=== PATIENT | male | born 1970 | race Caucasian/White ===

== ENCOUNTER 2016-02-18 06:16 | Inpatient (IN) | payer OTHER ==
[~2016-02-18] VITALS: Ht 177.8 cm; Wt 106.3 kg
[2016-02-18] VITALS (25 sets, daily range): BP systolic 109–160; BP diastolic 64–90; PULSE 76–87; RESP 12–16; TEMP 97.9
[2016-02-18] MEDS ORDERED: ONDANSETRON 4 MG INJ IV STA (06:59)
[2016-02-18] MEDS ORDERED: BELLADONNA/PHENOBARBITAL TAB PO STA (06:59)
[2016-02-18] MEDS ORDERED: LIDOCAINE/MYLANTA 40 ML BTL PO STA (06:59)
[2016-02-18] MEDS ORDERED: SOD CHLORIDE 0.9% 1,000 ML IV STA (06:59)
[2016-02-18] MEDS ORDERED: morphine 4 MG/ML VIAL IV STA (06:59)
[2016-02-18] MEDS ORDERED: ROCURONIUM 50 MG INJ ONE (07:00)
[2016-02-18] MEDS ORDERED: ETOMIDATE 20 MG INJ ONE (07:00)
[2016-02-18 07:19] LABS: BASOPHIL # 0.3 10^3/ul (0.0-0.1); BASOPHILS % 2.1 % (0.0-2.0); EOSINOPHILS % 0.3 % (0.0-7.0); HEMATOCRIT 37.8 % (42.0-52.0); LYMPHOCYTES # 1.4 10^3/ul (0.8-2.9); LYMPHOCYTES % 10.1 % (15.0-51.0); MEAN CORPUSCULAR HEMOGLOBIN 25.4 pg (29.0-33.0); MEAN CORPUSCULAR HGB CONC 31.8 g/dl (32.0-37.0); MEAN CORPUSCULAR VOLUME 79.8 fl (82.0-101.0); MEAN PLATELET VOLUME 8.7 fl (7.4-10.4); MONOCYTE # 0.8 10^3/ul (0.3-0.9); MONOCYTES % 5.8 % (0.0-11.0); NEUTROPHIL # 11.6 10^3/ul (1.6-7.5); NEUTROPHILS % 81.7 % (39.0-77.0); PLATELET COUNT 237 10^3/UL (140-440); RED BLOOD COUNT 4.74 10^6/ul (4.70-6.10); UNCORRECTED WBC 14.1 10^3/ul (4.8-10.8); WHITE BLOOD COUNT 14.1 10^3/ul (4.8-10.8)
[2016-02-18 07:25] LABS: CONDITION 1; LH ANALYZER COMMENTS 1
[2016-02-18 07:31] LABS: PROTIME 13.2 Sec (12.2-14.2)
[2016-02-18 07:32] LABS: ALBUMIN 4.1 g/dl (3.3-4.9); PARTIAL THROMBOPLASTIN TIME 30.9 Sec (25.0-35.0); POTASSIUM 3.7 mmol/L (3.5-5.1)
[2016-02-18 07:35] LABS: ALBUMIN/GLOBULIN RATIO 1.2; CALCIUM 8.4 mg/dl (8.4-10.2); CREATININE 1.18 mg/dl (0.61-1.24); TOTAL PROTEIN 7.5 g/dl (6.1-8.1)
--- NOTE | 2016-02-18 07:38 | ERD ---
ER Documentation Chief Complaint Date/Time DATE: 02/18/16 TIME: 07:33 Chief Complaint ABD PAIN, ELEVATED BP, STATES HAS BEEN OUT OF BP MEDS HPI This is a 45-year-old male with a known history of hypertension. One year ago the patient was diagnosed with high blood pressure and placed on labetalol 100 mg twice a day and amlodipine 10 mg once daily. The patient indicates that 5 days ago he ran out of his antihypertensive medications. He does not have a primary care physician to refill his medicines. He denies a headache or changes in vision. He does indicate that 6 hours prior to arrival he developed a sudden onset of diffuse abdominal pain. He described the pain is cramping in sensation. There is no alleviating or exacerbating factors the pain. He has had a decreased appetite since the pain. The pain occurred 30 minutes after he ate salmon and rice. He denies any diarrhea or constipation. He is felt nauseous but denies any emesis. He has no chest pain or pressure that radiates to the neck arm back or jaw and he has no shortness of breath at rest or exertion. He denies polyuria polydipsia. ROS All systems reviewed and are negative except as per history of present illness. Allergies Allergies: Coded Allergies: No Known Allergy (Unverified , 02/18/16) PMhx/Soc Medical and Surgical Hx: pt denies Surgical Hx Hx Cardiac Disorders: Yes (htn) Hx Alcohol Use: No Hx Substance Use: No Hx Tobacco Use: No Smoking Status: Never smoker Physical Exam Vitals Vital Signs Date Time Temp Pulse Resp B/P Pulse Ox O2 Delivery O2 Flow Rate FiO2 02/18/16 09:59 69 182/116 02/18/16 09:53 72 19 174/102 99 Room Air 02/18/16 09:42 68 18 191/100 99 Room Air 02/18/16 09:34 75 17 186/120 100 Room Air 02/18/16 09:29 71 18 216/110 99 Room Air 02/18/16 09:24 71 17 205/120 100 Room Air 02/18/16 08:27 75 19 198/110 99 Room Air 02/18/16 06:29 98.0 76 17 253/129 99 Physical Exam Constitutional:Well-developed. Well-nourished. HEENT:Normocephalic. Atraumatic.Pupils were equal round reactive to light. Moist mucous membranes.No tonsillar exudates. Funduscopy exam showed sharp optic disc bilaterally and venous pulsations were present. Neck: No nuchal rigidity. No lymphadenopathy. No posterior cervical spine tenderness or step-offs. Respiratory: Not using accessory muscles of respiration.Lungs were clear to auscultation bilaterally. No rhonchi. No rales. No wheezing. Cardiovascular: Regular rate regular rhythm.No murmurs. No rubs were appreciated.S1, S2 normal. Distal pulses are palpable 2+ bilaterally. GI: Abdomen was soft. Nontender. Diffuse abdominal tenderness most prominent in the left lower quadrant. No pulsatile abdominal masses or bruits. No rebound. No guarding. Bowel sounds were present and normal. Muscle skeletal: Full range of motion of both the upper and lower extremities bilaterally.Normal muscle tone.No assymetrical calf tenderness or swelling. Skin: No petechia, no purpura. No lesions on the palms or the soles of the feet. No maculopapular rash. No diaphoresis NEURO: Patient was alert, awake, orientated x3.No facial droop. Gait observed and normal with no ataxia.Speech had regular rate and rhythm. No focal neurological deficits. Result Diagram: 02/18/16 0700 02/18/16 0700 Results 24 hrs Laboratory Tests Test 02/18/16 07:00 02/18/16 07:45 Activated Partial Thromboplast Time 30.9Sec Alanine Aminotransferase (ALT/SGPT) 20IU/L Albumin 4.1g/dl Albumin/Globulin Ratio 1.20 Alkaline Phosphatase 98IU/L Amylase Level 77U/L Anion Gap 12 Aspartate Amino Transf (AST/SGOT) 21IU/L Basophils # 0.310^3/ul Basophils % 2.1% Blood Morphology Comment Blood Urea Nitrogen 15mg/dl Calcium Level 8.4mg/dl Carbon Dioxide Level 31mmol/L Chloride Level 101mmol/L Creatinine 1.18mg/dl Direct Bilirubin 0.00mg/dl Eosinophils # 0.010^3/ul Eosinophils % 0.3% Globulin 3.40g/dl Glucose Level 136mg/dl Hematocrit 37.8% Hemoglobin 12.0g/dl INR International Normalized Ratio 1.00 Indirect Bilirubin 1.0mg/dl Lipase 52U/L Lymphocytes # 1.410^3/ul Lymphocytes % 10.1% Mean Corpuscular Hemoglobin 25.4pg Mean Corpuscular Hemoglobin Concent 31.8g/dl Mean Corpuscular Volume 79.8fl Mean Platelet Volume 8.7fl Monocytes # 0.810^3/ul Monocytes % 5.8% Neutrophils # 11.610^3/ul Neutrophils % 81.7% Nucleated Red Blood Cells # 0.010^3/ul Nucleated Red Blood Cells % 0.0/100WBC Platelet Count 11706^3/UL Potassium Level 3.7mmol/L Prothrombin Time 13.2Sec Prothrombin Time Ratio 1.0 Red Blood Count 4.7410^6/ul Red Cell Distribution Width 18.0% Sodium Level 140mmol/L Total Bilirubin 1.0mg/dl Total Protein 7.5g/dl Troponin I 0.026ng/ml White Blood Count 14.110^3/ul Urine Bilirubin NEGATIVE Urine Clarity CLEAR Urine Color LT. YELLOW Urine Glucose NEGATIVE% Urine Hemoglobin TRACE Urine Ketones NEGATIVE Urine Leukocyte Esterase NEGATIVE Urine Microscopic RBC NONE SEEN/HPF Urine Microscopic WBC NONE SEEN/HPF Urine Nitrite NEGATIVE Urine Specific Ernest 1.010 Urine Total Protein NEGATIVE Urine Urobilinogen 0.2 E.U./dL Urine pH 6.0 Current Medications Medications (Trade) Dose Ordered Sig/Jimmie Route PRN Reason Start Time Stop Time Status Last Admin Dose Admin Sodium Chloride (NS) 1,000 ml @ 1,000 mls/hr Q1H STAT IV 02/18/16 06:59 02/18/16 07:58 DC 02/18/16 07:11 Morphine Sulfate (morphine) 4 mg ONCE STAT IV 02/18/16 06:59 02/18/16 07:00 DC 02/18/16 07:12 Ondansetron HCl (Zofran Inj) 4 mg ONCE STAT IV 02/18/16 06:59 02/18/16 07:01 DC 02/18/16 07:11 Miscellaneous Medication (Gi Cocktail (2)) 40 ml ONCE STAT PO 02/18/16 06:59 02/18/16 07:01 DC 02/18/16 07:12 Belladonna/ Phenobarbital () 2 tab ONCE STAT PO 02/18/16 06:59 02/18/16 07:01 DC 02/18/16 07:12 Hydralazine HCl (Apresoline) 10 mg ONCE ONCE IV 02/18/16 08:00 02/18/16 08:01 DC 02/18/16 07:54 Iohexol 150 ml 150 ml STK-MED ONCE .ROUTE 02/18/16 07:49 02/18/16 07:50 DC Sodium Chloride (NS) 100 ml @ ud STK-MED ONCE .ROUTE 02/18/16 07:49 02/18/16 07:50 DC Labetalol HCl (Labetalol) 20 mg ONCE ONCE IV 02/18/16 09:00 02/18/16 09:01 DC 02/18/16 08:42 Labetalol HCl (Labetalol) 20 mg ONCE ONCE IV 02/18/16 09:00 02/18/16 09:01 DC 02/18/16 08:58 Labetalol HCl 20 mg 20 mg ONCE ONCE IV 02/18/16 09:00 02/18/16 09:01 DC 02/18/16 09:00 Esmolol HCl/ Sodium Chloride 250 ml @ 86.4 mls/hr ONCE STAT IV 02/18/16 08:55 02/18/16 11:48 02/18/16 09:17 Iohexol 100 ml @ ud STK-MED ONCE .ROUTE 02/18/16 08:57 02/18/16 08:58 DC Sodium Chloride 100 ml @ ud STK-MED ONCE .ROUTE 02/18/16 08:57 02/18/16 08:58 DC Sodium Chloride (NS) 1,000 ml @ 50 mls/hr Q20H IV 02/18/16 09:13 Ondansetron HCl (Zofran Inj) 4 mg Q6H PRN IV NAUSEA AND/OR VOMITING 02/18/16 09:30 Acetaminophen (Tylenol Supp) 650 mg Q4H PRN [place] PAIN LEVEL 1-3 OR FEVER 02/18/16 09:30 Morphine Sulfate (morphine) 2 mg Q4H PRN IV PAIN LEVEL 7-10 02/18/16 09:30 Lorazepam (Ativan) 1 mg Q2H PRN IV ANXIETY 02/18/16 09:30 Bisacodyl (Dulcolax Supp) 10 mg DAILY PRN [place] CONSTIPATION 02/18/16 09:30 Pantoprazole 40 mg 40 mg DAILY@06 IV 02/19/16 06:00 Esmolol HCl/ Sodium Chloride (Brevibloc) 250 ml @ 28.8 mls/hr TITRATE IV 02/18/16 09:30 Metoprolol Tartrate (Lopressor) 5 mg ONCE ONCE IV 02/18/16 10:00 02/18/16 10:01 DC 02/18/16 09:49 Procedures/MDM This patient presented to the emergency department with abdominal pain and was seen and evaluated by myself. My differential diagnosis included but was not limited to abdominal aortic aneurysm, appendicitis, pancreatitis, perforated peptic ulcer, perforated viscus, Boerhaaves syndrome or visceral pain such as diverticulitis, DKA, esophagitis, hepatitis or bowel obstruction. The patient was placed on a palliative senior np, continuous pulse oximetry, and IV access was established by nursing staff. The patient received intravenous morphine and Zofran. 12 Lead EKG tracing ordered and reviewed by myself showed: Normal sinus rhythm of 67 bpm and no arrhythmia. VA interval normal. QRS duration normal. No ST segment elevation. T-wave inversion in the lateral leads V6 No ST segment depression. This patient presented to the emergency department with severely elevated blood pressure in addition to his abdominal discomfort. My differential diagnosis included but was not limited to conditions that could end-organ damage such as acute coronary syndrome, acute pulmonary edema, aortic dissection, subarachnoid hemorrhage, intracerebral hemorrhage, cerebral infarction, withdrawal syndromes from beta blockers, or states of catecholamine excess such as pheochromocytoma or drug intoxication. I did obtain a CT scan of the abdomen given that he had abdominal pain. I spoke with the radiologist and reviewed the CT scan myself and the radiologist, Dr. Maguire, and I spoke at 8:29 AM. The patient had an acute dissection of the abdominal aorta that extended to the level of the infrarenal abdominal aorta. The patient had uncontrolled hypertensive with end-organ damage to suggest hypertensive emergency. The treatment goal was immediate reduction of the mean arterial blood pressure. The patient had been given IV labetalol and was placed on an esmolol drip. This was done in a controlled, graded manor, using improvement of the patient's condition as a guide. Dr. Means, the CV surgeon, kindly stated he will be consult on the case. He did request a CTA to be performed in order to rule out an ascending aortic dissection. The patients abdominal pain had resolved with IV morphine. CTA results are read for the radiologist and indicated the followin. 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 The largest diameter measures 4.5 cm. There is mild intramural hemorrhage of the aneurysm. 2. Cardiomegaly. Left ventricular hypertrophy. The patient will be admitted in serious condition to the intensive care unit under the care of the hospitalist with an anticipated stay of greater than 2 midnights. Critical Care: Time: 60 minutes Treatments/Evaluations: Close monitoring and treatment of unstable vital signs, cardiorespiratory, and neurologic status, while maintaining tight balance of fluid, respiratory, and cardiac interventions. 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
[2016-02-18 07:47] LABS: TROPONIN-I 0.026 ng/ml (0.00-0.12)
[2016-02-18] MEDS ORDERED: IOHEXOL 300MG/ML 150 ML BTL ONE (07:49)
[2016-02-18] MEDS ORDERED: SOD CHLORIDE 0.9% 100 ML ONE ×2 (07:49→08:57)
[2016-02-18] MEDS ORDERED: hydrALAzine 20 MG INJ IV ONE (08:00)
[2016-02-18 08:13] LABS: ADD UMIC YES; URINE BILIRUBIN (Dip) NEGATIVE (NEGATIVE); URINE BLOOD (Dip) TRACE (NEGATIVE); URINE COLOR LT. YELLOW (YELLOW); URINE GLUCOSE (Dip) NEGATIVE (NEGATIVE); URINE KETONES (Dip) NEGATIVE (NEGATIVE); URINE LEUKOCYTE ESTERASE (Dip) NEGATIVE (NEGATIVE); URINE NITRITE (Dip) NEGATIVE (NEGATIVE); URINE TOTAL PROTEIN (Dip) NEGATIVE (NEGATIVE); URINE UROBILINOGEN (Dip) 0.2 E.U./dL (0.1-1.0)
--- NOTE | 2016-02-18 08:34 | RADRPT ---
PROCEDURE: CT Abdomen and Pelvis with contrast. CLINICAL INDICATION: Abdominal pelvic pain. Hypertension. TECHNIQUE: CT scan of the abdomen and pelvis with contrast was performed on a multi-detector high- resolution CT scanner. The patient was scanned following the uncomplicated intravenous administrati on of 100 cc of Omnipaque 300. Coronal and sagittal reformatted images were obtained from the axial source images. Images were reviewed on a high-resolution PACS workstation. The total exam CTDI equa ls 16.85 mGy and the total exam DLP equals 996.76 mGy-cm. COMPARISON: None. FINDINGS: CT abdomen: The lung bases are remarkable for mild scarring and atelectasis within the lung bases bilaterally. The heart size is normal, with a minimal tiny pericardial effusion. Aortic dissection of the descen ding thoracic aorta is identified. There is enhancement of both the true lumen and false lumen of th e aortic dissection. Atelectasis is seen in the left lung base adjacent to the descending thoracic a [place]. The liver is normal in size and density without focal mass or intrahepatic biliary dilatation. The spleen is normal in size and homogeneous in density. The stomach is partially collapsed, but is andres ssly unremarkable. The pancreas as visualized is normal. The gallbladder and biliary tree are unre markable and there is no evidence for biliary dilatation. The adrenal glands are symmetric and norm al. The kidneys are symmetrically unremarkable as well. No renal calculus or obstructive uropathy or mass lesion is seen. Acute dissection of the abdominal aorta is identified extending down to the level of the infrarenal abdominal aorta. There is enhancement of the true lumen and false lumen of the aortic dissection. T here is no retroperitoneal lymphadenopathy. The jumana hepatis region is clear. The bowel and mesen mika, as visualized, are equally unremarkable. CT pelvis: The small bowel loops situated within the pelvis are unremarkable. The appendix is normal. The pel álvaro organs are normal. The pelvic sidewalls and inguinal regions are clear. The sigmoid colon and rectum are unremarkable. No mass, lymphadenopathy, or free fluid is seen. No acute inflammation is seen. The bladder is normal. The surrounding osseous structures are unremarkable. No osteolytic o r osteoblastic lesion is detected. IMPRESSION: 1. Acute aortic dissection of the visualized portions of the descending thoracic aorta and abdomina l aorta extending down to the level of the infrarenal abdominal aorta. 2. Otherwise, unremarkable CT scan of the abdomen and pelvis. Critical result was called to Dr. Avery in the ER at 8:29 a.m. on 02/18/2016. RPTAT: [id number] .Alessandro Maguire MD, Date Time Electronically viewed and signed by .Alessandro Maguire MD, on 02/18/2016 08:34 .B/
[2016-02-18 08:36] LABS: URINE RBCS NONE SEEN /HPF (0)
[2016-02-18] MEDS ORDERED: ESMOLOL 250 ML IV STA (08:55)
[2016-02-18] MEDS ORDERED: IOHEXOL 100 ML ONE (08:57)
[2016-02-18] MEDS ORDERED: LABETALOL HCL 20MG INJ IV ONE ×3 (09:00)
[2016-02-18] MEDS ORDERED: ONDANSETRON 4 MG INJ IV PRN (09:30)
[2016-02-18] MEDS ORDERED: ACETAMINOPHEN 650 MG SUPP PR PRN (09:30)
[2016-02-18] MEDS ORDERED: BISACODYL 10 MG SUPP PR PRN (09:30)
--- NOTE | 2016-02-18 09:53 | RADRPT ---
PROCEDURE: CT Thoracic Angiogram. CLINICAL INDICATION: Back pain/dissecting aneurysm of the abdominal aorta. TECHNIQUE: CT thoracic aortic angiogram and a CT scan of the chest with contrast was performed on the [employer] volumetric [address] scanner. The patient was scanned following the uncomplicated intraven ous administration of 100 cc of [id number] intravenous contrast. 2-D, 3-D coronal reformatted hamlet ges were obtained from the axial source images. Radiation dose: Total CTDIvol: 69.5 mGy. Total DLP: 516 mGy-cm. 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 The largest diameter measures 4.5 cm . There is mild intramural hemorrhage of the aneurysm. The aortic annulus measures 2.4 cm in diameter. The aortic sinuses of Valsalva measures 3.5 cm in diameter. The sinotubular junction measures 2.5 cm in diameter. The mid ascending aorta measures 3 cm in diameter. The higher ascending aorta measures 3.1 cm in diameter. The aortic arch measures 3.2 cm in diameter. The mid descending aorta measures 4.[address] chest: The lungs are clear. No focal opacification, effusion, pneumothorax, edema, or nodules are seen. T here is no acute infiltrate. The mediastinum is unremarkable without evidence for mass or lymphadenopathy. The vascular structur es of the mediastinum are normal in course and caliber. The heart size is enlarged without evidenc e for pericardial thickening or effusion. . There is left ventricular hypertrophy. There is no ca lcification of the coronary arteries. The axillary regions, subpectoral regions, and supraclavicular regions are all unremarkable. Imagin g obtained through the upper abdomen reveals no acute abnormality. The surrounding osseous structur es are unremarkable for mild degenerative spondylosis of the spine. No osteolytic or osteoblastic lesion is detected.. IMPRESSION: 1. 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 The largest diameter measures 4.5 cm. Th ere is mild intramural hemorrhage of the aneurysm. 2. Cardiomegaly. Left ventricular hypertrophy. 3. Critical finding was given to the ER physician, Dr. Avery, 09:49 a.m., 02/18/2016 RPTAT: GG .Blas Kline MD, MD Date Time Electronically viewed and signed by .Blas Kline MD, MD on 02/18/2016 09:53 .Y/
[2016-02-18] MEDS ORDERED: METOPROLOL 5 MG INJ IV ONE ×2 (10:00→10:30)
[2016-02-18] MEDS ORDERED: CLEVIDIPINE BUTYRATE 50 ML IV SCH (10:00)
[2016-02-18] MEDS: SOD CHLORIDE 0.9% 1,000 ML IV SCH (10:19)
[2016-02-18] MEDS ORDERED: NITROPRUSSIDE 50 MG in DEXTROSE 5% 248 ML IV STA (10:19)
--- NOTE | 2016-02-18 11:33 | HP ---
Date/Time of Note Date/Time of Note DATE: 02/18/16 TIME: 11:25 Assessment/Plan VTE Prophylaxis VTE Prophylaxis Intervention: SCD's Assessment/Plan Assessment/Plan 45 yo male with a past medical history essential hypertension who presents with abdominal pain. 1. Abdominal pain - 2/2 to dissection aortic aneurysm - place the patient in the ICU - consult vascular/CT surgery - IV antihypertensives to maintain systolic blood pressure below 140 and diastolic blood pressure less than 90. Monitor for acute changes/ 2. Hypertension essential - see # 1 3. Anemia - microcytic - check iron profile, stool occult blood - monitor for acute blood loss 4. Leukocytosis - reactive - monitor trend 5. GI ppx - protonix IV 6. DVT ppx - scds answered all of his questions. as per clinical course. this critical care note took greater than 1 hour to complete HPI/ROS Admit Date/Time Admit Date/Time 02/18/2016, 11:27 am Hx of Present Illness 45 yo male with a past medical history essential hypertension who presents with abdominal pain. The abdominal pain started abruptly, 8 hours ago, diffuse, 8/10 in intensity, sharp/shooting in nature, intermittent, with no alleviating factors. He denies any chest pain, but did have shortness of breath. Denies any nausea/vomiting/diarrhea/constipation, headaches, urinary irregularities, fevers /chills, direct trauma or other constitutional symptoms. ER Course: Patient had a CT abd/pelvis and CTA chest/thorax showing type B descending dissection - patient started on antihypertensives ROS 14 point review of systems completed, please refer to HPI for any positive findings PMH/Family/Social Past Medical History Medical History: hypertension Past Surgical History Past Surgical Hx: no surgical history Family History Significant Family History: heart disease (Mi father in 50's), hypertension ( brother) Social History Alcohol Use: none Smoking Status: Never smoker Drug Use: none Exam/Review of Systems Vital Signs Vitals Vital Signs Date Time Temp Pulse Resp B/P Pulse Ox O2 Delivery O2 Flow Rate FiO2 02/18/16 11:21 80 17 158/94 100 Room Air 02/18/16 06:29 98.0 Exam Exam Gen Jack: mild distress 2/2 abdominal pain, AAOx4 HEENT: NC/AT, PERRLA, EOMI, no pharyngeal erythema, no tonsillar exudates, no lymphadenopathy, no JVD, no carotid bruits NECK: supple, no thyromegaly THORAX: symmetrical, no obvious deformities CV: S1S2, RRR, II/ systolic murmur best heard over aortic area Lungs: CTAB no W/C/R/R Abd: soft, mild tenderness to deep palpation, non-distended, +BS EXT: no edema, no ecchymosis, no clubbing, FROM, good peripheral pulses Neuro: CN II-XII grossly intact, no focal deficits Psych: fair mood and affect Skin: C/D/I Labs Result Diagram: 02/18/16 0700 02/18/16 0700 Medications Medications Current Medications Sodium Chloride (NS) 1,000 ml @ 50 mls/hr Q20H IV Last administered on at 10:19; Admin Dose 50 MLS/HR; Start 02/18/16 at 09:13 Ondansetron HCl (Zofran Inj) 4 mg Q6H PRN IV NAUSEA AND/OR VOMITING; Start 02/18/16 at 09:30 Acetaminophen (Tylenol Supp) 650 mg Q4H PRN [place] PAIN LEVEL 1-3 OR FEVER; Start 02/18/16 at 09:30 Morphine Sulfate (morphine) 2 mg Q4H PRN IV PAIN LEVEL 7-10; Start 02/18/16 at 09:30 Lorazepam (Ativan) 1 mg Q2H PRN IV ANXIETY; Start 02/18/16 at 09:30 Bisacodyl (Dulcolax Supp) 10 mg DAILY PRN [place] CONSTIPATION; Start 02/18/16 at 09 :30 Pantoprazole 40 mg 40 mg DAILY@06 IV ; Start 02/19/16 at 06:00 Esmolol HCl/ Sodium Chloride (Brevibloc) 250 ml @ 28.8 mls/hr TITRATE IV ; Start 02/18/16 at 09:30 Procedures Procedures CTA thorax/chest IMPRESSION: 1. 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 The largest diameter measures 4.5 cm. There is mild intramural hemorrhage of the aneurysm. 2. Cardiomegaly. Left ventricular hypertrophy. CT abd/pelvis IMPRESSION: 1. Acute aortic dissection of the visualized portions of the descending thoracic aorta and abdominal aorta extending down to the level of the infrarenal abdominal aorta. 2. Otherwise, unremarkable CT scan of the abdomen and pelvis. TIFFANIE HEARD MD Feb 18, 2016 11:33
[2016-02-18 12:31] LABS: IRON 24 ug/dl (35-150)
[2016-02-18 12:41] LABS: TOTAL IRON BINDING CAPACITY 270 ug/dl (241-421)
[2016-02-18 13:03] LABS: THYROID STIMULATING HORMONE 2.51 MIU/L (0.465-4.680)
[2016-02-18 13:07] LABS: FERRITIN 53.1 ng/ml (17.9-464.0)
--- NOTE | 2016-02-18 14:53 | CONS ---
DATE OF ADMISSION: 02/18/2016 DATE OF CONSULTATION: 02/18/2016 REASON FOR CONSULTATION: Preoperative cardiac clearance. HISTORY OF PRESENT ILLNESS: The patient is a 45-year-old gentleman who comes in with acute onset of abdominal pain at around 6 a.m. on 02/18/2016, associated with shortness of breath. Denies dizzine ss, syncope or palpitation. Denies nausea, vomiting. Denies fever, chills, or rigors. The patient has history of hypertension and stopped taking his medication about 5 days ago since he had not ref illed. PAST MEDICAL HISTORY: 1. Hypertension. 2. No prior history of dyslipidemia, diabetes or myocardial infarction. SOCIAL HISTORY: Denies any smoking, alcohol, or recreational drug. ALLERGIES: NONE. CURRENT MEDICATIONS: Include: 1. Nitroprusside. 2. Protonix. REVIEW OF SYSTEMS: Unremarkable except that mentioned in the HPI. PHYSICAL EXAMINATION: VITAL SIGNS: Temperature is 98.4, heart rate of 75, blood pressure 137/71 mmHg, breathing at 19, sa turating at 100% on room air. GENERAL: Patient awake, alert, in no apparent distress. NECK: No JVD or carotid bruit. CARDIOVASCULAR: Regular rate and rhythm, no murmur, rub or gallop. LUNGS: Clear to auscultation. ABDOMEN: Soft. Bowel sounds are present. There is no organomegaly. EXTREMITIES: No pedal edema. Pedal pulses are felt bilaterally. DIAGNOSTIC STUDIES: 1. Review of 12-lead EKG shows sinus rhythm with a ventricular rate of 67 beats per minute with nor mal [place], normal QRS and normal QT intervals, with T-wave inversion in lead V6 and lead 1 in aVL and [address] of abdomen and pelvis with contrast shows acute aortic dissection of the descending aorta a nd abdominal aorta. 3. CTA shows a [place] type B dissecting aneurysm of the aorta extending from below the level of t he left subclavian artery, below the level of the diaphragm, the largest diameter being 4.5 cm with mild intra hemorrhage. LABORATORY DATA: WBC 14.1, hemoglobin 12, hematocrit 37.8 with a platelet of 237. Sodium 140, pota ssium 3.7, chloride 101, CO2 31, BUN 15, creatinine 1.18. Troponin x2 is negative. ASSESSMENT AND PLAN: A 45-year-old gentleman with a [place] type B dissecting aneurysm with hypert ensive urgency. Currently, the patient is hemodynamically stable. RECOMMENDATIONS: 1. Continue nitroprusside. 2. Awaiting CT surgery for repair. 3. Monitor the patient in ICU. 4. Echocardiogram has been ordered and is pending at the time of this dictation. Dictated By: ESTEFANIA ALLEN MD SR/EFRAIN Conf#: [id number] DID#: [id number]
--- NOTE | 2016-02-18 15:53 | CONS ---
DATE OF ADMISSION: 02/18/2016 DATE OF CONSULTATION: REASON FOR CONSULTATION: Aortic dissection. Thank you, Dr. Avery, for asking me to see this patient. HISTORY OF PRESENT ILLNESS: This is a 45-year-old male currently on hypertensive medications. He w as admitted because of severe abdominal pain, no chest pain, no shortness of breath. Subsequently h e had an abdominal CT scan which showed dissection of the visualized portion of the descending thora cic aorta and abdominal aorta, extending down into the level of the infrarenal abdominal aorta. 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 The patie nt's blood pressure was 220, was started on esmolol and subsequently nitroglycerin. Currently, his blood pressure is 97/57, pulse is 73, respirations 19, saturations 100. PAST MEDICAL HISTORY: Significant for hypertension, anemia, leukocytosis. PAST SURGICAL HISTORY: None. ALLERGIES: NONE. SOCIAL HISTORY: No smoking, drinking or drug use. MEDICATIONS: List reviewed. PHYSICAL: VITAL SIGNS: As above. CARDIOVASCULAR: Regular rate and rhythm, normal S1, S2. No murmurs, gallops or rubs. LUNGS: Clear. ABDOMEN: Soft. EXTREMITIES: palpable femoral pulses. LABORATORY VALUES: Hemoglobin 12, white count 14, platelet count 237. Normal coagulation factors a nd a creatinine of 1.18. IMPRESSION: Type B aortic dissection. The patient's blood pressure has come nicely under control u sing esmolol and nitroglycerin drip. RECOMMENDATIONS: At this time, we would continue blood pressure management, monitor vital signs and laboratory values in an intensive care unit setting. I discussed with the patient and Dr. Avery . Dictated By: KAYLYN ALVA/EFRAIN Conf#: [id number] DID#: [id number]
--- NOTE | 2016-02-18 16:22 | RADRPT ---
Echocardiogram Report Patient Name: ИРИНА HAIRSTON Gender: Male Date: 1970 Study Date: 18-Feb-2016 Radio News Writer: Location: E Ref. Physician: MARTÍN ALLEN Quality: Good Procedures: Transthoracic echocardiogram with complete 2D, M-Mode, and doppler examination. Indications: Aortic Dissection. 2D/M Mode Doppler Measurement Value Normal Ranges Measurement Value Normal Ranges LVIDd MM 5.1 cm AV Mean Philip 1.3 m/sec LVIDs MM 3.0 cm AV Mean PG 8.0 mmHg LVPW % MM 23 % AV Peak Philip 2.1 m/sec IVSd MM 1.6 cm AV Peak PG 17.0 mmHg IVS/LVPW MM 1.1 AV VTI 39.1 cm AoR Diam MM 3.1 cm MV E Peak Philip 0.1 m/sec LA/Ao MM 1.7 MV A Peak Philip 0.0 m/sec LA Dimen MM 5.2 cm MV E/A 1.5 LVIDd 2D 5.0 3.5 - 5.6 cm MV Decel Cameron 4 LVIDs 2D 2.5 2.1 - 4.1 cm MV E/A 1.5 LVPWd 2D 1.4 0.6 - 1.1 cm TR Peak Philip 1.8 m/sec LVPWs 2D 1.8 cm TR Peak PG 13.0 mmHg IVSd 2D 2.0 0.6 - 1.1 cm RVSP 18.0 mmHg AoR Diam 2D 3.3 2.0 - 3.7 cm LA/Ao 2D 1 0 - 1 LA Dimen 2D 4.4 2.3 - 4.0 cm Findings Left Ventricle: Hyperdynamic left ventricular systolic function. Moderate concentric left ventricular hypertrophy. Tissue Doppler/Mitral Doppler indices are consistent with impaired relaxation (Stage I diastolic dysfunction). Right Ventricle: Normal right ventricular size. Normal right ventricular systolic function. Left Atrium: There is mild enlargement of left atrium. LA Dimension4.40 cm. Right Atrium: The right atrium is normal in size. Mitral Valve: Normal appearance and function of the mitral valve with trace physiologic regurgitation. Aortic Valve: Aortic valve not well visualized. Trace aortic valve regurgitation. Tricuspid Valve: Normal appearance and function of the tricuspid valve with trace physiologic regurgitation. Estimated peak PA systolic pressure 18 mmHg. There is trace tricuspid regurgitation. Pulmonic Valve: Pulmonic valve not well visualized. There is mild pulmonic regurgitation. Pericardium: Small pericardial effusion. No echocardiographic evidence to suggest pericardial tamponade. Aorta: There is a dissection of the aorta limited to the descending aorta. Aortic arch is mildly dilated. Aortic arch 3.90 cm. IVC: Normal size and normal respiratory collapse consistent with normal right atrial pressure. Pulmonary Artery: Mild enlargement of the pulmonary artery. Conclusions 1.Hyperdynamic left ventricular systolic function. Estimated LVEF 65%. Moderate concentric left ventricular hypertrophy. Tissue Doppler/Mitral Doppler indices are consistent with impaired relaxation (Stage I diastolic dysfunction). 2.Normal right ventricular size. Normal right ventricular systolic function. 3.Normal appearance and function of the mitral valve with trace physiologic regurgitation. 4.Aortic valve not well visualized. Trace aortic valve regurgitation. 5.Normal appearance and function of the tricuspid valve with trace physiologic regurgitation. Estimated peak PA systolic pressure 18 mmHg. There is trace tricuspid regurgitation. 6.Small pericardial effusion with no cardiac tamponade physiology. 7.There is a dissection of the aorta limited to the descending aorta. Aortic arch is mildly dilated. Aortic arch 3.90 cm. 8.Mild enlargement of the pulmonary artery. 9.Recommend KIERSTEN. Electronically Signed By: Mratín Allen 18-Feb-2016 16:22:02 -0800 Patient Name: ИРИНА HAIRSTON Study Date: 18-Feb-2016 [id number]
[2016-02-18] MEDS: ESMOLOL 250 ML IV SCH ×5 (16:52→23:24)
[2016-02-18] MEDS ORDERED: CLEVIDIPINE BUTYRATE 100 ML IV SCH ×2 (18:30→19:00)
[2016-02-18] MEDS: CLEVIDIPINE BUTYRATE 100 ML IV SCH (20:16)
[2016-02-19] VITALS (91 sets, daily range): BP systolic 102–202; BP diastolic 49–115; PULSE 73–91; RESP 18–57
[2016-02-19] MEDS: ESMOLOL 250 ML IV SCH ×11 (00:58→23:19)
[2016-02-19] MEDS: CLEVIDIPINE BUTYRATE 100 ML IV SCH ×2 (02:29→05:31)
[2016-02-19 04:49] LABS: BASOPHIL # 0.3 10^3/ul (0.0-0.1); BASOPHILS % 2.1 % (0.0-2.0); EOSINOPHILS # 0.1 10^3/ul (0.0-0.5); EOSINOPHILS % 0.6 % (0.0-7.0); HEMATOCRIT 37.4 % (42.0-52.0); LYMPHOCYTES # 1.9 10^3/ul (0.8-2.9); LYMPHOCYTES % 11.5 % (15.0-51.0); MEAN CORPUSCULAR HEMOGLOBIN 25.3 pg (29.0-33.0); MEAN CORPUSCULAR HGB CONC 32.1 g/dl (32.0-37.0); MEAN CORPUSCULAR VOLUME 78.9 fl (82.0-101.0); MEAN PLATELET VOLUME 8.6 fl (7.4-10.4); MONOCYTE # 1.2 10^3/ul (0.3-0.9); MONOCYTES % 7.3 % (0.0-11.0); NEUTROPHIL # 13.2 10^3/ul (1.6-7.5); NEUTROPHILS % 78.5 % (39.0-77.0); PLATELET COUNT 249 10^3/UL (140-440); RED BLOOD COUNT 4.74 10^6/ul (4.70-6.10); RED CELL DISTRIBUTION WIDTH 18.4 % (11.5-14.5); UNCORRECTED WBC 16.8 10^3/ul (4.8-10.8); WHITE BLOOD COUNT 16.8 10^3/ul (4.8-10.8)
[2016-02-19 04:56] LABS: CONDITION 1; LH ANALYZER COMMENTS 1
[2016-02-19 04:58] LABS: ALBUMIN 3.8 g/dl (3.3-4.9)
[2016-02-19 04:59] LABS: POTASSIUM 3.3 mmol/L (3.5-5.1)
[2016-02-19 05:01] LABS: ALBUMIN/GLOBULIN RATIO 1.08; BILIRUBIN,INDIRECT 1.8 mg/dl (0-1.1); BILIRUBIN,TOTAL 1.8 mg/dl (0.2-1.3); CREATININE 1.44 mg/dl (0.61-1.24); TOTAL PROTEIN 7.3 g/dl (6.1-8.1)
[2016-02-19 05:02] LABS: CALCIUM 8.3 mg/dl (8.4-10.2)
[2016-02-19] MEDS: PANTOPRAZOLE 40 MG INJ IV SCH (06:01)
[2016-02-19] MEDS ORDERED: POTASSIUM CHLORIDE 250 ML IVPB ONE (06:30)
[2016-02-19] MEDS ORDERED: NITROPRUSSIDE 50 MG in DEXTROSE 5% 248 ML IV STA (06:53)
[2016-02-19] MEDS: SOD CHLORIDE 0.9% 1,000 ML IV SCH (07:45)
--- NOTE | 2016-02-19 11:34 | PN ---
Date/Time of Note Date/Time of Note DATE: 02/19/16 TIME: 11:25 Assessment/Plan VTE Prophylaxis VTE Prophylaxis Intervention: SCD's Lines/Catheters IV Catheter Type (from Nrs): Peripheral IV Assessment/Plan Chief Complaint/Hosp Course Assessment and plan 1. 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 Vascular surgeon is following. Patient still noted with hypertension controlled with nipride at this time. Follow up with cardiology recs. Hopeful transition off nipride. Continue to maintain systolic blood pressure less than 140 and diastolic less than 90. 2. Hypertensive urgency. We'll continue on antihypertensives. Hopeful transition off nipride. consider cardene drip instead 3. Iron deficiency anemia. We'll continue on iron supplement 4. Leukocytosis. Recurring. Remains afebrile. We'll follow up on blood culture 5. Hypokalemia. We will monitor and replete as needed 6. Acute kidney injury. Likely secondary to hemodynamics. We'll monitor renal panel. GERD prophylaxis: PPI DVT prophylaxis: SCDs Disposition and plan: On Nipride for now for uncontrolled hypertension. Titrate down as tolerated. Follow-up with cardiology recommendations. Continue ICU monitoring Discussed plan of care with Dr. Raymundo Critical care time: 30 minutes Problems: Subjective 24 Hr Interval Summary Free Text/Dictation No reports of abdominal pain at this time. Comfortable at present Exam/Review of Systems Vital Signs Vitals Vital Signs Date Time Temp Pulse Resp B/P Pulse Ox O2 Delivery O2 Flow Rate FiO2 02/19/16 11:00 81 19 137/69 100 Room Air 02/19/16 08:00 98.6 Intake and Output 02/18/16 02/18/16 02/19/16 15:00 23:00 07:00 Intake Total 1399.2 ml 2216.45 ml Output Total 1450 ml 600 ml 700 ml Balance -1450 ml 799.2 ml 1516.45 ml Exam General: No acute signs or symptoms of distress Eyes: pupils equal round, Anicteric sclera Neck: Supple nontender, no JVD Cardiac: S1, S2 auscultated, regular rhythm and rate Pulmonary: No coarse rhonchi or breathing auscultated GI: Abdomen soft nontender nondistended, bowel sounds active Extremities: No edema bilateral lower extremities Skin: Clean dry and intact Neurologic: Alert to person place and time and situation Results Result Diagram: 02/19/16 0436 02/19/16 0436 Results 24 hrs Laboratory Tests Test 02/18/16 15:20 02/18/16 21:30 02/19/16 04:36 Troponin I 0.021 0.092 Alanine Aminotransferase (ALT/SGPT) 29 Albumin 3.8 Albumin/Globulin Ratio 1.08 Alkaline Phosphatase 96 Anion Gap 11 Aspartate Amino Transf (AST/SGOT) 18 Basophils # 0.3 H Basophils % 2.1 H Blood Morphology Comment Blood Urea Nitrogen 16 Calcium Level 8.3 L Carbon Dioxide Level 26 Chloride Level 105 Creatinine 1.44 H Direct Bilirubin 0.00 Eosinophils # 0.1 Eosinophils % 0.6 Globulin 3.50 H Glucose Level 116 Hematocrit 37.4 L Hemoglobin 12.0 L Indirect Bilirubin 1.8 H Lymphocytes # 1.9 Lymphocytes % 11.5 L Mean Corpuscular Hemoglobin 25.3 L Mean Corpuscular Hemoglobin Concent 32.1 Mean Corpuscular Volume 78.9 L Mean Platelet Volume 8.6 Monocytes # 1.2 H Monocytes % 7.3 Neutrophils # 13.2 H Neutrophils % 78.5 H Nucleated Red Blood Cells # 0.0 Nucleated Red Blood Cells % 0.0 Platelet Count 249 Potassium Level 3.3 L Red Blood Count 4.74 Red Cell Distribution Width 18.4 H Sodium Level 139 Total Bilirubin 1.8 H Total Protein 7.3 White Blood Count 16.8 H Medications Medications Current Medications Sodium Chloride (NS) 1,000 ml @ 50 mls/hr Q20H IV Last administered on at 10:19; Admin Dose 50 MLS/HR; Start 02/18/16 at 09:13 Ondansetron HCl (Zofran Inj) 4 mg Q6H PRN IV NAUSEA AND/OR VOMITING; Start 02/18/16 at 09:30 Acetaminophen (Tylenol Supp) 650 mg Q4H PRN [place] PAIN LEVEL 1-3 OR FEVER; Start 02/18/16 at 09:30 Morphine Sulfate (morphine) 2 mg Q4H PRN IV PAIN LEVEL 7-10; Start 02/18/16 at 09:30 Lorazepam (Ativan) 1 mg Q2H PRN IV ANXIETY; Start 02/18/16 at 09:30 Bisacodyl (Dulcolax Supp) 10 mg DAILY PRN [place] CONSTIPATION; Start 02/18/16 at 09 :30 Pantoprazole 40 mg 40 mg DAILY@06 IV Last administered on 02/19/16at 06:01; Admin Dose 40 MG; Start 02/19/16 at 06:00 Esmolol HCl/ Sodium Chloride (Brevibloc) 250 ml @ 28.8 mls/hr TITRATE IV Last administered on 02/19/16at 10:30; Admin Dose 172.8 MLS/HR; Start 02/18/16 at 09: 30 REJI WADE Feb 19, 2016 11:34
--- NOTE | 2016-02-19 13:49 | CONS ---
Date/Time of Note Date/Time of Note DATE: 02/19/16 TIME: 13:40 Assessment/Plan Assessment/Plan Chief Complaint/Hosp Course Imp: 1.HTN emergency-NL EF by echo this admit 2.Aortic dissection-type B 3.abnl ecg-lateral TWI-negative troponin x 3 since admit 4.anxiety 5.ARF 6. Pericardial effusion by echo-small with NL EF Recc: -Tele in ICU -Contine esmolol/nipride IV -Will add IV diltiazem and follow HR/BP closely -Follow volume status closely -serial ecg's Problems: Consultation Date/Type/Reason Admit Date/Time Feb 18, 2016 at 09:14 Initial Consult Date 02/19/2016 Type of Consultation: cardiology Reason for Consultation HTN/Aortic Dissection Referring Provider: TIFFANIE HEARD MD Exam/Review of Systems Vital Signs Vitals Vital Signs Date Time Temp Pulse Resp B/P Pulse Ox O2 Delivery O2 Flow Rate FiO2 02/19/16 13:30 84 23 157/87 02/19/16 13:00 99 Room Air 02/19/16 12:00 99.0 Intake and Output 02/18/16 02/18/16 02/19/16 15:00 23:00 07:00 Intake Total 1399.2 ml 2216.45 ml Output Total 1450 ml 600 ml 700 ml Balance -1450 ml 799.2 ml 1516.45 ml Exam Review of Systems: CONSTITUTIONAL: No fevers, chills. PULMONARY: No sob CARDIOVASCULAR: No chest pain/palpitations GASTROINTESTINAL: No nausea/vomiting. GENITOURINARY: No hematuria/dysuria. MUSCULOSKELETAL: No myagias/arthalgias. PSYCHIATRIC: The patient denies depression. NEUROLOGIC: No weakness Constitutional: alert Psych: no complaints ENMT: mucosa pink and moist Neck: jvd (9cm water), supple Respiratory: clear to auscultation Cardiovascular: regular rate and rhythm Gastrointestinal: non-tender, soft Musculoskeletal: muscle tone (normal) Extremities: edema (none) Neurological: other (No focal deficits) Results Result Diagram: 02/19/16 0436 02/19/16 0436 Results 24 hrs Laboratory Tests Test 02/18/16 15:20 02/18/16 21:30 02/19/16 04:36 Troponin I 0.021 0.092 Alanine Aminotransferase (ALT/SGPT) 29 Albumin 3.8 Albumin/Globulin Ratio 1.08 Alkaline Phosphatase 96 Anion Gap 11 Aspartate Amino Transf (AST/SGOT) 18 Basophils # 0.3 H Basophils % 2.1 H Blood Morphology Comment Blood Urea Nitrogen 16 Calcium Level 8.3 L Carbon Dioxide Level 26 Chloride Level 105 Creatinine 1.44 H Direct Bilirubin 0.00 Eosinophils # 0.1 Eosinophils % 0.6 Globulin 3.50 H Glucose Level 116 Hematocrit 37.4 L Hemoglobin 12.0 L Indirect Bilirubin 1.8 H Lymphocytes # 1.9 Lymphocytes % 11.5 L Mean Corpuscular Hemoglobin 25.3 L Mean Corpuscular Hemoglobin Concent 32.1 Mean Corpuscular Volume 78.9 L Mean Platelet Volume 8.6 Monocytes # 1.2 H Monocytes % 7.3 Neutrophils # 13.2 H Neutrophils % 78.5 H Nucleated Red Blood Cells # 0.0 Nucleated Red Blood Cells % 0.0 Platelet Count 249 Potassium Level 3.3 L Red Blood Count 4.74 Red Cell Distribution Width 18.4 H Sodium Level 139 Total Bilirubin 1.8 H Total Protein 7.3 White Blood Count 16.8 H Medications Medications Current Medications Sodium Chloride (NS) 1,000 ml @ 50 mls/hr Q20H IV Last administered on at 10:19; Admin Dose 50 MLS/HR; Start 02/18/16 at 09:13 Ondansetron HCl (Zofran Inj) 4 mg Q6H PRN IV NAUSEA AND/OR VOMITING; Start 02/18/16 at 09:30 Acetaminophen (Tylenol Supp) 650 mg Q4H PRN [place] PAIN LEVEL 1-3 OR FEVER; Start 02/18/16 at 09:30 Morphine Sulfate (morphine) 2 mg Q4H PRN IV PAIN LEVEL 7-10; Start 02/18/16 at 09:30 Lorazepam (Ativan) 1 mg Q2H PRN IV ANXIETY; Start 02/18/16 at 09:30 Bisacodyl (Dulcolax Supp) 10 mg DAILY PRN [place] CONSTIPATION; Start 02/18/16 at 09 :30 Pantoprazole 40 mg 40 mg DAILY@06 IV Last administered on 02/19/16at 06:01; Admin Dose 40 MG; Start 02/19/16 at 06:00 Esmolol HCl/ Sodium Chloride (Brevibloc) 250 ml @ 28.8 mls/hr TITRATE IV Last administered on 02/19/16at 10:30; Admin Dose 172.8 MLS/HR; Start 02/18/16 at 09: 30 Ferrous Sulfate (Ferrous Sulfate (Ec)) 325 mg BID PO ; Start 02/19/16 at 21:00 JUNAID PAZ Feb 19, 2016 13:49
[2016-02-19] MEDS: LORAZEPAM 2 MG INJ IV PRN (13:51)
[2016-02-19] MEDS: DILTIAZEM-D5W 125MG/125ML DRIP 125 ML IV SCH ×2 (14:40→21:22)
[2016-02-19] MEDS: NITROPRUSSIDE 50 MG in DEXTROSE 5% 248 ML IV SCH ×2 (16:02→21:22)
--- NOTE | 2016-02-19 16:46 | PN ---
Date/Time of Note Date/Time of Note DATE: 02/19/16 TIME: 16:45 Assessment/Plan Lines/Catheters IV [facility]): Peripheral IV Assessment/Plan Chief Complaint/Hosp Course IMPRESSION: Type B aortic dissection. The patient's blood pressure has come nicely under control using esmolol and nitroglycerin drip. RECOMMENDATIONS: At this time, we would continue blood pressure management, monitor vital signs and laboratory values in an intensive care unit setting. I discussed with the patient and Dr. Lang Problems: Subjective 24 Hr Interval Summary Constitutional: improved Pain Control: mild Exam/Review of Systems Vital Signs Vitals Vital Signs Date Time Temp Pulse Resp B/P Pulse Ox O2 Delivery O2 Flow Rate FiO2 02/19/16 16:15 82 21 151/80 02/19/16 16:00 98.9 95 Room Air Intake and Output 02/18/16 02/18/16 02/19/16 15:00 23:00 07:00 Intake Total 1399.2 ml 2216.45 ml Output Total 1450 ml 600 ml 700 ml Balance -1450 ml 799.2 ml 1516.45 ml Exam ENMT: mucosa pink and moist, nl external ears & nose, nl lips & teeth, nl nasal mucosa & septum Neck: non-tender, supple Respiratory: clear to auscultation, normal air movement Cardiovascular: nl pulses, regular rate and rhythm Results Result Diagram: 02/19/16 0436 02/19/16 043 KAYLYN RADFORD MD Feb 19, 2016 16:46
[2016-02-19] MEDS: FERROUS SULFATE (EC) 325 MG TAB PO SCH (20:40)
[2016-02-20] VITALS (87 sets, daily range): BP systolic 108–180; BP diastolic 62–114; PULSE 67–85; RESP 18–31
[2016-02-20] MEDS: ESMOLOL 250 ML IV SCH ×15 (00:01→23:33)
[2016-02-20] MEDS: SOD CHLORIDE 0.9% 1,000 ML IV SCH ×2 (01:13→21:13)
[2016-02-20] MEDS: NITROPRUSSIDE 50 MG in DEXTROSE 5% 248 ML IV SCH ×5 (01:40→23:02)
[2016-02-20] MEDS: DILTIAZEM-D5W 125MG/125ML DRIP 125 ML IV SCH ×3 (04:31→21:07)
[2016-02-20 05:01] LABS: BASOPHIL # 0.6 10^3/ul (0.0-0.1); EOSINOPHILS % 0.1 % (0.0-7.0); HEMATOCRIT 33.5 % (42.0-52.0); HEMOGLOBIN 10.7 g/dl (14.0-18.0); LYMPHOCYTES # 1.5 10^3/ul (0.8-2.9); LYMPHOCYTES % 7.1 % (15.0-51.0); MEAN CORPUSCULAR HEMOGLOBIN 25.4 pg (29.0-33.0); MEAN CORPUSCULAR HGB CONC 31.8 g/dl (32.0-37.0); MEAN CORPUSCULAR VOLUME 79.8 fl (82.0-101.0); MEAN PLATELET VOLUME 8.7 fl (7.4-10.4); MONOCYTES % 9.4 % (0.0-11.0); NEUTROPHIL # 17.3 10^3/ul (1.6-7.5); NEUTROPHILS % 80.4 % (39.0-77.0); PLATELET COUNT 221 10^3/UL (140-440); RED CELL DISTRIBUTION WIDTH 17.8 % (11.5-14.5); UNCORRECTED WBC 21.5 10^3/ul (4.8-10.8); WHITE BLOOD COUNT 21.5 10^3/ul (4.8-10.8)
[2016-02-20 05:06] LABS: CONDITION 1; LH ANALYZER COMMENTS 1; SUSPECT 1
[2016-02-20 05:07] LABS: ALBUMIN 3.1 g/dl (3.3-4.9)
[2016-02-20 05:08] LABS: POTASSIUM 3.9 mmol/L (3.5-5.1)
[2016-02-20 05:10] LABS: BILIRUBIN,INDIRECT 1.7 mg/dl (0-1.1); BILIRUBIN,TOTAL 1.7 mg/dl (0.2-1.3); CREATININE 1.62 mg/dl (0.61-1.24); TOTAL PROTEIN 6.2 g/dl (6.1-8.1)
[2016-02-20] MEDS: PANTOPRAZOLE 40 MG INJ IV SCH (06:00)
[2016-02-20] MEDS: FERROUS SULFATE (EC) 325 MG TAB PO SCH ×2 (08:52→21:25)
--- NOTE | 2016-02-20 12:23 | PN ---
Date/Time of Note Date/Time of Note DATE: 02/20/16 TIME: 12:22 Assessment/Plan Lines/Catheters IV Catheter Type (from [facility]): Peripheral IV Assessment/Plan Chief Complaint/Hosp Course IMPRESSION: Type B aortic dissection. The patient's blood pressure has come nicely under control using esmolol and nitroglycerin drip. BP under better control RECOMMENDATIONS: At this time, we would continue blood pressure management, monitor vital signs and laboratory values in an intensive care unit setting. I discussed with the patient and Dr. Lang Problems: Subjective 24 Hr Interval Summary Constitutional: improved Pain Control: mild Exam/Review of Systems Vital Signs Vitals Vital Signs Date Time Temp Pulse Resp B/P Pulse Ox O2 Delivery O2 Flow Rate FiO2 02/20/16 12:00 72 02/20/16 07:00 28 131/76 99 Nasal Cannula 2.0 02/20/16 04:00 98.8 Intake and Output 02/19/16 02/19/16 02/20/16 15:00 23:00 07:00 Intake Total 2313.6 ml 2120.7 ml 1790.4 ml Output Total 350 ml 75 ml 500 ml Balance 1963.6 ml 2045.7 ml 1290.4 ml Exam ENMT: mucosa pink and moist, nl external ears & nose, nl lips & teeth, nl nasal mucosa & septum Neck: non-tender, supple Respiratory: clear to auscultation, normal air movement Cardiovascular: nl pulses, regular rate and rhythm Results Result Diagram: 02/20/16 0445 02/20/16 0445 KAYLYN RADFORD MD Feb 20, 2016 12:23
[2016-02-20] MEDS: LORAZEPAM 2 MG INJ IV PRN ×4 (14:27→21:19)
--- NOTE | 2016-02-20 14:37 | CONS ---
Date/Time of Note Date/Time of Note DATE: 02/20/16 TIME: 14:35 Assessment/Plan Assessment/Plan Additional Assessment/Plan 1.HTN emergency-NL EF by echo this admit - BP better - will initiate some po medications snow 2.Aortic dissection-type B - surgical team follows, no intervention planned now. 3.abnl ecg-lateral TWI-negative troponin x 3 since admit 4.anxiety- better now 5.ARF - avoid nephrotoxic meds 6. Pericardial effusion by echo-small with NL EF Consultation Date/Type/Reason Admit Date/Time Feb 18, 2016 at 09:14 Initial Consult Date Type of Consultation: cardiology Referring Provider: TIFFANIE HEARD MD 24 HR Interval Summary Free Text/Dictation No acute change - more alert - will add BP meds now. ROS: No fever, no chills, no nausea, no vomiting, no diarrhea/constipation No recent weight changes No chest pain, no PND, no orthopnea No dizziness, blurred vision No thirst, no heat or cold intolerance Exam/Review of Systems Vital Signs Vitals Vital Signs Date Time Temp Pulse Resp B/P Pulse Ox O2 Delivery O2 Flow Rate FiO2 02/20/16 12:30 73 22 108/66 91 Nasal Cannula 2.0 02/20/16 08:00 98.8 Intake and Output 02/19/16 02/19/16 02/20/16 15:00 23:00 07:00 Intake Total 2313.6 ml 2120.7 ml 1790.4 ml Output Total 350 ml 75 ml 500 ml Balance 1963.6 ml 2045.7 ml 1290.4 ml Exam General: WN/WD/NAD, AOx2-3 HEENT: Unicetric/atraumatic/EOMI (does not follow commands) NECK: JVD elevated, no thyromegaly Lymph: no lymphadenopathy HEART: regular with no S3, II/ systolic murmur at apex LUNGS: Coarse sounds ABD: soft, NT, ND, +BS : Intact Neuro: non focal SKIN: chronic changes EXT: trace edema Results Result Diagram: 02/20/1644402/20/16444 Results 24 hrs Laboratory Tests Test 02/20/16 04:45 Alanine Aminotransferase (ALT/SGPT) 27 Albumin 3.1 L Albumin/Globulin Ratio 1.00 Alkaline Phosphatase 75 Anion Gap 11 Aspartate Amino Transf (AST/SGOT) 12 L Basophils # 0.6 H Basophils % 3.0 H Blood Morphology Comment Blood Urea Nitrogen 18 Calcium Level 8.0 L Carbon Dioxide Level 24 Chloride Level 108 Creatinine 1.62 H Direct Bilirubin 0.00 Eosinophils # 0.0 Eosinophils % 0.1 Globulin 3.10 Glucose Level 135 Hematocrit 33.5 L Hemoglobin 10.7 L Indirect Bilirubin 1.7 H Lymphocytes # 1.5 Lymphocytes % 7.1 L Mean Corpuscular Hemoglobin 25.4 L Mean Corpuscular Hemoglobin Concent 31.8 L Mean Corpuscular Volume 79.8 L Mean Platelet Volume 8.7 Monocytes # 2.0 H Monocytes % 9.4 Neutrophils # 17.3 H Neutrophils % 80.4 H Nucleated Red Blood Cells # 0.0 Nucleated Red Blood Cells % 0.0 Platelet Count 221 Potassium Level 3.9 Red Blood Count 4.20 L Red Cell Distribution Width 17.8 H Sodium Level 139 Total Bilirubin 1.7 H Total Protein 6.2 # White Blood Count 21.5 #H Medications Medications Current Medications Sodium Chloride (NS) 1,000 ml @ 50 mls/hr Q20H IV Last administered on at 10:19; Admin Dose 50 MLS/HR; Start 02/18/16 at 09:13 Ondansetron HCl (Zofran Inj) 4 mg Q6H PRN IV NAUSEA AND/OR VOMITING; Start 02/18/16 at 09:30 Acetaminophen (Tylenol Supp) 650 mg Q4H PRN [place] PAIN LEVEL 1-3 OR FEVER; Start 02/18/16 at 09:30 Morphine Sulfate (morphine) 2 mg Q4H PRN IV PAIN LEVEL 7-10; Start 02/18/16 at 09:30 Lorazepam (Ativan) 1 mg Q2H PRN IV ANXIETY Last administered on 02/20/16at 14:27 ; Admin Dose 1 MG; Start 02/18/16 at 09:30 Bisacodyl (Dulcolax Supp) 10 mg DAILY PRN [place] CONSTIPATION; Start 02/18/16 at 09 :30 Pantoprazole 40 mg 40 mg DAILY@06 IV Last administered on 02/20/16at 06:00; Admin Dose 40 MG; Start 02/19/16 at 06:00 Esmolol HCl/ Sodium Chloride (Brevibloc) 250 ml @ 28.8 mls/hr TITRATE IV Last administered on 02/20/16at 14:34; Admin Dose 172.8 MLS/HR; Start 02/18/16 at 09: 30 Ferrous Sulfate 325 mg 325 mg BID PO Last administered on 02/20/16at 08:52; Admin Dose 325 MG; Start 02/19/16 at 21:00 Diltiazem HCl 125 ml @ 5 mls/hr TITRATE IV Last administered on 02/20/16at 11:43 ; Admin Dose 15 MLS/HR; Start 02/19/16 at 14:00 Sodium Nitroprusside/ Dextrose (Nipride/D5W) 250 ml @ 8.64 mls/hr TITRATE IV Last administered on 02/20/16 14:32; Admin Dose 57.6 MLS/HR; Start 02/19/16 at 15:30 DERRICK DREW MD Feb 20, 2016 14:37
--- NOTE | 2016-02-20 15:16 | RADRPT ---
Vent Rate: 86 bpm RR Interval: [address] Interval: 160 msec QRS Duration: 90 msec QT Interval: 384 msec QTC Interval: 459 msec P-R-T [place]: 63 - 26 - 0 degrees Normal sinus rhythm Left ventricular hypertrophy with repolarization abnormality Abnormal ECG Electronically Signed By: Uday Romero [id number]
--- NOTE | 2016-02-20 15:18 | RADRPT ---
Vent Rate: 68 bpm RR Interval: 0 msec NV Interval: 176 msec QRS Duration: 94 msec QT Interval: 416 msec QTC Interval: 442 msec P-R-T [place]: 62 - 49 - 0 degrees Normal sinus rhythm Left ventricular hypertrophy with repolarization abnormality Abnormal ECG Electronically Signed By: Uday Romero [id number]
--- NOTE | 2016-02-20 15:47 | PN ---
Date/Time of Note Date/Time of Note DATE: 02/20/16 TIME: 15:40 Assessment/Plan VTE Prophylaxis VTE Prophylaxis Intervention: SCD's Lines/Catheters IV Catheter Type (from Nrs): Peripheral IV Assessment/Plan Chief Complaint/Hosp Course Assessment and plan 1. 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 Vascular surgeon is following. Patient still noted with hypertension controlled with nipride at this time. Follow up with cardiology recs. Hopeful transition off nipride. Continue to maintain systolic blood pressure less than 140 and diastolic less than 90. 2. Hypertensive urgency. We'll continue on antihypertensives drips. Start oral antihypertensives per cardiology 3. Iron deficiency anemia. We'll continue on iron supplement 4. Leukocytosis. Recurring. Remains afebrile. We'll follow up on blood culture 5. Hypokalemia. We will monitor and replete as needed 6. Acute kidney injury. Likely secondary to hemodynamics. We'll monitor renal panel. GERD prophylaxis: PPI DVT prophylaxis: SCDs Disposition and plan: Titrate down antihypertensive drips as tolerated. On oral BP meds. Monitor for improvement of hypertension. Cont ICU monitoring Discussed plan of care with Dr. Raymundo Critical care time: 30 minutes Problems: Subjective 24 Hr Interval Summary Free Text/Dictation no acute distress noted. reports less abdominal pain. Appears comfortable at this time Exam/Review of Systems Vital Signs Vitals Vital Signs Date Time Temp Pulse Resp B/P Pulse Ox O2 Delivery O2 Flow Rate FiO2 02/20/16 15:15 73 28 139/88 97 02/20/16 15:00 Nasal Cannula 2.0 02/20/16 12:45 98.8 Intake and Output 02/19/16 02/19/16 02/20/16 14:59 22:59 06:59 Intake Total 2256.0 ml 2155.7 ml 1790.4 ml Output Total 350 ml 75 ml 500 ml Balance 1906.0 ml 2080.7 ml 1290.4 ml Exam General: No acute signs or symptoms of distress Eyes: pupils equal round, Anicteric sclera Neck: Supple nontender, no JVD Cardiac: S1, S2 auscultated, regular rhythm and rate Pulmonary: No coarse rhonchi or breathing auscultated GI: Abdomen soft nontender nondistended, bowel sounds active Extremities: No edema bilateral lower extremities Skin: Clean dry and intact Neurologic: Alert to person place and time and situation Results Result Diagram: 02/20/165 02/20/165 Results 24 hrs Laboratory Tests Test 02/20/16 04:45 Alanine Aminotransferase (ALT/SGPT) 27 Albumin 3.1 L Albumin/Globulin Ratio 1.00 Alkaline Phosphatase 75 Anion Gap 11 Aspartate Amino Transf (AST/SGOT) 12 L Basophils # 0.6 H Basophils % 3.0 H Blood Morphology Comment Blood Urea Nitrogen 18 Calcium Level 8.0 L Carbon Dioxide Level 24 Chloride Level 108 Creatinine 1.62 H Direct Bilirubin 0.00 Eosinophils # 0.0 Eosinophils % 0.1 Globulin 3.10 Glucose Level 135 Hematocrit 33.5 L Hemoglobin 10.7 L Indirect Bilirubin 1.7 H Lymphocytes # 1.5 Lymphocytes % 7.1 L Mean Corpuscular Hemoglobin 25.4 L Mean Corpuscular Hemoglobin Concent 31.8 L Mean Corpuscular Volume 79.8 L Mean Platelet Volume 8.7 Monocytes # 2.0 H Monocytes % 9.4 Neutrophils # 17.3 H Neutrophils % 80.4 H Nucleated Red Blood Cells # 0.0 Nucleated Red Blood Cells % 0.0 Platelet Count 221 Potassium Level 3.9 Red Blood Count 4.20 L Red Cell Distribution Width 17.8 H Sodium Level 139 Total Bilirubin 1.7 H Total Protein 6.2 # White Blood Count 21.5 #H Medications Medications Current Medications Sodium Chloride (NS) 1,000 ml @ 50 mls/hr Q20H IV Last administered on at 10:19; Admin Dose 50 MLS/HR; Start 02/18/16 at 09:13 Ondansetron HCl (Zofran Inj) 4 mg Q6H PRN IV NAUSEA AND/OR VOMITING; Start 02/18/16 at 09:30 Acetaminophen (Tylenol Supp) 650 mg Q4H PRN [place] PAIN LEVEL 1-3 OR FEVER; Start 02/18/16 at 09:30 Morphine Sulfate (morphine) 2 mg Q4H PRN IV PAIN LEVEL 7-10; Start 02/18/16 at 09:30 Lorazepam (Ativan) 1 mg Q2H PRN IV ANXIETY Last administered on 02/20/16at 14:27 ; Admin Dose 1 MG; Start 02/18/16 at 09:30 Bisacodyl (Dulcolax Supp) 10 mg DAILY PRN [place] CONSTIPATION; Start 02/18/16 at 09 :30 Pantoprazole 40 mg 40 mg DAILY@06 IV Last administered on 02/20/16at 06:00; Admin Dose 40 MG; Start 02/19/16 at 06:00 Esmolol HCl/ Sodium Chloride (Brevibloc) 250 ml @ 28.8 mls/hr TITRATE IV Last administered on 02/20/16at 14:34; Admin Dose 172.8 MLS/HR; Start 02/18/16 at 09: 30 Ferrous Sulfate 325 mg 325 mg BID PO Last administered on 02/20/16at 08:52; Admin Dose 325 MG; Start 02/19/16 at 21:00 Diltiazem HCl 125 ml @ 5 mls/hr TITRATE IV Last administered on 02/20/16at 11:43 ; Admin Dose 15 MLS/HR; Start 02/19/16 at 14:00 Sodium Nitroprusside/ Dextrose (Nipride/D5W) 250 ml @ 8.64 mls/hr TITRATE IV Last administered on 02/20/16at 14:32; Admin Dose 57.6 MLS/HR; Start 02/19/16 at 15:30 Carvedilol (Coreg) 12.5 mg BID NGT ; Start 02/20/16 at 21:00 Amlodipine Besylate (Norvasc) 5 mg BID PO ; Start 02/20/16 at 21:00 REJI WADE Feb 20, 2016 15:47
[2016-02-20] MEDS: morphine 2 MG INJ IV PRN ×2 (15:50→21:19)
--- NOTE | 2016-02-20 16:54 | RADRPT ---
PROCEDURE: Renal Ultrasound CLINICAL INDICATION: Renal insufficiency. TECHNIQUE: Evaluation of the kidneys and bladder was performed as well with spears scale and color and Doppler evaluation using a curved array transducer. The images were reviewed on a high-resoluti on PACS workstation. COMPARISON: CT abdomen pelvis 02/18/2016 FINDINGS: The kidneys are well visualized. There is an 8 mm echogenic focus in the lower pole of the right kid jace most consistent with a small angiomyolipoma. When compared to recent CT, there is suggestion of a fat-containing lesion which is too small to characterize. There is no hydronephrosis. The right kidney measures 11.0 cm in length. The left kidney measures 11.5 cm in length. No perinephric f luid collection is seen. The bladder is within normal limits. IMPRESSION: 1. 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 There is a small lesion in this region on CT which is too small to accurately characterize. Recommend 6-month follow-up to confirm stability. 2. Otherwise unremarkable renal ultrasound. RPTAT: KK .Ronni Mota MD, Date Time Electronically viewed and signed by .Ronni Mota MD, MD on 02/20/2016 16:54 .B/
--- NOTE | 2016-02-20 20:02 | CONS ---
DATE OF ADMISSION: 02/18/2016 DATE OF CONSULTATION: 02/20/2016 REASON FOR CONSULTATION: Acute kidney injury. REFERRING PHYSICIAN: Tiffanie Mosher MD TYPE OF CONSULTATION: Nephrology. HISTORY OF PRESENT ILLNESS: This is a 45-year-old male, who has a past medical history of hypertens ion, iron-deficiency anemia, a history of previous leukocytosis, who presented with abdominal pain s econdary to dissection of aortic aneurysm. The patient had hypertension which required multiple blo od pressure drips in the ICU. He presented with a creatinine of 1.1, which bumped up to 1.6 today, so renal has been consulted for acute kidney injury. REVIEW OF SYSTEMS: As per HPI. PAST MEDICAL HISTORY: Hypertension, type B aortic aneurysm. SOCIAL HISTORY: No smoking, alcohol, recreational drug use. FAMILY HISTORY: Noncontributory. PHYSICAL EXAMINATION VITAL SIGNS: Temperature ____, heart rate is 72, respiration 23, blood pressure 128/74, saturation a 91% on 2 L nasal cannula. GENERAL: Awake, alert, in no distress. HEENT: Normal. Oropharynx clear. NECK: Supple. No JVD, no lymphadenopathy. LUNGS: Clear to auscultation. No crackles, no wheezes. HEART: S1, S2, with regular rhythm; no murmur. ABDOMEN: Soft, nontender, nondistended. Bowel sounds are present. EXTREMITIES: No clubbing, cyanosis, edema. NEUROLOGICAL: Nonfocal, intact. PSYCHIATRIC: Appropriate affect and mood. LABORATORY DATA AND DIAGNOSTIC IMAGING 1. WBC 21.5, hemoglobin 10.7, platelet count 221, Sodium 139, potassium 3.9, chloride 108, bicarbon ate 24, BUN 18, creatinine 1. 6, glucose 135, calcium 8, albumin is 3.1, total bilirubin is 1.79. H is urinalysis negative. 2. A PT 13.2, PTT 30.9, INR 1. 3. A CT chest angiogram shows [place] type B dissecting aneurysm of the aorta, beginning below the level of the left subclavian artery and extending below the level of the diaphragm. The largest di ameter 4.5 cm. There is intramural hemorrhage of the aneurysm. 4. Sodium 139, potassium 3.9, chloride 108, bicarbonate 24, BUN 18, creatinine 1.6, glucose 135, ca lcium 8. IMPRESSION This is a 45-year-old male with: 1. Acute kidney injury, likely secondary to acute tubular necrosis from contrast-induced nephropath y and also secondary to ischemic acute tubular necrosis from aortic dissection. 2. A type B [place] aortic dissection. 3. Hypertensive emergency on multiple drips. PLAN 1. Thank you, Dr. Tiffanie Mosher, for this consultation. The present creatinine has been bumped to 1.6. I will order the patient's renal ultrasounds to assess for kidney size and to rule out hydrone phrosis. 2. Currently, patient is on a nitroprusside drip, ____ and also on a Cardizem drip. So I will cont inue him on this. 3. Agree with IV fluid hydration at 50 mL/hr. 4. Protonix for GI prophylaxis and SCDs for DVT prophylaxis. 5. Patient currently seen in the ICU and will be followed up along with the hospitalist service. Dictated By: MOSES HARRIS MD KP/NTS Conf#: [id number] DID#: [id number] CC: TIFFANIE MOSHER MD;*EndCC*
[2016-02-20 20:16] LABS: AADO2 Arterial 105.9 mmHg (7.0-24.0); Allen Test ACCEPTAB; Arterial Base Excess -2.7 mmol/L (-3.0-3); Arterial COHb 0.3 % (0.0-3.0); Arterial Fraction of Oxyhgb 93.6 % (93.0-99.0); Arterial HCO3 20.9 mmol/L (22.0-26.0); Arterial MetHb 0.2 % (0.0-1.5); Arterial Total Hemglobin 11.7 g/dl (12.0-18.0); MODE NASAL CANNULA
[2016-02-20] MEDS: AMLODIPINE 5 MG TAB PO SCH (21:19)
[2016-02-20] MEDS ORDERED: VANCOMYCIN IV PER PHARMACY XX SCH (22:30)
[2016-02-20] MEDS: MINOXIDIL 2.5 MG TAB PO SCH (22:53)
[2016-02-20] MEDS ORDERED: VANCOMYCIN 2 GM in SOD CHLORIDE 0.9% 500 ML IVPB ONE (23:00)
[2016-02-21] VITALS (103 sets, daily range): BP systolic 86–217; BP diastolic 43–137; PULSE 54–101; RESP 16–40; Ht 177.8 cm; Wt 106.3 kg
[2016-02-21] MEDS: ESMOLOL 250 ML IV SCH ×9 (01:01→23:21)
[2016-02-21] MEDS: LORAZEPAM 2 MG INJ IV PRN ×3 (01:55→13:57)
[2016-02-21] MEDS: morphine 2 MG INJ IV PRN ×2 (02:02→09:35)
[2016-02-21] MEDS: NITROPRUSSIDE 50 MG in DEXTROSE 5% 248 ML IV SCH ×4 (04:02→17:37)
[2016-02-21] MEDS: PANTOPRAZOLE 40 MG INJ IV SCH (05:36)
[2016-02-21 06:16] LABS: HEMATOCRIT 32.1 % (42.0-52.0); HEMOGLOBIN 10.4 g/dl (14.0-18.0); MEAN CORPUSCULAR HGB CONC 32.3 g/dl (32.0-37.0); MEAN CORPUSCULAR VOLUME 80.4 fl (82.0-101.0); MEAN PLATELET VOLUME 9.4 fl (7.4-10.4); PLATELET COUNT 214 10^3/UL (140-440); RED BLOOD COUNT 3.99 10^6/ul (4.70-6.10); UNCORRECTED WBC 23.3 10^3/ul (4.8-10.8); WHITE BLOOD COUNT 23.3 10^3/ul (4.8-10.8)
[2016-02-21 06:21] LABS: ALBUMIN 3.1 g/dl (3.3-4.9)
[2016-02-21 06:22] LABS: POTASSIUM 3.9 mmol/L (3.5-5.1)
[2016-02-21 06:23] LABS: CONDITION 1; LH ANALYZER COMMENTS 1; SUSPECT 1
[2016-02-21 06:24] LABS: BILIRUBIN,INDIRECT 1.1 mg/dl (0-1.1); BILIRUBIN,TOTAL 1.1 mg/dl (0.2-1.3); CREATININE 1.35 mg/dl (0.61-1.24)
[2016-02-21 06:25] LABS: ALBUMIN/GLOBULIN RATIO 0.93; CALCIUM 8.2 mg/dl (8.4-10.2); TOTAL PROTEIN 6.4 g/dl (6.1-8.1)
[2016-02-21] MEDS: hydrALAzine 20 MG INJ IV PRN (07:49)
[2016-02-21] MEDS: AMLODIPINE 5 MG TAB PO SCH ×2 (09:00→21:36)
[2016-02-21] MEDS ORDERED: IPRATROPIUM (NEB) 0.5 MG/2.5 ML AMP HHN PRN (09:00)
[2016-02-21] MEDS: MINOXIDIL 2.5 MG TAB PO SCH ×2 (09:00→21:38)
[2016-02-21] MEDS: FERROUS SULFATE (EC) 325 MG TAB PO SCH ×2 (09:00→21:36)
[2016-02-21 09:43] LABS: AADO2 Arterial 583.7 mmHg (7.0-24.0); Allen Test ACCEPTAB; Arterial Base Excess -5.2 mmol/L (-3.0-3); Arterial COHb 1.2 % (0.0-3.0); Arterial Fraction of Oxyhgb 95.5 % (93.0-99.0); Arterial HCO3 19.8 mmol/L (22.0-26.0); Arterial MetHb 0.4 % (0.0-1.5); Arterial Total Hemglobin 12.9 g/dl (12.0-18.0); MODE MASK - NRB
--- NOTE | 2016-02-21 09:46 | RADRPT ---
PROCEDURE: XR Chest. CLINICAL INDICATION: Dyspnea TECHNIQUE: Chest AP portable. COMPARISON: CTA a 02/18/2016 FINDINGS: The mediastinal structures are unremarkable. There is mild cardiomegaly. The pulmonary vascularity is normal. There are new nodular consolidations involving the right lung, most marked in the right upper lobe (pneumonia). The pleural spaces are unremarkable. The axial skeleton is unremarkable. IMPRESSION: New nodular consolidations involving the right lung, most marked in the right upper lobe (query pneu monia) RPTAT: HGDB .Kilo Wilburn MD, MD Date Time Electronically viewed and signed by .Kilo Wilburn MD, on 02/21/2016 09:46 .B/
[2016-02-21 09:49] LABS: EOSINOPHILS # 0.2 10^3/ul (0.0-0.5); LYMPHOCYTES # 1.2 10^3/ul (0.8-2.9); MONOCYTE # 2.1 10^3/ul (0.3-0.9); NEUTROPHIL # 19.8 10^3/ul (1.6-7.5)
--- NOTE | 2016-02-21 11:07 | CONS ---
Date/Time of Note Date/Time of Note DATE: 02/21/16 TIME: 11:02 Assessment/Plan Assessment/Plan Chief Complaint/Hosp Course Imp: 1.HTN emergency-NL EF by echo this admit-remains uncontrolled on esmolol/nipride 2.Aortic dissection-type B 3.abnl ecg-lateral TWI-negative troponin x 3 since admit 4.anxiety 5.ARF 6. Pericardial effusion by echo-small with NL EF Recc: -Tele in ICU -Contine esmolol/nipride IV and will start nicardipine -Follow volume status closely -serial ecg's -PO anti-hypertensives as possible -ongoing surgical follow-up Problems: Consultation Date/Type/Reason Admit Date/Time Feb 18, 2016 at 09:14 Initial Consult Date 02/19/2016 Type of Consultation: cardiology Reason for Consultation Aortic dissection/hypertension Referring Provider: TIFFANIE HEARD MD Exam/Review of Systems Vital Signs Vitals Vital Signs Date Time Temp Pulse Resp B/P Pulse Ox O2 Delivery O2 Flow Rate FiO2 02/21/16 10:00 96 26 170/104 99 Non Rebreather 15.0 02/21/16 08:00 99.4 02/20/16 20:49 31 Intake and Output 02/20/16 02/20/16 02/21/16 15:00 23:00 07:00 Intake Total 180 ml 3631.0 ml 1883.2 ml Output Total 860 ml 725 ml 510 ml Balance -680 ml 2906.0 ml 1373.2 ml Exam Review of Systems: CONSTITUTIONAL: No fevers, chills. PULMONARY: No sob CARDIOVASCULAR: No chest pain/palpitations GASTROINTESTINAL: No nausea/vomiting. GENITOURINARY: No hematuria/dysuria. MUSCULOSKELETAL: No myagias/arthalgias. PSYCHIATRIC: The patient denies depression. NEUROLOGIC: confused Constitutional: alert Psych: no complaints Head: normocephalic ENMT: mucosa pink and moist Neck: jvd (9 cm water), supple Respiratory: diminished breath sounds (at bases/B) Cardiovascular: regular rate and rhythm Gastrointestinal: non-tender, soft Musculoskeletal: muscle tone (normal) Extremities: edema (none) Neurological: confused Results Result Diagram: 02/21/16 0533 02/21/16 0533 Results 24 hrs Laboratory Tests Test 12/6/16 18:36 02/21/16 05:33 02/21/16 08:43 Arterial Blood HCO3 20.9 L 19.8 L Arterial Blood Base Excess -2.7 -5.2 L Arterial Blood Oxygen Saturation 94.1 L 97.1 Jovanny Test ACCEPTAB ACCEPTAB Arterial Blood Gas Puncture Site Left Radial Right Radial Arterial Blood Carboxyhemoglobin 0.3 1.2 Arterial Blood Date Drawn 02/20/2016 8:00:15 PM 02/21/2016 9:00:00 AM Arterial Blood Methemoglobin 0.2 0.4 Arterial Blood pCO2 (Temp correct) 32.4 L 36.8 Arterial Blood pH (Temp corrected) 7.427 7.348 L Arterial Blood pO2 (Temp corrected) 69.9 L 92.5 Blood Gas A-a O2 Differential 105.9 H 583.7 H Blood Gas Modality NASAL CANNULA MASK - NRB Blood Gas Notified Time 02/20/2016 8:16:26 PM 02/21/2016 9:42:00 AM Blood Gas Notified Whom UP JLD Blood Gas Specimen Source Blood arterial Blood arterial Blood Gas Temperature 37.0 37.0 FiO2 30.0 100.0 Oxyhemoglobin Percent 93.6 95.5 Total Hemoglobin 11.7 L 12.9 Alanine Aminotransferase (ALT/SGPT) 24 Albumin 3.1 L Albumin/Globulin Ratio 0.93 Alkaline Phosphatase 80 Anion Gap 12 Aspartate Amino Transf (AST/SGOT) 14 L Basophils # Basophils % Blood Morphology Comment Blood Urea Nitrogen 13 Calcium Level 8.2 L Carbon Dioxide Level 21 Chloride Level 110 Creatinine 1.35 H Differential Comment MANUAL DIFF Direct Bilirubin 0.00 Eosinophils # 0.2 Eosinophils % 1.0 Globulin 3.30 H Glucose Level 120 Hematocrit 32.1 L Hemoglobin 10.4 L Indirect Bilirubin 1.1 Lymphocytes # 1.2 Lymphocytes % 5.0 L Mean Corpuscular Hemoglobin 26.0 L Mean Corpuscular Hemoglobin Concent 32.3 Mean Corpuscular Volume 80.4 L Mean Platelet Volume 9.4 Monocytes # 2.1 H Monocytes % 9.0 Neutrophils # 19.8 H Neutrophils % 85.0 H Nucleated Red Blood Cells # Nucleated Red Blood Cells % Platelet Count 214 Potassium Level 3.9 Red Blood Count 3.99 L Red Cell Distribution Width 18.0 H Sodium Level 139 Total Bilirubin 1.1 Total Protein 6.4 White Blood Count 23.3 H Medications Medications Current Medications Sodium Chloride (NS) 1,000 ml @ 50 mls/hr Q20H IV Last administered on 10:19; Admin Dose 50 MLS/HR; Start 02/18/16 at 09:13 Ondansetron HCl (Zofran Inj) 4 mg Q6H PRN IV NAUSEA AND/OR VOMITING; Start 02/18/16 at 09:30 Acetaminophen (Tylenol Supp) 650 mg Q4H PRN [place] PAIN LEVEL 1-3 OR FEVER; Start 02/18/16 at 09:30 Morphine Sulfate (morphine) 2 mg Q4H PRN IV PAIN LEVEL 7-10 Last administered on 02/21/16at 09:35; Admin Dose 2 MG; Start 02/18/16 at 09:30 Lorazepam (Ativan) 1 mg Q2H PRN IV ANXIETY Last administered on 02/21/16at 08:39 ; Admin Dose 1 MG; Start 02/18/16 at 09:30 Bisacodyl (Dulcolax Supp) 10 mg DAILY PRN [place] CONSTIPATION; Start 02/18/16 at 09 :30 Pantoprazole 40 mg 40 mg DAILY@06 IV Last administered on 02/21/16at 05:36; Admin Dose 40 MG; Start 02/19/16 at 06:00 Esmolol HCl/ Sodium Chloride (Brevibloc) 250 ml @ 28.8 mls/hr TITRATE IV Last administered on 02/21/16at 10:00; Admin Dose 172.8 MLS/HR; Start 02/18/16 at 09: 30 Ferrous Sulfate 325 mg 325 mg BID PO Last administered on 02/20/16 21:25; Admin Dose 325 MG; Start 02/19/16 at 21:00 Diltiazem HCl 125 ml @ 5 mls/hr TITRATE IV Last administered on 02/20/16 21:07 ; Admin Dose 5 MLS/HR; Start 02/19/16 at 14:00 Sodium Nitroprusside/ Dextrose (Nipride/D5W) 250 ml @ 8.64 mls/hr TITRATE IV Last administered on 02/21/16 07:50; Admin Dose 57.6 MLS/HR; Start 02/19/16 at 15:30 Carvedilol (Coreg) 12.5 mg BID NGT Last administered on 12/6/16at 21:18; Admin Dose 12.5 MG; Start 02/20/16 at 21:00 Amlodipine Besylate (Norvasc) 5 mg BID PO Last administered on 02/20/16at 21:19 ; Admin Dose 5 MG; Start 02/20/16 at 21:00 Hydralazine HCl (Apresoline) 10 mg Q6H PRN IV ELEVATED SYSTOLIC BP Last administered on 02/21/16at 07:49; Admin Dose 10 MG; Start 02/20/16 at 22:00 Minoxidil 5 mg 5 mg BID PO Last administered on 02/20/16at 22:53; Admin Dose 5 MG; Start 02/20/16 at 22:00 Vancomycin HCl/ Sodium Chloride (Vancocin/NS) 250 ml @ 83.333 mls/ hr Q12H IVPB ; Start 02/21/16 at 12:00 Miscellaneous Information (*Rx Drug Level Order Reminder*) VANCOMYCIN TROUGH AT 1100 ONCE ONCE XX ; Start 02/22/16 at 11:00; Stop 02/22/16 at 11:01 JUNAID PAZ Feb 21, 2016 11:07
--- NOTE | 2016-02-21 11:15 | CONS ---
Date/Time of Note Date/Time of Note DATE: 02/21/16 TIME: 11:13 Assessment/Plan Assessment/Plan Additional Assessment/Plan 1. Acute kidney injury, likely secondary to acute tubular necrosis from contrast-induced nephropathy and also secondary to ischemic acute tubular necrosis from aortic dissection. 2. A type B [place] aortic dissection. 3. Hypertensive emergency on multiple drips. PLAN: Cr improving switch to Nicardipine gtt will check US LUE to rule otu DVT ABG at 3 pm will need pulmonaryconsult will follow up Consultation Date/Type/Reason Admit Date/Time Feb 18, 2016 at 09:14 Initial Consult Date Type of Consultation: NEPHROLOGY Referring Provider: TIFFANIE HEARD MD 24 HR Interval Summary Free Text/Dictation Crimproving , BP still high Exam/Review of Systems Vital Signs Vitals Vital Signs Date Time Temp Pulse Resp B/P Pulse Ox O2 Delivery O2 Flow Rate FiO2 02/21/16 10:00 96 26 170/104 99 Non Rebreather 15.0 02/21/16 08:00 99.4 02/20/16 20:49 31 Intake and Output 02/20/16 02/20/16 02/21/16 15:00 23:00 07:00 Intake Total 180 ml 3631.0 ml 1883.2 ml Output Total 860 ml 725 ml 510 ml Balance -680 ml 2906.0 ml 1373.2 ml Exam GENERAL: Awake, but lethargic HEENT: Normal. Oropharynx clear. NECK: Supple. No JVD, no lymphadenopathy. LUNGS: Clear to auscultation. No crackles, no wheezes. HEART: S1, S2, with regular rhythm; no murmur. ABDOMEN: Soft, nontender, nondistended. Bowel sounds are present. EXTREMITIES: No clubbing, cyanosis, LUE edema 2+ NEUROLOGICAL: Nonfocal, intact. PSYCHIATRIC: Appropriate affect and mood. Results Result Diagram: 02/21/16 0533 02/21/1633 Results 24 hrs Laboratory Tests Test 02/20/16 18:36 02/21/16 05:33 02/21/16 08:43 Arterial Blood HCO3 20.9 L 19.8 L Arterial Blood Base Excess -2.7 -5.2 L Arterial Blood Oxygen Saturation 94.1 L 97.1 Jovanny Test ACCEPTAB ACCEPTAB Arterial Blood Gas Puncture Site Left Radial Right Radial Arterial Blood Carboxyhemoglobin 0.3 1.2 Arterial Blood Date Drawn 02/20/2016 8:00:15 PM 02/21/2016 9:00:00 AM Arterial Blood Methemoglobin 0.2 0.4 Arterial Blood pCO2 (Temp correct) 32.4 L 36.8 Arterial Blood pH (Temp corrected) 7.427 7.348 L Arterial Blood pO2 (Temp corrected) 69.9 L 92.5 Blood Gas A-a O2 Differential 105.9 H 583.7 H Blood Gas Modality NASAL CANNULA MASK - NRB Blood Gas Notified Time 02/20/2016 8:16:26 PM 02/21/2016 9:42:00 AM Blood Gas Notified Whom UP JLD Blood Gas Specimen Source Blood arterial Blood arterial Blood Gas Temperature 37.0 37.0 FiO2 30.0 100.0 Oxyhemoglobin Percent 93.6 95.5 Total Hemoglobin 11.7 L 12.9 Alanine Aminotransferase (ALT/SGPT) 24 Albumin 3.1 L Albumin/Globulin Ratio 0.93 Alkaline Phosphatase 80 Anion Gap 12 Aspartate Amino Transf (AST/SGOT) 14 L Basophils # Basophils % Blood Morphology Comment Blood Urea Nitrogen 13 Calcium Level 8.2 L Carbon Dioxide Level 21 Chloride Level 110 Creatinine 1.35 H Differential Comment MANUAL DIFF Direct Bilirubin 0.00 Eosinophils # 0.2 Eosinophils % 1.0 Globulin 3.30 H Glucose Level 120 Hematocrit 32.1 L Hemoglobin 10.4 L Indirect Bilirubin 1.1 Lymphocytes # 1.2 Lymphocytes % 5.0 L Mean Corpuscular Hemoglobin 26.0 L Mean Corpuscular Hemoglobin Concent 32.3 Mean Corpuscular Volume 80.4 L Mean Platelet Volume 9.4 Monocytes # 2.1 H Monocytes % 9.0 Neutrophils # 19.8 H Neutrophils % 85.0 H Nucleated Red Blood Cells # Nucleated Red Blood Cells % Platelet Count 214 Potassium Level 3.9 Red Blood Count 3.99 L Red Cell Distribution Width 18.0 H Sodium Level 139 Total Bilirubin 1.1 Total Protein 6.4 White Blood Count 23.3 H Medications Medications Current Medications Sodium Chloride (NS) 1,000 ml @ 50 mls/hr Q20H IV Last administered on at 10:19; Admin Dose 50 MLS/HR; Start 02/18/16 at 09:13 Ondansetron HCl (Zofran Inj) 4 mg Q6H PRN IV NAUSEA AND/OR VOMITING; Start 02/18/16 at 09:30 Acetaminophen (Tylenol Supp) 650 mg Q4H PRN [place] PAIN LEVEL 1-3 OR FEVER; Start 02/18/16 at 09:30 Morphine Sulfate (morphine) 2 mg Q4H PRN IV PAIN LEVEL 7-10 Last administered on 02/21/16at 09:35; Admin Dose 2 MG; Start 02/18/16 at 09:30 Lorazepam (Ativan) 1 mg Q2H PRN IV ANXIETY Last administered on 02/21/16at 08:39 ; Admin Dose 1 MG; Start 02/18/16 at 09:30 Bisacodyl (Dulcolax Supp) 10 mg DAILY PRN [place] CONSTIPATION; Start 02/18/16 at 09 :30 Pantoprazole 40 mg 40 mg DAILY@06 IV Last administered on 02/21/16at 05:36; Admin Dose 40 MG; Start 02/19/16 at 06:00 Esmolol HCl/ Sodium Chloride (Brevibloc) 250 ml @ 28.8 mls/hr TITRATE IV Last administered on 02/21/16at 10:00; Admin Dose 172.8 MLS/HR; Start 02/18/16 at 09: 30 Ferrous Sulfate 325 mg 325 mg BID PO Last administered on 02/20/16 21:25; Admin Dose 325 MG; Start 02/19/16 at 21:00 Diltiazem HCl 125 ml @ 5 mls/hr TITRATE IV Last administered on 02/20/16at 21:07 ; Admin Dose 5 MLS/HR; Start 02/19/16 at 14:00 Sodium Nitroprusside/ Dextrose (Nipride/D5W) 250 ml @ 8.64 mls/hr TITRATE IV Last administered on 02/21/16 07:50; Admin Dose 57.6 MLS/HR; Start 02/19/16 at 15:30 Carvedilol (Coreg) 12.5 mg BID NGT Last administered on 02/20/16 21:18; Admin Dose 12.5 MG; Start 02/20/16 at 21:00 Amlodipine Besylate (Norvasc) 5 mg BID PO Last administered on 02/20/16 21:19 ; Admin Dose 5 MG; Start 02/20/16 at 21:00 Hydralazine HCl (Apresoline) 10 mg Q6H PRN IV ELEVATED SYSTOLIC BP Last administered on 02/21/16at 07:49; Admin Dose 10 MG; Start 02/20/16 at 22:00 Minoxidil 5 mg 5 mg BID PO Last administered on 02/20/16at 22:53; Admin Dose 5 MG; Start 02/20/16 at 22:00 Vancomycin HCl/ Sodium Chloride (Vancocin/NS) 250 ml @ 83.333 mls/ hr Q12H IVPB ; Start 02/21/16 at 12:00 Miscellaneous Information (*Rx Drug Level Order Reminder*) VANCOMYCIN TROUGH AT 1100 ONCE ONCE XX ; Start 02/22/16 at 11:00; Stop 02/22/16 at 11:01 MOSES HARRIS MD Feb 21, 2016 11:15
[2016-02-21] MEDS: METOPROLOL 50 MG TAB PO SCH ×2 (11:30→21:00)
[2016-02-21] MEDS ORDERED: NIFEdipine (XL) 60 MG TAB PO ONE (11:30)
--- NOTE | 2016-02-21 12:18 | PN ---
Date/Time of Note Date/Time of Note DATE: 02/21/16 TIME: 12:08 Assessment/Plan VTE Prophylaxis VTE Prophylaxis Intervention: SCD's Lines/Catheters IV Catheter Type (from Nrs): Peripheral IV Urinary Cath still in place: Yes Reason Cath still needed: other (indicate) (monitor I&O) Assessment/Plan Chief Complaint/Hosp Course Assessment and plan 1. 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 Vascular surgeon is following. . Follow up with cardiology recs. remains on 3 antihypertensive drips. Hopeful transition off nipride. Continue to maintain systolic blood pressure less than 140 and diastolic less than 90. 2. Hypertensive urgency. We'll continue on antihypertensives drips. titrate down as tolerated. 3. Iron deficiency anemia. We'll continue on iron supplement 4. Leukocytosis. worse today. Patient noted with staph species in blood. Will get ID consult. cont on abx 5. Hypokalemia. We will monitor and replete as needed 6. Acute kidney injury. Likely secondary to hemodynamics. purchasing analyst following. cont to monitor renal panel 7. Respiratory distress likely secondary to HCAP. Patient with CXR. with worsening opacities more notable on right side. Will get paraffin plant operator to follow. 8. Bacteremia with staph species. cont on vancocin for now. ID consult to follow GERD prophylaxis: PPI DVT prophylaxis: SCDs Disposition and plan: Titrate down antihypertensive drips as tolerated. Will get paraffin plant operator to follow for worsening resp status. ID consult to follow for staph bacteremia. cont ICU monitoring. Discussed plan of care with Dr. Raymundo Critical care time: 30 minutes Problems: Subjective 24 Hr Interval Summary Free Text/Dictation noted with more shortness of breath today. using accessory muscles Exam/Review of Systems Vital Signs Vitals Vital Signs Date Time Temp Pulse Resp B/P Pulse Ox O2 Delivery O2 Flow Rate FiO2 02/21/16 11:30 82 28 152/106 97 02/21/16 11:00 Non Rebreather 10.0 02/21/16 08:00 99.4 02/20/16 20:49 31 Intake and Output 02/20/16 02/20/16 02/21/16 15:00 23:00 07:00 Intake Total 180 ml 3631.0 ml 1883.2 ml Output Total 860 ml 725 ml 510 ml Balance -680 ml 2906.0 ml 1373.2 ml Exam General: noted in distress secondary to shortness of breath Eyes: pupils equal round, Anicteric sclera Neck: Supple nontender, no JVD Cardiac: S1, S2 auscultated, regular rhythm and rate Pulmonary: rhonchi auscultated bilateral lung cabrales with more noted on right side GI: Abdomen soft nontender nondistended, bowel sounds active Extremities: No edema bilateral lower extremities Skin: Clean dry and intact Neurologic: Alert to person place and time and situation Results Result Diagram: 02/21/1633 02/21/1633 Results 24 hrs Laboratory Tests Test 02/20/16 18:36 02/21/16 05:33 02/21/16 08:43 Arterial Blood HCO3 20.9 L 19.8 L Arterial Blood Base Excess -2.7 -5.2 L Arterial Blood Oxygen Saturation 94.1 L 97.1 Jovanny Test ACCEPTAB ACCEPTAB Arterial Blood Gas Puncture Site Left Radial Right Radial Arterial Blood Carboxyhemoglobin 0.3 1.2 Arterial Blood Date Drawn 02/20/2016 8:00:15 PM 02/21/2016 9:00:00 AM Arterial Blood Methemoglobin 0.2 0.4 Arterial Blood pCO2 (Temp correct) 32.4 L 36.8 Arterial Blood pH (Temp corrected) 7.427 7.348 L Arterial Blood pO2 (Temp corrected) 69.9 L 92.5 Blood Gas A-a O2 Differential 105.9 H 583.7 H Blood Gas Modality NASAL CANNULA MASK - NRB Blood Gas Notified Time 02/20/2016 8:16:26 PM 02/21/2016 9:42:00 AM Blood Gas Notified Whom UP JLD Blood Gas Specimen Source Blood arterial Blood arterial Blood Gas Temperature 37.0 37.0 FiO2 30.0 100.0 Oxyhemoglobin Percent 93.6 95.5 Total Hemoglobin 11.7 L 12.9 Alanine Aminotransferase (ALT/SGPT) 24 Albumin 3.1 L Albumin/Globulin Ratio 0.93 Alkaline Phosphatase 80 Anion Gap 12 Aspartate Amino Transf (AST/SGOT) 14 L Basophils # Basophils % Blood Morphology Comment Blood Urea Nitrogen 13 Calcium Level 8.2 L Carbon Dioxide Level 21 Chloride Level 110 Creatinine 1.35 H Differential Comment MANUAL DIFF Direct Bilirubin 0.00 Eosinophils # 0.2 Eosinophils % 1.0 Globulin 3.30 H Glucose Level 120 Hematocrit 32.1 L Hemoglobin 10.4 L Indirect Bilirubin 1.1 Lymphocytes # 1.2 Lymphocytes % 5.0 L Mean Corpuscular Hemoglobin 26.0 L Mean Corpuscular Hemoglobin Concent 32.3 Mean Corpuscular Volume 80.4 L Mean Platelet Volume 9.4 Monocytes # 2.1 H Monocytes % 9.0 Neutrophils # 19.8 H Neutrophils % 85.0 H Nucleated Red Blood Cells # Nucleated Red Blood Cells % Platelet Count 214 Potassium Level 3.9 Red Blood Count 3.99 L Red Cell Distribution Width 18.0 H Sodium Level 139 Total Bilirubin 1.1 Total Protein 6.4 White Blood Count 23.3 H Medications Medications Current Medications Sodium Chloride (NS) 1,000 ml @ 50 mls/hr Q20H IV Last administered on at 10:19; Admin Dose 50 MLS/HR; Start 02/18/16 at 09:13 Ondansetron HCl (Zofran Inj) 4 mg Q6H PRN IV NAUSEA AND/OR VOMITING; Start 02/18/16 at 09:30 Acetaminophen (Tylenol Supp) 650 mg Q4H PRN [place] PAIN LEVEL 1-3 OR FEVER; Start 02/18/16 at 09:30 Morphine Sulfate (morphine) 2 mg Q4H PRN IV PAIN LEVEL 7-10 Last administered on 02/21/16at 09:35; Admin Dose 2 MG; Start 02/18/16 at 09:30 Lorazepam (Ativan) 1 mg Q2H PRN IV ANXIETY Last administered on 02/21/16at 08:39 ; Admin Dose 1 MG; Start 02/18/16 at 09:30 Bisacodyl (Dulcolax Supp) 10 mg DAILY PRN [place] CONSTIPATION; Start 02/18/16 at 09 :30 Pantoprazole 40 mg 40 mg DAILY@06 IV Last administered on 02/21/16at 05:36; Admin Dose 40 MG; Start 02/19/16 at 06:00 Esmolol HCl/ Sodium Chloride (Brevibloc) 250 ml @ 28.8 mls/hr TITRATE IV Last administered on 02/21/16at 10:00; Admin Dose 172.8 MLS/HR; Start 02/18/16 at 09: 30 Ferrous Sulfate 325 mg 325 mg BID PO Last administered on 02/20/16at 21:25; Admin Dose 325 MG; Start 02/19/16 at 21:00 Diltiazem HCl 125 ml @ 5 mls/hr TITRATE IV Last administered on 02/20/16at 21:07 ; Admin Dose 5 MLS/HR; Start 02/19/16 at 14:00 Sodium Nitroprusside/ Dextrose (Nipride/D5W) 250 ml @ 8.64 mls/hr TITRATE IV Last administered on 02/21/16at 07:50; Admin Dose 57.6 MLS/HR; Start 02/19/16 at 15:30 Amlodipine Besylate (Norvasc) 5 mg BID PO Last administered on 02/20/16at 21:19 ; Admin Dose 5 MG; Start 02/20/16 at 21:00 Hydralazine HCl (Apresoline) 10 mg Q6H PRN IV ELEVATED SYSTOLIC BP Last administered on 02/21/16at 07:49; Admin Dose 10 MG; Start 02/20/16 at 22:00 Minoxidil 5 mg 5 mg BID PO Last administered on 02/20/16at 22:53; Admin Dose 5 MG; Start 02/20/16 at 22:00 Vancomycin HCl/ Sodium Chloride (Vancocin/NS) 250 ml @ 83.333 mls/ hr Q12H IVPB ; Start 02/21/16 at 12:00 Miscellaneous Information (*Rx Drug Level Order Reminder*) VANCOMYCIN TROUGH AT 1100 ONCE ONCE XX ; Start 02/22/16 at 11:00; Stop 02/22/16 at 11:01 Metoprolol Tartrate 50 mg 50 mg BID PO ; Start 02/21/16 at 11:30 Nicardipine HCl/ Dextrose (Cardene Iv/D5W) 250 ml @ 50 mls/hr TITRATE IV ; Start 02/21/16 at 12:30 Metoprolol Tartrate (Lopressor) 5 mg Q4H PRN IV HR>55 Hold SBP<100; Start 02/20 at 11:30 Lidocaine (Xylocaine 1% (Mdv) 20 ml) 20 ml ONCE ONCE SC ; Start 02/21/16 at 12: 30; Stop 02/21/16 at 12:31; Status UNV Furosemide (Lasix) 40 mg ONCE ONCE IV ; Start 02/21/16 at 12:30; Stop 02/21/16 at 12:31; Status UNV REJI WADE Feb 21, 2016 12:18
[2016-02-21] MEDS: PIPER-TAZO 3.375 GM IV (PMX) 100 ML IVPB SCH ×2 (12:30→18:00)
[2016-02-21] MEDS ORDERED: FUROSEMIDE 40 MG INJ IV ONE ×2 (12:30→18:30)
[2016-02-21] MEDS ORDERED: LIDOCAINE 1% (MDV) 20 ML INJ SC ONE (12:30)
[2016-02-21] MEDS: DILTIAZEM-D5W 125MG/125ML DRIP 125 ML IV SCH (12:56)
--- NOTE | 2016-02-21 13:35 | RADRPT ---
PROCEDURE: US upper extremity Venous. CLINICAL INDICATION: Left arm swelling TECHNIQUE: Multiple sonographic images of the left upper extremity venous system was obtained util izing grayscale, color-flow, compressive sonography and doppler imaging with augmentation. The imag es were reviewed on a PACS workstation. COMPARISON: None. FINDINGS: There is normal compressibility and flow within the left internal jugular vein, subclavian vein, axi llary vein, brachial, basilic, radial and ulnar veins. The left cephalic vein in the upper arm and antecubital fossa is thrombosed. RPTAT: AA IMPRESSION: Left cephalic vein thrombosis. No evidence of deep vein thrombosis. .Chi Kwan MD, MD Date Time Electronically viewed and signed by .Chi Kwan MD, on 02/21/2016 13:34 .S/
[2016-02-21 15:00] LABS: AADO2 Arterial 620.8 mmHg (7.0-24.0); Allen Test ACCEPTAB; Arterial Base Excess -5.7 mmol/L (-3.0-3); Arterial COHb 0.3 % (0.0-3.0); Arterial Fraction of Oxyhgb 91.5 % (93.0-99.0); Arterial HCO3 18.2 mmol/L (22.0-26.0); Arterial MetHb 0.2 % (0.0-1.5); Arterial Total Hemglobin 11.7 g/dl (12.0-18.0); MODE MASK - NRB
[2016-02-21] MEDS: VANCOMYCIN 1.25 GM in SOD CHLORIDE 0.9% 250 ML IVPB SCH (15:09)
[2016-02-21] MEDS ORDERED: PROPOFOL 100 ML ONE (16:29)
[2016-02-21] MEDS: PROPOFOL 100 ML IV SCH (16:30)
--- NOTE | 2016-02-21 17:09 | RADRPT ---
PROCEDURE: XR Chest. CLINICAL INDICATION: Status post intubation TECHNIQUE: Single portable view of the chest was obtained COMPARISON: Same Day FINDINGS: There is a new endotracheal tube 3.4 cm above the francisco. There are worsening extensive right upper lobe and right lower lobe infiltrates. There is moderate cardiomegaly. The thoracic aorta is calcified. RPTAT: AA IMPRESSION: New endotracheal tube in appropriate position. Worsening extensive right upper lobe and right lower lobe consolidation. .Chi Kwan MD, MD Date Time Electronically viewed and signed by .Chi Kwan MD, MD on 02/21/2016 17:08 .S/
--- NOTE | 2016-02-21 17:22 | RADRPT ---
PROCEDURE: US guidance for PICC line CLINICAL INDICATION: PICC line placement TECHNIQUE: Multiple real-time images were acquired of the patient's arm utilizing a high resolutio n transducer. This was performed by the PICC line nurse for venous access. COMPARISON: None FINDINGS: Ultrasound guidance for PICC line placement. IMPRESSION: Ultrasound guidance for PICC line placement. RPTAT: AA .Chi Kwan MD, MD Date Time Electronically viewed and signed by .Chi Kwan MD, on 02/21/2016 17:21 .S/
[2016-02-21 17:41] LABS: AADO2 Arterial 615.5 mmHg (7.0-24.0); Allen Test ACCEPTAB; Arterial Base Excess -6.9 mmol/L (-3.0-3); Arterial COHb 0.3 % (0.0-3.0); Arterial Fraction of Oxyhgb 87.5 % (93.0-99.0); Arterial MetHb 0.2 % (0.0-1.5); Arterial Total Hemglobin 12.2 g/dl (12.0-18.0); MODE VENT - AC
--- NOTE | 2016-02-21 18:08 | RADRPT ---
PROCEDURE: XR Chest. CLINICAL INDICATION: Check PICC line position. TECHNIQUE: Single frontal view. COMPARISON: Prior study done earlier the same day. FINDINGS: There is a right arm PICC line with the tip in the cavoatrial junction. The endotracheal tube remai ns in satisfactory position. There is extensive consolidation throughout the right lung, unchanged. The left lung is clear. The heart size is normal. There is no pleural effusion. There is no pneumothorax. IMPRESSION: 1. Satisfactory position of right arm PICC line. 2. Endotracheal tube in satisfactory position. 3. Extensive consolidation throughout the right lung, unchanged. RPTAT: QQ .Bk Lujan MD, MD Date Time Electronically viewed and signed by .Bk Lujan MD, MD on 02/21/2016 18:07 .R/
[2016-02-21] MEDS: SOD CHLORIDE 0.9% 1,000 ML IV SCH (18:29)
[2016-02-21] MEDS ORDERED: morphine 2 MG INJ IV ONE (18:30)
[2016-02-21] MEDS: FENTAnyl 1,000 MCG in DEXTROSE 5% 80 ML IV SCH (18:37)
[2016-02-21] MEDS: IPRATROPIUM (HFA) 12.9 GM INHALER INH SCH (19:45)
[2016-02-21] MEDS: ALBUTEROL HFA 8 GM INHALER INH SCH (19:45)
[2016-02-21 20:30] LABS: AADO2 Arterial 615.4 mmHg (7.0-24.0); Allen Test ACCEPTAB; Arterial Base Excess -5.3 mmol/L (-3.0-3); Arterial COHb 0.3 % (0.0-3.0); Arterial Fraction of Oxyhgb 85.1 % (93.0-99.0); Arterial HCO3 20.9 mmol/L (22.0-26.0); Arterial MetHb 0.1 % (0.0-1.5); Arterial Total Hemglobin 12.2 g/dl (12.0-18.0); MODE VENT - AC
--- NOTE | 2016-02-21 20:59 | CONS ---
DATE OF ADMISSION: 02/18/2016 DATE OF CONSULTATION: REASON FOR CONSULTATION: Hypoxemia, respiratory distress. HISTORY OF PRESENT ILLNESS: This is a 45-year-old gentleman with a history of essential hypertensio n, presented to the emergency room on 02/18/2016 with abdominal pain, acute-onset, sharp, shooting, occasionally radiating to his back. An emergent CT of the abdomen was performed; demonstrated type B descending aortic dissection. The patient was admitted to the intensive care unit. Commenced on intravenous antihypertensives. He has remained on multiple intravenous antihypertensives, and over the past 2 days, has had worsening encephalopathy and this afternoon had worsening labored breathing , requiring emergent intubation and mechanical ventilation. The patient subsequently emergently int ubated and sedated, placed on mechanical ventilation. Initial chest x-ray showed dense, right-sided infiltrate consistent with either aspiration or healthcare-associated pneumonia. PAST MEDICAL HISTORY 1. Essential hypertension now with hypertensive urgency. 2. Aortic dissection. 3. Incomplete data. MEDICATIONS: Per chart. ALLERGIES: NONE. SOCIAL HISTORY: Nonsmoker, no alcohol, no history of drug use. FAMILY HISTORY: Noncontributory. SYSTEMS REVIEW: A 12-point review of systems currently unable to perform. PHYSICAL EXAMINATION GENERAL: Well-nourished, well-developed gentleman, intubated on mechanical ventilation. VITAL SIGNS: Temperature 99, pulse is 59, blood pressure 105/71, O2 saturation 85% on FiO2. NECK: Supple. No JVD, lymphadenopathy. CARDIAC: S1, S2. No added sounds or murmurs. CHEST: Diminished air entry bilaterally. ABDOMEN: Soft, nontender. No guarding or rebound. EXTREMITIES: No cyanosis, clubbing or edema. NEUROLOGIC: Unable to assess. LABORATORIES: White count 23.3, hemoglobin 10.4, platelets of 214. Chemistry: BUN 13, creatinine 1.35. Arterial blood gas pH 7.3, pCO2 of 39, pO2 of 58. INR was 1.0. MICROBIOLOGY: Urinalysis unremarkable. CHEST X-RAY: As above. IMPRESSION 1. Hypertensive urgency. 2. Encephalopathy, possibly secondary to antihypertensive medications. 3. Aspiration pneumonia with hypoxemic respiratory failure. PLAN The patient will require: 1. Continue mechanical ventilation. 2. Broad-spectrum antibiotic coverage. 3. Aspiration precautions. 4. Deep venous thrombosis and gastrointestinal prophylaxis. 5. Cardiac recommendations. Dictated By: ANAYA BREWSTER MD SV/EFRAIN Conf#: [id number] DID#: [id number]
--- NOTE | 2016-02-21 23:14 | PN ---
Date/Time of Note Date/Time of Note DATE: 02/21/16 TIME: 23:13 Assessment/Plan Lines/Catheters IV Catheter Type (from Nrsg): PICC Line Smalls in Place (from Nrsg): Yes Assessment/Plan Chief Complaint/Hosp Course IMPRESSION: Type B aortic dissection. The patient's blood pressure more controlled RECOMMENDATIONS: At this time, we would continue blood pressure management, monitor vital signs and laboratory values in an intensive care unit setting. I discussed with the patient and Dr. Lang [place] to TELE Problems: Subjective 24 Hr Interval Summary Constitutional: improved Pain Control: mild Exam/Review of Systems Vital Signs Vitals Vital Signs Date Time Temp Pulse Resp B/P Pulse Ox O2 Delivery O2 Flow Rate FiO2 02/21/16 22:00 98.7 59 21 130/68 99 Mechanical Ventilator 02/21/16 17:48 100 02/21/16 16:30 15.0 Intake and Output 02/20/16 02/20/16 02/21/16 15:00 23:00 07:00 Intake Total 180 ml 3631.0 ml 1883.2 ml Output Total 860 ml 725 ml 510 ml Balance -680 ml 2906.0 ml 1373.2 ml Exam ENMT: mucosa pink and moist, nl external ears & nose, nl lips & teeth, nl nasal mucosa & septum Neck: non-tender, supple Respiratory: clear to auscultation, normal air movement Cardiovascular: nl pulses, regular rate and rhythm Results Result Diagram: 02/21/16 0533 02/21/16 0533 KAYLYN RADFORD MD Feb 21, 2016 23:14
[2016-02-22] VITALS (105 sets, daily range): BP systolic 110–195; BP diastolic 49–91; PULSE 46–76; RESP 13–30
[2016-02-22] MEDS: ESMOLOL 250 ML IV SCH ×5 (00:46→16:19)
[2016-02-22] MEDS: PIPER-TAZO 3.375 GM IV (PMX) 100 ML IVPB SCH ×2 (00:49→05:44)
[2016-02-22] MEDS: VANCOMYCIN 1.25 GM in SOD CHLORIDE 0.9% 250 ML IVPB SCH ×2 (00:49→12:00)
[2016-02-22] MEDS: IPRATROPIUM (HFA) 12.9 GM INHALER INH SCH ×4 (02:25→21:02)
[2016-02-22] MEDS: ALBUTEROL HFA 8 GM INHALER INH SCH ×4 (02:25→21:03)
[2016-02-22] MEDS: PROPOFOL 100 ML IV SCH ×3 (04:03→18:25)
[2016-02-22 04:55] LABS: HEMOGLOBIN 10.9 g/dl (14.0-18.0); MEAN CORPUSCULAR HEMOGLOBIN 26.3 pg (29.0-33.0); MEAN CORPUSCULAR HGB CONC 32.9 g/dl (32.0-37.0); PLATELET COUNT 215 10^3/UL (140-440); RED BLOOD COUNT 4.13 10^6/ul (4.70-6.10); RED CELL DISTRIBUTION WIDTH 18.8 % (11.5-14.5); UNCORRECTED WBC 22.5 10^3/ul (4.8-10.8); WHITE BLOOD COUNT 22.5 10^3/ul (4.8-10.8)
[2016-02-22] MEDS: FENTAnyl 1,000 MCG in DEXTROSE 5% 80 ML IV SCH ×2 (05:35→17:46)
[2016-02-22 05:45] LABS: POTASSIUM 4.1 mmol/L (3.5-5.1)
[2016-02-22] MEDS: PANTOPRAZOLE 40 MG INJ IV SCH (05:45)
[2016-02-22 05:47] LABS: BILIRUBIN,INDIRECT 0.9 mg/dl (0-1.1); BILIRUBIN,TOTAL 0.9 mg/dl (0.2-1.3); CREATININE 2.07 mg/dl (0.61-1.24)
[2016-02-22 05:48] LABS: ALBUMIN/GLOBULIN RATIO 0.9; TOTAL PROTEIN 6.3 g/dl (6.1-8.1)
[2016-02-22 05:49] LABS: CALCIUM 7.9 mg/dl (8.4-10.2)
[2016-02-22 05:56] LABS: CONDITION 1; LH ANALYZER COMMENTS 1; SUSPECT 1
[2016-02-22 08:10] LABS: AADO2 Arterial 468.6 mmHg (7.0-24.0); Allen Test ACCEPTAB; Arterial Base Excess -5.2 mmol/L (-3.0-3); Arterial HCO3 21.2 mmol/L (22.0-26.0); MODE VENT - AC
--- NOTE | 2016-02-22 08:43 | RADRPT ---
PROCEDURE: XR Chest. CLINICAL INDICATION: Shortness of breath TECHNIQUE: Single view of the chest COMPARISON: Chest radiograph February 21, 2016 FINDINGS: The tip of the endotracheal tube is 4.1 cm above the francisco. There is a right-sided PICC with its t ip at the cavoatrial junction. The patient is rotated. There is redemonstration of extensive right lung airspace opacity, similar to the prior study. There is also a possible small new left mid lung opacity. The cardiac silhouette is moderately enlarged. There is no pleural effusion. There is no pneumothorax. There is no acute osseous abnormality. IMPRESSION: 1. Extensive right lung consolidation, similar to prior. Patient rotation somewhat limits evaluati on. 2. Possible new small left mid lung opacity. 3. Lines and tubes as above. RPTAT: UU .Scott Cantor MD, Date Time Electronically viewed and signed by .Scott Cantor MD, on 02/22/2016 08:42 .K/
[2016-02-22] MEDS: FERROUS SULFATE (EC) 325 MG TAB PO SCH (09:00)
[2016-02-22] MEDS: AMLODIPINE 5 MG TAB PO SCH ×2 (09:15→20:26)
[2016-02-22] MEDS: MINOXIDIL 2.5 MG TAB PO SCH ×2 (09:15→20:27)
[2016-02-22] MEDS: METOPROLOL 50 MG TAB PO SCH ×3 (09:15→21:20)
[2016-02-22 10:06] LABS: EOSINOPHILS # 0.5 10^3/ul (0.0-0.5); LYMPHOCYTES # 1.8 10^3/ul (0.8-2.9); MONOCYTE # 0.5 10^3/ul (0.3-0.9); MYELOCYTES # 0.2
--- NOTE | 2016-02-22 10:13 | CONS ---
Date/Time of Note Date/Time of Note DATE: 02/22/16 TIME: 10:11 Consult Date/Type/Reason Admit Date/Time Feb 18, 2016 at 09:14 Initial Consult Date Type of Consultation: pulmonary Ordering Provider: TIFFANIE HEARD MD Subjective Patient remains intubated on mechanical ventilation Moderate oral secretions Continues intravenous antihypertensives Objective Vital Signs Date Time Temp Pulse Resp B/P Pulse Ox O2 Delivery O2 Flow Rate FiO2 02/22/16 09:30 51 20 137/64 98 02/22/16 09:00 Mechanical Ventilator 02/22/16 08:00 98.6 02/22/16 07:53 80 02/21/16 16:30 15.0 Intake and Output 02/21/16 02/21/16 02/22/16 15:00 23:00 07:00 Intake Total 2128.2 ml 1679.80 ml 1091.54 ml Output Total 1225 ml 700 ml 670 ml Balance 903.2 ml 979.80 ml 421.54 ml PHYSICAL EXAMINATION GENERAL: Well-nourished, well-developed gentleman, intubated on mechanical ventilation. VITAL SIGNS: As above NECK: Supple. No JVD, lymphadenopathy. CARDIAC: S1, S2. No added sounds or murmurs. CHEST: Diminished air entry bilaterally. ABDOMEN: Soft, nontender. No guarding or rebound. EXTREMITIES: No cyanosis, clubbing or edema. NEUROLOGIC: Unable to assess. Results/Medications Result Diagram: 02/22/16 0415 02/22/16 0415 Results 24 hrs Laboratory Tests Test 02/21/16 15:00 02/21/16 17:15 02/21/16 20:00 02/22/16 04:15 Arterial Blood HCO3 18.2 L 19.0 L 20.9 L Arterial Blood Base Excess -5.7 L -6.9 L -5.3 L Arterial Blood Oxygen Saturation 92.0 L 87.9 L 85.4 L Jovanny Test ACCEPTAB ACCEPTAB ACCEPTAB Arterial Blood Gas Puncture Site Left Radial Right Radial Right Radial Arterial Blood Carboxyhemoglobin 0.3 0.3 0.3 Arterial Blood Date Drawn 02/21/2016 2:50:51 PM 02/21/2016 5:25:51 PM 02/21/2016 8:20:33 PM Arterial Blood Methemoglobin 0.2 0.2 0.1 Arterial Blood pCO2 (Temp correct) 30.4 L 39.3 43.4 Arterial Blood pH (Temp corrected) 7.394 7.302 L 7.300 L Arterial Blood pO2 (Temp corrected) 61.8 L 58.2 L 54.2 *L Blood Gas A-a O2 Differential 620.8 H 615.5 H 615.4 H Blood Gas Modality MASK - NRB VENT - AC VENT - AC Blood Gas Notified Time 02/21/2016 2:59:45 PM 02/21/2016 5:41:05 PM 02/21/2016 8:29:25 PM Blood Gas Notified Whom MILLA LAMB RCP MA Blood Gas Specimen Source Blood arterial Blood arterial Blood arterial Blood Gas Temperature 37.0 37.0 37.0 FiO2 100.0 100.0 100.0 Oxyhemoglobin Percent 91.5 L 87.5 L 85.1 L Total Hemoglobin 11.7 L 12.2 12.2 Blood Gas Actual Respiration Rate 20 21 Blood Gas Critical Value Read Back MEENA BENNETT TMEHROTRA RN Blood Gas Low PEEP Setting 8.0 12.0 Blood Gas Respiration Rate 20.0 20.0 Blood Gas Tidal Volume 550.0 550.0 Alanine Aminotransferase (ALT/SGPT) 19 Albumin 3.0 L Albumin/Globulin Ratio 0.90 Alkaline Phosphatase 88 Anion Gap 15 Aspartate Amino Transf (AST/SGOT) 24 # Band Neutrophils % 15.0 H Blood Morphology Comment Blood Urea Nitrogen 19 Calcium Level 7.9 L Carbon Dioxide Level 20 L Chloride Level 105 Creatinine 2.07 H Differential Comment MANUAL DIFF Direct Bilirubin 0.00 Eosinophils # 0.5 Eosinophils % 2.0 Globulin 3.30 H Glucose Level 118 Hematocrit 33.0 L Hemoglobin 10.9 L Indirect Bilirubin 0.9 Lymphocytes # 1.8 Lymphocytes % 8.0 L Mean Corpuscular Hemoglobin 26.3 L Mean Corpuscular Hemoglobin Concent 32.9 Mean Corpuscular Volume 80.0 L Mean Platelet Volume 10.0 Metamyelocytes # 0.2 Metamyelocytes % 1.0 H Monocytes # 0.5 Monocytes % 2.0 Myelocytes # 0.2 Myelocytes % 1.0 H Neutrophils # 16.0 H Neutrophils % 71.0 Platelet Count 215 Potassium Level 4.1 Red Blood Count 4.13 L Red Cell Distribution Width 18.8 H Sodium Level 136 Total Bilirubin 0.9 Total Protein 6.3 White Blood Count 22.5 H Test 02/22/16 07:00 Arterial Blood HCO3 21.2 L Arterial Blood Base Excess -5.2 L Jovanny Test ACCEPTAB Arterial Blood Gas Puncture Site Right Radial Arterial Blood Date Drawn 02/22/2016 7:20:11 AM Arterial Blood pCO2 (Temp correct) 44.3 Arterial Blood pH (Temp corrected) 7.298 *L Arterial Blood pO2 (Temp corrected) 55.3 L Blood Gas A-a O2 Differential 468.6 H Blood Gas Actual Respiration Rate 21 Blood Gas Critical Value Read Back M MADAI RN Blood Gas Low PEEP Setting 16.0 Blood Gas Modality VENT - AC Blood Gas Notified Time 02/22/2016 8:10:21 AM Blood Gas Notified Whom SANTHOSHD Blood Gas Respiration Rate 20.0 Blood Gas Specimen Source Blood arterial Blood Gas Temperature 37.0 Blood Gas Tidal Volume 550.0 FiO2 80.0 Medications Current Medications Sodium Chloride (NS) 1,000 ml @ 50 mls/hr Q20H IV Last administered on at 10:19; Admin Dose 50 MLS/HR; Start 02/18/16 at 09:13 Ondansetron HCl (Zofran Inj) 4 mg Q6H PRN IV NAUSEA AND/OR VOMITING; Start 02/18/16 at 09:30 Acetaminophen (Tylenol Supp) 650 mg Q4H PRN [place] PAIN LEVEL 1-3 OR FEVER; Start 02/18/16 at 09:30 Morphine Sulfate (morphine) 2 mg Q4H PRN IV PAIN LEVEL 7-10 Last administered on 02/21/16at 09:35; Admin Dose 2 MG; Start 02/18/16 at 09:30 Lorazepam (Ativan) 1 mg Q2H PRN IV ANXIETY Last administered on 02/21/16at 13:57 ; Admin Dose 1 MG; Start 02/18/16 at 09:30 Bisacodyl (Dulcolax Supp) 10 mg DAILY PRN [place] CONSTIPATION; Start 02/18/16 at 09 :30 Pantoprazole 40 mg 40 mg DAILY@06 IV Last administered on 02/22/16at 05:45; Admin Dose 40 MG; Start 02/19/16 at 06:00 Esmolol HCl/ Sodium Chloride 250 ml @ 28.8 mls/hr TITRATE IV Last administered on 02/22/16at 00:46; Admin Dose 13.542 MLS/HR; Start 02/18/16 at 09: 30 Diltiazem HCl 125 ml @ 5 mls/hr TITRATE IV Last administered on 02/21/16at 12:56 ; Admin Dose 15 MLS/HR; Start 02/19/16 at 14:00 Sodium Nitroprusside/ Dextrose (Nipride/D5W) 250 ml @ 8.64 mls/hr TITRATE IV Last administered on 02/21/16at 17:37; Admin Dose 57.6 MLS/HR; Start 02/19/16 at 15:30 Amlodipine Besylate (Norvasc) 5 mg BID PO Last administered on 02/22/16 09:15 ; Admin Dose 5 MG; Start 02/20/16 at 21:00 Hydralazine HCl (Apresoline) 10 mg Q6H PRN IV ELEVATED SYSTOLIC BP Last administered on 02/21/16at 07:49; Admin Dose 10 MG; Start 02/20/16 at 22:00 Minoxidil 5 mg 5 mg BID PO Last administered on 02/22/16at 09:15; Admin Dose 5 MG; Start 02/20/16 at 22:00 Vancomycin HCl/ Sodium Chloride (Vancocin/NS) 250 ml @ 83.333 mls/ hr Q12H IVPB Last administered on 02/22/16at 00:49; Admin Dose 83.333 MLS/HR; Start 02/21/16 at 12:00 Miscellaneous Information (*Rx Drug Level Order Reminder*) VANCOMYCIN TROUGH AT 1100 ONCE ONCE XX ; Start 02/22/16 at 11:00; Stop 02/22/16 at 11:01 Metoprolol Tartrate 50 mg 50 mg BID PO Last administered on 02/22/16at 09:15; Admin Dose 50 MG; Start 02/21/16 at 11:30 Nicardipine HCl/ Dextrose (Cardene Iv/D5W) 250 ml @ 50 mls/hr TITRATE IV Last administered on 02/22/16at 05:26; Admin Dose 70 MLS/HR; Start 02/21/16 at 12:30 Metoprolol Tartrate 5 mg 5 mg Q4H PRN IV HR>55 Hold SBP<100; Start 02/21/16 at 11:30 Piperacillin Sod/ Tazobactam Sod 100 ml @ 200 mls/hr Q6 IVPB Last administered on 02/22/16at 05:44; Admin Dose 200 MLS/HR; Start 02/21/16 at 12:30 Propofol 100 ml @ 3.189 mls/ hr Q12H IV Last administered on 02/22/16at 04:03; Admin Dose 12.756 MLS/HR; Start 02/21/16 at 16:30 Fentanyl/Dextrose (D5W) 100 ml @ 0 mls/hr TITRATE IV Last administered on at 05:35; Admin Dose 10 MLS/HR; Start 02/21/16 at 16:30 IV Flush (NS 10 ml) 10 ml PRN PRN IV IV PROTOCOL; Start 02/21/16 at 18:30 Ferrous Sulfate (Feosol Liquid Cup) 300 mg BID GTB ; Start 02/22/16 at 10:00 Assessment/Plan Chief Complaint/Hosp Course IMPRESSION 1. Hypertensive urgency. Descending aortic aneurysm 2. Encephalopathy, possibly secondary to antihypertensive medications. 3. Aspiration pneumonia with hypoxemic respiratory failure. 4. Renal insufficiency PLAN The patient will require: 1. Continue mechanical ventilation. 2. Broad-spectrum antibiotic coverage. 3. Aspiration precautions. 4. Deep venous thrombosis and gastrointestinal prophylaxis. 5. Cardiac recommendations. Vascular recommendations 6. consider reimaging abdomen Disposition Case discussed with patient's fianc at bedside Problems: ANAYA BREWSTER [facility], [facility] Feb 22, 2016 10:13
[2016-02-22] MEDS: FERROUS SULFATE 60 MG/ML 5ML CUP GTB SCH ×2 (10:53→20:26)
--- NOTE | 2016-02-22 11:56 | CONS ---
Date/Time of Note Date/Time of Note DATE: 02/22/16 TIME: 11:52 Assessment/Plan Assessment/Plan Chief Complaint/Hosp Course Imp: 1.HTN emergency-NL EF by echo this admit-remains uncontrolled on esmolol/nipride 2.Aortic dissection-type B 3.abnl ecg-lateral TWI-negative troponin x 3 since admit 4.anxiety 5.ARF 6. Pericardial effusion by echo-small with NL EF Recc: -Tele in ICU -Continue esmolol/nicardipine IV -Follow volume status closely -serial ecg's -Slow uptitration of PO anti-hypertensives with transition off of IV drips -ongoing surgical follow-up Problems: Consultation Date/Type/Reason Admit Date/Time Feb 18, 2016 at 09:14 Initial Consult Date 02/19/2016 Type of Consultation: Cardiology Reason for Consultation HTN/aortic dissection Referring Provider: TIFFANIE HEARD MD Exam/Review of Systems Vital Signs Vitals Vital Signs Date Time Temp Pulse Resp B/P Pulse Ox O2 Delivery O2 Flow Rate FiO2 02/22/16 11:45 49 20 129/63 96 02/22/16 11:20 80 02/22/16 11:00 Mechanical Ventilator 02/22/16 08:00 98.6 02/21/16 16:30 15.0 Intake and Output 02/21/16 02/21/16 02/22/16 15:00 23:00 07:00 Intake Total 2128.2 ml 1679.80 ml 1091.54 ml Output Total 1225 ml 700 ml 670 ml Balance 903.2 ml 979.80 ml 421.54 ml Exam Review of Systems: CONSTITUTIONAL: No fevers, chills. PULMONARY: intubated CARDIOVASCULAR: No chest pain/palpitations GASTROINTESTINAL: No nausea/vomiting. GENITOURINARY: No hematuria/dysuria. MUSCULOSKELETAL: No myagias/arthalgias. PSYCHIATRIC: The patient denies depression. NEUROLOGIC: sedated Constitutional: other (sedated) Psych: no complaints Head: normocephalic ENMT: mucosa pink and moist Neck: jvd (8-9 cm water), supple Respiratory: diminished breath sounds (R>L) Cardiovascular: regular rate and rhythm Gastrointestinal: non-tender, soft Musculoskeletal: muscle tone (normal) Extremities: edema (none) Neurological: other (sedated) Results Result Diagram: 02/22/16 0415 02/22/16 0415 Results 24 hrs Laboratory Tests Test 02/21/16 15:00 02/21/16 17:15 02/21/16 20:00 02/22/16 04:15 Arterial Blood HCO3 18.2 L 19.0 L 20.9 L Arterial Blood Base Excess -5.7 L -6.9 L -5.3 L Arterial Blood Oxygen Saturation 92.0 L 87.9 L 85.4 L Jovanny Test ACCEPTAB ACCEPTAB ACCEPTAB Arterial Blood Gas Puncture Site Left Radial Right Radial Right Radial Arterial Blood Carboxyhemoglobin 0.3 0.3 0.3 Arterial Blood Date Drawn 02/21/2016 2:50:51 PM 02/21/2016 5:25:51 PM 02/21/2016 8:20:33 PM Arterial Blood Methemoglobin 0.2 0.2 0.1 Arterial Blood pCO2 (Temp correct) 30.4 L 39.3 43.4 Arterial Blood pH (Temp corrected) 7.394 7.302 L 7.300 L Arterial Blood pO2 (Temp corrected) 61.8 L 58.2 L 54.2 *L Blood Gas A-a O2 Differential 620.8 H 615.5 H 615.4 H Blood Gas Modality MASK - NRB VENT - AC VENT - AC Blood Gas Notified Time 02/21/2016 2:59:45 PM 02/21/2016 5:41:05 PM 02/21/2016 8:29:25 PM Blood Gas Notified Whom MILLA LAMB RCP [place] Blood Gas Specimen Source Blood arterial Blood arterial Blood arterial Blood Gas Temperature 37.0 37.0 37.0 FiO2 100.0 100.0 100.0 Oxyhemoglobin Percent 91.5 L 87.5 L 85.1 L Total Hemoglobin 11.7 L 12.2 12.2 Blood Gas Actual Respiration Rate 20 21 Blood Gas Critical Value Read Back MEENA BENNETT TMEHROTRA RN Blood Gas Low PEEP Setting 8.0 12.0 Blood Gas Respiration Rate 20.0 20.0 Blood Gas Tidal Volume 550.0 550.0 Alanine Aminotransferase (ALT/SGPT) 19 Albumin 3.0 L Albumin/Globulin Ratio 0.90 Alkaline Phosphatase 88 Anion Gap 15 Aspartate Amino Transf (AST/SGOT) 24 # Band Neutrophils % 15.0 H Blood Morphology Comment Blood Urea Nitrogen 19 Calcium Level 7.9 L Carbon Dioxide Level 20 L Chloride Level 105 Creatinine 2.07 H Differential Comment MANUAL DIFF Direct Bilirubin 0.00 Eosinophils # 0.5 Eosinophils % 2.0 Globulin 3.30 H Glucose Level 118 Hematocrit 33.0 L Hemoglobin 10.9 L Indirect Bilirubin 0.9 Lymphocytes # 1.8 Lymphocytes % 8.0 L Mean Corpuscular Hemoglobin 26.3 L Mean Corpuscular Hemoglobin Concent 32.9 Mean Corpuscular Volume 80.0 L Mean Platelet Volume 10.0 Metamyelocytes # 0.2 Metamyelocytes % 1.0 H Monocytes # 0.5 Monocytes % 2.0 Myelocytes # 0.2 Myelocytes % 1.0 H Neutrophils # 16.0 H Neutrophils % 71.0 Platelet Count 215 Potassium Level 4.1 Red Blood Count 4.13 L Red Cell Distribution Width 18.8 H Sodium Level 136 Total Bilirubin 0.9 Total Protein 6.3 White Blood Count 22.5 H Test 02/22/16 07:00 Arterial Blood HCO3 21.2 L Arterial Blood Base Excess -5.2 L Jovanny Test ACCEPTAB Arterial Blood Gas Puncture Site Right Radial Arterial Blood Date Drawn 02/22/2016 7:20:11 AM Arterial Blood pCO2 (Temp correct) 44.3 Arterial Blood pH (Temp corrected) 7.298 *L Arterial Blood pO2 (Temp corrected) 55.3 L Blood Gas A-a O2 Differential 468.6 H Blood Gas Actual Respiration Rate 21 Blood Gas Critical Value Read Back M MADAI RN Blood Gas Low PEEP Setting 16.0 Blood Gas Modality VENT - AC Blood Gas Notified Time 02/22/2016 8:10:21 AM Blood Gas Notified Whom JLD Blood Gas Respiration Rate 20.0 Blood Gas Specimen Source Blood arterial Blood Gas Temperature 37.0 Blood Gas Tidal Volume 550.0 FiO2 80.0 Medications Medications Current Medications Sodium Chloride (NS) 1,000 ml @ 50 mls/hr Q20H IV Last administered on at 10:19; Admin Dose 50 MLS/HR; Start 02/18/16 at 09:13 Ondansetron HCl (Zofran Inj) 4 mg Q6H PRN IV NAUSEA AND/OR VOMITING; Start 02/18/16 at 09:30 Acetaminophen (Tylenol Supp) 650 mg Q4H PRN [place] PAIN LEVEL 1-3 OR FEVER; Start 02/18/16 at 09:30 Morphine Sulfate (morphine) 2 mg Q4H PRN IV PAIN LEVEL 7-10 Last administered on 02/21/16 09:35; Admin Dose 2 MG; Start 02/18/16 at 09:30 Lorazepam (Ativan) 1 mg Q2H PRN IV ANXIETY Last administered on 02/21/16 13:57 ; Admin Dose 1 MG; Start 02/18/16 at 09:30 Bisacodyl (Dulcolax Supp) 10 mg DAILY PRN [place] CONSTIPATION; Start 02/18/16 at 09 :30 Pantoprazole 40 mg 40 mg DAILY@06 IV Last administered on 02/22/16 05:45; Admin Dose 40 MG; Start 02/19/16 at 06:00 Esmolol HCl/ Sodium Chloride 250 ml @ 28.8 mls/hr TITRATE IV Last administered on 02/22/16 10:59; Admin Dose 86.4 MLS/HR; Start 02/18/16 at 09:30 Diltiazem HCl 125 ml @ 5 mls/hr TITRATE IV Last administered on 02/21/16 12:56 ; Admin Dose 15 MLS/HR; Start 02/19/16 at 14:00 Sodium Nitroprusside/ Dextrose (Nipride/D5W) 250 ml @ 8.64 mls/hr TITRATE IV Last administered on 02/21/16 17:37; Admin Dose 57.6 MLS/HR; Start 02/19/16 at 15:30 Amlodipine Besylate (Norvasc) 5 mg BID PO Last administered on 02/22/16 09:15 ; Admin Dose 5 MG; Start 02/20/16 at 21:00 Hydralazine HCl (Apresoline) 10 mg Q6H PRN IV ELEVATED SYSTOLIC BP Last administered on 02/21/16 07:49; Admin Dose 10 MG; Start 02/20/16 at 22:00 Minoxidil 5 mg 5 mg BID PO Last administered on 02/22/16 09:15; Admin Dose 5 MG; Start 02/20/16 at 22:00 Vancomycin HCl/ Sodium Chloride (Vancocin/NS) 250 ml @ 83.333 mls/ hr Q12H IVPB Last administered on 02/22/16 00:49; Admin Dose 83.333 MLS/HR; Start 02/21/16 at 12:00 Metoprolol Tartrate 50 mg 50 mg BID PO Last administered on 02/22/16at 09:15; Admin Dose 50 MG; Start 02/21/16 at 11:30 Nicardipine HCl/ Dextrose (Cardene Iv/D5W) 250 ml @ 50 mls/hr TITRATE IV Last administered on 02/22/16at 11:40; Admin Dose 150 MLS/HR; Start 02/21/16 at 12:30 Metoprolol Tartrate 5 mg 5 mg Q4H PRN IV HR>55 Hold SBP<100; Start 02/21/16 at 11:30 Propofol 100 ml @ 3.189 mls/ hr Q12H IV Last administered on 02/22/16at 10:59; Admin Dose 12.756 MLS/HR; Start 02/21/16 at 16:30 Fentanyl/Dextrose (D5W) 100 ml @ 0 mls/hr TITRATE IV Last administered on at 05:35; Admin Dose 10 MLS/HR; Start 02/21/16 at 16:30 IV Flush (NS 10 ml) 10 ml PRN PRN IV IV PROTOCOL; Start 02/21/16 at 18:30 Ferrous Sulfate 300 mg 300 mg BID GTB Last administered on 02/22/16at 10:53; Admin Dose 300 MG; Start 02/22/16 at 10:00 Meropenem/Sodium Chloride (Merrem/NS) 100 ml @ 200 mls/hr Q12 IVPB ; Start 02/22/16 at 21:00; Status JUNAID VANG Feb 22, 2016 11:56
--- NOTE | 2016-02-22 12:07 | QN ---
Documentation Comment Call to ICU for consultation for intubation the eventing of 02/20. Patient destauring on BiPap wiht AMS. History of Aortic Aneurysm. ET intubation note: RSI was used with 20 Etomidated and 100 mg Rocuronium. Preoxygenated with bag mask ventolation. Size 7.5 ET tube was easily inserted throuh visualized cord using mac 4 blade. Positive ETCO2 color changed, condensation and 100 percent O2 sat post procedure. Equal breath sounds bilat. JOSELIN EDWARD DO Feb 22, 2016 12:07
[2016-02-22] MEDS: MEROPENEM 500 MG in SOD CHLORIDE 0.9% 100 ML IVPB SCH ×2 (13:06→20:29)
[2016-02-22] MEDS: SOD CHLORIDE 0.9% 1,000 ML IV SCH (13:13)
--- NOTE | 2016-02-22 13:21 | PN ---
Date/Time of Note Date/Time of Note DATE: 02/22/16 TIME: 13:21 Assessment/Plan Lines/Catheters IV Catheter Type (from Nrsg): PICC Line Smalls in Place (from Nrsg): Yes Assessment/Plan Chief Complaint/Hosp Course IMPRESSION: Type B aortic dissection. The patient's blood pressure more controlled RECOMMENDATIONS: At this time, we would continue blood pressure management, monitor vital signs and laboratory values in an intensive care unit setting. I discussed with the patient and Dr. Lang [place] to TELE Problems: Subjective 24 Hr Interval Summary Constitutional: improved Pain Control: mild Exam/Review of Systems Vital Signs Vitals Vital Signs Date Time Temp Pulse Resp B/P Pulse Ox O2 Delivery O2 Flow Rate FiO2 02/22/16 12:00 49 02/22/16 11:45 20 129/63 96 02/22/16 11:20 80 02/22/16 11:00 Mechanical Ventilator 02/22/16 08:00 98.6 02/21/16 16:30 15.0 Intake and Output 02/21/16 02/21/16 02/22/16 15:00 23:00 07:00 Intake Total 2128.2 ml 1679.80 ml 1091.54 ml Output Total 1225 ml 700 ml 670 ml Balance 903.2 ml 979.80 ml 421.54 ml Exam Neck: non-tender, supple Respiratory: clear to auscultation, normal air movement Cardiovascular: nl pulses, regular rate and rhythm Gastrointestinal: nl liver, spleen, non-tender, soft Results Result Diagram: 02/22/16 0415 02/22/16 0415 KAYLYN RADFORD MD Feb 22, 2016 13:21
--- NOTE | 2016-02-22 13:59 | PN ---
DATE: 02/22/2016 INFECTIOUS DISEASE PROGRESS NOTE SUBJECTIVE: No acute events overnight. The patient is intubated, on a Cardizem drip, in no distre ss. VITAL SIGNS: Temperature 98.6, pulse 51, respirations 20, blood pressure 137/64, saturation 98 on F IO2. WBC 22.5, H and H 10.9 and 33, platelets 215, bands 15, lymphs 8, monos 2. BUN 19, creatinine 2.07. MICROBIOLOGY: Blood culture grew coagulase-negative staph species, 1 out of 2 sets. DIAGNOSTICS: Chest x-ray revealed extensive right consolidation. INDWELLINGS: Right upper extremity PICC line, endotracheal tube, NG tube, Smalls catheter. ANTIMICROBIALS: 1. Zosyn. 2. Vancomycin. PHYSICAL EXAMINATION: GENERAL: This is well-developed, middle-aged, obese man, who is lying comfortably in bed. HEENT: Head atraumatic, normocephalic. Sclerae are anicteric. Buccal mucosa dry. NECK: Supple, trachea midline. CHEST: Chest rise is symmetrical. Breath sounds diminished to the bases. HEART: S1, S2. ABDOMEN: Distended, soft. Bowel tones hypoactive. EXTREMITIES: With bilateral edema, left upper extremity more edematous than right. ASSESSMENT: 1. Sepsis, with persistent leukocytosis. 2. Acute respiratory failure secondary to aspiration pneumonia. 3. Poorly controlled hypertension, with hypertensive urgency. Remains on a drip. 4. Type B aortic dissection. Cardiothoracic surgery follows. 5. Coagulase-negative staph bacteremia, likely a contaminated specimen. 6. Acute renal failure. 7. Anemia. 8. Left upper extremity cephalic vein thrombosis, without evidence of deep venous thrombosis. PLAN: The patient is covered with broad-spectrum antibiotics. We are going to send a sputum cultur e and repeat blood cultures. Continue management as per primary team and consultants. Dictated By: HUSAM SANFORD SOFTWARE DEVELOPMENT ANALYST for YESIKA LOPEZ/NTS Conf#: [id number] DID#: [id number]
--- NOTE | 2016-02-22 14:15 | CONS ---
DATE OF ADMISSION: 02/18/2016 DATE OF CONSULTATION: 02/21/2016 TYPE OF CONSULTATION: Infectious disease. REASON FOR CONSULTATION: Antibiotic management. HISTORY OF PRESENT ILLNESS: Hoang Zepeda is a 45-year-old male with a number of problems, who co mes in with abdominal pain and is being seen for antibiotic management. His past problems include: 1. Essential hypertension. The patient was admitted with abdominal pain that started abruptly 8 ho urs prior to admission on 02/18/2016, 8/10 in intensity. He did not have any fever or chills. He d id have shortness of breath, but no chest pain. A CT scan of the abdomen and pelvis and a CT angiog tanvir of the chest and thorax showed a type B descending dissection. The patient was started on antih ypertensives. On admission his white count was 14.1, H and H of 12.0 and 37.8, platelet count of 23 7,000. BUN and creatinine are 15/1.18. HOSPITAL COURSE: The patient was seen in consultation by Dr. Means, who recommended blood press ure management and stay in the intensive care unit. Currently the patient has a PICC line in place. We are continuing blood pressure management. His white count on the 7th was 23.3, H and H of 10.4 and 32.1, platelet count of 214,000. BUN and creatinine are 13/1.35. The patient was intubated, on IV hypertensives. He was hypoxemic. He developed worsening encephalopathy. Chest x-ray showed a dense right-sided infiltrate, consistent with aspiration or healthcare-associated pneumonia. He was felt to have hypertensive urgency, encephalopathy, and possible aspiration pneumonia, and therefore he was intubated by Dr. Mccabe. He was started initially on vancomycin and Zosyn. He is currentl y on meropenem. Microbiology: Blood cultures just show coagulase negative staph. MRSA screen is negative. Chest x-ray shows extensive new lung consolidation. Rotation somewhat limits evaluation. New small left mid lung opacity. Lines and tubes. He has an ET tube, a PICC line. As noted, worsening exte nsive right upper lobe and right lower lobe consolidation. 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 A small lesion in this region on CT, which is too small to accurat kelly characterize. PAST MEDICAL HISTORY: Operations as outlined. FAMILY HISTORY: Noncontributory. SOCIAL HISTORY: He does not smoke, drink or abuse drugs. FAMILY HISTORY: Father had a [place] in his 50s. His brother has hypertension. ALLERGIES: NONE TO PENICILLIN, SULFA OR FOODS. MEDICATIONS: Per chart. REVIEW OF SYSTEMS: Noncontributory. PHYSICAL EXAMINATION: GENERAL: The patient is currently intubated, has an ET tube, on mechanical ventilation. VITAL SIGNS: Stable. He is afebrile. SKIN: Without generalized rash. HEENT: Within normal limits. NECK: Supple. LYMPH NODES: None palpable. CHEST: Decreased breath sounds at the bases. HEART: Without murmur or gallop. ABDOMEN: Soft, nontender, without organosplenomegaly or masses. EXTREMITIES: He has a PICC line in place. RECTAL AND GENITAL EXAM: Deferred. NEUROLOGIC EVALUATION: The patient is sedated, so difficult to evaluate. PICC line is in the right arm. IMPRESSION AND PLAN: The patient comes in with an aortic abdominal aneurysm, shortness of breath an d hypertensive emergency, and now must have aspirated and has healthcare-associated pneumonia with s ignificant infiltrates. The patient is on vancomycin and imipenem, or meropenem. I concur with th is regimen. He had 1 positive blood culture for staph epi, which is probably not significant. We h ave switched him to meropenem. Blood cultures have been repeated. Respiratory cultures have been d one. I will dictate my findings to the hospitalist and to the aforementioned physicians. Dictated By: YESIKA HESS MD, JD/EFRAIN Conf#: [id number] DID#: [id number]
[2016-02-22] MEDS: ALTEPLASE (CATHFLO) 2 MG INJ CATHETER PRN ×2 (14:54→18:30)
--- NOTE | 2016-02-22 16:03 | PN ---
Date/Time of Note Date/Time of Note DATE: 02/22/16 TIME: 15:53 Assessment/Plan VTE Prophylaxis VTE Prophylaxis Intervention: heparin Lines/Catheters IV Catheter Type (from Nrs): Peripheral IV Urinary Cath still in place: Yes Reason Cath still needed: other (indicate) (monitor I &O) Assessment/Plan Chief Complaint/Hosp Course Assessment and plan 1. 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 Vascular surgeon is following. . Follow up with cardiology recs. Blood pressure in better control 2. Hypertensive urgency. Blood pressure in better control. Titrate down trips as tolerated 3. Iron deficiency anemia. We'll continue on iron supplement 4. Leukocytosis.. Patient noted with staph species in blood. ID consult following. cont on abx 5. Hypokalemia. We will monitor and replete as needed 6. Acute kidney injury. Likely secondary to hemodynamics. elevated work platform operator following. cont to monitor renal panel 7. Respiratory distress likely secondary to HCAP. Intubated now. cont abx and mechanical ventilation. Assess for ability for vent liberation. 8. Bacteremia with staph species. cont on abx per ID 9. Left cephalic vein thrombus. Is superficial vein. cont elevation and warm compress as needed. GERD prophylaxis: PPI DVT prophylaxis: SCDs/heparin Disposition and plan: Titrate down antihypertensive drips as tolerated. cont mechanical ventilation. Follow up pulm recs. continue icu monitoring Discussed plan of care with Dr. Raymundo Critical care time: 30 minutes Problems: Subjective 24 Hr Interval Summary Free Text/Dictation remains intubated and sedated. blood pressure controlled at this time Exam/Review of Systems Vital Signs Vitals Vital Signs Date Time Temp Pulse Resp B/P Pulse Ox O2 Delivery O2 Flow Rate FiO2 02/22/16 15:15 51 20 131/65 100 02/22/16 15:00 Mechanical Ventilator 02/22/16 13:30 80 02/22/16 12:00 98.9 02/21/16 16:30 15.0 Intake and Output 02/21/16 02/21/16 02/22/16 15:00 23:00 07:00 Intake Total 2128.2 ml 1679.80 ml 1091.54 ml Output Total 1225 ml 700 ml 670 ml Balance 903.2 ml 979.80 ml 421.54 ml Exam General: intubated and sedated Eyes: pupils equal round, Anicteric sclera Neck: Supple nontender, no JVD Cardiac: S1, S2 auscultated, regular rhythm and rate Pulmonary: rhonchi auscultated bilateral lung cabrales with more noted on right side GI: Abdomen soft nontender nondistended, bowel sounds active Extremities: No edema bilateral lower extremities Skin: Clean dry and intact Neurologic: Alert to person place and time and situation Results Result Diagram: 02/22/16 0415 02/22/16 0415 Results 24 hrs Laboratory Tests Test 02/21/16 17:15 02/21/16 20:00 02/22/16 04:15 02/22/16 07:00 Arterial Blood HCO3 19.0 L 20.9 L 21.2 L Arterial Blood Base Excess -6.9 L -5.3 L -5.2 L Arterial Blood Oxygen Saturation 87.9 L 85.4 L Jovanny Test ACCEPTAB ACCEPTAB ACCEPTAB Arterial Blood Gas Puncture Site Right Radial Right Radial Right Radial Arterial Blood Carboxyhemoglobin 0.3 0.3 Arterial Blood Date Drawn 02/21/2016 5:25:51 PM 02/21/2016 8:20:33 PM 02/22/2016 7:20:11 AM Arterial Blood Methemoglobin 0.2 0.1 Arterial Blood pCO2 (Temp correct) 39.3 43.4 44.3 Arterial Blood pH (Temp corrected) 7.302 L 7.300 L 7.298 *L Arterial Blood pO2 (Temp corrected) 58.2 L 54.2 *L 55.3 L Blood Gas A-a O2 Differential 615.5 H 615.4 H 468.6 H Blood Gas Actual Respiration Rate 20 21 21 Blood Gas Critical Value Read Back MEENA BENNETT RN, RN Blood Gas Low PEEP Setting 8.0 12.0 16.0 Blood Gas Modality VENT - AC VENT - AC VENT - AC Blood Gas Notified Time 02/21/2016 5:41:05 PM 02/21/2016 8:29:25 PM 02/22/2016 8:10:21 AM Blood Gas Notified Whom MITCH LAMB MA Blood Gas Respiration Rate 20.0 20.0 20.0 Blood Gas Specimen Source Blood arterial Blood arterial Blood arterial Blood Gas Temperature 37.0 37.0 37.0 Blood Gas Tidal Volume 550.0 550.0 550.0 FiO2 100.0 100.0 80.0 Oxyhemoglobin Percent 87.5 L 85.1 L Total Hemoglobin 12.2 12.2 Alanine Aminotransferase (ALT/SGPT) 19 Albumin 3.0 L Albumin/Globulin Ratio 0.90 Alkaline Phosphatase 88 Anion Gap 15 Aspartate Amino Transf (AST/SGOT) 24 # Band Neutrophils % 15.0 H Blood Morphology Comment Blood Urea Nitrogen 19 Calcium Level 7.9 L Carbon Dioxide Level 20 L Chloride Level 105 Creatinine 2.07 H Differential Comment MANUAL DIFF Direct Bilirubin 0.00 Eosinophils # 0.5 Eosinophils % 2.0 Globulin 3.30 H Glucose Level 118 Hematocrit 33.0 L Hemoglobin 10.9 L Indirect Bilirubin 0.9 Lymphocytes # 1.8 Lymphocytes % 8.0 L Mean Corpuscular Hemoglobin 26.3 L Mean Corpuscular Hemoglobin Concent 32.9 Mean Corpuscular Volume 80.0 L Mean Platelet Volume 10.0 Metamyelocytes # 0.2 Metamyelocytes % 1.0 H Monocytes # 0.5 Monocytes % 2.0 Myelocytes # 0.2 Myelocytes % 1.0 H Neutrophils # 16.0 H Neutrophils % 71.0 Platelet Count 215 Potassium Level 4.1 Red Blood Count 4.13 L Red Cell Distribution Width 18.8 H Sodium Level 136 Total Bilirubin 0.9 Total Protein 6.3 White Blood Count 22.5 H Test 02/22/16 11:07 Vancomycin Level Trough 19.4 Medications Medications Current Medications Sodium Chloride (NS) 1,000 ml @ 50 mls/hr Q20H IV Last administered on at 10:19; Admin Dose 50 MLS/HR; Start 02/18/16 at 09:13 Ondansetron HCl (Zofran Inj) 4 mg Q6H PRN IV NAUSEA AND/OR VOMITING; Start 02/18/16 at 09:30 Acetaminophen (Tylenol Supp) 650 mg Q4H PRN [place] PAIN LEVEL 1-3 OR FEVER; Start 02/18/16 at 09:30 Morphine Sulfate (morphine) 2 mg Q4H PRN IV PAIN LEVEL 7-10 Last administered on 02/21/16at 09:35; Admin Dose 2 MG; Start 02/18/16 at 09:30 Lorazepam (Ativan) 1 mg Q2H PRN IV ANXIETY Last administered on 02/21/16at 13:57 ; Admin Dose 1 MG; Start 02/18/16 at 09:30 Bisacodyl (Dulcolax Supp) 10 mg DAILY PRN [place] CONSTIPATION; Start 02/18/16 at 09 :30 Pantoprazole 40 mg 40 mg DAILY@06 IV Last administered on 02/22/16at 05:45; Admin Dose 40 MG; Start 02/19/16 at 06:00 Esmolol HCl/ Sodium Chloride 250 ml @ 28.8 mls/hr TITRATE IV Last administered on 02/22/16 13:22; Admin Dose 86.4 MLS/HR; Start 02/18/16 at 09:30 Diltiazem HCl (Cardizem-D5W 125 Mg/125 ml Drip) 125 ml @ 5 mls/hr TITRATE IV Last administered on 02/21/16 12:56; Admin Dose 15 MLS/HR; Start 02/19/16 at 14 :00 Amlodipine Besylate (Norvasc) 5 mg BID PO Last administered on 02/22/16 09:15 ; Admin Dose 5 MG; Start 02/20/16 at 21:00 Hydralazine HCl (Apresoline) 10 mg Q6H PRN IV ELEVATED SYSTOLIC BP Last administered on 02/21/16 07:49; Admin Dose 10 MG; Start 02/20/16 at 22:00 Minoxidil 5 mg 5 mg BID PO Last administered on 02/22/16 09:15; Admin Dose 5 MG; Start 02/20/16 at 22:00 Nicardipine HCl/ Dextrose (Cardene Iv/D5W) 250 ml @ 50 mls/hr TITRATE IV Last administered on 02/22/16 14:54; Admin Dose 150 MLS/HR; Start 02/21/16 at 12:30 Metoprolol Tartrate 5 mg 5 mg Q4H PRN IV HR>55 Hold SBP<100; Start 02/21/16 at 11:30 Propofol 100 ml @ 3.189 mls/ hr Q12H IV Last administered on 02/22/16 10:59; Admin Dose 12.756 MLS/HR; Start 02/21/16 at 16:30 Fentanyl/Dextrose (D5W) 100 ml @ 0 mls/hr TITRATE IV Last administered on 05:35; Admin Dose 10 MLS/HR; Start 02/21/16 at 16:30 IV Flush (NS 10 ml) 10 ml PRN PRN IV IV PROTOCOL; Start 02/21/16 at 18:30 Ferrous Sulfate 300 mg 300 mg BID GTB Last administered on 02/22/16at 10:53; Admin Dose 300 MG; Start 02/22/16 at 10:00 Meropenem/Sodium Chloride (Merrem/NS) 100 ml @ 200 mls/hr Q12 IVPB Last administered on 02/22/16at 13:06; Admin Dose 200 MLS/HR; Start 02/22/16 at 12:30 Metoprolol Tartrate 50 mg 50 mg Q8 PO Last administered on 02/22/16at 14:56; Admin Dose 50 MG; Start 02/22/16 at 14:00 Vancomycin HCl/ Sodium Chloride (Vancocin/NS) 150 ml @ 75 mls/hr Q12H IVPB ; Start 02/22/16 at 23:00 REJI WADE Feb 22, 2016 16:03
--- NOTE | 2016-02-22 16:28 | CONS ---
Date/Time of Note Date/Time of Note DATE: 02/22/16 TIME: 16:27 Assessment/Plan Assessment/Plan Additional Assessment/Plan 1. Acute kidney injury, likely secondary to acute tubular necrosis from contrast-induced nephropathy and also secondary to ischemic acute tubular necrosis from aortic dissection. 2. A type B Helio aortic dissection. 3. Hypertensive emergency on multiple drips. 4. acute resp failiure intubated on ventilator PLAN: Cr bumped to 2.0 but making good urine output will follow up Consultation Date/Type/Reason Admit Date/Time Feb 18, 2016 at 09:14 Type of Consultation: NEPHROLOGY Referring Provider: TIFFANIE HEARD MD 24 HR Interval Summary Free Text/Dictation pt intubated on ventilator, Cr bumped to 2.0 Exam/Review of Systems Vital Signs Vitals Vital Signs Date Time Temp Pulse Resp B/P Pulse Ox O2 Delivery O2 Flow Rate FiO2 02/22/16 16:00 51 02/22/16 15:15 20 131/65 100 02/22/16 15:00 Mechanical Ventilator 02/22/16 13:30 80 02/22/16 12:00 98.9 02/21/16 16:30 15.0 Intake and Output 02/21/16 02/21/16 02/22/16 15:00 23:00 07:00 Intake Total 2128.2 ml 1679.80 ml 1091.54 ml Output Total 1225 ml 700 ml 670 ml Balance 903.2 ml 979.80 ml 421.54 ml Exam GENERAL: Awake, but lethargic HEENT: Normal. Oropharynx clear. NECK: Supple. No JVD, no lymphadenopathy. LUNGS: Clear to auscultation. No crackles, no wheezes. HEART: S1, S2, with regular rhythm; no murmur. ABDOMEN: Soft, nontender, nondistended. Bowel sounds are present. EXTREMITIES: No clubbing, cyanosis, LUE edema 2+ NEUROLOGICAL: Nonfocal, intact. PSYCHIATRIC: Appropriate affect and mood. Results Result Diagram: 02/22/16 0415 02/22/16 0415 Results 24 hrs Laboratory Tests Test 02/21/16 17:15 02/21/16 20:00 02/22/16 04:15 02/22/16 07:00 Arterial Blood HCO3 19.0 L 20.9 L 21.2 L Arterial Blood Base Excess -6.9 L -5.3 L -5.2 L Arterial Blood Oxygen Saturation 87.9 L 85.4 L Jovanny Test ACCEPTAB ACCEPTAB ACCEPTAB Arterial Blood Gas Puncture Site Right Radial Right Radial Right Radial Arterial Blood Carboxyhemoglobin 0.3 0.3 Arterial Blood Date Drawn 02/21/2016 5:25:51 PM 02/21/2016 8:20:33 PM 02/22/2016 7:20:11 AM Arterial Blood Methemoglobin 0.2 0.1 Arterial Blood pCO2 (Temp correct) 39.3 43.4 44.3 Arterial Blood pH (Temp corrected) 7.302 L 7.300 L 7.298 *L Arterial Blood pO2 (Temp corrected) 58.2 L 54.2 *L 55.3 L Blood Gas A-a O2 Differential 615.5 H 615.4 H 468.6 H Blood Gas Actual Respiration Rate 20 21 21 Blood Gas Critical Value Read Back MEENA BENNETT RN, RN Blood Gas Low PEEP Setting 8.0 12.0 16.0 Blood Gas Modality VENT - AC VENT - AC VENT - AC Blood Gas Notified Time 02/21/2016 5:41:05 PM 02/21/2016 8:29:25 PM 02/22/2016 8:10:21 AM Blood Gas Notified Whom MITCH LAMB MA Blood Gas Respiration Rate 20.0 20.0 20.0 Blood Gas Specimen Source Blood arterial Blood arterial Blood arterial Blood Gas Temperature 37.0 37.0 37.0 Blood Gas Tidal Volume 550.0 550.0 550.0 FiO2 100.0 100.0 80.0 Oxyhemoglobin Percent 87.5 L 85.1 L Total Hemoglobin 12.2 12.2 Alanine Aminotransferase (ALT/SGPT) 19 Albumin 3.0 L Albumin/Globulin Ratio 0.90 Alkaline Phosphatase 88 Anion Gap 15 Aspartate Amino Transf (AST/SGOT) 24 # Band Neutrophils % 15.0 H Blood Morphology Comment Blood Urea Nitrogen 19 Calcium Level 7.9 L Carbon Dioxide Level 20 L Chloride Level 105 Creatinine 2.07 H Differential Comment MANUAL DIFF Direct Bilirubin 0.00 Eosinophils # 0.5 Eosinophils % 2.0 Globulin 3.30 H Glucose Level 118 Hematocrit 33.0 L Hemoglobin 10.9 L Indirect Bilirubin 0.9 Lymphocytes # 1.8 Lymphocytes % 8.0 L Mean Corpuscular Hemoglobin 26.3 L Mean Corpuscular Hemoglobin Concent 32.9 Mean Corpuscular Volume 80.0 L Mean Platelet Volume 10.0 Metamyelocytes # 0.2 Metamyelocytes % 1.0 H Monocytes # 0.5 Monocytes % 2.0 Myelocytes # 0.2 Myelocytes % 1.0 H Neutrophils # 16.0 H Neutrophils % 71.0 Platelet Count 215 Potassium Level 4.1 Red Blood Count 4.13 L Red Cell Distribution Width 18.8 H Sodium Level 136 Total Bilirubin 0.9 Total Protein 6.3 White Blood Count 22.5 H Test 02/22/16 11:07 Vancomycin Level Trough 19.4 Medications Medications Current Medications Sodium Chloride (NS) 1,000 ml @ 50 mls/hr Q20H IV Last administered on at 10:19; Admin Dose 50 MLS/HR; Start 02/18/16 at 09:13 Ondansetron HCl (Zofran Inj) 4 mg Q6H PRN IV NAUSEA AND/OR VOMITING; Start 02/18/16 at 09:30 Acetaminophen (Tylenol Supp) 650 mg Q4H PRN [place] PAIN LEVEL 1-3 OR FEVER; Start 02/18/16 at 09:30 Morphine Sulfate (morphine) 2 mg Q4H PRN IV PAIN LEVEL 7-10 Last administered on 02/21/16at 09:35; Admin Dose 2 MG; Start 02/18/16 at 09:30 Lorazepam (Ativan) 1 mg Q2H PRN IV ANXIETY Last administered on 02/21/16at 13:57 ; Admin Dose 1 MG; Start 02/18/16 at 09:30 Bisacodyl (Dulcolax Supp) 10 mg DAILY PRN [place] CONSTIPATION; Start 02/18/16 at 09 :30 Pantoprazole 40 mg 40 mg DAILY@06 IV Last administered on 02/22/16at 05:45; Admin Dose 40 MG; Start 02/19/16 at 06:00 Esmolol HCl/ Sodium Chloride 250 ml @ 28.8 mls/hr TITRATE IV Last administered on 02/22/16at 16:19; Admin Dose 57.6 MLS/HR; Start 02/18/16 at 09:30 Diltiazem HCl (Cardizem-D5W 125 Mg/125 ml Drip) 125 ml @ 5 mls/hr TITRATE IV Last administered on 02/21/16 12:56; Admin Dose 15 MLS/HR; Start 02/19/16 at 14 :00 Amlodipine Besylate (Norvasc) 5 mg BID PO Last administered on 02/22/16 09:15 ; Admin Dose 5 MG; Start 02/20/16 at 21:00 Hydralazine HCl (Apresoline) 10 mg Q6H PRN IV ELEVATED SYSTOLIC BP Last administered on 02/21/16 07:49; Admin Dose 10 MG; Start 02/20/16 at 22:00 Minoxidil 5 mg 5 mg BID PO Last administered on 02/22/16 09:15; Admin Dose 5 MG; Start 02/20/16 at 22:00 Nicardipine HCl/ Dextrose (Cardene Iv/D5W) 250 ml @ 50 mls/hr TITRATE IV Last administered on 02/22/16 14:54; Admin Dose 150 MLS/HR; Start 02/21/16 at 12:30 Metoprolol Tartrate 5 mg 5 mg Q4H PRN IV HR>55 Hold SBP<100; Start 02/21/16 at 11:30 Propofol 100 ml @ 3.189 mls/ hr Q12H IV Last administered on 02/22/16 10:59; Admin Dose 12.756 MLS/HR; Start 02/21/16 at 16:30 Fentanyl/Dextrose (D5W) 100 ml @ 0 mls/hr TITRATE IV Last administered on at 05:35; Admin Dose 10 MLS/HR; Start 02/21/16 at 16:30 IV Flush (NS 10 ml) 10 ml PRN PRN IV IV PROTOCOL; Start 02/21/16 at 18:30 Ferrous Sulfate 300 mg 300 mg BID GTB Last administered on 02/22/16 10:53; Admin Dose 300 MG; Start 02/22/16 at 10:00 Meropenem/Sodium Chloride (Merrem/NS) 100 ml @ 200 mls/hr Q12 IVPB Last administered on 02/22/16 13:06; Admin Dose 200 MLS/HR; Start 02/22/16 at 12:30 Metoprolol Tartrate 50 mg 50 mg Q8 PO Last administered on 02/22/16 14:56; Admin Dose 50 MG; Start 02/22/16 at 14:00 Vancomycin HCl/ Sodium Chloride (Vancocin/NS) 150 ml @ 75 mls/hr Q12H IVPB ; Start 02/22/16 at 23:00 Heparin Sodium (Porcine) (Heparin (5000 Units/0.5 ml)) 5,000 unit BID SC ; Start 02/22/16 at 21:00; Status UNV MOSES HARRIS MD Feb 22, 2016 16:28
[2016-02-22] MEDS ORDERED: SOD CHLORIDE 0.9% 100 ML ONE (17:00)
[2016-02-22] MEDS: HEPARIN 5,000 UNIT/0.5 ML SYG SC SCH (20:28)
[2016-02-22] MEDS: LORAZEPAM 2 MG INJ IV PRN (21:15)
[2016-02-22] MEDS: VANCOMYCIN 750 MG in SOD CHLORIDE 0.9% 150 ML IVPB SCH (22:58)
[2016-02-23] VITALS (77 sets, daily range): BP systolic 110–187; BP diastolic 56–92; PULSE 51–80; RESP 0–24
[2016-02-23] MEDS: PROPOFOL 100 ML IV SCH ×5 (00:56→19:55)
[2016-02-23] MEDS: ALBUTEROL HFA 8 GM INHALER INH SCH ×4 (02:46→22:06)
[2016-02-23] MEDS: IPRATROPIUM (HFA) 12.9 GM INHALER INH SCH ×4 (02:46→22:06)
[2016-02-23] MEDS: FENTAnyl 1,000 MCG in DEXTROSE 5% 80 ML IV SCH ×3 (03:10→23:56)
[2016-02-23 04:56] LABS: HEMATOCRIT 28.1 % (42.0-52.0); HEMOGLOBIN 9.1 g/dl (14.0-18.0); MEAN CORPUSCULAR HEMOGLOBIN 26.1 pg (29.0-33.0); MEAN CORPUSCULAR HGB CONC 32.4 g/dl (32.0-37.0); MEAN CORPUSCULAR VOLUME 80.6 fl (82.0-101.0); PLATELET COUNT 184 10^3/UL (140-440); RED BLOOD COUNT 3.49 10^6/ul (4.70-6.10); RED CELL DISTRIBUTION WIDTH 17.7 % (11.5-14.5); UNCORRECTED WBC 18.2 10^3/ul (4.8-10.8); WHITE BLOOD COUNT 18.2 10^3/ul (4.8-10.8)
[2016-02-23 05:02] LABS: CONDITION 1; LH ANALYZER COMMENTS 1; SUSPECT 1
[2016-02-23 05:11] LABS: ALBUMIN 2.4 g/dl (3.3-4.9)
[2016-02-23 05:12] LABS: POTASSIUM 3.6 mmol/L (3.5-5.1)
[2016-02-23 05:14] LABS: BILIRUBIN,DIRECT 0.1 mg/dl (0.00-0.20); BILIRUBIN,INDIRECT 0.6 mg/dl (0-1.1); CREATININE 2.05 mg/dl (0.61-1.24)
[2016-02-23 05:15] LABS: ALBUMIN/GLOBULIN RATIO 0.8; BILIRUBIN,TOTAL 0.7 mg/dl (0.2-1.3); CALCIUM 7.7 mg/dl (8.4-10.2); TOTAL PROTEIN 5.4 g/dl (6.1-8.1)
[2016-02-23] MEDS: PANTOPRAZOLE 40 MG INJ IV SCH (05:43)
[2016-02-23] MEDS: METOPROLOL 50 MG TAB PO SCH ×3 (05:45→22:58)
[2016-02-23 07:57] LABS: AADO2 Arterial 307.1 mmHg (7.0-24.0); Allen Test ACCEPTAB; Arterial Base Excess -2.9 mmol/L (-3.0-3); Arterial COHb 0.3 % (0.0-3.0); Arterial HCO3 22.7 mmol/L (22.0-26.0); Arterial MetHb 0.1 % (0.0-1.5); Arterial Total Hemglobin 10.6 g/dl (12.0-18.0); MODE VENT - AC
--- NOTE | 2016-02-23 09:16 | RADRPT ---
PROCEDURE: XR Chest. CLINICAL INDICATION: Shortness of breath. TECHNIQUE: Single frontal view. COMPARISON: 02/22/2016. FINDINGS: The tracheostomy tube and right arm PICC line remain in satisfactory position. There is a new nasog astric tube with the tip in the stomach. Dense consolidation throughout the right lung is unchanged . The left lung is clear. The heart is enlarged. There is no pleural effusion. There is no pneumothorax. IMPRESSION: 1. New nasogastric tube with the tip in the stomach. 2. No other change from 02/22/2016. RPTAT: QQ .Bk Lujan MD, Date Time Electronically viewed and signed by .Bk Lujan MD, on 02/23/2016 09:15 .R/
[2016-02-23] MEDS: AMLODIPINE 5 MG TAB PO SCH ×2 (09:35→20:13)
[2016-02-23] MEDS: MEROPENEM 500 MG in SOD CHLORIDE 0.9% 100 ML IVPB SCH (09:35)
[2016-02-23] MEDS: FERROUS SULFATE 60 MG/ML 5ML CUP GTB SCH ×2 (09:35→20:14)
[2016-02-23] MEDS: SOD CHLORIDE 0.9% 1,000 ML IV SCH (09:36)
[2016-02-23] MEDS: MINOXIDIL 2.5 MG TAB PO SCH ×2 (09:36→20:14)
[2016-02-23] MEDS: HEPARIN 5,000 UNIT/0.5 ML SYG SC SCH ×2 (09:39→20:20)
[2016-02-23] MEDS: LORAZEPAM 2 MG INJ IV PRN ×3 (09:44→20:13)
--- NOTE | 2016-02-23 10:05 | CONS ---
Date/Time of Note Date/Time of Note DATE: 02/23/16 TIME: 10:02 Assessment/Plan Assessment/Plan Additional Assessment/Plan 1. Acute kidney injury, likely secondary to acute tubular necrosis from contrast-induced nephropathy and also secondary to ischemic acute tubular necrosis from aortic dissection. 2. A type B Helio aortic dissection. 3. Hypertensive emergency on multiple drips. 4. acute resp failiure intubated on ventilator PLAN: Cr bumped to 2.0 but making good urine output will follow up give albumin + lasix Consultation Date/Type/Reason Admit Date/Time Feb 18, 2016 at 09:14 Type of Consultation: NEPHROLOGY Referring Provider: TIFFANIE HEARD MD 24 HR Interval Summary Free Text/Dictation pt remains intubated, urine output ok Exam/Review of Systems Vital Signs Vitals Vital Signs Date Time Temp Pulse Resp B/P Pulse Ox O2 Delivery O2 Flow Rate FiO2 02/23/16 06:45 61 20 139/64 93 02/23/16 06:00 Mechanical Ventilator 02/23/16 05:50 60 02/23/16 04:00 98.9 02/21/16 16:30 15.0 Intake and Output 02/22/16 02/22/16 02/23/16 15:00 23:00 07:00 Intake Total 1994.76 ml 1362.33 ml 1170.71 ml Output Total 485 ml 215 ml 210 ml Balance 1509.76 ml 1147.33 ml 960.71 ml Exam GENERAL: intubated, sedated on ventilator LUNGS: Bilateral coarse BS+ HEART: S1, S2, tachycardia ABDOMEN: Soft, nontender, nondistended. Bowel sounds are present. EXTREMITIES: No clubbing, cyanosis, LUE edema 2+ NEUROLOGICAL: uncooperative for exam due to sedation Results Result Diagram: 02/23/16 0415 02/23/16 0415 Results 24 hrs Laboratory Tests Test 02/22/16 11:07 02/23/16 04:15 02/23/16 07:00 Vancomycin Level Trough 19.4 Alanine Aminotransferase (ALT/SGPT) 23 Albumin 2.4 L Albumin/Globulin Ratio 0.80 Alkaline Phosphatase 68 Anion Gap 11 Aspartate Amino Transf (AST/SGOT) 19 Basophils # Pending Basophils % Pending Blood Morphology Comment Blood Urea Nitrogen 22 H Calcium Level 7.7 L Carbon Dioxide Level 22 Chloride Level 102 Creatinine 2.05 H Direct Bilirubin 0.10 Eosinophils # Pending Eosinophils % Pending Globulin 3.00 Glucose Level 277 #H Hematocrit 28.1 L Hemoglobin 9.1 L Indirect Bilirubin 0.6 Lymphocytes # Pending Lymphocytes % Pending Mean Corpuscular Hemoglobin 26.1 L Mean Corpuscular Hemoglobin Concent 32.4 Mean Corpuscular Volume 80.6 L Mean Platelet Volume 9.0 Monocytes # Pending Monocytes % Pending Neutrophils # Pending Neutrophils % Pending Nucleated Red Blood Cells # Pending Nucleated Red Blood Cells % Pending Platelet Count 184 Potassium Level 3.6 Red Blood Count 3.49 L Red Cell Distribution Width 17.7 H Sodium Level 131 L Total Bilirubin 0.7 Total Protein 5.4 L White Blood Count 18.2 H Arterial Blood HCO3 22.7 Arterial Blood Base Excess -2.9 Arterial Blood Oxygen Saturation 94.4 L Jovanny Test ACCEPTAB Arterial Blood Gas Puncture Site Right Radial Arterial Blood Carboxyhemoglobin 0.3 Arterial Blood Date Drawn 02/23/2016 7:30:50 AM Arterial Blood Methemoglobin 0.1 Arterial Blood pCO2 (Temp correct) 43.0 Arterial Blood pH (Temp corrected) 7.341 L Arterial Blood pO2 (Temp corrected) 73.4 L Blood Gas A-a O2 Differential 307.1 H Blood Gas Actual Respiration Rate 20 Blood Gas Low PEEP Setting 16.0 Blood Gas Modality VENT - AC Blood Gas Notified Time 02/23/2016 7:57:40 AM Blood Gas Notified Whom JLD Blood Gas Respiration Rate 20.0 Blood Gas Specimen Source Blood arterial Blood Gas Temperature 37.0 Blood Gas Tidal Volume 550.0 FiO2 60.0 Oxyhemoglobin Percent 94.0 Total Hemoglobin 10.6 L Medications Medications Current Medications Sodium Chloride (NS) 1,000 ml @ 50 mls/hr Q20H IV Last administered on at 09:36; Admin Dose 50 MLS/HR; Start 02/18/16 at 09:13 Ondansetron HCl (Zofran Inj) 4 mg Q6H PRN IV NAUSEA AND/OR VOMITING; Start 02/18/16 at 09:30 Acetaminophen (Tylenol Supp) 650 mg Q4H PRN [place] PAIN LEVEL 1-3 OR FEVER; Start 02/18/16 at 09:30 Morphine Sulfate (morphine) 2 mg Q4H PRN IV PAIN LEVEL 7-10 Last administered on 02/21/16 09:35; Admin Dose 2 MG; Start 02/18/16 at 09:30 Lorazepam (Ativan) 1 mg Q2H PRN IV ANXIETY Last administered on 02/23/16 09:44 ; Admin Dose 1 MG; Start 02/18/16 at 09:30 Bisacodyl (Dulcolax Supp) 10 mg DAILY PRN [place] CONSTIPATION; Start 02/18/16 at 09 :30 Pantoprazole 40 mg 40 mg DAILY@06 IV Last administered on 02/23/16 05:43; Admin Dose 40 MG; Start 02/19/16 at 06:00 Esmolol HCl/ Sodium Chloride 250 ml @ 28.8 mls/hr TITRATE IV Last administered on 02/22/16 16:19; Admin Dose 57.6 MLS/HR; Start 02/18/16 at 09:30 Diltiazem HCl (Cardizem-D5W 125 Mg/125 ml Drip) 125 ml @ 5 mls/hr TITRATE IV Last administered on 02/21/16 12:56; Admin Dose 15 MLS/HR; Start 02/19/16 at 14 :00 Amlodipine Besylate (Norvasc) 5 mg BID PO Last administered on 02/23/16 09:35 ; Admin Dose 5 MG; Start 02/20/16 at 21:00 Hydralazine HCl (Apresoline) 10 mg Q6H PRN IV ELEVATED SYSTOLIC BP Last administered on 02/21/16 07:49; Admin Dose 10 MG; Start 02/20/16 at 22:00 Minoxidil 5 mg 5 mg BID PO Last administered on 02/23/16 09:36; Admin Dose 5 MG; Start 02/20/16 at 22:00 Nicardipine HCl/ Dextrose (Cardene Iv/D5W) 250 ml @ 50 mls/hr TITRATE IV Last administered on 02/23/16 05:42; Admin Dose 100 MLS/HR; Start 02/21/16 at 12:30 Metoprolol Tartrate 5 mg 5 mg Q4H PRN IV HR>55 Hold SBP<100; Start 02/21/16 at 11:30 Propofol 100 ml @ 3.189 mls/ hr Q12H IV Last administered on 02/23/16 06:33; Admin Dose 15.939 MLS/HR; Start 02/21/16 at 16:30 Fentanyl/Dextrose (D5W) 100 ml @ 0 mls/hr TITRATE IV Last administered on 03:10; Admin Dose 10 MLS/HR; Start 02/21/16 at 16:30 IV Flush (NS 10 ml) 10 ml PRN PRN IV IV PROTOCOL; Start 02/21/16 at 18:30 Ferrous Sulfate 300 mg 300 mg BID GTB Last administered on 02/23/16 09:35; Admin Dose 300 MG; Start 02/22/16 at 10:00 Meropenem/Sodium Chloride (Merrem/NS) 100 ml @ 200 mls/hr Q12 IVPB Last administered on 02/23/16 09:35; Admin Dose 200 MLS/HR; Start 02/22/16 at 12:30 Metoprolol Tartrate 50 mg 50 mg Q8 PO Last administered on 02/22/16 21:20; Admin Dose 50 MG; Start 02/22/16 at 14:00 Vancomycin HCl/ Sodium Chloride (Vancocin/NS) 150 ml @ 75 mls/hr Q12H IVPB Last administered on 02/22/16 22:58; Admin Dose 75 MLS/HR; Start 02/22/16 at 23 :00 Heparin Sodium (Porcine) (Heparin (5000 Units/0.5 ml)) 5,000 unit BID SC Last administered on 02/23/16 09:39; Admin Dose 5,000 UNIT; Start 02/22/16 at 21:00 MOSES HARRIS MD Feb 23, 2016 10:05
[2016-02-23] MEDS ORDERED: ALBUMIN HUMAN 25% 100 ML IV ONE (10:30)
[2016-02-23 10:40] LABS: EOSINOPHILS # 0.4 10^3/ul (0.0-0.5); LYMPHOCYTES # 0.9 10^3/ul (0.8-2.9); MONOCYTE # 1.1 10^3/ul (0.3-0.9); MYELOCYTES # 0.2; NEUTROPHIL # 13.8 10^3/ul (1.6-7.5)
[2016-02-23] MEDS ORDERED: FUROSEMIDE 40 MG INJ IV ONE (11:30)
--- NOTE | 2016-02-23 11:45 | CONS ---
Date/Time of Note Date/Time of Note DATE: 02/23/16 TIME: 11:40 Assessment/Plan Assessment/Plan Chief Complaint/Hosp Course Imp: 1.HTN emergency-NL EF by echo this admit-under reasonable control on combination of IV drips and PO meds 2.Aortic dissection-type B 3.abnl ecg-lateral TWI-negative troponin x 3 since admit 4.anxiety 5.ARF 6. Pericardial effusion by echo-small with NL EF Recc: -Tele in ICU -Now off esmolol/still on nicardipine -Follow volume status closely -serial ecg's -Continue PO BB/CCB/minoxindil and will add hydralazine -Slow uptitration of PO anti-hypertensives with transition off of IV drips -ongoing surgical follow-up Problems: Consultation Date/Type/Reason Admit Date/Time Feb 18, 2016 at 09:14 Initial Consult Date 02/19/2016 Type of Consultation: Cardiology Reason for Consultation dissection/htn Referring Provider: TIFFANIE HEARD MD Exam/Review of Systems Vital Signs Vitals Vital Signs Date Time Temp Pulse Resp B/P Pulse Ox O2 Delivery O2 Flow Rate FiO2 02/23/16 08:00 64 02/23/16 06:45 20 139/64 93 02/23/16 06:00 Mechanical Ventilator 02/23/16 05:50 60 02/23/16 04:00 98.9 02/21/16 16:30 15.0 Intake and Output 02/22/16 02/22/16 02/23/16 14:59 22:59 06:59 Intake Total 1700.79 ml 1526.50 ml 1300.51 ml Output Total 445 ml 215 ml 200 ml Balance 1255.79 ml 1311.50 ml 1100.51 ml Exam Review of Systems: CONSTITUTIONAL: No fevers, chills. PULMONARY: intubated CARDIOVASCULAR: No obvious chest pain/palpitations GASTROINTESTINAL: No nausea/vomiting. GENITOURINARY: No hematuria/dysuria. MUSCULOSKELETAL: No obvious myagias/arthalgias. PSYCHIATRIC: The patient denies depression. NEUROLOGIC: No weakness Constitutional: other (sedated, upper airway rhonchi) Psych: no complaints Head: normocephalic ENMT: mucosa pink and moist Neck: jvd (9 cm water), supple Respiratory: diminished breath sounds Cardiovascular: regular rate and rhythm Gastrointestinal: soft Musculoskeletal: muscle tone Extremities: normal pulses Neurological: other (sedated) Results Result Diagram: 02/23/16 0415 02/23/16 0415 Results 24 hrs Laboratory Tests Test 02/23/16 04:15 02/23/16 07:00 Alanine Aminotransferase (ALT/SGPT) 23 Albumin 2.4 L Albumin/Globulin Ratio 0.80 Alkaline Phosphatase 68 Anion Gap 11 Aspartate Amino Transf (AST/SGOT) 19 Band Neutrophils % 8.0 H Basophils # Basophils % Blood Morphology Comment Blood Urea Nitrogen 22 H Calcium Level 7.7 L Carbon Dioxide Level 22 Chloride Level 102 Creatinine 2.05 H Differential Comment MANUAL DIFF Direct Bilirubin 0.10 Eosinophils # 0.4 Eosinophils % 2.0 Globulin 3.00 Glucose Level 277 #H Hematocrit 28.1 L Hemoglobin 9.1 L Indirect Bilirubin 0.6 Lymphocytes # 0.9 Lymphocytes % 5.0 L Mean Corpuscular Hemoglobin 26.1 L Mean Corpuscular Hemoglobin Concent 32.4 Mean Corpuscular Volume 80.6 L Mean Platelet Volume 9.0 Metamyelocytes # 0.4 Metamyelocytes % 2.0 H Monocytes # 1.1 H Monocytes % 6.0 Myelocytes # 0.2 Myelocytes % 1.0 H Neutrophils # 13.8 H Neutrophils % 76.0 Nucleated Red Blood Cells # Nucleated Red Blood Cells % Platelet Count 184 Potassium Level 3.6 Red Blood Count 3.49 L Red Cell Distribution Width 17.7 H Sodium Level 131 L Total Bilirubin 0.7 Total Protein 5.4 L White Blood Count 18.2 H Arterial Blood HCO3 22.7 Arterial Blood Base Excess -2.9 Arterial Blood Oxygen Saturation 94.4 L Jovanny Test ACCEPTAB Arterial Blood Gas Puncture Site Right Radial Arterial Blood Carboxyhemoglobin 0.3 Arterial Blood Date Drawn 02/23/2016 7:30:50 AM Arterial Blood Methemoglobin 0.1 Arterial Blood pCO2 (Temp correct) 43.0 Arterial Blood pH (Temp corrected) 7.341 L Arterial Blood pO2 (Temp corrected) 73.4 L Blood Gas A-a O2 Differential 307.1 H Blood Gas Actual Respiration Rate 20 Blood Gas Low PEEP Setting 16.0 Blood Gas Modality VENT - AC Blood Gas Notified Time 02/23/2016 7:57:40 AM Blood Gas Notified Whom JLD Blood Gas Respiration Rate 20.0 Blood Gas Specimen Source Blood arterial Blood Gas Temperature 37.0 Blood Gas Tidal Volume 550.0 FiO2 60.0 Oxyhemoglobin Percent 94.0 Total Hemoglobin 10.6 L Medications Medications Current Medications Sodium Chloride (NS) 1,000 ml @ 50 mls/hr Q20H IV Last administered on 09:36; Admin Dose 50 MLS/HR; Start 02/18/16 at 09:13 Ondansetron HCl (Zofran Inj) 4 mg Q6H PRN IV NAUSEA AND/OR VOMITING; Start 02/18/16 at 09:30 Acetaminophen (Tylenol Supp) 650 mg Q4H PRN [place] PAIN LEVEL 1-3 OR FEVER; Start 02/18/16 at 09:30 Morphine Sulfate (morphine) 2 mg Q4H PRN IV PAIN LEVEL 7-10 Last administered on 02/21/16 09:35; Admin Dose 2 MG; Start 02/18/16 at 09:30 Bisacodyl (Dulcolax Supp) 10 mg DAILY PRN [place] CONSTIPATION; Start 02/18/16 at 09 :30 Pantoprazole 40 mg 40 mg DAILY@06 IV Last administered on 02/23/16 05:43; Admin Dose 40 MG; Start 02/19/16 at 06:00 Esmolol HCl/ Sodium Chloride 250 ml @ 28.8 mls/hr TITRATE IV Last administered on 02/22/16 16:19; Admin Dose 57.6 MLS/HR; Start 02/18/16 at 09:30 Diltiazem HCl (Cardizem-D5W 125 Mg/125 ml Drip) 125 ml @ 5 mls/hr TITRATE IV Last administered on 02/21/16 12:56; Admin Dose 15 MLS/HR; Start 02/19/16 at 14 :00 Amlodipine Besylate (Norvasc) 5 mg BID PO Last administered on 02/23/16 09:35 ; Admin Dose 5 MG; Start 02/20/16 at 21:00 Hydralazine HCl (Apresoline) 10 mg Q6H PRN IV ELEVATED SYSTOLIC BP Last administered on 02/21/16 07:49; Admin Dose 10 MG; Start 02/20/16 at 22:00 Minoxidil 5 mg 5 mg BID PO Last administered on 02/23/16 09:36; Admin Dose 5 MG; Start 02/20/16 at 22:00 Nicardipine HCl/ Dextrose (Cardene Iv/D5W) 250 ml @ 50 mls/hr TITRATE IV Last administered on 02/23/16 05:42; Admin Dose 100 MLS/HR; Start 02/21/16 at 12:30 Metoprolol Tartrate 5 mg 5 mg Q4H PRN IV HR>55 Hold SBP<100; Start 02/21/16 at 11:30 Propofol 100 ml @ 3.189 mls/ hr Q12H IV Last administered on 02/23/16 11:14; Admin Dose 15.945 MLS/HR; Start 02/21/16 at 16:30 Fentanyl/Dextrose (D5W) 100 ml @ 0 mls/hr TITRATE IV Last administered on 03:10; Admin Dose 10 MLS/HR; Start 02/21/16 at 16:30 IV Flush (NS 10 ml) 10 ml PRN PRN IV IV PROTOCOL; Start 02/21/16 at 18:30 Ferrous Sulfate 300 mg 300 mg BID GTB Last administered on 02/23/16 09:35; Admin Dose 300 MG; Start 02/22/16 at 10:00 Meropenem/Sodium Chloride (Merrem/NS) 100 ml @ 200 mls/hr Q12 IVPB Last administered on 02/23/16 09:35; Admin Dose 200 MLS/HR; Start 02/22/16 at 12:30 Metoprolol Tartrate 50 mg 50 mg Q8 PO Last administered on 02/22/16 21:20; Admin Dose 50 MG; Start 02/22/16 at 14:00 Vancomycin HCl/ Sodium Chloride (Vancocin/NS) 150 ml @ 75 mls/hr Q12H IVPB Last administered on 02/22/16 22:58; Admin Dose 75 MLS/HR; Start 02/22/16 at 23 :00 Heparin Sodium (Porcine) (Heparin (5000 Units/0.5 ml)) 5,000 unit BID SC Last administered on 02/23/16 09:39; Admin Dose 5,000 UNIT; Start 02/22/16 at 21:00 Lorazepam (Ativan) 1 mg Q1H PRN IV ANXIETY; Start 02/23/16 at 11:30 JUNAID PAZ Feb 23, 2016 11:45
[2016-02-23] MEDS: VANCOMYCIN 750 MG in SOD CHLORIDE 0.9% 150 ML IVPB SCH ×2 (11:50→22:58)
[2016-02-23] MEDS: FLUCONAZOLE 100 MG/NS (PMX) 50 ML IVPB SCH (14:07)
--- NOTE | 2016-02-23 14:16 | PN ---
Date/Time of Note Date/Time of Note DATE: 02/23/16 TIME: 14:11 Assessment/Plan VTE Prophylaxis VTE Prophylaxis Intervention: heparin Lines/Catheters IV Catheter Type (from Nrs): PICC Line Central line still needed: Yes Urinary Cath still in place: Yes Reason Cath still needed: other (indicate) (monitor I&O) Assessment/Plan Chief Complaint/Hosp Course Assessment and plan 1. 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 Vascular surgeon is following. . Follow up with cardiology recs. Blood pressure in better control 2. Hypertensive urgency. Blood pressure in better control. Titrate down cardene drip as tolerated 3. Iron deficiency anemia. We'll continue on iron supplement 4. Leukocytosis.. Patient noted with staph species in blood. ID consult following. cont on abx 5. Hypokalemia. We will monitor and replete as needed 6. Acute kidney injury. Likely secondary to hemodynamics. atomic fuel assembler following. cont to monitor renal panel 7. Respiratory distress likely secondary to HCAP. Intubated now. cont abx and mechanical ventilation. Assess for ability for vent liberation. 8. Bacteremia with staph species. cont on abx per ID 9. Left cephalic vein thrombus. Is superficial vein. cont elevation and warm compress as needed. GERD prophylaxis: PPI DVT prophylaxis: SCDs/heparin Disposition and plan: Titrate down antihypertensive drips as tolerated. Patient transitioned to oral antihypertensives. cont mechanical ventilation. Follow up pulm recs. monitor for clinical improvement of pulm status. Discussed plan of care with Dr. Raymundo Critical care time: 30 minutes Problems: Subjective 24 Hr Interval Summary Free Text/Dictation intubated at this time. no s/s of distress. only seen on cardene drip for blood pressure control at this time Exam/Review of Systems Vital Signs Vitals Vital Signs Date Time Temp Pulse Resp B/P Pulse Ox O2 Delivery O2 Flow Rate FiO2 02/23/16 12:00 72 02/23/16 11:30 24 100 60 02/23/16 06:45 139/64 02/23/16 06:00 Mechanical Ventilator 02/23/16 04:00 98.9 02/21/16 16:30 15.0 Intake and Output 02/22/16 02/22/16 02/23/16 15:00 23:00 07:00 Intake Total 1994.76 ml 1362.33 ml 1170.71 ml Output Total 485 ml 215 ml 210 ml Balance 1509.76 ml 1147.33 ml 960.71 ml Exam General: intubated and sedated Eyes: pupils equal round, Anicteric sclera Neck: Supple nontender, no JVD Cardiac: S1, S2 auscultated, regular rhythm and rate Pulmonary: coarse lung sounds auscultated bilateral lung cabrales. GI: Abdomen soft nontender nondistended, bowel sounds active Extremities: No edema bilateral lower extremities Skin: Clean dry and intact Neurologic: Alert to person place and time and situation Results Result Diagram: 02/23/16 0415 02/23/16 0415 Results 24 hrs Laboratory Tests Test 02/23/16 04:15 02/23/16 07:00 Alanine Aminotransferase (ALT/SGPT) 23 Albumin 2.4 L Albumin/Globulin Ratio 0.80 Alkaline Phosphatase 68 Anion Gap 11 Aspartate Amino Transf (AST/SGOT) 19 Band Neutrophils % 8.0 H Basophils # Basophils % Blood Morphology Comment Blood Urea Nitrogen 22 H Calcium Level 7.7 L Carbon Dioxide Level 22 Chloride Level 102 Creatinine 2.05 H Differential Comment MANUAL DIFF Direct Bilirubin 0.10 Eosinophils # 0.4 Eosinophils % 2.0 Globulin 3.00 Glucose Level 277 #H Hematocrit 28.1 L Hemoglobin 9.1 L Indirect Bilirubin 0.6 Lymphocytes # 0.9 Lymphocytes % 5.0 L Mean Corpuscular Hemoglobin 26.1 L Mean Corpuscular Hemoglobin Concent 32.4 Mean Corpuscular Volume 80.6 L Mean Platelet Volume 9.0 Metamyelocytes # 0.4 Metamyelocytes % 2.0 H Monocytes # 1.1 H Monocytes % 6.0 Myelocytes # 0.2 Myelocytes % 1.0 H Neutrophils # 13.8 H Neutrophils % 76.0 Nucleated Red Blood Cells # Nucleated Red Blood Cells % Platelet Count 184 Potassium Level 3.6 Red Blood Count 3.49 L Red Cell Distribution Width 17.7 H Sodium Level 131 L Total Bilirubin 0.7 Total Protein 5.4 L White Blood Count 18.2 H Arterial Blood HCO3 22.7 Arterial Blood Base Excess -2.9 Arterial Blood Oxygen Saturation 94.4 L Jovanny Test ACCEPTAB Arterial Blood Gas Puncture Site Right Radial Arterial Blood Carboxyhemoglobin 0.3 Arterial Blood Date Drawn 02/23/2016 7:30:50 AM Arterial Blood Methemoglobin 0.1 Arterial Blood pCO2 (Temp correct) 43.0 Arterial Blood pH (Temp corrected) 7.341 L Arterial Blood pO2 (Temp corrected) 73.4 L Blood Gas A-a O2 Differential 307.1 H Blood Gas Actual Respiration Rate 20 Blood Gas Low PEEP Setting 16.0 Blood Gas Modality VENT - AC Blood Gas Notified Time 02/23/2016 7:57:40 AM Blood Gas Notified Whom JLD Blood Gas Respiration Rate 20.0 Blood Gas Specimen Source Blood arterial Blood Gas Temperature 37.0 Blood Gas Tidal Volume 550.0 FiO2 60.0 Oxyhemoglobin Percent 94.0 Total Hemoglobin 10.6 L Medications Medications Current Medications Sodium Chloride (NS) 1,000 ml @ 50 mls/hr Q20H IV Last administered on at 09:36; Admin Dose 50 MLS/HR; Start 02/18/16 at 09:13 Ondansetron HCl (Zofran Inj) 4 mg Q6H PRN IV NAUSEA AND/OR VOMITING; Start 02/18/16 at 09:30 Acetaminophen (Tylenol Supp) 650 mg Q4H PRN [place] PAIN LEVEL 1-3 OR FEVER; Start 02/18/16 at 09:30 Morphine Sulfate (morphine) 2 mg Q4H PRN IV PAIN LEVEL 7-10 Last administered on 02/21/16at 09:35; Admin Dose 2 MG; Start 02/18/16 at 09:30 Bisacodyl (Dulcolax Supp) 10 mg DAILY PRN [place] CONSTIPATION; Start 02/18/16 at 09 :30 Pantoprazole 40 mg 40 mg DAILY@06 IV Last administered on 02/23/16at 05:43; Admin Dose 40 MG; Start 02/19/16 at 06:00 Esmolol HCl/ Sodium Chloride 250 ml @ 28.8 mls/hr TITRATE IV Last administered on 02/22/16 16:19; Admin Dose 57.6 MLS/HR; Start 02/18/16 at 09:30 Diltiazem HCl (Cardizem-D5W 125 Mg/125 ml Drip) 125 ml @ 5 mls/hr TITRATE IV Last administered on 02/21/16at 12:56; Admin Dose 15 MLS/HR; Start 02/19/16 at 14 :00 Amlodipine Besylate (Norvasc) 5 mg BID PO Last administered on 02/23/16at 09:35 ; Admin Dose 5 MG; Start 02/20/16 at 21:00 Hydralazine HCl (Apresoline) 10 mg Q6H PRN IV ELEVATED SYSTOLIC BP Last administered on 02/21/16 07:49; Admin Dose 10 MG; Start 02/20/16 at 22:00 Minoxidil 5 mg 5 mg BID PO Last administered on 02/23/16 09:36; Admin Dose 5 MG; Start 02/20/16 at 22:00 Nicardipine HCl/ Dextrose (Cardene Iv/D5W) 250 ml @ 50 mls/hr TITRATE IV Last administered on 02/23/16 14:06; Admin Dose 100 MLS/HR; Start 02/21/16 at 12:30 Metoprolol Tartrate 5 mg 5 mg Q4H PRN IV HR>55 Hold SBP<100; Start 02/21/16 at 11:30 Propofol 100 ml @ 3.189 mls/ hr Q12H IV Last administered on 02/23/16 11:14; Admin Dose 15.945 MLS/HR; Start 02/21/16 at 16:30 Fentanyl/Dextrose (D5W) 100 ml @ 0 mls/hr TITRATE IV Last administered on 03:10; Admin Dose 10 MLS/HR; Start 02/21/16 at 16:30 IV Flush (NS 10 ml) 10 ml PRN PRN IV IV PROTOCOL; Start 02/21/16 at 18:30 Ferrous Sulfate (Feosol Liquid Cup) 300 mg BID GTB Last administered on 09:35; Admin Dose 300 MG; Start 02/22/16 at 10:00 Metoprolol Tartrate 50 mg 50 mg Q8 PO Last administered on 02/23/16 14:10; Admin Dose 50 MG; Start 02/22/16 at 14:00 Vancomycin HCl/ Sodium Chloride (Vancocin/NS) 150 ml @ 75 mls/hr Q12H IVPB Last administered on 02/23/16 11:50; Admin Dose 75 MLS/HR; Start 02/22/16 at 23 :00 Heparin Sodium (Porcine) (Heparin (5000 Units/0.5 ml)) 5,000 unit BID SC Last administered on 02/23/16 09:39; Admin Dose 5,000 UNIT; Start 02/22/16 at 21:00 Lorazepam (Ativan) 1 mg Q1H PRN IV ANXIETY; Start 02/23/16 at 11:30 Hydralazine HCl (Apresoline) 25 mg Q8 PO Last administered on 02/23/16at 14:07; Admin Dose 25 MG; Start 02/23/16 at 14:00 Miscellaneous Information 1 ONCE ONCE XX ; Start 02/24/16 at 10:00; Stop 12/30 at 10:01 Piperacillin Sod/ Tazobactam Sod 50 ml @ 100 mls/hr Q6 IVPB ; Start 02/23/16 at 18:00 Fluconazole/ Sodium Chloride (Diflucan 100 Mg/ NS (Pmx)) 50 ml @ 50 mls/hr Q24H IVPB Last administered on 02/23/16at 14:07; Admin Dose 50 MLS/HR; Start at 14:00 REJI WADE Feb 23, 2016 14:16
--- NOTE | 2016-02-23 15:49 | PN ---
DATE: 02/23/2016 SUBJECTIVE: This is an infectious disease progress note. No acute events overnight. The patient i s lying comfortably in bed. No fevers. His neurologic status got worse. He had seizures and very sluggish reaction of his pupils pending CT of the head. He is still on nicardipine drip. Also adriana dianna with fentanyl and Versed. WBC today 18.2 with H and H 9.1 and 28.1, platelets 184, neutrophils 7 6, bands 8, lymphs 5, monos 4. BUN 22, creatinine 2.05. MICROBIOLOGY: Sputum culture growing Angelina albicans. Blood cultures have been negative. Urine c ulture not done. ANTIMICROBIALS: The patient is on IV vancomycin, meropenem, status post Zosyn. INDWELLINGS: Endotracheal tube, NG tube, Smalls catheter, PICC line placed 02/21/2016. PHYSICAL EXAMINATION: GENERAL: This is a well-developed, middle-aged man who is in no distress. HEENT: Head atraumatic, normocephalic. Sclerae anicteric. Buccal mucosa dry. NECK: Supple, trachea midline. CHEST: Rise symmetrical. Breath sounds diminished to bases. HEART: S1, S2. ABDOMEN: Soft. Bowel tones hypoactive. EXTREMITIES: With trace edema. ASSESSMENT: 1. Severe sepsis. 2. Acute respiratory failure secondary to congestive heart failure and aspiration pneumonia with ch est x-ray revealing right lung consolidation. 3. Seizure disorder. 4. New onset of seizures. 5. Hypertensive urgency. 6. Type B aortic dissection. 7. Coagulase-negative staph bacteremia consistent with contaminant. 8. Acute renal failure. 9. Anemia. 10. Left upper extremity cephalic vein thrombosis. PLAN: The patient is doing poorly now with new onset seizures. We are going to discontinue meropen em and start him back on Zosyn and also Diflucan to cover Angelina in his sputum. Await for final cu ltures and CT of the brain. Follow up pulmonary, cardiology and nephrology recommendations. Follow cardiothoracic surgery recommendations. Prognosis guarded. Dictated By: HUSAM SANFORD ELECTRICAL ENGINEERING PROFESSOR for YESIKA HESS MD NI/NTS Conf#: [id number] DID#: [id number]
--- NOTE | 2016-02-23 16:03 | PN ---
Date/Time of Note Date/Time of Note DATE: 02/23/16 TIME: 16:02 Assessment/Plan Lines/Catheters IV Catheter Type (from Nrs): PICC Line Smalls in Place (from Nrsg): Yes Assessment/Plan Chief Complaint/Hosp Course IMPRESSION: Type B aortic dissection. The patient's blood pressure more controlled RECOMMENDATIONS: At this time, we would continue blood pressure management, monitor vital signs and laboratory values in an intensive care unit setting. No plan for surgery. I discussed with the patient and Dr. Lang and staff Problems: Subjective 24 Hr Interval Summary Constitutional: improved Pain Control: mild Exam/Review of Systems Vital Signs Vitals Vital Signs Date Time Temp Pulse Resp B/P Pulse Ox O2 Delivery O2 Flow Rate FiO2 02/23/16 14:00 76 20 128/73 97 Mechanical Ventilator 02/23/16 14:00 50 02/23/16 12:00 98.0 02/21/16 16:30 15.0 Intake and Output 02/22/16 02/22/16 02/23/16 15:00 23:00 07:00 Intake Total 1994.76 ml 1362.33 ml 1170.71 ml Output Total 485 ml 215 ml 210 ml Balance 1509.76 ml 1147.33 ml 960.71 ml Exam Neck: non-tender, supple Respiratory: clear to auscultation, normal air movement Cardiovascular: nl pulses, regular rate and rhythm Gastrointestinal: nl liver, spleen, non-tender, soft Results Result Diagram: 02/23/16 0415 02/23/16 0415 KAYLYN RADFORD MD Feb 23, 2016 16:03
[2016-02-23] MEDS: PIPER-TAZO 2.25 GM (PMX) 50 ML IVPB SCH (19:49)
--- NOTE | 2016-02-23 22:22 | RADRPT ---
PROCEDURE: CT Brain without contrast. CLINICAL INDICATION: Seizures, nonreactive pupil. TECHNIQUE: A CT of the brain was performed utilizing axial sections from the skull base through th e vertex without contrast. Multiplanar re-formations were generated. Images were reviewed on a high- resolution PACS workstation. CTDIvol: 39.30 mGy. DLP: 634.23 mGy-cm. COMPARISON: None available FINDINGS: There is no cerebral volume loss. No hydrocephalus is seen. There is no mass effect. No acute intrac ranial hemorrhage is identified. There is no extra-axial collection. Gross-white matter differentiati on is preserved. There is patchy low attenuation in the supratentorial white matter, a nonspecific f inding which most likely represents the sequela of mild chronic microvascular ischemic disease. There is no significant mucosal disease in the paranasal sinuses. The visualized mastoid air cells are clear. The ossesous structures are unremarkable. The extracranial soft tissues are unremarkable. IMPRESSION: 1. No acute intracranial pathology. 2. Mild chronic microvascular ischemic changes. RPTAT: HTAR .Tyson Owusu MD, MD Date Time Electronically viewed and signed by .Tyson Owusu MD, MD on 02/23/2016 22:22 .R/
--- NOTE | 2016-02-23 22:41 | RADRPT ---
PROCEDURE: CT Chest without contrast. CLINICAL INDICATION: Pneumonia respiratory failure, Butler type B aortic dissection. TECHNIQUE: CT scan of the chest without contrast was performed on a multidetector high-resolution CT scanner. Coronal and sagittal reformatted images were obtained from the axial source images. The total exam CTDI equals 20.26 mGy and the total exam DLP equals 739.97 mGy-cm. There is beam-hardeni ng artifact arising from the patient's arms by his side projected over the chest limiting evaluation . COMPARISON: Chest x-ray of 02/23/2016 at 05:25 a.m. and CTA of the chest of 02/18/2016 FINDINGS: The tip of the endotracheal tube is approximately 2.5 cm above the francisco. Nasogastric tube is in t he stomach with the side port near the gastroesophageal junction. Right PICC line tip in the upper right atrium. The patient has a known Butler type B aortic dissection demonstrated on the CTA of 1 04/20/2015. The maximum diameter of the dissecting aneurysm of the descending aorta presently equals 4.5 cm at the distal aspect of the aortic arch not significantly changed compared to the CTA. Card iomegaly is again seen with left ventricular prominence. Small bilateral pleural effusions have appe ared since the previous CTA. There is a small pericardial effusion which appears minimally increase d compared to previous CTA. Vicarious excretion of contrast in the gallbladder. Areas of consolidat ion are seen in both lungs appearing since the previous CTA greatest in the right upper lobe and por tions of the right middle and bilateral lower lobes where there is dense consolidation. Schmorl's nodes in thoracic spine. Appearance of degenerative changes at sternomanubrial joint IMPRESSION: Tip of endotracheal tube approximate 2.5 cm above the francisco. Nasogastric tube in stomach with side port near gastroesophageal junction. Right PICC line tip in upper right atrium. Known Butler typ e B aortic dissection. Cardiomegaly with left ventricular prominence again seen. Small bilateral pl eural effusions have appeared since the CTA of 02/18/2016. Small pericardial effusion minimally inc reased compared to previous CTA. Areas of consolidation are seen in both lungs appearing since the p revious CTA greatest in the right upper lobe and portions of the right middle and bilateral lower lo bes where there is dense consolidation suggestive of areas of pneumonia and possible aspiration. Ple ase see above. RPTAT: HJES .Joel Thapa MD, MD Date Time Electronically viewed and signed by .Joel Thapa MD, on 02/23/2016 22:41 .S/
[2016-02-23] MEDS ORDERED: GLUCAGON 1 MG INJ IM PRN (23:15)
[2016-02-23] MEDS ORDERED: GLUCOSE GEL 15 GRAM TUBE PO PRN ×2 (23:15)
[2016-02-23] MEDS ORDERED: DEXTROSE 50% 50 ML SYRINGE IV PRN ×2 (23:15)
[2016-02-23] MEDS ORDERED: GLUCOSE GEL 15 GRAM TUBE BUCCAL PRN (23:15)
[2016-02-24] VITALS (93 sets, daily range): BP systolic 100–196; BP diastolic 56–122; PULSE 65–95; RESP 16–27
[2016-02-24] MEDS: PIPER-TAZO 2.25 GM (PMX) 50 ML IVPB SCH ×4 (00:37→17:42)
[2016-02-24] MEDS: PROPOFOL 100 ML IV SCH ×4 (00:38→16:42)
[2016-02-24] MEDS: INSULIN ASPART [NOVOLOG] 3 ML PEN SC SCH ×6 (00:52→21:00)
[2016-02-24] MEDS: IPRATROPIUM (HFA) 12.9 GM INHALER INH SCH ×4 (01:28→20:05)
[2016-02-24] MEDS: ALBUTEROL HFA 8 GM INHALER INH SCH ×4 (01:29→20:06)
[2016-02-24] MEDS: LEVETIRACETAM IV 1,000 MG in SOD CHLORIDE 0.9% 100 ML IVPB SCH ×3 (02:04→21:33)
[2016-02-24] MEDS: LORAZEPAM 2 MG INJ IV PRN ×3 (02:07→12:49)
[2016-02-24 05:10] LABS: CREATININE 1.98 mg/dl (0.61-1.24)
[2016-02-24] MEDS: SOD CHLORIDE 0.9% 1,000 ML IV SCH ×2 (05:13→18:00)
[2016-02-24] MEDS: PANTOPRAZOLE 40 MG INJ IV SCH (05:51)
[2016-02-24] MEDS: METOPROLOL 50 MG TAB PO SCH ×3 (05:52→21:34)
[2016-02-24] MEDS: FENTAnyl 1,000 MCG in DEXTROSE 5% 80 ML IV SCH ×2 (07:38→17:41)
[2016-02-24 08:59] LABS: AADO2 Arterial 135.2 mmHg (7.0-24.0); Allen Test ACCEPTAB; Arterial Base Excess -2.6 mmol/L (-3.0-3); Arterial COHb 0.3 % (0.0-3.0); Arterial Fraction of Oxyhgb 97.1 % (93.0-99.0); Arterial HCO3 22.2 mmol/L (22.0-26.0); Arterial MetHb 0.2 % (0.0-1.5); Arterial Total Hemglobin 11.7 g/dl (12.0-18.0); MODE VENT - AC
[2016-02-24] MEDS: FERROUS SULFATE 60 MG/ML 5ML CUP GTB SCH ×2 (09:24→21:33)
[2016-02-24] MEDS: HEPARIN 5,000 UNIT/0.5 ML SYG SC SCH ×2 (09:26→21:48)
--- NOTE | 2016-02-24 10:42 | CONS ---
Date/Time of Note Date/Time of Note DATE: 02/24/16 TIME: 10:36 Assessment/Plan Assessment/Plan Chief Complaint/Hosp Course Imp: 1.HTN emergency-NL EF by echo this admit-under reasonable control on combination of IV drips and PO meds 2.Aortic dissection-type B 3.abnl ecg-lateral TWI-negative troponin x 3 since admit 4.anxiety 5.ARF 6. Pericardial effusion by echo-small with NL EF Recc: -Tele in ICU -Weaning Nicardipine/off all other drips at this point -Follow volume status closely -serial ecg's -Continue PO BB/CCB/minoxindil/hydralazine and may need to start to hold some of po medications as BP's are trending lower -Slow uptitration of PO anti-hypertensives with transition off of IV drips -ongoing surgical follow-up -sedation vacation and f/u MS closely Problems: Consultation Date/Type/Reason Admit Date/Time Feb 18, 2016 at 09:14 Initial Consult Date 02/19/2016 Type of Consultation: Cardiology Reason for Consultation HTN/aortic dissection Referring Provider: TIFFANIE HEARD MD Exam/Review of Systems Vital Signs Vitals Vital Signs Date Time Temp Pulse Resp B/P Pulse Ox O2 Delivery O2 Flow Rate FiO2 02/24/16 09:00 77 20 124/65 100 Mechanical Ventilator 02/24/16 08:00 98.9 02/24/16 05:15 40 02/21/16 16:30 15.0 Intake and Output 02/23/16 02/23/16 02/24/16 14:59 22:59 06:59 Intake Total 735.70 ml 1563.082 ml 1917.206 ml Output Total 1200 ml 1650 ml 1000 ml Balance -464.30 ml -86.918 ml 917.206 ml Exam Review of Systems: CONSTITUTIONAL: No fevers, chills. PULMONARY: intubated CARDIOVASCULAR: No obvious chest pain/palpitations GASTROINTESTINAL: No nausea/vomiting. GENITOURINARY: No hematuria/dysuria. MUSCULOSKELETAL: No obvious myagias/arthalgias. PSYCHIATRIC: no documented depression NEUROLOGIC: No weakness Constitutional: other (sedated) Psych: no complaints ENMT: mucosa pink and moist Neck: supple Respiratory: clear to auscultation Cardiovascular: regular rate and rhythm Gastrointestinal: non-tender, soft Musculoskeletal: muscle tone Extremities: normal pulses Neurological: other (No focal deficits) Results Result Diagram: 02/23/16 0415 02/24/16 0400 Results 24 hrs Laboratory Tests Test 02/24/16 00:40 02/24/16 04:00 02/24/16 05:51 02/24/16 07:00 Bedside Glucose 154 116 Blood Urea Nitrogen 25 H Creatinine 1.98 H Arterial Blood HCO3 22.2 Arterial Blood Base Excess -2.6 Arterial Blood Oxygen Saturation 97.6 Jovanny Test ACCEPTAB Arterial Blood Gas Puncture Site Right Radial Arterial Blood Carboxyhemoglobin 0.3 Arterial Blood Date Drawn 02/24/2016 8:20:56 AM Arterial Blood Methemoglobin 0.2 Arterial Blood pCO2 (Temp correct) 38.4 Arterial Blood pH (Temp corrected) 7.379 Arterial Blood pO2 (Temp corrected) 105.8 H Blood Gas A-a O2 Differential 135.2 H Blood Gas Actual Respiration Rate 20 Blood Gas Low PEEP Setting 16.0 Blood Gas Modality VENT - AC Blood Gas Notified Time 02/24/2016 8:58:59 AM Blood Gas Notified Whom Lionel DELEON Blood Gas Respiration Rate 20.0 Blood Gas Specimen Source Blood arterial Blood Gas Temperature 37.0 Blood Gas Tidal Volume 550.0 FiO2 40.0 Oxyhemoglobin Percent 97.1 Total Hemoglobin 11.7 L Test 02/24/16 08:36 Bedside Glucose 118 Medications Medications Current Medications Sodium Chloride (NS) 1,000 ml @ 50 mls/hr Q20H IV Last administered on at 09:36; Admin Dose 50 MLS/HR; Start 02/18/16 at 09:13 Ondansetron HCl (Zofran Inj) 4 mg Q6H PRN IV NAUSEA AND/OR VOMITING; Start 02/18/16 at 09:30 Acetaminophen (Tylenol Supp) 650 mg Q4H PRN [place] PAIN LEVEL 1-3 OR FEVER; Start 02/18/16 at 09:30 Morphine Sulfate (morphine) 2 mg Q4H PRN IV PAIN LEVEL 7-10 Last administered on 02/21/16at 09:35; Admin Dose 2 MG; Start 02/18/16 at 09:30 Bisacodyl (Dulcolax Supp) 10 mg DAILY PRN [place] CONSTIPATION; Start 02/18/16 at 09 :30 Pantoprazole 40 mg 40 mg DAILY@06 IV Last administered on 02/24/16 05:51; Admin Dose 40 MG; Start 02/19/16 at 06:00 Esmolol HCl/ Sodium Chloride 250 ml @ 28.8 mls/hr TITRATE IV Last administered on 02/22/16 16:19; Admin Dose 57.6 MLS/HR; Start 02/18/16 at 09:30 Diltiazem HCl (Cardizem-D5W 125 Mg/125 ml Drip) 125 ml @ 5 mls/hr TITRATE IV Last administered on 02/21/16 12:56; Admin Dose 15 MLS/HR; Start 02/19/16 at 14 :00 Amlodipine Besylate (Norvasc) 5 mg BID PO Last administered on 02/23/16 20:13 ; Admin Dose 5 MG; Start 02/20/16 at 21:00 Hydralazine HCl (Apresoline) 10 mg Q6H PRN IV ELEVATED SYSTOLIC BP Last administered on 02/21/16 07:49; Admin Dose 10 MG; Start 02/20/16 at 22:00 Minoxidil 5 mg 5 mg BID PO Last administered on 02/23/16 20:14; Admin Dose 5 MG; Start 02/20/16 at 22:00 Nicardipine HCl/ Dextrose (Cardene Iv/D5W) 250 ml @ 50 mls/hr TITRATE IV Last administered on 02/24/16 06:36; Admin Dose 50 MLS/HR; Start 02/21/16 at 12:30 Metoprolol Tartrate 5 mg 5 mg Q4H PRN IV HR>55 Hold SBP<100; Start 02/21/16 at 11:30 Propofol 100 ml @ 3.189 mls/ hr Q12H IV Last administered on 02/24/16 07:02 ; Admin Dose 15.945 MLS/HR; Start 02/21/16 at 16:30 Fentanyl/Dextrose (D5W) 100 ml @ 0 mls/hr TITRATE IV Last administered on 02/23 07:38; Admin Dose 100 MLS/HR; Start 02/21/16 at 16:30 IV Flush (NS 10 ml) 10 ml PRN PRN IV IV PROTOCOL; Start 02/21/16 at 18:30 Ferrous Sulfate (Feosol Liquid Cup) 300 mg BID GTB Last administered on at 09:24; Admin Dose 300 MG; Start 02/22/16 at 10:00 Metoprolol Tartrate 50 mg 50 mg Q8 PO Last administered on 02/24/16at 05:52; Admin Dose 50 MG; Start 02/22/16 at 14:00 Vancomycin HCl/ Sodium Chloride (Vancocin/NS) 150 ml @ 75 mls/hr Q12H IVPB Last administered on 02/23/16at 22:58; Admin Dose 75 MLS/HR; Start 02/22/16 at 23 :00 Heparin Sodium (Porcine) (Heparin (5000 Units/0.5 ml)) 5,000 unit BID SC Last administered on 02/24/16at 09:26; Admin Dose 5,000 UNIT; Start 02/22/16 at 21:00 Lorazepam (Ativan) 1 mg Q1H PRN IV ANXIETY Last administered on 02/24/16 04: 57; Admin Dose 1 MG; Start 02/23/16 at 11:30 Hydralazine HCl 25 mg 25 mg Q8 PO Last administered on 02/24/16at 05:53; Admin Dose 25 MG; Start 02/23/16 at 14:00 Piperacillin Sod/ Tazobactam Sod 50 ml @ 100 mls/hr Q6 IVPB Last administered on 02/24/16at 05:52; Admin Dose 100 MLS/HR; Start 02/23/16 at 18:00 Fluconazole/ Sodium Chloride (Diflucan 100 Mg/ NS (Pmx)) 50 ml @ 50 mls/hr Q24H IVPB Last administered on 02/23/16at 14:07; Admin Dose 50 MLS/HR; Start at 14:00 Insulin Aspart (Novolog Insulin Pen) NOVOLOG *MILD* ALGORI... Q4 SC Last administered on 02/24/16at 00:52; Admin Dose 1 UNIT; Start 02/24/16 at 01:00 Miscellaneous Information 1 ea NOTE XX ; Start 02/23/16 at 23:15 Glucose (Glutose) 15 gm Q15M PRN PO DECREASED GLUCOSE; Start 02/23/16 at 23:15 Glucose (Glutose) 22.5 gm Q15M PRN PO DECREASED GLUCOSE; Start 02/23/16 at 23: 15 Dextrose (D50w Syringe) 25 ml Q15M PRN IV DECREASED GLUCOSE; Start 02/23/16 at 23:15 Dextrose (D50w Syringe) 50 ml Q15M PRN IV DECREASED GLUCOSE; Start 02/23/16 at 23:15 Glucagon (Glucagen) 1 mg Q15M PRN IM DECREASED GLUCOSE; Start 02/23/16 at 23:15 Glucose 15 gm 15 gm Q15M PRN BUCCAL DECREASED GLUCOSE; Start 02/23/16 at 23:15 Levetiracetam/ Sodium Chloride (Keppra Iv/NS) 110 ml @ 440 mls/hr BID IVPB Last administered on 02/24/16at 09:24; Admin Dose 440 MLS/HR; Start 02/24/16 at 01:00 JUNAID PAZ Feb 24, 2016 10:42
--- NOTE | 2016-02-24 10:46 | RADRPT ---
PROCEDURE: Chest 1 views. CLINICAL INDICATION: Shortness of breath, pneumonia, congestive heart failure TECHNIQUE: AP views of the chest were obtained. COMPARISON: February 23, [address] February 23, 2016 FINDINGS: The heart is large. Calcified atherosclerosis is noted in the aorta. Endotracheal and nasogastric t ubes are stable. Right-sided PICC line is unchanged. Patchy infiltrates throughout the right lung have mildly decreased. Significant residual remains. Retrocardiac opacity is observed. Osseous st ructures are intact. IMPRESSION: Cardiomegaly with calcified atherosclerosis in the aorta. Interval decrease in patchy infiltrates throughout the right lung. Significant residual remains. Retrocardiac opacity that may reflect left lower lobe atelectasis or infiltrate combined with small pleural effusion. Stable support lines and tubes. RPTAT: AA .Otilio Enriquez MD, Date Time Electronically viewed and signed by .Otilio Enriquez MD, on 02/24/2016 10:46 .P/
[2016-02-24] MEDS: AMLODIPINE 5 MG TAB PO SCH ×2 (10:51→21:34)
[2016-02-24] MEDS: VANCOMYCIN 750 MG in SOD CHLORIDE 0.9% 150 ML IVPB SCH ×2 (10:57→22:44)
--- NOTE | 2016-02-24 11:08 | CONS ---
Date/Time of Note Date/Time of Note DATE: 02/24/16 TIME: 11:06 Assessment/Plan Assessment/Plan Additional Assessment/Plan 1. Acute kidney injury, likely secondary to acute tubular necrosis from contrast-induced nephropathy and also secondary to ischemic acute tubular necrosis from aortic dissection. 2. A type B Helio aortic dissection. 3. Hypertensive emergency on multiple drips. 4. acute resp failiure intubated on ventilator PLAN: Cr 1.98- making good urine output 3.8 liter will follow up k normal Consultation Date/Type/Reason Admit Date/Time Feb 18, 2016 at 09:14 Type of Consultation: Cardiology Referring Provider: TIFFANIE HEARD MD 24 HR Interval Summary Free Text/Dictation pt stable, intubated, BUN/Cr improving Exam/Review of Systems Vital Signs Vitals Vital Signs Date Time Temp Pulse Resp B/P Pulse Ox O2 Delivery O2 Flow Rate FiO2 02/24/16 09:00 77 20 124/65 100 Mechanical Ventilator 02/24/16 08:00 98.9 02/24/16 05:15 40 02/21/16 16:30 15.0 Intake and Output 02/23/16 02/23/16 02/24/16 15:00 23:00 07:00 Intake Total 901.65 ml 1704.455 ml 1639.883 ml Output Total 1450 ml 1550 ml 925 ml Balance -548.35 ml 154.455 ml 714.883 ml Results Result Diagram: 02/23/16 0415 02/24/16 0400 Results 24 hrs Laboratory Tests Test 02/24/16 00:40 02/24/16 04:00 02/24/16 05:51 02/24/16 07:00 Bedside Glucose 154 116 Blood Urea Nitrogen 25 H Creatinine 1.98 H Arterial Blood HCO3 22.2 Arterial Blood Base Excess -2.6 Arterial Blood Oxygen Saturation 97.6 Jovanny Test ACCEPTAB Arterial Blood Gas Puncture Site Right Radial Arterial Blood Carboxyhemoglobin 0.3 Arterial Blood Date Drawn 02/24/2016 8:20:56 AM Arterial Blood Methemoglobin 0.2 Arterial Blood pCO2 (Temp correct) 38.4 Arterial Blood pH (Temp corrected) 7.379 Arterial Blood pO2 (Temp corrected) 105.8 H Blood Gas A-a O2 Differential 135.2 H Blood Gas Actual Respiration Rate 20 Blood Gas Low PEEP Setting 16.0 Blood Gas Modality VENT - AC Blood Gas Notified Time 02/24/2016 8:58:59 AM Blood Gas Notified Whom Lionel DELEON Blood Gas Respiration Rate 20.0 Blood Gas Specimen Source Blood arterial Blood Gas Temperature 37.0 Blood Gas Tidal Volume 550.0 FiO2 40.0 Oxyhemoglobin Percent 97.1 Total Hemoglobin 11.7 L Test 02/24/16 08:36 Bedside Glucose 118 Medications Medications Current Medications Sodium Chloride (NS) 1,000 ml @ 50 mls/hr Q20H IV Last administered on at 09:36; Admin Dose 50 MLS/HR; Start 02/18/16 at 09:13 Ondansetron HCl (Zofran Inj) 4 mg Q6H PRN IV NAUSEA AND/OR VOMITING; Start 02/18/16 at 09:30 Acetaminophen (Tylenol Supp) 650 mg Q4H PRN [place] PAIN LEVEL 1-3 OR FEVER; Start 02/18/16 at 09:30 Morphine Sulfate (morphine) 2 mg Q4H PRN IV PAIN LEVEL 7-10 Last administered on 02/21/16at 09:35; Admin Dose 2 MG; Start 02/18/16 at 09:30 Bisacodyl (Dulcolax Supp) 10 mg DAILY PRN [place] CONSTIPATION; Start 02/18/16 at 09 :30 Pantoprazole 40 mg 40 mg DAILY@06 IV Last administered on 02/24/16at 05:51; Admin Dose 40 MG; Start 02/19/16 at 06:00 Esmolol HCl/ Sodium Chloride 250 ml @ 28.8 mls/hr TITRATE IV Last administered on 02/22/16at 16:19; Admin Dose 57.6 MLS/HR; Start 02/18/16 at 09:30 Diltiazem HCl (Cardizem-D5W 125 Mg/125 ml Drip) 125 ml @ 5 mls/hr TITRATE IV Last administered on 02/21/16at 12:56; Admin Dose 15 MLS/HR; Start 02/19/16 at 14 :00 Amlodipine Besylate (Norvasc) 5 mg BID PO Last administered on 02/24/16at 10:51 ; Admin Dose 5 MG; Start 02/20/16 at 21:00 Hydralazine HCl (Apresoline) 10 mg Q6H PRN IV ELEVATED SYSTOLIC BP Last administered on 02/21/16 07:49; Admin Dose 10 MG; Start 02/20/16 at 22:00 Minoxidil 5 mg 5 mg BID PO Last administered on 02/23/16 20:14; Admin Dose 5 MG; Start 02/20/16 at 22:00 Nicardipine HCl/ Dextrose (Cardene Iv/D5W) 250 ml @ 50 mls/hr TITRATE IV Last administered on 02/24/16 06:36; Admin Dose 50 MLS/HR; Start 02/21/16 at 12:30 Metoprolol Tartrate 5 mg 5 mg Q4H PRN IV HR>55 Hold SBP<100; Start 02/21/16 at 11:30 Propofol 100 ml @ 3.189 mls/ hr Q12H IV Last administered on 02/24/16 10:38 ; Admin Dose 3.189 MLS/HR; Start 02/21/16 at 16:30 Fentanyl/Dextrose (D5W) 100 ml @ 0 mls/hr TITRATE IV Last administered on 02/23 07:38; Admin Dose 100 MLS/HR; Start 02/21/16 at 16:30 IV Flush (NS 10 ml) 10 ml PRN PRN IV IV PROTOCOL; Start 02/21/16 at 18:30 Ferrous Sulfate (Feosol Liquid Cup) 300 mg BID GTB Last administered on 09:24; Admin Dose 300 MG; Start 02/22/16 at 10:00 Metoprolol Tartrate 50 mg 50 mg Q8 PO Last administered on 02/24/16 05:52; Admin Dose 50 MG; Start 02/22/16 at 14:00 Vancomycin HCl/ Sodium Chloride (Vancocin/NS) 150 ml @ 75 mls/hr Q12H IVPB Last administered on 02/24/16 10:57; Admin Dose 75 MLS/HR; Start 02/22/16 at 23:00 Heparin Sodium (Porcine) (Heparin (5000 Units/0.5 ml)) 5,000 unit BID SC Last administered on 02/24/16 09:26; Admin Dose 5,000 UNIT; Start 02/22/16 at 21:00 Lorazepam (Ativan) 1 mg Q1H PRN IV ANXIETY Last administered on 02/24/16 04: 57; Admin Dose 1 MG; Start 02/23/16 at 11:30 Hydralazine HCl 25 mg 25 mg Q8 PO Last administered on 02/24/16at 05:53; Admin Dose 25 MG; Start 02/23/16 at 14:00 Piperacillin Sod/ Tazobactam Sod 50 ml @ 100 mls/hr Q6 IVPB Last administered on 02/24/16at 05:52; Admin Dose 100 MLS/HR; Start 02/23/16 at 18:00 Fluconazole/ Sodium Chloride (Diflucan 100 Mg/ NS (Pmx)) 50 ml @ 50 mls/hr Q24H IVPB Last administered on 02/23/16at 14:07; Admin Dose 50 MLS/HR; Start at 14:00 Insulin Aspart (Novolog Insulin Pen) NOVOLOG *MILD* ALGORI... Q4 SC Last administered on 02/24/16at 00:52; Admin Dose 1 UNIT; Start 02/24/16 at 01:00 Miscellaneous Information 1 ea NOTE XX ; Start 02/23/16 at 23:15 Glucose (Glutose) 15 gm Q15M PRN PO DECREASED GLUCOSE; Start 02/23/16 at 23:15 Glucose (Glutose) 22.5 gm Q15M PRN PO DECREASED GLUCOSE; Start 02/23/16 at 23: 15 Dextrose (D50w Syringe) 25 ml Q15M PRN IV DECREASED GLUCOSE; Start 02/23/16 at 23:15 Dextrose (D50w Syringe) 50 ml Q15M PRN IV DECREASED GLUCOSE; Start 02/23/16 at 23:15 Glucagon (Glucagen) 1 mg Q15M PRN IM DECREASED GLUCOSE; Start 02/23/16 at 23:15 Glucose 15 gm 15 gm Q15M PRN BUCCAL DECREASED GLUCOSE; Start 02/23/16 at 23:15 Levetiracetam/ Sodium Chloride (Keppra Iv/NS) 110 ml @ 440 mls/hr BID IVPB Last administered on 02/24/16at 09:24; Admin Dose 440 MLS/HR; Start 02/24/16 at 01:00 MOSES HARRIS MD Feb 24, 2016 11:08
--- NOTE | 2016-02-24 11:30 | PN ---
Date/Time of Note Date/Time of Note DATE: 02/24/16 TIME: 11:27 Assessment/Plan VTE Prophylaxis VTE Prophylaxis Intervention: heparin Lines/Catheters IV Catheter Type (from Nrs): PICC Line Central line still needed: Yes Urinary Cath still in place: Yes Reason Cath still needed: other (indicate) (monitor I&O) Assessment/Plan Chief Complaint/Hosp Course Assessment and plan 1. 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 Vascular surgeon is following. . Follow up with cardiology recs. Blood pressure in better control 2. Hypertensive urgency. Blood pressure in better control. off cardene drip. monitor on oral antihypertensives 3. Iron deficiency anemia. We'll continue on iron supplement 4. Leukocytosis.. Patient noted with staph species in blood. ID consult following. cont on abx 5. Hypokalemia. We will monitor and replete as needed 6. Acute kidney injury. Likely secondary to hemodynamics. cloth checker following. cont to monitor renal panel 7. Respiratory distress likely secondary to HCAP. Intubated now. cont abx and mechanical ventilation. CXR better today. vent liberation per pulmonary 8. Bacteremia with staph species. cont on abx per ID 9. Left cephalic vein thrombus. Is superficial vein. cont elevation and warm compress as needed. GERD prophylaxis: PPI DVT prophylaxis: SCDs/heparin Disposition and plan: off cardene drip. monitor on oral anithypertensives. Assess for ability for vent liberation today. continue supportive care Discussed plan of care with Dr. Raymundo Critical care time: 30 minutes Problems: Subjective 24 Hr Interval Summary Free Text/Dictation remains intubated. no s/s of distress. Exam/Review of Systems Vital Signs Vitals Vital Signs Date Time Temp Pulse Resp B/P Pulse Ox O2 Delivery O2 Flow Rate FiO2 02/24/16 09:00 77 20 124/65 100 Mechanical Ventilator 02/24/16 08:00 98.9 02/24/16 05:15 40 02/21/16 16:30 15.0 Intake and Output 02/23/16 02/23/16 02/24/16 15:00 23:00 07:00 Intake Total 901.65 ml 1704.455 ml 1639.883 ml Output Total 1450 ml 1550 ml 925 ml Balance -548.35 ml 154.455 ml 714.883 ml Exam General: intubated and sedated Eyes: pupils equal round, Anicteric sclera Neck: Supple nontender, no JVD Cardiac: S1, S2 auscultated, regular rhythm and rate Pulmonary: no obvious wheezing or rales GI: Abdomen soft nontender nondistended, bowel sounds active Extremities: No edema bilateral lower extremities Skin: Clean dry and intact Neurologic: Alert to person place and time and situation Results Result Diagram: 02/23/16 0415 02/24/16 0400 Results 24 hrs Laboratory Tests Test 02/24/16 00:40 02/24/16 04:00 02/24/16 05:51 02/24/16 07:00 Bedside Glucose 154 116 Blood Urea Nitrogen 25 H Creatinine 1.98 H Arterial Blood HCO3 22.2 Arterial Blood Base Excess -2.6 Arterial Blood Oxygen Saturation 97.6 Jovanny Test ACCEPTAB Arterial Blood Gas Puncture Site Right Radial Arterial Blood Carboxyhemoglobin 0.3 Arterial Blood Date Drawn 02/24/2016 8:20:56 AM Arterial Blood Methemoglobin 0.2 Arterial Blood pCO2 (Temp correct) 38.4 Arterial Blood pH (Temp corrected) 7.379 Arterial Blood pO2 (Temp corrected) 105.8 H Blood Gas A-a O2 Differential 135.2 H Blood Gas Actual Respiration Rate 20 Blood Gas Low PEEP Setting 16.0 Blood Gas Modality VENT - AC Blood Gas Notified Time 02/24/2016 8:58:59 AM Blood Gas Notified Whom Lionel DELEON Blood Gas Respiration Rate 20.0 Blood Gas Specimen Source Blood arterial Blood Gas Temperature 37.0 Blood Gas Tidal Volume 550.0 FiO2 40.0 Oxyhemoglobin Percent 97.1 Total Hemoglobin 11.7 L Test 02/24/16 08:36 Bedside Glucose 118 Medications Medications Current Medications Sodium Chloride (NS) 1,000 ml @ 50 mls/hr Q20H IV Last administered on at 09:36; Admin Dose 50 MLS/HR; Start 02/18/16 at 09:13 Ondansetron HCl (Zofran Inj) 4 mg Q6H PRN IV NAUSEA AND/OR VOMITING; Start 02/18/16 at 09:30 Acetaminophen (Tylenol Supp) 650 mg Q4H PRN [place] PAIN LEVEL 1-3 OR FEVER; Start 02/18/16 at 09:30 Morphine Sulfate (morphine) 2 mg Q4H PRN IV PAIN LEVEL 7-10 Last administered on 02/21/16 09:35; Admin Dose 2 MG; Start 02/18/16 at 09:30 Bisacodyl (Dulcolax Supp) 10 mg DAILY PRN [place] CONSTIPATION; Start 02/18/16 at 09 :30 Pantoprazole 40 mg 40 mg DAILY@06 IV Last administered on 02/24/16at 05:51; Admin Dose 40 MG; Start 02/19/16 at 06:00 Esmolol HCl/ Sodium Chloride 250 ml @ 28.8 mls/hr TITRATE IV Last administered on 02/22/16 16:19; Admin Dose 57.6 MLS/HR; Start 02/18/16 at 09:30 Diltiazem HCl (Cardizem-D5W 125 Mg/125 ml Drip) 125 ml @ 5 mls/hr TITRATE IV Last administered on 02/21/16 12:56; Admin Dose 15 MLS/HR; Start 02/19/16 at 14 :00 Amlodipine Besylate (Norvasc) 5 mg BID PO Last administered on 02/24/16 10:51 ; Admin Dose 5 MG; Start 02/20/16 at 21:00 Hydralazine HCl (Apresoline) 10 mg Q6H PRN IV ELEVATED SYSTOLIC BP Last administered on 02/21/16 07:49; Admin Dose 10 MG; Start 02/20/16 at 22:00 Minoxidil 5 mg 5 mg BID PO Last administered on 02/23/16at 20:14; Admin Dose 5 MG; Start 02/20/16 at 22:00 Nicardipine HCl/ Dextrose (Cardene Iv/D5W) 250 ml @ 50 mls/hr TITRATE IV Last administered on 02/24/16at 06:36; Admin Dose 50 MLS/HR; Start 02/21/16 at 12:30 Metoprolol Tartrate 5 mg 5 mg Q4H PRN IV HR>55 Hold SBP<100; Start 02/21/16 at 11:30 Propofol 100 ml @ 3.189 mls/ hr Q12H IV Last administered on 02/24/16at 10:38 ; Admin Dose 3.189 MLS/HR; Start 02/21/16 at 16:30 Fentanyl/Dextrose (D5W) 100 ml @ 0 mls/hr TITRATE IV Last administered on 02/23 07:38; Admin Dose 100 MLS/HR; Start 02/21/16 at 16:30 IV Flush (NS 10 ml) 10 ml PRN PRN IV IV PROTOCOL; Start 02/21/16 at 18:30 Ferrous Sulfate (Feosol Liquid Cup) 300 mg BID GTB Last administered on 09:24; Admin Dose 300 MG; Start 02/22/16 at 10:00 Metoprolol Tartrate 50 mg 50 mg Q8 PO Last administered on 02/24/16 05:52; Admin Dose 50 MG; Start 02/22/16 at 14:00 Vancomycin HCl/ Sodium Chloride (Vancocin/NS) 150 ml @ 75 mls/hr Q12H IVPB Last administered on 02/24/16 10:57; Admin Dose 75 MLS/HR; Start 02/22/16 at 23:00 Heparin Sodium (Porcine) (Heparin (5000 Units/0.5 ml)) 5,000 unit BID SC Last administered on 02/24/16 09:26; Admin Dose 5,000 UNIT; Start 02/22/16 at 21:00 Lorazepam (Ativan) 1 mg Q1H PRN IV ANXIETY Last administered on 02/24/16 04: 57; Admin Dose 1 MG; Start 02/23/16 at 11:30 Hydralazine HCl 25 mg 25 mg Q8 PO Last administered on 02/24/16 05:53; Admin Dose 25 MG; Start 02/23/16 at 14:00 Piperacillin Sod/ Tazobactam Sod 50 ml @ 100 mls/hr Q6 IVPB Last administered on 02/24/16 05:52; Admin Dose 100 MLS/HR; Start 02/23/16 at 18:00 Fluconazole/ Sodium Chloride (Diflucan 100 Mg/ NS (Pmx)) 50 ml @ 50 mls/hr Q24H IVPB Last administered on 02/23/16 14:07; Admin Dose 50 MLS/HR; Start at 14:00 Insulin Aspart (Novolog Insulin Pen) NOVOLOG *MILD* ALGORI... Q4 SC Last administered on 02/24/16 00:52; Admin Dose 1 UNIT; Start 02/24/16 at 01:00 Miscellaneous Information 1 ea NOTE XX ; Start 02/23/16 at 23:15 Glucose (Glutose) 15 gm Q15M PRN PO DECREASED GLUCOSE; Start 02/23/16 at 23:15 Glucose (Glutose) 22.5 gm Q15M PRN PO DECREASED GLUCOSE; Start 02/23/16 at 23: 15 Dextrose (D50w Syringe) 25 ml Q15M PRN IV DECREASED GLUCOSE; Start 02/23/16 at 23:15 Dextrose (D50w Syringe) 50 ml Q15M PRN IV DECREASED GLUCOSE; Start 02/23/16 at 23:15 Glucagon (Glucagen) 1 mg Q15M PRN IM DECREASED GLUCOSE; Start 02/23/16 at 23:15 Glucose 15 gm 15 gm Q15M PRN BUCCAL DECREASED GLUCOSE; Start 02/23/16 at 23:15 Levetiracetam/ Sodium Chloride (Keppra Iv/NS) 110 ml @ 440 mls/hr BID IVPB Last administered on 02/24/16at 09:24; Admin Dose 440 MLS/HR; Start 02/24/16 at 01:00 REJI WADE Feb 24, 2016 11:30
[2016-02-24 12:35] LABS: BASOPHIL # 0.4 10^3/ul (0.0-0.1); BASOPHILS % 2.6 % (0.0-2.0); EOSINOPHILS # 0.6 10^3/ul (0.0-0.5); EOSINOPHILS % 3.7 % (0.0-7.0); HEMATOCRIT 28.1 % (42.0-52.0); HEMOGLOBIN 9.2 g/dl (14.0-18.0); LYMPHOCYTES % 5.8 % (15.0-51.0); MEAN CORPUSCULAR HEMOGLOBIN 25.8 pg (29.0-33.0); MEAN CORPUSCULAR HGB CONC 32.7 g/dl (32.0-37.0); MEAN CORPUSCULAR VOLUME 78.9 fl (82.0-101.0); MEAN PLATELET VOLUME 8.4 fl (7.4-10.4); MONOCYTE # 1.2 10^3/ul (0.3-0.9); MONOCYTES % 6.9 % (0.0-11.0); NEUTROPHIL # 13.6 10^3/ul (1.6-7.5); PLATELET COUNT 215 10^3/UL (140-440); RED BLOOD COUNT 3.57 10^6/ul (4.70-6.10); RED CELL DISTRIBUTION WIDTH 17.9 % (11.5-14.5); UNCORRECTED WBC 16.7 10^3/ul (4.8-10.8); WHITE BLOOD COUNT 16.7 10^3/ul (4.8-10.8)
[2016-02-24 12:41] LABS: POTASSIUM 3.1 mmol/L (3.5-5.1)
[2016-02-24 12:42] LABS: CONDITION 1; LH ANALYZER COMMENTS 1; SUSPECT 1
[2016-02-24 12:44] LABS: CALCIUM 8.1 mg/dl (8.4-10.2)
[2016-02-24] MEDS: MINOXIDIL 2.5 MG TAB PO SCH ×2 (13:10→21:33)
[2016-02-24] MEDS: FLUCONAZOLE 100 MG/NS (PMX) 50 ML IVPB SCH (14:45)
--- NOTE | 2016-02-24 15:33 | PN ---
Date/Time of Note Date/Time of Note DATE: 02/24/16 TIME: 15:32 Assessment/Plan Lines/Catheters IV Catheter Type (from Nrsg): PICC Line Smalls in Place (from Nrsg): Yes Assessment/Plan Chief Complaint/Hosp Course IMPRESSION: Type B aortic dissection. The patient's blood pressure more controlled RECOMMENDATIONS: At this time, we would continue blood pressure management, monitor vital signs and laboratory values in an intensive care unit setting. Vent support per pul medicine No plan for surgery. I discussed with the patient and Dr. Lang and staff Problems: Subjective 24 Hr Interval Summary Constitutional: improved Pain Control: mild Exam/Review of Systems Vital Signs Vitals Vital Signs Date Time Temp Pulse Resp B/P Pulse Ox O2 Delivery O2 Flow Rate FiO2 02/24/16 15:00 79 20 147/69 100 Mechanical Ventilator 02/24/16 12:00 100.8 02/24/16 08:00 40 02/21/16 16:30 15.0 Intake and Output 02/23/16 02/23/16 02/24/16 15:00 23:00 07:00 Intake Total 901.65 ml 1704.455 ml 1774.883 ml Output Total 1450 ml 1550 ml 925 ml Balance -548.35 ml 154.455 ml 849.883 ml Exam ENMT: mucosa pink and moist, nl external ears & nose, nl lips & teeth, nl nasal mucosa & septum Neck: non-tender, supple Respiratory: normal air movement Cardiovascular: nl pulses, regular rate and rhythm Results Result Diagram: 02/24/165 02/24/165 KAYLYN RADFORD MD Feb 24, 2016 15:33
--- NOTE | 2016-02-24 17:10 | CONS ---
Date/Time of Note Date/Time of Note DATE: 02/24/16 TIME: 17:06 Consult Date/Type/Reason Admit Date/Time Feb 18, 2016 at 09:14 Initial Consult Date Type of Consultation: pulm Ordering Provider: TIFFANIE HEARD MD Subjective Sedated on mechanical ventilation. Off nicardepine gtt. Objective Vital Signs Date Time Temp Pulse Resp B/P Pulse Ox O2 Delivery O2 Flow Rate FiO2 02/24/16 15:10 93 20 100 30 02/24/16 15:00 147/69 Mechanical Ventilator 02/24/16 12:00 100.8 02/21/16 16:30 15.0 Intake and Output 02/23/16 02/23/16 02/24/16 15:00 23:00 07:00 Intake Total 901.65 ml 1704.455 ml 1774.883 ml Output Total 1450 ml 1550 ml 925 ml Balance -548.35 ml 154.455 ml 849.883 ml VITAL SIGNS: As above NECK: Supple. No JVD, lymphadenopathy. CARDIAC: S1, S2. No added sounds or murmurs. CHEST: Diminished air entry bilaterally. ABDOMEN: Soft, nontender. No guarding or rebound. EXTREMITIES: No cyanosis, clubbing or edema. Results/Medications Result Diagram: 02/24/16 1215 02/24/16 1215 Results 24 hrs Laboratory Tests Test 02/24/16 00:40 02/24/16 04:00 02/24/16 05:51 02/24/16 07:00 Bedside Glucose 154 116 Blood Urea Nitrogen 25 H Creatinine 1.98 H Arterial Blood HCO3 22.2 Arterial Blood Base Excess -2.6 Arterial Blood Oxygen Saturation 97.6 Jovanny Test ACCEPTAB Arterial Blood Gas Puncture Site Right Radial Arterial Blood Carboxyhemoglobin 0.3 Arterial Blood Date Drawn 02/24/2016 8:20:56 AM Arterial Blood Methemoglobin 0.2 Arterial Blood pCO2 (Temp correct) 38.4 Arterial Blood pH (Temp corrected) 7.379 Arterial Blood pO2 (Temp corrected) 105.8 H Blood Gas A-a O2 Differential 135.2 H Blood Gas Actual Respiration Rate 20 Blood Gas Low PEEP Setting 16.0 Blood Gas Modality VENT - AC Blood Gas Notified Time 02/24/2016 8:58:59 AM Blood Gas Notified Whom Lionel DELEON Blood Gas Respiration Rate 20.0 Blood Gas Specimen Source Blood arterial Blood Gas Temperature 37.0 Blood Gas Tidal Volume 550.0 FiO2 40.0 Oxyhemoglobin Percent 97.1 Total Hemoglobin 11.7 L Test 02/24/16 08:36 02/24/16 10:45 02/24/16 12:15 02/24/16 13:07 Bedside Glucose 118 134 Vancomycin Level Trough 16.5 Anion Gap 11 Basophils # 0.4 H Basophils % 2.6 H Blood Morphology Comment Blood Urea Nitrogen 27 H Calcium Level 8.1 L Carbon Dioxide Level 23 Chloride Level 105 Creatinine 2.00 H Eosinophils # 0.6 H Eosinophils % 3.7 Glucose Level 133 # Hematocrit 28.1 L Hemoglobin 9.2 L Lymphocytes # 1.0 Lymphocytes % 5.8 L Mean Corpuscular Hemoglobin 25.8 L Mean Corpuscular Hemoglobin Concent 32.7 Mean Corpuscular Volume 78.9 L Mean Platelet Volume 8.4 Monocytes # 1.2 H Monocytes % 6.9 Neutrophils # 13.6 H Neutrophils % 81.0 H Nucleated Red Blood Cells # 0.0 Nucleated Red Blood Cells % 0.0 Platelet Count 215 Potassium Level 3.1 L Red Blood Count 3.57 L Red Cell Distribution Width 17.9 H Sodium Level 136 White Blood Count 16.7 H Test 02/24/16 16:38 Bedside Glucose 152 Medications Current Medications Sodium Chloride (NS) 1,000 ml @ 50 mls/hr Q20H IV Last administered on at 09:36; Admin Dose 50 MLS/HR; Start 02/18/16 at 09:13 Ondansetron HCl (Zofran Inj) 4 mg Q6H PRN IV NAUSEA AND/OR VOMITING; Start 02/18/16 at 09:30 Acetaminophen (Tylenol Supp) 650 mg Q4H PRN [place] PAIN LEVEL 1-3 OR FEVER Last administered on 02/24/16at 14:32; Admin Dose 650 MG; Start 02/18/16 at 09:30 Morphine Sulfate (morphine) 2 mg Q4H PRN IV PAIN LEVEL 7-10 Last administered on 02/21/16at 09:35; Admin Dose 2 MG; Start 02/18/16 at 09:30 Bisacodyl (Dulcolax Supp) 10 mg DAILY PRN [place] CONSTIPATION; Start 02/18/16 at 09 :30 Pantoprazole 40 mg 40 mg DAILY@06 IV Last administered on 02/24/16 05:51; Admin Dose 40 MG; Start 02/19/16 at 06:00 Esmolol HCl/ Sodium Chloride 250 ml @ 28.8 mls/hr TITRATE IV Last administered on 02/22/16 16:19; Admin Dose 57.6 MLS/HR; Start 02/18/16 at 09:30 Diltiazem HCl (Cardizem-D5W 125 Mg/125 ml Drip) 125 ml @ 5 mls/hr TITRATE IV Last administered on 02/21/16 12:56; Admin Dose 15 MLS/HR; Start 02/19/16 at 14 :00 Amlodipine Besylate (Norvasc) 5 mg BID PO Last administered on 02/24/16 10:51 ; Admin Dose 5 MG; Start 02/20/16 at 21:00 Hydralazine HCl (Apresoline) 10 mg Q6H PRN IV ELEVATED SYSTOLIC BP Last administered on 02/21/16 07:49; Admin Dose 10 MG; Start 02/20/16 at 22:00 Minoxidil 5 mg 5 mg BID PO Last administered on 02/24/16 13:10; Admin Dose 5 MG; Start 02/20/16 at 22:00 Nicardipine HCl/ Dextrose (Cardene Iv/D5W) 250 ml @ 50 mls/hr TITRATE IV Last administered on 02/24/16 06:36; Admin Dose 50 MLS/HR; Start 02/21/16 at 12:30 Metoprolol Tartrate 5 mg 5 mg Q4H PRN IV HR>55 Hold SBP<100; Start 02/21/16 at 11:30 Propofol 100 ml @ 3.189 mls/ hr Q12H IV Last administered on 02/24/16 16:42 ; Admin Dose 12.756 MLS/HR; Start 02/21/16 at 16:30 Fentanyl/Dextrose (D5W) 100 ml @ 0 mls/hr TITRATE IV Last administered on 02/23at 07:38; Admin Dose 100 MLS/HR; Start 02/21/16 at 16:30 IV Flush (NS 10 ml) 10 ml PRN PRN IV IV PROTOCOL; Start 02/21/16 at 18:30 Ferrous Sulfate (Feosol Liquid Cup) 300 mg BID GTB Last administered on 09:24; Admin Dose 300 MG; Start 02/22/16 at 10:00 Metoprolol Tartrate 50 mg 50 mg Q8 PO Last administered on 02/24/16 13:11; Admin Dose 50 MG; Start 02/22/16 at 14:00 Vancomycin HCl/ Sodium Chloride (Vancocin/NS) 150 ml @ 75 mls/hr Q12H IVPB Last administered on 02/24/16at 10:57; Admin Dose 75 MLS/HR; Start 02/22/16 at 23:00 Heparin Sodium (Porcine) (Heparin (5000 Units/0.5 ml)) 5,000 unit BID SC Last administered on 02/24/16 09:26; Admin Dose 5,000 UNIT; Start 02/22/16 at 21:00 Lorazepam (Ativan) 1 mg Q1H PRN IV ANXIETY Last administered on 02/24/16 12: 49; Admin Dose 1 MG; Start 02/23/16 at 11:30 Hydralazine HCl 25 mg 25 mg Q8 PO Last administered on 02/24/16 13:11; Admin Dose 25 MG; Start 02/23/16 at 14:00 Piperacillin Sod/ Tazobactam Sod 50 ml @ 100 mls/hr Q6 IVPB Last administered on 02/24/16 13:10; Admin Dose 100 MLS/HR; Start 02/23/16 at 18:00 Fluconazole/ Sodium Chloride (Diflucan 100 Mg/ NS (Pmx)) 50 ml @ 50 mls/hr Q24H IVPB Last administered on 02/24/16at 14:45; Admin Dose 50 MLS/HR; Start at 14:00 Insulin Aspart (Novolog Insulin Pen) NOVOLOG *MILD* ALGORI... Q4 SC Last administered on 02/24/16 16:41; Admin Dose 1 UNIT; Start 02/24/16 at 01:00 Miscellaneous Information 1 ea NOTE XX ; Start 02/23/16 at 23:15 Glucose (Glutose) 15 gm Q15M PRN PO DECREASED GLUCOSE; Start 02/23/16 at 23:15 Glucose (Glutose) 22.5 gm Q15M PRN PO DECREASED GLUCOSE; Start 02/23/16 at 23: 15 Dextrose (D50w Syringe) 25 ml Q15M PRN IV DECREASED GLUCOSE; Start 02/23/16 at 23:15 Dextrose (D50w Syringe) 50 ml Q15M PRN IV DECREASED GLUCOSE; Start 02/23/16 at 23:15 Glucagon (Glucagen) 1 mg Q15M PRN IM DECREASED GLUCOSE; Start 02/23/16 at 23:15 Glucose 15 gm 15 gm Q15M PRN BUCCAL DECREASED GLUCOSE; Start 02/23/16 at 23:15 Levetiracetam/ Sodium Chloride (Keppra Iv/NS) 110 ml @ 440 mls/hr BID IVPB Last administered on 02/24/16at 09:24; Admin Dose 440 MLS/HR; Start 02/24/16 at 01:00 Assessment/Plan Additional Assessment/Plan IMPRESSION 1. Hypertensive Emergency 2. Type B Aortic Dissection 3. Encephalopathy, possibly secondary to antihypertensive medications. Questionable new onset seizures rule out CVA 4. Aspiration pneumonia with hypoxemic respiratory failure. 5. FARRUKH RECS: 1. Vent support with plans to wean tomorrow 2. Continue BP control 3. Sedation Holiday daily 4. Replete K 5. Am CXR/ABG 35 min cc time APRIL NAM MD Feb 24, 2016 17:10
[2016-02-24] MEDS ORDERED: POTASSIUM CHLORIDE 20 MEQ POWDER FOR ORAL SOLN NGT ONE (17:30)
--- NOTE | 2016-02-24 22:41 | PN ---
DATE: 02/24/2016 INFECTIOUS DISEASE PROGRESS NOTE SUBJECTIVE: Patient looks comfortable. He is off Cardene drip. No fevers overnight. He is unresp onsive. He is comfortable, off Diprivan drip. VITAL SIGNS: Temperature 98.9, pulse 77, respirations 20, blood pressure 124/65, saturation 100 on vent support. No CBC this morning. BUN 25, creatinine 1.98. MICROBIOLOGY: Blood culture repeated negative. Sputum culture growing E. coli, Angelina albicans. DIAGNOSTICS: CT of the brain yesterday revealed no acute intracranial pathology. Chest x-ray this morning revealed interval decrease in patchy infiltrates. INDWELLINGS: Endotracheal tube, NG tube, Smalls, PICC line placed on 02/21/2016. ANTIMICROBIALS: 1. Zosyn. 2. Fluconazole. 3. Vancomycin. PHYSICAL EXAMINATION: GENERAL: This is a well-developed, well-nourished, middle-aged man who is lying comfortably in bed. HEENT: Head atraumatic, normocephalic. Sclerae anicteric. Buccal mucosa dry. NECK: Supple, trachea midline. CHEST: Rise symmetrical. Breath sounds diminished to bases. HEART: S1, S2. ABDOMEN: Soft, bowel tones present. EXTREMITIES: Without cyanosis. Bilateral trace edema. ASSESSMENT: 1. Severe sepsis. 2. Acute respiratory failure. 3. Pneumonia, possibly aspiration-type. 4. Congestive heart failure exacerbation. 5. New onset of seizures. 6. Type B aortic dissection. 7. Acute renal failure. 8. Anemia. PLAN: The patient remains stable. Still with persistent leukocytosis. Urine culture is pending. We will continue to cover him with broad spectrum antibiotics. Await for neurology evaluation. Con tinue vent support per pulmonary. Follow recommendations of specialists. Dictated By: HUSAM SANFORD [employer] PARTNER for YESIKA LOPEZ/EFRAIN Conf#: [id number] DID#: [id number]
[2016-02-25] VITALS (80 sets, daily range): BP systolic 106–220; BP diastolic 57–110; PULSE 68–98; RESP 18–26
[2016-02-25] MEDS: PROPOFOL 100 ML IV SCH ×6 (00:05→20:30)
[2016-02-25] MEDS: PIPER-TAZO 2.25 GM (PMX) 50 ML IVPB SCH ×5 (00:05→23:42)
[2016-02-25] MEDS: INSULIN ASPART [NOVOLOG] 3 ML PEN SC SCH ×6 (01:00→20:59)
[2016-02-25] MEDS: ALBUTEROL HFA 8 GM INHALER INH SCH ×4 (01:04→19:31)
[2016-02-25] MEDS: IPRATROPIUM (HFA) 12.9 GM INHALER INH SCH ×4 (01:04→19:31)
--- NOTE | 2016-02-25 04:43 | RADRPT ---
PROCEDURE: XR Chest. CLINICAL INDICATION: reintubation TECHNIQUE: Single frontal chest x-ray. COMPARISON: 02/24/2016 FINDINGS: The tip of the endotracheal tube is approximately 1.7 cm above the francisco. Nasogastric tube tip is in the stomach. There is hypoinflation of the lungs. Right PICC line tip appears to be in upper to m id right atrium. Hypoinflation of the lungs accentuates the cardiomediastinal silhouette. Enlargeme nt of the cardiac silhouette is again seen. Increased densities are seen throughout the right lung which could be secondary to asymmetric pulmonary edema or pneumonia which are accentuated by the hyp oinflation of the lungs. There is mild to moderate gastric distension with air despite the presence of the nasogastric tube. ECG leads are projected over the chest. IMPRESSION: Endotracheal tube tip approximate 1.7 cm above the francisco. Nasogastric tube tip in stomach. Hypoinf lation of the lungs. Right PICC line tip appears to be in upper to mid right atrium. Enlargement of the cardiac silhouette is again seen. Increased densities are seen throughout the right lung which could be secondary to asymmetric pulmonary edema or pneumonia which are accentuated by the hypoinfla tion of the lungs. There is mild to moderate gastric distension with air despite the presence of th e nasogastric tube. RPTAT: HJES .Joel Thapa MD, Date Time Electronically viewed and signed by .Joel Thapa MD, on 02/25/2016 04:42 .S/
[2016-02-25 04:45] LABS: BASOPHIL # 0.2 10^3/ul (0.0-0.1); BASOPHILS % 1.3 % (0.0-2.0); EOSINOPHILS # 0.5 10^3/ul (0.0-0.5); EOSINOPHILS % 3.6 % (0.0-7.0); LYMPHOCYTES # 1.1 10^3/ul (0.8-2.9); LYMPHOCYTES % 7.3 % (15.0-51.0); MEAN CORPUSCULAR HEMOGLOBIN 26.5 pg (29.0-33.0); MEAN CORPUSCULAR HGB CONC 33.4 g/dl (32.0-37.0); MEAN CORPUSCULAR VOLUME 79.2 fl (82.0-101.0); MONOCYTE # 1.5 10^3/ul (0.3-0.9); MONOCYTES % 10.2 % (0.0-11.0); NEUTROPHIL # 11.3 10^3/ul (1.6-7.5); NEUTROPHILS % 77.6 % (39.0-77.0); PLATELET COUNT 229 10^3/UL (140-440); RED BLOOD COUNT 3.41 10^6/ul (4.70-6.10); RED CELL DISTRIBUTION WIDTH 18.3 % (11.5-14.5); UNCORRECTED WBC 14.6 10^3/ul (4.8-10.8); WHITE BLOOD COUNT 14.6 10^3/ul (4.8-10.8)
[2016-02-25 04:53] LABS: POTASSIUM 3.2 mmol/L (3.5-5.1)
[2016-02-25] MEDS: FENTAnyl 1,000 MCG in DEXTROSE 5% 80 ML IV SCH ×3 (04:54→20:37)
[2016-02-25 04:56] LABS: CALCIUM 7.9 mg/dl (8.4-10.2); CREATININE 1.66 mg/dl (0.61-1.24)
[2016-02-25] MEDS: PANTOPRAZOLE 40 MG INJ IV SCH (05:05)
[2016-02-25] MEDS: METOPROLOL 50 MG TAB PO SCH ×3 (05:05→22:08)
[2016-02-25 05:33] LABS: CONDITION 1; LH ANALYZER COMMENTS 1; SUSPECT 1
--- NOTE | 2016-02-25 05:51 | EN ---
Date/Time of Note Date/Time of Note DATE: 02/25/16 TIME: 05:49 ER Progress Note I was called to the intensive care unit for intubation. The patient is currently being treated for hypertensive emergency, aneurysm versus dissection and respiratory failure. The patient self extubated. Upon arrival the patient is in respiratory distress with intercostal retractions , altered mental status, the patient is obtunded. He is not protecting his airway and warrants intubation. Intubation Note: Indication: Airway protection Consent: This was an emergent situation, implied consent was observed RSI Medications: Etomidate 2 mg, 150 of succinylcholine Tube size: 7.5 Secured at: 22 at the lip Procedure: Endotracheal intubation was performed. The patient was preoxygenated with supplemental oxygen, the room was set up with emergent airway equipment including [id number], suction, adjunct airways. Direct visualization of the cords was performed with direct laryngoscopy using a 4.0 Mac blade, insertion of the endotracheal tube through the cords was visualized by the alemite operator. Bilateral breath sounds were auscultated, color change was observed. The tube was then secured in a postintubation chest x-ray was ordered. The patient tolerated the procedure well there were no complications. Chest x-ray: I reviewed and interpreted a 1 view of the chest Mediastinum: No enlargement Cardiac silhouette: cardiomegaly Airspace: Interstitial process bilaterally Bones: No evidence of fracture Endotracheal tube above the francisco Diagnostic impression: Acute respiratory failure SHAJI TRAN MD Feb 25, 2016 05:51
[2016-02-25] MEDS ORDERED: POTASSIUM CHLORIDE (SR) 20 MEQ TAB PO STA (06:14)
[2016-02-25] MEDS ORDERED: POTASSIUM CHLORIDE 20 MEQ POWDER FOR ORAL SOLN PO ONE (06:30)
[2016-02-25 07:01] LABS: AADO2 Arterial 330.6 mmHg (7.0-24.0); Arterial COHb 0.7 % (0.0-3.0); Arterial HCO3 23.3 mmol/L (22.0-26.0); Arterial MetHb 0.3 % (0.0-1.5); Arterial Total Hemglobin 13.7 g/dl (12.0-18.0); MODE VENT - AC
[2016-02-25] MEDS: AMLODIPINE 5 MG TAB PO SCH ×2 (08:37→20:59)
[2016-02-25] MEDS: FERROUS SULFATE 60 MG/ML 5ML CUP GTB SCH ×2 (08:37→20:58)
[2016-02-25] MEDS: LEVETIRACETAM IV 1,000 MG in SOD CHLORIDE 0.9% 100 ML IVPB SCH ×2 (08:38→20:58)
[2016-02-25] MEDS: MINOXIDIL 2.5 MG TAB PO SCH ×2 (08:38→20:58)
[2016-02-25] MEDS: HEPARIN 5,000 UNIT/0.5 ML SYG SC SCH ×2 (08:43→21:00)
--- NOTE | 2016-02-25 09:44 | PN ---
Date/Time of Note Date/Time of Note DATE: 02/25/16 TIME: 09:41 Assessment/Plan Lines/Catheters IV Catheter Type (from Nrsg): PICC Line Smalls in Place (from Nrsg): Yes Assessment/Plan Chief Complaint/Hosp Course IMPRESSION: Type B aortic dissection. The patient's blood pressure more controlled RECOMMENDATIONS: At this time, we would continue blood pressure management, monitor vital signs and laboratory values in an intensive care unit setting. Vent support per pul medicine No plan for surgery. Abx I discussed with the patient and Dr. Lang and staff Problems: Subjective 24 Hr Interval Summary Constitutional: improved Pain Control: mild Exam/Review of Systems Vital Signs Vitals Vital Signs Date Time Temp Pulse Resp B/P Pulse Ox O2 Delivery O2 Flow Rate FiO2 02/25/16 08:00 75 02/25/16 05:45 21 134/68 100 Mechanical Ventilator 02/25/16 04:30 100 02/25/16 04:00 99.4 02/21/16 16:30 15.0 Intake and Output 02/24/16 02/24/16 02/25/16 15:00 23:00 07:00 Intake Total 1280 ml 888.780 ml 943.426 ml Output Total 705 ml 1000 ml 700 ml Balance 575 ml -111.220 ml 243.426 ml Exam ENMT: mucosa pink and moist, nl external ears & nose, nl lips & teeth, nl nasal mucosa & septum Neck: non-tender, supple Respiratory: diminished breath sounds Cardiovascular: nl pulses, regular rate and rhythm Gastrointestinal: nl liver, spleen, non-tender, soft Results Result Diagram: 02/25/16 0340 02/25/16 034 KAYLYN RADFORD MD Feb 25, 2016 09:44
--- NOTE | 2016-02-25 09:47 | CONS ---
Date/Time of Note Date/Time of Note DATE: 02/25/16 TIME: 09:44 Assessment/Plan Assessment/Plan Chief Complaint/Hosp Course Imp: 1.HTN emergency-NL EF by echo this admit-under reasonable control on PO medications only. Off all drips 2.Aortic dissection-type B 3.abnl ecg-lateral TWI-negative troponin x 3 since admit 4.anxiety 5.ARF 6. Pericardial effusion by echo-small with NL EF Recc: -Tele in ICU -Follow volume status closely -serial ecg's -Continue PO BB/CCB/minoxindil/hydralazine and follow bp closely -ongoing surgical follow-up -sedation vacation and f/u MS closely Problems: Consultation Date/Type/Reason Admit Date/Time Feb 18, 2016 at 09:14 Initial Consult Date 02/19/2016 Type of Consultation: Cardiology Reason for Consultation HTN/aortic dissection Referring Provider: TIFFANIE HEARD MD Exam/Review of Systems Vital Signs Vitals Vital Signs Date Time Temp Pulse Resp B/P Pulse Ox O2 Delivery O2 Flow Rate FiO2 02/25/16 08:00 75 02/25/16 05:45 21 134/68 100 Mechanical Ventilator 02/25/16 04:30 100 02/25/16 04:00 99.4 02/21/16 16:30 15.0 Intake and Output 02/24/16 02/24/16 02/25/16 15:00 23:00 07:00 Intake Total 1280 ml 888.780 ml 943.426 ml Output Total 705 ml 1000 ml 700 ml Balance 575 ml -111.220 ml 243.426 ml Exam Review of Systems: CONSTITUTIONAL: No fevers, chills. PULMONARY: intubated CARDIOVASCULAR: No chest pain/palpitations GASTROINTESTINAL: No nausea/vomiting. GENITOURINARY: No hematuria/dysuria. MUSCULOSKELETAL: No myagias/arthalgias. PSYCHIATRIC: The patient denies depression. NEUROLOGIC: sedated Constitutional: other (sedated) Head: normocephalic ENMT: intubated Neck: jvd (9 cm water), supple Respiratory: other (upper airway rhocherous sounds) Cardiovascular: regular rate and rhythm Gastrointestinal: soft Musculoskeletal: muscle tone (normal) Extremities: edema (none) Neurological: other (No focal deficits) Results Result Diagram: 02/25/16 0340 02/25/16 0340 Results 24 hrs Laboratory Tests Test 02/24/16 10:45 02/24/16 12:15 02/24/16 13:07 02/24/16 16:38 Vancomycin Level Trough 16.5 Anion Gap 11 Basophils # 0.4 H Basophils % 2.6 H Blood Morphology Comment Blood Urea Nitrogen 27 H Calcium Level 8.1 L Carbon Dioxide Level 23 Chloride Level 105 Creatinine 2.00 H Eosinophils # 0.6 H Eosinophils % 3.7 Glucose Level 133 # Hematocrit 28.1 L Hemoglobin 9.2 L Lymphocytes # 1.0 Lymphocytes % 5.8 L Mean Corpuscular Hemoglobin 25.8 L Mean Corpuscular Hemoglobin Concent 32.7 Mean Corpuscular Volume 78.9 L Mean Platelet Volume 8.4 Monocytes # 1.2 H Monocytes % 6.9 Neutrophils # 13.6 H Neutrophils % 81.0 H Nucleated Red Blood Cells # 0.0 Nucleated Red Blood Cells % 0.0 Platelet Count 215 Potassium Level 3.1 L Red Blood Count 3.57 L Red Cell Distribution Width 17.9 H Sodium Level 136 White Blood Count 16.7 H Bedside Glucose 134 152 Test 02/24/16 21:39 02/25/16 01:32 02/25/16 03:40 02/25/16 05:00 Bedside Glucose 122 121 Anion Gap 11 Basophils # 0.2 H Basophils % 1.3 Blood Morphology Comment Blood Urea Nitrogen 26 H Calcium Level 7.9 L Carbon Dioxide Level 23 Chloride Level 106 Creatinine 1.66 H Eosinophils # 0.5 Eosinophils % 3.6 Glucose Level 156 Hematocrit 27.0 L Hemoglobin 9.0 L Lactic Acid Level 0.7 Lymphocytes # 1.1 Lymphocytes % 7.3 L Mean Corpuscular Hemoglobin 26.5 L Mean Corpuscular Hemoglobin Concent 33.4 Mean Corpuscular Volume 79.2 L Mean Platelet Volume 9.0 Monocytes # 1.5 H Monocytes % 10.2 Neutrophils # 11.3 H Neutrophils % 77.6 H Nucleated Red Blood Cells # 0.0 Nucleated Red Blood Cells % 0.0 Platelet Count 229 Potassium Level 3.2 L Red Blood Count 3.41 L Red Cell Distribution Width 18.3 H Sodium Level 137 White Blood Count 14.6 H Arterial Blood HCO3 23.3 Arterial Blood Base Excess -3.0 Arterial Blood Oxygen Saturation 98.0 Jovanny Test N/A Arterial Blood Gas Puncture Site Right Brachial Arterial Blood Carboxyhemoglobin 0.7 Arterial Blood Date Drawn 02/25/2016 5:00:00 AM Arterial Blood Methemoglobin 0.3 Arterial Blood pCO2 (Temp correct) 46.1 H Arterial Blood pH (Temp corrected) 7.321 L Arterial Blood pO2 (Temp corrected) 118.9 H Blood Gas A-a O2 Differential 330.6 H Blood Gas Actual Respiration Rate 21 Blood Gas Low PEEP Setting 10.0 Blood Gas Modality VENT - AC Blood Gas Notified Time 02/25/2016 5:16:00 AM Blood Gas Notified Whom UP Blood Gas Respiration Rate 20.0 Blood Gas Specimen Source Blood arterial Blood Gas Temperature 37.0 Blood Gas Tidal Volume 550.0 FiO2 70.0 Oxyhemoglobin Percent 97.0 Total Hemoglobin 13.7 Test 02/25/16 05:11 02/25/16 08:46 Bedside Glucose 124 109 Medications Medications Current Medications Sodium Chloride (NS) 1,000 ml @ 50 mls/hr Q20H IV Last administered on at 18:00; Admin Dose 50 MLS/HR; Start 02/18/16 at 09:13 Ondansetron HCl (Zofran Inj) 4 mg Q6H PRN IV NAUSEA AND/OR VOMITING; Start 02/18/16 at 09:30 Acetaminophen (Tylenol Supp) 650 mg Q4H PRN AL PAIN LEVEL 1-3 OR FEVER Last administered on 02/24/16at 14:32; Admin Dose 650 MG; Start 02/18/16 at 09:30 Morphine Sulfate (morphine) 2 mg Q4H PRN IV PAIN LEVEL 7-10 Last administered on 02/21/16at 09:35; Admin Dose 2 MG; Start 02/18/16 at 09:30 Bisacodyl (Dulcolax Supp) 10 mg DAILY PRN AL CONSTIPATION; Start 02/18/16 at 09 :30 Pantoprazole 40 mg 40 mg DAILY@06 IV Last administered on 02/25/16at 05:05; Admin Dose 40 MG; Start 02/19/16 at 06:00 Esmolol HCl/ Sodium Chloride 250 ml @ 28.8 mls/hr TITRATE IV Last administered on 02/22/16at 16:19; Admin Dose 57.6 MLS/HR; Start 02/18/16 at 09:30 Diltiazem HCl (Cardizem-D5W 125 Mg/125 ml Drip) 125 ml @ 5 mls/hr TITRATE IV Last administered on 02/21/16at 12:56; Admin Dose 15 MLS/HR; Start 02/19/16 at 14 :00 Amlodipine Besylate (Norvasc) 5 mg BID PO Last administered on 02/25/16at 08:37 ; Admin Dose 5 MG; Start 02/20/16 at 21:00 Hydralazine HCl (Apresoline) 10 mg Q6H PRN IV ELEVATED SYSTOLIC BP Last administered on 02/21/16 07:49; Admin Dose 10 MG; Start 02/20/16 at 22:00 Minoxidil 5 mg 5 mg BID PO Last administered on 02/25/16at 08:38; Admin Dose 5 MG; Start 02/20/16 at 22:00 Nicardipine HCl/ Dextrose (Cardene Iv/D5W) 250 ml @ 50 mls/hr TITRATE IV Last administered on 02/24/16 06:36; Admin Dose 50 MLS/HR; Start 02/21/16 at 12:30 Metoprolol Tartrate 5 mg 5 mg Q4H PRN IV HR>55 Hold SBP<100; Start 02/21/16 at 11:30 Propofol 100 ml @ 3.189 mls/ hr Q12H IV Last administered on 02/25/16 08:33 ; Admin Dose 25.512 MLS/HR; Start 02/21/16 at 16:30 Fentanyl/Dextrose (D5W) 100 ml @ 0 mls/hr TITRATE IV Last administered on 02/24at 04:54; Admin Dose 10 MLS/HR; Start 02/21/16 at 16:30 IV Flush (NS 10 ml) 10 ml PRN PRN IV IV PROTOCOL; Start 02/21/16 at 18:30 Ferrous Sulfate (Feosol Liquid Cup) 300 mg BID GTB Last administered on at 08:37; Admin Dose 300 MG; Start 02/22/16 at 10:00 Metoprolol Tartrate 50 mg 50 mg Q8 PO Last administered on 02/25/16at 05:05; Admin Dose 50 MG; Start 02/22/16 at 14:00 Vancomycin HCl/ Sodium Chloride (Vancocin/NS) 150 ml @ 75 mls/hr Q12H IVPB Last administered on 02/24/16at 22:44; Admin Dose 75 MLS/HR; Start 02/22/16 at 23:00 Heparin Sodium (Porcine) (Heparin (5000 Units/0.5 ml)) 5,000 unit BID SC Last administered on 02/25/16at 08:43; Admin Dose 5,000 UNIT; Start 02/22/16 at 21:00 Lorazepam (Ativan) 1 mg Q1H PRN IV ANXIETY Last administered on 02/24/16at 12: 49; Admin Dose 1 MG; Start 02/23/16 at 11:30 Hydralazine HCl 25 mg 25 mg Q8 PO Last administered on 02/25/16at 05:04; Admin Dose 25 MG; Start 02/23/16 at 14:00 Piperacillin Sod/ Tazobactam Sod 50 ml @ 100 mls/hr Q6 IVPB Last administered on 02/25/16at 05:05; Admin Dose 100 MLS/HR; Start 02/23/16 at 18:00 Fluconazole/ Sodium Chloride (Diflucan 100 Mg/ NS (Pmx)) 50 ml @ 50 mls/hr Q24H IVPB Last administered on 02/24/16at 14:45; Admin Dose 50 MLS/HR; Start at 14:00 Insulin Aspart (Novolog Insulin Pen) NOVOLOG *MILD* ALGORI... Q4 SC Last administered on 02/24/16at 16:41; Admin Dose 1 UNIT; Start 02/24/16 at 01:00 Miscellaneous Information 1 ea NOTE XX ; Start 02/23/16 at 23:15 Glucose (Glutose) 15 gm Q15M PRN PO DECREASED GLUCOSE; Start 02/23/16 at 23:15 Glucose (Glutose) 22.5 gm Q15M PRN PO DECREASED GLUCOSE; Start 02/23/16 at 23: 15 Dextrose (D50w Syringe) 25 ml Q15M PRN IV DECREASED GLUCOSE; Start 02/23/16 at 23:15 Dextrose (D50w Syringe) 50 ml Q15M PRN IV DECREASED GLUCOSE; Start 02/23/16 at 23:15 Glucagon (Glucagen) 1 mg Q15M PRN IM DECREASED GLUCOSE; Start 02/23/16 at 23:15 Glucose 15 gm 15 gm Q15M PRN BUCCAL DECREASED GLUCOSE; Start 02/23/16 at 23:15 Levetiracetam/ Sodium Chloride (Keppra Iv/NS) 110 ml @ 440 mls/hr BID IVPB Last administered on 02/25/16at 08:38; Admin Dose 440 MLS/HR; Start 02/24/16 at 01:00 JUNAID PAZ Feb 25, 2016 09:47
[2016-02-25] MEDS: VANCOMYCIN 750 MG in SOD CHLORIDE 0.9% 150 ML IVPB SCH ×2 (11:09→22:54)
--- NOTE | 2016-02-25 11:13 | PN ---
Date/Time of Note Date/Time of Note DATE: 02/25/16 TIME: 11:10 Assessment/Plan VTE Prophylaxis VTE Prophylaxis Intervention: heparin Lines/Catheters IV Catheter Type (from Nrs): PICC Line Central line still needed: Yes Urinary Cath still in place: Yes Reason Cath still needed: other (indicate) (monitor I&O) Assessment/Plan Chief Complaint/Hosp Course Assessment and plan 1. 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 Vascular surgeon is following. . Follow up with cardiology recs. Blood pressure in better control . No plan for surgery at this time per surgeon 2. Hypertensive urgency. With a rate control. Continue on oral antihypertensives 3. Iron deficiency anemia. We'll continue on iron supplement 4. Leukocytosis.. Patient noted with staph species in blood. ID consult following. cont on abx 5. Hypokalemia. We will monitor and replete as needed 6. Acute kidney injury. Likely secondary to hemodynamics. trashman following. cont to monitor renal panel 7. Respiratory distress likely secondary to HCAP. Intubated now. cont abx and mechanical ventilation. CXR better today. vent liberation per pulmonary 8. Bacteremia with staph species. cont on abx per ID 9. Left cephalic vein thrombus. Is superficial vein. cont elevation and warm compress as needed. GERD prophylaxis: PPI DVT prophylaxis: SCDs/heparin Disposition and plan: Blood pressure with better control. Continue on oral antihypertensive medications. Assess for ability for vent liberation Discussed plan of care with Dr. Raymundo Critical care time: 30 minutes Problems: Subjective 24 Hr Interval Summary Free Text/Dictation Off antihypertensives drip at this time. Still intubated. Exam/Review of Systems Vital Signs Vitals Vital Signs Date Time Temp Pulse Resp B/P Pulse Ox O2 Delivery O2 Flow Rate FiO2 02/25/16 09:30 75 20 122/71 100 Mechanical Ventilator 02/25/16 09:15 50 02/25/16 08:00 99.0 02/21/16 16:30 15.0 Intake and Output 02/24/16 02/24/16 02/25/16 15:00 23:00 07:00 Intake Total 1280 ml 888.780 ml 1058.938 ml Output Total 705 ml 1000 ml 800 ml Balance 575 ml -111.220 ml 258.938 ml Exam General: intubated and sedated Eyes: pupils equal round, Anicteric sclera Neck: Supple nontender, no JVD Cardiac: S1, S2 auscultated, regular rhythm and rate Pulmonary: no obvious wheezing or rales GI: Abdomen soft nontender nondistended, bowel sounds active Extremities: No edema bilateral lower extremities Skin: Clean dry and intact Neurologic: Alert to person place and time and situation Results Result Diagram: 02/25/16 0340 02/25/16 0340 Results 24 hrs Laboratory Tests Test 02/24/16 12:15 02/24/16 13:07 02/24/16 16:38 02/24/16 21:39 Anion Gap 11 Basophils # 0.4 H Basophils % 2.6 H Blood Morphology Comment Blood Urea Nitrogen 27 H Calcium Level 8.1 L Carbon Dioxide Level 23 Chloride Level 105 Creatinine 2.00 H Eosinophils # 0.6 H Eosinophils % 3.7 Glucose Level 133 # Hematocrit 28.1 L Hemoglobin 9.2 L Lymphocytes # 1.0 Lymphocytes % 5.8 L Mean Corpuscular Hemoglobin 25.8 L Mean Corpuscular Hemoglobin Concent 32.7 Mean Corpuscular Volume 78.9 L Mean Platelet Volume 8.4 Monocytes # 1.2 H Monocytes % 6.9 Neutrophils # 13.6 H Neutrophils % 81.0 H Nucleated Red Blood Cells # 0.0 Nucleated Red Blood Cells % 0.0 Platelet Count 215 Potassium Level 3.1 L Red Blood Count 3.57 L Red Cell Distribution Width 17.9 H Sodium Level 136 White Blood Count 16.7 H Bedside Glucose 134 152 122 Test 02/25/16 01:32 02/25/16 03:40 02/25/16 05:00 02/25/16 05:11 Bedside Glucose 121 124 Anion Gap 11 Basophils # 0.2 H Basophils % 1.3 Blood Morphology Comment Blood Urea Nitrogen 26 H Calcium Level 7.9 L Carbon Dioxide Level 23 Chloride Level 106 Creatinine 1.66 H Eosinophils # 0.5 Eosinophils % 3.6 Glucose Level 156 Hematocrit 27.0 L Hemoglobin 9.0 L Lactic Acid Level 0.7 Lymphocytes # 1.1 Lymphocytes % 7.3 L Mean Corpuscular Hemoglobin 26.5 L Mean Corpuscular Hemoglobin Concent 33.4 Mean Corpuscular Volume 79.2 L Mean Platelet Volume 9.0 Monocytes # 1.5 H Monocytes % 10.2 Neutrophils # 11.3 H Neutrophils % 77.6 H Nucleated Red Blood Cells # 0.0 Nucleated Red Blood Cells % 0.0 Platelet Count 229 Potassium Level 3.2 L Red Blood Count 3.41 L Red Cell Distribution Width 18.3 H Sodium Level 137 White Blood Count 14.6 H Arterial Blood HCO3 23.3 Arterial Blood Base Excess -3.0 Arterial Blood Oxygen Saturation 98.0 Jovanny Test N/A Arterial Blood Gas Puncture Site Right Brachial Arterial Blood Carboxyhemoglobin 0.7 Arterial Blood Date Drawn 02/25/2016 5:00:00 AM Arterial Blood Methemoglobin 0.3 Arterial Blood pCO2 (Temp correct) 46.1 H Arterial Blood pH (Temp corrected) 7.321 L Arterial Blood pO2 (Temp corrected) 118.9 H Blood Gas A-a O2 Differential 330.6 H Blood Gas Actual Respiration Rate 21 Blood Gas Low PEEP Setting 10.0 Blood Gas Modality VENT - AC Blood Gas Notified Time 02/25/2016 5:16:00 AM Blood Gas Notified Whom UP Blood Gas Respiration Rate 20.0 Blood Gas Specimen Source Blood arterial Blood Gas Temperature 37.0 Blood Gas Tidal Volume 550.0 FiO2 70.0 Oxyhemoglobin Percent 97.0 Total Hemoglobin 13.7 Test 02/25/16 08:46 Bedside Glucose 109 Medications Medications Current Medications Sodium Chloride (NS) 1,000 ml @ 50 mls/hr Q20H IV Last administered on at 18:00; Admin Dose 50 MLS/HR; Start 02/18/16 at 09:13 Ondansetron HCl (Zofran Inj) 4 mg Q6H PRN IV NAUSEA AND/OR VOMITING; Start 02/18/16 at 09:30 Acetaminophen (Tylenol Supp) [address] PAIN LEVEL 1-3 OR FEVER Last administered on 02/24/16at 14:32; Admin Dose 650 MG; Start 02/18/16 at 09:30 Morphine Sulfate (morphine) 2 mg Q4H PRN IV PAIN LEVEL 7-10 Last administered on 02/21/16at 09:35; Admin Dose 2 MG; Start 02/18/16 at 09:30 Bisacodyl (Dulcolax Supp) [address] CONSTIPATION; Start 02/18/16 at 09 :30 Pantoprazole 40 mg 40 mg DAILY@06 IV Last administered on 02/25/16at 05:05; Admin Dose 40 MG; Start 02/19/16 at 06:00 Esmolol HCl/ Sodium Chloride 250 ml @ 28.8 mls/hr TITRATE IV Last administered on 02/22/16 16:19; Admin Dose 57.6 MLS/HR; Start 02/18/16 at 09:30 Diltiazem HCl (Cardizem-D5W 125 Mg/125 ml Drip) 125 ml @ 5 mls/hr TITRATE IV Last administered on 02/21/16 12:56; Admin Dose 15 MLS/HR; Start 02/19/16 at 14 :00 Amlodipine Besylate (Norvasc) 5 mg BID PO Last administered on 02/25/16 08:37 ; Admin Dose 5 MG; Start 02/20/16 at 21:00 Hydralazine HCl (Apresoline) 10 mg Q6H PRN IV ELEVATED SYSTOLIC BP Last administered on 02/21/16 07:49; Admin Dose 10 MG; Start 02/20/16 at 22:00 Minoxidil 5 mg 5 mg BID PO Last administered on 02/25/16 08:38; Admin Dose 5 MG; Start 02/20/16 at 22:00 Nicardipine HCl/ Dextrose (Cardene Iv/D5W) 250 ml @ 50 mls/hr TITRATE IV Last administered on 02/24/16 06:36; Admin Dose 50 MLS/HR; Start 02/21/16 at 12:30 Metoprolol Tartrate 5 mg 5 mg Q4H PRN IV HR>55 Hold SBP<100; Start 02/21/16 at 11:30 Propofol 100 ml @ 3.189 mls/ hr Q12H IV Last administered on 02/25/16 08:33 ; Admin Dose 25.512 MLS/HR; Start 02/21/16 at 16:30 Fentanyl/Dextrose (D5W) 100 ml @ 0 mls/hr TITRATE IV Last administered on 02/24 04:54; Admin Dose 10 MLS/HR; Start 02/21/16 at 16:30 IV Flush (NS 10 ml) 10 ml PRN PRN IV IV PROTOCOL; Start 02/21/16 at 18:30 Ferrous Sulfate (Feosol Liquid Cup) 300 mg BID GTB Last administered on 08:37; Admin Dose 300 MG; Start 02/22/16 at 10:00 Metoprolol Tartrate 50 mg 50 mg Q8 PO Last administered on 02/25/16at 05:05; Admin Dose 50 MG; Start 02/22/16 at 14:00 Vancomycin HCl/ Sodium Chloride (Vancocin/NS) 150 ml @ 75 mls/hr Q12H IVPB Last administered on 02/25/16at 11:09; Admin Dose 75 MLS/HR; Start 02/22/16 at 23:00 Heparin Sodium (Porcine) (Heparin (5000 Units/0.5 ml)) 5,000 unit BID SC Last administered on 02/25/16at 08:43; Admin Dose 5,000 UNIT; Start 02/22/16 at 21:00 Lorazepam (Ativan) 1 mg Q1H PRN IV ANXIETY Last administered on 02/24/16at 12: 49; Admin Dose 1 MG; Start 02/23/16 at 11:30 Hydralazine HCl 25 mg 25 mg Q8 PO Last administered on 02/25/16at 05:04; Admin Dose 25 MG; Start 02/23/16 at 14:00 Piperacillin Sod/ Tazobactam Sod 50 ml @ 100 mls/hr Q6 IVPB Last administered on 02/25/16at 05:05; Admin Dose 100 MLS/HR; Start 02/23/16 at 18:00 Fluconazole/ Sodium Chloride (Diflucan 100 Mg/ NS (Pmx)) 50 ml @ 50 mls/hr Q24H IVPB Last administered on 02/24/16at 14:45; Admin Dose 50 MLS/HR; Start at 14:00 Insulin Aspart (Novolog Insulin Pen) NOVOLOG *MILD* ALGORI... Q4 SC Last administered on 02/24/16at 16:41; Admin Dose 1 UNIT; Start 02/24/16 at 01:00 Miscellaneous Information 1 ea NOTE XX ; Start 02/23/16 at 23:15 Glucose (Glutose) 15 gm Q15M PRN PO DECREASED GLUCOSE; Start 02/23/16 at 23:15 Glucose (Glutose) 22.5 gm Q15M PRN PO DECREASED GLUCOSE; Start 02/23/16 at 23: 15 Dextrose (D50w Syringe) 25 ml Q15M PRN IV DECREASED GLUCOSE; Start 12/9/16 at 23:15 Dextrose (D50w Syringe) 50 ml Q15M PRN IV DECREASED GLUCOSE; Start 02/23/16 at 23:15 Glucagon (Glucagen) 1 mg Q15M PRN IM DECREASED GLUCOSE; Start 02/23/16 at 23:15 Glucose 15 gm 15 gm Q15M PRN BUCCAL DECREASED GLUCOSE; Start 02/23/16 at 23:15 Levetiracetam/ Sodium Chloride (Keppra Iv/NS) 110 ml @ 440 mls/hr BID IVPB Last administered on 02/25/16at 08:38; Admin Dose 440 MLS/HR; Start 02/24/16 at 01:00 REJI WADE Feb 25, 2016 11:13
[2016-02-25] MEDS ORDERED: POTASSIUM CHLORIDE 20 MEQ in SOD CHLORIDE 0.9% 100 ML IVPB ONE (11:30)
--- NOTE | 2016-02-25 14:16 | CONS ---
Date/Time of Note Date/Time of Note DATE: 02/25/16 TIME: 14:13 Consult Date/Type/Reason Admit Date/Time Feb 18, 2016 at 09:14 Type of Consultation: PULM Ordering Provider: TIFFANIE HEARD MD Subjective s/p self extubation early this morning--> went into resp distress requiring reintubation. Objective Vital Signs Date Time Temp Pulse Resp B/P Pulse Ox O2 Delivery O2 Flow Rate FiO2 02/25/16 12:00 76 02/25/16 12:00 98.5 20 120/66 100 Mechanical Ventilator 02/25/16 09:15 50 02/21/16 16:30 15.0 Intake and Output 02/24/16 02/24/16 02/25/16 15:00 23:00 07:00 Intake Total 1280 ml 888.780 ml 1058.938 ml Output Total 705 ml 1000 ml 800 ml Balance 575 ml -111.220 ml 258.938 ml HEENT: Neck supple; no JVD; no LAD; + ET tube CVS: RRR, S1 and S2 CHEST: Bibasilar rales ABD: Soft, NT, + BS EXT: No c/c/ tr edema Results/Medications Result Diagram: 02/25/16 0340 02/25/16 0340 Results 24 hrs Laboratory Tests Test 02/24/16 16:38 02/24/16 21:39 02/25/16 01:32 02/25/16 03:40 Bedside Glucose 152 122 121 Anion Gap 11 Basophils # 0.2 H Basophils % 1.3 Blood Morphology Comment Blood Urea Nitrogen 26 H Calcium Level 7.9 L Carbon Dioxide Level 23 Chloride Level 106 Creatinine 1.66 H Eosinophils # 0.5 Eosinophils % 3.6 Glucose Level 156 Hematocrit 27.0 L Hemoglobin 9.0 L Lactic Acid Level 0.7 Lymphocytes # 1.1 Lymphocytes % 7.3 L Mean Corpuscular Hemoglobin 26.5 L Mean Corpuscular Hemoglobin Concent 33.4 Mean Corpuscular Volume 79.2 L Mean Platelet Volume 9.0 Monocytes # 1.5 H Monocytes % 10.2 Neutrophils # 11.3 H Neutrophils % 77.6 H Nucleated Red Blood Cells # 0.0 Nucleated Red Blood Cells % 0.0 Platelet Count 229 Potassium Level 3.2 L Red Blood Count 3.41 L Red Cell Distribution Width 18.3 H Sodium Level 137 White Blood Count 14.6 H Test 02/25/16 05:00 02/25/16 05:11 02/25/16 08:46 02/25/16 12:05 Arterial Blood HCO3 23.3 Arterial Blood Base Excess -3.0 Arterial Blood Oxygen Saturation 98.0 Jovanny Test N/A Arterial Blood Gas Puncture Site Right Brachial Arterial Blood Carboxyhemoglobin 0.7 Arterial Blood Date Drawn 02/25/2016 5:00:00 AM Arterial Blood Methemoglobin 0.3 Arterial Blood pCO2 (Temp correct) 46.1 H Arterial Blood pH (Temp corrected) 7.321 L Arterial Blood pO2 (Temp corrected) 118.9 H Blood Gas A-a O2 Differential 330.6 H Blood Gas Actual Respiration Rate 21 Blood Gas Low PEEP Setting 10.0 Blood Gas Modality VENT - AC Blood Gas Notified Time 02/25/2016 5:16:00 AM Blood Gas Notified Whom UP Blood Gas Respiration Rate 20.0 Blood Gas Specimen Source Blood arterial Blood Gas Temperature 37.0 Blood Gas Tidal Volume 550.0 FiO2 70.0 Oxyhemoglobin Percent 97.0 Total Hemoglobin 13.7 Bedside Glucose 124 109 111 Medications Current Medications Sodium Chloride (NS) 1,000 ml @ 50 mls/hr Q20H IV Last administered on at 18:00; Admin Dose 50 MLS/HR; Start 02/18/16 at 09:13 Ondansetron HCl (Zofran Inj) 4 mg Q6H PRN IV NAUSEA AND/OR VOMITING; Start 02/18/16 at 09:30 Acetaminophen (Tylenol Supp) 650 mg Q4H PRN PA PAIN LEVEL 1-3 OR FEVER Last administered on 02/24/16at 14:32; Admin Dose 650 MG; Start 02/18/16 at 09:30 Morphine Sulfate (morphine) 2 mg Q4H PRN IV PAIN LEVEL 7-10 Last administered on 02/21/16at 09:35; Admin Dose 2 MG; Start 02/18/16 at 09:30 Bisacodyl (Dulcolax Supp) 10 mg DAILY PRN PA CONSTIPATION; Start 02/18/16 at 09 :30 Pantoprazole 40 mg 40 mg DAILY@06 IV Last administered on 02/25/16at 05:05; Admin Dose 40 MG; Start 02/19/16 at 06:00 Esmolol HCl/ Sodium Chloride 250 ml @ 28.8 mls/hr TITRATE IV Last administered on 02/22/16at 16:19; Admin Dose 57.6 MLS/HR; Start 02/18/16 at 09:30 Diltiazem HCl (Cardizem-D5W 125 Mg/125 ml Drip) 125 ml @ 5 mls/hr TITRATE IV Last administered on 02/21/16 12:56; Admin Dose 15 MLS/HR; Start 02/19/16 at 14 :00 Amlodipine Besylate (Norvasc) 5 mg BID PO Last administered on 02/25/16 08:37 ; Admin Dose 5 MG; Start 02/20/16 at 21:00 Hydralazine HCl (Apresoline) 10 mg Q6H PRN IV ELEVATED SYSTOLIC BP Last administered on 02/21/16 07:49; Admin Dose 10 MG; Start 02/20/16 at 22:00 Minoxidil 5 mg 5 mg BID PO Last administered on 02/25/16at 08:38; Admin Dose 5 MG; Start 02/20/16 at 22:00 Nicardipine HCl/ Dextrose (Cardene Iv/D5W) 250 ml @ 50 mls/hr TITRATE IV Last administered on 02/24/16at 06:36; Admin Dose 50 MLS/HR; Start 02/21/16 at 12:30 Metoprolol Tartrate 5 mg 5 mg Q4H PRN IV HR>55 Hold SBP<100; Start 02/21/16 at 11:30 Propofol 100 ml @ 3.189 mls/ hr Q12H IV Last administered on 02/25/16at 12:41 ; Admin Dose 25.512 MLS/HR; Start 02/21/16 at 16:30 Fentanyl/Dextrose (D5W) 100 ml @ 0 mls/hr TITRATE IV Last administered on 02/24at 04:54; Admin Dose 10 MLS/HR; Start 02/21/16 at 16:30 IV Flush (NS 10 ml) 10 ml PRN PRN IV IV PROTOCOL; Start 02/21/16 at 18:30 Ferrous Sulfate (Feosol Liquid Cup) 300 mg BID GTB Last administered on at 08:37; Admin Dose 300 MG; Start 02/22/16 at 10:00 Metoprolol Tartrate 50 mg 50 mg Q8 PO Last administered on 02/25/16at 05:05; Admin Dose 50 MG; Start 02/22/16 at 14:00 Vancomycin HCl/ Sodium Chloride (Vancocin/NS) 150 ml @ 75 mls/hr Q12H IVPB Last administered on 02/25/16at 11:09; Admin Dose 75 MLS/HR; Start 02/22/16 at 23:00 Heparin Sodium (Porcine) (Heparin (5000 Units/0.5 ml)) 5,000 unit BID SC Last administered on 02/25/16at 08:43; Admin Dose 5,000 UNIT; Start 02/22/16 at 21:00 Lorazepam (Ativan) 1 mg Q1H PRN IV ANXIETY Last administered on 02/24/16at 12: 49; Admin Dose 1 MG; Start 02/23/16 at 11:30 Hydralazine HCl 25 mg 25 mg Q8 PO Last administered on 02/25/16at 05:04; Admin Dose 25 MG; Start 02/23/16 at 14:00 Piperacillin Sod/ Tazobactam Sod 50 ml @ 100 mls/hr Q6 IVPB Last administered on 02/25/16at 12:01; Admin Dose 100 MLS/HR; Start 02/23/16 at 18:00 Fluconazole/ Sodium Chloride (Diflucan 100 Mg/ NS (Pmx)) 50 ml @ 50 mls/hr Q24H IVPB Last administered on 02/24/16at 14:45; Admin Dose 50 MLS/HR; Start at 14:00 Insulin Aspart (Novolog Insulin Pen) NOVOLOG *MILD* ALGORI... Q4 SC Last administered on 02/24/16at 16:41; Admin Dose 1 UNIT; Start 02/24/16 at 01:00 Miscellaneous Information 1 ea NOTE XX ; Start 02/23/16 at 23:15 Glucose (Glutose) 15 gm Q15M PRN PO DECREASED GLUCOSE; Start 02/23/16 at 23:15 Glucose (Glutose) 22.5 gm Q15M PRN PO DECREASED GLUCOSE; Start 02/23/16 at 23: 15 Dextrose (D50w Syringe) 25 ml Q15M PRN IV DECREASED GLUCOSE; Start 02/23/16 at 23:15 Dextrose (D50w Syringe) 50 ml Q15M PRN IV DECREASED GLUCOSE; Start 02/23/16 at 23:15 Glucagon (Glucagen) 1 mg Q15M PRN IM DECREASED GLUCOSE; Start 02/23/16 at 23:15 Glucose 15 gm 15 gm Q15M PRN BUCCAL DECREASED GLUCOSE; Start 02/23/16 at 23:15 Levetiracetam/ Sodium Chloride (Keppra Iv/NS) 110 ml @ 440 mls/hr BID IVPB Last administered on 02/25/16at 08:38; Admin Dose 440 MLS/HR; Start 02/24/16 at 01:00 Assessment/Plan Additional Assessment/Plan IMPRESSION 1. Hypertensive Emergency 2. Type B Aortic Dissection 3. Encephalopathy, possibly secondary to antihypertensive medications. Questionable new onset seizures rule out CVA 4. Aspiration pneumonia with hypoxemic respiratory failure. 5. FARRUKH RECS: 1. Vent support with plans to continue weaning efforts despite failed extubation this am 2. Continue BP control 3. Sedation Holiday daily 4. Replete K/mg 5. Am CXR/ABG 6. Abx per ID 35 min cc time APRIL NAM MD Feb 25, 2016 14:16
[2016-02-25] MEDS: FLUCONAZOLE 100 MG/NS (PMX) 50 ML IVPB SCH (14:51)
--- NOTE | 2016-02-25 15:39 | CONS ---
Date/Time of Note Date/Time of Note DATE: 02/25/16 TIME: 15:30 Assessment/Plan Assessment/Plan Chief Complaint/Hosp Course ID PROGRESS NOTE 24H INTERVAL SUMMARY * Low grade temps range 99.2 -100.4, WBC downtrend to 14.6 today * Orally intubated, non-communicative, chart reviewed * CXR: IMPRESSION: Endotracheal tube tip approximate 1.7 cm above the francisco. Nasogastric tube tip in stomach. Hypoinflation of the lungs. Right PICC line tip appears to be in upper to mid right atrium. Enlargement of the cardiac silhouette is again seen. Increased densities are seen throughout the right lung which could be secondary to asymmetric pulmonary edema or pneumonia which are accentuated by the hypoinflation of the lungs. There is mild to moderate gastric distension with air despite the presence of the nasogastric tube. * MICROBIOLOGY: Blood culture repeated negative. Sputum culture growing E. coli, Angelina albican * INDWELLINGS: Endotracheal tube, NG tube, Smalls, PICC line placed on 2015. * ANTIMICROBIALS: 1. Zosyn. 2. Fluconazole. 3. Vancomycin. PHYSICAL EXAMINATION: GENERAL: This is a well-developed, well-nourished, middle-aged man who is lying comfortably in bed. HEENT: ETT-> Secure to Vent NECK: Supple, trachea midline. CHEST: Rise symmetrical. Scattered coarse BS HEART: S1, S2. ABDOMEN: Soft, bowel tones present. EXTREMITIES: Without cyanosis. Bilateral trace edema. ID ASSESSMENT: 1. Severe sepsis. 2. Acute respiratory failure. 3. Pneumonia, possibly aspiration-type. 4. Congestive heart failure exacerbation. 5. New onset of seizures. 6. Type B aortic dissection. 7. Acute renal failure. 8. Anemia. CURRENT ABX: 1. Zosyn. 2. Fluconazole. 3. Vancomycin. ID RECOMMENDATIONS: CONTINUE Current ABX, f/u micro final pending . Problems: Consultation Date/Type/Reason Admit Date/Time Feb 18, 2016 at 09:14 Initial Consult Date Type of Consultation: ID Referring Provider: TIFFANIE HEARD MD Exam/Review of Systems Vital Signs Vitals Vital Signs Date Time Temp Pulse Resp B/P Pulse Ox O2 Delivery O2 Flow Rate FiO2 02/25/16 12:00 76 02/25/16 12:00 98.5 20 120/66 100 Mechanical Ventilator 02/25/16 09:15 50 02/21/16 16:30 15.0 Intake and Output 02/24/16 02/24/16 02/25/16 15:00 23:00 07:00 Intake Total 1280 ml 888.780 ml 1058.938 ml Output Total 705 ml 1000 ml 800 ml Balance 575 ml -111.220 ml 258.938 ml Results Result Diagram: 02/25/16 0340 02/25/16 0340 Results 24 hrs Laboratory Tests Test 02/24/16 16:38 02/24/16 21:39 02/25/16 01:32 02/25/16 03:40 Bedside Glucose 152 122 121 Anion Gap 11 Basophils # 0.2 H Basophils % 1.3 Blood Morphology Comment Blood Urea Nitrogen 26 H Calcium Level 7.9 L Carbon Dioxide Level 23 Chloride Level 106 Creatinine 1.66 H Eosinophils # 0.5 Eosinophils % 3.6 Glucose Level 156 Hematocrit 27.0 L Hemoglobin 9.0 L Lactic Acid Level 0.7 Lymphocytes # 1.1 Lymphocytes % 7.3 L Mean Corpuscular Hemoglobin 26.5 L Mean Corpuscular Hemoglobin Concent 33.4 Mean Corpuscular Volume 79.2 L Mean Platelet Volume 9.0 Monocytes # 1.5 H Monocytes % 10.2 Neutrophils # 11.3 H Neutrophils % 77.6 H Nucleated Red Blood Cells # 0.0 Nucleated Red Blood Cells % 0.0 Platelet Count 229 Potassium Level 3.2 L Red Blood Count 3.41 L Red Cell Distribution Width 18.3 H Sodium Level 137 White Blood Count 14.6 H Test 02/25/16 05:00 02/25/16 05:11 02/25/16 08:46 02/25/16 12:05 Arterial Blood HCO3 23.3 Arterial Blood Base Excess -3.0 Arterial Blood Oxygen Saturation 98.0 Jovanny Test N/A Arterial Blood Gas Puncture Site Right Brachial Arterial Blood Carboxyhemoglobin 0.7 Arterial Blood Date Drawn 02/25/2016 5:00:00 AM Arterial Blood Methemoglobin 0.3 Arterial Blood pCO2 (Temp correct) 46.1 H Arterial Blood pH (Temp corrected) 7.321 L Arterial Blood pO2 (Temp corrected) 118.9 H Blood Gas A-a O2 Differential 330.6 H Blood Gas Actual Respiration Rate 21 Blood Gas Low PEEP Setting 10.0 Blood Gas Modality VENT - AC Blood Gas Notified Time 02/25/2016 5:16:00 AM Blood Gas Notified Whom UP Blood Gas Respiration Rate 20.0 Blood Gas Specimen Source Blood arterial Blood Gas Temperature 37.0 Blood Gas Tidal Volume 550.0 FiO2 70.0 Oxyhemoglobin Percent 97.0 Total Hemoglobin 13.7 Bedside Glucose 124 109 111 Medications Medications Current Medications Sodium Chloride (NS) 1,000 ml @ 50 mls/hr Q20H IV Last administered on at 18:00; Admin Dose 50 MLS/HR; Start 02/18/16 at 09:13 Ondansetron HCl (Zofran Inj) 4 mg Q6H PRN IV NAUSEA AND/OR VOMITING; Start 02/18/16 at 09:30 Acetaminophen (Tylenol Supp) 650 mg Q4H PRN HI PAIN LEVEL 1-3 OR FEVER Last administered on 02/24/16at 14:32; Admin Dose 650 MG; Start 02/18/16 at 09:30 Morphine Sulfate (morphine) 2 mg Q4H PRN IV PAIN LEVEL 7-10 Last administered on 02/21/16at 09:35; Admin Dose 2 MG; Start 02/18/16 at 09:30 Bisacodyl (Dulcolax Supp) 10 mg DAILY PRN HI CONSTIPATION; Start 02/18/16 at 09 :30 Pantoprazole 40 mg 40 mg DAILY@06 IV Last administered on 02/25/16at 05:05; Admin Dose 40 MG; Start 02/19/16 at 06:00 Esmolol HCl/ Sodium Chloride 250 ml @ 28.8 mls/hr TITRATE IV Last administered on 02/22/16at 16:19; Admin Dose 57.6 MLS/HR; Start 02/18/16 at 09:30 Diltiazem HCl (Cardizem-D5W 125 Mg/125 ml Drip) 125 ml @ 5 mls/hr TITRATE IV Last administered on 02/21/16at 12:56; Admin Dose 15 MLS/HR; Start 02/19/16 at 14 :00 Amlodipine Besylate (Norvasc) 5 mg BID PO Last administered on 02/25/16at 08:37 ; Admin Dose 5 MG; Start 02/20/16 at 21:00 Hydralazine HCl (Apresoline) 10 mg Q6H PRN IV ELEVATED SYSTOLIC BP Last administered on 02/21/16 07:49; Admin Dose 10 MG; Start 02/20/16 at 22:00 Minoxidil 5 mg 5 mg BID PO Last administered on 02/25/16 08:38; Admin Dose 5 MG; Start 02/20/16 at 22:00 Nicardipine HCl/ Dextrose (Cardene Iv/D5W) 250 ml @ 50 mls/hr TITRATE IV Last administered on 02/24/16 06:36; Admin Dose 50 MLS/HR; Start 02/21/16 at 12:30 Metoprolol Tartrate 5 mg 5 mg Q4H PRN IV HR>55 Hold SBP<100; Start 02/21/16 at 11:30 Propofol 100 ml @ 3.189 mls/ hr Q12H IV Last administered on 02/25/16 12:41 ; Admin Dose 25.512 MLS/HR; Start 02/21/16 at 16:30 Fentanyl/Dextrose (D5W) 100 ml @ 0 mls/hr TITRATE IV Last administered on 02/24 15:03; Admin Dose 10 MLS/HR; Start 02/21/16 at 16:30 IV Flush (NS 10 ml) 10 ml PRN PRN IV IV PROTOCOL; Start 02/21/16 at 18:30 Ferrous Sulfate (Feosol Liquid Cup) 300 mg BID GTB Last administered on 08:37; Admin Dose 300 MG; Start 02/22/16 at 10:00 Metoprolol Tartrate 50 mg 50 mg Q8 PO Last administered on 02/25/16 14:51; Admin Dose 50 MG; Start 02/22/16 at 14:00 Vancomycin HCl/ Sodium Chloride (Vancocin/NS) 150 ml @ 75 mls/hr Q12H IVPB Last administered on 02/25/16 11:09; Admin Dose 75 MLS/HR; Start 02/22/16 at 23:00 Heparin Sodium (Porcine) (Heparin (5000 Units/0.5 ml)) 5,000 unit BID SC Last administered on 02/25/16 08:43; Admin Dose 5,000 UNIT; Start 02/22/16 at 21:00 Lorazepam (Ativan) 1 mg Q1H PRN IV ANXIETY Last administered on 02/24/16 12: 49; Admin Dose 1 MG; Start 02/23/16 at 11:30 Hydralazine HCl 25 mg 25 mg Q8 PO Last administered on 02/25/16at 14:51; Admin Dose 25 MG; Start 02/23/16 at 14:00 Piperacillin Sod/ Tazobactam Sod 50 ml @ 100 mls/hr Q6 IVPB Last administered on 02/25/16at 12:01; Admin Dose 100 MLS/HR; Start 02/23/16 at 18:00 Fluconazole/ Sodium Chloride (Diflucan 100 Mg/ NS (Pmx)) 50 ml @ 50 mls/hr Q24H IVPB Last administered on 02/25/16at 14:51; Admin Dose 50 MLS/HR; Start at 14:00 Insulin Aspart (Novolog Insulin Pen) NOVOLOG *MILD* ALGORI... Q4 SC Last administered on 02/24/16at 16:41; Admin Dose 1 UNIT; Start 02/24/16 at 01:00 Miscellaneous Information 1 ea NOTE XX ; Start 02/23/16 at 23:15 Glucose (Glutose) 15 gm Q15M PRN PO DECREASED GLUCOSE; Start 02/23/16 at 23:15 Glucose (Glutose) 22.5 gm Q15M PRN PO DECREASED GLUCOSE; Start 02/23/16 at 23: 15 Dextrose (D50w Syringe) 25 ml Q15M PRN IV DECREASED GLUCOSE; Start 02/23/16 at 23:15 Dextrose (D50w Syringe) 50 ml Q15M PRN IV DECREASED GLUCOSE; Start 02/23/16 at 23:15 Glucagon (Glucagen) 1 mg Q15M PRN IM DECREASED GLUCOSE; Start 02/23/16 at 23:15 Glucose 15 gm 15 gm Q15M PRN BUCCAL DECREASED GLUCOSE; Start 02/23/16 at 23:15 Levetiracetam/ Sodium Chloride (Keppra Iv/NS) 110 ml @ 440 mls/hr BID IVPB Last administered on 02/25/16at 08:38; Admin Dose 440 MLS/HR; Start 02/24/16 at 01:00 LD YBARRA NP Feb 25, 2016 15:39
[2016-02-25] MEDS: SOD CHLORIDE 0.9% 1,000 ML IV SCH (17:19)
--- NOTE | 2016-02-25 22:58 | SP ---
DATE OF PROCEDURE: 02/25/2016 HISTORY: This is a 45-year-old male admitted with sepsis, was seen to have seizure activity. EEG i s to rule out seizures. PROCEDURE: Utilizing a 16-channel EEG machine, cap scalp electrodes were applied in accordance with International 10-20 system. [id number] and [id number] montages were displayed. Electrical i mpedances were measured and reported. DESCRIPTION: During the resting state, posterior dominant rhythm of about 6 to 7 Hz was seen bihemi spherically with low amplitude waves throughout. Muscle artifact was noted at times. Left temporal frontal sharps were seen at times during the tracing. Hyperventilation and photic stimulation were not performed. INTERPRETATION: This is an abnormal EEG because of presence of generalized bihemispheric background slowing suggesting bihemispheric subcortical dysfunction and possibly epileptiform activity. Sendy florence correlate these findings with the patient's clinical picture. Dictated By: PARK HI/EFRAIN Conf#: [id number] DID#: [id number]
[2016-02-26] VITALS (106 sets, daily range): BP systolic 119–266; BP diastolic 61–137; PULSE 66–107; RESP 14–28
[2016-02-26] MEDS: PROPOFOL 100 ML IV SCH ×5 (00:39→21:22)
[2016-02-26] MEDS: INSULIN ASPART [NOVOLOG] 3 ML PEN SC SCH ×6 (00:46→23:42)
[2016-02-26] MEDS: ALBUTEROL HFA 8 GM INHALER INH SCH ×4 (01:22→19:16)
[2016-02-26] MEDS: IPRATROPIUM (HFA) 12.9 GM INHALER INH SCH ×4 (01:22→19:15)
[2016-02-26 05:06] LABS: AADO2 Arterial 51.5 mmHg (7.0-24.0); Allen Test ACCEPTAB; Arterial Base Excess -1.2 mmol/L (-3.0-3); Arterial COHb 0.3 % (0.0-3.0); Arterial HCO3 23.2 mmol/L (22.0-26.0); Arterial MetHb 0.3 % (0.0-1.5); Arterial Total Hemglobin 10.3 g/dl (12.0-18.0); MODE VENT - AC
[2016-02-26 05:58] LABS: BASOPHIL # 0.3 10^3/ul (0.0-0.1); EOSINOPHILS # 0.6 10^3/ul (0.0-0.5); HEMATOCRIT 27.4 % (42.0-52.0); HEMOGLOBIN 9.1 g/dl (14.0-18.0); LYMPHOCYTES # 1.2 10^3/ul (0.8-2.9); LYMPHOCYTES % 8.2 % (15.0-51.0); MEAN CORPUSCULAR HEMOGLOBIN 26.4 pg (29.0-33.0); MEAN CORPUSCULAR HGB CONC 33.1 g/dl (32.0-37.0); MEAN CORPUSCULAR VOLUME 79.7 fl (82.0-101.0); MEAN PLATELET VOLUME 8.5 fl (7.4-10.4); MONOCYTE # 1.5 10^3/ul (0.3-0.9); MONOCYTES % 10.3 % (0.0-11.0); NEUTROPHIL # 11.2 10^3/ul (1.6-7.5); NEUTROPHILS % 75.5 % (39.0-77.0); PLATELET COUNT 260 10^3/UL (140-440); RED BLOOD COUNT 3.43 10^6/ul (4.70-6.10); UNCORRECTED WBC 14.8 10^3/ul (4.8-10.8); WHITE BLOOD COUNT 14.8 10^3/ul (4.8-10.8)
[2016-02-26] MEDS: PANTOPRAZOLE 40 MG INJ IV SCH (06:01)
[2016-02-26] MEDS: PIPER-TAZO 2.25 GM (PMX) 50 ML IVPB SCH ×4 (06:01→23:27)
[2016-02-26] MEDS: METOPROLOL 50 MG TAB PO SCH ×2 (06:02→13:33)
[2016-02-26 06:12] LABS: CONDITION 1; LH ANALYZER COMMENTS 1; SUSPECT 1
[2016-02-26 06:32] LABS: POTASSIUM 3.5 mmol/L (3.5-5.1)
[2016-02-26 06:35] LABS: CREATININE 1.46 mg/dl (0.61-1.24)
[2016-02-26 06:36] LABS: CALCIUM 7.6 mg/dl (8.4-10.2)
--- NOTE | 2016-02-26 07:27 | RADRPT ---
PROCEDURE: XR Chest. CLINICAL INDICATION: Respiratory failure TECHNIQUE: Portable single view of the chest COMPARISON: 02/24 FINDINGS: Tubes and lines remain in good position. There is decreased gastric distension. Cardiomegaly is ag ain seen. Improved lung volumes with decreased right lung infiltrate. Left lower lobe atelectasis or infiltrate is stable or slightly increased. IMPRESSION: Improved lung volumes with decreased right lung infiltrate and probable stable left lower lobe atele ctasis or infiltrate. RPTAT: HLBE Physician Shola Date Time Electronically viewed and signed by Denia Saeed Physician on 02/26/2016 07:27 [place]/
[2016-02-26] MEDS: FENTAnyl 1,000 MCG in DEXTROSE 5% 80 ML IV SCH ×2 (08:54→18:38)
[2016-02-26] MEDS: FERROUS SULFATE 60 MG/ML 5ML CUP GTB SCH ×2 (08:57→20:40)
[2016-02-26] MEDS: AMLODIPINE 5 MG TAB PO SCH ×2 (08:57→20:40)
[2016-02-26] MEDS: MINOXIDIL 2.5 MG TAB PO SCH ×2 (08:57→20:41)
[2016-02-26] MEDS: LEVETIRACETAM IV 1,000 MG in SOD CHLORIDE 0.9% 100 ML IVPB SCH ×2 (08:58→20:41)
[2016-02-26] MEDS: HEPARIN 5,000 UNIT/0.5 ML SYG SC SCH ×2 (09:00→20:43)
[2016-02-26] MEDS: METOPROLOL 5 MG INJ IV PRN ×2 (09:47→18:34)
--- NOTE | 2016-02-26 09:51 | PN ---
DATE: 02/26/2016 HOSPITALIST PROGRESS NOTE SUBJECTIVE DATA: The patient remains intubated on sedation. Off IV antihypertensives. OBJECTIVE DATA: VITAL SIGNS: Temperature 98.7, pulse is 73, respiratory rate 20, blood pressure 136/64, oxygen saturation 100% on mechanical ventilation. HEENT: Head normocephalic and atraumatic. Eyes: Anicteric sclerae. Conjunctivae clear. ENT: Nasal septum is midline. Oral mucosa is dry. NECK: Short and obese. Unable to visualize any neck veins. CARDIAC: Regular rate and rhythm. S1 and S2 heard. ABDOMEN: Protruded. Soft. Bowel sounds hypoactive in all 4 quadrants. GENITOURINARY: The patient has a Smalls catheter in place. EXTREMITIES: No cyanosis, no clubbing. Edema of bilateral lower extremities and bilateral upper extremities. Right upper extremity PICC line in place. Peripheral pulses palpable. NEUROLOGIC: The patient is sedated. LABORATORY AND DIAGNOSTIC DATA: WBC 14.9, hemoglobin 9.1, hematocrit 27.4, platelet count 260. Sodium 140, potassium 3.5, chloride 107, carbon dioxide 23 , anion gap 14, BUN 24, creatinine 1.46, glucose 128, calcium 7.6. ASSESSMENT AND PLAN: 1. Type B aortic dissection. Continue blood pressure control. Continue ICU monitoring. Status post evaluation by vascular surgery. No surgical intervention as of now. 2. Accelerated hypertension. Currently controlled. On antihypertensives. 3. Acute hypoxic respiratory failure. Etiology unclear. Most probably secondary to aspiration. Continue ventilator support as per pulmonary. 4. Aspiration pneumonia. Continue antibiotics as per infectious diseases. 5. Acute kidney injury, most probably secondary to hemodynamics. Nephrology following. Use nephrotoxic drugs with caution. 6. Left cephalic vein thrombosis. Continue elevation. No need for therapeutic anticoagulation since this is the superficial vein. 7. Microcytic hypochromic anemia. Iron panel showing iron deficiency. Continue iron supplements. 8. Acute encephalopathy, most probably metabolic in origin. Electroencephalography showing background slowing suggesting bihemispheric subcortical dysfunction, possibly epileptiform activity. The patient was started on anticonvulsants for the same. 9. Sepsis secondary to gram-positive bacteremia. Latest blood cultures are negative. On antibiotics as per infectious diseases. 10. Fluids, electrolytes, and nutrition. Continue NG tube feedings. 11. Deep venous thrombosis prophylaxis. Subcutaneous heparin. 12. Gastrointestinal prophylaxis. Proton pump inhibitor. PLAN: Continue intensive care unit monitoring. Ventilator weaning as per pulmonary. Case discussed with Dr. Hernandez. Critical care time 35 minutes. KEITH HERNANDEZ MD, AM/EFRAIN Conf#: [id number] DID#: [id number] MTDD
[2016-02-26] MEDS: VANCOMYCIN 750 MG in SOD CHLORIDE 0.9% 150 ML IVPB SCH ×2 (10:53→22:49)
[2016-02-26] MEDS: LORAZEPAM 2 MG INJ IV PRN ×2 (11:51→15:02)
--- NOTE | 2016-02-26 12:14 | CONS ---
Date/Time of Note Date/Time of Note DATE: 02/26/16 TIME: 12:11 Consult Date/Type/Reason Admit Date/Time Feb 18, 2016 at 09:14 Type of Consultation: pulmonary Ordering Provider: TIFFANIE HEARD MD Subjective Patient remains intubated sedated on mechanical ventilation off intravenous blood pressure medications Objective PHYSICAL EXAMINATION GENERAL: A well-nourished well-developed gentleman intubated on anticoagulation VITAL SIGNS: see below. HEENT: Pupils equal, round, and reactive to light. CARDIAC: S1, S2, tachycardia. CHEST: Diminished air entry bilaterally. ABDOMEN: Mildly distended. No bowel sounds. EXTREMITIES: No cyanosis, clubbing edema +1 NEUROLOGIC: No focal deficits. Vital Signs Date Time Temp Pulse Resp B/P Pulse Ox O2 Delivery O2 Flow Rate FiO2 02/26/16 11:05 72 20 100 30 02/26/16 09:30 220/101 02/26/16 09:00 Mechanical Ventilator 02/26/16 08:00 98.7 Intake and Output 02/25/16 02/25/16 02/26/16 14:59 22:59 06:59 Intake Total 1163.012 ml 1235.451 ml 1074.786 ml Output Total 775 ml 710 ml 660 ml Balance 388.012 ml 525.451 ml 414.786 ml Results/Medications Result Diagram: 02/26/16 0430 02/26/16 0430 Results 24 hrs Chest x-ray Improved right-sided infiltrate Laboratory Tests Test 02/25/16 16:35 02/25/16 20:56 02/26/16 00:45 02/26/16 04:30 Bedside Glucose 117 122 113 Anion Gap 14 Basophils # 0.3 H Basophils % 2.0 Blood Morphology Comment Blood Urea Nitrogen 24 H Calcium Level 7.6 L Carbon Dioxide Level 23 Chloride Level 107 Creatinine 1.46 H Eosinophils # 0.6 H Eosinophils % 4.0 Glucose Level 128 Hematocrit 27.4 L Hemoglobin 9.1 L Lymphocytes # 1.2 Lymphocytes % 8.2 L Mean Corpuscular Hemoglobin 26.4 L Mean Corpuscular Hemoglobin Concent 33.1 Mean Corpuscular Volume 79.7 L Mean Platelet Volume 8.5 Monocytes # 1.5 H Monocytes % 10.3 Neutrophils # 11.2 H Neutrophils % 75.5 Nucleated Red Blood Cells # 0.0 Nucleated Red Blood Cells % 0.0 Platelet Count 260 Potassium Level 3.5 Red Blood Count 3.43 L Red Cell Distribution Width 18.0 H Sodium Level 140 White Blood Count 14.8 H Test 02/26/16 05:00 02/26/16 05:12 02/26/16 09:02 Arterial Blood HCO3 23.2 Arterial Blood Base Excess -1.2 Arterial Blood Oxygen Saturation 97.6 Jovanny Test ACCEPTAB Arterial Blood Gas Puncture Site Right Radial Arterial Blood Carboxyhemoglobin 0.3 Arterial Blood Date Drawn 02/26/2016 4:56:56 AM Arterial Blood Methemoglobin 0.3 Arterial Blood pCO2 (Temp correct) 37.4 Arterial Blood pH (Temp corrected) 7.410 Arterial Blood pO2 (Temp corrected) 118.5 H Blood Gas A-a O2 Differential 51.5 H Blood Gas Actual Respiration Rate 20 Blood Gas Inspiratory Pressure 31.0 Blood Gas Low PEEP Setting 10.0 Blood Gas Modality VENT - AC Blood Gas Notified Time 02/26/2016 5:06:32 AM Blood Gas Notified Whom BR Blood Gas Respiration Rate 20.0 Blood Gas Specimen Source Blood arterial Blood Gas Temperature 37.0 Blood Gas Tidal Volume 550.0 FiO2 30.0 Oxyhemoglobin Percent 97.0 Total Hemoglobin 10.3 L Bedside Glucose 126 122 Medications Current Medications Sodium Chloride (NS) 1,000 ml @ 50 mls/hr Q20H IV Last administered on at 17:19; Admin Dose 50 MLS/HR; Start 02/18/16 at 09:13 Ondansetron HCl (Zofran Inj) 4 mg Q6H PRN IV NAUSEA AND/OR VOMITING; Start 02/18/16 at 09:30 Acetaminophen (Tylenol Supp) 650 mg Q4H PRN AR PAIN LEVEL 1-3 OR FEVER Last administered on 02/24/16at 14:32; Admin Dose 650 MG; Start 02/18/16 at 09:30 Morphine Sulfate (morphine) 2 mg Q4H PRN IV PAIN LEVEL 7-10 Last administered on 02/21/16at 09:35; Admin Dose 2 MG; Start 02/18/16 at 09:30 Bisacodyl (Dulcolax Supp) 10 mg DAILY PRN AR CONSTIPATION; Start 02/18/16 at 09 :30 Pantoprazole (Protonix Iv) 40 mg DAILY@06 IV Last administered on 02/26/16at 06 :01; Admin Dose 40 MG; Start 02/19/16 at 06:00 Amlodipine Besylate (Norvasc) 5 mg BID PO Last administered on 02/26/16 08:57 ; Admin Dose 5 MG; Start 02/20/16 at 21:00 Hydralazine HCl (Apresoline) 10 mg Q6H PRN IV ELEVATED SYSTOLIC BP Last administered on 02/21/16 07:49; Admin Dose 10 MG; Start 02/20/16 at 22:00 Minoxidil 5 mg 5 mg BID PO Last administered on 02/26/16 08:57; Admin Dose 5 MG; Start 02/20/16 at 22:00 Nicardipine HCl/ Dextrose (Cardene Iv/D5W) 250 ml @ 50 mls/hr TITRATE IV Last administered on 02/24/16 06:36; Admin Dose 50 MLS/HR; Start 02/21/16 at 12:30 Metoprolol Tartrate 5 mg 5 mg Q4H PRN IV HR>55 Hold SBP<100 Last administered on 02/26/16 09:47; Admin Dose 5 MG; Start 02/21/16 at 11:30 Propofol 100 ml @ 3.189 mls/ hr Q12H IV Last administered on 02/26/16 09:56 ; Admin Dose 19.134 MLS/HR; Start 02/21/16 at 16:30 Fentanyl/Dextrose (D5W) 100 ml @ 0 mls/hr TITRATE IV Last administered on 02/25 08:54; Admin Dose 10 MLS/HR; Start 02/21/16 at 16:30 IV Flush (NS 10 ml) 10 ml PRN PRN IV IV PROTOCOL; Start 02/21/16 at 18:30 Ferrous Sulfate (Feosol Liquid Cup) 300 mg BID GTB Last administered on 08:57; Admin Dose 300 MG; Start 02/22/16 at 10:00 Metoprolol Tartrate 50 mg 50 mg Q8 PO Last administered on 02/26/16 06:02; Admin Dose 50 MG; Start 02/22/16 at 14:00 Vancomycin HCl/ Sodium Chloride (Vancocin/NS) 150 ml @ 75 mls/hr Q12H IVPB Last administered on 02/26/16 10:53; Admin Dose 75 MLS/HR; Start 02/22/16 at 23:00 Heparin Sodium (Porcine) (Heparin (5000 Units/0.5 ml)) 5,000 unit BID SC Last administered on 02/26/16at 09:00; Admin Dose 5,000 UNIT; Start 02/22/16 at 21:00 Lorazepam (Ativan) 1 mg Q1H PRN IV ANXIETY Last administered on 02/26/16at 11: 51; Admin Dose 1 MG; Start 02/23/16 at 11:30 Hydralazine HCl 25 mg 25 mg Q8 PO Last administered on 02/26/16at 06:02; Admin Dose 25 MG; Start 02/23/16 at 14:00 Piperacillin Sod/ Tazobactam Sod 50 ml @ 100 mls/hr Q6 IVPB Last administered on 02/26/16at 11:52; Admin Dose 100 MLS/HR; Start 02/23/16 at 18:00 Fluconazole/ Sodium Chloride (Diflucan 100 Mg/ NS (Pmx)) 50 ml @ 50 mls/hr Q24H IVPB Last administered on 02/25/16at 14:51; Admin Dose 50 MLS/HR; Start at 14:00 Insulin Aspart (Novolog Insulin Pen) NOVOLOG *MILD* ALGORI... Q4 SC Last administered on 02/24/16at 16:41; Admin Dose 1 UNIT; Start 02/24/16 at 01:00 Miscellaneous Information 1 ea NOTE XX ; Start 02/23/16 at 23:15 Glucose (Glutose) 15 gm Q15M PRN PO DECREASED GLUCOSE; Start 02/23/16 at 23:15 Glucose (Glutose) 22.5 gm Q15M PRN PO DECREASED GLUCOSE; Start 02/23/16 at 23: 15 Dextrose (D50w Syringe) 25 ml Q15M PRN IV DECREASED GLUCOSE; Start 02/23/16 at 23:15 Dextrose (D50w Syringe) 50 ml Q15M PRN IV DECREASED GLUCOSE; Start 02/23/16 at 23:15 Glucagon (Glucagen) 1 mg Q15M PRN IM DECREASED GLUCOSE; Start 02/23/16 at 23:15 Glucose 15 gm 15 gm Q15M PRN BUCCAL DECREASED GLUCOSE; Start 02/23/16 at 23:15 Levetiracetam/ Sodium Chloride (Keppra Iv/NS) 110 ml @ 440 mls/hr BID IVPB Last administered on 02/26/16at 08:58; Admin Dose 440 MLS/HR; Start 02/24/16 at 01:00 Miscellaneous Information (*Rx Drug Level Order Reminder*) 1 ONCE ONCE XX ; Start 02/27/16 at 10:00; Stop 02/27/16 at 10:01 Assessment/Plan Chief Complaint/Hosp Course IMPRESSION 1. Hypertensive Emergency 2. Type B Aortic Dissection 3. Encephalopathy, possibly secondary to antihypertensive medications. Questionable new onset seizures rule out CVA 4. Aspiration pneumonia with hypoxemic respiratory failure. 5. FARRUKH RECS: 1. Vent support with plans to continue weaning efforts decrease sedation as tolerated 2. Continue BP control 3. Sedation Holiday daily 4. Replete K/mg, increased tube feeding 5. Am CXR/ABG 6. Abx per ID Problems: ANA[facility] BREWSTER [facility], [facility] Feb 26, 2016 12:14
[2016-02-26] MEDS: FLUCONAZOLE 100 MG/NS (PMX) 50 ML IVPB SCH (13:33)
--- NOTE | 2016-02-26 13:51 | CONS ---
Date/Time of Note Date/Time of Note DATE: 02/26/16 TIME: 13:47 Assessment/Plan Assessment/Plan Chief Complaint/Hosp Course Imp: 1.HTN emergency-NL EF by echo this admit-under reasonable control on PO medications only. Off all drips. Had some documented significantly elevated BP but was during sedation vacation and vent weaning per nurse at bedside 2.Aortic dissection-type B 3.abnl ecg-lateral TWI-negative troponin x 3 since admit 4.anxiety 5.ARF 6. Pericardial effusion by echo-small with NL EF Recc: -Tele in ICU -Follow volume status closely -serial ecg's -Continue PO BB/CCB/minoxindil/hydralazine and follow bp closely and will make slight increase to PO BB -ongoing surgical follow-up -f/u MS closely -Vent weaning as tolerated Problems: Consultation Date/Type/Reason Admit Date/Time Feb 18, 2016 at 09:14 Initial Consult Date 02/19/2016 Type of Consultation: Cardiology Reason for Consultation HTN/aortic dissection Referring Provider: TIFFANIE HEARD MD Exam/Review of Systems Vital Signs Vitals Vital Signs Date Time Temp Pulse Resp B/P Pulse Ox O2 Delivery O2 Flow Rate FiO2 02/26/16 12:00 76 02/26/16 11:05 20 100 30 02/26/16 09:30 220/101 02/26/16 09:00 Mechanical Ventilator 02/26/16 08:00 98.7 Intake and Output 02/25/16 02/25/16 02/26/16 15:00 23:00 07:00 Intake Total 1137.5 ml 1254.582 ml 1114.786 ml Output Total 775 ml 690 ml 660 ml Balance 362.5 ml 564.582 ml 454.786 ml Exam Review of Systems: CONSTITUTIONAL: No fevers, chills. PULMONARY: intubated CARDIOVASCULAR: No obvious chest pain/palpitations GASTROINTESTINAL: No nausea/vomiting. GENITOURINARY: No hematuria/dysuria. MUSCULOSKELETAL: No obvious myagias/arthalgias. PSYCHIATRIC: The patient denies depression. NEUROLOGIC: No weakness Constitutional: other (sedated) Psych: no complaints Head: normocephalic ENMT: mucosa pink and moist Neck: jvd (9 cm water), supple Respiratory: other (upper airway rhoncherous sounds) Cardiovascular: regular rate and rhythm Gastrointestinal: non-tender, soft Musculoskeletal: muscle tone (normal) Extremities: edema (none) Neurological: other (sedated) Results Result Diagram: 02/26/16 0430 02/26/16 0430 Results 24 hrs Laboratory Tests Test 02/25/16 16:35 02/25/16 20:56 02/26/16 00:45 02/26/16 04:30 Bedside Glucose 117 122 113 Anion Gap 14 Basophils # 0.3 H Basophils % 2.0 Blood Morphology Comment Blood Urea Nitrogen 24 H Calcium Level 7.6 L Carbon Dioxide Level 23 Chloride Level 107 Creatinine 1.46 H Eosinophils # 0.6 H Eosinophils % 4.0 Glucose Level 128 Hematocrit 27.4 L Hemoglobin 9.1 L Lymphocytes # 1.2 Lymphocytes % 8.2 L Mean Corpuscular Hemoglobin 26.4 L Mean Corpuscular Hemoglobin Concent 33.1 Mean Corpuscular Volume 79.7 L Mean Platelet Volume 8.5 Monocytes # 1.5 H Monocytes % 10.3 Neutrophils # 11.2 H Neutrophils % 75.5 Nucleated Red Blood Cells # 0.0 Nucleated Red Blood Cells % 0.0 Platelet Count 260 Potassium Level 3.5 Red Blood Count 3.43 L Red Cell Distribution Width 18.0 H Sodium Level 140 White Blood Count 14.8 H Test 02/26/16 05:00 02/26/16 05:12 02/26/16 09:02 02/26/16 13:09 Arterial Blood HCO3 23.2 Arterial Blood Base Excess -1.2 Arterial Blood Oxygen Saturation 97.6 Jovanny Test ACCEPTAB Arterial Blood Gas Puncture Site Right Radial Arterial Blood Carboxyhemoglobin 0.3 Arterial Blood Date Drawn 02/26/2016 4:56:56 AM Arterial Blood Methemoglobin 0.3 Arterial Blood pCO2 (Temp correct) 37.4 Arterial Blood pH (Temp corrected) 7.410 Arterial Blood pO2 (Temp corrected) 118.5 H Blood Gas A-a O2 Differential 51.5 H Blood Gas Actual Respiration Rate 20 Blood Gas Inspiratory Pressure 31.0 Blood Gas Low PEEP Setting 10.0 Blood Gas Modality VENT - AC Blood Gas Notified Time 02/26/2016 5:06:32 AM Blood Gas Notified Whom BR Blood Gas Respiration Rate 20.0 Blood Gas Specimen Source Blood arterial Blood Gas Temperature 37.0 Blood Gas Tidal Volume 550.0 FiO2 30.0 Oxyhemoglobin Percent 97.0 Total Hemoglobin 10.3 L Bedside Glucose 126 122 138 Medications Medications Current Medications Sodium Chloride (NS) 1,000 ml @ 50 mls/hr Q20H IV Last administered on at 17:19; Admin Dose 50 MLS/HR; Start 02/18/16 at 09:13 Ondansetron HCl (Zofran Inj) 4 mg Q6H PRN IV NAUSEA AND/OR VOMITING; Start 02/18/16 at 09:30 Acetaminophen (Tylenol Supp) 650 mg Q4H PRN NE PAIN LEVEL 1-3 OR FEVER Last administered on 02/24/16 14:32; Admin Dose 650 MG; Start 02/18/16 at 09:30 Morphine Sulfate (morphine) 2 mg Q4H PRN IV PAIN LEVEL 7-10 Last administered on 02/21/16at 09:35; Admin Dose 2 MG; Start 02/18/16 at 09:30 Bisacodyl (Dulcolax Supp) 10 mg DAILY PRN NE CONSTIPATION; Start 02/18/16 at 09 :30 Pantoprazole (Protonix Iv) 40 mg DAILY@06 IV Last administered on 02/26/16 06 :01; Admin Dose 40 MG; Start 02/19/16 at 06:00 Amlodipine Besylate (Norvasc) 5 mg BID PO Last administered on 02/26/16 08:57 ; Admin Dose 5 MG; Start 02/20/16 at 21:00 Hydralazine HCl (Apresoline) 10 mg Q6H PRN IV ELEVATED SYSTOLIC BP Last administered on 02/21/16 07:49; Admin Dose 10 MG; Start 02/20/16 at 22:00 Minoxidil 5 mg 5 mg BID PO Last administered on 02/26/16 08:57; Admin Dose 5 MG; Start 02/20/16 at 22:00 Nicardipine HCl/ Dextrose (Cardene Iv/D5W) 250 ml @ 50 mls/hr TITRATE IV Last administered on 02/24/16 06:36; Admin Dose 50 MLS/HR; Start 02/21/16 at 12:30 Metoprolol Tartrate 5 mg 5 mg Q4H PRN IV HR>55 Hold SBP<100 Last administered on 02/26/16 09:47; Admin Dose 5 MG; Start 02/21/16 at 11:30 Propofol 100 ml @ 3.189 mls/ hr Q12H IV Last administered on 02/26/16 13:40 ; Admin Dose 12.756 MLS/HR; Start 02/21/16 at 16:30 Fentanyl/Dextrose (D5W) 100 ml @ 0 mls/hr TITRATE IV Last administered on 02/25 08:54; Admin Dose 10 MLS/HR; Start 02/21/16 at 16:30 IV Flush (NS 10 ml) 10 ml PRN PRN IV IV PROTOCOL; Start 02/21/16 at 18:30 Ferrous Sulfate (Feosol Liquid Cup) 300 mg BID GTB Last administered on 08:57; Admin Dose 300 MG; Start 02/22/16 at 10:00 Metoprolol Tartrate 50 mg 50 mg Q8 PO Last administered on 02/26/16 13:33; Admin Dose 50 MG; Start 02/22/16 at 14:00 Vancomycin HCl/ Sodium Chloride (Vancocin/NS) 150 ml @ 75 mls/hr Q12H IVPB Last administered on 02/26/16 10:53; Admin Dose 75 MLS/HR; Start 02/22/16 at 23:00 Heparin Sodium (Porcine) (Heparin (5000 Units/0.5 ml)) 5,000 unit BID SC Last administered on 02/26/16 09:00; Admin Dose 5,000 UNIT; Start 02/22/16 at 21:00 Lorazepam (Ativan) 1 mg Q1H PRN IV ANXIETY Last administered on 02/26/16 11: 51; Admin Dose 1 MG; Start 02/23/16 at 11:30 Hydralazine HCl 25 mg 25 mg Q8 PO Last administered on 02/26/16 13:33; Admin Dose 25 MG; Start 02/23/16 at 14:00 Piperacillin Sod/ Tazobactam Sod 50 ml @ 100 mls/hr Q6 IVPB Last administered on 02/26/16 11:52; Admin Dose 100 MLS/HR; Start 02/23/16 at 18:00 Fluconazole/ Sodium Chloride (Diflucan 100 Mg/ NS (Pmx)) 50 ml @ 50 mls/hr Q24H IVPB Last administered on 02/26/16 13:33; Admin Dose 50 MLS/HR; Start at 14:00 Miscellaneous Information 1 ea NOTE XX ; Start 02/23/16 at 23:15 Glucose (Glutose) 15 gm Q15M PRN PO DECREASED GLUCOSE; Start 02/23/16 at 23:15 Glucose (Glutose) 22.5 gm Q15M PRN PO DECREASED GLUCOSE; Start 02/23/16 at 23: 15 Dextrose (D50w Syringe) 25 ml Q15M PRN IV DECREASED GLUCOSE; Start 02/23/16 at 23:15 Dextrose (D50w Syringe) 50 ml Q15M PRN IV DECREASED GLUCOSE; Start 02/23/16 at 23:15 Glucagon (Glucagen) 1 mg Q15M PRN IM DECREASED GLUCOSE; Start 02/23/16 at 23:15 Glucose 15 gm 15 gm Q15M PRN BUCCAL DECREASED GLUCOSE; Start 02/23/16 at 23:15 Levetiracetam/ Sodium Chloride (Keppra Iv/NS) 110 ml @ 440 mls/hr BID IVPB Last administered on 02/26/16at 08:58; Admin Dose 440 MLS/HR; Start 02/24/16 at 01:00 Miscellaneous Information (*Rx Drug Level Order Reminder*) 1 ONCE ONCE XX ; Start 02/27/16 at 10:00; Stop 02/27/16 at 10:01 Insulin Aspart (Novolog Insulin Pen) NOVOLOG *MILD* ALGORI... Q6 SC ; Start 03/01 at 18:00 JUNAID PAZ Feb 26, 2016 13:51
--- NOTE | 2016-02-26 14:04 | PN ---
Date/Time of Note Date/Time of Note DATE: 02/26/16 TIME: 14:02 Assessment/Plan Lines/Catheters IV Catheter Type (from Nrsg): PICC Line Smalls in Place (from Nrsg): Yes Assessment/Plan Chief Complaint/Hosp Course IMPRESSION: Type B aortic dissection. The patient's blood pressure more controlled RECOMMENDATIONS: At this time, we would continue blood pressure management, monitor vital signs and laboratory values in an intensive care unit setting. Vent support per pulm medicine No plan for surgery. Abx Cr. 1.[address] scan when renal fxn improves I discussed with the patient and Dr. Mccabe and staff Problems: Subjective 24 Hr Interval Summary Constitutional: improved Pain Control: mild Exam/Review of Systems Vital Signs Vitals Vital Signs Date Time Temp Pulse Resp B/P Pulse Ox O2 Delivery O2 Flow Rate FiO2 02/26/16 13:45 84 20 128/77 100 02/26/16 13:00 Mechanical Ventilator 02/26/16 12:00 99.2 02/26/16 11:05 30 Intake and Output 02/25/16 02/25/16 02/26/16 15:00 23:00 07:00 Intake Total 1137.5 ml 1254.582 ml 1114.786 ml Output Total 775 ml 690 ml 660 ml Balance 362.5 ml 564.582 ml 454.786 ml Exam ENMT: mucosa pink and moist, nl external ears & nose, nl lips & teeth, nl nasal mucosa & septum Neck: non-tender, supple Respiratory: diminished breath sounds Cardiovascular: nl pulses, regular rate and rhythm Gastrointestinal: nl liver, spleen, non-tender, soft Results Result Diagram: 02/26/1642902/26/16429 KAYLYN RADFORD MD Feb 26, 2016 14:04
--- NOTE | 2016-02-26 15:10 | CONS ---
Date/Time of Note Date/Time of Note DATE: 02/26/16 TIME: 14:56 Assessment/Plan Assessment/Plan Chief Complaint/Hosp Course 45 y/o M admitted for management of hypertensive emergency, with aortic dissection, FARRUKH, aspiration pneumonia and respiratory failure, remains intubated on sedation. EEG performed for encephalopathy shows left frontal sharps. Keppra 1000 mg BID initiated. Head CT on 02/22 unrevealing shows chronic microvascular changes, no acute ischemic changes/ hemorrhage. Recommendations: -continue frequent neuro exams off sedation -continue on Keppra 1000 mg BID for abnormal EEG left frontal sharps -when patient is more stable please obtain MRI Brain without contrast, MRA Head/ Neck without contrast to evaluate for areas of ischemia/ structural abnormalities Problems: Consultation Date/Type/Reason Admit Date/Time Feb 18, 2016 at 09:14 Date of Consultation: Feb 26, 2016 Type of Consultation: abnormal EEG Reason for Consultation evaluate for seizures, abnormal EEG encephalopathy Referring Provider: ANAYA BREWSTER MD, [facility] Hx of Present Illness 45 year old M admitted on 02/20 for hypertensive emergency, FARRUKH, aortic dissection requiring ICU level care for aspiration pneumonia and hypoxic respiratory failure. He remains intubated with persistent encephalopathy, now off IV anti-hypertensives and being weaned off sedatives. Routine EEG performed on 02/24 shows generalized bihemispheric background slowing suggestive of bihemispheric subcortical dysfunction possible epileptiform activity, left temporal frontal sharps seen. Keppra 1000 mg BID initiated, no clinical seizures noted per nursing staff in the past day. Subjective hx not possible: pt non-verbal, pt critical Psychological: no complaints Past Medical History unable to obtain Medical History: hypertension Social History Alcohol Use: none Smoking Status: Never smoker Drug Use: none Exam/Review of Systems Vital Signs Vitals Vital Signs Date Time Temp Pulse Resp B/P Pulse Ox O2 Delivery O2 Flow Rate FiO2 02/26/16 13:45 84 20 128/77 100 02/26/16 13:00 Mechanical Ventilator 02/26/16 12:00 99.2 02/26/16 11:05 30 Intake and Output 02/25/16 02/25/16 02/26/16 15:00 23:00 07:00 Intake Total 1137.5 ml 1254.582 ml 1114.786 ml Output Total 775 ml 690 ml 660 ml Balance 362.5 ml 564.582 ml 454.786 ml Exam patient is intubated on sedation limited exam overbreathing ventilator after stimulated he moves spontaneously in responsive to verbal stimuli unable to open his eyes to command or voice CN: pupils 1 mm very constricted limited reactivity, no gaze preference no nystagmus noted able to Doll's, corneal and gag reflexes are present Motor: more spontaneous movement noted in right arm and right leg more than left arm and leg possible flexor posturing in right arm withdraws legs to noxious stimuli Reflexes 1+ throughout toes are mute Results Result Diagram: 02/26/16 0430 02/26/16 0430 Results 24 hrs Laboratory Tests Test 02/25/16 16:35 02/25/16 20:56 02/26/16 00:45 02/26/16 04:30 Bedside Glucose 117 122 113 Anion Gap 14 Basophils # 0.3 H Basophils % 2.0 Blood Morphology Comment Blood Urea Nitrogen 24 H Calcium Level 7.6 L Carbon Dioxide Level 23 Chloride Level 107 Creatinine 1.46 H Eosinophils # 0.6 H Eosinophils % 4.0 Glucose Level 128 Hematocrit 27.4 L Hemoglobin 9.1 L Lymphocytes # 1.2 Lymphocytes % 8.2 L Mean Corpuscular Hemoglobin 26.4 L Mean Corpuscular Hemoglobin Concent 33.1 Mean Corpuscular Volume 79.7 L Mean Platelet Volume 8.5 Monocytes # 1.5 H Monocytes % 10.3 Neutrophils # 11.2 H Neutrophils % 75.5 Nucleated Red Blood Cells # 0.0 Nucleated Red Blood Cells % 0.0 Platelet Count 260 Potassium Level 3.5 Red Blood Count 3.43 L Red Cell Distribution Width 18.0 H Sodium Level 140 White Blood Count 14.8 H Test 02/26/16 05:00 02/26/16 05:12 02/26/16 09:02 02/26/16 13:09 Arterial Blood HCO3 23.2 Arterial Blood Base Excess -1.2 Arterial Blood Oxygen Saturation 97.6 Jovanny Test ACCEPTAB Arterial Blood Gas Puncture Site Right Radial Arterial Blood Carboxyhemoglobin 0.3 Arterial Blood Date Drawn 02/26/2016 4:56:56 AM Arterial Blood Methemoglobin 0.3 Arterial Blood pCO2 (Temp correct) 37.4 Arterial Blood pH (Temp corrected) 7.410 Arterial Blood pO2 (Temp corrected) 118.5 H Blood Gas A-a O2 Differential 51.5 H Blood Gas Actual Respiration Rate 20 Blood Gas Inspiratory Pressure 31.0 Blood Gas Low PEEP Setting 10.0 Blood Gas Modality VENT - AC Blood Gas Notified Time 02/26/2016 5:06:32 AM Blood Gas Notified Whom BR Blood Gas Respiration Rate 20.0 Blood Gas Specimen Source Blood arterial Blood Gas Temperature 37.0 Blood Gas Tidal Volume 550.0 FiO2 30.0 Oxyhemoglobin Percent 97.0 Total Hemoglobin 10.3 L Bedside Glucose 126 122 138 Medications Medications Current Medications Sodium Chloride (NS) 1,000 ml @ 50 mls/hr Q20H IV Last administered on at 17:19; Admin Dose 50 MLS/HR; Start 02/18/16 at 09:13 Ondansetron HCl (Zofran Inj) 4 mg Q6H PRN IV NAUSEA AND/OR VOMITING; Start 02/18/16 at 09:30 Acetaminophen (Tylenol Supp) 650 mg Q4H PRN NE PAIN LEVEL 1-3 OR FEVER Last administered on 02/24/16at 14:32; Admin Dose 650 MG; Start 02/18/16 at 09:30 Morphine Sulfate (morphine) 2 mg Q4H PRN IV PAIN LEVEL 7-10 Last administered on 02/21/16at 09:35; Admin Dose 2 MG; Start 02/18/16 at 09:30 Bisacodyl (Dulcolax Supp) 10 mg DAILY PRN NE CONSTIPATION; Start 02/18/16 at 09 :30 Pantoprazole (Protonix Iv) 40 mg DAILY@06 IV Last administered on 02/26/16at 06 :01; Admin Dose 40 MG; Start 02/19/16 at 06:00 Amlodipine Besylate (Norvasc) 5 mg BID PO Last administered on 02/26/16at 08:57 ; Admin Dose 5 MG; Start 02/20/16 at 21:00 Hydralazine HCl (Apresoline) 10 mg Q6H PRN IV ELEVATED SYSTOLIC BP Last administered on 02/21/16at 07:49; Admin Dose 10 MG; Start 02/20/16 at 22:00 Minoxidil 5 mg 5 mg BID PO Last administered on 02/26/16at 08:57; Admin Dose 5 MG; Start 02/20/16 at 22:00 Nicardipine HCl/ Dextrose (Cardene Iv/D5W) 250 ml @ 50 mls/hr TITRATE IV Last administered on 02/24/16 06:36; Admin Dose 50 MLS/HR; Start 02/21/16 at 12:30 Metoprolol Tartrate 5 mg 5 mg Q4H PRN IV HR>55 Hold SBP<100 Last administered on 02/26/16 09:47; Admin Dose 5 MG; Start 02/21/16 at 11:30 Propofol 100 ml @ 3.189 mls/ hr Q12H IV Last administered on 02/26/16 13:40 ; Admin Dose 12.756 MLS/HR; Start 02/21/16 at 16:30 Fentanyl/Dextrose (D5W) 100 ml @ 0 mls/hr TITRATE IV Last administered on 02/25 08:54; Admin Dose 10 MLS/HR; Start 02/21/16 at 16:30 IV Flush (NS 10 ml) 10 ml PRN PRN IV IV PROTOCOL; Start 02/21/16 at 18:30 Ferrous Sulfate 300 mg 300 mg BID GTB Last administered on 02/26/16 08:57; Admin Dose 300 MG; Start 02/22/16 at 10:00 Vancomycin HCl/ Sodium Chloride (Vancocin/NS) 150 ml @ 75 mls/hr Q12H IVPB Last administered on 02/26/16 10:53; Admin Dose 75 MLS/HR; Start 02/22/16 at 23:00 Heparin Sodium (Porcine) (Heparin (5000 Units/0.5 ml)) 5,000 unit BID SC Last administered on 02/26/16 09:00; Admin Dose 5,000 UNIT; Start 02/22/16 at 21:00 Lorazepam (Ativan) 1 mg Q1H PRN IV ANXIETY Last administered on 02/26/16 11: 51; Admin Dose 1 MG; Start 02/23/16 at 11:30 Hydralazine HCl 25 mg 25 mg Q8 PO Last administered on 02/26/16 13:33; Admin Dose 25 MG; Start 02/23/16 at 14:00 Piperacillin Sod/ Tazobactam Sod 50 ml @ 100 mls/hr Q6 IVPB Last administered on 02/26/16 11:52; Admin Dose 100 MLS/HR; Start 02/23/16 at 18:00 Fluconazole/ Sodium Chloride (Diflucan 100 Mg/ NS (Pmx)) 50 ml @ 50 mls/hr Q24H IVPB Last administered on 02/26/16at 13:33; Admin Dose 50 MLS/HR; Start at 14:00 Miscellaneous Information 1 ea NOTE XX ; Start 02/23/16 at 23:15 Glucose (Glutose) 15 gm Q15M PRN PO DECREASED GLUCOSE; Start 02/23/16 at 23:15 Glucose (Glutose) 22.5 gm Q15M PRN PO DECREASED GLUCOSE; Start 02/23/16 at 23: 15 Dextrose (D50w Syringe) 25 ml Q15M PRN IV DECREASED GLUCOSE; Start 02/23/16 at 23:15 Dextrose (D50w Syringe) 50 ml Q15M PRN IV DECREASED GLUCOSE; Start 02/23/16 at 23:15 Glucagon (Glucagen) 1 mg Q15M PRN IM DECREASED GLUCOSE; Start 02/23/16 at 23:15 Glucose 15 gm 15 gm Q15M PRN BUCCAL DECREASED GLUCOSE; Start 02/23/16 at 23:15 Levetiracetam/ Sodium Chloride (Keppra Iv/NS) 110 ml @ 440 mls/hr BID IVPB Last administered on 02/26/16at 08:58; Admin Dose 440 MLS/HR; Start 02/24/16 at 01:00 Miscellaneous Information (*Rx Drug Level Order Reminder*) 1 ONCE ONCE XX ; Start 02/27/16 at 10:00; Stop 02/27/16 at 10:01 Insulin Aspart (Novolog Insulin Pen) NOVOLOG *MILD* ALGORI... Q6 SC ; Start 03/01 at 18:00 Metoprolol Tartrate (Lopressor) 75 mg Q8 PO ; Start 02/26/16 at 22:00 JAIRON MCNAIR MD Feb 26, 2016 15:06
--- NOTE | 2016-02-26 15:51 | PN ---
DATE: 02/26/2016 SUBJECTIVE: This is an infectious disease progress note. No acute changes. The patient remains int ubated. He is in no distress. No fevers. VITAL SIGNS: Temperature 98.7, pulse 85, respirations 20, blood pressure 220/101, saturation 100 on vent. DIAGNOSTICS: Chest x-ray revealed improved lung volumes with decreased right lung infiltrate and pr obable stable left lower lobe atelectasis or infiltrate. INDWELLINGS: Endotracheal tube, NG tube, Smalls, PICC line placed on 02/21/2016. MICROBIOLOGY: Sputum culture grew E. coli and Angelina albicans. ANTIMICROBIALS: 1. The patient is on Zosyn. 2. Fluconazole. 3. Vancomycin day #7. PHYSICAL EXAMINATION: GENERAL: This is an obese, well-developed, middle-aged man who is nonverbal, noncommunicative. Th e patient is lying comfortably in bed. HEENT: Head atraumatic, normocephalic. Sclerae anicteric. Buccal mucosa dry. NECK: Supple, trachea midline. CHEST: Rise symmetrical. Breath sounds diminished to bases. HEART: S1, S2. ABDOMEN: Soft. Bowel tones hypoactive. EXTREMITIES: Without cyanosis. ASSESSMENT: 1. Acute hypoxemic respiratory failure, status post self-extubated yesterday and again reintubated with a sputum culture grew Escherichia coli Angelina albicans. 2. Hypertensive urgency. 3. Acute encephalopathy with new onset seizures. 4. Type B aortic dissection. 5. Acute renal failure. PLAN: The patient remains unchanged. We are going to discontinue vancomycin, keep him on Zosyn and Diflucan. Continue vent management per pulmonary. Continue management of his hypertension and fol low neurology recommendations. Dictated By: HUSAM SANFORD JOURNEYMAN MOLDER for YESIKA HESS MD NI/NTS Conf#: [id number] DID#: [id number]
[2016-02-26] MEDS: hydrALAzine 20 MG INJ IV PRN (16:35)
[2016-02-26] MEDS: SOD CHLORIDE 0.9% 1,000 ML IV SCH (17:46)
--- NOTE | 2016-02-26 19:31 | CONS ---
Date/Time of Note Date/Time of Note DATE: 02/26/16 TIME: 19:28 Assessment/Plan Assessment/Plan Chief Complaint/Hosp Course Additional Assessment/Plan 1. Acute kidney injury, likely secondary to acute tubular necrosis from contrast-induced nephropathy and also secondary to ischemic acute tubular necrosis from aortic dissection. 2. A type B Helio aortic dissection. 3. Hypertensive emergency on multiple drips. 4. acute resp failiure intubated on ventilator plan ck lytes Problems: Consultation Date/Type/Reason Admit Date/Time Feb 18, 2016 at 09:14 Initial Consult Date 02/26/16 Type of Consultation: renal Referring Provider: ANAYA BREWSTER MD, [facility] 24 HR Interval Summary Subjective hx not possible: other (on vent) Exam/Review of Systems Vital Signs Vitals Vital Signs Date Time Temp Pulse Resp B/P Pulse Ox O2 Delivery O2 Flow Rate FiO2 02/26/16 19:16 90 22 100 30 02/26/16 19:00 134/69 Mechanical Ventilator 02/26/16 16:00 99.3 Intake and Output 02/25/16 02/25/16 02/26/16 15:00 23:00 07:00 Intake Total 1137.5 ml 1254.582 ml 1114.786 ml Output Total 775 ml 690 ml 660 ml Balance 362.5 ml 564.582 ml 454.786 ml Exam Respiratory: clear to auscultation Cardiovascular: regular rate and rhythm Gastrointestinal: bowel sounds (pos), soft Extremities: edema (tr) Neurological: unresponsive Results Result Diagram: 02/26/16 0430 02/26/16 0430 Results 24 hrs Laboratory Tests Test 02/25/16 20:56 02/26/16 00:45 02/26/16 04:30 02/26/16 05:00 Bedside Glucose 122 113 Anion Gap 14 Basophils # 0.3 H Basophils % 2.0 Blood Morphology Comment Blood Urea Nitrogen 24 H Calcium Level 7.6 L Carbon Dioxide Level 23 Chloride Level 107 Creatinine 1.46 H Eosinophils # 0.6 H Eosinophils % 4.0 Glucose Level 128 Hematocrit 27.4 L Hemoglobin 9.1 L Lymphocytes # 1.2 Lymphocytes % 8.2 L Mean Corpuscular Hemoglobin 26.4 L Mean Corpuscular Hemoglobin Concent 33.1 Mean Corpuscular Volume 79.7 L Mean Platelet Volume 8.5 Monocytes # 1.5 H Monocytes % 10.3 Neutrophils # 11.2 H Neutrophils % 75.5 Nucleated Red Blood Cells # 0.0 Nucleated Red Blood Cells % 0.0 Platelet Count 260 Potassium Level 3.5 Red Blood Count 3.43 L Red Cell Distribution Width 18.0 H Sodium Level 140 White Blood Count 14.8 H Arterial Blood HCO3 23.2 Arterial Blood Base Excess -1.2 Arterial Blood Oxygen Saturation 97.6 Jovanny Test ACCEPTAB Arterial Blood Gas Puncture Site Right Radial Arterial Blood Carboxyhemoglobin 0.3 Arterial Blood Date Drawn 02/26/2016 4:56:56 AM Arterial Blood Methemoglobin 0.3 Arterial Blood pCO2 (Temp correct) 37.4 Arterial Blood pH (Temp corrected) 7.410 Arterial Blood pO2 (Temp corrected) 118.5 H Blood Gas A-a O2 Differential 51.5 H Blood Gas Actual Respiration Rate 20 Blood Gas Inspiratory Pressure 31.0 Blood Gas Low PEEP Setting 10.0 Blood Gas Modality VENT - AC Blood Gas Notified Time 02/26/2016 5:06:32 AM Blood Gas Notified Whom BR Blood Gas Respiration Rate 20.0 Blood Gas Specimen Source Blood arterial Blood Gas Temperature 37.0 Blood Gas Tidal Volume 550.0 FiO2 30.0 Oxyhemoglobin Percent 97.0 Total Hemoglobin 10.3 L Test 02/26/16 05:12 02/26/16 09:02 02/26/16 13:09 02/26/16 17:45 Bedside Glucose 126 122 138 120 Medications Medications Current Medications Sodium Chloride (NS) 1,000 ml @ 50 mls/hr Q20H IV Last administered on at 17:46; Admin Dose 50 MLS/HR; Start 02/18/16 at 09:13 Ondansetron HCl (Zofran Inj) 4 mg Q6H PRN IV NAUSEA AND/OR VOMITING; Start 02/18/16 at 09:30 Acetaminophen (Tylenol Supp) 650 mg Q4H PRN [place] PAIN LEVEL 1-3 OR FEVER Last administered on 02/24/16at 14:32; Admin Dose 650 MG; Start 02/18/16 at 09:30 Morphine Sulfate (morphine) 2 mg Q4H PRN IV PAIN LEVEL 7-10 Last administered on 02/21/16at 09:35; Admin Dose 2 MG; Start 02/18/16 at 09:30 Bisacodyl (Dulcolax Supp) 10 mg DAILY PRN [place] CONSTIPATION; Start 02/18/16 at 09 :30 Pantoprazole (Protonix Iv) 40 mg DAILY@06 IV Last administered on 02/26/16 06 :01; Admin Dose 40 MG; Start 02/19/16 at 06:00 Amlodipine Besylate (Norvasc) 5 mg BID PO Last administered on 02/26/16 08:57 ; Admin Dose 5 MG; Start 02/20/16 at 21:00 Hydralazine HCl (Apresoline) 10 mg Q6H PRN IV ELEVATED SYSTOLIC BP Last administered on 02/26/16 16:35; Admin Dose 10 MG; Start 02/20/16 at 22:00 Minoxidil 5 mg 5 mg BID PO Last administered on 02/26/16 08:57; Admin Dose 5 MG; Start 02/20/16 at 22:00 Nicardipine HCl/ Dextrose (Cardene Iv/D5W) 250 ml @ 50 mls/hr TITRATE IV Last administered on 02/24/16 06:36; Admin Dose 50 MLS/HR; Start 02/21/16 at 12:30 Metoprolol Tartrate 5 mg 5 mg Q4H PRN IV HR>55 Hold SBP<100 Last administered on 02/26/16 18:34; Admin Dose 5 MG; Start 02/21/16 at 11:30 Propofol 100 ml @ 3.189 mls/ hr Q12H IV Last administered on 02/26/16 13:40 ; Admin Dose 12.756 MLS/HR; Start 02/21/16 at 16:30 Fentanyl/Dextrose (D5W) 100 ml @ 0 mls/hr TITRATE IV Last administered on 02/25 18:38; Admin Dose 10 MLS/HR; Start 02/21/16 at 16:30 IV Flush (NS 10 ml) 10 ml PRN PRN IV IV PROTOCOL; Start 02/21/16 at 18:30 Ferrous Sulfate 300 mg 300 mg BID GTB Last administered on 02/26/16 08:57; Admin Dose 300 MG; Start 02/22/16 at 10:00 Vancomycin HCl/ Sodium Chloride (Vancocin/NS) 150 ml @ 75 mls/hr Q12H IVPB Last administered on 02/26/16 10:53; Admin Dose 75 MLS/HR; Start 02/22/16 at 23:00 Heparin Sodium (Porcine) (Heparin (5000 Units/0.5 ml)) 5,000 unit BID SC Last administered on 02/26/16at 09:00; Admin Dose 5,000 UNIT; Start 02/22/16 at 21:00 Lorazepam (Ativan) 1 mg Q1H PRN IV ANXIETY Last administered on 02/26/16at 15: 02; Admin Dose 1 MG; Start 02/23/16 at 11:30 Hydralazine HCl 25 mg 25 mg Q8 PO Last administered on 02/26/16at 13:33; Admin Dose 25 MG; Start 02/23/16 at 14:00 Piperacillin Sod/ Tazobactam Sod 50 ml @ 100 mls/hr Q6 IVPB Last administered on 02/26/16at 17:46; Admin Dose 100 MLS/HR; Start 02/23/16 at 18:00 Fluconazole/ Sodium Chloride (Diflucan 100 Mg/ NS (Pmx)) 50 ml @ 50 mls/hr Q24H IVPB Last administered on 02/26/16at 13:33; Admin Dose 50 MLS/HR; Start at 14:00 Miscellaneous Information 1 ea NOTE XX ; Start 02/23/16 at 23:15 Glucose (Glutose) 15 gm Q15M PRN PO DECREASED GLUCOSE; Start 02/23/16 at 23:15 Glucose (Glutose) 22.5 gm Q15M PRN PO DECREASED GLUCOSE; Start 02/23/16 at 23: 15 Dextrose (D50w Syringe) 25 ml Q15M PRN IV DECREASED GLUCOSE; Start 02/23/16 at 23:15 Dextrose (D50w Syringe) 50 ml Q15M PRN IV DECREASED GLUCOSE; Start 02/23/16 at 23:15 Glucagon (Glucagen) 1 mg Q15M PRN IM DECREASED GLUCOSE; Start 02/23/16 at 23:15 Glucose 15 gm 15 gm Q15M PRN BUCCAL DECREASED GLUCOSE; Start 02/23/16 at 23:15 Levetiracetam/ Sodium Chloride (Keppra Iv/NS) 110 ml @ 440 mls/hr BID IVPB Last administered on 02/26/16at 08:58; Admin Dose 440 MLS/HR; Start 02/24/16 at 01:00 Miscellaneous Information (*Rx Drug Level Order Reminder*) 1 ONCE ONCE XX ; Start 02/27/16 at 10:00; Stop 02/27/16 at 10:01 Insulin Aspart (Novolog Insulin Pen) NOVOLOG *MILD* ALGORI... Q6 SC ; Start 03/01 at 18:00 Metoprolol Tartrate (Lopressor) 75 mg Q8 PO ; Start 02/26/16 at 22:00 SASHA OWEN MD Feb 26, 2016 19:31
[2016-02-26] MEDS: METOPROLOL 25 MG TAB PO SCH (21:40)
[2016-02-27] VITALS (82 sets, daily range): BP systolic 107–235; BP diastolic 61–105; PULSE 72–111; RESP 11–28
[2016-02-27] MEDS: PROPOFOL 100 ML IV SCH ×6 (01:33→23:05)
[2016-02-27] MEDS: ALBUTEROL HFA 8 GM INHALER INH SCH ×4 (01:45→19:24)
[2016-02-27] MEDS: IPRATROPIUM (HFA) 12.9 GM INHALER INH SCH ×4 (01:45→19:24)
[2016-02-27] MEDS: FENTAnyl 1,000 MCG in DEXTROSE 5% 80 ML IV SCH ×3 (03:52→23:04)
[2016-02-27] MEDS: PIPER-TAZO 2.25 GM (PMX) 50 ML IVPB SCH ×2 (05:43→11:10)
[2016-02-27] MEDS: PANTOPRAZOLE 40 MG INJ IV SCH (05:43)
[2016-02-27] MEDS: METOPROLOL 25 MG TAB PO SCH ×3 (05:44→21:40)
[2016-02-27] MEDS: INSULIN ASPART [NOVOLOG] 3 ML PEN SC SCH ×4 (05:46→23:48)
[2016-02-27 05:57] LABS: POTASSIUM 3.6 mmol/L (3.5-5.1)
[2016-02-27 05:59] LABS: CREATININE 1.49 mg/dl (0.61-1.24)
[2016-02-27 06:00] LABS: CALCIUM 7.9 mg/dl (8.4-10.2)
[2016-02-27 06:14] LABS: BASOPHIL # 0.1 10^3/ul (0.0-0.1); BASOPHILS % 0.9 % (0.0-2.0); EOSINOPHILS # 0.6 10^3/ul (0.0-0.5); EOSINOPHILS % 4.6 % (0.0-7.0); HEMATOCRIT 27.3 % (42.0-52.0); HEMOGLOBIN 9.1 g/dl (14.0-18.0); LYMPHOCYTES # 0.8 10^3/ul (0.8-2.9); LYMPHOCYTES % 5.9 % (15.0-51.0); MEAN CORPUSCULAR HEMOGLOBIN 26.8 pg (29.0-33.0); MEAN CORPUSCULAR HGB CONC 33.4 g/dl (32.0-37.0); MEAN CORPUSCULAR VOLUME 80.2 fl (82.0-101.0); MEAN PLATELET VOLUME 8.3 fl (7.4-10.4); MONOCYTE # 1.5 10^3/ul (0.3-0.9); MONOCYTES % 11.7 % (0.0-11.0); NEUTROPHIL # 10.2 10^3/ul (1.6-7.5); NEUTROPHILS % 76.9 % (39.0-77.0); PLATELET COUNT 294 10^3/UL (140-440); RED CELL DISTRIBUTION WIDTH 17.7 % (11.5-14.5); UNCORRECTED WBC 13.2 10^3/ul (4.8-10.8); WHITE BLOOD COUNT 13.2 10^3/ul (4.8-10.8)
[2016-02-27 06:25] LABS: CONDITION 1; LH ANALYZER COMMENTS 1
[2016-02-27 06:32] LABS: MAGNESIUM 2.2 mg/dl (1.7-2.5); PHOSPHORUS 4.1 mg/dl (2.5-4.9)
[2016-02-27] MEDS: AMLODIPINE 5 MG TAB PO SCH ×2 (08:25→20:58)
[2016-02-27] MEDS: FERROUS SULFATE 60 MG/ML 5ML CUP GTB SCH ×2 (08:25→20:57)
[2016-02-27] MEDS: MINOXIDIL 2.5 MG TAB PO SCH ×2 (08:25→20:57)
[2016-02-27] MEDS: HEPARIN 5,000 UNIT/0.5 ML SYG SC SCH ×2 (08:26→21:00)
[2016-02-27] MEDS: LEVETIRACETAM IV 1,000 MG in SOD CHLORIDE 0.9% 100 ML IVPB SCH ×2 (08:29→20:58)
[2016-02-27] MEDS: FUROSEMIDE 20 MG INJ IV SCH (09:15)
[2016-02-27] MEDS: ALBUMIN HUMAN 25% 100 ML IV SCH (09:15)
--- NOTE | 2016-02-27 09:32 | PN ---
Date/Time of Note Date/Time of Note DATE: 02/27/16 TIME: 09:32 Assessment/Plan VTE Prophylaxis VTE Prophylaxis Intervention: heparin Lines/Catheters IV [facility] PICC Line Central line still needed: Yes Urinary Cath still in place: Yes Reason Cath still needed: other (indicate) Assessment/Plan Chief Complaint/Hosp Course 1. Type B aortic dissection. Continue blood pressure control. Continue ICU monitoring. Status post evaluation by vascular surgery. No surgical intervention as of now. 2. Accelerated hypertension. Currently controlled. On antihypertensives. 3. Acute hypoxic respiratory failure. Etiology unclear. Most probably secondary to aspiration. Continue ventilator support as per pulmonary. 4. Aspiration pneumonia. Continue antibiotics as per infectious diseases. 5. Acute kidney injury, most probably secondary to hemodynamics. Nephrology following. Use nephrotoxic drugs with caution. 6. Left cephalic vein thrombosis. Continue elevation. No need for therapeutic anticoagulation since this is the superficial vein. 7. Microcytic hypochromic anemia. Iron panel showing iron deficiency. Continue iron supplements. 8. Acute encephalopathy, most probably metabolic in origin. Electroencephalography showing background slowing suggesting bihemispheric subcortical dysfunction, possibly epileptiform activity. The patient was started on anticonvulsants for the same. 9. Sepsis secondary to gram-positive bacteremia. Latest blood cultures are negative. On antibiotics as per infectious diseases. 10. Fluids, electrolytes, and nutrition. Continue NG tube feedings. 11. Deep venous thrombosis prophylaxis. Subcutaneous heparin. 12. Gastrointestinal prophylaxis. Proton pump inhibitor. PLAN: Continue intensive care unit monitoring. Ventilator weaning as per pulmonary. Case discussed with Dr. Hernandez. Critical care time 35 minutes. Problems: Subjective 24 Hr Interval Summary Free Text/Dictation Patient remains on the ventilator. Vital signs stable. Exam/Review of Systems Vital Signs Vitals Vital Signs Date Time Temp Pulse Resp B/P Pulse Ox O2 Delivery O2 Flow Rate FiO2 02/27/16 09:00 78 20 123/71 100 Mechanical Ventilator 02/27/16 08:00 99.2 02/27/16 08:00 30 Intake and Output 02/26/16 02/26/16 02/27/16 15:00 23:00 07:00 Intake Total 1183 ml 1300.835 ml 1486.795 ml Output Total 890 ml 785 ml 680 ml Balance 293 ml 515.835 ml 806.795 ml Exam HEENT: Head normocephalic and atraumatic. Eyes: Anicteric sclerae. Conjunctivae clear. ENT: Nasal septum is midline. Oral mucosa is dry. NECK: Short and obese. Unable to visualize any neck veins. CARDIAC: Regular rate and rhythm. S1 and S2 heard. ABDOMEN: Protruded. Soft. Bowel sounds hypoactive in all 4 quadrants. GENITOURINARY: The patient has a Smalls catheter in place. EXTREMITIES: No cyanosis, no clubbing. Edema of bilateral lower extremities and bilateral upper extremities. Right upper extremity PICC line in place. Peripheral pulses palpable. NEUROLOGIC: The patient is sedated. Results Result Diagram: 02/27/16 0445 02/27/16 0445 Results 24 hrs Laboratory Tests Test 02/26/16 13:09 02/26/16 17:45 02/26/16 23:31 02/27/16 04:45 Bedside Glucose 138 120 190 Anion Gap 13 Basophils # 0.1 Basophils % 0.9 Blood Morphology Comment Blood Urea Nitrogen 22 H Calcium Level 7.9 L Carbon Dioxide Level 22 Chloride Level 109 Creatinine 1.49 H Eosinophils # 0.6 H Eosinophils % 4.6 Glucose Level 143 Hematocrit 27.3 L Hemoglobin 9.1 L Lymphocytes # 0.8 Lymphocytes % 5.9 L Magnesium Level 2.2 Mean Corpuscular Hemoglobin 26.8 L Mean Corpuscular Hemoglobin Concent 33.4 Mean Corpuscular Volume 80.2 L Mean Platelet Volume 8.3 Monocytes # 1.5 H Monocytes % 11.7 H Neutrophils # 10.2 H Neutrophils % 76.9 Nucleated Red Blood Cells # 0.0 Nucleated Red Blood Cells % 0.0 Phosphorus Level 4.1 Platelet Count 294 Potassium Level 3.6 Red Blood Count 3.40 L Red Cell Distribution Width 17.7 H Sodium Level 140 White Blood Count 13.2 H Test 02/27/16 05:20 Bedside Glucose 146 Medications Medications Current Medications Sodium Chloride (NS) 1,000 ml @ 50 mls/hr Q20H IV Last administered on at 17:46; Admin Dose 50 MLS/HR; Start 02/18/16 at 09:13 Ondansetron HCl (Zofran Inj) 4 mg Q6H PRN IV NAUSEA AND/OR VOMITING; Start 02/18/16 at 09:30 Acetaminophen (Tylenol Supp) 650 mg Q4H PRN [place] PAIN LEVEL 1-3 OR FEVER Last administered on 02/24/16 14:32; Admin Dose 650 MG; Start 02/18/16 at 09:30 Morphine Sulfate (morphine) 2 mg Q4H PRN IV PAIN LEVEL 7-10 Last administered on 02/21/16 09:35; Admin Dose 2 MG; Start 02/18/16 at 09:30 Bisacodyl (Dulcolax Supp) 10 mg DAILY PRN [place] CONSTIPATION; Start 02/18/16 at 09 :30 Pantoprazole (Protonix Iv) 40 mg DAILY@06 IV Last administered on 02/27/16 05 :43; Admin Dose 40 MG; Start 02/19/16 at 06:00 Amlodipine Besylate (Norvasc) 5 mg BID PO Last administered on 02/27/16 08:25 ; Admin Dose 5 MG; Start 02/20/16 at 21:00 Hydralazine HCl (Apresoline) 10 mg Q6H PRN IV ELEVATED SYSTOLIC BP Last administered on 02/26/16 16:35; Admin Dose 10 MG; Start 02/20/16 at 22:00 Minoxidil (Loniten) 5 mg BID PO Last administered on 02/27/16 08:25; Admin Dose 5 MG; Start 02/20/16 at 22:00 Metoprolol Tartrate 5 mg 5 mg Q4H PRN IV HR>55 Hold SBP<100 Last administered on 02/26/16 18:34; Admin Dose 5 MG; Start 02/21/16 at 11:30 Propofol 100 ml @ 3.189 mls/ hr Q12H IV Last administered on 02/27/16 06:33 ; Admin Dose 19.491 MLS/HR; Start 02/21/16 at 16:30 Fentanyl/Dextrose (D5W) 100 ml @ 0 mls/hr TITRATE IV Last administered on 02/26 03:52; Admin Dose 10 MLS/HR; Start 02/21/16 at 16:30 IV Flush (NS 10 ml) 10 ml PRN PRN IV IV PROTOCOL; Start 02/21/16 at 18:30 Ferrous Sulfate 300 mg 300 mg BID GTB Last administered on 02/27/16 08:25; Admin Dose 300 MG; Start 02/22/16 at 10:00 Vancomycin HCl/ Sodium Chloride (Vancocin/NS) 150 ml @ 75 mls/hr Q12H IVPB Last administered on 02/26/16at 22:49; Admin Dose 75 MLS/HR; Start 02/22/16 at 23:00 Heparin Sodium (Porcine) (Heparin (5000 Units/0.5 ml)) 5,000 unit BID SC Last administered on 02/27/16at 08:26; Admin Dose 5,000 UNIT; Start 02/22/16 at 21:00 Lorazepam (Ativan) 1 mg Q1H PRN IV ANXIETY Last administered on 02/26/16at 15: 02; Admin Dose 1 MG; Start 02/23/16 at 11:30 Hydralazine HCl 25 mg 25 mg Q8 PO Last administered on 02/27/16at 05:44; Admin Dose 25 MG; Start 02/23/16 at 14:00 Piperacillin Sod/ Tazobactam Sod 50 ml @ 100 mls/hr Q6 IVPB Last administered on 02/27/16at 05:43; Admin Dose 100 MLS/HR; Start 02/23/16 at 18:00 Fluconazole/ Sodium Chloride (Diflucan 100 Mg/ NS (Pmx)) 50 ml @ 50 mls/hr Q24H IVPB Last administered on 02/26/16at 13:33; Admin Dose 50 MLS/HR; Start at 14:00 Miscellaneous Information 1 ea NOTE XX ; Start 02/23/16 at 23:15 Glucose (Glutose) 15 gm Q15M PRN PO DECREASED GLUCOSE; Start 02/23/16 at 23:15 Glucose (Glutose) 22.5 gm Q15M PRN PO DECREASED GLUCOSE; Start 02/23/16 at 23: 15 Dextrose (D50w Syringe) 25 ml Q15M PRN IV DECREASED GLUCOSE; Start 02/23/16 at 23:15 Dextrose (D50w Syringe) 50 ml Q15M PRN IV DECREASED GLUCOSE; Start 02/23/16 at 23:15 Glucagon (Glucagen) 1 mg Q15M PRN IM DECREASED GLUCOSE; Start 02/23/16 at 23:15 Glucose 15 gm 15 gm Q15M PRN BUCCAL DECREASED GLUCOSE; Start 02/23/16 at 23:15 Levetiracetam/ Sodium Chloride (Keppra Iv/NS) 110 ml @ 440 mls/hr BID IVPB Last administered on 02/27/16 08:29; Admin Dose 440 MLS/HR; Start 02/24/16 at 01:00 Miscellaneous Information (*Rx Drug Level Order Reminder*) 1 ONCE ONCE XX ; Start 02/27/16 at 10:00; Stop 02/27/16 at 10:01 Insulin Aspart (Novolog Insulin Pen) NOVOLOG *MILD* ALGORI... Q6 SC Last administered on 02/27/16at 05:46; Admin Dose 1 UNIT; Start 02/26/16 at 18:00 Metoprolol Tartrate 75 mg 75 mg Q8 PO Last administered on 02/27/16at 05:44; Admin Dose 75 MG; Start 02/26/16 at 22:00 Albumin Human (Albumin Human 25%) 100 ml @ 100 mls/hr DAILY IV Last administered on 02/27/16at 09:15; Admin Dose 100 MLS/HR; Start 02/27/16 at 09: 00; Stop 02/29/16 at 09:59 Furosemide (Lasix) 20 mg DAILY IV Last administered on 02/27/16at 09:15; Admin Dose 20 MG; Start 02/27/16 at 09:00 KEITH CARIG NP Feb 27, 2016 09:32
--- NOTE | 2016-02-27 11:01 | CONS ---
Date/Time of Note Date/Time of Note DATE: 02/27/16 TIME: 10:59 Consult Date/Type/Reason Admit Date/Time Feb 18, 2016 at 09:14 Type of Consultation: Pulm Ordering Provider: ANAYA BREWSTER MD, [facility] Subjective Off sedation this morning, agitated, not following commands. Objective Vital Signs Date Time Temp Pulse Resp B/P Pulse Ox O2 Delivery O2 Flow Rate FiO2 02/27/16 09:30 78 20 136/82 100 CPAP 02/27/16 08:00 99.2 02/27/16 08:00 30 Intake and Output 02/26/16 02/26/16 02/27/16 15:00 23:00 07:00 Intake Total 1183 ml 1300.835 ml 1486.795 ml Output Total 890 ml 785 ml 680 ml Balance 293 ml 515.835 ml 806.795 ml PHYSICAL EXAMINATION GENERAL: A well-nourished well-developed gentleman intubated on mechanical ventilation. VITAL SIGNS: see below. HEENT: Pupils equal, round, and reactive to light. CARDIAC: S1, S2, tachycardia. CHEST: Diminished air entry bilaterally. ABDOMEN: Mildly distended. No bowel sounds. EXTREMITIES: No cyanosis, clubbing edema +1 upper extremities NEUROLOGIC: generalized weakness. Results/Medications Result Diagram: 02/27/16 0445 02/27/16 0445 Results 24 hrs Laboratory Tests Test 02/26/16 13:09 02/26/16 17:45 02/26/16 23:31 02/27/16 04:45 Bedside Glucose 138 120 190 Anion Gap 13 Basophils # 0.1 Basophils % 0.9 Blood Morphology Comment Blood Urea Nitrogen 22 H Calcium Level 7.9 L Carbon Dioxide Level 22 Chloride Level 109 Creatinine 1.49 H Eosinophils # 0.6 H Eosinophils % 4.6 Glucose Level 143 Hematocrit 27.3 L Hemoglobin 9.1 L Lymphocytes # 0.8 Lymphocytes % 5.9 L Magnesium Level 2.2 Mean Corpuscular Hemoglobin 26.8 L Mean Corpuscular Hemoglobin Concent 33.4 Mean Corpuscular Volume 80.2 L Mean Platelet Volume 8.3 Monocytes # 1.5 H Monocytes % 11.7 H Neutrophils # 10.2 H Neutrophils % 76.9 Nucleated Red Blood Cells # 0.0 Nucleated Red Blood Cells % 0.0 Phosphorus Level 4.1 Platelet Count 294 Potassium Level 3.6 Red Blood Count 3.40 L Red Cell Distribution Width 17.7 H Sodium Level 140 White Blood Count 13.2 H Test 02/27/16 05:20 Bedside Glucose 146 Medications Current Medications Sodium Chloride (NS) 1,000 ml @ 50 mls/hr Q20H IV Last administered on 17:46; Admin Dose 50 MLS/HR; Start 02/18/16 at 09:13 Ondansetron HCl (Zofran Inj) 4 mg Q6H PRN IV NAUSEA AND/OR VOMITING; Start 02/18/16 at 09:30 Acetaminophen (Tylenol Supp) 650 mg Q4H PRN [place] PAIN LEVEL 1-3 OR FEVER Last administered on 02/24/16at 14:32; Admin Dose 650 MG; Start 02/18/16 at 09:30 Morphine Sulfate (morphine) 2 mg Q4H PRN IV PAIN LEVEL 7-10 Last administered on 02/21/16at 09:35; Admin Dose 2 MG; Start 02/18/16 at 09:30 Bisacodyl (Dulcolax Supp) 10 mg DAILY PRN [place] CONSTIPATION; Start 02/18/16 at 09 :30 Pantoprazole (Protonix Iv) 40 mg DAILY@06 IV Last administered on 02/27/16at 05 :43; Admin Dose 40 MG; Start 02/19/16 at 06:00 Amlodipine Besylate (Norvasc) 5 mg BID PO Last administered on 02/27/16at 08:25 ; Admin Dose 5 MG; Start 02/20/16 at 21:00 Hydralazine HCl (Apresoline) 10 mg Q6H PRN IV ELEVATED SYSTOLIC BP Last administered on 02/26/16at 16:35; Admin Dose 10 MG; Start 02/20/16 at 22:00 Minoxidil (Loniten) 5 mg BID PO Last administered on 02/27/16 08:25; Admin Dose 5 MG; Start 02/20/16 at 22:00 Metoprolol Tartrate 5 mg 5 mg Q4H PRN IV HR>55 Hold SBP<100 Last administered on 02/26/16at 18:34; Admin Dose 5 MG; Start 02/21/16 at 11:30 Propofol 100 ml @ 3.189 mls/ hr Q12H IV Last administered on 02/27/16 06:33 ; Admin Dose 19.491 MLS/HR; Start 02/21/16 at 16:30 Fentanyl/Dextrose (D5W) 100 ml @ 0 mls/hr TITRATE IV Last administered on 02/26at 03:52; Admin Dose 10 MLS/HR; Start 02/21/16 at 16:30 IV Flush (NS 10 ml) 10 ml PRN PRN IV IV PROTOCOL; Start 02/21/16 at 18:30 Ferrous Sulfate 300 mg 300 mg BID GTB Last administered on 02/27/16 08:25; Admin Dose 300 MG; Start 02/22/16 at 10:00 Vancomycin HCl/ Sodium Chloride (Vancocin/NS) 150 ml @ 75 mls/hr Q12H IVPB Last administered on 02/26/16 22:49; Admin Dose 75 MLS/HR; Start 02/22/16 at 23:00 Heparin Sodium (Porcine) (Heparin (5000 Units/0.5 ml)) 5,000 unit BID SC Last administered on 02/27/16 08:26; Admin Dose 5,000 UNIT; Start 02/22/16 at 21:00 Lorazepam (Ativan) 1 mg Q1H PRN IV ANXIETY Last administered on 02/26/16 15: 02; Admin Dose 1 MG; Start 02/23/16 at 11:30 Hydralazine HCl 25 mg 25 mg Q8 PO Last administered on 02/27/16 05:44; Admin Dose 25 MG; Start 02/23/16 at 14:00 Piperacillin Sod/ Tazobactam Sod 50 ml @ 100 mls/hr Q6 IVPB Last administered on 02/27/16 05:43; Admin Dose 100 MLS/HR; Start 02/23/16 at 18:00 Fluconazole/ Sodium Chloride (Diflucan 100 Mg/ NS (Pmx)) 50 ml @ 50 mls/hr Q24H IVPB Last administered on 02/26/16 13:33; Admin Dose 50 MLS/HR; Start at 14:00 Miscellaneous Information 1 ea NOTE XX ; Start 02/23/16 at 23:15 Glucose (Glutose) 15 gm Q15M PRN PO DECREASED GLUCOSE; Start 02/23/16 at 23:15 Glucose (Glutose) 22.5 gm Q15M PRN PO DECREASED GLUCOSE; Start 02/23/16 at 23: 15 Dextrose (D50w Syringe) 25 ml Q15M PRN IV DECREASED GLUCOSE; Start 02/23/16 at 23:15 Dextrose (D50w Syringe) 50 ml Q15M PRN IV DECREASED GLUCOSE; Start 02/23/16 at 23:15 Glucagon (Glucagen) 1 mg Q15M PRN IM DECREASED GLUCOSE; Start 02/23/16 at 23:15 Glucose 15 gm 15 gm Q15M PRN BUCCAL DECREASED GLUCOSE; Start 02/23/16 at 23:15 Levetiracetam/ Sodium Chloride (Keppra Iv/NS) 110 ml @ 440 mls/hr BID IVPB Last administered on 02/27/16at 08:29; Admin Dose 440 MLS/HR; Start 02/24/16 at 01:00 Insulin Aspart (Novolog Insulin Pen) NOVOLOG *MILD* ALGORI... Q6 SC Last administered on 02/27/16at 05:46; Admin Dose 1 UNIT; Start 02/26/16 at 18:00 Metoprolol Tartrate 75 mg 75 mg Q8 PO Last administered on 02/27/16at 05:44; Admin Dose 75 MG; Start 02/26/16 at 22:00 Albumin Human (Albumin Human 25%) 100 ml @ 100 mls/hr DAILY IV Last administered on 02/27/16at 09:15; Admin Dose 100 MLS/HR; Start 02/27/16 at 09: 00; Stop 02/29/16 at 09:59 Furosemide (Lasix) 20 mg DAILY IV Last administered on 02/27/16at 09:15; Admin Dose 20 MG; Start 02/27/16 at 09:00 Assessment/Plan Chief Complaint/Hosp Course IMPRESSION 1. Hypertensive Emergency 2. Type B Aortic Dissection 3. Encephalopathy, possibly secondary to antihypertensive medications. Questionable new onset seizures rule out CVA 4. Aspiration pneumonia with hypoxemic respiratory failure. 5. FARRUKH RECS: 1. Vent support with cpap weaning trial. 2. Continue BP control 3. Sedation vacation. 4. Replete lytes 5. Am CXR/ABG 6. Abx per ID discussed with kym at bedside. Problems: ANAYA BREWSTER MD, [facility] Feb 27, 2016 11:01
[2016-02-27] MEDS: VANCOMYCIN 750 MG in SOD CHLORIDE 0.9% 150 ML IVPB SCH (11:36)
[2016-02-27] MEDS: SOD CHLORIDE 0.9% 1,000 ML IV SCH ×2 (13:11→18:57)
[2016-02-27] MEDS: CEFTRIAXONE 1 GM/50 ML (PMX) 50 ML IVPB SCH (13:22)
[2016-02-27] MEDS: FLUCONAZOLE 100 MG/NS (PMX) 50 ML IVPB SCH (13:49)
[2016-02-27] MEDS: metroNIDAZOLE 500 MG TAB PO SCH ×2 (13:53→21:40)
--- NOTE | 2016-02-27 15:33 | CONS ---
Date/Time of Note Date/Time of Note DATE: 02/27/16 TIME: 15:29 Assessment/Plan Assessment/Plan Additional Assessment/Plan 1.HTN emergency-NL EF by echo this admit-under reasonable control on PO medications only. Off all drips. Had some documented significantly elevated BP but was during sedation vacation and vent weaning per nurse at bedside - overall stable, BP better - con't supportive care. 2.Aortic dissection- type B - no intervention planned. Will monitor clinically. 3.abnl ecg-lateral TWI-negative troponin x 3 since admit 4.anxiety - stable - doubt ischemia. 5.ARF - Cr satble - avoid nephrotox meds. 6. Pericardial effusion by echo-small with NL EF Consultation Date/Type/Reason Admit Date/Time Feb 18, 2016 at 09:14 Type of Consultation: Pulm Referring Provider: ANAYA BREWSTER MD, [facility] 24 HR Interval Summary Free Text/Dictation NO acute change - pt stable - con't supportive care. ROS: No fever, no chills, no nausea, no vomiting, no diarrhea/constipation No recent weight changes No chest pain, no PND, no orthopnea No dizziness, blurred vision No thirst, no heat or cold intolerance (per nurse) Exam/Review of Systems Vital Signs Vitals Vital Signs Date Time Temp Pulse Resp B/P Pulse Ox O2 Delivery O2 Flow Rate FiO2 02/27/16 15:00 99.7 83 20 154/74 97 Mechanical Ventilator 02/27/16 11:20 30 Intake and Output 02/26/16 02/26/16 02/27/16 15:00 23:00 07:00 Intake Total 1183 ml 1300.835 ml 1486.795 ml Output Total 890 ml 785 ml 680 ml Balance 293 ml 515.835 ml 806.795 ml Exam General: WN/WD/NAD, AOx 0 HEENT: Unicetric/atraumatic/EOMI (does not follow commands) NECK: JVD elevated, no thyromegaly, intubated Lymph: no lymphadenopathy HEART: regular with no S3, II/ systolic murmur at apex LUNGS: Coarse sounds ABD: soft, NT, ND, +BS : Intact Neuro: non focal SKIN: chronic changes EXT: trace edema Results Result Diagram: 02/27/1644402/27/16444 Results 24 hrs Laboratory Tests Test 02/26/16 17:45 02/26/16 23:31 02/27/16 04:45 02/27/16 05:20 Bedside Glucose 120 190 146 Anion Gap 13 Basophils # 0.1 Basophils % 0.9 Blood Morphology Comment Blood Urea Nitrogen 22 H Calcium Level 7.9 L Carbon Dioxide Level 22 Chloride Level 109 Creatinine 1.49 H Eosinophils # 0.6 H Eosinophils % 4.6 Glucose Level 143 Hematocrit 27.3 L Hemoglobin 9.1 L Lymphocytes # 0.8 Lymphocytes % 5.9 L Magnesium Level 2.2 Mean Corpuscular Hemoglobin 26.8 L Mean Corpuscular Hemoglobin Concent 33.4 Mean Corpuscular Volume 80.2 L Mean Platelet Volume 8.3 Monocytes # 1.5 H Monocytes % 11.7 H Neutrophils # 10.2 H Neutrophils % 76.9 Nucleated Red Blood Cells # 0.0 Nucleated Red Blood Cells % 0.0 Phosphorus Level 4.1 Platelet Count 294 Potassium Level 3.6 Red Blood Count 3.40 L Red Cell Distribution Width 17.7 H Sodium Level 140 White Blood Count 13.2 H Test 02/27/16 10:13 02/27/16 11:10 Vancomycin Level Trough 16.7 Bedside Glucose 142 Medications Medications Current Medications Sodium Chloride (NS) 1,000 ml @ 50 mls/hr Q20H IV Last administered on at 17:46; Admin Dose 50 MLS/HR; Start 02/18/16 at 09:13 Ondansetron HCl (Zofran Inj) 4 mg Q6H PRN IV NAUSEA AND/OR VOMITING; Start 02/18/16 at 09:30 Acetaminophen (Tylenol Supp) 650 mg Q4H PRN [place] PAIN LEVEL 1-3 OR FEVER Last administered on 02/24/16at 14:32; Admin Dose 650 MG; Start 02/18/16 at 09:30 Morphine Sulfate (morphine) 2 mg Q4H PRN IV PAIN LEVEL 7-10 Last administered on 02/21/16at 09:35; Admin Dose 2 MG; Start 02/18/16 at 09:30 Bisacodyl (Dulcolax Supp) 10 mg DAILY PRN [place] CONSTIPATION; Start 02/18/16 at 09 :30 Pantoprazole (Protonix Iv) 40 mg DAILY@06 IV Last administered on 12/13/16at 05 :43; Admin Dose 40 MG; Start 02/19/16 at 06:00 Amlodipine Besylate (Norvasc) 5 mg BID PO Last administered on 02/27/16 08:25 ; Admin Dose 5 MG; Start 02/20/16 at 21:00 Hydralazine HCl (Apresoline) 10 mg Q6H PRN IV ELEVATED SYSTOLIC BP Last administered on 02/26/16 16:35; Admin Dose 10 MG; Start 02/20/16 at 22:00 Minoxidil (Loniten) 5 mg BID PO Last administered on 02/27/16 08:25; Admin Dose 5 MG; Start 02/20/16 at 22:00 Metoprolol Tartrate 5 mg 5 mg Q4H PRN IV HR>55 Hold SBP<100 Last administered on 02/26/16 18:34; Admin Dose 5 MG; Start 02/21/16 at 11:30 Propofol 100 ml @ 3.189 mls/ hr Q12H IV Last administered on 02/27/16 13:53 ; Admin Dose 19.134 MLS/HR; Start 02/21/16 at 16:30 Fentanyl/Dextrose (D5W) 100 ml @ 0 mls/hr TITRATE IV Last administered on 02/26 13:56; Admin Dose 10 MLS/HR; Start 02/21/16 at 16:30 IV Flush (NS 10 ml) 10 ml PRN PRN IV IV PROTOCOL; Start 02/21/16 at 18:30 Ferrous Sulfate (Feosol Liquid Cup) 300 mg BID GTB Last administered on 08:25; Admin Dose 300 MG; Start 02/22/16 at 10:00 Heparin Sodium (Porcine) (Heparin (5000 Units/0.5 ml)) 5,000 unit BID SC Last administered on 02/27/16 08:26; Admin Dose 5,000 UNIT; Start 02/22/16 at 21:00 Lorazepam (Ativan) 1 mg Q1H PRN IV ANXIETY Last administered on 02/26/16 15: 02; Admin Dose 1 MG; Start 02/23/16 at 11:30 Hydralazine HCl 25 mg 25 mg Q8 PO Last administered on 02/27/16 13:07; Admin Dose 25 MG; Start 02/23/16 at 14:00 Fluconazole/ Sodium Chloride (Diflucan 100 Mg/ NS (Pmx)) 50 ml @ 50 mls/hr Q24H IVPB Last administered on 02/27/16at 13:49; Admin Dose 50 MLS/HR; Start at 14:00 Miscellaneous Information 1 ea NOTE XX ; Start 02/23/16 at 23:15 Glucose (Glutose) 15 gm Q15M PRN PO DECREASED GLUCOSE; Start 02/23/16 at 23:15 Glucose (Glutose) 22.5 gm Q15M PRN PO DECREASED GLUCOSE; Start 02/23/16 at 23: 15 Dextrose (D50w Syringe) 25 ml Q15M PRN IV DECREASED GLUCOSE; Start 02/23/16 at 23:15 Dextrose (D50w Syringe) 50 ml Q15M PRN IV DECREASED GLUCOSE; Start 02/23/16 at 23:15 Glucagon (Glucagen) 1 mg Q15M PRN IM DECREASED GLUCOSE; Start 02/23/16 at 23:15 Glucose 15 gm 15 gm Q15M PRN BUCCAL DECREASED GLUCOSE; Start 02/23/16 at 23:15 Levetiracetam/ Sodium Chloride (Keppra Iv/NS) 110 ml @ 440 mls/hr BID IVPB Last administered on 02/27/16at 08:29; Admin Dose 440 MLS/HR; Start 02/24/16 at 01:00 Insulin Aspart (Novolog Insulin Pen) NOVOLOG *MILD* ALGORI... Q6 SC Last administered on 02/27/16at 11:11; Admin Dose 1 UNIT; Start 02/26/16 at 18:00 Metoprolol Tartrate 75 mg 75 mg Q8 PO Last administered on 02/27/16at 13:07; Admin Dose 75 MG; Start 02/26/16 at 22:00 Albumin Human (Albumin Human 25%) 100 ml @ 100 mls/hr DAILY IV Last administered on 02/27/16at 09:15; Admin Dose 100 MLS/HR; Start 02/27/16 at 09: 00; Stop 02/29/16 at 09:59 Furosemide 20 mg 20 mg DAILY IV Last administered on 02/27/16at 09:15; Admin Dose 20 MG; Start 02/27/16 at 09:00 Ceftriaxone Sodium (Rocephin) 50 ml @ 100 mls/hr Q24H IVPB Last administered on 02/27/16at 13:22; Admin Dose 100 MLS/HR; Start 02/27/16 at 13:00 Metronidazole (Flagyl) 500 mg Q8 PO Last administered on 02/27/16at 13:53; Admin Dose 500 MG; Start 02/27/16 at 14:00 DERRICK DREW MD Feb 27, 2016 15:32
--- NOTE | 2016-02-27 16:30 | PN ---
DATE: 02/27/2016 SUBJECTIVE: No acute changes overnight. The patient remains intubated and sedated. He is developi ng a loose stool. No fevers. VITAL SIGNS: Temperature 99.2, pulse 95, respirations 20, blood pressure 136/82, saturation 100 on 30 FIO2. WBC 13.2, H and H 9.1 and 27.3, platelets 294, no shift. BUN 22, creatinine 1.49. MICROBIOLOGY: Blood cultures repeated on 02/22/2016 and urine culture since 02/24/2016 negative. S putum culture grew E. coli, Angelina albicans. ANTIMICROBIALS: The patient is on: 1. Zosyn. 2. Fluconazole. 3. IV vancomycin. INDWELLINGS: Endotracheal tube, NG tube, Smalls catheter, PICC line. PHYSICAL EXAMINATION: GENERAL: This is an obese, well-developed, middle-aged man who is in no distress. HEENT: Head atraumatic, normocephalic. Sclerae anicteric. Buccal mucosa dry. NECK: Supple, trachea midline. CHEST: Rise symmetrical. Breath sounds diminished to bases. HEART: S1, S2. ABDOMEN: Soft. Bowel tones present. EXTREMITIES: Bilateral edema. ASSESSMENT: 1. Resolving sepsis status post shock. 2. Status post coagulase-negative staph bacteremia consistent with contaminant. 3. Acute aspiration pneumonia with respiratory failure. 4. Acute encephalopathy with new onset of seizures. 5. Acute renal failure. 6. Type B aortic dissection. 7. Hypertension, status post hypertensive urgency. 8. Diarrhea, rule out Clostridium difficile colitis. PLAN: The patient remains clinically unchanged. White blood cell count tracing down. We are going to change Zosyn to Rocephin. Continue Diflucan, add empiric Flagyl and send stool for Clostridium difficile. Continue management as per primary team and consultants. Dictated By: HUSAM SANFORD POUL[employer] DEBEAKER for YESIKA HESS MD NI/NTS Conf#: [id number] DID#: [id number]
--- NOTE | 2016-02-27 17:17 | CONS ---
Date/Time of Note Date/Time of Note DATE: 02/27/16 TIME: 17:16 Assessment/Plan Assessment/Plan Chief Complaint/Hosp Course Additional Assessment/Plan 1. Acute kidney injury, likely secondary to acute tubular necrosis from contrast-induced nephropathy and also secondary to ischemic acute tubular necrosis from aortic dissection. 2. A type B Helio aortic dissection. 3. Hypertensive emergency on multiple drips. 4. acute resp failiure intubated on ventilator 5 EDEMA plan ck lytes LASIX ALBUMIN Problems: Consultation Date/Type/Reason Admit Date/Time Feb 18, 2016 at 09:14 Initial Consult Date 02/26/16 Type of Consultation: RENAL Referring Provider: ANAYA BREWSTER MD, [facility] Exam/Review of Systems Vital Signs Vitals Vital Signs Date Time Temp Pulse Resp B/P Pulse Ox O2 Delivery O2 Flow Rate FiO2 02/27/16 16:00 78 02/27/16 16:00 20 155/75 98 Mechanical Ventilator 02/27/16 15:10 30 02/27/16 15:00 99.7 Intake and Output 02/26/16 02/26/16 02/27/16 15:00 23:00 07:00 Intake Total 1183 ml 1300.835 ml 1486.795 ml Output Total 890 ml 785 ml 680 ml Balance 293 ml 515.835 ml 806.795 ml Exam Respiratory: clear to auscultation Cardiovascular: regular rate and rhythm Gastrointestinal: bowel sounds (+), soft Extremities: edema (++) Results Result Diagram: 02/27/16 0445 02/27/16 0445 Results 24 hrs Laboratory Tests Test 02/26/16 17:45 02/26/16 23:31 02/27/16 04:45 02/27/16 05:20 Bedside Glucose 120 190 146 Anion Gap 13 Basophils # 0.1 Basophils % 0.9 Blood Morphology Comment Blood Urea Nitrogen 22 H Calcium Level 7.9 L Carbon Dioxide Level 22 Chloride Level 109 Creatinine 1.49 H Eosinophils # 0.6 H Eosinophils % 4.6 Glucose Level 143 Hematocrit 27.3 L Hemoglobin 9.1 L Lymphocytes # 0.8 Lymphocytes % 5.9 L Magnesium Level 2.2 Mean Corpuscular Hemoglobin 26.8 L Mean Corpuscular Hemoglobin Concent 33.4 Mean Corpuscular Volume 80.2 L Mean Platelet Volume 8.3 Monocytes # 1.5 H Monocytes % 11.7 H Neutrophils # 10.2 H Neutrophils % 76.9 Nucleated Red Blood Cells # 0.0 Nucleated Red Blood Cells % 0.0 Phosphorus Level 4.1 Platelet Count 294 Potassium Level 3.6 Red Blood Count 3.40 L Red Cell Distribution Width 17.7 H Sodium Level 140 White Blood Count 13.2 H Test 02/27/16 10:13 02/27/16 11:10 Vancomycin Level Trough 16.7 Bedside Glucose 142 Medications Medications Current Medications Sodium Chloride (NS) 1,000 ml @ 50 mls/hr Q20H IV Last administered on 17:46; Admin Dose 50 MLS/HR; Start 02/18/16 at 09:13 Ondansetron HCl (Zofran Inj) 4 mg Q6H PRN IV NAUSEA AND/OR VOMITING; Start 02/18/16 at 09:30 Acetaminophen (Tylenol Supp) 650 mg Q4H PRN [place] PAIN LEVEL 1-3 OR FEVER Last administered on 02/24/16at 14:32; Admin Dose 650 MG; Start 02/18/16 at 09:30 Morphine Sulfate (morphine) 2 mg Q4H PRN IV PAIN LEVEL 7-10 Last administered on 02/21/16at 09:35; Admin Dose 2 MG; Start 02/18/16 at 09:30 Bisacodyl (Dulcolax Supp) 10 mg DAILY PRN [place] CONSTIPATION; Start 02/18/16 at 09 :30 Pantoprazole (Protonix Iv) 40 mg DAILY@06 IV Last administered on 02/27/16 05 :43; Admin Dose 40 MG; Start 02/19/16 at 06:00 Amlodipine Besylate (Norvasc) 5 mg BID PO Last administered on 02/27/16at 08:25 ; Admin Dose 5 MG; Start 02/20/16 at 21:00 Hydralazine HCl (Apresoline) 10 mg Q6H PRN IV ELEVATED SYSTOLIC BP Last administered on 02/26/16at 16:35; Admin Dose 10 MG; Start 02/20/16 at 22:00 Minoxidil (Loniten) 5 mg BID PO Last administered on 02/27/16 08:25; Admin Dose 5 MG; Start 02/20/16 at 22:00 Metoprolol Tartrate 5 mg 5 mg Q4H PRN IV HR>55 Hold SBP<100 Last administered on 02/26/16at 18:34; Admin Dose 5 MG; Start 02/21/16 at 11:30 Propofol 100 ml @ 3.189 mls/ hr Q12H IV Last administered on 02/27/16at 13:53 ; Admin Dose 19.134 MLS/HR; Start 02/21/16 at 16:30 Fentanyl/Dextrose (D5W) 100 ml @ 0 mls/hr TITRATE IV Last administered on 02/26 13:56; Admin Dose 10 MLS/HR; Start 02/21/16 at 16:30 IV Flush (NS 10 ml) 10 ml PRN PRN IV IV PROTOCOL; Start 02/21/16 at 18:30 Ferrous Sulfate (Feosol Liquid Cup) 300 mg BID GTB Last administered on 08:25; Admin Dose 300 MG; Start 02/22/16 at 10:00 Heparin Sodium (Porcine) (Heparin (5000 Units/0.5 ml)) 5,000 unit BID SC Last administered on 02/27/16 08:26; Admin Dose 5,000 UNIT; Start 02/22/16 at 21:00 Lorazepam (Ativan) 1 mg Q1H PRN IV ANXIETY Last administered on 02/26/16 15: 02; Admin Dose 1 MG; Start 02/23/16 at 11:30 Hydralazine HCl 25 mg 25 mg Q8 PO Last administered on 02/27/16at 13:07; Admin Dose 25 MG; Start 02/23/16 at 14:00 Fluconazole/ Sodium Chloride (Diflucan 100 Mg/ NS (Pmx)) 50 ml @ 50 mls/hr Q24H IVPB Last administered on 02/27/16at 13:49; Admin Dose 50 MLS/HR; Start at 14:00 Miscellaneous Information 1 ea NOTE XX ; Start 02/23/16 at 23:15 Glucose (Glutose) 15 gm Q15M PRN PO DECREASED GLUCOSE; Start 02/23/16 at 23:15 Glucose (Glutose) 22.5 gm Q15M PRN PO DECREASED GLUCOSE; Start 02/23/16 at 23: 15 Dextrose (D50w Syringe) 25 ml Q15M PRN IV DECREASED GLUCOSE; Start 02/23/16 at 23:15 Dextrose (D50w Syringe) 50 ml Q15M PRN IV DECREASED GLUCOSE; Start 02/23/16 at 23:15 Glucagon (Glucagen) 1 mg Q15M PRN IM DECREASED GLUCOSE; Start 02/23/16 at 23:15 Glucose 15 gm 15 gm Q15M PRN BUCCAL DECREASED GLUCOSE; Start 02/23/16 at 23:15 Levetiracetam/ Sodium Chloride (Keppra Iv/NS) 110 ml @ 440 mls/hr BID IVPB Last administered on 02/27/16at 08:29; Admin Dose 440 MLS/HR; Start 02/24/16 at 01:00 Insulin Aspart (Novolog Insulin Pen) NOVOLOG *MILD* ALGORI... Q6 SC Last administered on 02/27/16at 11:11; Admin Dose 1 UNIT; Start 02/26/16 at 18:00 Metoprolol Tartrate 75 mg 75 mg Q8 PO Last administered on 02/27/16 13:07; Admin Dose 75 MG; Start 02/26/16 at 22:00 Albumin Human (Albumin Human 25%) 100 ml @ 100 mls/hr DAILY IV Last administered on 02/27/16 09:15; Admin Dose 100 MLS/HR; Start 02/27/16 at 09: 00; Stop 02/29/16 at 09:59 Furosemide 20 mg 20 mg DAILY IV Last administered on 02/27/16at 09:15; Admin Dose 20 MG; Start 02/27/16 at 09:00 Ceftriaxone Sodium (Rocephin) 50 ml @ 100 mls/hr Q24H IVPB Last administered on 02/27/16 13:22; Admin Dose 100 MLS/HR; Start 02/27/16 at 13:00 Metronidazole (Flagyl) 500 mg Q8 PO Last administered on 02/27/16 13:53; Admin Dose 500 MG; Start 02/27/16 at 14:00 SASHA OWEN MD Feb 27, 2016 17:17
--- NOTE | 2016-02-27 20:43 | PN ---
Date/Time of Note Date/Time of Note DATE: 02/27/16 TIME: 20:42 Assessment/Plan Lines/Catheters IV Catheter Type (from Nrsg): PICC Line Smalls in Place (from Nrsg): Yes Assessment/Plan Chief Complaint/Hosp Course IMPRESSION: Type B aortic dissection. The patient's blood pressure more controlled RECOMMENDATIONS: At this time, we would continue blood pressure management, monitor vital signs and laboratory values in an intensive care unit setting. Vent support per pulm medicine No plan for surgery. Abx Cr. 1.[address] scan when renal fxn improves I discussed with the patient and Dr. Mccabe and staff Problems: Subjective 24 Hr Interval Summary Constitutional: improved Pain Control: mild Exam/Review of Systems Vital Signs Vitals Vital Signs Date Time Temp Pulse Resp B/P Pulse Ox O2 Delivery O2 Flow Rate FiO2 02/27/16 19:30 92 21 129/65 98 02/27/16 19:25 30 02/27/16 19:15 98.7 Mechanical Ventilator Intake and Output 02/26/16 02/26/16 02/27/16 15:00 23:00 07:00 Intake Total 1183 ml 1300.835 ml 1486.795 ml Output Total 890 ml 785 ml 680 ml Balance 293 ml 515.835 ml 806.795 ml Exam Eyes: EOMI, nl conjunctiva, nl lids, nl sclera Neck: non-tender, supple Respiratory: clear to auscultation, normal air movement Cardiovascular: nl pulses, regular rate and rhythm Results Result Diagram: 02/27/16 0445 02/27/16 0445 KAYLYN RADFORD MD Feb 27, 2016 20:43
[2016-02-28] VITALS (67 sets, daily range): BP systolic 108–242; BP diastolic 52–110; PULSE 71–129; RESP 15–24
[2016-02-28] MEDS: IPRATROPIUM (HFA) 12.9 GM INHALER INH SCH ×4 (01:19→19:29)
[2016-02-28] MEDS: ALBUTEROL HFA 8 GM INHALER INH SCH ×4 (01:19→19:29)
[2016-02-28] MEDS: PROPOFOL 100 ML IV SCH ×6 (03:17→22:30)
[2016-02-28 04:55] LABS: BASOPHIL # 0.2 10^3/ul (0.0-0.1); BASOPHILS % 1.9 % (0.0-2.0); EOSINOPHILS # 0.6 10^3/ul (0.0-0.5); HEMATOCRIT 25.5 % (42.0-52.0); HEMOGLOBIN 8.5 g/dl (14.0-18.0); LYMPHOCYTES # 0.9 10^3/ul (0.8-2.9); LYMPHOCYTES % 7.4 % (15.0-51.0); MEAN CORPUSCULAR HEMOGLOBIN 26.6 pg (29.0-33.0); MEAN CORPUSCULAR HGB CONC 33.4 g/dl (32.0-37.0); MEAN CORPUSCULAR VOLUME 79.5 fl (82.0-101.0); MONOCYTE # 1.5 10^3/ul (0.3-0.9); MONOCYTES % 12.9 % (0.0-11.0); NEUTROPHIL # 8.7 10^3/ul (1.6-7.5); NEUTROPHILS % 72.8 % (39.0-77.0); PLATELET COUNT 310 10^3/UL (140-440); RED CELL DISTRIBUTION WIDTH 17.9 % (11.5-14.5)
[2016-02-28 05:00] LABS: CONDITION 1; LH ANALYZER COMMENTS 1
[2016-02-28] MEDS: METOPROLOL 5 MG INJ IV PRN ×2 (05:03→09:33)
[2016-02-28 05:08] LABS: POTASSIUM 3.7 mmol/L (3.5-5.1)
[2016-02-28 05:10] LABS: CREATININE 1.55 mg/dl (0.61-1.24)
[2016-02-28 05:11] LABS: CALCIUM 8.4 mg/dl (8.4-10.2); MAGNESIUM 2.2 mg/dl (1.7-2.5); PHOSPHORUS 4.2 mg/dl (2.5-4.9)
[2016-02-28] MEDS: PANTOPRAZOLE 40 MG INJ IV SCH (05:32)
[2016-02-28] MEDS: metroNIDAZOLE 500 MG TAB PO SCH ×3 (05:33→22:25)
[2016-02-28] MEDS: METOPROLOL 25 MG TAB PO SCH (05:33)
[2016-02-28] MEDS: INSULIN ASPART [NOVOLOG] 3 ML PEN SC SCH ×3 (05:34→17:54)
--- NOTE | 2016-02-28 06:39 | RADRPT ---
PROCEDURE: XR Chest. CLINICAL INDICATION: Shortness of breath TECHNIQUE: Portable single view of the chest COMPARISON: 02/25 FINDINGS: Tubes and lines remain in good position. Cardiomegaly is again seen. There are reduced lung volume s compared with prior. Allowing for this, left retrocardiac opacity and pulmonary vascular congesti on are likely unchanged. No definite effusions. IMPRESSION: Shallower lung inflation. Otherwise likely stable exam. RPTAT: [facility] Physician Shola Date Time Electronically viewed and signed by Denia Saeed Physician on 02/28/2016 06:39 LE/
--- NOTE | 2016-02-28 08:35 | PN ---
Date/Time of Note Date/Time of Note DATE: 02/28/16 TIME: 08:34 Assessment/Plan VTE Prophylaxis VTE Prophylaxis Intervention: heparin Lines/Catheters IV Catheter Type (from [email or web address] PICC Line Central line still needed: Yes Urinary Cath still in place: Yes Reason Cath still needed: other (indicate) Assessment/Plan Chief Complaint/Hosp Course 1. Type B aortic dissection. Continue blood pressure control. Continue ICU monitoring. Status post evaluation by vascular surgery. No surgical intervention as of now. 2. Accelerated hypertension. Currently controlled. On antihypertensives. 3. Acute hypoxic respiratory failure. Etiology unclear. Most probably secondary to aspiration. Continue ventilator support as per pulmonary. 4. Aspiration pneumonia. Continue antibiotics as per infectious diseases. 5. Acute kidney injury, most probably secondary to hemodynamics. Nephrology following. Use nephrotoxic drugs with caution. 6. Left cephalic vein thrombosis. Continue elevation. No need for therapeutic anticoagulation since this is the superficial vein. 7. Microcytic hypochromic anemia. Iron panel showing iron deficiency. Continue iron supplements. 8. Acute encephalopathy, most probably metabolic in origin. Electroencephalography showing background slowing suggesting bihemispheric subcortical dysfunction, possibly epileptiform activity. The patient was started on anticonvulsants for the same. 9. Sepsis secondary to gram-positive bacteremia. Latest blood cultures are negative. On antibiotics as per infectious diseases. 10. Fluids, electrolytes, and nutrition. Continue NG tube feedings. 11. Deep venous thrombosis prophylaxis. Subcutaneous heparin. 12. Gastrointestinal prophylaxis. Proton pump inhibitor. PLAN: Continue intensive care unit monitoring. Ventilator weaning as per pulmonary. Case discussed with Dr. Hernandez. Critical care time 35 minutes. Problems: Subjective 24 Hr Interval Summary Free Text/Dictation The patient remains on mechanical ventilator. Exam/Review of Systems Vital Signs Vitals Vital Signs Date Time Temp Pulse Resp B/P Pulse Ox O2 Delivery O2 Flow Rate FiO2 02/28/16 06:45 78 119/65 97 02/28/16 06:00 Mechanical Ventilator 02/28/16 05:45 24 30 02/28/16 05:00 98.1 Intake and Output 02/27/16 02/27/16 02/28/16 15:00 23:00 07:00 Intake Total 1476.284 ml 991.182 ml 1258.584 ml Output Total 1080 ml 665 ml 510 ml Balance 396.284 ml 326.182 ml 748.584 ml Exam HEENT: Head normocephalic and atraumatic. Eyes: Anicteric sclerae. Conjunctivae clear. ENT: Nasal septum is midline. Oral mucosa is dry. NECK: Short and obese. Unable to visualize any neck veins. CARDIAC: Regular rate and rhythm. S1 and S2 heard. ABDOMEN: Protruded. Soft. Bowel sounds hypoactive in all 4 quadrants. GENITOURINARY: The patient has a Smalls catheter in place. EXTREMITIES: No cyanosis, no clubbing. Edema of bilateral lower extremities and bilateral upper extremities. Right upper extremity PICC line in place. Peripheral pulses palpable. NEUROLOGIC: The patient is sedated. Results Result Diagram: 02/28/16 0430 02/28/16 0430 Results 24 hrs Laboratory Tests Test 02/27/16 10:13 02/27/16 11:10 02/27/16 17:17 02/27/16 23:47 Vancomycin Level Trough 16.7 Bedside Glucose 142 156 128 Test 02/28/16 04:30 02/28/16 05:07 Anion Gap 13 Basophils # 0.2 H Basophils % 1.9 Blood Morphology Comment Blood Urea Nitrogen 24 H Calcium Level 8.4 Carbon Dioxide Level 24 Chloride Level 110 Creatinine 1.55 H Eosinophils # 0.6 H Eosinophils % 5.0 Glucose Level 156 Hematocrit 25.5 L Hemoglobin 8.5 L Lymphocytes # 0.9 Lymphocytes % 7.4 L Magnesium Level 2.2 Mean Corpuscular Hemoglobin 26.6 L Mean Corpuscular Hemoglobin Concent 33.4 Mean Corpuscular Volume 79.5 L Mean Platelet Volume 8.0 Monocytes # 1.5 H Monocytes % 12.9 H Neutrophils # 8.7 H Neutrophils % 72.8 Nucleated Red Blood Cells # 0.0 Nucleated Red Blood Cells % 0.0 Phosphorus Level 4.2 Platelet Count 310 Potassium Level 3.7 Red Blood Count 3.20 L Red Cell Distribution Width 17.9 H Sodium Level 143 White Blood Count 12.0 H Bedside Glucose 128 Medications Medications Current Medications Sodium Chloride (NS) 1,000 ml @ 50 mls/hr Q20H IV Last administered on at 18:57; Admin Dose 50 MLS/HR; Start 02/18/16 at 09:13 Ondansetron HCl (Zofran Inj) 4 mg Q6H PRN IV NAUSEA AND/OR VOMITING; Start 02/18/16 at 09:30 Acetaminophen (Tylenol Supp) 650 mg Q4H PRN [place] PAIN LEVEL 1-3 OR FEVER Last administered on 02/24/16 14:32; Admin Dose 650 MG; Start 02/18/16 at 09:30 Morphine Sulfate (morphine) 2 mg Q4H PRN IV PAIN LEVEL 7-10 Last administered on 02/21/16 09:35; Admin Dose 2 MG; Start 02/18/16 at 09:30 Bisacodyl (Dulcolax Supp) 10 mg DAILY PRN [place] CONSTIPATION; Start 02/18/16 at 09 :30 Pantoprazole (Protonix Iv) 40 mg DAILY@06 IV Last administered on 02/28/16 05 :32; Admin Dose 40 MG; Start 02/19/16 at 06:00 Amlodipine Besylate (Norvasc) 5 mg BID PO Last administered on 02/27/16 20:58 ; Admin Dose 5 MG; Start 02/20/16 at 21:00 Hydralazine HCl (Apresoline) 10 mg Q6H PRN IV ELEVATED SYSTOLIC BP Last administered on 02/26/16 16:35; Admin Dose 10 MG; Start 02/20/16 at 22:00 Minoxidil (Loniten) 5 mg BID PO Last administered on 02/27/16 20:57; Admin Dose 5 MG; Start 02/20/16 at 22:00 Metoprolol Tartrate 5 mg 5 mg Q4H PRN IV HR>55 Hold SBP<100 Last administered on 02/28/16 05:03; Admin Dose 5 MG; Start 02/21/16 at 11:30 Propofol 100 ml @ 3.189 mls/ hr Q12H IV Last administered on 02/28/16 07:28 ; Admin Dose 19.134 MLS/HR; Start 02/21/16 at 16:30 Fentanyl/Dextrose (D5W) 100 ml @ 0 mls/hr TITRATE IV Last administered on 02/26 23:04; Admin Dose 10 MLS/HR; Start 02/21/16 at 16:30 IV Flush (NS 10 ml) 10 ml PRN PRN IV IV PROTOCOL; Start 02/21/16 at 18:30 Ferrous Sulfate (Feosol Liquid Cup) 300 mg BID GTB Last administered on 12/13/ 16at 20:57; Admin Dose 300 MG; Start 02/22/16 at 10:00 Heparin Sodium (Porcine) (Heparin (5000 Units/0.5 ml)) 5,000 unit BID SC Last administered on 02/27/16at 21:00; Admin Dose 5,000 UNIT; Start 02/22/16 at 21:00 Lorazepam (Ativan) 1 mg Q1H PRN IV ANXIETY Last administered on 02/26/16at 15: 02; Admin Dose 1 MG; Start 02/23/16 at 11:30 Hydralazine HCl 25 mg 25 mg Q8 PO Last administered on 02/28/16at 05:33; Admin Dose 25 MG; Start 02/23/16 at 14:00 Fluconazole/ Sodium Chloride (Diflucan 100 Mg/ NS (Pmx)) 50 ml @ 50 mls/hr Q24H IVPB Last administered on 02/27/16at 13:49; Admin Dose 50 MLS/HR; Start at 14:00 Miscellaneous Information 1 ea NOTE XX ; Start 02/23/16 at 23:15 Glucose (Glutose) 15 gm Q15M PRN PO DECREASED GLUCOSE; Start 02/23/16 at 23:15 Glucose (Glutose) 22.5 gm Q15M PRN PO DECREASED GLUCOSE; Start 02/23/16 at 23: 15 Dextrose (D50w Syringe) 25 ml Q15M PRN IV DECREASED GLUCOSE; Start 02/23/16 at 23:15 Dextrose (D50w Syringe) 50 ml Q15M PRN IV DECREASED GLUCOSE; Start 02/23/16 at 23:15 Glucagon (Glucagen) 1 mg Q15M PRN IM DECREASED GLUCOSE; Start 02/23/16 at 23:15 Glucose 15 gm 15 gm Q15M PRN BUCCAL DECREASED GLUCOSE; Start 02/23/16 at 23:15 Levetiracetam/ Sodium Chloride (Keppra Iv/NS) 110 ml @ 440 mls/hr BID IVPB Last administered on 02/27/16at 20:58; Admin Dose 440 MLS/HR; Start 02/24/16 at 01:00 Insulin Aspart (Novolog Insulin Pen) NOVOLOG *MILD* ALGORI... Q6 SC Last administered on 02/27/16at 17:19; Admin Dose 1 UNIT; Start 12/12/16 at 18:00 Metoprolol Tartrate 75 mg 75 mg Q8 PO Last administered on 02/28/16 05:33; Admin Dose 75 MG; Start 02/26/16 at 22:00 Albumin Human (Albumin Human 25%) 100 ml @ 100 mls/hr DAILY IV Last administered on 02/27/16 09:15; Admin Dose 100 MLS/HR; Start 02/27/16 at 09: 00; Stop 02/29/16 at 09:59 Furosemide 20 mg 20 mg DAILY IV Last administered on 02/27/16at 09:15; Admin Dose 20 MG; Start 02/27/16 at 09:00 Ceftriaxone Sodium (Rocephin) 50 ml @ 100 mls/hr Q24H IVPB Last administered on 02/27/16 13:22; Admin Dose 100 MLS/HR; Start 02/27/16 at 13:00 Metronidazole (Flagyl) 500 mg Q8 PO Last administered on 02/28/16 05:33; Admin Dose 500 MG; Start 02/27/16 at 14:00 KEITH CRAIG NP Feb 28, 2016 08:35
[2016-02-28] MEDS: FERROUS SULFATE 60 MG/ML 5ML CUP GTB SCH ×2 (08:41→21:03)
[2016-02-28] MEDS: AMLODIPINE 5 MG TAB PO SCH ×2 (08:42→21:04)
[2016-02-28] MEDS: FUROSEMIDE 20 MG INJ IV SCH (08:42)
[2016-02-28] MEDS: MINOXIDIL 2.5 MG TAB PO SCH ×2 (08:42→21:04)
[2016-02-28] MEDS: hydrALAzine 20 MG INJ IV PRN (08:42)
[2016-02-28] MEDS: HEPARIN 5,000 UNIT/0.5 ML SYG SC SCH ×2 (08:48→21:07)
[2016-02-28] MEDS: FENTAnyl 1,000 MCG in DEXTROSE 5% 80 ML IV SCH ×2 (09:20→18:06)
[2016-02-28] MEDS: LEVETIRACETAM IV 1,000 MG in SOD CHLORIDE 0.9% 100 ML IVPB SCH ×2 (09:24→21:04)
[2016-02-28] MEDS: morphine 2 MG INJ IV PRN (09:42)
[2016-02-28] MEDS: LORAZEPAM 2 MG INJ IV PRN ×3 (09:44→17:32)
[2016-02-28] MEDS: ALBUMIN HUMAN 25% 100 ML IV SCH (09:50)
--- NOTE | 2016-02-28 09:52 | CONS ---
Date/Time of Note Date/Time of Note DATE: 02/28/16 TIME: 09:47 Assessment/Plan Assessment/Plan Chief Complaint/Hosp Course Imp: 1.HTN emergency-NL EF by echo this admit-under reasonable control on PO medications only. Off all drips. Had some documented significantly elevated BP but was during sedation vacation and vent weaning per nurse at bedside 2.Aortic dissection-type B 3.abnl ecg-lateral TWI-negative troponin x 3 since admit 4.anxiety 5.ARF 6. Pericardial effusion by echo-small with NL EF 7.Encephalopathic Recc: -Tele in ICU -Follow volume status closely -serial ecg's -Continue PO BB/CCB/minoxindil/hydralazine and follow bp closely and will make slight increase to PO BB/hydralazine to improve BP -ongoing surgical follow-up -f/u MS closely -Vent weaning as tolerated Problems: Consultation Date/Type/Reason Admit Date/Time Feb 18, 2016 at 09:14 Initial Consult Date 02/19/2016 Type of Consultation: Cardiology Reason for Consultation HTN/dissection Referring Provider: ANAYA BREWSTER MD, [facility] Exam/Review of Systems Vital Signs Vitals Vital Signs Date Time Temp Pulse Resp B/P Pulse Ox O2 Delivery O2 Flow Rate FiO2 02/28/16 09:30 129 02/28/16 08:30 20 234/98 100 Mechanical Ventilator 02/28/16 08:00 99.7 02/28/16 05:45 30 Intake and Output 02/27/16 02/27/16 02/28/16 15:00 23:00 07:00 Intake Total 1476.284 ml 991.182 ml 1258.584 ml Output Total 1080 ml 665 ml 510 ml Balance 396.284 ml 326.182 ml 748.584 ml Exam Review of Systems: CONSTITUTIONAL: No fevers, chills. PULMONARY: intubated CARDIOVASCULAR: No obvious chest pain/palpitations GASTROINTESTINAL: No nausea/vomiting. GENITOURINARY: No hematuria/dysuria. MUSCULOSKELETAL: No obvious myagias/arthalgias. PSYCHIATRIC: No documented depression. NEUROLOGIC: No weakness Constitutional: other (agitated/sedsted) Psych: no complaints Head: normocephalic ENMT: mucosa pink and moist Neck: jvd (9 cm water), supple Respiratory: other (upper airway rhocherous transmission) Cardiovascular: regular rate and rhythm Gastrointestinal: non-tender, soft Musculoskeletal: muscle tone (normal) Extremities: pitting pedal edema (Bilateral) Neurological: other (sedated but agitated) Results Result Diagram: 02/28/16 0430 02/28/16 0430 Results 24 hrs Laboratory Tests Test 02/27/16 10:13 02/27/16 11:10 02/27/16 17:17 02/27/16 23:47 Vancomycin Level Trough 16.7 Bedside Glucose 142 156 128 Test 02/28/16 04:30 02/28/16 05:07 Anion Gap 13 Basophils # 0.2 H Basophils % 1.9 Blood Morphology Comment Blood Urea Nitrogen 24 H Calcium Level 8.4 Carbon Dioxide Level 24 Chloride Level 110 Creatinine 1.55 H Eosinophils # 0.6 H Eosinophils % 5.0 Glucose Level 156 Hematocrit 25.5 L Hemoglobin 8.5 L Lymphocytes # 0.9 Lymphocytes % 7.4 L Magnesium Level 2.2 Mean Corpuscular Hemoglobin 26.6 L Mean Corpuscular Hemoglobin Concent 33.4 Mean Corpuscular Volume 79.5 L Mean Platelet Volume 8.0 Monocytes # 1.5 H Monocytes % 12.9 H Neutrophils # 8.7 H Neutrophils % 72.8 Nucleated Red Blood Cells # 0.0 Nucleated Red Blood Cells % 0.0 Phosphorus Level 4.2 Platelet Count 310 Potassium Level 3.7 Red Blood Count 3.20 L Red Cell Distribution Width 17.9 H Sodium Level 143 White Blood Count 12.0 H Bedside Glucose 128 Medications Medications Current Medications Sodium Chloride (NS) 1,000 ml @ 50 mls/hr Q20H IV Last administered on at 18:57; Admin Dose 50 MLS/HR; Start 02/18/16 at 09:13 Ondansetron HCl (Zofran Inj) 4 mg Q6H PRN IV NAUSEA AND/OR VOMITING; Start 02/18/16 at 09:30 Acetaminophen (Tylenol Supp) 650 mg Q4H PRN [place] PAIN LEVEL 1-3 OR FEVER Last administered on 02/24/16at 14:32; Admin Dose 650 MG; Start 02/18/16 at 09:30 Morphine Sulfate (morphine) 2 mg Q4H PRN IV PAIN LEVEL 7-10 Last administered on 02/28/16at 09:42; Admin Dose 2 MG; Start 02/18/16 at 09:30 Bisacodyl (Dulcolax Supp) 10 mg DAILY PRN [place] CONSTIPATION; Start 02/18/16 at 09 :30 Pantoprazole (Protonix Iv) 40 mg DAILY@06 IV Last administered on 02/28/16 05 :32; Admin Dose 40 MG; Start 02/19/16 at 06:00 Amlodipine Besylate (Norvasc) 5 mg BID PO Last administered on 02/28/16 08:42 ; Admin Dose 5 MG; Start 02/20/16 at 21:00 Hydralazine HCl (Apresoline) 10 mg Q6H PRN IV ELEVATED SYSTOLIC BP Last administered on 02/28/16 08:42; Admin Dose 10 MG; Start 02/20/16 at 22:00 Minoxidil (Loniten) 5 mg BID PO Last administered on 02/28/16 08:42; Admin Dose 5 MG; Start 02/20/16 at 22:00 Metoprolol Tartrate 5 mg 5 mg Q4H PRN IV HR>55 Hold SBP<100 Last administered on 02/28/16 09:33; Admin Dose 5 MG; Start 02/21/16 at 11:30 Propofol 100 ml @ 3.189 mls/ hr Q12H IV Last administered on 02/28/16 07:28 ; Admin Dose 19.134 MLS/HR; Start 02/21/16 at 16:30 Fentanyl/Dextrose (D5W) 100 ml @ 0 mls/hr TITRATE IV Last administered on 02/27 09:20; Admin Dose 10 MLS/HR; Start 02/21/16 at 16:30 IV Flush (NS 10 ml) 10 ml PRN PRN IV IV PROTOCOL; Start 02/21/16 at 18:30 Ferrous Sulfate (Feosol Liquid Cup) 300 mg BID GTB Last administered on 08:41; Admin Dose 300 MG; Start 02/22/16 at 10:00 Heparin Sodium (Porcine) (Heparin (5000 Units/0.5 ml)) 5,000 unit BID SC Last administered on 02/28/16 08:48; Admin Dose 5,000 UNIT; Start 02/22/16 at 21:00 Lorazepam (Ativan) 1 mg Q1H PRN IV ANXIETY Last administered on 02/28/16at 09: 45; Admin Dose 1 MG; Start 02/23/16 at 11:30 Hydralazine HCl 25 mg 25 mg Q8 PO Last administered on 02/28/16at 05:33; Admin Dose 25 MG; Start 02/23/16 at 14:00 Fluconazole/ Sodium Chloride (Diflucan 100 Mg/ NS (Pmx)) 50 ml @ 50 mls/hr Q24H IVPB Last administered on 02/27/16at 13:49; Admin Dose 50 MLS/HR; Start at 14:00 Miscellaneous Information 1 ea NOTE XX ; Start 02/23/16 at 23:15 Glucose (Glutose) 15 gm Q15M PRN PO DECREASED GLUCOSE; Start 02/23/16 at 23:15 Glucose (Glutose) 22.5 gm Q15M PRN PO DECREASED GLUCOSE; Start 02/23/16 at 23: 15 Dextrose (D50w Syringe) 25 ml Q15M PRN IV DECREASED GLUCOSE; Start 02/23/16 at 23:15 Dextrose (D50w Syringe) 50 ml Q15M PRN IV DECREASED GLUCOSE; Start 02/23/16 at 23:15 Glucagon (Glucagen) 1 mg Q15M PRN IM DECREASED GLUCOSE; Start 02/23/16 at 23:15 Glucose 15 gm 15 gm Q15M PRN BUCCAL DECREASED GLUCOSE; Start 02/23/16 at 23:15 Levetiracetam/ Sodium Chloride (Keppra Iv/NS) 110 ml @ 440 mls/hr BID IVPB Last administered on 02/28/16at 09:24; Admin Dose 440 MLS/HR; Start 02/24/16 at 01:00 Insulin Aspart (Novolog Insulin Pen) NOVOLOG *MILD* ALGORI... Q6 SC Last administered on 02/27/16at 17:19; Admin Dose 1 UNIT; Start 02/26/16 at 18:00 Metoprolol Tartrate 75 mg 75 mg Q8 PO Last administered on 02/28/16at 05:33; Admin Dose 75 MG; Start 02/26/16 at 22:00 Albumin Human (Albumin Human 25%) 100 ml @ 100 mls/hr DAILY IV Last administered on 02/27/16at 09:15; Admin Dose 100 MLS/HR; Start 02/27/16 at 09: 00; Stop 02/29/16 at 09:59 Furosemide 20 mg 20 mg DAILY IV Last administered on 02/28/16at 08:42; Admin Dose 20 MG; Start 02/27/16 at 09:00 Ceftriaxone Sodium (Rocephin) 50 ml @ 100 mls/hr Q24H IVPB Last administered on 02/27/16at 13:22; Admin Dose 100 MLS/HR; Start 02/27/16 at 13:00 Metronidazole (Flagyl) 500 mg Q8 PO Last administered on 02/28/16at 05:33; Admin Dose 500 MG; Start 02/27/16 at 14:00 JUNAID PAZ Feb 28, 2016 09:52
--- NOTE | 2016-02-28 11:30 | CONS ---
Date/Time of Note Date/Time of Note DATE: 02/28/16 TIME: 11:28 Consult Date/Type/Reason Admit Date/Time Feb 18, 2016 at 09:14 Type of Consultation: Pulm Ordering Provider: ANAYA BREWSTER MD, [facility] Subjective Intubated, agitated hypertensive moderate oral secretions tongue edema Objective Vital Signs Date Time Temp Pulse Resp B/P Pulse Ox O2 Delivery O2 Flow Rate FiO2 02/28/16 10:00 97 22 126/62 97 Mechanical Ventilator 02/28/16 08:15 30 02/28/16 08:00 99.7 Intake and Output 02/27/16 02/27/16 02/28/16 15:00 23:00 07:00 Intake Total 1476.284 ml 991.182 ml 1258.584 ml Output Total 1080 ml 665 ml 510 ml Balance 396.284 ml 326.182 ml 748.584 ml PHYSICAL EXAMINATION GENERAL: A well-nourished well-developed gentleman intubated on mechanical ventilation. VITAL SIGNS: see below. HEENT: Pupils equal, round, and reactive to light. enlarged swollen tongue, protruding CARDIAC: S1, S2, tachycardia. CHEST: Diminished air entry bilaterally. ABDOMEN: Mildly distended. No bowel sounds. EXTREMITIES: No cyanosis, clubbing edema +1 upper extremities NEUROLOGIC: generalized weakness. Results/Medications Result Diagram: 02/28/16 0430 02/28/16 0430 Results 24 hrs Laboratory Tests Test 02/27/16 17:17 02/27/16 23:47 02/28/16 04:30 02/28/16 05:07 Bedside Glucose 156 128 128 Anion Gap 13 Basophils # 0.2 H Basophils % 1.9 Blood Morphology Comment Blood Urea Nitrogen 24 H Calcium Level 8.4 Carbon Dioxide Level 24 Chloride Level 110 Creatinine 1.55 H Eosinophils # 0.6 H Eosinophils % 5.0 Glucose Level 156 Hematocrit 25.5 L Hemoglobin 8.5 L Lymphocytes # 0.9 Lymphocytes % 7.4 L Magnesium Level 2.2 Mean Corpuscular Hemoglobin 26.6 L Mean Corpuscular Hemoglobin Concent 33.4 Mean Corpuscular Volume 79.5 L Mean Platelet Volume 8.0 Monocytes # 1.5 H Monocytes % 12.9 H Neutrophils # 8.7 H Neutrophils % 72.8 Nucleated Red Blood Cells # 0.0 Nucleated Red Blood Cells % 0.0 Phosphorus Level 4.2 Platelet Count 310 Potassium Level 3.7 Red Blood Count 3.20 L Red Cell Distribution Width 17.9 H Sodium Level 143 White Blood Count 12.0 H Test 02/28/16 10:09 Lab Scanned Report REFERENCE LAB Medications Current Medications Sodium Chloride (NS) 1,000 ml @ 50 mls/hr Q20H IV Last administered on 18:57; Admin Dose 50 MLS/HR; Start 02/18/16 at 09:13 Ondansetron HCl (Zofran Inj) 4 mg Q6H PRN IV NAUSEA AND/OR VOMITING; Start 02/18/16 at 09:30 Acetaminophen (Tylenol Supp) 650 mg Q4H PRN [place] PAIN LEVEL 1-3 OR FEVER Last administered on 02/24/16at 14:32; Admin Dose 650 MG; Start 02/18/16 at 09:30 Morphine Sulfate (morphine) 2 mg Q4H PRN IV PAIN LEVEL 7-10 Last administered on 02/28/16 09:42; Admin Dose 2 MG; Start 02/18/16 at 09:30 Bisacodyl (Dulcolax Supp) 10 mg DAILY PRN [place] CONSTIPATION; Start 02/18/16 at 09 :30 Pantoprazole (Protonix Iv) 40 mg DAILY@06 IV Last administered on 02/28/16 05 :32; Admin Dose 40 MG; Start 02/19/16 at 06:00 Amlodipine Besylate (Norvasc) 5 mg BID PO Last administered on 02/28/16 08:42 ; Admin Dose 5 MG; Start 02/20/16 at 21:00 Hydralazine HCl (Apresoline) 10 mg Q6H PRN IV ELEVATED SYSTOLIC BP Last administered on 02/28/16 08:42; Admin Dose 10 MG; Start 02/20/16 at 22:00 Minoxidil (Loniten) 5 mg BID PO Last administered on 02/28/16 08:42; Admin Dose 5 MG; Start 02/20/16 at 22:00 Metoprolol Tartrate 5 mg 5 mg Q4H PRN IV HR>55 Hold SBP<100 Last administered on 02/28/16at 09:33; Admin Dose 5 MG; Start 02/21/16 at 11:30 Propofol 100 ml @ 3.189 mls/ hr Q12H IV Last administered on 02/28/16at 11:26 ; Admin Dose 22.323 MLS/HR; Start 02/21/16 at 16:30 Fentanyl/Dextrose (D5W) 100 ml @ 0 mls/hr TITRATE IV Last administered on 02/27at 09:20; Admin Dose 10 MLS/HR; Start 02/21/16 at 16:30 IV Flush (NS 10 ml) 10 ml PRN PRN IV IV PROTOCOL; Start 02/21/16 at 18:30 Ferrous Sulfate (Feosol Liquid Cup) 300 mg BID GTB Last administered on at 08:41; Admin Dose 300 MG; Start 02/22/16 at 10:00 Heparin Sodium (Porcine) (Heparin (5000 Units/0.5 ml)) 5,000 unit BID SC Last administered on 02/28/16at 08:48; Admin Dose 5,000 UNIT; Start 02/22/16 at 21:00 Lorazepam 1 mg 1 mg Q1H PRN IV ANXIETY Last administered on 02/28/16at 09:45; Admin Dose 1 MG; Start 02/23/16 at 11:30 Fluconazole/ Sodium Chloride (Diflucan 100 Mg/ NS (Pmx)) 50 ml @ 50 mls/hr Q24H IVPB Last administered on 02/27/16at 13:49; Admin Dose 50 MLS/HR; Start at 14:00 Miscellaneous Information 1 ea NOTE XX ; Start 02/23/16 at 23:15 Glucose (Glutose) 15 gm Q15M PRN PO DECREASED GLUCOSE; Start 02/23/16 at 23:15 Glucose (Glutose) 22.5 gm Q15M PRN PO DECREASED GLUCOSE; Start 02/23/16 at 23: 15 Dextrose (D50w Syringe) 25 ml Q15M PRN IV DECREASED GLUCOSE; Start 02/23/16 at 23:15 Dextrose (D50w Syringe) 50 ml Q15M PRN IV DECREASED GLUCOSE; Start 02/23/16 at 23:15 Glucagon (Glucagen) 1 mg Q15M PRN IM DECREASED GLUCOSE; Start 02/23/16 at 23:15 Glucose 15 gm 15 gm Q15M PRN BUCCAL DECREASED GLUCOSE; Start 02/23/16 at 23:15 Levetiracetam/ Sodium Chloride (Keppra Iv/NS) 110 ml @ 440 mls/hr BID IVPB Last administered on 02/28/16at 09:24; Admin Dose 440 MLS/HR; Start 02/24/16 at 01:00 Insulin Aspart NOVOLOG *MILD* ALGORI... Q6 SC Last administered on 02/27/16at 17:19; Admin Dose 1 UNIT; Start 02/26/16 at 18:00 Albumin Human (Albumin Human 25%) 100 ml @ 100 mls/hr DAILY IV Last administered on 02/28/16at 09:50; Admin Dose 100 MLS/HR; Start 02/27/16 at 09: 00; Stop 02/29/16 at 09:59 Furosemide 20 mg 20 mg DAILY IV Last administered on 02/28/16at 08:42; Admin Dose 20 MG; Start 02/27/16 at 09:00 Ceftriaxone Sodium (Rocephin) 50 ml @ 100 mls/hr Q24H IVPB Last administered on 02/27/16at 13:22; Admin Dose 100 MLS/HR; Start 02/27/16 at 13:00 Metronidazole (Flagyl) 500 mg Q8 PO Last administered on 02/28/16at 05:33; Admin Dose 500 MG; Start 02/27/16 at 14:00 Hydralazine HCl (Apresoline) 50 mg Q8 PO ; Start 02/28/16 at 14:00 Metoprolol Tartrate (Lopressor) 100 mg Q8 PO ; Start 02/28/16 at 14:00 Assessment/Plan Chief Complaint/Hosp Course IMPRESSION 1. Hypertensive Emergency 2. Type B Aortic Dissection 3. Encephalopathy, possibly secondary to antihypertensive medications. Questionable new onset seizures rule out CVA 4. Aspiration pneumonia with hypoxemic respiratory failure. 5. FARRUKH RECS: 1. Vent support unable to wean at present secondary to AMS, hypertension and upper airway edema. 2. Continue BP control 3. Sedation vacation as tolerated. 4. Replete lytes 5. Am CXR/ABG 6. Abx per ID prognosis guarded Problems: ANAYA BREWSTER MD, [facility] Feb 28, 2016 11:30
[2016-02-28] MEDS: CEFTRIAXONE 1 GM/50 ML (PMX) 50 ML IVPB SCH (12:58)
[2016-02-28] MEDS: METOPROLOL 100 MG TAB PO SCH ×2 (13:25→22:25)
[2016-02-28] MEDS: FLUCONAZOLE 100 MG/NS (PMX) 50 ML IVPB SCH (13:25)
[2016-02-28] MEDS ORDERED: METOPROLOL 25 MG TAB PO SCH (14:00)
--- NOTE | 2016-02-28 14:12 | PN ---
DATE: SUBJECTIVE: No acute events overnight. The patient is intubated, looks comfortable. He is afebril e. He is on light sedation. WBC today 12 with H and H 8.5 and 25.5, platelets 310, no shift, no ba nds. BUN 24, creatinine 1.55. MICROBIOLOGY: No new microbiology results. DIAGNOSTICS: Chest x-ray this morning revealed shallow lung inflation, otherwise stable examination . INDWELLINGS: Endotracheal tube, NG tube, Smalls catheter, PICC line placed on 02/21/2016. ANTIMICROBIALS: The patient remains on Rocephin and Flagyl and also on fluconazole. PHYSICAL EXAMINATION: GENERAL: This is an obese, well-developed, middle-aged man who is lying comfortably in bed. HEENT: Head atraumatic, normocephalic. Sclerae anicteric. Buccal mucosa dry. NECK: Supple. CHEST: Rise symmetrical. Breath sounds diminished. HEART: S1, S2. ABDOMEN: Distended, soft. Bowel tones present. EXTREMITIES: Bilateral edema. SKIN: No jaundice, no cyanosis. ASSESSMENT: 1. Severe sepsis secondary to aspiration pneumonia. 2. Acute respiratory failure. 3. Seizure disorder, new onset. 4. Acute renal failure. 5. Type B artery dissection. 6. Diarrhea, on empiric Flagyl. 7. Hypertension. PLAN: The patient remains stable, covered with appropriate antimicrobials. White blood cell count tracing down. We will continue him on current regimen and follow recommendations of specialists. Dictated By: HUSAM SANFORD SHOE HANDLER for YESIKA LOPEZ/EFRAIN Conf#: [id number] DID#: [id number]
--- NOTE | 2016-02-28 18:56 | PN ---
Date/Time of Note Date/Time of Note DATE: 02/28/16 TIME: 18:55 Assessment/Plan Lines/Catheters IV Catheter Type (from Nrsg): PICC Line Smalls in Place (from Nrsg): Yes Assessment/Plan Chief Complaint/Hosp Course IMPRESSION: Type B aortic dissection. The patient's blood pressure more controlled RECOMMENDATIONS: At this time, we would continue blood pressure management, monitor vital signs and laboratory values in an intensive care unit setting. Vent support per pulm medicine No plan for surgery. Abx Cr. 1.[address] scan when renal fxn improves I discussed with the patient and Dr. Mccabe and staff Problems: Subjective 24 Hr Interval Summary Pain Control: mild Exam/Review of Systems Vital Signs Vitals Vital Signs Date Time Temp Pulse Resp B/P Pulse Ox O2 Delivery O2 Flow Rate FiO2 02/28/16 17:10 86 20 98 30 02/28/16 16:00 99.3 140/71 Mechanical Ventilator Intake and Output 02/27/16 02/27/16 02/28/16 15:00 23:00 07:00 Intake Total 1476.284 ml 991.182 ml 1258.584 ml Output Total 1080 ml 665 ml 510 ml Balance 396.284 ml 326.182 ml 748.584 ml Exam ENMT: mucosa pink and moist, nl external ears & nose, nl lips & teeth, nl nasal mucosa & septum Neck: non-tender, supple Respiratory: No clear to auscultation, No congested cough, No crackles/rales, No diminished breath sounds, No intercostal retraction, No labored breathing, No normal air movement, No other, No respirations, No tactile fremitus, No wheezing Results Result Diagram: 02/28/1642902/28/16429 KAYLYN RADFORD MD Feb 28, 2016 18:56
--- NOTE | 2016-02-28 19:56 | CONS ---
Date/Time of Note Date/Time of Note DATE: 02/28/16 TIME: 19:55 Assessment/Plan Assessment/Plan Chief Complaint/Hosp Course Additional Assessment/Plan 1. Acute kidney injury, likely secondary to acute tubular necrosis from contrast-induced nephropathy and also secondary to ischemic acute tubular necrosis from aortic dissection. 2. A type B Helio aortic dissection. 3. Hypertensive emergency on multiple drips. 4. acute resp failiure intubated on ventilator 5 EDEMA plan ck lytes LASIX ALBUMIN Problems: Consultation Date/Type/Reason Admit Date/Time Feb 18, 2016 at 09:14 Initial Consult Date 02/26/16 Type of Consultation: renal Referring Provider: ANAYA BREWSTER MD, [facility] 24 HR Interval Summary Constitutional: other (on vent) Exam/Review of Systems Vital Signs Vitals Vital Signs Date Time Temp Pulse Resp B/P Pulse Ox O2 Delivery O2 Flow Rate FiO2 02/28/16 17:10 86 20 98 30 02/28/16 16:00 99.3 140/71 Mechanical Ventilator Intake and Output 02/27/16 02/27/16 02/28/16 15:00 23:00 07:00 Intake Total 1476.284 ml 991.182 ml 1258.584 ml Output Total 1080 ml 665 ml 510 ml Balance 396.284 ml 326.182 ml 748.584 ml Exam Respiratory: diminished breath sounds Cardiovascular: regular rate and rhythm Gastrointestinal: bowel sounds (+), soft Extremities: edema (++) Results Result Diagram: 02/28/16 0430 02/28/16 0430 Results 24 hrs Laboratory Tests Test 02/27/16 23:47 02/28/16 04:30 02/28/16 05:07 02/28/16 10:09 Bedside Glucose 128 128 Anion Gap 13 Basophils # 0.2 H Basophils % 1.9 Blood Morphology Comment Blood Urea Nitrogen 24 H Calcium Level 8.4 Carbon Dioxide Level 24 Chloride Level 110 Creatinine 1.55 H Eosinophils # 0.6 H Eosinophils % 5.0 Glucose Level 156 Hematocrit 25.5 L Hemoglobin 8.5 L Lymphocytes # 0.9 Lymphocytes % 7.4 L Magnesium Level 2.2 Mean Corpuscular Hemoglobin 26.6 L Mean Corpuscular Hemoglobin Concent 33.4 Mean Corpuscular Volume 79.5 L Mean Platelet Volume 8.0 Monocytes # 1.5 H Monocytes % 12.9 H Neutrophils # 8.7 H Neutrophils % 72.8 Nucleated Red Blood Cells # 0.0 Nucleated Red Blood Cells % 0.0 Phosphorus Level 4.2 Platelet Count 310 Potassium Level 3.7 Red Blood Count 3.20 L Red Cell Distribution Width 17.9 H Sodium Level 143 White Blood Count 12.0 H Lab Scanned Report REFERENCE LAB Test 02/28/16 12:24 02/28/16 17:54 Bedside Glucose 126 126 Medications Medications Current Medications Ondansetron HCl (Zofran Inj) 4 mg Q6H PRN IV NAUSEA AND/OR VOMITING; Start 02/18/16 at 09:30 Acetaminophen (Tylenol Supp) 650 mg Q4H PRN PA PAIN LEVEL 1-3 OR FEVER Last administered on 02/24/16at 14:32; Admin Dose 650 MG; Start 02/18/16 at 09:30 Morphine Sulfate (morphine) 2 mg Q4H PRN IV PAIN LEVEL 7-10 Last administered on 02/28/16at 09:42; Admin Dose 2 MG; Start 02/18/16 at 09:30 Bisacodyl (Dulcolax Supp) 10 mg DAILY PRN [place] CONSTIPATION; Start 02/18/16 at 09 :30 Pantoprazole (Protonix Iv) 40 mg DAILY@06 IV Last administered on 02/28/16at 05 :32; Admin Dose 40 MG; Start 02/19/16 at 06:00 Amlodipine Besylate (Norvasc) 5 mg BID PO Last administered on 02/28/16at 08:42 ; Admin Dose 5 MG; Start 02/20/16 at 21:00 Hydralazine HCl (Apresoline) 10 mg Q6H PRN IV ELEVATED SYSTOLIC BP Last administered on 02/28/16at 08:42; Admin Dose 10 MG; Start 02/20/16 at 22:00 Minoxidil (Loniten) 5 mg BID PO Last administered on 02/28/16at 08:42; Admin Dose 5 MG; Start 02/20/16 at 22:00 Metoprolol Tartrate 5 mg 5 mg Q4H PRN IV HR>55 Hold SBP<100 Last administered on 02/28/16at 09:33; Admin Dose 5 MG; Start 02/21/16 at 11:30 Propofol 100 ml @ 3.189 mls/ hr Q12H IV Last administered on 02/28/16at 18:07 ; Admin Dose 22.323 MLS/HR; Start 02/21/16 at 16:30 Fentanyl/Dextrose (D5W) 100 ml @ 0 mls/hr TITRATE IV Last administered on 02/27at 18:06; Admin Dose 10 MLS/HR; Start 02/21/16 at 16:30 IV Flush (NS 10 ml) 10 ml PRN PRN IV IV PROTOCOL; Start 02/21/16 at 18:30 Ferrous Sulfate (Feosol Liquid Cup) 300 mg BID GTB Last administered on at 08:41; Admin Dose 300 MG; Start 02/22/16 at 10:00 Heparin Sodium (Porcine) (Heparin (5000 Units/0.5 ml)) 5,000 unit BID SC Last administered on 02/28/16at 08:48; Admin Dose 5,000 UNIT; Start 02/22/16 at 21:00 Lorazepam 1 mg 1 mg Q1H PRN IV ANXIETY Last administered on 02/28/16at 17:32; Admin Dose 1 MG; Start 02/23/16 at 11:30 Fluconazole/ Sodium Chloride (Diflucan 100 Mg/ NS (Pmx)) 50 ml @ 50 mls/hr Q24H IVPB Last administered on 02/28/16at 13:25; Admin Dose 50 MLS/HR; Start at 14:00 Miscellaneous Information 1 ea NOTE XX ; Start 02/23/16 at 23:15 Glucose (Glutose) 15 gm Q15M PRN PO DECREASED GLUCOSE; Start 02/23/16 at 23:15 Glucose (Glutose) 22.5 gm Q15M PRN PO DECREASED GLUCOSE; Start 02/23/16 at 23: 15 Dextrose (D50w Syringe) 25 ml Q15M PRN IV DECREASED GLUCOSE; Start 02/23/16 at 23:15 Dextrose (D50w Syringe) 50 ml Q15M PRN IV DECREASED GLUCOSE; Start 02/23/16 at 23:15 Glucagon (Glucagen) 1 mg Q15M PRN IM DECREASED GLUCOSE; Start 02/23/16 at 23:15 Glucose 15 gm 15 gm Q15M PRN BUCCAL DECREASED GLUCOSE; Start 02/23/16 at 23:15 Levetiracetam/ Sodium Chloride (Keppra Iv/NS) 110 ml @ 440 mls/hr BID IVPB Last administered on 02/28/16 09:24; Admin Dose 440 MLS/HR; Start 02/24/16 at 01:00 Insulin Aspart NOVOLOG *MILD* ALGORI... Q6 SC Last administered on 02/27/16 17:19; Admin Dose 1 UNIT; Start 02/26/16 at 18:00 Albumin Human (Albumin Human 25%) 100 ml @ 100 mls/hr DAILY IV Last administered on 02/28/16 09:50; Admin Dose 100 MLS/HR; Start 02/27/16 at 09: 00; Stop 02/29/16 at 09:59 Furosemide 20 mg 20 mg DAILY IV Last administered on 02/28/16 08:42; Admin Dose 20 MG; Start 02/27/16 at 09:00 Ceftriaxone Sodium (Rocephin) 50 ml @ 100 mls/hr Q24H IVPB Last administered on 02/28/16 12:58; Admin Dose 100 MLS/HR; Start 02/27/16 at 13:00 Metronidazole (Flagyl) 500 mg Q8 PO Last administered on 02/28/16 13:26; Admin Dose 500 MG; Start 02/27/16 at 14:00 Hydralazine HCl (Apresoline) 50 mg Q8 PO Last administered on 02/28/16 13:25 ; Admin Dose 50 MG; Start 02/28/16 at 14:00 Metoprolol Tartrate (Lopressor) 100 mg Q8 PO Last administered on 02/28/16 13 :25; Admin Dose 100 MG; Start 02/28/16 at 14:00 SASHA OWEN MD Feb 28, 2016 19:56
[2016-02-29] VITALS (99 sets, daily range): BP systolic 110–232; BP diastolic 58–107; PULSE 72–113; RESP 15–28
[2016-02-29] MEDS: ALBUTEROL HFA 8 GM INHALER INH SCH ×4 (01:11→19:37)
[2016-02-29] MEDS: IPRATROPIUM (HFA) 12.9 GM INHALER INH SCH ×4 (01:11→19:36)
[2016-02-29] MEDS: ALTEPLASE (CATHFLO) 2 MG INJ CATHETER PRN ×2 (01:54→06:00)
[2016-02-29] MEDS: PROPOFOL 100 ML IV SCH ×5 (02:18→18:36)
[2016-02-29] MEDS: METOPROLOL 5 MG INJ IV PRN (03:33)
[2016-02-29] MEDS: FENTAnyl 1,000 MCG in DEXTROSE 5% 80 ML IV SCH (03:49)
[2016-02-29] MEDS: hydrALAzine 20 MG INJ IV PRN ×2 (04:13→10:02)
[2016-02-29] MEDS: LORAZEPAM 2 MG INJ IV PRN ×2 (04:16→19:50)
[2016-02-29 05:11] LABS: BASOPHIL # 0.1 10^3/ul (0.0-0.1); BASOPHILS % 0.6 % (0.0-2.0); EOSINOPHILS # 0.5 10^3/ul (0.0-0.5); EOSINOPHILS % 3.5 % (0.0-7.0); HEMATOCRIT 26.3 % (42.0-52.0); HEMOGLOBIN 8.8 g/dl (14.0-18.0); MEAN CORPUSCULAR HEMOGLOBIN 27.3 pg (29.0-33.0); MEAN CORPUSCULAR HGB CONC 33.6 g/dl (32.0-37.0); MEAN CORPUSCULAR VOLUME 81.3 fl (82.0-101.0); MEAN PLATELET VOLUME 8.3 fl (7.4-10.4); MONOCYTE # 1.6 10^3/ul (0.3-0.9); MONOCYTES % 10.8 % (0.0-11.0); NEUTROPHIL # 11.2 10^3/ul (1.6-7.5); NEUTROPHILS % 78.1 % (39.0-77.0); PLATELET COUNT 347 10^3/UL (140-440); RED BLOOD COUNT 3.24 10^6/ul (4.70-6.10); RED CELL DISTRIBUTION WIDTH 17.9 % (11.5-14.5); UNCORRECTED WBC 14.4 10^3/ul (4.8-10.8); WHITE BLOOD COUNT 14.4 10^3/ul (4.8-10.8)
[2016-02-29 05:21] LABS: CONDITION 1; LH ANALYZER COMMENTS 1
[2016-02-29 05:40] LABS: MAGNESIUM 2.3 mg/dl (1.7-2.5); PHOSPHORUS 4.5 mg/dl (2.5-4.9)
[2016-02-29 05:46] LABS: POTASSIUM 4.1 mmol/L (3.5-5.1)
[2016-02-29 05:49] LABS: CALCIUM 8.3 mg/dl (8.4-10.2); CREATININE 1.41 mg/dl (0.61-1.24)
[2016-02-29] MEDS: PANTOPRAZOLE 40 MG INJ IV SCH (05:59)
[2016-02-29] MEDS: metroNIDAZOLE 500 MG TAB PO SCH ×3 (05:59→22:29)
[2016-02-29] MEDS: METOPROLOL 100 MG TAB PO SCH ×3 (05:59→22:29)
[2016-02-29] MEDS: INSULIN ASPART [NOVOLOG] 3 ML PEN SC SCH ×4 (06:00→18:00)
--- NOTE | 2016-02-29 07:01 | RADRPT ---
PROCEDURE: XR Chest. CLINICAL INDICATION: Pneumonia TECHNIQUE: Portable single view of the chest COMPARISON: 02/27 FINDINGS: Since the prior study, there has been no significant interval change in the appearance of the heart or lungs or position of tubes and lines allowing for slight differences in technique and positioning . Cardiomegaly and pulmonary vascular congestion with left base air space disease. IMPRESSION: No significant interval change. RPTAT: HLBE Denia Saeed Physician Date Time Electronically viewed and signed by Denia Saeed Physician on 02/29/2016 07:01 [place]/
[2016-02-29] MEDS: MINOXIDIL 2.5 MG TAB PO SCH ×2 (08:24→21:29)
[2016-02-29] MEDS: LEVETIRACETAM IV 1,000 MG in SOD CHLORIDE 0.9% 100 ML IVPB SCH ×2 (08:24→21:29)
[2016-02-29] MEDS: AMLODIPINE 5 MG TAB PO SCH ×2 (08:24→21:29)
[2016-02-29] MEDS: FUROSEMIDE 20 MG INJ IV SCH (08:24)
[2016-02-29] MEDS: FERROUS SULFATE 60 MG/ML 5ML CUP GTB SCH ×2 (08:24→21:29)
[2016-02-29] MEDS: HEPARIN 5,000 UNIT/0.5 ML SYG SC SCH ×2 (08:29→21:31)
[2016-02-29] MEDS: ALBUMIN HUMAN 25% 100 ML IV SCH (08:42)
--- NOTE | 2016-02-29 08:51 | PN ---
Date/Time of Note Date/Time of Note DATE: 02/29/16 TIME: 08:49 Assessment/Plan VTE Prophylaxis VTE Prophylaxis Intervention: heparin Lines/Catheters IV Catheter Type (from [facility]): PICC Line Central line still needed: Yes Urinary Cath still in place: Yes Reason Cath still needed: other (indicate) Assessment/Plan Chief Complaint/Hosp Course 1. Type B aortic dissection. Continue blood pressure control. Continue ICU monitoring. Status post evaluation by vascular surgery. No surgical intervention as of now. 2. Accelerated hypertension. Currently controlled. On antihypertensives. 3. Acute hypoxic respiratory failure. Etiology unclear. Most probably secondary to aspiration. Continue ventilator support as per pulmonary. 4. Aspiration pneumonia. Continue antibiotics as per infectious diseases. 5. Acute kidney injury, most probably secondary to hemodynamics. Nephrology following. Use nephrotoxic drugs with caution. 6. Left cephalic vein thrombosis. Continue elevation. No need for therapeutic anticoagulation since this is the superficial vein. 7. Microcytic hypochromic anemia. Iron panel showing iron deficiency. Continue iron supplements. 8. Acute encephalopathy, most probably metabolic in origin. Electroencephalography showing background slowing suggesting bihemispheric subcortical dysfunction, possibly epileptiform activity. The patient was started on anticonvulsants for the same. 9. Sepsis secondary to gram-positive bacteremia. Latest blood cultures are negative. On antibiotics as per infectious diseases. 10. Fluids, electrolytes, and nutrition. Continue NG tube feedings. 11. Deep venous thrombosis prophylaxis. Subcutaneous heparin. 12. Gastrointestinal prophylaxis. Proton pump inhibitor. PLAN: Continue intensive care unit monitoring. Ventilator weaning as per pulmonary. Case discussed with Dr. Hernandez. Critical care time 35 minutes. Problems: Subjective 24 Hr Interval Summary Free Text/Dictation The patient remains on the Vent. Failed weaning yesterday. Exam/Review of Systems Vital Signs Vitals Vital Signs Date Time Temp Pulse Resp B/P Pulse Ox O2 Delivery O2 Flow Rate FiO2 02/29/16 07:35 74 20 98 30 02/29/16 05:45 136/76 Mechanical Ventilator 02/29/16 04:00 99.0 Intake and Output 02/28/16 02/28/16 02/29/16 15:00 23:00 07:00 Intake Total 1235 ml 717.615 ml 603.938 ml Output Total 1305 ml 710 ml 634 ml Balance -70 ml 7.615 ml -30.062 ml Exam HEENT: Head normocephalic and atraumatic. Eyes: Anicteric sclerae. Conjunctivae clear. ENT: Nasal septum is midline. Oral mucosa is dry. NECK: Short and obese. Unable to visualize any neck veins. CARDIAC: Regular rate and rhythm. S1 and S2 heard. ABDOMEN: Protruded. Soft. Bowel sounds hypoactive in all 4 quadrants. GENITOURINARY: The patient has a Smalls catheter in place. EXTREMITIES: No cyanosis, no clubbing. Edema of bilateral lower extremities and bilateral upper extremities. Right upper extremity PICC line in place. Peripheral pulses palpable. NEUROLOGIC: The patient is sedated. Results Result Diagram: 02/29/16 0410 02/29/16 0410 Results 24 hrs Laboratory Tests Test 02/28/16 10:09 02/28/16 12:24 02/28/16 17:54 02/29/16 00:48 Lab Scanned Report REFERENCE LAB Bedside Glucose 126 126 107 Test 02/29/16 04:10 02/29/16 06:07 Anion Gap 16 Basophils # 0.1 Basophils % 0.6 Blood Morphology Comment Blood Urea Nitrogen 27 H Calcium Level 8.3 L Carbon Dioxide Level 25 Chloride Level 107 Creatinine 1.41 H Eosinophils # 0.5 Eosinophils % 3.5 Glucose Level 127 Hematocrit 26.3 L Hemoglobin 8.8 L Lymphocytes # 1.0 Lymphocytes % 7.0 L Magnesium Level 2.3 Mean Corpuscular Hemoglobin 27.3 L Mean Corpuscular Hemoglobin Concent 33.6 Mean Corpuscular Volume 81.3 L Mean Platelet Volume 8.3 Monocytes # 1.6 H Monocytes % 10.8 Neutrophils # 11.2 H Neutrophils % 78.1 H Nucleated Red Blood Cells # 0.0 Nucleated Red Blood Cells % 0.0 Phosphorus Level 4.5 Platelet Count 347 Potassium Level 4.1 Red Blood Count 3.24 L Red Cell Distribution Width 17.9 H Sodium Level 144 White Blood Count 14.4 H Bedside Glucose 119 Medications Medications Current Medications Ondansetron HCl (Zofran Inj) 4 mg Q6H PRN IV NAUSEA AND/OR VOMITING; Start 02/18/16 at 09:30 Acetaminophen (Tylenol Supp) 650 mg Q4H PRN [place] PAIN LEVEL 1-3 OR FEVER Last administered on 02/24/16at 14:32; Admin Dose 650 MG; Start 02/18/16 at 09:30 Morphine Sulfate (morphine) 2 mg Q4H PRN IV PAIN LEVEL 7-10 Last administered on 02/28/16 09:42; Admin Dose 2 MG; Start 02/18/16 at 09:30 Bisacodyl (Dulcolax Supp) 10 mg DAILY PRN NE CONSTIPATION; Start 02/18/16 at 09 :30 Pantoprazole (Protonix Iv) 40 mg DAILY@06 IV Last administered on 02/29/16 05 :59; Admin Dose 40 MG; Start 02/19/16 at 06:00 Amlodipine Besylate (Norvasc) 5 mg BID PO Last administered on 02/29/16 08:24 ; Admin Dose 5 MG; Start 02/20/16 at 21:00 Hydralazine HCl (Apresoline) 10 mg Q6H PRN IV ELEVATED SYSTOLIC BP Last administered on 02/29/16 04:13; Admin Dose 10 MG; Start 02/20/16 at 22:00 Minoxidil (Loniten) 5 mg BID PO Last administered on 02/29/16 08:24; Admin Dose 5 MG; Start 02/20/16 at 22:00 Metoprolol Tartrate 5 mg 5 mg Q4H PRN IV HR>55 Hold SBP<100 Last administered on 02/29/16 03:33; Admin Dose 5 MG; Start 02/21/16 at 11:30 Propofol 100 ml @ 3.189 mls/ hr Q12H IV Last administered on 02/29/16 06:38 ; Admin Dose 22.323 MLS/HR; Start 02/21/16 at 16:30 Fentanyl/Dextrose (D5W) 100 ml @ 0 mls/hr TITRATE IV Last administered on 02/28 03:49; Admin Dose 10 MLS/HR; Start 02/21/16 at 16:30 IV Flush (NS 10 ml) 10 ml PRN PRN IV IV PROTOCOL; Start 02/21/16 at 18:30 Ferrous Sulfate (Feosol Liquid Cup) 300 mg BID GTB Last administered on 08:24; Admin Dose 300 MG; Start 02/22/16 at 10:00 Heparin Sodium (Porcine) (Heparin (5000 Units/0.5 ml)) 5,000 unit BID SC Last administered on 02/29/16 08:29; Admin Dose 5,000 UNIT; Start 02/22/16 at 21:00 Lorazepam 1 mg 1 mg Q1H PRN IV ANXIETY Last administered on 02/29/16at 04:16; Admin Dose 1 MG; Start 02/23/16 at 11:30 Fluconazole/ Sodium Chloride (Diflucan 100 Mg/ NS (Pmx)) 50 ml @ 50 mls/hr Q24H IVPB Last administered on 02/28/16at 13:25; Admin Dose 50 MLS/HR; Start at 14:00 Miscellaneous Information 1 ea NOTE XX ; Start 02/23/16 at 23:15 Glucose (Glutose) 15 gm Q15M PRN PO DECREASED GLUCOSE; Start 02/23/16 at 23:15 Glucose (Glutose) 22.5 gm Q15M PRN PO DECREASED GLUCOSE; Start 02/23/16 at 23: 15 Dextrose (D50w Syringe) 25 ml Q15M PRN IV DECREASED GLUCOSE; Start 02/23/16 at 23:15 Dextrose (D50w Syringe) 50 ml Q15M PRN IV DECREASED GLUCOSE; Start 02/23/16 at 23:15 Glucagon (Glucagen) 1 mg Q15M PRN IM DECREASED GLUCOSE; Start 02/23/16 at 23:15 Glucose 15 gm 15 gm Q15M PRN BUCCAL DECREASED GLUCOSE; Start 02/23/16 at 23:15 Levetiracetam/ Sodium Chloride (Keppra Iv/NS) 110 ml @ 440 mls/hr BID IVPB Last administered on 02/29/16at 08:24; Admin Dose 440 MLS/HR; Start 02/24/16 at 01:00 Insulin Aspart NOVOLOG *MILD* ALGORI... Q6 SC Last administered on 02/27/16at 17:19; Admin Dose 1 UNIT; Start 02/26/16 at 18:00 Albumin Human (Albumin Human 25%) 100 ml @ 100 mls/hr DAILY IV Last administered on 02/29/16at 08:42; Admin Dose 100 MLS/HR; Start 02/27/16 at 09: 00; Stop 02/29/16 at 09:59 Furosemide 20 mg 20 mg DAILY IV Last administered on 02/29/16at 08:24; Admin Dose 20 MG; Start 02/27/16 at 09:00 Ceftriaxone Sodium (Rocephin) 50 ml @ 100 mls/hr Q24H IVPB Last administered on 02/28/16at 12:58; Admin Dose 100 MLS/HR; Start 02/27/16 at 13:00 Metronidazole (Flagyl) 500 mg Q8 PO Last administered on 02/29/16at 05:59; Admin Dose 500 MG; Start 02/27/16 at 14:00 Hydralazine HCl (Apresoline) 50 mg Q8 PO Last administered on 02/29/16at 05:59 ; Admin Dose 50 MG; Start 02/28/16 at 14:00 Metoprolol Tartrate (Lopressor) 100 mg Q8 PO Last administered on 02/29/16at 05 :59; Admin Dose 100 MG; Start 02/28/16 at 14:00 KEITH CRAIG NP Feb 29, 2016 08:51
--- NOTE | 2016-02-29 10:01 | CONS ---
Date/Time of Note Date/Time of Note DATE: 02/29/16 TIME: 09:58 Assessment/Plan Assessment/Plan Chief Complaint/Hosp Course Imp: 1.HTN emergency-NL EF by echo this admit-under reasonable control on PO medications only. Off all drips but having increased BP when agitated/stimulated 2.Aortic dissection-type B 3.abnl ecg-lateral TWI-negative troponin x 3 since admit 4.anxiety 5.ARF 6. Pericardial effusion by echo-small with NL EF 7.Encephalopathic Recc: -Tele in ICU -Follow volume status closely -serial ecg's -Continue PO BB/CCB/minoxindil/hydralazine and follow bp closely and will continue to make slight increase to PO BB/hydralazine to improve BP -ongoing surgical follow-up -f/u MS closely -Vent weaning as tolerated Problems: Consultation Date/Type/Reason Admit Date/Time Feb 18, 2016 at 09:14 Initial Consult Date 02/19/2016 Type of Consultation: Cardiology Reason for Consultation aortic dissection/HTN Referring Provider: ANAYA BREWSTER MD, [facility] Exam/Review of Systems Vital Signs Vitals Vital Signs Date Time Temp Pulse Resp B/P Pulse Ox O2 Delivery O2 Flow Rate FiO2 02/29/16 09:45 84 20 98 30 02/29/16 08:45 156/82 02/29/16 07:30 97.9 Mechanical Ventilator Intake and Output 02/28/16 02/28/16 02/29/16 15:00 23:00 07:00 Intake Total 1235 ml 717.615 ml 636.261 ml Output Total 1305 ml 710 ml 634 ml Balance -70 ml 7.615 ml 2.261 ml Exam Review of Systems: CONSTITUTIONAL: No fevers, chills. PULMONARY: intubated CARDIOVASCULAR: No obvious chest pain/palpitations GASTROINTESTINAL: No nausea/vomiting. GENITOURINARY: No hematuria/dysuria. MUSCULOSKELETAL: No obvious myagias/arthalgias. PSYCHIATRIC: The patient denies depression. NEUROLOGIC: sedated Constitutional: other (sedated) Psych: no complaints Head: normocephalic ENMT: mucosa pink and moist Neck: jvd (9 cm water), supple Respiratory: other (upper airway rhonchi) Cardiovascular: regular rate and rhythm Gastrointestinal: non-tender, soft Musculoskeletal: muscle tone (normal) Extremities: edema (none) Neurological: other (No focal deficits) Results Result Diagram: 02/29/16 0410 02/29/16 0410 Results 24 hrs Laboratory Tests Test 02/28/16 10:09 02/28/16 12:24 02/28/16 17:54 02/29/16 00:48 Lab Scanned Report REFERENCE LAB Bedside Glucose 126 126 107 Test 02/29/16 04:10 02/29/16 06:07 Anion Gap 16 Basophils # 0.1 Basophils % 0.6 Blood Morphology Comment Blood Urea Nitrogen 27 H Calcium Level 8.3 L Carbon Dioxide Level 25 Chloride Level 107 Creatinine 1.41 H Eosinophils # 0.5 Eosinophils % 3.5 Glucose Level 127 Hematocrit 26.3 L Hemoglobin 8.8 L Lymphocytes # 1.0 Lymphocytes % 7.0 L Magnesium Level 2.3 Mean Corpuscular Hemoglobin 27.3 L Mean Corpuscular Hemoglobin Concent 33.6 Mean Corpuscular Volume 81.3 L Mean Platelet Volume 8.3 Monocytes # 1.6 H Monocytes % 10.8 Neutrophils # 11.2 H Neutrophils % 78.1 H Nucleated Red Blood Cells # 0.0 Nucleated Red Blood Cells % 0.0 Phosphorus Level 4.5 Platelet Count 347 Potassium Level 4.1 Red Blood Count 3.24 L Red Cell Distribution Width 17.9 H Sodium Level 144 White Blood Count 14.4 H Bedside Glucose 119 Medications Medications Current Medications Ondansetron HCl (Zofran Inj) 4 mg Q6H PRN IV NAUSEA AND/OR VOMITING; Start 02/18/16 at 09:30 Acetaminophen (Tylenol Supp) 650 mg Q4H PRN [place] PAIN LEVEL 1-3 OR FEVER Last administered on 02/24/16at 14:32; Admin Dose 650 MG; Start 02/18/16 at 09:30 Morphine Sulfate (morphine) 2 mg Q4H PRN IV PAIN LEVEL 7-10 Last administered on 02/28/16at 09:42; Admin Dose 2 MG; Start 02/18/16 at 09:30 Bisacodyl (Dulcolax Supp) 10 mg DAILY PRN [place] CONSTIPATION; Start 02/18/16 at 09 :30 Pantoprazole (Protonix Iv) 40 mg DAILY@06 IV Last administered on 02/29/16at 05 :59; Admin Dose 40 MG; Start 02/19/16 at 06:00 Amlodipine Besylate (Norvasc) 5 mg BID PO Last administered on 02/29/16 08:24 ; Admin Dose 5 MG; Start 02/20/16 at 21:00 Hydralazine HCl (Apresoline) 10 mg Q6H PRN IV ELEVATED SYSTOLIC BP Last administered on 02/29/16 04:13; Admin Dose 10 MG; Start 02/20/16 at 22:00 Minoxidil (Loniten) 5 mg BID PO Last administered on 02/29/16 08:24; Admin Dose 5 MG; Start 02/20/16 at 22:00 Metoprolol Tartrate 5 mg 5 mg Q4H PRN IV HR>55 Hold SBP<100 Last administered on 02/29/16 03:33; Admin Dose 5 MG; Start 02/21/16 at 11:30 Propofol 100 ml @ 3.189 mls/ hr Q12H IV Last administered on 02/29/16 06:38 ; Admin Dose 22.323 MLS/HR; Start 02/21/16 at 16:30 Fentanyl/Dextrose (D5W) 100 ml @ 0 mls/hr TITRATE IV Last administered on 02/28 03:49; Admin Dose 10 MLS/HR; Start 02/21/16 at 16:30 IV Flush (NS 10 ml) 10 ml PRN PRN IV IV PROTOCOL; Start 02/21/16 at 18:30 Ferrous Sulfate (Feosol Liquid Cup) 300 mg BID GTB Last administered on 08:24; Admin Dose 300 MG; Start 02/22/16 at 10:00 Heparin Sodium (Porcine) (Heparin (5000 Units/0.5 ml)) 5,000 unit BID SC Last administered on 02/29/16 08:29; Admin Dose 5,000 UNIT; Start 02/22/16 at 21:00 Lorazepam 1 mg 1 mg Q1H PRN IV ANXIETY Last administered on 02/29/16 04:16; Admin Dose 1 MG; Start 02/23/16 at 11:30 Fluconazole/ Sodium Chloride (Diflucan 100 Mg/ NS (Pmx)) 50 ml @ 50 mls/hr Q24H IVPB Last administered on 02/28/16 13:25; Admin Dose 50 MLS/HR; Start at 14:00 Miscellaneous Information 1 ea NOTE XX ; Start 02/23/16 at 23:15 Glucose (Glutose) 15 gm Q15M PRN PO DECREASED GLUCOSE; Start 02/23/16 at 23:15 Glucose (Glutose) 22.5 gm Q15M PRN PO DECREASED GLUCOSE; Start 02/23/16 at 23: 15 Dextrose (D50w Syringe) 25 ml Q15M PRN IV DECREASED GLUCOSE; Start 02/23/16 at 23:15 Dextrose (D50w Syringe) 50 ml Q15M PRN IV DECREASED GLUCOSE; Start 02/23/16 at 23:15 Glucagon (Glucagen) 1 mg Q15M PRN IM DECREASED GLUCOSE; Start 02/23/16 at 23:15 Glucose 15 gm 15 gm Q15M PRN BUCCAL DECREASED GLUCOSE; Start 02/23/16 at 23:15 Levetiracetam/ Sodium Chloride (Keppra Iv/NS) 110 ml @ 440 mls/hr BID IVPB Last administered on 02/29/16at 08:24; Admin Dose 440 MLS/HR; Start 02/24/16 at 01:00 Insulin Aspart NOVOLOG *MILD* ALGORI... Q6 SC Last administered on 02/27/16at 17:19; Admin Dose 1 UNIT; Start 02/26/16 at 18:00 Albumin Human (Albumin Human 25%) 100 ml @ 100 mls/hr DAILY IV Last administered on 02/29/16at 08:42; Admin Dose 100 MLS/HR; Start 02/27/16 at 09: 00; Stop 02/29/16 at 09:59 Furosemide 20 mg 20 mg DAILY IV Last administered on 02/29/16at 08:24; Admin Dose 20 MG; Start 02/27/16 at 09:00 Ceftriaxone Sodium (Rocephin) 50 ml @ 100 mls/hr Q24H IVPB Last administered on 02/28/16at 12:58; Admin Dose 100 MLS/HR; Start 02/27/16 at 13:00 Metronidazole (Flagyl) 500 mg Q8 PO Last administered on 02/29/16at 05:59; Admin Dose 500 MG; Start 02/27/16 at 14:00 Hydralazine HCl (Apresoline) 50 mg Q8 PO Last administered on 02/29/16at 05:59 ; Admin Dose 50 MG; Start 02/28/16 at 14:00 Metoprolol Tartrate (Lopressor) 100 mg Q8 PO Last administered on 02/29/16at 05 :59; Admin Dose 100 MG; Start 02/28/16 at 14:00 JUNAID PAZ Feb 29, 2016 10:01
--- NOTE | 2016-02-29 10:31 | CONS ---
Date/Time of Note Date/Time of Note DATE: 02/29/16 TIME: 10:30 Consult Date/Type/Reason Admit Date/Time Feb 18, 2016 at 09:14 Type of Consultation: Pulm Ordering Provider: ANAYA BREWSTER MD, [facility] Subjective Continues vent Agitated BP stable this am. Objective Vital Signs Date Time Temp Pulse Resp B/P Pulse Ox O2 Delivery O2 Flow Rate FiO2 02/29/16 09:45 84 20 98 30 02/29/16 08:45 156/82 02/29/16 07:30 97.9 Mechanical Ventilator Intake and Output 02/28/16 02/28/16 02/29/16 15:00 23:00 07:00 Intake Total 1235 ml 717.615 ml 636.261 ml Output Total 1305 ml 710 ml 634 ml Balance -70 ml 7.615 ml 2.261 ml PHYSICAL EXAMINATION GENERAL: A well-nourished well-developed gentleman intubated on mechanical ventilation. VITAL SIGNS: see below. HEENT: Pupils equal, round, and reactive to light. enlarged swollen tongue, protruding CARDIAC: S1, S2, tachycardia. CHEST: Diminished air entry bilaterally. ABDOMEN: Mildly distended. No bowel sounds. EXTREMITIES: No cyanosis, clubbing edema +1 upper extremities NEUROLOGIC: generalized weakness. Results/Medications Result Diagram: 02/29/160 02/29/16 041 Results 24 hrs Laboratory Tests Test 02/28/16 12:24 02/28/16 17:54 02/29/16 00:48 02/29/16 04:10 Bedside Glucose 126 126 107 Anion Gap 16 Basophils # 0.1 Basophils % 0.6 Blood Morphology Comment Blood Urea Nitrogen 27 H Calcium Level 8.3 L Carbon Dioxide Level 25 Chloride Level 107 Creatinine 1.41 H Eosinophils # 0.5 Eosinophils % 3.5 Glucose Level 127 Hematocrit 26.3 L Hemoglobin 8.8 L Lymphocytes # 1.0 Lymphocytes % 7.0 L Magnesium Level 2.3 Mean Corpuscular Hemoglobin 27.3 L Mean Corpuscular Hemoglobin Concent 33.6 Mean Corpuscular Volume 81.3 L Mean Platelet Volume 8.3 Monocytes # 1.6 H Monocytes % 10.8 Neutrophils # 11.2 H Neutrophils % 78.1 H Nucleated Red Blood Cells # 0.0 Nucleated Red Blood Cells % 0.0 Phosphorus Level 4.5 Platelet Count 347 Potassium Level 4.1 Red Blood Count 3.24 L Red Cell Distribution Width 17.9 H Sodium Level 144 White Blood Count 14.4 H Test 02/29/16 06:07 Bedside Glucose 119 Medications Current Medications Ondansetron HCl (Zofran Inj) 4 mg Q6H PRN IV NAUSEA AND/OR VOMITING; Start 02/18/16 at 09:30 Acetaminophen (Tylenol Supp) 650 mg Q4H PRN [place] PAIN LEVEL 1-3 OR FEVER Last administered on 02/24/16at 14:32; Admin Dose 650 MG; Start 02/18/16 at 09:30 Morphine Sulfate (morphine) 2 mg Q4H PRN IV PAIN LEVEL 7-10 Last administered on 02/28/16at 09:42; Admin Dose 2 MG; Start 02/18/16 at 09:30 Bisacodyl (Dulcolax Supp) 10 mg DAILY PRN [place] CONSTIPATION; Start 02/18/16 at 09 :30 Pantoprazole (Protonix Iv) 40 mg DAILY@06 IV Last administered on 02/29/16at 05 :59; Admin Dose 40 MG; Start 02/19/16 at 06:00 Amlodipine Besylate (Norvasc) 5 mg BID PO Last administered on 02/29/16at 08:24 ; Admin Dose 5 MG; Start 02/20/16 at 21:00 Hydralazine HCl (Apresoline) 10 mg Q6H PRN IV ELEVATED SYSTOLIC BP Last administered on 02/29/16at 10:02; Admin Dose 10 MG; Start 02/20/16 at 22:00 Minoxidil (Loniten) 5 mg BID PO Last administered on 02/29/16at 08:24; Admin Dose 5 MG; Start 02/20/16 at 22:00 Metoprolol Tartrate 5 mg 5 mg Q4H PRN IV HR>55 Hold SBP<100 Last administered on 02/29/16at 03:33; Admin Dose 5 MG; Start 02/21/16 at 11:30 Propofol 100 ml @ 3.189 mls/ hr Q12H IV Last administered on 02/29/16at 06:38 ; Admin Dose 22.323 MLS/HR; Start 02/21/16 at 16:30 Fentanyl/Dextrose (D5W) 100 ml @ 0 mls/hr TITRATE IV Last administered on 02/28at 03:49; Admin Dose 10 MLS/HR; Start 02/21/16 at 16:30 IV Flush (NS 10 ml) 10 ml PRN PRN IV IV PROTOCOL; Start 02/21/16 at 18:30 Ferrous Sulfate (Feosol Liquid Cup) 300 mg BID GTB Last administered on at 08:24; Admin Dose 300 MG; Start 02/22/16 at 10:00 Heparin Sodium (Porcine) (Heparin (5000 Units/0.5 ml)) 5,000 unit BID SC Last administered on 02/29/16at 08:29; Admin Dose 5,000 UNIT; Start 02/22/16 at 21:00 Lorazepam 1 mg 1 mg Q1H PRN IV ANXIETY Last administered on 02/29/16at 04:16; Admin Dose 1 MG; Start 02/23/16 at 11:30 Fluconazole/ Sodium Chloride (Diflucan 100 Mg/ NS (Pmx)) 50 ml @ 50 mls/hr Q24H IVPB Last administered on 02/28/16at 13:25; Admin Dose 50 MLS/HR; Start at 14:00 Miscellaneous Information 1 ea NOTE XX ; Start 02/23/16 at 23:15 Glucose (Glutose) 15 gm Q15M PRN PO DECREASED GLUCOSE; Start 02/23/16 at 23:15 Glucose (Glutose) 22.5 gm Q15M PRN PO DECREASED GLUCOSE; Start 02/23/16 at 23: 15 Dextrose (D50w Syringe) 25 ml Q15M PRN IV DECREASED GLUCOSE; Start 02/23/16 at 23:15 Dextrose (D50w Syringe) 50 ml Q15M PRN IV DECREASED GLUCOSE; Start 02/23/16 at 23:15 Glucagon (Glucagen) 1 mg Q15M PRN IM DECREASED GLUCOSE; Start 02/23/16 at 23:15 Glucose 15 gm 15 gm Q15M PRN BUCCAL DECREASED GLUCOSE; Start 02/23/16 at 23:15 Levetiracetam/ Sodium Chloride (Keppra Iv/NS) 110 ml @ 440 mls/hr BID IVPB Last administered on 02/29/16at 08:24; Admin Dose 440 MLS/HR; Start 02/24/16 at 01:00 Insulin Aspart (Novolog Insulin Pen) NOVOLOG *MILD* ALGORI... Q6 SC Last administered on 02/27/16at 17:19; Admin Dose 1 UNIT; Start 02/26/16 at 18:00 Furosemide 20 mg 20 mg DAILY IV Last administered on 02/29/16at 08:24; Admin Dose 20 MG; Start 02/27/16 at 09:00 Ceftriaxone Sodium (Rocephin) 50 ml @ 100 mls/hr Q24H IVPB Last administered on 02/28/16at 12:58; Admin Dose 100 MLS/HR; Start 02/27/16 at 13:00 Metronidazole (Flagyl) 500 mg Q8 PO Last administered on 02/29/16at 05:59; Admin Dose 500 MG; Start 02/27/16 at 14:00 Hydralazine HCl (Apresoline) 75 mg Q8 PO ; Start 02/29/16 at 14:00; Status UNV Metoprolol Tartrate (Lopressor) 125 mg Q8 PO ; Start 02/29/16 at 14:00; Status UNV Assessment/Plan Chief Complaint/Hosp Course IMPRESSION 1. Hypertensive Emergency 2. Type B Aortic Dissection 3. Encephalopathy, possibly secondary to antihypertensive medications. Questionable new onset seizures rule out CVA 4. Aspiration pneumonia with hypoxemic respiratory failure. 5. FARRUKH RECS: 1. Vent support unable to wean at present secondary to AMS, hypertension and upper airway edema. 2. Continue BP control 3. Sedation vacation as tolerated. 4. Replete lytes 5. Am CXR/ABG 6. Abx per ID prognosis guarded Problems: ANAYA BREWSTER MD, [facility] Feb 29, 2016 10:31
[2016-02-29 11:15] LABS: AADO2 Arterial 92.4 mmHg (7.0-24.0); Allen Test ACCEPTAB; Arterial Base Excess -0.1 mmol/L (-3.0-3); Arterial COHb 0.4 % (0.0-3.0); Arterial Fraction of Oxyhgb 93.3 % (93.0-99.0); Arterial HCO3 24.8 mmol/L (22.0-26.0); Arterial MetHb 0.2 % (0.0-1.5); Arterial Total Hemglobin 8.2 g/dl (12.0-18.0); MODE VENT - AC
--- NOTE | 2016-02-29 12:35 | CONS ---
Date/Time of Note Date/Time of Note DATE: 02/29/16 TIME: 12:30 Assessment/Plan Assessment/Plan Chief Complaint/Hosp Course Additional Assessment/Plan 1. Acute kidney injury, likely secondary to acute tubular necrosis from contrast-induced nephropathy and also secondary to ischemic acute tubular necrosis from aortic dissection. 2. A type B Helio aortic dissection. 3. Hypertensive emergency on multiple drips. 4. acute resp failiure intubated on ventilator 5 EDEMA plan ck lytes LASIX Problems: Consultation Date/Type/Reason Admit Date/Time Feb 18, 2016 at 09:14 Initial Consult Date 02/26/16 Type of Consultation: RENAL Referring Provider: ANAYA BREWSTER MD, [facility] 24 HR Interval Summary Constitutional: other (ON VENT) Exam/Review of Systems Vital Signs Vitals Vital Signs Date Time Temp Pulse Resp B/P Pulse Ox O2 Delivery O2 Flow Rate FiO2 02/29/16 11:45 97 15 125/64 96 02/29/16 09:45 30 02/29/16 07:30 100.9 Mechanical Ventilator Intake and Output 02/28/16 02/28/16 02/29/16 15:00 23:00 07:00 Intake Total 1235 ml 717.615 ml 686.261 ml Output Total 1305 ml 710 ml 634 ml Balance -70 ml 7.615 ml 52.261 ml Exam Respiratory: diminished breath sounds Cardiovascular: regular rate and rhythm Gastrointestinal: bowel sounds (POS), soft Extremities: edema (POSITIVE) Results Result Diagram: 02/29/16 0410 02/29/16 0410 Results 24 hrs Laboratory Tests Test 02/28/16 17:54 02/29/16 00:48 02/29/16 04:10 02/29/16 06:07 Bedside Glucose 126 107 119 Anion Gap 16 Basophils # 0.1 Basophils % 0.6 Blood Morphology Comment Blood Urea Nitrogen 27 H Calcium Level 8.3 L Carbon Dioxide Level 25 Chloride Level 107 Creatinine 1.41 H Eosinophils # 0.5 Eosinophils % 3.5 Glucose Level 127 Hematocrit 26.3 L Hemoglobin 8.8 L Lymphocytes # 1.0 Lymphocytes % 7.0 L Magnesium Level 2.3 Mean Corpuscular Hemoglobin 27.3 L Mean Corpuscular Hemoglobin Concent 33.6 Mean Corpuscular Volume 81.3 L Mean Platelet Volume 8.3 Monocytes # 1.6 H Monocytes % 10.8 Neutrophils # 11.2 H Neutrophils % 78.1 H Nucleated Red Blood Cells # 0.0 Nucleated Red Blood Cells % 0.0 Phosphorus Level 4.5 Platelet Count 347 Potassium Level 4.1 Red Blood Count 3.24 L Red Cell Distribution Width 17.9 H Sodium Level 144 White Blood Count 14.4 H Medications Medications Current Medications Ondansetron HCl (Zofran Inj) 4 mg Q6H PRN IV NAUSEA AND/OR VOMITING; Start 02/18/16 at 09:30 Acetaminophen (Tylenol Supp) 650 mg Q4H PRN [place] PAIN LEVEL 1-3 OR FEVER Last administered on 02/24/16at 14:32; Admin Dose 650 MG; Start 02/18/16 at 09:30 Morphine Sulfate (morphine) 2 mg Q4H PRN IV PAIN LEVEL 7-10 Last administered on 02/28/16at 09:42; Admin Dose 2 MG; Start 02/18/16 at 09:30 Bisacodyl (Dulcolax Supp) 10 mg DAILY PRN [place] CONSTIPATION; Start 02/18/16 at 09 :30 Pantoprazole (Protonix Iv) 40 mg DAILY@06 IV Last administered on 02/29/16at 05 :59; Admin Dose 40 MG; Start 02/19/16 at 06:00 Amlodipine Besylate (Norvasc) 5 mg BID PO Last administered on 02/29/16at 08:24 ; Admin Dose 5 MG; Start 02/20/16 at 21:00 Hydralazine HCl (Apresoline) 10 mg Q6H PRN IV ELEVATED SYSTOLIC BP Last administered on 02/29/16at 10:02; Admin Dose 10 MG; Start 02/20/16 at 22:00 Minoxidil (Loniten) 5 mg BID PO Last administered on 02/29/16at 08:24; Admin Dose 5 MG; Start 02/20/16 at 22:00 Metoprolol Tartrate 5 mg 5 mg Q4H PRN IV HR>55 Hold SBP<100 Last administered on 02/29/16at 03:33; Admin Dose 5 MG; Start 02/21/16 at 11:30 Propofol 100 ml @ 3.189 mls/ hr Q12H IV Last administered on 02/29/16at 10:32 ; Admin Dose 22.323 MLS/HR; Start 02/21/16 at 16:30 Fentanyl/Dextrose (D5W) 100 ml @ 0 mls/hr TITRATE IV Last administered on 02/28at 03:49; Admin Dose 10 MLS/HR; Start 02/21/16 at 16:30 IV Flush (NS 10 ml) 10 ml PRN PRN IV IV PROTOCOL; Start 02/21/16 at 18:30 Ferrous Sulfate (Feosol Liquid Cup) 300 mg BID GTB Last administered on at 08:24; Admin Dose 300 MG; Start 02/22/16 at 10:00 Heparin Sodium (Porcine) (Heparin (5000 Units/0.5 ml)) 5,000 unit BID SC Last administered on 02/29/16at 08:29; Admin Dose 5,000 UNIT; Start 02/22/16 at 21:00 Lorazepam 1 mg 1 mg Q1H PRN IV ANXIETY Last administered on 02/29/16at 04:16; Admin Dose 1 MG; Start 02/23/16 at 11:30 Fluconazole/ Sodium Chloride (Diflucan 100 Mg/ NS (Pmx)) 50 ml @ 50 mls/hr Q24H IVPB Last administered on 02/28/16at 13:25; Admin Dose 50 MLS/HR; Start at 14:00 Miscellaneous Information 1 ea NOTE XX ; Start 02/23/16 at 23:15 Glucose (Glutose) 15 gm Q15M PRN PO DECREASED GLUCOSE; Start 02/23/16 at 23:15 Glucose (Glutose) 22.5 gm Q15M PRN PO DECREASED GLUCOSE; Start 02/23/16 at 23: 15 Dextrose (D50w Syringe) 25 ml Q15M PRN IV DECREASED GLUCOSE; Start 02/23/16 at 23:15 Dextrose (D50w Syringe) 50 ml Q15M PRN IV DECREASED GLUCOSE; Start 02/23/16 at 23:15 Glucagon (Glucagen) 1 mg Q15M PRN IM DECREASED GLUCOSE; Start 02/23/16 at 23:15 Glucose 15 gm 15 gm Q15M PRN BUCCAL DECREASED GLUCOSE; Start 02/23/16 at 23:15 Levetiracetam/ Sodium Chloride (Keppra Iv/NS) 110 ml @ 440 mls/hr BID IVPB Last administered on 02/29/16at 08:24; Admin Dose 440 MLS/HR; Start 02/24/16 at 01:00 Insulin Aspart (Novolog Insulin Pen) NOVOLOG *MILD* ALGORI... Q6 SC Last administered on 02/27/16at 17:19; Admin Dose 1 UNIT; Start 02/26/16 at 18:00 Furosemide 20 mg 20 mg DAILY IV Last administered on 02/29/16at 08:24; Admin Dose 20 MG; Start 02/27/16 at 09:00 Ceftriaxone Sodium (Rocephin) 50 ml @ 100 mls/hr Q24H IVPB Last administered on 02/28/16at 12:58; Admin Dose 100 MLS/HR; Start 02/27/16 at 13:00 Metronidazole (Flagyl) 500 mg Q8 PO Last administered on 02/29/16at 05:59; Admin Dose 500 MG; Start 02/27/16 at 14:00 Hydralazine HCl (Apresoline) 75 mg Q8 PO ; Start 02/29/16 at 14:00 Metoprolol Tartrate (Lopressor) 100 mg Q8 PO ; Start 02/29/16 at 14:00 Metoprolol Tartrate (Lopressor) 25 mg Q8 PO ; Start 02/29/16 at 14:00 Acetaminophen (Tylenol Tab) 650 mg Q6H PRN PO PAIN AND OR ELEVATED TEMP; Start 02/29/16 at 11:30 SASHA OWEN MD Feb 29, 2016 12:35
[2016-02-29] MEDS: CEFTRIAXONE 1 GM/50 ML (PMX) 50 ML IVPB SCH (13:38)
[2016-02-29] MEDS: FLUCONAZOLE 100 MG/NS (PMX) 50 ML IVPB SCH (13:43)
[2016-02-29] MEDS: ACETAMINOPHEN 325 MG TAB PO PRN (13:49)
[2016-02-29] MEDS: METOPROLOL 25 MG TAB PO SCH ×2 (14:57→22:29)
--- NOTE | 2016-02-29 16:53 | PN ---
DATE: 02/29/2016 INFECTIOUS DISEASE PROGRESS NOTE SUBJECTIVE: No changes overnight. The patient spiked a temperature of 100.9 this a.m. and was panc ultured. He is sedated and intubated. VITAL SIGNS: Heart rate of 90, respirations 20, blood pressure 125/64, and saturations 97 on 30%. LABORATORY DATA: WBC 14.4, H and H 8.8 and 26.3, platelets 347, neutrophils 78.1, BUN 27, creatinin e 1.41. DIAGNOSTICS: Chest x-ray revealed no significant interval change. INDWELLINGS: The patient has endotracheal tube, NG tube, Smalls catheter, rectal tube, PICC line panfilo giovanna on February 20. ANTIMICROBIALS: 1. Ceftriaxone. 2. Fluconazole. 3. Flagyl. PHYSICAL EXAMINATION: GENERAL: An obese, well-developed, middle-aged man in no distress. HEENT: Head atraumatic, normocephalic. Sclerae anicteric. Buccal mucosa dry. NECK: Supple, trachea midline. CHEST: Rise symmetrical. Breath sounds diminished to bases. HEART: S1, S2. ABDOMEN: Soft. Bowel tones present. EXTREMITIES: Bilateral edema. ASSESSMENT: 1. Sepsis. 2. Acute respiratory failure but aspiration pneumonia, sputum culture grew E. coli and Angelina zoran cans. 3. New onset of seizures. 4. Acute renal failure. 5. Diarrhea, on empiric Flagyl. 6. Type B aortic dissection. 7. Hypertension urgency, blood pressure controlled. PLAN: The patient remains hemodynamically stable pending repeat cultures. Continue present care, a ntibiotics. Cardiology, pulmonary, cardiothoracic surgery and nephrology recommendations. Dictated By: HUSAM SANFORD ROTARY ENGINE ASSEMBLER for YESIKA LOPEZ/EFRAIN Conf#: [id number] DID#: [id number]
[2016-02-29] MEDS ORDERED: SOD CHLORIDE 0.9% 100 ML ONE (17:16)
[2016-02-29] MEDS ORDERED: IODIXANOL LOCM 100 ML BTL ONE (17:16)
--- NOTE | 2016-02-29 18:38 | RADRPT ---
PROCEDURE: CTA Neck. CLINICAL INDICATION: r/o aORTIC dISSECTION TECHNIQUE: The study was performed utilizing a GE multidetector CT scanner. Direct spiral 0.625 mm axial sections were obtained through the neck with the use of 100 cc of Omnipaque 350 nonionic intr avenous contrast material. Coronal and sagittal as well as maximal intensity projection reformation s were obtained. 3-D images were made. The images were reviewed on a PACS workstation. The total CT DIvol is 49 mGy and the DLP is 1154 mGy-cm. COMPARISON: No prior studies are available for comparison. FINDINGS: Noted is a dissection involving the thoracic aorta which arises distal to the left subclavian artery . There is flow visualized within both the true and false lumen. There is no evidence of extension of the dissection into the arch or involvement of the either right or left common carotid artery or vertebral artery. The bifurcation on the right and left appears normal with no plaque or stenosis. Cervical portion of the internal carotid arteries is of normal course and caliber. The vertebral arteries are of normal course and caliber with no dissection or stenosis. IMPRESSION: Normal CT angiogram of the extracranial carotid vasculature. Dissection thoracic aorta arising distal to the origin of the left subclavian artery with flow in tito th the true and false lumens. .Blas Lu MD, MD Date Time Electronically viewed and signed by .Blas Lu MD, on 02/29/2016 18:38 .A/
--- NOTE | 2016-02-29 19:02 | RADRPT ---
PROCEDURE: CTA Chest. CLINICAL INDICATION: r/o aORTIC dISSECTION TECHNIQUE: The study was performed utilizing a multidetector CT scanner. Direct spiral 1 mm axial sections were obtained from the thoracic inlet to the upper abdomen with the use of 100 cc of Omnipa que 350 nonionic intravenous contrast material and reformatted at 3 mm. Coronal reformations were ob tained. The images were reviewed on a PACS workstation. CT D I 48 mCi. Dose 1154 mCi per centimeter COMPARISON: No prior studies are available for comparison. FINDINGS: Noted is a dissection originating immediately distal to the origin of the left subclavian artery. T he dissection is seen extending through the diaphragm into the upper abdomen. The distal extent of the dissection is not clear on this study. There is flow present in both the true and false lumen i n the chest and to the level of the celiac artery. Distal to this level, no flow is seen in the fal se lumen. There is mild aneurysmal dilatation of the proximal descending thoracic aorta which measu res 4 cm in diameter. There is no evidence of intramural hemorrhage or rupture. There is flow seen within the celiac artery, superior mesenteric artery and renal arteries. There is partially occlusive thrombus present within the right pulmonary artery extending into the f irst order branches involving the right upper lobe and the right lower lobe. No emboli are seen in the left pulmonary arteries. There are small bilateral pleural effusions, left greater than right w ith bibasilar atelectasis. Noted is cardiomegaly with a small pericardial effusion. There are visi ble sub centimeter mediastinal nodes. Noted is the endotracheal tube with the tip 2 cm above the ca jase, a right upper extremity PICC line with the tip in the right atrium and an NG tube with the tip in the stomach. There is atelectasis present in the lingula. No alveolar infiltrate or mass is vi sualized. No upper abdominal or adrenal masses detected. There is high density fluid within the lumen of the gallbladder possibly representing vicarious excretion of contrast. Thoracic spine is normal. IMPRESSION: Dissection involving the thoracic aorta arising distal to the origin of the left subclavian artery a nd extending into the abdominal aorta. The distal extent was not included on the study. Flow withi n both true and false lumen to the level of the celiac artery. Partially occlusive pulmonary emboli extending from the right main pulmonary artery into the first a nd second order branches. Cardiomegaly. Small pericardial effusion. Bilateral atelectasis. High density fluid lumen of the gallbladder. Question vicarious excretion of contrast. Findings were telephoned to the nurse caring for this patient at 07:00 p.m. on date of exam. .Blas Lu MD, MD Date Time Electronically viewed and signed by .Blas Lu MD, MD on 02/29/2016 19:02 .A/
--- NOTE | 2016-02-29 20:11 | PN ---
Date/Time of Note Date/Time of Note DATE: 02/29/16 TIME: 20:08 Assessment/Plan Lines/Catheters IV Catheter Type (from Nrsg): PICC Line Smalls in Place (from Nrsg): Yes Assessment/Plan Chief Complaint/Hosp Course IMPRESSION: Type B aortic dissection. The patient's blood pressure more controlled RECOMMENDATIONS: At this time, we would continue blood pressure management, monitor vital signs and laboratory values in an intensive care unit setting. Vent support per pulm medicine No plan for surgery. Abx Cr. 1.4 Repeat CTA Dissection involving the thoracic aorta arising distal to the origin of the left subclavian artery and extending into the abdominal aorta. The distal extent was not included on the study. Flow within both true and false lumen to the level of the celiac artery. Would continue BP control no plan for surgery at this time I discussed with the patient and Dr. Mccabe and staff Problems: Subjective 24 Hr Interval Summary Aortic Dissection Constitutional: no complaints Pain Control: mild Exam/Review of Systems Vital Signs Vitals Vital Signs Date Time Temp Pulse Resp B/P Pulse Ox O2 Delivery O2 Flow Rate FiO2 02/29/16 18:30 80 20 136/75 98 02/29/16 17:14 30 02/29/16 17:00 99.7 02/29/16 07:30 Mechanical Ventilator Intake and Output 02/28/16 02/28/16 02/29/16 15:00 23:00 07:00 Intake Total 1235 ml 717.615 ml 686.261 ml Output Total 1305 ml 710 ml 634 ml Balance -70 ml 7.615 ml 52.261 ml Exam Eyes: EOMI, nl conjunctiva, nl lids, nl sclera ENMT: mucosa pink and moist, nl external ears & nose, nl lips & teeth, nl nasal mucosa & septum Neck: non-tender, supple Respiratory: diminished breath sounds Cardiovascular: nl pulses, regular rate and rhythm Results Result Diagram: 02/29/1640902/29/16409 KAYLYN RADFORD MD Feb 29, 2016 20:11
[2016-03-01] VITALS (84 sets, daily range): BP systolic 106–194; BP diastolic 58–112; PULSE 70–96; RESP 11–25
[2016-03-01] MEDS: PROPOFOL 100 ML IV SCH ×5 (01:14→17:43)
[2016-03-01] MEDS: IPRATROPIUM (HFA) 12.9 GM INHALER INH SCH ×4 (01:25→19:51)
[2016-03-01] MEDS: ALBUTEROL HFA 8 GM INHALER INH SCH ×4 (01:25→19:51)
[2016-03-01] MEDS: LORAZEPAM 2 MG INJ IV PRN ×3 (01:31→18:03)
[2016-03-01] MEDS: METOPROLOL 5 MG INJ IV PRN (01:33)
[2016-03-01] MEDS: FENTAnyl 1,000 MCG in DEXTROSE 5% 80 ML IV SCH ×4 (01:39→21:37)
[2016-03-01] MEDS: hydrALAzine 20 MG INJ IV PRN (02:22)
[2016-03-01 05:11] LABS: BASOPHIL # 0.2 10^3/ul (0.0-0.1); BASOPHILS % 1.1 % (0.0-2.0); EOSINOPHILS # 0.6 10^3/ul (0.0-0.5); EOSINOPHILS % 4.2 % (0.0-7.0); HEMATOCRIT 27.5 % (42.0-52.0); HEMOGLOBIN 9.1 g/dl (14.0-18.0); LYMPHOCYTES # 1.1 10^3/ul (0.8-2.9); LYMPHOCYTES % 7.3 % (15.0-51.0); MEAN CORPUSCULAR HEMOGLOBIN 26.9 pg (29.0-33.0); MEAN CORPUSCULAR HGB CONC 33.2 g/dl (32.0-37.0); MEAN PLATELET VOLUME 8.3 fl (7.4-10.4); MONOCYTE # 1.5 10^3/ul (0.3-0.9); MONOCYTES % 9.7 % (0.0-11.0); NEUTROPHIL # 11.9 10^3/ul (1.6-7.5); NEUTROPHILS % 77.7 % (39.0-77.0); PLATELET COUNT 388 10^3/UL (140-440); RED CELL DISTRIBUTION WIDTH 17.8 % (11.5-14.5); UNCORRECTED WBC 15.3 10^3/ul (4.8-10.8); WHITE BLOOD COUNT 15.3 10^3/ul (4.8-10.8)
[2016-03-01 05:16] LABS: POTASSIUM 4.5 mmol/L (3.5-5.1)
[2016-03-01 05:18] LABS: CONDITION 1; LH ANALYZER COMMENTS 1
[2016-03-01 05:19] LABS: CREATININE 1.35 mg/dl (0.61-1.24)
[2016-03-01 05:20] LABS: CALCIUM 8.8 mg/dl (8.4-10.2)
[2016-03-01 05:25] LABS: PHOSPHORUS 4.3 mg/dl (2.5-4.9)
[2016-03-01 05:26] LABS: MAGNESIUM 2.4 mg/dl (1.7-2.5)
[2016-03-01] MEDS: INSULIN ASPART [NOVOLOG] 3 ML PEN SC SCH ×5 (06:00→23:07)
[2016-03-01] MEDS: PANTOPRAZOLE 40 MG INJ IV SCH (06:08)
[2016-03-01] MEDS: METOPROLOL 25 MG TAB PO SCH ×3 (06:09→21:30)
[2016-03-01] MEDS: metroNIDAZOLE 500 MG TAB PO SCH ×3 (06:09→21:30)
[2016-03-01] MEDS: METOPROLOL 100 MG TAB PO SCH ×3 (06:10→21:31)
--- NOTE | 2016-03-01 06:52 | RADRPT ---
PROCEDURE: XR Chest. CLINICAL INDICATION: Respiratory failure TECHNIQUE: Portable single view of the chest COMPARISON: 02/28 FINDINGS: Tubes and lines remain in good position. Significant enlargement of the cardiopericardial silhouett e is again seen. The aorta is ectatic and tortuous. Lung volumes are reduced compared with prior s tudy. Veiling density of the left hemithorax has increased which may be due to developing effusion. Mild pulmonary vascular congestion and interstitial edema. IMPRESSION: Possible increasing left pleural effusion. Reduced lung volumes. RPTAT: HLBE Physician Shola Date Time Electronically viewed and signed by Physician Shola on 03/01/2016 06:51 [place]AK[place]/
[2016-03-01] MEDS: FERROUS SULFATE 60 MG/ML 5ML CUP GTB SCH ×2 (09:04→20:16)
[2016-03-01] MEDS: FUROSEMIDE 20 MG INJ IV SCH (09:05)
--- NOTE | 2016-03-01 09:06 | PN ---
Date/Time of Note Date/Time of Note DATE: 03/01/16 TIME: 08:58 Assessment/Plan VTE Prophylaxis VTE Prophylaxis Intervention: heparin Lines/Catheters IV Catheter Type (from [facility] [[email or web address] PICC Line Central line still needed: Yes Urinary Cath still in place: Yes Reason Cath still needed: other (indicate) Assessment/Plan Chief Complaint/Hosp Course 1. Type B aortic dissection. Continue blood pressure control. Continue ICU monitoring. Status post evaluation by vascular surgery. No surgical intervention as of now. 2. Accelerated hypertension. Currently controlled. On antihypertensives. 3. Acute hypoxic respiratory failure. Etiology unclear. Most probably secondary to aspiration and PE. Continue ventilator support as per pulmonary. 4. Aspiration pneumonia. Continue antibiotics as per infectious diseases. 5. Acute kidney injury, most probably secondary to hemodynamics. Nephrology following. Use nephrotoxic drugs with caution. 6. Left cephalic vein thrombosis. Continue elevation. 7. Pulmonary embolism. Therapeutic anticoagulation will be deferred to thoracic surgery. 8. Microcytic hypochromic anemia. Iron panel showing iron deficiency. Continue iron supplements. 9. Acute encephalopathy, most probably metabolic in origin. Electroencephalography showing background slowing suggesting bihemispheric subcortical dysfunction, possibly epileptiform activity. The patient was started on anticonvulsants for the same. 10. Sepsis secondary to gram-positive bacteremia. Latest blood cultures are negative. On antibiotics as per infectious diseases. 11. Fluids, electrolytes, and nutrition. Continue NG tube feedings. 12. Deep venous thrombosis prophylaxis. Subcutaneous heparin. 13. Gastrointestinal prophylaxis. Proton pump inhibitor. PLAN: Continue intensive care unit monitoring. Ventilator weaning as per pulmonary. Case discussed with Dr. Hernandez. Critical care time 35 minutes. Problems: Subjective 24 Hr Interval Summary Free Text/Dictation The patient remains on mechanical ventilator. Exam/Review of Systems Vital Signs Vitals Vital Signs Date Time Temp Pulse Resp B/P Pulse Ox O2 Delivery O2 Flow Rate FiO2 03/01/16 08:00 73 20 124/66 99 Mechanical Ventilator 03/01/16 07:00 98.8 03/01/16 05:20 30 Intake and Output 02/29/16 02/29/16 03/01/16 15:00 23:00 07:00 Intake Total 1364.165 ml 868.311 ml 929.608 ml Output Total 1500 ml 690 ml 600 ml Balance -135.835 ml 178.311 ml 329.608 ml Exam HEENT: Head normocephalic and atraumatic. Eyes: Anicteric sclerae. Conjunctivae clear. ENT: Nasal septum is midline. Oral mucosa is dry. NECK: Short and obese. Unable to visualize any neck veins. CARDIAC: Regular rate and rhythm. S1 and S2 heard. ABDOMEN: Protruded. Soft. Bowel sounds hypoactive in all 4 quadrants. GENITOURINARY: The patient has a Smalls catheter in place. EXTREMITIES: No cyanosis, no clubbing. Edema of bilateral lower extremities and bilateral upper extremities. Right upper extremity PICC line in place. Peripheral pulses palpable. NEUROLOGIC: The patient is sedated. Results Result Diagram: 03/01/16 0400 03/01/16 0400 Results 24 hrs Laboratory Tests Test 02/29/16 13:48 02/29/16 18:00 02/29/16 18:41 02/29/16 23:54 Bedside Glucose 147 118 121 122 Test 03/01/16 04:00 03/01/16 06:16 Anion Gap 15 Basophils # 0.2 H Basophils % 1.1 Blood Morphology Comment Blood Urea Nitrogen 29 H Calcium Level 8.8 Carbon Dioxide Level 25 Chloride Level 109 Creatinine 1.35 H Eosinophils # 0.6 H Eosinophils % 4.2 Glucose Level 154 Hematocrit 27.5 L Hemoglobin 9.1 L Lymphocytes # 1.1 Lymphocytes % 7.3 L Magnesium Level 2.4 Mean Corpuscular Hemoglobin 26.9 L Mean Corpuscular Hemoglobin Concent 33.2 Mean Corpuscular Volume 81.0 L Mean Platelet Volume 8.3 Monocytes # 1.5 H Monocytes % 9.7 Neutrophils # 11.9 H Neutrophils % 77.7 H Nucleated Red Blood Cells # 0.0 Nucleated Red Blood Cells % 0.0 Phosphorus Level 4.3 Platelet Count 388 Potassium Level 4.5 Red Blood Count 3.40 L Red Cell Distribution Width 17.8 H Sodium Level 144 White Blood Count 15.3 H Bedside Glucose 127 Medications Medications Current Medications Ondansetron HCl (Zofran Inj) 4 mg Q6H PRN IV NAUSEA AND/OR VOMITING; Start 02/18/16 at 09:30 Acetaminophen (Tylenol Supp) 650 mg Q4H PRN [place] PAIN LEVEL 1-3 OR FEVER Last administered on 02/24/16at 14:32; Admin Dose 650 MG; Start 02/18/16 at 09:30 Morphine Sulfate (morphine) 2 mg Q4H PRN IV PAIN LEVEL 7-10 Last administered on 02/28/16 09:42; Admin Dose 2 MG; Start 02/18/16 at 09:30 Bisacodyl (Dulcolax Supp) 10 mg DAILY PRN [place] CONSTIPATION; Start 02/18/16 at 09 :30 Pantoprazole (Protonix Iv) 40 mg DAILY@06 IV Last administered on 03/01/16 06 :08; Admin Dose 40 MG; Start 02/19/16 at 06:00 Amlodipine Besylate (Norvasc) 5 mg BID PO Last administered on 02/29/16 21:29 ; Admin Dose 5 MG; Start 02/20/16 at 21:00 Hydralazine HCl (Apresoline) 10 mg Q6H PRN IV ELEVATED SYSTOLIC BP Last administered on 03/01/16 02:22; Admin Dose 10 MG; Start 02/20/16 at 22:00 Minoxidil (Loniten) 5 mg BID PO Last administered on 02/29/16 21:29; Admin Dose 5 MG; Start 02/20/16 at 22:00 Metoprolol Tartrate 5 mg 5 mg Q4H PRN IV HR>55 Hold SBP<100 Last administered on 03/01/16 01:33; Admin Dose 5 MG; Start 02/21/16 at 11:30 Propofol 100 ml @ 3.189 mls/ hr Q12H IV Last administered on 03/01/16 05:59 ; Admin Dose 25.512 MLS/HR; Start 02/21/16 at 16:30 Fentanyl/Dextrose (D5W) 100 ml @ 0 mls/hr TITRATE IV Last administered on 03/01 06:58; Admin Dose 20 MLS/HR; Start 02/21/16 at 16:30 IV Flush (NS 10 ml) 10 ml PRN PRN IV IV PROTOCOL; Start 02/21/16 at 18:30 Ferrous Sulfate (Feosol Liquid Cup) 300 mg BID GTB Last administered on 21:29; Admin Dose 300 MG; Start 02/22/16 at 10:00 Heparin Sodium (Porcine) (Heparin (5000 Units/0.5 ml)) 5,000 unit BID SC Last administered on 02/29/16 21:31; Admin Dose 5,000 UNIT; Start 02/22/16 at 21:00 Lorazepam 1 mg 1 mg Q1H PRN IV ANXIETY Last administered on 03/01/16at 01:31; Admin Dose 1 MG; Start 02/23/16 at 11:30 Fluconazole/ Sodium Chloride (Diflucan 100 Mg/ NS (Pmx)) 50 ml @ 50 mls/hr Q24H IVPB Last administered on 02/29/16at 13:43; Admin Dose 50 MLS/HR; Start at 14:00 Miscellaneous Information 1 ea NOTE XX ; Start 02/23/16 at 23:15 Glucose (Glutose) 15 gm Q15M PRN PO DECREASED GLUCOSE; Start 02/23/16 at 23:15 Glucose (Glutose) 22.5 gm Q15M PRN PO DECREASED GLUCOSE; Start 02/23/16 at 23: 15 Dextrose (D50w Syringe) 25 ml Q15M PRN IV DECREASED GLUCOSE; Start 02/23/16 at 23:15 Dextrose (D50w Syringe) 50 ml Q15M PRN IV DECREASED GLUCOSE; Start 02/23/16 at 23:15 Glucagon (Glucagen) 1 mg Q15M PRN IM DECREASED GLUCOSE; Start 02/23/16 at 23:15 Glucose 15 gm 15 gm Q15M PRN BUCCAL DECREASED GLUCOSE; Start 02/23/16 at 23:15 Levetiracetam/ Sodium Chloride (Keppra Iv/NS) 110 ml @ 440 mls/hr BID IVPB Last administered on 02/29/16at 21:29; Admin Dose 440 MLS/HR; Start 02/24/16 at 01:00 Insulin Aspart (Novolog Insulin Pen) NOVOLOG *MILD* ALGORI... Q6 SC Last administered on 02/29/16at 13:55; Admin Dose 1 UNIT; Start 02/26/16 at 18:00 Furosemide 20 mg 20 mg DAILY IV Last administered on 02/29/16at 08:24; Admin Dose 20 MG; Start 02/27/16 at 09:00 Ceftriaxone Sodium (Rocephin) 50 ml @ 100 mls/hr Q24H IVPB Last administered on 02/29/16at 13:38; Admin Dose 100 MLS/HR; Start 02/27/16 at 13:00 Metronidazole (Flagyl) 500 mg Q8 PO Last administered on 03/01/16 06:09; Admin Dose 500 MG; Start 02/27/16 at 14:00 Hydralazine HCl (Apresoline) 75 mg Q8 PO Last administered on 03/01/16 06:09 ; Admin Dose 75 MG; Start 02/29/16 at 14:00 Metoprolol Tartrate (Lopressor) 100 mg Q8 PO Last administered on 03/01/16at 06 :10; Admin Dose 100 MG; Start 02/29/16 at 14:00 Metoprolol Tartrate (Lopressor) 25 mg Q8 PO Last administered on 03/01/16at 06: 09; Admin Dose 25 MG; Start 02/29/16 at 14:00 Acetaminophen (Tylenol Tab) 650 mg Q6H PRN PO PAIN AND OR ELEVATED TEMP Last administered on 02/29/16at 13:49; Admin Dose 650 MG; Start 02/29/16 at 11:30 KEITH CRAIG NP Mar 01, 2016 09:06
[2016-03-01] MEDS: MINOXIDIL 2.5 MG TAB PO SCH ×2 (09:07→20:17)
[2016-03-01] MEDS: AMLODIPINE 5 MG TAB PO SCH ×2 (09:07→20:17)
[2016-03-01] MEDS: HEPARIN 5,000 UNIT/0.5 ML SYG SC SCH ×2 (09:11→20:22)
[2016-03-01] MEDS: LEVETIRACETAM IV 1,000 MG in SOD CHLORIDE 0.9% 100 ML IVPB SCH ×2 (09:17→20:16)
--- NOTE | 2016-03-01 10:16 | CONS ---
Date/Time of Note Date/Time of Note DATE: 03/01/16 TIME: 10:10 Assessment/Plan Assessment/Plan Chief Complaint/Hosp Course Imp: 1.HTN emergency-NL EF by echo this admit-under reasonable control on PO medications only. Off all drips but having increased BP when agitated/stimulated 2.Aortic dissection-type B again demonstrated by Chest CT 02/29/16 3.abnl ecg-lateral TWI-negative troponin x 3 since admit 4.anxiety 5.ARF 6. Pericardial effusion by echo-small with NL EF 7.Encephalopathic 8.Pulmonary embolism Recc: -Tele in ICU -Follow volume status closely -serial ecg's -Continue PO BB/CCB/minoxindil/hydralazine and follow bp closely and will continue to make slight increase to PO BB/hydralazine to improve BP as necessary -ongoing surgical follow-up -f/u MS closely -Vent weaning as tolerated Problems: Consultation Date/Type/Reason Admit Date/Time Feb 18, 2016 at 09:14 Initial Consult Date 02/19/2016 Type of Consultation: Cardiology Reason for Consultation HTN/dissection Referring Provider: ANA[facility] BREWSTER MD, [facility] Exam/Review of Systems Vital Signs Vitals Vital Signs Date Time Temp Pulse Resp B/P Pulse Ox O2 Delivery O2 Flow Rate FiO2 03/01/16 08:00 73 20 124/66 99 Mechanical Ventilator 03/01/16 07:00 98.8 03/01/16 05:20 30 Intake and Output 02/29/16 02/29/16 03/01/16 14:59 22:59 06:59 Intake Total 1314.256 ml 918.220 ml 991.931 ml Output Total 1450 ml 690 ml 650 ml Balance -135.744 ml 228.220 ml 341.931 ml Exam Review of Systems: CONSTITUTIONAL: No fevers, chills. PULMONARY: No sob CARDIOVASCULAR: No chest pain/palpitations GASTROINTESTINAL: No nausea/vomiting. GENITOURINARY: No hematuria/dysuria. MUSCULOSKELETAL: No myagias/arthalgias. PSYCHIATRIC: The patient denies depression. NEUROLOGIC: sedated Constitutional: other (sedated) Psych: no complaints Head: normocephalic ENMT: mucosa pink and moist Neck: jvd (9 mcm water), supple Respiratory: other (upper airway rhocherous transmission) Cardiovascular: regular rate and rhythm Gastrointestinal: non-tender, soft Musculoskeletal: muscle tone (normal) Extremities: pitting pedal edema (bilateral) Neurological: other (sedated) Results Result Diagram: 03/01/160 03/01/16 0400 Results 24 hrs Laboratory Tests Test 02/29/16 13:48 02/29/16 18:00 02/29/16 18:41 02/29/16 23:54 Bedside Glucose 147 118 121 122 Test 03/01/16 04:00 03/01/16 06:16 Anion Gap 15 Basophils # 0.2 H Basophils % 1.1 Blood Morphology Comment Blood Urea Nitrogen 29 H Calcium Level 8.8 Carbon Dioxide Level 25 Chloride Level 109 Creatinine 1.35 H Eosinophils # 0.6 H Eosinophils % 4.2 Glucose Level 154 Hematocrit 27.5 L Hemoglobin 9.1 L Lymphocytes # 1.1 Lymphocytes % 7.3 L Magnesium Level 2.4 Mean Corpuscular Hemoglobin 26.9 L Mean Corpuscular Hemoglobin Concent 33.2 Mean Corpuscular Volume 81.0 L Mean Platelet Volume 8.3 Monocytes # 1.5 H Monocytes % 9.7 Neutrophils # 11.9 H Neutrophils % 77.7 H Nucleated Red Blood Cells # 0.0 Nucleated Red Blood Cells % 0.0 Phosphorus Level 4.3 Platelet Count 388 Potassium Level 4.5 Red Blood Count 3.40 L Red Cell Distribution Width 17.8 H Sodium Level 144 White Blood Count 15.3 H Bedside Glucose 127 Medications Medications Current Medications Ondansetron HCl (Zofran Inj) 4 mg Q6H PRN IV NAUSEA AND/OR VOMITING; Start 02/18/16 at 09:30 Acetaminophen (Tylenol Supp) 650 mg Q4H PRN [place] PAIN LEVEL 1-3 OR FEVER Last administered on 02/24/16at 14:32; Admin Dose 650 MG; Start 02/18/16 at 09:30 Morphine Sulfate (morphine) 2 mg Q4H PRN IV PAIN LEVEL 7-10 Last administered on 02/28/16at 09:42; Admin Dose 2 MG; Start 02/18/16 at 09:30 Bisacodyl (Dulcolax Supp) 10 mg DAILY PRN [place] CONSTIPATION; Start 02/18/16 at 09 :30 Pantoprazole (Protonix Iv) 40 mg DAILY@06 IV Last administered on 03/01/16 06 :08; Admin Dose 40 MG; Start 02/19/16 at 06:00 Amlodipine Besylate (Norvasc) 5 mg BID PO Last administered on 03/01/16 09:07 ; Admin Dose 5 MG; Start 02/20/16 at 21:00 Hydralazine HCl (Apresoline) 10 mg Q6H PRN IV ELEVATED SYSTOLIC BP Last administered on 03/01/16 02:22; Admin Dose 10 MG; Start 02/20/16 at 22:00 Minoxidil (Loniten) 5 mg BID PO Last administered on 03/01/16 09:07; Admin Dose 5 MG; Start 02/20/16 at 22:00 Metoprolol Tartrate 5 mg 5 mg Q4H PRN IV HR>55 Hold SBP<100 Last administered on 03/01/16 01:33; Admin Dose 5 MG; Start 02/21/16 at 11:30 Propofol 100 ml @ 3.189 mls/ hr Q12H IV Last administered on 03/01/16 05:59 ; Admin Dose 25.512 MLS/HR; Start 02/21/16 at 16:30 Fentanyl/Dextrose (D5W) 100 ml @ 0 mls/hr TITRATE IV Last administered on 03/01 06:58; Admin Dose 20 MLS/HR; Start 02/21/16 at 16:30 IV Flush (NS 10 ml) 10 ml PRN PRN IV IV PROTOCOL; Start 02/21/16 at 18:30 Ferrous Sulfate (Feosol Liquid Cup) 300 mg BID GTB Last administered on 09:04; Admin Dose 300 MG; Start 02/22/16 at 10:00 Heparin Sodium (Porcine) (Heparin (5000 Units/0.5 ml)) 5,000 unit BID SC Last administered on 03/01/16 09:11; Admin Dose 5,000 UNIT; Start 02/22/16 at 21:00 Lorazepam 1 mg 1 mg Q1H PRN IV ANXIETY Last administered on 03/01/16 01:31; Admin Dose 1 MG; Start 02/23/16 at 11:30 Fluconazole/ Sodium Chloride (Diflucan 100 Mg/ NS (Pmx)) 50 ml @ 50 mls/hr Q24H IVPB Last administered on 12/15/16at 13:43; Admin Dose 50 MLS/HR; Start at 14:00 Miscellaneous Information 1 ea NOTE XX ; Start 02/23/16 at 23:15 Glucose (Glutose) 15 gm Q15M PRN PO DECREASED GLUCOSE; Start 02/23/16 at 23:15 Glucose (Glutose) 22.5 gm Q15M PRN PO DECREASED GLUCOSE; Start 02/23/16 at 23: 15 Dextrose (D50w Syringe) 25 ml Q15M PRN IV DECREASED GLUCOSE; Start 02/23/16 at 23:15 Dextrose (D50w Syringe) 50 ml Q15M PRN IV DECREASED GLUCOSE; Start 02/23/16 at 23:15 Glucagon (Glucagen) 1 mg Q15M PRN IM DECREASED GLUCOSE; Start 02/23/16 at 23:15 Glucose 15 gm 15 gm Q15M PRN BUCCAL DECREASED GLUCOSE; Start 02/23/16 at 23:15 Levetiracetam/ Sodium Chloride (Keppra Iv/NS) 110 ml @ 440 mls/hr BID IVPB Last administered on 03/01/16at 09:17; Admin Dose 440 MLS/HR; Start 02/24/16 at 01:00 Insulin Aspart (Novolog Insulin Pen) NOVOLOG *MILD* ALGORI... Q6 SC Last administered on 02/29/16at 13:55; Admin Dose 1 UNIT; Start 02/26/16 at 18:00 Furosemide 20 mg 20 mg DAILY IV Last administered on 03/01/16at 09:05; Admin Dose 20 MG; Start 02/27/16 at 09:00 Ceftriaxone Sodium (Rocephin) 50 ml @ 100 mls/hr Q24H IVPB Last administered on 02/29/16at 13:38; Admin Dose 100 MLS/HR; Start 02/27/16 at 13:00 Metronidazole (Flagyl) 500 mg Q8 PO Last administered on 03/01/16at 06:09; Admin Dose 500 MG; Start 02/27/16 at 14:00 Hydralazine HCl (Apresoline) 75 mg Q8 PO Last administered on 03/01/16at 06:09 ; Admin Dose 75 MG; Start 02/29/16 at 14:00 Metoprolol Tartrate (Lopressor) 100 mg Q8 PO Last administered on 03/01/16at 06 :10; Admin Dose 100 MG; Start 02/29/16 at 14:00 Metoprolol Tartrate (Lopressor) 25 mg Q8 PO Last administered on 03/01/16at 06: 09; Admin Dose 25 MG; Start 02/29/16 at 14:00 Acetaminophen (Tylenol Tab) 650 mg Q6H PRN PO PAIN AND OR ELEVATED TEMP Last administered on 02/29/16at 13:49; Admin Dose 650 MG; Start 02/29/16 at 11:30 JUNAID PAZ Mar 01, 2016 10:16
--- NOTE | 2016-03-01 10:32 | CONS ---
Date/Time of Note Date/Time of Note DATE: 03/01/16 TIME: 10:27 Consult Date/Type/Reason Admit Date/Time Feb 18, 2016 at 09:14 Type of Consultation: Pulm Ordering Provider: ANAYA BREWSTER MD, [facility] Subjective Intubated sedated, No events overnight agitated off sedation with subsequent hypertension. Objective Vital Signs Date Time Temp Pulse Resp B/P Pulse Ox O2 Delivery O2 Flow Rate FiO2 03/01/16 10:00 78 20 129/69 98 Mechanical Ventilator 03/01/16 07:00 98.8 03/01/16 05:20 30 Intake and Output 02/29/16 02/29/16 03/01/16 14:59 22:59 06:59 Intake Total 1314.256 ml 918.220 ml 991.931 ml Output Total 1450 ml 690 ml 650 ml Balance -135.744 ml 228.220 ml 341.931 ml PHYSICAL EXAMINATION GENERAL: A well-nourished well-developed gentleman intubated on mechanical ventilation. VITAL SIGNS: see below. HEENT: Pupils equal, round, and reactive to light. enlarged swollen tongue, CARDIAC: S1, S2, tachycardia. CHEST: Diminished air entry bilaterally. ABDOMEN: Mildly distended. No bowel sounds. EXTREMITIES: No cyanosis, clubbing edema +1 upper extremities NEUROLOGIC: generalized weakness. Results/Medications Result Diagram: 03/01/16 0400 03/01/16 0400 Results 24 hrs cxr increasing left effusion CT chest IMPRESSION: Dissection involving the thoracic aorta arising distal to the origin of the left subclavian artery and extending into the abdominal aorta. The distal extent was not included on the study. Flow within both true and false lumen to the level of the celiac artery. Partially occlusive pulmonary emboli extending from the right main pulmonary artery into the first and second order branches. Cardiomegaly. Small pericardial effusion. Bilateral atelectasis. High density fluid lumen of the gallbladder. Question vicarious excretion of contrast. CT neck IMPRESSION: Normal CT angiogram of the extracranial carotid vasculature. Dissection thoracic aorta arising distal to the origin of the left subclavian artery with flow in both the true and false lumens. Laboratory Tests Test 02/29/16 13:48 02/29/16 18:00 02/29/16 18:41 02/29/16 23:54 Bedside Glucose 147 118 121 122 Test 03/01/16 04:00 03/01/16 06:16 Anion Gap 15 Basophils # 0.2 H Basophils % 1.1 Blood Morphology Comment Blood Urea Nitrogen 29 H Calcium Level 8.8 Carbon Dioxide Level 25 Chloride Level 109 Creatinine 1.35 H Eosinophils # 0.6 H Eosinophils % 4.2 Glucose Level 154 Hematocrit 27.5 L Hemoglobin 9.1 L Lymphocytes # 1.1 Lymphocytes % 7.3 L Magnesium Level 2.4 Mean Corpuscular Hemoglobin 26.9 L Mean Corpuscular Hemoglobin Concent 33.2 Mean Corpuscular Volume 81.0 L Mean Platelet Volume 8.3 Monocytes # 1.5 H Monocytes % 9.7 Neutrophils # 11.9 H Neutrophils % 77.7 H Nucleated Red Blood Cells # 0.0 Nucleated Red Blood Cells % 0.0 Phosphorus Level 4.3 Platelet Count 388 Potassium Level 4.5 Red Blood Count 3.40 L Red Cell Distribution Width 17.8 H Sodium Level 144 White Blood Count 15.3 H Bedside Glucose 127 Medications Current Medications Ondansetron HCl (Zofran Inj) 4 mg Q6H PRN IV NAUSEA AND/OR VOMITING; Start 02/18/16 at 09:30 Acetaminophen (Tylenol Supp) 650 mg Q4H PRN [place] PAIN LEVEL 1-3 OR FEVER Last administered on 02/24/16at 14:32; Admin Dose 650 MG; Start 02/18/16 at 09:30 Morphine Sulfate (morphine) 2 mg Q4H PRN IV PAIN LEVEL 7-10 Last administered on 02/28/16at 09:42; Admin Dose 2 MG; Start 02/18/16 at 09:30 Bisacodyl (Dulcolax Supp) 10 mg DAILY PRN [place] CONSTIPATION; Start 02/18/16 at 09 :30 Pantoprazole (Protonix Iv) 40 mg DAILY@06 IV Last administered on 03/01/16at 06 :08; Admin Dose 40 MG; Start 02/19/16 at 06:00 Amlodipine Besylate (Norvasc) 5 mg BID PO Last administered on 03/01/16at 09:07 ; Admin Dose 5 MG; Start 02/20/16 at 21:00 Hydralazine HCl (Apresoline) 10 mg Q6H PRN IV ELEVATED SYSTOLIC BP Last administered on 03/01/16at 02:22; Admin Dose 10 MG; Start 02/20/16 at 22:00 Minoxidil (Loniten) 5 mg BID PO Last administered on 03/01/16at 09:07; Admin Dose 5 MG; Start 02/20/16 at 22:00 Metoprolol Tartrate 5 mg 5 mg Q4H PRN IV HR>55 Hold SBP<100 Last administered on 03/01/16at 01:33; Admin Dose 5 MG; Start 02/21/16 at 11:30 Propofol 100 ml @ 3.189 mls/ hr Q12H IV Last administered on 03/01/16at 05:59 ; Admin Dose 25.512 MLS/HR; Start 02/21/16 at 16:30 Fentanyl/Dextrose (D5W) 100 ml @ 0 mls/hr TITRATE IV Last administered on 03/01at 06:58; Admin Dose 20 MLS/HR; Start 02/21/16 at 16:30 IV Flush (NS 10 ml) 10 ml PRN PRN IV IV PROTOCOL; Start 02/21/16 at 18:30 Ferrous Sulfate (Feosol Liquid Cup) 300 mg BID GTB Last administered on at 09:04; Admin Dose 300 MG; Start 02/22/16 at 10:00 Heparin Sodium (Porcine) (Heparin (5000 Units/0.5 ml)) 5,000 unit BID SC Last administered on 03/01/16at 09:11; Admin Dose 5,000 UNIT; Start 02/22/16 at 21:00 Lorazepam 1 mg 1 mg Q1H PRN IV ANXIETY Last administered on 03/01/16at 10:19; Admin Dose 1 MG; Start 02/23/16 at 11:30 Fluconazole/ Sodium Chloride (Diflucan 100 Mg/ NS (Pmx)) 50 ml @ 50 mls/hr Q24H IVPB Last administered on 02/29/16at 13:43; Admin Dose 50 MLS/HR; Start at 14:00 Miscellaneous Information 1 ea NOTE XX ; Start 02/23/16 at 23:15 Glucose (Glutose) 15 gm Q15M PRN PO DECREASED GLUCOSE; Start 02/23/16 at 23:15 Glucose (Glutose) 22.5 gm Q15M PRN PO DECREASED GLUCOSE; Start 02/23/16 at 23: 15 Dextrose (D50w Syringe) 25 ml Q15M PRN IV DECREASED GLUCOSE; Start 02/23/16 at 23:15 Dextrose (D50w Syringe) 50 ml Q15M PRN IV DECREASED GLUCOSE; Start 02/23/16 at 23:15 Glucagon (Glucagen) 1 mg Q15M PRN IM DECREASED GLUCOSE; Start 02/23/16 at 23:15 Glucose 15 gm 15 gm Q15M PRN BUCCAL DECREASED GLUCOSE; Start 02/23/16 at 23:15 Levetiracetam/ Sodium Chloride (Keppra Iv/NS) 110 ml @ 440 mls/hr BID IVPB Last administered on 03/01/16at 09:17; Admin Dose 440 MLS/HR; Start 02/24/16 at 01:00 Insulin Aspart (Novolog Insulin Pen) NOVOLOG *MILD* ALGORI... Q6 SC Last administered on 02/29/16at 13:55; Admin Dose 1 UNIT; Start 02/26/16 at 18:00 Furosemide 20 mg 20 mg DAILY IV Last administered on 03/01/16at 09:05; Admin Dose 20 MG; Start 02/27/16 at 09:00 Ceftriaxone Sodium (Rocephin) 50 ml @ 100 mls/hr Q24H IVPB Last administered on 02/29/16at 13:38; Admin Dose 100 MLS/HR; Start 02/27/16 at 13:00 Metronidazole (Flagyl) 500 mg Q8 PO Last administered on 03/01/16at 06:09; Admin Dose 500 MG; Start 02/27/16 at 14:00 Hydralazine HCl (Apresoline) 75 mg Q8 PO Last administered on 03/01/16at 06:09 ; Admin Dose 75 MG; Start 02/29/16 at 14:00 Metoprolol Tartrate (Lopressor) 100 mg Q8 PO Last administered on 03/01/16at 06 :10; Admin Dose 100 MG; Start 02/29/16 at 14:00 Metoprolol Tartrate (Lopressor) 25 mg Q8 PO Last administered on 03/01/16at 06: 09; Admin Dose 25 MG; Start 02/29/16 at 14:00 Acetaminophen (Tylenol Tab) 650 mg Q6H PRN PO PAIN AND OR ELEVATED TEMP Last administered on 02/29/16at 13:49; Admin Dose 650 MG; Start 02/29/16 at 11:30 Assessment/Plan Chief Complaint/Hosp Course IMPRESSION 1. Hypertensive Emergency 2. Type B Aortic Dissection. No evidence on proximal dissection on recent CT neck and chest, 3. Encephalopathy, possibly secondary to antihypertensive medications. 4. Aspiration pneumonia with hypoxemic respiratory failure.Possible left effusion. New PE. 5. FARRUKH RECS: 1. Vent support unable to wean at present secondary to AMS, hypertension and upper airway edema. 2. Continue BP control 3. Sedation vacation as tolerated. 4. Replete lytes 5. Am CXR/ABG 6. Abx per ID 7. Hold off anticoagulation for PE at present. 8. Will discuss with vascular ? for repair of dissection.? prognosis guarded Problems: ANAYA BREWSTER MD, [facility] Mar 01, 2016 10:32
[2016-03-01] MEDS: CEFTRIAXONE 1 GM/50 ML (PMX) 50 ML IVPB SCH (13:08)
[2016-03-01] MEDS: FLUCONAZOLE 100 MG/NS (PMX) 50 ML IVPB SCH (14:02)
--- NOTE | 2016-03-01 14:37 | PN ---
Date/Time of Note Date/Time of Note DATE: 03/01/16 TIME: 14:36 Assessment/Plan Lines/Catheters IV Catheter Type (from Nrs): PICC Line Smalls in Place (from Nrsg): Yes Assessment/Plan Chief Complaint/Hosp Course IMPRESSION: Type B aortic dissection. The patient's blood pressure more controlled RECOMMENDATIONS: At this time, we would continue blood pressure management, monitor vital signs and laboratory values in an intensive care unit setting. Vent support per pulm medicine No plan for surgery. Abx Cr. 1.4 Repeat CTA Dissection involving the thoracic aorta arising distal to the origin of the left subclavian artery and extending into the abdominal aorta. The distal extent was not included on the study. Flow within both true and false lumen to the level of the celiac artery. Would continue BP controlVent support no plan for surgery at this time I discussed with the patient and Dr. Mccabe and staff Problems: Subjective 24 Hr Interval Summary Constitutional: improved Pain Control: mild Exam/Review of Systems Vital Signs Vitals Vital Signs Date Time Temp Pulse Resp B/P Pulse Ox O2 Delivery O2 Flow Rate FiO2 03/01/16 14:28 82 20 98 30 03/01/16 13:30 125/61 Mechanical Ventilator 03/01/16 12:00 98.9 Intake and Output 02/29/16 02/29/16 03/01/16 15:00 23:00 07:00 Intake Total 1364.165 ml 868.311 ml 979.608 ml Output Total 1500 ml 690 ml 660 ml Balance -135.835 ml 178.311 ml 319.608 ml Exam ENMT: mucosa pink and moist, nl external ears & nose, nl lips & teeth, nl nasal mucosa & septum Neck: non-tender, supple Respiratory: clear to auscultation, normal air movement Cardiovascular: nl pulses, regular rate and rhythm Results Result Diagram: 03/01/1639903/01/16399 KAYLYN RADFORD MD Mar 01, 2016 14:37
--- NOTE | 2016-03-01 16:58 | CONS ---
Date/Time of Note Date/Time of Note DATE: 03/01/16 TIME: 16:57 Assessment/Plan Assessment/Plan Chief Complaint/Hosp Course Additional Assessment/Plan 1. Acute kidney injury, likely secondary to acute tubular necrosis from contrast-induced nephropathy and also secondary to ischemic acute tubular necrosis from aortic dissection. 2. A type B Helio aortic dissection. 3. Hypertensive emergency on multiple drips. 4. acute resp failiure intubated on ventilator 5 EDEMA plan ck lytes LASIX PRN CK LABS Problems: Consultation Date/Type/Reason Admit Date/Time Feb 18, 2016 at 09:14 Initial Consult Date 02/26/16 Type of Consultation: RENAL Referring Provider: ANAYA BREWSTER MD, [facility] Exam/Review of Systems Vital Signs Vitals Vital Signs Date Time Temp Pulse Resp B/P Pulse Ox O2 Delivery O2 Flow Rate FiO2 03/01/16 16:00 76 03/01/16 15:00 20 114/62 98 Mechanical Ventilator 03/01/16 14:28 30 03/01/16 12:00 98.9 Intake and Output 02/29/16 02/29/16 03/01/16 15:00 23:00 07:00 Intake Total 1364.165 ml 868.311 ml 979.608 ml Output Total 1500 ml 690 ml 660 ml Balance -135.835 ml 178.311 ml 319.608 ml Exam Neck: supple Respiratory: diminished breath sounds Cardiovascular: regular rate and rhythm Gastrointestinal: bowel sounds (+), nl liver, spleen, non-tender, soft Extremities: edema (++) Results Result Diagram: 03/01/16 0400 03/01/16 0400 Results 24 hrs Laboratory Tests Test 02/29/16 18:00 02/29/16 18:41 02/29/16 23:54 03/01/16 04:00 Bedside Glucose 118 121 122 Anion Gap 15 Basophils # 0.2 H Basophils % 1.1 Blood Morphology Comment Blood Urea Nitrogen 29 H Calcium Level 8.8 Carbon Dioxide Level 25 Chloride Level 109 Creatinine 1.35 H Eosinophils # 0.6 H Eosinophils % 4.2 Glucose Level 154 Hematocrit 27.5 L Hemoglobin 9.1 L Lymphocytes # 1.1 Lymphocytes % 7.3 L Magnesium Level 2.4 Mean Corpuscular Hemoglobin 26.9 L Mean Corpuscular Hemoglobin Concent 33.2 Mean Corpuscular Volume 81.0 L Mean Platelet Volume 8.3 Monocytes # 1.5 H Monocytes % 9.7 Neutrophils # 11.9 H Neutrophils % 77.7 H Nucleated Red Blood Cells # 0.0 Nucleated Red Blood Cells % 0.0 Phosphorus Level 4.3 Platelet Count 388 Potassium Level 4.5 Red Blood Count 3.40 L Red Cell Distribution Width 17.8 H Sodium Level 144 White Blood Count 15.3 H Test 03/01/16 06:16 03/01/16 11:50 Bedside Glucose 127 121 Medications Medications Current Medications Ondansetron HCl (Zofran Inj) 4 mg Q6H PRN IV NAUSEA AND/OR VOMITING; Start 02/18/16 at 09:30 Acetaminophen (Tylenol Supp) 650 mg Q4H PRN [place] PAIN LEVEL 1-3 OR FEVER Last administered on 02/24/16at 14:32; Admin Dose 650 MG; Start 02/18/16 at 09:30 Morphine Sulfate (morphine) 2 mg Q4H PRN IV PAIN LEVEL 7-10 Last administered on 02/28/16at 09:42; Admin Dose 2 MG; Start 02/18/16 at 09:30 Bisacodyl (Dulcolax Supp) 10 mg DAILY PRN [place] CONSTIPATION; Start 02/18/16 at 09 :30 Pantoprazole (Protonix Iv) 40 mg DAILY@06 IV Last administered on 03/01/16at 06 :08; Admin Dose 40 MG; Start 02/19/16 at 06:00 Amlodipine Besylate (Norvasc) 5 mg BID PO Last administered on 03/01/16at 09:07 ; Admin Dose 5 MG; Start 02/20/16 at 21:00 Hydralazine HCl (Apresoline) 10 mg Q6H PRN IV ELEVATED SYSTOLIC BP Last administered on 03/01/16at 02:22; Admin Dose 10 MG; Start 02/20/16 at 22:00 Minoxidil (Loniten) 5 mg BID PO Last administered on 03/01/16at 09:07; Admin Dose 5 MG; Start 02/20/16 at 22:00 Metoprolol Tartrate 5 mg 5 mg Q4H PRN IV HR>55 Hold SBP<100 Last administered on 03/01/16at 01:33; Admin Dose 5 MG; Start 02/21/16 at 11:30 Propofol 100 ml @ 3.189 mls/ hr Q12H IV Last administered on 03/01/16at 10:58 ; Admin Dose 12.756 MLS/HR; Start 02/21/16 at 16:30 Fentanyl/Dextrose (D5W) 100 ml @ 0 mls/hr TITRATE IV Last administered on 03/01at 06:58; Admin Dose 20 MLS/HR; Start 02/21/16 at 16:30 IV Flush (NS 10 ml) 10 ml PRN PRN IV IV PROTOCOL; Start 02/21/16 at 18:30 Ferrous Sulfate (Feosol Liquid Cup) 300 mg BID GTB Last administered on at 09:04; Admin Dose 300 MG; Start 02/22/16 at 10:00 Heparin Sodium (Porcine) (Heparin (5000 Units/0.5 ml)) 5,000 unit BID SC Last administered on 03/01/16at 09:11; Admin Dose 5,000 UNIT; Start 02/22/16 at 21:00 Lorazepam 1 mg 1 mg Q1H PRN IV ANXIETY Last administered on 03/01/16at 10:19; Admin Dose 1 MG; Start 02/23/16 at 11:30 Fluconazole/ Sodium Chloride (Diflucan 100 Mg/ NS (Pmx)) 50 ml @ 50 mls/hr Q24H IVPB Last administered on 03/01/16at 14:02; Admin Dose 50 MLS/HR; Start at 14:00 Miscellaneous Information 1 ea NOTE XX ; Start 02/23/16 at 23:15 Glucose (Glutose) 15 gm Q15M PRN PO DECREASED GLUCOSE; Start 02/23/16 at 23:15 Glucose (Glutose) 22.5 gm Q15M PRN PO DECREASED GLUCOSE; Start 02/23/16 at 23: 15 Dextrose (D50w Syringe) 25 ml Q15M PRN IV DECREASED GLUCOSE; Start 02/23/16 at 23:15 Dextrose (D50w Syringe) 50 ml Q15M PRN IV DECREASED GLUCOSE; Start 02/23/16 at 23:15 Glucagon (Glucagen) 1 mg Q15M PRN IM DECREASED GLUCOSE; Start 02/23/16 at 23:15 Glucose 15 gm 15 gm Q15M PRN BUCCAL DECREASED GLUCOSE; Start 02/23/16 at 23:15 Levetiracetam/ Sodium Chloride (Keppra Iv/NS) 110 ml @ 440 mls/hr BID IVPB Last administered on 03/01/16at 09:17; Admin Dose 440 MLS/HR; Start 02/24/16 at 01:00 Insulin Aspart (Novolog Insulin Pen) NOVOLOG *MILD* ALGORI... Q6 SC Last administered on 02/29/16at 13:55; Admin Dose 1 UNIT; Start 02/26/16 at 18:00 Furosemide 20 mg 20 mg DAILY IV Last administered on 03/01/16at 09:05; Admin Dose 20 MG; Start 02/27/16 at 09:00 Ceftriaxone Sodium (Rocephin) 50 ml @ 100 mls/hr Q24H IVPB Last administered on 03/01/16at 13:08; Admin Dose 100 MLS/HR; Start 02/27/16 at 13:00 Metronidazole (Flagyl) 500 mg Q8 PO Last administered on 03/01/16 14:04; Admin Dose 500 MG; Start 02/27/16 at 14:00 Hydralazine HCl (Apresoline) 75 mg Q8 PO Last administered on 03/01/16 14:09 ; Admin Dose 75 MG; Start 02/29/16 at 14:00 Metoprolol Tartrate (Lopressor) 100 mg Q8 PO Last administered on 03/01/16at 14 :02; Admin Dose 100 MG; Start 02/29/16 at 14:00 Metoprolol Tartrate (Lopressor) 25 mg Q8 PO Last administered on 03/01/16 14: 03; Admin Dose 25 MG; Start 02/29/16 at 14:00 Acetaminophen (Tylenol Tab) 650 mg Q6H PRN PO PAIN AND OR ELEVATED TEMP Last administered on 02/29/16 13:49; Admin Dose 650 MG; Start 02/29/16 at 11:30 SASHA OWEN MD Mar 01, 2016 16:58
--- NOTE | 2016-03-01 17:26 | PN ---
DATE: 03/01/2016 SUBJECTIVE: No acute events overnight. The patient is lying comfortably in bed. He is nonverbal, noncommunicative, sedated with Versed, no fevers. VITAL SIGNS: Temperature 98.7, pulse 79, respirations 20, blood pressure 125/61, saturation 99 on v ent. WBC 15.3, H and H 9.1 and 27.5, platelets 388, neutrophils 77.7, BUN 29, creatinine 1.35. MICROBIOLOGY: Blood cultures repeated on 02/29/2016 and sputum culture negative. DIAGNOSTICS: The patient had CT of the chest that revealed cardiomegaly, partially occluded, pulmon yoel emboli, dissection involving the thoracic aorta arising distal to the origin of the left subclav gio artery and extending into the abdominal aorta. Chest x-ray this morning revealed possibly incre asing left pleural effusion. INDWELLINGS: Endotracheal tube, NG tube, Smalls, PICC line. ANTIMICROBIALS: 1. Rocephin. 2. Flagyl. 3. Fluconazole. OBJECTIVE: GENERAL: This is a chronically ill-appearing, middle-aged man who is lying comfortably in bed. The patient is sedated. HEENT: Head atraumatic, normocephalic. Sclerae anicteric. Buccal mucosa dry. NECK: Supple, trachea midline. CHEST: Rise symmetrical. Breath sounds diminished to bases. HEART: S1, S2. ABDOMEN: Soft, distended. Bowel tones hypoactive. EXTREMITIES: Bilateral edema. ASSESSMENT: 1. Resolving sepsis. 2. Acute respiratory failure with aspiration pneumonia. Sputum culture grew E. coli, Angelina albic ans. 3. Resolving diarrhea on empiric Flagyl. 4. Status epilepticus. 5. Type B aortic dissection. 6. Hypertension. 7. New onset of pulmonary emboli. PLAN: The patient remains unchanged, covered with antibiotics. He is being followed by multiple co nsultants, not ready to be weaned, per pulmonary note. Dictated By: HUSAM SANFORD DELIVERY MAN for YESIKA LOPEZ/NTS Conf#: [id number] DID#: [id number]
[2016-03-02] VITALS (79 sets, daily range): BP systolic 111–180; BP diastolic 60–103; PULSE 71–104; RESP 7–30
[2016-03-02] MEDS: ALBUTEROL HFA 8 GM INHALER INH SCH ×4 (00:23→19:16)
[2016-03-02] MEDS: IPRATROPIUM (HFA) 12.9 GM INHALER INH SCH ×4 (00:23→19:16)
[2016-03-02] MEDS: PROPOFOL 100 ML IV SCH ×2 (01:10→08:30)
[2016-03-02] MEDS: FENTAnyl 1,000 MCG in DEXTROSE 5% 80 ML IV SCH ×3 (03:42→23:08)
[2016-03-02 04:53] LABS: CREATININE 1.69 mg/dl (0.61-1.24)
[2016-03-02 04:54] LABS: BASOPHILS % 0.2 % (0.0-2.0); CALCIUM 8.9 mg/dl (8.4-10.2); EOSINOPHILS # 0.8 10^3/ul (0.0-0.5); EOSINOPHILS % 5.5 % (0.0-7.0); HEMATOCRIT 26.9 % (42.0-52.0); HEMOGLOBIN 8.9 g/dl (14.0-18.0); LYMPHOCYTES # 0.9 10^3/ul (0.8-2.9); LYMPHOCYTES % 6.2 % (15.0-51.0); MEAN CORPUSCULAR HEMOGLOBIN 26.8 pg (29.0-33.0); MEAN CORPUSCULAR HGB CONC 32.9 g/dl (32.0-37.0); MEAN CORPUSCULAR VOLUME 81.5 fl (82.0-101.0); MONOCYTE # 1.2 10^3/ul (0.3-0.9); MONOCYTES % 7.8 % (0.0-11.0); NEUTROPHIL # 12.1 10^3/ul (1.6-7.5); NEUTROPHILS % 80.3 % (39.0-77.0); PLATELET COUNT 403 10^3/UL (140-440); RED BLOOD COUNT 3.31 10^6/ul (4.70-6.10); UNCORRECTED WBC 15.1 10^3/ul (4.8-10.8); WHITE BLOOD COUNT 15.1 10^3/ul (4.8-10.8)
[2016-03-02 04:56] LABS: CONDITION 1; LH ANALYZER COMMENTS 1
[2016-03-02 04:58] LABS: PHOSPHORUS 4.6 mg/dl (2.5-4.9)
[2016-03-02 04:59] LABS: MAGNESIUM 2.4 mg/dl (1.7-2.5)
[2016-03-02] MEDS: PANTOPRAZOLE 40 MG INJ IV SCH (05:08)
[2016-03-02] MEDS: METOPROLOL 25 MG TAB PO SCH ×3 (05:09→22:00)
[2016-03-02] MEDS: METOPROLOL 100 MG TAB PO SCH ×3 (05:09→22:00)
[2016-03-02] MEDS: metroNIDAZOLE 500 MG TAB PO SCH ×3 (05:10→22:00)
[2016-03-02] MEDS: INSULIN ASPART [NOVOLOG] 3 ML PEN SC SCH ×3 (05:10→17:36)
[2016-03-02] MEDS: LORAZEPAM 2 MG INJ IV PRN (05:12)
--- NOTE | 2016-03-02 08:17 | CONS ---
Date/Time of Note Date/Time of Note DATE: 03/02/16 TIME: 08:14 Assessment/Plan Assessment/Plan Additional Assessment/Plan 1.HTN emergency-NL EF by echo this admit-under reasonable control on PO medications only. Off all drips but having increased BP when agitated/ stimulated - still difficult to wean with agitation 2.Aortic dissection-type B again demonstrated by Chest CT 02/29/16 - no surgery palnned - con't med rx 3.abnl ecg-lateral TWI-negative troponin x 3 since admit 4.anxiety- making difficult to wean 5.ARF- avoid nephrotoxivc meds 6. Pericardial effusion by echo-small with NL EF- no signns of tamponade 7.Encephalopathic 8.Pulmonary embolism - Rx as noted. Consultation Date/Type/Reason Admit Date/Time Feb 18, 2016 at 09:14 Type of Consultation: RENAL Referring Provider: ANAYA BREWSTER MD, [facility] 24 HR Interval Summary Free Text/Dictation No acute change - very difficult to wean - con't BP rx - no surgical intervention planned. ROS: No fever, no chills, no nausea, no vomiting, no diarrhea/constipation No recent weight changes No chest pain, no PND, no orthopnea No dizziness, blurred vision No thirst, no heat or cold intolerance (per nurse) Exam/Review of Systems Vital Signs Vitals Vital Signs Date Time Temp Pulse Resp B/P Pulse Ox O2 Delivery O2 Flow Rate FiO2 03/02/16 06:00 73 20 125/64 99 03/02/16 05:15 30 03/02/16 04:00 99.6 Mechanical Ventilator Intake and Output 03/01/16 03/01/16 03/02/16 15:00 23:00 07:00 Intake Total 982.074 ml 783.00 ml 723.5 ml Output Total 885 ml 740 ml 625 ml Balance 97.074 ml 43.00 ml 98.5 ml Exam General: WN/WD/NAD, AO x 0 HEENT: Unicetric/atraumatic/EOMI (follow commands) NECK: JVD elevated, no thyromegaly, intubated Lymph: no lymphadenopathy HEART: regular with no S3, II/ systolic murmur at apex LUNGS: Coarse sounds ABD: soft, NT, ND, +BS : Intact Neuro: non focal SKIN: chronic changes EXT: trace edema Results Result Diagram: 03/02/16 0400 03/02/16 0400 Results 24 hrs Laboratory Tests Test 03/01/16 11:50 03/01/16 17:38 03/01/16 23:05 03/02/16 04:00 Bedside Glucose 121 131 132 Anion Gap 13 Basophils # 0.0 Basophils % 0.2 Blood Morphology Comment Blood Urea Nitrogen 34 H Calcium Level 8.9 Carbon Dioxide Level 29 Chloride Level 110 Creatinine 1.69 H Eosinophils # 0.8 H Eosinophils % 5.5 Glucose Level 137 Hematocrit 26.9 L Hemoglobin 8.9 L Lymphocytes # 0.9 Lymphocytes % 6.2 L Magnesium Level 2.4 Mean Corpuscular Hemoglobin 26.8 L Mean Corpuscular Hemoglobin Concent 32.9 Mean Corpuscular Volume 81.5 L Mean Platelet Volume 8.0 Monocytes # 1.2 H Monocytes % 7.8 Neutrophils # 12.1 H Neutrophils % 80.3 H Nucleated Red Blood Cells # 0.0 Nucleated Red Blood Cells % 0.0 Phosphorus Level 4.6 Platelet Count 403 Potassium Level 4.0 Red Blood Count 3.31 L Red Cell Distribution Width 18.0 H Sodium Level 148 H White Blood Count 15.1 H Test 03/02/16 05:07 Bedside Glucose 131 Medications Medications Current Medications Ondansetron HCl (Zofran Inj) 4 mg Q6H PRN IV NAUSEA AND/OR VOMITING; Start 02/18/16 at 09:30 Acetaminophen (Tylenol Supp) 650 mg Q4H PRN [place] PAIN LEVEL 1-3 OR FEVER Last administered on 02/24/16at 14:32; Admin Dose 650 MG; Start 02/18/16 at 09:30 Morphine Sulfate (morphine) 2 mg Q4H PRN IV PAIN LEVEL 7-10 Last administered on 02/28/16at 09:42; Admin Dose 2 MG; Start 02/18/16 at 09:30 Bisacodyl (Dulcolax Supp) 10 mg DAILY PRN [place] CONSTIPATION; Start 02/18/16 at 09 :30 Pantoprazole (Protonix Iv) 40 mg DAILY@06 IV Last administered on 03/02/16at 05 :08; Admin Dose 40 MG; Start 02/19/16 at 06:00 Amlodipine Besylate (Norvasc) 5 mg BID PO Last administered on 03/01/16 20:17 ; Admin Dose 5 MG; Start 02/20/16 at 21:00 Hydralazine HCl (Apresoline) 10 mg Q6H PRN IV ELEVATED SYSTOLIC BP Last administered on 03/01/16at 02:22; Admin Dose 10 MG; Start 02/20/16 at 22:00 Minoxidil (Loniten) 5 mg BID PO Last administered on 03/01/16 20:17; Admin Dose 5 MG; Start 02/20/16 at 22:00 Metoprolol Tartrate 5 mg 5 mg Q4H PRN IV HR>55 Hold SBP<100 Last administered on 03/01/16at 01:33; Admin Dose 5 MG; Start 02/21/16 at 11:30 Propofol 100 ml @ 3.189 mls/ hr Q12H IV Last administered on 03/02/16at 01:10 ; Admin Dose 12.756 MLS/HR; Start 02/21/16 at 16:30 Fentanyl/Dextrose (D5W) 100 ml @ 0 mls/hr TITRATE IV Last administered on 03/02at 03:42; Admin Dose 7.5 MLS/HR; Start 02/21/16 at 16:30 IV Flush (NS 10 ml) 10 ml PRN PRN IV IV PROTOCOL; Start 02/21/16 at 18:30 Ferrous Sulfate (Feosol Liquid Cup) 300 mg BID GTB Last administered on at 20:16; Admin Dose 300 MG; Start 02/22/16 at 10:00 Heparin Sodium (Porcine) (Heparin (5000 Units/0.5 ml)) 5,000 unit BID SC Last administered on 03/01/16at 20:22; Admin Dose 5,000 UNIT; Start 02/22/16 at 21:00 Lorazepam 1 mg 1 mg Q1H PRN IV ANXIETY Last administered on 03/02/16at 05:12; Admin Dose 1 MG; Start 02/23/16 at 11:30 Fluconazole/ Sodium Chloride (Diflucan 100 Mg/ NS (Pmx)) 50 ml @ 50 mls/hr Q24H IVPB Last administered on 03/01/16at 14:02; Admin Dose 50 MLS/HR; Start at 14:00 Miscellaneous Information 1 ea NOTE XX ; Start 02/23/16 at 23:15 Glucose (Glutose) 15 gm Q15M PRN PO DECREASED GLUCOSE; Start 02/23/16 at 23:15 Glucose (Glutose) 22.5 gm Q15M PRN PO DECREASED GLUCOSE; Start 02/23/16 at 23: 15 Dextrose (D50w Syringe) 25 ml Q15M PRN IV DECREASED GLUCOSE; Start 02/23/16 at 23:15 Dextrose (D50w Syringe) 50 ml Q15M PRN IV DECREASED GLUCOSE; Start 02/23/16 at 23:15 Glucagon (Glucagen) 1 mg Q15M PRN IM DECREASED GLUCOSE; Start 02/23/16 at 23:15 Glucose 15 gm 15 gm Q15M PRN BUCCAL DECREASED GLUCOSE; Start 02/23/16 at 23:15 Levetiracetam/ Sodium Chloride (Keppra Iv/NS) 110 ml @ 440 mls/hr BID IVPB Last administered on 03/01/16at 20:16; Admin Dose 440 MLS/HR; Start 02/24/16 at 01:00 Insulin Aspart (Novolog Insulin Pen) NOVOLOG *MILD* ALGORI... Q6 SC Last administered on 02/29/16at 13:55; Admin Dose 1 UNIT; Start 02/26/16 at 18:00 Furosemide 20 mg 20 mg DAILY IV Last administered on 03/01/16at 09:05; Admin Dose 20 MG; Start 02/27/16 at 09:00 Ceftriaxone Sodium (Rocephin) 50 ml @ 100 mls/hr Q24H IVPB Last administered on 03/01/16at 13:08; Admin Dose 100 MLS/HR; Start 02/27/16 at 13:00 Metronidazole (Flagyl) 500 mg Q8 PO Last administered on 03/02/16at 05:10; Admin Dose 500 MG; Start 02/27/16 at 14:00 Hydralazine HCl (Apresoline) 75 mg Q8 PO Last administered on 03/02/16at 05:10 ; Admin Dose 75 MG; Start 02/29/16 at 14:00 Metoprolol Tartrate (Lopressor) 100 mg Q8 PO Last administered on 03/02/16at 05 :09; Admin Dose 100 MG; Start 02/29/16 at 14:00 Metoprolol Tartrate (Lopressor) 25 mg Q8 PO Last administered on 03/02/16at 05: 09; Admin Dose 25 MG; Start 02/29/16 at 14:00 Acetaminophen (Tylenol Tab) 650 mg Q6H PRN PO PAIN AND OR ELEVATED TEMP Last administered on 02/29/16at 13:49; Admin Dose 650 MG; Start 02/29/16 at 11:30 DERRICK DREW MD Mar 02, 2016 08:17
--- NOTE | 2016-03-02 08:42 | RADRPT ---
PROCEDURE: XR Chest. CLINICAL INDICATION: Pneumonia. CHF TECHNIQUE: AP view of the chest was performed. COMPARISON: 03/01/2016, 02/29/2016 FINDINGS: Overlying EKG wires limits evaluation. Endotracheal tube and feeding tube are again demonstrated. The heart is enlarged. Moderate pulmonary vascular congestion with layering left pleural effusion is present. No pneumothorax. IMPRESSION: 1. Cardiomegaly. 2. Moderate pulmonary vascular congestion with a layering left pleural effusion. 3. Support tubes and lines appear unchanged. RPTAT: QQ .Yoselin Logan MD, MD Date Time Electronically viewed and signed by .Yoselin Logan MD, on 03/02/2016 08:41 .M/
[2016-03-02] MEDS: LEVETIRACETAM IV 1,000 MG in SOD CHLORIDE 0.9% 100 ML IVPB SCH ×2 (08:56→20:49)
[2016-03-02] MEDS: FERROUS SULFATE 60 MG/ML 5ML CUP GTB SCH ×2 (08:57→20:49)
[2016-03-02] MEDS: MINOXIDIL 2.5 MG TAB PO SCH ×2 (08:57→20:49)
[2016-03-02] MEDS: AMLODIPINE 5 MG TAB PO SCH ×2 (08:57→20:50)
[2016-03-02] MEDS: FUROSEMIDE 20 MG INJ IV SCH (08:58)
[2016-03-02] MEDS: HEPARIN 5,000 UNIT/0.5 ML SYG SC SCH ×2 (09:00→20:51)
--- NOTE | 2016-03-02 09:06 | PN ---
Date/Time of Note Date/Time of Note DATE: 03/02/16 TIME: 09:05 Assessment/Plan VTE Prophylaxis VTE Prophylaxis Intervention: heparin Lines/Catheters IV C[facility]ter Type (from [facility] PICC Line Central line still needed: Yes Urinary Cath still in place: Yes Reason Cath still needed: other (indicate) Assessment/Plan Chief Complaint/Hosp Course 1. Type B aortic dissection. Continue blood pressure control. Continue ICU monitoring. Status post evaluation by vascular surgery. No surgical intervention as of now. 2. Accelerated hypertension. Currently controlled. On antihypertensives. 3. Acute hypoxic respiratory failure. Etiology unclear. Most probably secondary to aspiration. Continue ventilator support as per pulmonary. 4. Aspiration pneumonia. Continue antibiotics as per infectious diseases. 5. Acute kidney injury, most probably secondary to hemodynamics. Nephrology following. Use nephrotoxic drugs with caution. 6. Left cephalic vein thrombosis. Continue elevation. No need for therapeutic anticoagulation since this is a superficial vein. 7. Pulmonary embolism (02/29/2016). Therapeutic anticoagulation will be deferred to thoracic surgery. 8. Microcytic hypochromic anemia. Iron panel showing iron deficiency. Continue iron supplements. 9. Acute encephalopathy, most probably metabolic in origin. Electroencephalography showing background slowing suggesting bihemispheric subcortical dysfunction, possibly epileptiform activity. The patient was started on anticonvulsants for the same. 10. Sepsis secondary to gram-positive bacteremia. Latest blood cultures are negative. On antibiotics as per infectious diseases. 11. Fluids, electrolytes, and nutrition. Continue NG tube feedings. 12. Deep venous thrombosis prophylaxis. Subcutaneous heparin. 13. Gastrointestinal prophylaxis. Proton pump inhibitor. PLAN: Continue intensive care unit monitoring. Ventilator weaning as per pulmonary. Case discussed with Dr. Hernandez. Talk to the patient's billy Martinez in length. Explained the plan of care to her. Critical care time 45 minutes. Problems: Subjective 24 Hr Interval Summary Free Text/Dictation No changes in status. Exam/Review of Systems Vital Signs Vitals Vital Signs Date Time Temp Pulse Resp B/P Pulse Ox O2 Delivery O2 Flow Rate FiO2 03/02/16 06:00 73 20 125/64 99 03/02/16 05:15 30 03/02/16 04:00 99.6 Mechanical Ventilator Intake and Output 03/01/16 03/01/16 03/02/16 15:00 23:00 07:00 Intake Total 982.074 ml 783.00 ml 723.5 ml Output Total 885 ml 740 ml 625 ml Balance 97.074 ml 43.00 ml 98.5 ml Exam HEENT: Head normocephalic and atraumatic. Eyes: Anicteric sclerae. Conjunctivae clear. ENT: Nasal septum is midline. Oral mucosa is dry. NECK: Short and obese. Unable to visualize any neck veins. CARDIAC: Regular rate and rhythm. S1 and S2 heard. ABDOMEN: Protruded. Soft. Bowel sounds hypoactive in all 4 quadrants. GENITOURINARY: The patient has a Smalls catheter in place. EXTREMITIES: No cyanosis, no clubbing. Edema of bilateral lower extremities and bilateral upper extremities. Right upper extremity PICC line in place. Peripheral pulses palpable. NEUROLOGIC: The patient is sedated. Results Result Diagram: 03/02/16 0400 03/02/16 0400 Results 24 hrs Laboratory Tests Test 03/01/16 11:50 03/01/16 17:38 03/01/16 23:05 03/02/16 04:00 Bedside Glucose 121 131 132 Anion Gap 13 Basophils # 0.0 Basophils % 0.2 Blood Morphology Comment Blood Urea Nitrogen 34 H Calcium Level 8.9 Carbon Dioxide Level 29 Chloride Level 110 Creatinine 1.69 H Eosinophils # 0.8 H Eosinophils % 5.5 Glucose Level 137 Hematocrit 26.9 L Hemoglobin 8.9 L Lymphocytes # 0.9 Lymphocytes % 6.2 L Magnesium Level 2.4 Mean Corpuscular Hemoglobin 26.8 L Mean Corpuscular Hemoglobin Concent 32.9 Mean Corpuscular Volume 81.5 L Mean Platelet Volume 8.0 Monocytes # 1.2 H Monocytes % 7.8 Neutrophils # 12.1 H Neutrophils % 80.3 H Nucleated Red Blood Cells # 0.0 Nucleated Red Blood Cells % 0.0 Phosphorus Level 4.6 Platelet Count 403 Potassium Level 4.0 Red Blood Count 3.31 L Red Cell Distribution Width 18.0 H Sodium Level 148 H White Blood Count 15.1 H Test 03/02/16 05:07 Bedside Glucose 131 Medications Medications Current Medications Ondansetron HCl (Zofran Inj) 4 mg Q6H PRN IV NAUSEA AND/OR VOMITING; Start 02/18/16 at 09:30 Acetaminophen (Tylenol Supp) 650 mg Q4H PRN [place] PAIN LEVEL 1-3 OR FEVER Last administered on 02/24/16 14:32; Admin Dose 650 MG; Start 02/18/16 at 09:30 Morphine Sulfate (morphine) 2 mg Q4H PRN IV PAIN LEVEL 7-10 Last administered on 02/28/16 09:42; Admin Dose 2 MG; Start 02/18/16 at 09:30 Bisacodyl (Dulcolax Supp) 10 mg DAILY PRN [place] CONSTIPATION; Start 02/18/16 at 09 :30 Pantoprazole (Protonix Iv) 40 mg DAILY@06 IV Last administered on 03/02/16 05 :08; Admin Dose 40 MG; Start 02/19/16 at 06:00 Amlodipine Besylate (Norvasc) 5 mg BID PO Last administered on 03/02/16 08:57 ; Admin Dose 5 MG; Start 02/20/16 at 21:00 Hydralazine HCl (Apresoline) 10 mg Q6H PRN IV ELEVATED SYSTOLIC BP Last administered on 03/01/16 02:22; Admin Dose 10 MG; Start 02/20/16 at 22:00 Minoxidil (Loniten) 5 mg BID PO Last administered on 03/02/16 08:57; Admin Dose 5 MG; Start 02/20/16 at 22:00 Metoprolol Tartrate 5 mg 5 mg Q4H PRN IV HR>55 Hold SBP<100 Last administered on 03/01/16at 01:33; Admin Dose 5 MG; Start 02/21/16 at 11:30 Propofol 100 ml @ 3.189 mls/ hr Q12H IV Last administered on 03/02/16 08:30 ; Admin Dose 12.756 MLS/HR; Start 02/21/16 at 16:30 Fentanyl/Dextrose (D5W) 100 ml @ 0 mls/hr TITRATE IV Last administered on 03/02 03:42; Admin Dose 7.5 MLS/HR; Start 02/21/16 at 16:30 IV Flush (NS 10 ml) 10 ml PRN PRN IV IV PROTOCOL; Start 02/21/16 at 18:30 Ferrous Sulfate (Feosol Liquid Cup) 300 mg BID GTB Last administered on 08:57; Admin Dose 300 MG; Start 02/22/16 at 10:00 Heparin Sodium (Porcine) (Heparin (5000 Units/0.5 ml)) 5,000 unit BID SC Last administered on 03/02/16at 09:00; Admin Dose 5,000 UNIT; Start 02/22/16 at 21:00 Lorazepam 1 mg 1 mg Q1H PRN IV ANXIETY Last administered on 03/02/16at 05:12; Admin Dose 1 MG; Start 02/23/16 at 11:30 Fluconazole/ Sodium Chloride (Diflucan 100 Mg/ NS (Pmx)) 50 ml @ 50 mls/hr Q24H IVPB Last administered on 03/01/16at 14:02; Admin Dose 50 MLS/HR; Start at 14:00 Miscellaneous Information 1 ea NOTE XX ; Start 02/23/16 at 23:15 Glucose (Glutose) 15 gm Q15M PRN PO DECREASED GLUCOSE; Start 02/23/16 at 23:15 Glucose (Glutose) 22.5 gm Q15M PRN PO DECREASED GLUCOSE; Start 02/23/16 at 23: 15 Dextrose (D50w Syringe) 25 ml Q15M PRN IV DECREASED GLUCOSE; Start 02/23/16 at 23:15 Dextrose (D50w Syringe) 50 ml Q15M PRN IV DECREASED GLUCOSE; Start 02/23/16 at 23:15 Glucagon (Glucagen) 1 mg Q15M PRN IM DECREASED GLUCOSE; Start 02/23/16 at 23:15 Glucose 15 gm 15 gm Q15M PRN BUCCAL DECREASED GLUCOSE; Start 02/23/16 at 23:15 Levetiracetam/ Sodium Chloride (Keppra Iv/NS) 110 ml @ 440 mls/hr BID IVPB Last administered on 03/02/16at 08:56; Admin Dose 440 MLS/HR; Start 02/24/16 at 01:00 Insulin Aspart (Novolog Insulin Pen) NOVOLOG *MILD* ALGORI... Q6 SC Last administered on 02/29/16at 13:55; Admin Dose 1 UNIT; Start 02/26/16 at 18:00 Furosemide 20 mg 20 mg DAILY IV Last administered on 03/02/16at 08:58; Admin Dose 20 MG; Start 02/27/16 at 09:00 Ceftriaxone Sodium (Rocephin) 50 ml @ 100 mls/hr Q24H IVPB Last administered on 03/01/16at 13:08; Admin Dose 100 MLS/HR; Start 02/27/16 at 13:00 Metronidazole (Flagyl) 500 mg Q8 PO Last administered on 03/02/16at 05:10; Admin Dose 500 MG; Start 02/27/16 at 14:00 Hydralazine HCl (Apresoline) 75 mg Q8 PO Last administered on 03/02/16at 05:10 ; Admin Dose 75 MG; Start 02/29/16 at 14:00 Metoprolol Tartrate (Lopressor) 100 mg Q8 PO Last administered on 03/02/16at 05 :09; Admin Dose 100 MG; Start 02/29/16 at 14:00 Metoprolol Tartrate (Lopressor) 25 mg Q8 PO Last administered on 03/02/16at 05: 09; Admin Dose 25 MG; Start 02/29/16 at 14:00 Acetaminophen (Tylenol Tab) 650 mg Q6H PRN PO PAIN AND OR ELEVATED TEMP Last administered on 02/29/16at 13:49; Admin Dose 650 MG; Start 02/29/16 at 11:30 KEITH CRAIG NP Mar 02, 2016 09:06
--- NOTE | 2016-03-02 10:05 | CONS ---
Date/Time of Note Date/Time of Note DATE: 03/02/16 TIME: 10:03 Consult Date/Type/Reason Admit Date/Time Feb 18, 2016 at 09:14 Type of Consultation: Pulmonary Ordering Provider: ANAYA BREWSTER MD, [facility] Subjective Intubated on mechanical ventilation appears comfortable in no acute distress Objective Vital Signs Date Time Temp Pulse Resp B/P Pulse Ox O2 Delivery O2 Flow Rate FiO2 03/02/16 09:00 79 20 146/72 99 Mechanical Ventilator 03/02/16 08:00 99.0 03/02/16 05:15 30 Intake and Output 03/01/16 03/01/16 03/02/16 15:00 23:00 07:00 Intake Total 982.074 ml 783.00 ml 723.5 ml Output Total 885 ml 740 ml 625 ml Balance 97.074 ml 43.00 ml 98.5 ml PHYSICAL EXAMINATION GENERAL: A well-nourished well-developed gentleman intubated on mechanical ventilation. VITAL SIGNS: see below. HEENT: Pupils equal, round, and reactive to light. enlarged swollen tongue, CARDIAC: S1, S2, tachycardia. CHEST: Diminished air entry bilaterally. ABDOMEN: Mildly distended. No bowel sounds. EXTREMITIES: No cyanosis, clubbing edema +1 upper extremities NEUROLOGIC: generalized weakness. Results/Medications Result Diagram: 03/02/16 0400 03/02/16 0400 Results 24 hrs Chest x-ray shows improved pulmonary edema Laboratory Tests Test 03/01/16 11:50 03/01/16 17:38 03/01/16 23:05 03/02/16 04:00 Bedside Glucose 121 131 132 Anion Gap 13 Basophils # 0.0 Basophils % 0.2 Blood Morphology Comment Blood Urea Nitrogen 34 H Calcium Level 8.9 Carbon Dioxide Level 29 Chloride Level 110 Creatinine 1.69 H Eosinophils # 0.8 H Eosinophils % 5.5 Glucose Level 137 Hematocrit 26.9 L Hemoglobin 8.9 L Lymphocytes # 0.9 Lymphocytes % 6.2 L Magnesium Level 2.4 Mean Corpuscular Hemoglobin 26.8 L Mean Corpuscular Hemoglobin Concent 32.9 Mean Corpuscular Volume 81.5 L Mean Platelet Volume 8.0 Monocytes # 1.2 H Monocytes % 7.8 Neutrophils # 12.1 H Neutrophils % 80.3 H Nucleated Red Blood Cells # 0.0 Nucleated Red Blood Cells % 0.0 Phosphorus Level 4.6 Platelet Count 403 Potassium Level 4.0 Red Blood Count 3.31 L Red Cell Distribution Width 18.0 H Sodium Level 148 H White Blood Count 15.1 H Test 03/02/16 05:07 Bedside Glucose 131 Medications Current Medications Ondansetron HCl (Zofran Inj) 4 mg Q6H PRN IV NAUSEA AND/OR VOMITING; Start 02/18/16 at 09:30 Acetaminophen (Tylenol Supp) 650 mg Q4H PRN [place] PAIN LEVEL 1-3 OR FEVER Last administered on 02/24/16at 14:32; Admin Dose 650 MG; Start 02/18/16 at 09:30 Morphine Sulfate (morphine) 2 mg Q4H PRN IV PAIN LEVEL 7-10 Last administered on 02/28/16at 09:42; Admin Dose 2 MG; Start 02/18/16 at 09:30 Bisacodyl (Dulcolax Supp) 10 mg DAILY PRN [place] CONSTIPATION; Start 02/18/16 at 09 :30 Pantoprazole (Protonix Iv) 40 mg DAILY@06 IV Last administered on 03/02/16at 05 :08; Admin Dose 40 MG; Start 02/19/16 at 06:00 Amlodipine Besylate (Norvasc) 5 mg BID PO Last administered on 03/02/16at 08:57 ; Admin Dose 5 MG; Start 02/20/16 at 21:00 Hydralazine HCl (Apresoline) 10 mg Q6H PRN IV ELEVATED SYSTOLIC BP Last administered on 03/01/16at 02:22; Admin Dose 10 MG; Start 02/20/16 at 22:00 Minoxidil (Loniten) 5 mg BID PO Last administered on 03/02/16at 08:57; Admin Dose 5 MG; Start 02/20/16 at 22:00 Metoprolol Tartrate 5 mg 5 mg Q4H PRN IV HR>55 Hold SBP<100 Last administered on 03/01/16at 01:33; Admin Dose 5 MG; Start 02/21/16 at 11:30 Propofol 100 ml @ 3.189 mls/ hr Q12H IV Last administered on 03/02/16at 08:30 ; Admin Dose 12.756 MLS/HR; Start 02/21/16 at 16:30 Fentanyl/Dextrose (D5W) 100 ml @ 0 mls/hr TITRATE IV Last administered on 03/02at 03:42; Admin Dose 7.5 MLS/HR; Start 02/21/16 at 16:30 IV Flush (NS 10 ml) 10 ml PRN PRN IV IV PROTOCOL; Start 02/21/16 at 18:30 Ferrous Sulfate (Feosol Liquid Cup) 300 mg BID GTB Last administered on at 08:57; Admin Dose 300 MG; Start 02/22/16 at 10:00 Heparin Sodium (Porcine) (Heparin (5000 Units/0.5 ml)) 5,000 unit BID SC Last administered on 03/02/16at 09:00; Admin Dose 5,000 UNIT; Start 02/22/16 at 21:00 Lorazepam 1 mg 1 mg Q1H PRN IV ANXIETY Last administered on 03/02/16at 05:12; Admin Dose 1 MG; Start 02/23/16 at 11:30 Fluconazole/ Sodium Chloride (Diflucan 100 Mg/ NS (Pmx)) 50 ml @ 50 mls/hr Q24H IVPB Last administered on 03/01/16at 14:02; Admin Dose 50 MLS/HR; Start at 14:00 Miscellaneous Information 1 ea NOTE XX ; Start 02/23/16 at 23:15 Glucose (Glutose) 15 gm Q15M PRN PO DECREASED GLUCOSE; Start 02/23/16 at 23:15 Glucose (Glutose) 22.5 gm Q15M PRN PO DECREASED GLUCOSE; Start 02/23/16 at 23: 15 Dextrose (D50w Syringe) 25 ml Q15M PRN IV DECREASED GLUCOSE; Start 02/23/16 at 23:15 Dextrose (D50w Syringe) 50 ml Q15M PRN IV DECREASED GLUCOSE; Start 02/23/16 at 23:15 Glucagon (Glucagen) 1 mg Q15M PRN IM DECREASED GLUCOSE; Start 02/23/16 at 23:15 Glucose 15 gm 15 gm Q15M PRN BUCCAL DECREASED GLUCOSE; Start 02/23/16 at 23:15 Levetiracetam/ Sodium Chloride (Keppra Iv/NS) 110 ml @ 440 mls/hr BID IVPB Last administered on 03/02/16at 08:56; Admin Dose 440 MLS/HR; Start 02/24/16 at 01:00 Insulin Aspart (Novolog Insulin Pen) NOVOLOG *MILD* ALGORI... Q6 SC Last administered on 02/29/16at 13:55; Admin Dose 1 UNIT; Start 02/26/16 at 18:00 Furosemide 20 mg 20 mg DAILY IV Last administered on 03/02/16at 08:58; Admin Dose 20 MG; Start 02/27/16 at 09:00 Ceftriaxone Sodium (Rocephin) 50 ml @ 100 mls/hr Q24H IVPB Last administered on 03/01/16at 13:08; Admin Dose 100 MLS/HR; Start 02/27/16 at 13:00 Metronidazole (Flagyl) 500 mg Q8 PO Last administered on 03/02/16at 05:10; Admin Dose 500 MG; Start 02/27/16 at 14:00 Hydralazine HCl (Apresoline) 75 mg Q8 PO Last administered on 03/02/16at 05:10 ; Admin Dose 75 MG; Start 02/29/16 at 14:00 Metoprolol Tartrate (Lopressor) 100 mg Q8 PO Last administered on 03/02/16at 05 :09; Admin Dose 100 MG; Start 02/29/16 at 14:00 Metoprolol Tartrate (Lopressor) 25 mg Q8 PO Last administered on 03/02/16at 05: 09; Admin Dose 25 MG; Start 02/29/16 at 14:00 Acetaminophen 650 mg 650 mg Q6H PRN PO PAIN AND OR ELEVATED TEMP Last administered on 02/29/16at 13:49; Admin Dose 650 MG; Start 02/29/16 at 11:30 Midazolam HCl/ Dextrose (Versed/D5W) 50 ml @ 1 mls/hr TITRATE IV ; Start at 10:00 Assessment/Plan Chief Complaint/Hosp Course IMPRESSION 1. Hypertensive Emergency 2. Type B Aortic Dissection. No evidence on proximal dissection on recent CT neck and chest, 3. Encephalopathy, possibly secondary to antihypertensive medications. 4. Aspiration pneumonia with hypoxemic respiratory failure.Possible left effusion. New PE. 5. FARRUKH RECS: 1. Vent support unable to wean at present secondary to AMS, hypertension and upper airway edema. 2. Continue BP control 3. Sedation vacation as tolerated. CPAP weaning trial if patient is awake and alert 4. Replete lytes 5. Am CXR/ABG 6. Abx per ID 7. Anticoagulation per thoracic surgery 8. Will discuss with vascular ? for repair of dissection.? prognosis guarded Problems: ANAYA BREWSTER MD, [facility] Mar 02, 2016 10:05
[2016-03-02] MEDS: MIDAZOLAM 50 MG in DEXTROSE 5% 40 ML IV SCH ×3 (10:39→23:08)
--- NOTE | 2016-03-02 10:45 | CONS ---
Date/Time of Note Date/Time of Note DATE: 03/02/16 TIME: 10:33 Assessment/Plan Assessment/Plan Chief Complaint/Hosp Course ID PROGRESS NOTE 24H INTERVAL SUMMARY * Low grade temps range 99.0 -99.9 yesterday, WBC stable 15.1 * Orally intubated, non-communicative, chart reviewed PHYSICAL EXAMINATION: GENERAL: 45 yo overweight M, VSS, NAD, Vented HEENT: ETT-> Secure to Vent NECK: Supple, trachea midline. CHEST: Rise symmetrical. Scattered coarse BS HEART: NSR on tele ABDOMEN: Soft EXTREMITIES: Without cyanosis. Bilateral trace edema. ID ASSESSMENT: 1. Severe sepsis due to PNA * 02/19/16 BCx(+) Staph-CoNS 1/2 bottles on admission => consistent w/skin contaminant * Repeat BCx (-) 2. Acute respiratory failure. 3. Aspiration PNA => Sputum culture grew E. coli, Angelina albicans. 4. Congestive heart failure exacerbation. 5. New onset of seizures. 6. HTN urgency associated with Type B aortic dissection. 7. Acute renal failure. 8. Anemia. 9. Pulmonary emboli INVASIVES: Endotracheal tube, NG tube, Smalls, PICC line. CURRENT ABX: 1. Ceftriaxone. 2. Fluconazole. 3. Vancomycin. s/p Zosyn ID RECOMMENDATIONS: CONTINUE Current ABX, Continue supportive care, await clinical improvement . Problems: Consultation Date/Type/Reason Admit Date/Time Feb 18, 2016 at 09:14 Type of Consultation: ID Referring Provider: ANAYA BREWSTER MD, [facility] Exam/Review of Systems Vital Signs Vitals Vital Signs Date Time Temp Pulse Resp B/P Pulse Ox O2 Delivery O2 Flow Rate FiO2 03/02/16 09:00 79 20 146/72 99 Mechanical Ventilator 03/02/16 08:00 99.0 03/02/16 05:15 30 Intake and Output 03/01/16 03/01/16 03/02/16 15:00 23:00 07:00 Intake Total 982.074 ml 783.00 ml 723.5 ml Output Total 885 ml 740 ml 625 ml Balance 97.074 ml 43.00 ml 98.5 ml Results Result Diagram: 03/02/16 0400 03/02/16 0400 Results 24 hrs Laboratory Tests Test 03/01/16 11:50 03/01/16:38 03/01/16 23:05 03/02/16 04:00 Bedside Glucose 121 131 132 Anion Gap 13 Basophils # 0.0 Basophils % 0.2 Blood Morphology Comment Blood Urea Nitrogen 34 H Calcium Level 8.9 Carbon Dioxide Level 29 Chloride Level 110 Creatinine 1.69 H Eosinophils # 0.8 H Eosinophils % 5.5 Glucose Level 137 Hematocrit 26.9 L Hemoglobin 8.9 L Lymphocytes # 0.9 Lymphocytes % 6.2 L Magnesium Level 2.4 Mean Corpuscular Hemoglobin 26.8 L Mean Corpuscular Hemoglobin Concent 32.9 Mean Corpuscular Volume 81.5 L Mean Platelet Volume 8.0 Monocytes # 1.2 H Monocytes % 7.8 Neutrophils # 12.1 H Neutrophils % 80.3 H Nucleated Red Blood Cells # 0.0 Nucleated Red Blood Cells % 0.0 Phosphorus Level 4.6 Platelet Count 403 Potassium Level 4.0 Red Blood Count 3.31 L Red Cell Distribution Width 18.0 H Sodium Level 148 H White Blood Count 15.1 H Test 03/02/16 05:07 Bedside Glucose 131 Medications Medications Current Medications Ondansetron HCl (Zofran Inj) 4 mg Q6H PRN IV NAUSEA AND/OR VOMITING; Start 02/18/16 at 09:30 Acetaminophen (Tylenol Supp) [address] PAIN LEVEL 1-3 OR FEVER Last administered on 02/24/16at 14:32; Admin Dose 650 MG; Start 02/18/16 at 09:30 Morphine Sulfate (morphine) 2 mg Q4H PRN IV PAIN LEVEL 7-10 Last administered on 02/28/16at 09:42; Admin Dose 2 MG; Start 02/18/16 at 09:30 Bisacodyl (Dulcolax Supp) [address] CONSTIPATION; Start 02/18/16 at 09 :30 Pantoprazole (Protonix Iv) 40 mg DAILY@06 IV Last administered on 03/02/16at 05 :08; Admin Dose 40 MG; Start 02/19/16 at 06:00 Amlodipine Besylate (Norvasc) 5 mg BID PO Last administered on 03/02/16at 08:57 ; Admin Dose 5 MG; Start 02/20/16 at 21:00 Hydralazine HCl (Apresoline) 10 mg Q6H PRN IV ELEVATED SYSTOLIC BP Last administered on 03/01/16at 02:22; Admin Dose 10 MG; Start 02/20/16 at 22:00 Minoxidil (Loniten) 5 mg BID PO Last administered on 03/02/16at 08:57; Admin Dose 5 MG; Start 02/20/16 at 22:00 Metoprolol Tartrate 5 mg 5 mg Q4H PRN IV HR>55 Hold SBP<100 Last administered on 03/01/16at 01:33; Admin Dose 5 MG; Start 02/21/16 at 11:30 Propofol 100 ml @ 3.189 mls/ hr Q12H IV Last administered on 03/02/16at 08:30 ; Admin Dose 12.756 MLS/HR; Start 02/21/16 at 16:30 Fentanyl/Dextrose (D5W) 100 ml @ 0 mls/hr TITRATE IV Last administered on 03/02 03:42; Admin Dose 7.5 MLS/HR; Start 02/21/16 at 16:30 IV Flush (NS 10 ml) 10 ml PRN PRN IV IV PROTOCOL; Start 02/21/16 at 18:30 Ferrous Sulfate (Feosol Liquid Cup) 300 mg BID GTB Last administered on at 08:57; Admin Dose 300 MG; Start 02/22/16 at 10:00 Heparin Sodium (Porcine) (Heparin (5000 Units/0.5 ml)) 5,000 unit BID SC Last administered on 03/02/16at 09:00; Admin Dose 5,000 UNIT; Start 02/22/16 at 21:00 Lorazepam 1 mg 1 mg Q1H PRN IV ANXIETY Last administered on 03/02/16at 05:12; Admin Dose 1 MG; Start 02/23/16 at 11:30 Fluconazole/ Sodium Chloride (Diflucan 100 Mg/ NS (Pmx)) 50 ml @ 50 mls/hr Q24H IVPB Last administered on 03/01/16at 14:02; Admin Dose 50 MLS/HR; Start at 14:00 Miscellaneous Information 1 ea NOTE XX ; Start 02/23/16 at 23:15 Glucose (Glutose) 15 gm Q15M PRN PO DECREASED GLUCOSE; Start 02/23/16 at 23:15 Glucose (Glutose) 22.5 gm Q15M PRN PO DECREASED GLUCOSE; Start 02/23/16 at 23: 15 Dextrose (D50w Syringe) 25 ml Q15M PRN IV DECREASED GLUCOSE; Start 02/23/16 at 23:15 Dextrose (D50w Syringe) 50 ml Q15M PRN IV DECREASED GLUCOSE; Start 02/23/16 at 23:15 Glucagon (Glucagen) 1 mg Q15M PRN IM DECREASED GLUCOSE; Start 02/23/16 at 23:15 Glucose 15 gm 15 gm Q15M PRN BUCCAL DECREASED GLUCOSE; Start 02/23/16 at 23:15 Levetiracetam/ Sodium Chloride (Keppra Iv/NS) 110 ml @ 440 mls/hr BID IVPB Last administered on 03/02/16at 08:56; Admin Dose 440 MLS/HR; Start 02/24/16 at 01:00 Insulin Aspart (Novolog Insulin Pen) NOVOLOG *MILD* ALGORI... Q6 SC Last administered on 02/29/16at 13:55; Admin Dose 1 UNIT; Start 02/26/16 at 18:00 Furosemide 20 mg 20 mg DAILY IV Last administered on 03/02/16at 08:58; Admin Dose 20 MG; Start 02/27/16 at 09:00 Ceftriaxone Sodium (Rocephin) 50 ml @ 100 mls/hr Q24H IVPB Last administered on 03/01/16at 13:08; Admin Dose 100 MLS/HR; Start 02/27/16 at 13:00 Metronidazole (Flagyl) 500 mg Q8 PO Last administered on 03/02/16at 05:10; Admin Dose 500 MG; Start 02/27/16 at 14:00 Hydralazine HCl (Apresoline) 75 mg Q8 PO Last administered on 03/02/16at 05:10 ; Admin Dose 75 MG; Start 02/29/16 at 14:00 Metoprolol Tartrate (Lopressor) 100 mg Q8 PO Last administered on 03/02/16at 05 :09; Admin Dose 100 MG; Start 02/29/16 at 14:00 Metoprolol Tartrate (Lopressor) 25 mg Q8 PO Last administered on 03/02/16at 05: 09; Admin Dose 25 MG; Start 02/29/16 at 14:00 Acetaminophen 650 mg 650 mg Q6H PRN PO PAIN AND OR ELEVATED TEMP Last administered on 02/29/16at 13:49; Admin Dose 650 MG; Start 02/29/16 at 11:30 Midazolam HCl/ Dextrose (Versed/D5W) 50 ml @ 1 mls/hr TITRATE IV ; Start at 10:00 LD YBARRA NP Mar 02, 2016 10:44
--- NOTE | 2016-03-02 13:29 | CONS ---
Date/Time of Note Date/Time of Note DATE: 03/02/16 TIME: 13:28 Assessment/Plan Assessment/Plan Chief Complaint/Hosp Course Additional Assessment/Plan 1. Acute kidney injury, likely secondary to acute tubular necrosis from contrast-induced nephropathy and also secondary to ischemic acute tubular necrosis from aortic dissection. 2. A type B Helio aortic dissection. 3. Hypertension 4. acute resp failiure intubated on ventilator 5 EDEMA 6 hypernatremia plan ck lytes LASIX PRN CK LABS Problems: Consultation Date/Type/Reason Admit Date/Time Feb 18, 2016 at 09:14 Initial Consult Date 02/26/16 Type of Consultation: renal Referring Provider: ANAYA BREWSTER MD, [facility] Exam/Review of Systems Vital Signs Vitals Vital Signs Date Time Temp Pulse Resp B/P Pulse Ox O2 Delivery O2 Flow Rate FiO2 03/02/16 12:00 94 03/02/16 11:30 155/83 95 03/02/16 11:10 30 30 03/02/16 11:00 Mechanical Ventilator 03/02/16 08:00 99.0 Intake and Output 03/01/16 03/01/16 03/02/16 15:00 23:00 07:00 Intake Total 982.074 ml 783.00 ml 723.5 ml Output Total 885 ml 740 ml 625 ml Balance 97.074 ml 43.00 ml 98.5 ml Exam Respiratory: diminished breath sounds Cardiovascular: regular rate and rhythm Gastrointestinal: bowel sounds (+), soft Extremities: edema (++) Results Result Diagram: 03/02/16 0400 03/02/16 0400 Results 24 hrs Laboratory Tests Test 03/01/16 17:38 03/01/16 23:05 03/02/16 04:00 03/02/16 05:07 Bedside Glucose 131 132 131 Anion Gap 13 Basophils # 0.0 Basophils % 0.2 Blood Morphology Comment Blood Urea Nitrogen 34 H Calcium Level 8.9 Carbon Dioxide Level 29 Chloride Level 110 Creatinine 1.69 H Eosinophils # 0.8 H Eosinophils % 5.5 Glucose Level 137 Hematocrit 26.9 L Hemoglobin 8.9 L Lymphocytes # 0.9 Lymphocytes % 6.2 L Magnesium Level 2.4 Mean Corpuscular Hemoglobin 26.8 L Mean Corpuscular Hemoglobin Concent 32.9 Mean Corpuscular Volume 81.5 L Mean Platelet Volume 8.0 Monocytes # 1.2 H Monocytes % 7.8 Neutrophils # 12.1 H Neutrophils % 80.3 H Nucleated Red Blood Cells # 0.0 Nucleated Red Blood Cells % 0.0 Phosphorus Level 4.6 Platelet Count 403 Potassium Level 4.0 Red Blood Count 3.31 L Red Cell Distribution Width 18.0 H Sodium Level 148 H White Blood Count 15.1 H Test 03/02/16 12:19 Bedside Glucose 125 Medications Medications Current Medications Ondansetron HCl (Zofran Inj) 4 mg Q6H PRN IV NAUSEA AND/OR VOMITING; Start 02/18/16 at 09:30 Acetaminophen (Tylenol Supp) 650 mg Q4H PRN SD PAIN LEVEL 1-3 OR FEVER Last administered on 02/24/16at 14:32; Admin Dose 650 MG; Start 02/18/16 at 09:30 Morphine Sulfate (morphine) 2 mg Q4H PRN IV PAIN LEVEL 7-10 Last administered on 02/28/16at 09:42; Admin Dose 2 MG; Start 02/18/16 at 09:30 Bisacodyl (Dulcolax Supp) 10 mg DAILY PRN SD CONSTIPATION; Start 02/18/16 at 09 :30 Pantoprazole (Protonix Iv) 40 mg DAILY@06 IV Last administered on 03/02/16at 05 :08; Admin Dose 40 MG; Start 02/19/16 at 06:00 Amlodipine Besylate (Norvasc) 5 mg BID PO Last administered on 03/02/16at 08:57 ; Admin Dose 5 MG; Start 02/20/16 at 21:00 Hydralazine HCl (Apresoline) 10 mg Q6H PRN IV ELEVATED SYSTOLIC BP Last administered on 03/01/16at 02:22; Admin Dose 10 MG; Start 02/20/16 at 22:00 Minoxidil (Loniten) 5 mg BID PO Last administered on 03/02/16at 08:57; Admin Dose 5 MG; Start 02/20/16 at 22:00 Metoprolol Tartrate 5 mg 5 mg Q4H PRN IV HR>55 Hold SBP<100 Last administered on 03/01/16at 01:33; Admin Dose 5 MG; Start 02/21/16 at 11:30 Propofol 100 ml @ 3.189 mls/ hr Q12H IV Last administered on 03/02/16at 08:30 ; Admin Dose 12.756 MLS/HR; Start 02/21/16 at 16:30 Fentanyl/Dextrose (D5W) 100 ml @ 0 mls/hr TITRATE IV Last administered on 03/02at 03:42; Admin Dose 7.5 MLS/HR; Start 02/21/16 at 16:30 IV Flush (NS 10 ml) 10 ml PRN PRN IV IV PROTOCOL; Start 02/21/16 at 18:30 Ferrous Sulfate (Feosol Liquid Cup) 300 mg BID GTB Last administered on at 08:57; Admin Dose 300 MG; Start 02/22/16 at 10:00 Heparin Sodium (Porcine) (Heparin (5000 Units/0.5 ml)) 5,000 unit BID SC Last administered on 03/02/16at 09:00; Admin Dose 5,000 UNIT; Start 02/22/16 at 21:00 Lorazepam 1 mg 1 mg Q1H PRN IV ANXIETY Last administered on 03/02/16at 05:12; Admin Dose 1 MG; Start 02/23/16 at 11:30 Fluconazole/ Sodium Chloride (Diflucan 100 Mg/ NS (Pmx)) 50 ml @ 50 mls/hr Q24H IVPB Last administered on 03/01/16at 14:02; Admin Dose 50 MLS/HR; Start at 14:00 Miscellaneous Information 1 ea NOTE XX ; Start 02/23/16 at 23:15 Glucose (Glutose) 15 gm Q15M PRN PO DECREASED GLUCOSE; Start 02/23/16 at 23:15 Glucose (Glutose) 22.5 gm Q15M PRN PO DECREASED GLUCOSE; Start 02/23/16 at 23: 15 Dextrose (D50w Syringe) 25 ml Q15M PRN IV DECREASED GLUCOSE; Start 02/23/16 at 23:15 Dextrose (D50w Syringe) 50 ml Q15M PRN IV DECREASED GLUCOSE; Start 02/23/16 at 23:15 Glucagon (Glucagen) 1 mg Q15M PRN IM DECREASED GLUCOSE; Start 02/23/16 at 23:15 Glucose 15 gm 15 gm Q15M PRN BUCCAL DECREASED GLUCOSE; Start 02/23/16 at 23:15 Levetiracetam/ Sodium Chloride (Keppra Iv/NS) 110 ml @ 440 mls/hr BID IVPB Last administered on 03/02/16 08:56; Admin Dose 440 MLS/HR; Start 02/24/16 at 01:00 Insulin Aspart (Novolog Insulin Pen) NOVOLOG *MILD* ALGORI... Q6 SC Last administered on 02/29/16 13:55; Admin Dose 1 UNIT; Start 02/26/16 at 18:00 Furosemide 20 mg 20 mg DAILY IV Last administered on 03/02/16 08:58; Admin Dose 20 MG; Start 02/27/16 at 09:00 Ceftriaxone Sodium (Rocephin) 50 ml @ 100 mls/hr Q24H IVPB Last administered on 03/01/16 13:08; Admin Dose 100 MLS/HR; Start 02/27/16 at 13:00 Metronidazole (Flagyl) 500 mg Q8 PO Last administered on 03/02/16 05:10; Admin Dose 500 MG; Start 02/27/16 at 14:00 Hydralazine HCl (Apresoline) 75 mg Q8 PO Last administered on 03/02/16 05:10 ; Admin Dose 75 MG; Start 02/29/16 at 14:00 Metoprolol Tartrate (Lopressor) 100 mg Q8 PO Last administered on 03/02/16 05 :09; Admin Dose 100 MG; Start 02/29/16 at 14:00 Metoprolol Tartrate (Lopressor) 25 mg Q8 PO Last administered on 03/02/16at 05: 09; Admin Dose 25 MG; Start 02/29/16 at 14:00 Acetaminophen 650 mg 650 mg Q6H PRN PO PAIN AND OR ELEVATED TEMP Last administered on 02/29/16 13:49; Admin Dose 650 MG; Start 02/29/16 at 11:30 Midazolam HCl/ Dextrose (Versed/D5W) 50 ml @ 1 mls/hr TITRATE IV Last administered on 03/02/16 10:39; Admin Dose 5 MLS/HR; Start 03/02/16 at 10:00 SASHA OWEN MD Mar 02, 2016 13:29
--- NOTE | 2016-03-02 13:29 | PN ---
Date/Time of Note Date/Time of Note DATE: 03/02/16 TIME: 13:27 Assessment/Plan Lines/Catheters IV Catheter Type (from Nrsg): PICC Line Smalls in Place (from Nrsg): Yes Assessment/Plan Chief Complaint/Hosp Course IMPRESSION: Type B aortic dissection. The patient's blood pressure more controlled RECOMMENDATIONS: At this time, we would continue blood pressure management, monitor vital signs and laboratory values in an intensive care unit setting. Vent support per pulm medicine No plan for surgery. Abx Repeat CTA Dissection involving the thoracic aorta arising distal to the origin of the left subclavian artery and extending into the abdominal aorta. The distal extent was not included on the study. Flow within both true and false lumen to the level of the celiac artery. Would continue BP control , Vent support Type B aortic dissection no plan for surgery at this time I discussed with the patient and Dr. Mccabe and staff Problems: Subjective 24 Hr Interval Summary Constitutional: improved Pain Control: mild Exam/Review of Systems Vital Signs Vitals Vital Signs Date Time Temp Pulse Resp B/P Pulse Ox O2 Delivery O2 Flow Rate FiO2 03/02/16 12:00 94 03/02/16 11:30 155/83 95 03/02/16 11:10 30 30 03/02/16 11:00 Mechanical Ventilator 03/02/16 08:00 99.0 Intake and Output 03/01/16 03/01/16 03/02/16 15:00 23:00 07:00 Intake Total 982.074 ml 783.00 ml 723.5 ml Output Total 885 ml 740 ml 625 ml Balance 97.074 ml 43.00 ml 98.5 ml Exam ENMT: mucosa pink and moist, nl external ears & nose, nl lips & teeth, nl nasal mucosa & septum Neck: non-tender, supple Respiratory: clear to auscultation, normal air movement Cardiovascular: nl pulses, regular rate and rhythm Results Result Diagram: 03/02/1639903/02/16399 KAYLYN RADFORD MD Mar 02, 2016 13:29
[2016-03-02] MEDS: FLUCONAZOLE 100 MG/NS (PMX) 50 ML IVPB SCH (14:14)
[2016-03-02] MEDS: CEFTRIAXONE 1 GM/50 ML (PMX) 50 ML IVPB SCH (14:14)
[2016-03-02] MEDS: ACETAMINOPHEN 325 MG TAB PO PRN (20:52)
[2016-03-03] VITALS (68 sets, daily range): BP systolic 101–199; BP diastolic 56–94; PULSE 67–106; RESP 9–25
[2016-03-03] MEDS: IPRATROPIUM (HFA) 12.9 GM INHALER INH SCH ×4 (01:40→20:05)
[2016-03-03] MEDS: ALBUTEROL HFA 8 GM INHALER INH SCH ×4 (01:40→20:05)
[2016-03-03 05:08] LABS: BASOPHIL # 0.1 10^3/ul (0.0-0.1); BASOPHILS % 0.3 % (0.0-2.0); EOSINOPHILS # 0.7 10^3/ul (0.0-0.5); EOSINOPHILS % 4.4 % (0.0-7.0); HEMOGLOBIN 8.8 g/dl (14.0-18.0); LYMPHOCYTES % 6.1 % (15.0-51.0); MEAN CORPUSCULAR HEMOGLOBIN 26.4 pg (29.0-33.0); MEAN CORPUSCULAR HGB CONC 32.7 g/dl (32.0-37.0); MEAN CORPUSCULAR VOLUME 80.5 fl (82.0-101.0); NEUTROPHIL # 13.7 10^3/ul (1.6-7.5); NEUTROPHILS % 83.2 % (39.0-77.0); PLATELET COUNT 427 10^3/UL (140-440); RED BLOOD COUNT 3.35 10^6/ul (4.70-6.10); RED CELL DISTRIBUTION WIDTH 17.4 % (11.5-14.5); UNCORRECTED WBC 16.5 10^3/ul (4.8-10.8); WHITE BLOOD COUNT 16.5 10^3/ul (4.8-10.8)
[2016-03-03 05:10] LABS: CREATININE 1.58 mg/dl (0.61-1.24)
[2016-03-03 05:11] LABS: CALCIUM 8.8 mg/dl (8.4-10.2); CONDITION 1; LH ANALYZER COMMENTS 1
[2016-03-03] MEDS: PANTOPRAZOLE 40 MG INJ IV SCH (05:12)
[2016-03-03] MEDS: INSULIN ASPART [NOVOLOG] 3 ML PEN SC SCH ×5 (05:12→23:53)
[2016-03-03] MEDS: METOPROLOL 25 MG TAB PO SCH ×3 (05:13→22:08)
[2016-03-03] MEDS: METOPROLOL 100 MG TAB PO SCH ×3 (05:13→22:09)
[2016-03-03] MEDS: metroNIDAZOLE 500 MG TAB PO SCH ×3 (05:13→22:10)
[2016-03-03 07:54] LABS: AADO2 Arterial 98.3 mmHg (7.0-24.0); Allen Test ACCEPTAB; Arterial Base Excess 3.7 mmol/L (-3.0-3); Arterial COHb 0.3 % (0.0-3.0); Arterial Fraction of Oxyhgb 94.3 % (93.0-99.0); Arterial HCO3 27.1 mmol/L (22.0-26.0); Arterial MetHb 0.2 % (0.0-1.5); Arterial Total Hemglobin 9.5 g/dl (12.0-18.0); MODE VENT - AC
[2016-03-03 08:15] LABS: MAGNESIUM 2.4 mg/dl (1.7-2.5); PHOSPHORUS 4.5 mg/dl (2.5-4.9)
[2016-03-03] MEDS: MIDAZOLAM 50 MG in DEXTROSE 5% 40 ML IV SCH (08:35)
[2016-03-03] MEDS: FERROUS SULFATE 60 MG/ML 5ML CUP GTB SCH ×2 (09:03→21:02)
[2016-03-03] MEDS: AMLODIPINE 5 MG TAB PO SCH ×2 (09:03→21:06)
[2016-03-03] MEDS: MINOXIDIL 2.5 MG TAB PO SCH ×2 (09:03→21:06)
--- NOTE | 2016-03-03 09:03 | PN ---
Date/Time of Note Date/Time of Note DATE: 03/03/16 TIME: 09:01 Assessment/Plan VTE Prophylaxis VTE Prophylaxis Intervention: heparin Lines/Catheters [facility] P[facility] Line Central line still needed: Yes Urinary Cath still in place: Yes Reason Cath still needed: terminal illness/intractable pain Assessment/Plan Chief Complaint/Hosp Course 1. Type B aortic dissection. Continue blood pressure control. Continue ICU monitoring. Status post evaluation by vascular surgery. No surgical intervention as of now. 2. Accelerated hypertension. Currently controlled. On antihypertensives. 3. Acute hypoxic respiratory failure. Etiology unclear. Most probably secondary to aspiration. Continue ventilator support as per pulmonary. 4. Aspiration pneumonia. Continue antibiotics as per infectious diseases. 5. Acute kidney injury, most probably secondary to hemodynamics. Nephrology following. Use nephrotoxic drugs with caution. 6. Left cephalic vein thrombosis. Continue elevation. 7. Pulmonary embolism (02/29/2016). Therapeutic anticoagulation will be deferred to thoracic surgery. 8. Microcytic hypochromic anemia. Iron panel showing iron deficiency. Continue iron supplements. 9. Acute encephalopathy, most probably metabolic in origin. Electroencephalography showing background slowing suggesting bihemispheric subcortical dysfunction, possibly epileptiform activity. The patient was started on anticonvulsants for the same. 10. S/P sepsis secondary to gram-positive bacteremia. Latest blood cultures are negative. On antibiotics as per infectious diseases. 11. Fluids, electrolytes, and nutrition. Continue NG tube feedings. 12. Deep venous thrombosis prophylaxis. Subcutaneous heparin. 13. Gastrointestinal prophylaxis. Proton pump inhibitor. PLAN: Continue intensive care unit monitoring. Ventilator weaning as per pulmonary. Case discussed with Dr. Hernandez. Critical care time 35 minutes. Problems: Subjective 24 Hr Interval Summary Free Text/Dictation The patient's status remains unchanged. Exam/Review of Systems Vital Signs Vitals Vital Signs Date Time Temp Pulse Resp B/P Pulse Ox O2 Delivery O2 Flow Rate FiO2 03/03/16 06:00 76 20 117/64 98 03/03/16 05:00 30 03/03/16 04:00 100.0 Mechanical Ventilator Intake and Output 03/02/16 03/02/16 03/03/16 15:00 23:00 07:00 Intake Total 912.5 ml 693 ml 698 ml Output Total 2675 ml 970 ml 750 ml Balance -1762.5 ml -277 ml -52 ml Exam HEENT: Head normocephalic and atraumatic. Eyes: Anicteric sclerae. Conjunctivae clear. ENT: Nasal septum is midline. Oral mucosa is dry. NECK: Short and obese. Unable to visualize any neck veins. CARDIAC: Regular rate and rhythm. S1 and S2 heard. ABDOMEN: Protruded. Soft. Bowel sounds hypoactive in all 4 quadrants. GENITOURINARY: The patient has a Smalls catheter in place. EXTREMITIES: No cyanosis, no clubbing. Edema of bilateral lower extremities and bilateral upper extremities. Right upper extremity PICC line in place. Peripheral pulses palpable. NEUROLOGIC: The patient is sedated. Results Result Diagram: 03/03/16 0400 03/03/16 0400 Results 24 hrs Laboratory Tests Test 03/02/16 12:19 03/02/16 17:34 03/03/16 00:01 03/03/16 04:00 Bedside Glucose 125 126 140 Anion Gap 13 Basophils # 0.1 Basophils % 0.3 Blood Morphology Comment Blood Urea Nitrogen 36 H Calcium Level 8.8 Carbon Dioxide Level 28 Chloride Level 109 Creatinine 1.58 H Eosinophils # 0.7 H Eosinophils % 4.4 Glucose Level 198 Hematocrit 27.0 L Hemoglobin 8.8 L Lymphocytes # 1.0 Lymphocytes % 6.1 L Magnesium Level 2.4 Mean Corpuscular Hemoglobin 26.4 L Mean Corpuscular Hemoglobin Concent 32.7 Mean Corpuscular Volume 80.5 L Mean Platelet Volume 8.0 Monocytes # 1.0 H Monocytes % 6.0 Neutrophils # 13.7 H Neutrophils % 83.2 H Nucleated Red Blood Cells # 0.0 Nucleated Red Blood Cells % 0.0 Phosphorus Level 4.5 Platelet Count 427 Potassium Level 4.0 Red Blood Count 3.35 L Red Cell Distribution Width 17.4 H Sodium Level 146 H White Blood Count 16.5 H Test 03/03/16 05:11 03/03/16 07:00 Bedside Glucose 138 Arterial Blood HCO3 27.1 H Arterial Blood Base Excess 3.7 H Arterial Blood Oxygen Saturation 94.8 L Jovanny Test ACCEPTAB Arterial Blood Gas Puncture Site Right Radial Arterial Blood Carboxyhemoglobin 0.3 Arterial Blood Date Drawn 03/03/2016 7:30:32 AM Arterial Blood Methemoglobin 0.2 Arterial Blood pCO2 (Temp correct) 36.3 Arterial Blood pH (Temp corrected) 7.491 H Arterial Blood pO2 (Temp corrected) 73.0 L Blood Gas A-a O2 Differential 98.3 H Blood Gas Actual Respiration Rate 20 Blood Gas Inspiratory Pressure 39.0 Blood Gas Low PEEP Setting 10.0 Blood Gas Modality VENT - AC Blood Gas Notified Time 03/03/2016 7:54:42 AM Blood Gas Notified Whom HG Blood Gas Respiration Rate 20.0 Blood Gas Specimen Source Blood arterial Blood Gas Temperature 37.0 Blood Gas Tidal Volume 550.0 FiO2 30.0 Oxyhemoglobin Percent 94.3 Total Hemoglobin 9.5 L Medications Medications Current Medications Ondansetron HCl (Zofran Inj) 4 mg Q6H PRN IV NAUSEA AND/OR VOMITING; Start 02/18/16 at 09:30 Acetaminophen (Tylenol Supp) 650 mg Q4H PRN DC PAIN LEVEL 1-3 OR FEVER Last administered on 02/24/16at 14:32; Admin Dose 650 MG; Start 02/18/16 at 09:30 Morphine Sulfate (morphine) 2 mg Q4H PRN IV PAIN LEVEL 7-10 Last administered on 02/28/16at 09:42; Admin Dose 2 MG; Start 02/18/16 at 09:30 Bisacodyl (Dulcolax Supp) 10 mg DAILY PRN DC CONSTIPATION; Start 02/18/16 at 09 :30 Pantoprazole (Protonix Iv) 40 mg DAILY@06 IV Last administered on 03/03/16at 05 :12; Admin Dose 40 MG; Start 02/19/16 at 06:00 Amlodipine Besylate (Norvasc) 5 mg BID PO Last administered on 03/02/16at 20:50 ; Admin Dose 5 MG; Start 02/20/16 at 21:00 Hydralazine HCl (Apresoline) 10 mg Q6H PRN IV ELEVATED SYSTOLIC BP Last administered on 03/01/16at 02:22; Admin Dose 10 MG; Start 02/20/16 at 22:00 Minoxidil (Loniten) 5 mg BID PO Last administered on 03/02/16at 20:49; Admin Dose 5 MG; Start 02/20/16 at 22:00 Metoprolol Tartrate 5 mg 5 mg Q4H PRN IV HR>55 Hold SBP<100 Last administered on 03/01/16at 01:33; Admin Dose 5 MG; Start 02/21/16 at 11:30 Propofol 100 ml @ 3.189 mls/ hr Q12H IV Last administered on 03/02/16at 08:30 ; Admin Dose 12.756 MLS/HR; Start 02/21/16 at 16:30 Fentanyl/Dextrose (D5W) 100 ml @ 0 mls/hr TITRATE IV Last administered on 03/02at 23:08; Admin Dose 10 MLS/HR; Start 02/21/16 at 16:30 IV Flush (NS 10 ml) 10 ml PRN PRN IV IV PROTOCOL; Start 02/21/16 at 18:30 Ferrous Sulfate (Feosol Liquid Cup) 300 mg BID GTB Last administered on at 20:49; Admin Dose 300 MG; Start 02/22/16 at 10:00 Heparin Sodium (Porcine) (Heparin (5000 Units/0.5 ml)) 5,000 unit BID SC Last administered on 03/02/16at 20:51; Admin Dose 5,000 UNIT; Start 02/22/16 at 21:00 Lorazepam 1 mg 1 mg Q1H PRN IV ANXIETY Last administered on 03/02/16at 05:12; Admin Dose 1 MG; Start 02/23/16 at 11:30 Fluconazole/ Sodium Chloride (Diflucan 100 Mg/ NS (Pmx)) 50 ml @ 50 mls/hr Q24H IVPB Last administered on 03/02/16at 14:14; Admin Dose 50 MLS/HR; Start at 14:00 Miscellaneous Information 1 ea NOTE XX ; Start 02/23/16 at 23:15 Glucose (Glutose) 15 gm Q15M PRN PO DECREASED GLUCOSE; Start 02/23/16 at 23:15 Glucose (Glutose) 22.5 gm Q15M PRN PO DECREASED GLUCOSE; Start 02/23/16 at 23: 15 Dextrose (D50w Syringe) 25 ml Q15M PRN IV DECREASED GLUCOSE; Start 02/23/16 at 23:15 Dextrose (D50w Syringe) 50 ml Q15M PRN IV DECREASED GLUCOSE; Start 02/23/16 at 23:15 Glucagon (Glucagen) 1 mg Q15M PRN IM DECREASED GLUCOSE; Start 02/23/16 at 23:15 Glucose 15 gm 15 gm Q15M PRN BUCCAL DECREASED GLUCOSE; Start 12/9/16 at 23:15 Levetiracetam/ Sodium Chloride (Keppra Iv/NS) 110 ml @ 440 mls/hr BID IVPB Last administered on 03/02/16at 20:49; Admin Dose 440 MLS/HR; Start 02/24/16 at 01:00 Insulin Aspart (Novolog Insulin Pen) NOVOLOG *MILD* ALGORI... Q6 SC Last administered on 02/29/16 13:55; Admin Dose 1 UNIT; Start 02/26/16 at 18:00 Furosemide 20 mg 20 mg DAILY IV Last administered on 03/02/16at 08:58; Admin Dose 20 MG; Start 02/27/16 at 09:00 Ceftriaxone Sodium (Rocephin) 50 ml @ 100 mls/hr Q24H IVPB Last administered on 03/02/16at 14:14; Admin Dose 100 MLS/HR; Start 02/27/16 at 13:00 Metronidazole (Flagyl) 500 mg Q8 PO Last administered on 03/03/16 05:13; Admin Dose 500 MG; Start 02/27/16 at 14:00 Hydralazine HCl (Apresoline) 75 mg Q8 PO Last administered on 03/03/16 05:14 ; Admin Dose 75 MG; Start 02/29/16 at 14:00 Metoprolol Tartrate (Lopressor) 100 mg Q8 PO Last administered on 03/03/16 05 :13; Admin Dose 100 MG; Start 02/29/16 at 14:00 Metoprolol Tartrate (Lopressor) 25 mg Q8 PO Last administered on 03/03/16at 05: 13; Admin Dose 25 MG; Start 02/29/16 at 14:00 Acetaminophen 650 mg 650 mg Q6H PRN PO PAIN AND OR ELEVATED TEMP Last administered on 03/02/16at 20:52; Admin Dose 650 MG; Start 02/29/16 at 11:30 Midazolam HCl/ Dextrose (Versed/D5W) 50 ml @ 1 mls/hr TITRATE IV Last administered on 03/03/16at 08:35; Admin Dose 6.5 MLS/HR; Start 03/02/16 at 10: 00 KEITH CRAIG NP Mar 03, 2016 09:03
[2016-03-03] MEDS: FUROSEMIDE 20 MG INJ IV SCH (09:04)
[2016-03-03] MEDS: LEVETIRACETAM IV 1,000 MG in SOD CHLORIDE 0.9% 100 ML IVPB SCH ×2 (09:04→21:12)
[2016-03-03] MEDS: HEPARIN 5,000 UNIT/0.5 ML SYG SC SCH (09:06)
[2016-03-03] MEDS: hydrALAzine 20 MG INJ IV PRN (09:09)
--- NOTE | 2016-03-03 09:27 | CONS ---
Date/Time of Note Date/Time of Note DATE: 03/03/16 TIME: 09:23 Assessment/Plan Assessment/Plan Additional Assessment/Plan 1.HTN emergency- well Rx when sedation, but difficult to wean with agitation now. Family at bedside - aayush try to help with weaning to "calm" down the patient when he wakes up. 2.Aortic dissection-type B again demonstrated by Chest CT 02/29/16 - no surgery planned - con't med rx - CTsurgery follows 3.abnl ecg-lateral TWI-negative troponin x 3 since admit 4.anxiety- making difficult to wean 5.ARF- avoid nephrotoxivc meds - stable overall. 6. Pericardial effusion by echo-small with NL EF- no signns of tamponade 7.Encephalopathic 8.Pulmonary embolism - Rx as noted- not anti-coagulated now, will discuss with CT team if ok to consider anti-coagulation. Consultation Date/Type/Reason Admit Date/Time Feb 18, 2016 at 09:14 Type of Consultation: renal Referring Provider: ANA[facility] BREWSTER MD, [facility] Interval Summary Free Text/Dictation Off all drips but having increased BP when agitated/stimulated - still difficult to wean with agitation. ROS: No fever, no chills, no nausea, no vomiting, no diarrhea/constipation No recent weight changes No chest pain, no PND, no orthopnea No dizziness, blurred vision No thirst, no heat or cold intolerance (per nurse) Exam/Review of Systems Vital Signs Vitals Vital Signs Date Time Temp Pulse Resp B/P Pulse Ox O2 Delivery O2 Flow Rate FiO2 03/03/16 08:00 84 03/03/16 06:00 20 117/64 98 03/03/16 05:00 30 03/03/16 04:00 100.0 Mechanical Ventilator Intake and Output 03/02/16 03/02/16 03/03/16 15:00 23:00 07:00 Intake Total 912.5 ml 693 ml 698 ml Output Total 2675 ml 970 ml 750 ml Balance -1762.5 ml -277 ml -52 ml Exam General: WN/WD/NAD, AOx 0 HEENT: Unicetric/atraumatic/EOMI (does not follow commands) NECK: JVD elevated, no thyromegaly, intub Lymph: no lymphadenopathy HEART: regular with no S3, II/ systolic murmur at apex and 1/6 diast at base LUNGS: Coarse sounds ABD: soft, NT, ND, +BS : Intact Neuro: non focal SKIN: chronic changes EXT: trace edema Results Result Diagram: 03/03/16 0400 03/03/16 0400 Results 24 hrs Laboratory Tests Test 03/02/16 12:19 03/02/16 17:34 03/03/16 00:01 03/03/16 04:00 Bedside Glucose 125 126 140 Anion Gap 13 Basophils # 0.1 Basophils % 0.3 Blood Morphology Comment Blood Urea Nitrogen 36 H Calcium Level 8.8 Carbon Dioxide Level 28 Chloride Level 109 Creatinine 1.58 H Eosinophils # 0.7 H Eosinophils % 4.4 Glucose Level 198 Hematocrit 27.0 L Hemoglobin 8.8 L Lymphocytes # 1.0 Lymphocytes % 6.1 L Magnesium Level 2.4 Mean Corpuscular Hemoglobin 26.4 L Mean Corpuscular Hemoglobin Concent 32.7 Mean Corpuscular Volume 80.5 L Mean Platelet Volume 8.0 Monocytes # 1.0 H Monocytes % 6.0 Neutrophils # 13.7 H Neutrophils % 83.2 H Nucleated Red Blood Cells # 0.0 Nucleated Red Blood Cells % 0.0 Phosphorus Level 4.5 Platelet Count 427 Potassium Level 4.0 Red Blood Count 3.35 L Red Cell Distribution Width 17.4 H Sodium Level 146 H White Blood Count 16.5 H Test 03/03/16 05:11 03/03/16 07:00 Bedside Glucose 138 Arterial Blood HCO3 27.1 H Arterial Blood Base Excess 3.7 H Arterial Blood Oxygen Saturation 94.8 L Jovanny Test ACCEPTAB Arterial Blood Gas Puncture Site Right Radial Arterial Blood Carboxyhemoglobin 0.3 Arterial Blood Date Drawn 03/03/2016 7:30:32 AM Arterial Blood Methemoglobin 0.2 Arterial Blood pCO2 (Temp correct) 36.3 Arterial Blood pH (Temp corrected) 7.491 H Arterial Blood pO2 (Temp corrected) 73.0 L Blood Gas A-a O2 Differential 98.3 H Blood Gas Actual Respiration Rate 20 Blood Gas Inspiratory Pressure 39.0 Blood Gas Low PEEP Setting 10.0 Blood Gas Modality VENT - AC Blood Gas Notified Time 03/03/2016 7:54:42 AM Blood Gas Notified Whom HG Blood Gas Respiration Rate 20.0 Blood Gas Specimen Source Blood arterial Blood Gas Temperature 37.0 Blood Gas Tidal Volume 550.0 FiO2 30.0 Oxyhemoglobin Percent 94.3 Total Hemoglobin 9.5 L Medications Medications Current Medications Ondansetron HCl (Zofran Inj) 4 mg Q6H PRN IV NAUSEA AND/OR VOMITING; Start 02/18/16 at 09:30 Acetaminophen (Tylenol Supp) 650 mg Q4H PRN [place] PAIN LEVEL 1-3 OR FEVER Last administered on 02/24/16at 14:32; Admin Dose 650 MG; Start 02/18/16 at 09:30 Morphine Sulfate (morphine) 2 mg Q4H PRN IV PAIN LEVEL 7-10 Last administered on 02/28/16at 09:42; Admin Dose 2 MG; Start 02/18/16 at 09:30 Bisacodyl (Dulcolax Supp) 10 mg DAILY PRN [place] CONSTIPATION; Start 02/18/16 at 09 :30 Pantoprazole (Protonix Iv) 40 mg DAILY@06 IV Last administered on 03/03/16 05 :12; Admin Dose 40 MG; Start 02/19/16 at 06:00 Amlodipine Besylate (Norvasc) 5 mg BID PO Last administered on 03/03/16 09:03 ; Admin Dose 5 MG; Start 02/20/16 at 21:00 Hydralazine HCl (Apresoline) 10 mg Q6H PRN IV ELEVATED SYSTOLIC BP Last administered on 03/03/16at 09:09; Admin Dose 10 MG; Start 02/20/16 at 22:00 Minoxidil (Loniten) 5 mg BID PO Last administered on 03/03/16 09:03; Admin Dose 5 MG; Start 02/20/16 at 22:00 Metoprolol Tartrate 5 mg 5 mg Q4H PRN IV HR>55 Hold SBP<100 Last administered on 03/01/16at 01:33; Admin Dose 5 MG; Start 02/21/16 at 11:30 Propofol 100 ml @ 3.189 mls/ hr Q12H IV Last administered on 03/02/16at 08:30 ; Admin Dose 12.756 MLS/HR; Start 02/21/16 at 16:30 Fentanyl/Dextrose (D5W) 100 ml @ 0 mls/hr TITRATE IV Last administered on 03/02at 23:08; Admin Dose 10 MLS/HR; Start 02/21/16 at 16:30 IV Flush (NS 10 ml) 10 ml PRN PRN IV IV PROTOCOL; Start 02/21/16 at 18:30 Ferrous Sulfate (Feosol Liquid Cup) 300 mg BID GTB Last administered on at 09:03; Admin Dose 300 MG; Start 02/22/16 at 10:00 Heparin Sodium (Porcine) (Heparin (5000 Units/0.5 ml)) 5,000 unit BID SC Last administered on 03/03/16at 09:06; Admin Dose 5,000 UNIT; Start 02/22/16 at 21:00 Lorazepam 1 mg 1 mg Q1H PRN IV ANXIETY Last administered on 03/02/16at 05:12; Admin Dose 1 MG; Start 02/23/16 at 11:30 Fluconazole/ Sodium Chloride (Diflucan 100 Mg/ NS (Pmx)) 50 ml @ 50 mls/hr Q24H IVPB Last administered on 03/02/16at 14:14; Admin Dose 50 MLS/HR; Start at 14:00 Miscellaneous Information 1 ea NOTE XX ; Start 02/23/16 at 23:15 Glucose (Glutose) 15 gm Q15M PRN PO DECREASED GLUCOSE; Start 02/23/16 at 23:15 Glucose (Glutose) 22.5 gm Q15M PRN PO DECREASED GLUCOSE; Start 02/23/16 at 23: 15 Dextrose (D50w Syringe) 25 ml Q15M PRN IV DECREASED GLUCOSE; Start 02/23/16 at 23:15 Dextrose (D50w Syringe) 50 ml Q15M PRN IV DECREASED GLUCOSE; Start 02/23/16 at 23:15 Glucagon (Glucagen) 1 mg Q15M PRN IM DECREASED GLUCOSE; Start 02/23/16 at 23:15 Glucose 15 gm 15 gm Q15M PRN BUCCAL DECREASED GLUCOSE; Start 02/23/16 at 23:15 Levetiracetam/ Sodium Chloride (Keppra Iv/NS) 110 ml @ 440 mls/hr BID IVPB Last administered on 03/03/16at 09:04; Admin Dose 440 MLS/HR; Start 02/24/16 at 01:00 Insulin Aspart (Novolog Insulin Pen) NOVOLOG *MILD* ALGORI... Q6 SC Last administered on 02/29/16 13:55; Admin Dose 1 UNIT; Start 02/26/16 at 18:00 Furosemide 20 mg 20 mg DAILY IV Last administered on 03/03/16 09:04; Admin Dose 20 MG; Start 02/27/16 at 09:00 Ceftriaxone Sodium (Rocephin) 50 ml @ 100 mls/hr Q24H IVPB Last administered on 03/02/16 14:14; Admin Dose 100 MLS/HR; Start 02/27/16 at 13:00 Metronidazole (Flagyl) 500 mg Q8 PO Last administered on 03/03/16 05:13; Admin Dose 500 MG; Start 02/27/16 at 14:00 Hydralazine HCl (Apresoline) 75 mg Q8 PO Last administered on 03/03/16 05:14 ; Admin Dose 75 MG; Start 02/29/16 at 14:00 Metoprolol Tartrate (Lopressor) 100 mg Q8 PO Last administered on 03/03/16 05 :13; Admin Dose 100 MG; Start 02/29/16 at 14:00 Metoprolol Tartrate (Lopressor) 25 mg Q8 PO Last administered on 03/03/16 05: 13; Admin Dose 25 MG; Start 02/29/16 at 14:00 Acetaminophen 650 mg 650 mg Q6H PRN PO PAIN AND OR ELEVATED TEMP Last administered on 03/02/16 20:52; Admin Dose 650 MG; Start 02/29/16 at 11:30 Midazolam HCl/ Dextrose (Versed/D5W) 50 ml @ 1 mls/hr TITRATE IV Last administered on 03/03/16 08:35; Admin Dose 6.5 MLS/HR; Start 03/02/16 at 10: 00 DERRICK DREW MD Mar 03, 2016 09:27
--- NOTE | 2016-03-03 10:16 | RADRPT ---
PROCEDURE: Chest x-ray CLINICAL INDICATION: Shortness of breath TECHNIQUE: Chest single view COMPARISON: 03/02/2016 FINDINGS: Endotracheal tube, nasogastric tube and right arm PICC line remain in good position. There is stabl e cardiomegaly. Ongoing mild CHF is identified. No confluent pneumonia seen. Suspect small left p leural IMPRESSION: 1. Endotracheal tube, nasogastric tube and right arm PICC line remain in good position. 2. Cardiomegaly with ongoing mild CHF and small left pleural effusions RPTAT: HH .Alex Mitchell MD, MD Date Time Electronically viewed and signed by .Alex Mitchell MD, on 03/03/2016 10:16 .W/
[2016-03-03] MEDS ORDERED: HEPARIN 1000 UNITS/ML 10 ML INJ IV PRN (11:00)
--- NOTE | 2016-03-03 11:20 | PN ---
Date/Time of Note Date/Time of Note DATE: 03/03/16 TIME: 11:19 Assessment/Plan VTE Prophylaxis VTE Prophylaxis Intervention: other Lines/Catheters IV [facility]ter Type (from [facility] Central line still needed: No Urinary Cath still in place: No Assessment/Plan Chief Complaint/Hosp Course IMPRESSION: Type B aortic dissection. The patient's blood pressure more controlled RECOMMENDATIONS: At this time, we would continue blood pressure management, monitor vital signs and laboratory values in an intensive care unit setting. Vent support per pulm medicine No plan for surgery. Abx Repeat CTA Dissection involving the thoracic aorta arising distal to the origin of the left subclavian artery and extending into the abdominal aorta. The distal extent was not included on the study. Flow within both true and false lumen to the level of the celiac artery. Would continue BP control , Vent support Type B aortic dissection PE, OK to start anticoagulation no plan for surgery at this time I discussed with the patient and Dr. Mccabe and staff Problems: Subjective 24 Hr Interval Summary Gastrointestinal: no complaints Genitourinary: no complaints Musculoskeletal: no complaints Skin: no complaints Exam/Review of Systems Vital Signs Vitals Vital Signs Date Time Temp Pulse Resp B/P Pulse Ox O2 Delivery O2 Flow Rate FiO2 03/03/16 08:00 84 03/03/16 06:00 20 117/64 98 03/03/16 05:00 30 03/03/16 04:00 100.0 Mechanical Ventilator Intake and Output 03/02/16 03/02/16 03/03/16 15:00 23:00 07:00 Intake Total 912.5 ml 693 ml 698 ml Output Total 2675 ml 970 ml 750 ml Balance -1762.5 ml -277 ml -52 ml Exam Neck: non-tender, supple Respiratory: clear to auscultation, normal air movement Cardiovascular: nl pulses, regular rate and rhythm Gastrointestinal: nl liver, spleen, non-tender, soft Results Result Diagram: 03/03/16 0400 03/03/16 0400 Results 24 hrs Laboratory Tests Test 03/02/16 12:19 03/02/16 17:34 03/03/16 00:01 03/03/16 04:00 Bedside Glucose 125 126 140 Anion Gap 13 Basophils # 0.1 Basophils % 0.3 Blood Morphology Comment Blood Urea Nitrogen 36 H Calcium Level 8.8 Carbon Dioxide Level 28 Chloride Level 109 Creatinine 1.58 H Eosinophils # 0.7 H Eosinophils % 4.4 Glucose Level 198 Hematocrit 27.0 L Hemoglobin 8.8 L Lymphocytes # 1.0 Lymphocytes % 6.1 L Magnesium Level 2.4 Mean Corpuscular Hemoglobin 26.4 L Mean Corpuscular Hemoglobin Concent 32.7 Mean Corpuscular Volume 80.5 L Mean Platelet Volume 8.0 Monocytes # 1.0 H Monocytes % 6.0 Neutrophils # 13.7 H Neutrophils % 83.2 H Nucleated Red Blood Cells # 0.0 Nucleated Red Blood Cells % 0.0 Phosphorus Level 4.5 Platelet Count 427 Potassium Level 4.0 Red Blood Count 3.35 L Red Cell Distribution Width 17.4 H Sodium Level 146 H White Blood Count 16.5 H Test 03/03/16 05:11 03/03/16 07:00 Bedside Glucose 138 Arterial Blood HCO3 27.1 H Arterial Blood Base Excess 3.7 H Arterial Blood Oxygen Saturation 94.8 L Jovanny Test ACCEPTAB Arterial Blood Gas Puncture Site Right Radial Arterial Blood Carboxyhemoglobin 0.3 Arterial Blood Date Drawn 03/03/2016 7:30:32 AM Arterial Blood Methemoglobin 0.2 Arterial Blood pCO2 (Temp correct) 36.3 Arterial Blood pH (Temp corrected) 7.491 H Arterial Blood pO2 (Temp corrected) 73.0 L Blood Gas A-a O2 Differential 98.3 H Blood Gas Actual Respiration Rate 20 Blood Gas Inspiratory Pressure 39.0 Blood Gas Low PEEP Setting 10.0 Blood Gas Modality VENT - AC Blood Gas Notified Time 03/03/2016 7:54:42 AM Blood Gas Notified Whom HG Blood Gas Respiration Rate 20.0 Blood Gas Specimen Source Blood arterial Blood Gas Temperature 37.0 Blood Gas Tidal Volume 550.0 FiO2 30.0 Oxyhemoglobin Percent 94.3 Total Hemoglobin 9.5 L Medications Medications Current Medications Ondansetron HCl (Zofran Inj) 4 mg Q6H PRN IV NAUSEA AND/OR VOMITING; Start 02/18/16 at 09:30 Acetaminophen (Tylenol Supp) 650 mg Q4H PRN [place] PAIN LEVEL 1-3 OR FEVER Last administered on 02/24/16at 14:32; Admin Dose 650 MG; Start 02/18/16 at 09:30 Morphine Sulfate (morphine) 2 mg Q4H PRN IV PAIN LEVEL 7-10 Last administered on 02/28/16at 09:42; Admin Dose 2 MG; Start 02/18/16 at 09:30 Bisacodyl (Dulcolax Supp) 10 mg DAILY PRN [place] CONSTIPATION; Start 02/18/16 at 09 :30 Pantoprazole (Protonix Iv) 40 mg DAILY@06 IV Last administered on 03/03/16 05 :12; Admin Dose 40 MG; Start 02/19/16 at 06:00 Amlodipine Besylate (Norvasc) 5 mg BID PO Last administered on 03/03/16 09:03 ; Admin Dose 5 MG; Start 02/20/16 at 21:00 Hydralazine HCl (Apresoline) 10 mg Q6H PRN IV ELEVATED SYSTOLIC BP Last administered on 03/03/16 09:09; Admin Dose 10 MG; Start 02/20/16 at 22:00 Minoxidil (Loniten) 5 mg BID PO Last administered on 03/03/16 09:03; Admin Dose 5 MG; Start 02/20/16 at 22:00 Metoprolol Tartrate 5 mg 5 mg Q4H PRN IV HR>55 Hold SBP<100 Last administered on 03/01/16at 01:33; Admin Dose 5 MG; Start 02/21/16 at 11:30 Propofol 100 ml @ 3.189 mls/ hr Q12H IV Last administered on 03/02/16at 08:30 ; Admin Dose 12.756 MLS/HR; Start 02/21/16 at 16:30 Fentanyl/Dextrose (D5W) 100 ml @ 0 mls/hr TITRATE IV Last administered on 03/02at 23:08; Admin Dose 10 MLS/HR; Start 02/21/16 at 16:30 IV Flush (NS 10 ml) 10 ml PRN PRN IV IV PROTOCOL; Start 02/21/16 at 18:30 Ferrous Sulfate (Feosol Liquid Cup) 300 mg BID GTB Last administered on 09:03; Admin Dose 300 MG; Start 02/22/16 at 10:00 Lorazepam 1 mg 1 mg Q1H PRN IV ANXIETY Last administered on 03/02/16 05:12; Admin Dose 1 MG; Start 02/23/16 at 11:30 Fluconazole/ Sodium Chloride (Diflucan 100 Mg/ NS (Pmx)) 50 ml @ 50 mls/hr Q24H IVPB Last administered on 03/02/16at 14:14; Admin Dose 50 MLS/HR; Start at 14:00 Miscellaneous Information 1 ea NOTE XX ; Start 02/23/16 at 23:15 Glucose (Glutose) 15 gm Q15M PRN PO DECREASED GLUCOSE; Start 02/23/16 at 23:15 Glucose (Glutose) 22.5 gm Q15M PRN PO DECREASED GLUCOSE; Start 02/23/16 at 23: 15 Dextrose (D50w Syringe) 25 ml Q15M PRN IV DECREASED GLUCOSE; Start 02/23/16 at 23:15 Dextrose (D50w Syringe) 50 ml Q15M PRN IV DECREASED GLUCOSE; Start 02/23/16 at 23:15 Glucagon (Glucagen) 1 mg Q15M PRN IM DECREASED GLUCOSE; Start 02/23/16 at 23:15 Glucose 15 gm 15 gm Q15M PRN BUCCAL DECREASED GLUCOSE; Start 02/23/16 at 23:15 Levetiracetam/ Sodium Chloride (Keppra Iv/NS) 110 ml @ 440 mls/hr BID IVPB Last administered on 03/03/16at 09:04; Admin Dose 440 MLS/HR; Start 02/24/16 at 01:00 Insulin Aspart (Novolog Insulin Pen) NOVOLOG *MILD* ALGORI... Q6 SC Last administered on 02/29/16at 13:55; Admin Dose 1 UNIT; Start 02/26/16 at 18:00 Furosemide 20 mg 20 mg DAILY IV Last administered on 03/03/16at 09:04; Admin Dose 20 MG; Start 02/27/16 at 09:00 Ceftriaxone Sodium (Rocephin) 50 ml @ 100 mls/hr Q24H IVPB Last administered on 03/02/16at 14:14; Admin Dose 100 MLS/HR; Start 02/27/16 at 13:00 Metronidazole (Flagyl) 500 mg Q8 PO Last administered on 03/03/16at 05:13; Admin Dose 500 MG; Start 02/27/16 at 14:00 Hydralazine HCl (Apresoline) 75 mg Q8 PO Last administered on 03/03/16at 05:14 ; Admin Dose 75 MG; Start 02/29/16 at 14:00 Metoprolol Tartrate (Lopressor) 100 mg Q8 PO Last administered on 03/03/16at 05 :13; Admin Dose 100 MG; Start 02/29/16 at 14:00 Metoprolol Tartrate (Lopressor) 25 mg Q8 PO Last administered on 03/03/16at 05: 13; Admin Dose 25 MG; Start 02/29/16 at 14:00 Acetaminophen 650 mg 650 mg Q6H PRN PO PAIN AND OR ELEVATED TEMP Last administered on 03/02/16at 20:52; Admin Dose 650 MG; Start 02/29/16 at 11:30 Midazolam HCl/ Dextrose (Versed/D5W) 50 ml @ 1 mls/hr TITRATE IV Last administered on 03/03/16at 08:35; Admin Dose 6.5 MLS/HR; Start 03/02/16 at 10: 00 KAYLYN RADFORD MD Mar 03, 2016 11:20
[2016-03-03] MEDS ORDERED: MIDAZOLAM 50 MG in DEXTROSE 5% 40 ML IV SCH (11:30)
[2016-03-03] MEDS ORDERED: DEXMEDETOMIDINE HCL 200 MCG in SOD CHLORIDE 0.9% 48 ML IV SCH (12:00)
[2016-03-03 12:19] LABS: BASOPHIL # 0.1 10^3/ul (0.0-0.1); BASOPHILS % 0.9 % (0.0-2.0); EOSINOPHILS # 0.5 10^3/ul (0.0-0.5); EOSINOPHILS % 3.4 % (0.0-7.0); HEMATOCRIT 27.3 % (42.0-52.0); HEMOGLOBIN 8.9 g/dl (14.0-18.0); LYMPHOCYTES # 1.3 10^3/ul (0.8-2.9); LYMPHOCYTES % 8.9 % (15.0-51.0); MEAN CORPUSCULAR HEMOGLOBIN 26.3 pg (29.0-33.0); MEAN CORPUSCULAR HGB CONC 32.7 g/dl (32.0-37.0); MEAN CORPUSCULAR VOLUME 80.3 fl (82.0-101.0); MEAN PLATELET VOLUME 7.7 fl (7.4-10.4); MONOCYTE # 0.9 10^3/ul (0.3-0.9); MONOCYTES % 5.8 % (0.0-11.0); NEUTROPHIL # 12.3 10^3/ul (1.6-7.5); PLATELET COUNT 420 10^3/UL (140-440); RED BLOOD COUNT 3.39 10^6/ul (4.70-6.10); RED CELL DISTRIBUTION WIDTH 17.1 % (11.5-14.5); UNCORRECTED WBC 15.2 10^3/ul (4.8-10.8); WHITE BLOOD COUNT 15.2 10^3/ul (4.8-10.8)
[2016-03-03 12:29] LABS: CONDITION 1; LH ANALYZER COMMENTS 1
--- NOTE | 2016-03-03 12:30 | CONS ---
Date/Time of Note Date/Time of Note DATE: 03/03/16 TIME: 12:29 Consult Date/Type/Reason Admit Date/Time Feb 18, 2016 at 09:14 Type of Consultation: pulmonary Ordering Provider: ANAYA BREWSTER MD, [facility] Subjective Patient failed weaning trial yesterday secondary to agitation and hypertension Continues mechanical ventilation Not consistently opening eyes or following commands Objective Vital Signs Date Time Temp Pulse Resp B/P Pulse Ox O2 Delivery O2 Flow Rate FiO2 03/03/16 11:30 84 20 122/65 100 Mechanical Ventilator 03/03/16 11:10 30 03/03/16 08:00 99.7 Intake and Output 03/02/16 03/02/16 03/03/16 15:00 23:00 07:00 Intake Total 912.5 ml 693 ml 698 ml Output Total 2675 ml 970 ml 750 ml Balance -1762.5 ml -277 ml -52 ml PHYSICAL EXAMINATION GENERAL: A well-nourished well-developed gentleman intubated on mechanical ventilation. VITAL SIGNS: see below. HEENT: Pupils equal, round, and reactive to light. enlarged swollen tongue, CARDIAC: S1, S2, tachycardia. CHEST: Diminished air entry bilaterally. ABDOMEN: Mildly distended. No bowel sounds. EXTREMITIES: No cyanosis, clubbing edema +1 upper extremities NEUROLOGIC: generalized weakness. Results/Medications Result Diagram: 03/03/16 0400 03/03/16 0400 Results 24 hrs Chest x-ray Pulmonary edema Laboratory Tests Test 03/02/16 17:34 03/03/16 00:01 03/03/16 04:00 03/03/16 05:11 Bedside Glucose 126 140 138 Anion Gap 13 Basophils # 0.1 Basophils % 0.3 Blood Morphology Comment Blood Urea Nitrogen 36 H Calcium Level 8.8 Carbon Dioxide Level 28 Chloride Level 109 Creatinine 1.58 H Eosinophils # 0.7 H Eosinophils % 4.4 Glucose Level 198 Hematocrit 27.0 L Hemoglobin 8.8 L Lymphocytes # 1.0 Lymphocytes % 6.1 L Magnesium Level 2.4 Mean Corpuscular Hemoglobin 26.4 L Mean Corpuscular Hemoglobin Concent 32.7 Mean Corpuscular Volume 80.5 L Mean Platelet Volume 8.0 Monocytes # 1.0 H Monocytes % 6.0 Neutrophils # 13.7 H Neutrophils % 83.2 H Nucleated Red Blood Cells # 0.0 Nucleated Red Blood Cells % 0.0 Phosphorus Level 4.5 Platelet Count 427 Potassium Level 4.0 Red Blood Count 3.35 L Red Cell Distribution Width 17.4 H Sodium Level 146 H White Blood Count 16.5 H Test 03/03/16 07:00 03/03/16 11:55 Arterial Blood HCO3 27.1 H Arterial Blood Base Excess 3.7 H Arterial Blood Oxygen Saturation 94.8 L Jovanny Test ACCEPTAB Arterial Blood Gas Puncture Site Right Radial Arterial Blood Carboxyhemoglobin 0.3 Arterial Blood Date Drawn 03/03/2016 7:30:32 AM Arterial Blood Methemoglobin 0.2 Arterial Blood pCO2 (Temp correct) 36.3 Arterial Blood pH (Temp corrected) 7.491 H Arterial Blood pO2 (Temp corrected) 73.0 L Blood Gas A-a O2 Differential 98.3 H Blood Gas Actual Respiration Rate 20 Blood Gas Inspiratory Pressure 39.0 Blood Gas Low PEEP Setting 10.0 Blood Gas Modality VENT - AC Blood Gas Notified Time 03/03/2016 7:54:42 AM Blood Gas Notified Whom HG Blood Gas Respiration Rate 20.0 Blood Gas Specimen Source Blood arterial Blood Gas Temperature 37.0 Blood Gas Tidal Volume 550.0 FiO2 30.0 Oxyhemoglobin Percent 94.3 Total Hemoglobin 9.5 L Activated Partial Thromboplast Time 28.6 Medications Current Medications Ondansetron HCl (Zofran Inj) 4 mg Q6H PRN IV NAUSEA AND/OR VOMITING; Start 02/18/16 at 09:30 Acetaminophen (Tylenol Supp) 650 mg Q4H PRN [place] PAIN LEVEL 1-3 OR FEVER Last administered on 02/24/16at 14:32; Admin Dose 650 MG; Start 02/18/16 at 09:30 Morphine Sulfate (morphine) 2 mg Q4H PRN IV PAIN LEVEL 7-10 Last administered on 02/28/16at 09:42; Admin Dose 2 MG; Start 02/18/16 at 09:30 Bisacodyl (Dulcolax Supp) 10 mg DAILY PRN [place] CONSTIPATION; Start 02/18/16 at 09 :30 Pantoprazole (Protonix Iv) 40 mg DAILY@06 IV Last administered on 03/03/16at 05 :12; Admin Dose 40 MG; Start 02/19/16 at 06:00 Amlodipine Besylate (Norvasc) 5 mg BID PO Last administered on 03/03/16 09:03 ; Admin Dose 5 MG; Start 02/20/16 at 21:00 Hydralazine HCl (Apresoline) 10 mg Q6H PRN IV ELEVATED SYSTOLIC BP Last administered on 03/03/16at 09:09; Admin Dose 10 MG; Start 02/20/16 at 22:00 Minoxidil (Loniten) 5 mg BID PO Last administered on 03/03/16 09:03; Admin Dose 5 MG; Start 02/20/16 at 22:00 Metoprolol Tartrate 5 mg 5 mg Q4H PRN IV HR>55 Hold SBP<100 Last administered on 03/01/16at 01:33; Admin Dose 5 MG; Start 02/21/16 at 11:30 Propofol 100 ml @ 3.189 mls/ hr Q12H IV Last administered on 03/02/16at 08:30 ; Admin Dose 12.756 MLS/HR; Start 02/21/16 at 16:30 Fentanyl/Dextrose (D5W) 100 ml @ 0 mls/hr TITRATE IV Last administered on 03/02at 23:08; Admin Dose 10 MLS/HR; Start 02/21/16 at 16:30 IV Flush (NS 10 ml) 10 ml PRN PRN IV IV PROTOCOL; Start 02/21/16 at 18:30 Ferrous Sulfate (Feosol Liquid Cup) 300 mg BID GTB Last administered on at 09:03; Admin Dose 300 MG; Start 02/22/16 at 10:00 Lorazepam 1 mg 1 mg Q1H PRN IV ANXIETY Last administered on 03/02/16at 05:12; Admin Dose 1 MG; Start 02/23/16 at 11:30 Fluconazole/ Sodium Chloride (Diflucan 100 Mg/ NS (Pmx)) 50 ml @ 50 mls/hr Q24H IVPB Last administered on 03/02/16at 14:14; Admin Dose 50 MLS/HR; Start at 14:00 Miscellaneous Information 1 ea NOTE XX ; Start 02/23/16 at 23:15 Glucose (Glutose) 15 gm Q15M PRN PO DECREASED GLUCOSE; Start 02/23/16 at 23:15 Glucose (Glutose) 22.5 gm Q15M PRN PO DECREASED GLUCOSE; Start 02/23/16 at 23: 15 Dextrose (D50w Syringe) 25 ml Q15M PRN IV DECREASED GLUCOSE; Start 02/23/16 at 23:15 Dextrose (D50w Syringe) 50 ml Q15M PRN IV DECREASED GLUCOSE; Start 02/23/16 at 23:15 Glucagon (Glucagen) 1 mg Q15M PRN IM DECREASED GLUCOSE; Start 02/23/16 at 23:15 Glucose 15 gm 15 gm Q15M PRN BUCCAL DECREASED GLUCOSE; Start 02/23/16 at 23:15 Levetiracetam/ Sodium Chloride (Keppra Iv/NS) 110 ml @ 440 mls/hr BID IVPB Last administered on 03/03/16at 09:04; Admin Dose 440 MLS/HR; Start 02/24/16 at 01:00 Insulin Aspart (Novolog Insulin Pen) NOVOLOG *MILD* ALGORI... Q6 SC Last administered on 02/29/16at 13:55; Admin Dose 1 UNIT; Start 02/26/16 at 18:00 Furosemide 20 mg 20 mg DAILY IV Last administered on 03/03/16at 09:04; Admin Dose 20 MG; Start 02/27/16 at 09:00 Ceftriaxone Sodium (Rocephin) 50 ml @ 100 mls/hr Q24H IVPB Last administered on 03/02/16at 14:14; Admin Dose 100 MLS/HR; Start 02/27/16 at 13:00 Metronidazole (Flagyl) 500 mg Q8 PO Last administered on 03/03/16at 05:13; Admin Dose 500 MG; Start 02/27/16 at 14:00 Hydralazine HCl (Apresoline) 75 mg Q8 PO Last administered on 03/03/16at 05:14 ; Admin Dose 75 MG; Start 02/29/16 at 14:00 Metoprolol Tartrate (Lopressor) 100 mg Q8 PO Last administered on 03/03/16at 05 :13; Admin Dose 100 MG; Start 02/29/16 at 14:00 Metoprolol Tartrate (Lopressor) 25 mg Q8 PO Last administered on 03/03/16at 05: 13; Admin Dose 25 MG; Start 02/29/16 at 14:00 Acetaminophen 650 mg 650 mg Q6H PRN PO PAIN AND OR ELEVATED TEMP Last administered on 12/17/16at 20:52; Admin Dose 650 MG; Start 02/29/16 at 11:30 Midazolam HCl 50 mg/Dextrose 50 ml @ 1 mls/hr TITRATE IV ; Start 03/03/16 at 11 :30 Dexmedetomidine HCl/Sodium Chloride (Precedex/NS) 50 ml @ 5.31 mls/hr TITRATE IV ; Start 03/03/16 at 12:00 Assessment/Plan Chief Complaint/Hosp Course IMPRESSION 1. Hypertensive Emergency 2. Type B Aortic Dissection. No evidence on proximal dissection on recent CT neck and chest, 3. Encephalopathy, possibly secondary to antihypertensive medications. 4. Aspiration pneumonia with hypoxemic respiratory failure.Possible left effusion. New PE. 5. FARRUKH RECS: 1. Vent support unable to wean at present secondary to AMS, hypertension and upper airway edema. 2. Continue BP control 3. Sedation vacation as tolerated. CPAP weaning trial if patient is awake and alert 4. Replete lytes 5. Am CXR/ABG 6. Abx per ID 7. Anticoagulation per thoracic surgery 8. Discussed with vascular surgery not for intervention at this point 9. Trial of Precedex prognosis guarded Problems: ANAYA BREWSTER MD, [facility] Mar 03, 2016 12:30
[2016-03-03] MEDS: CEFTRIAXONE 1 GM/50 ML (PMX) 50 ML IVPB SCH (13:05)
[2016-03-03] MEDS: FENTAnyl 1,000 MCG in DEXTROSE 5% 80 ML IV SCH (13:08)
[2016-03-03] MEDS: DEXMEDETOMIDINE HCL 200 MCG in SOD CHLORIDE 0.9% 48 ML IV SCH ×3 (13:22→21:02)
[2016-03-03] MEDS: HEPARIN 25000 UNITS/250 ML 250 ML IV SCH (13:46)
[2016-03-03] MEDS: FLUCONAZOLE 100 MG/NS (PMX) 50 ML IVPB SCH (15:41)
[2016-03-03] MEDS: PROPOFOL 100 ML IV SCH (16:30)
--- NOTE | 2016-03-03 16:32 | CONS ---
Date/Time of Note Date/Time of Note DATE: 03/03/16 TIME: 16:31 Assessment/Plan Assessment/Plan Chief Complaint/Hosp Course ID PROGRESS NOTE 24H INTERVAL SUMMARY * Clinically status quo -- no new issues,Low grade temps range 99.0 -99.9 WBC down today -- slow downtrend * Orally intubated, non-communicative, chart reviewed PHYSICAL EXAMINATION: GENERAL: 45 yo overweight M, VSS, NAD, Vented HEENT: ETT-> Secure to Vent NECK: Supple, trachea midline. CHEST: Rise symmetrical. Scattered coarse BS HEART: NSR on tele ABDOMEN: Soft EXTREMITIES: Without cyanosis. Bilateral trace edema. ID ASSESSMENT: 1. Severe sepsis due to PNA * 02/19/16 BCx(+) Staph-CoNS 1/2 bottles on admission => consistent w/skin contaminant * Repeat BCx (-) 2. Acute respiratory failure. 3. Aspiration PNA => Sputum culture grew E. coli, Angelina albicans. 4. Congestive heart failure exacerbation. 5. New onset of seizures. 6. HTN urgency associated with Type B aortic dissection. 7. Acute renal failure. 8. Anemia. 9. Pulmonary emboli INVASIVES: Endotracheal tube, NG tube, Smalls, PICC line. CURRENT ABX: 1. Ceftriaxone. 2. Fluconazole. 3. Vancomycin. s/p Zosyn ID RECOMMENDATIONS: CONTINUE Current ABX, Continue supportive care, await clinical improvement . Problems: Consultation Date/Type/Reason Admit Date/Time Feb 18, 2016 at 09:14 Type of Consultation: ID Referring Provider: ANAYA BREWSTER MD, [facility] Exam/Review of Systems Vital Signs Vitals Vital Signs Date Time Temp Pulse Resp B/P Pulse Ox O2 Delivery O2 Flow Rate FiO2 03/03/16 16:00 30 03/03/16 15:30 80 20 112/60 99 Mechanical Ventilator 03/03/16 12:00 98.5 Intake and Output 03/02/16 03/02/16 03/03/16 15:00 23:00 07:00 Intake Total 912.5 ml 693 ml 698 ml Output Total 2675 ml 970 ml 750 ml Balance -1762.5 ml -277 ml -52 ml Results Result Diagram: 03/03/16 1155 03/03/16 0400 Results 24 hrs Laboratory Tests Test 03/02/16 17:34 03/03/16 00:01 03/03/16 04:00 03/03/16 05:11 Bedside Glucose 126 140 138 Anion Gap 13 Basophils # 0.1 Basophils % 0.3 Blood Morphology Comment Blood Urea Nitrogen 36 H Calcium Level 8.8 Carbon Dioxide Level 28 Chloride Level 109 Creatinine 1.58 H Eosinophils # 0.7 H Eosinophils % 4.4 Glucose Level 198 Hematocrit 27.0 L Hemoglobin 8.8 L Lymphocytes # 1.0 Lymphocytes % 6.1 L Magnesium Level 2.4 Mean Corpuscular Hemoglobin 26.4 L Mean Corpuscular Hemoglobin Concent 32.7 Mean Corpuscular Volume 80.5 L Mean Platelet Volume 8.0 Monocytes # 1.0 H Monocytes % 6.0 Neutrophils # 13.7 H Neutrophils % 83.2 H Nucleated Red Blood Cells # 0.0 Nucleated Red Blood Cells % 0.0 Phosphorus Level 4.5 Platelet Count 427 Potassium Level 4.0 Red Blood Count 3.35 L Red Cell Distribution Width 17.4 H Sodium Level 146 H White Blood Count 16.5 H Test 03/03/16 07:00 03/03/16 11:55 03/03/16 13:13 Arterial Blood HCO3 27.1 H Arterial Blood Base Excess 3.7 H Arterial Blood Oxygen Saturation 94.8 L Jovanny Test ACCEPTAB Arterial Blood Gas Puncture Site Right Radial Arterial Blood Carboxyhemoglobin 0.3 Arterial Blood Date Drawn 03/03/2016 7:30:32 AM Arterial Blood Methemoglobin 0.2 Arterial Blood pCO2 (Temp correct) 36.3 Arterial Blood pH (Temp corrected) 7.491 H Arterial Blood pO2 (Temp corrected) 73.0 L Blood Gas A-a O2 Differential 98.3 H Blood Gas Actual Respiration Rate 20 Blood Gas Inspiratory Pressure 39.0 Blood Gas Low PEEP Setting 10.0 Blood Gas Modality VENT - AC Blood Gas Notified Time 03/03/2016 7:54:42 AM Blood Gas Notified Whom HG Blood Gas Respiration Rate 20.0 Blood Gas Specimen Source Blood arterial Blood Gas Temperature 37.0 Blood Gas Tidal Volume 550.0 FiO2 30.0 Oxyhemoglobin Percent 94.3 Total Hemoglobin 9.5 L Activated Partial Thromboplast Time 28.6 Basophils # 0.1 Basophils % 0.9 Blood Morphology Comment Eosinophils # 0.5 Eosinophils % 3.4 Hematocrit 27.3 L Hemoglobin 8.9 L Lymphocytes # 1.3 Lymphocytes % 8.9 L Mean Corpuscular Hemoglobin 26.3 L Mean Corpuscular Hemoglobin Concent 32.7 Mean Corpuscular Volume 80.3 L Mean Platelet Volume 7.7 Monocytes # 0.9 Monocytes % 5.8 Neutrophils # 12.3 H Neutrophils % 81.0 H Nucleated Red Blood Cells # 0.0 Nucleated Red Blood Cells % 0.0 Platelet Count 420 Red Blood Count 3.39 L Red Cell Distribution Width 17.1 H White Blood Count 15.2 H Bedside Glucose 140 Medications Medications Current Medications Ondansetron HCl (Zofran Inj) 4 mg Q6H PRN IV NAUSEA AND/OR VOMITING; Start 02/18/16 at 09:30 Acetaminophen (Tylenol Supp) 650 mg Q4H PRN [place] PAIN LEVEL 1-3 OR FEVER Last administered on 02/24/16at 14:32; Admin Dose 650 MG; Start 02/18/16 at 09:30 Morphine Sulfate (morphine) 2 mg Q4H PRN IV PAIN LEVEL 7-10 Last administered on 02/28/16at 09:42; Admin Dose 2 MG; Start 02/18/16 at 09:30 Bisacodyl (Dulcolax Supp) 10 mg DAILY PRN [place] CONSTIPATION; Start 02/18/16 at 09 :30 Pantoprazole (Protonix Iv) 40 mg DAILY@06 IV Last administered on 03/03/16at 05 :12; Admin Dose 40 MG; Start 02/19/16 at 06:00 Amlodipine Besylate (Norvasc) 5 mg BID PO Last administered on 03/03/16at 09:03 ; Admin Dose 5 MG; Start 02/20/16 at 21:00 Hydralazine HCl (Apresoline) 10 mg Q6H PRN IV ELEVATED SYSTOLIC BP Last administered on 03/03/16at 09:09; Admin Dose 10 MG; Start 02/20/16 at 22:00 Minoxidil (Loniten) 5 mg BID PO Last administered on 03/03/16 09:03; Admin Dose 5 MG; Start 02/20/16 at 22:00 Metoprolol Tartrate 5 mg 5 mg Q4H PRN IV HR>55 Hold SBP<100 Last administered on 03/01/16at 01:33; Admin Dose 5 MG; Start 02/21/16 at 11:30 Propofol 100 ml @ 3.189 mls/ hr Q12H IV Last administered on 03/02/16at 08:30 ; Admin Dose 12.756 MLS/HR; Start 02/21/16 at 16:30 Fentanyl/Dextrose (D5W) 100 ml @ 0 mls/hr TITRATE IV Last administered on 03/03at 13:08; Admin Dose 7 MLS/HR; Start 02/21/16 at 16:30 IV Flush (NS 10 ml) 10 ml PRN PRN IV IV PROTOCOL; Start 02/21/16 at 18:30 Ferrous Sulfate (Feosol Liquid Cup) 300 mg BID GTB Last administered on at 09:03; Admin Dose 300 MG; Start 02/22/16 at 10:00 Lorazepam 1 mg 1 mg Q1H PRN IV ANXIETY Last administered on 03/02/16at 05:12; Admin Dose 1 MG; Start 02/23/16 at 11:30 Fluconazole/ Sodium Chloride (Diflucan 100 Mg/ NS (Pmx)) 50 ml @ 50 mls/hr Q24H IVPB Last administered on 03/03/16at 15:41; Admin Dose 50 MLS/HR; Start at 14:00 Miscellaneous Information 1 ea NOTE XX ; Start 02/23/16 at 23:15 Glucose (Glutose) 15 gm Q15M PRN PO DECREASED GLUCOSE; Start 02/23/16 at 23:15 Glucose (Glutose) 22.5 gm Q15M PRN PO DECREASED GLUCOSE; Start 02/23/16 at 23: 15 Dextrose (D50w Syringe) 25 ml Q15M PRN IV DECREASED GLUCOSE; Start 02/23/16 at 23:15 Dextrose (D50w Syringe) 50 ml Q15M PRN IV DECREASED GLUCOSE; Start 02/23/16 at 23:15 Glucagon (Glucagen) 1 mg Q15M PRN IM DECREASED GLUCOSE; Start 02/23/16 at 23:15 Glucose 15 gm 15 gm Q15M PRN BUCCAL DECREASED GLUCOSE; Start 02/23/16 at 23:15 Levetiracetam/ Sodium Chloride (Keppra Iv/NS) 110 ml @ 440 mls/hr BID IVPB Last administered on 03/03/16at 09:04; Admin Dose 440 MLS/HR; Start 02/24/16 at 01:00 Insulin Aspart (Novolog Insulin Pen) NOVOLOG *MILD* ALGORI... Q6 SC Last administered on 02/29/16 13:55; Admin Dose 1 UNIT; Start 02/26/16 at 18:00 Furosemide 20 mg 20 mg DAILY IV Last administered on 03/03/16 09:04; Admin Dose 20 MG; Start 02/27/16 at 09:00 Ceftriaxone Sodium (Rocephin) 50 ml @ 100 mls/hr Q24H IVPB Last administered on 03/03/16 13:05; Admin Dose 100 MLS/HR; Start 02/27/16 at 13:00 Metronidazole (Flagyl) 500 mg Q8 PO Last administered on 03/03/16 13:53; Admin Dose 500 MG; Start 02/27/16 at 14:00 Hydralazine HCl (Apresoline) 75 mg Q8 PO Last administered on 03/03/16 13:53 ; Admin Dose 75 MG; Start 02/29/16 at 14:00 Metoprolol Tartrate (Lopressor) 100 mg Q8 PO Last administered on 03/03/16 13 :54; Admin Dose 100 MG; Start 02/29/16 at 14:00 Metoprolol Tartrate (Lopressor) 25 mg Q8 PO Last administered on 03/03/16 13: 53; Admin Dose 25 MG; Start 02/29/16 at 14:00 Acetaminophen 650 mg 650 mg Q6H PRN PO PAIN AND OR ELEVATED TEMP Last administered on 03/02/16at 20:52; Admin Dose 650 MG; Start 02/29/16 at 11:30 Midazolam HCl 50 mg/Dextrose 50 ml @ 1 mls/hr TITRATE IV ; Start 03/03/16 at 11 :30 Dexmedetomidine HCl/Sodium Chloride (Precedex/NS) 50 ml @ 5.3 mls/hr TITRATE IV Last administered on 03/03/16 13:22; Admin Dose 5.3 MLS/HR; Start at 12:30 LD YBARRA NP Mar 03, 2016 16:32
--- NOTE | 2016-03-03 16:52 | CONS ---
Date/Time of Note Date/Time of Note DATE: 03/03/16 TIME: 16:50 Assessment/Plan Assessment/Plan Chief Complaint/Hosp Course Assessment/Plan 1. Acute kidney injury, likely secondary to acute tubular necrosis from contrast-induced nephropathy and also secondary to ischemic acute tubular necrosis from aortic dissection. 2. A type B [place] aortic dissection. 3. Hypertension 4. acute resp failiure intubated on ventilator 5 EDEMA 6 hypernatremia plan ck lytes LASIX PRN CK LABS Problems: Consultation Date/Type/Reason Admit Date/Time Feb 18, 2016 at 09:14 Initial Consult Date 02/26/16 Type of Consultation: RENAL Referring Provider: ANAYA BREWSTER MD, [facility] 24 HR Interval Summary Constitutional: other (ON VENT) Exam/Review of Systems Vital Signs Vitals Vital Signs Date Time Temp Pulse Resp B/P Pulse Ox O2 Delivery O2 Flow Rate FiO2 03/03/16 16:00 78 03/03/16 16:00 30 03/03/16 15:30 20 112/60 99 Mechanical Ventilator 03/03/16 12:00 98.5 Intake and Output 03/02/16 03/02/16 03/03/16 15:00 23:00 07:00 Intake Total 912.5 ml 693 ml 748 ml Output Total 2675 ml 970 ml 900 ml Balance -1762.5 ml -277 ml -152 ml Exam Respiratory: clear to auscultation, diminished breath sounds Cardiovascular: regular rate and rhythm Gastrointestinal: bowel sounds (+), soft Results Result Diagram: 03/03/16 1155 03/03/16 0400 Results 24 hrs Laboratory Tests Test 03/02/16 17:34 03/03/16 00:01 03/03/16 04:00 03/03/16 05:11 Bedside Glucose 126 140 138 Anion Gap 13 Basophils # 0.1 Basophils % 0.3 Blood Morphology Comment Blood Urea Nitrogen 36 H Calcium Level 8.8 Carbon Dioxide Level 28 Chloride Level 109 Creatinine 1.58 H Eosinophils # 0.7 H Eosinophils % 4.4 Glucose Level 198 Hematocrit 27.0 L Hemoglobin 8.8 L Lymphocytes # 1.0 Lymphocytes % 6.1 L Magnesium Level 2.4 Mean Corpuscular Hemoglobin 26.4 L Mean Corpuscular Hemoglobin Concent 32.7 Mean Corpuscular Volume 80.5 L Mean Platelet Volume 8.0 Monocytes # 1.0 H Monocytes % 6.0 Neutrophils # 13.7 H Neutrophils % 83.2 H Nucleated Red Blood Cells # 0.0 Nucleated Red Blood Cells % 0.0 Phosphorus Level 4.5 Platelet Count 427 Potassium Level 4.0 Red Blood Count 3.35 L Red Cell Distribution Width 17.4 H Sodium Level 146 H White Blood Count 16.5 H Test 03/03/16 07:00 03/03/16 11:55 03/03/16 13:13 Arterial Blood HCO3 27.1 H Arterial Blood Base Excess 3.7 H Arterial Blood Oxygen Saturation 94.8 L Jovanny Test ACCEPTAB Arterial Blood Gas Puncture Site Right Radial Arterial Blood Carboxyhemoglobin 0.3 Arterial Blood Date Drawn 03/03/2016 7:30:32 AM Arterial Blood Methemoglobin 0.2 Arterial Blood pCO2 (Temp correct) 36.3 Arterial Blood pH (Temp corrected) 7.491 H Arterial Blood pO2 (Temp corrected) 73.0 L Blood Gas A-a O2 Differential 98.3 H Blood Gas Actual Respiration Rate 20 Blood Gas Inspiratory Pressure 39.0 Blood Gas Low PEEP Setting 10.0 Blood Gas Modality VENT - AC Blood Gas Notified Time 03/03/2016 7:54:42 AM Blood Gas Notified Whom HG Blood Gas Respiration Rate 20.0 Blood Gas Specimen Source Blood arterial Blood Gas Temperature 37.0 Blood Gas Tidal Volume 550.0 FiO2 30.0 Oxyhemoglobin Percent 94.3 Total Hemoglobin 9.5 L Activated Partial Thromboplast Time 28.6 Basophils # 0.1 Basophils % 0.9 Blood Morphology Comment Eosinophils # 0.5 Eosinophils % 3.4 Hematocrit 27.3 L Hemoglobin 8.9 L Lymphocytes # 1.3 Lymphocytes % 8.9 L Mean Corpuscular Hemoglobin 26.3 L Mean Corpuscular Hemoglobin Concent 32.7 Mean Corpuscular Volume 80.3 L Mean Platelet Volume 7.7 Monocytes # 0.9 Monocytes % 5.8 Neutrophils # 12.3 H Neutrophils % 81.0 H Nucleated Red Blood Cells # 0.0 Nucleated Red Blood Cells % 0.0 Platelet Count 420 Red Blood Count 3.39 L Red Cell Distribution Width 17.1 H White Blood Count 15.2 H Bedside Glucose 140 Medications Medications Current Medications Ondansetron HCl (Zofran Inj) 4 mg Q6H PRN IV NAUSEA AND/OR VOMITING; Start 02/18/16 at 09:30 Acetaminophen (Tylenol Supp) 650 mg Q4H PRN [place] PAIN LEVEL 1-3 OR FEVER Last administered on 02/24/16 14:32; Admin Dose 650 MG; Start 02/18/16 at 09:30 Morphine Sulfate (morphine) 2 mg Q4H PRN IV PAIN LEVEL 7-10 Last administered on 02/28/16at 09:42; Admin Dose 2 MG; Start 02/18/16 at 09:30 Bisacodyl (Dulcolax Supp) 10 mg DAILY PRN [place] CONSTIPATION; Start 02/18/16 at 09 :30 Pantoprazole (Protonix Iv) 40 mg DAILY@06 IV Last administered on 03/03/16 05 :12; Admin Dose 40 MG; Start 02/19/16 at 06:00 Amlodipine Besylate (Norvasc) 5 mg BID PO Last administered on 03/03/16 09:03 ; Admin Dose 5 MG; Start 02/20/16 at 21:00 Hydralazine HCl (Apresoline) 10 mg Q6H PRN IV ELEVATED SYSTOLIC BP Last administered on 03/03/16 09:09; Admin Dose 10 MG; Start 02/20/16 at 22:00 Minoxidil (Loniten) 5 mg BID PO Last administered on 03/03/16 09:03; Admin Dose 5 MG; Start 02/20/16 at 22:00 Metoprolol Tartrate 5 mg 5 mg Q4H PRN IV HR>55 Hold SBP<100 Last administered on 03/01/16 01:33; Admin Dose 5 MG; Start 02/21/16 at 11:30 Propofol 100 ml @ 3.189 mls/ hr Q12H IV Last administered on 03/02/16 08:30 ; Admin Dose 12.756 MLS/HR; Start 02/21/16 at 16:30 Fentanyl/Dextrose (D5W) 100 ml @ 0 mls/hr TITRATE IV Last administered on 03/03 13:08; Admin Dose 7 MLS/HR; Start 02/21/16 at 16:30 IV Flush (NS 10 ml) 10 ml PRN PRN IV IV PROTOCOL; Start 02/21/16 at 18:30 Ferrous Sulfate (Feosol Liquid Cup) 300 mg BID GTB Last administered on 12/18/ 16at 09:03; Admin Dose 300 MG; Start 02/22/16 at 10:00 Lorazepam 1 mg 1 mg Q1H PRN IV ANXIETY Last administered on 03/02/16at 05:12; Admin Dose 1 MG; Start 02/23/16 at 11:30 Fluconazole/ Sodium Chloride (Diflucan 100 Mg/ NS (Pmx)) 50 ml @ 50 mls/hr Q24H IVPB Last administered on 03/03/16at 15:41; Admin Dose 50 MLS/HR; Start at 14:00 Miscellaneous Information 1 ea NOTE XX ; Start 02/23/16 at 23:15 Glucose (Glutose) 15 gm Q15M PRN PO DECREASED GLUCOSE; Start 02/23/16 at 23:15 Glucose (Glutose) 22.5 gm Q15M PRN PO DECREASED GLUCOSE; Start 02/23/16 at 23: 15 Dextrose (D50w Syringe) 25 ml Q15M PRN IV DECREASED GLUCOSE; Start 02/23/16 at 23:15 Dextrose (D50w Syringe) 50 ml Q15M PRN IV DECREASED GLUCOSE; Start 02/23/16 at 23:15 Glucagon (Glucagen) 1 mg Q15M PRN IM DECREASED GLUCOSE; Start 02/23/16 at 23:15 Glucose 15 gm 15 gm Q15M PRN BUCCAL DECREASED GLUCOSE; Start 02/23/16 at 23:15 Levetiracetam/ Sodium Chloride (Keppra Iv/NS) 110 ml @ 440 mls/hr BID IVPB Last administered on 03/03/16at 09:04; Admin Dose 440 MLS/HR; Start 02/24/16 at 01:00 Insulin Aspart (Novolog Insulin Pen) NOVOLOG *MILD* ALGORI... Q6 SC Last administered on 02/29/16at 13:55; Admin Dose 1 UNIT; Start 02/26/16 at 18:00 Furosemide 20 mg 20 mg DAILY IV Last administered on 03/03/16at 09:04; Admin Dose 20 MG; Start 02/27/16 at 09:00 Ceftriaxone Sodium (Rocephin) 50 ml @ 100 mls/hr Q24H IVPB Last administered on 03/03/16at 13:05; Admin Dose 100 MLS/HR; Start 02/27/16 at 13:00 Metronidazole (Flagyl) 500 mg Q8 PO Last administered on 03/03/16 13:53; Admin Dose 500 MG; Start 02/27/16 at 14:00 Hydralazine HCl (Apresoline) 75 mg Q8 PO Last administered on 03/03/16at 13:53 ; Admin Dose 75 MG; Start 02/29/16 at 14:00 Metoprolol Tartrate (Lopressor) 100 mg Q8 PO Last administered on 03/03/16at 13 :54; Admin Dose 100 MG; Start 02/29/16 at 14:00 Metoprolol Tartrate (Lopressor) 25 mg Q8 PO Last administered on 03/03/16at 13: 53; Admin Dose 25 MG; Start 02/29/16 at 14:00 Acetaminophen 650 mg 650 mg Q6H PRN PO PAIN AND OR ELEVATED TEMP Last administered on 03/02/16at 20:52; Admin Dose 650 MG; Start 02/29/16 at 11:30 Midazolam HCl 50 mg/Dextrose 50 ml @ 1 mls/hr TITRATE IV ; Start 03/03/16 at 11 :30 Dexmedetomidine HCl/Sodium Chloride (Precedex/NS) 50 ml @ 5.3 mls/hr TITRATE IV Last administered on 03/03/16 13:22; Admin Dose 5.3 MLS/HR; Start at 12:30 SASHA OWEN MD Mar 03, 2016 16:51
[2016-03-04] VITALS (56 sets, daily range): BP systolic 88–258; BP diastolic 49–127; PULSE 65–143; RESP 17–32
[2016-03-04] MEDS: DEXMEDETOMIDINE HCL 200 MCG in SOD CHLORIDE 0.9% 48 ML IV SCH ×7 (00:23→23:28)
[2016-03-04] MEDS: HEPARIN 25000 UNITS/250 ML 250 ML IV SCH ×4 (00:25→19:51)
[2016-03-04] MEDS: IPRATROPIUM (HFA) 12.9 GM INHALER INH SCH ×4 (01:00→19:29)
[2016-03-04] MEDS: ALBUTEROL HFA 8 GM INHALER INH SCH ×4 (01:01→19:28)
[2016-03-04] MEDS: FENTAnyl 1,000 MCG in DEXTROSE 5% 80 ML IV SCH ×2 (03:46→13:31)
[2016-03-04] MEDS: LORAZEPAM 2 MG INJ IV PRN ×5 (04:15→20:11)
[2016-03-04 05:21] LABS: PHOSPHORUS 6.4 mg/dl (2.5-4.9)
[2016-03-04 05:22] LABS: MAGNESIUM 2.3 mg/dl (1.7-2.5)
[2016-03-04 05:25] LABS: CREATININE 1.67 mg/dl (0.61-1.24)
[2016-03-04 05:26] LABS: CALCIUM 8.7 mg/dl (8.4-10.2)
[2016-03-04] MEDS: metroNIDAZOLE 500 MG TAB PO SCH ×3 (05:29→21:39)
[2016-03-04] MEDS: METOPROLOL 100 MG TAB PO SCH ×4 (05:30→21:39)
[2016-03-04] MEDS: METOPROLOL 25 MG TAB PO SCH ×4 (05:31→21:40)
[2016-03-04] MEDS: PANTOPRAZOLE 40 MG INJ IV SCH (05:32)
[2016-03-04] MEDS: METOCLOPRAMIDE 10 MG INJ IV SCH ×4 (05:32→23:37)
[2016-03-04] MEDS: INSULIN ASPART [NOVOLOG] 3 ML PEN SC SCH ×4 (05:34→23:38)
--- NOTE | 2016-03-04 06:56 | RADRPT ---
PROCEDURE: XR, Chest. CLINICAL INDICATION: Follow up for respiratory distress. TECHNIQUE: AP chest. COMPARISON: Chest, 03/03/2016. FINDINGS: The heart remains moderately enlarged, unchanged. There is atelectasis left lower lobe, unchanged. There is no acute infiltrate in the lungs. No pleural lesion. The ET tube, NG tube and right PICC line remain in good position. IMPRESSION: 1. Moderate cardiomegaly, unchanged. 2. Atelectasis of the left lower lobe, unchanged. RPTAT: GG .Blas Kline MD, MD Date Time Electronically viewed and signed by .Blas Kline MD, MD on 03/04/2016 06:55 .Y/
[2016-03-04] MEDS: PROPOFOL 100 ML IV SCH ×2 (07:50→15:40)
[2016-03-04 08:35] LABS: AADO2 Arterial 84.7 mmHg (7.0-24.0); Allen Test ACCEPTAB; Arterial Base Excess 1.5 mmol/L (-3.0-3); Arterial COHb 0.3 % (0.0-3.0); Arterial Fraction of Oxyhgb 95.7 % (93.0-99.0); Arterial HCO3 25.1 mmol/L (22.0-26.0); Arterial MetHb 0.3 % (0.0-1.5); Arterial Total Hemglobin 9.2 g/dl (12.0-18.0); MODE VENT - AC
[2016-03-04 08:38] LABS: BASOPHILS % 0.2 % (0.0-2.0); EOSINOPHILS # 0.3 10^3/ul (0.0-0.5); EOSINOPHILS % 1.7 % (0.0-7.0); HEMOGLOBIN 8.8 g/dl (14.0-18.0); LYMPHOCYTES # 1.5 10^3/ul (0.8-2.9); LYMPHOCYTES % 8.8 % (15.0-51.0); MEAN CORPUSCULAR HEMOGLOBIN 26.1 pg (29.0-33.0); MEAN CORPUSCULAR HGB CONC 32.5 g/dl (32.0-37.0); MEAN CORPUSCULAR VOLUME 80.2 fl (82.0-101.0); MEAN PLATELET VOLUME 9.3 fl (7.4-10.4); MONOCYTE # 1.3 10^3/ul (0.3-0.9); MONOCYTES % 7.8 % (0.0-11.0); NEUTROPHIL # 14.1 10^3/ul (1.6-7.5); NEUTROPHILS % 81.5 % (39.0-77.0); PLATELET COUNT 423 10^3/UL (140-440); RED BLOOD COUNT 3.36 10^6/ul (4.70-6.10); RED CELL DISTRIBUTION WIDTH 17.8 % (11.5-14.5); UNCORRECTED WBC 17.3 10^3/ul (4.8-10.8); WHITE BLOOD COUNT 17.3 10^3/ul (4.8-10.8)
[2016-03-04 08:40] LABS: CONDITION 1; LH ANALYZER COMMENTS 1
[2016-03-04] MEDS: FERROUS SULFATE 60 MG/ML 5ML CUP GTB SCH ×2 (09:01→20:10)
[2016-03-04] MEDS: LEVETIRACETAM IV 1,000 MG in SOD CHLORIDE 0.9% 100 ML IVPB SCH ×2 (09:02→20:10)
[2016-03-04] MEDS: FUROSEMIDE 20 MG INJ IV SCH (09:02)
[2016-03-04] MEDS: AMLODIPINE 5 MG TAB PO SCH ×2 (10:01→20:17)
[2016-03-04] MEDS: MINOXIDIL 2.5 MG TAB PO SCH ×2 (10:01→20:17)
--- NOTE | 2016-03-04 10:21 | CONS ---
Date/Time of Note Date/Time of Note DATE: 03/04/16 TIME: 10:18 Consult Date/Type/Reason Admit Date/Time Feb 18, 2016 at 09:14 Type of Consultation: Pulmonary Ordering Provider: ANAYA BREWSTER MD, [facility] Subjective Patient has significant agitation this morning off sedation Required additional sedation and now he is more somnolent on Precedex Objective Vital Signs Date Time Temp Pulse Resp B/P Pulse Ox O2 Delivery O2 Flow Rate FiO2 03/04/16 09:15 65 20 109/57 98 Mechanical Ventilator 03/04/16 05:40 30 03/04/16 04:00 99.0 Intake and Output 03/03/16 03/03/16 03/04/16 15:00 23:00 07:00 Intake Total 1033.90 ml 640.70 ml 881.2 ml Output Total 1125 ml 365 ml 450 ml Balance -91.10 ml 275.70 ml 431.2 ml PHYSICAL EXAMINATION GENERAL: A well-nourished well-developed gentleman intubated on mechanical ventilation. VITAL SIGNS: see below. HEENT: Pupils equal, round, and reactive to light. enlarged swollen tongue, CARDIAC: S1, S2, tachycardia. CHEST: Diminished air entry bilaterally. ABDOMEN: Mildly distended. No bowel sounds. EXTREMITIES: No cyanosis, clubbing edema +1 upper extremities NEUROLOGIC: generalized weakness. Results/Medications Result Diagram: 03/04/16 0400 03/04/16 0400 Results 24 hrs Laboratory Tests Test 03/03/16 11:55 03/03/16 13:13 03/03/16 17:59 03/03/16 19:32 Activated Partial Thromboplast Time 28.6 45.9 H Basophils # 0.1 Basophils % 0.9 Blood Morphology Comment Eosinophils # 0.5 Eosinophils % 3.4 Hematocrit 27.3 L Hemoglobin 8.9 L Lymphocytes # 1.3 Lymphocytes % 8.9 L Mean Corpuscular Hemoglobin 26.3 L Mean Corpuscular Hemoglobin Concent 32.7 Mean Corpuscular Volume 80.3 L Mean Platelet Volume 7.7 Monocytes # 0.9 Monocytes % 5.8 Neutrophils # 12.3 H Neutrophils % 81.0 H Nucleated Red Blood Cells # 0.0 Nucleated Red Blood Cells % 0.0 Platelet Count 420 Red Blood Count 3.39 L Red Cell Distribution Width 17.1 H White Blood Count 15.2 H Bedside Glucose 140 160 Test 03/03/16 23:49 03/04/16 04:00 03/04/16 05:27 03/04/16 07:00 Bedside Glucose 172 154 Activated Partial Thromboplast Time > 180.0 *H Anion Gap 17 H Basophils # 0.0 Basophils % 0.2 Blood Morphology Comment Blood Urea Nitrogen 38 H Calcium Level 8.7 Carbon Dioxide Level 25 Chloride Level 106 Creatinine 1.67 H Eosinophils # 0.3 Eosinophils % 1.7 Glucose Level 279 H Hematocrit 27.0 L Hemoglobin 8.8 L Lymphocytes # 1.5 Lymphocytes % 8.8 L Magnesium Level 2.3 Mean Corpuscular Hemoglobin 26.1 L Mean Corpuscular Hemoglobin Concent 32.5 Mean Corpuscular Volume 80.2 L Mean Platelet Volume 9.3 # Monocytes # 1.3 H Monocytes % 7.8 Neutrophils # 14.1 H Neutrophils % 81.5 H Nucleated Red Blood Cells # 0.0 Nucleated Red Blood Cells % 0.0 Phosphorus Level 6.4 H Platelet Count 423 Potassium Level 4.0 Red Blood Count 3.36 L Red Cell Distribution Width 17.8 H Sodium Level 144 White Blood Count 17.3 H Arterial Blood HCO3 25.1 Arterial Blood Base Excess 1.5 Arterial Blood Oxygen Saturation 96.3 Jovanny Test ACCEPTAB Arterial Blood Gas Puncture Site Right Radial Arterial Blood Carboxyhemoglobin 0.3 Arterial Blood Date Drawn 03/04/2016 8:10:11 AM Arterial Blood Methemoglobin 0.3 Arterial Blood pCO2 (Temp correct) 35.5 Arterial Blood pH (Temp corrected) 7.468 H Arterial Blood pO2 (Temp corrected) 87.5 Blood Gas A-a O2 Differential 84.7 H Blood Gas Actual Respiration Rate 20 Blood Gas Low PEEP Setting 10.0 Blood Gas Modality VENT - AC Blood Gas Notified Time 03/04/2016 8:35:02 AM Blood Gas Notified Whom JLD Blood Gas Respiration Rate 20.0 Blood Gas Specimen Source Blood arterial Blood Gas Temperature 37.0 Blood Gas Tidal Volume 550.0 FiO2 30.0 Oxyhemoglobin Percent 95.7 Total Hemoglobin 9.2 L Medications Current Medications Ondansetron HCl (Zofran Inj) 4 mg Q6H PRN IV NAUSEA AND/OR VOMITING; Start 02/18/16 at 09:30 Acetaminophen (Tylenol Supp) 650 mg Q4H PRN [place] PAIN LEVEL 1-3 OR FEVER Last administered on 02/24/16 14:32; Admin Dose 650 MG; Start 02/18/16 at 09:30 Morphine Sulfate (morphine) 2 mg Q4H PRN IV PAIN LEVEL 7-10 Last administered on 02/28/16 09:42; Admin Dose 2 MG; Start 02/18/16 at 09:30 Bisacodyl (Dulcolax Supp) 10 mg DAILY PRN [place] CONSTIPATION; Start 02/18/16 at 09 :30 Pantoprazole (Protonix Iv) 40 mg DAILY@06 IV Last administered on 03/04/16 05 :32; Admin Dose 40 MG; Start 02/19/16 at 06:00 Amlodipine Besylate (Norvasc) 5 mg BID PO Last administered on 03/04/16 10:01 ; Admin Dose 5 MG; Start 02/20/16 at 21:00 Hydralazine HCl (Apresoline) 10 mg Q6H PRN IV ELEVATED SYSTOLIC BP Last administered on 03/03/16 09:09; Admin Dose 10 MG; Start 02/20/16 at 22:00 Minoxidil (Loniten) 5 mg BID PO Last administered on 03/04/16 10:01; Admin Dose 5 MG; Start 02/20/16 at 22:00 Metoprolol Tartrate 5 mg 5 mg Q4H PRN IV HR>55 Hold SBP<100 Last administered on 03/01/16 01:33; Admin Dose 5 MG; Start 02/21/16 at 11:30 Propofol 100 ml @ 3.189 mls/ hr Q12H IV Last administered on 03/02/16at 08:30 ; Admin Dose 12.756 MLS/HR; Start 02/21/16 at 16:30 Fentanyl/Dextrose (D5W) 100 ml @ 0 mls/hr TITRATE IV Last administered on 03/04 03:46; Admin Dose 7 MLS/HR; Start 02/21/16 at 16:30 IV Flush (NS 10 ml) 10 ml PRN PRN IV IV PROTOCOL; Start 02/21/16 at 18:30 Ferrous Sulfate (Feosol Liquid Cup) 300 mg BID GTB Last administered on 09:01; Admin Dose 300 MG; Start 12/8/16 at 10:00 Lorazepam 1 mg 1 mg Q1H PRN IV ANXIETY Last administered on 03/04/16at 07:51; Admin Dose 1 MG; Start 02/23/16 at 11:30 Fluconazole/ Sodium Chloride (Diflucan 100 Mg/ NS (Pmx)) 50 ml @ 50 mls/hr Q24H IVPB Last administered on 03/03/16at 15:41; Admin Dose 50 MLS/HR; Start at 14:00 Miscellaneous Information 1 ea NOTE XX ; Start 02/23/16 at 23:15 Glucose (Glutose) 15 gm Q15M PRN PO DECREASED GLUCOSE; Start 02/23/16 at 23:15 Glucose (Glutose) 22.5 gm Q15M PRN PO DECREASED GLUCOSE; Start 02/23/16 at 23: 15 Dextrose (D50w Syringe) 25 ml Q15M PRN IV DECREASED GLUCOSE; Start 02/23/16 at 23:15 Dextrose (D50w Syringe) 50 ml Q15M PRN IV DECREASED GLUCOSE; Start 02/23/16 at 23:15 Glucagon (Glucagen) 1 mg Q15M PRN IM DECREASED GLUCOSE; Start 02/23/16 at 23:15 Glucose 15 gm 15 gm Q15M PRN BUCCAL DECREASED GLUCOSE; Start 02/23/16 at 23:15 Levetiracetam/ Sodium Chloride (Keppra Iv/NS) 110 ml @ 440 mls/hr BID IVPB Last administered on 03/04/16at 09:02; Admin Dose 440 MLS/HR; Start 02/24/16 at 01:00 Insulin Aspart (Novolog Insulin Pen) NOVOLOG *MILD* ALGORI... Q6 SC Last administered on 03/04/16at 05:34; Admin Dose 1 UNIT; Start 02/26/16 at 18:00 Furosemide 20 mg 20 mg DAILY IV Last administered on 03/04/16at 09:02; Admin Dose 20 MG; Start 02/27/16 at 09:00 Ceftriaxone Sodium (Rocephin) 50 ml @ 100 mls/hr Q24H IVPB Last administered on 03/03/16at 13:05; Admin Dose 100 MLS/HR; Start 02/27/16 at 13:00 Metronidazole (Flagyl) 500 mg Q8 PO Last administered on 03/04/16at 05:29; Admin Dose 500 MG; Start 02/27/16 at 14:00 Hydralazine HCl (Apresoline) 75 mg Q8 PO Last administered on 03/04/16at 05:32 ; Admin Dose 75 MG; Start 02/29/16 at 14:00 Metoprolol Tartrate (Lopressor) 100 mg Q8 PO Last administered on 03/04/16at 05 :30; Admin Dose 100 MG; Start 02/29/16 at 14:00 Metoprolol Tartrate (Lopressor) 25 mg Q8 PO Last administered on 03/04/16at 05: 31; Admin Dose 25 MG; Start 02/29/16 at 14:00 Acetaminophen 650 mg 650 mg Q6H PRN PO PAIN AND OR ELEVATED TEMP Last administered on 03/02/16at 20:52; Admin Dose 650 MG; Start 02/29/16 at 11:30 Midazolam HCl 50 mg/Dextrose 50 ml @ 1 mls/hr TITRATE IV ; Start 03/03/16 at 11 :30 Dexmedetomidine HCl/Sodium Chloride (Precedex/NS) 50 ml @ 5.3 mls/hr TITRATE IV Last administered on 03/04/16at 10:01; Admin Dose 5.3 MLS/HR; Start at 12:30 Metoclopramide HCl (Reglan) 10 mg Q6 IV Last administered on 03/04/16at 05:32; Admin Dose 10 MG; Start 03/04/16 at 06:00 Assessment/Plan Chief Complaint/Hosp Course IMPRESSION 1. Hypertensive Emergency 2. Type B Aortic Dissection. No evidence on proximal dissection on recent CT neck and chest, 3. Encephalopathy, possibly secondary to antihypertensive medications. 4. Aspiration pneumonia with hypoxemic respiratory failure.Possible left effusion. New PE. 5. FARRUKH RECS: 1. Vent support unable to wean at present secondary to AMS, hypertension and upper airway edema. 2. Continue BP control 3. Sedation vacation as tolerated. CPAP weaning trial if patient is awake and alert 4. Replete lytes 5. Am CXR/ABG 6. Abx per ID 7. Anticoagulation per thoracic surgery 8. Discussed with vascular surgery not for intervention at this point 9. Trial of Precedex decrease sedation as tolerated prognosis guarded Problems: ANAYA BREWSTER MD, [facility] Mar 04, 2016 10:21
[2016-03-04] MEDS: CEFTRIAXONE 1 GM/50 ML (PMX) 50 ML IVPB SCH (12:26)
[2016-03-04] MEDS: hydrALAzine 20 MG INJ IV PRN (12:27)
--- NOTE | 2016-03-04 12:53 | CONS ---
Date/Time of Note Date/Time of Note DATE: 03/04/16 TIME: 12:50 Assessment/Plan Assessment/Plan Chief Complaint/Hosp Course Imp: 1.HTN emergency-NL EF by echo this admit-under reasonable control on PO medications only. Off all drips but having increased uncontrolled BP when agitated/stimulated or on sedation vacation 2.Aortic dissection-type B again demonstrated by Chest CT 02/29/16 3.abnl ecg-lateral TWI-negative troponin x 3 since admit 4.anxiety 5.ARF 6. Pericardial effusion by echo-small with NL EF 7.Encephalopathic 8.Pulmonary embolism 9.Tachycardia-S tach-only when on sedation vacation Recc: -Tele in ICU -Follow volume status closely -serial ecg's -Continue PO BB/CCB/minoxindil/hydralazine and follow bp closely and will continue to make again slight increase to PO BB/hydralazine to improve BP as necessary -ongoing surgical follow-up -f/u MS closely -Vent weaning as tolerated Problems: Consultation Date/Type/Reason Admit Date/Time Feb 18, 2016 at 09:14 Initial Consult Date 02/19/2016 Type of Consultation: Cardiology Reason for Consultation HTN/aortic dissection Referring Provider: ANAYA BREWSTER MD, [facility] Exam/Review of Systems Vital Signs Vitals Vital Signs Date Time Temp Pulse Resp B/P Pulse Ox O2 Delivery O2 Flow Rate FiO2 03/04/16 12:00 143 03/04/16 11:30 28 95 30 03/04/16 10:30 159/74 Mechanical Ventilator 03/04/16 04:00 99.0 Intake and Output 03/03/16 03/03/16 03/04/16 15:00 23:00 07:00 Intake Total 1033.90 ml 640.70 ml 881.2 ml Output Total 1125 ml 365 ml 450 ml Balance -91.10 ml 275.70 ml 431.2 ml Exam Review of Systems: CONSTITUTIONAL: No fevers, chills. PULMONARY: intubated CARDIOVASCULAR: No obvious chest pain/palpitations GASTROINTESTINAL: No nausea/vomiting. GENITOURINARY: No hematuria/dysuria. MUSCULOSKELETAL: No obvious myagias/arthalgias. PSYCHIATRIC: The patient denies depression. NEUROLOGIC: sedated Constitutional: other (sedated) Psych: no complaints Head: normocephalic ENMT: intubated Neck: jvd (9 cm water), supple Respiratory: diminished breath sounds (at bases/B) Cardiovascular: regular rate and rhythm (tachycardic Regular rhythm) Gastrointestinal: non-tender, soft Extremities: edema (trace/B) Neurological: other (sedated) Results Result Diagram: 03/04/16 0400 03/04/16 0400 Results 24 hrs Laboratory Tests Test 03/03/16 13:13 03/03/16 17:59 03/03/16 19:32 03/03/16 23:49 Bedside Glucose 140 160 172 Activated Partial Thromboplast Time 45.9 H Test 03/04/16 04:00 03/04/16 05:27 03/04/16 07:00 03/04/16 09:15 Activated Partial Thromboplast Time > 180.0 *H 36.6 H Anion Gap 17 H Basophils # 0.0 Basophils % 0.2 Blood Morphology Comment Blood Urea Nitrogen 38 H Calcium Level 8.7 Carbon Dioxide Level 25 Chloride Level 106 Creatinine 1.67 H Eosinophils # 0.3 Eosinophils % 1.7 Glucose Level 279 H Hematocrit 27.0 L Hemoglobin 8.8 L Lymphocytes # 1.5 Lymphocytes % 8.8 L Magnesium Level 2.3 Mean Corpuscular Hemoglobin 26.1 L Mean Corpuscular Hemoglobin Concent 32.5 Mean Corpuscular Volume 80.2 L Mean Platelet Volume 9.3 # Monocytes # 1.3 H Monocytes % 7.8 Neutrophils # 14.1 H Neutrophils % 81.5 H Nucleated Red Blood Cells # 0.0 Nucleated Red Blood Cells % 0.0 Phosphorus Level 6.4 H Platelet Count 423 Potassium Level 4.0 Red Blood Count 3.36 L Red Cell Distribution Width 17.8 H Sodium Level 144 White Blood Count 17.3 H Bedside Glucose 154 Arterial Blood HCO3 25.1 Arterial Blood Base Excess 1.5 Arterial Blood Oxygen Saturation 96.3 Jovanny Test ACCEPTAB Arterial Blood Gas Puncture Site Right Radial Arterial Blood Carboxyhemoglobin 0.3 Arterial Blood Date Drawn 03/04/2016 8:10:11 AM Arterial Blood Methemoglobin 0.3 Arterial Blood pCO2 (Temp correct) 35.5 Arterial Blood pH (Temp corrected) 7.468 H Arterial Blood pO2 (Temp corrected) 87.5 Blood Gas A-a O2 Differential 84.7 H Blood Gas Actual Respiration Rate 20 Blood Gas Low PEEP Setting 10.0 Blood Gas Modality VENT - AC Blood Gas Notified Time 03/04/2016 8:35:02 AM Blood Gas Notified Whom JLD Blood Gas Respiration Rate 20.0 Blood Gas Specimen Source Blood arterial Blood Gas Temperature 37.0 Blood Gas Tidal Volume 550.0 FiO2 30.0 Oxyhemoglobin Percent 95.7 Total Hemoglobin 9.2 L Test 03/04/16 12:25 Bedside Glucose 168 Medications Medications Current Medications Ondansetron HCl (Zofran Inj) 4 mg Q6H PRN IV NAUSEA AND/OR VOMITING; Start 02/18/16 at 09:30 Acetaminophen (Tylenol Supp) 650 mg Q4H PRN [place] PAIN LEVEL 1-3 OR FEVER Last administered on 02/24/16at 14:32; Admin Dose 650 MG; Start 02/18/16 at 09:30 Morphine Sulfate (morphine) 2 mg Q4H PRN IV PAIN LEVEL 7-10 Last administered on 02/28/16at 09:42; Admin Dose 2 MG; Start 02/18/16 at 09:30 Bisacodyl (Dulcolax Supp) 10 mg DAILY PRN [place] CONSTIPATION; Start 02/18/16 at 09 :30 Pantoprazole (Protonix Iv) 40 mg DAILY@06 IV Last administered on 03/04/16at 05 :32; Admin Dose 40 MG; Start 02/19/16 at 06:00 Amlodipine Besylate (Norvasc) 5 mg BID PO Last administered on 03/04/16at 10:01 ; Admin Dose 5 MG; Start 02/20/16 at 21:00 Hydralazine HCl (Apresoline) 10 mg Q6H PRN IV ELEVATED SYSTOLIC BP Last administered on 03/04/16at 12:27; Admin Dose 10 MG; Start 02/20/16 at 22:00 Minoxidil (Loniten) 5 mg BID PO Last administered on 03/04/16at 10:01; Admin Dose 5 MG; Start 02/20/16 at 22:00 Metoprolol Tartrate 5 mg 5 mg Q4H PRN IV HR>55 Hold SBP<100 Last administered on 03/01/16at 01:33; Admin Dose 5 MG; Start 02/21/16 at 11:30 Propofol 100 ml @ 3.189 mls/ hr Q12H IV Last administered on 03/02/16at 08:30 ; Admin Dose 12.756 MLS/HR; Start 02/21/16 at 16:30 Fentanyl/Dextrose (D5W) 100 ml @ 0 mls/hr TITRATE IV Last administered on 03/04at 03:46; Admin Dose 7 MLS/HR; Start 02/21/16 at 16:30 IV Flush (NS 10 ml) 10 ml PRN PRN IV IV PROTOCOL; Start 02/21/16 at 18:30 Ferrous Sulfate (Feosol Liquid Cup) 300 mg BID GTB Last administered on at 09:01; Admin Dose 300 MG; Start 02/22/16 at 10:00 Lorazepam 1 mg 1 mg Q1H PRN IV ANXIETY Last administered on 03/04/16at 12:06; Admin Dose 1 MG; Start 02/23/16 at 11:30 Fluconazole/ Sodium Chloride (Diflucan 100 Mg/ NS (Pmx)) 50 ml @ 50 mls/hr Q24H IVPB Last administered on 03/03/16at 15:41; Admin Dose 50 MLS/HR; Start at 14:00 Miscellaneous Information 1 ea NOTE XX ; Start 02/23/16 at 23:15 Glucose (Glutose) 15 gm Q15M PRN PO DECREASED GLUCOSE; Start 02/23/16 at 23:15 Glucose (Glutose) 22.5 gm Q15M PRN PO DECREASED GLUCOSE; Start 02/23/16 at 23: 15 Dextrose (D50w Syringe) 25 ml Q15M PRN IV DECREASED GLUCOSE; Start 02/23/16 at 23:15 Dextrose (D50w Syringe) 50 ml Q15M PRN IV DECREASED GLUCOSE; Start 02/23/16 at 23:15 Glucagon (Glucagen) 1 mg Q15M PRN IM DECREASED GLUCOSE; Start 02/23/16 at 23:15 Glucose 15 gm 15 gm Q15M PRN BUCCAL DECREASED GLUCOSE; Start 02/23/16 at 23:15 Levetiracetam/ Sodium Chloride (Keppra Iv/NS) 110 ml @ 440 mls/hr BID IVPB Last administered on 03/04/16at 09:02; Admin Dose 440 MLS/HR; Start 02/24/16 at 01:00 Insulin Aspart (Novolog Insulin Pen) NOVOLOG *MILD* ALGORI... Q6 SC Last administered on 03/04/16 12:28; Admin Dose 1 UNIT; Start 02/26/16 at 18:00 Furosemide 20 mg 20 mg DAILY IV Last administered on 03/04/16 09:02; Admin Dose 20 MG; Start 02/27/16 at 09:00 Ceftriaxone Sodium (Rocephin) 50 ml @ 100 mls/hr Q24H IVPB Last administered on 03/04/16 12:26; Admin Dose 100 MLS/HR; Start 02/27/16 at 13:00 Metronidazole (Flagyl) 500 mg Q8 PO Last administered on 03/04/16 05:29; Admin Dose 500 MG; Start 02/27/16 at 14:00 Hydralazine HCl (Apresoline) 75 mg Q8 PO Last administered on 03/04/16 05:32 ; Admin Dose 75 MG; Start 02/29/16 at 14:00 Metoprolol Tartrate (Lopressor) 100 mg Q8 PO Last administered on 03/04/16 05 :30; Admin Dose 100 MG; Start 02/29/16 at 14:00 Metoprolol Tartrate (Lopressor) 25 mg Q8 PO Last administered on 03/04/16 05: 31; Admin Dose 25 MG; Start 02/29/16 at 14:00 Acetaminophen 650 mg 650 mg Q6H PRN PO PAIN AND OR ELEVATED TEMP Last administered on 03/02/16at 20:52; Admin Dose 650 MG; Start 02/29/16 at 11:30 Midazolam HCl 50 mg/Dextrose 50 ml @ 1 mls/hr TITRATE IV ; Start 03/03/16 at 11 :30 Dexmedetomidine HCl/Sodium Chloride (Precedex/NS) 50 ml @ 5.3 mls/hr TITRATE IV Last administered on 03/04/16 10:01; Admin Dose 5.3 MLS/HR; Start at 12:30 Metoclopramide HCl (Reglan) 10 mg Q6 IV Last administered on 03/04/16 12:26; Admin Dose 10 MG; Start 03/04/16 at 06:00 JUNAID PAZ Mar 04, 2016 12:53
[2016-03-04] MEDS: FLUCONAZOLE 100 MG/NS (PMX) 50 ML IVPB SCH (13:47)
--- NOTE | 2016-03-04 14:43 | PN ---
Date/Time of Note Date/Time of Note DATE: 03/04/16 TIME: 14:28 Assessment/Plan VTE Prophylaxis VTE Prophylaxis Intervention: heparin Lines/Catheters IV [facility] Type (from [facility] PICC Line Central line still needed: Yes Urinary Cath still in place: Yes Reason Cath still needed: other (indicate) (monitor I&O) Assessment/Plan Chief Complaint/Hosp Course 1. Type B aortic dissection. Continue blood pressure control. Patient seen by vascular surgeon. No plan for surgical intervention at this time. Remains on oral antihypertensives 2. Accelerated hypertension. Still remains elevated. Continue control with oral antihypertensives. Follow-up with cardiology recommendations 3. Acute hypoxic respiratory failure. Suspect secondary to aspiration.. Continue ventilator support as per pulmonary. 4. Aspiration pneumonia. Continue antibiotics as per infectious disease consult. 5. Acute kidney injury, most probably secondary to hemodynamics. Nephrology following. Use nephrotoxic drugs with caution. Monitor renal panel 6. Left cephalic vein thrombosis. Continue elevation. Noted to be superficial 7. Pulmonary embolism (02/29/2016). On heparin at this time. Continue with thoracic surgeon recommendations 8. Iron deficiency anemia. Iron panel showing iron deficiency. Continue iron supplements. 9. Acute encephalopathy, most probably metabolic in origin. Per EEG done on 01/2016 showed generalized bihemispheric background slowing suggestive of bihemispheric subcortical dysfunction possibly from epileptiform activity. Continue on Keppra. 10. S/P sepsis secondary to gram-positive bacteremia. Latest blood cultures are negative. On antibiotics as per infectious diseases. 12. DVT prophylaxis. heparin. 13. GERD prophylaxis. Proton pump inhibitor. Disposition and plan: Continue to assess for ability for vent liberation. Monitor elevated blood pressure. Continue ICU monitoring. Discussed plan of care with Dr. Raymundo Problems: Subjective 24 Hr Interval Summary Free Text/Dictation Remains intubated and sedated. RN at bedside. Still noted with high blood pressure Exam/Review of Systems Vital Signs Vitals Vital Signs Date Time Temp Pulse Resp B/P Pulse Ox O2 Delivery O2 Flow Rate FiO2 03/04/16 12:00 143 03/04/16 11:30 28 95 30 03/04/16 10:30 159/74 Mechanical Ventilator 03/04/16 04:00 99.0 Intake and Output 03/03/16 03/03/16 03/04/16 14:59 22:59 06:59 Intake Total 1010.45 ml 728.15 ml 831.2 ml Output Total 1200 ml 410 ml 380 ml Balance -189.55 ml 318.15 ml 451.2 ml Exam General: Intubated and sedated. Eyes: pupils equal round, Anicteric sclera Neck: Supple nontender, no JVD Cardiac: S1, S2 auscultated, regular rhythm and rate Pulmonary: No obvious wheezing or crackles GI: Bowel sounds active. Slightly distended Extremities: Edema bilateral lower and upper extremities +2 Skin: Clean dry and intact Neurologic: [Intubated and sedated Results Result Diagram: 03/04/16 0400 03/04/160 Results 24 hrs Laboratory Tests Test 03/03/16 17:59 03/03/16 19:32 03/03/16 23:49 03/04/16 04:00 Bedside Glucose 160 172 Activated Partial Thromboplast Time 45.9 H > 180.0 *H Anion Gap 17 H Basophils # 0.0 Basophils % 0.2 Blood Morphology Comment Blood Urea Nitrogen 38 H Calcium Level 8.7 Carbon Dioxide Level 25 Chloride Level 106 Creatinine 1.67 H Eosinophils # 0.3 Eosinophils % 1.7 Glucose Level 279 H Hematocrit 27.0 L Hemoglobin 8.8 L Lymphocytes # 1.5 Lymphocytes % 8.8 L Magnesium Level 2.3 Mean Corpuscular Hemoglobin 26.1 L Mean Corpuscular Hemoglobin Concent 32.5 Mean Corpuscular Volume 80.2 L Mean Platelet Volume 9.3 # Monocytes # 1.3 H Monocytes % 7.8 Neutrophils # 14.1 H Neutrophils % 81.5 H Nucleated Red Blood Cells # 0.0 Nucleated Red Blood Cells % 0.0 Phosphorus Level 6.4 H Platelet Count 423 Potassium Level 4.0 Red Blood Count 3.36 L Red Cell Distribution Width 17.8 H Sodium Level 144 White Blood Count 17.3 H Test 03/04/16 05:27 03/04/16 07:00 03/04/16 09:15 03/04/16 12:25 Bedside Glucose 154 168 Arterial Blood HCO3 25.1 Arterial Blood Base Excess 1.5 Arterial Blood Oxygen Saturation 96.3 Jovanny Test ACCEPTAB Arterial Blood Gas Puncture Site Right Radial Arterial Blood Carboxyhemoglobin 0.3 Arterial Blood Date Drawn 03/04/2016 8:10:11 AM Arterial Blood Methemoglobin 0.3 Arterial Blood pCO2 (Temp correct) 35.5 Arterial Blood pH (Temp corrected) 7.468 H Arterial Blood pO2 (Temp corrected) 87.5 Blood Gas A-a O2 Differential 84.7 H Blood Gas Actual Respiration Rate 20 Blood Gas Low PEEP Setting 10.0 Blood Gas Modality VENT - AC Blood Gas Notified Time 03/04/2016 8:35:02 AM Blood Gas Notified Whom JLD Blood Gas Respiration Rate 20.0 Blood Gas Specimen Source Blood arterial Blood Gas Temperature 37.0 Blood Gas Tidal Volume 550.0 FiO2 30.0 Oxyhemoglobin Percent 95.7 Total Hemoglobin 9.2 L Activated Partial Thromboplast Time 36.6 H Medications Medications Current Medications Ondansetron HCl (Zofran Inj) 4 mg Q6H PRN IV NAUSEA AND/OR VOMITING; Start 02/18/16 at 09:30 Acetaminophen (Tylenol Supp) 650 mg Q4H PRN [place] PAIN LEVEL 1-3 OR FEVER Last administered on 02/24/16at 14:32; Admin Dose 650 MG; Start 02/18/16 at 09:30 Morphine Sulfate (morphine) 2 mg Q4H PRN IV PAIN LEVEL 7-10 Last administered on 02/28/16at 09:42; Admin Dose 2 MG; Start 02/18/16 at 09:30 Bisacodyl (Dulcolax Supp) 10 mg DAILY PRN [place] CONSTIPATION; Start 02/18/16 at 09 :30 Pantoprazole (Protonix Iv) 40 mg DAILY@06 IV Last administered on 03/04/16at 05 :32; Admin Dose 40 MG; Start 02/19/16 at 06:00 Amlodipine Besylate (Norvasc) 5 mg BID PO Last administered on 03/04/16at 10:01 ; Admin Dose 5 MG; Start 02/20/16 at 21:00 Hydralazine HCl (Apresoline) 10 mg Q6H PRN IV ELEVATED SYSTOLIC BP Last administered on 03/04/16at 12:27; Admin Dose 10 MG; Start 02/20/16 at 22:00 Minoxidil (Loniten) 5 mg BID PO Last administered on 03/04/16at 10:01; Admin Dose 5 MG; Start 02/20/16 at 22:00 Metoprolol Tartrate 5 mg 5 mg Q4H PRN IV HR>55 Hold SBP<100 Last administered on 03/01/16at 01:33; Admin Dose 5 MG; Start 02/21/16 at 11:30 Propofol 100 ml @ 3.189 mls/ hr Q12H IV Last administered on 03/02/16at 08:30 ; Admin Dose 12.756 MLS/HR; Start 02/21/16 at 16:30 Fentanyl/Dextrose (D5W) 100 ml @ 0 mls/hr TITRATE IV Last administered on 03/04at 13:31; Admin Dose 10 MLS/HR; Start 02/21/16 at 16:30 IV Flush (NS 10 ml) 10 ml PRN PRN IV IV PROTOCOL; Start 02/21/16 at 18:30 Ferrous Sulfate (Feosol Liquid Cup) 300 mg BID GTB Last administered on at 09:01; Admin Dose 300 MG; Start 02/22/16 at 10:00 Lorazepam 1 mg 1 mg Q1H PRN IV ANXIETY Last administered on 03/04/16at 13:47; Admin Dose 1 MG; Start 02/23/16 at 11:30 Fluconazole/ Sodium Chloride (Diflucan 100 Mg/ NS (Pmx)) 50 ml @ 50 mls/hr Q24H IVPB Last administered on 03/04/16at 13:47; Admin Dose 50 MLS/HR; Start at 14:00 Miscellaneous Information 1 ea NOTE XX ; Start 02/23/16 at 23:15 Glucose (Glutose) 15 gm Q15M PRN PO DECREASED GLUCOSE; Start 02/23/16 at 23:15 Glucose (Glutose) 22.5 gm Q15M PRN PO DECREASED GLUCOSE; Start 02/23/16 at 23: 15 Dextrose (D50w Syringe) 25 ml Q15M PRN IV DECREASED GLUCOSE; Start 02/23/16 at 23:15 Dextrose (D50w Syringe) 50 ml Q15M PRN IV DECREASED GLUCOSE; Start 02/23/16 at 23:15 Glucagon (Glucagen) 1 mg Q15M PRN IM DECREASED GLUCOSE; Start 02/23/16 at 23:15 Glucose 15 gm 15 gm Q15M PRN BUCCAL DECREASED GLUCOSE; Start 02/23/16 at 23:15 Levetiracetam/ Sodium Chloride (Keppra Iv/NS) 110 ml @ 440 mls/hr BID IVPB Last administered on 03/04/16 09:02; Admin Dose 440 MLS/HR; Start 02/24/16 at 01:00 Insulin Aspart (Novolog Insulin Pen) NOVOLOG *MILD* ALGORI... Q6 SC Last administered on 03/04/16 12:28; Admin Dose 1 UNIT; Start 02/26/16 at 18:00 Furosemide 20 mg 20 mg DAILY IV Last administered on 03/04/16 09:02; Admin Dose 20 MG; Start 02/27/16 at 09:00 Ceftriaxone Sodium (Rocephin) 50 ml @ 100 mls/hr Q24H IVPB Last administered on 03/04/16 12:26; Admin Dose 100 MLS/HR; Start 02/27/16 at 13:00 Metronidazole (Flagyl) 500 mg Q8 PO Last administered on 03/04/16 05:29; Admin Dose 500 MG; Start 02/27/16 at 14:00 Metoprolol Tartrate (Lopressor) 100 mg Q8 PO Last administered on 03/04/16 05 :30; Admin Dose 100 MG; Start 02/29/16 at 14:00 Acetaminophen 650 mg 650 mg Q6H PRN PO PAIN AND OR ELEVATED TEMP Last administered on 03/02/16at 20:52; Admin Dose 650 MG; Start 02/29/16 at 11:30 Midazolam HCl 50 mg/Dextrose 50 ml @ 1 mls/hr TITRATE IV ; Start 03/03/16 at 11 :30 Dexmedetomidine HCl/Sodium Chloride (Precedex/NS) 50 ml @ 5.3 mls/hr TITRATE IV Last administered on 03/04/16at 10:01; Admin Dose 5.3 MLS/HR; Start at 12:30 Metoclopramide HCl (Reglan) 10 mg Q6 IV Last administered on 03/04/16 12:26; Admin Dose 10 MG; Start 03/04/16 at 06:00 Hydralazine HCl (Apresoline) 100 mg Q8 PO ; Start 03/04/16 at 14:00 Metoprolol Tartrate (Lopressor) 50 mg Q8 PO ; Start 03/04/16 at 14:00 REJI WADE Mar 04, 2016 14:39
--- NOTE | 2016-03-04 15:35 | PN ---
DATE: 03/04/2016 SUBJECTIVE: The patient is lying comfortably in bed. He did not tolerate weaning trials today and became very agitated with heart rate increased to 140, high blood pressure. T-max 100.0 yesterday. T-current 99, pulse 77, respirations 20, blood pressure 159/74, saturation 95 on 30 FIO2. WBC 17.3, H and H 8.8 and 27, platelets 423, neutrophils 81.5, BUN 38, creatinine 1.67. MICROBIOLOGY: Blood culture and urine culture since 02/29/2016 negative. DIAGNOSTICS: Chest x-ray this morning revealed moderate cardiomegaly and left lower lobe atelectasi s that is unchanged. ANTIMICROBIALS: The patient is on: 1. Ceftriaxone 2. Flagyl. INDWELLINGS: Endotracheal tube, NG tube, Smalls catheter, right upper extremity PICC line. PHYSICAL EXAMINATION: GENERAL: This is an obese, well-developed, middle-aged man who is lying comfortabl y in bed. The patient is sedated. He is in no distress. HEENT: Head atraumatic, normocephalic. Sclerae anicteric. Buccal mucosa dry. NECK: Supple. CHEST: Rise symmetrical. Breath sounds diminished. HEART: S1, S2. ABDOMEN: Soft, bowel tones present. EXTREMITIES: Without cyanosis. Bilateral trace edema. ASSESSMENT: 1. Acute respiratory failure secondary to aspiration pneumonia and fluid overload. 2. Status post coagulase-negative staph bacteremia on admission with repeat cultures negative. 3. Pulmonary emboli. 4. Status epilepticus with new onset of seizures. 5. Type B aortic dissection. 6. Acute renal failure. PLAN: The patient remains unchanged, still with significant leukocytosis. He has been on antibiotic s for pneumoniae and E. coli that he was growing in his sputum. He is repeat sputum culture grew Ca ndida albicans, and he is currently on fluconazole. His repeat cultures had been negative since . Dictated By: HUSAM SANFORD [employer]BER SPOTTER for YESIKA LOPEZ/NTS Conf#: [id number] DID#: [id number]
[2016-03-04] MEDS: HEPARIN 1000 UNITS/ML 10 ML INJ IV PRN (20:16)
--- NOTE | 2016-03-04 20:31 | PN ---
Date/Time of Note Date/Time of Note DATE: 03/04/16 TIME: 20:30 Assessment/Plan VTE Prophylaxis VTE Prophylaxis Intervention: other Lines/Catheters IV [facility] Type (from [facility] Central line still needed: No Urinary Cath still in place: No Assessment/Plan Chief Complaint/Hosp Course IMPRESSION: Type B aortic dissection. The patient's blood pressure more controlled RECOMMENDATIONS: At this time, we would continue blood pressure management, monitor vital signs and laboratory values in an intensive care unit setting. Vent support per pulm medicine No plan for surgery. Abx Repeat CTA Dissection involving the thoracic aorta arising distal to the origin of the left subclavian artery and extending into the abdominal aorta. The distal extent was not included on the study. Flow within both true and false lumen to the level of the celiac artery. Would continue BP control , Vent support Type B aortic dissection PE, OK to start anticoagulation no plan for surgery at this time I discussed with the patient and Dr. Mccabe and staff Problems: Subjective 24 Hr Interval Summary Cardiovascular: no complaints Gastrointestinal: no complaints Genitourinary: no complaints Musculoskeletal: no complaints Skin: no complaints Exam/Review of Systems Vital Signs Vitals Vital Signs Date Time Temp Pulse Resp B/P Pulse Ox O2 Delivery O2 Flow Rate FiO2 03/04/16 19:30 85 20 98 30 03/04/16 19:00 118/73 Mechanical Ventilator 03/04/16 15:59 98.6 Intake and Output 03/03/16 03/03/16 03/04/16 15:00 23:00 07:00 Intake Total 1033.90 ml 640.70 ml 881.2 ml Output Total 1125 ml 365 ml 450 ml Balance -91.10 ml 275.70 ml 431.2 ml Exam ENMT: nl external ears & nose, nl lips & teeth, nl nasal mucosa & septum Neck: non-tender, supple Respiratory: clear to auscultation, normal air movement Cardiovascular: nl pulses, regular rate and rhythm Results Result Diagram: 03/04/16 0400 03/04/16 0400 Results 24 hrs Laboratory Tests Test 03/03/16 23:49 03/04/16 04:00 03/04/16 05:27 03/04/16 07:00 Bedside Glucose 172 154 Activated Partial Thromboplast Time > 180.0 *H Anion Gap 17 H Basophils # 0.0 Basophils % 0.2 Blood Morphology Comment Blood Urea Nitrogen 38 H Calcium Level 8.7 Carbon Dioxide Level 25 Chloride Level 106 Creatinine 1.67 H Eosinophils # 0.3 Eosinophils % 1.7 Glucose Level 279 H Hematocrit 27.0 L Hemoglobin 8.8 L Lymphocytes # 1.5 Lymphocytes % 8.8 L Magnesium Level 2.3 Mean Corpuscular Hemoglobin 26.1 L Mean Corpuscular Hemoglobin Concent 32.5 Mean Corpuscular Volume 80.2 L Mean Platelet Volume 9.3 # Monocytes # 1.3 H Monocytes % 7.8 Neutrophils # 14.1 H Neutrophils % 81.5 H Nucleated Red Blood Cells # 0.0 Nucleated Red Blood Cells % 0.0 Phosphorus Level 6.4 H Platelet Count 423 Potassium Level 4.0 Red Blood Count 3.36 L Red Cell Distribution Width 17.8 H Sodium Level 144 White Blood Count 17.3 H Arterial Blood HCO3 25.1 Arterial Blood Base Excess 1.5 Arterial Blood Oxygen Saturation 96.3 Jovanny Test ACCEPTAB Arterial Blood Gas Puncture Site Right Radial Arterial Blood Carboxyhemoglobin 0.3 Arterial Blood Date Drawn 03/04/2016 8:10:11 AM Arterial Blood Methemoglobin 0.3 Arterial Blood pCO2 (Temp correct) 35.5 Arterial Blood pH (Temp corrected) 7.468 H Arterial Blood pO2 (Temp corrected) 87.5 Blood Gas A-a O2 Differential 84.7 H Blood Gas Actual Respiration Rate 20 Blood Gas Low PEEP Setting 10.0 Blood Gas Modality VENT - AC Blood Gas Notified Time 03/04/2016 8:35:02 AM Blood Gas Notified Whom JLD Blood Gas Respiration Rate 20.0 Blood Gas Specimen Source Blood arterial Blood Gas Temperature 37.0 Blood Gas Tidal Volume 550.0 FiO2 30.0 Oxyhemoglobin Percent 95.7 Total Hemoglobin 9.2 L Test 03/04/16 09:15 03/04/16 12:25 03/04/16 17:25 03/04/16 17:35 Activated Partial Thromboplast Time 36.6 H 49.6 H Bedside Glucose 168 143 Medications Medications Current Medications Ondansetron HCl (Zofran Inj) 4 mg Q6H PRN IV NAUSEA AND/OR VOMITING; Start 02/18/16 at 09:30 Acetaminophen (Tylenol Supp) 650 mg Q4H PRN [place] PAIN LEVEL 1-3 OR FEVER Last administered on 02/24/16at 14:32; Admin Dose 650 MG; Start 02/18/16 at 09:30 Morphine Sulfate (morphine) 2 mg Q4H PRN IV PAIN LEVEL 7-10 Last administered on 02/28/16at 09:42; Admin Dose 2 MG; Start 02/18/16 at 09:30 Bisacodyl (Dulcolax Supp) 10 mg DAILY PRN [place] CONSTIPATION; Start 02/18/16 at 09 :30 Pantoprazole (Protonix Iv) 40 mg DAILY@06 IV Last administered on 03/04/16at 05 :32; Admin Dose 40 MG; Start 02/19/16 at 06:00 Amlodipine Besylate (Norvasc) 5 mg BID PO Last administered on 03/04/16 20:17 ; Admin Dose 5 MG; Start 02/20/16 at 21:00 Hydralazine HCl (Apresoline) 10 mg Q6H PRN IV ELEVATED SYSTOLIC BP Last administered on 03/04/16at 12:27; Admin Dose 10 MG; Start 02/20/16 at 22:00 Minoxidil (Loniten) 5 mg BID PO Last administered on 03/04/16at 20:17; Admin Dose 5 MG; Start 02/20/16 at 22:00 Metoprolol Tartrate 5 mg 5 mg Q4H PRN IV HR>55 Hold SBP<100 Last administered on 03/01/16at 01:33; Admin Dose 5 MG; Start 02/21/16 at 11:30 Propofol 100 ml @ 3.189 mls/ hr Q12H IV Last administered on 03/02/16at 08:30 ; Admin Dose 12.756 MLS/HR; Start 02/21/16 at 16:30 Fentanyl/Dextrose (D5W) 100 ml @ 0 mls/hr TITRATE IV Last administered on 03/04at 13:31; Admin Dose 10 MLS/HR; Start 02/21/16 at 16:30 IV Flush (NS 10 ml) 10 ml PRN PRN IV IV PROTOCOL; Start 02/21/16 at 18:30 Ferrous Sulfate (Feosol Liquid Cup) 300 mg BID GTB Last administered on at 20:10; Admin Dose 300 MG; Start 02/22/16 at 10:00 Lorazepam 1 mg 1 mg Q1H PRN IV ANXIETY Last administered on 03/04/16at 20:11; Admin Dose 1 MG; Start 02/23/16 at 11:30 Fluconazole/ Sodium Chloride (Diflucan 100 Mg/ NS (Pmx)) 50 ml @ 50 mls/hr Q24H IVPB Last administered on 03/04/16at 13:47; Admin Dose 50 MLS/HR; Start at 14:00 Miscellaneous Information 1 ea NOTE XX ; Start 02/23/16 at 23:15 Glucose (Glutose) 15 gm Q15M PRN PO DECREASED GLUCOSE; Start 02/23/16 at 23:15 Glucose (Glutose) 22.5 gm Q15M PRN PO DECREASED GLUCOSE; Start 02/23/16 at 23: 15 Dextrose (D50w Syringe) 25 ml Q15M PRN IV DECREASED GLUCOSE; Start 02/23/16 at 23:15 Dextrose (D50w Syringe) 50 ml Q15M PRN IV DECREASED GLUCOSE; Start 02/23/16 at 23:15 Glucagon (Glucagen) 1 mg Q15M PRN IM DECREASED GLUCOSE; Start 02/23/16 at 23:15 Glucose 15 gm 15 gm Q15M PRN BUCCAL DECREASED GLUCOSE; Start 02/23/16 at 23:15 Levetiracetam/ Sodium Chloride (Keppra Iv/NS) 110 ml @ 440 mls/hr BID IVPB Last administered on 03/04/16at 20:10; Admin Dose 440 MLS/HR; Start 02/24/16 at 01:00 Insulin Aspart (Novolog Insulin Pen) NOVOLOG *MILD* ALGORI... Q6 SC Last administered on 03/04/16at 17:41; Admin Dose 1 UNIT; Start 02/26/16 at 18:00 Furosemide 20 mg 20 mg DAILY IV Last administered on 03/04/16at 09:02; Admin Dose 20 MG; Start 02/27/16 at 09:00 Ceftriaxone Sodium (Rocephin) 50 ml @ 100 mls/hr Q24H IVPB Last administered on 03/04/16at 12:26; Admin Dose 100 MLS/HR; Start 02/27/16 at 13:00 Metronidazole (Flagyl) 500 mg Q8 PO Last administered on 03/04/16at 14:51; Admin Dose 500 MG; Start 02/27/16 at 14:00 Metoprolol Tartrate (Lopressor) 100 mg Q8 PO Last administered on 03/04/16 17 :45; Admin Dose 100 MG; Start 02/29/16 at 14:00 Acetaminophen 650 mg 650 mg Q6H PRN PO PAIN AND OR ELEVATED TEMP Last administered on 03/02/16at 20:52; Admin Dose 650 MG; Start 02/29/16 at 11:30 Midazolam HCl 50 mg/Dextrose 50 ml @ 1 mls/hr TITRATE IV ; Start 03/03/16 at 11 :30 Dexmedetomidine HCl/Sodium Chloride (Precedex/NS) 50 ml @ 5.3 mls/hr TITRATE IV Last administered on 03/04/16 18:17; Admin Dose 5.3 MLS/HR; Start at 12:30 Metoclopramide HCl (Reglan) 10 mg Q6 IV Last administered on 03/04/16at 17:36; Admin Dose 10 MG; Start 03/04/16 at 06:00 Hydralazine HCl (Apresoline) 100 mg Q8 PO Last administered on 03/04/16 17:43 ; Admin Dose 100 MG; Start 03/04/16 at 14:00 Metoprolol Tartrate (Lopressor) 50 mg Q8 PO Last administered on 03/04/16 17: 44; Admin Dose 50 MG; Start 03/04/16 at 14:00 KAYLYN RADFORD MD Mar 04, 2016 20:31
--- NOTE | 2016-03-04 22:15 | CONS ---
Date/Time of Note Date/Time of Note DATE: 03/04/16 TIME: 22:14 Assessment/Plan Assessment/Plan Chief Complaint/Hosp Course Assessment/Plan 1. Acute kidney injury, likely secondary to acute tubular necrosis from contrast-induced nephropathy and also secondary to ischemic acute tubular necrosis from aortic dissection. 2. A type B [place] aortic dissection. 3. Hypertension 4. 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 Problems: Consultation Date/Type/Reason Admit Date/Time Feb 18, 2016 at 09:14 Initial Consult Date 02/26/16 Type of Consultation: RENAL Referring Provider: ANAYA BREWSTER MD, [facility] Exam/Review of Systems Vital Signs Vitals Vital Signs Date Time Temp Pulse Resp B/P Pulse Ox O2 Delivery O2 Flow Rate FiO2 03/04/16 22:00 87 20 104/61 97 Mechanical Ventilator 03/04/16 20:00 99.4 03/04/16 19:30 30 Intake and Output 03/03/16 03/03/16 03/04/16 15:00 23:00 07:00 Intake Total 1033.90 ml 640.70 ml 881.2 ml Output Total 1125 ml 365 ml 450 ml Balance -91.10 ml 275.70 ml 431.2 ml Exam Respiratory: diminished breath sounds Cardiovascular: regular rate and rhythm Gastrointestinal: soft Extremities: edema (+) Results Result Diagram: 03/04/16 0400 03/04/16 0400 Results 24 hrs Laboratory Tests Test 03/03/16 23:49 03/04/16 04:00 03/04/16 05:27 03/04/16 07:00 Bedside Glucose 172 154 Activated Partial Thromboplast Time > 180.0 *H Anion Gap 17 H Basophils # 0.0 Basophils % 0.2 Blood Morphology Comment Blood Urea Nitrogen 38 H Calcium Level 8.7 Carbon Dioxide Level 25 Chloride Level 106 Creatinine 1.67 H Eosinophils # 0.3 Eosinophils % 1.7 Glucose Level 279 H Hematocrit 27.0 L Hemoglobin 8.8 L Lymphocytes # 1.5 Lymphocytes % 8.8 L Magnesium Level 2.3 Mean Corpuscular Hemoglobin 26.1 L Mean Corpuscular Hemoglobin Concent 32.5 Mean Corpuscular Volume 80.2 L Mean Platelet Volume 9.3 # Monocytes # 1.3 H Monocytes % 7.8 Neutrophils # 14.1 H Neutrophils % 81.5 H Nucleated Red Blood Cells # 0.0 Nucleated Red Blood Cells % 0.0 Phosphorus Level 6.4 H Platelet Count 423 Potassium Level 4.0 Red Blood Count 3.36 L Red Cell Distribution Width 17.8 H Sodium Level 144 White Blood Count 17.3 H Arterial Blood HCO3 25.1 Arterial Blood Base Excess 1.5 Arterial Blood Oxygen Saturation 96.3 Jovanny Test ACCEPTAB Arterial Blood Gas Puncture Site Right Radial Arterial Blood Carboxyhemoglobin 0.3 Arterial Blood Date Drawn 03/04/2016 8:10:11 AM Arterial Blood Methemoglobin 0.3 Arterial Blood pCO2 (Temp correct) 35.5 Arterial Blood pH (Temp corrected) 7.468 H Arterial Blood pO2 (Temp corrected) 87.5 Blood Gas A-a O2 Differential 84.7 H Blood Gas Actual Respiration Rate 20 Blood Gas Low PEEP Setting 10.0 Blood Gas Modality VENT - AC Blood Gas Notified Time 03/04/2016 8:35:02 AM Blood Gas Notified Whom JLD Blood Gas Respiration Rate 20.0 Blood Gas Specimen Source Blood arterial Blood Gas Temperature 37.0 Blood Gas Tidal Volume 550.0 FiO2 30.0 Oxyhemoglobin Percent 95.7 Total Hemoglobin 9.2 L Test 03/04/16 09:15 03/04/16 12:25 03/04/16 17:25 03/04/16 17:35 Activated Partial Thromboplast Time 36.6 H 49.6 H Bedside Glucose 168 143 Medications Medications Current Medications Ondansetron HCl (Zofran Inj) 4 mg Q6H PRN IV NAUSEA AND/OR VOMITING; Start 02/18/16 at 09:30 Acetaminophen (Tylenol Supp) 650 mg Q4H PRN [place] PAIN LEVEL 1-3 OR FEVER Last administered on 02/24/16at 14:32; Admin Dose 650 MG; Start 02/18/16 at 09:30 Morphine Sulfate (morphine) 2 mg Q4H PRN IV PAIN LEVEL 7-10 Last administered on 02/28/16at 09:42; Admin Dose 2 MG; Start 02/18/16 at 09:30 Bisacodyl (Dulcolax Supp) 10 mg DAILY PRN [place] CONSTIPATION; Start 02/18/16 at 09 :30 Pantoprazole (Protonix Iv) 40 mg DAILY@06 IV Last administered on 03/04/16at 05 :32; Admin Dose 40 MG; Start 02/19/16 at 06:00 Amlodipine Besylate (Norvasc) 5 mg BID PO Last administered on 03/04/16 20:17 ; Admin Dose 5 MG; Start 02/20/16 at 21:00 Hydralazine HCl (Apresoline) 10 mg Q6H PRN IV ELEVATED SYSTOLIC BP Last administered on 03/04/16 12:27; Admin Dose 10 MG; Start 02/20/16 at 22:00 Minoxidil (Loniten) 5 mg BID PO Last administered on 03/04/16 20:17; Admin Dose 5 MG; Start 02/20/16 at 22:00 Metoprolol Tartrate 5 mg 5 mg Q4H PRN IV HR>55 Hold SBP<100 Last administered on 03/01/16at 01:33; Admin Dose 5 MG; Start 02/21/16 at 11:30 Propofol 100 ml @ 3.189 mls/ hr Q12H IV Last administered on 03/02/16at 08:30 ; Admin Dose 12.756 MLS/HR; Start 02/21/16 at 16:30 Fentanyl/Dextrose (D5W) 100 ml @ 0 mls/hr TITRATE IV Last administered on 03/04 13:31; Admin Dose 10 MLS/HR; Start 02/21/16 at 16:30 IV Flush (NS 10 ml) 10 ml PRN PRN IV IV PROTOCOL; Start 02/21/16 at 18:30 Ferrous Sulfate (Feosol Liquid Cup) 300 mg BID GTB Last administered on at 20:10; Admin Dose 300 MG; Start 02/22/16 at 10:00 Lorazepam 1 mg 1 mg Q1H PRN IV ANXIETY Last administered on 03/04/16at 20:11; Admin Dose 1 MG; Start 02/23/16 at 11:30 Fluconazole/ Sodium Chloride (Diflucan 100 Mg/ NS (Pmx)) 50 ml @ 50 mls/hr Q24H IVPB Last administered on 03/04/16at 13:47; Admin Dose 50 MLS/HR; Start at 14:00 Miscellaneous Information 1 ea NOTE XX ; Start 02/23/16 at 23:15 Glucose (Glutose) 15 gm Q15M PRN PO DECREASED GLUCOSE; Start 02/23/16 at 23:15 Glucose (Glutose) 22.5 gm Q15M PRN PO DECREASED GLUCOSE; Start 02/23/16 at 23: 15 Dextrose (D50w Syringe) 25 ml Q15M PRN IV DECREASED GLUCOSE; Start 02/23/16 at 23:15 Dextrose (D50w Syringe) 50 ml Q15M PRN IV DECREASED GLUCOSE; Start 02/23/16 at 23:15 Glucagon (Glucagen) 1 mg Q15M PRN IM DECREASED GLUCOSE; Start 02/23/16 at 23:15 Glucose 15 gm 15 gm Q15M PRN BUCCAL DECREASED GLUCOSE; Start 02/23/16 at 23:15 Levetiracetam/ Sodium Chloride (Keppra Iv/NS) 110 ml @ 440 mls/hr BID IVPB Last administered on 03/04/16at 20:10; Admin Dose 440 MLS/HR; Start 02/24/16 at 01:00 Insulin Aspart (Novolog Insulin Pen) NOVOLOG *MILD* ALGORI... Q6 SC Last administered on 03/04/16at 17:41; Admin Dose 1 UNIT; Start 02/26/16 at 18:00 Furosemide 20 mg 20 mg DAILY IV Last administered on 03/04/16at 09:02; Admin Dose 20 MG; Start 02/27/16 at 09:00 Ceftriaxone Sodium (Rocephin) 50 ml @ 100 mls/hr Q24H IVPB Last administered on 03/04/16at 12:26; Admin Dose 100 MLS/HR; Start 02/27/16 at 13:00 Metronidazole (Flagyl) 500 mg Q8 PO Last administered on 03/04/16at 21:39; Admin Dose 500 MG; Start 02/27/16 at 14:00 Metoprolol Tartrate (Lopressor) 100 mg Q8 PO Last administered on 03/04/16at 21 :39; Admin Dose 100 MG; Start 02/29/16 at 14:00 Acetaminophen 650 mg 650 mg Q6H PRN PO PAIN AND OR ELEVATED TEMP Last administered on 03/02/16at 20:52; Admin Dose 650 MG; Start 02/29/16 at 11:30 Midazolam HCl 50 mg/Dextrose 50 ml @ 1 mls/hr TITRATE IV ; Start 03/03/16 at 11 :30 Dexmedetomidine HCl/Sodium Chloride (Precedex/NS) 50 ml @ 5.3 mls/hr TITRATE IV Last administered on 03/04/16 18:17; Admin Dose 5.3 MLS/HR; Start at 12:30 Metoclopramide HCl (Reglan) 10 mg Q6 IV Last administered on 03/04/16at 17:36; Admin Dose 10 MG; Start 03/04/16 at 06:00 Hydralazine HCl (Apresoline) 100 mg Q8 PO Last administered on 03/04/16at 21:40 ; Admin Dose 100 MG; Start 03/04/16 at 14:00 Metoprolol Tartrate (Lopressor) 50 mg Q8 PO Last administered on 03/04/16at 21: 40; Admin Dose 50 MG; Start 03/04/16 at 14:00 SASHA OWEN MD Mar 04, 2016 22:15
[2016-03-05] VITALS (63 sets, daily range): BP systolic 85–246; BP diastolic 53–125; PULSE 60–111; RESP 16–32
[2016-03-05] MEDS: LORAZEPAM 2 MG INJ IV PRN ×3 (01:12→20:29)
[2016-03-05] MEDS: hydrALAzine 20 MG INJ IV PRN ×3 (01:12→20:30)
[2016-03-05] MEDS: ALBUTEROL HFA 8 GM INHALER INH SCH ×4 (02:19→20:49)
[2016-03-05] MEDS: IPRATROPIUM (HFA) 12.9 GM INHALER INH SCH ×4 (02:19→20:49)
[2016-03-05] MEDS: HEPARIN 25000 UNITS/250 ML 250 ML IV SCH ×4 (02:36→19:30)
[2016-03-05] MEDS: PROPOFOL 100 ML IV SCH ×2 (02:36→16:30)
[2016-03-05] MEDS: DEXMEDETOMIDINE HCL 200 MCG in SOD CHLORIDE 0.9% 48 ML IV SCH ×5 (03:37→21:06)
[2016-03-05] MEDS: FENTAnyl 1,000 MCG in DEXTROSE 5% 80 ML IV SCH ×2 (03:51→16:39)
[2016-03-05] MEDS: ACETAMINOPHEN 325 MG TAB PO PRN (03:55)
[2016-03-05 05:44] LABS: BASOPHIL # 0.1 10^3/ul (0.0-0.1); BASOPHILS % 0.4 % (0.0-2.0); EOSINOPHILS # 0.5 10^3/ul (0.0-0.5); EOSINOPHILS % 3.1 % (0.0-7.0); HEMATOCRIT 25.7 % (42.0-52.0); HEMOGLOBIN 8.3 g/dl (14.0-18.0); LYMPHOCYTES # 1.4 10^3/ul (0.8-2.9); LYMPHOCYTES % 9.5 % (15.0-51.0); MEAN CORPUSCULAR HEMOGLOBIN 26.2 pg (29.0-33.0); MEAN CORPUSCULAR HGB CONC 32.5 g/dl (32.0-37.0); MEAN CORPUSCULAR VOLUME 80.4 fl (82.0-101.0); MEAN PLATELET VOLUME 8.4 fl (7.4-10.4); MONOCYTE # 0.4 10^3/ul (0.3-0.9); NEUTROPHIL # 12.7 10^3/ul (1.6-7.5); PLATELET COUNT 451 10^3/UL (140-440); RED BLOOD COUNT 3.19 10^6/ul (4.70-6.10); RED CELL DISTRIBUTION WIDTH 17.2 % (11.5-14.5); UNCORRECTED WBC 15.1 10^3/ul (4.8-10.8); WHITE BLOOD COUNT 15.1 10^3/ul (4.8-10.8)
[2016-03-05 05:58] LABS: POTASSIUM 4.2 mmol/L (3.5-5.1)
[2016-03-05 06:00] LABS: CREATININE 1.78 mg/dl (0.61-1.24)
[2016-03-05 06:01] LABS: CALCIUM 8.8 mg/dl (8.4-10.2); PHOSPHORUS 4.9 mg/dl (2.5-4.9)
[2016-03-05 06:02] LABS: MAGNESIUM 2.3 mg/dl (1.7-2.5)
[2016-03-05 06:06] LABS: CONDITION 1; LH ANALYZER COMMENTS 1; SUSPECT 1
[2016-03-05] MEDS: metroNIDAZOLE 500 MG TAB PO SCH ×3 (06:09→21:09)
[2016-03-05] MEDS: METOCLOPRAMIDE 10 MG INJ IV SCH ×3 (06:09→18:37)
[2016-03-05] MEDS: PANTOPRAZOLE 40 MG INJ IV SCH (06:09)
[2016-03-05] MEDS: INSULIN ASPART [NOVOLOG] 3 ML PEN SC SCH ×3 (06:17→18:36)
[2016-03-05] MEDS: METOPROLOL 25 MG TAB PO SCH ×3 (07:48→21:07)
[2016-03-05] MEDS: METOPROLOL 100 MG TAB PO SCH ×3 (07:49→21:07)
--- NOTE | 2016-03-05 08:20 | CONS ---
Date/Time of Note Date/Time of Note DATE: 03/05/16 TIME: 08:18 Assessment/Plan Assessment/Plan Additional Assessment/Plan 1.HTN emergency- well Rx when sedation, but difficult to wean with agitation now. Family at bedside - aayush try to help with weaning to "calm" down the patient when he wakes up- as pt difficult to wean, might have no option but try extubation trial without a bridge - will Rx BP as needed 2.Aortic dissection-type B again demonstrated by Chest CT 02/29/16 - no surgery planned - con't med rx - CTsurgery follows 3.abnl ecg-lateral TWI-negative troponin x 3 since admit 4.anxiety- making difficult to wean 5.ARF- avoid nephrotoxivc meds - stable overall. 6. Pericardial effusion by echo-small with NL EF- no signns of tamponade 7.Encephalopathic - better off sedation 8.Pulmonary embolism - Rx as noted- diuscuss with surgical team - now on heparin gtt Consultation Date/Type/Reason Admit Date/Time Feb 18, 2016 at 09:14 Type of Consultation: RENAL Referring Provider: ANAYA BREWSTER MD, [facility] [place] Interval Summary Free Text/Dictation Pt difficult to wean, might have no option but try extubation trial without a bridge - will Rx BP as needed - will discuss with ICU team ROS: No fever, no chills, no nausea, no vomiting, no diarrhea/constipation No recent weight changes No chest pain, no PND, no orthopnea No dizziness, blurred vision No thirst, no heat or cold intolerance Exam/Review of Systems Vital Signs Vitals Vital Signs Date Time Temp Pulse Resp B/P Pulse Ox O2 Delivery O2 Flow Rate FiO2 03/05/16 07:00 109 23 211/109 97 Mechanical Ventilator 03/05/16 05:15 30 03/05/16 04:00 100.4 Intake and Output 03/04/16 03/04/16 03/05/16 15:00 23:00 07:00 Intake Total 465.9 ml 892.1 ml 888.24 ml Output Total 1425 ml 825 ml 475 ml Balance -959.1 ml 67.1 ml 413.24 ml Exam General: WN/WD/NAD, AOx 0 sedated now HEENT: Unicetric/atraumatic/EOMI (follow commands) NECK: JVD elevated, no thyromegaly Lymph: no lymphadenopathy HEART: regular with no S3, II/ systolic murmur at apex LUNGS: Coarse sounds ABD: soft, NT, ND, +BS : Intact Neuro: non focal SKIN: chronic changes EXT: trace edema Results Result Diagram: 03/05/16 0500 03/05/16 0500 Results 24 hrs Laboratory Tests Test 03/04/16 09:15 03/04/16 12:25 03/04/16 17:25 03/04/16 17:35 Activated Partial Thromboplast Time 36.6 H 49.6 H Bedside Glucose 168 143 Test 03/04/16 23:36 03/05/16 02:24 03/05/16 05:00 03/05/16 06:11 Bedside Glucose 161 145 Activated Partial Thromboplast Time > 180.0 *H 34.3 Anion Gap 14 Basophils # 0.1 Basophils % 0.4 Blood Morphology Comment Blood Urea Nitrogen 44 H Calcium Level 8.8 Carbon Dioxide Level 28 Chloride Level 109 Creatinine 1.78 H Eosinophils # 0.5 Eosinophils % 3.1 Glucose Level 164 # Hematocrit 25.7 L Hemoglobin 8.3 L Lymphocytes # 1.4 Lymphocytes % 9.5 L Magnesium Level 2.3 Mean Corpuscular Hemoglobin 26.2 L Mean Corpuscular Hemoglobin Concent 32.5 Mean Corpuscular Volume 80.4 L Mean Platelet Volume 8.4 Monocytes # 0.4 Monocytes % 3.0 Neutrophils # 12.7 H Neutrophils % 84.0 H Nucleated Red Blood Cells # 0.0 Nucleated Red Blood Cells % 0.0 Phosphorus Level 4.9 Platelet Count 451 H Potassium Level 4.2 Red Blood Count 3.19 L Red Cell Distribution Width 17.2 H Sodium Level 147 H White Blood Count 15.1 H Medications Medications Current Medications Ondansetron HCl (Zofran Inj) 4 mg Q6H PRN IV NAUSEA AND/OR VOMITING; Start 02/18/16 at 09:30 Acetaminophen (Tylenol Supp) 650 mg Q4H PRN [place] PAIN LEVEL 1-3 OR FEVER Last administered on 02/24/16at 14:32; Admin Dose 650 MG; Start 02/18/16 at 09:30 Morphine Sulfate (morphine) 2 mg Q4H PRN IV PAIN LEVEL 7-10 Last administered on 02/28/16at 09:42; Admin Dose 2 MG; Start 02/18/16 at 09:30 Bisacodyl (Dulcolax Supp) 10 mg DAILY PRN [place] CONSTIPATION; Start 02/18/16 at 09 :30 Pantoprazole (Protonix Iv) 40 mg DAILY@06 IV Last administered on 03/05/16at 06 :09; Admin Dose 40 MG; Start 02/19/16 at 06:00 Amlodipine Besylate (Norvasc) 5 mg BID PO Last administered on 03/04/16at 20:17 ; Admin Dose 5 MG; Start 02/20/16 at 21:00 Hydralazine HCl (Apresoline) 10 mg Q6H PRN IV ELEVATED SYSTOLIC BP Last administered on 03/05/16at 01:12; Admin Dose 10 MG; Start 02/20/16 at 22:00 Minoxidil (Loniten) 5 mg BID PO Last administered on 03/04/16at 20:17; Admin Dose 5 MG; Start 02/20/16 at 22:00 Metoprolol Tartrate 5 mg 5 mg Q4H PRN IV HR>55 Hold SBP<100 Last administered on 03/01/16at 01:33; Admin Dose 5 MG; Start 02/21/16 at 11:30 Propofol 100 ml @ 3.189 mls/ hr Q12H IV Last administered on 03/02/16at 08:30 ; Admin Dose 12.756 MLS/HR; Start 02/21/16 at 16:30 Fentanyl/Dextrose (D5W) 100 ml @ 0 mls/hr TITRATE IV Last administered on 03/05at 03:51; Admin Dose 10 MLS/HR; Start 02/21/16 at 16:30 IV Flush (NS 10 ml) 10 ml PRN PRN IV IV PROTOCOL; Start 02/21/16 at 18:30 Ferrous Sulfate (Feosol Liquid Cup) 300 mg BID GTB Last administered on at 20:10; Admin Dose 300 MG; Start 02/22/16 at 10:00 Lorazepam 1 mg 1 mg Q1H PRN IV ANXIETY Last administered on 03/05/16at 01:12; Admin Dose 1 MG; Start 02/23/16 at 11:30 Fluconazole/ Sodium Chloride (Diflucan 100 Mg/ NS (Pmx)) 50 ml @ 50 mls/hr Q24H IVPB Last administered on 03/04/16at 13:47; Admin Dose 50 MLS/HR; Start at 14:00 Miscellaneous Information 1 ea NOTE XX ; Start 02/23/16 at 23:15 Glucose (Glutose) 15 gm Q15M PRN PO DECREASED GLUCOSE; Start 02/23/16 at 23:15 Glucose (Glutose) 22.5 gm Q15M PRN PO DECREASED GLUCOSE; Start 02/23/16 at 23: 15 Dextrose (D50w Syringe) 25 ml Q15M PRN IV DECREASED GLUCOSE; Start 02/23/16 at 23:15 Dextrose (D50w Syringe) 50 ml Q15M PRN IV DECREASED GLUCOSE; Start 02/23/16 at 23:15 Glucagon (Glucagen) 1 mg Q15M PRN IM DECREASED GLUCOSE; Start 02/23/16 at 23:15 Glucose 15 gm 15 gm Q15M PRN BUCCAL DECREASED GLUCOSE; Start 02/23/16 at 23:15 Levetiracetam/ Sodium Chloride (Keppra Iv/NS) 110 ml @ 440 mls/hr BID IVPB Last administered on 03/04/16at 20:10; Admin Dose 440 MLS/HR; Start 02/24/16 at 01:00 Insulin Aspart (Novolog Insulin Pen) NOVOLOG *MILD* ALGORI... Q6 SC Last administered on 03/05/16at 06:17; Admin Dose 1 UNIT; Start 02/26/16 at 18:00 Furosemide 20 mg 20 mg DAILY IV Last administered on 03/04/16at 09:02; Admin Dose 20 MG; Start 02/27/16 at 09:00 Ceftriaxone Sodium (Rocephin) 50 ml @ 100 mls/hr Q24H IVPB Last administered on 03/04/16at 12:26; Admin Dose 100 MLS/HR; Start 02/27/16 at 13:00 Metronidazole (Flagyl) 500 mg Q8 PO Last administered on 03/05/16at 06:09; Admin Dose 500 MG; Start 02/27/16 at 14:00 Metoprolol Tartrate (Lopressor) 100 mg Q8 PO Last administered on 03/05/16at 07 :49; Admin Dose 100 MG; Start 02/29/16 at 14:00 Acetaminophen 650 mg 650 mg Q6H PRN PO PAIN AND OR ELEVATED TEMP Last administered on 03/05/16at 03:55; Admin Dose 650 MG; Start 02/29/16 at 11:30 Midazolam HCl 50 mg/Dextrose 50 ml @ 1 mls/hr TITRATE IV ; Start 03/03/16 at 11 :30 Dexmedetomidine HCl/Sodium Chloride (Precedex/NS) 50 ml @ 5.3 mls/hr TITRATE IV Last administered on 03/05/16at 06:44; Admin Dose 5.3 MLS/HR; Start at 12:30 Metoclopramide HCl (Reglan) 10 mg Q6 IV Last administered on 03/05/16at 06:09; Admin Dose 10 MG; Start 03/04/16 at 06:00 Hydralazine HCl (Apresoline) 100 mg Q8 PO Last administered on 03/05/16at 06:19 ; Admin Dose 100 MG; Start 03/04/16 at 14:00 Metoprolol Tartrate (Lopressor) 50 mg Q8 PO Last administered on 03/05/16at 07: 48; Admin Dose 50 MG; Start 03/04/16 at 14:00 DERRICK DREW MD Mar 05, 2016 08:20
[2016-03-05] MEDS: LEVETIRACETAM IV 1,000 MG in SOD CHLORIDE 0.9% 100 ML IVPB SCH ×2 (08:46→21:08)
[2016-03-05] MEDS: FERROUS SULFATE 60 MG/ML 5ML CUP GTB SCH ×2 (08:47→21:06)
[2016-03-05] MEDS: FUROSEMIDE 20 MG INJ IV SCH (08:47)
[2016-03-05] MEDS: AMLODIPINE 5 MG TAB PO SCH ×2 (08:47→21:08)
[2016-03-05] MEDS: MINOXIDIL 2.5 MG TAB PO SCH ×2 (08:47→21:08)
--- NOTE | 2016-03-05 08:52 | RADRPT ---
PROCEDURE: Chest Radiograph. CLINICAL INDICATION: Pneumonia. CHF. TECHNIQUE: Single frontal chest radiograph. COMPARISON: Chest radiograph 03/04/2016. FINDINGS: The cardiomediastinal silhouette is unchanged with apparent enlargement of the heart An endotrachea l tube, nasogastric tube, right upper extremity PICC remain in stable and radiographically appropria te position.. There is retrocardiac opacification which may be related to dense overlying heart. T he left hemidiaphragm is not well visualized. There is mild right basilar atelectasis. The bones are intact. IMPRESSION: 1. Dense opacification of the left lung base which may be related to overlying dense heart. An inf iltrate or effusion may be present. Follow-up is recommended. 2. Mild right basilar atelectasis. 3. Otherwise stable radiographic appearance of the chest compared to 03/04/2016 with stable lines a nd tubes. RPTAT: KK .Ronni Mota MD, MD Date Time Electronically viewed and signed by .Ronni Mota MD, on 03/05/2016 08:51 .B/
--- NOTE | 2016-03-05 11:54 | CONS ---
Date/Time of Note Date/Time of Note DATE: 03/05/16 TIME: 11:53 Consult Date/Type/Reason Admit Date/Time Feb 18, 2016 at 09:14 Type of Consultation: pulmonary Ordering Provider: [facility] BREWSTER [facility], [facility] Subjective Agitated off sedation but following simple commands Placed on CPAP weaning trial Minimal oral secretions Objective Vital Signs Date Time Temp Pulse Resp B/P Pulse Ox O2 Delivery O2 Flow Rate FiO2 03/05/16 10:45 90 27 178/95 97 Mechanical Ventilator 03/05/16 08:00 99.1 03/05/16 08:00 30 Intake and Output 03/04/16 03/04/16 03/05/16 15:00 23:00 07:00 Intake Total 465.9 ml 892.1 ml 888.24 ml Output Total 1425 ml 845 ml 475 ml Balance -959.1 ml 47.1 ml 413.24 ml PHYSICAL EXAMINATION GENERAL: A well-nourished well-developed gentleman intubated on mechanical ventilation. VITAL SIGNS: see below. HEENT: Pupils equal, round, and reactive to light. CARDIAC: S1, S2, tachycardia. CHEST: Diminished air entry bilaterally. ABDOMEN: Mildly distended. No bowel sounds. EXTREMITIES: No cyanosis, clubbing edema +1 upper extremities NEUROLOGIC: generalized weakness. Results/Medications Result Diagram: 03/05/16 0500 03/05/16 0500 Results 24 hrs Laboratory Tests Test 03/04/16 12:25 03/04/16 17:25 03/04/16 17:35 03/04/16 23:36 Bedside Glucose 168 143 161 Activated Partial Thromboplast Time 49.6 H Test 03/05/16 02:24 03/05/16 05:00 03/05/16 06:11 03/05/16 07:15 Activated Partial Thromboplast Time > 180.0 *H 34.3 30.3 Anion Gap 14 Basophils # 0.1 Basophils % 0.4 Blood Morphology Comment Blood Urea Nitrogen 44 H Calcium Level 8.8 Carbon Dioxide Level 28 Chloride Level 109 Creatinine 1.78 H Eosinophils # 0.5 Eosinophils % 3.1 Glucose Level 164 # Hematocrit 25.7 L Hemoglobin 8.3 L Lymphocytes # 1.4 Lymphocytes % 9.5 L Magnesium Level 2.3 Mean Corpuscular Hemoglobin 26.2 L Mean Corpuscular Hemoglobin Concent 32.5 Mean Corpuscular Volume 80.4 L Mean Platelet Volume 8.4 Monocytes # 0.4 Monocytes % 3.0 Neutrophils # 12.7 H Neutrophils % 84.0 H Nucleated Red Blood Cells # 0.0 Nucleated Red Blood Cells % 0.0 Phosphorus Level 4.9 Platelet Count 451 H Potassium Level 4.2 Red Blood Count 3.19 L Red Cell Distribution Width 17.2 H Sodium Level 147 H White Blood Count 15.1 H Bedside Glucose 145 Test 03/05/16 11:47 Bedside Glucose 132 Medications Current Medications Ondansetron HCl (Zofran Inj) 4 mg Q6H PRN IV NAUSEA AND/OR VOMITING; Start 02/18/16 at 09:30 Acetaminophen (Tylenol Supp) 650 mg Q4H PRN [place] PAIN LEVEL 1-3 OR FEVER Last administered on 02/24/16at 14:32; Admin Dose 650 MG; Start 02/18/16 at 09:30 Morphine Sulfate (morphine) 2 mg Q4H PRN IV PAIN LEVEL 7-10 Last administered on 02/28/16at 09:42; Admin Dose 2 MG; Start 02/18/16 at 09:30 Bisacodyl (Dulcolax Supp) 10 mg DAILY PRN [place] CONSTIPATION; Start 02/18/16 at 09 :30 Pantoprazole (Protonix Iv) 40 mg DAILY@06 IV Last administered on 03/05/16at 06 :09; Admin Dose 40 MG; Start 02/19/16 at 06:00 Amlodipine Besylate (Norvasc) 5 mg BID PO Last administered on 03/05/16at 08:47 ; Admin Dose 5 MG; Start 02/20/16 at 21:00 Hydralazine HCl (Apresoline) 10 mg Q6H PRN IV ELEVATED SYSTOLIC BP Last administered on 03/05/16at 10:37; Admin Dose 10 MG; Start 02/20/16 at 22:00 Minoxidil (Loniten) 5 mg BID PO Last administered on 03/05/16at 08:47; Admin Dose 5 MG; Start 02/20/16 at 22:00 Metoprolol Tartrate 5 mg 5 mg Q4H PRN IV HR>55 Hold SBP<100 Last administered on 03/01/16at 01:33; Admin Dose 5 MG; Start 02/21/16 at 11:30 Propofol 100 ml @ 3.189 mls/ hr Q12H IV Last administered on 03/02/16at 08:30 ; Admin Dose 12.756 MLS/HR; Start 02/21/16 at 16:30 Fentanyl/Dextrose (D5W) 100 ml @ 0 mls/hr TITRATE IV Last administered on 03/05at 03:51; Admin Dose 10 MLS/HR; Start 02/21/16 at 16:30 IV Flush (NS 10 ml) 10 ml PRN PRN IV IV PROTOCOL; Start 02/21/16 at 18:30 Ferrous Sulfate (Feosol Liquid Cup) 300 mg BID GTB Last administered on at 08:47; Admin Dose 300 MG; Start 02/22/16 at 10:00 Lorazepam 1 mg 1 mg Q1H PRN IV ANXIETY Last administered on 03/05/16at 01:12; Admin Dose 1 MG; Start 02/23/16 at 11:30 Fluconazole/ Sodium Chloride (Diflucan 100 Mg/ NS (Pmx)) 50 ml @ 50 mls/hr Q24H IVPB Last administered on 03/04/16at 13:47; Admin Dose 50 MLS/HR; Start at 14:00 Miscellaneous Information 1 ea NOTE XX ; Start 02/23/16 at 23:15 Glucose (Glutose) 15 gm Q15M PRN PO DECREASED GLUCOSE; Start 02/23/16 at 23:15 Glucose (Glutose) 22.5 gm Q15M PRN PO DECREASED GLUCOSE; Start 02/23/16 at 23: 15 Dextrose (D50w Syringe) 25 ml Q15M PRN IV DECREASED GLUCOSE; Start 02/23/16 at 23:15 Dextrose (D50w Syringe) 50 ml Q15M PRN IV DECREASED GLUCOSE; Start 02/23/16 at 23:15 Glucagon (Glucagen) 1 mg Q15M PRN IM DECREASED GLUCOSE; Start 02/23/16 at 23:15 Glucose 15 gm 15 gm Q15M PRN BUCCAL DECREASED GLUCOSE; Start 02/23/16 at 23:15 Levetiracetam/ Sodium Chloride (Keppra Iv/NS) 110 ml @ 440 mls/hr BID IVPB Last administered on 03/05/16at 08:46; Admin Dose 440 MLS/HR; Start 02/24/16 at 01:00 Insulin Aspart (Novolog Insulin Pen) NOVOLOG *MILD* ALGORI... Q6 SC Last administered on 03/05/16 06:17; Admin Dose 1 UNIT; Start 02/26/16 at 18:00 Furosemide 20 mg 20 mg DAILY IV Last administered on 03/05/16 08:47; Admin Dose 20 MG; Start 02/27/16 at 09:00 Ceftriaxone Sodium (Rocephin) 50 ml @ 100 mls/hr Q24H IVPB Last administered on 03/04/16 12:26; Admin Dose 100 MLS/HR; Start 02/27/16 at 13:00 Metronidazole (Flagyl) 500 mg Q8 PO Last administered on 03/05/16 06:09; Admin Dose 500 MG; Start 02/27/16 at 14:00 Metoprolol Tartrate (Lopressor) 100 mg Q8 PO Last administered on 03/05/16 07 :49; Admin Dose 100 MG; Start 02/29/16 at 14:00 Acetaminophen 650 mg 650 mg Q6H PRN PO PAIN AND OR ELEVATED TEMP Last administered on 03/05/16 03:55; Admin Dose 650 MG; Start 02/29/16 at 11:30 Midazolam HCl 50 mg/Dextrose 50 ml @ 1 mls/hr TITRATE IV ; Start 03/03/16 at 11 :30 Dexmedetomidine HCl/Sodium Chloride (Precedex/NS) 50 ml @ 5.3 mls/hr TITRATE IV Last administered on 03/05/16 09:55; Admin Dose 5.3 MLS/HR; Start at 12:30 Metoclopramide HCl (Reglan) 10 mg Q6 IV Last administered on 03/05/16 06:09; Admin Dose 10 MG; Start 03/04/16 at 06:00 Hydralazine HCl (Apresoline) 100 mg Q8 PO Last administered on 03/05/16 06:19 ; Admin Dose 100 MG; Start 03/04/16 at 14:00 Metoprolol Tartrate (Lopressor) 50 mg Q8 PO Last administered on 03/05/16 07: 48; Admin Dose 50 MG; Start 03/04/16 at 14:00 Assessment/Plan Chief Complaint/Hosp Course IMPRESSION 1. Hypertensive Emergency 2. Type B Aortic Dissection. No evidence on proximal dissection on recent CT neck and chest, 3. Encephalopathy, possibly secondary to antihypertensive medications. 4. Aspiration pneumonia with hypoxemic respiratory failure.Possible left effusion. New PE. 5. FARRUKH RECS: 1. Vent support unable to wean at present secondary to AMS, hypertension and upper airway edema. 2. Continue BP control 3. Sedation vacation as tolerated. CPAP weaning trial if patient is awake and alert 4. Replete lytes 5. Am CXR/ABG 6. Abx per ID 7. Anticoagulation per thoracic surgery 8. Discussed with vascular surgery not for intervention at this point 9. Trial of Precedex decrease sedation as tolerated prognosis guarded Problems: ANAYA BREWSTER MD, [facility] Mar 05, 2016 11:54
[2016-03-05] MEDS: FLUCONAZOLE 100 MG/NS (PMX) 50 ML IVPB SCH (12:16)
[2016-03-05] MEDS: CEFTRIAXONE 1 GM/50 ML (PMX) 50 ML IVPB SCH (12:16)
--- NOTE | 2016-03-05 12:27 | PN ---
Date/Time of Note Date/Time of Note DATE: 03/05/16 TIME: 12:24 Assessment/Plan VTE Prophylaxis VTE Prophylaxis Intervention: heparin Lines/Catheters IV Catheter Type (from Nrs): PICC Line Central line still needed: Yes Urinary Cath still in place: No Assessment/Plan Chief Complaint/Hosp Course Assessment and plan 1. Type B aortic dissection. Continue blood pressure control. Patient seen by vascular surgeon. No plan for surgical intervention at this time. Remains on oral antihypertensives 2. Accelerated hypertension. Still remains elevated. Continue control with oral antihypertensives. Follow-up with cardiology recommendations 3. Acute hypoxic respiratory failure. Suspect secondary to aspiration.. Continue ventilator support as per pulmonary. On CPAP trial at this time. Assessment ability for vent liberation 4. Aspiration pneumonia. Continue antibiotics as per infectious disease consult. Continue aspiration precautions 5. Acute kidney injury, most probably secondary to hemodynamics. Nephrology following. Use nephrotoxic drugs with caution. Monitor renal panel 6. Left cephalic vein thrombosis. Continue elevation. Noted to be superficial 7. Pulmonary embolism (02/29/2016). On heparin at this time. Continue with thoracic surgeon recommendations 8. Iron deficiency anemia. Iron panel showing iron deficiency. Continue iron supplements. 9. Acute encephalopathy, most probably metabolic in origin. Per EEG done on 01/2016 showed generalized bihemispheric background slowing suggestive of bihemispheric subcortical dysfunction possibly from epileptiform activity. Continue on Keppra. 10. S/P sepsis secondary to gram-positive bacteremia. Latest blood cultures are negative. On antibiotics as per infectious diseases. 12. DVT prophylaxis. heparin. 13. GERD prophylaxis. Proton pump inhibitor. Disposition and plan: Continue to assess for ability for vent liberation. Blood pressure appears better controlled on oral antihypertensives. Continue to monitor. driver utility worker following now. We'll follow-up. Continue ICU monitoring Discussed plan of care with Dr. Raymundo Critical care time: 30 minutes Problems: Subjective 24 Hr Interval Summary Free Text/Dictation Remains intubated. On CPAP trial at this time. Does awaken to verbal stimulus. No apparent distress this time. RT at bedside Exam/Review of Systems Vital Signs Vitals Vital Signs Date Time Temp Pulse Resp B/P Pulse Ox O2 Delivery O2 Flow Rate FiO2 03/05/16 12:00 99.4 107 27 161/92 96 Mechanical Ventilator 03/05/16 08:00 30 Intake and Output 03/04/16 03/04/16 03/05/16 15:00 23:00 07:00 Intake Total 465.9 ml 892.1 ml 888.24 ml Output Total 1425 ml 845 ml 475 ml Balance -959.1 ml 47.1 ml 413.24 ml Exam General: Intubated and sedated. Does awaken to verbal stimulus. No apparent distress Eyes: pupils equal round, Anicteric sclera Neck: Supple nontender, no JVD Cardiac: S1, S2 auscultated, regular rhythm and rate Pulmonary: Minimally coarse bilateral lung cabrales GI: Bowel sounds active. Slightly distended Extremities: Edema bilateral lower and upper extremities +2 Skin: Clean dry and intact Neurologic: [Intubated on light sedation Results Result Diagram: 03/05/16 0500 03/05/16 0500 Results 24 hrs Laboratory Tests Test 03/04/16 12:25 03/04/16 17:25 03/04/16 17:35 03/04/16 23:36 Bedside Glucose 168 143 161 Activated Partial Thromboplast Time 49.6 H Test 03/05/16 02:24 03/05/16 05:00 03/05/16 06:11 03/05/16 07:15 Activated Partial Thromboplast Time > 180.0 *H 34.3 30.3 Anion Gap 14 Basophils # 0.1 Basophils % 0.4 Blood Morphology Comment Blood Urea Nitrogen 44 H Calcium Level 8.8 Carbon Dioxide Level 28 Chloride Level 109 Creatinine 1.78 H Eosinophils # 0.5 Eosinophils % 3.1 Glucose Level 164 # Hematocrit 25.7 L Hemoglobin 8.3 L Lymphocytes # 1.4 Lymphocytes % 9.5 L Magnesium Level 2.3 Mean Corpuscular Hemoglobin 26.2 L Mean Corpuscular Hemoglobin Concent 32.5 Mean Corpuscular Volume 80.4 L Mean Platelet Volume 8.4 Monocytes # 0.4 Monocytes % 3.0 Neutrophils # 12.7 H Neutrophils % 84.0 H Nucleated Red Blood Cells # 0.0 Nucleated Red Blood Cells % 0.0 Phosphorus Level 4.9 Platelet Count 451 H Potassium Level 4.2 Red Blood Count 3.19 L Red Cell Distribution Width 17.2 H Sodium Level 147 H White Blood Count 15.1 H Bedside Glucose 145 Test 03/05/16 11:47 Bedside Glucose 132 Medications Medications Current Medications Ondansetron HCl (Zofran Inj) 4 mg Q6H PRN IV NAUSEA AND/OR VOMITING; Start 02/18/16 at 09:30 Acetaminophen (Tylenol Supp) 650 mg Q4H PRN [place] PAIN LEVEL 1-3 OR FEVER Last administered on 02/24/16at 14:32; Admin Dose 650 MG; Start 02/18/16 at 09:30 Morphine Sulfate (morphine) 2 mg Q4H PRN IV PAIN LEVEL 7-10 Last administered on 02/28/16at 09:42; Admin Dose 2 MG; Start 02/18/16 at 09:30 Bisacodyl (Dulcolax Supp) 10 mg DAILY PRN [place] CONSTIPATION; Start 02/18/16 at 09 :30 Pantoprazole (Protonix Iv) 40 mg DAILY@06 IV Last administered on 03/05/16at 06 :09; Admin Dose 40 MG; Start 02/19/16 at 06:00 Amlodipine Besylate (Norvasc) 5 mg BID PO Last administered on 03/05/16 08:47 ; Admin Dose 5 MG; Start 02/20/16 at 21:00 Hydralazine HCl (Apresoline) 10 mg Q6H PRN IV ELEVATED SYSTOLIC BP Last administered on 03/05/16 10:37; Admin Dose 10 MG; Start 02/20/16 at 22:00 Minoxidil (Loniten) 5 mg BID PO Last administered on 03/05/16 08:47; Admin Dose 5 MG; Start 02/20/16 at 22:00 Metoprolol Tartrate 5 mg 5 mg Q4H PRN IV HR>55 Hold SBP<100 Last administered on 03/01/16at 01:33; Admin Dose 5 MG; Start 02/21/16 at 11:30 Propofol 100 ml @ 3.189 mls/ hr Q12H IV Last administered on 03/02/16at 08:30 ; Admin Dose 12.756 MLS/HR; Start 02/21/16 at 16:30 Fentanyl/Dextrose (D5W) 100 ml @ 0 mls/hr TITRATE IV Last administered on 03/05 03:51; Admin Dose 10 MLS/HR; Start 02/21/16 at 16:30 IV Flush (NS 10 ml) 10 ml PRN PRN IV IV PROTOCOL; Start 02/21/16 at 18:30 Ferrous Sulfate (Feosol Liquid Cup) 300 mg BID GTB Last administered on at 08:47; Admin Dose 300 MG; Start 02/22/16 at 10:00 Lorazepam 1 mg 1 mg Q1H PRN IV ANXIETY Last administered on 03/05/16at 01:12; Admin Dose 1 MG; Start 02/23/16 at 11:30 Fluconazole/ Sodium Chloride (Diflucan 100 Mg/ NS (Pmx)) 50 ml @ 50 mls/hr Q24H IVPB Last administered on 03/05/16at 12:16; Admin Dose 50 MLS/HR; Start at 14:00 Miscellaneous Information 1 ea NOTE XX ; Start 02/23/16 at 23:15 Glucose (Glutose) 15 gm Q15M PRN PO DECREASED GLUCOSE; Start 02/23/16 at 23:15 Glucose (Glutose) 22.5 gm Q15M PRN PO DECREASED GLUCOSE; Start 02/23/16 at 23: 15 Dextrose (D50w Syringe) 25 ml Q15M PRN IV DECREASED GLUCOSE; Start 02/23/16 at 23:15 Dextrose (D50w Syringe) 50 ml Q15M PRN IV DECREASED GLUCOSE; Start 02/23/16 at 23:15 Glucagon (Glucagen) 1 mg Q15M PRN IM DECREASED GLUCOSE; Start 02/23/16 at 23:15 Glucose 15 gm 15 gm Q15M PRN BUCCAL DECREASED GLUCOSE; Start 02/23/16 at 23:15 Levetiracetam/ Sodium Chloride (Keppra Iv/NS) 110 ml @ 440 mls/hr BID IVPB Last administered on 03/05/16at 08:46; Admin Dose 440 MLS/HR; Start 02/24/16 at 01:00 Insulin Aspart (Novolog Insulin Pen) NOVOLOG *MILD* ALGORI... Q6 SC Last administered on 03/05/16at 06:17; Admin Dose 1 UNIT; Start 02/26/16 at 18:00 Furosemide 20 mg 20 mg DAILY IV Last administered on 03/05/16at 08:47; Admin Dose 20 MG; Start 02/27/16 at 09:00 Ceftriaxone Sodium (Rocephin) 50 ml @ 100 mls/hr Q24H IVPB Last administered on 03/05/16at 12:16; Admin Dose 100 MLS/HR; Start 02/27/16 at 13:00 Metronidazole (Flagyl) 500 mg Q8 PO Last administered on 03/05/16 06:09; Admin Dose 500 MG; Start 02/27/16 at 14:00 Metoprolol Tartrate (Lopressor) 100 mg Q8 PO Last administered on 03/05/16 07 :49; Admin Dose 100 MG; Start 02/29/16 at 14:00 Acetaminophen 650 mg 650 mg Q6H PRN PO PAIN AND OR ELEVATED TEMP Last administered on 03/05/16 03:55; Admin Dose 650 MG; Start 02/29/16 at 11:30 Midazolam HCl 50 mg/Dextrose 50 ml @ 1 mls/hr TITRATE IV ; Start 03/03/16 at 11 :30 Dexmedetomidine HCl/Sodium Chloride (Precedex/NS) 50 ml @ 5.3 mls/hr TITRATE IV Last administered on 03/05/16 09:55; Admin Dose 5.3 MLS/HR; Start at 12:30 Metoclopramide HCl (Reglan) 10 mg Q6 IV Last administered on 03/05/16 12:17; Admin Dose 10 MG; Start 03/04/16 at 06:00 Hydralazine HCl (Apresoline) 100 mg Q8 PO Last administered on 03/05/16 06:19 ; Admin Dose 100 MG; Start 03/04/16 at 14:00 Metoprolol Tartrate (Lopressor) 50 mg Q8 PO Last administered on 03/05/16 07: 48; Admin Dose 50 MG; Start 03/04/16 at 14:00 REJI WADE Mar 05, 2016 12:27
[2016-03-05] MEDS: METOPROLOL 5 MG INJ IV PRN (12:32)
[2016-03-05 12:58] LABS: AADO2 Arterial 96.4 mmHg (7.0-24.0); Allen Test ACCEPTAB; Arterial Base Excess -0.5 mmol/L (-3.0-3); Arterial COHb 0.3 % (0.0-3.0); Arterial Fraction of Oxyhgb 94.6 % (93.0-99.0); Arterial MetHb 0.3 % (0.0-1.5); Arterial Total Hemglobin 10.2 g/dl (12.0-18.0); Blood Gas PS 10; MODE VENT - CPAP
--- NOTE | 2016-03-05 14:22 | PN ---
DATE: 03/05/2016 SUBJECTIVE: Patient is awake, looks comfortable. He is on CPAP trial in no distress, no fevers ove rnight. VITAL SIGNS: Temperature 99.4, pulse 98, respirations 28, blood pressure 155/88, saturation 97% on vent. LABORATORY: WBC 15.1, H and H 8.3 and 25.7, platelets 451, neutrophils 84, no bands. BUN 44, creat inine 1.78. MICROBIOLOGY: Blood and urine cultures since 02/29/2016 negative. INDWELLINGS: Endotracheal tube, NG tube, Smalls catheter and right upper extremity PICC line. PHYSICAL EXAMINATION: GENERAL: Obese, well-developed man who is awake, comfortable on CPAP. HEENT: Head atraumatic, normocephalic. Sclerae anicteric. Buccal mucosa pink, dry. NECK: Supple, trachea midline. CHEST: Rise symmetrical. Breath sounds with scattered crackles. HEART: S1, S2. ABDOMEN: Soft, bowel tones present. EXTREMITIES: Bilateral edema. ASSESSMENT: 1. Acute respiratory failure, status post pneumonia and congestive heart failure exacerbation. 2. Status post coagulase-negative Staphylococcus bacteremia on admission. Repeat cultures being ne gative. 3. Status epilepticus, new onset of seizures. 4. Pulmonary emboli. 5. Type B aortic dissection. 6. Acute renal failure. PLAN: The patient remains stable. Repeat cultures have been negative. He completed course of anti biotics for pneumonia. We are going to stop antibiotics and observe him, panculture p.r.n. if he sp ikes fever or gets septic. Continue vent management and weaning trials as per pulmonary. Dictated By: HUSAM SANFORD SENIOR EXAMINER for YESIKA LOPEZ/NTS Conf#: [id number] DID#: [id number]
[2016-03-05] MEDS: HEPARIN 1000 UNITS/ML 10 ML INJ IV PRN (15:01)
--- NOTE | 2016-03-05 15:30 | PN ---
Date/Time of Note Date/Time of Note DATE: 03/05/16 TIME: 15:27 Assessment/Plan Lines/Catheters IV Catheter Type (from Nrsg): PICC Line Smalls in Place (from Nrsg): No Assessment/Plan Chief Complaint/Hosp Course IMPRESSION: Type B aortic dissection. The patient's blood pressure more controlled RECOMMENDATIONS: At this time, we would continue blood pressure management, monitor vital signs and laboratory values in an intensive care unit setting. Vent support per pulm medicine No plan for surgery. Abx Repeat CTA Dissection involving the thoracic aorta arising distal to the origin of the left subclavian artery and extending into the abdominal aorta. The distal extent was not included on the study. Flow within both true and false lumen to the level of the celiac artery. Would continue BP control , Vent support Type B aortic dissection PE, OK to start anticoagulation no plan for surgery at this time weaning per pulm medicine I discussed with the patient and Dr. Mccabe and staff Problems: Subjective 24 Hr Interval Summary Constitutional: improved Pain Control: mild Exam/Review of Systems Vital Signs Vitals Vital Signs Date Time Temp Pulse Resp B/P Pulse Ox O2 Delivery O2 Flow Rate FiO2 03/05/16 12:45 98 28 155/88 97 Mechanical Ventilator 03/05/16 12:00 99.4 03/05/16 08:00 30 Intake and Output 03/04/16 03/04/16 03/05/16 14:59 22:59 06:59 Intake Total 435.6 ml 879.1 ml 905.60 ml Output Total 1425 ml 820 ml 550 ml Balance -989.4 ml 59.1 ml 355.60 ml Exam ENMT: mucosa pink and moist, nl external ears & nose, nl lips & teeth, nl nasal mucosa & septum Neck: non-tender, supple Respiratory: clear to auscultation, normal air movement Cardiovascular: nl pulses, regular rate and rhythm Gastrointestinal: nl liver, spleen, non-tender, soft Results Result Diagram: 03/05/16 0500 03/05/16 0500 KAYLYN RADFORD MD Mar 05, 2016 15:30
--- NOTE | 2016-03-05 19:56 | CONS ---
Date/Time of Note Date/Time of Note DATE: 03/05/16 TIME: 19:55 Assessment/Plan Assessment/Plan Chief Complaint/Hosp Course Assessment/Plan 1. Acute kidney injury, likely secondary to acute tubular necrosis from contrast-induced nephropathy and also secondary to ischemic acute tubular necrosis from aortic dissection. 2. A type B [place] aortic dissection. 3. Hypertension 4. 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 Problems: Consultation Date/Type/Reason Admit Date/Time Feb 18, 2016 at 09:14 Initial Consult Date 02/26/16 Type of Consultation: renal Referring Provider: [facility]NA[facility] BREWSTER [facility] Exam/Review of Systems Vital Signs Vitals Vital Signs Date Time Temp Pulse Resp B/P Pulse Ox O2 Delivery O2 Flow Rate FiO2 03/05/16 17:03 86 20 99 50 03/05/16 12:45 155/88 Mechanical Ventilator 03/05/16 12:00 99.4 Intake and Output 03/04/16 03/04/16 03/05/16 15:00 23:00 07:00 Intake Total 465.9 ml 892.1 ml 888.24 ml Output Total 1425 ml 845 ml 475 ml Balance -959.1 ml 47.1 ml 413.24 ml Exam Respiratory: diminished breath sounds Cardiovascular: regular rate and rhythm Gastrointestinal: soft Extremities: edema (++) Results Result Diagram: 03/05/16 0500 03/05/16 0500 Results 24 hrs Laboratory Tests Test 03/04/16 23:36 03/05/16 02:24 03/05/16 05:00 03/05/16 06:11 Bedside Glucose 161 145 Activated Partial Thromboplast Time > 180.0 *H 34.3 Anion Gap 14 Basophils # 0.1 Basophils % 0.4 Blood Morphology Comment Blood Urea Nitrogen 44 H Calcium Level 8.8 Carbon Dioxide Level 28 Chloride Level 109 Creatinine 1.78 H Eosinophils # 0.5 Eosinophils % 3.1 Glucose Level 164 # Hematocrit 25.7 L Hemoglobin 8.3 L Lymphocytes # 1.4 Lymphocytes % 9.5 L Magnesium Level 2.3 Mean Corpuscular Hemoglobin 26.2 L Mean Corpuscular Hemoglobin Concent 32.5 Mean Corpuscular Volume 80.4 L Mean Platelet Volume 8.4 Monocytes # 0.4 Monocytes % 3.0 Neutrophils # 12.7 H Neutrophils % 84.0 H Nucleated Red Blood Cells # 0.0 Nucleated Red Blood Cells % 0.0 Phosphorus Level 4.9 Platelet Count 451 H Potassium Level 4.2 Red Blood Count 3.19 L Red Cell Distribution Width 17.2 H Sodium Level 147 H White Blood Count 15.1 H Test 03/05/16 07:15 03/05/16 11:47 03/05/16 12:30 03/05/16 13:25 Activated Partial Thromboplast Time 30.3 56.0 H Bedside Glucose 132 Arterial Blood HCO3 23.0 Arterial Blood Base Excess -0.5 Arterial Blood Oxygen Saturation 95.2 Jovanny Test ACCEPTAB Arterial Blood Gas Puncture Site Right Radial Arterial Blood Carboxyhemoglobin 0.3 Arterial Blood Date Drawn 03/05/2016 12:40:28 PM Arterial Blood Methemoglobin 0.3 Arterial Blood pCO2 (Temp correct) 33.3 L Arterial Blood pH (Temp corrected) 7.457 H Arterial Blood pO2 (Temp corrected) 78.4 L Blood Gas A-a O2 Differential 96.4 H Blood Gas Actual Respiration Rate 30 Blood Gas Low PEEP Setting 5.0 Blood Gas Modality VENT - CPAP Blood Gas Notified Time 03/05/2016 12:57:53 PM Blood Gas Notified Whom JLD Blood Gas Pressure Support 10 Blood Gas Specimen Source Blood arterial Blood Gas Temperature 37.0 FiO2 30.0 Oxyhemoglobin Percent 94.6 Total Hemoglobin 10.2 L Test 03/05/16 18:35 Bedside Glucose 165 Medications Medications Current Medications Ondansetron HCl (Zofran Inj) 4 mg Q6H PRN IV NAUSEA AND/OR VOMITING; Start 02/18/16 at 09:30 Acetaminophen (Tylenol Supp) 650 mg Q4H PRN [place] PAIN LEVEL 1-3 OR FEVER Last administered on 02/24/16at 14:32; Admin Dose 650 MG; Start 02/18/16 at 09:30 Morphine Sulfate (morphine) 2 mg Q4H PRN IV PAIN LEVEL 7-10 Last administered on 02/28/16at 09:42; Admin Dose 2 MG; Start 02/18/16 at 09:30 Bisacodyl (Dulcolax Supp) 10 mg DAILY PRN [place] CONSTIPATION; Start 02/18/16 at 09 :30 Pantoprazole (Protonix Iv) 40 mg DAILY@06 IV Last administered on 03/05/16 06 :09; Admin Dose 40 MG; Start 02/19/16 at 06:00 Amlodipine Besylate (Norvasc) 5 mg BID PO Last administered on 03/05/16 08:47 ; Admin Dose 5 MG; Start 02/20/16 at 21:00 Hydralazine HCl (Apresoline) 10 mg Q6H PRN IV ELEVATED SYSTOLIC BP Last administered on 03/05/16 10:37; Admin Dose 10 MG; Start 02/20/16 at 22:00 Minoxidil (Loniten) 5 mg BID PO Last administered on 03/05/16 08:47; Admin Dose 5 MG; Start 02/20/16 at 22:00 Metoprolol Tartrate 5 mg 5 mg Q4H PRN IV HR>55 Hold SBP<100 Last administered on 03/05/16 12:32; Admin Dose 5 MG; Start 02/21/16 at 11:30 Propofol 100 ml @ 3.189 mls/ hr Q12H IV Last administered on 03/02/16 08:30 ; Admin Dose 12.756 MLS/HR; Start 02/21/16 at 16:30 Fentanyl/Dextrose (D5W) 100 ml @ 0 mls/hr TITRATE IV Last administered on 03/05 16:39; Admin Dose 10 MLS/HR; Start 02/21/16 at 16:30 IV Flush (NS 10 ml) 10 ml PRN PRN IV IV PROTOCOL; Start 02/21/16 at 18:30 Ferrous Sulfate (Feosol Liquid Cup) 300 mg BID GTB Last administered on 08:47; Admin Dose 300 MG; Start 02/22/16 at 10:00 Lorazepam (Ativan) 1 mg Q1H PRN IV ANXIETY Last administered on 03/05/16 14: 49; Admin Dose 1 MG; Start 02/23/16 at 11:30 Miscellaneous Information 1 ea NOTE XX ; Start 02/23/16 at 23:15 Glucose (Glutose) 15 gm Q15M PRN PO DECREASED GLUCOSE; Start 02/23/16 at 23:15 Glucose (Glutose) 22.5 gm Q15M PRN PO DECREASED GLUCOSE; Start 02/23/16 at 23: 15 Dextrose (D50w Syringe) 25 ml Q15M PRN IV DECREASED GLUCOSE; Start 02/23/16 at 23:15 Dextrose (D50w Syringe) 50 ml Q15M PRN IV DECREASED GLUCOSE; Start 02/23/16 at 23:15 Glucagon (Glucagen) 1 mg Q15M PRN IM DECREASED GLUCOSE; Start 02/23/16 at 23:15 Glucose 15 gm 15 gm Q15M PRN BUCCAL DECREASED GLUCOSE; Start 02/23/16 at 23:15 Levetiracetam/ Sodium Chloride (Keppra Iv/NS) 110 ml @ 440 mls/hr BID IVPB Last administered on 03/05/16 08:46; Admin Dose 440 MLS/HR; Start 02/24/16 at 01:00 Insulin Aspart (Novolog Insulin Pen) NOVOLOG *MILD* ALGORI... Q6 SC Last administered on 03/05/16 18:36; Admin Dose 1 UNIT; Start 02/26/16 at 18:00 Furosemide (Lasix) 20 mg DAILY IV Last administered on 03/05/16 08:47; Admin Dose 20 MG; Start 02/27/16 at 09:00 Metronidazole (Flagyl) 500 mg Q8 PO Last administered on 03/05/16 14:49; Admin Dose 500 MG; Start 02/27/16 at 14:00 Metoprolol Tartrate (Lopressor) 100 mg Q8 PO Last administered on 03/05/16at 14 :50; Admin Dose 100 MG; Start 02/29/16 at 14:00 Acetaminophen 650 mg 650 mg Q6H PRN PO PAIN AND OR ELEVATED TEMP Last administered on 03/05/16 03:55; Admin Dose 650 MG; Start 02/29/16 at 11:30 Midazolam HCl 50 mg/Dextrose 50 ml @ 1 mls/hr TITRATE IV ; Start 03/03/16 at 11 :30 Dexmedetomidine HCl/Sodium Chloride (Precedex/NS) 50 ml @ 5.3 mls/hr TITRATE IV Last administered on 03/05/16at 16:11; Admin Dose 5.3 MLS/HR; Start at 12:30 Metoclopramide HCl (Reglan) 10 mg Q6 IV Last administered on 03/05/16at 18:37; Admin Dose 10 MG; Start 03/04/16 at 06:00 Hydralazine HCl (Apresoline) 100 mg Q8 PO Last administered on 03/05/16at 14:50 ; Admin Dose 100 MG; Start 03/04/16 at 14:00 Metoprolol Tartrate (Lopressor) 50 mg Q8 PO Last administered on 03/05/16at 14: 49; Admin Dose 50 MG; Start 03/04/16 at 14:00 SASHA OWEN MD Mar 05, 2016 19:56
[2016-03-06] VITALS (94 sets, daily range): BP systolic 86–215; BP diastolic 54–128; PULSE 61–116; RESP 10–32
[2016-03-06] MEDS: METOCLOPRAMIDE 10 MG INJ IV SCH ×4 (00:37→17:25)
[2016-03-06] MEDS: INSULIN ASPART [NOVOLOG] 3 ML PEN SC SCH ×4 (00:39→17:25)
[2016-03-06] MEDS: METOPROLOL 5 MG INJ IV PRN ×3 (00:48→17:27)
[2016-03-06] MEDS: ALBUTEROL HFA 8 GM INHALER INH SCH ×3 (01:13→13:40)
[2016-03-06] MEDS: IPRATROPIUM (HFA) 12.9 GM INHALER INH SCH ×3 (01:13→13:40)
[2016-03-06] MEDS: DEXMEDETOMIDINE HCL 200 MCG in SOD CHLORIDE 0.9% 48 ML IV SCH ×5 (01:42→12:23)
[2016-03-06] MEDS: FENTAnyl 1,000 MCG in DEXTROSE 5% 80 ML IV SCH (01:43)
[2016-03-06] MEDS: PROPOFOL 100 ML IV SCH ×2 (04:30→16:30)
[2016-03-06] MEDS: LORAZEPAM 2 MG INJ IV PRN ×2 (04:37→21:23)
[2016-03-06] MEDS: hydrALAzine 20 MG INJ IV PRN ×3 (04:38→15:46)
[2016-03-06] MEDS: PANTOPRAZOLE 40 MG INJ IV SCH (05:58)
[2016-03-06] MEDS: METOPROLOL 100 MG TAB PO SCH (05:59)
[2016-03-06] MEDS: METOPROLOL 25 MG TAB PO SCH (05:59)
[2016-03-06] MEDS: metroNIDAZOLE 500 MG TAB PO SCH (05:59)
[2016-03-06] MEDS: HEPARIN 25000 UNITS/250 ML 250 ML IV SCH ×2 (06:07→15:29)
[2016-03-06 06:39] LABS: POTASSIUM 3.7 mmol/L (3.5-5.1)
[2016-03-06 06:42] LABS: CALCIUM 9.3 mg/dl (8.4-10.2); CREATININE 1.97 mg/dl (0.61-1.24)
[2016-03-06 07:08] LABS: BASOPHIL # 0.1 10^3/ul (0.0-0.1); BASOPHILS % 0.7 % (0.0-2.0); EOSINOPHILS # 0.3 10^3/ul (0.0-0.5); EOSINOPHILS % 2.1 % (0.0-7.0); HEMATOCRIT 26.2 % (42.0-52.0); HEMOGLOBIN 8.6 g/dl (14.0-18.0); LYMPHOCYTES # 1.6 10^3/ul (0.8-2.9); LYMPHOCYTES % 10.2 % (15.0-51.0); MEAN CORPUSCULAR HEMOGLOBIN 26.7 pg (29.0-33.0); MEAN CORPUSCULAR HGB CONC 32.9 g/dl (32.0-37.0); MEAN CORPUSCULAR VOLUME 81.3 fl (82.0-101.0); MEAN PLATELET VOLUME 8.7 fl (7.4-10.4); MONOCYTE # 1.2 10^3/ul (0.3-0.9); MONOCYTES % 7.7 % (0.0-11.0); NEUTROPHIL # 12.4 10^3/ul (1.6-7.5); NEUTROPHILS % 79.3 % (39.0-77.0); PLATELET COUNT 474 10^3/UL (140-440); RED BLOOD COUNT 3.23 10^6/ul (4.70-6.10); RED CELL DISTRIBUTION WIDTH 17.1 % (11.5-14.5); UNCORRECTED WBC 15.6 10^3/ul (4.8-10.8); WHITE BLOOD COUNT 15.6 10^3/ul (4.8-10.8)
[2016-03-06 07:22] LABS: CONDITION 1; LH ANALYZER COMMENTS 1
[2016-03-06 07:56] LABS: AADO2 Arterial 183.9 mmHg (7.0-24.0); Allen Test ACCEPTAB; Arterial Base Excess 1.9 mmol/L (-3.0-3); Arterial COHb 0.3 % (0.0-3.0); Arterial Fraction of Oxyhgb 97.3 % (93.0-99.0); Arterial HCO3 25.4 mmol/L (22.0-26.0); Arterial MetHb 0.6 % (0.0-1.5); Arterial Total Hemglobin 7.9 g/dl (12.0-18.0); MODE VENT - AC
[2016-03-06] MEDS ORDERED: GLUCOSE GEL 15 GRAM TUBE NGT PRN (08:45)
--- NOTE | 2016-03-06 08:51 | RADRPT ---
PROCEDURE: XR Chest. CLINICAL INDICATION: Pneumonia, congestive heart failure. TECHNIQUE: Single frontal view of the chest was obtained. COMPARISON: 03/05/2016. FINDINGS: Cardiac silhouette is slightly increased in size with atherosclerotic unfolding of the thoracic aort a. There is an increase in pulmonary vascular congestion. The mixed bilateral interstitial and jyoti eolar infiltrates have increased slightly. There is a small right pleural effusion. Endotracheal t ube, right PICC line and nasogastric tubes appear unchanged. IMPRESSION: 1. Interval increase in pulmonary edema. 2. Small right pleural effusion. 3. Aortic atherosclerosis. RPTAT: [facility] Physician Lopez Date Time Electronically viewed and signed by Darren Zimmer Physician on 03/06/2016 08:51 /
[2016-03-06] MEDS: LEVETIRACETAM IV 1,000 MG in SOD CHLORIDE 0.9% 100 ML IVPB SCH ×2 (09:44→21:23)
[2016-03-06] MEDS: FERROUS SULFATE 60 MG/ML 5ML CUP GTB SCH ×2 (09:44→21:23)
[2016-03-06] MEDS: FUROSEMIDE 20 MG INJ IV SCH (09:44)
[2016-03-06] MEDS: MINOXIDIL 2.5 MG TAB NGT SCH ×2 (09:45→21:22)
[2016-03-06] MEDS: AMLODIPINE 5 MG TAB NGT SCH ×2 (09:45→21:22)
--- NOTE | 2016-03-06 09:52 | CONS ---
Date/Time of Note Date/Time of Note DATE: 03/06/16 TIME: 09:46 Assessment/Plan Assessment/Plan Chief Complaint/Hosp Course Imp: 1.HTN emergency-NL EF by echo this admit-under reasonable control on PO medications only. Off all drips but having increased uncontrolled BP when agitated/stimulated or on sedation vacation 2.Aortic dissection-type B again demonstrated by Chest CT 02/29/16 3.abnl ecg-lateral TWI-negative troponin x 3 since admit 4.anxiety 5.ARF 6. Pericardial effusion by echo-small with NL EF 7.Encephalopathic 8.Pulmonary embolism 9.Tachycardia-S tach-only when on sedation vacation 10.CHF-diastolic acute Recc: -Tele in ICU -Follow volume status closely -serial ecg's -Continue PO BB/CCB/minoxindil/hydralazine and follow bp closely and will continue to make again slight increase to PO BB/hydralazine to improve BP as necessary -ongoing surgical follow-up -f/u MS closely -Vent weaning as tolerated attempting again today after weaning halted by bradycardia -Lasix diuresis Problems: Consultation Date/Type/Reason Admit Date/Time Feb 18, 2016 at 09:14 Initial Consult Date 02/19/2016 Type of Consultation: Cardiology Reason for Consultation HTN/dissection Referring Provider: ANAYA BREWSTER MD, [facility] Exam/Review of Systems Vital Signs Vitals Vital Signs Date Time Temp Pulse Resp B/P Pulse Ox O2 Delivery O2 Flow Rate FiO2 03/06/16 08:47 71 03/06/16 07:45 98.4 20 162/81 100 Mechanical Ventilator 03/06/16 05:00 50 Intake and Output 03/05/16 03/05/16 03/06/16 15:00 23:00 07:00 Intake Total 432.4 ml 819.0 ml 1107.3 ml Output Total 1645 ml 510 ml 490 ml Balance -1212.6 ml 309.0 ml 617.3 ml Exam Review of Systems: CONSTITUTIONAL: No fevers, chills. PULMONARY: No sob CARDIOVASCULAR: No chest pain/palpitations GASTROINTESTINAL: No nausea/vomiting. GENITOURINARY: No hematuria/dysuria. MUSCULOSKELETAL: No myagias/arthalgias. PSYCHIATRIC: The patient denies depression. NEUROLOGIC: No weakness Constitutional: alert Psych: no complaints Head: normocephalic ENMT: mucosa pink and moist Neck: jvd (9 cm water), supple Respiratory: other (upper airway rhochi) Cardiovascular: regular rate and rhythm Gastrointestinal: non-tender, soft Musculoskeletal: muscle tone (normal) Extremities: pitting pedal edema (trace/Bilateral) Neurological: other (No focal deficits) Results Result Diagram: 03/06/16 0443 03/06/16 0443 Results 24 hrs Laboratory Tests Test 03/05/16 11:47 03/05/16 12:30 03/05/16 13:25 03/05/16 18:35 Bedside Glucose 132 165 Arterial Blood HCO3 23.0 Arterial Blood Base Excess -0.5 Arterial Blood Oxygen Saturation 95.2 Jovanny Test ACCEPTAB Arterial Blood Gas Puncture Site Right Radial Arterial Blood Carboxyhemoglobin 0.3 Arterial Blood Date Drawn 03/05/2016 12:40:28 PM Arterial Blood Methemoglobin 0.3 Arterial Blood pCO2 (Temp correct) 33.3 L Arterial Blood pH (Temp corrected) 7.457 H Arterial Blood pO2 (Temp corrected) 78.4 L Blood Gas A-a O2 Differential 96.4 H Blood Gas Actual Respiration Rate 30 Blood Gas Low PEEP Setting 5.0 Blood Gas Modality VENT - CPAP Blood Gas Notified Time 03/05/2016 12:57:53 PM Blood Gas Notified Whom JLD Blood Gas Pressure Support 10 Blood Gas Specimen Source Blood arterial Blood Gas Temperature 37.0 FiO2 30.0 Oxyhemoglobin Percent 94.6 Total Hemoglobin 10.2 L Activated Partial Thromboplast Time 56.0 H Test 03/05/16 21:00 03/06/16 00:35 03/06/16 03:00 03/06/16 04:43 Activated Partial Thromboplast Time 78.2 *H 90.3 *H Bedside Glucose 157 Anion Gap 14 Basophils # 0.1 Basophils % 0.7 Blood Morphology Comment Blood Urea Nitrogen 46 H Calcium Level 9.3 Carbon Dioxide Level 29 Chloride Level 109 Creatinine 1.97 H Eosinophils # 0.3 Eosinophils % 2.1 Glucose Level 144 Hematocrit 26.2 L Hemoglobin 8.6 L Lymphocytes # 1.6 Lymphocytes % 10.2 L Mean Corpuscular Hemoglobin 26.7 L Mean Corpuscular Hemoglobin Concent 32.9 Mean Corpuscular Volume 81.3 L Mean Platelet Volume 8.7 Monocytes # 1.2 H Monocytes % 7.7 Neutrophils # 12.4 H Neutrophils % 79.3 H Nucleated Red Blood Cells # 0.0 Nucleated Red Blood Cells % 0.0 Platelet Count 474 H Potassium Level 3.7 Red Blood Count 3.23 L Red Cell Distribution Width 17.1 H Sodium Level 148 H White Blood Count 15.6 H Test 03/06/16 06:02 03/06/16 07:00 Bedside Glucose 142 Arterial Blood HCO3 25.4 Arterial Blood Base Excess 1.9 Arterial Blood Oxygen Saturation 98.2 H Jovanny Test ACCEPTAB Arterial Blood Gas Puncture Site Right Radial Arterial Blood Carboxyhemoglobin 0.3 Arterial Blood Date Drawn 03/06/2016 7:28:23 AM Arterial Blood Methemoglobin 0.6 Arterial Blood pCO2 (Temp correct) 35.0 Arterial Blood pH (Temp corrected) 7.479 H Arterial Blood pO2 (Temp corrected) 133.2 H Blood Gas A-a O2 Differential 183.9 H Blood Gas Actual Respiration Rate 20 Blood Gas Low PEEP Setting 5.0 Blood Gas Modality VENT - AC Blood Gas Notified Time 03/06/2016 7:55:58 AM Blood Gas Notified Whom JLD Blood Gas Respiration Rate 20.0 Blood Gas Specimen Source Blood arterial Blood Gas Temperature 37.0 Blood Gas Tidal Volume 550.0 FiO2 50.0 Oxyhemoglobin Percent 97.3 Total Hemoglobin 7.9 L Medications Medications Current Medications Ondansetron HCl (Zofran Inj) 4 mg Q6H PRN IV NAUSEA AND/OR VOMITING; Start 02/18/16 at 09:30 Acetaminophen (Tylenol Supp) 650 mg Q4H PRN ND PAIN LEVEL 1-3 OR FEVER Last administered on 02/24/16at 14:32; Admin Dose 650 MG; Start 02/18/16 at 09:30 Morphine Sulfate (morphine) 2 mg Q4H PRN IV PAIN LEVEL 7-10 Last administered on 02/28/16at 09:42; Admin Dose 2 MG; Start 02/18/16 at 09:30 Bisacodyl (Dulcolax Supp) 10 mg DAILY PRN ND CONSTIPATION; Start 02/18/16 at 09 :30 Pantoprazole (Protonix Iv) 40 mg DAILY@06 IV Last administered on 03/06/16at 05 :58; Admin Dose 40 MG; Start 02/19/16 at 06:00 Hydralazine HCl (Apresoline) 10 mg Q6H PRN IV ELEVATED SYSTOLIC BP Last administered on 03/06/16at 04:38; Admin Dose 10 MG; Start 02/20/16 at 22:00 Metoprolol Tartrate 5 mg 5 mg Q4H PRN IV HR>55 Hold SBP<100 Last administered on 03/06/16at 00:48; Admin Dose 5 MG; Start 02/21/16 at 11:30 Propofol 100 ml @ 3.189 mls/ hr Q12H IV Last administered on 03/02/16at 08:30 ; Admin Dose 12.756 MLS/HR; Start 02/21/16 at 16:30 Fentanyl/Dextrose (D5W) 100 ml @ 0 mls/hr TITRATE IV Last administered on 03/06at 01:43; Admin Dose 10 MLS/HR; Start 02/21/16 at 16:30 IV Flush (NS 10 ml) 10 ml PRN PRN IV IV PROTOCOL; Start 02/21/16 at 18:30 Ferrous Sulfate (Feosol Liquid Cup) 300 mg BID GTB Last administered on at 21:06; Admin Dose 300 MG; Start 02/22/16 at 10:00 Lorazepam (Ativan) 1 mg Q1H PRN IV ANXIETY Last administered on 03/06/16at 04: 37; Admin Dose 1 MG; Start 02/23/16 at 11:30 Miscellaneous Information 1 ea NOTE XX ; Start 02/23/16 at 23:15 Glucose (Glutose) 22.5 gm Q15M PRN PO DECREASED GLUCOSE; Start 02/23/16 at 23: 15 Dextrose (D50w Syringe) 25 ml Q15M PRN IV DECREASED GLUCOSE; Start 02/23/16 at 23:15 Dextrose (D50w Syringe) 50 ml Q15M PRN IV DECREASED GLUCOSE; Start 02/23/16 at 23:15 Glucagon (Glucagen) 1 mg Q15M PRN IM DECREASED GLUCOSE; Start 02/23/16 at 23:15 Glucose 15 gm 15 gm Q15M PRN BUCCAL DECREASED GLUCOSE; Start 02/23/16 at 23:15 Levetiracetam/ Sodium Chloride (Keppra Iv/NS) 110 ml @ 440 mls/hr BID IVPB Last administered on 03/05/16at 21:08; Admin Dose 440 MLS/HR; Start 02/24/16 at 01:00 Insulin Aspart (Novolog Insulin Pen) NOVOLOG *MILD* ALGORI... Q6 SC Last administered on 03/06/16at 06:04; Admin Dose 1 UNIT; Start 02/26/16 at 18:00 Furosemide 20 mg 20 mg DAILY IV Last administered on 03/05/16at 08:47; Admin Dose 20 MG; Start 02/27/16 at 09:00 Midazolam HCl 50 mg/Dextrose 50 ml @ 1 mls/hr TITRATE IV ; Start 03/03/16 at 11 :30 Dexmedetomidine HCl/Sodium Chloride (Precedex/NS) 50 ml @ 5.3 mls/hr TITRATE IV Last administered on 03/06/16at 07:46; Admin Dose 5.3 MLS/HR; Start at 12:30 Metoclopramide HCl (Reglan) 10 mg Q6 IV Last administered on 03/06/16at 05:58; Admin Dose 10 MG; Start 03/04/16 at 06:00 Acetaminophen (Tylenol Tab) 650 mg Q6H PRN NGT PAIN AND OR ELEVATED TEMP; Start 03/06/16 at 11:30 Amlodipine Besylate (Norvasc) 5 mg BID NGT ; Start 03/06/16 at 09:00 Glucose (Glutose) 15 gm Q15M PRN NGT DECREASED GLUCOSE; Start 03/06/16 at 08: 45 Hydralazine HCl (Apresoline) 100 mg Q8 NGT ; Start 03/06/16 at 14:00 Metoprolol Tartrate (Lopressor) 150 mg Q8 NGT ; Start 03/06/16 at 14:00 Metronidazole (Flagyl) 500 mg Q8 NGT ; Start 03/06/16 at 14:00 Minoxidil (Loniten) 5 mg BID NGT ; Start 03/06/16 at 09:00 JUNAID PAZ Mar 06, 2016 09:52
--- NOTE | 2016-03-06 09:53 | CONS ---
Date/Time of Note Date/Time of Note DATE: 03/06/16 TIME: 09:50 Consult Date/Type/Reason Admit Date/Time Feb 18, 2016 at 09:14 Type of Consultation: Pulmonary Ordering Provider: ANAYA BREWSTER MD, [facility] Subjective Patient tolerated 2 hour CPAP trial yesterday at the end of which he became bradycardic and diaphoretic Placed back on assist-control mechanical ventilation overnight Continues Precedex this morning Objective Vital Signs Date Time Temp Pulse Resp B/P Pulse Ox O2 Delivery O2 Flow Rate FiO2 03/06/16 08:47 71 03/06/16 07:45 98.4 20 162/81 100 Mechanical Ventilator 03/06/16 05:00 50 Intake and Output 03/05/16 03/05/16 03/06/16 15:00 23:00 07:00 Intake Total 432.4 ml 819.0 ml 1107.3 ml Output Total 1645 ml 510 ml 490 ml Balance -1212.6 ml 309.0 ml 617.3 ml PHYSICAL EXAMINATION GENERAL: A well-nourished well-developed gentleman intubated on mechanical ventilation. VITAL SIGNS: see below. HEENT: Pupils equal, round, and reactive to light. CARDIAC: S1, S2, tachycardia. CHEST: Diminished air entry bilaterally. ABDOMEN: Mildly distended. No bowel sounds. EXTREMITIES: No cyanosis, clubbing edema +1 upper extremities NEUROLOGIC: generalized weakness. Results/Medications Result Diagram: 03/06/16 0443 03/06/16 0443 Results 24 hrs Laboratory Tests Test 03/05/16 11:47 03/05/16 12:30 03/05/16 13:25 03/05/16 18:35 Bedside Glucose 132 165 Arterial Blood HCO3 23.0 Arterial Blood Base Excess -0.5 Arterial Blood Oxygen Saturation 95.2 Jovanny Test ACCEPTAB Arterial Blood Gas Puncture Site Right Radial Arterial Blood Carboxyhemoglobin 0.3 Arterial Blood Date Drawn 03/05/2016 12:40:28 PM Arterial Blood Methemoglobin 0.3 Arterial Blood pCO2 (Temp correct) 33.3 L Arterial Blood pH (Temp corrected) 7.457 H Arterial Blood pO2 (Temp corrected) 78.4 L Blood Gas A-a O2 Differential 96.4 H Blood Gas Actual Respiration Rate 30 Blood Gas Low PEEP Setting 5.0 Blood Gas Modality VENT - CPAP Blood Gas Notified Time 03/05/2016 12:57:53 PM Blood Gas Notified Whom JLD Blood Gas Pressure Support 10 Blood Gas Specimen Source Blood arterial Blood Gas Temperature 37.0 FiO2 30.0 Oxyhemoglobin Percent 94.6 Total Hemoglobin 10.2 L Activated Partial Thromboplast Time 56.0 H Test 03/05/16 21:00 03/06/16 00:35 03/06/16 03:00 03/06/16 04:43 Activated Partial Thromboplast Time 78.2 *H 90.3 *H Bedside Glucose 157 Anion Gap 14 Basophils # 0.1 Basophils % 0.7 Blood Morphology Comment Blood Urea Nitrogen 46 H Calcium Level 9.3 Carbon Dioxide Level 29 Chloride Level 109 Creatinine 1.97 H Eosinophils # 0.3 Eosinophils % 2.1 Glucose Level 144 Hematocrit 26.2 L Hemoglobin 8.6 L Lymphocytes # 1.6 Lymphocytes % 10.2 L Mean Corpuscular Hemoglobin 26.7 L Mean Corpuscular Hemoglobin Concent 32.9 Mean Corpuscular Volume 81.3 L Mean Platelet Volume 8.7 Monocytes # 1.2 H Monocytes % 7.7 Neutrophils # 12.4 H Neutrophils % 79.3 H Nucleated Red Blood Cells # 0.0 Nucleated Red Blood Cells % 0.0 Platelet Count 474 H Potassium Level 3.7 Red Blood Count 3.23 L Red Cell Distribution Width 17.1 H Sodium Level 148 H White Blood Count 15.6 H Test 03/06/16 06:02 03/06/16 07:00 Bedside Glucose 142 Arterial Blood HCO3 25.4 Arterial Blood Base Excess 1.9 Arterial Blood Oxygen Saturation 98.2 H Jovanny Test ACCEPTAB Arterial Blood Gas Puncture Site Right Radial Arterial Blood Carboxyhemoglobin 0.3 Arterial Blood Date Drawn 03/06/2016 7:28:23 AM Arterial Blood Methemoglobin 0.6 Arterial Blood pCO2 (Temp correct) 35.0 Arterial Blood pH (Temp corrected) 7.479 H Arterial Blood pO2 (Temp corrected) 133.2 H Blood Gas A-a O2 Differential 183.9 H Blood Gas Actual Respiration Rate 20 Blood Gas Low PEEP Setting 5.0 Blood Gas Modality VENT - AC Blood Gas Notified Time 03/06/2016 7:55:58 AM Blood Gas Notified Whom JLD Blood Gas Respiration Rate 20.0 Blood Gas Specimen Source Blood arterial Blood Gas Temperature 37.0 Blood Gas Tidal Volume 550.0 FiO2 50.0 Oxyhemoglobin Percent 97.3 Total Hemoglobin 7.9 L Medications Current Medications Ondansetron HCl (Zofran Inj) 4 mg Q6H PRN IV NAUSEA AND/OR VOMITING; Start 02/18/16 at 09:30 Acetaminophen (Tylenol Supp) 650 mg Q4H PRN MA PAIN LEVEL 1-3 OR FEVER Last administered on 02/24/16at 14:32; Admin Dose 650 MG; Start 02/18/16 at 09:30 Morphine Sulfate (morphine) 2 mg Q4H PRN IV PAIN LEVEL 7-10 Last administered on 02/28/16at 09:42; Admin Dose 2 MG; Start 02/18/16 at 09:30 Bisacodyl (Dulcolax Supp) 10 mg DAILY PRN MA CONSTIPATION; Start 02/18/16 at 09 :30 Pantoprazole (Protonix Iv) 40 mg DAILY@06 IV Last administered on 03/06/16at 05 :58; Admin Dose 40 MG; Start 02/19/16 at 06:00 Hydralazine HCl (Apresoline) 10 mg Q6H PRN IV ELEVATED SYSTOLIC BP Last administered on 03/06/16at 04:38; Admin Dose 10 MG; Start 02/20/16 at 22:00 Metoprolol Tartrate 5 mg 5 mg Q4H PRN IV HR>55 Hold SBP<100 Last administered on 03/06/16at 00:48; Admin Dose 5 MG; Start 02/21/16 at 11:30 Propofol 100 ml @ 3.189 mls/ hr Q12H IV Last administered on 03/02/16at 08:30 ; Admin Dose 12.756 MLS/HR; Start 02/21/16 at 16:30 Fentanyl/Dextrose (D5W) 100 ml @ 0 mls/hr TITRATE IV Last administered on 03/06at 01:43; Admin Dose 10 MLS/HR; Start 02/21/16 at 16:30 IV Flush (NS 10 ml) 10 ml PRN PRN IV IV PROTOCOL; Start 02/21/16 at 18:30 Ferrous Sulfate (Feosol Liquid Cup) 300 mg BID GTB Last administered on at 21:06; Admin Dose 300 MG; Start 02/22/16 at 10:00 Lorazepam (Ativan) 1 mg Q1H PRN IV ANXIETY Last administered on 03/06/16at 04: 37; Admin Dose 1 MG; Start 02/23/16 at 11:30 Miscellaneous Information 1 ea NOTE XX ; Start 02/23/16 at 23:15 Glucose (Glutose) 22.5 gm Q15M PRN PO DECREASED GLUCOSE; Start 02/23/16 at 23: 15 Dextrose (D50w Syringe) 25 ml Q15M PRN IV DECREASED GLUCOSE; Start 02/23/16 at 23:15 Dextrose (D50w Syringe) 50 ml Q15M PRN IV DECREASED GLUCOSE; Start 02/23/16 at 23:15 Glucagon (Glucagen) 1 mg Q15M PRN IM DECREASED GLUCOSE; Start 02/23/16 at 23:15 Glucose 15 gm 15 gm Q15M PRN BUCCAL DECREASED GLUCOSE; Start 02/23/16 at 23:15 Levetiracetam/ Sodium Chloride (Keppra Iv/NS) 110 ml @ 440 mls/hr BID IVPB Last administered on 03/05/16at 21:08; Admin Dose 440 MLS/HR; Start 02/24/16 at 01:00 Insulin Aspart (Novolog Insulin Pen) NOVOLOG *MILD* ALGORI... Q6 SC Last administered on 03/06/16at 06:04; Admin Dose 1 UNIT; Start 02/26/16 at 18:00 Furosemide 20 mg 20 mg DAILY IV Last administered on 03/05/16at 08:47; Admin Dose 20 MG; Start 02/27/16 at 09:00 Midazolam HCl 50 mg/Dextrose 50 ml @ 1 mls/hr TITRATE IV ; Start 03/03/16 at 11 :30 Dexmedetomidine HCl/Sodium Chloride (Precedex/NS) 50 ml @ 5.3 mls/hr TITRATE IV Last administered on 03/06/16at 07:46; Admin Dose 5.3 MLS/HR; Start at 12:30 Metoclopramide HCl (Reglan) 10 mg Q6 IV Last administered on 03/06/16at 05:58; Admin Dose 10 MG; Start 03/04/16 at 06:00 Acetaminophen (Tylenol Tab) 650 mg Q6H PRN NGT PAIN AND OR ELEVATED TEMP; Start 03/06/16 at 11:30 Amlodipine Besylate (Norvasc) 5 mg BID NGT ; Start 03/06/16 at 09:00 Glucose (Glutose) 15 gm Q15M PRN NGT DECREASED GLUCOSE; Start 03/06/16 at 08: 45 Hydralazine HCl (Apresoline) 100 mg Q8 NGT ; Start 03/06/16 at 14:00 Metoprolol Tartrate (Lopressor) 150 mg Q8 NGT ; Start 03/06/16 at 14:00 Metronidazole (Flagyl) 500 mg Q8 NGT ; Start 03/06/16 at 14:00 Minoxidil (Loniten) 5 mg BID NGT ; Start 03/06/16 at 09:00 Assessment/Plan Chief Complaint/Hosp Course IMPRESSION 1. Hypertensive Emergency 2. Type B Aortic Dissection. No evidence on proximal dissection on recent CT neck and chest, 3. Encephalopathy, possibly secondary to antihypertensive medications. 4. Aspiration pneumonia with hypoxemic respiratory failure.Possible left effusion. New PE. 5. FARRUKH RECS: 1. Vent support will repeat CPAP weaning trial today 2. Continue BP control 3. Sedation vacation as tolerated. 4. Replete lytes 5. Am CXR/ABG 6. Abx per ID 7. Anticoagulation per thoracic surgery 8. Discussed with vascular surgery not for intervention at this point prognosis guarded Will require tracheostomy fails weaning trials Problems: ANAYA BREWSTER MD, [facility] Mar 06, 2016 09:53
[2016-03-06] MEDS ORDERED: FUROSEMIDE 40 MG INJ IV ONE (10:00)
--- NOTE | 2016-03-06 10:31 | PN ---
Date/Time of Note Date/Time of Note DATE: 03/06/16 TIME: 10:30 Assessment/Plan Lines/Catheters IV Catheter Type (from Nrsg): PICC Line Smalls in Place (from Nrsg): Yes Assessment/Plan Chief Complaint/Hosp Course IMPRESSION: Type B aortic dissection. The patient's blood pressure more controlled RECOMMENDATIONS: At this time, we would continue blood pressure management, monitor vital signs and laboratory values in an intensive care unit setting. Vent support per pulm medicine No plan for surgery. Abx Repeat CTA Dissection involving the thoracic aorta arising distal to the origin of the left subclavian artery and extending into the abdominal aorta. The distal extent was not included on the study. Flow within both true and false lumen to the level of the celiac artery. Would continue BP control , Vent support Type B aortic dissection PE, OK to start anticoagulation no plan for surgery at this time trial of CPAP weaning per pulm medicine I discussed with the patient and Dr. Mccabe and staff Problems: Subjective 24 Hr Interval Summary Constitutional: improved Pain Control: mild Exam/Review of Systems Vital Signs Vitals Vital Signs Date Time Temp Pulse Resp B/P Pulse Ox O2 Delivery O2 Flow Rate FiO2 03/06/16 08:47 71 03/06/16 07:45 98.4 20 162/81 100 Mechanical Ventilator 03/06/16 05:00 50 Intake and Output 03/05/16 03/05/16 03/06/16 15:00 23:00 07:00 Intake Total 432.4 ml 819.0 ml 1107.3 ml Output Total 1645 ml 510 ml 490 ml Balance -1212.6 ml 309.0 ml 617.3 ml Exam Eyes: EOMI, nl conjunctiva, nl lids, nl sclera ENMT: mucosa pink and moist, nl external ears & nose, nl lips & teeth, nl nasal mucosa & septum Neck: non-tender, supple Respiratory: clear to auscultation, normal air movement Cardiovascular: nl pulses, regular rate and rhythm Results Result Diagram: 03/06/1644203/06/16442 KAYLYN RADFORD MD Mar 06, 2016 10:31
--- NOTE | 2016-03-06 11:16 | PN ---
Date/Time of Note Date/Time of Note DATE: 03/06/16 TIME: 11:07 Assessment/Plan VTE Prophylaxis VTE Prophylaxis Intervention: SCD's Lines/Catheters IV Catheter Type (from Nrs): PICC Line Central line still needed: Yes Urinary Cath still in place: Yes Reason Cath still needed: other (indicate) (monitor I&O) Assessment/Plan Chief Complaint/Hosp Course Assessment and plan 1. Type B aortic dissection. Continue blood pressure control. Patient seen by vascular surgeon. No plan for surgical intervention at this time. Remains on oral antihypertensives 2. Accelerated hypertension. Still remains elevated. Continue control with oral antihypertensives. Follow-up with cardiology recommendations 3. Acute hypoxic respiratory failure. Suspect secondary to aspiration.. Continue ventilator support as per pulmonary. On CPAP trial at this time. Assessment ability for vent liberation 4. Aspiration pneumonia. Continue antibiotics as per infectious disease consult. Continue aspiration precautions 5. Acute kidney injury, most probably secondary to hemodynamics. Nephrology following. Use nephrotoxic drugs with caution. Monitor renal panel 6. Left cephalic vein thrombosis. Continue elevation. Noted to be superficial 7. Pulmonary embolism (02/29/2016). On heparin at this time. Continue with thoracic surgeon recommendations 8. Iron deficiency anemia. Iron panel showing iron deficiency. Continue iron supplements. 9. Acute encephalopathy, most probably metabolic in origin. Per EEG done on 01/2016 showed generalized bihemispheric background slowing suggestive of bihemispheric subcortical dysfunction possibly from epileptiform activity. Continue on Keppra. 10. S/P sepsis secondary to gram-positive bacteremia. Latest blood cultures are negative. On antibiotics as per infectious diseases. 12. DVT prophylaxis. heparin. 13. GERD prophylaxis. Proton pump inhibitor. Disposition and plan: Continue to assess for ability for vent liberation. continue on oral antihypertensives. Continue to monitor. continue ICU monitoring Discussed plan of care with Dr. Raymundo Critical care time: 30 minutes Problems: Subjective 24 Hr Interval Summary Free Text/Dictation remains on precedex. comfortable at this time. on cpap trial. no apparent distress Exam/Review of Systems Vital Signs Vitals Vital Signs Date Time Temp Pulse Resp B/P Pulse Ox O2 Delivery O2 Flow Rate FiO2 03/06/16 10:30 78 11 185/97 99 Mechanical Ventilator 03/06/16 07:45 98.4 03/06/16 05:00 50 Intake and Output 1203/05/16 03/06/16 15:00 23:00 07:00 Intake Total 432.4 ml 819.0 ml 1143.3 ml Output Total 1645 ml 510 ml 490 ml Balance -1212.6 ml 309.0 ml 653.3 ml Exam General: Intubated and sedated. Does awaken to verbal stimulus. No apparent distress Eyes: pupils equal round, Anicteric sclera Neck: Supple nontender, no JVD Cardiac: S1, S2 auscultated, regular rhythm and rate Pulmonary: Minimally coarse bilateral lung cabrales GI: Bowel sounds active. Slightly distended Extremities: Edema bilateral lower and upper extremities +2 Skin: Clean dry and intact Neurologic: [Intubated on light sedation Results Result Diagram: 03/06/1644203/06/16442 Results 24 hrs Laboratory Tests Test 03/05/16 11:47 03/05/16 12:30 03/05/16 13:25 03/05/16 18:35 Bedside Glucose 132 165 Arterial Blood HCO3 23.0 Arterial Blood Base Excess -0.5 Arterial Blood Oxygen Saturation 95.2 Jovanny Test ACCEPTAB Arterial Blood Gas Puncture Site Right Radial Arterial Blood Carboxyhemoglobin 0.3 Arterial Blood Date Drawn 03/05/2016 12:40:28 PM Arterial Blood Methemoglobin 0.3 Arterial Blood pCO2 (Temp correct) 33.3 L Arterial Blood pH (Temp corrected) 7.457 H Arterial Blood pO2 (Temp corrected) 78.4 L Blood Gas A-a O2 Differential 96.4 H Blood Gas Actual Respiration Rate 30 Blood Gas Low PEEP Setting 5.0 Blood Gas Modality VENT - CPAP Blood Gas Notified Time 03/05/2016 12:57:53 PM Blood Gas Notified Whom JLD Blood Gas Pressure Support 10 Blood Gas Specimen Source Blood arterial Blood Gas Temperature 37.0 FiO2 30.0 Oxyhemoglobin Percent 94.6 Total Hemoglobin 10.2 L Activated Partial Thromboplast Time 56.0 H Test 03/05/16 21:00 03/06/16 00:35 03/06/16 03:00 03/06/16 04:43 Activated Partial Thromboplast Time 78.2 *H 90.3 *H Bedside Glucose 157 Anion Gap 14 Basophils # 0.1 Basophils % 0.7 Blood Morphology Comment Blood Urea Nitrogen 46 H Calcium Level 9.3 Carbon Dioxide Level 29 Chloride Level 109 Creatinine 1.97 H Eosinophils # 0.3 Eosinophils % 2.1 Glucose Level 144 Hematocrit 26.2 L Hemoglobin 8.6 L Lymphocytes # 1.6 Lymphocytes % 10.2 L Mean Corpuscular Hemoglobin 26.7 L Mean Corpuscular Hemoglobin Concent 32.9 Mean Corpuscular Volume 81.3 L Mean Platelet Volume 8.7 Monocytes # 1.2 H Monocytes % 7.7 Neutrophils # 12.4 H Neutrophils % 79.3 H Nucleated Red Blood Cells # 0.0 Nucleated Red Blood Cells % 0.0 Platelet Count 474 H Potassium Level 3.7 Red Blood Count 3.23 L Red Cell Distribution Width 17.1 H Sodium Level 148 H White Blood Count 15.6 H Test 03/06/16 06:02 03/06/16 07:00 Bedside Glucose 142 Arterial Blood HCO3 25.4 Arterial Blood Base Excess 1.9 Arterial Blood Oxygen Saturation 98.2 H Jovanny Test ACCEPTAB Arterial Blood Gas Puncture Site Right Radial Arterial Blood Carboxyhemoglobin 0.3 Arterial Blood Date Drawn 03/06/2016 7:28:23 AM Arterial Blood Methemoglobin 0.6 Arterial Blood pCO2 (Temp correct) 35.0 Arterial Blood pH (Temp corrected) 7.479 H Arterial Blood pO2 (Temp corrected) 133.2 H Blood Gas A-a O2 Differential 183.9 H Blood Gas Actual Respiration Rate 20 Blood Gas Low PEEP Setting 5.0 Blood Gas Modality VENT - AC Blood Gas Notified Time 03/06/2016 7:55:58 AM Blood Gas Notified Whom JLD Blood Gas Respiration Rate 20.0 Blood Gas Specimen Source Blood arterial Blood Gas Temperature 37.0 Blood Gas Tidal Volume 550.0 FiO2 50.0 Oxyhemoglobin Percent 97.3 Total Hemoglobin 7.9 L Medications Medications Current Medications Ondansetron HCl (Zofran Inj) 4 mg Q6H PRN IV NAUSEA AND/OR VOMITING; Start 02/18/16 at 09:30 Acetaminophen (Tylenol Supp) 650 mg Q4H PRN [place] PAIN LEVEL 1-3 OR FEVER Last administered on 02/24/16at 14:32; Admin Dose 650 MG; Start 02/18/16 at 09:30 Morphine Sulfate (morphine) 2 mg Q4H PRN IV PAIN LEVEL 7-10 Last administered on 02/28/16at 09:42; Admin Dose 2 MG; Start 02/18/16 at 09:30 Bisacodyl (Dulcolax Supp) 10 mg DAILY PRN [place] CONSTIPATION; Start 02/18/16 at 09 :30 Pantoprazole (Protonix Iv) 40 mg DAILY@06 IV Last administered on 03/06/16at 05 :58; Admin Dose 40 MG; Start 02/19/16 at 06:00 Hydralazine HCl (Apresoline) 10 mg Q6H PRN IV ELEVATED SYSTOLIC BP Last administered on 03/06/16at 10:58; Admin Dose 10 MG; Start 02/20/16 at 22:00 Metoprolol Tartrate 5 mg 5 mg Q4H PRN IV HR>55 Hold SBP<100 Last administered on 03/06/16at 00:48; Admin Dose 5 MG; Start 02/21/16 at 11:30 Propofol 100 ml @ 3.189 mls/ hr Q12H IV Last administered on 03/02/16at 08:30 ; Admin Dose 12.756 MLS/HR; Start 02/21/16 at 16:30 Fentanyl/Dextrose (D5W) 100 ml @ 0 mls/hr TITRATE IV Last administered on 03/06at 01:43; Admin Dose 10 MLS/HR; Start 02/21/16 at 16:30 IV Flush (NS 10 ml) 10 ml PRN PRN IV IV PROTOCOL; Start 02/21/16 at 18:30 Ferrous Sulfate (Feosol Liquid Cup) 300 mg BID GTB Last administered on at 09:44; Admin Dose 300 MG; Start 02/22/16 at 10:00 Lorazepam (Ativan) 1 mg Q1H PRN IV ANXIETY Last administered on 03/06/16at 04: 37; Admin Dose 1 MG; Start 02/23/16 at 11:30 Miscellaneous Information 1 ea NOTE XX ; Start 02/23/16 at 23:15 Glucose (Glutose) 22.5 gm Q15M PRN PO DECREASED GLUCOSE; Start 02/23/16 at 23: 15 Dextrose (D50w Syringe) 25 ml Q15M PRN IV DECREASED GLUCOSE; Start 02/23/16 at 23:15 Dextrose (D50w Syringe) 50 ml Q15M PRN IV DECREASED GLUCOSE; Start 02/23/16 at 23:15 Glucagon (Glucagen) 1 mg Q15M PRN IM DECREASED GLUCOSE; Start 02/23/16 at 23:15 Glucose 15 gm 15 gm Q15M PRN BUCCAL DECREASED GLUCOSE; Start 02/23/16 at 23:15 Levetiracetam/ Sodium Chloride (Keppra Iv/NS) 110 ml @ 440 mls/hr BID IVPB Last administered on 03/06/16at 09:44; Admin Dose 440 MLS/HR; Start 02/24/16 at 01:00 Insulin Aspart (Novolog Insulin Pen) NOVOLOG *MILD* ALGORI... Q6 SC Last administered on 03/06/16at 06:04; Admin Dose 1 UNIT; Start 02/26/16 at 18:00 Furosemide 20 mg 20 mg DAILY IV Last administered on 03/06/16at 09:44; Admin Dose 20 MG; Start 02/27/16 at 09:00 Midazolam HCl 50 mg/Dextrose 50 ml @ 1 mls/hr TITRATE IV ; Start 03/03/16 at 11 :30 Dexmedetomidine HCl/Sodium Chloride (Precedex/NS) 50 ml @ 5.3 mls/hr TITRATE IV Last administered on 03/06/16at 07:46; Admin Dose 5.3 MLS/HR; Start at 12:30 Metoclopramide HCl (Reglan) 10 mg Q6 IV Last administered on 03/06/16at 05:58; Admin Dose 10 MG; Start 03/04/16 at 06:00 Acetaminophen (Tylenol Tab) 650 mg Q6H PRN NGT PAIN AND OR ELEVATED TEMP; Start 03/06/16 at 11:30 Amlodipine Besylate (Norvasc) 5 mg BID NGT Last administered on 03/06/16at 09: 45; Admin Dose 5 MG; Start 03/06/16 at 09:00 Glucose (Glutose) 15 gm Q15M PRN NGT DECREASED GLUCOSE; Start 03/06/16 at 08: 45 Hydralazine HCl (Apresoline) 100 mg Q8 NGT ; Start 03/06/16 at 14:00 Metoprolol Tartrate (Lopressor) 150 mg Q8 NGT ; Start 03/06/16 at 14:00 Metronidazole (Flagyl) 500 mg Q8 NGT ; Start 03/06/16 at 14:00 Minoxidil (Loniten) 5 mg BID NGT Last administered on 03/06/16at 09:45; Admin Dose 5 MG; Start 03/06/16 at 09:00 REJI WADE Mar 06, 2016 11:16
[2016-03-06 12:04] LABS: AADO2 Arterial 135.3 mmHg (7.0-24.0); Allen Test ACCEPTAB; Arterial Base Excess -0.7 mmol/L (-3.0-3); Arterial COHb 0.3 % (0.0-3.0); Arterial HCO3 23.4 mmol/L (22.0-26.0); Arterial MetHb 0.3 % (0.0-1.5); Arterial Total Hemglobin 10.5 g/dl (12.0-18.0); Blood Gas PS 10; MODE VENT - CPAP
[2016-03-06] MEDS ORDERED: METOPROLOL 25 MG TAB NGT SCH (14:00)
[2016-03-06] MEDS: metroNIDAZOLE 500 MG TAB NGT SCH ×2 (14:18→21:21)
[2016-03-06] MEDS: METOPROLOL 100 MG TAB NGT SCH ×2 (14:19→21:22)
--- NOTE | 2016-03-06 16:48 | CONS ---
Date/Time of Note Date/Time of Note DATE: 03/06/16 TIME: 16:47 Assessment/Plan Assessment/Plan Chief Complaint/Hosp Course Assessment/Plan 1. Acute kidney injury, likely secondary to acute tubular necrosis from contrast-induced nephropathy and also secondary to ischemic acute tubular necrosis from aortic dissection. 2. A type B [place] aortic dissection. 3. Hypertension 4. acute resp failiure intubated on ventilator 5 EDEMA 6 hypernatremia BETTER plan ck lytes LASIX PRN CK bmp Problems: Consultation Date/Type/Reason Admit Date/Time Feb 18, 2016 at 09:14 Initial Consult Date 02/26/16 Type of Consultation: renal Referring Provider: [facility]NA[facility] BRE[facility]STER [facility] Interval Summary Constitutional: other (on vent awake) Exam/Review of Systems Vital Signs Vitals Vital Signs Date Time Temp Pulse Resp B/P Pulse Ox O2 Delivery O2 Flow Rate FiO2 03/06/16 16:30 85 99 03/06/16 16:15 20 03/06/16 16:00 98.9 150/75 Mechanical Ventilator 03/06/16 12:00 40 Intake and Output 03/05/16 03/05/16 03/06/16 15:00 23:00 07:00 Intake Total 432.4 ml 819.0 ml 1143.3 ml Output Total 1645 ml 510 ml 490 ml Balance -1212.6 ml 309.0 ml 653.3 ml Exam Respiratory: diminished breath sounds Cardiovascular: regular rate and rhythm Gastrointestinal: bowel sounds (+), soft Extremities: edema (+) Neurological: other (awake+) Results Result Diagram: 03/06/16 0443 03/06/16 0443 Results 24 hrs Laboratory Tests Test 03/05/16 18:35 03/05/16 21:00 03/06/16 00:35 03/06/16 03:00 Bedside Glucose 165 157 Activated Partial Thromboplast Time 78.2 *H 90.3 *H Test 03/06/16 04:43 03/06/16 06:02 03/06/16 07:00 03/06/16 11:33 Anion Gap 14 Basophils # 0.1 Basophils % 0.7 Blood Morphology Comment Blood Urea Nitrogen 46 H Calcium Level 9.3 Carbon Dioxide Level 29 Chloride Level 109 Creatinine 1.97 H Eosinophils # 0.3 Eosinophils % 2.1 Glucose Level 144 Hematocrit 26.2 L Hemoglobin 8.6 L Lymphocytes # 1.6 Lymphocytes % 10.2 L Mean Corpuscular Hemoglobin 26.7 L Mean Corpuscular Hemoglobin Concent 32.9 Mean Corpuscular Volume 81.3 L Mean Platelet Volume 8.7 Monocytes # 1.2 H Monocytes % 7.7 Neutrophils # 12.4 H Neutrophils % 79.3 H Nucleated Red Blood Cells # 0.0 Nucleated Red Blood Cells % 0.0 Platelet Count 474 H Potassium Level 3.7 Red Blood Count 3.23 L Red Cell Distribution Width 17.1 H Sodium Level 148 H White Blood Count 15.6 H Bedside Glucose 142 138 Arterial Blood HCO3 25.4 Arterial Blood Base Excess 1.9 Arterial Blood Oxygen Saturation 98.2 H Jovanny Test ACCEPTAB Arterial Blood Gas Puncture Site Right Radial Arterial Blood Carboxyhemoglobin 0.3 Arterial Blood Date Drawn 03/06/2016 7:28:23 AM Arterial Blood Methemoglobin 0.6 Arterial Blood pCO2 (Temp correct) 35.0 Arterial Blood pH (Temp corrected) 7.479 H Arterial Blood pO2 (Temp corrected) 133.2 H Blood Gas A-a O2 Differential 183.9 H Blood Gas Actual Respiration Rate 20 Blood Gas Low PEEP Setting 5.0 Blood Gas Modality VENT - AC Blood Gas Notified Time 03/06/2016 7:55:58 AM Blood Gas Notified Whom D Blood Gas Respiration Rate 20.0 Blood Gas Specimen Source Blood arterial Blood Gas Temperature 37.0 Blood Gas Tidal Volume 550.0 FiO2 50.0 Oxyhemoglobin Percent 97.3 Total Hemoglobin 7.9 L Test 03/06/16 12:00 Arterial Blood HCO3 23.4 Arterial Blood Base Excess -0.7 Arterial Blood Oxygen Saturation 97.6 Jovanny Test ACCEPTAB Arterial Blood Gas Puncture Site Right Radial Arterial Blood Carboxyhemoglobin 0.3 Arterial Blood Date Drawn 03/06/2016 11:50:50 AM Arterial Blood Methemoglobin 0.3 Arterial Blood pCO2 (Temp correct) 36.8 Arterial Blood pH (Temp corrected) 7.422 Arterial Blood pO2 (Temp corrected) 107.6 H Blood Gas A-a O2 Differential 135.3 H Blood Gas Actual Respiration Rate 24 Blood Gas Low PEEP Setting 5.0 Blood Gas Modality VENT - CPAP Blood Gas Notified Time 03/06/2016 12:04:34 PM Blood Gas Notified Whom D Blood Gas Pressure Support 10 Blood Gas Specimen Source Blood arterial Blood Gas Temperature 37.0 FiO2 40.0 Oxyhemoglobin Percent 97.0 Total Hemoglobin 10.5 L Medications Medications Current Medications Ondansetron HCl (Zofran Inj) 4 mg Q6H PRN IV NAUSEA AND/OR VOMITING; Start 02/18/16 at 09:30 Acetaminophen (Tylenol Supp) 650 mg Q4H PRN [place] PAIN LEVEL 1-3 OR FEVER Last administered on 02/24/16at 14:32; Admin Dose 650 MG; Start 02/18/16 at 09:30 Morphine Sulfate (morphine) 2 mg Q4H PRN IV PAIN LEVEL 7-10 Last administered on 02/28/16at 09:42; Admin Dose 2 MG; Start 02/18/16 at 09:30 Bisacodyl (Dulcolax Supp) 10 mg DAILY PRN [place] CONSTIPATION; Start 02/18/16 at 09 :30 Pantoprazole (Protonix Iv) 40 mg DAILY@06 IV Last administered on 03/06/16at 05 :58; Admin Dose 40 MG; Start 02/19/16 at 06:00 Metoprolol Tartrate 5 mg 5 mg Q4H PRN IV HR>55 Hold SBP<100 Last administered on 03/06/16at 13:00; Admin Dose 5 MG; Start 02/21/16 at 11:30 Propofol 100 ml @ 3.189 mls/ hr Q12H IV Last administered on 03/02/16at 08:30 ; Admin Dose 12.756 MLS/HR; Start 02/21/16 at 16:30 Fentanyl/Dextrose (D5W) 100 ml @ 0 mls/hr TITRATE IV Last administered on 03/06at 01:43; Admin Dose 10 MLS/HR; Start 02/21/16 at 16:30 IV Flush (NS 10 ml) 10 ml PRN PRN IV IV PROTOCOL; Start 02/21/16 at 18:30 Ferrous Sulfate (Feosol Liquid Cup) 300 mg BID GTB Last administered on at 09:44; Admin Dose 300 MG; Start 02/22/16 at 10:00 Lorazepam (Ativan) 1 mg Q1H PRN IV ANXIETY Last administered on 03/06/16at 04: 37; Admin Dose 1 MG; Start 02/23/16 at 11:30 Miscellaneous Information 1 ea NOTE XX ; Start 02/23/16 at 23:15 Glucose (Glutose) 22.5 gm Q15M PRN PO DECREASED GLUCOSE; Start 02/23/16 at 23: 15 Dextrose (D50w Syringe) 25 ml Q15M PRN IV DECREASED GLUCOSE; Start 02/23/16 at 23:15 Dextrose (D50w Syringe) 50 ml Q15M PRN IV DECREASED GLUCOSE; Start 02/23/16 at 23:15 Glucagon (Glucagen) 1 mg Q15M PRN IM DECREASED GLUCOSE; Start 02/23/16 at 23:15 Glucose 15 gm 15 gm Q15M PRN BUCCAL DECREASED GLUCOSE; Start 02/23/16 at 23:15 Levetiracetam/ Sodium Chloride (Keppra Iv/NS) 110 ml @ 440 mls/hr BID IVPB Last administered on 03/06/16at 09:44; Admin Dose 440 MLS/HR; Start 02/24/16 at 01:00 Insulin Aspart (Novolog Insulin Pen) NOVOLOG *MILD* [place]I... Q6 SC Last administered on 03/06/16at 06:04; Admin Dose 1 UNIT; Start 02/26/16 at 18:00 Furosemide 20 mg 20 mg DAILY IV Last administered on 03/06/16at 09:44; Admin Dose 20 MG; Start 02/27/16 at 09:00 Midazolam HCl 50 mg/Dextrose 50 ml @ 1 mls/hr TITRATE IV ; Start 03/03/16 at 11 :30 Dexmedetomidine HCl/Sodium Chloride (Precedex/NS) 50 ml @ 5.3 mls/hr TITRATE IV Last administered on 03/06/16at 12:23; Admin Dose 5.3 MLS/HR; Start at 12:30 Metoclopramide HCl (Reglan) 10 mg Q6 IV Last administered on 03/06/16at 11:32; Admin Dose 10 MG; Start 03/04/16 at 06:00 Acetaminophen (Tylenol Tab) 650 mg Q6H PRN NGT PAIN AND OR ELEVATED TEMP; Start 03/06/16 at 11:30 Amlodipine Besylate (Norvasc) 5 mg BID NGT Last administered on 03/06/16at 09: 45; Admin Dose 5 MG; Start 03/06/16 at 09:00 Glucose (Glutose) 15 gm Q15M PRN NGT DECREASED GLUCOSE; Start 03/06/16 at 08: 45 Hydralazine HCl (Apresoline) 100 mg Q8 NGT Last administered on 03/06/16at 14: 19; Admin Dose 100 MG; Start 03/06/16 at 14:00 Metoprolol Tartrate (Lopressor) 150 mg Q8 NGT Last administered on 03/06/16at 14:19; Admin Dose 150 MG; Start 03/06/16 at 14:00 Metronidazole (Flagyl) 500 mg Q8 NGT Last administered on 03/06/16at 14:18; Admin Dose 500 MG; Start 03/06/16 at 14:00 Minoxidil (Loniten) 5 mg BID NGT Last administered on 03/06/16at 09:45; Admin Dose 5 MG; Start 03/06/16 at 09:00 Hydralazine HCl (Apresoline) 10 mg Q4H PRN IV ELEVATED SYSTOLIC BP Last administered on 03/06/16at 15:46; Admin Dose 10 MG; Start 03/06/16 at 16:00 SASHA OWEN MD Mar 06, 2016 16:48
[2016-03-06] MEDS ORDERED: hydrALAzine 20 MG INJ IV PRN (17:00)
--- NOTE | 2016-03-06 18:46 | PN ---
DATE: 03/06/2016 SUBJECTIVE: No acute events overnight per report. The patient is awake on CPAP, looks comfortable. VITAL SIGNS: T-max 100.7, T-current 98.4, pulse 84, respirations 23, blood pressure 165/97, saturat ion 100%. LABORATORY DATA: WBC 15.6, H and H 8.6 and 26.2, platelets 474, neutrophils 79.3, no bands. BUN 46 , creatinine 1.97. DIAGNOSTICS: Chest x-ray this morning revealed increased pulmonary edema. INDWELLINGS: Endotracheal tube, NG tube, Smalls catheter, rectal tube, PICC line. PHYSICAL EXAMINATION: GENERAL: This is an obese, well-developed, middle-aged -[place] man who is in no distress. HEENT: Head atraumatic, normocephalic. Sclerae anicteric. Buccal mucosa dry. NECK: Supple, trachea midline. CHEST: Rise symmetrical. Breath sounds diminished to bases. HEART: S1, S2. ABDOMEN: Soft. Bowel tones present. EXTREMITIES: Bilateral edema. ASSESSMENT: 1. Acute respiratory failure secondary to resolved pneumonia and pulmonary edema. 2. Status post sepsis. 3. Systemic inflammatory response syndrome with low grade fevers and leukocytosis, so far cultures have been negative. 4. Status epilepticus with new onset of seizures. 5. Type B aortic dissection. 6. Acute renal failure. 7. Morbid obesity. 8. Hypertension, status post hypertensive urgency. PLAN: The patient is hemodynamically stable off antibiotics, tolerates weaning trials continue obse rving and repeat cultures p.r.n. for temperature of 101 and above. Above is discussed with staff. Dictated By: HUSAM SANFORD ARCHITECTURAL DRAFTER for YESIKA LOPEZ/EFRAIN Conf#: [id number] DID#: [id number]
[2016-03-06] MEDS: ALBUTEROL/IPRATROPIUM (NEB) 3 ML AMP HHN SCH (20:17)
[2016-03-07] VITALS (43 sets, daily range): BP systolic 143–223; BP diastolic 70–145; PULSE 87–124; RESP 8–41
[2016-03-07] MEDS: METOCLOPRAMIDE 10 MG INJ IV SCH ×5 (00:13→23:51)
[2016-03-07] MEDS: METOPROLOL 5 MG INJ IV PRN ×2 (00:14→19:04)
[2016-03-07] MEDS: INSULIN ASPART [NOVOLOG] 3 ML PEN SC SCH ×5 (00:15→23:53)
[2016-03-07] MEDS: HEPARIN 25000 UNITS/250 ML 250 ML IV SCH ×3 (00:23→18:50)
[2016-03-07] MEDS: LORAZEPAM 2 MG INJ IV PRN ×3 (00:38→06:01)
[2016-03-07] MEDS: ALBUTEROL/IPRATROPIUM (NEB) 3 ML AMP HHN SCH ×4 (01:46→20:50)
[2016-03-07] MEDS: hydrALAzine 20 MG INJ IV PRN ×4 (02:10→23:51)
[2016-03-07] MEDS: PANTOPRAZOLE 40 MG INJ IV SCH (06:01)
[2016-03-07] MEDS: metroNIDAZOLE 500 MG TAB NGT SCH ×3 (06:02→21:56)
[2016-03-07] MEDS: METOPROLOL 100 MG TAB NGT SCH ×3 (06:02→21:57)
[2016-03-07 06:13] LABS: BASOPHIL # 0.1 10^3/ul (0.0-0.1); BASOPHILS % 0.6 % (0.0-2.0); EOSINOPHILS # 0.7 10^3/ul (0.0-0.5); EOSINOPHILS % 4.7 % (0.0-7.0); HEMATOCRIT 27.7 % (42.0-52.0); HEMOGLOBIN 8.9 g/dl (14.0-18.0); LYMPHOCYTES # 1.4 10^3/ul (0.8-2.9); LYMPHOCYTES % 9.5 % (15.0-51.0); MEAN CORPUSCULAR HEMOGLOBIN 26.6 pg (29.0-33.0); MEAN CORPUSCULAR HGB CONC 32.3 g/dl (32.0-37.0); MEAN CORPUSCULAR VOLUME 82.3 fl (82.0-101.0); MEAN PLATELET VOLUME 8.6 fl (7.4-10.4); MONOCYTE # 0.8 10^3/ul (0.3-0.9); MONOCYTES % 5.5 % (0.0-11.0); NEUTROPHIL # 11.8 10^3/ul (1.6-7.5); NEUTROPHILS % 79.7 % (39.0-77.0); PLATELET COUNT 536 10^3/UL (140-440); RED BLOOD COUNT 3.36 10^6/ul (4.70-6.10); RED CELL DISTRIBUTION WIDTH 17.5 % (11.5-14.5); UNCORRECTED WBC 14.8 10^3/ul (4.8-10.8); WHITE BLOOD COUNT 14.8 10^3/ul (4.8-10.8)
[2016-03-07 06:16] LABS: INR 1.26; PROTIME 15.9 Sec (12.2-14.2); PT RATIO 1.2
[2016-03-07 06:18] LABS: PARTIAL THROMBOPLASTIN TIME 66.5 Sec (25.0-35.0)
[2016-03-07 06:31] LABS: CONDITION 1; LH ANALYZER COMMENTS 1
[2016-03-07 06:46] LABS: POTASSIUM 3.2 mmol/L (3.5-5.1)
[2016-03-07 06:48] LABS: CREATININE 1.84 mg/dl (0.61-1.24)
[2016-03-07 06:49] LABS: CALCIUM 9.4 mg/dl (8.4-10.2)
[2016-03-07] MEDS: FERROUS SULFATE 60 MG/ML 5ML CUP GTB SCH ×2 (08:37→20:15)
--- NOTE | 2016-03-07 08:37 | RADRPT ---
PROCEDURE: XR Chest. CLINICAL INDICATION: Shortness of breath. TECHNIQUE: Single frontal view. COMPARISON: 03/06/2016. FINDINGS: The endotracheal tube has been removed. The nasogastric tube and right arm PICC line remain in sati sfactory position. Pulmonary edema is slightly improved. The heart is enlarged. There is a small right pleural effusion. There is no left pleural effusion. There is no pneumothorax. IMPRESSION: 1. Slightly improved pulmonary edema. 2. Endotracheal tube removed. RPTAT: QQ .Bk Lujan MD, MD Date Time Electronically viewed and signed by .Bk Lujan MD, MD on 03/07/2016 08:37 .R/
[2016-03-07] MEDS: MINOXIDIL 2.5 MG TAB NGT SCH ×2 (08:38→20:17)
[2016-03-07] MEDS: FUROSEMIDE 20 MG INJ IV SCH (08:39)
[2016-03-07] MEDS: AMLODIPINE 5 MG TAB NGT SCH ×2 (08:39→20:16)
[2016-03-07] MEDS: LEVETIRACETAM IV 1,000 MG in SOD CHLORIDE 0.9% 100 ML IVPB SCH ×2 (08:50→20:22)
--- NOTE | 2016-03-07 12:01 | PN ---
Date/Time of Note Date/Time of Note DATE: 03/07/16 TIME: 12:00 Assessment/Plan Lines/Catheters IV Catheter Type (from Nrs): PICC Line Smalls in Place (from Nrs): Yes Assessment/Plan Chief Complaint/Hosp Course IMPRESSION: Type B aortic dissection. The patient's blood pressure more controlled RECOMMENDATIONS: At this time, we would continue blood pressure management, monitor vital signs and laboratory values in an intensive care unit setting. Vent support per pulm medicine No plan for surgery. Abx Repeat CTA Dissection involving the thoracic aorta arising distal to the origin of the left subclavian artery and extending into the abdominal aorta. The distal extent was not included on the study. Flow within both true and false lumen to the level of the celiac artery. Would continue BP control , Vent support Type B aortic dissection PE, OK to start anticoagulation no plan for surgery at this time I discussed with the patient and Dr. Mccabe and staff Problems: Subjective 24 Hr Interval Summary Constitutional: improved Pain Control: mild Exam/Review of Systems Vital Signs Vitals Vital Signs Date Time Temp Pulse Resp B/P Pulse Ox O2 Delivery O2 Flow Rate FiO2 03/07/16 10:00 93 27 177/91 96 Nasal Cannula 4.0 03/07/16 08:00 98.4 03/06/16 15:12 40 Intake and Output 03/06/16 03/06/16 03/07/16 15:00 23:00 07:00 Intake Total 411.17 ml 648 ml 678 ml Output Total 1400 ml 1010 ml 940 ml Balance -988.83 ml -362 ml -262 ml Exam ENMT: mucosa pink and moist, nl external ears & nose, nl lips & teeth, nl nasal mucosa & septum Neck: non-tender, supple Respiratory: clear to auscultation, normal air movement Cardiovascular: nl pulses, regular rate and rhythm Results Result Diagram: 03/07/16 0445 03/07/16 0445 KAYLYN RADFORD MD Mar 07, 2016 12:01
--- NOTE | 2016-03-07 12:10 | PN ---
Date/Time of Note Date/Time of Note DATE: 03/07/16 TIME: 12:06 Assessment/Plan VTE Prophylaxis VTE Prophylaxis Intervention: heparin Lines/Catheters IV Catheter Type (from Nrsg): PICC Line Central line still needed: Yes Urinary Cath still in place: Yes Reason Cath still needed: other (indicate) (monitor I&O) Assessment/Plan Chief Complaint/Hosp Course Assessment and plan 1. Type B aortic dissection. Continue blood pressure control. Patient seen by vascular surgeon. No plan for surgical intervention at this time. Remains on oral antihypertensives 2. Accelerated hypertension. Still remains elevated. Continue control with oral antihypertensives. Follow-up with cardiology recommendations 3. Acute hypoxic respiratory failure. Suspect secondary to aspiration. Off ventilator at this time. cont o2. and bronchodilators as needed 4. Aspiration pneumonia. Continue antibiotics as per infectious disease consult. Continue aspiration precautions 5. Acute kidney injury, most probably secondary to hemodynamics. Nephrology following. Use nephrotoxic drugs with caution. Monitor renal panel 6. Left cephalic vein thrombosis. Continue elevation. Noted to be superficial 7. Pulmonary embolism (02/29/2016). On heparin at this time. Continue with thoracic surgeon recommendations 8. Iron deficiency anemia. Iron panel showing iron deficiency. Continue iron supplements. 9. Acute encephalopathy, most probably metabolic in origin. Per EEG done on 01/2016 showed generalized bihemispheric background slowing suggestive of bihemispheric subcortical dysfunction possibly from epileptiform activity. Continue on Keppra. 10. S/P sepsis secondary to gram-positive bacteremia. Latest blood cultures are negative. On antibiotics as per infectious diseases. 12. DVT prophylaxis. heparin. 13. GERD prophylaxis. Proton pump inhibitor. Disposition and plan: off ventilator at this time. remains somnolent. check abg. cont icu monitoring Discussed plan of care with Dr. Raymundo Critical care time: 30 minutes Problems: Subjective 24 Hr Interval Summary Free Text/Dictation extubated. still somnolent. no s/s/ of distress Exam/Review of Systems Vital Signs Vitals Vital Signs Date Time Temp Pulse Resp B/P Pulse Ox O2 Delivery O2 Flow Rate FiO2 03/07/16 10:00 93 27 177/91 96 Nasal Cannula 4.0 03/07/16 08:00 98.4 03/06/16 15:12 40 Intake and Output 03/06/16 03/06/16 03/07/16 15:00 23:00 07:00 Intake Total 411.17 ml 648 ml 678 ml Output Total 1400 ml 1010 ml 940 ml Balance -988.83 ml -362 ml -262 ml Exam General: extubated. somnolent. no apparent distress Eyes: pupils equal round, Anicteric sclera Neck: Supple nontender, no JVD Cardiac: S1, S2 auscultated, regular rhythm and rate Pulmonary: no wheezing/rales GI: Bowel sounds active. Slightly distended Extremities: Edema bilateral lower and upper extremities +2 Skin: Clean dry and intact Neurologic: awakens to verbal response, somnolent Results Result Diagram: 03/07/16 0445 03/07/16 0445 Results 24 hrs Laboratory Tests Test 03/06/16 17:24 03/07/16 00:12 03/07/16 04:45 03/07/16 06:17 Bedside Glucose 136 154 162 Activated Partial Thromboplast Time 66.5 H Anion Gap 17 H Basophils # 0.1 Basophils % 0.6 Blood Morphology Comment Blood Urea Nitrogen 37 H Calcium Level 9.4 Carbon Dioxide Level 29 Chloride Level 110 Creatinine 1.84 H Eosinophils # 0.7 H Eosinophils % 4.7 Glucose Level 154 Hematocrit 27.7 L Hemoglobin 8.9 L INR International Normalized Ratio 1.26 Lymphocytes # 1.4 Lymphocytes % 9.5 L Mean Corpuscular Hemoglobin 26.6 L Mean Corpuscular Hemoglobin Concent 32.3 Mean Corpuscular Volume 82.3 Mean Platelet Volume 8.6 Monocytes # 0.8 Monocytes % 5.5 Neutrophils # 11.8 H Neutrophils % 79.7 H Nucleated Red Blood Cells # 0.0 Nucleated Red Blood Cells % 0.0 Platelet Count 536 H Potassium Level 3.2 L Prothrombin Time 15.9 #H Prothrombin Time Ratio 1.2 Red Blood Count 3.36 L Red Cell Distribution Width 17.5 H Sodium Level 153 H White Blood Count 14.8 H Test 03/07/16 11:49 Bedside Glucose 156 Medications Medications Current Medications Ondansetron HCl (Zofran Inj) 4 mg Q6H PRN IV NAUSEA AND/OR VOMITING; Start 02/18/16 at 09:30 Acetaminophen (Tylenol Supp) 650 mg Q4H PRN [place] PAIN LEVEL 1-3 OR FEVER Last administered on 02/24/16at 14:32; Admin Dose 650 MG; Start 02/18/16 at 09:30 Morphine Sulfate (morphine) 2 mg Q4H PRN IV PAIN LEVEL 7-10 Last administered on 02/28/16at 09:42; Admin Dose 2 MG; Start 02/18/16 at 09:30 Bisacodyl (Dulcolax Supp) 10 mg DAILY PRN [place] CONSTIPATION; Start 02/18/16 at 09 :30 Pantoprazole (Protonix Iv) 40 mg DAILY@06 IV Last administered on 03/07/16at 06 :01; Admin Dose 40 MG; Start 02/19/16 at 06:00 Metoprolol Tartrate (Lopressor) 5 mg Q4H PRN IV HR>55 Hold SBP<100 Last administered on 03/07/16at 00:14; Admin Dose 5 MG; Start 02/21/16 at 11:30 IV Flush (NS 10 ml) 10 ml PRN PRN IV IV PROTOCOL; Start 02/21/16 at 18:30 Ferrous Sulfate (Feosol Liquid Cup) 300 mg BID GTB Last administered on at 08:37; Admin Dose 300 MG; Start 02/22/16 at 10:00 Lorazepam (Ativan) 1 mg Q1H PRN IV ANXIETY Last administered on 03/07/16at 06: 01; Admin Dose 1 MG; Start 02/23/16 at 11:30 Miscellaneous Information 1 ea NOTE XX ; Start 02/23/16 at 23:15 Glucose (Glutose) 22.5 gm Q15M PRN PO DECREASED GLUCOSE; Start 02/23/16 at 23: 15 Dextrose (D50w Syringe) 25 ml Q15M PRN IV DECREASED GLUCOSE; Start 02/23/16 at 23:15 Dextrose (D50w Syringe) 50 ml Q15M PRN IV DECREASED GLUCOSE; Start 02/23/16 at 23:15 Glucagon (Glucagen) 1 mg Q15M PRN IM DECREASED GLUCOSE; Start 02/23/16 at 23:15 Glucose 15 gm 15 gm Q15M PRN BUCCAL DECREASED GLUCOSE; Start 02/23/16 at 23:15 Levetiracetam/ Sodium Chloride (Keppra Iv/NS) 110 ml @ 440 mls/hr BID IVPB Last administered on 03/07/16at 08:50; Admin Dose 440 MLS/HR; Start 02/24/16 at 01:00 Insulin Aspart (Novolog Insulin Pen) NOVOLOG *MILD* ALGORI... Q6 SC Last administered on 03/07/16 11:53; Admin Dose 1 UNIT; Start 02/26/16 at 18:00 Furosemide (Lasix) 20 mg DAILY IV Last administered on 03/07/16 08:39; Admin Dose 20 MG; Start 02/27/16 at 09:00 Metoclopramide HCl (Reglan) 10 mg Q6 IV Last administered on 03/07/16 11:45; Admin Dose 10 MG; Start 03/04/16 at 06:00 Acetaminophen (Tylenol Tab) 650 mg Q6H PRN NGT PAIN AND OR ELEVATED TEMP; Start 03/06/16 at 11:30 Amlodipine Besylate (Norvasc) 5 mg BID NGT Last administered on 03/07/16 08: 39; Admin Dose 5 MG; Start 03/06/16 at 09:00 Glucose (Glutose) 15 gm Q15M PRN NGT DECREASED GLUCOSE; Start 03/06/16 at 08: 45 Hydralazine HCl (Apresoline) 100 mg Q8 NGT Last administered on 03/07/16 06: 03; Admin Dose 100 MG; Start 03/06/16 at 14:00 Metoprolol Tartrate (Lopressor) 150 mg Q8 NGT Last administered on 03/07/16at 06:02; Admin Dose 150 MG; Start 03/06/16 at 14:00 Metronidazole (Flagyl) 500 mg Q8 NGT Last administered on 03/07/16 06:02; Admin Dose 500 MG; Start 03/06/16 at 14:00 Minoxidil (Loniten) 5 mg BID NGT Last administered on 03/07/16at 08:38; Admin Dose 5 MG; Start 03/06/16 at 09:00 Hydralazine HCl 10 mg 10 mg Q4H PRN IV ELEVATED SYSTOLIC BP Last administered on 03/07/16at 10:13; Admin Dose 10 MG; Start 03/06/16 at 16:00 Potassium Chloride/Sodium Chloride (KCl/NS) 110 ml @ 55 mls/hr ONCE ONCE IVPB ; Start 03/07/16 at 13:30; Stop 03/07/16 at 15:29 REJI WADE Mar 07, 2016 12:10
[2016-03-07 12:37] LABS: AADO2 Arterial 136.7 mmHg (7.0-24.0); Allen Test ACCEPTAB; Arterial Base Excess 5.5 mmol/L (-3.0-3); Arterial COHb 0.3 % (0.0-3.0); Arterial Fraction of Oxyhgb 94.6 % (93.0-99.0); Arterial HCO3 29.1 mmol/L (22.0-26.0); Arterial MetHb 0.2 % (0.0-1.5); Arterial Total Hemglobin 10.5 g/dl (12.0-18.0); MODE NASAL CANNULA
--- NOTE | 2016-03-07 13:22 | CONS ---
Date/Time of Note Date/Time of Note DATE: 03/07/16 TIME: 13:17 Assessment/Plan Assessment/Plan Chief Complaint/Hosp Course Imp: 1.HTN emergency-NL EF by echo this admit-under reasonable control on PO medications only. Off all drips but having increased uncontrolled BP when agitated/stimulated or on sedation vacation 2.Aortic dissection-type B again demonstrated by Chest CT 02/29/16 3.abnl ecg-lateral TWI-negative troponin x 3 since admit 4.anxiety 5.ARF 6. Pericardial effusion by echo-small with NL EF 7.Encephalopathic 8.Pulmonary embolism 9.Tachycardia-S tach-only when on sedation vacation 10.CHF-diastolic acute Recc: -Tele in ICU -Follow volume status closely -serial ecg's -Continue PO BB/CCB/minoxidil/hydralazine and may need slight increase to minoxidil to improve BP control as patient awakens -ongoing surgical follow-up -f/u MS closely -Lasix diuresis -Continue heparin for now for PE Problems: Consultation Date/Type/Reason Admit Date/Time Feb 18, 2016 at 09:14 Initial Consult Date 02/19/2016 Type of Consultation: Cardiology Reason for Consultation HTN/aortic dissection Referring Provider: ANAYA BREWSTER MD, [facility] Exam/Review of Systems Vital Signs Vitals Vital Signs Date Time Temp Pulse Resp B/P Pulse Ox O2 Delivery O2 Flow Rate FiO2 03/07/16 12:00 114 03/07/16 12:00 Nasal Cannula 4.0 03/07/16 12:00 99.8 33 153/82 98 03/06/16 15:12 40 Intake and Output 03/06/16 03/06/16 03/07/16 15:00 23:00 07:00 Intake Total 411.17 ml 648 ml 678 ml Output Total 1400 ml 1010 ml 940 ml Balance -988.83 ml -362 ml -262 ml Exam Review of Systems: CONSTITUTIONAL: No fevers, chills. PULMONARY: s/p extubation CARDIOVASCULAR: No chest pain/palpitations GASTROINTESTINAL: No nausea/vomiting. GENITOURINARY: No hematuria/dysuria. MUSCULOSKELETAL: No myagias/arthalgias. PSYCHIATRIC: The patient denies depression. NEUROLOGIC: No weakness Constitutional: alert Psych: no complaints Head: normocephalic ENMT: mucosa pink and moist Neck: jvd (9 cm water), supple Respiratory: diminished breath sounds (at bases/B) Cardiovascular: regular rate and rhythm Gastrointestinal: non-tender, soft Musculoskeletal: muscle tone (normal) Extremities: edema (trace) Neurological: confused, other (agitated) Results Result Diagram: 03/07/16 0445 03/07/16 0445 Results 24 hrs Laboratory Tests Test 03/06/16 17:24 03/07/16 00:12 03/07/16 04:45 03/07/16 06:17 Bedside Glucose 136 154 162 Activated Partial Thromboplast Time 66.5 H Anion Gap 17 H Basophils # 0.1 Basophils % 0.6 Blood Morphology Comment Blood Urea Nitrogen 37 H Calcium Level 9.4 Carbon Dioxide Level 29 Chloride Level 110 Creatinine 1.84 H Eosinophils # 0.7 H Eosinophils % 4.7 Glucose Level 154 Hematocrit 27.7 L Hemoglobin 8.9 L INR International Normalized Ratio 1.26 Lymphocytes # 1.4 Lymphocytes % 9.5 L Mean Corpuscular Hemoglobin 26.6 L Mean Corpuscular Hemoglobin Concent 32.3 Mean Corpuscular Volume 82.3 Mean Platelet Volume 8.6 Monocytes # 0.8 Monocytes % 5.5 Neutrophils # 11.8 H Neutrophils % 79.7 H Nucleated Red Blood Cells # 0.0 Nucleated Red Blood Cells % 0.0 Platelet Count 536 H Potassium Level 3.2 L Prothrombin Time 15.9 #H Prothrombin Time Ratio 1.2 Red Blood Count 3.36 L Red Cell Distribution Width 17.5 H Sodium Level 153 H White Blood Count 14.8 H Test 03/07/16 11:49 03/07/16 12:05 Bedside Glucose 156 Arterial Blood HCO3 29.1 H Arterial Blood Base Excess 5.5 H Arterial Blood Oxygen Saturation 95.1 Jovanny Test ACCEPTAB Arterial Blood Gas Puncture Site Right Radial Arterial Blood Carboxyhemoglobin 0.3 Arterial Blood Date Drawn 03/07/2016 12:25:47 PM Arterial Blood Methemoglobin 0.2 Arterial Blood pCO2 (Temp correct) 38.4 Arterial Blood pH (Temp corrected) 7.497 H Arterial Blood pO2 (Temp corrected) 75.4 L Blood Gas A-a O2 Differential 136.7 H Blood Gas Modality NASAL CANNULA Blood Gas Notified Time 03/07/2016 12:37:42 PM Blood Gas Notified Whom JLD Blood Gas Specimen Source Blood arterial Blood Gas Temperature 37.0 FiO2 36.0 Oxyhemoglobin Percent 94.6 Total Hemoglobin 10.5 L Medications Medications Current Medications Ondansetron HCl (Zofran Inj) 4 mg Q6H PRN IV NAUSEA AND/OR VOMITING; Start 02/18/16 at 09:30 Acetaminophen (Tylenol Supp) 650 mg Q4H PRN [place] PAIN LEVEL 1-3 OR FEVER Last administered on 02/24/16at 14:32; Admin Dose 650 MG; Start 02/18/16 at 09:30 Morphine Sulfate (morphine) 2 mg Q4H PRN IV PAIN LEVEL 7-10 Last administered on 02/28/16at 09:42; Admin Dose 2 MG; Start 02/18/16 at 09:30 Bisacodyl (Dulcolax Supp) 10 mg DAILY PRN [place] CONSTIPATION; Start 02/18/16 at 09 :30 Pantoprazole (Protonix Iv) 40 mg DAILY@06 IV Last administered on 03/07/16at 06 :01; Admin Dose 40 MG; Start 02/19/16 at 06:00 Metoprolol Tartrate (Lopressor) 5 mg Q4H PRN IV HR>55 Hold SBP<100 Last administered on 03/07/16at 00:14; Admin Dose 5 MG; Start 02/21/16 at 11:30 IV Flush (NS 10 ml) 10 ml PRN PRN IV IV PROTOCOL; Start 02/21/16 at 18:30 Ferrous Sulfate (Feosol Liquid Cup) 300 mg BID GTB Last administered on at 08:37; Admin Dose 300 MG; Start 02/22/16 at 10:00 Lorazepam (Ativan) 1 mg Q1H PRN IV ANXIETY Last administered on 03/07/16at 06: 01; Admin Dose 1 MG; Start 02/23/16 at 11:30 Miscellaneous Information 1 ea NOTE XX ; Start 02/23/16 at 23:15 Glucose (Glutose) 22.5 gm Q15M PRN PO DECREASED GLUCOSE; Start 02/23/16 at 23: 15 Dextrose (D50w Syringe) 25 ml Q15M PRN IV DECREASED GLUCOSE; Start 02/23/16 at 23:15 Dextrose (D50w Syringe) 50 ml Q15M PRN IV DECREASED GLUCOSE; Start 02/23/16 at 23:15 Glucagon (Glucagen) 1 mg Q15M PRN IM DECREASED GLUCOSE; Start 02/23/16 at 23:15 Glucose 15 gm 15 gm Q15M PRN BUCCAL DECREASED GLUCOSE; Start 02/23/16 at 23:15 Levetiracetam/ Sodium Chloride (Keppra Iv/NS) 110 ml @ 440 mls/hr BID IVPB Last administered on 03/07/16at 08:50; Admin Dose 440 MLS/HR; Start 02/24/16 at 01:00 Insulin Aspart (Novolog Insulin Pen) NOVOLOG *MILD* ALGORI... Q6 SC Last administered on 03/07/16at 11:53; Admin Dose 1 UNIT; Start 02/26/16 at 18:00 Furosemide (Lasix) 20 mg DAILY IV Last administered on 03/07/16at 08:39; Admin Dose 20 MG; Start 02/27/16 at 09:00 Metoclopramide HCl (Reglan) 10 mg Q6 IV Last administered on 03/07/16at 11:45; Admin Dose 10 MG; Start 03/04/16 at 06:00 Acetaminophen (Tylenol Tab) 650 mg Q6H PRN NGT PAIN AND OR ELEVATED TEMP; Start 03/06/16 at 11:30 Amlodipine Besylate (Norvasc) 5 mg BID NGT Last administered on 03/07/16at 08: 39; Admin Dose 5 MG; Start 03/06/16 at 09:00 Glucose (Glutose) 15 gm Q15M PRN NGT DECREASED GLUCOSE; Start 03/06/16 at 08: 45 Hydralazine HCl (Apresoline) 100 mg Q8 NGT Last administered on 03/07/16at 13: 14; Admin Dose 100 MG; Start 03/06/16 at 14:00 Metoprolol Tartrate (Lopressor) 150 mg Q8 NGT Last administered on 03/07/16at 13:13; Admin Dose 150 MG; Start 03/06/16 at 14:00 Metronidazole (Flagyl) 500 mg Q8 NGT Last administered on 03/07/16at 13:13; Admin Dose 500 MG; Start 03/06/16 at 14:00 Minoxidil (Loniten) 5 mg BID NGT Last administered on 03/07/16at 08:38; Admin Dose 5 MG; Start 03/06/16 at 09:00 Hydralazine HCl 10 mg 10 mg Q4H PRN IV ELEVATED SYSTOLIC BP Last administered on 03/07/16at 10:13; Admin Dose 10 MG; Start 03/06/16 at 16:00 Potassium Chloride 20 meq/ Sodium Chloride 110 ml @ 55 mls/hr ONCE ONCE IVPB Last administered on 03/07/16at 12:30; Admin Dose 55 MLS/HR; Start 03/07/16 at 13:30; Stop 03/07/16 at 15:29 Dextrose (D5W) 1,000 ml @ 40 mls/hr Q24H IV Last administered on 03/07/16at 13 :09; Admin Dose 40 MLS/HR; Start 03/07/16 at 13:30 JUNAID PAZ Mar 07, 2016 13:22
[2016-03-07] MEDS ORDERED: POTASSIUM CHLORIDE 20 MEQ in SOD CHLORIDE 0.9% 100 ML IVPB ONE (13:30)
[2016-03-07] MEDS ORDERED: DEXTROSE 5% 1,000 ML IV SCH (13:30)
--- NOTE | 2016-03-07 15:51 | CONS ---
Date/Time of Note Date/Time of Note DATE: 03/07/16 TIME: 15:50 Assessment/Plan Assessment/Plan Chief Complaint/Hosp Course Assessment/Plan 1. Acute kidney injury, likely secondary to acute tubular necrosis from contrast-induced nephropathy and also secondary to ischemic acute tubular necrosis from aortic dissection. 2. A type B [place] aortic dissection. 3. Hypertension 4. acute resp failiure intubated on ventilator 5 EDEMA 6 hypernatremia BETTER plan ck lytes LASIX PRN CK bmp kcl Problems: Consultation Date/Type/Reason Admit Date/Time Feb 18, 2016 at 09:14 Initial Consult Date 02/26/16 Type of Consultation: renal Referring Provider: ANAYA BREWSTER MD, [facility] 24 HR Interval Summary Constitutional: other (off vent) Exam/Review of Systems Vital Signs Vitals Vital Signs Date Time Temp Pulse Resp B/P Pulse Ox O2 Delivery O2 Flow Rate FiO2 03/07/16 13:42 111 27 95 Nasal Cannula 5.0 03/07/16 13:30 171/70 03/07/16 12:00 99.8 03/06/16 15:12 40 Intake and Output 03/06/16 03/06/16 03/07/16 15:00 23:00 07:00 Intake Total 411.17 ml 648 ml 678 ml Output Total 1400 ml 1010 ml 940 ml Balance -988.83 ml -362 ml -262 ml Exam Respiratory: diminished breath sounds Cardiovascular: regular rate and rhythm Gastrointestinal: soft Extremities: edema (++) Results Result Diagram: 03/07/16 0445 03/07/16 0445 Results 24 hrs Laboratory Tests Test 03/06/16 17:24 03/07/16 00:12 03/07/16 04:45 03/07/16 06:17 Bedside Glucose 136 154 162 Activated Partial Thromboplast Time 66.5 H Anion Gap 17 H Basophils # 0.1 Basophils % 0.6 Blood Morphology Comment Blood Urea Nitrogen 37 H Calcium Level 9.4 Carbon Dioxide Level 29 Chloride Level 110 Creatinine 1.84 H Eosinophils # 0.7 H Eosinophils % 4.7 Glucose Level 154 Hematocrit 27.7 L Hemoglobin 8.9 L INR International Normalized Ratio 1.26 Lymphocytes # 1.4 Lymphocytes % 9.5 L Mean Corpuscular Hemoglobin 26.6 L Mean Corpuscular Hemoglobin Concent 32.3 Mean Corpuscular Volume 82.3 Mean Platelet Volume 8.6 Monocytes # 0.8 Monocytes % 5.5 Neutrophils # 11.8 H Neutrophils % 79.7 H Nucleated Red Blood Cells # 0.0 Nucleated Red Blood Cells % 0.0 Platelet Count 536 H Potassium Level 3.2 L Prothrombin Time 15.9 #H Prothrombin Time Ratio 1.2 Red Blood Count 3.36 L Red Cell Distribution Width 17.5 H Sodium Level 153 H White Blood Count 14.8 H Test 03/07/16 11:49 03/07/16 12:05 03/07/16 13:40 Bedside Glucose 156 Arterial Blood HCO3 29.1 H Arterial Blood Base Excess 5.5 H Arterial Blood Oxygen Saturation 95.1 Jovanny Test ACCEPTAB Arterial Blood Gas Puncture Site Right Radial Arterial Blood Carboxyhemoglobin 0.3 Arterial Blood Date Drawn 03/07/2016 12:25:47 PM Arterial Blood Methemoglobin 0.2 Arterial Blood pCO2 (Temp correct) 38.4 Arterial Blood pH (Temp corrected) 7.497 H Arterial Blood pO2 (Temp corrected) 75.4 L Blood Gas A-a O2 Differential 136.7 H Blood Gas Modality NASAL CANNULA Blood Gas Notified Time 03/07/2016 12:37:42 PM Blood Gas Notified Whom JLD Blood Gas Specimen Source Blood arterial Blood Gas Temperature 37.0 FiO2 36.0 Oxyhemoglobin Percent 94.6 Total Hemoglobin 10.5 L Activated Partial Thromboplast Time 98.3 *H Medications Medications Current Medications Ondansetron HCl (Zofran Inj) 4 mg Q6H PRN IV NAUSEA AND/OR VOMITING; Start 02/18/16 at 09:30 Acetaminophen (Tylenol Supp) 650 mg Q4H PRN [place] PAIN LEVEL 1-3 OR FEVER Last administered on 02/24/16at 14:32; Admin Dose 650 MG; Start 02/18/16 at 09:30 Morphine Sulfate (morphine) 2 mg Q4H PRN IV PAIN LEVEL 7-10 Last administered on 02/28/16at 09:42; Admin Dose 2 MG; Start 02/18/16 at 09:30 Bisacodyl (Dulcolax Supp) 10 mg DAILY PRN [place] CONSTIPATION; Start 02/18/16 at 09 :30 Pantoprazole (Protonix Iv) 40 mg DAILY@06 IV Last administered on 03/07/16at 06 :01; Admin Dose 40 MG; Start 02/19/16 at 06:00 Metoprolol Tartrate (Lopressor) 5 mg Q4H PRN IV HR>55 Hold SBP<100 Last administered on 03/07/16at 00:14; Admin Dose 5 MG; Start 02/21/16 at 11:30 IV Flush (NS 10 ml) 10 ml PRN PRN IV IV PROTOCOL; Start 02/21/16 at 18:30 Ferrous Sulfate (Feosol Liquid Cup) 300 mg BID GTB Last administered on at 08:37; Admin Dose 300 MG; Start 02/22/16 at 10:00 Lorazepam (Ativan) 1 mg Q1H PRN IV ANXIETY Last administered on 03/07/16at 06: 01; Admin Dose 1 MG; Start 02/23/16 at 11:30 Miscellaneous Information 1 ea NOTE XX ; Start 02/23/16 at 23:15 Glucose (Glutose) 22.5 gm Q15M PRN PO DECREASED GLUCOSE; Start 02/23/16 at 23: 15 Dextrose (D50w Syringe) 25 ml Q15M PRN IV DECREASED GLUCOSE; Start 02/23/16 at 23:15 Dextrose (D50w Syringe) 50 ml Q15M PRN IV DECREASED GLUCOSE; Start 02/23/16 at 23:15 Glucagon (Glucagen) 1 mg Q15M PRN IM DECREASED GLUCOSE; Start 02/23/16 at 23:15 Glucose 15 gm 15 gm Q15M PRN BUCCAL DECREASED GLUCOSE; Start 02/23/16 at 23:15 Levetiracetam/ Sodium Chloride (Keppra Iv/NS) 110 ml @ 440 mls/hr BID IVPB Last administered on 03/07/16at 08:50; Admin Dose 440 MLS/HR; Start 02/24/16 at 01:00 Insulin Aspart (Novolog Insulin Pen) NOVOLOG *MILD* ALGORI... Q6 SC Last administered on 03/07/16at 11:53; Admin Dose 1 UNIT; Start 02/26/16 at 18:00 Furosemide (Lasix) 20 mg DAILY IV Last administered on 03/07/16at 08:39; Admin Dose 20 MG; Start 02/27/16 at 09:00 Metoclopramide HCl (Reglan) 10 mg Q6 IV Last administered on 03/07/16at 11:45; Admin Dose 10 MG; Start 03/04/16 at 06:00 Acetaminophen (Tylenol Tab) 650 mg Q6H PRN NGT PAIN AND OR ELEVATED TEMP; Start 03/06/16 at 11:30 Amlodipine Besylate (Norvasc) 5 mg BID NGT Last administered on 03/07/16at 08: 39; Admin Dose 5 MG; Start 03/06/16 at 09:00 Glucose (Glutose) 15 gm Q15M PRN NGT DECREASED GLUCOSE; Start 03/06/16 at 08: 45 Hydralazine HCl (Apresoline) 100 mg Q8 NGT Last administered on 03/07/16at 13: 14; Admin Dose 100 MG; Start 03/06/16 at 14:00 Metoprolol Tartrate (Lopressor) 150 mg Q8 NGT Last administered on 03/07/16at 13:13; Admin Dose 150 MG; Start 03/06/16 at 14:00 Metronidazole (Flagyl) 500 mg Q8 NGT Last administered on 03/07/16at 13:13; Admin Dose 500 MG; Start 03/06/16 at 14:00 Hydralazine HCl 10 mg 10 mg Q4H PRN IV ELEVATED SYSTOLIC BP Last administered on 03/07/16at 10:13; Admin Dose 10 MG; Start 03/06/16 at 16:00 Dextrose (D5W) 1,000 ml @ 40 mls/hr Q24H IV Last administered on 03/07/16at 13 :09; Admin Dose 40 MLS/HR; Start 03/07/16 at 13:30 Minoxidil (Loniten) 7.5 mg BID NGT ; Start 03/07/16 at 21:00 SASHA OWEN MD Mar 07, 2016 15:51
[2016-03-07] MEDS: morphine 2 MG INJ IV PRN (19:19)
[2016-03-07] MEDS: ACETAMINOPHEN 325 MG TAB NGT PRN (20:15)
[2016-03-08] VITALS (22 sets, daily range): BP systolic 142–205; BP diastolic 68–100; PULSE 88–120; RESP 17–40
[2016-03-08] MEDS: METOPROLOL 5 MG INJ IV PRN ×2 (01:05→07:00)
[2016-03-08] MEDS: ALBUTEROL/IPRATROPIUM (NEB) 3 ML AMP HHN SCH ×4 (01:43→20:32)
[2016-03-08] MEDS: morphine 2 MG INJ IV PRN ×2 (03:14→10:30)
[2016-03-08] MEDS: HEPARIN 25000 UNITS/250 ML 250 ML IV SCH ×3 (03:17→21:36)
[2016-03-08] MEDS: hydrALAzine 20 MG INJ IV PRN ×2 (04:04→11:57)
[2016-03-08 05:33] LABS: HEMATOCRIT 27.5 % (42.0-52.0); HEMOGLOBIN 8.9 g/dl (14.0-18.0); MEAN CORPUSCULAR HEMOGLOBIN 26.4 pg (29.0-33.0); MEAN CORPUSCULAR HGB CONC 32.5 g/dl (32.0-37.0); MEAN CORPUSCULAR VOLUME 81.2 fl (82.0-101.0); MEAN PLATELET VOLUME 8.6 fl (7.4-10.4); PLATELET COUNT 511 10^3/UL (140-440); RED BLOOD COUNT 3.38 10^6/ul (4.70-6.10); RED CELL DISTRIBUTION WIDTH 16.6 % (11.5-14.5)
[2016-03-08] MEDS: INSULIN ASPART [NOVOLOG] 3 ML PEN SC SCH ×3 (05:38→20:23)
[2016-03-08] MEDS: METOCLOPRAMIDE 10 MG INJ IV SCH ×3 (05:39→18:44)
[2016-03-08] MEDS: PANTOPRAZOLE 40 MG INJ IV SCH (05:39)
[2016-03-08] MEDS: METOPROLOL 100 MG TAB NGT SCH ×3 (05:40→21:32)
[2016-03-08] MEDS: metroNIDAZOLE 500 MG TAB NGT SCH ×3 (05:40→21:31)
[2016-03-08] MEDS: ACETAMINOPHEN 325 MG TAB NGT PRN (05:42)
[2016-03-08 05:44] LABS: CONDITION 1; LH ANALYZER COMMENTS 1; SUSPECT 1
[2016-03-08 07:31] LABS: POTASSIUM 4.1 mmol/L (3.5-5.1)
[2016-03-08 07:33] LABS: CREATININE 1.59 mg/dl (0.61-1.24)
[2016-03-08 07:34] LABS: CALCIUM 9.5 mg/dl (8.4-10.2)
--- NOTE | 2016-03-08 07:38 | PN ---
DATE: 03/07/2016 SUBJECTIVE: The patient was intubated, now lying comfortably in bed, low-grade fevers with a T-max of 100.7, T-current 100.3, pulse 98, respirations 30, blood pressure 166/72, saturation 97% on 4 li ters. WBC 14.8, H and H 8.9 and 27.7, platelets 536, neutrophils 79.7, BUN 37, creatinine 1.84. DIAGNOSTICS: Chest x-ray this morning revealed improved pulmonary edema. INDWELLINGS: The patient has NG tube, right upper extremity PICC line, Smalls catheter. PHYSICAL EXAMINATION: GENERAL: Obese, well-developed, middle-aged man who is lethargic, in no distress. HEENT: Head atraumatic, normocephalic. Sclerae anicteric. Buccal mucosa dry. NECK: Supple. CHEST: Rise symmetrical. Breath sounds with scattered crackles. HEART: S1, S2. ABDOMEN: Soft, distended. Bowel tones present. EXTREMITIES: Without cyanosis. Bilateral edema. ASSESSMENT: 1. Status post acute respiratory failure. 2. Status post pneumonia. 3. Congestive heart failure. 4. Status epilepticus. 5. Type B aortic dissection. 6. Hypertension, status post hypertensive urgency. PLAN: The patient remains stable post-intubation off antibiotics. Continue present care. Continue antihypertensive medications, anti-aspiration measures. Follow recommendations of consultants. Dictated By: HUSAM SANFORD P[employer] S[employer]KER MACHINE OPERATOR for YESIKA LOPEZ/NTS Conf#: [id number] DID#: [id number]
[2016-03-08] MEDS: FUROSEMIDE 20 MG INJ IV SCH (08:39)
[2016-03-08] MEDS: FERROUS SULFATE 60 MG/ML 5ML CUP GTB SCH ×2 (08:47→20:43)
[2016-03-08] MEDS: MINOXIDIL 2.5 MG TAB NGT SCH ×2 (08:48→21:31)
[2016-03-08] MEDS: AMLODIPINE 5 MG TAB NGT SCH ×3 (08:49→21:31)
[2016-03-08] MEDS: LEVETIRACETAM IV 1,000 MG in SOD CHLORIDE 0.9% 100 ML IVPB SCH ×2 (08:50→20:43)
[2016-03-08 10:38] LABS: EOSINOPHILS # 0.2 10^3/ul (0.0-0.5); LYMPHOCYTES # 1.9 10^3/ul (0.8-2.9); MONOCYTE # 0.8 10^3/ul (0.3-0.9); MYELOCYTES # 0.2; POLYCHROMASIA 1+
[2016-03-08 10:39] LABS: TARGET CELLS 1+
[2016-03-08 10:52] LABS: ALBUMIN 3.6 g/dl (3.3-4.9)
[2016-03-08 10:54] LABS: BILIRUBIN,INDIRECT 0.2 mg/dl (0-1.1); BILIRUBIN,TOTAL 0.2 mg/dl (0.2-1.3)
[2016-03-08 10:55] LABS: TOTAL PROTEIN 7.4 g/dl (6.1-8.1)
[2016-03-08] MEDS: DEXTROSE 5% 1,000 ML IV SCH (12:26)
--- NOTE | 2016-03-08 12:50 | CONS ---
Date/Time of Note Date/Time of Note DATE: 03/08/16 TIME: 12:47 Assessment/Plan Assessment/Plan Chief Complaint/Hosp Course Imp: 1.HTN emergency-NL EF by echo this admit-under reasonable control on PO medications only. Off all drips but still having increased uncontrolled BP when agitated/stimulated or on sedation vacation 2.Aortic dissection-type B again demonstrated by Chest CT 02/29/16 3.abnl ecg-lateral TWI-negative troponin x 3 since admit 4.anxiety 5.ARF 6. Pericardial effusion by echo-small with NL EF 7.Encephalopathic 8.Pulmonary embolism 9.Tachycardia-S tach-only when on sedation vacation 10.CHF-diastolic acute Recc: -Tele in ICU -Follow volume status closely -serial ecg's -Continue PO BB/CCB/minoxidil/hydralazine and will star diltiazem in attempt to improve HR control and then possibly wean off other CCB norvasc -ongoing surgical follow-up -f/u MS closely -Lasix diuresis -Continue heparin for now for PE Problems: Consultation Date/Type/Reason Admit Date/Time Feb 18, 2016 at 09:14 Initial Consult Date 02/19/2016 Type of Consultation: Cardiology Reason for Consultation HTN/aortic dissection Referring Provider: ANAYA BREWSTER MD, [facility] Exam/Review of Systems Vital Signs Vitals Vital Signs Date Time Temp Pulse Resp B/P Pulse Ox O2 Delivery O2 Flow Rate FiO2 03/08/16 08:00 92 03/08/16 07:40 25 95 Nasal Cannula 5.0 03/08/16 06:00 187/92 03/08/16 05:00 100.0 03/06/16 15:12 40 Intake and Output 03/07/16 03/07/16 03/08/16 15:00 23:00 07:00 Intake Total 956 ml 1000 ml 908 ml Output Total 1225 ml 815 ml 655 ml Balance -269 ml 185 ml 253 ml Exam Review of Systems: CONSTITUTIONAL: No fevers, chills. PULMONARY: mild sob CARDIOVASCULAR: No chest pain/palpitations GASTROINTESTINAL: No nausea/vomiting. GENITOURINARY: No hematuria/dysuria. MUSCULOSKELETAL: No myagias/arthalgias. PSYCHIATRIC: The patient denies depression. NEUROLOGIC: lethargic Constitutional: other (sleeping, arousable) Psych: no complaints Head: normocephalic ENMT: mucosa pink and moist Neck: jvd (9 cm water), supple Respiratory: diminished breath sounds (at bases/B) Cardiovascular: regular rate and rhythm Gastrointestinal: non-tender, soft Musculoskeletal: muscle tone (normal) Extremities: pitting pedal edema (bilateral trace) Neurological: confused, lethargic Results Result Diagram: 03/08/16 0443 03/08/16 0443 Results 24 hrs Laboratory Tests Test 03/07/16 13:40 03/07/16 18:23 03/07/16 23:05 03/07/16 23:48 Activated Partial Thromboplast Time 98.3 *H 72.4 *H Bedside Glucose 175 203 Test 03/08/16 04:43 03/08/16 05:29 03/08/16 12:30 Activated Partial Thromboplast Time 88.9 *H Alanine Aminotransferase (ALT/SGPT) 36 Albumin 3.6 Alkaline Phosphatase 160 H Anion Gap 20 H Aspartate Amino Transf (AST/SGOT) 39 Basophils # Basophils % Blood Morphology Comment Blood Urea Nitrogen 34 H Calcium Level 9.5 Carbon Dioxide Level 27 Chloride Level 112 H Creatinine 1.59 H Differential Comment MANUAL DIFF Direct Bilirubin 0.00 Eosinophils # 0.2 Eosinophils % 1.0 Glucose Level 196 Hematocrit 27.5 L Hemoglobin 8.9 L Indirect Bilirubin 0.2 Lymphocytes # 1.9 Lymphocytes % 12.0 L Mean Corpuscular Hemoglobin 26.4 L Mean Corpuscular Hemoglobin Concent 32.5 Mean Corpuscular Volume 81.2 L Mean Platelet Volume 8.6 Monocytes # 0.8 Monocytes % 5.0 Myelocytes # 0.2 Myelocytes % 1.0 H Neutrophils # 13.0 H Neutrophils % 81.0 H Nucleated Red Blood Cells # Nucleated Red Blood Cells % Platelet Count 511 H Polychromasia 1+ Potassium Level 4.1 Red Blood Count 3.38 L Red Cell Distribution Width 16.6 H Sodium Level 155 H Target Cells 1+ Total Bilirubin 0.2 Total Protein 7.4 White Blood Count 16.0 H Bedside Glucose 210 178 Medications Medications Current Medications Ondansetron HCl (Zofran Inj) 4 mg Q6H PRN IV NAUSEA AND/OR VOMITING; Start 02/18/16 at 09:30 Acetaminophen (Tylenol Supp) 650 mg Q4H PRN [place] PAIN LEVEL 1-3 OR FEVER Last administered on 02/24/16at 14:32; Admin Dose 650 MG; Start 02/18/16 at 09:30 Morphine Sulfate (morphine) 2 mg Q4H PRN IV PAIN LEVEL 7-10 Last administered on 03/08/16at 10:30; Admin Dose 2 MG; Start 02/18/16 at 09:30 Bisacodyl (Dulcolax Supp) 10 mg DAILY PRN [place] CONSTIPATION; Start 02/18/16 at 09 :30 Pantoprazole (Protonix Iv) 40 mg DAILY@06 IV Last administered on 03/08/16at 05 :39; Admin Dose 40 MG; Start 02/19/16 at 06:00 Metoprolol Tartrate (Lopressor) 5 mg Q4H PRN IV HR>55 Hold SBP<100 Last administered on 03/08/16at 07:00; Admin Dose 5 MG; Start 02/21/16 at 11:30 IV Flush (NS 10 ml) 10 ml PRN PRN IV IV PROTOCOL; Start 02/21/16 at 18:30 Ferrous Sulfate (Feosol Liquid Cup) 300 mg BID GTB Last administered on at 08:47; Admin Dose 300 MG; Start 02/22/16 at 10:00 Lorazepam (Ativan) 1 mg Q1H PRN IV ANXIETY Last administered on 03/07/16at 06: 01; Admin Dose 1 MG; Start 02/23/16 at 11:30 Miscellaneous Information 1 ea NOTE XX ; Start 02/23/16 at 23:15 Glucose (Glutose) 22.5 gm Q15M PRN PO DECREASED GLUCOSE; Start 02/23/16 at 23: 15 Dextrose (D50w Syringe) 25 ml Q15M PRN IV DECREASED GLUCOSE; Start 02/23/16 at 23:15 Dextrose (D50w Syringe) 50 ml Q15M PRN IV DECREASED GLUCOSE; Start 02/23/16 at 23:15 Glucagon (Glucagen) 1 mg Q15M PRN IM DECREASED GLUCOSE; Start 02/23/16 at 23:15 Glucose 15 gm 15 gm Q15M PRN BUCCAL DECREASED GLUCOSE; Start 02/23/16 at 23:15 Levetiracetam/ Sodium Chloride (Keppra Iv/NS) 110 ml @ 440 mls/hr BID IVPB Last administered on 03/08/16 08:50; Admin Dose 440 MLS/HR; Start 02/24/16 at 01:00 Insulin Aspart (Novolog Insulin Pen) NOVOLOG *MILD* ALGORI... Q6 SC Last administered on 03/08/16 12:34; Admin Dose 1 UNIT; Start 02/26/16 at 18:00 Furosemide (Lasix) 20 mg DAILY IV Last administered on 03/08/16 08:39; Admin Dose 20 MG; Start 02/27/16 at 09:00 Metoclopramide HCl (Reglan) 10 mg Q6 IV Last administered on 03/08/16 12:17; Admin Dose 10 MG; Start 03/04/16 at 06:00 Acetaminophen (Tylenol Tab) 650 mg Q6H PRN NGT PAIN AND OR ELEVATED TEMP Last administered on 03/08/16 05:42; Admin Dose 650 MG; Start 03/06/16 at 11:30 Amlodipine Besylate (Norvasc) 5 mg BID NGT Last administered on 03/08/16 08: 49; Admin Dose 5 MG; Start 03/06/16 at 09:00 Glucose (Glutose) 15 gm Q15M PRN NGT DECREASED GLUCOSE; Start 03/06/16 at 08: 45 Hydralazine HCl (Apresoline) 100 mg Q8 NGT Last administered on 03/08/16 05: 41; Admin Dose 100 MG; Start 03/06/16 at 14:00 Metoprolol Tartrate (Lopressor) 150 mg Q8 NGT Last administered on 03/08/16 05:40; Admin Dose 150 MG; Start 03/06/16 at 14:00 Metronidazole (Flagyl) 500 mg Q8 NGT Last administered on 03/08/16 05:40; Admin Dose 500 MG; Start 03/06/16 at 14:00 Hydralazine HCl (Apresoline) 10 mg Q4H PRN IV ELEVATED SYSTOLIC BP Last administered on 03/08/16 11:57; Admin Dose 10 MG; Start 03/06/16 at 16:00 Minoxidil 7.5 mg 7.5 mg BID NGT Last administered on 03/08/16 08:48; Admin Dose 7.5 MG; Start 03/07/16 at 21:00 Dextrose (D5W) 1,000 ml @ 80 mls/hr [id number] IV Last administered on at 12:26; Admin Dose 80 MLS/HR; Start 03/08/16 at 11:30 JUNAID PAZ Mar 08, 2016 12:50
--- NOTE | 2016-03-08 13:59 | PN ---
Date/Time of Note Date/Time of Note DATE: 03/08/16 TIME: 13:52 Assessment/Plan VTE Prophylaxis VTE Prophylaxis Intervention: heparin Lines/Catheters [facility] P[facility] Line Central line still needed: Yes Urinary Cath still in place: Yes Reason Cath still needed: other (indicate) (monitor I&O) Assessment/Plan Chief Complaint/Hosp Course Assessment and plan 1. Type B aortic dissection. Continue blood pressure control. Patient seen by vascular surgeon. No plan for surgical intervention at this time. Remains on oral antihypertensives 2. Accelerated hypertension. Still remains elevated. Continue control with oral antihypertensives. Follow-up with cardiology recommendations 3. Acute hypoxic respiratory failure. Suspect secondary to aspiration. Off ventilator at this time. cont o2. and bronchodilators as needed 4. Aspiration pneumonia. Continue antibiotics as per infectious disease consult. Continue aspiration precautions 5. Acute kidney injury, most probably secondary to hemodynamics. Nephrology following. Use nephrotoxic drugs with caution. Monitor renal panel 6. Left cephalic vein thrombosis. Continue elevation. Noted to be superficial 7. Pulmonary embolism (02/29/2016). On heparin at this time. Continue with thoracic surgeon recommendations 8. Iron deficiency anemia. Iron panel showing iron deficiency. Continue iron supplements. 9. Acute encephalopathy, most probably metabolic in origin. Per EEG done on 01/2016 showed generalized bihemispheric background slowing suggestive of bihemispheric subcortical dysfunction possibly from epileptiform activity. Continue on Keppra per neurology recommendations. Patient remains encephalopathic. We'll follow-up on CT scan of the head. We'll get another neurology reevaluation 10. S/P sepsis secondary to gram-positive bacteremia. Latest blood cultures are negative. On antibiotics as per infectious diseases. 12. DVT prophylaxis. heparin. 13. GERD prophylaxis. Proton pump inhibitor. Disposition and plan: We'll check CT scan of the head. We'll get neurology reevaluation. Continue ICU monitoring Discussed plan of care with Dr. Raymundo Critical care time: 30 minutes Problems: Subjective 24 Hr Interval Summary Free Text/Dictation Still lethargic. Remains on O2 6 L nasal cannula and tolerating well. Exam/Review of Systems Vital Signs Vitals Vital Signs Date Time Temp Pulse Resp B/P Pulse Ox O2 Delivery O2 Flow Rate FiO2 03/08/16 13:29 104 28 96 Nasal Cannula 5.0 12/23/16 06:00 187/92 03/08/16 05:00 100.0 03/06/16 15:12 40 Intake and Output 03/07/16 03/07/16 03/08/16 15:00 23:00 07:00 Intake Total 956 ml 1000 ml 908 ml Output Total 1225 ml 815 ml 655 ml Balance -269 ml 185 ml 253 ml Exam General: extubated. somnolent. no apparent distress Eyes: pupils equal round, Anicteric sclera Neck: Supple nontender, no JVD Cardiac: S1, S2 auscultated, regular rhythm and rate Pulmonary: no wheezing/rales GI: Bowel sounds active. Slightly distended Extremities: Edema bilateral lower and upper extremities +2 Skin: Clean dry and intact Neurologic: awakens to verbal response, lethargic Results Result Diagram: 03/08/1644203/08/16442 Results 24 hrs Laboratory Tests Test 03/07/16 18:23 03/07/16 23:05 03/07/16 23:48 03/08/16 04:43 Bedside Glucose 175 203 Activated Partial Thromboplast Time 72.4 *H 88.9 *H Alanine Aminotransferase (ALT/SGPT) 36 Albumin 3.6 Alkaline Phosphatase 160 H Anion Gap 20 H Aspartate Amino Transf (AST/SGOT) 39 Basophils # Basophils % Blood Morphology Comment Blood Urea Nitrogen 34 H Calcium Level 9.5 Carbon Dioxide Level 27 Chloride Level 112 H Creatinine 1.59 H Differential Comment MANUAL DIFF Direct Bilirubin 0.00 Eosinophils # 0.2 Eosinophils % 1.0 Glucose Level 196 Hematocrit 27.5 L Hemoglobin 8.9 L Indirect Bilirubin 0.2 Lymphocytes # 1.9 Lymphocytes % 12.0 L Mean Corpuscular Hemoglobin 26.4 L Mean Corpuscular Hemoglobin Concent 32.5 Mean Corpuscular Volume 81.2 L Mean Platelet Volume 8.6 Monocytes # 0.8 Monocytes % 5.0 Myelocytes # 0.2 Myelocytes % 1.0 H Neutrophils # 13.0 H Neutrophils % 81.0 H Nucleated Red Blood Cells # Nucleated Red Blood Cells % Platelet Count 511 H Polychromasia 1+ Potassium Level 4.1 Red Blood Count 3.38 L Red Cell Distribution Width 16.6 H Sodium Level 155 H Target Cells 1+ Total Bilirubin 0.2 Total Protein 7.4 White Blood Count 16.0 H Test 03/08/16 05:29 03/08/16 12:30 Bedside Glucose 210 178 Medications Medications Current Medications Ondansetron HCl (Zofran Inj) 4 mg Q6H PRN IV NAUSEA AND/OR VOMITING; Start 02/18/16 at 09:30 Acetaminophen (Tylenol Supp) 650 mg Q4H PRN [place] PAIN LEVEL 1-3 OR FEVER Last administered on 02/24/16at 14:32; Admin Dose 650 MG; Start 02/18/16 at 09:30 Morphine Sulfate (morphine) 2 mg Q4H PRN IV PAIN LEVEL 7-10 Last administered on 03/08/16at 10:30; Admin Dose 2 MG; Start 02/18/16 at 09:30 Bisacodyl (Dulcolax Supp) 10 mg DAILY PRN [place] CONSTIPATION; Start 02/18/16 at 09 :30 Pantoprazole (Protonix Iv) 40 mg DAILY@06 IV Last administered on 03/08/16at 05 :39; Admin Dose 40 MG; Start 02/19/16 at 06:00 Metoprolol Tartrate (Lopressor) 5 mg Q4H PRN IV HR>55 Hold SBP<100 Last administered on 03/08/16at 07:00; Admin Dose 5 MG; Start 02/21/16 at 11:30 IV Flush (NS 10 ml) 10 ml PRN PRN IV IV PROTOCOL; Start 02/21/16 at 18:30 Ferrous Sulfate (Feosol Liquid Cup) 300 mg BID GTB Last administered on at 08:47; Admin Dose 300 MG; Start 02/22/16 at 10:00 Lorazepam (Ativan) 1 mg Q1H PRN IV ANXIETY Last administered on 03/07/16at 06: 01; Admin Dose 1 MG; Start 02/23/16 at 11:30 Miscellaneous Information 1 ea NOTE XX ; Start 02/23/16 at 23:15 Glucose (Glutose) 22.5 gm Q15M PRN PO DECREASED GLUCOSE; Start 02/23/16 at 23: 15 Dextrose (D50w Syringe) 25 ml Q15M PRN IV DECREASED GLUCOSE; Start 02/23/16 at 23:15 Dextrose (D50w Syringe) 50 ml Q15M PRN IV DECREASED GLUCOSE; Start 02/23/16 at 23:15 Glucagon (Glucagen) 1 mg Q15M PRN IM DECREASED GLUCOSE; Start 02/23/16 at 23:15 Glucose 15 gm 15 gm Q15M PRN BUCCAL DECREASED GLUCOSE; Start 02/23/16 at 23:15 Levetiracetam/ Sodium Chloride (Keppra Iv/NS) 110 ml @ 440 mls/hr BID IVPB Last administered on 03/08/16at 08:50; Admin Dose 440 MLS/HR; Start 02/24/16 at 01:00 Insulin Aspart (Novolog Insulin Pen) NOVOLOG *MILD* ALGORI... Q6 SC Last administered on 03/08/16 12:34; Admin Dose 1 UNIT; Start 02/26/16 at 18:00 Furosemide (Lasix) 20 mg DAILY IV Last administered on 03/08/16 08:39; Admin Dose 20 MG; Start 02/27/16 at 09:00 Metoclopramide HCl (Reglan) 10 mg Q6 IV Last administered on 03/08/16 12:17; Admin Dose 10 MG; Start 03/04/16 at 06:00 Acetaminophen (Tylenol Tab) 650 mg Q6H PRN NGT PAIN AND OR ELEVATED TEMP Last administered on 03/08/16at 05:42; Admin Dose 650 MG; Start 03/06/16 at 11:30 Amlodipine Besylate (Norvasc) 5 mg BID NGT Last administered on 03/08/16at 08: 49; Admin Dose 5 MG; Start 03/06/16 at 09:00 Glucose (Glutose) 15 gm Q15M PRN NGT DECREASED GLUCOSE; Start 03/06/16 at 08: 45 Hydralazine HCl (Apresoline) 100 mg Q8 NGT Last administered on 03/08/16at 05: 41; Admin Dose 100 MG; Start 03/06/16 at 14:00 Metoprolol Tartrate (Lopressor) 150 mg Q8 NGT Last administered on 03/08/16 05:40; Admin Dose 150 MG; Start 03/06/16 at 14:00 Metronidazole (Flagyl) 500 mg Q8 NGT Last administered on 03/08/16at 05:40; Admin Dose 500 MG; Start 03/06/16 at 14:00 Hydralazine HCl (Apresoline) 10 mg Q4H PRN IV ELEVATED SYSTOLIC BP Last administered on 03/08/16at 11:57; Admin Dose 10 MG; Start 03/06/16 at 16:00 Minoxidil 7.5 mg 7.5 mg BID NGT Last administered on 03/08/16at 08:48; Admin Dose 7.5 MG; Start 03/07/16 at 21:00 Dextrose (D5W) 1,000 ml @ 80 mls/hr [id number] IV Last administered on at 12:26; Admin Dose 80 MLS/HR; Start 03/08/16 at 11:30 Diltiazem HCl (Cardizem) 30 mg Q8 PO ; Start 03/08/16 at 14:00 REJI WADE Mar 08, 2016 13:59
[2016-03-08] MEDS: DILTIAZEM 30 MG TAB PO SCH ×2 (14:25→21:33)
--- NOTE | 2016-03-08 16:15 | RADRPT ---
PROCEDURE: CT Brain without contrast. CLINICAL INDICATION: Altered mental status. Encephalopathy. TECHNIQUE: A CT of the brain was performed on a multidetector CT scanner utilizing axial sections from the skull base through the vertex without contrast. Images were reviewed on a high-resolution [employer] workstation. Exam CTDI = 44.33 mGy and the DLP = 720.23 mGy-cm. COMPARISON: 02/23/2016 FINDINGS: Mild diffuse cerebral and cerebellar atrophy is present. There is proportionate dilatation of the v entricular system and sulci in a symmetric fashion. There is prominence of the extraaxial spaces sec ondary to atrophy. There has been slight interval increase in size of bilateral lateral ventricles w ith less effacement of the cortical sulci at the vertex. There is no evidence of intracranial hemor rhage, mass effect or midline shift. No abnormal intra-axial or extra-axial fluid collections are s een. The density of the brain is normal and the spears/white matter differentiation is well preserved . Mild to moderate patchy diffuse deep white matter microangiopathic ischemic change is seen. Th e osseous structures are unremarkable. Moderate mucosal thickening is seen in the ethmoidal air monica ls. Frothy secretions are seen layering in the sphenoid sinuses. IMPRESSION: 1. No intracranial hemorrhage, mass effect or midline shift. 2. Slight interval increase in size of bilateral lateral ventricles. This is likely related to impr oving mild cerebral edema rather than enlarging ventricles as there is less effacement of the cortic al sulci at the vertex. 3. Mild generalized atrophy. Mild to moderate microangiopathic ischemic change. RPTAT: BB .Jose Jo MD, MD Date Time Electronically viewed and signed by .Jose Jo MD, MD on 03/08/2016 16:15 .O/
--- NOTE | 2016-03-08 16:23 | CONS ---
Date/Time of Note Date/Time of Note DATE: 03/08/16 TIME: 16:22 Assessment/Plan Assessment/Plan Chief Complaint/Hosp Course Assessment/Plan 1. Acute kidney injury, likely secondary to acute tubular necrosis from contrast-induced nephropathy and also secondary to ischemic acute tubular necrosis from aortic dissection. 2. A type B [place] aortic dissection. 3. Hypertension 4. acute resp failiure intubated on ventilator 5 edema 6 hypernatremia plan ck lytes LASIX PRN CK bmp po water Problems: Consultation Date/Type/Reason Admit Date/Time Feb 18, 2016 at 09:14 Initial Consult Date 02/26/16 Type of Consultation: Cardiology Referring Provider: ANAYA BREWSTER MD, [facility] Exam/Review of Systems Vital Signs Vitals Vital Signs Date Time Temp Pulse Resp B/P Pulse Ox O2 Delivery O2 Flow Rate FiO2 03/08/16 13:29 104 28 96 Nasal Cannula 5.0 03/08/16 06:00 187/92 03/08/16 05:00 100.0 03/06/16 15:12 40 Intake and Output 03/07/16 03/07/16 03/08/16 15:00 23:00 07:00 Intake Total 956 ml 1000 ml 908 ml Output Total 1225 ml 815 ml 655 ml Balance -269 ml 185 ml 253 ml Exam Neck: supple Respiratory: clear to auscultation Cardiovascular: regular rate and rhythm Gastrointestinal: soft Extremities: edema (++) Results Result Diagram: 03/08/16 0443 03/08/16 0443 Results 24 hrs Laboratory Tests Test 03/07/16 18:23 03/07/16 23:05 03/07/16 23:48 03/08/16 04:43 Bedside Glucose 175 203 Activated Partial Thromboplast Time 72.4 *H 88.9 *H Alanine Aminotransferase (ALT/SGPT) 36 Albumin 3.6 Alkaline Phosphatase 160 H Anion Gap 20 H Aspartate Amino Transf (AST/SGOT) 39 Basophils # Basophils % Blood Morphology Comment Blood Urea Nitrogen 34 H Calcium Level 9.5 Carbon Dioxide Level 27 Chloride Level 112 H Creatinine 1.59 H Differential Comment MANUAL DIFF Direct Bilirubin 0.00 Eosinophils # 0.2 Eosinophils % 1.0 Glucose Level 196 Hematocrit 27.5 L Hemoglobin 8.9 L Indirect Bilirubin 0.2 Lymphocytes # 1.9 Lymphocytes % 12.0 L Mean Corpuscular Hemoglobin 26.4 L Mean Corpuscular Hemoglobin Concent 32.5 Mean Corpuscular Volume 81.2 L Mean Platelet Volume 8.6 Monocytes # 0.8 Monocytes % 5.0 Myelocytes # 0.2 Myelocytes % 1.0 H Neutrophils # 13.0 H Neutrophils % 81.0 H Nucleated Red Blood Cells # Nucleated Red Blood Cells % Platelet Count 511 H Polychromasia 1+ Potassium Level 4.1 Red Blood Count 3.38 L Red Cell Distribution Width 16.6 H Sodium Level 155 H Target Cells 1+ Total Bilirubin 0.2 Total Protein 7.4 White Blood Count 16.0 H Test 03/08/16 05:29 03/08/16 12:30 Bedside Glucose 210 178 Medications Medications Current Medications Ondansetron HCl (Zofran Inj) 4 mg Q6H PRN IV NAUSEA AND/OR VOMITING; Start 02/18/16 at 09:30 Acetaminophen (Tylenol Supp) 650 mg Q4H PRN [place] PAIN LEVEL 1-3 OR FEVER Last administered on 02/24/16at 14:32; Admin Dose 650 MG; Start 02/18/16 at 09:30 Morphine Sulfate (morphine) 2 mg Q4H PRN IV PAIN LEVEL 7-10 Last administered on 03/08/16at 10:30; Admin Dose 2 MG; Start 02/18/16 at 09:30 Bisacodyl (Dulcolax Supp) 10 mg DAILY PRN [place] CONSTIPATION; Start 02/18/16 at 09 :30 Pantoprazole (Protonix Iv) 40 mg DAILY@06 IV Last administered on 03/08/16at 05 :39; Admin Dose 40 MG; Start 02/19/16 at 06:00 Metoprolol Tartrate (Lopressor) 5 mg Q4H PRN IV HR>55 Hold SBP<100 Last administered on 03/08/16at 07:00; Admin Dose 5 MG; Start 02/21/16 at 11:30 IV Flush (NS 10 ml) 10 ml PRN PRN IV IV PROTOCOL; Start 02/21/16 at 18:30 Ferrous Sulfate (Feosol Liquid Cup) 300 mg BID GTB Last administered on at 08:47; Admin Dose 300 MG; Start 02/22/16 at 10:00 Lorazepam (Ativan) 1 mg Q1H PRN IV ANXIETY Last administered on 03/07/16at 06: 01; Admin Dose 1 MG; Start 02/23/16 at 11:30 Miscellaneous Information 1 ea NOTE XX ; Start 02/23/16 at 23:15 Glucose (Glutose) 22.5 gm Q15M PRN PO DECREASED GLUCOSE; Start 02/23/16 at 23: 15 Dextrose (D50w Syringe) 25 ml Q15M PRN IV DECREASED GLUCOSE; Start 02/23/16 at 23:15 Dextrose (D50w Syringe) 50 ml Q15M PRN IV DECREASED GLUCOSE; Start 02/23/16 at 23:15 Glucagon (Glucagen) 1 mg Q15M PRN IM DECREASED GLUCOSE; Start 02/23/16 at 23:15 Glucose 15 gm 15 gm Q15M PRN BUCCAL DECREASED GLUCOSE; Start 02/23/16 at 23:15 Levetiracetam/ Sodium Chloride (Keppra Iv/NS) 110 ml @ 440 mls/hr BID IVPB Last administered on 03/08/16at 08:50; Admin Dose 440 MLS/HR; Start 02/24/16 at 01:00 Insulin Aspart (Novolog Insulin Pen) NOVOLOG *MILD* ALGORI... Q6 SC Last administered on 03/08/16at 12:34; Admin Dose 1 UNIT; Start 02/26/16 at 18:00 Furosemide (Lasix) 20 mg DAILY IV Last administered on 03/08/16at 08:39; Admin Dose 20 MG; Start 02/27/16 at 09:00 Metoclopramide HCl (Reglan) 10 mg Q6 IV Last administered on 03/08/16at 12:17; Admin Dose 10 MG; Start 03/04/16 at 06:00 Acetaminophen (Tylenol Tab) 650 mg Q6H PRN NGT PAIN AND OR ELEVATED TEMP Last administered on 03/08/16at 05:42; Admin Dose 650 MG; Start 03/06/16 at 11:30 Amlodipine Besylate (Norvasc) 5 mg BID NGT Last administered on 03/08/16at 08: 49; Admin Dose 5 MG; Start 03/06/16 at 09:00 Glucose (Glutose) 15 gm Q15M PRN NGT DECREASED GLUCOSE; Start 03/06/16 at 08: 45 Hydralazine HCl (Apresoline) 100 mg Q8 NGT Last administered on 03/08/16 05: 41; Admin Dose 100 MG; Start 03/06/16 at 14:00 Metoprolol Tartrate (Lopressor) 150 mg Q8 NGT Last administered on 03/08/16 14:27; Admin Dose 150 MG; Start 03/06/16 at 14:00 Metronidazole (Flagyl) 500 mg Q8 NGT Last administered on 03/08/16 14:25; Admin Dose 500 MG; Start 03/06/16 at 14:00 Hydralazine HCl (Apresoline) 10 mg Q4H PRN IV ELEVATED SYSTOLIC BP Last administered on 03/08/16 11:57; Admin Dose 10 MG; Start 03/06/16 at 16:00 Minoxidil 7.5 mg 7.5 mg BID NGT Last administered on 03/08/16 08:48; Admin Dose 7.5 MG; Start 03/07/16 at 21:00 Dextrose (D5W) 1,000 ml @ 80 mls/hr [id number] IV Last administered on 12:26; Admin Dose 80 MLS/HR; Start 03/08/16 at 11:30 Diltiazem HCl (Cardizem) 30 mg Q8 PO Last administered on 03/08/16 14:25; Admin Dose 30 MG; Start 03/08/16 at 14:00 SASHA OWEN MD Mar 08, 2016 16:23
--- NOTE | 2016-03-08 17:40 | PN ---
DATE: 03/08/2016 SUBJECTIVE: The patient remains unchanged, spiked a fever of 101.2 last night, this morning was 101 .1. He is lethargic, comfortable on face mask. Pulse is 100, respirations 25, blood pressure 187/92, saturation 95% on 5 liters. WBC 16, H and H 8.9 and 27.5, platelets 511, neutrophils 81. BUN 34, creatinine 1.59. INDWELLINGS: The patient has a Smalls catheter, right upper extremity PICC line and rectal tube. PHYSICAL EXAMINATION: GENERAL: This is a well-developed, ill-appearing, middle-aged -[place] man who is in no dis tress. HEENT: Head atraumatic, normocephalic. Sclerae anicteric. Buccal mucosa dry. NECK: Supple, trachea midline. CHEST: Rise symmetrical. Breath sounds diminished to bases. ABDOMEN: Distended. Soft. Bowel tones hypoactive. EXTREMITIES: Without cyanosis. Bilateral edema. ASSESSMENT: 1. Systemic inflammatory response syndrome with on and off fevers, rule out acute aspiration. 2. Acute respiratory failure status post extubation. 3. Pulmonary edema. 4. Accelerated hypertension with persistent hypertension. 5. Type B aortic dissection. 6. Status epilepticus. PLAN: The patient remains unchanged. Holding off after extubation continue holding off post e xtubation. He is spiking fevers, and we will repeat cultures for that. Follow chest x-ray in a.m. Continue management as per primary team and consultants. Dictated By: [facility] for YESIKA LOPEZ/EFRAIN Conf#: [id number] DID#: [id number]
--- NOTE | 2016-03-08 18:59 | PN ---
Date/Time of Note Date/Time of Note DATE: 03/08/16 TIME: 18:59 Assessment/Plan Lines/Catheters IV Catheter Type (from Nrsg): PICC Line Smalls in Place (from Nrsg): Yes Assessment/Plan Chief Complaint/Hosp Course IMPRESSION: Type B aortic dissection. The patient's blood pressure more controlled RECOMMENDATIONS: At this time, we would continue blood pressure management, monitor vital signs and laboratory values in an intensive care unit setting. Vent support per pulm medicine No plan for surgery. Abx Repeat CTA Dissection involving the thoracic aorta arising distal to the origin of the left subclavian artery and extending into the abdominal aorta. The distal extent was not included on the study. Flow within both true and false lumen to the level of the celiac artery. Would continue BP control , Vent support Type B aortic dissection PE, OK to start anticoagulation no plan for surgery at this time I discussed with the patient and Dr. Mccabe and staff Problems: Subjective 24 Hr Interval Summary Constitutional: improved Pain Control: mild Exam/Review of Systems Vital Signs Vitals Vital Signs Date Time Temp Pulse Resp B/P Pulse Ox O2 Delivery O2 Flow Rate FiO2 03/08/16 18:36 95 5.0 03/08/16 16:00 93 03/08/16 13:29 28 Nasal Cannula 03/08/16 06:00 187/92 03/08/16 05:00 100.0 03/06/16 15:12 40 Intake and Output 03/07/16 03/07/16 03/08/16 15:00 23:00 07:00 Intake Total 956 ml 1000 ml 908 ml Output Total 1225 ml 815 ml 655 ml Balance -269 ml 185 ml 253 ml Exam ENMT: mucosa pink and moist, nl external ears & nose, nl lips & teeth, nl nasal mucosa & septum Neck: non-tender, supple Respiratory: clear to auscultation, normal air movement Cardiovascular: nl pulses, regular rate and rhythm Gastrointestinal: nl liver, spleen, non-tender, soft Results Result Diagram: 03/08/16 0443 03/08/16 044 KAYLYN RADFORD MD Mar 08, 2016 18:59
[2016-03-09] VITALS (74 sets, daily range): BP systolic 123–222; BP diastolic 63–110; PULSE 71–110; RESP 19–39
[2016-03-09] MEDS: METOCLOPRAMIDE 10 MG INJ IV SCH ×4 (00:45→17:19)
[2016-03-09] MEDS: hydrALAzine 20 MG INJ IV PRN ×3 (00:46→10:52)
[2016-03-09] MEDS: INSULIN ASPART [NOVOLOG] 3 ML PEN SC SCH ×4 (00:58→18:04)
[2016-03-09] MEDS: ALBUTEROL/IPRATROPIUM (NEB) 3 ML AMP HHN SCH ×4 (01:23→20:05)
[2016-03-09 05:31] LABS: POTASSIUM 3.7 mmol/L (3.5-5.1)
[2016-03-09 05:34] LABS: CREATININE 1.77 mg/dl (0.61-1.24)
[2016-03-09 05:35] LABS: CALCIUM 9.4 mg/dl (8.4-10.2)
[2016-03-09 06:00] LABS: BASOPHIL # 0.1 10^3/ul (0.0-0.1); BASOPHILS % 0.7 % (0.0-2.0); EOSINOPHILS # 0.1 10^3/ul (0.0-0.5); EOSINOPHILS % 0.7 % (0.0-7.0); HEMATOCRIT 27.2 % (42.0-52.0); HEMOGLOBIN 8.9 g/dl (14.0-18.0); LYMPHOCYTES # 1.7 10^3/ul (0.8-2.9); LYMPHOCYTES % 10.3 % (15.0-51.0); MEAN CORPUSCULAR HEMOGLOBIN 26.8 pg (29.0-33.0); MEAN CORPUSCULAR HGB CONC 32.8 g/dl (32.0-37.0); MEAN CORPUSCULAR VOLUME 81.5 fl (82.0-101.0); MEAN PLATELET VOLUME 9.2 fl (7.4-10.4); MONOCYTES % 6.1 % (0.0-11.0); NEUTROPHIL # 13.7 10^3/ul (1.6-7.5); NEUTROPHILS % 82.2 % (39.0-77.0); PLATELET COUNT 515 10^3/UL (140-440); RED BLOOD COUNT 3.34 10^6/ul (4.70-6.10); RED CELL DISTRIBUTION WIDTH 17.5 % (11.5-14.5); UNCORRECTED WBC 16.7 10^3/ul (4.8-10.8); WHITE BLOOD COUNT 16.7 10^3/ul (4.8-10.8)
[2016-03-09] MEDS: DEXTROSE 5% 1,000 ML IV SCH ×3 (06:03→18:33)
[2016-03-09] MEDS: metroNIDAZOLE 500 MG TAB NGT SCH ×2 (06:03→13:36)
[2016-03-09] MEDS: METOPROLOL 100 MG TAB NGT SCH ×3 (06:04→22:07)
[2016-03-09] MEDS: ACETAMINOPHEN 325 MG TAB NGT PRN ×2 (06:05→18:10)
[2016-03-09] MEDS: DILTIAZEM 30 MG TAB PO SCH (06:22)
[2016-03-09] MEDS: PANTOPRAZOLE 40 MG INJ IV SCH (06:22)
[2016-03-09 06:56] LABS: CONDITION 1; LH ANALYZER COMMENTS 1
[2016-03-09] MEDS: HEPARIN 25000 UNITS/250 ML 250 ML IV SCH ×3 (07:06→17:30)
[2016-03-09] MEDS: FERROUS SULFATE 60 MG/ML 5ML CUP GTB SCH ×2 (08:36→22:06)
[2016-03-09] MEDS: MINOXIDIL 2.5 MG TAB NGT SCH (08:40)
[2016-03-09] MEDS: LEVETIRACETAM IV 1,000 MG in SOD CHLORIDE 0.9% 100 ML IVPB SCH ×2 (08:41→22:46)
[2016-03-09] MEDS: FUROSEMIDE 20 MG INJ IV SCH (08:41)
--- NOTE | 2016-03-09 10:29 | RADRPT ---
PROCEDURE: XR Chest. CLINICAL INDICATION: Shortness of breath. TECHNIQUE: Single frontal view. COMPARISON: 03/07/2016. FINDINGS: The right arm PICC line and nasogastric tube remain in satisfactory position. Pulmonary edema is un changed. The heart is enlarged. There is a small right pleural effusion. There is no left pleural effusion. There is no pneumothorax. IMPRESSION: 1. No change from 03/07/2016. RPTAT: QQ .Bk Lujan MD, MD Date Time Electronically viewed and signed by .Bk Lujan MD, MD on 03/09/2016 10:29 .R/
--- NOTE | 2016-03-09 10:57 | RADRPT ---
PROCEDURE: XR Chest. 03/09/2016. 1041 hours. CLINICAL INDICATION: Shortness of breath. TECHNIQUE: Single frontal view. COMPARISON: 03/09/2016. 0804 hours. FINDINGS: The nasogastric tube and right arm PICC line remain in satisfactory position. Pulmonary edema is un changed. The heart is enlarged. There is a small right pleural effusion. There is no left pleural effusion. There is no pneumothorax. IMPRESSION: 1. No change from the prior study done earlier the same day. 2. No pneumothorax. RPTAT: QQ .Bk Lujan MD, MD Date Time Electronically viewed and signed by .Bk Lujan MD, on 03/09/2016 10:57 .R/
[2016-03-09 11:12] LABS: AADO2 Arterial 172.6 mmHg (7.0-24.0); Allen Test ACCEPTAB; Arterial COHb 0.3 % (0.0-3.0); Arterial Fraction of Oxyhgb 91.3 % (93.0-99.0); Arterial HCO3 27.4 mmol/L (22.0-26.0); Arterial MetHb 0.2 % (0.0-1.5); Arterial Total Hemglobin 9.8 g/dl (12.0-18.0); MODE NASAL CANNULA
[2016-03-09] MEDS: morphine 2 MG INJ IV PRN (11:48)
[2016-03-09] MEDS: METOPROLOL 5 MG INJ IV PRN (12:08)
--- NOTE | 2016-03-09 12:08 | CONS ---
Date/Time of Note Date/Time of Note DATE: 03/09/16 TIME: 12:03 Assessment/Plan Assessment/Plan Additional Assessment/Plan 1. Acute kidney injury due to ATN from sepsis 2. Systemic inflammatory response syndrome 3.. Acute respiratory failure status post extubation. 4. Accelerated hypertension with persistent hypertension.- difficult ot manage HTN 5. Type B aortic dissection. 6. Status epilepticus. 7. Hypernatremia Plan: making good urine, Cr 1.7, Increase Free water to 300 ml PO Q 8r Increase cardizemn to 60mg PO Q 8 hr, Continue other BP meds will hold off on ACEI/ARB at this time, but if needed then we will add it for better BP control will follow up Consultation Date/Type/Reason Admit Date/Time Feb 18, 2016 at 09:14 Type of Consultation: NEPHROLOGY Referring Provider: MOSES HARRIS MD 24 HR Interval Summary Free Text/Dictation Na still high, Cr 1.7, making good urine output Exam/Review of Systems Vital Signs Vitals Vital Signs Date Time Temp Pulse Resp B/P Pulse Ox O2 Delivery O2 Flow Rate FiO2 03/09/16 09:43 80 18 96 Nasal Cannula 6.0 03/09/16 09:30 98.8 174/87 03/06/16 15:12 40 Intake and Output 03/08/16 03/08/16 03/09/16 15:00 23:00 07:00 Intake Total 888 ml 510 ml 2160 ml Output Total 910 ml 700 ml 950 ml Balance -22 ml -190 ml 1210 ml Exam HEENT: Head atraumatic, normocephalic. Sclerae anicteric. Buccal mucosa dry. NECK: Supple, trachea midline.NG tube in place CHEST: Rise symmetrical. Breath sounds diminished to bases. ABDOMEN: Distended. Soft. Bowel tones hypoactive. EXTREMITIES: Without cyanosis. Bilateral edema. Results Result Diagram: 03/09/160 03/09/16 0440 Results 24 hrs Laboratory Tests Test 03/08/16 12:30 03/08/16 18:16 03/09/16 00:30 03/09/16 04:40 Bedside Glucose 178 165 203 Activated Partial Thromboplast Time 97.1 *H Anion Gap 16 Basophils # 0.1 Basophils % 0.7 Blood Morphology Comment Blood Urea Nitrogen 33 H Calcium Level 9.4 Carbon Dioxide Level 30 Chloride Level 110 Creatinine 1.77 H Eosinophils # 0.1 Eosinophils % 0.7 Glucose Level 191 Hematocrit 27.2 L Hemoglobin 8.9 L Lymphocytes # 1.7 Lymphocytes % 10.3 L Mean Corpuscular Hemoglobin 26.8 L Mean Corpuscular Hemoglobin Concent 32.8 Mean Corpuscular Volume 81.5 L Mean Platelet Volume 9.2 Monocytes # 1.0 H Monocytes % 6.1 Neutrophils # 13.7 H Neutrophils % 82.2 H Nucleated Red Blood Cells # 0.0 Nucleated Red Blood Cells % 0.0 Platelet Count 515 H Potassium Level 3.7 Red Blood Count 3.34 L Red Cell Distribution Width 17.5 H Sodium Level 152 H White Blood Count 16.7 H Test 03/09/16 05:44 03/09/16 10:13 Bedside Glucose 195 Arterial Blood HCO3 27.4 H Arterial Blood Base Excess 4.0 H Arterial Blood Oxygen Saturation 91.8 L Jovanny Test ACCEPTAB Arterial Blood Gas Puncture Site Right Radial Arterial Blood Carboxyhemoglobin 0.3 Arterial Blood Date Drawn 03/09/2016 11:00:52 AM Arterial Blood Methemoglobin 0.2 Arterial Blood pCO2 (Temp correct) 36.3 Arterial Blood pH (Temp corrected) 7.495 H Arterial Blood pO2 (Temp corrected) 63.6 L Blood Gas A-a O2 Differential 172.6 H Blood Gas Modality NASAL CANNULA Blood Gas Notified Time 03/09/2016 11:12:11 AM Blood Gas Notified Carrillo DELEON Blood Gas Specimen Source Blood arterial Blood Gas Temperature 37.0 FiO2 39.0 Oxyhemoglobin Percent 91.3 L Total Hemoglobin 9.8 L Medications Medications Current Medications Ondansetron HCl (Zofran Inj) 4 mg Q6H PRN IV NAUSEA AND/OR VOMITING; Start 02/18/16 at 09:30 Acetaminophen (Tylenol Supp) 650 mg Q4H PRN [place] PAIN LEVEL 1-3 OR FEVER Last administered on 02/24/16at 14:32; Admin Dose 650 MG; Start 02/18/16 at 09:30 Morphine Sulfate (morphine) 2 mg Q4H PRN IV PAIN LEVEL 7-10 Last administered on 03/08/16at 10:30; Admin Dose 2 MG; Start 02/18/16 at 09:30 Bisacodyl (Dulcolax Supp) 10 mg DAILY PRN [place] CONSTIPATION; Start 02/18/16 at 09 :30 Pantoprazole (Protonix Iv) 40 mg DAILY@06 IV Last administered on 03/09/16at 06 :22; Admin Dose 40 MG; Start 02/19/16 at 06:00 Metoprolol Tartrate (Lopressor) 5 mg Q4H PRN IV HR>55 Hold SBP<100 Last administered on 03/08/16at 07:00; Admin Dose 5 MG; Start 02/21/16 at 11:30 IV Flush (NS 10 ml) 10 ml PRN PRN IV IV PROTOCOL; Start 02/21/16 at 18:30 Ferrous Sulfate (Feosol Liquid Cup) 300 mg BID GTB Last administered on at 08:36; Admin Dose 300 MG; Start 02/22/16 at 10:00 Lorazepam (Ativan) 1 mg Q1H PRN IV ANXIETY Last administered on 03/07/16at 06: 01; Admin Dose 1 MG; Start 02/23/16 at 11:30 Miscellaneous Information 1 ea NOTE XX ; Start 02/23/16 at 23:15 Glucose (Glutose) 22.5 gm Q15M PRN PO DECREASED GLUCOSE; Start 02/23/16 at 23: 15 Dextrose (D50w Syringe) 25 ml Q15M PRN IV DECREASED GLUCOSE; Start 02/23/16 at 23:15 Dextrose (D50w Syringe) 50 ml Q15M PRN IV DECREASED GLUCOSE; Start 02/23/16 at 23:15 Glucagon (Glucagen) 1 mg Q15M PRN IM DECREASED GLUCOSE; Start 02/23/16 at 23:15 Glucose 15 gm 15 gm Q15M PRN BUCCAL DECREASED GLUCOSE; Start 02/23/16 at 23:15 Levetiracetam/ Sodium Chloride (Keppra Iv/NS) 110 ml @ 440 mls/hr BID IVPB Last administered on 03/09/16at 08:41; Admin Dose 440 MLS/HR; Start 02/24/16 at 01:00 Insulin Aspart (Novolog Insulin Pen) NOVOLOG *MILD* ALGORI... Q6 SC Last administered on 03/09/16at 06:10; Admin Dose 2 UNIT; Start 02/26/16 at 18:00 Furosemide (Lasix) 20 mg DAILY IV Last administered on 03/09/16at 08:41; Admin Dose 20 MG; Start 02/27/16 at 09:00 Metoclopramide HCl (Reglan) 10 mg Q6 IV Last administered on 03/09/16 06:03; Admin Dose 10 MG; Start 03/04/16 at 06:00 Acetaminophen (Tylenol Tab) 650 mg Q6H PRN NGT PAIN AND OR ELEVATED TEMP Last administered on 03/09/16 06:05; Admin Dose 650 MG; Start 03/06/16 at 11:30 Amlodipine Besylate (Norvasc) 5 mg BID NGT Last administered on 03/08/16 21: 31; Admin Dose 5 MG; Start 03/06/16 at 09:00 Glucose (Glutose) 15 gm Q15M PRN NGT DECREASED GLUCOSE; Start 03/06/16 at 08: 45 Hydralazine HCl (Apresoline) 100 mg Q8 NGT Last administered on 03/09/16 06: 56; Admin Dose 100 MG; Start 03/06/16 at 14:00 Metoprolol Tartrate (Lopressor) 150 mg Q8 NGT Last administered on 03/09/16 06:04; Admin Dose 150 MG; Start 03/06/16 at 14:00 Metronidazole (Flagyl) 500 mg Q8 NGT Last administered on 03/09/16 06:03; Admin Dose 500 MG; Start 03/06/16 at 14:00 Hydralazine HCl (Apresoline) 10 mg Q4H PRN IV ELEVATED SYSTOLIC BP Last administered on 03/09/16 10:52; Admin Dose 10 MG; Start 03/06/16 at 16:00 Minoxidil 7.5 mg 7.5 mg BID NGT Last administered on 03/09/16 08:40; Admin Dose 7.5 MG; Start 03/07/16 at 21:00 Dextrose (D5W) 1,000 ml @ 80 mls/hr [id number] IV Last administered on 06:03; Admin Dose 80 MLS/HR; Start 03/08/16 at 11:30 Diltiazem HCl (Cardizem) 30 mg Q8 PO Last administered on 03/09/16 06:22; Admin Dose 30 MG; Start 03/08/16 at 14:00 MOSES HARRIS MD Mar 09, 2016 12:08
[2016-03-09] MEDS: DILTIAZEM 60 MG TAB PO SCH ×2 (13:36→22:06)
--- NOTE | 2016-03-09 14:03 | CONS ---
DATE OF ADMISSION: 02/18/2016 DATE OF CONSULTATION: 03/09/2016 TYPE OF CONSULTATION: Neurology. Thank you for your kind referral for evaluation of encephalopathy and questionable seizures. HISTORY OF PRESENT ILLNESS: The patient is a 45-year-old gentleman who was admitted on the day of February, with hypertensive urgency. His ongoing medical problems include a type 2 aortic dissec tion. He was seen by a vascular surgeon, but no plans for intervention at that time, accelerated hy pertension, acute hypoxic respiratory failure status post extubation, aspiration pneumonia, acute ki dney injury, pulmonary embolism, anemia, positive bacteremia, status post sepsis, as well as encepha lopathy. He had some twitching which was noted on 02/23/2016. EEG was requested. The EEG showed e ncephalopathic slowing of background as well as possible epileptiform activity, left temporal fronta l sharps at times; so the patient was placed on Keppra. Still occasional twitches and tremulousness observed but no definite generalized seizures, according to the nurses. ALLERGIES: NONE. CURRENT MEDICATIONS: 1. Cardizem. 2. Minoxidil. 3. Apresoline. 4. Metoprolol. 5. Flagyl. 6. Norvasc. 7. Heparin. 8. Lasix. 9. Keppra 1000 twice daily. 10. Iron. 11. Lopressor p.r.n. SOCIAL HISTORY: No alcohol, tobacco, or drug use. FAMILY HISTORY: Unknown. REVIEW OF SYSTEMS: Unable to obtain, patient essentially not verbal. PHYSICAL EXAMINATION VITAL SIGNS: Temperature 98.8, pulse 80, 18 respirations, 174/87 blood pressure. GENERAL: Not in acute distress, lying in bed. HEENT: Normocephalic, atraumatic head. NECK: No carotid bruits. No thyromegaly. LUNGS: Clear phlegm. CARDIAC: Normal rhythm and sounds. ABDOMEN: Soft. EXTREMITIES: Bilateral upper and lower extremity edema. NEUROLOGIC: Patient is lethargic, but opens eyes to voice. He seems to follow simple commands, not verbal. Present response to visual threat bilaterally. Pupils sluggish from 3 to 2 mm bilaterally . Extraocular movements intact. Patient tracks visually. Corneal reflexes present bilaterally as well as gag. Symmetrical face. Decreased tone in extremities. No movements observed in upper or l ower extremities. The patient notes that he feels touch applied to extremities. Deep tendon reflex es 2+ throughout. No response to plantar stimulation. Coordination could not be assessed. Patient had another CAT scan of the head done yesterday, which shows slight interval increase in polo ateral ventricular size, but likely related to improving mild cerebral edema, rather than enlarging ventricles as it is less effacement of the cortical sulci at the vertex, in comparison to 02/23/2016 , so no other abnormality seen. LABORATORY DATA: Shows sodium 152, BUN 33, creatinine 1.77. Liver function tests within normal li mits, except for alkaline phosphatase 160. WBC count 16.7, hemoglobin 8.9, hematocrit 27, platelets 515, normal. Blood gas, from today, 7.49 pH, 36 pCO2 and 63 pO2, on nasal cannula, though saturat ion 91%. His PTT is 97. IMPRESSION: Encephalopathy, likely toxic metabolic type, secondary to ongoing medical problems such as pulmonary embolism, and pneumonia, renal insufficiency. During my examination, the patient exhibited bilateral, a [id number] tremor-like movements o f the shoulders, rather shivering-like movements of the shoulders. At the same time, the patient wa s still awake and following commands, so I do not think that this activity presented seizure. We co uld repeat the EEG. I think obtaining an MRI of the brain, when the patient is more stable, or stab le enough for MRI, would be reasonable to exclude any abnormality. Also, given his complete plegia in upper and lower extremities, probably it is reasonable to obtain MRI of the cervical spine, thoug h most likely it was related to ICU myopathy. I will check CK level. We can repeat EEG as well. Thank you very much for this interesting consultation. Dictated By: DEJUAN PEREZ/EFRAIN Conf#: [id number] DID#: [id number]
--- NOTE | 2016-03-09 14:05 | PN ---
Date/Time of Note Date/Time of Note DATE: 03/09/16 TIME: 13:58 Assessment/Plan VTE Prophylaxis VTE Prophylaxis Intervention: heparin Lines/Catheters IV Catheter Type (from Nrs): PICC Line Central line still needed: Yes Urinary Cath still in place: Yes Reason Cath still needed: other (indicate) (monitor I&O) Assessment/Plan Chief Complaint/Hosp Course Assessment and plan 1. Type B aortic dissection. Continue blood pressure control. Patient seen by vascular surgeon. No plan for surgical intervention at this time. Remains on oral antihypertensives 2. Accelerated hypertension. Continue control with oral antihypertensives. Follow-up with cardiology recommendations 3. Acute hypoxic respiratory failure. Suspect secondary to aspiration. Off ventilator at this time. cont o2. and bronchodilators as needed 4. Aspiration pneumonia. Continue antibiotics as per infectious disease consult. Continue aspiration precautions 5. Acute kidney injury, most probably secondary to hemodynamics. Nephrology following. Use nephrotoxic drugs with caution. Monitor renal panel 6. Left cephalic vein thrombosis. Continue elevation. Noted to be superficial 7. Pulmonary embolism (02/29/2016). On heparin at this time. Continue with thoracic surgeon recommendations 8. Iron deficiency anemia. Iron panel showing iron deficiency. Continue iron supplements. 9. Acute encephalopathy, most probably metabolic in origin. Per EEG done on 01/2016 showed generalized bihemispheric background slowing suggestive of bihemispheric subcortical dysfunction possibly from epileptiform activity. Continue on Keppra per neurology recs. continue neuro checks 10. S/P sepsis secondary to gram-positive bacteremia. Latest blood cultures are negative. On antibiotics as per infectious diseases. 12. DVT prophylaxis. heparin. 13. GERD prophylaxis. Proton pump inhibitor. Disposition and plan: Follow up with neurology recs. cont pulm hygiene. cont icu monitoring Discussed plan of care with Dr. Raymundo Critical care time: 30 minutes Problems: Subjective 24 Hr Interval Summary Free Text/Dictation lethargic, remains on o2 6lnc. seen with some incomprehensible speech. Exam/Review of Systems Vital Signs Vitals Vital Signs Date Time Temp Pulse Resp B/P Pulse Ox O2 Delivery O2 Flow Rate FiO2 03/09/16 13:56 86 22 93 Nasal Cannula 6.0 03/09/16 12:15 187/93 03/09/16 12:00 99.3 03/06/16 15:12 40 Intake and Output 1203/08/16 03/09/16 15:00 23:00 07:00 Intake Total 888 ml 510 ml 2210 ml Output Total 910 ml 700 ml 950 ml Balance -22 ml -190 ml 1260 ml Exam General: lethargic. seen with some labored breathing Eyes: pupils equal round, Anicteric sclera Neck: Supple nontender, no JVD Cardiac: S1, S2 auscultated, regular rhythm and rate Pulmonary: coarse lung sounds at bases GI: Bowel sounds active. non-distended Extremities: Edema bilateral lower and upper extremities +2 Skin: Clean dry and intact Neurologic: awakens to verbal response, lethargic Results Result Diagram: 03/09/16 0440 03/09/16 0440 Results 24 hrs Laboratory Tests Test 03/08/16 18:16 03/09/16 00:30 03/09/16 04:40 03/09/16 05:44 Bedside Glucose 165 203 195 Activated Partial Thromboplast Time 97.1 *H Anion Gap 16 Basophils # 0.1 Basophils % 0.7 Blood Morphology Comment Blood Urea Nitrogen 33 H Calcium Level 9.4 Carbon Dioxide Level 30 Chloride Level 110 Creatinine 1.77 H Eosinophils # 0.1 Eosinophils % 0.7 Glucose Level 191 Hematocrit 27.2 L Hemoglobin 8.9 L Lymphocytes # 1.7 Lymphocytes % 10.3 L Mean Corpuscular Hemoglobin 26.8 L Mean Corpuscular Hemoglobin Concent 32.8 Mean Corpuscular Volume 81.5 L Mean Platelet Volume 9.2 Monocytes # 1.0 H Monocytes % 6.1 Neutrophils # 13.7 H Neutrophils % 82.2 H Nucleated Red Blood Cells # 0.0 Nucleated Red Blood Cells % 0.0 Platelet Count 515 H Potassium Level 3.7 Red Blood Count 3.34 L Red Cell Distribution Width 17.5 H Sodium Level 152 H White Blood Count 16.7 H Test 03/09/16 10:13 03/09/16 11:55 03/09/16 12:20 Arterial Blood HCO3 27.4 H Arterial Blood Base Excess 4.0 H Arterial Blood Oxygen Saturation 91.8 L Jovanny Test ACCEPTAB Arterial Blood Gas Puncture Site Right Radial Arterial Blood Carboxyhemoglobin 0.3 Arterial Blood Date Drawn 03/09/2016 11:00:52 AM Arterial Blood Methemoglobin 0.2 Arterial Blood pCO2 (Temp correct) 36.3 Arterial Blood pH (Temp corrected) 7.495 H Arterial Blood pO2 (Temp corrected) 63.6 L Blood Gas A-a O2 Differential 172.6 H Blood Gas Modality NASAL CANNULA Blood Gas Notified Time 03/09/2016 11:12:11 AM Blood Gas Notified Carrillo DELEON Blood Gas Specimen Source Blood arterial Blood Gas Temperature 37.0 FiO2 39.0 Oxyhemoglobin Percent 91.3 L Total Hemoglobin 9.8 L Bedside Glucose 192 Activated Partial Thromboplast Time 116.3 *H Medications Medications Current Medications Ondansetron HCl (Zofran Inj) 4 mg Q6H PRN IV NAUSEA AND/OR VOMITING; Start 02/18/16 at 09:30 Acetaminophen (Tylenol Supp) 650 mg Q4H PRN [place] PAIN LEVEL 1-3 OR FEVER Last administered on 02/24/16at 14:32; Admin Dose 650 MG; Start 02/18/16 at 09:30 Morphine Sulfate (morphine) 2 mg Q4H PRN IV PAIN LEVEL 7-10 Last administered on 03/09/16at 11:48; Admin Dose 2 MG; Start 02/18/16 at 09:30 Bisacodyl (Dulcolax Supp) 10 mg DAILY PRN [place] CONSTIPATION; Start 02/18/16 at 09 :30 Pantoprazole (Protonix Iv) 40 mg DAILY@06 IV Last administered on 03/09/16at 06 :22; Admin Dose 40 MG; Start 02/19/16 at 06:00 Metoprolol Tartrate (Lopressor) 5 mg Q4H PRN IV HR>55 Hold SBP<100 Last administered on 03/09/16at 12:08; Admin Dose 5 MG; Start 02/21/16 at 11:30 IV Flush (NS 10 ml) 10 ml PRN PRN IV IV PROTOCOL; Start 02/21/16 at 18:30 Ferrous Sulfate (Feosol Liquid Cup) 300 mg BID GTB Last administered on at 08:36; Admin Dose 300 MG; Start 02/22/16 at 10:00 Lorazepam (Ativan) 1 mg Q1H PRN IV ANXIETY Last administered on 03/07/16at 06: 01; Admin Dose 1 MG; Start 02/23/16 at 11:30 Miscellaneous Information 1 ea NOTE XX ; Start 02/23/16 at 23:15 Glucose (Glutose) 22.5 gm Q15M PRN PO DECREASED GLUCOSE; Start 02/23/16 at 23: 15 Dextrose (D50w Syringe) 25 ml Q15M PRN IV DECREASED GLUCOSE; Start 02/23/16 at 23:15 Dextrose (D50w Syringe) 50 ml Q15M PRN IV DECREASED GLUCOSE; Start 02/23/16 at 23:15 Glucagon (Glucagen) 1 mg Q15M PRN IM DECREASED GLUCOSE; Start 02/23/16 at 23:15 Glucose 15 gm 15 gm Q15M PRN BUCCAL DECREASED GLUCOSE; Start 02/23/16 at 23:15 Levetiracetam/ Sodium Chloride (Keppra Iv/NS) 110 ml @ 440 mls/hr BID IVPB Last administered on 03/09/16at 08:41; Admin Dose 440 MLS/HR; Start 02/24/16 at 01:00 Insulin Aspart (Novolog Insulin Pen) NOVOLOG *MILD* ALGORI... Q6 SC Last administered on 03/09/16at 11:59; Admin Dose 2 UNIT; Start 02/26/16 at 18:00 Furosemide (Lasix) 20 mg DAILY IV Last administered on 03/09/16at 08:41; Admin Dose 20 MG; Start 02/27/16 at 09:00 Metoclopramide HCl (Reglan) 10 mg Q6 IV Last administered on 03/09/16at 11:48; Admin Dose 10 MG; Start 03/04/16 at 06:00 Acetaminophen (Tylenol Tab) 650 mg Q6H PRN NGT PAIN AND OR ELEVATED TEMP Last administered on 03/09/16at 06:05; Admin Dose 650 MG; Start 03/06/16 at 11:30 Amlodipine Besylate (Norvasc) 5 mg BID NGT Last administered on 03/08/16at 21: 31; Admin Dose 5 MG; Start 03/06/16 at 09:00 Glucose (Glutose) 15 gm Q15M PRN NGT DECREASED GLUCOSE; Start 03/06/16 at 08: 45 Hydralazine HCl (Apresoline) 100 mg Q8 NGT Last administered on 03/09/16at 13: 34; Admin Dose 100 MG; Start 03/06/16 at 14:00 Metoprolol Tartrate (Lopressor) 150 mg Q8 NGT Last administered on 03/09/16at 13:35; Admin Dose 150 MG; Start 03/06/16 at 14:00 Metronidazole (Flagyl) 500 mg Q8 NGT Last administered on 03/09/16 13:36; Admin Dose 500 MG; Start 03/06/16 at 14:00 Hydralazine HCl (Apresoline) 10 mg Q4H PRN IV ELEVATED SYSTOLIC BP Last administered on 03/09/16 10:52; Admin Dose 10 MG; Start 03/06/16 at 16:00 Minoxidil 7.5 mg 7.5 mg BID NGT Last administered on 03/09/16 08:40; Admin Dose 7.5 MG; Start 03/07/16 at 21:00 Dextrose (D5W) 1,000 ml @ 80 mls/hr [id number] IV Last administered on 06:03; Admin Dose 80 MLS/HR; Start 03/08/16 at 11:30 Diltiazem HCl (Cardizem) 60 mg Q8 PO Last administered on 03/09/16 13:36; Admin Dose 60 MG; Start 03/09/16 at 14:00 REJI WADE Mar 09, 2016 14:05
--- NOTE | 2016-03-09 16:35 | PN ---
Date/Time of Note Date/Time of Note DATE: 03/09/16 TIME: 16:33 Assessment/Plan Lines/Catheters IV Catheter Type (from Nrsg): PICC Line Smalls in Place (from Nrsg): Yes Assessment/Plan Chief Complaint/Hosp Course IMPRESSION: Type B aortic dissection. The patient's blood pressure more controlled RECOMMENDATIONS: At this time, we would continue blood pressure management, monitor vital signs and laboratory values in an intensive care unit setting. Vent support per pulm medicine No plan for surgery. Abx Repeat CTA Dissection involving the thoracic aorta arising distal to the origin of the left subclavian artery and extending into the abdominal aorta. The distal extent was not included on the study. Flow within both true and false lumen to the level of the celiac artery. Would continue BP control , Vent support Type B aortic dissection PE, OK to start anticoagulation follow neurology recc. no plan for surgery at this time I discussed with the patient and Dr. Mccabe and staff Problems: Subjective 24 Hr Interval Summary Constitutional: improved Pain Control: mild Exam/Review of Systems Vital Signs Vitals Vital Signs Date Time Temp Pulse Resp B/P Pulse Ox O2 Delivery O2 Flow Rate FiO2 03/09/16 14:45 77 32 93 03/09/16 14:30 138/74 Nasal Cannula 6.0 03/09/16 12:00 99.3 03/06/16 15:12 40 Intake and Output 03/08/16 03/08/16 03/09/16 15:00 23:00 07:00 Intake Total 888 ml 510 ml 2210 ml Output Total 910 ml 700 ml 950 ml Balance -22 ml -190 ml 1260 ml Exam Neck: non-tender, supple Respiratory: clear to auscultation, normal air movement Cardiovascular: nl pulses, regular rate and rhythm Results Result Diagram: 03/09/16 0440 03/09/16439 KAYLYN RADFORD MD Mar 09, 2016 16:35
--- NOTE | 2016-03-09 17:00 | CONS ---
Date/Time of Note Date/Time of Note DATE: 03/09/16 TIME: 16:56 Assessment/Plan Assessment/Plan Additional Assessment/Plan Hypertensive Urgency, Diastolic heart failure, Type B Aortic dissection, abnormal electrocardiogram, Pericardial effusion, Pulmonary embolism metabolic encephalopathy He is Hypertensive Increased Norvasc dose Increased Minoxidil dose Continue Cardizem and Hydralazine Continue Lasix Continue GI and DVT Prophylaxis Consultation Date/Type/Reason Admit Date/Time Feb 18, 2016 at 09:14 Constitutional: other (off vent) Cardiovascular: no complaints Gastrointestinal: no complaints Genitourinary: no complaints Musculoskeletal: no complaints Skin: no complaints Psychological: no complaints Past Medical History Medical History: hypertension Social History Alcohol Use: none Smoking Status: Never smoker Drug Use: none Exam/Review of Systems Vital Signs Vitals Vital Signs Date Time Temp Pulse Resp B/P Pulse Ox O2 Delivery O2 Flow Rate FiO2 03/09/16 14:45 77 32 93 03/09/16 14:30 138/74 Nasal Cannula 6.0 03/09/16 12:00 99.3 03/06/16 15:12 40 Intake and Output 03/08/16 03/08/16 03/09/16 15:00 23:00 07:00 Intake Total 888 ml 510 ml 2210 ml Output Total 910 ml 700 ml 950 ml Balance -22 ml -190 ml 1260 ml Exam Constitutional: alert Psych: no complaints Head: atraumatic, normocephalic Eyes: EOMI, nl conjunctiva Neck: non-tender, supple Respiratory: clear to auscultation Cardiovascular: regular rate and rhythm Gastrointestinal: nl liver, spleen, non-tender, soft Extremities: normal pulses Results Result Diagram: 03/09/16 0440 03/09/16 0440 Results 24 hrs Laboratory Tests Test 03/08/16 18:16 03/09/16 00:30 03/09/16 04:40 03/09/16 05:44 Bedside Glucose 165 203 195 Activated Partial Thromboplast Time 97.1 *H Anion Gap 16 Basophils # 0.1 Basophils % 0.7 Blood Morphology Comment Blood Urea Nitrogen 33 H Calcium Level 9.4 Carbon Dioxide Level 30 Chloride Level 110 Creatinine 1.77 H Eosinophils # 0.1 Eosinophils % 0.7 Glucose Level 191 Hematocrit 27.2 L Hemoglobin 8.9 L Lymphocytes # 1.7 Lymphocytes % 10.3 L Mean Corpuscular Hemoglobin 26.8 L Mean Corpuscular Hemoglobin Concent 32.8 Mean Corpuscular Volume 81.5 L Mean Platelet Volume 9.2 Monocytes # 1.0 H Monocytes % 6.1 Neutrophils # 13.7 H Neutrophils % 82.2 H Nucleated Red Blood Cells # 0.0 Nucleated Red Blood Cells % 0.0 Platelet Count 515 H Potassium Level 3.7 Red Blood Count 3.34 L Red Cell Distribution Width 17.5 H Sodium Level 152 H White Blood Count 16.7 H Test 03/09/16 10:13 03/09/16 11:55 03/09/16 12:20 Arterial Blood HCO3 27.4 H Arterial Blood Base Excess 4.0 H Arterial Blood Oxygen Saturation 91.8 L Jovanny Test ACCEPTAB Arterial Blood Gas Puncture Site Right Radial Arterial Blood Carboxyhemoglobin 0.3 Arterial Blood Date Drawn 03/09/2016 11:00:52 AM Arterial Blood Methemoglobin 0.2 Arterial Blood pCO2 (Temp correct) 36.3 Arterial Blood pH (Temp corrected) 7.495 H Arterial Blood pO2 (Temp corrected) 63.6 L Blood Gas A-a O2 Differential 172.6 H Blood Gas Modality NASAL CANNULA Blood Gas Notified Time 03/09/2016 11:12:11 AM Blood Gas Notified Whom Lionel DELEON Blood Gas Specimen Source Blood arterial Blood Gas Temperature 37.0 FiO2 39.0 Oxyhemoglobin Percent 91.3 L Total Hemoglobin 9.8 L Bedside Glucose 192 Activated Partial Thromboplast Time 116.3 *H Medications Medications Current Medications Ondansetron HCl (Zofran Inj) 4 mg Q6H PRN IV NAUSEA AND/OR VOMITING; Start 02/18/16 at 09:30 Acetaminophen (Tylenol Supp) 650 mg Q4H PRN [place] PAIN LEVEL 1-3 OR FEVER Last administered on 02/24/16at 14:32; Admin Dose 650 MG; Start 02/18/16 at 09:30 Morphine Sulfate (morphine) 2 mg Q4H PRN [place] PAIN LEVEL 7-10 Last administered on 03/09/16at 11:48; Admin Dose 2 MG; Start 02/18/16 at 09:30 Bisacodyl (Dulcolax Supp) 10 mg DAILY PRN [place] CONSTIPATION; Start 02/18/16 at 09 :30 Pantoprazole (Protonix Iv) 40 mg DAILY@06 IV Last administered on 03/09/16at 06 :22; Admin Dose 40 MG; Start 02/19/16 at 06:00 Metoprolol Tartrate (Lopressor) 5 mg Q4H PRN IV HR>55 Hold SBP<100 Last administered on 03/09/16at 12:08; Admin Dose 5 MG; Start 02/21/16 at 11:30 IV Flush (NS 10 ml) 10 ml PRN PRN IV IV PROTOCOL; Start 02/21/16 at 18:30 Ferrous Sulfate (Feosol Liquid Cup) 300 mg BID GTB Last administered on at 08:36; Admin Dose 300 MG; Start 02/22/16 at 10:00 Lorazepam (Ativan) 1 mg Q1H PRN IV ANXIETY Last administered on 03/07/16at 06: 01; Admin Dose 1 MG; Start 02/23/16 at 11:30 Miscellaneous Information 1 ea NOTE XX ; Start 02/23/16 at 23:15 Glucose (Glutose) 22.5 gm Q15M PRN PO DECREASED GLUCOSE; Start 02/23/16 at 23: 15 Dextrose (D50w Syringe) 25 ml Q15M PRN IV DECREASED GLUCOSE; Start 02/23/16 at 23:15 Dextrose (D50w Syringe) 50 ml Q15M PRN IV DECREASED GLUCOSE; Start 02/23/16 at 23:15 Glucagon (Glucagen) 1 mg Q15M PRN IM DECREASED GLUCOSE; Start 02/23/16 at 23:15 Glucose 15 gm 15 gm Q15M PRN BUCCAL DECREASED GLUCOSE; Start 02/23/16 at 23:15 Levetiracetam/ Sodium Chloride (Keppra Iv/NS) 110 ml @ 440 mls/hr BID IVPB Last administered on 03/09/16at 08:41; Admin Dose 440 MLS/HR; Start 02/24/16 at 01:00 Insulin Aspart (Novolog Insulin Pen) NOVOLOG *MILD* ALGORI... Q6 SC Last administered on 03/09/16at 11:59; Admin Dose 2 UNIT; Start 02/26/16 at 18:00 Furosemide (Lasix) 20 mg DAILY IV Last administered on 03/09/16at 08:41; Admin Dose 20 MG; Start 02/27/16 at 09:00 Metoclopramide HCl (Reglan) 10 mg Q6 IV Last administered on 03/09/16 11:48; Admin Dose 10 MG; Start 03/04/16 at 06:00 Acetaminophen (Tylenol Tab) 650 mg Q6H PRN NGT PAIN AND OR ELEVATED TEMP Last administered on 03/09/16 06:05; Admin Dose 650 MG; Start 03/06/16 at 11:30 Amlodipine Besylate (Norvasc) 5 mg BID NGT Last administered on 03/08/16 21: 31; Admin Dose 5 MG; Start 03/06/16 at 09:00 Glucose (Glutose) 15 gm Q15M PRN NGT DECREASED GLUCOSE; Start 03/06/16 at 08: 45 Hydralazine HCl (Apresoline) 100 mg Q8 NGT Last administered on 03/09/16 13: 34; Admin Dose 100 MG; Start 03/06/16 at 14:00 Metoprolol Tartrate (Lopressor) 150 mg Q8 NGT Last administered on 03/09/16 13:35; Admin Dose 150 MG; Start 03/06/16 at 14:00 Metronidazole (Flagyl) 500 mg Q8 NGT Last administered on 03/09/16 13:36; Admin Dose 500 MG; Start 03/06/16 at 14:00 Hydralazine HCl (Apresoline) 10 mg Q4H PRN IV ELEVATED SYSTOLIC BP Last administered on 03/09/16 10:52; Admin Dose 10 MG; Start 03/06/16 at 16:00 Minoxidil 7.5 mg 7.5 mg BID NGT Last administered on 03/09/16 08:40; Admin Dose 7.5 MG; Start 03/07/16 at 21:00 Dextrose (D5W) 1,000 ml @ 80 mls/hr [id number] IV Last administered on 06:03; Admin Dose 80 MLS/HR; Start 03/08/16 at 11:30 Diltiazem HCl (Cardizem) 60 mg Q8 PO Last administered on 03/09/16 13:36; Admin Dose 60 MG; Start 03/09/16 at 14:00 ESTEFANIA ALLEN M.D. Mar 09, 2016 17:00 ESTEFANIA ALLEN M.D. Mar 09, 2016 17:00
[2016-03-09] MEDS: AMLODIPINE 10 MG TAB PO SCH (17:51)
[2016-03-09] MEDS ORDERED: VANCOMYCIN IV PER PHARMACY XX SCH (20:30)
[2016-03-09 20:42] LABS: HEMATOCRIT 27.1 % (42.0-52.0); HEMOGLOBIN 8.8 g/dl (14.0-18.0); MEAN CORPUSCULAR HGB CONC 32.4 g/dl (32.0-37.0); MEAN CORPUSCULAR VOLUME 80.3 fl (82.0-101.0); MEAN PLATELET VOLUME 8.7 fl (7.4-10.4); PLATELET COUNT 466 10^3/UL (140-440); RED BLOOD COUNT 3.37 10^6/ul (4.70-6.10); RED CELL DISTRIBUTION WIDTH 17.3 % (11.5-14.5); UNCORRECTED WBC 18.3 10^3/ul (4.8-10.8); WHITE BLOOD COUNT 18.3 10^3/ul (4.8-10.8)
[2016-03-09 20:44] LABS: CONDITION 1; LH ANALYZER COMMENTS 1; SUSPECT 1
[2016-03-09 21:26] LABS: AADO2 Arterial 250.2 mmHg (7.0-24.0); Allen Test ACCEPTAB; Arterial Base Excess 3.2 mmol/L (-3.0-3); Arterial COHb 0.3 % (0.0-3.0); Arterial Fraction of Oxyhgb 92.1 % (93.0-99.0); Arterial HCO3 26.4 mmol/L (22.0-26.0); Arterial MetHb 0.2 % (0.0-1.5); Arterial Total Hemglobin 9.5 g/dl (12.0-18.0); MODE MASK - VENTI
[2016-03-09 21:37] LABS: ALBUMIN 3.6 g/dl (3.3-4.9)
[2016-03-09 21:40] LABS: ALBUMIN/GLOBULIN RATIO 0.9; BILIRUBIN,INDIRECT 0.3 mg/dl (0-1.1); BILIRUBIN,TOTAL 0.3 mg/dl (0.2-1.3); CREATININE 1.84 mg/dl (0.61-1.24); TOTAL PROTEIN 7.6 g/dl (6.1-8.1)
[2016-03-09 21:41] LABS: CALCIUM 9.3 mg/dl (8.4-10.2)
[2016-03-09] MEDS: MINOXIDIL 10 MG TAB NGT SCH (22:07)
[2016-03-09 22:08] LABS: LYMPHOCYTES # 1.5 10^3/ul (0.8-2.9); MONOCYTE # 1.3 10^3/ul (0.3-0.9); NEUTROPHIL # 15.6 10^3/ul (1.6-7.5)
[2016-03-09] MEDS: LORAZEPAM 2 MG INJ IV PRN (22:09)
[2016-03-09] MEDS: CEFEPIME 1GM/50 ML (PMX) 50 ML IVPB SCH (22:46)
[2016-03-09] MEDS: VANCOMYCIN 2 GM in SOD CHLORIDE 0.9% 500 ML IVPB SCH (22:48)
[2016-03-09] MEDS ORDERED: PROPOFOL 100 ML ONE (23:58)
[2016-03-10] VITALS (103 sets, daily range): BP systolic 96–187; BP diastolic 52–97; PULSE 61–91; RESP 5–31
--- NOTE | 2016-03-10 00:11 | QN ---
Documentation Comment I was called to ICU room 104 for evaluation of a patient in respiratory distress. This patient is a 45-year-old male with a type B aortic dissection who was extubated earlier this month. The patient started to develop respiratory distress, when I evaluated him he was tachypneic, and altered. This patient had no gag reflex. The decision was made to intubate this patient for airway protection. The patient was intubated successfully, please see intubation note. Endotracheal Intubation by me: Pre assessment performed. See preceding note for details. Pre-oxygenation performed with 100% oxygen RSI: Performed w/o complication or hypoxic events. Medications as ordered. Blade: [Mac 4] ET Tube: 7.5 cm Depth: 23 cm at the lip Intubation confirmed by colorimetric CO2, equal breath sounds, quiet over the stomach. Chest X-ray 1V Interpreted by me: 3 cm above the francisco ET tube. Normal soft tissue, No pneumothorax. LAUREN SALTER DO Mar 10, 2016 00:11
[2016-03-10 00:18] LABS: Allen Test ACCEPTAB; Arterial Base Excess 2.9 mmol/L (-3.0-3); Arterial COHb 0.3 % (0.0-3.0); Arterial Fraction of Oxyhgb 98.2 % (93.0-99.0); Arterial HCO3 28.8 mmol/L (22.0-26.0); Arterial MetHb 0.2 % (0.0-1.5); Arterial Total Hemglobin 10.2 g/dl (12.0-18.0); MODE VENT - AC
[2016-03-10] MEDS: METOCLOPRAMIDE 10 MG INJ IV SCH ×4 (00:38→18:21)
[2016-03-10] MEDS: INSULIN ASPART [NOVOLOG] 3 ML PEN SC SCH ×4 (00:43→18:31)
[2016-03-10] MEDS ORDERED: FUROSEMIDE 40 MG INJ IV ONE (01:30)
[2016-03-10 02:05] LABS: AADO2 Arterial 435.8 mmHg (7.0-24.0); Allen Test ACCEPTAB; Arterial Base Excess 2.1 mmol/L (-3.0-3); Arterial COHb 0.3 % (0.0-3.0); Arterial Fraction of Oxyhgb 98.1 % (93.0-99.0); Arterial HCO3 26.8 mmol/L (22.0-26.0); Arterial MetHb 0.6 % (0.0-1.5); Arterial Total Hemglobin 9.1 g/dl (12.0-18.0); MODE VENT - AC
--- NOTE | 2016-03-10 02:19 | RADRPT ---
PROCEDURE: Portable chest x-ray. CLINICAL INDICATION: Intubation. TECHNIQUE: Portable AP view of the chest. COMPARISON: 03/09/2016. FINDINGS: An endotracheal tube terminates approximately 3.2 cm above the francisco. A nasogastric tube terminates in the stomach. A right upper extremity PICC terminates in the superior cavoatrial junction. There is no significant change in diffuse bilateral pulmonary infiltrates, right more than left. The car diac silhouette is enlarged. No pleural effusion is seen. There is no pneumothorax. IMPRESSION: 1. Endotracheal tube tip approximately 3.2 cm above the francisco. 2. Nasogastric tube tip in the stomach. 3. No significant change in diffuse pulmonary infiltrates, right more than left, possibly represent ing pulmonary edema or multifocal pneumonia. RPTAT: HTAR .Tyson Owusu MD, Date Time Electronically viewed and signed by .Tyson Owusu MD, MD on 03/10/2016 02:19 .R/
[2016-03-10] MEDS: PROPOFOL 100 ML IV SCH ×8 (02:41→22:11)
[2016-03-10] MEDS: IPRATROPIUM (HFA) 12.9 GM INHALER INH SCH ×4 (03:00→20:35)
[2016-03-10] MEDS: ALBUTEROL HFA 8 GM INHALER INH SCH ×4 (03:00→20:35)
[2016-03-10] MEDS: HEPARIN 25000 UNITS/250 ML 250 ML IV SCH ×3 (04:19→22:25)
[2016-03-10] MEDS: METOPROLOL 100 MG TAB NGT SCH ×3 (05:50→21:58)
[2016-03-10] MEDS: PANTOPRAZOLE 40 MG INJ IV SCH (05:50)
[2016-03-10] MEDS: DILTIAZEM 60 MG TAB PO SCH ×3 (05:51→21:57)
[2016-03-10] MEDS: ACETAMINOPHEN 325 MG TAB NGT PRN (05:58)
[2016-03-10 06:11] LABS: HEMOGLOBIN 8.5 g/dl (14.0-18.0); MEAN CORPUSCULAR HEMOGLOBIN 26.6 pg (29.0-33.0); MEAN CORPUSCULAR HGB CONC 32.7 g/dl (32.0-37.0); MEAN CORPUSCULAR VOLUME 81.3 fl (82.0-101.0); MEAN PLATELET VOLUME 9.1 fl (7.4-10.4); PLATELET COUNT 387 10^3/UL (140-440); RED CELL DISTRIBUTION WIDTH 17.5 % (11.5-14.5); UNCORRECTED WBC 14.7 10^3/ul (4.8-10.8); WHITE BLOOD COUNT 14.7 10^3/ul (4.8-10.8)
[2016-03-10 06:25] LABS: CONDITION 1; LH ANALYZER COMMENTS 1
--- NOTE | 2016-03-10 08:06 | RADRPT ---
PROCEDURE: XR Chest. CLINICAL INDICATION: Respiratory failure TECHNIQUE: Portable single view of the chest COMPARISON: 03/10 FINDINGS: Tubes and lines remain in good position. Right lung infiltrate is slightly decreased while left octavio g infiltrate is stable or minimally increased. Cardiomegaly and ectatic aorta again seen. Overall reduced lung volumes again seen. IMPRESSION: Slightly improved right lung aeration with slight increase in left base infiltrate. RPTAT: HLBE Denia Saeed Physician Date Time Electronically viewed and signed by Denia Saeed Physician on 03/10/2016 08:06 LE/
[2016-03-10 08:24] LABS: CREATININE 1.78 mg/dl (0.61-1.24)
[2016-03-10 08:25] LABS: CALCIUM 8.8 mg/dl (8.4-10.2)
[2016-03-10] MEDS: LEVETIRACETAM IV 1,000 MG in SOD CHLORIDE 0.9% 100 ML IVPB SCH ×2 (09:03→21:52)
[2016-03-10] MEDS: FERROUS SULFATE 60 MG/ML 5ML CUP GTB SCH ×2 (09:07→21:52)
[2016-03-10] MEDS: FUROSEMIDE 20 MG INJ IV SCH (09:08)
[2016-03-10] MEDS: MINOXIDIL 10 MG TAB NGT SCH ×2 (09:08→21:53)
[2016-03-10] MEDS: AMLODIPINE 10 MG TAB PO SCH (09:08)
[2016-03-10] MEDS: CEFEPIME 1GM/50 ML (PMX) 50 ML IVPB SCH ×2 (09:08→21:52)
[2016-03-10 09:11] LABS: AADO2 Arterial 467.9 mmHg (7.0-24.0); Allen Test ACCEPTAB; Arterial Base Excess 3.3 mmol/L (-3.0-3); Arterial COHb 0.3 % (0.0-3.0); Arterial Fraction of Oxyhgb 88.3 % (93.0-99.0); Arterial HCO3 27.8 mmol/L (22.0-26.0); Arterial MetHb 0.2 % (0.0-1.5); Arterial Total Hemglobin 9.9 g/dl (12.0-18.0); MODE 550
[2016-03-10 09:38] LABS: EOSINOPHILS # 0.4 10^3/ul (0.0-0.5); LYMPHOCYTES # 1.5 10^3/ul (0.8-2.9); MONOCYTE # 0.7 10^3/ul (0.3-0.9); NEUTROPHIL # 12.1 10^3/ul (1.6-7.5)
[2016-03-10 09:39] LABS: ANISOCYTOSIS 1+; HYPOCHROMASIA 1+; MICROCYTOSIS 1+; PLATELET ESTIMATE PLT APPEAR ADEQUATE
--- NOTE | 2016-03-10 10:34 | CONS ---
Date/Time of Note Date/Time of Note DATE: 03/10/16 TIME: 10:30 Assessment/Plan Assessment/Plan Additional Assessment/Plan 1. Acute kidney injury due to ATN from sepsis- Cr improved to 1.7, good urine output 2. Systemic inflammatory response syndrome 3.. Acute respiratory failure status post extubation- now again reintubated for resp distress . 4. Accelerated hypertension with persistent hypertension.- difficult ot manage HTN 5. Type B aortic dissection. 6. Status epilepticus. 7. Hypernatremia improvign with free water Plan: making good urine, Cr 1.7, Increased Free water to 300 ml PO Q 8r- Na 149 pt was reintubated yesterday for resp distress, now CXR showed improved aeration but left basilar infiltrates on cardizemn to 60mg PO Q 8 hr, Continue other BP meds will hold off on ACEI/ARB at this time due to Cr 1.7 will follow up Consultation Date/Type/Reason Admit Date/Time Feb 18, 2016 at 09:14 Type of Consultation: NEPHROLOGY Referring Provider: MOSES HARRIS MD 24 HR Interval Summary Free Text/Dictation pt was intubated again yesterday for resp distress, CXR showed improved aeration with left basilar infiltrates Exam/Review of Systems Vital Signs Vitals Vital Signs Date Time Temp Pulse Resp B/P Pulse Ox O2 Delivery O2 Flow Rate FiO2 03/10/16 10:15 82 28 143/68 100 Mechanical Ventilator 03/10/16 08:00 99.9 03/10/16 05:32 80 03/09/16 23:00 15.0 Intake and Output 03/09/16 03/09/16 03/10/16 15:00 23:00 07:00 Intake Total 810 ml 1440 ml 792 ml Output Total 880 ml 560 ml 765 ml Balance -70 ml 880 ml 27 ml Exam HEENT: sedated, dry mucous membrane NECK: Supple, trachea midline.NG tube in place ET tube in place CHEST: Rise symmetrical. Breath sounds diminished to bases. ABDOMEN: Distended. Soft. Bowel tones hypoactive. EXTREMITIES: Without cyanosis. Bilateral edema. Results Result Diagram: 03/10/16 0545 03/10/16 0545 Results 24 hrs Laboratory Tests Test 03/09/16 11:55 03/09/16 12:20 03/09/16 17:56 03/09/16 20:19 Bedside Glucose 192 194 Activated Partial Thromboplast Time 116.3 *H Arterial Blood HCO3 26.4 H Arterial Blood Base Excess 3.2 H Arterial Blood Oxygen Saturation 92.6 L Jovanny Test ACCEPTAB Arterial Blood Gas Puncture Site Right Radial Arterial Blood Carboxyhemoglobin 0.3 Arterial Blood Date Drawn 03/09/2016 9:10:55 PM Arterial Blood Methemoglobin 0.2 Arterial Blood pCO2 (Temp correct) 34.7 L Arterial Blood pH (Temp corrected) 7.499 H Arterial Blood pO2 (Temp corrected) 67.3 L Blood Gas A-a O2 Differential 250.2 H Blood Gas Modality MASK - VENTI Blood Gas Notified Time 03/09/2016 9:26:38 PM Blood Gas Notified Whom UP Blood Gas Specimen Source Blood arterial Blood Gas Temperature 37.0 FiO2 50.0 Oxyhemoglobin Percent 92.1 L Total Hemoglobin 9.5 L Test 03/09/16 20:30 03/09/16 23:51 03/10/16 00:37 03/10/16 01:00 Activated Partial Thromboplast Time 83.6 *H Alanine Aminotransferase (ALT/SGPT) 40 Albumin 3.6 Albumin/Globulin Ratio 0.90 Alkaline Phosphatase 134 H Anion Gap 16 Aspartate Amino Transf (AST/SGOT) 32 Blood Morphology Comment Blood Urea Nitrogen 37 H Calcium Level 9.3 Carbon Dioxide Level 31 Chloride Level 105 Creatinine 1.84 H Direct Bilirubin 0.00 Globulin 4.00 H Glucose Level 188 Hematocrit 27.1 L Hemoglobin 8.8 L Indirect Bilirubin 0.3 Lactic Acid Level 0.8 Lymphocytes # 1.5 Lymphocytes % 8.0 L Mean Corpuscular Hemoglobin 26.0 L Mean Corpuscular Hemoglobin Concent 32.4 Mean Corpuscular Volume 80.3 L Mean Platelet Volume 8.7 Monocytes # 1.3 H Monocytes % 7.0 Neutrophils # 15.6 H Neutrophils % 85.0 H Platelet Count 466 H Potassium Level 4.0 Red Blood Count 3.37 L Red Cell Distribution Width 17.3 H Sodium Level 148 H Total Bilirubin 0.3 Total Protein 7.6 White Blood Count 18.3 H Arterial Blood HCO3 28.8 H 26.8 H Arterial Blood Base Excess 2.9 2.1 Arterial Blood Oxygen Saturation 98.7 H 99.0 H Jovanny Test ACCEPTAB ACCEPTAB Arterial Blood Gas Puncture Site Right Radial Right Radial Arterial Blood Carboxyhemoglobin 0.3 0.3 Arterial Blood Date Drawn 03/10/2016 12:00:34 AM 03/10/2016 1:50:24 AM Arterial Blood Methemoglobin 0.2 0.6 Arterial Blood pCO2 (Temp correct) 50.8 H 42.0 Arterial Blood pH (Temp corrected) 7.372 7.422 Arterial Blood pO2 (Temp corrected) 156.2 H 235.2 H Blood Gas A-a O2 Differential 506.0 H 435.8 H Blood Gas Actual Respiration Rate 30 26 Blood Gas Low PEEP Setting 5.0 5.0 Blood Gas Modality VENT - AC VENT - AC Blood Gas Notified Time 03/10/2016 12:17:43 AM 03/10/2016 2:05:17 AM Blood Gas Notified Whom UP UP Blood Gas Respiration Rate 20.0 20.0 Blood Gas Specimen Source Blood arterial Blood arterial Blood Gas Temperature 37.0 37.0 Blood Gas Tidal Volume 550.0 550.0 FiO2 100.0 100.0 Oxyhemoglobin Percent 98.2 98.1 Total Hemoglobin 10.2 L 9.1 L Bedside Glucose 212 Test 03/10/16 02:40 03/10/16 05:45 03/10/16 07:00 Activated Partial Thromboplast Time 86.7 *H Anion Gap 17 H Anisocytosis 1+ Basophils # Basophils % Bedside Glucose 167 Blood Morphology Comment Blood Urea Nitrogen 39 H Calcium Level 8.8 Carbon Dioxide Level 29 Chloride Level 107 Creatine Kinase 67 Creatinine 1.78 H Eosinophils # 0.4 Eosinophils % 3.0 Glucose Level 146 # Hematocrit 26.0 L Hemoglobin 8.5 L Hypochromasia 1+ Lymphocytes # 1.5 Lymphocytes % 10.0 L Mean Corpuscular Hemoglobin 26.6 L Mean Corpuscular Hemoglobin Concent 32.7 Mean Corpuscular Volume 81.3 L Mean Platelet Volume 9.1 Microcytosis 1+ Monocytes # 0.7 Monocytes % 5.0 Neutrophils # 12.1 H Neutrophils % 82.0 H Nucleated Red Blood Cells # Nucleated Red Blood Cells % 0.0 Platelet Count 387 Platelet Estimate PLT APPEAR ADEQUATE Potassium Level 4.0 Red Blood Count 3.20 L Red Cell Distribution Width 17.5 H Sodium Level 149 H White Blood Count 14.7 H Arterial Blood HCO3 27.8 H Arterial Blood Base Excess 3.3 H Arterial Blood Oxygen Saturation 88.7 L Jovanny Test ACCEPTAB Arterial Blood Gas Puncture Site Right Radial Arterial Blood Carboxyhemoglobin 0.3 Arterial Blood Date Drawn 03/10/2016 8:30:36 AM Arterial Blood Methemoglobin 0.2 Arterial Blood pCO2 (Temp correct) 42.1 Arterial Blood pH (Temp corrected) 7.438 Arterial Blood pO2 (Temp corrected) 58.3 L Blood Gas A-a O2 Differential 467.9 H Blood Gas Actual Respiration Rate 24 Blood Gas Low PEEP Setting 5.0 Blood Gas Modality 550 Blood Gas Notified Time 03/10/2016 9:10:53 AM Blood Gas Notified Whom CW Blood Gas Respiration Rate 20.0 Blood Gas Specimen Source Blood arterial Blood Gas Temperature 37.0 Blood Gas Tidal Volume 550.0 FiO2 80.0 Oxyhemoglobin Percent 88.3 L Total Hemoglobin 9.9 L Medications Medications Current Medications Ondansetron HCl (Zofran Inj) 4 mg Q6H PRN IV NAUSEA AND/OR VOMITING; Start 02/18/16 at 09:30 Acetaminophen (Tylenol Supp) 650 mg Q4H PRN [place] PAIN LEVEL 1-3 OR FEVER Last administered on 02/24/16at 14:32; Admin Dose 650 MG; Start 02/18/16 at 09:30 Morphine Sulfate (morphine) 2 mg Q4H PRN IV PAIN LEVEL 7-10 Last administered on 03/09/16at 11:48; Admin Dose 2 MG; Start 02/18/16 at 09:30 Bisacodyl (Dulcolax Supp) 10 mg DAILY PRN [place] CONSTIPATION; Start 02/18/16 at 09 :30 Pantoprazole (Protonix Iv) 40 mg DAILY@06 IV Last administered on 03/10/16at 05 :50; Admin Dose 40 MG; Start 02/19/16 at 06:00 Metoprolol Tartrate (Lopressor) 5 mg Q4H PRN IV HR>55 Hold SBP<100 Last administered on 03/09/16at 12:08; Admin Dose 5 MG; Start 02/21/16 at 11:30 IV Flush (NS 10 ml) 10 ml PRN PRN IV IV PROTOCOL; Start 02/21/16 at 18:30 Ferrous Sulfate (Feosol Liquid Cup) 300 mg BID GTB Last administered on at 09:07; Admin Dose 300 MG; Start 02/22/16 at 10:00 Lorazepam (Ativan) 1 mg Q1H PRN IV ANXIETY Last administered on 03/09/16at 22: 09; Admin Dose 1 MG; Start 02/23/16 at 11:30 Miscellaneous Information 1 ea NOTE XX ; Start 02/23/16 at 23:15 Glucose (Glutose) 22.5 gm Q15M PRN PO DECREASED GLUCOSE; Start 02/23/16 at 23: 15 Dextrose (D50w Syringe) 25 ml Q15M PRN IV DECREASED GLUCOSE; Start 02/23/16 at 23:15 Dextrose (D50w Syringe) 50 ml Q15M PRN IV DECREASED GLUCOSE; Start 02/23/16 at 23:15 Glucagon (Glucagen) 1 mg Q15M PRN IM DECREASED GLUCOSE; Start 02/23/16 at 23:15 Glucose 15 gm 15 gm Q15M PRN BUCCAL DECREASED GLUCOSE; Start 02/23/16 at 23:15 Levetiracetam/ Sodium Chloride (Keppra Iv/NS) 110 ml @ 440 mls/hr BID IVPB Last administered on 03/10/16at 09:03; Admin Dose 440 MLS/HR; Start 02/24/16 at 01:00 Furosemide (Lasix) 20 mg DAILY IV Last administered on 03/10/16at 09:08; Admin Dose 20 MG; Start 02/27/16 at 09:00 Metoclopramide HCl (Reglan) 10 mg Q6 IV Last administered on 03/10/16at 05:50; Admin Dose 10 MG; Start 03/04/16 at 06:00 Acetaminophen (Tylenol Tab) 650 mg Q6H PRN NGT PAIN AND OR ELEVATED TEMP Last administered on 03/10/16at 05:58; Admin Dose 650 MG; Start 03/06/16 at 11:30 Glucose (Glutose) 15 gm Q15M PRN NGT DECREASED GLUCOSE; Start 03/06/16 at 08: 45 Hydralazine HCl (Apresoline) 100 mg Q8 NGT Last administered on 03/10/16at 05: 51; Admin Dose 100 MG; Start 03/06/16 at 14:00 Metoprolol Tartrate (Lopressor) 150 mg Q8 NGT Last administered on 03/10/16at 05:50; Admin Dose 150 MG; Start 03/06/16 at 14:00 Hydralazine HCl 10 mg 10 mg Q4H PRN IV ELEVATED SYSTOLIC BP Last administered on 03/09/16 10:52; Admin Dose 10 MG; Start 03/06/16 at 16:00 Dextrose (D5W) 1,000 ml @ 80 mls/hr [id number] IV Last administered on 18:33; Admin Dose 80 MLS/HR; Start 03/08/16 at 11:30 Diltiazem HCl (Cardizem) 60 mg Q8 PO Last administered on 03/10/16 05:51; Admin Dose 60 MG; Start 03/09/16 at 14:00 Amlodipine Besylate (Norvasc) 10 mg DAILY PO Last administered on 03/10/16 09 :08; Admin Dose 10 MG; Start 03/09/16 at 17:00 Minoxidil 10 mg 10 mg BID NGT Last administered on 03/10/16 09:08; Admin Dose 10 MG; Start 03/09/16 at 21:00 Cefepime HCl 50 ml @ 100 mls/hr Q12 IVPB Last administered on 03/10/16 09:08 ; Admin Dose 100 MLS/HR; Start 03/09/16 at 21:00 Vancomycin HCl 2 gm/Sodium Chloride 500 ml @ 125 mls/hr Q24H IVPB Last administered on 03/09/16 22:48; Admin Dose 125 MLS/HR; Start 03/09/16 at 22: 00 Propofol (Diprivan) 100 ml @ 3.189 mls/ hr Q12H IV Last administered on 09:09; Admin Dose 31.89 MLS/HR; Start 03/10/16 at 00:00 Insulin Aspart (Novolog Insulin Pen) NOVOLOG *MODERATE* ALGORI... Q6 SC Last administered on 03/10/16 05:53; Admin Dose 2 UNIT; Start 03/10/16 at 06:00 MOSES HARRIS MD Mar 10, 2016 10:34
[2016-03-10] MEDS: DEXTROSE 5% 1,000 ML IV SCH ×2 (13:30→18:23)
--- NOTE | 2016-03-10 13:49 | PN ---
Date/Time of Note Date/Time of Note DATE: 03/10/16 TIME: 13:46 Assessment/Plan VTE Prophylaxis VTE Prophylaxis Intervention: heparin Lines/Catheters IV Catheter Type (from Nrs): PICC Line Central line still needed: Yes Urinary Cath still in place: Yes Reason Cath still needed: other (indicate) (monitor I&O) Assessment/Plan Chief Complaint/Hosp Course Assessment and plan 1. Type B aortic dissection. Continue blood pressure control. Patient seen by vascular surgeon. No plan for surgical intervention at this time. Remains on oral antihypertensives 2. Accelerated hypertension. Continue control with oral antihypertensives. Follow-up with cardiology recommendations 3. Acute hypoxic respiratory failure. Suspect secondary to aspiration. Off ventilator at this time. cont o2. and bronchodilators as needed 4. Aspiration pneumonia. Continue antibiotics as per infectious disease consult. Continue aspiration precautions 5. Acute kidney injury, most probably secondary to hemodynamics. Nephrology following. Use nephrotoxic drugs with caution. Monitor renal panel 6. Left cephalic vein thrombosis. Continue elevation. Noted to be superficial 7. Pulmonary embolism (02/29/2016). On heparin at this time. Continue with thoracic surgeon recommendations 8. Iron deficiency anemia. Iron panel showing iron deficiency. Continue iron supplements. 9. Acute encephalopathy, most probably metabolic in origin. Per EEG done on 01/2016 showed generalized bihemispheric background slowing suggestive of bihemispheric subcortical dysfunction possibly from epileptiform activity. Continue on Keppra per neurology recs. continue neuro checks . Continue with urologist for condition 10. S/P sepsis secondary to gram-positive bacteremia. Latest blood cultures are negative. On antibiotics as per infectious diseases. 12. DVT prophylaxis. heparin. 13. GERD prophylaxis. Proton pump inhibitor. Disposition and plan: Intubated again. Excessive ability for vent liberation. Continue with pulmonology recommendations. Continue ICU monitoring Discussed plan of care with Dr. Raymundo Critical care time: 30 minutes Problems: Subjective 24 Hr Interval Summary Free Text/Dictation Intubated. Slightly tachypneic Exam/Review of Systems Vital Signs Vitals Vital Signs Date Time Temp Pulse Resp B/P Pulse Ox O2 Delivery O2 Flow Rate FiO2 03/10/16 12:13 82 03/10/16 10:15 28 143/68 100 Mechanical Ventilator 03/10/16 08:00 99.9 03/10/16 08:00 80 12/24/16 23:00 15.0 Intake and Output 03/09/16 03/09/16 03/10/16 14:59 22:59 06:59 Intake Total 860 ml 1364 ml 818 ml Output Total 880 ml 485 ml 785 ml Balance -20 ml 879 ml 33 ml Exam General: Intubated and sedated. Eyes: pupils equal round, Anicteric sclera Neck: Supple nontender, no JVD Cardiac: S1, S2 auscultated, regular rhythm and rate Pulmonary: Rales auscultated bilaterally GI: Bowel sounds active. non-distended Extremities: Edema bilateral lower and upper extremities +2 Skin: Clean dry and intact Neurologic: Intubated again and sedated Results Result Diagram: 03/10/16 0545 03/10/16 0545 Results 24 hrs Laboratory Tests Test 03/09/16 17:56 03/09/16 20:19 03/09/16 20:30 03/09/16 23:51 Bedside Glucose 194 Arterial Blood HCO3 26.4 H 28.8 H Arterial Blood Base Excess 3.2 H 2.9 Arterial Blood Oxygen Saturation 92.6 L 98.7 H Jovanny Test ACCEPTAB ACCEPTAB Arterial Blood Gas Puncture Site Right Radial Right Radial Arterial Blood Carboxyhemoglobin 0.3 0.3 Arterial Blood Date Drawn 03/09/2016 9:10:55 PM 03/10/2016 12:00:34 AM Arterial Blood Methemoglobin 0.2 0.2 Arterial Blood pCO2 (Temp correct) 34.7 L 50.8 H Arterial Blood pH (Temp corrected) 7.499 H 7.372 Arterial Blood pO2 (Temp corrected) 67.3 L 156.2 H Blood Gas A-a O2 Differential 250.2 H 506.0 H Blood Gas Modality MASK - VENTI VENT - AC Blood Gas Notified Time 03/09/2016 9:26:38 PM 03/10/2016 12:17:43 AM Blood Gas Notified Whom UP UP Blood Gas Specimen Source Blood arterial Blood arterial Blood Gas Temperature 37.0 37.0 FiO2 50.0 100.0 Oxyhemoglobin Percent 92.1 L 98.2 Total Hemoglobin 9.5 L 10.2 L Activated Partial Thromboplast Time 83.6 *H Alanine Aminotransferase (ALT/SGPT) 40 Albumin 3.6 Albumin/Globulin Ratio 0.90 Alkaline Phosphatase 134 H Anion Gap 16 Aspartate Amino Transf (AST/SGOT) 32 Blood Morphology Comment Blood Urea Nitrogen 37 H Calcium Level 9.3 Carbon Dioxide Level 31 Chloride Level 105 Creatinine 1.84 H Direct Bilirubin 0.00 Globulin 4.00 H Glucose Level 188 Hematocrit 27.1 L Hemoglobin 8.8 L Indirect Bilirubin 0.3 Lactic Acid Level 0.8 Lymphocytes # 1.5 Lymphocytes % 8.0 L Mean Corpuscular Hemoglobin 26.0 L Mean Corpuscular Hemoglobin Concent 32.4 Mean Corpuscular Volume 80.3 L Mean Platelet Volume 8.7 Monocytes # 1.3 H Monocytes % 7.0 Neutrophils # 15.6 H Neutrophils % 85.0 H Platelet Count 466 H Potassium Level 4.0 Red Blood Count 3.37 L Red Cell Distribution Width 17.3 H Sodium Level 148 H Total Bilirubin 0.3 Total Protein 7.6 White Blood Count 18.3 H Blood Gas Actual Respiration Rate 30 Blood Gas Low PEEP Setting 5.0 Blood Gas Respiration Rate 20.0 Blood Gas Tidal Volume 550.0 Test 03/10/16 00:37 03/10/16 01:00 03/10/16 02:40 03/10/16 05:45 Bedside Glucose 212 167 Arterial Blood HCO3 26.8 H Arterial Blood Base Excess 2.1 Arterial Blood Oxygen Saturation 99.0 H Jovanny Test ACCEPTAB Arterial Blood Gas Puncture Site Right Radial Arterial Blood Carboxyhemoglobin 0.3 Arterial Blood Date Drawn 03/10/2016 1:50:24 AM Arterial Blood Methemoglobin 0.6 Arterial Blood pCO2 (Temp correct) 42.0 Arterial Blood pH (Temp corrected) 7.422 Arterial Blood pO2 (Temp corrected) 235.2 H Blood Gas A-a O2 Differential 435.8 H Blood Gas Actual Respiration Rate 26 Blood Gas Low PEEP Setting 5.0 Blood Gas Modality VENT - AC Blood Gas Notified Time 03/10/2016 2:05:17 AM Blood Gas Notified Whom UP Blood Gas Respiration Rate 20.0 Blood Gas Specimen Source Blood arterial Blood Gas Temperature 37.0 Blood Gas Tidal Volume 550.0 FiO2 100.0 Oxyhemoglobin Percent 98.1 Total Hemoglobin 9.1 L Activated Partial Thromboplast Time 86.7 *H Anion Gap 17 H Anisocytosis 1+ Basophils # Basophils % Blood Morphology Comment Blood Urea Nitrogen 39 H Calcium Level 8.8 Carbon Dioxide Level 29 Chloride Level 107 Creatine Kinase 67 Creatinine 1.78 H Eosinophils # 0.4 Eosinophils % 3.0 Glucose Level 146 # Hematocrit 26.0 L Hemoglobin 8.5 L Hypochromasia 1+ Lymphocytes # 1.5 Lymphocytes % 10.0 L Mean Corpuscular Hemoglobin 26.6 L Mean Corpuscular Hemoglobin Concent 32.7 Mean Corpuscular Volume 81.3 L Mean Platelet Volume 9.1 Microcytosis 1+ Monocytes # 0.7 Monocytes % 5.0 Neutrophils # 12.1 H Neutrophils % 82.0 H Nucleated Red Blood Cells # Nucleated Red Blood Cells % 0.0 Platelet Count 387 Platelet Estimate PLT APPEAR ADEQUATE Potassium Level 4.0 Red Blood Count 3.20 L Red Cell Distribution Width 17.5 H Sodium Level 149 H White Blood Count 14.7 H Test 03/10/16 07:00 03/10/16 12:46 Arterial Blood HCO3 27.8 H Arterial Blood Base Excess 3.3 H Arterial Blood Oxygen Saturation 88.7 L Jovanny Test ACCEPTAB Arterial Blood Gas Puncture Site Right Radial Arterial Blood Carboxyhemoglobin 0.3 Arterial Blood Date Drawn 03/10/2016 8:30:36 AM Arterial Blood Methemoglobin 0.2 Arterial Blood pCO2 (Temp correct) 42.1 Arterial Blood pH (Temp corrected) 7.438 Arterial Blood pO2 (Temp corrected) 58.3 L Blood Gas A-a O2 Differential 467.9 H Blood Gas Actual Respiration Rate 24 Blood Gas Low PEEP Setting 5.0 Blood Gas Modality 550 Blood Gas Notified Time 03/10/2016 9:10:53 AM Blood Gas Notified Whom CW Blood Gas Respiration Rate 20.0 Blood Gas Specimen Source Blood arterial Blood Gas Temperature 37.0 Blood Gas Tidal Volume 550.0 FiO2 80.0 Oxyhemoglobin Percent 88.3 L Total Hemoglobin 9.9 L Bedside Glucose 144 Medications Medications Current Medications Ondansetron HCl (Zofran Inj) 4 mg Q6H PRN IV NAUSEA AND/OR VOMITING; Start 02/18/16 at 09:30 Acetaminophen (Tylenol Supp) 650 mg Q4H PRN [place] PAIN LEVEL 1-3 OR FEVER Last administered on 02/24/16at 14:32; Admin Dose 650 MG; Start 02/18/16 at 09:30 Morphine Sulfate (morphine) 2 mg Q4H PRN IV PAIN LEVEL 7-10 Last administered on 03/09/16at 11:48; Admin Dose 2 MG; Start 02/18/16 at 09:30 Bisacodyl (Dulcolax Supp) 10 mg DAILY PRN [place] CONSTIPATION; Start 02/18/16 at 09 :30 Pantoprazole (Protonix Iv) 40 mg DAILY@06 IV Last administered on 03/10/16at 05 :50; Admin Dose 40 MG; Start 02/19/16 at 06:00 Metoprolol Tartrate (Lopressor) 5 mg Q4H PRN IV HR>55 Hold SBP<100 Last administered on 03/09/16at 12:08; Admin Dose 5 MG; Start 02/21/16 at 11:30 IV Flush (NS 10 ml) 10 ml PRN PRN IV IV PROTOCOL; Start 02/21/16 at 18:30 Ferrous Sulfate (Feosol Liquid Cup) 300 mg BID GTB Last administered on at 09:07; Admin Dose 300 MG; Start 02/22/16 at 10:00 Lorazepam (Ativan) 1 mg Q1H PRN IV ANXIETY Last administered on 03/09/16at 22: 09; Admin Dose 1 MG; Start 02/23/16 at 11:30 Miscellaneous Information 1 ea NOTE XX ; Start 02/23/16 at 23:15 Glucose (Glutose) 22.5 gm Q15M PRN PO DECREASED GLUCOSE; Start 02/23/16 at 23: 15 Dextrose (D50w Syringe) 25 ml Q15M PRN IV DECREASED GLUCOSE; Start 02/23/16 at 23:15 Dextrose (D50w Syringe) 50 ml Q15M PRN IV DECREASED GLUCOSE; Start 02/23/16 at 23:15 Glucagon (Glucagen) 1 mg Q15M PRN IM DECREASED GLUCOSE; Start 02/23/16 at 23:15 Glucose 15 gm 15 gm Q15M PRN BUCCAL DECREASED GLUCOSE; Start 02/23/16 at 23:15 Levetiracetam/ Sodium Chloride (Keppra Iv/NS) 110 ml @ 440 mls/hr BID IVPB Last administered on 03/10/16at 09:03; Admin Dose 440 MLS/HR; Start 02/24/16 at 01:00 Furosemide (Lasix) 20 mg DAILY IV Last administered on 03/10/16 09:08; Admin Dose 20 MG; Start 02/27/16 at 09:00 Metoclopramide HCl (Reglan) 10 mg Q6 IV Last administered on 03/10/16at 12:22; Admin Dose 10 MG; Start 03/04/16 at 06:00 Acetaminophen (Tylenol Tab) 650 mg Q6H PRN NGT PAIN AND OR ELEVATED TEMP Last administered on 03/10/16 05:58; Admin Dose 650 MG; Start 03/06/16 at 11:30 Glucose (Glutose) 15 gm Q15M PRN NGT DECREASED GLUCOSE; Start 03/06/16 at 08: 45 Hydralazine HCl (Apresoline) 100 mg Q8 NGT Last administered on 03/10/16 05: 51; Admin Dose 100 MG; Start 03/06/16 at 14:00 Metoprolol Tartrate (Lopressor) 150 mg Q8 NGT Last administered on 03/10/16 05:50; Admin Dose 150 MG; Start 03/06/16 at 14:00 Hydralazine HCl 10 mg 10 mg Q4H PRN IV ELEVATED SYSTOLIC BP Last administered on 03/09/16 10:52; Admin Dose 10 MG; Start 03/06/16 at 16:00 Dextrose (D5W) 1,000 ml @ 80 mls/hr [id number] IV Last administered on 18:33; Admin Dose 80 MLS/HR; Start 03/08/16 at 11:30 Diltiazem HCl (Cardizem) 60 mg Q8 PO Last administered on 03/10/16 05:51; Admin Dose 60 MG; Start 03/09/16 at 14:00 Amlodipine Besylate (Norvasc) 10 mg DAILY PO Last administered on 03/10/16 09 :08; Admin Dose 10 MG; Start 03/09/16 at 17:00 Minoxidil 10 mg 10 mg BID NGT Last administered on 03/10/16 09:08; Admin Dose 10 MG; Start 03/09/16 at 21:00 Cefepime HCl 50 ml @ 100 mls/hr Q12 IVPB Last administered on 03/10/16 09:08 ; Admin Dose 100 MLS/HR; Start 03/09/16 at 21:00 Vancomycin HCl 2 gm/Sodium Chloride 500 ml @ 125 mls/hr Q24H IVPB Last administered on 03/09/16 22:48; Admin Dose 125 MLS/HR; Start 03/09/16 at 22: 00 Propofol (Diprivan) 100 ml @ 3.189 mls/ hr Q12H IV Last administered on at 12:53; Admin Dose 31.89 MLS/HR; Start 03/10/16 at 00:00 Insulin Aspart (Novolog Insulin Pen) NOVOLOG *MODERATE* ALGORI... Q6 SC Last administered on 03/10/16at 12:48; Admin Dose 2 UNIT; Start 03/10/16 at 06:00 REJI WADE Mar 10, 2016 13:49
--- NOTE | 2016-03-10 16:31 | CONS ---
Date/Time of Note Date/Time of Note DATE: 03/10/16 TIME: 16:25 Assessment/Plan Assessment/Plan Additional Assessment/Plan Hypertensive Urgency, Diastolic heart failure, Type B Aortic dissection, abnormal electrocardiogram, Pericardial effusion, Pulmonary embolism metabolic encephalopathy, Pneumonia, Renal insufficiency, Anemia He went into respiratory distress and had to be intubated Continue Ventilatory support Continue Heparin drip Continue Antibiotics Continue Norvasc and Minoxidil Continue Metoprolol, Cardizem and Hydralazine Hold Lasix Continue GI and DVT Prophylaxis Continue Pulmonary Toiletry Consultation Date/Type/Reason Admit Date/Time Feb 18, 2016 at 09:14 Initial Consult Date 02/26/16 Type of Consultation: NEPHROLOGY Referring Provider: MOSES HARRIS MD Exam/Review of Systems Vital Signs Vitals Vital Signs Date Time Temp Pulse Resp B/P Pulse Ox O2 Delivery O2 Flow Rate FiO2 03/10/16 16:08 82 03/10/16 14:15 10 107/58 100 Mechanical Ventilator 03/10/16 12:00 99.9 03/10/16 12:00 90 03/09/16 23:00 15.0 Intake and Output 03/09/16 03/09/16 03/10/16 15:00 23:00 07:00 Intake Total 810 ml 1440 ml 929.89 ml Output Total 880 ml 560 ml 765 ml Balance -70 ml 880 ml 164.89 ml Exam Intubated and sedated Head: atraumatic, normocephalic Respiratory: other (Mechanical breath sounds heard bilaterally) Cardiovascular: regular rate and rhythm Gastrointestinal: nl liver, spleen, non-tender, soft Extremities: normal pulses Results Result Diagram: 03/10/16 0545 03/10/16 0545 Results 24 hrs Laboratory Tests Test 03/09/16 17:56 03/09/16 20:19 03/09/16 20:30 03/09/16 23:51 Bedside Glucose 194 Arterial Blood HCO3 26.4 H 28.8 H Arterial Blood Base Excess 3.2 H 2.9 Arterial Blood Oxygen Saturation 92.6 L 98.7 H Jovanny Test ACCEPTAB ACCEPTAB Arterial Blood Gas Puncture Site Right Radial Right Radial Arterial Blood Carboxyhemoglobin 0.3 0.3 Arterial Blood Date Drawn 03/09/2016 9:10:55 PM 03/10/2016 12:00:34 AM Arterial Blood Methemoglobin 0.2 0.2 Arterial Blood pCO2 (Temp correct) 34.7 L 50.8 H Arterial Blood pH (Temp corrected) 7.499 H 7.372 Arterial Blood pO2 (Temp corrected) 67.3 L 156.2 H Blood Gas A-a O2 Differential 250.2 H 506.0 H Blood Gas Modality MASK - VENTI VENT - AC Blood Gas Notified Time 03/09/2016 9:26:38 PM 03/10/2016 12:17:43 AM Blood Gas Notified Whom UP UP Blood Gas Specimen Source Blood arterial Blood arterial Blood Gas Temperature 37.0 37.0 FiO2 50.0 100.0 Oxyhemoglobin Percent 92.1 L 98.2 Total Hemoglobin 9.5 L 10.2 L Activated Partial Thromboplast Time 83.6 *H Alanine Aminotransferase (ALT/SGPT) 40 Albumin 3.6 Albumin/Globulin Ratio 0.90 Alkaline Phosphatase 134 H Anion Gap 16 Aspartate Amino Transf (AST/SGOT) 32 Blood Morphology Comment Blood Urea Nitrogen 37 H Calcium Level 9.3 Carbon Dioxide Level 31 Chloride Level 105 Creatinine 1.84 H Direct Bilirubin 0.00 Globulin 4.00 H Glucose Level 188 Hematocrit 27.1 L Hemoglobin 8.8 L Indirect Bilirubin 0.3 Lactic Acid Level 0.8 Lymphocytes # 1.5 Lymphocytes % 8.0 L Mean Corpuscular Hemoglobin 26.0 L Mean Corpuscular Hemoglobin Concent 32.4 Mean Corpuscular Volume 80.3 L Mean Platelet Volume 8.7 Monocytes # 1.3 H Monocytes % 7.0 Neutrophils # 15.6 H Neutrophils % 85.0 H Platelet Count 466 H Potassium Level 4.0 Red Blood Count 3.37 L Red Cell Distribution Width 17.3 H Sodium Level 148 H Total Bilirubin 0.3 Total Protein 7.6 White Blood Count 18.3 H Blood Gas Actual Respiration Rate 30 Blood Gas Low PEEP Setting 5.0 Blood Gas Respiration Rate 20.0 Blood Gas Tidal Volume 550.0 Test 03/10/16 00:37 03/10/16 01:00 03/10/16 02:40 03/10/16 05:45 Bedside Glucose 212 167 Arterial Blood HCO3 26.8 H Arterial Blood Base Excess 2.1 Arterial Blood Oxygen Saturation 99.0 H Jovanny Test ACCEPTAB Arterial Blood Gas Puncture Site Right Radial Arterial Blood Carboxyhemoglobin 0.3 Arterial Blood Date Drawn 03/10/2016 1:50:24 AM Arterial Blood Methemoglobin 0.6 Arterial Blood pCO2 (Temp correct) 42.0 Arterial Blood pH (Temp corrected) 7.422 Arterial Blood pO2 (Temp corrected) 235.2 H Blood Gas A-a O2 Differential 435.8 H Blood Gas Actual Respiration Rate 26 Blood Gas Low PEEP Setting 5.0 Blood Gas Modality VENT - AC Blood Gas Notified Time 03/10/2016 2:05:17 AM Blood Gas Notified Whom UP Blood Gas Respiration Rate 20.0 Blood Gas Specimen Source Blood arterial Blood Gas Temperature 37.0 Blood Gas Tidal Volume 550.0 FiO2 100.0 Oxyhemoglobin Percent 98.1 Total Hemoglobin 9.1 L Activated Partial Thromboplast Time 86.7 *H Anion Gap 17 H Anisocytosis 1+ Basophils # Basophils % Blood Morphology Comment Blood Urea Nitrogen 39 H Calcium Level 8.8 Carbon Dioxide Level 29 Chloride Level 107 Creatine Kinase 67 Creatinine 1.78 H Eosinophils # 0.4 Eosinophils % 3.0 Glucose Level 146 # Hematocrit 26.0 L Hemoglobin 8.5 L Hypochromasia 1+ Lymphocytes # 1.5 Lymphocytes % 10.0 L Mean Corpuscular Hemoglobin 26.6 L Mean Corpuscular Hemoglobin Concent 32.7 Mean Corpuscular Volume 81.3 L Mean Platelet Volume 9.1 Microcytosis 1+ Monocytes # 0.7 Monocytes % 5.0 Neutrophils # 12.1 H Neutrophils % 82.0 H Nucleated Red Blood Cells # Nucleated Red Blood Cells % 0.0 Platelet Count 387 Platelet Estimate PLT APPEAR ADEQUATE Potassium Level 4.0 Red Blood Count 3.20 L Red Cell Distribution Width 17.5 H Sodium Level 149 H White Blood Count 14.7 H Test 03/10/16 07:00 03/10/16 12:46 Arterial Blood HCO3 27.8 H Arterial Blood Base Excess 3.3 H Arterial Blood Oxygen Saturation 88.7 L Jovanny Test ACCEPTAB Arterial Blood Gas Puncture Site Right Radial Arterial Blood Carboxyhemoglobin 0.3 Arterial Blood Date Drawn 03/10/2016 8:30:36 AM Arterial Blood Methemoglobin 0.2 Arterial Blood pCO2 (Temp correct) 42.1 Arterial Blood pH (Temp corrected) 7.438 Arterial Blood pO2 (Temp corrected) 58.3 L Blood Gas A-a O2 Differential 467.9 H Blood Gas Actual Respiration Rate 24 Blood Gas Low PEEP Setting 5.0 Blood Gas Modality 550 Blood Gas Notified Time 03/10/2016 9:10:53 AM Blood Gas Notified Whom CW Blood Gas Respiration Rate 20.0 Blood Gas Specimen Source Blood arterial Blood Gas Temperature 37.0 Blood Gas Tidal Volume 550.0 FiO2 80.0 Oxyhemoglobin Percent 88.3 L Total Hemoglobin 9.9 L Bedside Glucose 144 Medications Medications Current Medications Ondansetron HCl (Zofran Inj) 4 mg Q6H PRN IV NAUSEA AND/OR VOMITING; Start 02/18/16 at 09:30 Acetaminophen (Tylenol Supp) 650 mg Q4H PRN [place] PAIN LEVEL 1-3 OR FEVER Last administered on 02/24/16at 14:32; Admin Dose 650 MG; Start 02/18/16 at 09:30 Morphine Sulfate (morphine) 2 mg Q4H PRN IV PAIN LEVEL 7-10 Last administered on 03/09/16at 11:48; Admin Dose 2 MG; Start 02/18/16 at 09:30 Bisacodyl (Dulcolax Supp) 10 mg DAILY PRN [place] CONSTIPATION; Start 02/18/16 at 09 :30 Pantoprazole (Protonix Iv) 40 mg DAILY@06 IV Last administered on 03/10/16at 05 :50; Admin Dose 40 MG; Start 02/19/16 at 06:00 Metoprolol Tartrate (Lopressor) 5 mg Q4H PRN IV HR>55 Hold SBP<100 Last administered on 03/09/16at 12:08; Admin Dose 5 MG; Start 02/21/16 at 11:30 IV Flush (NS 10 ml) 10 ml PRN PRN IV IV PROTOCOL; Start 02/21/16 at 18:30 Ferrous Sulfate (Feosol Liquid Cup) 300 mg BID GTB Last administered on at 09:07; Admin Dose 300 MG; Start 02/22/16 at 10:00 Lorazepam (Ativan) 1 mg Q1H PRN IV ANXIETY Last administered on 03/09/16at 22: 09; Admin Dose 1 MG; Start 02/23/16 at 11:30 Miscellaneous Information 1 ea NOTE XX ; Start 02/23/16 at 23:15 Glucose (Glutose) 22.5 gm Q15M PRN PO DECREASED GLUCOSE; Start 02/23/16 at 23: 15 Dextrose (D50w Syringe) 25 ml Q15M PRN IV DECREASED GLUCOSE; Start 02/23/16 at 23:15 Dextrose (D50w Syringe) 50 ml Q15M PRN IV DECREASED GLUCOSE; Start 02/23/16 at 23:15 Glucagon (Glucagen) 1 mg Q15M PRN IM DECREASED GLUCOSE; Start 02/23/16 at 23:15 Glucose 15 gm 15 gm Q15M PRN BUCCAL DECREASED GLUCOSE; Start 02/23/16 at 23:15 Levetiracetam/ Sodium Chloride (Keppra Iv/NS) 110 ml @ 440 mls/hr BID IVPB Last administered on 03/10/16at 09:03; Admin Dose 440 MLS/HR; Start 02/24/16 at 01:00 Furosemide (Lasix) 20 mg DAILY IV Last administered on 03/10/16at 09:08; Admin Dose 20 MG; Start 02/27/16 at 09:00 Metoclopramide HCl (Reglan) 10 mg Q6 IV Last administered on 03/10/16at 12:22; Admin Dose 10 MG; Start 03/04/16 at 06:00 Acetaminophen (Tylenol Tab) 650 mg Q6H PRN NGT PAIN AND OR ELEVATED TEMP Last administered on 03/10/16at 05:58; Admin Dose 650 MG; Start 03/06/16 at 11:30 Glucose (Glutose) 15 gm Q15M PRN NGT DECREASED GLUCOSE; Start 03/06/16 at 08: 45 Hydralazine HCl (Apresoline) 100 mg Q8 NGT Last administered on 03/10/16at 14: 04; Admin Dose 100 MG; Start 03/06/16 at 14:00 Metoprolol Tartrate (Lopressor) 150 mg Q8 NGT Last administered on 03/10/16at 14:04; Admin Dose 150 MG; Start 03/06/16 at 14:00 Hydralazine HCl 10 mg 10 mg Q4H PRN IV ELEVATED SYSTOLIC BP Last administered on 03/09/16at 10:52; Admin Dose 10 MG; Start 03/06/16 at 16:00 Dextrose (D5W) 1,000 ml @ 80 mls/hr [id number] IV Last administered on at 18:33; Admin Dose 80 MLS/HR; Start 03/08/16 at 11:30 Diltiazem HCl (Cardizem) 60 mg Q8 PO Last administered on 03/10/16 14:05; Admin Dose 60 MG; Start 03/09/16 at 14:00 Amlodipine Besylate (Norvasc) 10 mg DAILY PO Last administered on 03/10/16 09 :08; Admin Dose 10 MG; Start 03/09/16 at 17:00 Minoxidil 10 mg 10 mg BID NGT Last administered on 03/10/16 09:08; Admin Dose 10 MG; Start 03/09/16 at 21:00 Cefepime HCl 50 ml @ 100 mls/hr Q12 IVPB Last administered on 03/10/16 09:08 ; Admin Dose 100 MLS/HR; Start 03/09/16 at 21:00 Vancomycin HCl 2 gm/Sodium Chloride 500 ml @ 125 mls/hr Q24H IVPB Last administered on 03/09/16 22:48; Admin Dose 125 MLS/HR; Start 03/09/16 at 22: 00 Propofol (Diprivan) 100 ml @ 3.189 mls/ hr Q12H IV Last administered on 15:40; Admin Dose 31.89 MLS/HR; Start 03/10/16 at 00:00 Insulin Aspart (Novolog Insulin Pen) NOVOLOG *MODERATE* ALGORI... Q6 SC Last administered on 03/10/16 12:48; Admin Dose 2 UNIT; Start 03/10/16 at 06:00 ESTEFANIA ALLEN M.D. Mar 10, 2016 16:31
--- NOTE | 2016-03-10 17:50 | PN ---
Date/Time of Note Date/Time of Note DATE: 03/10/16 TIME: 17:48 Assessment/Plan Lines/Catheters IV Catheter Type (from Nrs): PICC Line Smalls in Place (from Nrs): Yes Assessment/Plan Chief Complaint/Hosp Course IMPRESSION: Type B aortic dissection. The patient's blood pressure more controlled RECOMMENDATIONS: At this time, we would continue blood pressure management, monitor vital signs and laboratory values in an intensive care unit setting. Vent support per pulm medicine No plan for surgery. Abx Repeat CTA Dissection involving the thoracic aorta arising distal to the origin of the left subclavian artery and extending into the abdominal aorta. The distal extent was not included on the study. Flow within both true and false lumen to the level of the celiac artery. Would continue BP control , Vent support Type B aortic dissection PE, anticoagulation follow neurology recc. no plan for surgery at this time I discussed with the patient and Dr. Mccabe and staff Problems: Subjective 24 Hr Interval Summary Constitutional: improved Pain Control: mild Exam/Review of Systems Vital Signs Vitals Vital Signs Date Time Temp Pulse Resp B/P Pulse Ox O2 Delivery O2 Flow Rate FiO2 03/10/16 16:45 81 24 134/68 100 Mechanical Ventilator 03/10/16 16:00 100.2 03/10/16 12:00 90 03/09/16 23:00 15.0 Intake and Output 03/09/16 03/09/16 03/10/16 15:00 23:00 07:00 Intake Total 810 ml 1440 ml 929.89 ml Output Total 880 ml 560 ml 765 ml Balance -70 ml 880 ml 164.89 ml Exam Neck: non-tender, supple Respiratory: clear to auscultation, normal air movement Cardiovascular: nl pulses, regular rate and rhythm Gastrointestinal: nl liver, spleen, non-tender, soft Results Result Diagram: 03/10/16 0545 03/10/16 0545 KAYLNY RADFORD MD Mar 10, 2016 17:50
--- NOTE | 2016-03-10 17:51 | PN ---
DATE: 03/10/2016 INFECTIOUS DISEASE PROGRESS NOTE SUBJECTIVE: The patient had been extubated last night, spiked a fever of 101 and started on broad s pectrum antibiotics, currently comfortable lying in bed, intubated and sedated. VITAL SIGNS: Temperature 99.9, pulse 82, respirations 28, blood pressure 143/68, saturation 100 on vent support. WBC 14.7, H and H 8.5 and 26, platelets 387, neutrophils 82. BUN 39, creatinine 1.78. MICROBIOLOGY: Repeat cultures pending. DIAGNOSTICS: Chest x-ray this morning revealed slightly improved right lung aeration with slight in crease in left basilar infiltrate. INDWELLINGS: Endotracheal tube, NG tube, Smalls catheter, PICC line placed on February 20. ANTIMICROBIALS: 1. Vancomycin. 2. Cefepime. PHYSICAL EXAMINATION: GENERAL: This is a morbidly obese, middle-aged -[place] man who is intubated, sedated, in n o distress. HEENT: Head atraumatic, normocephalic. Sclerae anicteric. Buccal mucosa dry. NECK: Obese. CHEST: Rise symmetrical. Breath sounds diminished to bases. HEART: S1, S2. ABDOMEN: Obese, soft. Bowel tones hypoactive. EXTREMITIES: Bilateral edema. ASSESSMENT: 1. Sepsis. 2. Acute respiratory failure, possibly aspiration pneumonia. 3. Type B aortic stenosis. 4. Seizure disorder. 5. Acute encephalopathy. 6. Accelerated hypertension. PLAN: The patient is hemodynamically stable status post reintubation yesterday, started on broad sp ectrum antibiotics. We are going to repeat cultures and make sure send sputum cultures as well. Co ntinue vent support per pulmonary. Dictated By: HUSAM SANFORD FISHER TRAP for YESIKA HESS MD NI/EFRAIN Conf#: [id number] DID#: [id number]
[2016-03-10] MEDS: VANCOMYCIN 2 GM in SOD CHLORIDE 0.9% 500 ML IVPB SCH (21:58)
[2016-03-10] MEDS: LORAZEPAM 2 MG INJ IV PRN (22:10)
[2016-03-11] VITALS (68 sets, daily range): BP systolic 111–160; BP diastolic 53–91; PULSE 68–98; RESP 6–36
[2016-03-11] MEDS: METOCLOPRAMIDE 10 MG INJ IV SCH ×4 (00:28→17:49)
[2016-03-11] MEDS: INSULIN ASPART [NOVOLOG] 3 ML PEN SC SCH ×4 (00:29→17:57)
[2016-03-11] MEDS: ALBUTEROL HFA 8 GM INHALER INH SCH ×4 (01:14→19:35)
[2016-03-11] MEDS: PROPOFOL 100 ML IV SCH ×6 (01:34→20:36)
[2016-03-11] MEDS: DEXTROSE 5% 1,000 ML IV SCH ×2 (02:00→09:00)
[2016-03-11] MEDS: PANTOPRAZOLE 40 MG INJ IV SCH (05:58)
[2016-03-11] MEDS: DILTIAZEM 60 MG TAB PO SCH ×3 (05:59→22:39)
[2016-03-11] MEDS: METOPROLOL 100 MG TAB NGT SCH ×3 (06:00→22:40)
[2016-03-11 06:05] LABS: INR 1.41; PROTIME 17.3 Sec (12.2-14.2); PT RATIO 1.4
[2016-03-11 06:31] LABS: ALBUMIN 3.1 g/dl (3.3-4.9); POTASSIUM 3.6 mmol/L (3.5-5.1)
[2016-03-11 06:33] LABS: BILIRUBIN,INDIRECT 0.2 mg/dl (0-1.1); BILIRUBIN,TOTAL 0.2 mg/dl (0.2-1.3); CREATININE 1.89 mg/dl (0.61-1.24)
[2016-03-11 06:34] LABS: ALBUMIN/GLOBULIN RATIO 0.86; CALCIUM 8.7 mg/dl (8.4-10.2); TOTAL PROTEIN 6.7 g/dl (6.1-8.1)
[2016-03-11 06:54] LABS: PARTIAL THROMBOPLASTIN TIME 90.4 Sec (25.0-35.0)
[2016-03-11 07:04] LABS: CONDITION 1; HEMATOCRIT 23.4 % (42.0-52.0); HEMOGLOBIN 7.6 g/dl (14.0-18.0); LH ANALYZER COMMENTS 1; MEAN CORPUSCULAR HEMOGLOBIN 26.2 pg (29.0-33.0); MEAN CORPUSCULAR HGB CONC 32.4 g/dl (32.0-37.0); MEAN CORPUSCULAR VOLUME 80.8 fl (82.0-101.0); MEAN PLATELET VOLUME 8.9 fl (7.4-10.4); PLATELET COUNT 344 10^3/UL (140-440); RED BLOOD COUNT 2.89 10^6/ul (4.70-6.10); RED CELL DISTRIBUTION WIDTH 16.9 % (11.5-14.5); SUSPECT 1; UNCORRECTED WBC 14.1 10^3/ul (4.8-10.8); WHITE BLOOD COUNT 14.1 10^3/ul (4.8-10.8)
[2016-03-11 07:20] LABS: AADO2 Arterial 475.6 mmHg (7.0-24.0); Allen Test ACCEPTAB; Arterial Base Excess 3.1 mmol/L (-3.0-3); Arterial COHb 0.3 % (0.0-3.0); Arterial Fraction of Oxyhgb 97.5 % (93.0-99.0); Arterial HCO3 27.3 mmol/L (22.0-26.0); Arterial MetHb 0.4 % (0.0-1.5); Arterial Total Hemglobin 8.7 g/dl (12.0-18.0); MODE VENT - AC
--- NOTE | 2016-03-11 07:24 | RADRPT ---
PROCEDURE: XR Chest. CLINICAL INDICATION: Respiratory failure TECHNIQUE: Portable single view of the chest COMPARISON: 03/10 FINDINGS: Since the prior study, there has been no significant interval change in the appearance of the heart or lungs or position of tubes and lines allowing for slight differences in technique and positioning . Tubes and lines remain in good position. Extensive bilateral lung infiltrates or edema again seen . IMPRESSION: No significant interval change. RPTAT: HLBE Denia Saeed Physician Date Time Electronically viewed and signed by Denia Saeed Physician on 03/11/2016 07:23 LE/
[2016-03-11] MEDS: HEPARIN 25000 UNITS/250 ML 250 ML IV SCH ×2 (08:03→17:54)
[2016-03-11] MEDS: morphine 2 MG INJ IV PRN ×2 (08:06→16:13)
[2016-03-11] MEDS: LORAZEPAM 2 MG INJ IV PRN ×5 (08:06→16:13)
[2016-03-11] MEDS: LEVETIRACETAM IV 1,000 MG in SOD CHLORIDE 0.9% 100 ML IVPB SCH (08:08)
[2016-03-11] MEDS: CEFEPIME 1GM/50 ML (PMX) 50 ML IVPB SCH ×2 (08:08→20:36)
[2016-03-11] MEDS: FERROUS SULFATE 60 MG/ML 5ML CUP GTB SCH ×2 (08:08→20:36)
[2016-03-11] MEDS: AMLODIPINE 10 MG TAB PO SCH (08:09)
[2016-03-11] MEDS: MINOXIDIL 10 MG TAB NGT SCH ×2 (08:30→20:37)
[2016-03-11] MEDS: IPRATROPIUM (HFA) 12.9 GM INHALER INH SCH ×3 (09:03→19:35)
--- NOTE | 2016-03-11 09:21 | PN ---
Date/Time of Note Date/Time of Note DATE: 03/11/16 TIME: 09:16 Assessment/Plan VTE Prophylaxis VTE Prophylaxis Intervention: heparin Lines/Catheters IV Catheter Type (from [facility]): PICC Line Central line still needed: Yes Urinary Cath still in place: Yes Reason Cath still needed: terminal illness/intractable pain Assessment/Plan Chief Complaint/Hosp Course 1. Type B aortic dissection. Continue blood pressure control. Continue ICU monitoring. Status post evaluation by vascular surgery. No surgical intervention as of now. 2. Accelerated hypertension. Currently controlled. On antihypertensives. 3. Acute hypoxic respiratory failure. Etiology unclear. Most probably secondary to aspiration. Continue ventilator support as per pulmonary. The patient was extubated and then re-intubated. 4. Aspiration pneumonia. Continue antibiotics as per infectious diseases. 5. Acute kidney injury, most probably secondary to hemodynamics. Nephrology following. Use nephrotoxic drugs with caution. 6. Left cephalic vein thrombosis. Continue elevation. 7. Pulmonary embolism (02/29/2016). On therapeutic anticoagulation with heparin gtt. 8. Microcytic hypochromic anemia. Iron panel showing iron deficiency. Continue iron supplements. 9. Acute encephalopathy, most probably metabolic in origin. Electroencephalography showing background slowing suggesting bihemispheric subcortical dysfunction, possibly epileptiform activity. The patient is on anticonvulsants. Was evaluated by Neurology. 10. S/P sepsis secondary to gram-positive bacteremia. Latest blood cultures are negative. On antibiotics as per infectious diseases. 11. Fluids, electrolytes, and nutrition. Continue NG tube feedings. 12. Deep venous thrombosis prophylaxis. On therapeutic anticoagulation. 13. Gastrointestinal prophylaxis. Proton pump inhibitor. PLAN: Continue intensive care unit monitoring. Ventilator weaning as per pulmonary. Increase the dose of Keppra. Case discussed with Dr. Mosher. Critical care time 35 minutes. Problems: Subjective 24 Hr Interval Summary Free Text/Dictation Patient having seizure like activity. Remains on Vent with high FiO2. Exam/Review of Systems Vital Signs Vitals Vital Signs Date Time Temp Pulse Resp B/P Pulse Ox O2 Delivery O2 Flow Rate FiO2 03/11/16 08:00 90 03/11/16 06:00 81 12 151/75 99 Mechanical Ventilator 03/11/16 04:00 99.7 03/09/16 23:00 15.0 Intake and Output 03/10/16 03/10/16 03/11/16 15:00 23:00 07:00 Intake Total 1793.12 ml 1561.56 ml 1682 ml Output Total 660 ml 700 ml 750 ml Balance 1133.12 ml 861.56 ml 932 ml Exam GENERAL: Obese male lying bed. Orally intubated. HEENT: Head normocephalic and atraumatic. Eyes: Anicteric sclerae. Conjunctivae clear. ENT: Nasal septum is midline. Oral mucosa is dry. NECK: Short and obese. Unable to visualize any neck veins. CARDIAC: Regular rate and rhythm. S1 and S2 heard. ABDOMEN: Protruded. Soft. Bowel sounds hypoactive in all 4 quadrants. GENITOURINARY: The patient has a Smalls catheter in place. EXTREMITIES: No cyanosis, no clubbing. Edema of bilateral lower extremities and bilateral upper extremities. Right upper extremity PICC line in place. Peripheral pulses palpable. NEUROLOGIC: The patient is sedated. Observed seizure like movements. Results Result Diagram: 03/11/16 0540 03/11/16 0540 Results 24 hrs Laboratory Tests Test 03/10/16 12:46 03/10/16 18:26 03/11/16 00:27 03/11/16 05:40 Bedside Glucose 144 146 147 Activated Partial Thromboplast Time 90.4 *H Alanine Aminotransferase (ALT/SGPT) 37 Albumin 3.1 L Albumin/Globulin Ratio 0.86 Alkaline Phosphatase 115 Anion Gap 15 Aspartate Amino Transf (AST/SGOT) 22 Basophils # Pending Basophils % Pending Blood Morphology Comment Blood Urea Nitrogen 38 H Calcium Level 8.7 Carbon Dioxide Level 30 Chloride Level 103 Creatinine 1.89 H Direct Bilirubin 0.00 Eosinophils # Pending Eosinophils % Pending Globulin 3.60 H Glucose Level 147 Hematocrit 23.4 L Hemoglobin 7.6 L INR International Normalized Ratio 1.41 Indirect Bilirubin 0.2 Lymphocytes # Pending Lymphocytes % Pending Mean Corpuscular Hemoglobin 26.2 L Mean Corpuscular Hemoglobin Concent 32.4 Mean Corpuscular Volume 80.8 L Mean Platelet Volume 8.9 Monocytes # Pending Monocytes % Pending Neutrophils # Pending Neutrophils % Pending Nucleated Red Blood Cells # Pending Nucleated Red Blood Cells % Pending Platelet Count 344 Potassium Level 3.6 Prothrombin Time 17.3 H Prothrombin Time Ratio 1.4 Red Blood Count 2.89 L Red Cell Distribution Width 16.9 H Sodium Level 144 Total Bilirubin 0.2 Total Protein 6.7 White Blood Count 14.1 H Test 03/11/16 05:55 03/11/16 07:00 Bedside Glucose 152 Arterial Blood HCO3 27.3 H Arterial Blood Base Excess 3.1 H Arterial Blood Oxygen Saturation 98.2 H Jovanny Test ACCEPTAB Arterial Blood Gas Puncture Site Right Radial Arterial Blood Carboxyhemoglobin 0.3 Arterial Blood Date Drawn 03/11/2016 7:10:34 AM Arterial Blood Methemoglobin 0.4 Arterial Blood pCO2 (Temp correct) 39.9 Arterial Blood pH (Temp corrected) 7.453 H Arterial Blood pO2 (Temp corrected) 125.2 H Blood Gas A-a O2 Differential 475.6 H Blood Gas Actual Respiration Rate 25 Blood Gas Low PEEP Setting 5.0 Blood Gas Modality VENT - AC Blood Gas Notified Time 03/11/2016 7:20:40 AM Blood Gas Notified Whom UP Blood Gas Respiration Rate 20.0 Blood Gas Specimen Source Blood arterial Blood Gas Temperature 37.0 Blood Gas Tidal Volume 550.0 FiO2 90.0 Oxyhemoglobin Percent 97.5 Total Hemoglobin 8.7 L Medications Medications Current Medications Ondansetron HCl (Zofran Inj) 4 mg Q6H PRN IV NAUSEA AND/OR VOMITING; Start 02/18/16 at 09:30 Acetaminophen (Tylenol Supp) 650 mg Q4H PRN [place] PAIN LEVEL 1-3 OR FEVER Last administered on 02/24/16at 14:32; Admin Dose 650 MG; Start 02/18/16 at 09:30 Morphine Sulfate (morphine) 2 mg Q4H PRN IV PAIN LEVEL 7-10 Last administered on 03/11/16at 08:06; Admin Dose 2 MG; Start 02/18/16 at 09:30 Bisacodyl (Dulcolax Supp) 10 mg DAILY PRN [place] CONSTIPATION; Start 02/18/16 at 09 :30 Pantoprazole (Protonix Iv) 40 mg DAILY@06 IV Last administered on 03/11/16at 05 :58; Admin Dose 40 MG; Start 02/19/16 at 06:00 Metoprolol Tartrate (Lopressor) 5 mg Q4H PRN IV HR>55 Hold SBP<100 Last administered on 03/09/16at 12:08; Admin Dose 5 MG; Start 02/21/16 at 11:30 IV Flush (NS 10 ml) 10 ml PRN PRN IV IV PROTOCOL; Start 02/21/16 at 18:30 Ferrous Sulfate (Feosol Liquid Cup) 300 mg BID GTB Last administered on at 08:08; Admin Dose 300 MG; Start 02/22/16 at 10:00 Lorazepam (Ativan) 1 mg Q1H PRN IV ANXIETY Last administered on 03/11/16at 08: 06; Admin Dose 1 MG; Start 02/23/16 at 11:30 Miscellaneous Information 1 ea NOTE XX ; Start 02/23/16 at 23:15 Glucose (Glutose) 22.5 gm Q15M PRN PO DECREASED GLUCOSE; Start 02/23/16 at 23: 15 Dextrose (D50w Syringe) 25 ml Q15M PRN IV DECREASED GLUCOSE; Start 02/23/16 at 23:15 Dextrose (D50w Syringe) 50 ml Q15M PRN IV DECREASED GLUCOSE; Start 02/23/16 at 23:15 Glucagon (Glucagen) 1 mg Q15M PRN IM DECREASED GLUCOSE; Start 02/23/16 at 23:15 Glucose 15 gm 15 gm Q15M PRN BUCCAL DECREASED GLUCOSE; Start 02/23/16 at 23:15 Levetiracetam/ Sodium Chloride (Keppra Iv/NS) 110 ml @ 440 mls/hr BID IVPB Last administered on 03/11/16at 08:08; Admin Dose 440 MLS/HR; Start 02/24/16 at 01:00 Metoclopramide HCl (Reglan) 10 mg Q6 IV Last administered on 03/11/16at 05:58; Admin Dose 10 MG; Start 03/04/16 at 06:00 Acetaminophen (Tylenol Tab) 650 mg Q6H PRN NGT PAIN AND OR ELEVATED TEMP Last administered on 03/10/16at 05:58; Admin Dose 650 MG; Start 03/06/16 at 11:30 Glucose (Glutose) 15 gm Q15M PRN NGT DECREASED GLUCOSE; Start 03/06/16 at 08: 45 Hydralazine HCl (Apresoline) 100 mg Q8 NGT Last administered on 03/11/16at 05: 59; Admin Dose 100 MG; Start 03/06/16 at 14:00 Metoprolol Tartrate (Lopressor) 150 mg Q8 NGT Last administered on 03/11/16at 06:00; Admin Dose 150 MG; Start 03/06/16 at 14:00 Hydralazine HCl 10 mg 10 mg Q4H PRN IV ELEVATED SYSTOLIC BP Last administered on 03/09/16 10:52; Admin Dose 10 MG; Start 03/06/16 at 16:00 Dextrose (D5W) 1,000 ml @ 80 mls/hr [id number] IV Last administered on 18:23; Admin Dose 80 MLS/HR; Start 03/08/16 at 11:30 Diltiazem HCl (Cardizem) 60 mg Q8 PO Last administered on 03/11/16 05:59; Admin Dose 60 MG; Start 03/09/16 at 14:00 Amlodipine Besylate (Norvasc) 10 mg DAILY PO Last administered on 03/11/16 08 :09; Admin Dose 10 MG; Start 03/09/16 at 17:00 Minoxidil 10 mg 10 mg BID NGT Last administered on 03/11/16 08:30; Admin Dose 10 MG; Start 03/09/16 at 21:00 Cefepime HCl 50 ml @ 100 mls/hr Q12 IVPB Last administered on 03/11/16 08:08 ; Admin Dose 100 MLS/HR; Start 03/09/16 at 21:00 Vancomycin HCl 2 gm/Sodium Chloride 500 ml @ 125 mls/hr Q24H IVPB Last administered on 03/10/16at 21:58; Admin Dose 125 MLS/HR; Start 03/09/16 at 22: 00 Propofol (Diprivan) 100 ml @ 3.189 mls/ hr Q12H IV Last administered on 08:06; Admin Dose 31.89 MLS/HR; Start 03/10/16 at 00:00 Insulin Aspart (Novolog Insulin Pen) NOVOLOG *MODERATE* ALGORI... Q6 SC Last administered on 03/11/16 06:01; Admin Dose 2 UNIT; Start 03/10/16 at 06:00 KEITH CRAIG NP Mar 11, 2016 09:21
[2016-03-11 09:29] LABS: EOSINOPHILS # 0.6 10^3/ul (0.0-0.5); LYMPHOCYTES # 1.6 10^3/ul (0.8-2.9)
--- NOTE | 2016-03-11 11:13 | PN ---
DATE: 03/09/2016 SUBJECTIVE: No acute events. The patient is lethargic, follows commands. He is in no distress. VITAL SIGNS: T-max yesterday was 100.8. Currently afebrile with a pulse 87, respirations 30, blood pressure was 187/93 saturation 94 on nasal cannula. Sodium 152, BUN 33, creatinine 1.77. INDWELLINGS: PICC line, Smalls, NG tube. DIAGNOSTICS: Chest x-ray this morning revealed no change however, there is a small right pleural e ffusion and no left pleural effusion, no pneumothorax. ANTIMICROBIALS: The patient had been off antibiotics. He is currently on Flagyl for diarrhea. PHYSICAL EXAMINATION: GENERAL: This is an obese, well-developed, middle-aged man who is lethargic, in no distress. HEENT: Head atraumatic, normocephalic. Sclerae anicteric. Buccal mucosa dry. NECK: Supple, trachea midline. CHEST: Rise symmetrical. Breath sounds diminished to bases. HEART: S1, S2. ABDOMEN: Obese, soft. Bowel tones hypoactive. EXTREMITIES: Bilateral edema. ASSESSMENT 1. Systemic inflammatory response syndrome with persistent leukocytosis, patient is status post 2 w eeks IV antibiotics discontinued 3 days ago. 2. Status post acute respiratory failure secondary to pulmonary edema and pneumonia. 3. Accelerated hypertension. 4. dissection. 5. New onset seizures, status epilepticus. 6. Dysphagia, failed swallow evaluation today. PLAN: The patient remains stable post-extubation, still with persistent leukocytosis. He had been off antibiotics for 3 days; however, has been afebrile since this morning and T-max was 100.8 yester day. He is at high risk for aspiration and we will monitor his chest x-ray closely. He is being fo llowed by multiple consultants. CT of the head revealed no intracranial hemorrhage or other acute ab normalities. Dictated By: HUSAM SANFORD ASSIGNMENT CLERK for YESIKA LOPEZ/EFRAIN Conf#: [id number] DID#: [id number]
[2016-03-11] MEDS ORDERED: BUMETANIDE 1 MG INJ IV ONE (11:30)
--- NOTE | 2016-03-11 13:31 | CONS ---
Date/Time of Note Date/Time of Note DATE: 03/11/16 TIME: 13:28 Consult Date/Type/Reason Admit Date/Time Feb 18, 2016 at 09:14 Initial Consult Date 02/26/16 Type of Consultation: Neurology Reason for Consultation evaluate for anoxia, seizures Ordering Provider: MOSES HARRIS MD Subjective fiance at bedside has noted intermittent shivering type movements, no marshall generalized seizure noted reintubated over the weekend, currently sedated on propofol drip Objective Vital Signs Date Time Temp Pulse Resp B/P Pulse Ox O2 Delivery O2 Flow Rate FiO2 03/11/16 13:00 85 18 136/66 97 Mechanical Ventilator 03/11/16 12:00 99.0 03/11/16 10:00 75 03/09/16 23:00 15.0 Intake and Output 03/10/16 03/10/16 03/11/16 15:00 23:00 07:00 Intake Total 1793.12 ml 1561.56 ml 1682 ml Output Total 660 ml 700 ml 750 ml Balance 1133.12 ml 861.56 ml 932 ml Limited exam due to sedation on propofol drip unable to open eyes spontaneously, no spontaneous movement noted has corneals and gag reflex brief shivering type movement noted, muscle twitching right biceps Results/Medications Result Diagram: 03/11/16 0540 03/11/16 0540 Results 24 hrs Laboratory Tests Test 03/10/16 18:26 03/11/16 00:27 03/11/16 05:40 03/11/16 05:55 Bedside Glucose 146 147 152 Activated Partial Thromboplast Time 90.4 *H Alanine Aminotransferase (ALT/SGPT) 37 Albumin 3.1 L Albumin/Globulin Ratio 0.86 Alkaline Phosphatase 115 Anion Gap 15 Aspartate Amino Transf (AST/SGOT) 22 Basophils # Basophils % Blood Morphology Comment Blood Urea Nitrogen 38 H Calcium Level 8.7 Carbon Dioxide Level 30 Chloride Level 103 Creatinine 1.89 H Differential Comment MANUAL DIFF Direct Bilirubin 0.00 Eosinophils # 0.6 H Eosinophils % 4.0 Globulin 3.60 H Glucose Level 147 Hematocrit 23.4 L Hemoglobin 7.6 L INR International Normalized Ratio 1.41 Indirect Bilirubin 0.2 Lymphocytes # 1.6 Lymphocytes % 11.0 L Mean Corpuscular Hemoglobin 26.2 L Mean Corpuscular Hemoglobin Concent 32.4 Mean Corpuscular Volume 80.8 L Mean Platelet Volume 8.9 Monocytes # 1.0 H Monocytes % 7.0 Neutrophils # 11.0 H Neutrophils % 78.0 H Nucleated Red Blood Cells # Nucleated Red Blood Cells % Platelet Count 344 Potassium Level 3.6 Prothrombin Time 17.3 H Prothrombin Time Ratio 1.4 Red Blood Count 2.89 L Red Cell Distribution Width 16.9 H Sodium Level 144 Total Bilirubin 0.2 Total Protein 6.7 White Blood Count 14.1 H Test 03/11/16 07:00 03/11/16 11:53 Arterial Blood HCO3 27.3 H Arterial Blood Base Excess 3.1 H Arterial Blood Oxygen Saturation 98.2 H Jovanny Test ACCEPTAB Arterial Blood Gas Puncture Site Right Radial Arterial Blood Carboxyhemoglobin 0.3 Arterial Blood Date Drawn 03/11/2016 7:10:34 AM Arterial Blood Methemoglobin 0.4 Arterial Blood pCO2 (Temp correct) 39.9 Arterial Blood pH (Temp corrected) 7.453 H Arterial Blood pO2 (Temp corrected) 125.2 H Blood Gas A-a O2 Differential 475.6 H Blood Gas Actual Respiration Rate 25 Blood Gas Low PEEP Setting 5.0 Blood Gas Modality VENT - AC Blood Gas Notified Time 03/11/2016 7:20:40 AM Blood Gas Notified Whom UP Blood Gas Respiration Rate 20.0 Blood Gas Specimen Source Blood arterial Blood Gas Temperature 37.0 Blood Gas Tidal Volume 550.0 FiO2 90.0 Oxyhemoglobin Percent 97.5 Total Hemoglobin 8.7 L Bedside Glucose 165 Medications Current Medications Ondansetron HCl (Zofran Inj) 4 mg Q6H PRN IV NAUSEA AND/OR VOMITING; Start 02/18/16 at 09:30 Acetaminophen (Tylenol Supp) 650 mg Q4H PRN [place] PAIN LEVEL 1-3 OR FEVER Last administered on 02/24/16at 14:32; Admin Dose 650 MG; Start 02/18/16 at 09:30 Morphine Sulfate (morphine) 2 mg Q4H PRN IV PAIN LEVEL 7-10 Last administered on 03/11/16at 08:06; Admin Dose 2 MG; Start 02/18/16 at 09:30 Bisacodyl (Dulcolax Supp) 10 mg DAILY PRN [place] CONSTIPATION; Start 02/18/16 at 09 :30 Pantoprazole (Protonix Iv) 40 mg DAILY@06 IV Last administered on 03/11/16at 05 :58; Admin Dose 40 MG; Start 02/19/16 at 06:00 Metoprolol Tartrate (Lopressor) 5 mg Q4H PRN IV HR>55 Hold SBP<100 Last administered on 03/09/16at 12:08; Admin Dose 5 MG; Start 02/21/16 at 11:30 IV Flush (NS 10 ml) 10 ml PRN PRN IV IV PROTOCOL; Start 02/21/16 at 18:30 Ferrous Sulfate (Feosol Liquid Cup) 300 mg BID GTB Last administered on at 08:08; Admin Dose 300 MG; Start 02/22/16 at 10:00 Lorazepam (Ativan) 1 mg Q1H PRN IV ANXIETY Last administered on 03/11/16at 11: 56; Admin Dose 1 MG; Start 02/23/16 at 11:30 Miscellaneous Information 1 ea NOTE XX ; Start 02/23/16 at 23:15 Glucose (Glutose) 22.5 gm Q15M PRN PO DECREASED GLUCOSE; Start 02/23/16 at 23: 15 Dextrose (D50w Syringe) 25 ml Q15M PRN IV DECREASED GLUCOSE; Start 02/23/16 at 23:15 Dextrose (D50w Syringe) 50 ml Q15M PRN IV DECREASED GLUCOSE; Start 02/23/16 at 23:15 Glucagon (Glucagen) 1 mg Q15M PRN IM DECREASED GLUCOSE; Start 02/23/16 at 23:15 Glucose (Glutose) 15 gm Q15M PRN BUCCAL DECREASED GLUCOSE; Start 02/23/16 at 23 :15 Metoclopramide HCl (Reglan) 10 mg Q6 IV Last administered on 03/11/16at 11:44; Admin Dose 10 MG; Start 03/04/16 at 06:00 Acetaminophen (Tylenol Tab) 650 mg Q6H PRN NGT PAIN AND OR ELEVATED TEMP Last administered on 03/10/16at 05:58; Admin Dose 650 MG; Start 03/06/16 at 11:30 Glucose (Glutose) 15 gm Q15M PRN NGT DECREASED GLUCOSE; Start 03/06/16 at 08: 45 Hydralazine HCl (Apresoline) 100 mg Q8 NGT Last administered on 03/11/16at 05: 59; Admin Dose 100 MG; Start 03/06/16 at 14:00 Metoprolol Tartrate (Lopressor) 150 mg Q8 NGT Last administered on 03/11/16at 06:00; Admin Dose 150 MG; Start 03/06/16 at 14:00 Hydralazine HCl 10 mg 10 mg Q4H PRN IV ELEVATED SYSTOLIC BP Last administered on 03/09/16at 10:52; Admin Dose 10 MG; Start 03/06/16 at 16:00 Dextrose (D5W) 1,000 ml @ 80 mls/hr [id number] IV Last administered on at 09:00; Admin Dose 80 MLS/HR; Start 03/08/16 at 11:30 Diltiazem HCl (Cardizem) 60 mg Q8 PO Last administered on 03/11/16 05:59; Admin Dose 60 MG; Start 03/09/16 at 14:00 Amlodipine Besylate (Norvasc) 10 mg DAILY PO Last administered on 03/11/16at 08 :09; Admin Dose 10 MG; Start 03/09/16 at 17:00 Minoxidil 10 mg 10 mg BID NGT Last administered on 03/11/16at 08:30; Admin Dose 10 MG; Start 03/09/16 at 21:00 Cefepime HCl 50 ml @ 100 mls/hr Q12 IVPB Last administered on 03/11/16at 08:08 ; Admin Dose 100 MLS/HR; Start 03/09/16 at 21:00 Vancomycin HCl 2 gm/Sodium Chloride 500 ml @ 125 mls/hr Q24H IVPB Last administered on 03/10/16at 21:58; Admin Dose 125 MLS/HR; Start 03/09/16 at 22: 00 Propofol (Diprivan) 100 ml @ 3.189 mls/ hr Q12H IV Last administered on at 11:05; Admin Dose 31.89 MLS/HR; Start 03/10/16 at 00:00 Insulin Aspart NOVOLOG *MODERATE* ALGORI... Q6 SC Last administered on at 11:59; Admin Dose 2 UNIT; Start 03/10/16 at 06:00 Levetiracetam/ Dextrose (Keppra Iv/D5W) 115 ml @ 460 mls/hr Q12 IVPB ; Start 03/11/16 at 21:00 Assessment/Plan Chief Complaint/Hosp Course 45 y/o M admitted for management of hypertensive emergency, with aortic dissection, FARRUKH, aspiration pneumonia and respiratory failure, briefly extubated requiring re-intubation. Tremors were noted over the weekend, dose of Keppra was increased to [address] on 02/22 unrevealing shows chronic microvascular changes, no acute ischemic changes/ hemorrhage. Repeat Head CT: no ICH, mass effect or midline shift, increase in ventricle size likely related to improving cerebral edema. Recommendations: -continue frequent neuro exams off sedation -continue on Keppra 1500 mg BID -when patient is more stable please obtain MRI Brain without contrast, MRA Head/ Neck without contrast to evaluate for areas of ischemia/ structural abnormalities -i will continue to follow Problems: JAIRON MCNAIR MD Mar 11, 2016 13:31
--- NOTE | 2016-03-11 15:38 | CONS ---
Date/Time of Note Date/Time of Note DATE: 03/11/16 TIME: 15:37 Assessment/Plan Assessment/Plan Chief Complaint/Hosp Course Assessment/Plan 1. Acute kidney injury, likely secondary to acute tubular necrosis from contrast-induced nephropathy and also secondary to ischemic acute tubular necrosis from aortic dissection. 2. A type B [place] aortic dissection. 3. Hypertension 4. acute resp failiure intubated on ventilator 5 edema 6 hypernatremia BETTER plan F/U LYTES Problems: Consultation Date/Type/Reason Admit Date/Time Feb 18, 2016 at 09:14 Initial Consult Date 02/26/16 Type of Consultation: RENAL Referring Provider: MOSES HARRIS MD Exam/Review of Systems Vital Signs Vitals Vital Signs Date Time Temp Pulse Resp B/P Pulse Ox O2 Delivery O2 Flow Rate FiO2 03/11/16 13:00 85 18 136/66 97 Mechanical Ventilator 03/11/16 12:00 99.0 03/11/16 10:00 75 03/09/16 23:00 15.0 Intake and Output 03/10/16 03/10/16 03/11/16 15:00 23:00 07:00 Intake Total 1793.12 ml 1561.56 ml 1682 ml Output Total 660 ml 700 ml 750 ml Balance 1133.12 ml 861.56 ml 932 ml Exam Respiratory: clear to auscultation Cardiovascular: regular rate and rhythm Gastrointestinal: bowel sounds (+), soft Extremities: edema (++) Results Result Diagram: 03/11/16 0540 03/11/16 0540 Results 24 hrs Laboratory Tests Test 03/10/16 18:26 03/11/16 00:27 03/11/16 05:40 03/11/16 05:55 Bedside Glucose 146 147 152 Activated Partial Thromboplast Time 90.4 *H Alanine Aminotransferase (ALT/SGPT) 37 Albumin 3.1 L Albumin/Globulin Ratio 0.86 Alkaline Phosphatase 115 Anion Gap 15 Aspartate Amino Transf (AST/SGOT) 22 Basophils # Basophils % Blood Morphology Comment Blood Urea Nitrogen 38 H Calcium Level 8.7 Carbon Dioxide Level 30 Chloride Level 103 Creatinine 1.89 H Differential Comment MANUAL DIFF Direct Bilirubin 0.00 Eosinophils # 0.6 H Eosinophils % 4.0 Globulin 3.60 H Glucose Level 147 Hematocrit 23.4 L Hemoglobin 7.6 L INR International Normalized Ratio 1.41 Indirect Bilirubin 0.2 Lymphocytes # 1.6 Lymphocytes % 11.0 L Mean Corpuscular Hemoglobin 26.2 L Mean Corpuscular Hemoglobin Concent 32.4 Mean Corpuscular Volume 80.8 L Mean Platelet Volume 8.9 Monocytes # 1.0 H Monocytes % 7.0 Neutrophils # 11.0 H Neutrophils % 78.0 H Nucleated Red Blood Cells # Nucleated Red Blood Cells % Platelet Count 344 Potassium Level 3.6 Prothrombin Time 17.3 H Prothrombin Time Ratio 1.4 Red Blood Count 2.89 L Red Cell Distribution Width 16.9 H Sodium Level 144 Total Bilirubin 0.2 Total Protein 6.7 White Blood Count 14.1 H Test 03/11/16 07:00 03/11/16 11:53 Arterial Blood HCO3 27.3 H Arterial Blood Base Excess 3.1 H Arterial Blood Oxygen Saturation 98.2 H Jovanny Test ACCEPTAB Arterial Blood Gas Puncture Site Right Radial Arterial Blood Carboxyhemoglobin 0.3 Arterial Blood Date Drawn 03/11/2016 7:10:34 AM Arterial Blood Methemoglobin 0.4 Arterial Blood pCO2 (Temp correct) 39.9 Arterial Blood pH (Temp corrected) 7.453 H Arterial Blood pO2 (Temp corrected) 125.2 H Blood Gas A-a O2 Differential 475.6 H Blood Gas Actual Respiration Rate 25 Blood Gas Low PEEP Setting 5.0 Blood Gas Modality VENT - AC Blood Gas Notified Time 03/11/2016 7:20:40 AM Blood Gas Notified Whom UP Blood Gas Respiration Rate 20.0 Blood Gas Specimen Source Blood arterial Blood Gas Temperature 37.0 Blood Gas Tidal Volume 550.0 FiO2 90.0 Oxyhemoglobin Percent 97.5 Total Hemoglobin 8.7 L Bedside Glucose 165 Medications Medications Current Medications Ondansetron HCl (Zofran Inj) 4 mg Q6H PRN IV NAUSEA AND/OR VOMITING; Start 02/18/16 at 09:30 Acetaminophen (Tylenol Supp) 650 mg Q4H PRN [place] PAIN LEVEL 1-3 OR FEVER Last administered on 02/24/16at 14:32; Admin Dose 650 MG; Start 02/18/16 at 09:30 Morphine Sulfate (morphine) 2 mg Q4H PRN IV PAIN LEVEL 7-10 Last administered on 03/11/16at 08:06; Admin Dose 2 MG; Start 02/18/16 at 09:30 Bisacodyl (Dulcolax Supp) 10 mg DAILY PRN [place] CONSTIPATION; Start 02/18/16 at 09 :30 Pantoprazole (Protonix Iv) 40 mg DAILY@06 IV Last administered on 03/11/16at 05 :58; Admin Dose 40 MG; Start 02/19/16 at 06:00 Metoprolol Tartrate (Lopressor) 5 mg Q4H PRN IV HR>55 Hold SBP<100 Last administered on 03/09/16at 12:08; Admin Dose 5 MG; Start 02/21/16 at 11:30 IV Flush (NS 10 ml) 10 ml PRN PRN IV IV PROTOCOL; Start 02/21/16 at 18:30 Ferrous Sulfate (Feosol Liquid Cup) 300 mg BID GTB Last administered on at 08:08; Admin Dose 300 MG; Start 02/22/16 at 10:00 Lorazepam (Ativan) 1 mg Q1H PRN IV ANXIETY Last administered on 03/11/16at 14: 17; Admin Dose 1 MG; Start 02/23/16 at 11:30 Miscellaneous Information 1 ea NOTE XX ; Start 02/23/16 at 23:15 Glucose (Glutose) 22.5 gm Q15M PRN PO DECREASED GLUCOSE; Start 02/23/16 at 23: 15 Dextrose (D50w Syringe) 25 ml Q15M PRN IV DECREASED GLUCOSE; Start 02/23/16 at 23:15 Dextrose (D50w Syringe) 50 ml Q15M PRN IV DECREASED GLUCOSE; Start 02/23/16 at 23:15 Glucagon (Glucagen) 1 mg Q15M PRN IM DECREASED GLUCOSE; Start 02/23/16 at 23:15 Glucose (Glutose) 15 gm Q15M PRN BUCCAL DECREASED GLUCOSE; Start 02/23/16 at 23 :15 Metoclopramide HCl (Reglan) 10 mg Q6 IV Last administered on 03/11/16at 11:44; Admin Dose 10 MG; Start 03/04/16 at 06:00 Acetaminophen (Tylenol Tab) 650 mg Q6H PRN NGT PAIN AND OR ELEVATED TEMP Last administered on 03/10/16at 05:58; Admin Dose 650 MG; Start 03/06/16 at 11:30 Glucose (Glutose) 15 gm Q15M PRN NGT DECREASED GLUCOSE; Start 03/06/16 at 08: 45 Hydralazine HCl (Apresoline) 100 mg Q8 NGT Last administered on 03/11/16 14: 07; Admin Dose 100 MG; Start 03/06/16 at 14:00 Metoprolol Tartrate (Lopressor) 150 mg Q8 NGT Last administered on 03/11/16 14:08; Admin Dose 150 MG; Start 03/06/16 at 14:00 Hydralazine HCl 10 mg 10 mg Q4H PRN IV ELEVATED SYSTOLIC BP Last administered on 03/09/16 10:52; Admin Dose 10 MG; Start 03/06/16 at 16:00 Dextrose (D5W) 1,000 ml @ 80 mls/hr [id number] IV Last administered on 09:00; Admin Dose 80 MLS/HR; Start 03/08/16 at 11:30 Diltiazem HCl (Cardizem) 60 mg Q8 PO Last administered on 03/11/16 14:07; Admin Dose 60 MG; Start 03/09/16 at 14:00 Amlodipine Besylate (Norvasc) 10 mg DAILY PO Last administered on 03/11/16 08 :09; Admin Dose 10 MG; Start 03/09/16 at 17:00 Minoxidil 10 mg 10 mg BID NGT Last administered on 03/11/16 08:30; Admin Dose 10 MG; Start 03/09/16 at 21:00 Cefepime HCl 50 ml @ 100 mls/hr Q12 IVPB Last administered on 03/11/16 08:08 ; Admin Dose 100 MLS/HR; Start 03/09/16 at 21:00 Vancomycin HCl 2 gm/Sodium Chloride 500 ml @ 125 mls/hr Q24H IVPB Last administered on 03/10/16 21:58; Admin Dose 125 MLS/HR; Start 03/09/16 at 22: 00 Propofol (Diprivan) 100 ml @ 3.189 mls/ hr Q12H IV Last administered on 14:17; Admin Dose 31.89 MLS/HR; Start 03/10/16 at 00:00 Insulin Aspart NOVOLOG *MODERATE* ALGORI... Q6 SC Last administered on 11:59; Admin Dose 2 UNIT; Start 03/10/16 at 06:00 Levetiracetam/ Dextrose (Keppra Iv/D5W) 115 ml @ 460 mls/hr Q12 IVPB ; Start 03/11/16 at 21:00 SASHA OWEN MD Mar 11, 2016 15:38
--- NOTE | 2016-03-11 16:53 | CONS ---
Date/Time of Note Date/Time of Note DATE: 03/11/16 TIME: 16:52 Assessment/Plan Assessment/Plan Additional Assessment/Plan Hypertensive Urgency, Diastolic heart failure, Type B Aortic dissection, abnormal electrocardiogram, Pericardial effusion, Pulmonary embolism metabolic encephalopathy, Pneumonia, Renal insufficiency, Anemia Hemodynamically stable Continue Ventilatory support Continue Heparin drip Continue Norvasc and Minoxidil Continue Metoprolol, Cardizem and Hydralazine Continue Antibiotics Continue GI and DVT Prophylaxis Continue Pulmonary Toiletry Consultation Date/Type/Reason Admit Date/Time Feb 18, 2016 at 09:14 Initial Consult Date 02/26/16 Type of Consultation: RENAL Referring Provider: MOSES HARRIS MD Exam/Review of Systems Vital Signs Vitals Vital Signs Date Time Temp Pulse Resp B/P Pulse Ox O2 Delivery O2 Flow Rate FiO2 03/11/16 16:00 100.5 81 30 153/76 92 Mechanical Ventilator 03/11/16 16:00 70 03/09/16 23:00 15.0 Intake and Output 03/10/16 03/10/16 03/11/16 15:00 23:00 07:00 Intake Total 1793.12 ml 1561.56 ml 1682 ml Output Total 660 ml 700 ml 750 ml Balance 1133.12 ml 861.56 ml 932 ml Exam Intubated and sedated Head: atraumatic, normocephalic Respiratory: other (Mechanical breath sounds heard bilaterally) Cardiovascular: regular rate and rhythm Gastrointestinal: nl liver, spleen, non-tender, soft Extremities: normal pulses Results Result Diagram: 03/11/16 0540 03/11/16 0540 Results 24 hrs Laboratory Tests Test 03/10/16 18:26 03/11/16 00:27 03/11/16 05:40 03/11/16 05:55 Bedside Glucose 146 147 152 Activated Partial Thromboplast Time 90.4 *H Alanine Aminotransferase (ALT/SGPT) 37 Albumin 3.1 L Albumin/Globulin Ratio 0.86 Alkaline Phosphatase 115 Anion Gap 15 Aspartate Amino Transf (AST/SGOT) 22 Basophils # Basophils % Blood Morphology Comment Blood Urea Nitrogen 38 H Calcium Level 8.7 Carbon Dioxide Level 30 Chloride Level 103 Creatinine 1.89 H Differential Comment MANUAL DIFF Direct Bilirubin 0.00 Eosinophils # 0.6 H Eosinophils % 4.0 Globulin 3.60 H Glucose Level 147 Hematocrit 23.4 L Hemoglobin 7.6 L INR International Normalized Ratio 1.41 Indirect Bilirubin 0.2 Lymphocytes # 1.6 Lymphocytes % 11.0 L Mean Corpuscular Hemoglobin 26.2 L Mean Corpuscular Hemoglobin Concent 32.4 Mean Corpuscular Volume 80.8 L Mean Platelet Volume 8.9 Monocytes # 1.0 H Monocytes % 7.0 Neutrophils # 11.0 H Neutrophils % 78.0 H Nucleated Red Blood Cells # Nucleated Red Blood Cells % Platelet Count 344 Potassium Level 3.6 Prothrombin Time 17.3 H Prothrombin Time Ratio 1.4 Red Blood Count 2.89 L Red Cell Distribution Width 16.9 H Sodium Level 144 Total Bilirubin 0.2 Total Protein 6.7 White Blood Count 14.1 H Test 03/11/16 07:00 03/11/16 11:53 Arterial Blood HCO3 27.3 H Arterial Blood Base Excess 3.1 H Arterial Blood Oxygen Saturation 98.2 H Jovanny Test ACCEPTAB Arterial Blood Gas Puncture Site Right Radial Arterial Blood Carboxyhemoglobin 0.3 Arterial Blood Date Drawn 03/11/2016 7:10:34 AM Arterial Blood Methemoglobin 0.4 Arterial Blood pCO2 (Temp correct) 39.9 Arterial Blood pH (Temp corrected) 7.453 H Arterial Blood pO2 (Temp corrected) 125.2 H Blood Gas A-a O2 Differential 475.6 H Blood Gas Actual Respiration Rate 25 Blood Gas Low PEEP Setting 5.0 Blood Gas Modality VENT - AC Blood Gas Notified Time 03/11/2016 7:20:40 AM Blood Gas Notified Whom UP Blood Gas Respiration Rate 20.0 Blood Gas Specimen Source Blood arterial Blood Gas Temperature 37.0 Blood Gas Tidal Volume 550.0 FiO2 90.0 Oxyhemoglobin Percent 97.5 Total Hemoglobin 8.7 L Bedside Glucose 165 Medications Medications Current Medications Ondansetron HCl (Zofran Inj) 4 mg Q6H PRN IV NAUSEA AND/OR VOMITING; Start 02/18/16 at 09:30 Acetaminophen (Tylenol Supp) 650 mg Q4H PRN [place] PAIN LEVEL 1-3 OR FEVER Last administered on 02/24/16at 14:32; Admin Dose 650 MG; Start 02/18/16 at 09:30 Morphine Sulfate (morphine) 2 mg Q4H PRN IV PAIN LEVEL 7-10 Last administered on 03/11/16at 16:13; Admin Dose 2 MG; Start 02/18/16 at 09:30 Bisacodyl (Dulcolax Supp) 10 mg DAILY PRN [place] CONSTIPATION; Start 02/18/16 at 09 :30 Pantoprazole (Protonix Iv) 40 mg DAILY@06 IV Last administered on 03/11/16at 05 :58; Admin Dose 40 MG; Start 02/19/16 at 06:00 Metoprolol Tartrate (Lopressor) 5 mg Q4H PRN IV HR>55 Hold SBP<100 Last administered on 03/09/16at 12:08; Admin Dose 5 MG; Start 02/21/16 at 11:30 IV Flush (NS 10 ml) 10 ml PRN PRN IV IV PROTOCOL; Start 02/21/16 at 18:30 Ferrous Sulfate (Feosol Liquid Cup) 300 mg BID GTB Last administered on at 08:08; Admin Dose 300 MG; Start 02/22/16 at 10:00 Lorazepam (Ativan) 1 mg Q1H PRN IV ANXIETY Last administered on 03/11/16at 16: 13; Admin Dose 1 MG; Start 02/23/16 at 11:30 Miscellaneous Information 1 ea NOTE XX ; Start 02/23/16 at 23:15 Glucose (Glutose) 22.5 gm Q15M PRN PO DECREASED GLUCOSE; Start 02/23/16 at 23: 15 Dextrose (D50w Syringe) 25 ml Q15M PRN IV DECREASED GLUCOSE; Start 02/23/16 at 23:15 Dextrose (D50w Syringe) 50 ml Q15M PRN IV DECREASED GLUCOSE; Start 02/23/16 at 23:15 Glucagon (Glucagen) 1 mg Q15M PRN IM DECREASED GLUCOSE; Start 02/23/16 at 23:15 Glucose (Glutose) 15 gm Q15M PRN BUCCAL DECREASED GLUCOSE; Start 02/23/16 at 23 :15 Metoclopramide HCl (Reglan) 10 mg Q6 IV Last administered on 03/11/16at 11:44; Admin Dose 10 MG; Start 03/04/16 at 06:00 Acetaminophen (Tylenol Tab) 650 mg Q6H PRN NGT PAIN AND OR ELEVATED TEMP Last administered on 03/10/16at 05:58; Admin Dose 650 MG; Start 03/06/16 at 11:30 Glucose (Glutose) 15 gm Q15M PRN NGT DECREASED GLUCOSE; Start 03/06/16 at 08: 45 Hydralazine HCl (Apresoline) 100 mg Q8 NGT Last administered on 03/11/16 14: 07; Admin Dose 100 MG; Start 03/06/16 at 14:00 Metoprolol Tartrate (Lopressor) 150 mg Q8 NGT Last administered on 03/11/16 14:08; Admin Dose 150 MG; Start 03/06/16 at 14:00 Hydralazine HCl 10 mg 10 mg Q4H PRN IV ELEVATED SYSTOLIC BP Last administered on 03/09/16 10:52; Admin Dose 10 MG; Start 03/06/16 at 16:00 Dextrose (D5W) 1,000 ml @ 80 mls/hr [id number] IV Last administered on 09:00; Admin Dose 80 MLS/HR; Start 03/08/16 at 11:30 Diltiazem HCl (Cardizem) 60 mg Q8 PO Last administered on 03/11/16 14:07; Admin Dose 60 MG; Start 03/09/16 at 14:00 Amlodipine Besylate (Norvasc) 10 mg DAILY PO Last administered on 03/11/16 08 :09; Admin Dose 10 MG; Start 03/09/16 at 17:00 Minoxidil 10 mg 10 mg BID NGT Last administered on 03/11/16 08:30; Admin Dose 10 MG; Start 03/09/16 at 21:00 Cefepime HCl 50 ml @ 100 mls/hr Q12 IVPB Last administered on 03/11/16 08:08 ; Admin Dose 100 MLS/HR; Start 03/09/16 at 21:00 Vancomycin HCl 2 gm/Sodium Chloride 500 ml @ 125 mls/hr Q24H IVPB Last administered on 03/10/16 21:58; Admin Dose 125 MLS/HR; Start 03/09/16 at 22: 00 Propofol (Diprivan) 100 ml @ 3.189 mls/ hr Q12H IV Last administered on 14:17; Admin Dose 31.89 MLS/HR; Start 03/10/16 at 00:00 Insulin Aspart NOVOLOG *MODERATE* ALGORI... Q6 SC Last administered on 11:59; Admin Dose 2 UNIT; Start 03/10/16 at 06:00 Levetiracetam/ Dextrose (Keppra Iv/D5W) 115 ml @ 460 mls/hr Q12 IVPB ; Start 03/11/16 at 21:00 ESTEFANIA ALLEN M.D. Mar 11, 2016 16:53
--- NOTE | 2016-03-11 17:23 | PN ---
DATE: INFECTIOUS DISEASE PROGRESS NOTE SUBJECTIVE: No acute events overnight. The patient remains intubated, sedated with low-grade fever s. T-max 100.6, T-current 99. The patient remains on heparin drip and sedation. Current vital sign s: Temperature 99, pulse 81, respirations 24, blood pressure 138/80, saturation 95 on vent. WBC 14. 1, H and H 7.6 and 23.4. Platelets 344. Neutrophils 78, no bands. BUN 38, creatinine 189. Lactic a mary on March 09 was 0.8. MICROBIOLOGY: Urine and blood cultures sent on March 08 and negative. Sputum culture pend ing. DIAGNOSTICS: Chest x-ray this morning revealed no significant interval change. INDWELLINGS: Endotracheal tube, NG tube, Smalls catheter, PICC line placed on 02/21/2016. ANTIMICROBIALS: 1. Vancomycin. 2. Cefepime. PHYSICAL EXAMINATION: GENERAL: This is an obese, well-developed, middle aged -[place] male who was lying comforta katy in bed. HEENT: Head atraumatic, normocephalic. Sclera anicteric. Buccal mucosa dry. The patient had some wh ite thrush on his tongue. NECK: Obese. CHEST: Rise symmetrical. Breath sounds diminished to bases. HEART: S1, S2. ABDOMEN: Obese, soft. Bowel tones hyperactive. EXTREMITIES: With bilateral edema. ASSESSMENT: 1. Sepsis with fevers and leukocytosis, so far cultures have been negative. 2. Probable aspiration pneumonia, status post recurrent intubation. 3. Acute encephalopathy. 4. Accelerated hypertension. 5. Seizure disorder. 6. aortic dissection. 7. Pulmonary emboli, remains on heparin drip. PLAN: The patient remains unchanged. Covered with broad spectrum antibiotics. We are going to add Diflucan for oral thrush and oral nystatin. Await for sputum cultures, await for final blood and uri ne cultures and follow recommendations of specialists. Dictated By: HUSAM SANFORD FORMATION FRACTURING OPERATOR for YESIKA LOPEZ/EFRAIN Conf#: [id number] DID#: [id number]
--- NOTE | 2016-03-11 17:35 | PN ---
Date/Time of Note Date/Time of Note DATE: 03/11/16 TIME: 17:35 Assessment/Plan Lines/Catheters IV Catheter Type (from Nrsg): PICC Line Smalls in Place (from Nrsg): Yes Assessment/Plan Chief Complaint/Hosp Course IMPRESSION: Type B aortic dissection. The patient's blood pressure more controlled RECOMMENDATIONS: At this time, we would continue blood pressure management, monitor vital signs and laboratory values in an intensive care unit setting. Vent support per pulm medicine No plan for surgery. Abx Repeat CTA Dissection involving the thoracic aorta arising distal to the origin of the left subclavian artery and extending into the abdominal aorta. The distal extent was not included on the study. Flow within both true and false lumen to the level of the celiac artery. Would continue BP control , Vent support Type B aortic dissection PE, anticoagulation follow neurology recc. no plan for surgery at this time I discussed with the patient and Dr. Mccabe and staff Problems: Subjective 24 Hr Interval Summary Constitutional: improved Pain Control: mild Exam/Review of Systems Vital Signs Vitals Vital Signs Date Time Temp Pulse Resp B/P Pulse Ox O2 Delivery O2 Flow Rate FiO2 03/11/16 16:00 100.5 81 30 153/76 92 Mechanical Ventilator 03/11/16 16:00 70 03/09/16 23:00 15.0 Intake and Output 03/10/16 03/10/16 03/11/16 14:59 22:59 06:59 Intake Total 1843.12 ml 1561.45 ml 1662 ml Output Total 590 ml 725 ml 775 ml Balance 1253.12 ml 836.45 ml 887 ml Exam ENMT: mucosa pink and moist, nl external ears & nose, nl lips & teeth, nl nasal mucosa & septum Neck: non-tender, supple Respiratory: clear to auscultation, normal air movement Cardiovascular: nl pulses, regular rate and rhythm Results Result Diagram: 03/11/16 0540 03/11/16 0540 KAYLYN RADFORD MD Mar 11, 2016 17:35
[2016-03-11] MEDS: LEVETIRACETAM IV 1,500 MG in DEXTROSE 5% 100 ML IVPB SCH (20:36)
[2016-03-11] MEDS: ACETAMINOPHEN 325 MG TAB NGT PRN (20:36)
[2016-03-11] MEDS: VANCOMYCIN 2 GM in SOD CHLORIDE 0.9% 500 ML IVPB SCH (22:38)
[2016-03-12] VITALS (55 sets, daily range): BP systolic 127–196; BP diastolic 66–109; PULSE 70–87; RESP 6–38
[2016-03-12] MEDS: PROPOFOL 100 ML IV SCH ×8 (00:21→20:44)
[2016-03-12] MEDS: METOCLOPRAMIDE 10 MG INJ IV SCH ×5 (00:21→23:47)
[2016-03-12] MEDS: INSULIN ASPART [NOVOLOG] 3 ML PEN SC SCH ×5 (00:22→23:53)
[2016-03-12] MEDS: ALBUTEROL HFA 8 GM INHALER INH SCH ×4 (01:38→19:41)
[2016-03-12] MEDS: DEXTROSE 5% 1,000 ML IV SCH ×3 (03:00→15:30)
[2016-03-12 05:20] LABS: BASOPHIL # 0.1 10^3/ul (0.0-0.1); BASOPHILS % 0.3 % (0.0-2.0); EOSINOPHILS # 0.6 10^3/ul (0.0-0.5); EOSINOPHILS % 3.3 % (0.0-7.0); LYMPHOCYTES % 5.5 % (15.0-51.0); MEAN PLATELET VOLUME 10.4 fl (7.4-10.4); MONOCYTE # 0.8 10^3/ul (0.3-0.9); MONOCYTES % 4.6 % (0.0-11.0); NEUTROPHIL # 15.2 10^3/ul (1.6-7.5); NEUTROPHILS % 86.3 % (39.0-77.0); UNCORRECTED WBC 17.6 10^3/ul (4.8-10.8); WHITE BLOOD COUNT 17.6 10^3/ul (4.8-10.8)
[2016-03-12 05:23] LABS: INR 1.4; PROTIME 17.2 Sec (12.2-14.2); PT RATIO 1.3
[2016-03-12 05:24] LABS: PARTIAL THROMBOPLASTIN TIME 66.7 Sec (25.0-35.0)
[2016-03-12 05:26] LABS: POTASSIUM 3.5 mmol/L (3.5-5.1)
[2016-03-12 05:29] LABS: CREATININE 1.78 mg/dl (0.61-1.24)
[2016-03-12 05:30] LABS: CALCIUM 8.6 mg/dl (8.4-10.2)
[2016-03-12 05:36] LABS: SUSPECT 1
[2016-03-12 05:37] LABS: CONDITION 1; LH ANALYZER COMMENTS 1
[2016-03-12] MEDS: PANTOPRAZOLE 40 MG INJ IV SCH (05:42)
[2016-03-12] MEDS: DILTIAZEM 60 MG TAB PO SCH (05:44)
[2016-03-12] MEDS: METOPROLOL 100 MG TAB NGT SCH ×3 (05:44→21:43)
[2016-03-12 05:50] LABS: MAGNESIUM 2.2 mg/dl (1.7-2.5)
[2016-03-12] MEDS: HEPARIN 25000 UNITS/250 ML 250 ML IV SCH ×4 (05:50→22:11)
[2016-03-12 06:36] LABS: HEMATOCRIT 23.9 % (42.0-52.0); HEMOGLOBIN 7.8 g/dl (14.0-18.0); MEAN CORPUSCULAR HEMOGLOBIN 26.4 pg (29.0-33.0); MEAN CORPUSCULAR HGB CONC 32.6 g/dl (32.0-37.0); MEAN CORPUSCULAR VOLUME 80.9 fl (82.0-101.0); PLATELET COUNT 313 10^3/UL (140-440); RED BLOOD COUNT 2.95 10^6/ul (4.70-6.10); RED CELL DISTRIBUTION WIDTH 17.5 % (11.5-14.5)
--- NOTE | 2016-03-12 07:03 | PN ---
Date/Time of Note Date/Time of Note DATE: 03/12/16 TIME: 07:01 Assessment/Plan VTE Prophylaxis VTE Prophylaxis Intervention: heparin (Therapeutic anticoagulation) Lines/Catheters IV Catheter Type (from [facility]): PICC Line Central line still needed: Yes Urinary Cath still in place: Yes Reason Cath still needed: terminal illness/intractable pain Assessment/Plan Chief Complaint/Hosp Course 1. Type B aortic dissection. Continue blood pressure control. Continue ICU monitoring. Status post evaluation by vascular surgery. No surgical intervention as of now. 2. Accelerated hypertension. Currently controlled. On antihypertensives. 3. Acute hypoxic respiratory failure. Etiology unclear. Most probably secondary to aspiration. Continue ventilator support as per pulmonary. The patient was extubated and then re-intubated. 4. Aspiration pneumonia. Continue antibiotics as per infectious diseases. 5. Acute kidney injury, most probably secondary to hemodynamics. Nephrology following. Use nephrotoxic drugs with caution. 6. Left cephalic vein thrombosis. On therapeutic anticoagulation. 7. Pulmonary embolism (02/29/2016). On therapeutic anticoagulation with heparin gtt. 8. Microcytic hypochromic anemia. Iron panel showing iron deficiency. Continue iron supplements. 9. Acute encephalopathy, most probably metabolic in origin. Electroencephalography showing background slowing suggesting bihemispheric subcortical dysfunction, possibly epileptiform activity. The patient is on anticonvulsants. Was evaluated by Neurology. 10. S/P sepsis secondary to gram-positive bacteremia. Latest blood cultures are negative. On antibiotics as per infectious diseases. 11. Fluids, electrolytes, and nutrition. Continue NG tube feedings. 12. Deep venous thrombosis prophylaxis. On therapeutic anticoagulation. 13. Gastrointestinal prophylaxis. Proton pump inhibitor. PLAN: Continue intensive care unit monitoring. Ventilator weaning as per pulmonary. Repeat H&H. Case discussed with Dr. Mosher. Critical care time 35 minutes. Problems: Subjective 24 Hr Interval Summary Free Text/Dictation Remains intubated. BP fairly well controlled. Exam/Review of Systems Vital Signs Vitals Vital Signs Date Time Temp Pulse Resp B/P Pulse Ox O2 Delivery O2 Flow Rate FiO2 03/12/16 06:06 84 31 95 90 03/12/16 06:00 168/85 Mechanical Ventilator 03/12/16 04:00 98.9 03/09/16 23:00 15.0 Intake and Output 03/11/16 03/11/16 03/12/16 15:00 23:00 07:00 Intake Total 1624 ml 1204 ml 1326 ml Output Total 1050 ml 630 ml 1080 ml Balance 574 ml 574 ml 246 ml Exam GENERAL: Obese male lying bed. Orally intubated. HEENT: Head normocephalic and atraumatic. Eyes: Anicteric sclerae. Conjunctivae clear. ENT: Nasal septum is midline. Oral mucosa is dry. NECK: Short and obese. Unable to visualize any neck veins. CARDIAC: Regular rate and rhythm. S1 and S2 heard. ABDOMEN: Protruded. Soft. Bowel sounds hypoactive in all 4 quadrants. GENITOURINARY: The patient has a Smalls catheter in place. EXTREMITIES: No cyanosis, no clubbing. Edema of bilateral lower extremities and bilateral upper extremities. Right upper extremity PICC line in place. Peripheral pulses palpable. NEUROLOGIC: The patient is sedated. Results Result Diagram: 03/11/16 0540 03/12/16 0430 Results 24 hrs Laboratory Tests Test 03/11/16 11:53 03/11/16 17:54 03/12/16 00:17 03/12/16 04:30 Bedside Glucose 165 163 151 Anion Gap 16 Blood Urea Nitrogen 35 H Calcium Level 8.6 Carbon Dioxide Level 28 Chloride Level 100 Creatinine 1.78 H Glucose Level 168 Magnesium Level 2.2 Phosphorus Level 6.0 H Potassium Level 3.5 Sodium Level 140 Test 03/12/16 04:50 03/12/16 05:47 Activated Partial Thromboplast Time 66.7 H INR International Normalized Ratio 1.40 Prothrombin Time 17.2 H Prothrombin Time Ratio 1.3 Bedside Glucose 201 Medications Medications Current Medications Ondansetron HCl (Zofran Inj) 4 mg Q6H PRN IV NAUSEA AND/OR VOMITING; Start 02/18/16 at 09:30 Acetaminophen (Tylenol Supp) 650 mg Q4H PRN IN PAIN LEVEL 1-3 OR FEVER Last administered on 02/24/16at 14:32; Admin Dose 650 MG; Start 02/18/16 at 09:30 Morphine Sulfate (morphine) 2 mg Q4H PRN IV PAIN LEVEL 7-10 Last administered on 03/11/16at 16:13; Admin Dose 2 MG; Start 02/18/16 at 09:30 Bisacodyl (Dulcolax Supp) 10 mg DAILY PRN IN CONSTIPATION; Start 12/4/16 at 09 :30 Pantoprazole (Protonix Iv) 40 mg DAILY@06 IV Last administered on 03/12/16at 05 :42; Admin Dose 40 MG; Start 02/19/16 at 06:00 Metoprolol Tartrate (Lopressor) 5 mg Q4H PRN IV HR>55 Hold SBP<100 Last administered on 03/09/16at 12:08; Admin Dose 5 MG; Start 02/21/16 at 11:30 IV Flush (NS 10 ml) 10 ml PRN PRN IV IV PROTOCOL; Start 02/21/16 at 18:30 Ferrous Sulfate (Feosol Liquid Cup) 300 mg BID GTB Last administered on at 20:36; Admin Dose 300 MG; Start 02/22/16 at 10:00 Lorazepam (Ativan) 1 mg Q1H PRN IV ANXIETY Last administered on 03/11/16at 16: 13; Admin Dose 1 MG; Start 02/23/16 at 11:30 Miscellaneous Information 1 ea NOTE XX ; Start 02/23/16 at 23:15 Glucose (Glutose) 22.5 gm Q15M PRN PO DECREASED GLUCOSE; Start 02/23/16 at 23: 15 Dextrose (D50w Syringe) 25 ml Q15M PRN IV DECREASED GLUCOSE; Start 02/23/16 at 23:15 Dextrose (D50w Syringe) 50 ml Q15M PRN IV DECREASED GLUCOSE; Start 02/23/16 at 23:15 Glucagon (Glucagen) 1 mg Q15M PRN IM DECREASED GLUCOSE; Start 02/23/16 at 23:15 Glucose (Glutose) 15 gm Q15M PRN BUCCAL DECREASED GLUCOSE; Start 02/23/16 at 23 :15 Metoclopramide HCl (Reglan) 10 mg Q6 IV Last administered on 03/12/16at 05:42; Admin Dose 10 MG; Start 03/04/16 at 06:00 Acetaminophen (Tylenol Tab) 650 mg Q6H PRN NGT PAIN AND OR ELEVATED TEMP Last administered on 03/11/16at 20:36; Admin Dose 650 MG; Start 03/06/16 at 11:30 Glucose (Glutose) 15 gm Q15M PRN NGT DECREASED GLUCOSE; Start 03/06/16 at 08: 45 Hydralazine HCl (Apresoline) 100 mg Q8 NGT Last administered on 03/12/16 05: 45; Admin Dose 100 MG; Start 03/06/16 at 14:00 Metoprolol Tartrate (Lopressor) 150 mg Q8 NGT Last administered on 03/12/16 05:44; Admin Dose 150 MG; Start 03/06/16 at 14:00 Hydralazine HCl 10 mg 10 mg Q4H PRN IV ELEVATED SYSTOLIC BP Last administered on 03/09/16 10:52; Admin Dose 10 MG; Start 03/06/16 at 16:00 Dextrose (D5W) 1,000 ml @ 80 mls/hr [id number] IV Last administered on 09:00; Admin Dose 80 MLS/HR; Start 03/08/16 at 11:30 Diltiazem HCl (Cardizem) 60 mg Q8 PO Last administered on 03/12/16 05:44; Admin Dose 60 MG; Start 03/09/16 at 14:00 Amlodipine Besylate (Norvasc) 10 mg DAILY PO Last administered on 03/11/16 08 :09; Admin Dose 10 MG; Start 03/09/16 at 17:00 Minoxidil 10 mg 10 mg BID NGT Last administered on 03/11/16 20:37; Admin Dose 10 MG; Start 03/09/16 at 21:00 Cefepime HCl 50 ml @ 100 mls/hr Q12 IVPB Last administered on 03/11/16 20:36 ; Admin Dose 100 MLS/HR; Start 03/09/16 at 21:00 Vancomycin HCl 2 gm/Sodium Chloride 500 ml @ 125 mls/hr Q24H IVPB Last administered on 03/11/16 22:38; Admin Dose 125 MLS/HR; Start 03/09/16 at 22: 00 Propofol (Diprivan) 100 ml @ 3.189 mls/ hr Q12H IV Last administered on 05:42; Admin Dose 31.89 MLS/HR; Start 03/10/16 at 00:00 Insulin Aspart NOVOLOG *MODERATE* ALGORI... Q6 SC Last administered on 05:49; Admin Dose 4 UNIT; Start 03/10/16 at 06:00 Levetiracetam/ Dextrose (Keppra Iv/D5W) 115 ml @ 460 mls/hr Q12 IVPB Last administered on 03/11/16at 20:36; Admin Dose 460 MLS/HR; Start 03/11/16 at 21: 00 KEITH CRAIG NP Mar 12, 2016 07:03
[2016-03-12] MEDS: FERROUS SULFATE 60 MG/ML 5ML CUP GTB SCH ×2 (08:14→21:38)
[2016-03-12] MEDS: LEVETIRACETAM IV 1,500 MG in DEXTROSE 5% 100 ML IVPB SCH ×2 (08:14→21:38)
[2016-03-12] MEDS: AMLODIPINE 10 MG TAB PO SCH (08:15)
[2016-03-12] MEDS: MINOXIDIL 10 MG TAB NGT SCH ×2 (08:16→21:40)
[2016-03-12] MEDS: CEFEPIME 1GM/50 ML (PMX) 50 ML IVPB SCH (08:45)
[2016-03-12] MEDS: IPRATROPIUM (HFA) 12.9 GM INHALER INH SCH ×3 (09:03→19:41)
[2016-03-12 09:12] LABS: HEMATOCRIT 23.6 % (42.0-52.0); HEMOGLOBIN 7.8 g/dl (14.0-18.0)
--- NOTE | 2016-03-12 12:14 | CONS ---
Date/Time of Note Date/Time of Note DATE: 03/12/16 TIME: 12:09 Assessment/Plan Assessment/Plan Chief Complaint/Hosp Course Imp: 1.HTN emergency-NL EF by echo this admit-under reasonable control on PO medications only. Off all drips but still having increased uncontrolled BP when agitated/stimulated or on sedation vacation 2.Aortic dissection-type B again demonstrated by Chest CT 02/29/16 3.abnl ecg-lateral TWI-negative troponin x 3 since admit 4.anxiety 5.ARF 6. Pericardial effusion by echo-small with NL EF 7.Encephalopathic 8.Pulmonary embolism 9.Tachycardia-S tach-only when on sedation vacation 10.CHF-diastolic acute 11.Resp [id number]-hdfsrufeb 12.Seizures-on keppra Recc: -Tele in ICU -Follow volume status closely -Wean vent as tolerated -serial ecg's -Continue PO BB/CCB/minoxidil/hydralazine/diltiazem for now -ongoing surgical follow-up -f/u MS closely -Lasix diuresis -Continue heparin for now for PE -Continue keppra for seizures Problems: Consultation Date/Type/Reason Admit Date/Time Feb 18, 2016 at 09:14 Initial Consult Date 02/19/2016 Type of Consultation: Cardiology Reason for Consultation HTN/dissection Referring Provider: MOSES HARRIS MD Exam/Review of Systems Vital Signs Vitals Vital Signs Date Time Temp Pulse Resp B/P Pulse Ox O2 Delivery O2 Flow Rate FiO2 03/12/16 12:00 84 33 141/79 99 Mechanical Ventilator 03/12/16 07:54 90 03/12/16 07:00 99.4 03/09/16 23:00 15.0 Intake and Output 03/11/16 03/11/16 03/12/16 15:00 23:00 07:00 Intake Total 1624 ml 1204 ml 1326 ml Output Total 1050 ml 630 ml 1190 ml Balance 574 ml 574 ml 136 ml Exam Review of Systems: CONSTITUTIONAL: No fevers, chills. PULMONARY: intubated CARDIOVASCULAR: No chest pain/palpitations GASTROINTESTINAL: No nausea/vomiting. GENITOURINARY: No hematuria/dysuria. MUSCULOSKELETAL: No myagias/arthalgias. PSYCHIATRIC: The patient denies depression. NEUROLOGIC: No weakness Constitutional: other (sedated) Head: normocephalic ENMT: intubated Neck: jvd (9 cm water), supple Respiratory: other (upper airway rhonchi) Cardiovascular: regular rate and rhythm Gastrointestinal: non-tender, soft Musculoskeletal: muscle tone (normal) Extremities: pitting pedal edema (Bilateral) Neurological: other (No focal deficits) Results Result Diagram: 03/12/16 0840 03/12/16 0430 Results 24 hrs Laboratory Tests Test 03/11/16 17:54 03/12/16 00:17 03/12/16 04:30 03/12/16 04:40 Bedside Glucose 163 151 Anion Gap 16 Blood Urea Nitrogen 35 H Calcium Level 8.6 Carbon Dioxide Level 28 Chloride Level 100 Creatinine 1.78 H Glucose Level 168 Magnesium Level 2.2 Phosphorus Level 6.0 H Potassium Level 3.5 Sodium Level 140 Basophils # Pending Basophils % Pending Blood Morphology Comment Eosinophils # Pending Eosinophils % Pending Hematocrit 23.9 L Hemoglobin 7.8 L Lymphocytes # Pending Lymphocytes % Pending Mean Corpuscular Hemoglobin 26.4 L Mean Corpuscular Hemoglobin Concent 32.6 Mean Corpuscular Volume 80.9 L Mean Platelet Volume 10.4 Monocytes # Pending Monocytes % Pending Neutrophils # Pending Neutrophils % Pending Nucleated Red Blood Cells # Pending Nucleated Red Blood Cells % Pending Platelet Count 313 Red Blood Count 2.95 L Red Cell Distribution Width 17.5 H White Blood Count 17.6 #H Test 03/12/16 04:50 03/12/16 05:47 03/12/16 08:40 03/12/16 11:43 Activated Partial Thromboplast Time 66.7 H INR International Normalized Ratio 1.40 Prothrombin Time 17.2 H Prothrombin Time Ratio 1.3 Bedside Glucose 201 182 Hematocrit 23.6 L Hemoglobin 7.8 L Medications Medications Current Medications Ondansetron HCl (Zofran Inj) 4 mg Q6H PRN IV NAUSEA AND/OR VOMITING; Start 02/18/16 at 09:30 Acetaminophen (Tylenol Supp) 650 mg Q4H PRN CA PAIN LEVEL 1-3 OR FEVER Last administered on 02/24/16at 14:32; Admin Dose 650 MG; Start 02/18/16 at 09:30 Morphine Sulfate (morphine) 2 mg Q4H PRN IV PAIN LEVEL 7-10 Last administered on 03/11/16at 16:13; Admin Dose 2 MG; Start 02/18/16 at 09:30 Bisacodyl (Dulcolax Supp) 10 mg DAILY PRN CA CONSTIPATION; Start 02/18/16 at 09 :30 Pantoprazole (Protonix Iv) 40 mg DAILY@06 IV Last administered on 03/12/16at 05 :42; Admin Dose 40 MG; Start 02/19/16 at 06:00 Metoprolol Tartrate (Lopressor) 5 mg Q4H PRN IV HR>55 Hold SBP<100 Last administered on 03/09/16at 12:08; Admin Dose 5 MG; Start 02/21/16 at 11:30 IV Flush (NS 10 ml) 10 ml PRN PRN IV IV PROTOCOL; Start 02/21/16 at 18:30 Ferrous Sulfate (Feosol Liquid Cup) 300 mg BID GTB Last administered on at 08:14; Admin Dose 300 MG; Start 02/22/16 at 10:00 Lorazepam (Ativan) 1 mg Q1H PRN IV ANXIETY Last administered on 03/11/16at 16: 13; Admin Dose 1 MG; Start 02/23/16 at 11:30 Miscellaneous Information 1 ea NOTE XX ; Start 02/23/16 at 23:15 Glucose (Glutose) 22.5 gm Q15M PRN PO DECREASED GLUCOSE; Start 02/23/16 at 23: 15 Dextrose (D50w Syringe) 25 ml Q15M PRN IV DECREASED GLUCOSE; Start 02/23/16 at 23:15 Dextrose (D50w Syringe) 50 ml Q15M PRN IV DECREASED GLUCOSE; Start 02/23/16 at 23:15 Glucagon (Glucagen) 1 mg Q15M PRN IM DECREASED GLUCOSE; Start 02/23/16 at 23:15 Glucose (Glutose) 15 gm Q15M PRN BUCCAL DECREASED GLUCOSE; Start 02/23/16 at 23 :15 Metoclopramide HCl (Reglan) 10 mg Q6 IV Last administered on 03/12/16at 11:40; Admin Dose 10 MG; Start 03/04/16 at 06:00 Acetaminophen (Tylenol Tab) 650 mg Q6H PRN NGT PAIN AND OR ELEVATED TEMP Last administered on 03/11/16at 20:36; Admin Dose 650 MG; Start 03/06/16 at 11:30 Glucose (Glutose) 15 gm Q15M PRN NGT DECREASED GLUCOSE; Start 03/06/16 at 08: 45 Hydralazine HCl (Apresoline) 100 mg Q8 NGT Last administered on 03/12/16at 05: 45; Admin Dose 100 MG; Start 03/06/16 at 14:00 Metoprolol Tartrate (Lopressor) 150 mg Q8 NGT Last administered on 03/12/16at 05:44; Admin Dose 150 MG; Start 03/06/16 at 14:00 Hydralazine HCl 10 mg 10 mg Q4H PRN IV ELEVATED SYSTOLIC BP Last administered on 03/09/16at 10:52; Admin Dose 10 MG; Start 03/06/16 at 16:00 Dextrose (D5W) 1,000 ml @ 80 mls/hr [id number] IV Last administered on at 08:49; Admin Dose 80 MLS/HR; Start 03/08/16 at 11:30 Diltiazem HCl (Cardizem) 60 mg Q8 PO Last administered on 03/12/16at 05:44; Admin Dose 60 MG; Start 03/09/16 at 14:00 Amlodipine Besylate (Norvasc) 10 mg DAILY PO Last administered on 03/12/16at 08 :15; Admin Dose 10 MG; Start 03/09/16 at 17:00 Minoxidil 10 mg 10 mg BID NGT Last administered on 03/12/16at 08:16; Admin Dose 10 MG; Start 03/09/16 at 21:00 Cefepime HCl 50 ml @ 100 mls/hr Q12 IVPB Last administered on 03/12/16at 08:45 ; Admin Dose 100 MLS/HR; Start 03/09/16 at 21:00 Vancomycin HCl 2 gm/Sodium Chloride 500 ml @ 125 mls/hr Q24H IVPB Last administered on 03/11/16at 22:38; Admin Dose 125 MLS/HR; Start 03/09/16 at 22: 00 Propofol (Diprivan) 100 ml @ 3.189 mls/ hr Q12H IV Last administered on at 11:40; Admin Dose 31.89 MLS/HR; Start 03/10/16 at 00:00 Insulin Aspart NOVOLOG *MODERATE* ALGORI... Q6 SC Last administered on at 11:48; Admin Dose 4 UNIT; Start 03/10/16 at 06:00 Levetiracetam/ Dextrose (Keppra Iv/D5W) 115 ml @ 460 mls/hr Q12 IVPB Last administered on 03/12/16at 08:14; Admin Dose 460 MLS/HR; Start 03/11/16 at 21: 00 Miscellaneous Information (*Rx Drug Level Order Reminder*) VANCO TROUGH @ 2, 100 ON ... ONCE ONCE XX ; Start 03/12/16 at 21:00; Stop 03/12/16 at 21:01 JUNAID PAZ Mar 12, 2016 12:14
[2016-03-12] MEDS: DILTIAZEM 30 MG TAB PO SCH ×2 (13:17→21:45)
--- NOTE | 2016-03-12 13:46 | CONS ---
Date/Time of Note Date/Time of Note DATE: 03/12/16 TIME: 13:42 Consult Date/Type/Reason Admit Date/Time Feb 18, 2016 at 09:14 Initial Consult Date 02/26/16 Type of Consultation: Neurology Reason for Consultation evaluate for anoxia seizure management Ordering Provider: MOSES HARRIS MD Subjective on sedation, no further jerking movement noted when weaned off sedation he becomes agitated per nurse not moving arms or legs Objective Vital Signs Date Time Temp Pulse Resp B/P Pulse Ox O2 Delivery O2 Flow Rate FiO2 03/12/16 13:00 99.6 84 27 139/70 95 Mechanical Ventilator 03/12/16 11:30 90 03/09/16 23:00 15.0 Intake and Output 03/11/16 03/11/16 03/12/16 15:00 23:00 07:00 Intake Total 1624 ml 1204 ml 1326 ml Output Total 1050 ml 630 ml 1190 ml Balance 574 ml 574 ml 136 ml Limited exam due to sedation on propofol drip unable to open eyes spontaneously, no spontaneous movement noted has corneals and gag reflex no muscle fasiculations seen today Results/Medications Result Diagram: 03/12/16 0840 03/12/16 0430 Results 24 hrs Laboratory Tests Test 03/11/16 17:54 03/12/16 00:17 03/12/16 04:30 03/12/16 04:40 Bedside Glucose 163 151 Anion Gap 16 Blood Urea Nitrogen 35 H Calcium Level 8.6 Carbon Dioxide Level 28 Chloride Level 100 Creatinine 1.78 H Glucose Level 168 Magnesium Level 2.2 Phosphorus Level 6.0 H Potassium Level 3.5 Sodium Level 140 Basophils # Pending Basophils % Pending Blood Morphology Comment Eosinophils # Pending Eosinophils % Pending Hematocrit 23.9 L Hemoglobin 7.8 L Lymphocytes # Pending Lymphocytes % Pending Mean Corpuscular Hemoglobin 26.4 L Mean Corpuscular Hemoglobin Concent 32.6 Mean Corpuscular Volume 80.9 L Mean Platelet Volume 10.4 Monocytes # Pending Monocytes % Pending Neutrophils # Pending Neutrophils % Pending Nucleated Red Blood Cells # Pending Nucleated Red Blood Cells % Pending Platelet Count 313 Red Blood Count 2.95 L Red Cell Distribution Width 17.5 H White Blood Count 17.6 #H Test 03/12/16 04:50 03/12/16 05:47 03/12/16 08:40 03/12/16 11:43 Activated Partial Thromboplast Time 66.7 H INR International Normalized Ratio 1.40 Prothrombin Time 17.2 H Prothrombin Time Ratio 1.3 Bedside Glucose 201 182 Hematocrit 23.6 L Hemoglobin 7.8 L Medications Current Medications Ondansetron HCl (Zofran Inj) 4 mg Q6H PRN IV NAUSEA AND/OR VOMITING; Start 02/18/16 at 09:30 Acetaminophen (Tylenol Supp) 650 mg Q4H PRN [place] PAIN LEVEL 1-3 OR FEVER Last administered on 02/24/16at 14:32; Admin Dose 650 MG; Start 02/18/16 at 09:30 Morphine Sulfate (morphine) 2 mg Q4H PRN IV PAIN LEVEL 7-10 Last administered on 03/11/16at 16:13; Admin Dose 2 MG; Start 02/18/16 at 09:30 Bisacodyl (Dulcolax Supp) 10 mg DAILY PRN SC CONSTIPATION; Start 02/18/16 at 09 :30 Pantoprazole (Protonix Iv) 40 mg DAILY@06 IV Last administered on 03/12/16at 05 :42; Admin Dose 40 MG; Start 02/19/16 at 06:00 Metoprolol Tartrate (Lopressor) 5 mg Q4H PRN IV HR>55 Hold SBP<100 Last administered on 03/09/16at 12:08; Admin Dose 5 MG; Start 02/21/16 at 11:30 IV Flush (NS 10 ml) 10 ml PRN PRN IV IV PROTOCOL; Start 02/21/16 at 18:30 Ferrous Sulfate (Feosol Liquid Cup) 300 mg BID GTB Last administered on at 08:14; Admin Dose 300 MG; Start 02/22/16 at 10:00 Lorazepam (Ativan) 1 mg Q1H PRN IV ANXIETY Last administered on 03/11/16at 16: 13; Admin Dose 1 MG; Start 02/23/16 at 11:30 Miscellaneous Information 1 ea NOTE XX ; Start 02/23/16 at 23:15 Glucose (Glutose) 22.5 gm Q15M PRN PO DECREASED GLUCOSE; Start 02/23/16 at 23: 15 Dextrose (D50w Syringe) 25 ml Q15M PRN IV DECREASED GLUCOSE; Start 02/23/16 at 23:15 Dextrose (D50w Syringe) 50 ml Q15M PRN IV DECREASED GLUCOSE; Start 02/23/16 at 23:15 Glucagon (Glucagen) 1 mg Q15M PRN IM DECREASED GLUCOSE; Start 02/23/16 at 23:15 Glucose (Glutose) 15 gm Q15M PRN BUCCAL DECREASED GLUCOSE; Start 02/23/16 at 23 :15 Metoclopramide HCl (Reglan) 10 mg Q6 IV Last administered on 03/12/16at 11:40; Admin Dose 10 MG; Start 03/04/16 at 06:00 Acetaminophen (Tylenol Tab) 650 mg Q6H PRN NGT PAIN AND OR ELEVATED TEMP Last administered on 03/11/16at 20:36; Admin Dose 650 MG; Start 03/06/16 at 11:30 Glucose (Glutose) 15 gm Q15M PRN NGT DECREASED GLUCOSE; Start 03/06/16 at 08: 45 Hydralazine HCl (Apresoline) 100 mg Q8 NGT Last administered on 03/12/16at 13: 17; Admin Dose 100 MG; Start 03/06/16 at 14:00 Metoprolol Tartrate (Lopressor) 150 mg Q8 NGT Last administered on 03/12/16at 13:15; Admin Dose 150 MG; Start 03/06/16 at 14:00 Hydralazine HCl 10 mg 10 mg Q4H PRN IV ELEVATED SYSTOLIC BP Last administered on 03/09/16at 10:52; Admin Dose 10 MG; Start 03/06/16 at 16:00 Dextrose (D5W) 1,000 ml @ 80 mls/hr [id number] IV Last administered on at 08:49; Admin Dose 80 MLS/HR; Start 03/08/16 at 11:30 Amlodipine Besylate (Norvasc) 10 mg DAILY PO Last administered on 03/12/16at 08 :15; Admin Dose 10 MG; Start 03/09/16 at 17:00 Minoxidil 10 mg 10 mg BID NGT Last administered on 03/12/16at 08:16; Admin Dose 10 MG; Start 03/09/16 at 21:00 Cefepime HCl 50 ml @ 100 mls/hr Q12 IVPB Last administered on 03/12/16at 08:45 ; Admin Dose 100 MLS/HR; Start 03/09/16 at 21:00 Vancomycin HCl 2 gm/Sodium Chloride 500 ml @ 125 mls/hr Q24H IVPB Last administered on 03/11/16at 22:38; Admin Dose 125 MLS/HR; Start 03/09/16 at 22: 00 Propofol (Diprivan) 100 ml @ 3.189 mls/ hr Q12H IV Last administered on at 11:40; Admin Dose 31.89 MLS/HR; Start 03/10/16 at 00:00 Insulin Aspart NOVOLOG *MODERATE* ALGORI... Q6 SC Last administered on at 11:48; Admin Dose 4 UNIT; Start 03/10/16 at 06:00 Levetiracetam/ Dextrose (Keppra Iv/D5W) 115 ml @ 460 mls/hr Q12 IVPB Last administered on 03/12/16at 08:14; Admin Dose 460 MLS/HR; Start 03/11/16 at 21: 00 Miscellaneous Information (*Rx Drug Level Order Reminder*) VANCO TROUGH @ 2, 100 ON ... ONCE ONCE XX ; Start 03/12/16 at 21:00; Stop 03/12/16 at 21:01 Diltiazem HCl (Cardizem) 90 mg Q8 PO Last administered on 03/12/16at 13:17; Admin Dose 90 MG; Start 03/12/16 at 14:00 Assessment/Plan Chief Complaint/Hosp Course 45 y/o M admitted for management of hypertensive emergency, with aortic dissection, FARRUKH, aspiration pneumonia and respiratory failure, briefly extubated requiring re-intubation. Tremors were noted over the weekend, dose of Keppra was increased to [address] on 02/22 unrevealing shows chronic microvascular changes, no acute ischemic changes/ hemorrhage. Repeat Head CT: no ICH, mass effect or midline shift, increase in ventricle size likely related to improving cerebral edema. Recommendations: -continue frequent neuro exams off sedation -Routine EEG done will follow up on official read -continue on Keppra 1500 mg BID -when patient is more stable please obtain MRI Brain without contrast, MRA Head/ Neck without contrast to evaluate for areas of ischemia/ structural abnormalities -i will continue to follow Problems: JAIRON MCNAIR MD Mar 12, 2016 13:46
--- NOTE | 2016-03-12 14:22 | CONS ---
Date/Time of Note Date/Time of Note DATE: 03/12/16 TIME: 14:17 Consult Date/Type/Reason Admit Date/Time Feb 18, 2016 at 09:14 Initial Consult Date 02/26/16 Type of Consultation: ID Ordering Provider: MOSES HARRIS MD Subjective no events, intubated, sedated, spiking fevers, comfortable on vent Objective Vital Signs Date Time Temp Pulse Resp B/P Pulse Ox O2 Delivery O2 Flow Rate FiO2 03/12/16 14:00 74 30 133/67 91 Mechanical Ventilator 03/12/16 13:00 99.6 03/12/16 11:30 90 03/09/16 23:00 15.0 Intake and Output 03/11/16 03/11/16 03/12/16 15:00 23:00 07:00 Intake Total 1624 ml 1204 ml 1326 ml Output Total 1050 ml 630 ml 1190 ml Balance 574 ml 574 ml 136 ml Results/Medications Result Diagram: 03/12/16 0840 03/12/16 0430 Results 24 hrs Laboratory Tests Test 03/11/16 17:54 03/12/16 00:17 03/12/16 04:30 03/12/16 04:40 Bedside Glucose 163 151 Anion Gap 16 Blood Urea Nitrogen 35 H Calcium Level 8.6 Carbon Dioxide Level 28 Chloride Level 100 Creatinine 1.78 H Glucose Level 168 Magnesium Level 2.2 Phosphorus Level 6.0 H Potassium Level 3.5 Sodium Level 140 Basophils # Pending Basophils % Pending Blood Morphology Comment Eosinophils # Pending Eosinophils % Pending Hematocrit 23.9 L Hemoglobin 7.8 L Lymphocytes # Pending Lymphocytes % Pending Mean Corpuscular Hemoglobin 26.4 L Mean Corpuscular Hemoglobin Concent 32.6 Mean Corpuscular Volume 80.9 L Mean Platelet Volume 10.4 Monocytes # Pending Monocytes % Pending Neutrophils # Pending Neutrophils % Pending Nucleated Red Blood Cells # Pending Nucleated Red Blood Cells % Pending Platelet Count 313 Red Blood Count 2.95 L Red Cell Distribution Width 17.5 H White Blood Count 17.6 #H Test 03/12/16 04:50 03/12/16 05:47 03/12/16 08:40 03/12/16 11:43 Activated Partial Thromboplast Time 66.7 H INR International Normalized Ratio 1.40 Prothrombin Time 17.2 H Prothrombin Time Ratio 1.3 Bedside Glucose 201 182 Hematocrit 23.6 L Hemoglobin 7.8 L Test 03/12/16 13:30 Activated Partial Thromboplast Time 61.5 H Medications Current Medications Ondansetron HCl (Zofran Inj) 4 mg Q6H PRN IV NAUSEA AND/OR VOMITING; Start 02/18/16 at 09:30 Acetaminophen (Tylenol Supp) 650 mg Q4H PRN [place] PAIN LEVEL 1-3 OR FEVER Last administered on 02/24/16at 14:32; Admin Dose 650 MG; Start 02/18/16 at 09:30 Morphine Sulfate (morphine) 2 mg Q4H PRN IV PAIN LEVEL 7-10 Last administered on 03/11/16at 16:13; Admin Dose 2 MG; Start 02/18/16 at 09:30 Bisacodyl (Dulcolax Supp) 10 mg DAILY PRN [place] CONSTIPATION; Start 02/18/16 at 09 :30 Pantoprazole (Protonix Iv) 40 mg DAILY@06 IV Last administered on 03/12/16at 05 :42; Admin Dose 40 MG; Start 02/19/16 at 06:00 Metoprolol Tartrate (Lopressor) 5 mg Q4H PRN IV HR>55 Hold SBP<100 Last administered on 03/09/16at 12:08; Admin Dose 5 MG; Start 02/21/16 at 11:30 IV Flush (NS 10 ml) 10 ml PRN PRN IV IV PROTOCOL; Start 02/21/16 at 18:30 Ferrous Sulfate (Feosol Liquid Cup) 300 mg BID GTB Last administered on at 08:14; Admin Dose 300 MG; Start 02/22/16 at 10:00 Lorazepam (Ativan) 1 mg Q1H PRN IV ANXIETY Last administered on 03/11/16at 16: 13; Admin Dose 1 MG; Start 02/23/16 at 11:30 Miscellaneous Information 1 ea NOTE XX ; Start 02/23/16 at 23:15 Glucose (Glutose) 22.5 gm Q15M PRN PO DECREASED GLUCOSE; Start 02/23/16 at 23: 15 Dextrose (D50w Syringe) 25 ml Q15M PRN IV DECREASED GLUCOSE; Start 02/23/16 at 23:15 Dextrose (D50w Syringe) 50 ml Q15M PRN IV DECREASED GLUCOSE; Start 02/23/16 at 23:15 Glucagon (Glucagen) 1 mg Q15M PRN IM DECREASED GLUCOSE; Start 02/23/16 at 23:15 Glucose (Glutose) 15 gm Q15M PRN BUCCAL DECREASED GLUCOSE; Start 02/23/16 at 23 :15 Metoclopramide HCl (Reglan) 10 mg Q6 IV Last administered on 03/12/16at 11:40; Admin Dose 10 MG; Start 03/04/16 at 06:00 Acetaminophen (Tylenol Tab) 650 mg Q6H PRN NGT PAIN AND OR ELEVATED TEMP Last administered on 03/11/16at 20:36; Admin Dose 650 MG; Start 03/06/16 at 11:30 Glucose (Glutose) 15 gm Q15M PRN NGT DECREASED GLUCOSE; Start 03/06/16 at 08: 45 Hydralazine HCl (Apresoline) 100 mg Q8 NGT Last administered on 03/12/16at 13: 17; Admin Dose 100 MG; Start 03/06/16 at 14:00 Metoprolol Tartrate (Lopressor) 150 mg Q8 NGT Last administered on 03/12/16at 13:15; Admin Dose 150 MG; Start 03/06/16 at 14:00 Hydralazine HCl 10 mg 10 mg Q4H PRN IV ELEVATED SYSTOLIC BP Last administered on 03/09/16at 10:52; Admin Dose 10 MG; Start 03/06/16 at 16:00 Dextrose (D5W) 1,000 ml @ 80 mls/hr [id number] IV Last administered on at 08:49; Admin Dose 80 MLS/HR; Start 03/08/16 at 11:30 Amlodipine Besylate (Norvasc) 10 mg DAILY PO Last administered on 03/12/16at 08 :15; Admin Dose 10 MG; Start 03/09/16 at 17:00 Minoxidil 10 mg 10 mg BID NGT Last administered on 03/12/16at 08:16; Admin Dose 10 MG; Start 03/09/16 at 21:00 Cefepime HCl 50 ml @ 100 mls/hr Q12 IVPB Last administered on 03/12/16at 08:45 ; Admin Dose 100 MLS/HR; Start 03/09/16 at 21:00 Vancomycin HCl 2 gm/Sodium Chloride 500 ml @ 125 mls/hr Q24H IVPB Last administered on 03/11/16at 22:38; Admin Dose 125 MLS/HR; Start 03/09/16 at 22: 00 Propofol (Diprivan) 100 ml @ 3.189 mls/ hr Q12H IV Last administered on at 11:40; Admin Dose 31.89 MLS/HR; Start 03/10/16 at 00:00 Insulin Aspart NOVOLOG *MODERATE* ALGORI... Q6 SC Last administered on at 11:48; Admin Dose 4 UNIT; Start 03/10/16 at 06:00 Levetiracetam/ Dextrose (Keppra Iv/D5W) 115 ml @ 460 mls/hr Q12 IVPB Last administered on 03/12/16at 08:14; Admin Dose 460 MLS/HR; Start 03/11/16 at 21: 00 Miscellaneous Information (*Rx Drug Level Order Reminder*) VANCO TROUGH @ 2, 100 ON ... ONCE ONCE XX ; Start 03/12/16 at 21:00; Stop 03/12/16 at 21:01 Diltiazem HCl (Cardizem) 90 mg Q8 PO Last administered on 03/12/16at 13:17; Admin Dose 90 MG; Start 03/12/16 at 14:00 Assessment/Plan Chief Complaint/Hosp Course MICROBIOLOGY: Urine, sputum and blood cultures are negative INDWELLINGS: Endotracheal tube, NG tube, Smalls catheter, PICC line placed on . ANTIMICROBIALS: 1. Vancomycin. 2. Cefepime. PHYSICAL EXAMINATION: GENERAL: This is an obese, well-developed, middle aged -[place] male who was lying comfortably in bed. HEENT: Head atraumatic, normocephalic. Sclera anicteric. Buccal mucosa dry. The patient had some white thrush on his tongue. NECK: Obese. CHEST: Rise symmetrical. Breath sounds diminished to bases. HEART: S1, S2. ABDOMEN: Obese, soft. Bowel tones hyperactive. EXTREMITIES: With bilateral edema. ASSESSMENT: 1. Sepsis with fevers and leukocytosis ?etiology==> cultures have been negative. 2. Probable aspiration pneumonia, status post recurrent intubation. 3. Acute encephalopathy. 4. Accelerated hypertension. 5. Seizure disorder. 6. Type B aortic dissection. 7. Pulmonary emboli, remains on heparin drip. 8. Oral thrush PLAN: The patient remains unchanged, with on/off fevers and leukocytosis, negative cultures, will check procalcitonin level, change Cefepime to Zosyn, consider diagnostic CT chest/abdomen/pelvis DW staff Problems: HUSAM SANFORD NP Mar 12, 2016 14:22
[2016-03-12] MEDS: PIPER-TAZO 2.25 GM (PMX) 50 ML IVPB SCH ×2 (14:41→22:03)
[2016-03-12] MEDS: FLUCONAZOLE 100 MG TAB PO SCH (14:41)
[2016-03-12] MEDS: ACETAMINOPHEN 325 MG TAB NGT PRN (15:40)
--- NOTE | 2016-03-12 16:54 | SP ---
DATE OF PROCEDURE: 03/11/2016 EEG REPORT HISTORY: This is a 45-year-old male with history of type 2 aortic dissection, acute hypoxic event status post respiratory failure, was found to be encephalopathic. CURRENT MEDICATIONS: 1. Keppra. 2. NovoLog. 3. Propofol. 4. Vancomycin. 5. Cefepime. 6. Cardizem. PROCEDURE: Utilizing a 16-channel EEG machine, cap scalp electrodes were applied in accordance with the International 10-20 system. [id number] and [id number] montages were displayed. Electrical impedances were measured and reported. DESCRIPTION: During a resting state, posterior dominant rhythm of about 10 to 12 Hz were seen bihemispherically. The photic stimulation has a little response. Hyperventilation was not performed. Left frontal sharps were noted at times during the tracing. INTERPRETATION: This is an abnormal EEG because of presence of left frontal sharps which could be epileptogenic. Please correlate these findings with patient's clinical picture. Dictated By: PARK HI/EFRAIN Conf#: [id number] DID#: [id number] MTDJeane
--- NOTE | 2016-03-12 17:36 | CONS ---
Date/Time of Note Date/Time of Note DATE: 03/12/16 TIME: 17:35 Assessment/Plan Assessment/Plan Chief Complaint/Hosp Course Assessment/Plan 1. Acute kidney injury, likely secondary to acute tubular necrosis from contrast-induced nephropathy and also secondary to ischemic acute tubular necrosis from aortic dissection.stable 2. A type B Helio aortic dissection. 3. Hypertension 4. acute resp failiure intubated on ventilator 5 edema 6 hypernatremia BETTER plan F/U LYTES per pulmonary Problems: Consultation Date/Type/Reason Admit Date/Time Feb 18, 2016 at 09:14 Initial Consult Date 02/26/16 Type of Consultation: renal Referring Provider: MOSES HARRIS MD 24 HR Interval Summary Constitutional: other (on vent) Exam/Review of Systems Vital Signs Vitals Vital Signs Date Time Temp Pulse Resp B/P Pulse Ox O2 Delivery O2 Flow Rate FiO2 03/12/16 17:00 80 31 143/72 95 Mechanical Ventilator 03/12/16 16:10 100 03/12/16 16:00 99.9 03/09/16 23:00 15.0 Intake and Output 03/11/16 03/11/16 03/12/16 15:00 23:00 07:00 Intake Total 1624 ml 1204 ml 1326 ml Output Total 1050 ml 630 ml 1190 ml Balance 574 ml 574 ml 136 ml Exam Respiratory: diminished breath sounds Cardiovascular: regular rate and rhythm Gastrointestinal: soft Extremities: edema (++) Results Result Diagram: 03/12/16 0840 03/12/16 0430 Results 24 hrs Laboratory Tests Test 03/11/16 17:54 03/12/16 00:17 03/12/16 04:30 03/12/16 04:40 Bedside Glucose 163 151 Anion Gap 16 Blood Urea Nitrogen 35 H Calcium Level 8.6 Carbon Dioxide Level 28 Chloride Level 100 Creatinine 1.78 H Glucose Level 168 Magnesium Level 2.2 Phosphorus Level 6.0 H Potassium Level 3.5 Sodium Level 140 Basophils # 0.1 Basophils % 0.3 Blood Morphology Comment Eosinophils # 0.6 H Eosinophils % 3.3 Hematocrit 23.9 L Hemoglobin 7.8 L Lymphocytes # 1.0 Lymphocytes % 5.5 L Mean Corpuscular Hemoglobin 26.4 L Mean Corpuscular Hemoglobin Concent 32.6 Mean Corpuscular Volume 80.9 L Mean Platelet Volume 10.4 Monocytes # 0.8 Monocytes % 4.6 Neutrophils # 15.2 H Neutrophils % 86.3 H Nucleated Red Blood Cells # 0.0 Nucleated Red Blood Cells % 0.0 Platelet Count 313 Red Blood Count 2.95 L Red Cell Distribution Width 17.5 H White Blood Count 17.6 #H Test 03/12/16 04:50 03/12/16 05:47 03/12/16 08:40 03/12/16 11:43 Activated Partial Thromboplast Time 66.7 H INR International Normalized Ratio 1.40 Prothrombin Time 17.2 H Prothrombin Time Ratio 1.3 Bedside Glucose 201 182 Hematocrit 23.6 L Hemoglobin 7.8 L Test 03/12/16 13:30 Activated Partial Thromboplast Time 61.5 H Medications Medications Current Medications Ondansetron HCl (Zofran Inj) 4 mg Q6H PRN IV NAUSEA AND/OR VOMITING; Start 02/18/16 at 09:30 Acetaminophen (Tylenol Supp) 650 mg Q4H PRN [place] PAIN LEVEL 1-3 OR FEVER Last administered on 02/24/16at 14:32; Admin Dose 650 MG; Start 02/18/16 at 09:30 Morphine Sulfate (morphine) 2 mg Q4H PRN IV PAIN LEVEL 7-10 Last administered on 03/11/16at 16:13; Admin Dose 2 MG; Start 02/18/16 at 09:30 Bisacodyl (Dulcolax Supp) 10 mg DAILY PRN [place] CONSTIPATION; Start 02/18/16 at 09 :30 Pantoprazole (Protonix Iv) 40 mg DAILY@06 IV Last administered on 03/12/16at 05 :42; Admin Dose 40 MG; Start 02/19/16 at 06:00 Metoprolol Tartrate (Lopressor) 5 mg Q4H PRN IV HR>55 Hold SBP<100 Last administered on 03/09/16at 12:08; Admin Dose 5 MG; Start 02/21/16 at 11:30 IV Flush (NS 10 ml) 10 ml PRN PRN IV IV PROTOCOL; Start 02/21/16 at 18:30 Ferrous Sulfate (Feosol Liquid Cup) 300 mg BID GTB Last administered on at 08:14; Admin Dose 300 MG; Start 02/22/16 at 10:00 Lorazepam (Ativan) 1 mg Q1H PRN IV ANXIETY Last administered on 03/11/16at 16: 13; Admin Dose 1 MG; Start 02/23/16 at 11:30 Miscellaneous Information 1 ea NOTE XX ; Start 02/23/16 at 23:15 Glucose (Glutose) 22.5 gm Q15M PRN PO DECREASED GLUCOSE; Start 02/23/16 at 23: 15 Dextrose (D50w Syringe) 25 ml Q15M PRN IV DECREASED GLUCOSE; Start 02/23/16 at 23:15 Dextrose (D50w Syringe) 50 ml Q15M PRN IV DECREASED GLUCOSE; Start 02/23/16 at 23:15 Glucagon (Glucagen) 1 mg Q15M PRN IM DECREASED GLUCOSE; Start 02/23/16 at 23:15 Glucose (Glutose) 15 gm Q15M PRN BUCCAL DECREASED GLUCOSE; Start 02/23/16 at 23 :15 Metoclopramide HCl (Reglan) 10 mg Q6 IV Last administered on 03/12/16at 17:28; Admin Dose 10 MG; Start 03/04/16 at 06:00 Acetaminophen (Tylenol Tab) 650 mg Q6H PRN NGT PAIN AND OR ELEVATED TEMP Last administered on 03/12/16at 15:40; Admin Dose 650 MG; Start 03/06/16 at 11:30 Glucose (Glutose) 15 gm Q15M PRN NGT DECREASED GLUCOSE; Start 03/06/16 at 08: 45 Hydralazine HCl (Apresoline) 100 mg Q8 NGT Last administered on 03/12/16at 13: 17; Admin Dose 100 MG; Start 03/06/16 at 14:00 Metoprolol Tartrate (Lopressor) 150 mg Q8 NGT Last administered on 03/12/16at 13:15; Admin Dose 150 MG; Start 03/06/16 at 14:00 Hydralazine HCl 10 mg 10 mg Q4H PRN IV ELEVATED SYSTOLIC BP Last administered on 03/09/16at 10:52; Admin Dose 10 MG; Start 03/06/16 at 16:00 Dextrose (D5W) 1,000 ml @ 80 mls/hr [id number] IV Last administered on at 08:49; Admin Dose 80 MLS/HR; Start 03/08/16 at 11:30 Amlodipine Besylate (Norvasc) 10 mg DAILY PO Last administered on 03/12/16 08 :15; Admin Dose 10 MG; Start 03/09/16 at 17:00 Minoxidil 10 mg 10 mg BID NGT Last administered on 03/12/16at 08:16; Admin Dose 10 MG; Start 03/09/16 at 21:00 Vancomycin HCl 2 gm/Sodium Chloride 500 ml @ 125 mls/hr Q24H IVPB Last administered on 03/11/16at 22:38; Admin Dose 125 MLS/HR; Start 03/09/16 at 22: 00 Propofol (Diprivan) 100 ml @ 3.189 mls/ hr Q12H IV Last administered on 17:28; Admin Dose 31.89 MLS/HR; Start 03/10/16 at 00:00 Insulin Aspart NOVOLOG *MODERATE* ALGORI... Q6 SC Last administered on 11:48; Admin Dose 4 UNIT; Start 03/10/16 at 06:00 Levetiracetam/ Dextrose (Keppra Iv/D5W) 115 ml @ 460 mls/hr Q12 IVPB Last administered on 03/12/16 08:14; Admin Dose 460 MLS/HR; Start 03/11/16 at 21: 00 Miscellaneous Information (*Rx Drug Level Order Reminder*) VANCO TROUGH @ 2, 100 ON ... ONCE ONCE XX ; Start 03/12/16 at 21:00; Stop 03/12/16 at 21:01 Diltiazem HCl (Cardizem) 90 mg Q8 PO Last administered on 03/12/16at 13:17; Admin Dose 90 MG; Start 03/12/16 at 14:00 Fluconazole 100 mg 100 mg DAILY PO Last administered on 03/12/16 14:41; Admin Dose 100 MG; Start 03/12/16 at 14:30 Piperacillin Sod/ Tazobactam Sod (Zosyn 2.25gm/ 50ml (Pmx)) 50 ml @ 100 mls/hr Q8 IVPB Last administered on 03/12/16at 14:41; Admin Dose 100 MLS/HR; Start at 15:00 SASHA OWEN MD Mar 12, 2016 17:36
[2016-03-12] MEDS: VANCOMYCIN 2 GM in SOD CHLORIDE 0.9% 500 ML IVPB SCH (23:20)
[2016-03-13] VITALS (40 sets, daily range): BP systolic 95–183; BP diastolic 47–84; PULSE 51–93; RESP 17–33
[2016-03-13] MEDS: ALBUTEROL HFA 8 GM INHALER INH SCH ×4 (01:40→20:47)
[2016-03-13] MEDS: PROPOFOL 100 ML IV SCH ×8 (03:30→21:47)
[2016-03-13] MEDS: DEXTROSE 5% 1,000 ML IV SCH ×2 (03:35→15:43)
[2016-03-13] MEDS: METOCLOPRAMIDE 10 MG INJ IV SCH ×3 (05:22→17:34)
[2016-03-13] MEDS: DILTIAZEM 30 MG TAB PO SCH ×4 (05:24→21:39)
[2016-03-13] MEDS: METOPROLOL 100 MG TAB NGT SCH ×3 (05:26→21:39)
[2016-03-13] MEDS: PANTOPRAZOLE 40 MG INJ IV SCH ×2 (05:27→17:34)
[2016-03-13] MEDS: PIPER-TAZO 2.25 GM (PMX) 50 ML IVPB SCH ×3 (05:31→21:38)
[2016-03-13] MEDS: INSULIN ASPART [NOVOLOG] 3 ML PEN SC SCH ×3 (05:47→18:05)
[2016-03-13 06:05] LABS: HEMATOCRIT 23.8 % (42.0-52.0); HEMOGLOBIN 7.9 g/dl (14.0-18.0); MEAN CORPUSCULAR HEMOGLOBIN 26.4 pg (29.0-33.0); MEAN CORPUSCULAR HGB CONC 32.9 g/dl (32.0-37.0); MEAN CORPUSCULAR VOLUME 80.2 fl (82.0-101.0); MEAN PLATELET VOLUME 10.1 fl (7.4-10.4); PLATELET COUNT 303 10^3/UL (140-440); RED BLOOD COUNT 2.97 10^6/ul (4.70-6.10); RED CELL DISTRIBUTION WIDTH 17.6 % (11.5-14.5); UNCORRECTED WBC 20.6 10^3/ul (4.8-10.8); WHITE BLOOD COUNT 20.6 10^3/ul (4.8-10.8)
[2016-03-13 06:31] LABS: CONDITION 1; LH ANALYZER COMMENTS 1; MAGNESIUM 2.4 mg/dl (1.7-2.5); PHOSPHORUS 6.9 mg/dl (2.5-4.9)
--- NOTE | 2016-03-13 06:59 | PN ---
Date/Time of Note Date/Time of Note DATE: 03/13/16 TIME: 06:57 Assessment/Plan VTE Prophylaxis VTE Prophylaxis Intervention: heparin Lines/Catheters IV [facility] PICC Line Central line still needed: Yes Urinary Cath still in place: Yes Reason Cath still needed: terminal illness/intractable pain Assessment/Plan Chief Complaint/Hosp Course 1. Type B aortic dissection. Continue blood pressure control. Continue ICU monitoring. Status post evaluation by vascular surgery. No surgical intervention as of now. 2. Accelerated hypertension. Currently controlled. On antihypertensives. 3. Acute hypoxic respiratory failure. Etiology unclear. Most probably secondary to aspiration. Continue ventilator support as per pulmonary. The patient was extubated and then re-intubated. 4. Aspiration pneumonia. Continue antibiotics as per infectious diseases. 5. Acute kidney injury, most probably secondary to hemodynamics. Nephrology following. Use nephrotoxic drugs with caution. 6. Left cephalic vein thrombosis. On therapeutic anticoagulation. 7. Pulmonary embolism (02/29/2016). On therapeutic anticoagulation with heparin gtt. 8. Microcytic hypochromic anemia. Iron panel showing iron deficiency. Continue iron supplements. 9. Acute encephalopathy, most probably metabolic in origin. Electroencephalography showing background slowing suggesting bihemispheric subcortical dysfunction, possibly epileptiform activity. The patient is on anticonvulsants. Was evaluated by Neurology. 10. Hyperdynamic left ventricular systolic function. Cardiology following. 11. Coffee-ground residual from tube feeding. The patient on heparin drip. Will do serial H&H. Will increase the dose of Protonix. If the patient has evidence of significant bleeding, we will hold the heparin drip. 12. Fluids, electrolytes, and nutrition. IV fluids as per nephrology. Hold NG tube feedings. 13. Deep venous thrombosis prophylaxis. On therapeutic anticoagulation. 14. Gastrointestinal prophylaxis. Proton pump inhibitor. PLAN: Continue intensive care unit monitoring. Ventilator weaning as per pulmonary. Hold NG tube feedings. Serial H&H. Increase the dose of Protonix. The plan of care was explained to the patient's fianc who was at the bedside. Case discussed with Dr. Mosher. Critical care time 35 minutes. Problems: Subjective 24 Hr Interval Summary Free Text/Dictation Remains on vent. Vital signs stable. Coffee-ground drainage from the NG tube. Tube feedings held. Exam/Review of Systems Vital Signs Vitals Vital Signs Date Time Temp Pulse Resp B/P Pulse Ox O2 Delivery O2 Flow Rate FiO2 03/13/16 05:09 82 31 95 100 03/13/16 02:00 131/63 Mechanical Ventilator 03/13/16 00:00 98.7 03/09/16 23:00 15.0 Intake and Output 03/12/16 03/12/16 03/13/16 15:00 23:00 07:00 Intake Total 1306.01 ml 687.56 ml 0 ml Output Total 970 ml 1020 ml 330 ml Balance 336.01 ml -332.44 ml -330 ml Exam GENERAL: Obese male lying bed. Orally intubated. HEENT: Head normocephalic and atraumatic. Eyes: Anicteric sclerae. Conjunctivae clear. ENT: Nasal septum is midline. Oral mucosa is dry. NECK: Short and obese. Unable to visualize any neck veins. CARDIAC: Regular rate and rhythm. S1 and S2 heard. ABDOMEN: Protruded. Soft. Bowel sounds hypoactive in all 4 quadrants. GENITOURINARY: The patient has a Smalls catheter in place. EXTREMITIES: No cyanosis, no clubbing. Edema of bilateral lower extremities and bilateral upper extremities. Right upper extremity PICC line in place. Peripheral pulses palpable. NEUROLOGIC: The patient is sedated. Results Result Diagram: 03/13/16 0530 03/12/16 0430 Results 24 hrs Laboratory Tests Test 03/12/16 08:40 03/12/16 11:43 03/12/16 13:30 03/12/16 17:47 Hematocrit 23.6 L Hemoglobin 7.8 L Bedside Glucose 182 163 Activated Partial Thromboplast Time 61.5 H Test 03/12/16 20:43 03/12/16 23:47 03/13/16 01:48 03/13/16 05:30 Activated Partial Thromboplast Time 89.6 *H 87.9 *H Vancomycin Level Trough 18.2 Bedside Glucose 170 Blood Morphology Comment Hematocrit 23.8 L Hemoglobin 7.9 L Magnesium Level 2.4 Mean Corpuscular Hemoglobin 26.4 L Mean Corpuscular Hemoglobin Concent 32.9 Mean Corpuscular Volume 80.2 L Mean Platelet Volume 10.1 Phosphorus Level 6.9 H Platelet Count 303 Red Blood Count 2.97 L Red Cell Distribution Width 17.6 H White Blood Count 20.6 H Test 03/13/16 05:43 Bedside Glucose 166 Medications Medications Current Medications Ondansetron HCl (Zofran Inj) 4 mg Q6H PRN IV NAUSEA AND/OR VOMITING; Start 02/18/16 at 09:30 Acetaminophen (Tylenol Supp) 650 mg Q4H PRN [place] PAIN LEVEL 1-3 OR FEVER Last administered on 02/24/16at 14:32; Admin Dose 650 MG; Start 02/18/16 at 09:30 Morphine Sulfate (morphine) 2 mg Q4H PRN IV PAIN LEVEL 7-10 Last administered on 03/11/16at 16:13; Admin Dose 2 MG; Start 02/18/16 at 09:30 Bisacodyl (Dulcolax Supp) 10 mg DAILY PRN [place] CONSTIPATION; Start 02/18/16 at 09 :30 Pantoprazole (Protonix Iv) 40 mg DAILY@06 IV Last administered on 03/13/16at 05 :27; Admin Dose 40 MG; Start 02/19/16 at 06:00 Metoprolol Tartrate (Lopressor) 5 mg Q4H PRN IV HR>55 Hold SBP<100 Last administered on 03/09/16at 12:08; Admin Dose 5 MG; Start 02/21/16 at 11:30 IV Flush (NS 10 ml) 10 ml PRN PRN IV IV PROTOCOL; Start 02/21/16 at 18:30 Ferrous Sulfate (Feosol Liquid Cup) 300 mg BID GTB Last administered on at 21:38; Admin Dose 300 MG; Start 02/22/16 at 10:00 Lorazepam (Ativan) 1 mg Q1H PRN IV ANXIETY Last administered on 03/11/16at 16: 13; Admin Dose 1 MG; Start 02/23/16 at 11:30 Miscellaneous Information 1 ea NOTE XX ; Start 02/23/16 at 23:15 Glucose (Glutose) 22.5 gm Q15M PRN PO DECREASED GLUCOSE; Start 02/23/16 at 23: 15 Dextrose (D50w Syringe) 25 ml Q15M PRN IV DECREASED GLUCOSE; Start 02/23/16 at 23:15 Dextrose (D50w Syringe) 50 ml Q15M PRN IV DECREASED GLUCOSE; Start 02/23/16 at 23:15 Glucagon (Glucagen) 1 mg Q15M PRN IM DECREASED GLUCOSE; Start 02/23/16 at 23:15 Glucose (Glutose) 15 gm Q15M PRN BUCCAL DECREASED GLUCOSE; Start 02/23/16 at 23 :15 Metoclopramide HCl (Reglan) 10 mg Q6 IV Last administered on 03/13/16at 05:22; Admin Dose 10 MG; Start 03/04/16 at 06:00 Acetaminophen (Tylenol Tab) 650 mg Q6H PRN NGT PAIN AND OR ELEVATED TEMP Last administered on 03/12/16at 15:40; Admin Dose 650 MG; Start 03/06/16 at 11:30 Glucose (Glutose) 15 gm Q15M PRN NGT DECREASED GLUCOSE; Start 03/06/16 at 08: 45 Hydralazine HCl (Apresoline) 100 mg Q8 NGT Last administered on 03/13/16 05: 26; Admin Dose 100 MG; Start 03/06/16 at 14:00 Metoprolol Tartrate (Lopressor) 150 mg Q8 NGT Last administered on 03/13/16 05:26; Admin Dose 150 MG; Start 03/06/16 at 14:00 Hydralazine HCl 10 mg 10 mg Q4H PRN IV ELEVATED SYSTOLIC BP Last administered on 03/09/16at 10:52; Admin Dose 10 MG; Start 03/06/16 at 16:00 Dextrose (D5W) 1,000 ml @ 80 mls/hr [id number] IV Last administered on at 03:35; Admin Dose 80 MLS/HR; Start 03/08/16 at 11:30 Amlodipine Besylate (Norvasc) 10 mg DAILY PO Last administered on 03/12/16at 08 :15; Admin Dose 10 MG; Start 03/09/16 at 17:00 Minoxidil 10 mg 10 mg BID NGT Last administered on 03/12/16 21:40; Admin Dose 10 MG; Start 03/09/16 at 21:00 Vancomycin HCl 2 gm/Sodium Chloride 500 ml @ 125 mls/hr Q24H IVPB Last administered on 03/12/16at 23:20; Admin Dose 125 MLS/HR; Start 03/09/16 at 22: 00 Propofol (Diprivan) 100 ml @ 3.189 mls/ hr Q12H IV Last administered on 06:07; Admin Dose 31.89 MLS/HR; Start 03/10/16 at 00:00 Insulin Aspart NOVOLOG *MODERATE* ALGORI... Q6 SC Last administered on at 05:47; Admin Dose 2 UNIT; Start 03/10/16 at 06:00 Levetiracetam/ Dextrose (Keppra Iv/D5W) 115 ml @ 460 mls/hr Q12 IVPB Last administered on 03/12/16at 21:38; Admin Dose 460 MLS/HR; Start 03/11/16 at 21: 00 Diltiazem HCl (Cardizem) 90 mg Q8 PO Last administered on 03/13/16at 05:24; Admin Dose 90 MG; Start 03/12/16 at 14:00 Fluconazole 100 mg 100 mg DAILY PO Last administered on 03/12/16at 14:41; Admin Dose 100 MG; Start 03/12/16 at 14:30 Piperacillin Sod/ Tazobactam Sod (Zosyn 2.25gm/ 50ml (Pmx)) 50 ml @ 100 mls/hr Q8 IVPB Last administered on 03/13/16at 05:31; Admin Dose 100 MLS/HR; Start at 15:00 KEITH CRAIG NP Mar 13, 2016 06:59 KEITH CRAIG NP Mar 13, 2016 06:59
[2016-03-13] MEDS: HEPARIN 25000 UNITS/250 ML 250 ML IV SCH ×3 (07:14→23:30)
[2016-03-13 07:34] LABS: POTASSIUM 4.1 mmol/L (3.5-5.1)
[2016-03-13 07:36] LABS: CREATININE 1.73 mg/dl (0.61-1.24)
[2016-03-13 07:37] LABS: CALCIUM 8.7 mg/dl (8.4-10.2)
[2016-03-13] MEDS: IPRATROPIUM (HFA) 12.9 GM INHALER INH SCH ×3 (08:15→20:47)
[2016-03-13 08:19] LABS: AADO2 Arterial 600.6 mmHg (7.0-24.0); Allen Test ACCEPTAB; Arterial Base Excess -0.2 mmol/L (-3.0-3); Arterial COHb 0.2 % (0.0-3.0); Arterial Fraction of Oxyhgb 91.7 % (93.0-99.0); Arterial HCO3 24.9 mmol/L (22.0-26.0); Arterial MetHb 0.2 % (0.0-1.5); Arterial Total Hemglobin 8.4 g/dl (12.0-18.0); MODE VENT - AC
[2016-03-13] MEDS: LEVETIRACETAM IV 1,500 MG in DEXTROSE 5% 100 ML IVPB SCH ×2 (08:53→21:36)
[2016-03-13] MEDS: FERROUS SULFATE 60 MG/ML 5ML CUP GTB SCH ×2 (08:53→21:36)
[2016-03-13] MEDS: MINOXIDIL 10 MG TAB NGT SCH ×2 (08:54→21:37)
[2016-03-13] MEDS: AMLODIPINE 10 MG TAB PO SCH (08:54)
[2016-03-13] MEDS: FLUCONAZOLE 100 MG TAB PO SCH (08:54)
--- NOTE | 2016-03-13 08:59 | RADRPT ---
PROCEDURE: Chest Radiograph. CLINICAL INDICATION: Respiratory failure TECHNIQUE: Single frontal chest radiograph. COMPARISON: Chest radiograph 03/11/2016 FINDINGS: An endotracheal tube remains in place with the distal tip approximately 2.5 cm above the francisco. Portillo ogastric tube remains in place with distal tip overlying the stomach, in radiographically appropriat e position.. A right upper extremity PICC is unchanged . The heart is magnified. The cardiomedias tinal silhouette appears stable compared to prior study. Extensive bilateral airspace disease is un changed in distribution and extent.. The bones are intact. IMPRESSION: 1. Stable radiographic appearance of the chest compared to 03/11/2016. RPTAT: KK .Ronni Mota MD, MD Date Time Electronically viewed and signed by .Ronni Mota MD, MD on 03/13/2016 08:59 .B/
[2016-03-13 09:29] LABS: EOSINOPHILS # 0.8 10^3/ul (0.0-0.5); LYMPHOCYTES # 0.8 10^3/ul (0.8-2.9); MONOCYTE # 1.9 10^3/ul (0.3-0.9); NEUTROPHIL # 15.7 10^3/ul (1.6-7.5)
--- NOTE | 2016-03-13 11:06 | CONS ---
Date/Time of Note Date/Time of Note DATE: 03/13/16 TIME: 11:03 Consult Date/Type/Reason Admit Date/Time Feb 18, 2016 at 09:14 Type of Consultation: pulmonary Ordering Provider: MOSES HARRIS MD Subjective Patient remains on mechanical ventilation intubated sedated Moderate oral secretions Currently on 100% FiO2 Hemodynamically stable Objective Vital Signs Date Time Temp Pulse Resp B/P Pulse Ox O2 Delivery O2 Flow Rate FiO2 03/13/16 10:00 73 30 126/61 93 Mechanical Ventilator 03/13/16 08:00 100 03/13/16 07:00 99.2 03/09/16 23:00 15.0 Intake and Output 03/12/16 03/12/16 03/13/16 15:00 23:00 07:00 Intake Total 1306.01 ml 1008.78 ml 1741.89 ml Output Total 970 ml 1020 ml 880 ml Balance 336.01 ml -11.22 ml 861.89 ml PHYSICAL EXAMINATION GENERAL: Well-nourished well-developed gentleman intubated on mechanical ventilation sedation VITAL SIGNS: see below. HEENT: Pupils equal, round, and reactive to light. CARDIAC: S1, S2, tachycardia. CHEST: Diminished air entry bilaterally. Few rales bilaterally ABDOMEN: Mildly distended. Obese soft nontender no guarding or rebound EXTREMITIES: No cyanosis, clubbing edema +2 NEUROLOGIC: Unable to assess Results/Medications Result Diagram: 03/13/16 0530 03/13/16 0530 Results 24 hrs Chest x-ray Consistent with ARDS Laboratory Tests Test 03/12/16 11:43 03/12/16 13:30 03/12/16 17:47 03/12/16 20:43 Bedside Glucose 182 163 Activated Partial Thromboplast Time 61.5 H 89.6 *H Vancomycin Level Trough 18.2 Test 03/12/16 23:47 03/13/16 01:48 03/13/16 05:30 03/13/16 05:43 Bedside Glucose 170 166 Activated Partial Thromboplast Time 87.9 *H Anion Gap 21 H Band Neutrophils % 7.0 H Blood Morphology Comment Blood Urea Nitrogen 36 H Calcium Level 8.7 Carbon Dioxide Level 23 Chloride Level 98 Creatinine 1.73 H Differential Comment MANUAL DIFF Eosinophils # 0.8 H Eosinophils % 4.0 Glucose Level 168 Hematocrit 23.8 L Hemoglobin 7.9 L Lymphocytes # 0.8 Lymphocytes % 4.0 L Magnesium Level 2.4 Mean Corpuscular Hemoglobin 26.4 L Mean Corpuscular Hemoglobin Concent 32.9 Mean Corpuscular Volume 80.2 L Mean Platelet Volume 10.1 Monocytes # 1.9 H Monocytes % 9.0 Neutrophils # 15.7 H Neutrophils % 76.0 Phosphorus Level 6.9 H Platelet Count 303 Potassium Level 4.1 Red Blood Count 2.97 L Red Cell Distribution Width 17.6 H Sodium Level 138 White Blood Count 20.6 H Test 03/13/16 07:39 Arterial Blood HCO3 24.9 Arterial Blood Base Excess -0.2 Arterial Blood Oxygen Saturation 92.1 L Jovanny Test ACCEPTAB Arterial Blood Gas Puncture Site Right Radial Arterial Blood Carboxyhemoglobin 0.2 Arterial Blood Date Drawn 03/13/2016 7:50:46 AM Arterial Blood Methemoglobin 0.2 Arterial Blood pCO2 (Temp correct) 42.8 Arterial Blood pH (Temp corrected) 7.383 Arterial Blood pO2 (Temp corrected) 69.6 L Blood Gas A-a O2 Differential 600.6 H Blood Gas Actual Respiration Rate 25 Blood Gas Low PEEP Setting 5.0 Blood Gas Modality VENT - AC Blood Gas Notified Time 03/13/2016 8:19:22 AM Blood Gas Notified Whom JLD Blood Gas Respiration Rate 20.0 Blood Gas Specimen Source Blood arterial Blood Gas Temperature 37.0 Blood Gas Tidal Volume 550.0 FiO2 100.0 Oxyhemoglobin Percent 91.7 L Total Hemoglobin 8.4 L Medications Current Medications Ondansetron HCl (Zofran Inj) 4 mg Q6H PRN IV NAUSEA AND/OR VOMITING; Start 02/18/16 at 09:30 Acetaminophen (Tylenol Supp) 650 mg Q4H PRN NC PAIN LEVEL 1-3 OR FEVER Last administered on 02/24/16at 14:32; Admin Dose 650 MG; Start 02/18/16 at 09:30 Morphine Sulfate (morphine) 2 mg Q4H PRN IV PAIN LEVEL 7-10 Last administered on 03/11/16at 16:13; Admin Dose 2 MG; Start 02/18/16 at 09:30 Bisacodyl (Dulcolax Supp) 10 mg DAILY PRN NC CONSTIPATION; Start 02/18/16 at 09 :30 Metoprolol Tartrate (Lopressor) 5 mg Q4H PRN IV HR>55 Hold SBP<100 Last administered on 03/09/16at 12:08; Admin Dose 5 MG; Start 02/21/16 at 11:30 IV Flush (NS 10 ml) 10 ml PRN PRN IV IV PROTOCOL; Start 02/21/16 at 18:30 Ferrous Sulfate (Feosol Liquid Cup) 300 mg BID GTB Last administered on at 08:53; Admin Dose 300 MG; Start 02/22/16 at 10:00 Lorazepam (Ativan) 1 mg Q1H PRN IV ANXIETY Last administered on 03/11/16at 16: 13; Admin Dose 1 MG; Start 02/23/16 at 11:30 Miscellaneous Information 1 ea NOTE XX ; Start 02/23/16 at 23:15 Glucose (Glutose) 22.5 gm Q15M PRN PO DECREASED GLUCOSE; Start 02/23/16 at 23: 15 Dextrose (D50w Syringe) 25 ml Q15M PRN IV DECREASED GLUCOSE; Start 02/23/16 at 23:15 Dextrose (D50w Syringe) 50 ml Q15M PRN IV DECREASED GLUCOSE; Start 02/23/16 at 23:15 Glucagon (Glucagen) 1 mg Q15M PRN IM DECREASED GLUCOSE; Start 02/23/16 at 23:15 Glucose (Glutose) 15 gm Q15M PRN BUCCAL DECREASED GLUCOSE; Start 02/23/16 at 23 :15 Metoclopramide HCl (Reglan) 10 mg Q6 IV Last administered on 03/13/16at 05:22; Admin Dose 10 MG; Start 03/04/16 at 06:00 Acetaminophen (Tylenol Tab) 650 mg Q6H PRN NGT PAIN AND OR ELEVATED TEMP Last administered on 03/12/16at 15:40; Admin Dose 650 MG; Start 03/06/16 at 11:30 Glucose (Glutose) 15 gm Q15M PRN NGT DECREASED GLUCOSE; Start 03/06/16 at 08: 45 Hydralazine HCl (Apresoline) 100 mg Q8 NGT Last administered on 03/13/16at 05: 26; Admin Dose 100 MG; Start 03/06/16 at 14:00 Metoprolol Tartrate (Lopressor) 150 mg Q8 NGT Last administered on 03/13/16at 05:26; Admin Dose 150 MG; Start 03/06/16 at 14:00 Hydralazine HCl 10 mg 10 mg Q4H PRN IV ELEVATED SYSTOLIC BP Last administered on 03/09/16 10:52; Admin Dose 10 MG; Start 03/06/16 at 16:00 Dextrose (D5W) 1,000 ml @ 80 mls/hr [id number] IV Last administered on 03:35; Admin Dose 80 MLS/HR; Start 03/08/16 at 11:30 Amlodipine Besylate (Norvasc) 10 mg DAILY PO Last administered on 03/13/16 08 :54; Admin Dose 10 MG; Start 03/09/16 at 17:00 Minoxidil 10 mg 10 mg BID NGT Last administered on 03/13/16 08:54; Admin Dose 10 MG; Start 03/09/16 at 21:00 Propofol (Diprivan) 100 ml @ 3.189 mls/ hr Q12H IV Last administered on 09:08; Admin Dose 31.89 MLS/HR; Start 03/10/16 at 00:00 Insulin Aspart NOVOLOG *MODERATE* ALGORI... Q6 SC Last administered on 05:47; Admin Dose 2 UNIT; Start 03/10/16 at 06:00 Levetiracetam/ Dextrose (Keppra Iv/D5W) 115 ml @ 460 mls/hr Q12 IVPB Last administered on 03/13/16 08:53; Admin Dose 460 MLS/HR; Start 03/11/16 at 21: 00 Diltiazem HCl (Cardizem) 90 mg Q8 PO Last administered on 03/13/16 05:24; Admin Dose 90 MG; Start 03/12/16 at 14:00 Fluconazole 100 mg 100 mg DAILY PO Last administered on 03/13/16 08:54; Admin Dose 100 MG; Start 03/12/16 at 14:30 Piperacillin Sod/ Tazobactam Sod (Zosyn 2.25gm/ 50ml (Pmx)) 50 ml @ 100 mls/hr Q8 IVPB Last administered on 03/13/16 05:31; Admin Dose 100 MLS/HR; Start at 15:00 Pantoprazole 40 mg 40 mg BID@06,18 IV ; Start 03/13/16 at 18:00 Vancomycin HCl/ Sodium Chloride (Vancocin/NS) 250 ml @ 83.333 mls/ hr Q24H IVPB ; Start 03/14/16 at 04:00 Assessment/Plan Chief Complaint/Hosp Course IMPRESSION 1. Hypertensive Emergency 2. Type B Aortic Dissection. No evidence on proximal dissection on recent CT neck and chest, 3. Encephalopathy, possibly secondary to antihypertensive medications. 4. Aspiration pneumonia versus healthcare associated pneumonia requiring reintubation 5. Pulmonary embolus 6. Renal insufficiency 7. Anemia RECS: 1. Vent support decrease FiO2 as tolerated 2. Continue BP control 3. Sedation vacation as tolerated. Switch from propofol to Versed and fentanyl 4. Replete lytes 5. Am CXR/ABG 6. Abx per ID 7. Anticoagulation per thoracic surgery prognosis guarded Tracheostomy for oxygenation does not improve Problems: ANAYA BREWSTER MD, [facility] Mar 13, 2016 11:06
--- NOTE | 2016-03-13 12:17 | CONS ---
Date/Time of Note Date/Time of Note DATE: 03/13/16 TIME: 12:15 Assessment/Plan Assessment/Plan Chief Complaint/Hosp Course Imp: 1.HTN emergency-NL EF by echo this admit-under reasonable control on PO medications only. Off all drips with well controlled BP/HR currently 2.Aortic dissection-type B again demonstrated by Chest CT 02/29/16 3.abnl ecg-lateral TWI-negative troponin x 3 since admit 4.anxiety 5.ARF 6. Pericardial effusion by echo-small with NL EF 7.Encephalopathic 8.Pulmonary embolism 9.Tachycardia-S tach-only when on sedation vacation 10.CHF-diastolic acute 11.Resp [id number] 12.Seizures-on keppra Recc: -Tele in ICU -Follow volume status closely -Wean vent as tolerated -serial ecg's -Continue PO BB/CCB/minoxidil/hydralazine/diltiazem for now -ongoing surgical follow-up -f/u MS closely -Lasix diuresis -Continue heparin for now for PE -Continue keppra for seizures Problems: Consultation Date/Type/Reason Admit Date/Time Feb 18, 2016 at 09:14 Initial Consult Date 02/19/2016 Type of Consultation: Cardiology Reason for Consultation HTN/dissection Referring Provider: MOSES HARRIS MD Exam/Review of Systems Vital Signs Vitals Vital Signs Date Time Temp Pulse Resp B/P Pulse Ox O2 Delivery O2 Flow Rate FiO2 03/13/16 12:00 70 03/13/16 10:00 30 126/61 93 Mechanical Ventilator 03/13/16 08:00 100 03/13/16 07:00 99.2 03/09/16 23:00 15.0 Intake and Output 03/12/16 03/12/16 03/13/16 15:00 23:00 07:00 Intake Total 1306.01 ml 1008.78 ml 1741.89 ml Output Total 970 ml 1020 ml 880 ml Balance 336.01 ml -11.22 ml 861.89 ml Exam Review of Systems: CONSTITUTIONAL: No fevers, chills. PULMONARY: intubated CARDIOVASCULAR: No obvious chest pain/palpitations GASTROINTESTINAL: No nausea/vomiting. GENITOURINARY: No hematuria/dysuria. MUSCULOSKELETAL: No obvious myagias/arthalgias. PSYCHIATRIC: The patient denies depression. NEUROLOGIC: sedated Constitutional: other (sedated) Head: normocephalic ENMT: mucosa pink and moist Neck: jvd (9 cm water), supple Respiratory: diminished breath sounds (at bases/B) Cardiovascular: regular rate and rhythm Gastrointestinal: non-tender, soft Musculoskeletal: muscle tone (normal) Extremities: edema (trace/B) Neurological: other (sedated) Results Result Diagram: 03/13/16 0530 03/13/16 0530 Results 24 hrs Laboratory Tests Test 03/12/16 13:30 03/12/16 17:47 03/12/16 20:43 03/12/16 23:47 Activated Partial Thromboplast Time 61.5 H 89.6 *H Bedside Glucose 163 170 Vancomycin Level Trough 18.2 Test 03/13/16 01:48 03/13/16 05:30 03/13/16 05:43 03/13/16 07:39 Activated Partial Thromboplast Time 87.9 *H Anion Gap 21 H Band Neutrophils % 7.0 H Blood Morphology Comment Blood Urea Nitrogen 36 H Calcium Level 8.7 Carbon Dioxide Level 23 Chloride Level 98 Creatinine 1.73 H Differential Comment MANUAL DIFF Eosinophils # 0.8 H Eosinophils % 4.0 Glucose Level 168 Hematocrit 23.8 L Hemoglobin 7.9 L Lymphocytes # 0.8 Lymphocytes % 4.0 L Magnesium Level 2.4 Mean Corpuscular Hemoglobin 26.4 L Mean Corpuscular Hemoglobin Concent 32.9 Mean Corpuscular Volume 80.2 L Mean Platelet Volume 10.1 Monocytes # 1.9 H Monocytes % 9.0 Neutrophils # 15.7 H Neutrophils % 76.0 Phosphorus Level 6.9 H Platelet Count 303 Potassium Level 4.1 Red Blood Count 2.97 L Red Cell Distribution Width 17.6 H Sodium Level 138 White Blood Count 20.6 H Bedside Glucose 166 Arterial Blood HCO3 24.9 Arterial Blood Base Excess -0.2 Arterial Blood Oxygen Saturation 92.1 L Jovanny Test ACCEPTAB Arterial Blood Gas Puncture Site Right Radial Arterial Blood Carboxyhemoglobin 0.2 Arterial Blood Date Drawn 03/13/2016 7:50:46 AM Arterial Blood Methemoglobin 0.2 Arterial Blood pCO2 (Temp correct) 42.8 Arterial Blood pH (Temp corrected) 7.383 Arterial Blood pO2 (Temp corrected) 69.6 L Blood Gas A-a O2 Differential 600.6 H Blood Gas Actual Respiration Rate 25 Blood Gas Low PEEP Setting 5.0 Blood Gas Modality VENT - AC Blood Gas Notified Time 03/13/2016 8:19:22 AM Blood Gas Notified Whom JLD Blood Gas Respiration Rate 20.0 Blood Gas Specimen Source Blood arterial Blood Gas Temperature 37.0 Blood Gas Tidal Volume 550.0 FiO2 100.0 Oxyhemoglobin Percent 91.7 L Total Hemoglobin 8.4 L Test 03/13/16 11:56 Bedside Glucose 169 Medications Medications Current Medications Ondansetron HCl (Zofran Inj) 4 mg Q6H PRN IV NAUSEA AND/OR VOMITING; Start 02/18/16 at 09:30 Acetaminophen (Tylenol Supp) 650 mg Q4H PRN NC PAIN LEVEL 1-3 OR FEVER Last administered on 02/24/16at 14:32; Admin Dose 650 MG; Start 02/18/16 at 09:30 Morphine Sulfate (morphine) 2 mg Q4H PRN IV PAIN LEVEL 7-10 Last administered on 03/11/16at 16:13; Admin Dose 2 MG; Start 02/18/16 at 09:30 Bisacodyl (Dulcolax Supp) 10 mg DAILY PRN NC CONSTIPATION; Start 02/18/16 at 09 :30 Metoprolol Tartrate (Lopressor) 5 mg Q4H PRN IV HR>55 Hold SBP<100 Last administered on 03/09/16at 12:08; Admin Dose 5 MG; Start 02/21/16 at 11:30 IV Flush (NS 10 ml) 10 ml PRN PRN IV IV PROTOCOL; Start 02/21/16 at 18:30 Ferrous Sulfate (Feosol Liquid Cup) 300 mg BID GTB Last administered on at 08:53; Admin Dose 300 MG; Start 02/22/16 at 10:00 Lorazepam (Ativan) 1 mg Q1H PRN IV ANXIETY Last administered on 03/11/16at 16: 13; Admin Dose 1 MG; Start 02/23/16 at 11:30 Miscellaneous Information 1 ea NOTE XX ; Start 02/23/16 at 23:15 Glucose (Glutose) 22.5 gm Q15M PRN PO DECREASED GLUCOSE; Start 02/23/16 at 23: 15 Dextrose (D50w Syringe) 25 ml Q15M PRN IV DECREASED GLUCOSE; Start 02/23/16 at 23:15 Dextrose (D50w Syringe) 50 ml Q15M PRN IV DECREASED GLUCOSE; Start 02/23/16 at 23:15 Glucagon (Glucagen) 1 mg Q15M PRN IM DECREASED GLUCOSE; Start 02/23/16 at 23:15 Glucose (Glutose) 15 gm Q15M PRN BUCCAL DECREASED GLUCOSE; Start 02/23/16 at 23 :15 Metoclopramide HCl (Reglan) 10 mg Q6 IV Last administered on 03/13/16at 11:58; Admin Dose 10 MG; Start 03/04/16 at 06:00 Acetaminophen (Tylenol Tab) 650 mg Q6H PRN NGT PAIN AND OR ELEVATED TEMP Last administered on 03/12/16at 15:40; Admin Dose 650 MG; Start 03/06/16 at 11:30 Glucose (Glutose) 15 gm Q15M PRN NGT DECREASED GLUCOSE; Start 03/06/16 at 08: 45 Hydralazine HCl (Apresoline) 100 mg Q8 NGT Last administered on 03/13/16at 05: 26; Admin Dose 100 MG; Start 03/06/16 at 14:00 Metoprolol Tartrate (Lopressor) 150 mg Q8 NGT Last administered on 03/13/16at 05:26; Admin Dose 150 MG; Start 03/06/16 at 14:00 Hydralazine HCl 10 mg 10 mg Q4H PRN IV ELEVATED SYSTOLIC BP Last administered on 03/09/16at 10:52; Admin Dose 10 MG; Start 03/06/16 at 16:00 Dextrose (D5W) 1,000 ml @ 80 mls/hr [id number] IV Last administered on at 03:35; Admin Dose 80 MLS/HR; Start 03/08/16 at 11:30 Amlodipine Besylate (Norvasc) 10 mg DAILY PO Last administered on 03/13/16at 08 :54; Admin Dose 10 MG; Start 03/09/16 at 17:00 Minoxidil 10 mg 10 mg BID NGT Last administered on 03/13/16at 08:54; Admin Dose 10 MG; Start 03/09/16 at 21:00 Propofol (Diprivan) 100 ml @ 3.189 mls/ hr Q12H IV Last administered on at 09:08; Admin Dose 31.89 MLS/HR; Start 03/10/16 at 00:00 Insulin Aspart NOVOLOG *MODERATE* ALGORI... Q6 SC Last administered on at 12:05; Admin Dose 2 UNIT; Start 03/10/16 at 06:00 Levetiracetam/ Dextrose (Keppra Iv/D5W) 115 ml @ 460 mls/hr Q12 IVPB Last administered on 03/13/16at 08:53; Admin Dose 460 MLS/HR; Start 03/11/16 at 21: 00 Diltiazem HCl (Cardizem) 90 mg Q8 PO Last administered on 03/13/16at 05:24; Admin Dose 90 MG; Start 03/12/16 at 14:00 Fluconazole 100 mg 100 mg DAILY PO Last administered on 03/13/16at 08:54; Admin Dose 100 MG; Start 03/12/16 at 14:30 Piperacillin Sod/ Tazobactam Sod (Zosyn 2.25gm/ 50ml (Pmx)) 50 ml @ 100 mls/hr Q8 IVPB Last administered on 03/13/16at 05:31; Admin Dose 100 MLS/HR; Start at 15:00 Pantoprazole 40 mg 40 mg BID@06,18 IV ; Start 03/13/16 at 18:00 Vancomycin HCl/ Sodium Chloride (Vancocin/NS) 250 ml @ 83.333 mls/ hr Q24H IVPB ; Start 03/14/16 at 04:00 JUNAID PAZ Mar 13, 2016 12:17
[2016-03-13 12:20] LABS: HEMATOCRIT 21.6 % (42.0-52.0); HEMOGLOBIN 7.2 g/dl (14.0-18.0)
[2016-03-13] MEDS: FUROSEMIDE 20 MG INJ IV SCH ×2 (12:20→17:37)
--- NOTE | 2016-03-13 14:05 | CONS ---
Date/Time of Note Date/Time of Note DATE: 03/13/16 TIME: 14:03 Consult Date/Type/Reason Admit Date/Time Feb 18, 2016 at 09:14 Initial Consult Date 02/26/16 Type of Consultation: ID Ordering Provider: MOSES HARRIS MD Subjective no events, intubated, TF on hold 2 to residuals, no fevers, nad, on Hepatin/ Versed gtts Objective Vital Signs Date Time Temp Pulse Resp B/P Pulse Ox O2 Delivery O2 Flow Rate FiO2 03/13/16 12:00 70 03/13/16 12:00 99.0 31 121/59 95 Mechanical Ventilator 03/13/16 11:40 100 03/09/16 23:00 15.0 Intake and Output 03/12/16 03/12/16 03/13/16 15:00 23:00 07:00 Intake Total 1306.01 ml 1008.78 ml 1751.89 ml Output Total 970 ml 1020 ml 890 ml Balance 336.01 ml -11.22 ml 861.89 ml Results/Medications Result Diagram: 03/13/16 1210 03/13/16 0530 Results 24 hrs Laboratory Tests Test 03/12/16 17:47 03/12/16 20:43 03/12/16 23:47 03/13/16 01:48 Bedside Glucose 163 170 Activated Partial Thromboplast Time 89.6 *H 87.9 *H Vancomycin Level Trough 18.2 Test 03/13/16 05:30 03/13/16 05:43 03/13/16 07:39 03/13/16 11:56 Anion Gap 21 H Band Neutrophils % 7.0 H Blood Morphology Comment Blood Urea Nitrogen 36 H Calcium Level 8.7 Carbon Dioxide Level 23 Chloride Level 98 Creatinine 1.73 H Differential Comment MANUAL DIFF Eosinophils # 0.8 H Eosinophils % 4.0 Glucose Level 168 Hematocrit 23.8 L Hemoglobin 7.9 L Lymphocytes # 0.8 Lymphocytes % 4.0 L Magnesium Level 2.4 Mean Corpuscular Hemoglobin 26.4 L Mean Corpuscular Hemoglobin Concent 32.9 Mean Corpuscular Volume 80.2 L Mean Platelet Volume 10.1 Monocytes # 1.9 H Monocytes % 9.0 Neutrophils # 15.7 H Neutrophils % 76.0 Phosphorus Level 6.9 H Platelet Count 303 Potassium Level 4.1 Red Blood Count 2.97 L Red Cell Distribution Width 17.6 H Sodium Level 138 White Blood Count 20.6 H Bedside Glucose 166 169 Arterial Blood HCO3 24.9 Arterial Blood Base Excess -0.2 Arterial Blood Oxygen Saturation 92.1 L Jovanny Test ACCEPTAB Arterial Blood Gas Puncture Site Right Radial Arterial Blood Carboxyhemoglobin 0.2 Arterial Blood Date Drawn 03/13/2016 7:50:46 AM Arterial Blood Methemoglobin 0.2 Arterial Blood pCO2 (Temp correct) 42.8 Arterial Blood pH (Temp corrected) 7.383 Arterial Blood pO2 (Temp corrected) 69.6 L Blood Gas A-a O2 Differential 600.6 H Blood Gas Actual Respiration Rate 25 Blood Gas Low PEEP Setting 5.0 Blood Gas Modality VENT - AC Blood Gas Notified Time 03/13/2016 8:19:22 AM Blood Gas Notified Whom JLD Blood Gas Respiration Rate 20.0 Blood Gas Specimen Source Blood arterial Blood Gas Temperature 37.0 Blood Gas Tidal Volume 550.0 FiO2 100.0 Oxyhemoglobin Percent 91.7 L Total Hemoglobin 8.4 L Test 03/13/16 12:10 Hematocrit 21.6 L Hemoglobin 7.2 L Medications Current Medications Ondansetron HCl (Zofran Inj) 4 mg Q6H PRN IV NAUSEA AND/OR VOMITING; Start 02/18/16 at 09:30 Acetaminophen (Tylenol Supp) 650 mg Q4H PRN DC PAIN LEVEL 1-3 OR FEVER Last administered on 02/24/16at 14:32; Admin Dose 650 MG; Start 02/18/16 at 09:30 Morphine Sulfate (morphine) 2 mg Q4H PRN IV PAIN LEVEL 7-10 Last administered on 03/11/16at 16:13; Admin Dose 2 MG; Start 02/18/16 at 09:30 Bisacodyl (Dulcolax Supp) 10 mg DAILY PRN DC CONSTIPATION; Start 02/18/16 at 09 :30 Metoprolol Tartrate (Lopressor) 5 mg Q4H PRN IV HR>55 Hold SBP<100 Last administered on 03/09/16at 12:08; Admin Dose 5 MG; Start 02/21/16 at 11:30 IV Flush (NS 10 ml) 10 ml PRN PRN IV IV PROTOCOL; Start 02/21/16 at 18:30 Ferrous Sulfate (Feosol Liquid Cup) 300 mg BID GTB Last administered on at 08:53; Admin Dose 300 MG; Start 02/22/16 at 10:00 Lorazepam (Ativan) 1 mg Q1H PRN IV ANXIETY Last administered on 03/11/16at 16: 13; Admin Dose 1 MG; Start 02/23/16 at 11:30 Miscellaneous Information 1 ea NOTE XX ; Start 02/23/16 at 23:15 Glucose (Glutose) 22.5 gm Q15M PRN PO DECREASED GLUCOSE; Start 02/23/16 at 23: 15 Dextrose (D50w Syringe) 25 ml Q15M PRN IV DECREASED GLUCOSE; Start 02/23/16 at 23:15 Dextrose (D50w Syringe) 50 ml Q15M PRN IV DECREASED GLUCOSE; Start 02/23/16 at 23:15 Glucagon (Glucagen) 1 mg Q15M PRN IM DECREASED GLUCOSE; Start 02/23/16 at 23:15 Glucose (Glutose) 15 gm Q15M PRN BUCCAL DECREASED GLUCOSE; Start 02/23/16 at 23 :15 Metoclopramide HCl (Reglan) 10 mg Q6 IV Last administered on 03/13/16at 11:58; Admin Dose 10 MG; Start 03/04/16 at 06:00 Acetaminophen (Tylenol Tab) 650 mg Q6H PRN NGT PAIN AND OR ELEVATED TEMP Last administered on 03/12/16at 15:40; Admin Dose 650 MG; Start 03/06/16 at 11:30 Glucose (Glutose) 15 gm Q15M PRN NGT DECREASED GLUCOSE; Start 03/06/16 at 08: 45 Hydralazine HCl (Apresoline) 100 mg Q8 NGT Last administered on 03/13/16at 05: 26; Admin Dose 100 MG; Start 03/06/16 at 14:00 Metoprolol Tartrate (Lopressor) 150 mg Q8 NGT Last administered on 03/13/16at 05:26; Admin Dose 150 MG; Start 03/06/16 at 14:00 Hydralazine HCl 10 mg 10 mg Q4H PRN IV ELEVATED SYSTOLIC BP Last administered on 03/09/16at 10:52; Admin Dose 10 MG; Start 03/06/16 at 16:00 Dextrose (D5W) 1,000 ml @ 80 mls/hr [id number] IV Last administered on 03:35; Admin Dose 80 MLS/HR; Start 03/08/16 at 11:30 Amlodipine Besylate (Norvasc) 10 mg DAILY PO Last administered on 03/13/16 08 :54; Admin Dose 10 MG; Start 03/09/16 at 17:00 Minoxidil 10 mg 10 mg BID NGT Last administered on 03/13/16 08:54; Admin Dose 10 MG; Start 03/09/16 at 21:00 Propofol (Diprivan) 100 ml @ 3.189 mls/ hr Q12H IV Last administered on 12:27; Admin Dose 31.89 MLS/HR; Start 03/10/16 at 00:00 Insulin Aspart NOVOLOG *MODERATE* ALGORI... Q6 SC Last administered on 12:05; Admin Dose 2 UNIT; Start 03/10/16 at 06:00 Levetiracetam/ Dextrose (Keppra Iv/D5W) 115 ml @ 460 mls/hr Q12 IVPB Last administered on 03/13/16at 08:53; Admin Dose 460 MLS/HR; Start 03/11/16 at 21: 00 Diltiazem HCl (Cardizem) 90 mg Q8 PO Last administered on 03/13/16 05:24; Admin Dose 90 MG; Start 03/12/16 at 14:00 Fluconazole 100 mg 100 mg DAILY PO Last administered on 03/13/16 08:54; Admin Dose 100 MG; Start 03/12/16 at 14:30 Piperacillin Sod/ Tazobactam Sod (Zosyn 2.25gm/ 50ml (Pmx)) 50 ml @ 100 mls/hr Q8 IVPB Last administered on 03/13/16 05:31; Admin Dose 100 MLS/HR; Start at 15:00 Pantoprazole 40 mg 40 mg BID@06,18 IV ; Start 03/13/16 at 18:00 Vancomycin HCl/ Sodium Chloride (Vancocin/NS) 250 ml @ 83.333 mls/ hr Q24H IVPB ; Start 03/14/16 at 04:00 Assessment/Plan Chief Complaint/Hosp Course MICROBIOLOGY: Urine, sputum and blood cultures are negative INDWELLINGS: Endotracheal tube, NG tube, Smalls catheter, PICC line placed on . ANTIMICROBIALS: 1. Vancomycin. 2. Zosyn. 3. Diflucan PHYSICAL EXAMINATION: GENERAL: This is an obese, well-developed, middle aged -[place] male who was lying comfortably in bed. HEENT: Head atraumatic, normocephalic. Sclera anicteric. Buccal mucosa dry. The patient had some white thrush on his tongue. NECK: Obese. CHEST: Rise symmetrical. Breath sounds diminished to bases. HEART: S1, S2. ABDOMEN: Obese, soft. Bowel tones hyperactive. EXTREMITIES: With bilateral edema. ASSESSMENT: 1. Sepsis with fevers and leukocytosis ?etiology==> cultures have been negative. 2. Probable aspiration pneumonia, status post recurrent intubation. 3. Acute encephalopathy. 4. Accelerated hypertension. 5. Seizure disorder. 6. Type B aortic dissection. 7. Pulmonary emboli, remains on heparin drip. 8. Oral thrush PLAN: The patient remains unchanged, with on/off fevers and leukocytosis, cultures are negative since admission. Continue abx, f/u procalcitonin level, consider diagnostic CT chest/abdomen/pelvis DW staff Problems: HUSAM SANFORD NP Mar 13, 2016 14:05
[2016-03-13] MEDS: LORAZEPAM 2 MG INJ IV PRN (14:10)
[2016-03-13] MEDS: ACETAMINOPHEN 325 MG TAB NGT PRN (14:33)
--- NOTE | 2016-03-13 15:10 | CONS ---
Date/Time of Note Date/Time of Note DATE: 03/13/16 TIME: 15:06 Consult Date/Type/Reason Admit Date/Time Feb 18, 2016 at 09:14 Initial Consult Date 02/26/16 Type of Consultation: Neurology Reason for Consultation evaluate for anoxia, seizure management Ordering Provider: MOSES HARRIS MD Subjective on propofol, per nurse when weaned off sedation unable to open his eyes, no purposeful movement does not tolerate weaning well, no movement noted in arms and legs Objective Vital Signs Date Time Temp Pulse Resp B/P Pulse Ox O2 Delivery O2 Flow Rate FiO2 03/13/16 14:00 87 30 124/56 97 Mechanical Ventilator 03/13/16 12:00 99.0 03/13/16 11:40 100 03/09/16 23:00 15.0 Intake and Output 03/12/16 03/12/16 03/13/16 15:00 23:00 07:00 Intake Total 1306.01 ml 1008.78 ml 1751.89 ml Output Total 970 ml 1020 ml 890 ml Balance 336.01 ml -11.22 ml 861.89 ml Limited exam due to sedation on propofol drip unable to open eyes spontaneously, no spontaneous movement noted has corneals and gag reflex no muscle fasiculations seen today Results/Medications Result Diagram: 03/13/16 1210 03/13/16 0530 Results 24 hrs Laboratory Tests Test 03/12/16 17:47 03/12/16 20:43 03/12/16 23:47 03/13/16 01:48 Bedside Glucose 163 170 Activated Partial Thromboplast Time 89.6 *H 87.9 *H Vancomycin Level Trough 18.2 Test 03/13/16 05:30 03/13/16 05:43 03/13/16 07:39 03/13/16 11:56 Anion Gap 21 H Band Neutrophils % 7.0 H Blood Morphology Comment Blood Urea Nitrogen 36 H Calcium Level 8.7 Carbon Dioxide Level 23 Chloride Level 98 Creatinine 1.73 H Differential Comment MANUAL DIFF Eosinophils # 0.8 H Eosinophils % 4.0 Glucose Level 168 Hematocrit 23.8 L Hemoglobin 7.9 L Lymphocytes # 0.8 Lymphocytes % 4.0 L Magnesium Level 2.4 Mean Corpuscular Hemoglobin 26.4 L Mean Corpuscular Hemoglobin Concent 32.9 Mean Corpuscular Volume 80.2 L Mean Platelet Volume 10.1 Monocytes # 1.9 H Monocytes % 9.0 Neutrophils # 15.7 H Neutrophils % 76.0 Phosphorus Level 6.9 H Platelet Count 303 Potassium Level 4.1 Red Blood Count 2.97 L Red Cell Distribution Width 17.6 H Sodium Level 138 White Blood Count 20.6 H Bedside Glucose 166 169 Arterial Blood HCO3 24.9 Arterial Blood Base Excess -0.2 Arterial Blood Oxygen Saturation 92.1 L Jovanny Test ACCEPTAB Arterial Blood Gas Puncture Site Right Radial Arterial Blood Carboxyhemoglobin 0.2 Arterial Blood Date Drawn 03/13/2016 7:50:46 AM Arterial Blood Methemoglobin 0.2 Arterial Blood pCO2 (Temp correct) 42.8 Arterial Blood pH (Temp corrected) 7.383 Arterial Blood pO2 (Temp corrected) 69.6 L Blood Gas A-a O2 Differential 600.6 H Blood Gas Actual Respiration Rate 25 Blood Gas Low PEEP Setting 5.0 Blood Gas Modality VENT - AC Blood Gas Notified Time 03/13/2016 8:19:22 AM Blood Gas Notified Whom JLD Blood Gas Respiration Rate 20.0 Blood Gas Specimen Source Blood arterial Blood Gas Temperature 37.0 Blood Gas Tidal Volume 550.0 FiO2 100.0 Oxyhemoglobin Percent 91.7 L Total Hemoglobin 8.4 L Test 03/13/16 12:10 03/13/16 14:30 Hematocrit 21.6 L Hemoglobin 7.2 L Lactic Acid Level 1.0 Medications Current Medications Ondansetron HCl (Zofran Inj) 4 mg Q6H PRN IV NAUSEA AND/OR VOMITING; Start 02/18/16 at 09:30 Acetaminophen (Tylenol Supp) 650 mg Q4H PRN [place] PAIN LEVEL 1-3 OR FEVER Last administered on 02/24/16at 14:32; Admin Dose 650 MG; Start 02/18/16 at 09:30 Morphine Sulfate (morphine) 2 mg Q4H PRN IV PAIN LEVEL 7-10 Last administered on 03/11/16at 16:13; Admin Dose 2 MG; Start 02/18/16 at 09:30 Bisacodyl (Dulcolax Supp) 10 mg DAILY PRN [place] CONSTIPATION; Start 02/18/16 at 09 :30 Metoprolol Tartrate (Lopressor) 5 mg Q4H PRN IV HR>55 Hold SBP<100 Last administered on 03/09/16at 12:08; Admin Dose 5 MG; Start 02/21/16 at 11:30 IV Flush (NS 10 ml) 10 ml PRN PRN IV IV PROTOCOL; Start 02/21/16 at 18:30 Ferrous Sulfate (Feosol Liquid Cup) 300 mg BID GTB Last administered on at 08:53; Admin Dose 300 MG; Start 02/22/16 at 10:00 Lorazepam (Ativan) 1 mg Q1H PRN IV ANXIETY Last administered on 03/13/16at 14: 10; Admin Dose 1 MG; Start 02/23/16 at 11:30 Miscellaneous Information 1 ea NOTE XX ; Start 02/23/16 at 23:15 Glucose (Glutose) 22.5 gm Q15M PRN PO DECREASED GLUCOSE; Start 02/23/16 at 23: 15 Dextrose (D50w Syringe) 25 ml Q15M PRN IV DECREASED GLUCOSE; Start 02/23/16 at 23:15 Dextrose (D50w Syringe) 50 ml Q15M PRN IV DECREASED GLUCOSE; Start 02/23/16 at 23:15 Glucagon (Glucagen) 1 mg Q15M PRN IM DECREASED GLUCOSE; Start 02/23/16 at 23:15 Glucose (Glutose) 15 gm Q15M PRN BUCCAL DECREASED GLUCOSE; Start 02/23/16 at 23 :15 Metoclopramide HCl (Reglan) 10 mg Q6 IV Last administered on 03/13/16at 11:58; Admin Dose 10 MG; Start 03/04/16 at 06:00 Acetaminophen (Tylenol Tab) 650 mg Q6H PRN NGT PAIN AND OR ELEVATED TEMP Last administered on 03/13/16at 14:33; Admin Dose 650 MG; Start 03/06/16 at 11:30 Glucose (Glutose) 15 gm Q15M PRN NGT DECREASED GLUCOSE; Start 03/06/16 at 08: 45 Hydralazine HCl (Apresoline) 100 mg Q8 NGT Last administered on 03/13/16at 05: 26; Admin Dose 100 MG; Start 03/06/16 at 14:00 Metoprolol Tartrate (Lopressor) 150 mg Q8 NGT Last administered on 03/13/16at 05:26; Admin Dose 150 MG; Start 03/06/16 at 14:00 Hydralazine HCl 10 mg 10 mg Q4H PRN IV ELEVATED SYSTOLIC BP Last administered on 03/09/16 10:52; Admin Dose 10 MG; Start 03/06/16 at 16:00 Dextrose (D5W) 1,000 ml @ 80 mls/hr [id number] IV Last administered on 03:35; Admin Dose 80 MLS/HR; Start 03/08/16 at 11:30 Amlodipine Besylate (Norvasc) 10 mg DAILY PO Last administered on 03/13/16 08 :54; Admin Dose 10 MG; Start 03/09/16 at 17:00 Minoxidil 10 mg 10 mg BID NGT Last administered on 03/13/16 08:54; Admin Dose 10 MG; Start 03/09/16 at 21:00 Propofol (Diprivan) 100 ml @ 3.189 mls/ hr Q12H IV Last administered on 12:27; Admin Dose 31.89 MLS/HR; Start 03/10/16 at 00:00 Insulin Aspart NOVOLOG *MODERATE* ALGORI... Q6 SC Last administered on 12:05; Admin Dose 2 UNIT; Start 03/10/16 at 06:00 Levetiracetam/ Dextrose (Keppra Iv/D5W) 115 ml @ 460 mls/hr Q12 IVPB Last administered on 03/13/16 08:53; Admin Dose 460 MLS/HR; Start 03/11/16 at 21: 00 Diltiazem HCl (Cardizem) 90 mg Q8 PO Last administered on 03/13/16 05:24; Admin Dose 90 MG; Start 03/12/16 at 14:00 Fluconazole 100 mg 100 mg DAILY PO Last administered on 03/13/16 08:54; Admin Dose 100 MG; Start 03/12/16 at 14:30 Piperacillin Sod/ Tazobactam Sod (Zosyn 2.25gm/ 50ml (Pmx)) 50 ml @ 100 mls/hr Q8 IVPB Last administered on 03/13/16 14:04; Admin Dose 100 MLS/HR; Start at 15:00 Pantoprazole 40 mg 40 mg BID@06,18 IV ; Start 03/13/16 at 18:00 Vancomycin HCl/ Sodium Chloride (Vancocin/NS) 250 ml @ 83.333 mls/ hr Q24H IVPB ; Start 03/14/16 at 04:00 Assessment/Plan Chief Complaint/Hosp Course 45 y/o M admitted for management of hypertensive emergency, with aortic dissection, FARRUKH, aspiration pneumonia and respiratory failure, briefly extubated requiring re-intubation. Tremors were noted over the weekend, dose of Keppra was increased to [address] on 02/22 unrevealing shows chronic microvascular changes, no acute ischemic changes/ hemorrhage. Repeat Head CT: no ICH, mass effect or midline shift, increase in ventricle size likely related to improving cerebral edema. Recommendations: -continue frequent neuro exams off sedation -Routine EEG shows left frontal sharps continue on Keppra 1500 mg BID -would obtain repeat CTH to r/o structural reason for seizures -when patient is more stable please obtain MRI Brain without contrast, MRA Head/ Neck without contrast to evaluate for areas of ischemia/ structural abnormalities Problems: JAIRON MCNAIR MD Mar 13, 2016 15:10
[2016-03-13] MEDS: FENTAnyl 1,000 MCG in DEXTROSE 5% 80 ML IV SCH (18:21)
[2016-03-13 19:08] LABS: HEMATOCRIT 21.5 % (42.0-52.0); HEMOGLOBIN 7.4 g/dl (14.0-18.0)
--- NOTE | 2016-03-13 19:27 | PN ---
Date/Time of Note Date/Time of Note DATE: 03/13/16 TIME: 19:26 Assessment/Plan Lines/Catheters IV Catheter Type (from Nrs): PICC Line Smalls in Place (from Nrsg): Yes Assessment/Plan Chief Complaint/Hosp Course IMPRESSION: Type B aortic dissection. The patient's blood pressure more controlled RECOMMENDATIONS: At this time, we would continue blood pressure management, monitor vital signs and laboratory values in an intensive care unit setting. Vent support per pulm medicine No plan for surgery. Abx Repeat CTA Dissection involving the thoracic aorta arising distal to the origin of the left subclavian artery and extending into the abdominal aorta. The distal extent was not included on the study. Flow within both true and false lumen to the level of the celiac artery. Would continue BP control , Vent support Type B aortic dissection PE, anticoagulation follow neurology recc. no plan for surgery at this time I discussed with the patient and Dr. Mccabe and staff Problems: Subjective 24 Hr Interval Summary Constitutional: improved Pain Control: mild Exam/Review of Systems Vital Signs Vitals Vital Signs Date Time Temp Pulse Resp B/P Pulse Ox O2 Delivery O2 Flow Rate FiO2 03/13/16 19:00 92 30 128/52 97 Mechanical Ventilator 03/13/16 17:40 100 03/13/16 16:00 99.7 03/09/16 23:00 15.0 Intake and Output 03/12/16 03/12/16 03/13/16 15:00 23:00 07:00 Intake Total 1306.01 ml 1008.78 ml 1751.89 ml Output Total 970 ml 1020 ml 890 ml Balance 336.01 ml -11.22 ml 861.89 ml Exam Neck: non-tender, supple Respiratory: clear to auscultation, normal air movement Cardiovascular: nl pulses, regular rate and rhythm Results Result Diagram: 03/13/16 1850 03/13/16 0530 KAYLYN RADFORD MD Mar 13, 2016 19:27
--- NOTE | 2016-03-13 19:30 | CONS ---
Date/Time of Note Date/Time of Note DATE: 03/13/16 TIME: 19:29 Assessment/Plan Assessment/Plan Chief Complaint/Hosp Course Assessment/Plan 1. Acute kidney injury, likely secondary to acute tubular necrosis from contrast-induced nephropathy and also secondary to ischemic acute tubular necrosis from aortic dissection.stable 2. A type B Helio aortic dissection. 3. Hypertension 4. acute resp failiure intubated on ventilator 5 edema on lasix 6 hypernatremia BETTER plan F/U LYTES per pulmonary lasix Problems: Consultation Date/Type/Reason Admit Date/Time Feb 18, 2016 at 09:14 Initial Consult Date 02/26/16 Type of Consultation: renal Referring Provider: MOSES HARRIS MD 24 HR Interval Summary Subjective hx not possible: pt non-verbal Exam/Review of Systems Vital Signs Vitals Vital Signs Date Time Temp Pulse Resp B/P Pulse Ox O2 Delivery O2 Flow Rate FiO2 03/13/16 19:00 92 30 128/52 97 Mechanical Ventilator 03/13/16 17:40 100 03/13/16 16:00 99.7 03/09/16 23:00 15.0 Intake and Output 03/12/16 03/12/16 03/13/16 15:00 23:00 07:00 Intake Total 1306.01 ml 1008.78 ml 1751.89 ml Output Total 970 ml 1020 ml 890 ml Balance 336.01 ml -11.22 ml 861.89 ml Exam Respiratory: diminished breath sounds Cardiovascular: regular rate and rhythm Gastrointestinal: bowel sounds (+), soft Extremities: edema (++) Results Result Diagram: 03/13/16 1850 03/13/16 0530 Results 24 hrs Laboratory Tests Test 03/12/16 20:43 03/12/16 23:47 03/13/16 01:48 03/13/16 05:30 Activated Partial Thromboplast Time 89.6 *H 87.9 *H Vancomycin Level Trough 18.2 Bedside Glucose 170 Anion Gap 21 H Band Neutrophils % 7.0 H Blood Morphology Comment Blood Urea Nitrogen 36 H Calcium Level 8.7 Carbon Dioxide Level 23 Chloride Level 98 Creatinine 1.73 H Differential Comment MANUAL DIFF Eosinophils # 0.8 H Eosinophils % 4.0 Glucose Level 168 Hematocrit 23.8 L Hemoglobin 7.9 L Lymphocytes # 0.8 Lymphocytes % 4.0 L Magnesium Level 2.4 Mean Corpuscular Hemoglobin 26.4 L Mean Corpuscular Hemoglobin Concent 32.9 Mean Corpuscular Volume 80.2 L Mean Platelet Volume 10.1 Monocytes # 1.9 H Monocytes % 9.0 Neutrophils # 15.7 H Neutrophils % 76.0 Phosphorus Level 6.9 H Platelet Count 303 Potassium Level 4.1 Red Blood Count 2.97 L Red Cell Distribution Width 17.6 H Sodium Level 138 White Blood Count 20.6 H Test 03/13/16 05:43 03/13/16 07:39 03/13/16 11:56 03/13/16 12:10 Bedside Glucose 166 169 Arterial Blood HCO3 24.9 Arterial Blood Base Excess -0.2 Arterial Blood Oxygen Saturation 92.1 L Jovanny Test ACCEPTAB Arterial Blood Gas Puncture Site Right Radial Arterial Blood Carboxyhemoglobin 0.2 Arterial Blood Date Drawn 03/13/2016 7:50:46 AM Arterial Blood Methemoglobin 0.2 Arterial Blood pCO2 (Temp correct) 42.8 Arterial Blood pH (Temp corrected) 7.383 Arterial Blood pO2 (Temp corrected) 69.6 L Blood Gas A-a O2 Differential 600.6 H Blood Gas Actual Respiration Rate 25 Blood Gas Low PEEP Setting 5.0 Blood Gas Modality VENT - AC Blood Gas Notified Time 03/13/2016 8:19:22 AM Blood Gas Notified Whom JLD Blood Gas Respiration Rate 20.0 Blood Gas Specimen Source Blood arterial Blood Gas Temperature 37.0 Blood Gas Tidal Volume 550.0 FiO2 100.0 Oxyhemoglobin Percent 91.7 L Total Hemoglobin 8.4 L Hematocrit 21.6 L Hemoglobin 7.2 L Test 03/13/16 14:30 03/13/16 18:01 03/13/16 18:50 Lactic Acid Level 1.0 Bedside Glucose 148 Hematocrit 21.5 L Hemoglobin 7.4 L Medications Medications Current Medications Ondansetron HCl (Zofran Inj) 4 mg Q6H PRN IV NAUSEA AND/OR VOMITING; Start 02/18/16 at 09:30 Acetaminophen (Tylenol Supp) 650 mg Q4H PRN [place] PAIN LEVEL 1-3 OR FEVER Last administered on 02/24/16at 14:32; Admin Dose 650 MG; Start 02/18/16 at 09:30 Morphine Sulfate (morphine) 2 mg Q4H PRN IV PAIN LEVEL 7-10 Last administered on 03/11/16at 16:13; Admin Dose 2 MG; Start 02/18/16 at 09:30 Bisacodyl (Dulcolax Supp) 10 mg DAILY PRN [place] CONSTIPATION; Start 02/18/16 at 09 :30 Metoprolol Tartrate (Lopressor) 5 mg Q4H PRN IV HR>55 Hold SBP<100 Last administered on 03/09/16at 12:08; Admin Dose 5 MG; Start 02/21/16 at 11:30 IV Flush (NS 10 ml) 10 ml PRN PRN IV IV PROTOCOL; Start 02/21/16 at 18:30 Ferrous Sulfate (Feosol Liquid Cup) 300 mg BID GTB Last administered on at 08:53; Admin Dose 300 MG; Start 02/22/16 at 10:00 Lorazepam (Ativan) 1 mg Q1H PRN IV ANXIETY Last administered on 03/13/16at 14: 10; Admin Dose 1 MG; Start 02/23/16 at 11:30 Miscellaneous Information 1 ea NOTE XX ; Start 02/23/16 at 23:15 Glucose (Glutose) 22.5 gm Q15M PRN PO DECREASED GLUCOSE; Start 02/23/16 at 23: 15 Dextrose (D50w Syringe) 25 ml Q15M PRN IV DECREASED GLUCOSE; Start 02/23/16 at 23:15 Dextrose (D50w Syringe) 50 ml Q15M PRN IV DECREASED GLUCOSE; Start 02/23/16 at 23:15 Glucagon (Glucagen) 1 mg Q15M PRN IM DECREASED GLUCOSE; Start 02/23/16 at 23:15 Glucose (Glutose) 15 gm Q15M PRN BUCCAL DECREASED GLUCOSE; Start 02/23/16 at 23 :15 Metoclopramide HCl (Reglan) 10 mg Q6 IV Last administered on 03/13/16at 17:34; Admin Dose 10 MG; Start 03/04/16 at 06:00 Acetaminophen (Tylenol Tab) 650 mg Q6H PRN NGT PAIN AND OR ELEVATED TEMP Last administered on 03/13/16at 14:33; Admin Dose 650 MG; Start 03/06/16 at 11:30 Glucose (Glutose) 15 gm Q15M PRN NGT DECREASED GLUCOSE; Start 03/06/16 at 08: 45 Hydralazine HCl (Apresoline) 100 mg Q8 NGT Last administered on 03/13/16 05: 26; Admin Dose 100 MG; Start 03/06/16 at 14:00 Metoprolol Tartrate (Lopressor) 150 mg Q8 NGT Last administered on 03/13/16 05:26; Admin Dose 150 MG; Start 03/06/16 at 14:00 Hydralazine HCl 10 mg 10 mg Q4H PRN IV ELEVATED SYSTOLIC BP Last administered on 03/09/16 10:52; Admin Dose 10 MG; Start 03/06/16 at 16:00 Dextrose (D5W) 1,000 ml @ 80 mls/hr [id number] IV Last administered on 15:43; Admin Dose 80 MLS/HR; Start 03/08/16 at 11:30 Amlodipine Besylate (Norvasc) 10 mg DAILY PO Last administered on 03/13/16 08 :54; Admin Dose 10 MG; Start 03/09/16 at 17:00 Minoxidil 10 mg 10 mg BID NGT Last administered on 03/13/16 08:54; Admin Dose 10 MG; Start 03/09/16 at 21:00 Propofol (Diprivan) 100 ml @ 3.189 mls/ hr Q12H IV Last administered on 18:28; Admin Dose 31.89 MLS/HR; Start 03/10/16 at 00:00 Insulin Aspart NOVOLOG *MODERATE* ALGORI... Q6 SC Last administered on 18:05; Admin Dose 2 UNIT; Start 03/10/16 at 06:00 Levetiracetam/ Dextrose (Keppra Iv/D5W) 115 ml @ 460 mls/hr Q12 IVPB Last administered on 03/13/16 08:53; Admin Dose 460 MLS/HR; Start 03/11/16 at 21: 00 Diltiazem HCl (Cardizem) 90 mg Q8 PO Last administered on 03/13/16 05:24; Admin Dose 90 MG; Start 03/12/16 at 14:00 Fluconazole 100 mg 100 mg DAILY PO Last administered on 03/13/16 08:54; Admin Dose 100 MG; Start 03/12/16 at 14:30 Piperacillin Sod/ Tazobactam Sod (Zosyn 2.25gm/ 50ml (Pmx)) 50 ml @ 100 mls/hr Q8 IVPB Last administered on 03/13/16at 14:04; Admin Dose 100 MLS/HR; Start at 15:00 Pantoprazole 40 mg 40 mg BID@06,18 IV Last administered on 03/13/16at 17:34; Admin Dose 40 MG; Start 03/13/16 at 18:00 Vancomycin HCl 1.5 gm/Sodium Chloride 250 ml @ 83.333 mls/ hr Q24H IVPB ; Start 03/14/16 at 04:00 Fentanyl/Dextrose (D5W) 100 ml @ 2.5 mls/hr TITRATE IV Last administered on at 18:21; Admin Dose 2.5 MLS/HR; Start 03/13/16 at 18:00 SASHA OWEN MD Mar 13, 2016 19:30
[2016-03-14] VITALS (62 sets, daily range): BP systolic 88–136; BP diastolic 47–72; PULSE 61–82; RESP 16–29
[2016-03-14] MEDS: METOCLOPRAMIDE 10 MG INJ IV SCH ×4 (00:27→18:05)
[2016-03-14] MEDS: INSULIN ASPART [NOVOLOG] 3 ML PEN SC SCH ×4 (00:29→18:00)
[2016-03-14] MEDS: PROPOFOL 100 ML IV SCH ×6 (01:04→19:28)
[2016-03-14] MEDS: IPRATROPIUM (HFA) 12.9 GM INHALER INH SCH ×4 (03:16→20:16)
[2016-03-14] MEDS: ALBUTEROL HFA 8 GM INHALER INH SCH ×4 (03:17→20:16)
[2016-03-14] MEDS ORDERED: VANCOMYCIN 1.5 GM in SOD CHLORIDE 0.9% 250 ML IVPB SCH (04:00)
[2016-03-14] MEDS: DEXTROSE 5% 1,000 ML IV SCH (05:41)
[2016-03-14 05:47] LABS: AADO2 Arterial 564.7 mmHg (7.0-24.0); Allen Test ACCEPTAB; Arterial Base Excess -0.8 mmol/L (-3.0-3); Arterial COHb 0.3 % (0.0-3.0); Arterial HCO3 26.3 mmol/L (22.0-26.0); Arterial MetHb 0.5 % (0.0-1.5); Arterial Total Hemglobin 8.1 g/dl (12.0-18.0); MODE VENT - AC
[2016-03-14 06:03] LABS: HEMATOCRIT 21.4 % (42.0-52.0); MEAN CORPUSCULAR HEMOGLOBIN 26.1 pg (29.0-33.0); MEAN CORPUSCULAR HGB CONC 32.8 g/dl (32.0-37.0); MEAN CORPUSCULAR VOLUME 79.5 fl (82.0-101.0); MEAN PLATELET VOLUME 9.9 fl (7.4-10.4); PLATELET COUNT 275 10^3/UL (140-440); RED CELL DISTRIBUTION WIDTH 17.1 % (11.5-14.5); UNCORRECTED WBC 20.6 10^3/ul (4.8-10.8); WHITE BLOOD COUNT 20.6 10^3/ul (4.8-10.8)
[2016-03-14 06:15] LABS: POTASSIUM 4.2 mmol/L (3.5-5.1)
[2016-03-14] MEDS: FUROSEMIDE 20 MG INJ IV SCH ×2 (06:16→22:34)
[2016-03-14] MEDS: PIPER-TAZO 2.25 GM (PMX) 50 ML IVPB SCH ×3 (06:16→22:35)
[2016-03-14] MEDS: METOPROLOL 100 MG TAB NGT SCH ×3 (06:17→21:17)
[2016-03-14 06:18] LABS: CALCIUM 8.7 mg/dl (8.4-10.2)
[2016-03-14] MEDS: DILTIAZEM 30 MG TAB PO SCH ×3 (06:18→22:43)
[2016-03-14 06:26] LABS: CREATININE 3.2 mg/dl (0.61-1.24)
[2016-03-14] MEDS: PANTOPRAZOLE 40 MG INJ IV SCH (06:31)
[2016-03-14 06:35] LABS: CONDITION 1; LH ANALYZER COMMENTS 1
[2016-03-14 07:34] LABS: MAGNESIUM 2.4 mg/dl (1.7-2.5)
[2016-03-14 07:51] LABS: PHOSPHORUS 10.3 mg/dl (2.5-4.9)
[2016-03-14] MEDS: HEPARIN 25000 UNITS/250 ML 250 ML IV SCH (08:02)
[2016-03-14 08:27] LABS: AADO2 Arterial 572.9 mmHg (7.0-24.0); Allen Test ACCEPTAB; Arterial Base Excess -2.3 mmol/L (-3.0-3); Arterial COHb 0.3 % (0.0-3.0); Arterial Fraction of Oxyhgb 95.2 % (93.0-99.0); Arterial MetHb 0.4 % (0.0-1.5); Arterial Total Hemglobin 7.3 g/dl (12.0-18.0); MODE VENT - AC
[2016-03-14] MEDS: FERROUS SULFATE 60 MG/ML 5ML CUP GTB SCH ×2 (08:33→21:07)
[2016-03-14] MEDS: LEVETIRACETAM IV 1,500 MG in DEXTROSE 5% 100 ML IVPB SCH ×2 (08:34→21:09)
[2016-03-14] MEDS: FLUCONAZOLE 100 MG TAB PO SCH (08:34)
[2016-03-14] MEDS: MINOXIDIL 10 MG TAB NGT SCH ×2 (08:34→21:09)
[2016-03-14] MEDS ORDERED: SOD CHLORIDE 0.9% 250 ML IV* ONE (08:52)
--- NOTE | 2016-03-14 09:02 | PN ---
Date/Time of Note Date/Time of Note DATE: 03/14/16 TIME: 08:59 Assessment/Plan VTE Prophylaxis VTE Prophylaxis Intervention: contraindicated Lines/Catheters IV Catheter Type (from [facility]): PICC Line Central line still needed: Yes Urinary Cath still in place: Yes Reason Cath still needed: terminal illness/intractable pain Assessment/Plan Chief Complaint/Hosp Course 1. Type B aortic dissection. Continue blood pressure control. Continue ICU monitoring. Status post evaluation by vascular surgery. No surgical intervention as of now. 2. Accelerated hypertension. Currently controlled. On antihypertensives. 3. Acute hypoxic respiratory failure. Etiology unclear. Most probably secondary to aspiration. Continue ventilator support as per pulmonary. The patient was extubated and then re-intubated. 4. Aspiration pneumonia. Continue antibiotics as per infectious diseases. 5. Acute kidney injury, most probably secondary to hemodynamics. Nephrology following. Use nephrotoxic drugs with caution. 6. Left cephalic vein thrombosis. On therapeutic anticoagulation. This will be put on hold because of worsening H&H. 7. Pulmonary embolism (02/29/2016). On therapeutic anticoagulation with heparin gtt. This will be put on hold because of worsening H&H. 8. Microcytic hypochromic anemia. Iron panel showing iron deficiency. Continue iron supplements. Will transfuse as needed. 9. Acute encephalopathy, most probably metabolic in origin. Electroencephalography showing background slowing suggesting bihemispheric subcortical dysfunction, possibly epileptiform activity. The patient is on anticonvulsants. Was evaluated by Neurology. 10. Hyperdynamic left ventricular systolic function. Cardiology following. 11. GI bleeding. Will hold heparin drip. Will do serial H&H. Will start the patient on Protonix drip. Will involve gastroenterology on the case. 12. Fluids, electrolytes, and nutrition. IV fluids as per nephrology. Hold NG tube feedings. 13. Deep venous thrombosis prophylaxis. Contraindicated. 14. Gastrointestinal prophylaxis. Proton pump inhibitors. PLAN: Continue intensive care unit monitoring. Ventilator weaning as per pulmonary. Hold NG tube feedings. Serial H&H. Start Protonix drip. Hold heparin. Transfuse 1 unit of PRBC. Gastroenterology consult called. Case discussed with Dr. Mosher. Had a conference with the patient's fianc Garrison Martinez in the room, the patient's mother (Julieta Zepeda) from [place] on the phone and the patient's sister on the phone. The plan of care was explained to the patient's family. Patient's poor prognosis was explained. The patient's family wanted to do everything possible to keep the patient alive. The conference was done in the presence of foster care social worker. Critical care time 35 minutes. Problems: Subjective 24 Hr Interval Summary Free Text/Dictation The patient was desaturating last night. The patient had to be bagged with 100 % FiO2 to keep the saturations satisfactory. Currently remains on 100% FiO2 with PEEP of 10 with satisfactory oxygen saturation levels. Continues to have coffee-ground secretions coming out of the NG tube. Exam/Review of Systems Vital Signs Vitals Vital Signs Date Time Temp Pulse Resp B/P Pulse Ox O2 Delivery O2 Flow Rate FiO2 03/14/16 08:00 71 03/14/16 06:30 20 113/57 96 Mechanical Ventilator 03/14/16 05:40 100 03/14/16 04:00 99.4 Intake and Output 03/13/16 03/13/16 03/14/16 15:00 23:00 07:00 Intake Total 1300.12 ml 1170.67 ml 1210 ml Output Total 190 ml 270 ml 150 ml Balance 1110.12 ml 900.67 ml 1060 ml Exam GENERAL: Obese male lying bed. Orally intubated. HEENT: Head normocephalic and atraumatic. Eyes: Anicteric sclerae. Conjunctivae clear. ENT: Nasal septum is midline. Oral mucosa is dry. NECK: Short and obese. Unable to visualize any neck veins. CARDIAC: Regular rate and rhythm. S1 and S2 heard. ABDOMEN: Protruded. Soft. Bowel sounds hypoactive in all 4 quadrants. GENITOURINARY: The patient has a Smalls catheter in place. EXTREMITIES: No cyanosis, no clubbing. Edema of bilateral lower extremities and bilateral upper extremities. Right upper extremity PICC line in place. Peripheral pulses palpable. NEUROLOGIC: The patient is sedated. Results Result Diagram: 03/14/16 0535 03/14/16 0535 Results 24 hrs Laboratory Tests Test 03/13/16 11:56 03/13/16 12:10 03/13/16 14:30 03/13/16 18:01 Bedside Glucose 169 148 Hematocrit 21.6 L Hemoglobin 7.2 L Lactic Acid Level 1.0 Test 03/13/16 18:50 03/14/16 00:26 03/14/16 05:00 03/14/16 05:18 Hematocrit 21.5 L Hemoglobin 7.4 L Bedside Glucose 143 145 Arterial Blood HCO3 26.3 H Arterial Blood Base Excess -0.8 Arterial Blood Oxygen Saturation 95.8 Jovanny Test ACCEPTAB Arterial Blood Gas Puncture Site Right Radial Arterial Blood Carboxyhemoglobin 0.3 Arterial Blood Date Drawn 03/14/2016 5:30:48 AM Arterial Blood Methemoglobin 0.5 Arterial Blood pCO2 (Temp correct) 57.6 H Arterial Blood pH (Temp corrected) 7.277 *L Arterial Blood pO2 (Temp corrected) 90.7 Blood Gas A-a O2 Differential 564.7 H Blood Gas Actual Respiration Rate 20 Blood Gas Critical Value Read Back JENNIFER ROBLEDO Blood Gas Low PEEP Setting 10.0 Blood Gas Modality VENT - AC Blood Gas Notified Time 03/14/2016 5:46:56 AM Blood Gas Notified Whom MA Blood Gas Respiration Rate 20.0 Blood Gas Specimen Source Blood arterial Blood Gas Temperature 37.0 Blood Gas Tidal Volume 550.0 FiO2 100.0 Oxyhemoglobin Percent 95.0 Total Hemoglobin 8.1 L Test 03/14/16 05:35 03/14/16 06:05 03/14/16 07:00 Anion Gap 18 H Blood Morphology Comment Blood Urea Nitrogen 46 H Calcium Level 8.7 Carbon Dioxide Level 25 Chloride Level 94 L Creatinine 3.20 #H Glucose Level 148 Hematocrit 21.4 L Hemoglobin 7.0 L Magnesium Level 2.4 Mean Corpuscular Hemoglobin 26.1 L Mean Corpuscular Hemoglobin Concent 32.8 Mean Corpuscular Volume 79.5 L Mean Platelet Volume 9.9 Phosphorus Level 10.3 #H Platelet Count 275 Potassium Level 4.2 Red Blood Count 2.70 L Red Cell Distribution Width 17.1 H Sodium Level 133 L White Blood Count 20.6 H Activated Partial Thromboplast Time 66.4 H Arterial Blood HCO3 24.0 Arterial Blood Base Excess -2.3 Arterial Blood Oxygen Saturation 95.9 Jovanny Test ACCEPTAB Arterial Blood Gas Puncture Site Right Radial Arterial Blood Carboxyhemoglobin 0.3 Arterial Blood Date Drawn 03/14/2016 7:40:39 AM Arterial Blood Methemoglobin 0.4 Arterial Blood pCO2 (Temp correct) 49.6 H Arterial Blood pH (Temp corrected) 7.302 L Arterial Blood pO2 (Temp corrected) 90.5 Blood Gas A-a O2 Differential 572.9 H Blood Gas Actual Respiration Rate 24 Blood Gas Low PEEP Setting 10.0 Blood Gas Modality VENT - AC Blood Gas Notified Time 03/14/2016 8:27:18 AM Blood Gas Notified Whom JLD Blood Gas Respiration Rate 24.0 Blood Gas Specimen Source Blood arterial Blood Gas Temperature 37.0 Blood Gas Tidal Volume 550.0 FiO2 100.0 Oxyhemoglobin Percent 95.2 Total Hemoglobin 7.3 L Medications Medications Current Medications Ondansetron HCl (Zofran Inj) 4 mg Q6H PRN IV NAUSEA AND/OR VOMITING; Start 02/18/16 at 09:30 Acetaminophen (Tylenol Supp) 650 mg Q4H PRN [place] PAIN LEVEL 1-3 OR FEVER Last administered on 02/24/16at 14:32; Admin Dose 650 MG; Start 02/18/16 at 09:30 Morphine Sulfate (morphine) 2 mg Q4H PRN IV PAIN LEVEL 7-10 Last administered on 03/11/16at 16:13; Admin Dose 2 MG; Start 02/18/16 at 09:30 Bisacodyl (Dulcolax Supp) 10 mg DAILY PRN [place] CONSTIPATION; Start 02/18/16 at 09 :30 Metoprolol Tartrate (Lopressor) 5 mg Q4H PRN IV HR>55 Hold SBP<100 Last administered on 03/09/16at 12:08; Admin Dose 5 MG; Start 02/21/16 at 11:30 IV Flush (NS 10 ml) 10 ml PRN PRN IV IV PROTOCOL; Start 02/21/16 at 18:30 Ferrous Sulfate (Feosol Liquid Cup) 300 mg BID GTB Last administered on at 08:33; Admin Dose 300 MG; Start 02/22/16 at 10:00 Lorazepam (Ativan) 1 mg Q1H PRN IV ANXIETY Last administered on 03/13/16at 14: 10; Admin Dose 1 MG; Start 02/23/16 at 11:30 Miscellaneous Information 1 ea NOTE XX ; Start 02/23/16 at 23:15 Glucose (Glutose) 22.5 gm Q15M PRN PO DECREASED GLUCOSE; Start 02/23/16 at 23: 15 Dextrose (D50w Syringe) 25 ml Q15M PRN IV DECREASED GLUCOSE; Start 02/23/16 at 23:15 Dextrose (D50w Syringe) 50 ml Q15M PRN IV DECREASED GLUCOSE; Start 02/23/16 at 23:15 Glucagon (Glucagen) 1 mg Q15M PRN IM DECREASED GLUCOSE; Start 02/23/16 at 23:15 Glucose (Glutose) 15 gm Q15M PRN BUCCAL DECREASED GLUCOSE; Start 02/23/16 at 23 :15 Metoclopramide HCl (Reglan) 10 mg Q6 IV Last administered on 03/14/16at 06:16; Admin Dose 10 MG; Start 03/04/16 at 06:00 Acetaminophen (Tylenol Tab) 650 mg Q6H PRN NGT PAIN AND OR ELEVATED TEMP Last administered on 03/13/16at 14:33; Admin Dose 650 MG; Start 03/06/16 at 11:30 Glucose (Glutose) 15 gm Q15M PRN NGT DECREASED GLUCOSE; Start 03/06/16 at 08: 45 Hydralazine HCl (Apresoline) 100 mg Q8 NGT Last administered on 03/14/16at 06: 17; Admin Dose 100 MG; Start 03/06/16 at 14:00 Metoprolol Tartrate (Lopressor) 150 mg Q8 NGT Last administered on 03/14/16at 06:17; Admin Dose 150 MG; Start 03/06/16 at 14:00 Hydralazine HCl 10 mg 10 mg Q4H PRN IV ELEVATED SYSTOLIC BP Last administered on 03/09/16at 10:52; Admin Dose 10 MG; Start 03/06/16 at 16:00 Dextrose (D5W) 1,000 ml @ 80 mls/hr [id number] IV Last administered on at 05:41; Admin Dose 80 MLS/HR; Start 03/08/16 at 11:30 Amlodipine Besylate (Norvasc) 10 mg DAILY PO Last administered on 03/13/16at 08 :54; Admin Dose 10 MG; Start 03/09/16 at 17:00 Minoxidil 10 mg 10 mg BID NGT Last administered on 03/14/16at 08:34; Admin Dose 10 MG; Start 03/09/16 at 21:00 Propofol (Diprivan) 100 ml @ 3.189 mls/ hr Q12H IV Last administered on at 05:41; Admin Dose 31.89 MLS/HR; Start 03/10/16 at 00:00 Insulin Aspart NOVOLOG *MODERATE* ALGORI... Q6 SC Last administered on 05:45; Admin Dose 2 UNIT; Start 03/10/16 at 06:00 Levetiracetam/ Dextrose (Keppra Iv/D5W) 115 ml @ 460 mls/hr Q12 IVPB Last administered on 03/14/16 08:34; Admin Dose 460 MLS/HR; Start 03/11/16 at 21: 00 Diltiazem HCl (Cardizem) 90 mg Q8 PO Last administered on 03/14/16 06:18; Admin Dose 90 MG; Start 03/12/16 at 14:00 Fluconazole 100 mg 100 mg DAILY PO Last administered on 03/14/16at 08:34; Admin Dose 100 MG; Start 03/12/16 at 14:30 Piperacillin Sod/ Tazobactam Sod (Zosyn 2.25gm/ 50ml (Pmx)) 50 ml @ 100 mls/hr Q8 IVPB Last administered on 03/14/16 06:16; Admin Dose 100 MLS/HR; Start at 15:00 Pantoprazole 40 mg 40 mg BID@06,18 IV Last administered on 03/14/16at 06:31; Admin Dose 40 MG; Start 03/13/16 at 18:00 Vancomycin HCl 1.5 gm/Sodium Chloride 250 ml @ 83.333 mls/ hr Q24H IVPB Last administered on 03/14/16 05:42; Admin Dose 83.333 MLS/HR; Start 03/14/16 at 04:00 Fentanyl/Dextrose (D5W) 100 ml @ 2.5 mls/hr TITRATE IV Last administered on at 18:21; Admin Dose 2.5 MLS/HR; Start 03/13/16 at 18:00 KEITH CRAIG NP Mar 14, 2016 09:02
[2016-03-14 09:17] LABS: EOSINOPHILS # 0.8 10^3/ul (0.0-0.5); LYMPHOCYTES # 1.4 10^3/ul (0.8-2.9); MONOCYTE # 0.6 10^3/ul (0.3-0.9); MYELOCYTES # 0.4; NEUTROPHIL # 16.1 10^3/ul (1.6-7.5)
[2016-03-14] MEDS: FENTAnyl 1,000 MCG in DEXTROSE 5% 80 ML IV SCH (09:25)
[2016-03-14] MEDS: AMLODIPINE 10 MG TAB PO SCH (09:52)
[2016-03-14] MEDS: PANTOPRAZOLE IV 80 MG in SOD CHLORIDE 0.9% 100 ML IV SCH ×2 (09:52→17:38)
--- NOTE | 2016-03-14 11:24 | RADRPT ---
PROCEDURE: Chest 1 views. CLINICAL INDICATION: Shortness of breath, pneumonia, congestive heart failure TECHNIQUE: AP views of the chest were obtained. COMPARISON: March 13, 2016 FINDINGS: The heart is large. Endotracheal and nasogastric tubes are stable and appear in grossly appropriate location. Right-sided PICC line is unchanged. Dense infiltrates throughout both lungs are unchange d. Small pleural effusions may be present. Osseous structures are intact. IMPRESSION: Cardiomegaly . Stable dense infiltrates throughout both lungs, possibly combined small pleural effusions. RPTAT: AA .Otilio Enriquez MD, MD Date Time Electronically viewed and signed by .Otilio Enriquez MD, on 03/14/2016 11:24 .P/
[2016-03-14 13:57] LABS: ADD UMIC YES; URINE BILIRUBIN (Dip) NEGATIVE (NEGATIVE); URINE BLOOD (Dip) 1+ (NEGATIVE); URINE COLOR LT. YELLOW (YELLOW); URINE GLUCOSE (Dip) NEGATIVE (NEGATIVE); URINE KETONES (Dip) NEGATIVE (NEGATIVE); URINE LEUKOCYTE ESTERASE (Dip) NEGATIVE (NEGATIVE); URINE NITRITE (Dip) NEGATIVE (NEGATIVE); URINE TOTAL PROTEIN (Dip) 1+ (NEGATIVE); URINE UROBILINOGEN (Dip) 0.2 E.U./dL (0.1-1.0)
[2016-03-14 14:17] LABS: BACTERIA,URINE MODERATE
--- NOTE | 2016-03-14 15:38 | CONS ---
Date/Time of Note Date/Time of Note DATE: 03/14/16 TIME: 15:33 Assessment/Plan Assessment/Plan Chief Complaint/Hosp Course Imp: 1.HTN emergency-NL EF by echo this admit-under reasonable control on PO medications only. Off all drips with well controlled BP/HR currently 2.Aortic dissection-type B again demonstrated by Chest CT 02/29/16 3.abnl ecg-lateral TWI-negative troponin x 3 since admit 4.anxiety 5.ARF 6. Pericardial effusion by echo-small with NL EF 7.Encephalopathic 8.Pulmonary embolism 9.Tachycardia-S tach-only when on sedation vacation 10.CHF-diastolic acute 11.Resp [id number] 12.Seizures-on keppra 13. Acute on chronic renal failure 14.GIB/anemia Recc: -Tele in ICU -Follow volume status closely -Wean vent as tolerated -serial ecg's -Continue PO BB/CCB/minoxidil/hydralazine/diltiazem for now -ongoing surgical follow-up -f/u MS closely -Consider holding lasix given worsening renal failure -Continue keppra for seizures -Transfuse PRBC's Problems: Consultation Date/Type/Reason Admit Date/Time Feb 18, 2016 at 09:14 Initial Consult Date 02/19/2016 Type of Consultation: Cardiology Reason for Consultation HTN/aortic dissection Referring Provider: MOSES HARRIS MD Exam/Review of Systems Vital Signs Vitals Vital Signs Date Time Temp Pulse Resp B/P Pulse Ox O2 Delivery O2 Flow Rate FiO2 03/14/16 15:15 70 25 99 03/14/16 15:00 134/59 03/14/16 14:45 Mechanical Ventilator 03/14/16 12:00 98.9 03/14/16 08:00 100 Intake and Output 03/13/16 03/13/16 03/14/16 15:00 23:00 07:00 Intake Total 1300.12 ml 1170.67 ml 1210 ml Output Total 190 ml 270 ml 150 ml Balance 1110.12 ml 900.67 ml 1060 ml Exam Review of Systems: CONSTITUTIONAL: No fevers, chills. PULMONARY: intubated CARDIOVASCULAR: No obvious chest pain/palpitations GASTROINTESTINAL: No nausea/vomiting. GENITOURINARY: No hematuria/dysuria. MUSCULOSKELETAL: No obvious myagias/arthalgias. PSYCHIATRIC: No documented depression. NEUROLOGIC: sedated Constitutional: other (sedated) Psych: no complaints Head: normocephalic ENMT: mucosa pink and moist Neck: jvd (8 cm water), supple Respiratory: diminished breath sounds Cardiovascular: regular rate and rhythm Gastrointestinal: non-tender, soft Musculoskeletal: muscle tone Extremities: normal pulses Neurological: other (sedated) Results Result Diagram: 03/14/16 0535 03/14/16 0535 Results 24 hrs Laboratory Tests Test 03/13/16 18:01 03/13/16 18:50 03/14/16 00:26 03/14/16 05:00 Bedside Glucose 148 143 Hematocrit 21.5 L Hemoglobin 7.4 L Arterial Blood HCO3 26.3 H Arterial Blood Base Excess -0.8 Arterial Blood Oxygen Saturation 95.8 Jovanny Test ACCEPTAB Arterial Blood Gas Puncture Site Right Radial Arterial Blood Carboxyhemoglobin 0.3 Arterial Blood Date Drawn 03/14/2016 5:30:48 AM Arterial Blood Methemoglobin 0.5 Arterial Blood pCO2 (Temp correct) 57.6 H Arterial Blood pH (Temp corrected) 7.277 *L Arterial Blood pO2 (Temp corrected) 90.7 Blood Gas A-a O2 Differential 564.7 H Blood Gas Actual Respiration Rate 20 Blood Gas Critical Value Read Back JENNIFER ROBLEDO Blood Gas Low PEEP Setting 10.0 Blood Gas Modality VENT - AC Blood Gas Notified Time 03/14/2016 5:46:56 AM Blood Gas Notified Whom MA Blood Gas Respiration Rate 20.0 Blood Gas Specimen Source Blood arterial Blood Gas Temperature 37.0 Blood Gas Tidal Volume 550.0 FiO2 100.0 Oxyhemoglobin Percent 95.0 Total Hemoglobin 8.1 L Test 03/14/16 05:18 03/14/16 05:35 03/14/16 06:05 03/14/16 07:00 Bedside Glucose 145 Anion Gap 18 H Band Neutrophils % 4.0 Blood Morphology Comment Blood Urea Nitrogen 46 H Calcium Level 8.7 Carbon Dioxide Level 25 Chloride Level 94 L Creatinine 3.20 #H Eosinophils # 0.8 H Eosinophils % 4.0 Glucose Level 148 Hematocrit 21.4 L Hemoglobin 7.0 L Lymphocytes # 1.4 Lymphocytes % 7.0 L Magnesium Level 2.4 Mean Corpuscular Hemoglobin 26.1 L Mean Corpuscular Hemoglobin Concent 32.8 Mean Corpuscular Volume 79.5 L Mean Platelet Volume 9.9 Metamyelocytes # 0.2 Metamyelocytes % 1.0 H Monocytes # 0.6 Monocytes % 3.0 Myelocytes # 0.4 Myelocytes % 2.0 H Neutrophils # 16.1 H Neutrophils % 78.0 H Phosphorus Level 10.3 #H Platelet Count 275 Potassium Level 4.2 Promyelocytes # 0.2 Promyelocytes % 1.0 H Red Blood Count 2.70 L Red Cell Distribution Width 17.1 H Sodium Level 133 L White Blood Count 20.6 H Activated Partial Thromboplast Time 66.4 H Arterial Blood HCO3 24.0 Arterial Blood Base Excess -2.3 Arterial Blood Oxygen Saturation 95.9 Jovanny Test ACCEPTAB Arterial Blood Gas Puncture Site Right Radial Arterial Blood Carboxyhemoglobin 0.3 Arterial Blood Date Drawn 03/14/2016 7:40:39 AM Arterial Blood Methemoglobin 0.4 Arterial Blood pCO2 (Temp correct) 49.6 H Arterial Blood pH (Temp corrected) 7.302 L Arterial Blood pO2 (Temp corrected) 90.5 Blood Gas A-a O2 Differential 572.9 H Blood Gas Actual Respiration Rate 24 Blood Gas Low PEEP Setting 10.0 Blood Gas Modality VENT - AC Blood Gas Notified Time 03/14/2016 8:27:18 AM Blood Gas Notified Whom JLD Blood Gas Respiration Rate 24.0 Blood Gas Specimen Source Blood arterial Blood Gas Temperature 37.0 Blood Gas Tidal Volume 550.0 FiO2 100.0 Oxyhemoglobin Percent 95.2 Total Hemoglobin 7.3 L Test 03/14/16 07:40 03/14/16 12:25 Urine Amorphous Urates MANY Urine Bacteria MODERATE Urine Bilirubin NEGATIVE Urine Clarity CLOUDY H Urine Coarse Granular Casts FEW Urine Color LT. YELLOW Urine Epithelial Cells FEW Urine Fine Granular Casts Urine Glucose NEGATIVE Urine Hemoglobin 1+ H Urine Ketones NEGATIVE Urine Leukocyte Esterase NEGATIVE Urine Microscopic RBC 10-25 Urine Microscopic WBC 0-2 Urine Nitrite NEGATIVE Urine Specific [place] 1.025 Urine Total Protein 1+ H Urine Urobilinogen 0.2 E.U./dL Urine pH 5.0 Bedside Glucose 122 Medications Medications Current Medications Ondansetron HCl (Zofran Inj) 4 mg Q6H PRN IV NAUSEA AND/OR VOMITING; Start 02/18/16 at 09:30 Acetaminophen (Tylenol Supp) 650 mg Q4H PRN [place] PAIN LEVEL 1-3 OR FEVER Last administered on 02/24/16at 14:32; Admin Dose 650 MG; Start 02/18/16 at 09:30 Morphine Sulfate (morphine) 2 mg Q4H PRN IV PAIN LEVEL 7-10 Last administered on 03/11/16at 16:13; Admin Dose 2 MG; Start 02/18/16 at 09:30 Bisacodyl (Dulcolax Supp) 10 mg DAILY PRN [place] CONSTIPATION; Start 02/18/16 at 09 :30 Metoprolol Tartrate (Lopressor) 5 mg Q4H PRN IV HR>55 Hold SBP<100 Last administered on 03/09/16at 12:08; Admin Dose 5 MG; Start 02/21/16 at 11:30 IV Flush (NS 10 ml) 10 ml PRN PRN IV IV PROTOCOL; Start 02/21/16 at 18:30 Ferrous Sulfate (Feosol Liquid Cup) 300 mg BID GTB Last administered on at 08:33; Admin Dose 300 MG; Start 02/22/16 at 10:00 Lorazepam (Ativan) 1 mg Q1H PRN IV ANXIETY Last administered on 03/13/16at 14: 10; Admin Dose 1 MG; Start 02/23/16 at 11:30 Miscellaneous Information 1 ea NOTE XX ; Start 02/23/16 at 23:15 Glucose (Glutose) 22.5 gm Q15M PRN PO DECREASED GLUCOSE; Start 02/23/16 at 23: 15 Dextrose (D50w Syringe) 25 ml Q15M PRN IV DECREASED GLUCOSE; Start 02/23/16 at 23:15 Dextrose (D50w Syringe) 50 ml Q15M PRN IV DECREASED GLUCOSE; Start 02/23/16 at 23:15 Glucagon (Glucagen) 1 mg Q15M PRN IM DECREASED GLUCOSE; Start 02/23/16 at 23:15 Glucose (Glutose) 15 gm Q15M PRN BUCCAL DECREASED GLUCOSE; Start 02/23/16 at 23 :15 Metoclopramide HCl (Reglan) 10 mg Q6 IV Last administered on 03/14/16at 12:22; Admin Dose 10 MG; Start 03/04/16 at 06:00 Acetaminophen (Tylenol Tab) 650 mg Q6H PRN NGT PAIN AND OR ELEVATED TEMP Last administered on 03/13/16at 14:33; Admin Dose 650 MG; Start 03/06/16 at 11:30 Glucose (Glutose) 15 gm Q15M PRN NGT DECREASED GLUCOSE; Start 03/06/16 at 08: 45 Hydralazine HCl (Apresoline) 100 mg Q8 NGT Last administered on 03/14/16 14: 50; Admin Dose 100 MG; Start 03/06/16 at 14:00 Metoprolol Tartrate (Lopressor) 150 mg Q8 NGT Last administered on 03/14/16 14:51; Admin Dose 150 MG; Start 03/06/16 at 14:00 Hydralazine HCl 10 mg 10 mg Q4H PRN IV ELEVATED SYSTOLIC BP Last administered on 03/09/16 10:52; Admin Dose 10 MG; Start 03/06/16 at 16:00 Dextrose (D5W) 1,000 ml @ 80 mls/hr [id number] IV Last administered on 05:41; Admin Dose 80 MLS/HR; Start 03/08/16 at 11:30 Amlodipine Besylate (Norvasc) 10 mg DAILY PO Last administered on 03/14/16 09 :52; Admin Dose 10 MG; Start 03/09/16 at 17:00 Minoxidil 10 mg 10 mg BID NGT Last administered on 03/14/16 08:34; Admin Dose 10 MG; Start 03/09/16 at 21:00 Propofol (Diprivan) 100 ml @ 3.189 mls/ hr Q12H IV Last administered on 14:30; Admin Dose 31.89 MLS/HR; Start 03/10/16 at 00:00 Insulin Aspart NOVOLOG *MODERATE* ALGORI... Q6 SC Last administered on 05:45; Admin Dose 2 UNIT; Start 03/10/16 at 06:00 Levetiracetam/ Dextrose (Keppra Iv/D5W) 115 ml @ 460 mls/hr Q12 IVPB Last administered on 03/14/16 08:34; Admin Dose 460 MLS/HR; Start 03/11/16 at 21: 00 Diltiazem HCl (Cardizem) 90 mg Q8 PO Last administered on 03/14/16 14:50; Admin Dose 90 MG; Start 03/12/16 at 14:00 Fluconazole 100 mg 100 mg DAILY PO Last administered on 03/14/16at 08:34; Admin Dose 100 MG; Start 03/12/16 at 14:30 Piperacillin Sod/ Tazobactam Sod 50 ml @ 100 mls/hr Q8 IVPB Last administered on 03/14/16at 14:50; Admin Dose 100 MLS/HR; Start 03/12/16 at 15:00 Vancomycin HCl 1.5 gm/Sodium Chloride 250 ml @ 83.333 mls/ hr Q24H IVPB Last administered on 03/14/16at 05:42; Admin Dose 83.333 MLS/HR; Start 03/14/16 at 04:00; Status Future Hold Fentanyl 1000 mcg/ Dextrose 100 ml @ 2.5 mls/hr TITRATE IV Last administered on 03/14/16at 09:25; Admin Dose 2.5 MLS/HR; Start 03/13/16 at 18:00 Pantoprazole/ Sodium Chloride (Protonix Iv/NS) 100 ml @ 10 mls/hr Q10H IV Last administered on 03/14/16at 09:52; Admin Dose 10 MLS/HR; Start 03/14/16 at 10:30 JUNAID PAZ Mar 14, 2016 15:38
--- NOTE | 2016-03-14 16:22 | CONS ---
Date/Time of Note Date/Time of Note DATE: 03/14/16 TIME: 16:19 Assessment/Plan Assessment/Plan Chief Complaint/Hosp Course Assessment/Plan 1. Acute kidney injury, likely secondary to acute tubular necrosis from contrast-induced nephropathy and also secondary to ischemic acute tubular necrosis from aortic dissection.stable WORSENING AVOID NEPHROTOXIC DRUGS 2. A type B Helio aortic dissection. 3. Hypertension 4. acute resp failiure intubated on ventilator 5 edema on lasix 6 hypernatremia BETTER 7 HYPERPHOPHATEMIA plan F/U LYTES per pulmonary lasix CK CPK URINE LYTES AVOID VANCO Problems: Consultation Date/Type/Reason Admit Date/Time Feb 18, 2016 at 09:14 Initial Consult Date 02/26/16 Type of Consultation: RENAL Referring Provider: MOSES HARRIS MD Exam/Review of Systems Vital Signs Vitals Vital Signs Date Time Temp Pulse Resp B/P Pulse Ox O2 Delivery O2 Flow Rate FiO2 03/14/16 15:15 70 25 99 03/14/16 15:00 134/59 03/14/16 14:45 Mechanical Ventilator 03/14/16 12:00 98.9 03/14/16 08:00 100 Intake and Output 03/13/16 03/13/16 03/14/16 15:00 23:00 07:00 Intake Total 1300.12 ml 1170.67 ml 1210 ml Output Total 190 ml 270 ml 150 ml Balance 1110.12 ml 900.67 ml 1060 ml Exam Neck: supple Respiratory: clear to auscultation Cardiovascular: regular rate and rhythm Gastrointestinal: soft Extremities: edema (++) Results Result Diagram: 03/14/16 0535 03/14/16 0535 Results 24 hrs Laboratory Tests Test 03/13/16 18:01 03/13/16 18:50 03/14/16 00:26 03/14/16 05:00 Bedside Glucose 148 143 Hematocrit 21.5 L Hemoglobin 7.4 L Arterial Blood HCO3 26.3 H Arterial Blood Base Excess -0.8 Arterial Blood Oxygen Saturation 95.8 Jovanny Test ACCEPTAB Arterial Blood Gas Puncture Site Right Radial Arterial Blood Carboxyhemoglobin 0.3 Arterial Blood Date Drawn 03/14/2016 5:30:48 AM Arterial Blood Methemoglobin 0.5 Arterial Blood pCO2 (Temp correct) 57.6 H Arterial Blood pH (Temp corrected) 7.277 *L Arterial Blood pO2 (Temp corrected) 90.7 Blood Gas A-a O2 Differential 564.7 H Blood Gas Actual Respiration Rate 20 Blood Gas Critical Value Read Back JENNIFER RN Blood Gas Low PEEP Setting 10.0 Blood Gas Modality VENT - AC Blood Gas Notified Time 03/14/2016 5:46:56 AM Blood Gas Notified Whom MICHAEL Blood Gas Respiration Rate 20.0 Blood Gas Specimen Source Blood arterial Blood Gas Temperature 37.0 Blood Gas Tidal Volume 550.0 FiO2 100.0 Oxyhemoglobin Percent 95.0 Total Hemoglobin 8.1 L Test 03/14/16 05:18 03/14/16 05:35 03/14/16 06:05 03/14/16 07:00 Bedside Glucose 145 Anion Gap 18 H Band Neutrophils % 4.0 Blood Morphology Comment Blood Urea Nitrogen 46 H Calcium Level 8.7 Carbon Dioxide Level 25 Chloride Level 94 L Creatinine 3.20 #H Eosinophils # 0.8 H Eosinophils % 4.0 Glucose Level 148 Hematocrit 21.4 L Hemoglobin 7.0 L Lymphocytes # 1.4 Lymphocytes % 7.0 L Magnesium Level 2.4 Mean Corpuscular Hemoglobin 26.1 L Mean Corpuscular Hemoglobin Concent 32.8 Mean Corpuscular Volume 79.5 L Mean Platelet Volume 9.9 Metamyelocytes # 0.2 Metamyelocytes % 1.0 H Monocytes # 0.6 Monocytes % 3.0 Myelocytes # 0.4 Myelocytes % 2.0 H Neutrophils # 16.1 H Neutrophils % 78.0 H Phosphorus Level 10.3 #H Platelet Count 275 Potassium Level 4.2 Promyelocytes # 0.2 Promyelocytes % 1.0 H Red Blood Count 2.70 L Red Cell Distribution Width 17.1 H Sodium Level 133 L White Blood Count 20.6 H Activated Partial Thromboplast Time 66.4 H Arterial Blood HCO3 24.0 Arterial Blood Base Excess -2.3 Arterial Blood Oxygen Saturation 95.9 Jovanny Test ACCEPTAB Arterial Blood Gas Puncture Site Right Radial Arterial Blood Carboxyhemoglobin 0.3 Arterial Blood Date Drawn 03/14/2016 7:40:39 AM Arterial Blood Methemoglobin 0.4 Arterial Blood pCO2 (Temp correct) 49.6 H Arterial Blood pH (Temp corrected) 7.302 L Arterial Blood pO2 (Temp corrected) 90.5 Blood Gas A-a O2 Differential 572.9 H Blood Gas Actual Respiration Rate 24 Blood Gas Low PEEP Setting 10.0 Blood Gas Modality VENT - AC Blood Gas Notified Time 03/14/2016 8:27:18 AM Blood Gas Notified Whom JLD Blood Gas Respiration Rate 24.0 Blood Gas Specimen Source Blood arterial Blood Gas Temperature 37.0 Blood Gas Tidal Volume 550.0 FiO2 100.0 Oxyhemoglobin Percent 95.2 Total Hemoglobin 7.3 L Test 03/14/16 07:40 03/14/16 12:25 Urine Amorphous Urates MANY Urine Bacteria MODERATE Urine Bilirubin NEGATIVE Urine Clarity CLOUDY H Urine Coarse Granular Casts FEW Urine Color LT. YELLOW Urine Epithelial Cells FEW Urine Fine Granular Casts Urine Glucose NEGATIVE Urine Hemoglobin 1+ H Urine Ketones NEGATIVE Urine Leukocyte Esterase NEGATIVE Urine Microscopic RBC 10-25 Urine Microscopic WBC 0-2 Urine Nitrite NEGATIVE Urine Specific [place] 1.025 Urine Total Protein 1+ H Urine Urobilinogen 0.2 E.U./dL Urine pH 5.0 Bedside Glucose 122 Medications Medications Current Medications Ondansetron HCl (Zofran Inj) 4 mg Q6H PRN IV NAUSEA AND/OR VOMITING; Start 02/18/16 at 09:30 Acetaminophen (Tylenol Supp) 650 mg Q4H PRN [place] PAIN LEVEL 1-3 OR FEVER Last administered on 02/24/16at 14:32; Admin Dose 650 MG; Start 02/18/16 at 09:30 Morphine Sulfate (morphine) 2 mg Q4H PRN IV PAIN LEVEL 7-10 Last administered on 03/11/16at 16:13; Admin Dose 2 MG; Start 02/18/16 at 09:30 Bisacodyl (Dulcolax Supp) 10 mg DAILY PRN LA CONSTIPATION; Start 02/18/16 at 09 :30 Metoprolol Tartrate (Lopressor) 5 mg Q4H PRN IV HR>55 Hold SBP<100 Last administered on 03/09/16at 12:08; Admin Dose 5 MG; Start 02/21/16 at 11:30 IV Flush (NS 10 ml) 10 ml PRN PRN IV IV PROTOCOL; Start 02/21/16 at 18:30 Ferrous Sulfate (Feosol Liquid Cup) 300 mg BID GTB Last administered on at 08:33; Admin Dose 300 MG; Start 02/22/16 at 10:00 Lorazepam (Ativan) 1 mg Q1H PRN IV ANXIETY Last administered on 03/13/16at 14: 10; Admin Dose 1 MG; Start 02/23/16 at 11:30 Miscellaneous Information 1 ea NOTE XX ; Start 02/23/16 at 23:15 Glucose (Glutose) 22.5 gm Q15M PRN PO DECREASED GLUCOSE; Start 02/23/16 at 23: 15 Dextrose (D50w Syringe) 25 ml Q15M PRN IV DECREASED GLUCOSE; Start 02/23/16 at 23:15 Dextrose (D50w Syringe) 50 ml Q15M PRN IV DECREASED GLUCOSE; Start 02/23/16 at 23:15 Glucagon (Glucagen) 1 mg Q15M PRN IM DECREASED GLUCOSE; Start 02/23/16 at 23:15 Glucose (Glutose) 15 gm Q15M PRN BUCCAL DECREASED GLUCOSE; Start 02/23/16 at 23 :15 Metoclopramide HCl (Reglan) 10 mg Q6 IV Last administered on 03/14/16at 12:22; Admin Dose 10 MG; Start 03/04/16 at 06:00 Acetaminophen (Tylenol Tab) 650 mg Q6H PRN NGT PAIN AND OR ELEVATED TEMP Last administered on 03/13/16at 14:33; Admin Dose 650 MG; Start 03/06/16 at 11:30 Glucose (Glutose) 15 gm Q15M PRN NGT DECREASED GLUCOSE; Start 03/06/16 at 08: 45 Hydralazine HCl (Apresoline) 100 mg Q8 NGT Last administered on 03/14/16at 14: 50; Admin Dose 100 MG; Start 03/06/16 at 14:00 Metoprolol Tartrate (Lopressor) 150 mg Q8 NGT Last administered on 03/14/16at 14:51; Admin Dose 150 MG; Start 03/06/16 at 14:00 Hydralazine HCl 10 mg 10 mg Q4H PRN IV ELEVATED SYSTOLIC BP Last administered on 03/09/16at 10:52; Admin Dose 10 MG; Start 03/06/16 at 16:00 Dextrose (D5W) 1,000 ml @ 80 mls/hr [id number] IV Last administered on at 05:41; Admin Dose 80 MLS/HR; Start 03/08/16 at 11:30 Amlodipine Besylate (Norvasc) 10 mg DAILY PO Last administered on 03/14/16 09 :52; Admin Dose 10 MG; Start 03/09/16 at 17:00 Minoxidil 10 mg 10 mg BID NGT Last administered on 03/14/16 08:34; Admin Dose 10 MG; Start 03/09/16 at 21:00 Propofol (Diprivan) 100 ml @ 3.189 mls/ hr Q12H IV Last administered on 14:30; Admin Dose 31.89 MLS/HR; Start 03/10/16 at 00:00 Insulin Aspart NOVOLOG *MODERATE* ALGORI... Q6 SC Last administered on 05:45; Admin Dose 2 UNIT; Start 03/10/16 at 06:00 Levetiracetam/ Dextrose (Keppra Iv/D5W) 115 ml @ 460 mls/hr Q12 IVPB Last administered on 03/14/16 08:34; Admin Dose 460 MLS/HR; Start 03/11/16 at 21: 00 Diltiazem HCl (Cardizem) 90 mg Q8 PO Last administered on 03/14/16 14:50; Admin Dose 90 MG; Start 03/12/16 at 14:00 Fluconazole 100 mg 100 mg DAILY PO Last administered on 03/14/16 08:34; Admin Dose 100 MG; Start 03/12/16 at 14:30 Piperacillin Sod/ Tazobactam Sod 50 ml @ 100 mls/hr Q8 IVPB Last administered on 03/14/16 14:50; Admin Dose 100 MLS/HR; Start 03/12/16 at 15:00 Vancomycin HCl 1.5 gm/Sodium Chloride 250 ml @ 83.333 mls/ hr Q24H IVPB Last administered on 03/14/16 05:42; Admin Dose 83.333 MLS/HR; Start 03/14/16 at 04:00; Status Future Hold Fentanyl 1000 mcg/ Dextrose 100 ml @ 2.5 mls/hr TITRATE IV Last administered on 03/14/16 09:25; Admin Dose 2.5 MLS/HR; Start 03/13/16 at 18:00 Pantoprazole/ Sodium Chloride (Protonix Iv/NS) 100 ml @ 10 mls/hr Q10H IV Last administered on 03/14/16 09:52; Admin Dose 10 MLS/HR; Start 03/14/16 at 10:30 Furosemide (Lasix) 20 mg DAILY IV ; Start 03/15/16 at 09:00 SASHA OWEN MD Mar 14, 2016 16:22
--- NOTE | 2016-03-14 16:22 | CONS ---
Date/Time of Note Date/Time of Note DATE: 03/14/16 TIME: 16:17 Assessment/Plan Assessment/Plan Additional Assessment/Plan Coffee-ground emesis/Anemia * Continue PPI drip * Restart G-tube feed * Check H&H every 6 hours, transfuse 2 units for hemoglobin less than 7.5 * Emergent EGD with precipitous drop of hemoglobin and/or overt signs of the UGIB Dysphasia, status post NG tube placement * Monitor residual every 6 hours, hold NG tube feed for residual greater than 150mL Type B aortic dissection * No surgery planned Thrombus in left cephalic vein * Heparin on hold due to drop in hemoglobin Further recommendations depend on clinical course Consultation Date/Type/Reason Admit Date/Time Feb 18, 2016 at 09:14 Hx of Present Illness 45-year-old male presented to ED originally with chest pain and abdominal pain after 5 days ago of not being on his antihypertensive medications. During course of hospitalization, patient deemed to have a type B aortic dissection, DVT and left cephalic vein thrombosis with no evidence of deep vein thrombosis. Patient is presently intubated and on NG tube feed. Patient was noted yesterday with coffee-ground emesis with evaluation of residual and tube feeds stopped since yesterday. Patient's hemoglobin currently at 7.0 and getting 1 unit PRBC transfused. Patient currently on Protonix drip. Will recommend EGD only if emergent, i.e. precipitous drop in hemoglobin and/or overt signs of GI bleeding. Constitutional: other (on vent) Cardiovascular: no complaints Gastrointestinal: no complaints Genitourinary: no complaints Musculoskeletal: no complaints Skin: no complaints Psychological: no complaints Past Medical History Medical History: hypertension Social History Alcohol Use: none Smoking Status: Never smoker Drug Use: none Exam/Review of Systems Vital Signs Vitals Vital Signs Date Time Temp Pulse Resp B/P Pulse Ox O2 Delivery O2 Flow Rate FiO2 03/14/16 15:15 70 25 99 03/14/16 15:00 134/59 03/14/16 14:45 Mechanical Ventilator 03/14/16 12:00 98.9 03/14/16 08:00 100 Intake and Output 03/13/16 03/13/16 03/14/16 14:59 22:59 06:59 Intake Total 1310.12 ml 1162.56 ml 1310 ml Output Total 125 ml 320 ml 175 ml Balance 1185.12 ml 842.56 ml 1135 ml Exam Constitutional: non-verbal, obese ENMT: intubated Cardiovascular: regular rate and rhythm Gastrointestinal: nl liver, spleen, non-tender, soft Neurological: unresponsive Results Result Diagram: 03/14/16 0535 03/14/16 0535 Results 24 hrs Laboratory Tests Test 03/13/16 18:01 03/13/16 18:50 03/14/16 00:26 03/14/16 05:00 Bedside Glucose 148 143 Hematocrit 21.5 L Hemoglobin 7.4 L Arterial Blood HCO3 26.3 H Arterial Blood Base Excess -0.8 Arterial Blood Oxygen Saturation 95.8 Jovanny Test ACCEPTAB Arterial Blood Gas Puncture Site Right Radial Arterial Blood Carboxyhemoglobin 0.3 Arterial Blood Date Drawn 03/14/2016 5:30:48 AM Arterial Blood Methemoglobin 0.5 Arterial Blood pCO2 (Temp correct) 57.6 H Arterial Blood pH (Temp corrected) 7.277 *L Arterial Blood pO2 (Temp corrected) 90.7 Blood Gas A-a O2 Differential 564.7 H Blood Gas Actual Respiration Rate 20 Blood Gas Critical Value Read Back RPARDILLA RN Blood Gas Low PEEP Setting 10.0 Blood Gas Modality VENT - AC Blood Gas Notified Time 03/14/2016 5:46:56 AM Blood Gas Notified Whom MA Blood Gas Respiration Rate 20.0 Blood Gas Specimen Source Blood arterial Blood Gas Temperature 37.0 Blood Gas Tidal Volume 550.0 FiO2 100.0 Oxyhemoglobin Percent 95.0 Total Hemoglobin 8.1 L Test 03/14/16 05:18 03/14/16 05:35 03/14/16 06:05 03/14/16 07:00 Bedside Glucose 145 Anion Gap 18 H Band Neutrophils % 4.0 Blood Morphology Comment Blood Urea Nitrogen 46 H Calcium Level 8.7 Carbon Dioxide Level 25 Chloride Level 94 L Creatinine 3.20 #H Eosinophils # 0.8 H Eosinophils % 4.0 Glucose Level 148 Hematocrit 21.4 L Hemoglobin 7.0 L Lymphocytes # 1.4 Lymphocytes % 7.0 L Magnesium Level 2.4 Mean Corpuscular Hemoglobin 26.1 L Mean Corpuscular Hemoglobin Concent 32.8 Mean Corpuscular Volume 79.5 L Mean Platelet Volume 9.9 Metamyelocytes # 0.2 Metamyelocytes % 1.0 H Monocytes # 0.6 Monocytes % 3.0 Myelocytes # 0.4 Myelocytes % 2.0 H Neutrophils # 16.1 H Neutrophils % 78.0 H Phosphorus Level 10.3 #H Platelet Count 275 Potassium Level 4.2 Promyelocytes # 0.2 Promyelocytes % 1.0 H Red Blood Count 2.70 L Red Cell Distribution Width 17.1 H Sodium Level 133 L White Blood Count 20.6 H Activated Partial Thromboplast Time 66.4 H Arterial Blood HCO3 24.0 Arterial Blood Base Excess -2.3 Arterial Blood Oxygen Saturation 95.9 Jovanny Test ACCEPTAB Arterial Blood Gas Puncture Site Right Radial Arterial Blood Carboxyhemoglobin 0.3 Arterial Blood Date Drawn 03/14/2016 7:40:39 AM Arterial Blood Methemoglobin 0.4 Arterial Blood pCO2 (Temp correct) 49.6 H Arterial Blood pH (Temp corrected) 7.302 L Arterial Blood pO2 (Temp corrected) 90.5 Blood Gas A-a O2 Differential 572.9 H Blood Gas Actual Respiration Rate 24 Blood Gas Low PEEP Setting 10.0 Blood Gas Modality VENT - AC Blood Gas Notified Time 03/14/2016 8:27:18 AM Blood Gas Notified Whom JLD Blood Gas Respiration Rate 24.0 Blood Gas Specimen Source Blood arterial Blood Gas Temperature 37.0 Blood Gas Tidal Volume 550.0 FiO2 100.0 Oxyhemoglobin Percent 95.2 Total Hemoglobin 7.3 L Test 03/14/16 07:40 03/14/16 12:25 Urine Amorphous Urates MANY Urine Bacteria MODERATE Urine Bilirubin NEGATIVE Urine Clarity CLOUDY H Urine Coarse Granular Casts FEW Urine Color LT. YELLOW Urine Epithelial Cells FEW Urine Fine Granular Casts Urine Glucose NEGATIVE Urine Hemoglobin 1+ H Urine Ketones NEGATIVE Urine Leukocyte Esterase NEGATIVE Urine Microscopic RBC 10-25 Urine Microscopic WBC 0-2 Urine Nitrite NEGATIVE Urine Specific [place] 1.025 Urine Total Protein 1+ H Urine Urobilinogen 0.2 E.U./dL Urine pH 5.0 Bedside Glucose 122 Medications Medications Current Medications Ondansetron HCl (Zofran Inj) 4 mg Q6H PRN IV NAUSEA AND/OR VOMITING; Start 02/18/16 at 09:30 Acetaminophen (Tylenol Supp) 650 mg Q4H PRN [place] PAIN LEVEL 1-3 OR FEVER Last administered on 02/24/16at 14:32; Admin Dose 650 MG; Start 02/18/16 at 09:30 Morphine Sulfate (morphine) 2 mg Q4H PRN IV PAIN LEVEL 7-10 Last administered on 03/11/16at 16:13; Admin Dose 2 MG; Start 02/18/16 at 09:30 Bisacodyl (Dulcolax Supp) 10 mg DAILY PRN [place] CONSTIPATION; Start 02/18/16 at 09 :30 Metoprolol Tartrate (Lopressor) 5 mg Q4H PRN IV HR>55 Hold SBP<100 Last administered on 03/09/16at 12:08; Admin Dose 5 MG; Start 02/21/16 at 11:30 IV Flush (NS 10 ml) 10 ml PRN PRN IV IV PROTOCOL; Start 02/21/16 at 18:30 Ferrous Sulfate (Feosol Liquid Cup) 300 mg BID GTB Last administered on at 08:33; Admin Dose 300 MG; Start 02/22/16 at 10:00 Lorazepam (Ativan) 1 mg Q1H PRN IV ANXIETY Last administered on 03/13/16at 14: 10; Admin Dose 1 MG; Start 02/23/16 at 11:30 Miscellaneous Information 1 ea NOTE XX ; Start 02/23/16 at 23:15 Glucose (Glutose) 22.5 gm Q15M PRN PO DECREASED GLUCOSE; Start 02/23/16 at 23: 15 Dextrose (D50w Syringe) 25 ml Q15M PRN IV DECREASED GLUCOSE; Start 02/23/16 at 23:15 Dextrose (D50w Syringe) 50 ml Q15M PRN IV DECREASED GLUCOSE; Start 02/23/16 at 23:15 Glucagon (Glucagen) 1 mg Q15M PRN IM DECREASED GLUCOSE; Start 02/23/16 at 23:15 Glucose (Glutose) 15 gm Q15M PRN BUCCAL DECREASED GLUCOSE; Start 02/23/16 at 23 :15 Metoclopramide HCl (Reglan) 10 mg Q6 IV Last administered on 03/14/16at 12:22; Admin Dose 10 MG; Start 03/04/16 at 06:00 Acetaminophen (Tylenol Tab) 650 mg Q6H PRN NGT PAIN AND OR ELEVATED TEMP Last administered on 03/13/16at 14:33; Admin Dose 650 MG; Start 03/06/16 at 11:30 Glucose (Glutose) 15 gm Q15M PRN NGT DECREASED GLUCOSE; Start 03/06/16 at 08: 45 Hydralazine HCl (Apresoline) 100 mg Q8 NGT Last administered on 03/14/16 14: 50; Admin Dose 100 MG; Start 03/06/16 at 14:00 Metoprolol Tartrate (Lopressor) 150 mg Q8 NGT Last administered on 03/14/16 14:51; Admin Dose 150 MG; Start 03/06/16 at 14:00 Hydralazine HCl 10 mg 10 mg Q4H PRN IV ELEVATED SYSTOLIC BP Last administered on 03/09/16 10:52; Admin Dose 10 MG; Start 03/06/16 at 16:00 Dextrose (D5W) 1,000 ml @ 80 mls/hr [id number] IV Last administered on 05:41; Admin Dose 80 MLS/HR; Start 03/08/16 at 11:30 Amlodipine Besylate (Norvasc) 10 mg DAILY PO Last administered on 03/14/16 09 :52; Admin Dose 10 MG; Start 03/09/16 at 17:00 Minoxidil 10 mg 10 mg BID NGT Last administered on 03/14/16 08:34; Admin Dose 10 MG; Start 03/09/16 at 21:00 Propofol (Diprivan) 100 ml @ 3.189 mls/ hr Q12H IV Last administered on 14:30; Admin Dose 31.89 MLS/HR; Start 03/10/16 at 00:00 Insulin Aspart NOVOLOG *MODERATE* ALGORI... Q6 SC Last administered on 05:45; Admin Dose 2 UNIT; Start 03/10/16 at 06:00 Levetiracetam/ Dextrose (Keppra Iv/D5W) 115 ml @ 460 mls/hr Q12 IVPB Last administered on 03/14/16 08:34; Admin Dose 460 MLS/HR; Start 03/11/16 at 21: 00 Diltiazem HCl (Cardizem) 90 mg Q8 PO Last administered on 03/14/16 14:50; Admin Dose 90 MG; Start 03/12/16 at 14:00 Fluconazole 100 mg 100 mg DAILY PO Last administered on 03/14/16 08:34; Admin Dose 100 MG; Start 12/27/16 at 14:30 Piperacillin Sod/ Tazobactam Sod 50 ml @ 100 mls/hr Q8 IVPB Last administered on 03/14/16at 14:50; Admin Dose 100 MLS/HR; Start 03/12/16 at 15:00 Vancomycin HCl 1.5 gm/Sodium Chloride 250 ml @ 83.333 mls/ hr Q24H IVPB Last administered on 03/14/16at 05:42; Admin Dose 83.333 MLS/HR; Start 03/14/16 at 04:00; Status Future Hold Fentanyl 1000 mcg/ Dextrose 100 ml @ 2.5 mls/hr TITRATE IV Last administered on 03/14/16at 09:25; Admin Dose 2.5 MLS/HR; Start 03/13/16 at 18:00 Pantoprazole/ Sodium Chloride (Protonix Iv/NS) 100 ml @ 10 mls/hr Q10H IV Last administered on 03/14/16at 09:52; Admin Dose 10 MLS/HR; Start 03/14/16 at 10:30 Furosemide (Lasix) 20 mg DAILY IV ; Start 03/15/16 at 09:00 AZAR SHELL MD Mar 14, 2016 16:22
--- NOTE | 2016-03-14 16:23 | CONS ---
Date/Time of Note Date/Time of Note DATE: 03/14/16 TIME: 16:21 Consult Date/Type/Reason Admit Date/Time Feb 18, 2016 at 09:14 Initial Consult Date 02/26/16 Type of Consultation: neurology Reason for Consultation anoxia eval, seizures Ordering Provider: MOSES HARRIS MD Subjective no improvement in exam unable to wean off vent no movement when taken off sedation Objective Vital Signs Date Time Temp Pulse Resp B/P Pulse Ox O2 Delivery O2 Flow Rate FiO2 03/14/16 15:15 70 25 99 03/14/16 15:00 134/59 03/14/16 14:45 Mechanical Ventilator 03/14/16 12:00 98.9 03/14/16 08:00 100 Intake and Output 03/13/16 03/13/16 03/14/16 14:59 22:59 06:59 Intake Total 1310.12 ml 1162.56 ml 1310 ml Output Total 125 ml 320 ml 175 ml Balance 1185.12 ml 842.56 ml 1135 ml Limited exam due to sedation on propofol drip unable to open eyes spontaneously, no spontaneous movement noted has corneals and gag reflex no muscle fasiculations seen today Results/Medications Result Diagram: 03/14/16 0535 03/14/16 0535 Results 24 hrs Laboratory Tests Test 03/13/16 18:01 03/13/16 18:50 03/14/16 00:26 03/14/16 05:00 Bedside Glucose 148 143 Hematocrit 21.5 L Hemoglobin 7.4 L Arterial Blood HCO3 26.3 H Arterial Blood Base Excess -0.8 Arterial Blood Oxygen Saturation 95.8 Jovanny Test ACCEPTAB Arterial Blood Gas Puncture Site Right Radial Arterial Blood Carboxyhemoglobin 0.3 Arterial Blood Date Drawn 03/14/2016 5:30:48 AM Arterial Blood Methemoglobin 0.5 Arterial Blood pCO2 (Temp correct) 57.6 H Arterial Blood pH (Temp corrected) 7.277 *L Arterial Blood pO2 (Temp corrected) 90.7 Blood Gas A-a O2 Differential 564.7 H Blood Gas Actual Respiration Rate 20 Blood Gas Critical Value Read Back JENNIFER RN Blood Gas Low PEEP Setting 10.0 Blood Gas Modality VENT - AC Blood Gas Notified Time 03/14/2016 5:46:56 AM Blood Gas Notified Whom MA Blood Gas Respiration Rate 20.0 Blood Gas Specimen Source Blood arterial Blood Gas Temperature 37.0 Blood Gas Tidal Volume 550.0 FiO2 100.0 Oxyhemoglobin Percent 95.0 Total Hemoglobin 8.1 L Test 03/14/16 05:18 03/14/16 05:35 03/14/16 06:05 03/14/16 07:00 Bedside Glucose 145 Anion Gap 18 H Band Neutrophils % 4.0 Blood Morphology Comment Blood Urea Nitrogen 46 H Calcium Level 8.7 Carbon Dioxide Level 25 Chloride Level 94 L Creatinine 3.20 #H Eosinophils # 0.8 H Eosinophils % 4.0 Glucose Level 148 Hematocrit 21.4 L Hemoglobin 7.0 L Lymphocytes # 1.4 Lymphocytes % 7.0 L Magnesium Level 2.4 Mean Corpuscular Hemoglobin 26.1 L Mean Corpuscular Hemoglobin Concent 32.8 Mean Corpuscular Volume 79.5 L Mean Platelet Volume 9.9 Metamyelocytes # 0.2 Metamyelocytes % 1.0 H Monocytes # 0.6 Monocytes % 3.0 Myelocytes # 0.4 Myelocytes % 2.0 H Neutrophils # 16.1 H Neutrophils % 78.0 H Phosphorus Level 10.3 #H Platelet Count 275 Potassium Level 4.2 Promyelocytes # 0.2 Promyelocytes % 1.0 H Red Blood Count 2.70 L Red Cell Distribution Width 17.1 H Sodium Level 133 L White Blood Count 20.6 H Activated Partial Thromboplast Time 66.4 H Arterial Blood HCO3 24.0 Arterial Blood Base Excess -2.3 Arterial Blood Oxygen Saturation 95.9 Jovanny Test ACCEPTAB Arterial Blood Gas Puncture Site Right Radial Arterial Blood Carboxyhemoglobin 0.3 Arterial Blood Date Drawn 03/14/2016 7:40:39 AM Arterial Blood Methemoglobin 0.4 Arterial Blood pCO2 (Temp correct) 49.6 H Arterial Blood pH (Temp corrected) 7.302 L Arterial Blood pO2 (Temp corrected) 90.5 Blood Gas A-a O2 Differential 572.9 H Blood Gas Actual Respiration Rate 24 Blood Gas Low PEEP Setting 10.0 Blood Gas Modality VENT - AC Blood Gas Notified Time 03/14/2016 8:27:18 AM Blood Gas Notified Whom JLD Blood Gas Respiration Rate 24.0 Blood Gas Specimen Source Blood arterial Blood Gas Temperature 37.0 Blood Gas Tidal Volume 550.0 FiO2 100.0 Oxyhemoglobin Percent 95.2 Total Hemoglobin 7.3 L Test 03/14/16 07:40 03/14/16 12:25 Urine Amorphous Urates MANY Urine Bacteria MODERATE Urine Bilirubin NEGATIVE Urine Clarity CLOUDY H Urine Coarse Granular Casts FEW Urine Color LT. YELLOW Urine Epithelial Cells FEW Urine Fine Granular Casts Urine Glucose NEGATIVE Urine Hemoglobin 1+ H Urine Ketones NEGATIVE Urine Leukocyte Esterase NEGATIVE Urine Microscopic RBC 10-25 Urine Microscopic WBC 0-2 Urine Nitrite NEGATIVE Urine Specific [place] 1.025 Urine Total Protein 1+ H Urine Urobilinogen 0.2 E.U./dL Urine pH 5.0 Bedside Glucose 122 Medications Current Medications Ondansetron HCl (Zofran Inj) 4 mg Q6H PRN IV NAUSEA AND/OR VOMITING; Start 02/18/16 at 09:30 Acetaminophen (Tylenol Supp) 650 mg Q4H PRN IN PAIN LEVEL 1-3 OR FEVER Last administered on 02/24/16at 14:32; Admin Dose 650 MG; Start 02/18/16 at 09:30 Morphine Sulfate (morphine) 2 mg Q4H PRN IV PAIN LEVEL 7-10 Last administered on 03/11/16at 16:13; Admin Dose 2 MG; Start 02/18/16 at 09:30 Bisacodyl (Dulcolax Supp) 10 mg DAILY PRN IN CONSTIPATION; Start 02/18/16 at 09 :30 Metoprolol Tartrate (Lopressor) 5 mg Q4H PRN IV HR>55 Hold SBP<100 Last administered on 03/09/16at 12:08; Admin Dose 5 MG; Start 02/21/16 at 11:30 IV Flush (NS 10 ml) 10 ml PRN PRN IV IV PROTOCOL; Start 02/21/16 at 18:30 Ferrous Sulfate (Feosol Liquid Cup) 300 mg BID GTB Last administered on at 08:33; Admin Dose 300 MG; Start 02/22/16 at 10:00 Lorazepam (Ativan) 1 mg Q1H PRN IV ANXIETY Last administered on 03/13/16at 14: 10; Admin Dose 1 MG; Start 02/23/16 at 11:30 Miscellaneous Information 1 ea NOTE XX ; Start 02/23/16 at 23:15 Glucose (Glutose) 22.5 gm Q15M PRN PO DECREASED GLUCOSE; Start 02/23/16 at 23: 15 Dextrose (D50w Syringe) 25 ml Q15M PRN IV DECREASED GLUCOSE; Start 02/23/16 at 23:15 Dextrose (D50w Syringe) 50 ml Q15M PRN IV DECREASED GLUCOSE; Start 02/23/16 at 23:15 Glucagon (Glucagen) 1 mg Q15M PRN IM DECREASED GLUCOSE; Start 02/23/16 at 23:15 Glucose (Glutose) 15 gm Q15M PRN BUCCAL DECREASED GLUCOSE; Start 02/23/16 at 23 :15 Metoclopramide HCl (Reglan) 10 mg Q6 IV Last administered on 03/14/16at 12:22; Admin Dose 10 MG; Start 03/04/16 at 06:00 Acetaminophen (Tylenol Tab) 650 mg Q6H PRN NGT PAIN AND OR ELEVATED TEMP Last administered on 03/13/16at 14:33; Admin Dose 650 MG; Start 03/06/16 at 11:30 Glucose (Glutose) 15 gm Q15M PRN NGT DECREASED GLUCOSE; Start 03/06/16 at 08: 45 Hydralazine HCl (Apresoline) 100 mg Q8 NGT Last administered on 03/14/16at 14: 50; Admin Dose 100 MG; Start 03/06/16 at 14:00 Metoprolol Tartrate (Lopressor) 150 mg Q8 NGT Last administered on 03/14/16at 14:51; Admin Dose 150 MG; Start 03/06/16 at 14:00 Hydralazine HCl 10 mg 10 mg Q4H PRN IV ELEVATED SYSTOLIC BP Last administered on 03/09/16at 10:52; Admin Dose 10 MG; Start 03/06/16 at 16:00 Dextrose (D5W) 1,000 ml @ 80 mls/hr [id number] IV Last administered on at 05:41; Admin Dose 80 MLS/HR; Start 03/08/16 at 11:30 Amlodipine Besylate (Norvasc) 10 mg DAILY PO Last administered on 03/14/16at 09 :52; Admin Dose 10 MG; Start 03/09/16 at 17:00 Minoxidil 10 mg 10 mg BID NGT Last administered on 03/14/16at 08:34; Admin Dose 10 MG; Start 03/09/16 at 21:00 Propofol (Diprivan) 100 ml @ 3.189 mls/ hr Q12H IV Last administered on 14:30; Admin Dose 31.89 MLS/HR; Start 03/10/16 at 00:00 Insulin Aspart NOVOLOG *MODERATE* ALGORI... Q6 SC Last administered on 05:45; Admin Dose 2 UNIT; Start 03/10/16 at 06:00 Levetiracetam/ Dextrose (Keppra Iv/D5W) 115 ml @ 460 mls/hr Q12 IVPB Last administered on 03/14/16 08:34; Admin Dose 460 MLS/HR; Start 03/11/16 at 21: 00 Diltiazem HCl (Cardizem) 90 mg Q8 PO Last administered on 03/14/16 14:50; Admin Dose 90 MG; Start 03/12/16 at 14:00 Fluconazole 100 mg 100 mg DAILY PO Last administered on 03/14/16 08:34; Admin Dose 100 MG; Start 03/12/16 at 14:30 Piperacillin Sod/ Tazobactam Sod 50 ml @ 100 mls/hr Q8 IVPB Last administered on 03/14/16 14:50; Admin Dose 100 MLS/HR; Start 03/12/16 at 15:00 Vancomycin HCl 1.5 gm/Sodium Chloride 250 ml @ 83.333 mls/ hr Q24H IVPB Last administered on 03/14/16 05:42; Admin Dose 83.333 MLS/HR; Start 03/14/16 at 04:00; Status Future Hold Fentanyl 1000 mcg/ Dextrose 100 ml @ 2.5 mls/hr TITRATE IV Last administered on 03/14/16 09:25; Admin Dose 2.5 MLS/HR; Start 03/13/16 at 18:00 Pantoprazole/ Sodium Chloride (Protonix Iv/NS) 100 ml @ 10 mls/hr Q10H IV Last administered on 03/14/16 09:52; Admin Dose 10 MLS/HR; Start 03/14/16 at 10:30 Furosemide (Lasix) 20 mg DAILY IV ; Start 03/15/16 at 09:00 Calcium Carbonate (Tums) 500 mg TID PO ; Start 03/14/16 at 21:00; Status UNV Assessment/Plan Chief Complaint/Hosp Course 45 y/o M admitted for management of hypertensive emergency, with aortic dissection, FARRUKH, aspiration pneumonia and respiratory failure, briefly extubated requiring re-intubation. Tremors were noted over the weekend, dose of Keppra was increased to [address] on 02/22 unrevealing shows chronic microvascular changes, no acute ischemic changes/ hemorrhage. Repeat Head CT: no ICH, mass effect or midline shift, increase in ventricle size likely related to improving cerebral edema. Recommendations: -continue frequent neuro exams off sedation -Routine EEG shows left frontal sharps continue on Keppra 1500 mg BID -would obtain repeat CTH to r/o structural reason for seizures -when patient is more stable please obtain MRI Brain without contrast, MRA Head/ Neck without contrast to evaluate for areas of ischemia/ structural abnormalities -please re-consult when repeat imaging is done Problems: JAIRON MCNAIR MD Mar 14, 2016 16:23
[2016-03-14 17:14] LABS: CK-MB 0.64 ng/ml (0.0-2.4)
[2016-03-14 17:17] LABS: TROPONIN-I 0.021 ng/ml (0.00-0.12)
--- NOTE | 2016-03-14 17:31 | PN ---
DATE: 03/14/2016 SUBJECTIVE: Patient developed upper GI bleeding. Heparin on hold. He is intubated, sedated, and l jahaira comfortably in bed. VITAL SIGNS: T-max 99.7, T-current 98.9, pulse 70, respirations 25, blood pressure 134/59, saturati on 99% on vent. WBC 20.6, H and H 7 and 21.4, platelets 275, neutrophils 78, bands 4, lymphs 7, mon os 3, BUN 46, creatinine 3.0. MICROBIOLOGY: Urinalysis from this morning revealed negative leukocyte esterase, positive for moder ate amount of bacteria and white blood cell count. Microbiology, all cultures have been negative. DIAGNOSTICS: Chest x-ray this morning revealed stable dense infiltrates throughout both lungs, poss ibly combined small pleural effusions. INDWELLINGS: Endotracheal tube, NG tube, Smalls, PICC line placed on 02/21/2016. ANTIMICROBIALS: 1. Vancomycin. 2. Zosyn. 3. Fluconazole. PHYSICAL EXAMINATION: GENERAL: This is an obese, well-developed, middle-aged man who is lying comfortabl y in bed. HEENT: Head atraumatic, normocephalic. Sclerae anicteric. Buccal mucosa dry. NECK: Supple. CHEST: Rise symmetrical. Breath sounds diminished to bases. HEART: S1, S2. ABDOMEN: Distended, soft. Bowel tones hypoactive. EXTREMITIES: Bilateral edema. ASSESSMENT: 1. Ongoing sepsis with low grade fever and persistent leukocytosis with bandemia. 2. Healthcare-associated pneumonia, possibly aspiration event, status post reintubated. 3. Acute respiratory failure. 4. Gastrointestinal bleeding. 5. Accelerated hypertension. 6. New onset of seizure disorder. 7. Pulmonary emboli. 8. Type B aortic dissection. 9. Oral thrush. PLAN: The patient remains hemodynamically stable, getting blood transfusions, covered with broad sp ectrum antibiotics. Gastroenterology, pulmonary, cardiothoracic surgery, cardiology and neurology o n case. Dictated By: HUSAM SANFORD LEGAL RECRUITER for YESIKA LOPEZ/EFRAIN Conf#: [id number] DID#: [id number]
[2016-03-14] MEDS: CALCIUM CARBONATE 500 MG CHEW TAB PO SCH (18:05)
[2016-03-14 18:26] LABS: HEMATOCRIT 21.8 % (42.0-52.0); HEMOGLOBIN 7.4 g/dl (14.0-18.0)
[2016-03-14] MEDS ORDERED: ALBUMIN HUMAN 25% 100 ML IV ONE (21:00)
--- NOTE | 2016-03-14 22:31 | PN ---
Date/Time of Note Date/Time of Note DATE: 03/14/16 TIME: 22:30 Assessment/Plan Lines/Catheters IV Catheter Type (from Nrsg): PICC Line Smalls in Place (from Nrsg): Yes Assessment/Plan Chief Complaint/Hosp Course IMPRESSION: Type B aortic dissection. The patient's blood pressure more controlled RECOMMENDATIONS: At this time, we would continue blood pressure management, monitor vital signs and laboratory values in an intensive care unit setting. Vent support per pulm medicine No plan for surgery. Abx Repeat CTA Dissection involving the thoracic aorta arising distal to the origin of the left subclavian artery and extending into the abdominal aorta. The distal extent was not included on the study. Flow within both true and false lumen to the level of the celiac artery. Would continue BP control , Vent support Type B aortic dissection PE, anticoagulation follow neurology recc. no plan for surgery at this time I discussed with the patient and Dr. Mccabe and staff Problems: Subjective 24 Hr Interval Summary Constitutional: improved Pain Control: mild Exam/Review of Systems Vital Signs Vitals Vital Signs Date Time Temp Pulse Resp B/P Pulse Ox O2 Delivery O2 Flow Rate FiO2 03/14/16 20:00 99.5 67 29 136/66 96 Mechanical Ventilator 03/14/16 17:25 100 Intake and Output 03/13/16 03/13/16 03/14/16 15:00 23:00 07:00 Intake Total 1300.12 ml 1170.67 ml 1210 ml Output Total 190 ml 270 ml 150 ml Balance 1110.12 ml 900.67 ml 1060 ml Exam Neck: non-tender, supple Respiratory: clear to auscultation, normal air movement Cardiovascular: nl pulses, regular rate and rhythm Gastrointestinal: nl liver, spleen, non-tender, soft Results Result Diagram: 03/14/16 1820 03/14/16 0535 KAYLYN RADFORD MD Mar 14, 2016 22:31
[2016-03-15] VITALS (60 sets, daily range): BP systolic 83–132; BP diastolic 44–71; PULSE 45–71; RESP 12–28
[2016-03-15] MEDS: DEXTROSE 5% 1,000 ML IV SCH ×2 (00:55→05:48)
[2016-03-15] MEDS: METOCLOPRAMIDE 10 MG INJ IV SCH ×5 (00:55→23:54)
[2016-03-15] MEDS: PROPOFOL 100 ML IV SCH ×4 (00:56→13:49)
[2016-03-15 01:27] LABS: HEMATOCRIT 23.5 % (42.0-52.0); HEMOGLOBIN 7.7 g/dl (14.0-18.0)
[2016-03-15] MEDS: ALBUTEROL HFA 8 GM INHALER INH SCH ×4 (01:45→19:57)
[2016-03-15] MEDS: IPRATROPIUM (HFA) 12.9 GM INHALER INH SCH ×4 (01:47→19:57)
[2016-03-15] MEDS: PANTOPRAZOLE IV 80 MG in SOD CHLORIDE 0.9% 100 ML IV SCH ×2 (04:21→15:44)
[2016-03-15 05:06] LABS: HEMATOCRIT 22.6 % (42.0-52.0); HEMOGLOBIN 7.4 g/dl (14.0-18.0); MEAN CORPUSCULAR HEMOGLOBIN 26.3 pg (29.0-33.0); MEAN CORPUSCULAR HGB CONC 32.7 g/dl (32.0-37.0); MEAN CORPUSCULAR VOLUME 80.3 fl (82.0-101.0); MEAN PLATELET VOLUME 9.6 fl (7.4-10.4); PLATELET COUNT 271 10^3/UL (140-440); RED BLOOD COUNT 2.81 10^6/ul (4.70-6.10); RED CELL DISTRIBUTION WIDTH 17.6 % (11.5-14.5); UNCORRECTED WBC 19.5 10^3/ul (4.8-10.8); WHITE BLOOD COUNT 19.5 10^3/ul (4.8-10.8)
[2016-03-15 05:12] LABS: CONDITION 1; LH ANALYZER COMMENTS 1
[2016-03-15 05:16] LABS: POTASSIUM 4.4 mmol/L (3.5-5.1)
[2016-03-15 05:22] LABS: MAGNESIUM 2.6 mg/dl (1.7-2.5); PHOSPHORUS 11.9 mg/dl (2.5-4.9)
[2016-03-15 05:37] LABS: CREATININE 4.33 mg/dl (0.61-1.24)
[2016-03-15] MEDS: PIPER-TAZO 2.25 GM (PMX) 50 ML IVPB SCH ×3 (05:53→21:14)
[2016-03-15] MEDS: FUROSEMIDE 20 MG INJ IV SCH ×2 (05:55→18:18)
[2016-03-15] MEDS: DILTIAZEM 30 MG TAB PO SCH ×3 (06:01→22:22)
[2016-03-15] MEDS: METOPROLOL 100 MG TAB NGT SCH ×3 (06:01→22:26)
[2016-03-15] MEDS: INSULIN ASPART [NOVOLOG] 3 ML PEN SC SCH ×5 (06:04→23:54)
[2016-03-15] MEDS ORDERED: NA BICARBONATE 8.4% 50 ML SYG ONE (07:00)
[2016-03-15] MEDS ORDERED: EPINEPHrine 0.1 MG/ML SYG ONE (07:00)
--- NOTE | 2016-03-15 07:24 | CONS ---
Date/Time of Note Date/Time of Note DATE: 03/15/16 TIME: 07:19 Assessment/Plan Assessment/Plan Additional Assessment/Plan Coffee-ground emesis/Anemia * Continue PPI drip * Restart G-tube feed * Check H&H every 6 hours, transfuse 2 units for hemoglobin less than 7.5 * Emergent EGD with precipitous drop of hemoglobin and/or overt signs of the UGIB * Add Carafate 1g QID Dysphasia, status post NG tube placement * Monitor residual every 6 hours, hold NG tube feed for residual greater than 150mL Type B aortic dissection * No surgery planned Thrombus in left cephalic vein * Heparin on hold due to drop in hemoglobin Further recommendations depend on clinical course Consultation Date/Type/Reason Admit Date/Time Feb 18, 2016 at 09:14 Initial Consult Date 02/26/16 Type of Consultation: neurology Referring Provider: MOSES HARRIS MD 24 HR Interval Summary Free Text/Dictation Tube feeds started yesterday Minimal coffee-ground appearance of residual Ordered 1 unit PRBC to be transfused We will continue to monitor Exam/Review of Systems Vital Signs Vitals Vital Signs Date Time Temp Pulse Resp B/P Pulse Ox O2 Delivery O2 Flow Rate FiO2 03/15/16 07:00 62 24 115/58 96 Mechanical Ventilator 03/15/16 05:15 100 03/15/16 04:00 98.9 Intake and Output 03/14/16 03/14/16 03/15/16 15:00 23:00 07:00 Intake Total 1726.134 ml 832.866 ml Output Total 30 ml 400 ml Balance 1696.134 ml 432.866 ml Exam Constitutional: non-verbal, obese ENMT: intubated Cardiovascular: regular rate and rhythm Gastrointestinal: nl liver, spleen, non-tender, soft Neurological: unresponsive Results Result Diagram: 03/15/16 0420 03/15/16 0420 Results 24 hrs Laboratory Tests Test 03/14/16 07:40 03/14/16 12:25 03/14/16 16:40 03/14/16 18:07 Urine Amorphous Urates MANY Urine Bacteria MODERATE Urine Bilirubin NEGATIVE Urine Clarity CLOUDY H Urine Coarse Granular Casts FEW Urine Color LT. YELLOW Urine Epithelial Cells FEW Urine Fine Granular Casts Urine Glucose NEGATIVE Urine Hemoglobin 1+ H Urine Ketones NEGATIVE Urine Leukocyte Esterase NEGATIVE Urine Microscopic RBC 10-25 Urine Microscopic WBC 0-2 Urine Nitrite NEGATIVE Urine Random Creatinine 61.45 Urine Random Sodium 14 L Urine Specific [place] 1.025 Urine Total Protein 1+ H Urine Urobilinogen 0.2 E.U./dL Urine pH 5.0 Bedside Glucose 122 122 Creatine Kinase 32 Creatine Kinase Index 2.0 Creatinine Kinase MB (Mass) 0.64 Troponin I 0.021 Test 03/14/16 18:20 03/15/16 00:52 03/15/16 04:20 03/15/16 06:00 Hematocrit 21.8 L 23.5 L 22.6 L Hemoglobin 7.4 L 7.7 L 7.4 L Bedside Glucose 126 160 Anion Gap 24 H Blood Morphology Comment Blood Urea Nitrogen 58 H Calcium Level 9.0 Carbon Dioxide Level 21 Chloride Level 91 L Creatinine 4.33 #H Glucose Level 129 Magnesium Level 2.6 H Mean Corpuscular Hemoglobin 26.3 L Mean Corpuscular Hemoglobin Concent 32.7 Mean Corpuscular Volume 80.3 L Mean Platelet Volume 9.6 Phosphorus Level 11.9 H Platelet Count 271 Potassium Level 4.4 Red Blood Count 2.81 L Red Cell Distribution Width 17.6 H Sodium Level 132 L White Blood Count 19.5 H Medications Medications Current Medications Ondansetron HCl (Zofran Inj) 4 mg Q6H PRN IV NAUSEA AND/OR VOMITING; Start 02/18/16 at 09:30 Acetaminophen (Tylenol Supp) 650 mg Q4H PRN ND PAIN LEVEL 1-3 OR FEVER Last administered on 02/24/16at 14:32; Admin Dose 650 MG; Start 02/18/16 at 09:30 Morphine Sulfate (morphine) 2 mg Q4H PRN IV PAIN LEVEL 7-10 Last administered on 03/11/16at 16:13; Admin Dose 2 MG; Start 02/18/16 at 09:30 Bisacodyl (Dulcolax Supp) 10 mg DAILY PRN ND CONSTIPATION; Start 02/18/16 at 09 :30 Metoprolol Tartrate (Lopressor) 5 mg Q4H PRN IV HR>55 Hold SBP<100 Last administered on 03/09/16at 12:08; Admin Dose 5 MG; Start 02/21/16 at 11:30 IV Flush (NS 10 ml) 10 ml PRN PRN IV IV PROTOCOL; Start 02/21/16 at 18:30 Ferrous Sulfate (Feosol Liquid Cup) 300 mg BID GTB Last administered on at 21:07; Admin Dose 300 MG; Start 02/22/16 at 10:00 Lorazepam (Ativan) 1 mg Q1H PRN IV ANXIETY Last administered on 03/13/16at 14: 10; Admin Dose 1 MG; Start 02/23/16 at 11:30 Miscellaneous Information 1 ea NOTE XX ; Start 02/23/16 at 23:15 Glucose (Glutose) 22.5 gm Q15M PRN PO DECREASED GLUCOSE; Start 02/23/16 at 23: 15 Dextrose (D50w Syringe) 50 ml Q15M PRN IV DECREASED GLUCOSE; Start 02/23/16 at 23:15 Glucagon (Glucagen) 1 mg Q15M PRN IM DECREASED GLUCOSE; Start 02/23/16 at 23:15 Glucose (Glutose) 15 gm Q15M PRN BUCCAL DECREASED GLUCOSE; Start 02/23/16 at 23 :15 Metoclopramide HCl (Reglan) 10 mg Q6 IV Last administered on 03/15/16at 05:55; Admin Dose 10 MG; Start 03/04/16 at 06:00 Acetaminophen (Tylenol Tab) 650 mg Q6H PRN NGT PAIN AND OR ELEVATED TEMP Last administered on 03/13/16at 14:33; Admin Dose 650 MG; Start 03/06/16 at 11:30 Glucose (Glutose) 15 gm Q15M PRN NGT DECREASED GLUCOSE; Start 03/06/16 at 08: 45 Hydralazine HCl (Apresoline) 100 mg Q8 NGT Last administered on 03/15/16at 06: 01; Admin Dose 100 MG; Start 03/06/16 at 14:00 Metoprolol Tartrate (Lopressor) 150 mg Q8 NGT Last administered on 03/15/16at 06:01; Admin Dose 150 MG; Start 03/06/16 at 14:00 Hydralazine HCl (Apresoline) 10 mg Q4H PRN IV ELEVATED SYSTOLIC BP Last administered on 03/09/16at 10:52; Admin Dose 10 MG; Start 03/06/16 at 16:00 Amlodipine Besylate (Norvasc) 10 mg DAILY PO Last administered on 03/14/16at 09 :52; Admin Dose 10 MG; Start 03/09/16 at 17:00 Minoxidil 10 mg 10 mg BID NGT Last administered on 03/14/16 21:09; Admin Dose 10 MG; Start 03/09/16 at 21:00 Propofol (Diprivan) 100 ml @ 3.189 mls/ hr Q12H IV Last administered on 04:01; Admin Dose 19.134 MLS/HR; Start 03/10/16 at 00:00 Insulin Aspart NOVOLOG *MODERATE* ALGORI... Q6 SC Last administered on 06:04; Admin Dose 2 UNIT; Start 03/10/16 at 06:00 Levetiracetam/ Dextrose (Keppra Iv/D5W) 115 ml @ 460 mls/hr Q12 IVPB Last administered on 03/14/16 21:09; Admin Dose 460 MLS/HR; Start 03/11/16 at 21: 00 Diltiazem HCl (Cardizem) 90 mg Q8 PO Last administered on 03/15/16 06:01; Admin Dose 90 MG; Start 03/12/16 at 14:00 Fluconazole 100 mg 100 mg DAILY PO Last administered on 03/14/16 08:34; Admin Dose 100 MG; Start 03/12/16 at 14:30 Piperacillin Sod/ Tazobactam Sod 50 ml @ 100 mls/hr Q8 IVPB Last administered on 03/15/16 05:53; Admin Dose 100 MLS/HR; Start 03/12/16 at 15:00 Vancomycin HCl 1.5 gm/Sodium Chloride 250 ml @ 83.333 mls/ hr Q24H IVPB Last administered on 03/14/16 05:42; Admin Dose 83.333 MLS/HR; Start 03/14/16 at 04:00; Status Future Hold Fentanyl 1000 mcg/ Dextrose 100 ml @ 2.5 mls/hr TITRATE IV Last administered on 03/14/16 09:25; Admin Dose 2.5 MLS/HR; Start 03/13/16 at 18:00 Pantoprazole 80 mg/Sodium Chloride 100 ml @ 10 mls/hr Q10H IV Last administered on 03/15/16 04:21; Admin Dose 10 MLS/HR; Start 03/14/16 at 10:30 Sodium Chloride 250 ml @ 250 mls/hr Q1H ONCE IV ; Start 03/15/16 at 07:30; Stop 03/15/16 at 08:29 Sodium Chloride (NS) 1,000 ml @ 80 mls/hr [id number] IV ; Start 03/15/16 at 07:30 BRENTON KHAN Mar 15, 2016 07:24
[2016-03-15] MEDS ORDERED: SOD CHLORIDE 0.9% 250 ML IV* ONE (07:25)
[2016-03-15] MEDS ORDERED: SOD CHLORIDE 0.9% 250 ML IV ONE (07:30)
[2016-03-15] MEDS: SOD CHLORIDE 0.9% 1,000 ML IV SCH ×2 (07:39→21:14)
[2016-03-15] MEDS: LEVETIRACETAM IV 1,500 MG in DEXTROSE 5% 100 ML IVPB SCH ×2 (08:10→21:17)
[2016-03-15] MEDS: FERROUS SULFATE 60 MG/ML 5ML CUP GTB SCH ×2 (08:32→21:13)
[2016-03-15] MEDS: SUCRALFATE (100 MG/ML) 10ML CUP NGT SCH ×4 (08:32→21:13)
[2016-03-15] MEDS: FLUCONAZOLE 100 MG TAB PO SCH (08:32)
[2016-03-15] MEDS: CALCIUM CARBONATE 500 MG CHEW TAB PO SCH ×3 (08:32→18:18)
--- NOTE | 2016-03-15 08:59 | PN ---
Date/Time of Note Date/Time of Note DATE: 03/15/16 TIME: 08:55 Assessment/Plan VTE Prophylaxis VTE Prophylaxis Intervention: SCD's Lines/Catheters IV Catheter Type (from Rust): PICC Line Central line still needed: Yes Urinary Cath still in place: Yes Reason Cath still needed: terminal illness/intractable pain Assessment/Plan Chief Complaint/Hosp Course 1. Type B aortic dissection. Continue blood pressure control. Continue ICU monitoring. Status post evaluation by vascular surgery. No surgical intervention as of now. 2. Accelerated hypertension. Currently controlled. On antihypertensives. 3. Acute hypoxic respiratory failure. Etiology unclear. Most probably secondary to aspiration. Continue ventilator support as per pulmonary. The patient was extubated and then re-intubated. 4. Aspiration pneumonia. Continue antibiotics as per infectious diseases. 5. Acute kidney injury, most probably secondary to hemodynamics. Nephrology following. Use nephrotoxic drugs with caution. 6. Left cephalic vein thrombosis. Was on therapeutic anticoagulation. This was put on hold because of worsening H&H. 7. Pulmonary embolism (02/29/2016). Was on therapeutic anticoagulation with heparin gtt. This was put on hold because of worsening H&H. 8. Microcytic hypochromic anemia. Iron panel showing iron deficiency. Continue iron supplements. Will transfuse as needed. 9. Acute encephalopathy, most probably metabolic in origin. Electroencephalography showing background slowing suggesting bihemispheric subcortical dysfunction, possibly epileptiform activity. The patient is on anticonvulsants. Was evaluated by Neurology. 10. Hyperdynamic left ventricular systolic function. Cardiology following. 11. GI bleeding. Heparin drip on hold. On Protonix drip. The patient being followed by gastroenterology. 12. Fluids, electrolytes, and nutrition. IV fluids as per nephrology. Hold NG tube feedings. 13. Deep venous thrombosis prophylaxis. Bilateral SCDs. 14. Gastrointestinal prophylaxis. Proton pump inhibitors. PLAN: Continue intensive care unit monitoring. Ventilator weaning as per pulmonary. Blood transfusion as per gastroenterology. Case discussed with Dr. Mosher. On 03/14/2016, had a conference with the patient's fianc Garrison Martinez in the room, the patient's mother (Julieta Zepeda) from [place] on the phone and the patient's sister on the phone. The plan of care was explained to the patient's family. Patient's poor prognosis was explained. The patient's family wanted to do everything possible to keep the patient alive. The conference was done in the presence of high school social studies teacher. Critical care time 35 minutes. Problems: Subjective 24 Hr Interval Summary Free Text/Dictation Patient getting second unit of PRBC. Exam/Review of Systems Vital Signs Vitals Vital Signs Date Time Temp Pulse Resp B/P Pulse Ox O2 Delivery O2 Flow Rate FiO2 03/15/16 07:00 62 24 115/58 96 Mechanical Ventilator 03/15/16 05:15 100 03/15/16 04:00 98.9 Intake and Output 03/14/16 03/14/16 03/15/16 15:00 23:00 07:00 Intake Total 1726.134 ml 902.866 ml 1468 ml Output Total 30 ml 405 ml 30 ml Balance 1696.134 ml 497.866 ml 1438 ml Exam GENERAL: Obese male lying bed. Orally intubated. HEENT: Head normocephalic and atraumatic. Eyes: Anicteric sclerae. Conjunctivae clear. ENT: Nasal septum is midline. Oral mucosa is dry. NECK: Short and obese. Unable to visualize any neck veins. CARDIAC: Regular rate and rhythm. S1 and S2 heard. ABDOMEN: Protruded. Soft. Bowel sounds hypoactive in all 4 quadrants. GENITOURINARY: The patient has a Smalls catheter in place. EXTREMITIES: No cyanosis, no clubbing. Edema of bilateral lower extremities and bilateral upper extremities. Right upper extremity PICC line in place. Peripheral pulses palpable. NEUROLOGIC: The patient is sedated. Results Result Diagram: 03/15/16 0420 03/15/16 0420 Results 24 hrs Laboratory Tests Test 03/14/16 12:25 03/14/16 16:40 03/14/16 18:07 03/14/16 18:20 Bedside Glucose 122 122 Creatine Kinase 32 Creatine Kinase Index 2.0 Creatinine Kinase MB (Mass) 0.64 Troponin I 0.021 Hematocrit 21.8 L Hemoglobin 7.4 L Test 03/15/16 00:52 03/15/16 04:20 03/15/16 06:00 Bedside Glucose 126 160 Hematocrit 23.5 L 22.6 L Hemoglobin 7.7 L 7.4 L Anion Gap 24 H Blood Morphology Comment Blood Urea Nitrogen 58 H Calcium Level 9.0 Carbon Dioxide Level 21 Chloride Level 91 L Creatinine 4.33 #H Glucose Level 129 Magnesium Level 2.6 H Mean Corpuscular Hemoglobin 26.3 L Mean Corpuscular Hemoglobin Concent 32.7 Mean Corpuscular Volume 80.3 L Mean Platelet Volume 9.6 Phosphorus Level 11.9 H Platelet Count 271 Potassium Level 4.4 Red Blood Count 2.81 L Red Cell Distribution Width 17.6 H Sodium Level 132 L White Blood Count 19.5 H Medications Medications Current Medications Ondansetron HCl (Zofran Inj) 4 mg Q6H PRN IV NAUSEA AND/OR VOMITING; Start 02/18/16 at 09:30 Acetaminophen (Tylenol Supp) 650 mg Q4H PRN [place] PAIN LEVEL 1-3 OR FEVER Last administered on 02/24/16at 14:32; Admin Dose 650 MG; Start 02/18/16 at 09:30 Morphine Sulfate (morphine) 2 mg Q4H PRN IV PAIN LEVEL 7-10 Last administered on 03/11/16at 16:13; Admin Dose 2 MG; Start 02/18/16 at 09:30 Bisacodyl (Dulcolax Supp) 10 mg DAILY PRN [place] CONSTIPATION; Start 02/18/16 at 09 :30 Metoprolol Tartrate (Lopressor) 5 mg Q4H PRN IV HR>55 Hold SBP<100 Last administered on 03/09/16at 12:08; Admin Dose 5 MG; Start 02/21/16 at 11:30 IV Flush (NS 10 ml) 10 ml PRN PRN IV IV PROTOCOL; Start 02/21/16 at 18:30 Ferrous Sulfate (Feosol Liquid Cup) 300 mg BID GTB Last administered on at 08:32; Admin Dose 300 MG; Start 02/22/16 at 10:00 Lorazepam (Ativan) 1 mg Q1H PRN IV ANXIETY Last administered on 03/13/16at 14: 10; Admin Dose 1 MG; Start 02/23/16 at 11:30 Miscellaneous Information 1 ea NOTE XX ; Start 02/23/16 at 23:15 Glucose (Glutose) 22.5 gm Q15M PRN PO DECREASED GLUCOSE; Start 02/23/16 at 23: 15 Dextrose (D50w Syringe) 50 ml Q15M PRN IV DECREASED GLUCOSE; Start 02/23/16 at 23:15 Glucagon (Glucagen) 1 mg Q15M PRN IM DECREASED GLUCOSE; Start 02/23/16 at 23:15 Glucose (Glutose) 15 gm Q15M PRN BUCCAL DECREASED GLUCOSE; Start 02/23/16 at 23 :15 Metoclopramide HCl (Reglan) 10 mg Q6 IV Last administered on 03/15/16at 05:55; Admin Dose 10 MG; Start 03/04/16 at 06:00 Acetaminophen (Tylenol Tab) 650 mg Q6H PRN NGT PAIN AND OR ELEVATED TEMP Last administered on 03/13/16 14:33; Admin Dose 650 MG; Start 03/06/16 at 11:30 Glucose (Glutose) 15 gm Q15M PRN NGT DECREASED GLUCOSE; Start 03/06/16 at 08: 45 Hydralazine HCl (Apresoline) 100 mg Q8 NGT Last administered on 03/15/16 06: 01; Admin Dose 100 MG; Start 03/06/16 at 14:00 Metoprolol Tartrate (Lopressor) 150 mg Q8 NGT Last administered on 03/15/16 06:01; Admin Dose 150 MG; Start 03/06/16 at 14:00 Hydralazine HCl (Apresoline) 10 mg Q4H PRN IV ELEVATED SYSTOLIC BP Last administered on 03/09/16 10:52; Admin Dose 10 MG; Start 03/06/16 at 16:00 Amlodipine Besylate (Norvasc) 10 mg DAILY PO Last administered on 03/14/16 09 :52; Admin Dose 10 MG; Start 03/09/16 at 17:00 Minoxidil 10 mg 10 mg BID NGT Last administered on 03/14/16 21:09; Admin Dose 10 MG; Start 03/09/16 at 21:00 Propofol (Diprivan) 100 ml @ 3.189 mls/ hr Q12H IV Last administered on 08:32; Admin Dose 25.512 MLS/HR; Start 03/10/16 at 00:00 Insulin Aspart NOVOLOG *MODERATE* ALGORI... Q6 SC Last administered on 06:04; Admin Dose 2 UNIT; Start 03/10/16 at 06:00 Levetiracetam/ Dextrose (Keppra Iv/D5W) 115 ml @ 460 mls/hr Q12 IVPB Last administered on 03/15/16 08:10; Admin Dose 460 MLS/HR; Start 03/11/16 at 21: 00 Diltiazem HCl (Cardizem) 90 mg Q8 PO Last administered on 03/15/16 06:01; Admin Dose 90 MG; Start 03/12/16 at 14:00 Fluconazole 100 mg 100 mg DAILY PO Last administered on 03/15/16 08:32; Admin Dose 100 MG; Start 03/12/16 at 14:30 Piperacillin Sod/ Tazobactam Sod 50 ml @ 100 mls/hr Q8 IVPB Last administered on 03/15/16 05:53; Admin Dose 100 MLS/HR; Start 03/12/16 at 15:00 Vancomycin HCl 1.5 gm/Sodium Chloride 250 ml @ 83.333 mls/ hr Q24H IVPB Last administered on 03/14/16 05:42; Admin Dose 83.333 MLS/HR; Start 03/14/16 at 04:00; Status Future Hold Fentanyl 1000 mcg/ Dextrose 100 ml @ 2.5 mls/hr TITRATE IV Last administered on 03/14/16 09:25; Admin Dose 2.5 MLS/HR; Start 03/13/16 at 18:00 Pantoprazole 80 mg/Sodium Chloride 100 ml @ 10 mls/hr Q10H IV Last administered on 03/15/16 04:21; Admin Dose 10 MLS/HR; Start 03/14/16 at 10:30 Sodium Chloride (NS) 1,000 ml @ 80 mls/hr [id number] IV Last administered on 07:39; Admin Dose 80 MLS/HR; Start 03/15/16 at 07:30 Sucralfate (Carafate Susp) 1 gm QID NGT Last administered on 03/15/16 08:32; Admin Dose 1 GM; Start 03/15/16 at 09:00 KEITH CRAIG NP Mar 15, 2016 08:59
[2016-03-15] MEDS ORDERED: FUROSEMIDE 20 MG INJ IV SCH (09:00)
[2016-03-15 09:59] LABS: EOSINOPHILS # 0.4 10^3/ul (0.0-0.5); LYMPHOCYTES # 1.2 10^3/ul (0.8-2.9); MONOCYTE # 1.4 10^3/ul (0.3-0.9); MYELOCYTES # 0.6; NEUTROPHIL # 14.4 10^3/ul (1.6-7.5)
--- NOTE | 2016-03-15 10:10 | CONS ---
Date/Time of Note Date/Time of Note DATE: 03/15/16 TIME: 10:08 Consult Date/Type/Reason Admit Date/Time Feb 18, 2016 at 09:14 Type of Consultation: pulmonary Ordering Provider: MOSES HARRIS MD Subjective Remains intubated on mechanical ventilation currently stable Continues FiO2 at 100% with a PEEP of 10 Elevated peak inspiratory pressures Objective Vital Signs Date Time Temp Pulse Resp B/P Pulse Ox O2 Delivery O2 Flow Rate FiO2 03/15/16 08:30 24 107/54 93 Mechanical Ventilator 03/15/16 08:00 100 03/15/16 08:00 98.7 56 Intake and Output 03/14/16 03/14/16 03/15/16 15:00 23:00 07:00 Intake Total 1726.134 ml 902.866 ml 1468 ml Output Total 30 ml 405 ml 30 ml Balance 1696.134 ml 497.866 ml 1438 ml PHYSICAL EXAMINATION GENERAL: Well-nourished well-developed gentleman intubated on mechanical ventilation sedation VITAL SIGNS: see below. HEENT: Pupils equal, round, and reactive to light. CARDIAC: S1, S2, CHEST: Diminished air entry bilaterally. Few rales bilaterally ABDOMEN: Mildly distended. Obese soft nontender no guarding or rebound EXTREMITIES: No cyanosis, clubbing edema +2 NEUROLOGIC: Unable to assess Results/Medications Result Diagram: 03/15/1641903/15/16 0420 Results 24 hrs Laboratory Tests Test 03/14/16 12:25 03/14/16 16:40 03/14/16 18:07 03/14/16 18:20 Bedside Glucose 122 122 Creatine Kinase 32 Creatine Kinase Index 2.0 Creatinine Kinase MB (Mass) 0.64 Troponin I 0.021 Hematocrit 21.8 L Hemoglobin 7.4 L Test 03/15/16 00:52 03/15/16 04:20 03/15/16 06:00 Bedside Glucose 126 160 Hematocrit 23.5 L 22.6 L Hemoglobin 7.7 L 7.4 L Anion Gap 24 H Band Neutrophils % 4.0 Blood Morphology Comment Blood Urea Nitrogen 58 H Calcium Level 9.0 Carbon Dioxide Level 21 Chloride Level 91 L Creatinine 4.33 #H Eosinophils # 0.4 Eosinophils % 2.0 Glucose Level 129 Lymphocytes # 1.2 Lymphocytes % 6.0 L Magnesium Level 2.6 H Mean Corpuscular Hemoglobin 26.3 L Mean Corpuscular Hemoglobin Concent 32.7 Mean Corpuscular Volume 80.3 L Mean Platelet Volume 9.6 Metamyelocytes # 0.4 Metamyelocytes % 2.0 H Monocytes # 1.4 H Monocytes % 7.0 Myelocytes # 0.6 Myelocytes % 3.0 H Neutrophils # 14.4 H Neutrophils % 74.0 Phosphorus Level 11.9 H Platelet Count 271 Potassium Level 4.4 Promyelocytes # 0.4 Promyelocytes % 2.0 H Red Blood Count 2.81 L Red Cell Distribution Width 17.6 H Sodium Level 132 L White Blood Count 19.5 H Medications Current Medications Ondansetron HCl (Zofran Inj) 4 mg Q6H PRN IV NAUSEA AND/OR VOMITING; Start 02/18/16 at 09:30 Acetaminophen (Tylenol Supp) 650 mg Q4H PRN [place] PAIN LEVEL 1-3 OR FEVER Last administered on 02/24/16at 14:32; Admin Dose 650 MG; Start 02/18/16 at 09:30 Morphine Sulfate (morphine) 2 mg Q4H PRN IV PAIN LEVEL 7-10 Last administered on 03/11/16at 16:13; Admin Dose 2 MG; Start 02/18/16 at 09:30 Bisacodyl (Dulcolax Supp) 10 mg DAILY PRN [place] CONSTIPATION; Start 02/18/16 at 09 :30 Metoprolol Tartrate (Lopressor) 5 mg Q4H PRN IV HR>55 Hold SBP<100 Last administered on 03/09/16at 12:08; Admin Dose 5 MG; Start 02/21/16 at 11:30 IV Flush (NS 10 ml) 10 ml PRN PRN IV IV PROTOCOL; Start 02/21/16 at 18:30 Ferrous Sulfate (Feosol Liquid Cup) 300 mg BID GTB Last administered on at 08:32; Admin Dose 300 MG; Start 02/22/16 at 10:00 Lorazepam (Ativan) 1 mg Q1H PRN IV ANXIETY Last administered on 03/13/16at 14: 10; Admin Dose 1 MG; Start 02/23/16 at 11:30 Miscellaneous Information 1 ea NOTE XX ; Start 02/23/16 at 23:15 Glucose (Glutose) 22.5 gm Q15M PRN PO DECREASED GLUCOSE; Start 02/23/16 at 23: 15 Dextrose (D50w Syringe) 50 ml Q15M PRN IV DECREASED GLUCOSE; Start 02/23/16 at 23:15 Glucagon (Glucagen) 1 mg Q15M PRN IM DECREASED GLUCOSE; Start 02/23/16 at 23:15 Glucose (Glutose) 15 gm Q15M PRN BUCCAL DECREASED GLUCOSE; Start 02/23/16 at 23 :15 Metoclopramide HCl (Reglan) 10 mg Q6 IV Last administered on 03/15/16at 05:55; Admin Dose 10 MG; Start 03/04/16 at 06:00 Acetaminophen (Tylenol Tab) 650 mg Q6H PRN NGT PAIN AND OR ELEVATED TEMP Last administered on 03/13/16at 14:33; Admin Dose 650 MG; Start 03/06/16 at 11:30 Glucose (Glutose) 15 gm Q15M PRN NGT DECREASED GLUCOSE; Start 03/06/16 at 08: 45 Hydralazine HCl (Apresoline) 100 mg Q8 NGT Last administered on 03/15/16at 06: 01; Admin Dose 100 MG; Start 03/06/16 at 14:00 Metoprolol Tartrate (Lopressor) 150 mg Q8 NGT Last administered on 03/15/16at 06:01; Admin Dose 150 MG; Start 03/06/16 at 14:00 Hydralazine HCl (Apresoline) 10 mg Q4H PRN IV ELEVATED SYSTOLIC BP Last administered on 03/09/16at 10:52; Admin Dose 10 MG; Start 03/06/16 at 16:00 Amlodipine Besylate (Norvasc) 10 mg DAILY PO Last administered on 03/14/16at 09 :52; Admin Dose 10 MG; Start 03/09/16 at 17:00 Minoxidil 10 mg 10 mg BID NGT Last administered on 03/14/16at 21:09; Admin Dose 10 MG; Start 03/09/16 at 21:00 Propofol (Diprivan) 100 ml @ 3.189 mls/ hr Q12H IV Last administered on at 08:32; Admin Dose 25.512 MLS/HR; Start 03/10/16 at 00:00 Insulin Aspart NOVOLOG *MODERATE* ALGORI... Q6 SC Last administered on 06:04; Admin Dose 2 UNIT; Start 03/10/16 at 06:00 Levetiracetam/ Dextrose (Keppra Iv/D5W) 115 ml @ 460 mls/hr Q12 IVPB Last administered on 03/15/16 08:10; Admin Dose 460 MLS/HR; Start 03/11/16 at 21: 00 Diltiazem HCl (Cardizem) 90 mg Q8 PO Last administered on 03/15/16 06:01; Admin Dose 90 MG; Start 03/12/16 at 14:00 Fluconazole 100 mg 100 mg DAILY PO Last administered on 03/15/16 08:32; Admin Dose 100 MG; Start 03/12/16 at 14:30 Piperacillin Sod/ Tazobactam Sod 50 ml @ 100 mls/hr Q8 IVPB Last administered on 03/15/16 05:53; Admin Dose 100 MLS/HR; Start 03/12/16 at 15:00 Vancomycin HCl 1.5 gm/Sodium Chloride 250 ml @ 83.333 mls/ hr Q24H IVPB Last administered on 03/14/16 05:42; Admin Dose 83.333 MLS/HR; Start 03/14/16 at 04:00; Status Future Hold Fentanyl 1000 mcg/ Dextrose 100 ml @ 2.5 mls/hr TITRATE IV Last administered on 03/14/16 09:25; Admin Dose 2.5 MLS/HR; Start 03/13/16 at 18:00 Pantoprazole 80 mg/Sodium Chloride 100 ml @ 10 mls/hr Q10H IV Last administered on 03/15/16 04:21; Admin Dose 10 MLS/HR; Start 03/14/16 at 10:30 Sodium Chloride (NS) 1,000 ml @ 80 mls/hr [id number] IV Last administered on 07:39; Admin Dose 80 MLS/HR; Start 03/15/16 at 07:30 Sucralfate 1 gm 1 gm QID NGT Last administered on 03/15/16 08:32; Admin Dose 1 GM; Start 03/15/16 at 09:00 Midazolam HCl/ Dextrose (Versed/D5W) 50 ml @ 0 mls/hr TITRATE IV ; Start at 11:30 Assessment/Plan Chief Complaint/Hosp Course IMPRESSION 1. Hypertensive Emergency 2. Type B Aortic Dissection. No evidence on proximal dissection on recent CT neck and chest, 3. Encephalopathy, possibly secondary to antihypertensive medications. 4. Aspiration pneumonia versus healthcare associated pneumonia requiring reintubation 5. Pulmonary embolus 6. Renal insufficiency 7. Anemia 8. Hypoxemic respiratory failure consistent with ARDS RECS: 1. Vent support decrease FiO2 as tolerated. Patient will need tracheostomy when more stable. Trial of pressure control ventilation instead of volume control 2. Continue BP control 3. Sedation vacation as tolerated. Switch from propofol to Versed and fentanyl 4. Replete lytes 5. Am CXR/ABG 6. Abx per ID 7. Anticoagulation per thoracic surgery prognosis guarded Problems: ANA[facility] BREWSTER MD[facility] Mar 15, 2016 10:10
[2016-03-15] MEDS: FENTAnyl 1,000 MCG in DEXTROSE 5% 80 ML IV SCH (10:17)
[2016-03-15] MEDS: MIDAZOLAM 50 MG in DEXTROSE 5% 40 ML IV SCH ×2 (12:01→19:52)
[2016-03-15] MEDS: MINOXIDIL 10 MG TAB NGT SCH ×2 (12:31→21:13)
[2016-03-15] MEDS: AMLODIPINE 10 MG TAB PO SCH (12:32)
[2016-03-15 13:28] LABS: HEMATOCRIT 25.1 % (42.0-52.0); HEMOGLOBIN 8.3 g/dl (14.0-18.0)
[2016-03-15 13:37] LABS: AADO2 Arterial 578.9 mmHg (7.0-24.0); Allen Test ACCEPTAB; Arterial Base Excess -7.2 mmol/L (-3.0-3); Arterial COHb 0.3 % (0.0-3.0); Arterial Fraction of Oxyhgb 92.8 % (93.0-99.0); Arterial HCO3 20.9 mmol/L (22.0-26.0); Arterial MetHb 0.3 % (0.0-1.5); Arterial Total Hemglobin 9.3 g/dl (12.0-18.0); MODE VENT - PC
--- NOTE | 2016-03-15 14:56 | CONS ---
Date/Time of Note Date/Time of Note DATE: 03/15/16 TIME: 14:50 Assessment/Plan Assessment/Plan Chief Complaint/Hosp Course Imp: 1.HTN emergency-NL EF by echo this admit-under reasonable control on PO medications only. Off all drips/heavily sedated with now low BP/HR 2.Aortic dissection-type B again demonstrated by Chest CT 02/29/16 3.abnl ecg-lateral TWI-negative troponin x 3 since admit 4.anxiety 5.ARF 6. Pericardial effusion by echo-small with NL EF 7.Encephalopathic 8.Pulmonary embolism 9.Tachycardia-S tach-only when on sedation vacation 10.CHF-diastolic acute 11.Resp [id number] 12.Seizures-on keppra 13. Acute on chronic renal failure 14.GIB/anemia Recc: -Tele in ICU -Follow volume status closely and is to be started on HD -Wean vent as tolerated -serial ecg's -Continue PO BB/CCB/minoxidil/hydralazine/diltiazem as tolerated with p[robable need to begin weaning anti-hypertensives if BP remains low -ongoing surgical follow-up -f/u MS closely -Continue keppra for seizures -Transfuse PRBC's as necssary and follow Hgb closely Problems: Consultation Date/Type/Reason Admit Date/Time Feb 18, 2016 at 09:14 Initial Consult Date 02/19/2016 Type of Consultation: Cardiology Reason for Consultation HTN/aortic dissection Referring Provider: MOSES HARRIS MD Exam/Review of Systems Vital Signs Vitals Vital Signs Date Time Temp Pulse Resp B/P Pulse Ox O2 Delivery O2 Flow Rate FiO2 03/15/16 13:15 55 24 94 100 03/15/16 12:30 83/44 Mechanical Ventilator 03/15/16 12:00 97.6 Intake and Output 03/14/16 03/14/16 03/15/16 15:00 23:00 07:00 Intake Total 1726.134 ml 902.866 ml 1468 ml Output Total 30 ml 405 ml 30 ml Balance 1696.134 ml 497.866 ml 1438 ml Exam Review of Systems: CONSTITUTIONAL: No fevers, chills. PULMONARY: intubated CARDIOVASCULAR: No obvious chest pain/palpitations GASTROINTESTINAL: No nausea/vomiting. GENITOURINARY: No hematuria/dysuria. MUSCULOSKELETAL: No obvious myagias/arthalgias. PSYCHIATRIC: The patient denies depression. NEUROLOGIC: No weakness Constitutional: other (sedated) Psych: no complaints ENMT: mucosa pink and moist Neck: jvd (9 cm water), supple Respiratory: diminished breath sounds (at bases/B) Cardiovascular: regular rate and rhythm Gastrointestinal: non-tender, soft Musculoskeletal: muscle tone (normal) Extremities: edema Neurological: other (No focal deficits/sedated) Results Result Diagram: 03/15/16 1242 03/15/16 0420 Results 24 hrs Laboratory Tests Test 03/14/16 16:40 03/14/16 18:07 03/14/16 18:20 03/15/16 00:52 Creatine Kinase 32 Creatine Kinase Index 2.0 Creatinine Kinase MB (Mass) 0.64 Troponin I 0.021 Bedside Glucose 122 126 Hematocrit 21.8 L 23.5 L Hemoglobin 7.4 L 7.7 L Test 03/15/16 04:20 03/15/16 06:00 03/15/16 12:16 03/15/16 12:42 Anion Gap 24 H Band Neutrophils % 4.0 Blood Morphology Comment Blood Urea Nitrogen 58 H Calcium Level 9.0 Carbon Dioxide Level 21 Chloride Level 91 L Creatinine 4.33 #H Eosinophils # 0.4 Eosinophils % 2.0 Glucose Level 129 Hematocrit 22.6 L 25.1 L Hemoglobin 7.4 L 8.3 L Lymphocytes # 1.2 Lymphocytes % 6.0 L Magnesium Level 2.6 H Mean Corpuscular Hemoglobin 26.3 L Mean Corpuscular Hemoglobin Concent 32.7 Mean Corpuscular Volume 80.3 L Mean Platelet Volume 9.6 Metamyelocytes # 0.4 Metamyelocytes % 2.0 H Monocytes # 1.4 H Monocytes % 7.0 Myelocytes # 0.6 Myelocytes % 3.0 H Neutrophils # 14.4 H Neutrophils % 74.0 Phosphorus Level 11.9 H Platelet Count 271 Potassium Level 4.4 Promyelocytes # 0.4 Promyelocytes % 2.0 H Red Blood Count 2.81 L Red Cell Distribution Width 17.6 H Sodium Level 132 L White Blood Count 19.5 H Bedside Glucose 160 148 Test 03/15/16 13:00 Arterial Blood HCO3 20.9 L Arterial Blood Base Excess -7.2 L Arterial Blood Oxygen Saturation 93.4 L Jovanny Test ACCEPTAB Arterial Blood Gas Puncture Site Right HEEL Arterial Blood Carboxyhemoglobin 0.3 Arterial Blood Date Drawn 03/15/2016 1:20:27 PM Arterial Blood Methemoglobin 0.3 Arterial Blood pCO2 (Temp correct) 56.1 H Arterial Blood pH (Temp corrected) 7.189 *L Arterial Blood pO2 (Temp corrected) 78.0 L Blood Gas A-a O2 Differential 578.9 H Blood Gas Actual Respiration Rate 25 Blood Gas Critical Value Read Back A NHI RN Blood Gas Inspiratory Pressure 45.0 Blood Gas Low PEEP Setting 10.0 Blood Gas Modality VENT - PC Blood Gas Notified Time 03/15/2016 1:35:08 PM Blood Gas Notified Whom JLD Blood Gas Respiration Rate 24.0 Blood Gas Specimen Source Blood arterial Blood Gas Temperature 37.0 FiO2 100.0 Oxyhemoglobin Percent 92.8 L Total Hemoglobin 9.3 L Medications Medications Current Medications Ondansetron HCl (Zofran Inj) 4 mg Q6H PRN IV NAUSEA AND/OR VOMITING; Start 02/18/16 at 09:30 Acetaminophen (Tylenol Supp) 650 mg Q4H PRN [place] PAIN LEVEL 1-3 OR FEVER Last administered on 02/24/16at 14:32; Admin Dose 650 MG; Start 02/18/16 at 09:30 Morphine Sulfate (morphine) 2 mg Q4H PRN IV PAIN LEVEL 7-10 Last administered on 03/11/16at 16:13; Admin Dose 2 MG; Start 02/18/16 at 09:30 Bisacodyl (Dulcolax Supp) 10 mg DAILY PRN [place] CONSTIPATION; Start 02/18/16 at 09 :30 Metoprolol Tartrate (Lopressor) 5 mg Q4H PRN IV HR>55 Hold SBP<100 Last administered on 03/09/16at 12:08; Admin Dose 5 MG; Start 02/21/16 at 11:30 IV Flush (NS 10 ml) 10 ml PRN PRN IV IV PROTOCOL; Start 02/21/16 at 18:30 Ferrous Sulfate (Feosol Liquid Cup) 300 mg BID GTB Last administered on at 08:32; Admin Dose 300 MG; Start 02/22/16 at 10:00 Lorazepam (Ativan) 1 mg Q1H PRN IV ANXIETY Last administered on 03/13/16at 14: 10; Admin Dose 1 MG; Start 02/23/16 at 11:30 Miscellaneous Information 1 ea NOTE XX ; Start 02/23/16 at 23:15 Glucose (Glutose) 22.5 gm Q15M PRN PO DECREASED GLUCOSE; Start 02/23/16 at 23: 15 Dextrose (D50w Syringe) 50 ml Q15M PRN IV DECREASED GLUCOSE; Start 02/23/16 at 23:15 Glucagon (Glucagen) 1 mg Q15M PRN IM DECREASED GLUCOSE; Start 02/23/16 at 23:15 Glucose (Glutose) 15 gm Q15M PRN BUCCAL DECREASED GLUCOSE; Start 02/23/16 at 23 :15 Metoclopramide HCl (Reglan) 10 mg Q6 IV Last administered on 03/15/16at 12:15; Admin Dose 10 MG; Start 03/04/16 at 06:00 Acetaminophen (Tylenol Tab) 650 mg Q6H PRN NGT PAIN AND OR ELEVATED TEMP Last administered on 03/13/16at 14:33; Admin Dose 650 MG; Start 03/06/16 at 11:30 Glucose (Glutose) 15 gm Q15M PRN NGT DECREASED GLUCOSE; Start 03/06/16 at 08: 45 Hydralazine HCl (Apresoline) 100 mg Q8 NGT Last administered on 03/15/16at 06: 01; Admin Dose 100 MG; Start 03/06/16 at 14:00 Metoprolol Tartrate (Lopressor) 150 mg Q8 NGT Last administered on 03/15/16at 06:01; Admin Dose 150 MG; Start 03/06/16 at 14:00 Hydralazine HCl (Apresoline) 10 mg Q4H PRN IV ELEVATED SYSTOLIC BP Last administered on 03/09/16at 10:52; Admin Dose 10 MG; Start 03/06/16 at 16:00 Amlodipine Besylate (Norvasc) 10 mg DAILY PO Last administered on 03/14/16at 09 :52; Admin Dose 10 MG; Start 03/09/16 at 17:00 Minoxidil 10 mg 10 mg BID NGT Last administered on 03/14/16at 21:09; Admin Dose 10 MG; Start 03/09/16 at 21:00 Propofol (Diprivan) 100 ml @ 3.189 mls/ hr Q12H IV Last administered on 13:49; Admin Dose 12.756 MLS/HR; Start 03/10/16 at 00:00 Insulin Aspart NOVOLOG *MODERATE* ALGORI... Q6 SC Last administered on 12:25; Admin Dose 1 UNIT; Start 03/10/16 at 06:00 Levetiracetam/ Dextrose (Keppra Iv/D5W) 115 ml @ 460 mls/hr Q12 IVPB Last administered on 03/15/16 08:10; Admin Dose 460 MLS/HR; Start 03/11/16 at 21: 00 Diltiazem HCl (Cardizem) 90 mg Q8 PO Last administered on 03/15/16 06:01; Admin Dose 90 MG; Start 03/12/16 at 14:00 Fluconazole 100 mg 100 mg DAILY PO Last administered on 03/15/16 08:32; Admin Dose 100 MG; Start 03/12/16 at 14:30 Piperacillin Sod/ Tazobactam Sod 50 ml @ 100 mls/hr Q8 IVPB Last administered on 03/15/16 13:49; Admin Dose 100 MLS/HR; Start 03/12/16 at 15:00 Vancomycin HCl 1.5 gm/Sodium Chloride 250 ml @ 83.333 mls/ hr Q24H IVPB Last administered on 03/14/16 05:42; Admin Dose 83.333 MLS/HR; Start 03/14/16 at 04:00; Status Future Hold Fentanyl 1000 mcg/ Dextrose 100 ml @ 2.5 mls/hr TITRATE IV Last administered on 03/15/16 10:17; Admin Dose 5 MLS/HR; Start 03/13/16 at 18:00 Pantoprazole 80 mg/Sodium Chloride 100 ml @ 10 mls/hr Q10H IV Last administered on 03/15/16 04:21; Admin Dose 10 MLS/HR; Start 03/14/16 at 10:30 Sodium Chloride (NS) 1,000 ml @ 80 mls/hr [id number] IV Last administered on 07:39; Admin Dose 80 MLS/HR; Start 03/15/16 at 07:30 Sucralfate 1 gm 1 gm QID NGT Last administered on 12/30/16at 13:49; Admin Dose 1 GM; Start 03/15/16 at 09:00 Midazolam HCl/ Dextrose (Versed/D5W) 50 ml @ 0 mls/hr TITRATE IV Last administered on 03/15/16at 12:01; Admin Dose 2 MLS/HR; Start 03/15/16 at 11:30 Miscellaneous Information (*Rx Drug Level Order Reminder*) RANDOM VANCO LEVEL... ONCE ONCE XX ; Start 03/16/16 at 05:00; Stop 03/16/16 at 05:01 JUNAID PAZ Mar 15, 2016 14:56
--- NOTE | 2016-03-15 15:25 | PN ---
DATE: 03/15/2016 SUBJECTIVE: This is an infectious disease progress note. No acute events overnight. The patient i s lying comfortably in bed, intubated, sedated. He was started on tube feeding, tolerating it well. VITAL SIGNS: Temperature 97.6, pulse 56, respirations 20, blood pressure 83/44, saturation 92 to 10 0 FIO2. WBC 19.6, H and H 7.4 and 22.6, platelets 271, neutrophils 74, bands 4, lymphs 6, monos 7. BUN 58, creatinine 4.33. MICROBIOLOGY: Cultures remain negative. ANTIMICROBIALS: 1. Vancomycin. 2. Zosyn. 3. Fluconazole. INDWELLINGS: Endotracheal tube, orogastric tube, PICC line placed on 02/21/2016. PHYSICAL EXAMINATION: GENERAL: This is an obese, middle-aged man who is lying comfortably in bed. HEENT: Head atraumatic, normocephalic. Sclerae anicteric. Buccal mucosa dry. NECK: Supple. CHEST: Rise symmetrical. Breath sounds diminished to bases. HEART: S1, S2. ABDOMEN: Distended. Bowel tones hyperactive. EXTREMITIES: Bilateral edema. ASSESSMENT: 1. Sepsis with multisystem organ failure. 2. Healthcare-associated pneumonia, possibly aspiration event, now in acute respiratory distress sy ndrome with a PEEP of 10 and FIO2 of 100 on assist control. 3. Gastrointestinal bleeding, gastroenterology on case. 4. Acute on chronic kidney disease, pending Michael catheter placement and plan for hemodialysis. 5. Accelerated hypertension. 6. Pulmonary emboli. 7. Type B aortic dissection. 8. Oral thrush. PLAN: Patient is currently in the process of getting hemodialysis catheter placement. He is covere d with broad spectrum antibiotics. He has a new onset of seizure last week and therefore we cannot put him on meropenem. His cultures had been negative since admission. We will continue him on curr ent regimen and follow recommendation of specialists. Dictated By: HUSAM SANFORD PIG MACHINE OPERATOR HELPER for YESIKA LOPEZ/NTS Conf#: [id number] DID#: [id number]
[2016-03-15] MEDS ORDERED: MANNITOL 25% 50 ML INJ IV* ONE (15:30)
--- NOTE | 2016-03-15 16:33 | OPR ---
DATE OF OPERATION: PREOPERATIVE DIAGNOSIS: Renal failure. POSTOPERATIVE DIAGNOSIS: Renal failure. OPERATION PERFORMED: Right femoral hemodialysis catheter placement under ultrasound guidance into t he central vein. SURGEON: Kaylyn Means MD. ANESTHESIA: Local. CONSENT: Risks, benefits, complications, alternative therapies explained to the patient and the fam roberta, consent obtained. OPERATIVE TECHNIQUE: The patient was placed in supine position, prepped and draped in usual sterile fashion, 1% lidocaine was used throughout the operation for local anesthesia. Access was gained in to the right femoral vein. Guidewire was advanced through without any difficulties. Subcutaneous ti ssues was dilated. A 20 cm dialysis catheter advanced over guidewire, secured to skin using silk mari tures. All ports of the catheter were aspirated and injected using heparinized saline solution. David mendoza tolerated procedure well. Dictated By: KAYLYN ALVA/EFRAIN Conf#: [id number] DID#: [id number]
[2016-03-15 17:59] LABS: HEMATOCRIT 23.3 % (42.0-52.0); HEMOGLOBIN 7.9 g/dl (14.0-18.0)
[2016-03-15 17:59] LABS: AADO2 Arterial 579.3 mmHg (7.0-24.0); Allen Test ACCEPTAB; Arterial Base Excess -3.9 mmol/L (-3.0-3); Arterial COHb 0.3 % (0.0-3.0); Arterial Fraction of Oxyhgb 95.3 % (93.0-99.0); Arterial HCO3 22.6 mmol/L (22.0-26.0); Arterial MetHb 0.2 % (0.0-1.5); Arterial Total Hemglobin 8.7 g/dl (12.0-18.0); MODE VENT - PC
[2016-03-16] VITALS (50 sets, daily range): BP systolic 104–187; BP diastolic 56–91; PULSE 64–93; RESP 12–31
[2016-03-16] MEDS: ALBUTEROL HFA 8 GM INHALER INH SCH ×4 (01:25→20:40)
[2016-03-16] MEDS: PANTOPRAZOLE IV 80 MG in SOD CHLORIDE 0.9% 100 ML IV SCH ×3 (02:13→22:14)
[2016-03-16] MEDS: FENTAnyl 1,000 MCG in DEXTROSE 5% 80 ML IV SCH ×2 (02:15→21:04)
[2016-03-16 05:00] LABS: HEMOGLOBIN 8.3 g/dl (14.0-18.0); MEAN CORPUSCULAR HEMOGLOBIN 26.7 pg (29.0-33.0); MEAN CORPUSCULAR HGB CONC 33.3 g/dl (32.0-37.0); MEAN CORPUSCULAR VOLUME 80.2 fl (82.0-101.0); MEAN PLATELET VOLUME 8.6 fl (7.4-10.4); PLATELET COUNT 255 10^3/UL (140-440); RED BLOOD COUNT 3.12 10^6/ul (4.70-6.10); RED CELL DISTRIBUTION WIDTH 17.3 % (11.5-14.5); UNCORRECTED WBC 19.4 10^3/ul (4.8-10.8); WHITE BLOOD COUNT 19.4 10^3/ul (4.8-10.8)
[2016-03-16 05:12] LABS: CONDITION 1; LH ANALYZER COMMENTS 1
[2016-03-16 05:35] LABS: MAGNESIUM 2.5 mg/dl (1.7-2.5)
[2016-03-16 05:45] LABS: POTASSIUM 4.5 mmol/L (3.5-5.1)
[2016-03-16] MEDS: METOCLOPRAMIDE 10 MG INJ IV SCH ×3 (05:48→17:15)
[2016-03-16] MEDS: PIPER-TAZO 2.25 GM (PMX) 50 ML IVPB SCH ×3 (05:48→22:51)
[2016-03-16 05:49] LABS: CALCIUM 8.4 mg/dl (8.4-10.2)
[2016-03-16] MEDS: FUROSEMIDE 20 MG INJ IV SCH ×2 (05:49→17:15)
[2016-03-16] MEDS: METOPROLOL 100 MG TAB NGT SCH ×3 (05:50→22:52)
[2016-03-16] MEDS: DILTIAZEM 30 MG TAB PO SCH ×3 (05:51→22:53)
[2016-03-16] MEDS: INSULIN ASPART [NOVOLOG] 3 ML PEN SC SCH ×3 (06:00→17:15)
[2016-03-16 06:34] LABS: CREATININE 4.26 mg/dl (0.61-1.24)
[2016-03-16 07:11] LABS: EOSINOPHILS # 0.4 10^3/ul (0.0-0.5); HYPOCHROMASIA 2+; LYMPHOCYTES # 0.6 10^3/ul (0.8-2.9); MICROCYTOSIS 1+; MONOCYTE # 1.7 10^3/ul (0.3-0.9); NEUTROPHIL # 15.5 10^3/ul (1.6-7.5)
[2016-03-16 07:12] LABS: ANISOCYTOSIS 1+; PLATELET ESTIMATE PLT APPEAR ADEQUATE
[2016-03-16 07:15] LABS: SCHISTOCYTES OCCASIONAL; TARGET CELLS OCCASIONAL
[2016-03-16] MEDS: MIDAZOLAM 50 MG in DEXTROSE 5% 40 ML IV SCH ×2 (08:13→16:43)
[2016-03-16 08:47] LABS: AADO2 Arterial 584.6 mmHg (7.0-24.0); Allen Test ACCEPTAB; Arterial Base Excess -5.8 mmol/L (-3.0-3); Arterial HCO3 21.8 mmol/L (22.0-26.0); MODE VENT - PC
[2016-03-16] MEDS: CALCIUM CARBONATE 500 MG CHEW TAB PO SCH ×3 (08:51→17:15)
[2016-03-16] MEDS: FERROUS SULFATE 60 MG/ML 5ML CUP GTB SCH ×2 (08:51→20:28)
[2016-03-16] MEDS: LEVETIRACETAM IV 1,500 MG in DEXTROSE 5% 100 ML IVPB SCH ×2 (08:51→20:28)
[2016-03-16] MEDS: SUCRALFATE (100 MG/ML) 10ML CUP NGT SCH ×4 (08:51→20:28)
[2016-03-16] MEDS: FLUCONAZOLE 100 MG TAB PO SCH (08:51)
[2016-03-16] MEDS: MINOXIDIL 10 MG TAB NGT SCH ×2 (08:52→20:28)
[2016-03-16] MEDS: AMLODIPINE 10 MG TAB PO SCH (08:52)
--- NOTE | 2016-03-16 09:04 | PN ---
Date/Time of Note Date/Time of Note DATE: 03/16/16 TIME: 09:01 Assessment/Plan VTE Prophylaxis VTE Prophylaxis Intervention: SCD's Lines/Catheters IV [facility]ter [facility]from [facility] [place] [employer] Central line still needed: Yes Urinary Cath still in place: Yes Reason Cath still needed: terminal illness/intractable pain Assessment/Plan Chief Complaint/Hosp Course 1. Type B aortic dissection. Continue blood pressure control. Continue ICU monitoring. Status post evaluation by vascular surgery. No surgical intervention as of now. 2. Accelerated hypertension. Currently controlled. On antihypertensives. 3. Acute hypoxic respiratory failure. Etiology unclear. Most probably secondary to aspiration. Continue ventilator support as per pulmonary. The patient was extubated and then re-intubated. 4. Aspiration pneumonia. Continue antibiotics as per infectious diseases. 5. Acute kidney injury, most probably secondary to hemodynamics. Nephrology following. Use nephrotoxic drugs with caution. The patient was newly started on hemodialysis on 03/15/2016. 6. Left cephalic vein thrombosis. Was on therapeutic anticoagulation. This was put on hold because of worsening H&H. 7. Pulmonary embolism (02/29/2016). Was on therapeutic anticoagulation with heparin gtt. This was put on hold because of worsening H&H. 8. Microcytic hypochromic anemia. Iron panel showing iron deficiency. Continue iron supplements. Will transfuse as needed. 9. Acute encephalopathy, most probably metabolic in origin. Electroencephalography showing background slowing suggesting bihemispheric subcortical dysfunction, possibly epileptiform activity. The patient is on anticonvulsants. Was evaluated by Neurology. 10. Hyperdynamic left ventricular systolic function. Cardiology following. 11. GI bleeding. Heparin drip on hold. On Protonix drip. The patient being followed by gastroenterology. 12. Fluids, electrolytes, and nutrition. IV fluids as per nephrology. Hold NG tube feedings. 13. Deep venous thrombosis prophylaxis. Bilateral SCDs. 14. Gastrointestinal prophylaxis. Proton pump inhibitors. PLAN: Continue intensive care unit monitoring. Ventilator weaning as per pulmonary. Continue prokinetics because of high tube feeding residuals. Case discussed with Dr. Mosher. On 03/14/2016, had a conference with the patient's fianc Garrison Michelle in the room, the patient's mother (Julieta Zepeda) from [place] on the phone and the patient's sister on the phone. The plan of care was explained to the patient's family. Patient's poor prognosis was explained. The patient's family wanted to do everything possible to keep the patient alive. The conference was done in the presence of social economist. Critical care time 35 minutes. Problems: Subjective 24 Hr Interval Summary Free Text/Dictation The patient was newly started on hemodialysis on 03/15/2016. The patient's tube feedings were resumed. High tube feeding residuals. Remains on 100% FiO2. Exam/Review of Systems Vital Signs Vitals Vital Signs Date Time Temp Pulse Resp B/P Pulse Ox O2 Delivery O2 Flow Rate FiO2 03/16/16 06:00 71 23 122/67 100 Mechanical Ventilator 03/16/16 05:13 100 03/16/16 04:00 98.0 Intake and Output 03/15/16 03/15/16 03/16/16 15:00 23:00 07:00 Intake Total 1560.000 ml 1821.512 ml 1153 ml Output Total 2500 ml Balance 1560.000 ml -678.488 ml 1153 ml Exam GENERAL: Obese male lying bed. Orally intubated. HEENT: Head normocephalic and atraumatic. Eyes: Anicteric sclerae. Conjunctivae clear. ENT: Nasal septum is midline. Oral mucosa is dry. NECK: Short and obese. Unable to visualize any neck veins. CARDIAC: Regular rate and rhythm. S1 and S2 heard. ABDOMEN: Protruded. Soft. Bowel sounds hypoactive in all 4 quadrants. GENITOURINARY: The patient has a Smalls catheter in place. EXTREMITIES: No cyanosis, no clubbing. Edema of bilateral lower extremities and bilateral upper extremities. Right upper extremity PICC line in place. Peripheral pulses palpable. NEUROLOGIC: The patient is sedated. Results Result Diagram: 03/16/16 0425 03/16/16 0425 Results 24 hrs Laboratory Tests Test 03/15/16 12:16 03/15/16 12:42 03/15/16 13:00 03/15/16 17:44 Bedside Glucose 148 Hematocrit 25.1 L 23.3 L Hemoglobin 8.3 L 7.9 L Arterial Blood HCO3 20.9 L Arterial Blood Base Excess -7.2 L Arterial Blood Oxygen Saturation 93.4 L Jovanny Test ACCEPTAB Arterial Blood Gas Puncture Site Right HEEL Arterial Blood Carboxyhemoglobin 0.3 Arterial Blood Date Drawn 03/15/2016 1:20:27 PM Arterial Blood Methemoglobin 0.3 Arterial Blood pCO2 (Temp correct) 56.1 H Arterial Blood pH (Temp corrected) 7.189 *L Arterial Blood pO2 (Temp corrected) 78.0 L Blood Gas A-a O2 Differential 578.9 H Blood Gas Actual Respiration Rate 25 Blood Gas Critical Value Read Back A [facility] RO[place] Blood Gas Inspiratory Pressure 45.0 Blood Gas Low PEEP Setting 10.0 Blood Gas Modality VENT - PC Blood Gas Notified Time 03/15/2016 1:35:08 PM Blood Gas Notified Whom JLD Blood Gas Respiration Rate 24.0 Blood Gas Specimen Source Blood arterial Blood Gas Temperature 37.0 FiO2 100.0 Oxyhemoglobin Percent 92.8 L Total Hemoglobin 9.3 L Test 03/15/16 17:45 03/15/16 18:27 03/15/16 23:53 03/16/16 04:25 Arterial Blood HCO3 22.6 Arterial Blood Base Excess -3.9 L Arterial Blood Oxygen Saturation 95.8 Jovanny Test ACCEPTAB Arterial Blood Gas Puncture Site Right Radial Arterial Blood Carboxyhemoglobin 0.3 Arterial Blood Date Drawn 03/15/2016 5:50:45 PM Arterial Blood Methemoglobin 0.2 Arterial Blood pCO2 (Temp correct) 48.1 H Arterial Blood pH (Temp corrected) 7.289 *L Arterial Blood pO2 (Temp corrected) 85.6 Blood Gas A-a O2 Differential 579.3 H Blood Gas Actual Respiration Rate 26 Blood Gas Critical Value Read Back L [facility] [place] Blood Gas High PEEP Setting 10.0 Blood Gas Modality VENT - PC Blood Gas Notified Time 03/15/2016 5:58:41 PM Blood Gas Notified Whom Blood Gas Respiration Rate 26.0 Blood Gas Specimen Source Blood arterial Blood Gas Temperature 37.0 FiO2 100.0 Oxyhemoglobin Percent 95.3 Total Hemoglobin 8.7 L Bedside Glucose 160 127 Anion Gap 25 H Anisocytosis 1+ Band Neutrophils % 2.0 Blood Morphology Comment Blood Urea Nitrogen 56 H Calcium Level 8.4 Carbon Dioxide Level 19 L Chloride Level 92 L Creatinine 4.26 H Eosinophils # 0.4 Eosinophils % 2.0 Glucose Level 131 Hematocrit 25.0 L Hemoglobin 8.3 L Hypochromasia 2+ Lymphocytes # 0.6 L Lymphocytes % 3.0 L Magnesium Level 2.5 Mean Corpuscular Hemoglobin 26.7 L Mean Corpuscular Hemoglobin Concent 33.3 Mean Corpuscular Volume 80.2 L Mean Platelet Volume 8.6 Metamyelocytes # 0.8 Metamyelocytes % 4.0 H Microcytosis 1+ Monocytes # 1.7 H Monocytes % 9.0 Neutrophils # 15.5 H Neutrophils % 80.0 H Phosphorus Level 11.0 H Platelet Count 255 Platelet Estimate PLT APPEAR ADEQUATE Potassium Level 4.5 Random Vancomycin Level 25.7 Red Blood Count 3.12 L Red Cell Distribution Width 17.3 H Schistocytes OCCASIONAL Sodium Level 131 L Target Cells OCCASIONAL White Blood Count 19.4 H Test 03/16/16 06:13 03/16/16 07:00 Bedside Glucose 140 Arterial Blood HCO3 21.8 L Arterial Blood Base Excess -5.8 L Jovanny Test ACCEPTAB Arterial Blood Gas Puncture Site Right Radial Arterial Blood Date Drawn 03/16/2016 8:25:45 AM Arterial Blood pCO2 (Temp correct) 50.7 H Arterial Blood pH (Temp corrected) 7.252 *L Arterial Blood pO2 (Temp corrected) 77.7 L Blood Gas A-a O2 Differential 584.6 H Blood Gas Actual Respiration Rate 27 Blood Gas Critical Value Read Back E CABUNGAL RN Blood Gas Inspiratory Pressure 50.0 Blood Gas Low PEEP Setting 10.0 Blood Gas Modality VENT - PC Blood Gas Notified Time 03/16/2016 8:44:39 AM Blood Gas Notified Whom DT Blood Gas Respiration Rate 26.0 Blood Gas Specimen Source Blood arterial Blood Gas Temperature 37.0 FiO2 100.0 Medications Medications Current Medications Ondansetron HCl (Zofran Inj) 4 mg Q6H PRN IV NAUSEA AND/OR VOMITING; Start 02/18/16 at 09:30 Acetaminophen (Tylenol Supp) 650 mg Q4H PRN [place] PAIN LEVEL 1-3 OR FEVER Last administered on 02/24/16at 14:32; Admin Dose 650 MG; Start 02/18/16 at 09:30 Morphine Sulfate (morphine) 2 mg Q4H PRN IV PAIN LEVEL 7-10 Last administered on 03/11/16at 16:13; Admin Dose 2 MG; Start 02/18/16 at 09:30 Bisacodyl (Dulcolax Supp) 10 mg DAILY PRN [place] CONSTIPATION; Start 02/18/16 at 09 :30 Metoprolol Tartrate (Lopressor) 5 mg Q4H PRN IV HR>55 Hold SBP<100 Last administered on 03/09/16at 12:08; Admin Dose 5 MG; Start 02/21/16 at 11:30 IV Flush (NS 10 ml) 10 ml PRN PRN IV IV PROTOCOL; Start 02/21/16 at 18:30 Ferrous Sulfate (Feosol Liquid Cup) 300 mg BID GTB Last administered on at 08:51; Admin Dose 300 MG; Start 02/22/16 at 10:00 Lorazepam (Ativan) 1 mg Q1H PRN IV ANXIETY Last administered on 03/13/16at 14: 10; Admin Dose 1 MG; Start 02/23/16 at 11:30 Miscellaneous Information 1 ea NOTE XX ; Start 02/23/16 at 23:15 Glucose (Glutose) 22.5 gm Q15M PRN PO DECREASED GLUCOSE; Start 02/23/16 at 23: 15 Dextrose (D50w Syringe) 50 ml Q15M PRN IV DECREASED GLUCOSE; Start 02/23/16 at 23:15 Glucagon (Glucagen) 1 mg Q15M PRN IM DECREASED GLUCOSE; Start 02/23/16 at 23:15 Glucose (Glutose) 15 gm Q15M PRN BUCCAL DECREASED GLUCOSE; Start 02/23/16 at 23 :15 Metoclopramide HCl (Reglan) 10 mg Q6 IV Last administered on 03/16/16at 05:48; Admin Dose 10 MG; Start 03/04/16 at 06:00 Acetaminophen (Tylenol Tab) 650 mg Q6H PRN NGT PAIN AND OR ELEVATED TEMP Last administered on 03/13/16at 14:33; Admin Dose 650 MG; Start 03/06/16 at 11:30 Glucose (Glutose) 15 gm Q15M PRN NGT DECREASED GLUCOSE; Start 03/06/16 at 08: 45 Hydralazine HCl (Apresoline) 100 mg Q8 NGT Last administered on 03/16/16at 05: 49; Admin Dose 100 MG; Start 03/06/16 at 14:00 Metoprolol Tartrate (Lopressor) 150 mg Q8 NGT Last administered on 03/16/16at 05:50; Admin Dose 150 MG; Start 03/06/16 at 14:00 Hydralazine HCl (Apresoline) 10 mg Q4H PRN IV ELEVATED SYSTOLIC BP Last administered on 03/09/16at 10:52; Admin Dose 10 MG; Start 03/06/16 at 16:00 Amlodipine Besylate (Norvasc) 10 mg DAILY PO Last administered on 03/14/16 09 :52; Admin Dose 10 MG; Start 03/09/16 at 17:00 Minoxidil (Loniten) 10 mg BID NGT Last administered on 03/16/16 08:52; Admin Dose 10 MG; Start 03/09/16 at 21:00 Insulin Aspart NOVOLOG *MODERATE* ALGORI... Q6 SC Last administered on 18:30; Admin Dose 2 UNIT; Start 03/10/16 at 06:00 Levetiracetam/ Dextrose (Keppra Iv/D5W) 115 ml @ 460 mls/hr Q12 IVPB Last administered on 03/16/16 08:51; Admin Dose 460 MLS/HR; Start 03/11/16 at 21: 00 Diltiazem HCl (Cardizem) 90 mg Q8 PO Last administered on 03/15/16 22:22; Admin Dose 90 MG; Start 03/12/16 at 14:00 Fluconazole 100 mg 100 mg DAILY PO Last administered on 03/16/16 08:51; Admin Dose 100 MG; Start 03/12/16 at 14:30 Piperacillin Sod/ Tazobactam Sod 50 ml @ 100 mls/hr Q8 IVPB Last administered on 03/16/16 05:48; Admin Dose 100 MLS/HR; Start 03/12/16 at 15:00 Vancomycin HCl 1.5 gm/Sodium Chloride 250 ml @ 83.333 mls/ hr Q24H IVPB Last administered on 03/14/16 05:42; Admin Dose 83.333 MLS/HR; Start 03/14/16 at 04:00; Status Future Hold Fentanyl 1000 mcg/ Dextrose 100 ml @ 2.5 mls/hr TITRATE IV Last administered on 03/16/16 02:15; Admin Dose 5 MLS/HR; Start 03/13/16 at 18:00 Pantoprazole 80 mg/Sodium Chloride 100 ml @ 10 mls/hr Q10H IV Last administered on 03/16/16 02:13; Admin Dose 10 MLS/HR; Start 03/14/16 at 10:30 Sodium Chloride (NS) 1,000 ml @ 80 mls/hr [id number] IV Last administered on at 21:14; Admin Dose 80 MLS/HR; Start 03/15/16 at 07:30 Sucralfate 1 gm 1 gm QID NGT Last administered on 03/16/16at 08:51; Admin Dose 1 GM; Start 03/15/16 at 09:00 Midazolam HCl/ Dextrose (Versed/D5W) 50 ml @ 0 mls/hr TITRATE IV Last administered on 03/16/16at 08:13; Admin Dose 4 MLS/HR; Start 03/15/16 at 11:30 KEITH CRAIG NP Mar 16, 2016 09:04
[2016-03-16] MEDS: IPRATROPIUM (HFA) 12.9 GM INHALER INH SCH ×3 (09:15→20:40)
--- NOTE | 2016-03-16 09:20 | RADRPT ---
PROCEDURE: XR Chest. CLINICAL INDICATION: Respiratory failure TECHNIQUE: An AP view of the chest was obtained. COMPARISON: Chest x-ray dated 03/14/2016 FINDINGS: The endotracheal tube tip is approximately 3.0 cm above the [place]. The tip of the enteric tube ex tends below the left diaphragm. There is a right upper extremity PICC line with tip in the mid SVC There are diffuse bilateral interstitial opacities. There are small bilateral pleural effusions. No focal airspace opacification or pneumothorax is seen. The cardiomediastinal silhouette is mildly enlarged . The osseous structures are unremarkable. IMPRESSION: 1. Diffuse bilateral interstitial opacities, may reflect interstitial edema or pneumonia. Lung aer ation is mildly improved when compared to the prior examination. 2. Mild cardiomegaly. 3. Tubes and lines, as described above. RPTAT: HH .Mariama Rice MD, MD Date Time Electronically viewed and signed by .Mariama Rice MD, on 03/16/2016 09:20 .G/
--- NOTE | 2016-03-16 09:27 | CONS ---
Date/Time of Note Date/Time of Note DATE: 03/16/16 TIME: 09:25 Consult Date/Type/Reason Admit Date/Time Feb 18, 2016 at 09:14 Type of Consultation: pulmonary Ordering Provider: MOSES HARRIS MD Subjective Status post hemodialysis today Slight improvement in oxygenation Continues mechanical ventilation Orally intubated Currently no vasopressor support Not tolerating tube feeding Evidence of upper GI bleed from nasogastric tube Objective Vital Signs Date Time Temp Pulse Resp B/P Pulse Ox O2 Delivery O2 Flow Rate FiO2 03/16/16 09:00 70 26 136/64 98 03/16/16 08:00 98.0 Mechanical Ventilator 03/16/16 05:13 100 Intake and Output 03/15/16 03/15/16 03/16/16 15:00 23:00 07:00 Intake Total 1560.000 ml 1821.512 ml 1153 ml Output Total 2500 ml Balance 1560.000 ml -678.488 ml 1153 ml PHYSICAL EXAMINATION GENERAL: Well-nourished well-developed gentleman intubated on mechanical ventilation sedation VITAL SIGNS: see below. HEENT: Pupils equal, round, and reactive to light. CARDIAC: S1, S2, CHEST: Diminished air entry bilaterally. Few rales bilaterally ABDOMEN: Mildly distended. Obese soft nontender no guarding or rebound EXTREMITIES: No cyanosis, clubbing edema +2 NEUROLOGIC: Unable to assess Results/Medications Result Diagram: 03/16/16 0425 03/16/16 0425 Results 24 hrs Laboratory Tests Test 03/15/16 12:16 03/15/16 12:42 03/15/16 13:00 03/15/16 17:44 Bedside Glucose 148 Hematocrit 25.1 L 23.3 L Hemoglobin 8.3 L 7.9 L Arterial Blood HCO3 20.9 L Arterial Blood Base Excess -7.2 L Arterial Blood Oxygen Saturation 93.4 L Jovanny Test ACCEPTAB Arterial Blood Gas Puncture Site Right HEEL Arterial Blood Carboxyhemoglobin 0.3 Arterial Blood Date Drawn 03/15/2016 1:20:27 PM Arterial Blood Methemoglobin 0.3 Arterial Blood pCO2 (Temp correct) 56.1 H Arterial Blood pH (Temp corrected) 7.189 *L Arterial Blood pO2 (Temp corrected) 78.0 L Blood Gas A-a O2 Differential 578.9 H Blood Gas Actual Respiration Rate 25 Blood Gas Critical Value Read Back A HANKINS RN Blood Gas Inspiratory Pressure 45.0 Blood Gas Low PEEP Setting 10.0 Blood Gas Modality VENT - PC Blood Gas Notified Time 03/15/2016 1:35:08 PM Blood Gas Notified Whom JLD Blood Gas Respiration Rate 24.0 Blood Gas Specimen Source Blood arterial Blood Gas Temperature 37.0 FiO2 100.0 Oxyhemoglobin Percent 92.8 L Total Hemoglobin 9.3 L Test 03/15/16 17:45 03/15/16 18:27 03/15/16 23:53 03/16/16 04:25 Arterial Blood HCO3 22.6 Arterial Blood Base Excess -3.9 L Arterial Blood Oxygen Saturation 95.8 Jovanny Test ACCEPTAB Arterial Blood Gas Puncture Site Right Radial Arterial Blood Carboxyhemoglobin 0.3 Arterial Blood Date Drawn 03/15/2016 5:50:45 PM Arterial Blood Methemoglobin 0.2 Arterial Blood pCO2 (Temp correct) 48.1 H Arterial Blood pH (Temp corrected) 7.289 *L Arterial Blood pO2 (Temp corrected) 85.6 Blood Gas A-a O2 Differential 579.3 H Blood Gas Actual Respiration Rate 26 Blood Gas Critical Value Read Back L NHI RN Blood Gas High PEEP Setting 10.0 Blood Gas Modality VENT - PC Blood Gas Notified Time 03/15/2016 5:58:41 PM Blood Gas Notified Whom TM Blood Gas Respiration Rate 26.0 Blood Gas Specimen Source Blood arterial Blood Gas Temperature 37.0 FiO2 100.0 Oxyhemoglobin Percent 95.3 Total Hemoglobin 8.7 L Bedside Glucose 160 127 Anion Gap 25 H Anisocytosis 1+ Band Neutrophils % 2.0 Blood Morphology Comment Blood Urea Nitrogen 56 H Calcium Level 8.4 Carbon Dioxide Level 19 L Chloride Level 92 L Creatinine 4.26 H Eosinophils # 0.4 Eosinophils % 2.0 Glucose Level 131 Hematocrit 25.0 L Hemoglobin 8.3 L Hypochromasia 2+ Lymphocytes # 0.6 L Lymphocytes % 3.0 L Magnesium Level 2.5 Mean Corpuscular Hemoglobin 26.7 L Mean Corpuscular Hemoglobin Concent 33.3 Mean Corpuscular Volume 80.2 L Mean Platelet Volume 8.6 Metamyelocytes # 0.8 Metamyelocytes % 4.0 H Microcytosis 1+ Monocytes # 1.7 H Monocytes % 9.0 Neutrophils # 15.5 H Neutrophils % 80.0 H Phosphorus Level 11.0 H Platelet Count 255 Platelet Estimate PLT APPEAR ADEQUATE Potassium Level 4.5 Random Vancomycin Level 25.7 Red Blood Count 3.12 L Red Cell Distribution Width 17.3 H Schistocytes OCCASIONAL Sodium Level 131 L Target Cells OCCASIONAL White Blood Count 19.4 H Test 03/16/16 06:13 03/16/16 07:00 Bedside Glucose 140 Arterial Blood HCO3 21.8 L Arterial Blood Base Excess -5.8 L Jovanny Test ACCEPTAB Arterial Blood Gas Puncture Site Right Radial Arterial Blood Date Drawn 03/16/2016 8:25:45 AM Arterial Blood pCO2 (Temp correct) 50.7 H Arterial Blood pH (Temp corrected) 7.252 *L Arterial Blood pO2 (Temp corrected) 77.7 L Blood Gas A-a O2 Differential 584.6 H Blood Gas Actual Respiration Rate 27 Blood Gas Critical Value Read Back E CABUNGAL RN Blood Gas Inspiratory Pressure 50.0 Blood Gas Low PEEP Setting 10.0 Blood Gas Modality VENT - PC Blood Gas Notified Time 03/16/2016 8:44:39 AM Blood Gas Notified Whom DT Blood Gas Respiration Rate 26.0 Blood Gas Specimen Source Blood arterial Blood Gas Temperature 37.0 FiO2 100.0 Medications Current Medications Ondansetron HCl (Zofran Inj) 4 mg Q6H PRN IV NAUSEA AND/OR VOMITING; Start 02/18/16 at 09:30 Acetaminophen (Tylenol Supp) 650 mg Q4H PRN [place] PAIN LEVEL 1-3 OR FEVER Last administered on 02/24/16at 14:32; Admin Dose 650 MG; Start 02/18/16 at 09:30 Morphine Sulfate (morphine) 2 mg Q4H PRN IV PAIN LEVEL 7-10 Last administered on 03/11/16at 16:13; Admin Dose 2 MG; Start 02/18/16 at 09:30 Bisacodyl (Dulcolax Supp) 10 mg DAILY PRN [place] CONSTIPATION; Start 02/18/16 at 09 :30 Metoprolol Tartrate (Lopressor) 5 mg Q4H PRN IV HR>55 Hold SBP<100 Last administered on 03/09/16at 12:08; Admin Dose 5 MG; Start 02/21/16 at 11:30 IV Flush (NS 10 ml) 10 ml PRN PRN IV IV PROTOCOL; Start 02/21/16 at 18:30 Ferrous Sulfate (Feosol Liquid Cup) 300 mg BID GTB Last administered on at 08:51; Admin Dose 300 MG; Start 02/22/16 at 10:00 Lorazepam (Ativan) 1 mg Q1H PRN IV ANXIETY Last administered on 03/13/16at 14: 10; Admin Dose 1 MG; Start 02/23/16 at 11:30 Miscellaneous Information 1 ea NOTE XX ; Start 02/23/16 at 23:15 Glucose (Glutose) 22.5 gm Q15M PRN PO DECREASED GLUCOSE; Start 02/23/16 at 23: 15 Dextrose (D50w Syringe) 50 ml Q15M PRN IV DECREASED GLUCOSE; Start 02/23/16 at 23:15 Glucagon (Glucagen) 1 mg Q15M PRN IM DECREASED GLUCOSE; Start 02/23/16 at 23:15 Glucose (Glutose) 15 gm Q15M PRN BUCCAL DECREASED GLUCOSE; Start 02/23/16 at 23 :15 Metoclopramide HCl (Reglan) 10 mg Q6 IV Last administered on 03/16/16at 05:48; Admin Dose 10 MG; Start 03/04/16 at 06:00 Acetaminophen (Tylenol Tab) 650 mg Q6H PRN NGT PAIN AND OR ELEVATED TEMP Last administered on 03/13/16at 14:33; Admin Dose 650 MG; Start 03/06/16 at 11:30 Glucose (Glutose) 15 gm Q15M PRN NGT DECREASED GLUCOSE; Start 03/06/16 at 08: 45 Hydralazine HCl (Apresoline) 100 mg Q8 NGT Last administered on 03/16/16at 05: 49; Admin Dose 100 MG; Start 03/06/16 at 14:00 Metoprolol Tartrate (Lopressor) 150 mg Q8 NGT Last administered on 03/16/16at 05:50; Admin Dose 150 MG; Start 03/06/16 at 14:00 Hydralazine HCl (Apresoline) 10 mg Q4H PRN IV ELEVATED SYSTOLIC BP Last administered on 03/09/16at 10:52; Admin Dose 10 MG; Start 03/06/16 at 16:00 Amlodipine Besylate (Norvasc) 10 mg DAILY PO Last administered on 03/14/16at 09 :52; Admin Dose 10 MG; Start 03/09/16 at 17:00 Minoxidil (Loniten) 10 mg BID NGT Last administered on 03/16/16 08:52; Admin Dose 10 MG; Start 03/09/16 at 21:00 Insulin Aspart NOVOLOG *MODERATE* ALGORI... Q6 SC Last administered on 18:30; Admin Dose 2 UNIT; Start 03/10/16 at 06:00 Levetiracetam/ Dextrose (Keppra Iv/D5W) 115 ml @ 460 mls/hr Q12 IVPB Last administered on 03/16/16 08:51; Admin Dose 460 MLS/HR; Start 03/11/16 at 21: 00 Diltiazem HCl (Cardizem) 90 mg Q8 PO Last administered on 03/15/16 22:22; Admin Dose 90 MG; Start 03/12/16 at 14:00 Fluconazole 100 mg 100 mg DAILY PO Last administered on 03/16/16 08:51; Admin Dose 100 MG; Start 03/12/16 at 14:30 Piperacillin Sod/ Tazobactam Sod 50 ml @ 100 mls/hr Q8 IVPB Last administered on 03/16/16 05:48; Admin Dose 100 MLS/HR; Start 03/12/16 at 15:00 Vancomycin HCl 1.5 gm/Sodium Chloride 250 ml @ 83.333 mls/ hr Q24H IVPB Last administered on 03/14/16 05:42; Admin Dose 83.333 MLS/HR; Start 03/14/16 at 04:00; Status Future Hold Fentanyl 1000 mcg/ Dextrose 100 ml @ 2.5 mls/hr TITRATE IV Last administered on 03/16/16 02:15; Admin Dose 5 MLS/HR; Start 03/13/16 at 18:00 Pantoprazole 80 mg/Sodium Chloride 100 ml @ 10 mls/hr Q10H IV Last administered on 03/16/16 02:13; Admin Dose 10 MLS/HR; Start 03/14/16 at 10:30 Sodium Chloride (NS) 1,000 ml @ 80 mls/hr [id number] IV Last administered on 21:14; Admin Dose 80 MLS/HR; Start 03/15/16 at 07:30 Sucralfate 1 gm 1 gm QID NGT Last administered on 12/31/16at 08:51; Admin Dose 1 GM; Start 03/15/16 at 09:00 Midazolam HCl/ Dextrose (Versed/D5W) 50 ml @ 0 mls/hr TITRATE IV Last administered on 03/16/16at 08:13; Admin Dose 4 MLS/HR; Start 03/15/16 at 11:30 Assessment/Plan Chief Complaint/Hosp Course IMPRESSION 1. Status post Hypertensive Emergency 2. Type B Aortic Dissection. No evidence on proximal dissection on recent CT neck and chest, 3. Encephalopathy, possibly secondary to antihypertensive medications. 4. Aspiration pneumonia versus healthcare associated pneumonia requiring reintubation, chest x-ray suggestive of ARDS 5. Pulmonary embolus 6. Renal failure now requiring hemodialysis 7. Anemia evidence of GI bleed RECS: 1. Vent support decrease FiO2 as tolerated. Patient will need tracheostomy when more stable. Trial of pressure control ventilation instead of volume control, allow permissive hypercapnia. Decrease PEEP from 10-8 2. Blood pressure control 3. Sedation vacation as tolerated. Continue Percocet and fentanyl 4. Repeat hemodialysis today 5. Am CXR/ABG 6. Abx per ID 7. Hold anticoagulation secondary to GI bleed prognosis guarded Problems: ANAYA BREWSTER MD, [facility] Mar 16, 2016 09:27
--- NOTE | 2016-03-16 10:12 | CONS ---
Date/Time of Note Date/Time of Note DATE: 03/16/16 TIME: 10:09 Assessment/Plan Assessment/Plan Chief Complaint/Hosp Course Imp: 1.HTN emergency-NL EF by echo this admit-under reasonable control on PO medications only. Off all drips/heavily sedated with now low BP/HR 2.Aortic dissection-type B again demonstrated by Chest CT 02/29/16 3.abnl ecg-lateral TWI-negative troponin x 3 since admit 4.anxiety 5.ARF 6. Pericardial effusion by echo-small with NL EF 7.Encephalopathic 8.Pulmonary embolism 9.Tachycardia-S tach-only when on sedation vacation 10.CHF-diastolic acute 11.Resp [id number] 12.Seizures-on keppra 13. Acute on chronic renal failure 14.GIB/anemia Recc: -Tele in ICU -HD today -Wean vent as tolerated -serial ecg's -Continue PO BB/CCB/minoxidil/hydralazine/diltiazem as tolerated with probable need to begin weaning anti-hypertensives based upon BP control/HR -ongoing surgical follow-up -f/u MS closely -Continue keppra for seizures -Transfuse PRBC's as necessary and follow Hgb closely Problems: Consultation Date/Type/Reason Admit Date/Time Feb 18, 2016 at 09:14 Initial Consult Date 02/19/2016 Type of Consultation: Cardiology Reason for Consultation HTN/aortic dissection Referring Provider: MOSES HARRIS MD Exam/Review of Systems Vital Signs Vitals Vital Signs Date Time Temp Pulse Resp B/P Pulse Ox O2 Delivery O2 Flow Rate FiO2 03/16/16 09:00 70 26 136/64 98 03/16/16 08:00 98.0 Mechanical Ventilator 03/16/16 05:13 100 Intake and Output 03/15/16 03/15/16 03/16/16 15:00 23:00 07:00 Intake Total 1560.000 ml 1821.512 ml 1153 ml Output Total 2500 ml Balance 1560.000 ml -678.488 ml 1153 ml Exam Review of Systems: CONSTITUTIONAL: No fevers, chills. PULMONARY: intubated CARDIOVASCULAR: No obvious chest pain/palpitations GASTROINTESTINAL: No nausea/vomiting. GENITOURINARY: No hematuria/dysuria. MUSCULOSKELETAL: No obvious myagias/arthalgias. PSYCHIATRIC: No documented depression. NEUROLOGIC: sedated Constitutional: other (sedated) Psych: no complaints Head: normocephalic ENMT: mucosa pink and moist Neck: jvd (9 cm water), supple Respiratory: diminished breath sounds (at bases/B) Cardiovascular: regular rate and rhythm Gastrointestinal: non-tender, soft Musculoskeletal: muscle tone (normal) Neurological: other (sedated) Results Result Diagram: 03/16/16 0425 03/16/16 0425 Results 24 hrs Laboratory Tests Test 03/15/16 12:16 03/15/16 12:42 03/15/16 13:00 03/15/16 17:44 Bedside Glucose 148 Hematocrit 25.1 L 23.3 L Hemoglobin 8.3 L 7.9 L Arterial Blood HCO3 20.9 L Arterial Blood Base Excess -7.2 L Arterial Blood Oxygen Saturation 93.4 L Jovanny Test ACCEPTAB Arterial Blood Gas Puncture Site Right HEEL Arterial Blood Carboxyhemoglobin 0.3 Arterial Blood Date Drawn 03/15/2016 1:20:27 PM Arterial Blood Methemoglobin 0.3 Arterial Blood pCO2 (Temp correct) 56.1 H Arterial Blood pH (Temp corrected) 7.189 *L Arterial Blood pO2 (Temp corrected) 78.0 L Blood Gas A-a O2 Differential 578.9 H Blood Gas Actual Respiration Rate 25 Blood Gas Critical Value Read Back A NHI RN Blood Gas Inspiratory Pressure 45.0 Blood Gas Low PEEP Setting 10.0 Blood Gas Modality VENT - PC Blood Gas Notified Time 03/15/2016 1:35:08 PM Blood Gas Notified Whom JLD Blood Gas Respiration Rate 24.0 Blood Gas Specimen Source Blood arterial Blood Gas Temperature 37.0 FiO2 100.0 Oxyhemoglobin Percent 92.8 L Total Hemoglobin 9.3 L Test 03/15/16 17:45 03/15/16 18:27 03/15/16 23:53 03/16/16 04:25 Arterial Blood HCO3 22.6 Arterial Blood Base Excess -3.9 L Arterial Blood Oxygen Saturation 95.8 Jovanny Test ACCEPTAB Arterial Blood Gas Puncture Site Right Radial Arterial Blood Carboxyhemoglobin 0.3 Arterial Blood Date Drawn 03/15/2016 5:50:45 PM Arterial Blood Methemoglobin 0.2 Arterial Blood pCO2 (Temp correct) 48.1 H Arterial Blood pH (Temp corrected) 7.289 *L Arterial Blood pO2 (Temp corrected) 85.6 Blood Gas A-a O2 Differential 579.3 H Blood Gas Actual Respiration Rate 26 Blood Gas Critical Value Read Back L NHI RN Blood Gas High PEEP Setting 10.0 Blood Gas Modality VENT - PC Blood Gas Notified Time 03/15/2016 5:58:41 PM Blood Gas Notified Whom TM Blood Gas Respiration Rate 26.0 Blood Gas Specimen Source Blood arterial Blood Gas Temperature 37.0 FiO2 100.0 Oxyhemoglobin Percent 95.3 Total Hemoglobin 8.7 L Bedside Glucose 160 127 Anion Gap 25 H Anisocytosis 1+ Band Neutrophils % 2.0 Blood Morphology Comment Blood Urea Nitrogen 56 H Calcium Level 8.4 Carbon Dioxide Level 19 L Chloride Level 92 L Creatinine 4.26 H Eosinophils # 0.4 Eosinophils % 2.0 Glucose Level 131 Hematocrit 25.0 L Hemoglobin 8.3 L Hypochromasia 2+ Lymphocytes # 0.6 L Lymphocytes % 3.0 L Magnesium Level 2.5 Mean Corpuscular Hemoglobin 26.7 L Mean Corpuscular Hemoglobin Concent 33.3 Mean Corpuscular Volume 80.2 L Mean Platelet Volume 8.6 Metamyelocytes # 0.8 Metamyelocytes % 4.0 H Microcytosis 1+ Monocytes # 1.7 H Monocytes % 9.0 Neutrophils # 15.5 H Neutrophils % 80.0 H Phosphorus Level 11.0 H Platelet Count 255 Platelet Estimate PLT APPEAR ADEQUATE Potassium Level 4.5 Random Vancomycin Level 25.7 Red Blood Count 3.12 L Red Cell Distribution Width 17.3 H Schistocytes OCCASIONAL Sodium Level 131 L Target Cells OCCASIONAL White Blood Count 19.4 H Test 03/16/16 06:13 03/16/16 07:00 Bedside Glucose 140 Arterial Blood HCO3 21.8 L Arterial Blood Base Excess -5.8 L Jovanny Test ACCEPTAB Arterial Blood Gas Puncture Site Right Radial Arterial Blood Date Drawn 03/16/2016 8:25:45 AM Arterial Blood pCO2 (Temp correct) 50.7 H Arterial Blood pH (Temp corrected) 7.252 *L Arterial Blood pO2 (Temp corrected) 77.7 L Blood Gas A-a O2 Differential 584.6 H Blood Gas Actual Respiration Rate 27 Blood Gas Critical Value Read Back E KANDI RN Blood Gas Inspiratory Pressure 50.0 Blood Gas Low PEEP Setting 10.0 Blood Gas Modality VENT - PC Blood Gas Notified Time 03/16/2016 8:44:39 AM Blood Gas Notified Whom DT Blood Gas Respiration Rate 26.0 Blood Gas Specimen Source Blood arterial Blood Gas Temperature 37.0 FiO2 100.0 Medications Medications Current Medications Ondansetron HCl (Zofran Inj) 4 mg Q6H PRN IV NAUSEA AND/OR VOMITING; Start 02/18/16 at 09:30 Acetaminophen (Tylenol Supp) 650 mg Q4H PRN [place] PAIN LEVEL 1-3 OR FEVER Last administered on 02/24/16at 14:32; Admin Dose 650 MG; Start 02/18/16 at 09:30 Morphine Sulfate (morphine) 2 mg Q4H PRN IV PAIN LEVEL 7-10 Last administered on 03/11/16at 16:13; Admin Dose 2 MG; Start 02/18/16 at 09:30 Bisacodyl (Dulcolax Supp) 10 mg DAILY PRN [place] CONSTIPATION; Start 02/18/16 at 09 :30 Metoprolol Tartrate (Lopressor) 5 mg Q4H PRN IV HR>55 Hold SBP<100 Last administered on 03/09/16at 12:08; Admin Dose 5 MG; Start 02/21/16 at 11:30 IV Flush (NS 10 ml) 10 ml PRN PRN IV IV PROTOCOL; Start 02/21/16 at 18:30 Ferrous Sulfate (Feosol Liquid Cup) 300 mg BID GTB Last administered on at 08:51; Admin Dose 300 MG; Start 02/22/16 at 10:00 Lorazepam (Ativan) 1 mg Q1H PRN IV ANXIETY Last administered on 03/13/16at 14: 10; Admin Dose 1 MG; Start 02/23/16 at 11:30 Miscellaneous Information 1 ea NOTE XX ; Start 02/23/16 at 23:15 Glucose (Glutose) 22.5 gm Q15M PRN PO DECREASED GLUCOSE; Start 02/23/16 at 23: 15 Dextrose (D50w Syringe) 50 ml Q15M PRN IV DECREASED GLUCOSE; Start 02/23/16 at 23:15 Glucagon (Glucagen) 1 mg Q15M PRN IM DECREASED GLUCOSE; Start 02/23/16 at 23:15 Glucose (Glutose) 15 gm Q15M PRN BUCCAL DECREASED GLUCOSE; Start 02/23/16 at 23 :15 Metoclopramide HCl (Reglan) 10 mg Q6 IV Last administered on 03/16/16 05:48; Admin Dose 10 MG; Start 03/04/16 at 06:00 Acetaminophen (Tylenol Tab) 650 mg Q6H PRN NGT PAIN AND OR ELEVATED TEMP Last administered on 03/13/16at 14:33; Admin Dose 650 MG; Start 03/06/16 at 11:30 Glucose (Glutose) 15 gm Q15M PRN NGT DECREASED GLUCOSE; Start 03/06/16 at 08: 45 Hydralazine HCl (Apresoline) 100 mg Q8 NGT Last administered on 03/16/16 05: 49; Admin Dose 100 MG; Start 03/06/16 at 14:00 Metoprolol Tartrate (Lopressor) 150 mg Q8 NGT Last administered on 03/16/16 05:50; Admin Dose 150 MG; Start 03/06/16 at 14:00 Hydralazine HCl (Apresoline) 10 mg Q4H PRN IV ELEVATED SYSTOLIC BP Last administered on 03/09/16 10:52; Admin Dose 10 MG; Start 03/06/16 at 16:00 Amlodipine Besylate (Norvasc) 10 mg DAILY PO Last administered on 03/14/16 09 :52; Admin Dose 10 MG; Start 03/09/16 at 17:00 Minoxidil (Loniten) 10 mg BID NGT Last administered on 03/16/16 08:52; Admin Dose 10 MG; Start 03/09/16 at 21:00 Insulin Aspart NOVOLOG *MODERATE* ALGORI... Q6 SC Last administered on 18:30; Admin Dose 2 UNIT; Start 03/10/16 at 06:00 Levetiracetam/ Dextrose (Keppra Iv/D5W) 115 ml @ 460 mls/hr Q12 IVPB Last administered on 03/16/16 08:51; Admin Dose 460 MLS/HR; Start 03/11/16 at 21: 00 Diltiazem HCl (Cardizem) 90 mg Q8 PO Last administered on 03/15/16 22:22; Admin Dose 90 MG; Start 03/12/16 at 14:00 Fluconazole 100 mg 100 mg DAILY PO Last administered on 03/16/16 08:51; Admin Dose 100 MG; Start 03/12/16 at 14:30 Piperacillin Sod/ Tazobactam Sod 50 ml @ 100 mls/hr Q8 IVPB Last administered on 03/16/16at 05:48; Admin Dose 100 MLS/HR; Start 03/12/16 at 15:00 Vancomycin HCl 1.5 gm/Sodium Chloride 250 ml @ 83.333 mls/ hr Q24H IVPB Last administered on 03/14/16at 05:42; Admin Dose 83.333 MLS/HR; Start 03/14/16 at 04:00; Status Future Hold Fentanyl 1000 mcg/ Dextrose 100 ml @ 2.5 mls/hr TITRATE IV Last administered on 03/16/16at 02:15; Admin Dose 5 MLS/HR; Start 03/13/16 at 18:00 Pantoprazole 80 mg/Sodium Chloride 100 ml @ 10 mls/hr Q10H IV Last administered on 03/16/16at 02:13; Admin Dose 10 MLS/HR; Start 03/14/16 at 10:30 Sodium Chloride (NS) 1,000 ml @ 80 mls/hr [id number] IV Last administered on at 21:14; Admin Dose 80 MLS/HR; Start 03/15/16 at 07:30 Sucralfate 1 gm 1 gm QID NGT Last administered on 03/16/16at 08:51; Admin Dose 1 GM; Start 03/15/16 at 09:00 Midazolam HCl/ Dextrose (Versed/D5W) 50 ml @ 0 mls/hr TITRATE IV Last administered on 03/16/16 08:13; Admin Dose 4 MLS/HR; Start 03/15/16 at 11:30 JNUAID PAZ Mar 16, 2016 10:12
[2016-03-16] MEDS: SOD CHLORIDE 0.9% 1,000 ML IV SCH (12:51)
--- NOTE | 2016-03-16 12:52 | PN ---
Date/Time of Note Date/Time of Note DATE: 03/16/16 TIME: 12:52 Assessment/Plan Lines/Catheters IV Catheter Type (from Nrsg): Saline Lock Smalls in Place (from Nrsg): Yes Assessment/Plan Chief Complaint/Hosp Course IMPRESSION: Type B aortic dissection. The patient's blood pressure more controlled RECOMMENDATIONS: At this time, we would continue blood pressure management, monitor vital signs and laboratory values in an intensive care unit setting. Vent support per pulm medicine No plan for surgery. Abx Repeat CTA Dissection involving the thoracic aorta arising distal to the origin of the left subclavian artery and extending into the abdominal aorta. The distal extent was not included on the study. Flow within both true and false lumen to the level of the celiac artery. Would continue BP control , Vent support Type B aortic dissection SP Dialysys cath follow neurology recc. no plan for surgery at this time I discussed with the patient and Dr. Mccabe and staff Problems: Subjective 24 Hr Interval Summary Constitutional: improved Pain Control: mild Exam/Review of Systems Vital Signs Vitals Vital Signs Date Time Temp Pulse Resp B/P Pulse Ox O2 Delivery O2 Flow Rate FiO2 03/16/16 12:31 77 18 03/16/16 11:10 98 100 03/16/16 09:00 136/64 03/16/16 08:00 98.0 Mechanical Ventilator Intake and Output 03/15/16 03/15/16 03/16/16 14:59 22:59 06:59 Intake Total 1704.000 ml 1873.512 ml 1282 ml Output Total 2500 ml Balance 1704.000 ml -626.488 ml 1282 ml Exam ENMT: mucosa pink and moist, nl external ears & nose, nl lips & teeth, nl nasal mucosa & septum Neck: non-tender, supple Respiratory: clear to auscultation, normal air movement Cardiovascular: nl pulses, regular rate and rhythm Results Result Diagram: 03/16/16 0425 03/16/16 0425 KAYLYN RADFORD MD Mar 16, 2016 12:52
--- NOTE | 2016-03-16 14:03 | CONS ---
Date/Time of Note Date/Time of Note DATE: 03/16/16 TIME: 13:49 Assessment/Plan Assessment/Plan Chief Complaint/Hosp Course ID PROGRESS NOTE TOTAL ABX DAY # => Vanco IV, Zosyn, Diflucan 24H INTERVAL SUMMARY * 45 yo obese M, vented, noncommunicative == Chart reviewed: Type B aortic dissection * Orally intubated, non-communicative, chart reviewed * CXR: slightly improved w/bilateral lung opacities, infiltrates Result Diagram: 03/16/1642403/16/16424 PHYSICAL EXAMINATION: GENERAL: 45 yo overweight M, VSS, NAD, Vented HEENT: ETT-> Secure to Vent NECK: Supple, trachea midline. CHEST: Rise symmetrical. Scattered coarse BS HEART: NSR on tele ABDOMEN: Soft EXTREMITIES: Without cyanosis. Bilateral trace edema. ID ASSESSMENT: 1. Severe sepsis due to PNA w/persistent leukocytosis * 02/19/16 BCx(+) Staph-CoNS 1/2 bottles on admission => consistent w/skin contaminant * Repeat BCx (-) 2. Acute respiratory failure. 3. Aspiration PNA => Sputum culture grew E. coli, Angelina albicans. 4. Congestive heart failure exacerbation. 5. New onset of seizures. 6. HTN urgency associated with Type B aortic dissection. 7. Acute renal failure=> HD catheter 8. Anemia. 9. Pulmonary emboli INVASIVES: ETT, HD access, NG tube, Smalls, PICC line. CURRENT ABX: 1. Zosyn. 2. Fluconazole. 3. Vancomycin IV s/p Ceftriaxone ID RECOMMENDATIONS: CONTINUE Current ABX, Continue supportive care, await clinical improvement * Case d/w Dr. Mccabe = renal note recommends avoid nephrotoxic ABX; Dr. Mccabe recommending continue Vanco IV + Zosyn . Problems: Consultation Date/Type/Reason Admit Date/Time Feb 18, 2016 at 09:14 Type of Consultation: ID Referring Provider: MOSES HARRIS MD Exam/Review of Systems Vital Signs Vitals Vital Signs Date Time Temp Pulse Resp B/P Pulse Ox O2 Delivery O2 Flow Rate FiO2 03/16/16 12:31 77 18 03/16/16 11:10 98 100 03/16/16 09:00 136/64 03/16/16 08:00 98.0 Mechanical Ventilator Intake and Output 03/15/16 03/15/16 03/16/16 15:00 23:00 07:00 Intake Total 1560.000 ml 1821.512 ml 1252 ml Output Total 2500 ml Balance 1560.000 ml -678.488 ml 1252 ml Results Result Diagram: 03/16/16 0425 03/16/16 0425 Results 24 hrs Laboratory Tests Test 03/15/16 17:44 03/15/16 17:45 03/15/16 18:27 03/15/16 23:53 Hematocrit 23.3 L Hemoglobin 7.9 L Arterial Blood HCO3 22.6 Arterial Blood Base Excess -3.9 L Arterial Blood Oxygen Saturation 95.8 Jovanny Test ACCEPTAB Arterial Blood Gas Puncture Site Right Radial Arterial Blood Carboxyhemoglobin 0.3 Arterial Blood Date Drawn 03/15/2016 5:50:45 PM Arterial Blood Methemoglobin 0.2 Arterial Blood pCO2 (Temp correct) 48.1 H Arterial Blood pH (Temp corrected) 7.289 *L Arterial Blood pO2 (Temp corrected) 85.6 Blood Gas A-a O2 Differential 579.3 H Blood Gas Actual Respiration Rate 26 Blood Gas Critical Value Read Back L NHI RN Blood Gas High PEEP Setting 10.0 Blood Gas Modality VENT - PC Blood Gas Notified Time 03/15/2016 5:58:41 PM Blood Gas Notified Whom TM Blood Gas Respiration Rate 26.0 Blood Gas Specimen Source Blood arterial Blood Gas Temperature 37.0 FiO2 100.0 Oxyhemoglobin Percent 95.3 Total Hemoglobin 8.7 L Bedside Glucose 160 127 Test 03/16/16 04:25 03/16/16 06:13 03/16/16 07:00 03/16/16 12:53 Anion Gap 25 H Anisocytosis 1+ Band Neutrophils % 2.0 Blood Morphology Comment Blood Urea Nitrogen 56 H Calcium Level 8.4 Carbon Dioxide Level 19 L Chloride Level 92 L Creatinine 4.26 H Eosinophils # 0.4 Eosinophils % 2.0 Glucose Level 131 Hematocrit 25.0 L Hemoglobin 8.3 L Hypochromasia 2+ Lymphocytes # 0.6 L Lymphocytes % 3.0 L Magnesium Level 2.5 Mean Corpuscular Hemoglobin 26.7 L Mean Corpuscular Hemoglobin Concent 33.3 Mean Corpuscular Volume 80.2 L Mean Platelet Volume 8.6 Metamyelocytes # 0.8 Metamyelocytes % 4.0 H Microcytosis 1+ Monocytes # 1.7 H Monocytes % 9.0 Neutrophils # 15.5 H Neutrophils % 80.0 H Phosphorus Level 11.0 H Platelet Count 255 Platelet Estimate PLT APPEAR ADEQUATE Potassium Level 4.5 Random Vancomycin Level 25.7 Red Blood Count 3.12 L Red Cell Distribution Width 17.3 H Schistocytes OCCASIONAL Sodium Level 131 L Target Cells OCCASIONAL White Blood Count 19.4 H Bedside Glucose 140 137 Arterial Blood HCO3 21.8 L Arterial Blood Base Excess -5.8 L Jovanny Test ACCEPTAB Arterial Blood Gas Puncture Site Right Radial Arterial Blood Date Drawn 03/16/2016 8:25:45 AM Arterial Blood pCO2 (Temp correct) 50.7 H Arterial Blood pH (Temp corrected) 7.252 *L Arterial Blood pO2 (Temp corrected) 77.7 L Blood Gas A-a O2 Differential 584.6 H Blood Gas Actual Respiration Rate 27 Blood Gas Critical Value Read Back E CABUNGAL RN Blood Gas Inspiratory Pressure 50.0 Blood Gas Low PEEP Setting 10.0 Blood Gas Modality VENT - PC Blood Gas Notified Time 03/16/2016 8:44:39 AM Blood Gas Notified Whom DT Blood Gas Respiration Rate 26.0 Blood Gas Specimen Source Blood arterial Blood Gas Temperature 37.0 FiO2 100.0 Medications Medications Current Medications Ondansetron HCl (Zofran Inj) 4 mg Q6H PRN IV NAUSEA AND/OR VOMITING; Start 02/18/16 at 09:30 Acetaminophen (Tylenol Supp) 650 mg Q4H PRN [place] PAIN LEVEL 1-3 OR FEVER Last administered on 02/24/16at 14:32; Admin Dose 650 MG; Start 02/18/16 at 09:30 Morphine Sulfate (morphine) 2 mg Q4H PRN IV PAIN LEVEL 7-10 Last administered on 03/11/16at 16:13; Admin Dose 2 MG; Start 02/18/16 at 09:30 Bisacodyl (Dulcolax Supp) 10 mg DAILY PRN [place] CONSTIPATION; Start 02/18/16 at 09 :30 Metoprolol Tartrate (Lopressor) 5 mg Q4H PRN IV HR>55 Hold SBP<100 Last administered on 03/09/16at 12:08; Admin Dose 5 MG; Start 02/21/16 at 11:30 IV Flush (NS 10 ml) 10 ml PRN PRN IV IV PROTOCOL; Start 02/21/16 at 18:30 Ferrous Sulfate (Feosol Liquid Cup) 300 mg BID GTB Last administered on at 08:51; Admin Dose 300 MG; Start 02/22/16 at 10:00 Lorazepam (Ativan) 1 mg Q1H PRN IV ANXIETY Last administered on 03/13/16at 14: 10; Admin Dose 1 MG; Start 02/23/16 at 11:30 Miscellaneous Information 1 ea NOTE XX ; Start 02/23/16 at 23:15 Glucose (Glutose) 22.5 gm Q15M PRN PO DECREASED GLUCOSE; Start 02/23/16 at 23: 15 Dextrose (D50w Syringe) 50 ml Q15M PRN IV DECREASED GLUCOSE; Start 02/23/16 at 23:15 Glucagon (Glucagen) 1 mg Q15M PRN IM DECREASED GLUCOSE; Start 02/23/16 at 23:15 Glucose (Glutose) 15 gm Q15M PRN BUCCAL DECREASED GLUCOSE; Start 02/23/16 at 23 :15 Metoclopramide HCl (Reglan) 10 mg Q6 IV Last administered on 03/16/16at 12:51; Admin Dose 10 MG; Start 03/04/16 at 06:00 Acetaminophen (Tylenol Tab) 650 mg Q6H PRN NGT PAIN AND OR ELEVATED TEMP Last administered on 03/13/16at 14:33; Admin Dose 650 MG; Start 03/06/16 at 11:30 Glucose (Glutose) 15 gm Q15M PRN NGT DECREASED GLUCOSE; Start 03/06/16 at 08: 45 Hydralazine HCl (Apresoline) 100 mg Q8 NGT Last administered on 03/16/16at 05: 49; Admin Dose 100 MG; Start 03/06/16 at 14:00 Metoprolol Tartrate (Lopressor) 150 mg Q8 NGT Last administered on 03/16/16at 05:50; Admin Dose 150 MG; Start 03/06/16 at 14:00 Hydralazine HCl (Apresoline) 10 mg Q4H PRN IV ELEVATED SYSTOLIC BP Last administered on 03/09/16at 10:52; Admin Dose 10 MG; Start 03/06/16 at 16:00 Amlodipine Besylate (Norvasc) 10 mg DAILY PO Last administered on 03/14/16at 09 :52; Admin Dose 10 MG; Start 03/09/16 at 17:00 Minoxidil (Loniten) 10 mg BID NGT Last administered on 03/16/16at 08:52; Admin Dose 10 MG; Start 03/09/16 at 21:00 Insulin Aspart NOVOLOG *MODERATE* ALGORI... Q6 SC Last administered on 18:30; Admin Dose 2 UNIT; Start 03/10/16 at 06:00 Levetiracetam/ Dextrose (Keppra Iv/D5W) 115 ml @ 460 mls/hr Q12 IVPB Last administered on 03/16/16at 08:51; Admin Dose 460 MLS/HR; Start 03/11/16 at 21: 00 Diltiazem HCl (Cardizem) 90 mg Q8 PO Last administered on 03/15/16at 22:22; Admin Dose 90 MG; Start 03/12/16 at 14:00 Fluconazole 100 mg 100 mg DAILY PO Last administered on 03/16/16at 08:51; Admin Dose 100 MG; Start 03/12/16 at 14:30 Piperacillin Sod/ Tazobactam Sod 50 ml @ 100 mls/hr Q8 IVPB Last administered on 03/16/16at 05:48; Admin Dose 100 MLS/HR; Start 03/12/16 at 15:00 Fentanyl 1000 mcg/ Dextrose 100 ml @ 2.5 mls/hr TITRATE IV Last administered on 03/16/16 02:15; Admin Dose 5 MLS/HR; Start 03/13/16 at 18:00 Pantoprazole 80 mg/Sodium Chloride 100 ml @ 10 mls/hr Q10H IV Last administered on 03/16/16at 12:16; Admin Dose 10 MLS/HR; Start 03/14/16 at 10:30 Sodium Chloride (NS) 1,000 ml @ 80 mls/hr [id number] IV Last administered on at 12:51; Admin Dose 80 MLS/HR; Start 03/15/16 at 07:30 Sucralfate 1 gm 1 gm QID NGT Last administered on 03/16/16 12:51; Admin Dose 1 GM; Start 03/15/16 at 09:00 Midazolam HCl/ Dextrose (Versed/D5W) 50 ml @ 0 mls/hr TITRATE IV Last administered on 03/16/16at 08:13; Admin Dose 4 MLS/HR; Start 03/15/16 at 11:30 LD YBARRA NP Mar 16, 2016 13:59
--- NOTE | 2016-03-16 16:25 | CONS ---
Date/Time of Note Date/Time of Note DATE: 03/16/16 TIME: 16:24 Assessment/Plan Assessment/Plan Chief Complaint/Hosp Course Assessment/Plan 1. Acute kidney injury, likely secondary to acute tubular necrosis from contrast-induced nephropathy and also secondary to ischemic acute tubular necrosis from aortic dissection.stable WORSENING AVOID NEPHROTOXIC DRUGS 2. A type B Helio aortic dissection. 3. Hypertension 4. acute resp failiure intubated on vent 5 anasarca plan hd Problems: Consultation Date/Type/Reason Admit Date/Time Feb 18, 2016 at 09:14 Initial Consult Date 02/26/16 Type of Consultation: renal Referring Provider: MOSES HARRIS MD 24 HR Interval Summary Subjective hx not possible: pt non-verbal Exam/Review of Systems Vital Signs Vitals Vital Signs Date Time Temp Pulse Resp B/P Pulse Ox O2 Delivery O2 Flow Rate FiO2 03/16/16 14:00 84 20 153/75 100 Mechanical Ventilator 03/16/16 12:00 98.2 03/16/16 11:10 100 Intake and Output 03/15/16 03/15/16 03/16/16 14:59 22:59 06:59 Intake Total 1704.000 ml 1873.512 ml 1282 ml Output Total 2500 ml Balance 1704.000 ml -626.488 ml 1282 ml Exam Respiratory: diminished breath sounds Cardiovascular: regular rate and rhythm Gastrointestinal: bowel sounds (+) Extremities: edema (++) Results Result Diagram: 03/16/16 0425 03/16/16 0425 Results 24 hrs Laboratory Tests Test 03/15/16 17:44 03/15/16 17:45 03/15/16 18:27 03/15/16 23:53 Hematocrit 23.3 L Hemoglobin 7.9 L Arterial Blood HCO3 22.6 Arterial Blood Base Excess -3.9 L Arterial Blood Oxygen Saturation 95.8 Jovanny Test ACCEPTAB Arterial Blood Gas Puncture Site Right Radial Arterial Blood Carboxyhemoglobin 0.3 Arterial Blood Date Drawn 03/15/2016 5:50:45 PM Arterial Blood Methemoglobin 0.2 Arterial Blood pCO2 (Temp correct) 48.1 H Arterial Blood pH (Temp corrected) 7.289 *L Arterial Blood pO2 (Temp corrected) 85.6 Blood Gas A-a O2 Differential 579.3 H Blood Gas Actual Respiration Rate 26 Blood Gas Critical Value Read Back L NHI RN Blood Gas High PEEP Setting 10.0 Blood Gas Modality VENT - PC Blood Gas Notified Time 03/15/2016 5:58:41 PM Blood Gas Notified Whom TM Blood Gas Respiration Rate 26.0 Blood Gas Specimen Source Blood arterial Blood Gas Temperature 37.0 FiO2 100.0 Oxyhemoglobin Percent 95.3 Total Hemoglobin 8.7 L Bedside Glucose 160 127 Test 03/16/16 04:25 03/16/16 06:13 03/16/16 07:00 03/16/16 12:53 Anion Gap 25 H Anisocytosis 1+ Band Neutrophils % 2.0 Blood Morphology Comment Blood Urea Nitrogen 56 H Calcium Level 8.4 Carbon Dioxide Level 19 L Chloride Level 92 L Creatinine 4.26 H Eosinophils # 0.4 Eosinophils % 2.0 Glucose Level 131 Hematocrit 25.0 L Hemoglobin 8.3 L Hypochromasia 2+ Lymphocytes # 0.6 L Lymphocytes % 3.0 L Magnesium Level 2.5 Mean Corpuscular Hemoglobin 26.7 L Mean Corpuscular Hemoglobin Concent 33.3 Mean Corpuscular Volume 80.2 L Mean Platelet Volume 8.6 Metamyelocytes # 0.8 Metamyelocytes % 4.0 H Microcytosis 1+ Monocytes # 1.7 H Monocytes % 9.0 Neutrophils # 15.5 H Neutrophils % 80.0 H Phosphorus Level 11.0 H Platelet Count 255 Platelet Estimate PLT APPEAR ADEQUATE Potassium Level 4.5 Random Vancomycin Level 25.7 Red Blood Count 3.12 L Red Cell Distribution Width 17.3 H Schistocytes OCCASIONAL Sodium Level 131 L Target Cells OCCASIONAL White Blood Count 19.4 H Bedside Glucose 140 137 Arterial Blood HCO3 21.8 L Arterial Blood Base Excess -5.8 L Jovanny Test ACCEPTAB Arterial Blood Gas Puncture Site Right Radial Arterial Blood Date Drawn 03/16/2016 8:25:45 AM Arterial Blood pCO2 (Temp correct) 50.7 H Arterial Blood pH (Temp corrected) 7.252 *L Arterial Blood pO2 (Temp corrected) 77.7 L Blood Gas A-a O2 Differential 584.6 H Blood Gas Actual Respiration Rate 27 Blood Gas Critical Value Read Back E KANDI RN Blood Gas Inspiratory Pressure 50.0 Blood Gas Low PEEP Setting 10.0 Blood Gas Modality VENT - PC Blood Gas Notified Time 03/16/2016 8:44:39 AM Blood Gas Notified Whom DT Blood Gas Respiration Rate 26.0 Blood Gas Specimen Source Blood arterial Blood Gas Temperature 37.0 FiO2 100.0 Medications Medications Current Medications Ondansetron HCl (Zofran Inj) 4 mg Q6H PRN IV NAUSEA AND/OR VOMITING; Start 02/18/16 at 09:30 Acetaminophen (Tylenol Supp) 650 mg Q4H PRN [place] PAIN LEVEL 1-3 OR FEVER Last administered on 02/24/16at 14:32; Admin Dose 650 MG; Start 02/18/16 at 09:30 Morphine Sulfate (morphine) 2 mg Q4H PRN IV PAIN LEVEL 7-10 Last administered on 03/11/16at 16:13; Admin Dose 2 MG; Start 02/18/16 at 09:30 Bisacodyl (Dulcolax Supp) 10 mg DAILY PRN [place] CONSTIPATION; Start 02/18/16 at 09 :30 Metoprolol Tartrate (Lopressor) 5 mg Q4H PRN IV HR>55 Hold SBP<100 Last administered on 03/09/16at 12:08; Admin Dose 5 MG; Start 02/21/16 at 11:30 IV Flush (NS 10 ml) 10 ml PRN PRN IV IV PROTOCOL; Start 02/21/16 at 18:30 Ferrous Sulfate (Feosol Liquid Cup) 300 mg BID GTB Last administered on at 08:51; Admin Dose 300 MG; Start 02/22/16 at 10:00 Lorazepam (Ativan) 1 mg Q1H PRN IV ANXIETY Last administered on 03/13/16at 14: 10; Admin Dose 1 MG; Start 02/23/16 at 11:30 Miscellaneous Information 1 ea NOTE XX ; Start 02/23/16 at 23:15 Glucose (Glutose) 22.5 gm Q15M PRN PO DECREASED GLUCOSE; Start 02/23/16 at 23: 15 Dextrose (D50w Syringe) 50 ml Q15M PRN IV DECREASED GLUCOSE; Start 02/23/16 at 23:15 Glucagon (Glucagen) 1 mg Q15M PRN IM DECREASED GLUCOSE; Start 02/23/16 at 23:15 Glucose (Glutose) 15 gm Q15M PRN BUCCAL DECREASED GLUCOSE; Start 02/23/16 at 23 :15 Metoclopramide HCl (Reglan) 10 mg Q6 IV Last administered on 03/16/16at 12:51; Admin Dose 10 MG; Start 03/04/16 at 06:00 Acetaminophen (Tylenol Tab) 650 mg Q6H PRN NGT PAIN AND OR ELEVATED TEMP Last administered on 03/13/16 14:33; Admin Dose 650 MG; Start 03/06/16 at 11:30 Glucose (Glutose) 15 gm Q15M PRN NGT DECREASED GLUCOSE; Start 03/06/16 at 08: 45 Hydralazine HCl (Apresoline) 100 mg Q8 NGT Last administered on 03/16/16at 14: 48; Admin Dose 100 MG; Start 03/06/16 at 14:00 Metoprolol Tartrate (Lopressor) 150 mg Q8 NGT Last administered on 03/16/16 14:50; Admin Dose 150 MG; Start 03/06/16 at 14:00 Hydralazine HCl (Apresoline) 10 mg Q4H PRN IV ELEVATED SYSTOLIC BP Last administered on 03/09/16 10:52; Admin Dose 10 MG; Start 03/06/16 at 16:00 Amlodipine Besylate (Norvasc) 10 mg DAILY PO Last administered on 03/14/16at 09 :52; Admin Dose 10 MG; Start 03/09/16 at 17:00 Minoxidil (Loniten) 10 mg BID NGT Last administered on 03/16/16 08:52; Admin Dose 10 MG; Start 03/09/16 at 21:00 Insulin Aspart NOVOLOG *MODERATE* ALGORI... Q6 SC Last administered on 18:30; Admin Dose 2 UNIT; Start 03/10/16 at 06:00 Levetiracetam/ Dextrose (Keppra Iv/D5W) 115 ml @ 460 mls/hr Q12 IVPB Last administered on 03/16/16 08:51; Admin Dose 460 MLS/HR; Start 03/11/16 at 21: 00 Diltiazem HCl (Cardizem) 90 mg Q8 PO Last administered on 03/16/16 14:49; Admin Dose 90 MG; Start 03/12/16 at 14:00 Fluconazole 100 mg 100 mg DAILY PO Last administered on 03/16/16 08:51; Admin Dose 100 MG; Start 03/12/16 at 14:30 Piperacillin Sod/ Tazobactam Sod 50 ml @ 100 mls/hr Q8 IVPB Last administered on 03/16/16at 14:48; Admin Dose 100 MLS/HR; Start 03/12/16 at 15:00 Fentanyl 1000 mcg/ Dextrose 100 ml @ 2.5 mls/hr TITRATE IV Last administered on 03/16/16at 02:15; Admin Dose 5 MLS/HR; Start 03/13/16 at 18:00 Pantoprazole/ Sodium Chloride (Protonix Iv/NS) 100 ml @ 10 mls/hr Q10H IV Last administered on 03/16/16at 12:16; Admin Dose 10 MLS/HR; Start 03/14/16 at 10:30 Sucralfate 1 gm 1 gm QID NGT Last administered on 03/16/16at 12:51; Admin Dose 1 GM; Start 03/15/16 at 09:00 Midazolam HCl/ Dextrose (Versed/D5W) 50 ml @ 0 mls/hr TITRATE IV Last administered on 03/16/16at 08:13; Admin Dose 4 MLS/HR; Start 03/15/16 at 11:30 SASHA OWEN MD Mar 16, 2016 16:25
[2016-03-16 17:19] LABS: HEMATOCRIT 23.6 % (42.0-52.0); HEMOGLOBIN 7.9 g/dl (14.0-18.0)
--- NOTE | 2016-03-16 20:42 | CONS ---
Date/Time of Note Date/Time of Note DATE: 03/16/16 TIME: 20:41 Assessment/Plan Assessment/Plan Chief Complaint/Hosp Course Assessment/Plan Coffee-ground emesis/Anemia * Continue PPI drip * transfuse 2 units for hemoglobin less than 7.5 * Emergent EGD with precipitous drop of hemoglobin and/or overt signs of the UGIB * Add Carafate 1g QID Dysphgia, status post NG tube placement * Monitor residual every 6 hours, hold NG tube feed for residual greater than 150mL * tube feed as tolerated Type B aortic dissection * No surgery planned Thrombus in left cephalic vein * Heparin on hold due to drop in hemoglobin Problems: Consultation Date/Type/Reason Admit Date/Time Feb 18, 2016 at 09:14 Initial Consult Date 02/26/16 Type of Consultation: GI Referring Provider: MOSES HARRIS MD 24 HR Interval Summary Free Text/Dictation sedated, appears comfortable. Subjective hx not possible: pt non-verbal Exam/Review of Systems Vital Signs Vitals Vital Signs Date Time Temp Pulse Resp B/P Pulse Ox O2 Delivery O2 Flow Rate FiO2 03/16/16 18:00 88 21 162/72 98 Mechanical Ventilator 03/16/16 17:20 100 03/16/16 17:00 98.6 Intake and Output 03/15/16 03/15/16 03/16/16 15:00 23:00 07:00 Intake Total 1560.000 ml 1821.512 ml 1252 ml Output Total 2500 ml Balance 1560.000 ml -678.488 ml 1252 ml Exam Constitutional: non-verbal Psych: confusion Head: atraumatic, normocephalic Eyes: EOMI, nl conjunctiva, nl lids, nl sclera ENMT: mucosa pink and moist, nl external ears & nose, nl lips & teeth, nl nasal mucosa & septum Neck: non-tender, supple Respiratory: clear to auscultation, normal air movement Cardiovascular: nl pulses, regular rate and rhythm Gastrointestinal: bowel sounds, non-tender, soft Results Result Diagram: 03/16/16 1640 03/16/16 0425 Results 24 hrs Laboratory Tests Test 03/15/16 23:53 03/16/16 04:25 03/16/16 06:13 03/16/16 07:00 Bedside Glucose 127 140 Anion Gap 25 H Anisocytosis 1+ Band Neutrophils % 2.0 Blood Morphology Comment Blood Urea Nitrogen 56 H Calcium Level 8.4 Carbon Dioxide Level 19 L Chloride Level 92 L Creatinine 4.26 H Eosinophils # 0.4 Eosinophils % 2.0 Glucose Level 131 Hematocrit 25.0 L Hemoglobin 8.3 L Hypochromasia 2+ Lymphocytes # 0.6 L Lymphocytes % 3.0 L Magnesium Level 2.5 Mean Corpuscular Hemoglobin 26.7 L Mean Corpuscular Hemoglobin Concent 33.3 Mean Corpuscular Volume 80.2 L Mean Platelet Volume 8.6 Metamyelocytes # 0.8 Metamyelocytes % 4.0 H Microcytosis 1+ Monocytes # 1.7 H Monocytes % 9.0 Neutrophils # 15.5 H Neutrophils % 80.0 H Phosphorus Level 11.0 H Platelet Count 255 Platelet Estimate PLT APPEAR ADEQUATE Potassium Level 4.5 Random Vancomycin Level 25.7 Red Blood Count 3.12 L Red Cell Distribution Width 17.3 H Schistocytes OCCASIONAL Sodium Level 131 L Target Cells OCCASIONAL White Blood Count 19.4 H Arterial Blood HCO3 21.8 L Arterial Blood Base Excess -5.8 L Jovanny Test ACCEPTAB Arterial Blood Gas Puncture Site Right Radial Arterial Blood Date Drawn 03/16/2016 8:25:45 AM Arterial Blood pCO2 (Temp correct) 50.7 H Arterial Blood pH (Temp corrected) 7.252 *L Arterial Blood pO2 (Temp corrected) 77.7 L Blood Gas A-a O2 Differential 584.6 H Blood Gas Actual Respiration Rate 27 Blood Gas Critical Value Read Back E CABUNGAL RN Blood Gas Inspiratory Pressure 50.0 Blood Gas Low PEEP Setting 10.0 Blood Gas Modality VENT - PC Blood Gas Notified Time 03/16/2016 8:44:39 AM Blood Gas Notified Whom DT Blood Gas Respiration Rate 26.0 Blood Gas Specimen Source Blood arterial Blood Gas Temperature 37.0 FiO2 100.0 Test 03/16/16 12:53 03/16/16 16:40 03/16/16 17:13 Bedside Glucose 137 128 Hematocrit 23.6 L Hemoglobin 7.9 L Medications Medications Current Medications Ondansetron HCl (Zofran Inj) 4 mg Q6H PRN IV NAUSEA AND/OR VOMITING; Start 02/18/16 at 09:30 Acetaminophen (Tylenol Supp) 650 mg Q4H PRN [place] PAIN LEVEL 1-3 OR FEVER Last administered on 02/24/16at 14:32; Admin Dose 650 MG; Start 02/18/16 at 09:30 Morphine Sulfate (morphine) 2 mg Q4H PRN IV PAIN LEVEL 7-10 Last administered on 03/11/16at 16:13; Admin Dose 2 MG; Start 02/18/16 at 09:30 Bisacodyl (Dulcolax Supp) 10 mg DAILY PRN [place] CONSTIPATION; Start 02/18/16 at 09 :30 Metoprolol Tartrate (Lopressor) 5 mg Q4H PRN IV HR>55 Hold SBP<100 Last administered on 03/09/16at 12:08; Admin Dose 5 MG; Start 02/21/16 at 11:30 IV Flush (NS 10 ml) 10 ml PRN PRN IV IV PROTOCOL; Start 02/21/16 at 18:30 Ferrous Sulfate (Feosol Liquid Cup) 300 mg BID GTB Last administered on at 20:28; Admin Dose 300 MG; Start 02/22/16 at 10:00 Lorazepam (Ativan) 1 mg Q1H PRN IV ANXIETY Last administered on 03/13/16at 14: 10; Admin Dose 1 MG; Start 02/23/16 at 11:30 Miscellaneous Information 1 ea NOTE XX ; Start 02/23/16 at 23:15 Glucose (Glutose) 22.5 gm Q15M PRN PO DECREASED GLUCOSE; Start 02/23/16 at 23: 15 Dextrose (D50w Syringe) 50 ml Q15M PRN IV DECREASED GLUCOSE; Start 02/23/16 at 23:15 Glucagon (Glucagen) 1 mg Q15M PRN IM DECREASED GLUCOSE; Start 02/23/16 at 23:15 Glucose (Glutose) 15 gm Q15M PRN BUCCAL DECREASED GLUCOSE; Start 02/23/16 at 23 :15 Metoclopramide HCl (Reglan) 10 mg Q6 IV Last administered on 03/16/16at 17:15; Admin Dose 10 MG; Start 03/04/16 at 06:00 Acetaminophen (Tylenol Tab) 650 mg Q6H PRN NGT PAIN AND OR ELEVATED TEMP Last administered on 03/13/16at 14:33; Admin Dose 650 MG; Start 03/06/16 at 11:30 Glucose (Glutose) 15 gm Q15M PRN NGT DECREASED GLUCOSE; Start 03/06/16 at 08: 45 Hydralazine HCl (Apresoline) 100 mg Q8 NGT Last administered on 03/16/16 14: 48; Admin Dose 100 MG; Start 03/06/16 at 14:00 Metoprolol Tartrate (Lopressor) 150 mg Q8 NGT Last administered on 03/16/16 14:50; Admin Dose 150 MG; Start 03/06/16 at 14:00 Hydralazine HCl (Apresoline) 10 mg Q4H PRN IV ELEVATED SYSTOLIC BP Last administered on 03/09/16 10:52; Admin Dose 10 MG; Start 03/06/16 at 16:00 Amlodipine Besylate (Norvasc) 10 mg DAILY PO Last administered on 03/14/16 09 :52; Admin Dose 10 MG; Start 03/09/16 at 17:00 Minoxidil (Loniten) 10 mg BID NGT Last administered on 03/16/16 20:28; Admin Dose 10 MG; Start 03/09/16 at 21:00 Insulin Aspart NOVOLOG *MODERATE* ALGORI... Q6 SC Last administered on 18:30; Admin Dose 2 UNIT; Start 03/10/16 at 06:00 Levetiracetam/ Dextrose (Keppra Iv/D5W) 115 ml @ 460 mls/hr Q12 IVPB Last administered on 03/16/16 20:28; Admin Dose 460 MLS/HR; Start 03/11/16 at 21: 00 Diltiazem HCl (Cardizem) 90 mg Q8 PO Last administered on 03/16/16 14:49; Admin Dose 90 MG; Start 03/12/16 at 14:00 Fluconazole 100 mg 100 mg DAILY PO Last administered on 03/16/16 08:51; Admin Dose 100 MG; Start 03/12/16 at 14:30 Piperacillin Sod/ Tazobactam Sod 50 ml @ 100 mls/hr Q8 IVPB Last administered on 03/16/16 14:48; Admin Dose 100 MLS/HR; Start 03/12/16 at 15:00 Fentanyl 1000 mcg/ Dextrose 100 ml @ 2.5 mls/hr TITRATE IV Last administered on 03/16/16 02:15; Admin Dose 5 MLS/HR; Start 03/13/16 at 18:00 Pantoprazole/ Sodium Chloride (Protonix Iv/NS) 100 ml @ 10 mls/hr Q10H IV Last administered on 03/16/16at 12:16; Admin Dose 10 MLS/HR; Start 03/14/16 at 10:30 Sucralfate 1 gm 1 gm QID NGT Last administered on 03/16/16at 20:28; Admin Dose 1 GM; Start 03/15/16 at 09:00 Midazolam HCl/ Dextrose (Versed/D5W) 50 ml @ 0 mls/hr TITRATE IV Last administered on 03/16/16at 16:43; Admin Dose 4 MLS/HR; Start 03/15/16 at 11:30 NURIA CARMONA MD Mar 16, 2016 20:41
[2016-03-17] VITALS (89 sets, daily range): BP systolic 52–230; BP diastolic 32–129; PULSE 49–109; RESP 0–31
[2016-03-17] MEDS: METOPROLOL 5 MG INJ IV PRN (00:21)
[2016-03-17] MEDS: hydrALAzine 20 MG INJ IV PRN (00:47)
[2016-03-17] MEDS ORDERED: ESMOLOL 250 ML IV SCH (02:00)
[2016-03-17] MEDS: METOCLOPRAMIDE 10 MG INJ IV SCH ×4 (02:01→18:54)
[2016-03-17] MEDS: MIDAZOLAM 50 MG in DEXTROSE 5% 40 ML IV SCH (02:08)
[2016-03-17] MEDS: ALBUTEROL HFA 8 GM INHALER INH SCH ×3 (02:11→19:58)
[2016-03-17 04:59] LABS: MAGNESIUM 2.4 mg/dl (1.7-2.5); PHOSPHORUS 9.8 mg/dl (2.5-4.9)
[2016-03-17 05:02] LABS: POTASSIUM 4.2 mmol/L (3.5-5.1)
[2016-03-17 05:05] LABS: CALCIUM 8.9 mg/dl (8.4-10.2)
[2016-03-17 05:31] LABS: CREATININE 4.5 mg/dl (0.61-1.24)
[2016-03-17 05:40] LABS: HEMATOCRIT 24.2 % (42.0-52.0); HEMOGLOBIN 8.1 g/dl (14.0-18.0); MEAN CORPUSCULAR HEMOGLOBIN 27.1 pg (29.0-33.0); MEAN CORPUSCULAR HGB CONC 33.5 g/dl (32.0-37.0); MEAN CORPUSCULAR VOLUME 80.7 fl (82.0-101.0); MEAN PLATELET VOLUME 8.3 fl (7.4-10.4); PLATELET COUNT 264 10^3/UL (140-440); RED CELL DISTRIBUTION WIDTH 17.3 % (11.5-14.5); UNCORRECTED WBC 24.5 10^3/ul (4.8-10.8); WHITE BLOOD COUNT 24.5 10^3/ul (4.8-10.8)
[2016-03-17] MEDS: DILTIAZEM 30 MG TAB PO SCH ×3 (06:00→21:36)
[2016-03-17] MEDS: METOPROLOL 100 MG TAB NGT SCH ×3 (06:00→21:35)
[2016-03-17] MEDS: FUROSEMIDE 20 MG INJ IV SCH ×2 (06:00→17:50)
[2016-03-17] MEDS ORDERED: SOD CHLORIDE 0.9% 500 ML IV ONE (06:15)
[2016-03-17] MEDS ORDERED: NORepinephrine 8MG/250 ML (PMX 250 ML ONE (06:22)
[2016-03-17 06:28] LABS: CONDITION 1; LH ANALYZER COMMENTS 1
[2016-03-17] MEDS: PANTOPRAZOLE IV 80 MG in SOD CHLORIDE 0.9% 100 ML IV SCH ×2 (06:54→17:48)
[2016-03-17] MEDS ORDERED: PHENYLephrine 20MG IN 250 ML 250 ML ONE (07:17)
[2016-03-17] MEDS ORDERED: DOPamine 1,600 MG in DEXTROSE 5% 210 ML IV SCH (07:30)
[2016-03-17] MEDS ORDERED: PHENYLephrine 160 MG in DEXTROSE 5% 484 ML IV SCH (07:30)
[2016-03-17] MEDS ORDERED: DOPamine-D5W 1.6 MG/ML 250 ML ONE (07:30)
[2016-03-17] MEDS ORDERED: PHENYLephrine 20MG IN 250 ML 250 ML IV SCH (07:30)
[2016-03-17] MEDS: INSULIN ASPART [NOVOLOG] 3 ML PEN SC SCH ×4 (07:32→17:49)
[2016-03-17] MEDS: CALCIUM CARBONATE 500 MG CHEW TAB PO SCH ×3 (07:35→17:35)
[2016-03-17 07:54] LABS: AADO2 Arterial 590.1 mmHg (7.0-24.0); Allen Test ACCEPTAB; Arterial Base Excess -13.4 mmol/L (-3.0-3); Arterial COHb 0 % (0.0-3.0); Arterial Fraction of Oxyhgb 79.8 % (93.0-99.0); Arterial MetHb 0.3 % (0.0-1.5); Arterial Total Hemglobin 9.2 g/dl (12.0-18.0); MODE VENT - PC
[2016-03-17] MEDS ORDERED: NA BICARBONATE 8.4% 50 ML SYG IV ONE (08:00)
[2016-03-17] MEDS: PIPER-TAZO 2.25 GM (PMX) 50 ML IVPB SCH ×3 (08:14→21:34)
[2016-03-17] MEDS ORDERED: SODIUM BICARBONATE IV SCH ×2 (08:30→08:34)
[2016-03-17] MEDS ORDERED: NACL IV SCH ×2 (08:30→08:34)
[2016-03-17] MEDS ORDERED: DEXTROSE IV SCH ×2 (08:30→08:34)
[2016-03-17] MEDS: AMLODIPINE 10 MG TAB PO SCH (09:00)
[2016-03-17] MEDS: MINOXIDIL 10 MG TAB NGT SCH ×2 (09:00→21:00)
[2016-03-17] MEDS ORDERED: SODIUM BICARBONATE (IV ADD) 100 MEQ in DEXTROSE 5% 1,000 ML IV SCH (09:00)
[2016-03-17 09:35] LABS: AADO2 Arterial 603.9 mmHg (7.0-24.0); Allen Test ACCEPTAB; Arterial Base Excess -8.8 mmol/L (-3.0-3); Arterial COHb 0.3 % (0.0-3.0); Arterial Fraction of Oxyhgb 88.9 % (93.0-99.0); Arterial HCO3 18.3 mmol/L (22.0-26.0); Arterial MetHb 0.1 % (0.0-1.5); Arterial Total Hemglobin 9.3 g/dl (12.0-18.0); MODE VENT - AC
[2016-03-17] MEDS: FERROUS SULFATE 60 MG/ML 5ML CUP GTB SCH ×2 (09:52→21:33)
[2016-03-17] MEDS: SUCRALFATE (100 MG/ML) 10ML CUP NGT SCH ×4 (09:52→21:33)
[2016-03-17] MEDS: FLUCONAZOLE 100 MG TAB PO SCH (09:52)
[2016-03-17] MEDS: SODIUM BICARBONATE IV SCH ×2 (10:16→20:07)
[2016-03-17] MEDS: DEXTROSE IV SCH ×2 (10:16→20:07)
[2016-03-17] MEDS: NACL IV SCH ×2 (10:16→20:07)
[2016-03-17 10:19] LABS: ANISOCYTOSIS 1+; EOSINOPHILS # 0.2 10^3/ul (0.0-0.5); LYMPHOCYTES # 0.7 10^3/ul (0.8-2.9); MYELOCYTES # 0.5; NEUTROPHIL # 17.6 10^3/ul (1.6-7.5)
--- NOTE | 2016-03-17 10:19 | CONS ---
Date/Time of Note Date/Time of Note DATE: 03/17/16 TIME: : Consult Date/Type/Reason Admit Date/Time Feb 18, 2016 at 09:14 Type of Consultation: pulmonary Ordering Provider: MOSES HARRIS MD Subjective Bradycardia this morning followed by PEA arrest Received 1 round of epinephrine short period of chest compressions with return of circulation Requiring multiple vasopressors to improve blood pressure and received intravenous bicarbonate to correct mix acidosis Placed back on AC mechanical ventilation volume control Remains unresponsive to painful stimuli no gag reflex Objective Vital Signs Date Time Temp Pulse Resp B/P Pulse Ox O2 Delivery O2 Flow Rate FiO2 03/17/16 08:30 102 24 132/59 91 Mechanical Ventilator 03/17/16 07:45 97.9 03/17/16 05:35 100 Intake and Output 03/16/16 03/16/16 03/17/16 15:00 23:00 07:00 Intake Total 943 ml 177 ml 226 ml Output Total 5100 ml 700 ml 300 ml Balance -4157 ml -523 ml -74 ml PHYSICAL EXAMINATION GENERAL: Well-nourished well-developed gentleman intubated on mechanical ventilation sedation VITAL SIGNS: see below. HEENT: Pupils equal, round, and reactive to light. CARDIAC: S1, S2, CHEST: Diminished air entry bilaterally. Few rales bilaterally ABDOMEN: Mildly distended. Obese soft nontender no guarding or rebound EXTREMITIES: No cyanosis, clubbing edema +2 NEUROLOGIC: Unable to assess Results/Medications Result Diagram: 03/17/16 0354 03/17/16 0354 Results 24 hrs Chest x-ray Slightly improved lung aeration Laboratory Tests Test 03/16/16 12:53 03/16/16 16:40 03/16/16 17:13 03/17/16 02:07 Bedside Glucose 137 128 136 Hematocrit 23.6 L Hemoglobin 7.9 L Test 03/17/16 03:54 03/17/16 07:00 03/17/16 07:24 Anion Gap 22 H Blood Morphology Comment Blood Urea Nitrogen 56 H Calcium Level 8.9 Carbon Dioxide Level 22 Chloride Level 93 L Creatinine 4.50 H Differential Comment MANUAL DIFF Glucose Level 130 Hematocrit 24.2 L Hemoglobin 8.1 L Magnesium Level 2.4 Mean Corpuscular Hemoglobin 27.1 L Mean Corpuscular Hemoglobin Concent 33.5 Mean Corpuscular Volume 80.7 L Mean Platelet Volume 8.3 Phosphorus Level 9.8 H Platelet Count 264 Potassium Level 4.2 Red Blood Count 3.00 L Red Cell Distribution Width 17.3 H Sodium Level 133 L White Blood Count 24.5 #H Arterial Blood HCO3 17.0 L Arterial Blood Base Excess -13.4 L Arterial Blood Oxygen Saturation 80.0 L Jovanny Test ACCEPTAB Arterial Blood Gas Puncture Site Right Radial Arterial Blood Carboxyhemoglobin 0 Arterial Blood Date Drawn 03/17/2016 7:30:00 AM Arterial Blood Methemoglobin 0.3 Arterial Blood pCO2 (Temp correct) 65.2 H Arterial Blood pH (Temp corrected) 7.035 *L Arterial Blood pO2 (Temp corrected) 57.7 L Blood Gas A-a O2 Differential 590.1 H Blood Gas Actual Respiration Rate 26 Blood Gas Critical Value Read Back L REREZ RN Blood Gas Inspiratory Pressure 48.0 Blood Gas Low PEEP Setting 8.0 Blood Gas Modality VENT - PC Blood Gas Notified Time 03/17/2016 7:53:00 AM Blood Gas Notified Whom DT Blood Gas Respiration Rate 26.0 Blood Gas Specimen Source Blood arterial Blood Gas Temperature 37.0 FiO2 100.0 Oxyhemoglobin Percent 79.8 L Total Hemoglobin 9.2 L Bedside Glucose 125 Medications Current Medications Ondansetron HCl (Zofran Inj) 4 mg Q6H PRN IV NAUSEA AND/OR VOMITING; Start 02/18/16 at 09:30 Acetaminophen (Tylenol Supp) 650 mg Q4H PRN [place] PAIN LEVEL 1-3 OR FEVER Last administered on 02/24/16at 14:32; Admin Dose 650 MG; Start 02/18/16 at 09:30 Morphine Sulfate (morphine) 2 mg Q4H PRN IV PAIN LEVEL 7-10 Last administered on 03/11/16at 16:13; Admin Dose 2 MG; Start 02/18/16 at 09:30 Bisacodyl (Dulcolax Supp) 10 mg DAILY PRN [place] CONSTIPATION; Start 02/18/16 at 09 :30 Metoprolol Tartrate (Lopressor) 5 mg Q4H PRN IV HR>55 Hold SBP<100 Last administered on 03/17/16t 00:21; Admin Dose 5 MG; Start 02/21/16 at 11:30 IV Flush (NS 10 ml) 10 ml PRN PRN IV IV PROTOCOL; Start 12/7/16 at 18:30 Ferrous Sulfate (Feosol Liquid Cup) 300 mg BID GTB Last administered on 09:52; Admin Dose 300 MG; Start 02/22/16 at 10:00 Lorazepam (Ativan) 1 mg Q1H PRN IV ANXIETY Last administered on 03/13/16at 14: 10; Admin Dose 1 MG; Start 02/23/16 at 11:30 Miscellaneous Information 1 ea NOTE XX ; Start 02/23/16 at 23:15 Glucose (Glutose) 22.5 gm Q15M PRN PO DECREASED GLUCOSE; Start 02/23/16 at 23: 15 Dextrose (D50w Syringe) 50 ml Q15M PRN IV DECREASED GLUCOSE; Start 02/23/16 at 23:15 Glucagon (Glucagen) 1 mg Q15M PRN IM DECREASED GLUCOSE; Start 02/23/16 at 23:15 Glucose (Glutose) 15 gm Q15M PRN BUCCAL DECREASED GLUCOSE; Start 02/23/16 at 23 :15 Metoclopramide HCl (Reglan) 10 mg Q6 IV Last administered on 03/17/16 08:14; Admin Dose 10 MG; Start 03/04/16 at 06:00 Acetaminophen (Tylenol Tab) 650 mg Q6H PRN NGT PAIN AND OR ELEVATED TEMP Last administered on 03/13/16at 14:33; Admin Dose 650 MG; Start 03/06/16 at 11:30 Glucose (Glutose) 15 gm Q15M PRN NGT DECREASED GLUCOSE; Start 03/06/16 at 08: 45 Hydralazine HCl (Apresoline) 100 mg Q8 NGT Last administered on 03/16/16at 22: 53; Admin Dose 100 MG; Start 03/06/16 at 14:00 Metoprolol Tartrate (Lopressor) 150 mg Q8 NGT Last administered on 03/16/16at 22:52; Admin Dose 150 MG; Start 03/06/16 at 14:00 Hydralazine HCl (Apresoline) 10 mg Q4H PRN IV ELEVATED SYSTOLIC BP Last administered on 03/17/16 00:47; Admin Dose 10 MG; Start 03/06/16 at 16:00 Amlodipine Besylate (Norvasc) 10 mg DAILY PO Last administered on 03/14/16at 09 :52; Admin Dose 10 MG; Start 03/09/16 at 17:00 Minoxidil (Loniten) 10 mg BID NGT Last administered on 03/16/16 20:28; Admin Dose 10 MG; Start 03/09/16 at 21:00 Insulin Aspart NOVOLOG *MODERATE* ALGORI... Q6 SC Last administered on 18:30; Admin Dose 2 UNIT; Start 03/10/16 at 06:00 Levetiracetam/ Dextrose (Keppra Iv/D5W) 115 ml @ 460 mls/hr Q12 IVPB Last administered on 03/16/16 20:28; Admin Dose 460 MLS/HR; Start 03/11/16 at 21: 00 Diltiazem HCl (Cardizem) 90 mg Q8 PO Last administered on 03/16/16 22:53; Admin Dose 90 MG; Start 03/12/16 at 14:00 Fluconazole 100 mg 100 mg DAILY PO Last administered on 03/17/16 09:52; Admin Dose 100 MG; Start 03/12/16 at 14:30 Piperacillin Sod/ Tazobactam Sod 50 ml @ 100 mls/hr Q8 IVPB Last administered on 03/17/16 08:14; Admin Dose 100 MLS/HR; Start 03/12/16 at 15:00 Fentanyl 1000 mcg/ Dextrose 100 ml @ 2.5 mls/hr TITRATE IV Last administered on 03/16/16 21:04; Admin Dose 5 MLS/HR; Start 03/13/16 at 18:00 Pantoprazole/ Sodium Chloride (Protonix Iv/NS) 100 ml @ 10 mls/hr Q10H IV Last administered on 03/17/16 06:54; Admin Dose 10 MLS/HR; Start 03/14/16 at 10 :30 Sucralfate 1 gm 1 gm QID NGT Last administered on 03/17/16 09:52; Admin Dose 1 GM; Start 03/15/16 at 09:00 Midazolam HCl 50 mg/Dextrose 50 ml @ 0 mls/hr TITRATE IV Last administered on 02:08; Admin Dose 7 MLS/HR; Start 03/15/16 at 11:30 Esmolol HCl/ Sodium Chloride 250 ml @ 0 mls/hr TITRATE IV Last administered on 03/17/16 03:34; Admin Dose 31.2 MLS/HR; Start 03/17/16 at 02:00 Phenylephrine HCl 160 mg/Dextrose 500 ml @ 18.75 mls/ hr TITRATE IV Last administered on 03/17/16 08:09; Admin Dose 9.37 MLS/HR; Start 03/17/16 at 07:30 Dopamine HCl 1600 mg/Dextrose 250 ml @ 1.99 mls/hr TITRATE IV Last administered on 03/17/16 08:39; Admin Dose 1.99 MLS/HR; Start 03/17/16 at 07:30 Sodium Bicarbonate/ Dextrose/Sodium Chloride (Na Bicarb/D5-NS) 1,000 ml @ 100 mls/hr Q10H IV Last administered on 03/17/16 10:16; Admin Dose 100 MLS/HR; Start 03/17/16 at 09:30 Assessment/Plan Chief Complaint/Hosp Course IMPRESSION 1. Status post Hypertensive Emergency 2. Type B Aortic Dissection. No evidence on proximal dissection on recent CT neck and chest, 3. Encephalopathy, possibly secondary to antihypertensive medications. 4. Aspiration pneumonia versus healthcare associated pneumonia requiring reintubation, chest x-ray suggestive of ARDS 5. Pulmonary embolus 6. Renal failure now requiring hemodialysis 7. Anemia evidence of GI bleed 8. Cardiopulmonary arrest possible anoxic brain injury RECS: 1. Vent support decrease FiO2 as tolerated. Patient will need tracheostomy when more stable. Continue volume control ventilation with improvement in respiratory acidosis 2. Blood pressure control decrease vasopressors as tolerated 3. Sedation vacation as tolerated. Continue pain control 4. Hold hemodialysis today correct with intravenous bicarbonate 5. Am CXR/ABG 6. Abx per ID 7. Hold anticoagulation secondary to GI bleed prognosis guarded Problems: ANAYA BREWSTER MD, [facility] Mar 17, 2016 10:19
[2016-03-17 10:20] LABS: HYPOCHROMASIA 1+; MICROCYTOSIS 1+
[2016-03-17] MEDS: LEVETIRACETAM IV 1,500 MG in DEXTROSE 5% 100 ML IVPB SCH ×2 (10:45→21:32)
[2016-03-17] MEDS ORDERED: NORepinephrine 8MG/250 ML (PMX 250 ML IV SCH (11:00)
--- NOTE | 2016-03-17 11:31 | CONS ---
Date/Time of Note Date/Time of Note DATE: 03/17/16 TIME: 11:26 Assessment/Plan Assessment/Plan Chief Complaint/Hosp Course Imp: 1.HTN emergency-NL EF by echo this admit-under reasonable control on PO medications only. Off all drips/heavily sedated with now low BP/HR 2.Aortic dissection-type B again demonstrated by Chest CT 02/29/16 3.abnl ecg-lateral TWI-negative troponin x 3 since admit 4.anxiety 5.ARF 6. Pericardial effusion by echo-small with NL EF 7.Encephalopathic 8.Pulmonary embolism 9.Tachycardia-S tach-only when on sedation vacation 10.CHF-diastolic acute 11.Resp [id number] 12.Seizures-on keppra 13. Acute on chronic renal failure 14.GIB/anemia 15/ s/p PES arrest requiring ACLS protocol after having htn and then reciving esmolol with subsequent bradycardia and PEA Recc: -Tele in ICU -HD today -Wean vent as tolerated -serial ecg's -Holding all antihypertensives while patient is on multiple pressors -ongoing surgical follow-up -f/u MS closely -Continue keppra for seizures -pnding EEG Problems: Consultation Date/Type/Reason Admit Date/Time Feb 18, 2016 at 09:14 Initial Consult Date 02/19/2016 Type of Consultation: Cardiology Reason for Consultation HTN/aortic dissection Referring Provider: MOSES HARRIS MD Exam/Review of Systems Vital Signs Vitals Vital Signs Date Time Temp Pulse Resp B/P Pulse Ox O2 Delivery O2 Flow Rate FiO2 03/17/16 10:15 85 26 135/65 92 Mechanical Ventilator 03/17/16 07:45 97.9 03/17/16 05:35 100 Intake and Output 03/16/16 03/16/16 03/17/16 15:00 23:00 07:00 Intake Total 943 ml 177 ml 226 ml Output Total 5100 ml 700 ml 300 ml Balance -4157 ml -523 ml -74 ml Exam Review of Systems: CONSTITUTIONAL: No fevers, chills. PULMONARY: intubated CARDIOVASCULAR: No chest pain/palpitations GASTROINTESTINAL: No nausea/vomiting. GENITOURINARY: No hematuria/dysuria. MUSCULOSKELETAL: No myagias/arthalgias. PSYCHIATRIC: The patient denies depression. NEUROLOGIC: Encephalopathic Constitutional: other (encephalopathic) Psych: no complaints Head: normocephalic ENMT: intubated, mucosa pink and moist Neck: jvd (9 cm water), supple Respiratory: diminished breath sounds Cardiovascular: regular rate and rhythm Gastrointestinal: non-tender, soft Extremities: pitting pedal edema (bilateral) Neurological: unresponsive Results Result Diagram: 03/17/16 0354 03/17/16 0354 Results 24 hrs Laboratory Tests Test 03/16/16 12:53 03/16/16 16:40 03/16/16 17:13 03/17/16 02:07 Bedside Glucose 137 128 136 Hematocrit 23.6 L Hemoglobin 7.9 L Test 03/17/16 03:54 03/17/16 07:00 03/17/16 07:24 Anion Gap 22 H Anisocytosis 1+ Band Neutrophils % 10.0 H Blood Morphology Comment Blood Urea Nitrogen 56 H Calcium Level 8.9 Carbon Dioxide Level 22 Chloride Level 93 L Creatinine 4.50 H Differential Comment MANUAL DIFF Eosinophils # 0.2 Eosinophils % 1.0 Glucose Level 130 Hematocrit 24.2 L Hemoglobin 8.1 L Hypochromasia 1+ Lymphocytes # 0.7 L Lymphocytes % 3.0 L Magnesium Level 2.4 Mean Corpuscular Hemoglobin 27.1 L Mean Corpuscular Hemoglobin Concent 33.5 Mean Corpuscular Volume 80.7 L Mean Platelet Volume 8.3 Metamyelocytes # 0.7 Metamyelocytes % 3.0 H Microcytosis 1+ Monocytes # 2.0 H Monocytes % 8.0 Myelocytes # 0.5 Myelocytes % 2.0 H Neutrophils # 17.6 H Neutrophils % 72.0 Nucleated Red Blood Cells % 1.0 H Phosphorus Level 9.8 H Platelet Count 264 Potassium Level 4.2 Promyelocytes # 0.2 Promyelocytes % 1.0 H Red Blood Count 3.00 L Red Cell Distribution Width 17.3 H Sodium Level 133 L White Blood Count 24.5 #H Arterial Blood HCO3 17.0 L Arterial Blood Base Excess -13.4 L Arterial Blood Oxygen Saturation 80.0 L Jovanny Test ACCEPTAB Arterial Blood Gas Puncture Site Right Radial Arterial Blood Carboxyhemoglobin 0 Arterial Blood Date Drawn 03/17/2016 7:30:00 AM Arterial Blood Methemoglobin 0.3 Arterial Blood pCO2 (Temp correct) 65.2 H Arterial Blood pH (Temp corrected) 7.035 *L Arterial Blood pO2 (Temp corrected) 57.7 L Blood Gas A-a O2 Differential 590.1 H Blood Gas Actual Respiration Rate 26 Blood Gas Critical Value Read Back L LEE RN Blood Gas Inspiratory Pressure 48.0 Blood Gas Low PEEP Setting 8.0 Blood Gas Modality VENT - PC Blood Gas Notified Time 03/17/2016 7:53:00 AM Blood Gas Notified Whom DT Blood Gas Respiration Rate 26.0 Blood Gas Specimen Source Blood arterial Blood Gas Temperature 37.0 FiO2 100.0 Oxyhemoglobin Percent 79.8 L Total Hemoglobin 9.2 L Bedside Glucose 125 Medications Medications Current Medications Ondansetron HCl (Zofran Inj) 4 mg Q6H PRN IV NAUSEA AND/OR VOMITING; Start 02/18/16 at 09:30 Acetaminophen (Tylenol Supp) 650 mg Q4H PRN [place] PAIN LEVEL 1-3 OR FEVER Last administered on 02/24/16at 14:32; Admin Dose 650 MG; Start 02/18/16 at 09:30 Morphine Sulfate (morphine) 2 mg Q4H PRN IV PAIN LEVEL 7-10 Last administered on 03/11/16at 16:13; Admin Dose 2 MG; Start 02/18/16 at 09:30 Bisacodyl (Dulcolax Supp) 10 mg DAILY PRN [place] CONSTIPATION; Start 02/18/16 at 09 :30 Metoprolol Tartrate (Lopressor) 5 mg Q4H PRN IV HR>55 Hold SBP<100 Last administered on 03/17/16 00:21; Admin Dose 5 MG; Start 02/21/16 at 11:30 IV Flush (NS 10 ml) 10 ml PRN PRN IV IV PROTOCOL; Start 02/21/16 at 18:30 Ferrous Sulfate (Feosol Liquid Cup) 300 mg BID GTB Last administered on 09:52; Admin Dose 300 MG; Start 02/22/16 at 10:00 Lorazepam (Ativan) 1 mg Q1H PRN IV ANXIETY Last administered on 03/13/16 14: 10; Admin Dose 1 MG; Start 02/23/16 at 11:30 Miscellaneous Information 1 ea NOTE XX ; Start 02/23/16 at 23:15 Glucose (Glutose) 22.5 gm Q15M PRN PO DECREASED GLUCOSE; Start 02/23/16 at 23: 15 Dextrose (D50w Syringe) 50 ml Q15M PRN IV DECREASED GLUCOSE; Start 02/23/16 at 23:15 Glucagon (Glucagen) 1 mg Q15M PRN IM DECREASED GLUCOSE; Start 02/23/16 at 23:15 Glucose (Glutose) 15 gm Q15M PRN BUCCAL DECREASED GLUCOSE; Start 02/23/16 at 23 :15 Metoclopramide HCl (Reglan) 10 mg Q6 IV Last administered on 03/17/16 08:14; Admin Dose 10 MG; Start 03/04/16 at 06:00 Acetaminophen (Tylenol Tab) 650 mg Q6H PRN NGT PAIN AND OR ELEVATED TEMP Last administered on 03/13/16 14:33; Admin Dose 650 MG; Start 03/06/16 at 11:30 Glucose (Glutose) 15 gm Q15M PRN NGT DECREASED GLUCOSE; Start 03/06/16 at 08: 45 Hydralazine HCl (Apresoline) 100 mg Q8 NGT Last administered on 03/16/16at 22: 53; Admin Dose 100 MG; Start 03/06/16 at 14:00 Metoprolol Tartrate (Lopressor) 150 mg Q8 NGT Last administered on 03/16/16at 22:52; Admin Dose 150 MG; Start 03/06/16 at 14:00 Hydralazine HCl (Apresoline) 10 mg Q4H PRN IV ELEVATED SYSTOLIC BP Last administered on 03/17/16 00:47; Admin Dose 10 MG; Start 03/06/16 at 16:00 Amlodipine Besylate (Norvasc) 10 mg DAILY PO Last administered on 03/14/16at 09 :52; Admin Dose 10 MG; Start 03/09/16 at 17:00 Minoxidil (Loniten) 10 mg BID NGT Last administered on 03/16/16at 20:28; Admin Dose 10 MG; Start 03/09/16 at 21:00 Insulin Aspart NOVOLOG *MODERATE* ALGORI... Q6 SC Last administered on 18:30; Admin Dose 2 UNIT; Start 03/10/16 at 06:00 Levetiracetam/ Dextrose (Keppra Iv/D5W) 115 ml @ 460 mls/hr Q12 IVPB Last administered on 03/17/16 10:45; Admin Dose 460 MLS/HR; Start 03/11/16 at 21:00 Diltiazem HCl (Cardizem) 90 mg Q8 PO Last administered on 03/16/16at 22:53; Admin Dose 90 MG; Start 03/12/16 at 14:00 Fluconazole 100 mg 100 mg DAILY PO Last administered on 03/17/16 09:52; Admin Dose 100 MG; Start 03/12/16 at 14:30 Piperacillin Sod/ Tazobactam Sod 50 ml @ 100 mls/hr Q8 IVPB Last administered on 03/17/16 08:14; Admin Dose 100 MLS/HR; Start 03/12/16 at 15:00 Fentanyl 1000 mcg/ Dextrose 100 ml @ 2.5 mls/hr TITRATE IV Last administered on 03/16/16at 21:04; Admin Dose 5 MLS/HR; Start 03/13/16 at 18:00 Pantoprazole/ Sodium Chloride (Protonix Iv/NS) 100 ml @ 10 mls/hr Q10H IV Last administered on 03/17/16 06:54; Admin Dose 10 MLS/HR; Start 03/14/16 at 10 :30 Sucralfate 1 gm 1 gm QID NGT Last administered on 03/17/16 09:52; Admin Dose 1 GM; Start 03/15/16 at 09:00 Midazolam HCl 50 mg/Dextrose 50 ml @ 0 mls/hr TITRATE IV Last administered on 02:08; Admin Dose 7 MLS/HR; Start 03/15/16 at 11:30 Esmolol HCl/ Sodium Chloride 250 ml @ 0 mls/hr TITRATE IV Last administered on 03/17/16 03:34; Admin Dose 31.2 MLS/HR; Start 03/17/16 at 02:00 Phenylephrine HCl 160 mg/Dextrose 500 ml @ 18.75 mls/ hr TITRATE IV Last administered on 03/17/16 08:09; Admin Dose 9.37 MLS/HR; Start 03/17/16 at 07:30 Dopamine HCl 1600 mg/Dextrose 250 ml @ 1.99 mls/hr TITRATE IV Last administered on 03/17/16 08:39; Admin Dose 1.99 MLS/HR; Start 03/17/16 at 07:30 Sodium Bicarbonate 150 meq/Dextrose/ Sodium Chloride 1,000 ml @ 100 mls/hr Q10H IV Last administered on 03/17/16 10:16; Admin Dose 100 MLS/HR; Start at 09:30 Norepinephrine (Levophed) 250 ml @ 1.875 mls/ hr TITRATE IV Last administered on 03/17/16 11:04; Admin Dose 3.75 MLS/HR; Start 03/17/16 at 11:00 JUNAID PAZ Mar 17, 2016 11:30
--- NOTE | 2016-03-17 12:33 | CONS ---
Date/Time of Note Date/Time of Note DATE: 03/17/16 TIME: 12:29 Assessment/Plan Assessment/Plan Chief Complaint/Hosp Course ID PROGRESS NOTE TOTAL ABX DAY # => Vanco IV, Zosyn, Diflucan 24H INTERVAL SUMMARY * 45 yo obese M, vented, noncommunicative == Chart reviewed: Type B aortic dissection * Today's events: s/p PES arrest requiring ACLS protocol after having HTN and then receiving esmolol with subsequent bradycardia and PEA * Orally intubated, non-communicative, chart reviewed * CXR: slightly improved w/bilateral lung opacities, infiltrates PHYSICAL EXAMINATION: GENERAL: 45 yo overweight M, VSS, NAD, Vented HEENT: ETT-> Secure to Vent NECK: Supple, trachea midline. CHEST: Rise symmetrical. Scattered coarse BS HEART: NSR on tele ABDOMEN: Soft EXTREMITIES: Without cyanosis. Bilateral trace edema. ID ASSESSMENT: 1. Severe sepsis due to PNA w/persistent leukocytosis * 02/19/16 BCx(+) Staph-CoNS 1/2 bottles on admission => consistent w/skin contaminant * Repeat BCx (-) 2. Acute respiratory failure. 3. Aspiration PNA => Sputum culture grew E. coli, Angelina albicans. 4. Congestive heart failure exacerbation. 5. New onset of seizures. 6. HTN urgency associated with Type B aortic dissection. 7. Acute renal failure=> HD catheter 8. Anemia. 9. Pulmonary emboli 10. s/p 03/17/16 PES arrest requiring ACLS protocol after having htn and then receiving esmolol with subsequent bradycardia and PEA INVASIVES: ETT, HD access, NG tube, Smalls, PICC line. CURRENT ABX: 1. Zosyn. 2. Fluconazole. 3. Vancomycin IV s/p Ceftriaxone ID RECOMMENDATIONS: CONTINUE Current ABX, Continue supportive care, await clinical improvement * Case d/w Dr. Mccabe = renal note recommends avoid nephrotoxic ABX; Dr. Mccabe recommending continue Vanco IV + Zosyn * Poor prognosis -- per notes . Problems: Consultation Date/Type/Reason Admit Date/Time Feb 18, 2016 at 09:14 Type of Consultation: ID Referring Provider: MOSES HARRIS MD Exam/Review of Systems Vital Signs Vitals Vital Signs Date Time Temp Pulse Resp B/P Pulse Ox O2 Delivery O2 Flow Rate FiO2 03/17/16 10:15 85 26 135/65 92 Mechanical Ventilator 03/17/16 10:00 100 03/17/16 07:45 97.9 Intake and Output 03/16/16 03/16/16 03/17/16 15:00 23:00 07:00 Intake Total 943 ml 177 ml 226 ml Output Total 5100 ml 700 ml 300 ml Balance -4157 ml -523 ml -74 ml Results Result Diagram: 03/17/16 0354 03/17/16 0354 Results 24 hrs Laboratory Tests Test 03/16/16 12:53 03/16/16 16:40 03/16/16 17:13 03/17/16 02:07 Bedside Glucose 137 128 136 Hematocrit 23.6 L Hemoglobin 7.9 L Test 03/17/16 03:54 03/17/16 07:00 03/17/16 07:24 03/17/16 12:00 Anion Gap 22 H Anisocytosis 1+ Band Neutrophils % 10.0 H Blood Morphology Comment Blood Urea Nitrogen 56 H Calcium Level 8.9 Carbon Dioxide Level 22 Chloride Level 93 L Creatinine 4.50 H Differential Comment MANUAL DIFF Eosinophils # 0.2 Eosinophils % 1.0 Glucose Level 130 Hematocrit 24.2 L Hemoglobin 8.1 L Hypochromasia 1+ Lymphocytes # 0.7 L Lymphocytes % 3.0 L Magnesium Level 2.4 Mean Corpuscular Hemoglobin 27.1 L Mean Corpuscular Hemoglobin Concent 33.5 Mean Corpuscular Volume 80.7 L Mean Platelet Volume 8.3 Metamyelocytes # 0.7 Metamyelocytes % 3.0 H Microcytosis 1+ Monocytes # 2.0 H Monocytes % 8.0 Myelocytes # 0.5 Myelocytes % 2.0 H Neutrophils # 17.6 H Neutrophils % 72.0 Nucleated Red Blood Cells % 1.0 H Phosphorus Level 9.8 H Platelet Count 264 Potassium Level 4.2 Promyelocytes # 0.2 Promyelocytes % 1.0 H Red Blood Count 3.00 L Red Cell Distribution Width 17.3 H Sodium Level 133 L White Blood Count 24.5 #H Arterial Blood HCO3 17.0 L 18.3 L Arterial Blood Base Excess -13.4 L -8.8 L Arterial Blood Oxygen Saturation 80.0 L 89.3 L Jovanny Test ACCEPTAB ACCEPTAB Arterial Blood Gas Puncture Site Right Radial Right Radial Arterial Blood Carboxyhemoglobin 0 0.3 Arterial Blood Date Drawn 03/17/2016 7:30:00 AM 03/17/2016 9:20:00 AM Arterial Blood Methemoglobin 0.3 0.1 Arterial Blood pCO2 (Temp correct) 65.2 H 45.2 H Arterial Blood pH (Temp corrected) 7.035 *L 7.226 *L Arterial Blood pO2 (Temp corrected) 57.7 L 63.9 L Blood Gas A-a O2 Differential 590.1 H 603.9 H Blood Gas Actual Respiration Rate 26 30 Blood Gas Critical Value Read Back L LEE RN E KANDI RN Blood Gas Inspiratory Pressure 48.0 Blood Gas Low PEEP Setting 8.0 10.0 Blood Gas Modality VENT - PC VENT - AC Blood Gas Notified Time 03/17/2016 7:53:00 AM 03/17/2016 9:34:00 AM Blood Gas Notified Whom DT R JULIETA Blood Gas Respiration Rate 26.0 30.0 Blood Gas Specimen Source Blood arterial Blood arterial Blood Gas Temperature 37.0 37.0 FiO2 100.0 100.0 Oxyhemoglobin Percent 79.8 L 88.9 L Total Hemoglobin 9.2 L 9.3 L Bedside Glucose 125 Blood Gas Tidal Volume 550.0 Medications Medications Current Medications Ondansetron HCl (Zofran Inj) 4 mg Q6H PRN IV NAUSEA AND/OR VOMITING; Start 02/18/16 at 09:30 Acetaminophen (Tylenol Supp) 650 mg Q4H PRN [place] PAIN LEVEL 1-3 OR FEVER Last administered on 02/24/16at 14:32; Admin Dose 650 MG; Start 02/18/16 at 09:30 Morphine Sulfate (morphine) 2 mg Q4H PRN IV PAIN LEVEL 7-10 Last administered on 03/11/16at 16:13; Admin Dose 2 MG; Start 02/18/16 at 09:30 Bisacodyl (Dulcolax Supp) 10 mg DAILY PRN [place] CONSTIPATION; Start 02/18/16 at 09 :30 Metoprolol Tartrate (Lopressor) 5 mg Q4H PRN IV HR>55 Hold SBP<100 Last administered on 03/17/16t 00:21; Admin Dose 5 MG; Start 02/21/16 at 11:30 IV Flush (NS 10 ml) 10 ml PRN PRN IV IV PROTOCOL; Start 02/21/16 at 18:30 Ferrous Sulfate (Feosol Liquid Cup) 300 mg BID GTB Last administered on 09:52; Admin Dose 300 MG; Start 02/22/16 at 10:00 Lorazepam (Ativan) 1 mg Q1H PRN IV ANXIETY Last administered on 03/13/16at 14: 10; Admin Dose 1 MG; Start 02/23/16 at 11:30 Miscellaneous Information 1 ea NOTE XX ; Start 02/23/16 at 23:15 Glucose (Glutose) 22.5 gm Q15M PRN PO DECREASED GLUCOSE; Start 02/23/16 at 23: 15 Dextrose (D50w Syringe) 50 ml Q15M PRN IV DECREASED GLUCOSE; Start 02/23/16 at 23:15 Glucagon (Glucagen) 1 mg Q15M PRN IM DECREASED GLUCOSE; Start 02/23/16 at 23:15 Glucose (Glutose) 15 gm Q15M PRN BUCCAL DECREASED GLUCOSE; Start 02/23/16 at 23 :15 Metoclopramide HCl (Reglan) 10 mg Q6 IV Last administered on 03/17/16 08:14; Admin Dose 10 MG; Start 03/04/16 at 06:00 Acetaminophen (Tylenol Tab) 650 mg Q6H PRN NGT PAIN AND OR ELEVATED TEMP Last administered on 03/13/16at 14:33; Admin Dose 650 MG; Start 03/06/16 at 11:30 Glucose (Glutose) 15 gm Q15M PRN NGT DECREASED GLUCOSE; Start 03/06/16 at 08: 45 Hydralazine HCl (Apresoline) 100 mg Q8 NGT Last administered on 03/16/16at 22: 53; Admin Dose 100 MG; Start 03/06/16 at 14:00 Metoprolol Tartrate (Lopressor) 150 mg Q8 NGT Last administered on 03/16/16at 22:52; Admin Dose 150 MG; Start 03/06/16 at 14:00 Hydralazine HCl (Apresoline) 10 mg Q4H PRN IV ELEVATED SYSTOLIC BP Last administered on 03/17/16 00:47; Admin Dose 10 MG; Start 03/06/16 at 16:00 Amlodipine Besylate (Norvasc) 10 mg DAILY PO Last administered on 03/14/16at 09 :52; Admin Dose 10 MG; Start 03/09/16 at 17:00 Minoxidil (Loniten) 10 mg BID NGT Last administered on 03/16/16at 20:28; Admin Dose 10 MG; Start 03/09/16 at 21:00 Insulin Aspart NOVOLOG *MODERATE* ALGORI... Q6 SC Last administered on 18:30; Admin Dose 2 UNIT; Start 03/10/16 at 06:00 Levetiracetam/ Dextrose (Keppra Iv/D5W) 115 ml @ 460 mls/hr Q12 IVPB Last administered on 03/17/16 10:45; Admin Dose 460 MLS/HR; Start 03/11/16 at 21:00 Diltiazem HCl (Cardizem) 90 mg Q8 PO Last administered on 03/16/16at 22:53; Admin Dose 90 MG; Start 03/12/16 at 14:00 Fluconazole 100 mg 100 mg DAILY PO Last administered on 03/17/16 09:52; Admin Dose 100 MG; Start 03/12/16 at 14:30 Piperacillin Sod/ Tazobactam Sod 50 ml @ 100 mls/hr Q8 IVPB Last administered on 03/17/16 08:14; Admin Dose 100 MLS/HR; Start 03/12/16 at 15:00 Fentanyl 1000 mcg/ Dextrose 100 ml @ 2.5 mls/hr TITRATE IV Last administered on 03/16/16at 21:04; Admin Dose 5 MLS/HR; Start 03/13/16 at 18:00 Pantoprazole/ Sodium Chloride (Protonix Iv/NS) 100 ml @ 10 mls/hr Q10H IV Last administered on 03/17/16 06:54; Admin Dose 10 MLS/HR; Start 03/14/16 at 10 :30 Sucralfate 1 gm 1 gm QID NGT Last administered on 03/17/16 09:52; Admin Dose 1 GM; Start 03/15/16 at 09:00 Midazolam HCl 50 mg/Dextrose 50 ml @ 0 mls/hr TITRATE IV Last administered on 02:08; Admin Dose 7 MLS/HR; Start 03/15/16 at 11:30 Esmolol HCl/ Sodium Chloride 250 ml @ 0 mls/hr TITRATE IV Last administered on 03/17/16 03:34; Admin Dose 31.2 MLS/HR; Start 03/17/16 at 02:00 Phenylephrine HCl 160 mg/Dextrose 500 ml @ 18.75 mls/ hr TITRATE IV Last administered on 03/17/16 08:09; Admin Dose 9.37 MLS/HR; Start 03/17/16 at 07:30 Dopamine HCl 1600 mg/Dextrose 250 ml @ 1.99 mls/hr TITRATE IV Last administered on 03/17/16 08:39; Admin Dose 1.99 MLS/HR; Start 03/17/16 at 07:30 Sodium Bicarbonate 150 meq/Dextrose/ Sodium Chloride 1,000 ml @ 100 mls/hr Q10H IV Last administered on 03/17/16 10:16; Admin Dose 100 MLS/HR; Start at 09:30 Norepinephrine (Levophed) 250 ml @ 1.875 mls/ hr TITRATE IV Last administered on 03/17/16 11:04; Admin Dose 3.75 MLS/HR; Start 03/17/16 at 11:00 LD YBARRA NP Mar 17, 2016 12:33
--- NOTE | 2016-03-17 12:46 | PN ---
Date/Time of Note Date/Time of Note DATE: 03/17/16 TIME: 12:45 Assessment/Plan VTE Prophylaxis VTE Prophylaxis Intervention: SCD's Lines/Catheters IV Catheter Type (from Nrs): Michael cath Central line still needed: Yes Urinary Cath still in place: Yes Reason Cath still needed: terminal illness/intractable pain Assessment/Plan Chief Complaint/Hosp Course 1. Type B aortic dissection. Continue blood pressure control. Continue ICU monitoring. Status post evaluation by vascular surgery. No surgical intervention as of now. 2. Accelerated hypertension. Currently hypotensive. On vasopressors for blood pressure control. Labile blood pressures. 3. Acute hypoxic respiratory failure. Etiology unclear. Most probably secondary to aspiration. Continue ventilator support as per pulmonary. The patient was extubated and then re-intubated. 4. Aspiration pneumonia. Continue antibiotics as per infectious diseases. 5. Acute kidney injury, most probably secondary to hemodynamics. Nephrology following. Use nephrotoxic drugs with caution. The patient was newly started on hemodialysis on 03/15/2016. 6. Left cephalic vein thrombosis. Was on therapeutic anticoagulation. This was put on hold because of worsening H&H. 7. Pulmonary embolism (02/29/2016). Was on therapeutic anticoagulation with heparin gtt. This was put on hold because of worsening H&H. 8. Microcytic hypochromic anemia. Iron panel showing iron deficiency. Continue iron supplements. Will transfuse as needed. 9. Acute encephalopathy, most probably metabolic in origin. Electroencephalography showing background slowing suggesting bihemispheric subcortical dysfunction, possibly epileptiform activity. The patient is on anticonvulsants. Was evaluated by Neurology. 10. Hyperdynamic left ventricular systolic function. Cardiology following. 11. GI bleeding. Heparin drip on hold. On Protonix drip. The patient being followed by gastroenterology. 12. Severe combined metabolic and respiratory acidosis. The patient was started on bicarbonate drip. 13. Fluids, electrolytes, and nutrition. IV fluids as per nephrology. Hold NG tube feedings. 14. Deep venous thrombosis prophylaxis. Bilateral SCDs. 15. Gastrointestinal prophylaxis. Proton pump inhibitors. PLAN: Continue intensive care unit monitoring. Poor prognosis. The patient remains on multiple pressors. Patient's fianc Garrison martinez was informed about the poor prognosis. Bhakti Martinez and Julietakim Zepeda, the patient's mother in [place] wants to continue the patient to be a full code. Case discussed with Dr. Mosher. On 03/14/2016, had a conference with the patient's fianc Garrison Martinez in the room, the patient's mother (Julieta Zepeda) from [place] on the phone and the patient's sister on the phone. The plan of care was explained to the patient's family. Patient's poor prognosis was explained. The patient's family wanted to do everything possible to keep the patient alive. The conference was done in the presence of vp [employer] social media and crm. Critical care time: 45 minutes. Problems: Subjective 24 Hr Interval Summary Free Text/Dictation Was started on esmolol drip last night because of high blood pressure. However , the patient's blood pressure dropped down suddenly and he lost his pulse. Hence a CODE BLUE was called and the patient was given 1 dose of epinephrine with return of spontaneous circulation. The patient currently remains on multiple vasopressors to support blood pressure. Exam/Review of Systems Vital Signs Vitals Vital Signs Date Time Temp Pulse Resp B/P Pulse Ox O2 Delivery O2 Flow Rate FiO2 03/17/16 10:15 85 26 135/65 92 Mechanical Ventilator 03/17/16 10:00 100 03/17/16 07:45 97.9 Intake and Output 03/16/16 03/16/16 03/17/16 15:00 23:00 07:00 Intake Total 943 ml 177 ml 226 ml Output Total 5100 ml 700 ml 300 ml Balance -4157 ml -523 ml -74 ml Exam GENERAL: Obese male lying bed. Orally intubated. HEENT: Head normocephalic and atraumatic. Eyes: Anicteric sclerae. Conjunctivae clear. ENT: Nasal septum is midline. Oral mucosa is dry. Pupils are fixed and dilated. NECK: Short and obese. Unable to visualize any neck veins. CARDIAC: Regular rate and rhythm. S1 and S2 heard. ABDOMEN: Protruded. Soft. Bowel sounds hypoactive in all 4 quadrants. GENITOURINARY: The patient has a Smalls catheter in place. EXTREMITIES: No cyanosis, no clubbing. Edema of bilateral lower extremities and bilateral upper extremities. Right upper extremity PICC line in place. Peripheral pulses palpable. NEUROLOGIC: No spontaneous movement. No gag reflex. Pupils fixed and dilated. Results Result Diagram: 03/17/16 0354 03/17/16 0354 Results 24 hrs Laboratory Tests Test 03/16/16 12:53 03/16/16 16:40 03/16/16 17:13 03/17/16 02:07 Bedside Glucose 137 128 136 Hematocrit 23.6 L Hemoglobin 7.9 L Test 03/17/16 03:54 03/17/16 07:00 03/17/16 07:24 03/17/16 12:00 Anion Gap 22 H Anisocytosis 1+ Band Neutrophils % 10.0 H Blood Morphology Comment Blood Urea Nitrogen 56 H Calcium Level 8.9 Carbon Dioxide Level 22 Chloride Level 93 L Creatinine 4.50 H Differential Comment MANUAL DIFF Eosinophils # 0.2 Eosinophils % 1.0 Glucose Level 130 Hematocrit 24.2 L Hemoglobin 8.1 L Hypochromasia 1+ Lymphocytes # 0.7 L Lymphocytes % 3.0 L Magnesium Level 2.4 Mean Corpuscular Hemoglobin 27.1 L Mean Corpuscular Hemoglobin Concent 33.5 Mean Corpuscular Volume 80.7 L Mean Platelet Volume 8.3 Metamyelocytes # 0.7 Metamyelocytes % 3.0 H Microcytosis 1+ Monocytes # 2.0 H Monocytes % 8.0 Myelocytes # 0.5 Myelocytes % 2.0 H Neutrophils # 17.6 H Neutrophils % 72.0 Nucleated Red Blood Cells % 1.0 H Phosphorus Level 9.8 H Platelet Count 264 Potassium Level 4.2 Promyelocytes # 0.2 Promyelocytes % 1.0 H Red Blood Count 3.00 L Red Cell Distribution Width 17.3 H Sodium Level 133 L White Blood Count 24.5 #H Arterial Blood HCO3 17.0 L 18.3 L Arterial Blood Base Excess -13.4 L -8.8 L Arterial Blood Oxygen Saturation 80.0 L 89.3 L Jovanny Test ACCEPTAB ACCEPTAB Arterial Blood Gas Puncture Site Right Radial Right Radial Arterial Blood Carboxyhemoglobin 0 0.3 Arterial Blood Date Drawn 03/17/2016 7:30:00 AM 03/17/2016 9:20:00 AM Arterial Blood Methemoglobin 0.3 0.1 Arterial Blood pCO2 (Temp correct) 65.2 H 45.2 H Arterial Blood pH (Temp corrected) 7.035 *L 7.226 *L Arterial Blood pO2 (Temp corrected) 57.7 L 63.9 L Blood Gas A-a O2 Differential 590.1 H 603.9 H Blood Gas Actual Respiration Rate 26 30 Blood Gas Critical Value Read Back L REREZ RN E KANDI RN Blood Gas Inspiratory Pressure 48.0 Blood Gas Low PEEP Setting 8.0 10.0 Blood Gas Modality VENT - PC VENT - AC Blood Gas Notified Time 03/17/2016 7:53:00 AM 03/17/2016 9:34:00 AM Blood Gas Notified Whom DT R JULIETA Blood Gas Respiration Rate 26.0 30.0 Blood Gas Specimen Source Blood arterial Blood arterial Blood Gas Temperature 37.0 37.0 FiO2 100.0 100.0 Oxyhemoglobin Percent 79.8 L 88.9 L Total Hemoglobin 9.2 L 9.3 L Bedside Glucose 125 Blood Gas Tidal Volume 550.0 Medications Medications Current Medications Ondansetron HCl (Zofran Inj) 4 mg Q6H PRN IV NAUSEA AND/OR VOMITING; Start 02/18/16 at 09:30 Acetaminophen (Tylenol Supp) 650 mg Q4H PRN [place] PAIN LEVEL 1-3 OR FEVER Last administered on 02/24/16at 14:32; Admin Dose 650 MG; Start 02/18/16 at 09:30 Morphine Sulfate (morphine) 2 mg Q4H PRN IV PAIN LEVEL 7-10 Last administered on 03/11/16at 16:13; Admin Dose 2 MG; Start 02/18/16 at 09:30 Bisacodyl (Dulcolax Supp) 10 mg DAILY PRN [place] CONSTIPATION; Start 02/18/16 at 09 :30 Metoprolol Tartrate (Lopressor) 5 mg Q4H PRN IV HR>55 Hold SBP<100 Last administered on 03/17/16 00:21; Admin Dose 5 MG; Start 02/21/16 at 11:30 IV Flush (NS 10 ml) 10 ml PRN PRN IV IV PROTOCOL; Start 02/21/16 at 18:30 Ferrous Sulfate (Feosol Liquid Cup) 300 mg BID GTB Last administered on 09:52; Admin Dose 300 MG; Start 02/22/16 at 10:00 Lorazepam (Ativan) 1 mg Q1H PRN IV ANXIETY Last administered on 03/13/16 14: 10; Admin Dose 1 MG; Start 02/23/16 at 11:30 Miscellaneous Information 1 ea NOTE XX ; Start 02/23/16 at 23:15 Glucose (Glutose) 22.5 gm Q15M PRN PO DECREASED GLUCOSE; Start 02/23/16 at 23: 15 Dextrose (D50w Syringe) 50 ml Q15M PRN IV DECREASED GLUCOSE; Start 02/23/16 at 23:15 Glucagon (Glucagen) 1 mg Q15M PRN IM DECREASED GLUCOSE; Start 02/23/16 at 23:15 Glucose (Glutose) 15 gm Q15M PRN BUCCAL DECREASED GLUCOSE; Start 02/23/16 at 23 :15 Metoclopramide HCl (Reglan) 10 mg Q6 IV Last administered on 03/17/16 08:14; Admin Dose 10 MG; Start 03/04/16 at 06:00 Acetaminophen (Tylenol Tab) 650 mg Q6H PRN NGT PAIN AND OR ELEVATED TEMP Last administered on 03/13/16at 14:33; Admin Dose 650 MG; Start 03/06/16 at 11:30 Glucose (Glutose) 15 gm Q15M PRN NGT DECREASED GLUCOSE; Start 03/06/16 at 08: 45 Hydralazine HCl (Apresoline) 100 mg Q8 NGT Last administered on 03/16/16at 22: 53; Admin Dose 100 MG; Start 03/06/16 at 14:00 Metoprolol Tartrate (Lopressor) 150 mg Q8 NGT Last administered on 03/16/16at 22:52; Admin Dose 150 MG; Start 03/06/16 at 14:00 Hydralazine HCl (Apresoline) 10 mg Q4H PRN IV ELEVATED SYSTOLIC BP Last administered on 03/17/16 00:47; Admin Dose 10 MG; Start 03/06/16 at 16:00 Amlodipine Besylate (Norvasc) 10 mg DAILY PO Last administered on 03/14/16at 09 :52; Admin Dose 10 MG; Start 03/09/16 at 17:00 Minoxidil (Loniten) 10 mg BID NGT Last administered on 03/16/16at 20:28; Admin Dose 10 MG; Start 03/09/16 at 21:00 Insulin Aspart NOVOLOG *MODERATE* ALGORI... Q6 SC Last administered on at 18:30; Admin Dose 2 UNIT; Start 03/10/16 at 06:00 Levetiracetam/ Dextrose (Keppra Iv/D5W) 115 ml @ 460 mls/hr Q12 IVPB Last administered on 03/17/16 10:45; Admin Dose 460 MLS/HR; Start 03/11/16 at 21:00 Diltiazem HCl (Cardizem) 90 mg Q8 PO Last administered on 03/16/16at 22:53; Admin Dose 90 MG; Start 03/12/16 at 14:00 Fluconazole 100 mg 100 mg DAILY PO Last administered on 03/17/16 09:52; Admin Dose 100 MG; Start 03/12/16 at 14:30 Piperacillin Sod/ Tazobactam Sod 50 ml @ 100 mls/hr Q8 IVPB Last administered on 03/17/16 08:14; Admin Dose 100 MLS/HR; Start 03/12/16 at 15:00 Fentanyl 1000 mcg/ Dextrose 100 ml @ 2.5 mls/hr TITRATE IV Last administered on 03/16/16at 21:04; Admin Dose 5 MLS/HR; Start 03/13/16 at 18:00 Pantoprazole/ Sodium Chloride (Protonix Iv/NS) 100 ml @ 10 mls/hr Q10H IV Last administered on 03/17/16 06:54; Admin Dose 10 MLS/HR; Start 03/14/16 at 10 :30 Sucralfate 1 gm 1 gm QID NGT Last administered on 03/17/16 09:52; Admin Dose 1 GM; Start 03/15/16 at 09:00 Midazolam HCl 50 mg/Dextrose 50 ml @ 0 mls/hr TITRATE IV Last administered on 02:08; Admin Dose 7 MLS/HR; Start 03/15/16 at 11:30 Esmolol HCl/ Sodium Chloride 250 ml @ 0 mls/hr TITRATE IV Last administered on 03/17/16 03:34; Admin Dose 31.2 MLS/HR; Start 03/17/16 at 02:00 Phenylephrine HCl 160 mg/Dextrose 500 ml @ 18.75 mls/ hr TITRATE IV Last administered on 03/17/16 08:09; Admin Dose 9.37 MLS/HR; Start 03/17/16 at 07:30 Dopamine HCl 1600 mg/Dextrose 250 ml @ 1.99 mls/hr TITRATE IV Last administered on 03/17/16 08:39; Admin Dose 1.99 MLS/HR; Start 03/17/16 at 07:30 Sodium Bicarbonate 150 meq/Dextrose/ Sodium Chloride 1,000 ml @ 100 mls/hr Q10H IV Last administered on 03/17/16 10:16; Admin Dose 100 MLS/HR; Start at 09:30 Norepinephrine (Levophed) 250 ml @ 1.875 mls/ hr TITRATE IV Last administered on 03/17/16 11:04; Admin Dose 3.75 MLS/HR; Start 03/17/16 at 11:00 KEITH CRAIG NP Mar 17, 2016 12:45
[2016-03-17] MEDS: IPRATROPIUM (HFA) 12.9 GM INHALER INH SCH ×2 (13:52→19:58)
--- NOTE | 2016-03-17 14:11 | CONS ---
Date/Time of Note Date/Time of Note DATE: 03/17/16 TIME: 14:10 Assessment/Plan Assessment/Plan Chief Complaint/Hosp Course Assessment/Plan 1. Acute kidney injury, likely secondary to acute tubular necrosis from contrast-induced nephropathy and also secondary to ischemic acute tubular necrosis from aortic dissection.on hd 2. type B [place] aortic dissection. 3. Hypertension 4. acute resp failiure intubated on vent 5 anasarca plan hd when stable Problems: Consultation Date/Type/Reason Admit Date/Time Feb 18, 2016 at 09:14 Initial Consult Date 02/26/16 Type of Consultation: renal Referring Provider: MOSES HARRIS MD 24 HR Interval Summary Subjective hx not possible: other (on vent s/p code blueper rn) Exam/Review of Systems Vital Signs Vitals Vital Signs Date Time Temp Pulse Resp B/P Pulse Ox O2 Delivery O2 Flow Rate FiO2 03/17/16 13:00 98 24 100/57 94 Mechanical Ventilator 03/17/16 12:00 98.8 03/17/16 10:00 100 Intake and Output 03/16/16 03/16/16 03/17/16 15:00 23:00 07:00 Intake Total 943 ml 177 ml 226 ml Output Total 5100 ml 700 ml 300 ml Balance -4157 ml -523 ml -74 ml Exam Respiratory: diminished breath sounds Cardiovascular: regular rate and rhythm Gastrointestinal: bowel sounds (+), soft Extremities: edema (+++) Results Result Diagram: 03/17/16 0354 03/17/16 0354 Results 24 hrs Laboratory Tests Test 03/16/16 16:40 03/16/16 17:13 03/17/16 02:07 03/17/16 03:54 Hematocrit 23.6 L 24.2 L Hemoglobin 7.9 L 8.1 L Bedside Glucose 128 136 Anion Gap 22 H Anisocytosis 1+ Band Neutrophils % 10.0 H Blood Morphology Comment Blood Urea Nitrogen 56 H Calcium Level 8.9 Carbon Dioxide Level 22 Chloride Level 93 L Creatinine 4.50 H Differential Comment MANUAL DIFF Eosinophils # 0.2 Eosinophils % 1.0 Glucose Level 130 Hypochromasia 1+ Lymphocytes # 0.7 L Lymphocytes % 3.0 L Magnesium Level 2.4 Mean Corpuscular Hemoglobin 27.1 L Mean Corpuscular Hemoglobin Concent 33.5 Mean Corpuscular Volume 80.7 L Mean Platelet Volume 8.3 Metamyelocytes # 0.7 Metamyelocytes % 3.0 H Microcytosis 1+ Monocytes # 2.0 H Monocytes % 8.0 Myelocytes # 0.5 Myelocytes % 2.0 H Neutrophils # 17.6 H Neutrophils % 72.0 Nucleated Red Blood Cells % 1.0 H Phosphorus Level 9.8 H Platelet Count 264 Potassium Level 4.2 Promyelocytes # 0.2 Promyelocytes % 1.0 H Red Blood Count 3.00 L Red Cell Distribution Width 17.3 H Sodium Level 133 L White Blood Count 24.5 #H Test 03/17/16 07:00 03/17/16 07:24 03/17/16 12:00 03/17/16 13:08 Arterial Blood HCO3 17.0 L 18.3 L Arterial Blood Base Excess -13.4 L -8.8 L Arterial Blood Oxygen Saturation 80.0 L 89.3 L Jovanny Test ACCEPTAB ACCEPTAB Arterial Blood Gas Puncture Site Right Radial Right Radial Arterial Blood Carboxyhemoglobin 0 0.3 Arterial Blood Date Drawn 03/17/2016 7:30:00 AM 03/17/2016 9:20:00 AM Arterial Blood Methemoglobin 0.3 0.1 Arterial Blood pCO2 (Temp correct) 65.2 H 45.2 H Arterial Blood pH (Temp corrected) 7.035 *L 7.226 *L Arterial Blood pO2 (Temp corrected) 57.7 L 63.9 L Blood Gas A-a O2 Differential 590.1 H 603.9 H Blood Gas Actual Respiration Rate 26 30 Blood Gas Critical Value Read Back L LEE RN E KANDI RN Blood Gas Inspiratory Pressure 48.0 Blood Gas Low PEEP Setting 8.0 10.0 Blood Gas Modality VENT - PC VENT - AC Blood Gas Notified Time 03/17/2016 7:53:00 AM 03/17/2016 9:34:00 AM Blood Gas Notified Whom DT R JULIETA Blood Gas Respiration Rate 26.0 30.0 Blood Gas Specimen Source Blood arterial Blood arterial Blood Gas Temperature 37.0 37.0 FiO2 100.0 100.0 Oxyhemoglobin Percent 79.8 L 88.9 L Total Hemoglobin 9.2 L 9.3 L Bedside Glucose 125 169 Blood Gas Tidal Volume 550.0 Medications Medications Current Medications Ondansetron HCl (Zofran Inj) 4 mg Q6H PRN IV NAUSEA AND/OR VOMITING; Start 02/18/16 at 09:30 Acetaminophen (Tylenol Supp) 650 mg Q4H PRN [place] PAIN LEVEL 1-3 OR FEVER Last administered on 02/24/16at 14:32; Admin Dose 650 MG; Start 02/18/16 at 09:30 Morphine Sulfate (morphine) 2 mg Q4H PRN IV PAIN LEVEL 7-10 Last administered on 03/11/16at 16:13; Admin Dose 2 MG; Start 02/18/16 at 09:30 Bisacodyl (Dulcolax Supp) 10 mg DAILY PRN [place] CONSTIPATION; Start 02/18/16 at 09 :30 Metoprolol Tartrate (Lopressor) 5 mg Q4H PRN IV HR>55 Hold SBP<100 Last administered on 03/17/16 00:21; Admin Dose 5 MG; Start 02/21/16 at 11:30 IV Flush (NS 10 ml) 10 ml PRN PRN IV IV PROTOCOL; Start 02/21/16 at 18:30 Ferrous Sulfate (Feosol Liquid Cup) 300 mg BID GTB Last administered on 09:52; Admin Dose 300 MG; Start 02/22/16 at 10:00 Lorazepam (Ativan) 1 mg Q1H PRN IV ANXIETY Last administered on 03/13/16 14: 10; Admin Dose 1 MG; Start 02/23/16 at 11:30 Miscellaneous Information 1 ea NOTE XX ; Start 02/23/16 at 23:15 Glucose (Glutose) 22.5 gm Q15M PRN PO DECREASED GLUCOSE; Start 02/23/16 at 23: 15 Dextrose (D50w Syringe) 50 ml Q15M PRN IV DECREASED GLUCOSE; Start 02/23/16 at 23:15 Glucagon (Glucagen) 1 mg Q15M PRN IM DECREASED GLUCOSE; Start 02/23/16 at 23:15 Glucose (Glutose) 15 gm Q15M PRN BUCCAL DECREASED GLUCOSE; Start 02/23/16 at 23 :15 Metoclopramide HCl (Reglan) 10 mg Q6 IV Last administered on 03/17/16 13:06; Admin Dose 10 MG; Start 03/04/16 at 06:00 Acetaminophen (Tylenol Tab) 650 mg Q6H PRN NGT PAIN AND OR ELEVATED TEMP Last administered on 03/13/16 14:33; Admin Dose 650 MG; Start 03/06/16 at 11:30 Glucose (Glutose) 15 gm Q15M PRN NGT DECREASED GLUCOSE; Start 03/06/16 at 08: 45 Hydralazine HCl (Apresoline) 100 mg Q8 NGT Last administered on 03/16/16at 22: 53; Admin Dose 100 MG; Start 03/06/16 at 14:00 Metoprolol Tartrate (Lopressor) 150 mg Q8 NGT Last administered on 03/16/16at 22:52; Admin Dose 150 MG; Start 03/06/16 at 14:00 Hydralazine HCl (Apresoline) 10 mg Q4H PRN IV ELEVATED SYSTOLIC BP Last administered on 03/17/16 00:47; Admin Dose 10 MG; Start 03/06/16 at 16:00 Amlodipine Besylate (Norvasc) 10 mg DAILY PO Last administered on 03/14/16 09 :52; Admin Dose 10 MG; Start 03/09/16 at 17:00 Minoxidil (Loniten) 10 mg BID NGT Last administered on 03/16/16at 20:28; Admin Dose 10 MG; Start 03/09/16 at 21:00 Insulin Aspart NOVOLOG *MODERATE* ALGORI... Q6 SC Last administered on 13:11; Admin Dose 2 UNIT; Start 03/10/16 at 06:00 Levetiracetam/ Dextrose (Keppra Iv/D5W) 115 ml @ 460 mls/hr Q12 IVPB Last administered on 03/17/16 10:45; Admin Dose 460 MLS/HR; Start 03/11/16 at 21:00 Diltiazem HCl (Cardizem) 90 mg Q8 PO Last administered on 03/16/16 22:53; Admin Dose 90 MG; Start 03/12/16 at 14:00 Fluconazole 100 mg 100 mg DAILY PO Last administered on 03/17/16 09:52; Admin Dose 100 MG; Start 03/12/16 at 14:30 Piperacillin Sod/ Tazobactam Sod 50 ml @ 100 mls/hr Q8 IVPB Last administered on 03/17/16 13:12; Admin Dose 100 MLS/HR; Start 03/12/16 at 15:00 Fentanyl 1000 mcg/ Dextrose 100 ml @ 2.5 mls/hr TITRATE IV Last administered on 03/16/16at 21:04; Admin Dose 5 MLS/HR; Start 03/13/16 at 18:00 Pantoprazole/ Sodium Chloride (Protonix Iv/NS) 100 ml @ 10 mls/hr Q10H IV Last administered on 03/17/16 06:54; Admin Dose 10 MLS/HR; Start 03/14/16 at 10 :30 Sucralfate 1 gm 1 gm QID NGT Last administered on 03/17/16 13:06; Admin Dose 1 GM; Start 03/15/16 at 09:00 Midazolam HCl 50 mg/Dextrose 50 ml @ 0 mls/hr TITRATE IV Last administered on 02:08; Admin Dose 7 MLS/HR; Start 03/15/16 at 11:30 Esmolol HCl/ Sodium Chloride 250 ml @ 0 mls/hr TITRATE IV Last administered on 03/17/16 03:34; Admin Dose 31.2 MLS/HR; Start 03/17/16 at 02:00 Phenylephrine HCl 160 mg/Dextrose 500 ml @ 18.75 mls/ hr TITRATE IV Last administered on 03/17/16 08:09; Admin Dose 9.37 MLS/HR; Start 03/17/16 at 07:30 Dopamine HCl 1600 mg/Dextrose 250 ml @ 1.99 mls/hr TITRATE IV Last administered on 03/17/16 08:39; Admin Dose 1.99 MLS/HR; Start 03/17/16 at 07:30 Sodium Bicarbonate 150 meq/Dextrose/ Sodium Chloride 1,000 ml @ 100 mls/hr Q10H IV Last administered on 03/17/16 10:16; Admin Dose 100 MLS/HR; Start at 09:30 Norepinephrine (Levophed) 250 ml @ 1.875 mls/ hr TITRATE IV Last administered on 03/17/16 11:04; Admin Dose 3.75 MLS/HR; Start 03/17/16 at 11:00 SASHA OWEN MD Mar 17, 2016 14:11
[2016-03-17 14:23] LABS: AADO2 Arterial 582.3 mmHg (7.0-24.0); Allen Test ACCEPTAB; Arterial Base Excess -2.8 mmol/L (-3.0-3); Arterial COHb 0.3 % (0.0-3.0); Arterial Fraction of Oxyhgb 95.8 % (93.0-99.0); Arterial HCO3 22.7 mmol/L (22.0-26.0); Arterial MetHb 0.1 % (0.0-1.5); Arterial Total Hemglobin 8.5 g/dl (12.0-18.0); MODE VENT - AC
--- NOTE | 2016-03-17 18:11 | PN ---
DATE: 03/17/2016 Nurses had called me earlier about this 45-year-old unfortunate gentleman who is being managed for t ype B aortic dissection. Their concern was for very elevated blood pressure that was not responsive to scheduled intravenous hydralazine as well as metoprolol. We started the patient on an esmolol d rip which improved his blood pressure. However, his blood pressure is actually dropping to a danger ously low level, ____ ____. Based on this, the esmolol was stopped and the patient was ____. Of no te is that patient has renal failure that is being treated with hemodialysis, which was commenced on this hospitalization. As mentioned, the patient's blood pressure continued to drop, and eventually his heart rate began to drop as well and he lost the pulse. A Code Blue was called. CPR was commenced according to ACLS p rotocol. I responded to the Code Blue, and the patient was given 1 dose of intravenous epinephrine. There was return of spontaneous circulation after that. His blood pressure remained on the low si de, and so he was commenced on pressor support with Levophed. Unfortunately, despite the maximal do ses of Levophed, the patient's blood pressure continued to fluctuate and required ____ of Pavel-Syneph rine to be added to his regimen. The patient does have some blood pressures that go all the way up to the 200 range and also ____ down to the 60s. He is going to require close intensive care unit mo nitoring and further management. Family was notified by telephone. I also put a call out to the ca rdiologist. We are waiting for his call back for further recommendations regarding intervention. Overall, critical care time so far has been about 40 minutes. For further information and clarifica tion, please review my orders and the nursing notes on the patient's chart. Dictated By: MILTON COX MD, BA/EFRAIN Conf#: [id number] DID#: [id number]
--- NOTE | 2016-03-17 18:11 | SP ---
DATE OF PROCEDURE: 03/17/2016 ELECTROENCEPHALOGRAM REPORT HISTORY: This is a 45-year-old male who was admitted with hypertensive emergency, was found to have aortic dissection, aspiration pneumonia, respiratory failure. His previous EEG was abnormal showin g left frontal sharps. This is a repeat EEG with ECS protocol. CURRENT MEDICATIONS: Keppra. PROCEDURE: Utilizing a 16-channel EEG machine, cap-scalp electrodes were applied in accordance with International 10-20 system. [id number] and [id number] montages were displayed. Electrical i mpedances were measured and reported. DESCRIPTION: During the resting state, there is no clear posterior dominant rhythm noted throughout the tracing. EKG artifact was noted throughout the tracing. By decreasing the sensitivity to 2 mi crovolts, excessive muscle artifact was noted. Full ECS protocol was followed during this recording . INTERPRETATION: This is an abnormal EEG because of no clear identifiable electrical activity consis tent with brain . Please correlate these findings with cerebral blood flow study, apnea test, and cold caloric test. Dictated By: PARK HI/EFRAIN Conf#: [id number] DID#: [id number]
--- NOTE | 2016-03-17 18:30 | CONS ---
Date/Time of Note Date/Time of Note DATE: 03/17/16 TIME: 18:30 Assessment/Plan Assessment/Plan Chief Complaint/Hosp Course Impression and Recommendations: Coffee-ground emesis/Anemia * Continue PPI drip * Transfuse 2 units for hemoglobin less than 7.5 * Emergent EGD with precipitous drop of hemoglobin and/or overt signs of the UGIB. However, this is extremely high risk procedure given his aortic dissection. * Continue Carafate 1g QID Dysphasia, status post NG tube placement * Monitor residual every 6 hours, hold NG tube feed for residual greater than 150mL * Tube feed as tolerated Type B aortic dissection * No surgery planned Thrombus in left cephalic vein * Heparin on hold due to drop in hemoglobin Problems: Consultation Date/Type/Reason Admit Date/Time Feb 18, 2016 at 09:14 Type of Consultation: GI Hx of Present Illness Subjective: sedated, appears comfortable, family at bedside. Constitutional: other (on vent) Cardiovascular: no complaints Gastrointestinal: no complaints Genitourinary: no complaints Musculoskeletal: no complaints Skin: no complaints Psychological: no complaints Past Medical History Medical History: hypertension Social History Alcohol Use: none Smoking Status: Never smoker Drug Use: none Exam/Review of Systems Vital Signs Vitals Vital Signs Date Time Temp Pulse Resp B/P Pulse Ox O2 Delivery O2 Flow Rate FiO2 03/17/16 17:20 90 30 98 100 03/17/16 17:15 138/70 Mechanical Ventilator 03/17/16 16:30 97.8 Intake and Output 03/16/16 03/16/16 03/17/16 15:00 23:00 07:00 Intake Total 943 ml 177 ml 226 ml Output Total 5100 ml 700 ml 300 ml Balance -4157 ml -523 ml -74 ml Exam Constitutional: non-verbal Psych: confusion Head: atraumatic, normocephalic Eyes: nl conjunctiva, nl lids, nl sclera ENMT: mucosa pink and moist, nl external ears & nose, nl lips & teeth, nl nasal mucosa & septum Neck: non-tender, supple Respiratory: clear to auscultation, normal air movement Cardiovascular: nl pulses, regular rate and rhythm Gastrointestinal: bowel sounds, soft Results Result Diagram: 03/17/16 0354 03/17/16 0354 Results 24 hrs Laboratory Tests Test 03/17/16 02:07 03/17/16 03:54 03/17/16 07:00 03/17/16 07:24 Bedside Glucose 136 125 Anion Gap 22 H Anisocytosis 1+ Band Neutrophils % 10.0 H Blood Morphology Comment Blood Urea Nitrogen 56 H Calcium Level 8.9 Carbon Dioxide Level 22 Chloride Level 93 L Creatinine 4.50 H Differential Comment MANUAL DIFF Eosinophils # 0.2 Eosinophils % 1.0 Glucose Level 130 Hematocrit 24.2 L Hemoglobin 8.1 L Hypochromasia 1+ Lymphocytes # 0.7 L Lymphocytes % 3.0 L Magnesium Level 2.4 Mean Corpuscular Hemoglobin 27.1 L Mean Corpuscular Hemoglobin Concent 33.5 Mean Corpuscular Volume 80.7 L Mean Platelet Volume 8.3 Metamyelocytes # 0.7 Metamyelocytes % 3.0 H Microcytosis 1+ Monocytes # 2.0 H Monocytes % 8.0 Myelocytes # 0.5 Myelocytes % 2.0 H Neutrophils # 17.6 H Neutrophils % 72.0 Nucleated Red Blood Cells % 1.0 H Phosphorus Level 9.8 H Platelet Count 264 Potassium Level 4.2 Promyelocytes # 0.2 Promyelocytes % 1.0 H Red Blood Count 3.00 L Red Cell Distribution Width 17.3 H Sodium Level 133 L White Blood Count 24.5 #H Arterial Blood HCO3 17.0 L Arterial Blood Base Excess -13.4 L Arterial Blood Oxygen Saturation 80.0 L Jovanny Test ACCEPTAB Arterial Blood Gas Puncture Site Right Radial Arterial Blood Carboxyhemoglobin 0 Arterial Blood Date Drawn 03/17/2016 7:30:00 AM Arterial Blood Methemoglobin 0.3 Arterial Blood pCO2 (Temp correct) 65.2 H Arterial Blood pH (Temp corrected) 7.035 *L Arterial Blood pO2 (Temp corrected) 57.7 L Blood Gas A-a O2 Differential 590.1 H Blood Gas Actual Respiration Rate 26 Blood Gas Critical Value Read Back L REREZ RN Blood Gas Inspiratory Pressure 48.0 Blood Gas Low PEEP Setting 8.0 Blood Gas Modality VENT - PC Blood Gas Notified Time 03/17/2016 7:53:00 AM Blood Gas Notified Whom DT Blood Gas Respiration Rate 26.0 Blood Gas Specimen Source Blood arterial Blood Gas Temperature 37.0 FiO2 100.0 Oxyhemoglobin Percent 79.8 L Total Hemoglobin 9.2 L Test 03/17/16 09:18 03/17/16 12:00 03/17/16 13:08 03/17/16 17:23 Arterial Blood HCO3 22.7 18.3 L Arterial Blood Base Excess -2.8 -8.8 L Arterial Blood Oxygen Saturation 96.2 89.3 L Jovanny Test ACCEPTAB ACCEPTAB Arterial Blood Gas Puncture Site Right Radial Right Radial Arterial Blood Carboxyhemoglobin 0.3 0.3 Arterial Blood Date Drawn 03/17/2016 2:05:21 PM 03/17/2016 9:20:00 AM Arterial Blood Methemoglobin 0.1 0.1 Arterial Blood pCO2 (Temp correct) 42.2 45.2 H Arterial Blood pH (Temp corrected) 7.348 L 7.226 *L Arterial Blood pO2 (Temp corrected) 88.5 63.9 L Blood Gas A-a O2 Differential 582.3 H 603.9 H Blood Gas Actual Respiration Rate 30 30 Blood Gas Critical Value Read Back E. CABUNGAL RN E CABUNGAL RN Blood Gas Low PEEP Setting 10.0 10.0 Blood Gas Modality VENT - AC VENT - AC Blood Gas Notified Time 03/17/2016 2:22:52 PM 03/17/2016 9:34:00 AM Blood Gas Notified Whom BERTO RENDON Blood Gas Respiration Rate 30.0 30.0 Blood Gas Specimen Source Blood arterial Blood arterial Blood Gas Temperature 37.0 37.0 Blood Gas Tidal Volume 550.0 550.0 FiO2 100.0 100.0 Oxyhemoglobin Percent 95.8 88.9 L Total Hemoglobin 8.5 L 9.3 L Bedside Glucose 169 146 Medications Medications Current Medications Ondansetron HCl (Zofran Inj) 4 mg Q6H PRN IV NAUSEA AND/OR VOMITING; Start 02/18/16 at 09:30 Acetaminophen (Tylenol Supp) 650 mg Q4H PRN [place] PAIN LEVEL 1-3 OR FEVER Last administered on 02/24/16at 14:32; Admin Dose 650 MG; Start 02/18/16 at 09:30 Morphine Sulfate (morphine) 2 mg Q4H PRN IV PAIN LEVEL 7-10 Last administered on 03/11/16at 16:13; Admin Dose 2 MG; Start 02/18/16 at 09:30 Bisacodyl (Dulcolax Supp) 10 mg DAILY PRN [place] CONSTIPATION; Start 02/18/16 at 09 :30 Metoprolol Tartrate (Lopressor) 5 mg Q4H PRN IV HR>55 Hold SBP<100 Last administered on 03/17/16 00:21; Admin Dose 5 MG; Start 02/21/16 at 11:30 IV Flush (NS 10 ml) 10 ml PRN PRN IV IV PROTOCOL; Start 02/21/16 at 18:30 Ferrous Sulfate (Feosol Liquid Cup) 300 mg BID GTB Last administered on 09:52; Admin Dose 300 MG; Start 02/22/16 at 10:00 Lorazepam (Ativan) 1 mg Q1H PRN IV ANXIETY Last administered on 03/13/16at 14: 10; Admin Dose 1 MG; Start 02/23/16 at 11:30 Miscellaneous Information 1 ea NOTE XX ; Start 02/23/16 at 23:15 Glucose (Glutose) 22.5 gm Q15M PRN PO DECREASED GLUCOSE; Start 02/23/16 at 23: 15 Dextrose (D50w Syringe) 50 ml Q15M PRN IV DECREASED GLUCOSE; Start 02/23/16 at 23:15 Glucagon (Glucagen) 1 mg Q15M PRN IM DECREASED GLUCOSE; Start 02/23/16 at 23:15 Glucose (Glutose) 15 gm Q15M PRN BUCC[place] DECREASED GLUCOSE; Start 02/23/16 at 23 :15 Metoclopramide HCl (Reglan) 10 mg Q6 IV Last administered on 03/17/16 13:06; Admin Dose 10 MG; Start 03/04/16 at 06:00 Acetaminophen (Tylenol Tab) 650 mg Q6H PRN NGT PAIN AND OR ELEVATED TEMP Last administered on 03/13/16at 14:33; Admin Dose 650 MG; Start 03/06/16 at 11:30 Glucose (Glutose) 15 gm Q15M PRN NGT DECREASED GLUCOSE; Start 03/06/16 at 08: 45 Hydralazine HCl (Apresoline) 100 mg Q8 NGT Last administered on 03/16/16at 22: 53; Admin Dose 100 MG; Start 03/06/16 at 14:00 Metoprolol Tartrate (Lopressor) 150 mg Q8 NGT Last administered on 03/16/16at 22:52; Admin Dose 150 MG; Start 03/06/16 at 14:00 Hydralazine HCl (Apresoline) 10 mg Q4H PRN IV ELEVATED SYSTOLIC BP Last administered on 03/17/16 00:47; Admin Dose 10 MG; Start 03/06/16 at 16:00 Amlodipine Besylate (Norvasc) 10 mg DAILY PO Last administered on 03/14/16at 09 :52; Admin Dose 10 MG; Start 03/09/16 at 17:00 Minoxidil (Loniten) 10 mg BID NGT Last administered on 03/16/16at 20:28; Admin Dose 10 MG; Start 03/09/16 at 21:00 Insulin Aspart NOVOLOG *MODERATE* ALGORI... Q6 SC Last administered on 13:11; Admin Dose 2 UNIT; Start 03/10/16 at 06:00 Levetiracetam/ Dextrose (Keppra Iv/D5W) 115 ml @ 460 mls/hr Q12 IVPB Last administered on 03/17/16 10:45; Admin Dose 460 MLS/HR; Start 03/11/16 at 21:00 Diltiazem HCl (Cardizem) 90 mg Q8 PO Last administered on 03/16/16at 22:53; Admin Dose 90 MG; Start 03/12/16 at 14:00 Fluconazole 100 mg 100 mg DAILY PO Last administered on 03/17/16 09:52; Admin Dose 100 MG; Start 03/12/16 at 14:30 Piperacillin Sod/ Tazobactam Sod 50 ml @ 100 mls/hr Q8 IVPB Last administered on 03/17/16 13:12; Admin Dose 100 MLS/HR; Start 03/12/16 at 15:00 Fentanyl 1000 mcg/ Dextrose 100 ml @ 2.5 mls/hr TITRATE IV Last administered on 03/16/16at 21:04; Admin Dose 5 MLS/HR; Start 03/13/16 at 18:00 Pantoprazole/ Sodium Chloride (Protonix Iv/NS) 100 ml @ 10 mls/hr Q10H IV Last administered on 03/17/16 17:48; Admin Dose 10 MLS/HR; Start 03/14/16 at 10 :30 Sucralfate 1 gm 1 gm QID NGT Last administered on 03/17/16 13:06; Admin Dose 1 GM; Start 03/15/16 at 09:00 Midazolam HCl 50 mg/Dextrose 50 ml @ 0 mls/hr TITRATE IV Last administered on 02:08; Admin Dose 7 MLS/HR; Start 03/15/16 at 11:30 Esmolol HCl/ Sodium Chloride 250 ml @ 0 mls/hr TITRATE IV Last administered on 03/17/16 03:34; Admin Dose 31.2 MLS/HR; Start 03/17/16 at 02:00 Phenylephrine HCl 160 mg/Dextrose 500 ml @ 18.75 mls/ hr TITRATE IV Last administered on 03/17/16 08:09; Admin Dose 9.37 MLS/HR; Start 03/17/16 at 07:30 Dopamine HCl 1600 mg/Dextrose 250 ml @ 1.99 mls/hr TITRATE IV Last administered on 03/17/16 08:39; Admin Dose 1.99 MLS/HR; Start 03/17/16 at 07:30 Sodium Bicarbonate 150 meq/Dextrose/ Sodium Chloride 1,000 ml @ 100 mls/hr Q10H IV Last administered on 03/17/16 10:16; Admin Dose 100 MLS/HR; Start at 09:30 Norepinephrine 250 ml @ 1.875 mls/ hr TITRATE IV Last administered on 11:04; Admin Dose 3.75 MLS/HR; Start 03/17/16 at 11:00; Stop 03/17/16 at 23: 00 Norepinephrine/ Dextrose (Levophed/D5W) 500 ml @ 0 mls/hr TITRATE IV ; Start 03/17/16 at 23:00 Miscellaneous Information (*Rx Drug Level Order Reminder*) VANCO RANDOM LEVEL... ONCE ONCE XX ; Start 03/18/16 at 05:00; Stop 03/18/16 at 05:01 NURIA CARMONA MD Mar 17, 2016 18:30
--- NOTE | 2016-03-17 19:18 | RADRPT ---
PROCEDURE: XR Chest. CLINICAL INDICATION: Pneumonia, CHF TECHNIQUE: Single frontal chest x-ray. COMPARISON: 03/16/2016 FINDINGS: Endotracheal tube, nasogastric tube, and right-sided PICC line remain in place. Diffuse bilateral p ulmonary opacities are again noted, stable to slightly decreased. No pneumothorax is identified. T here is stable borderline cardiomegaly. The osseous structures are unremarkable. IMPRESSION: 1. Lines and tubes remain in place. 2. Diffuse bilateral pulmonary opacities are again noted, stable to slightly decreased - considerat ions include pneumonia and/or pulmonary edema. 3. Stable borderline cardiomegaly. RPTAT: QQ .Wayne Goldstein MD, MD Date Time Electronically viewed and signed by .Wayne Goldstein MD, on 03/17/2016 10:27 .R/
--- NOTE | 2016-03-17 19:46 | PN ---
Date/Time of Note Date/Time of Note DATE: 03/17/16 TIME: 19:45 Assessment/Plan Lines/Catheters IV Catheter Type (from Nrs): Michael cath Smalls in Place (from Nrs): Yes Assessment/Plan Chief Complaint/Hosp Course IMPRESSION: Type B aortic dissection. The patient's blood pressure more controlled RECOMMENDATIONS: At this time, we would continue blood pressure management, monitor vital signs and laboratory values in an intensive care unit setting. Vent support per pulm medicine No plan for surgery. Abx Repeat CTA Dissection involving the thoracic aorta arising distal to the origin of the left subclavian artery and extending into the abdominal aorta. The distal extent was not included on the study. Flow within both true and false lumen to the level of the celiac artery. Would continue BP control , Vent support Type B aortic dissection SP Dialysys cath follow neurology recc. no plan for surgery at this time I discussed with the patient and Dr. Mccabe and staff Problems: Subjective 24 Hr Interval Summary Constitutional: improved Pain Control: mild Exam/Review of Systems Vital Signs Vitals Vital Signs Date Time Temp Pulse Resp B/P Pulse Ox O2 Delivery O2 Flow Rate FiO2 03/17/16 18:15 89 30 139/72 98 Mechanical Ventilator 03/17/16 17:20 100 03/17/16 16:30 97.8 Intake and Output 03/16/16 03/16/16 03/17/16 15:00 23:00 07:00 Intake Total 943 ml 177 ml 226 ml Output Total 5100 ml 700 ml 300 ml Balance -4157 ml -523 ml -74 ml Exam ENMT: mucosa pink and moist, nl external ears & nose, nl lips & teeth, nl nasal mucosa & septum Neck: non-tender, supple Respiratory: clear to auscultation, normal air movement Cardiovascular: nl pulses, regular rate and rhythm Results Result Diagram: 03/17/16 0354 03/17/16 0354 KAYLYN RADFORD MD Mar 17, 2016 19:46
[2016-03-18] VITALS (69 sets, daily range): BP systolic 78–152; BP diastolic 42–79; PULSE 73–87; RESP 0–30
[2016-03-18] MEDS: METOCLOPRAMIDE 10 MG INJ IV SCH ×4 (00:51→17:36)
[2016-03-18] MEDS: ALBUTEROL HFA 8 GM INHALER INH SCH ×4 (02:53→19:34)
[2016-03-18] MEDS: PANTOPRAZOLE IV 80 MG in SOD CHLORIDE 0.9% 100 ML IV SCH ×3 (03:53→23:57)
[2016-03-18 05:21] LABS: HEMATOCRIT 21.4 % (42.0-52.0); HEMOGLOBIN 7.3 g/dl (14.0-18.0); MEAN CORPUSCULAR HEMOGLOBIN 27.2 pg (29.0-33.0); MEAN CORPUSCULAR HGB CONC 34.1 g/dl (32.0-37.0); MEAN CORPUSCULAR VOLUME 79.8 fl (82.0-101.0); MEAN PLATELET VOLUME 7.7 fl (7.4-10.4); PLATELET COUNT 280 10^3/UL (140-440); RED BLOOD COUNT 2.68 10^6/ul (4.70-6.10); RED CELL DISTRIBUTION WIDTH 17.8 % (11.5-14.5); UNCORRECTED WBC 24.4 10^3/ul (4.8-10.8); WHITE BLOOD COUNT 24.4 10^3/ul (4.8-10.8)
[2016-03-18 05:38] LABS: CONDITION 1; LH ANALYZER COMMENTS 1
[2016-03-18] MEDS: FUROSEMIDE 20 MG INJ IV SCH ×2 (05:39→18:20)
[2016-03-18] MEDS: PIPER-TAZO 2.25 GM (PMX) 50 ML IVPB SCH ×3 (05:39→21:11)
[2016-03-18] MEDS: METOPROLOL 100 MG TAB NGT SCH ×3 (05:40→21:11)
[2016-03-18] MEDS: DILTIAZEM 30 MG TAB PO SCH ×3 (05:40→21:11)
[2016-03-18 05:49] LABS: POTASSIUM 3.5 mmol/L (3.5-5.1)
[2016-03-18 05:52] LABS: CALCIUM 8.6 mg/dl (8.4-10.2); PHOSPHORUS 8.8 mg/dl (2.5-4.9)
[2016-03-18 05:53] LABS: MAGNESIUM 2.6 mg/dl (1.7-2.5)
[2016-03-18] MEDS: INSULIN ASPART [NOVOLOG] 3 ML PEN SC SCH ×4 (05:54→18:00)
[2016-03-18 06:07] LABS: CREATININE 5.13 mg/dl (0.61-1.24)
[2016-03-18] MEDS: DEXTROSE IV SCH ×3 (06:19→22:19)
[2016-03-18] MEDS: SODIUM BICARBONATE IV SCH ×3 (06:19→22:19)
[2016-03-18] MEDS: NACL IV SCH ×3 (06:19→22:19)
--- NOTE | 2016-03-18 07:22 | CONS ---
Date/Time of Note Date/Time of Note DATE: 03/18/16 TIME: 07:20 Assessment/Plan Assessment/Plan Chief Complaint/Hosp Course Impression and Recommendations: Coffee-ground emesis/Anemia * Continue PPI drip, will defer to Dr. Nath whether to change to iv bid dosing. * Transfuse 2 units for hemoglobin less than 7.5 * Emergent EGD with precipitous drop of hemoglobin and/or overt signs of the UGIB. However, this is extremely high risk procedure given his aortic dissection. * Continue Carafate 1g QID Dysphasia, status post NG tube placement * Monitor residual every 6 hours, hold NG tube feed for residual greater than 150mL * Tube feed as tolerated Type B aortic dissection * No surgery planned Thrombus in left cephalic vein * Heparin on hold due to drop in hemoglobin Dr. Nath to resume care tomorrow Problems: Consultation Date/Type/Reason Admit Date/Time Feb 18, 2016 at 09:14 Initial Consult Date 02/26/16 Type of Consultation: GI Referring Provider: MOSES HARRIS MD 24 HR Interval Summary Free Text/Dictation awake, opens eyes, not interactive Exam/Review of Systems Vital Signs Vitals Vital Signs Date Time Temp Pulse Resp B/P Pulse Ox O2 Delivery O2 Flow Rate FiO2 03/18/16 05:20 78 30 99 100 03/18/16 04:00 97.4 147/71 Mechanical Ventilator Intake and Output 03/17/16 03/17/16 03/18/16 15:00 23:00 07:00 Intake Total 789.68 ml 935.97 ml 906 ml Output Total 0 ml 225 ml 5 ml Balance 789.68 ml 710.97 ml 901 ml Exam Constitutional: non-verbal Psych: confusion Head: atraumatic, normocephalic Eyes: nl conjunctiva, nl lids, nl sclera ENMT: mucosa pink and moist, nl external ears & nose, nl lips & teeth, nl nasal mucosa & septum Neck: non-tender, supple Respiratory: clear to auscultation, normal air movement Cardiovascular: nl pulses, regular rate and rhythm Gastrointestinal: bowel sounds, non-tender, soft Results Result Diagram: 03/18/16 0455 03/18/16 0455 Results 24 hrs Laboratory Tests Test 03/17/16 07:24 03/17/16 09:18 03/17/16 12:00 03/17/16 13:08 Bedside Glucose 125 169 Arterial Blood HCO3 22.7 18.3 L Arterial Blood Base Excess -2.8 -8.8 L Arterial Blood Oxygen Saturation 96.2 89.3 L Jovanny Test ACCEPTAB ACCEPTAB Arterial Blood Gas Puncture Site Right Radial Right Radial Arterial Blood Carboxyhemoglobin 0.3 0.3 Arterial Blood Date Drawn 03/17/2016 2:05:21 PM 03/17/2016 9:20:00 AM Arterial Blood Methemoglobin 0.1 0.1 Arterial Blood pCO2 (Temp correct) 42.2 45.2 H Arterial Blood pH (Temp corrected) 7.348 L 7.226 *L Arterial Blood pO2 (Temp corrected) 88.5 63.9 L Blood Gas A-a O2 Differential 582.3 H 603.9 H Blood Gas Actual Respiration Rate 30 30 Blood Gas Critical Value Read Back E. CABUNGAL RN E CABUNGAL RN Blood Gas Low PEEP Setting 10.0 10.0 Blood Gas Modality VENT - AC VENT - AC Blood Gas Notified Time 03/17/2016 2:22:52 PM 03/17/2016 9:34:00 AM Blood Gas Notified Whom RDYONATHAN RENDON Blood Gas Respiration Rate 30.0 30.0 Blood Gas Specimen Source Blood arterial Blood arterial Blood Gas Temperature 37.0 37.0 Blood Gas Tidal Volume 550.0 550.0 FiO2 100.0 100.0 Oxyhemoglobin Percent 95.8 88.9 L Total Hemoglobin 8.5 L 9.3 L Test 03/17/16 17:23 03/18/16 00:50 03/18/16 04:55 03/18/16 05:42 Bedside Glucose 146 140 146 Anion Gap 22 H Blood Morphology Comment Blood Urea Nitrogen 73 H Calcium Level 8.6 Carbon Dioxide Level 25 Chloride Level 96 L Creatinine 5.13 H Glucose Level 136 Hematocrit 21.4 L Hemoglobin 7.3 L Magnesium Level 2.6 H Mean Corpuscular Hemoglobin 27.2 L Mean Corpuscular Hemoglobin Concent 34.1 Mean Corpuscular Volume 79.8 L Mean Platelet Volume 7.7 Phosphorus Level 8.8 H Platelet Count 280 Potassium Level 3.5 Random Vancomycin Level 20.4 Red Blood Count 2.68 L Red Cell Distribution Width 17.8 H Sodium Level 139 White Blood Count 24.4 H Medications Medications Current Medications Ondansetron HCl (Zofran Inj) 4 mg Q6H PRN IV NAUSEA AND/OR VOMITING; Start 02/18/16 at 09:30 Acetaminophen (Tylenol Supp) 650 mg Q4H PRN GA PAIN LEVEL 1-3 OR FEVER Last administered on 02/24/16at 14:32; Admin Dose 650 MG; Start 02/18/16 at 09:30 Morphine Sulfate (morphine) 2 mg Q4H PRN IV PAIN LEVEL 7-10 Last administered on 03/11/16at 16:13; Admin Dose 2 MG; Start 02/18/16 at 09:30 Bisacodyl (Dulcolax Supp) 10 mg DAILY PRN GA CONSTIPATION; Start 02/18/16 at 09 :30 Metoprolol Tartrate (Lopressor) 5 mg Q4H PRN IV HR>55 Hold SBP<100 Last administered on 03/17/16 00:21; Admin Dose 5 MG; Start 02/21/16 at 11:30 IV Flush (NS 10 ml) 10 ml PRN PRN IV IV PROTOCOL; Start 02/21/16 at 18:30 Ferrous Sulfate (Feosol Liquid Cup) 300 mg BID GTB Last administered on 21:33; Admin Dose 300 MG; Start 02/22/16 at 10:00 Lorazepam (Ativan) 1 mg Q1H PRN IV ANXIETY Last administered on 03/13/16at 14: 10; Admin Dose 1 MG; Start 02/23/16 at 11:30 Miscellaneous Information 1 ea NOTE XX ; Start 02/23/16 at 23:15 Glucose (Glutose) 22.5 gm Q15M PRN PO DECREASED GLUCOSE; Start 02/23/16 at 23: 15 Dextrose (D50w Syringe) 50 ml Q15M PRN IV DECREASED GLUCOSE; Start 02/23/16 at 23:15 Glucagon (Glucagen) 1 mg Q15M PRN IM DECREASED GLUCOSE; Start 02/23/16 at 23:15 Glucose (Glutose) 15 gm Q15M PRN BUCCAL DECREASED GLUCOSE; Start 02/23/16 at 23 :15 Metoclopramide HCl (Reglan) 10 mg Q6 IV Last administered on 03/18/16 05:39; Admin Dose 10 MG; Start 03/04/16 at 06:00 Acetaminophen (Tylenol Tab) 650 mg Q6H PRN NGT PAIN AND OR ELEVATED TEMP Last administered on 03/13/16 14:33; Admin Dose 650 MG; Start 03/06/16 at 11:30 Glucose (Glutose) 15 gm Q15M PRN NGT DECREASED GLUCOSE; Start 03/06/16 at 08: 45 Hydralazine HCl (Apresoline) 100 mg Q8 NGT Last administered on 03/16/16at 22: 53; Admin Dose 100 MG; Start 03/06/16 at 14:00 Metoprolol Tartrate (Lopressor) 150 mg Q8 NGT Last administered on 03/16/16 22:52; Admin Dose 150 MG; Start 03/06/16 at 14:00 Hydralazine HCl (Apresoline) 10 mg Q4H PRN IV ELEVATED SYSTOLIC BP Last administered on 03/17/16 00:47; Admin Dose 10 MG; Start 03/06/16 at 16:00 Amlodipine Besylate (Norvasc) 10 mg DAILY PO Last administered on 03/14/16 09 :52; Admin Dose 10 MG; Start 03/09/16 at 17:00 Minoxidil (Loniten) 10 mg BID NGT Last administered on 03/16/16at 20:28; Admin Dose 10 MG; Start 03/09/16 at 21:00 Insulin Aspart NOVOLOG *MODERATE* ALGORI... Q6 SC Last administered on 05:54; Admin Dose 2 UNIT; Start 03/10/16 at 06:00 Levetiracetam/ Dextrose (Keppra Iv/D5W) 115 ml @ 460 mls/hr Q12 IVPB Last administered on 03/17/16 21:32; Admin Dose 460 MLS/HR; Start 03/11/16 at 21:00 Diltiazem HCl (Cardizem) 90 mg Q8 PO Last administered on 03/16/16 22:53; Admin Dose 90 MG; Start 03/12/16 at 14:00 Fluconazole 100 mg 100 mg DAILY PO Last administered on 03/17/16 09:52; Admin Dose 100 MG; Start 03/12/16 at 14:30 Piperacillin Sod/ Tazobactam Sod 50 ml @ 100 mls/hr Q8 IVPB Last administered on 03/18/16 05:39; Admin Dose 100 MLS/HR; Start 03/12/16 at 15:00 Fentanyl 1000 mcg/ Dextrose 100 ml @ 2.5 mls/hr TITRATE IV Last administered on 03/16/16at 21:04; Admin Dose 5 MLS/HR; Start 03/13/16 at 18:00 Pantoprazole/ Sodium Chloride (Protonix Iv/NS) 100 ml @ 10 mls/hr Q10H IV Last administered on 03/18/16 03:53; Admin Dose 10 MLS/HR; Start 03/14/16 at 10 :30 Sucralfate 1 gm 1 gm QID NGT Last administered on 03/17/16 21:33; Admin Dose 1 GM; Start 03/15/16 at 09:00 Midazolam HCl 50 mg/Dextrose 50 ml @ 0 mls/hr TITRATE IV Last administered on 02:08; Admin Dose 7 MLS/HR; Start 03/15/16 at 11:30 Esmolol HCl/ Sodium Chloride 250 ml @ 0 mls/hr TITRATE IV Last administered on 03/17/16 03:34; Admin Dose 31.2 MLS/HR; Start 03/17/16 at 02:00 Phenylephrine HCl 160 mg/Dextrose 500 ml @ 18.75 mls/ hr TITRATE IV Last administered on 03/17/16 08:09; Admin Dose 9.37 MLS/HR; Start 03/17/16 at 07:30 Dopamine HCl 1600 mg/Dextrose 250 ml @ 1.99 mls/hr TITRATE IV Last administered on 03/17/16 08:39; Admin Dose 1.99 MLS/HR; Start 03/17/16 at 07:30 Sodium Bicarbonate 150 meq/Dextrose/ Sodium Chloride 1,000 ml @ 100 mls/hr Q10H IV Last administered on 03/18/16 06:19; Admin Dose 100 MLS/HR; Start at 09:30 Norepinephrine/ Dextrose (Levophed/D5W) 500 ml @ 0 mls/hr TITRATE IV ; Start 03/17/16 at 23:00 NURIA CARMONA MD Mar 18, 2016 07:21
[2016-03-18] MEDS: IPRATROPIUM (HFA) 12.9 GM INHALER INH SCH ×3 (07:25→19:34)
[2016-03-18] MEDS: CALCIUM CARBONATE 500 MG CHEW TAB PO SCH ×3 (07:35→17:35)
--- NOTE | 2016-03-18 08:08 | RADRPT ---
PROCEDURE: XR Chest. CLINICAL INDICATION: Shortness of breath. TECHNIQUE: Single frontal view. COMPARISON: 03/17/2016. 0543 hours. FINDINGS: The endotracheal tube, nasogastric tube, and right arm PICC line remain in satisfactory position. E xtensive bilateral pulmonary air space disease is slightly worse than seen previously. The heart is mildly enlarged. There is no pleural effusion. There is no pneumothorax. IMPRESSION: 1. Slightly worse appearance of the lungs. 2. No other change from 03/17/2016. RPTAT: QQ .Bk Lujan MD, MD Date Time Electronically viewed and signed by .Bk Lujan MD, MD on 03/18/2016 08:08 .R/
[2016-03-18 08:27] LABS: AADO2 Arterial 559.3 mmHg (7.0-24.0); Allen Test ACCEPTAB; Arterial Base Excess -1.8 mmol/L (-3.0-3); Arterial COHb 0.3 % (0.0-3.0); Arterial Fraction of Oxyhgb 97.1 % (93.0-99.0); Arterial HCO3 22.9 mmol/L (22.0-26.0); Arterial MetHb 0.2 % (0.0-1.5); Arterial Total Hemglobin 10.6 g/dl (12.0-18.0); MODE VENT - AC
[2016-03-18] MEDS ORDERED: SOD CHLORIDE 0.9% 250 ML IV* ONE (08:28)
[2016-03-18] MEDS: AMLODIPINE 10 MG TAB PO SCH (08:59)
[2016-03-18] MEDS: MINOXIDIL 10 MG TAB NGT SCH ×2 (08:59→20:50)
[2016-03-18 09:22] LABS: LYMPHOCYTES # 1.7 10^3/ul (0.8-2.9); MONOCYTE # 2.2 10^3/ul (0.3-0.9); MYELOCYTES # 1.2; NEUTROPHIL # 16.3 10^3/ul (1.6-7.5); PLATELET ESTIMATE PLT APPEAR ADEQUATE
--- NOTE | 2016-03-18 09:35 | CONS ---
Date/Time of Note Date/Time of Note DATE: 03/18/16 TIME: 09:26 Assessment/Plan Assessment/Plan Chief Complaint/Hosp Course Imp: 1.HTN emergency-NL EF by echo this admit-now hypotensive s/p code blue on dopamine 2.Aortic dissection-type B again demonstrated by Chest CT 02/29/16 3.abnl ecg-lateral TWI-negative troponin x 3 since admit 4.anxiety 5.ARF 6. Pericardial effusion by echo-small with NL EF 7.Encephalopathic-confirmed brain by EEG 03/17/16 8.Pulmonary embolism 9.Tachycardia-S tach-only when on sedation vacation 10.CHF-diastolic acute 11.Resp [id number] 12.Seizures-on keppra 13. Acute on chronic renal failure 14.GIB/anemia 15/ s/p PES arrest requiring ACLS protocol after having htn and then reciving esmolol with subsequent bradycardia and PEA Recc: -Tele in ICU -HD as indicated -Continue pressors for now -Continue keppra for seizures -Family decding upon direction of care at this time Problems: Consultation Date/Type/Reason Admit Date/Time Feb 18, 2016 at 09:14 Initial Consult Date 02/19/2016 Type of Consultation: Cardiology Reason for Consultation HTN/aortic dissection Referring Provider: MOSES HARRIS MD Exam/Review of Systems Vital Signs Vitals Vital Signs Date Time Temp Pulse Resp B/P Pulse Ox O2 Delivery O2 Flow Rate FiO2 03/18/16 09:15 76 30 111/48 96 03/18/16 09:00 Mechanical Ventilator 03/18/16 08:00 97.6 03/18/16 05:20 100 Intake and Output 03/17/16 03/17/16 03/18/16 15:00 23:00 07:00 Intake Total 789.68 ml 935.97 ml 906 ml Output Total 0 ml 225 ml 5 ml Balance 789.68 ml 710.97 ml 901 ml Exam Review of Systems: CONSTITUTIONAL: No fevers, chills. PULMONARY: intubated CARDIOVASCULAR: No chest pain/palpitations GASTROINTESTINAL: No nausea/vomiting. GENITOURINARY: No hematuria/dysuria. MUSCULOSKELETAL: No myagias/arthalgias. PSYCHIATRIC: The patient denies depression. NEUROLOGIC:encephalopathy Constitutional: other (encephalopathic) Psych: no complaints Head: normocephalic ENMT: intubated, mucosa pink and moist Neck: jvd, supple Respiratory: other (upper airway rhonchi) Cardiovascular: regular rate and rhythm Gastrointestinal: non-tender, soft Musculoskeletal: muscle tone (normal) Extremities: edema (none) Neurological: other (No focal deficits) Results Result Diagram: 03/18/16 0455 03/18/16 0455 Results 24 hrs Laboratory Tests Test 03/17/16 12:00 03/17/16 13:08 03/17/16 17:23 03/18/16 00:50 Arterial Blood HCO3 18.3 L Arterial Blood Base Excess -8.8 L Arterial Blood Oxygen Saturation 89.3 L Jovanny Test ACCEPTAB Arterial Blood Gas Puncture Site Right Radial Arterial Blood Carboxyhemoglobin 0.3 Arterial Blood Date Drawn 03/17/2016 9:20:00 AM Arterial Blood Methemoglobin 0.1 Arterial Blood pCO2 (Temp correct) 45.2 H Arterial Blood pH (Temp corrected) 7.226 *L Arterial Blood pO2 (Temp corrected) 63.9 L Blood Gas A-a O2 Differential 603.9 H Blood Gas Actual Respiration Rate 30 Blood Gas Critical Value Read Back E CABUNGAL RN Blood Gas Low PEEP Setting 10.0 Blood Gas Modality VENT - AC Blood Gas Notified Time 03/17/2016 9:34:00 AM Blood Gas Notified Whom R JULIETA Blood Gas Respiration Rate 30.0 Blood Gas Specimen Source Blood arterial Blood Gas Temperature 37.0 Blood Gas Tidal Volume 550.0 FiO2 100.0 Oxyhemoglobin Percent 88.9 L Total Hemoglobin 9.3 L Bedside Glucose 169 146 140 Test 03/18/16 04:55 03/18/16 05:42 03/18/16 07:00 Anion Gap 22 H Band Neutrophils % 5.0 Blood Morphology Comment Blood Urea Nitrogen 73 H Calcium Level 8.6 Carbon Dioxide Level 25 Chloride Level 96 L Creatinine 5.13 H Eosinophils # 1.0 H Eosinophils % 4.0 Glucose Level 136 Hematocrit 21.4 L Hemoglobin 7.3 L Lymphocytes # 1.7 Lymphocytes % 7.0 L Magnesium Level 2.6 H Mean Corpuscular Hemoglobin 27.2 L Mean Corpuscular Hemoglobin Concent 34.1 Mean Corpuscular Volume 79.8 L Mean Platelet Volume 7.7 Metamyelocytes # 0.7 Metamyelocytes % 3.0 H Monocytes # 2.2 H Monocytes % 9.0 Myelocytes # 1.2 Myelocytes % 5.0 H Neutrophils # 16.3 H Neutrophils % 67.0 Phosphorus Level 8.8 H Platelet Count 280 Platelet Estimate PLT APPEAR ADEQUATE Potassium Level 3.5 Random Vancomycin Level 20.4 Red Blood Count 2.68 L Red Cell Distribution Width 17.8 H Sodium Level 139 White Blood Count 24.4 H Bedside Glucose 146 Arterial Blood HCO3 22.9 Arterial Blood Base Excess -1.8 Arterial Blood Oxygen Saturation 97.6 Jovanny Test ACCEPTAB Arterial Blood Gas Puncture Site Right Radial Arterial Blood Carboxyhemoglobin 0.3 Arterial Blood Date Drawn 03/18/2016 7:55:41 AM Arterial Blood Methemoglobin 0.2 Arterial Blood pCO2 (Temp correct) 38.6 Arterial Blood pH (Temp corrected) 7.391 Arterial Blood pO2 (Temp corrected) 115.1 H Blood Gas A-a O2 Differential 559.3 H Blood Gas Actual Respiration Rate 30 Blood Gas Low PEEP Setting 10.0 Blood Gas Modality VENT - AC Blood Gas Notified Time 03/18/2016 8:26:55 AM Blood Gas Notified Whom CW Blood Gas Respiration Rate 30.0 Blood Gas Specimen Source Blood arterial Blood Gas Temperature 37.0 Blood Gas Tidal Volume 550.0 FiO2 100.0 Oxyhemoglobin Percent 97.1 Total Hemoglobin 10.6 L Medications Medications Current Medications Ondansetron HCl (Zofran Inj) 4 mg Q6H PRN IV NAUSEA AND/OR VOMITING; Start 02/18/16 at 09:30 Acetaminophen (Tylenol Supp) 650 mg Q4H PRN ME PAIN LEVEL 1-3 OR FEVER Last administered on 02/24/16at 14:32; Admin Dose 650 MG; Start 02/18/16 at 09:30 Morphine Sulfate (morphine) 2 mg Q4H PRN IV PAIN LEVEL 7-10 Last administered on 03/11/16at 16:13; Admin Dose 2 MG; Start 02/18/16 at 09:30 Bisacodyl (Dulcolax Supp) 10 mg DAILY PRN ME CONSTIPATION; Start 02/18/16 at 09 :30 Metoprolol Tartrate (Lopressor) 5 mg Q4H PRN IV HR>55 Hold SBP<100 Last administered on 03/17/16t 00:21; Admin Dose 5 MG; Start 02/21/16 at 11:30 IV Flush (NS 10 ml) 10 ml PRN PRN IV IV PROTOCOL; Start 02/21/16 at 18:30 Ferrous Sulfate (Feosol Liquid Cup) 300 mg BID GTB Last administered on 21:33; Admin Dose 300 MG; Start 02/22/16 at 10:00 Lorazepam (Ativan) 1 mg Q1H PRN IV ANXIETY Last administered on 03/13/16at 14: 10; Admin Dose 1 MG; Start 02/23/16 at 11:30 Miscellaneous Information 1 ea NOTE XX ; Start 02/23/16 at 23:15 Glucose (Glutose) 22.5 gm Q15M PRN PO DECREASED GLUCOSE; Start 02/23/16 at 23: 15 Dextrose (D50w Syringe) 50 ml Q15M PRN IV DECREASED GLUCOSE; Start 02/23/16 at 23:15 Glucagon (Glucagen) 1 mg Q15M PRN IM DECREASED GLUCOSE; Start 02/23/16 at 23:15 Glucose (Glutose) 15 gm Q15M PRN BUCCAL DECREASED GLUCOSE; Start 02/23/16 at 23 :15 Metoclopramide HCl (Reglan) 10 mg Q6 IV Last administered on 03/18/16 05:39; Admin Dose 10 MG; Start 03/04/16 at 06:00 Acetaminophen (Tylenol Tab) 650 mg Q6H PRN NGT PAIN AND OR ELEVATED TEMP Last administered on 03/13/16at 14:33; Admin Dose 650 MG; Start 03/06/16 at 11:30 Glucose (Glutose) 15 gm Q15M PRN NGT DECREASED GLUCOSE; Start 03/06/16 at 08: 45 Hydralazine HCl (Apresoline) 100 mg Q8 NGT Last administered on 03/16/16at 22: 53; Admin Dose 100 MG; Start 03/06/16 at 14:00 Metoprolol Tartrate (Lopressor) 150 mg Q8 NGT Last administered on 03/16/16at 22:52; Admin Dose 150 MG; Start 03/06/16 at 14:00 Hydralazine HCl (Apresoline) 10 mg Q4H PRN IV ELEVATED SYSTOLIC BP Last administered on 03/17/16 00:47; Admin Dose 10 MG; Start 03/06/16 at 16:00 Amlodipine Besylate (Norvasc) 10 mg DAILY PO Last administered on 03/14/16 09 :52; Admin Dose 10 MG; Start 03/09/16 at 17:00 Minoxidil (Loniten) 10 mg BID NGT Last administered on 03/16/16at 20:28; Admin Dose 10 MG; Start 03/09/16 at 21:00 Insulin Aspart NOVOLOG *MODERATE* ALGORI... Q6 SC Last administered on 05:54; Admin Dose 2 UNIT; Start 03/10/16 at 06:00 Levetiracetam/ Dextrose (Keppra Iv/D5W) 115 ml @ 460 mls/hr Q12 IVPB Last administered on 03/17/16 21:32; Admin Dose 460 MLS/HR; Start 03/11/16 at 21:00 Diltiazem HCl (Cardizem) 90 mg Q8 PO Last administered on 03/16/16at 22:53; Admin Dose 90 MG; Start 03/12/16 at 14:00 Fluconazole 100 mg 100 mg DAILY PO Last administered on 03/17/16 09:52; Admin Dose 100 MG; Start 03/12/16 at 14:30 Piperacillin Sod/ Tazobactam Sod 50 ml @ 100 mls/hr Q8 IVPB Last administered on 03/18/16 05:39; Admin Dose 100 MLS/HR; Start 03/12/16 at 15:00 Fentanyl 1000 mcg/ Dextrose 100 ml @ 2.5 mls/hr TITRATE IV Last administered on 03/16/16 21:04; Admin Dose 5 MLS/HR; Start 03/13/16 at 18:00 Pantoprazole/ Sodium Chloride (Protonix Iv/NS) 100 ml @ 10 mls/hr Q10H IV Last administered on 03/18/16 03:53; Admin Dose 10 MLS/HR; Start 03/14/16 at 10 :30 Sucralfate 1 gm 1 gm QID NGT Last administered on 03/17/16 21:33; Admin Dose 1 GM; Start 03/15/16 at 09:00 Midazolam HCl 50 mg/Dextrose 50 ml @ 0 mls/hr TITRATE IV Last administered on 02:08; Admin Dose 7 MLS/HR; Start 03/15/16 at 11:30 Esmolol HCl/ Sodium Chloride 250 ml @ 0 mls/hr TITRATE IV Last administered on 03/17/16 03:34; Admin Dose 31.2 MLS/HR; Start 03/17/16 at 02:00 Phenylephrine HCl 160 mg/Dextrose 500 ml @ 18.75 mls/ hr TITRATE IV Last administered on 03/17/16 08:09; Admin Dose 9.37 MLS/HR; Start 03/17/16 at 07:30 Dopamine HCl 1600 mg/Dextrose 250 ml @ 1.99 mls/hr TITRATE IV Last administered on 03/17/16 08:39; Admin Dose 1.99 MLS/HR; Start 03/17/16 at 07:30 Sodium Bicarbonate 150 meq/Dextrose/ Sodium Chloride 1,000 ml @ 100 mls/hr Q10H IV Last administered on 03/18/16 06:19; Admin Dose 100 MLS/HR; Start at 09:30 Norepinephrine/ Dextrose (Levophed/D5W) 500 ml @ 0 mls/hr TITRATE IV ; Start 03/17/16 at 23:00 JUNAID PAZ Mar 18, 2016 09:35
[2016-03-18 10:03] LABS: HEMATOCRIT 20.3 % (42.0-52.0)
[2016-03-18 10:11] LABS: HEMOGLOBIN 6.9 g/dl (14.0-18.0)
--- NOTE | 2016-03-18 10:12 | PN ---
Date/Time of Note Date/Time of Note DATE: 03/18/16 TIME: 09:57 Assessment/Plan VTE Prophylaxis VTE Prophylaxis Intervention: SCD's Lines/Catheters IV Catheter Type (from [facility], [place]): DAMON Urinary Cath still in place: Yes (PT ANURIC) Reason Cath still needed: other (indicate) (monitor I&O) Assessment/Plan Chief Complaint/Hosp Course Assessment and plan 1. Cardiac arrest with encephalopathy. Patient noted with pulseless electrical activity with initiation of ACLS on 03/17/2016. Cardiology following.Of note, patient did have repeat EEG done on March 17, 2016 that showed no clear identifiable electrical activity consistent with brain . Discussed with patient's family (mother, brother: Ricki, sister: Bismark) 2. Type B aortic dissection. Continue blood pressure control. Continue ICU monitoring. No plan for surgical intervention per vascular surgeon recommendations. 3. Accelerated hypertension. Continue antihypertensives/vasopressors per cardiology. 3. Acute hypoxic respiratory failure. Ey secondary to aspiration. Continue ventilator support as per pulmonary. The patient was extubated and then re- intubated. 4. Aspiration pneumonia. Continue antibiotics as per infectious diseases. 5. Acute kidney injury, most probably secondary to hemodynamics. Nephrology following. Use nephrotoxic drugs with caution. The patient was newly started on hemodialysis on 03/15/2016. 6. Left cephalic vein thrombosis. Was on therapeutic anticoagulation. However due to worsening anemia heparin is held 7. Pulmonary embolism (02/29/2016). Was on therapeutic anticoagulation with heparin gtt. however due to worsening anemia heparin was held 8. Microcytic hypochromic anemia. Continue on iron supplement. Transfuse PRBC as needed. Initial. 9. Acute encephalopathy, most probably metabolic in origin. Electroencephalography showing background slowing suggesting bihemispheric subcortical dysfunction, possibly epileptiform activity. Patient again with cardiac arrest in 03/17/2016. Latest EEG with clinical picture of brain . Family made aware. 10. GI bleeding. Heparin drip on hold. Continue on Protonix per gastric hand collator 12. Severe combined metabolic and respiratory acidosis. Continue insulin bicarbonate Deep venous thrombosis prophylaxis. Bilateral SCDs. Gastrointestinal prophylaxis. Proton pump inhibitors. Disposition and plan: Patient with previous EEG with clinical picture of brain . Discussed in detail with patient's mother/brother: Ricki/sister: Bismark. Palliative care physician to follow. Family to discuss goals of care. Overall prognosis is poor. Discussed plan of care with Dr. louise Morales were care time: 30 minutes Problems: Subjective 24 Hr Interval Summary Free Text/Dictation No current distress. Family at bedside. Remains intubated Exam/Review of Systems Vital Signs Vitals Vital Signs Date Time Temp Pulse Resp B/P Pulse Ox O2 Delivery O2 Flow Rate FiO2 03/18/16 09:15 76 30 111/48 96 03/18/16 09:00 Mechanical Ventilator 03/18/16 08:00 97.6 03/18/16 05:20 100 Intake and Output 03/17/16 03/17/16 03/18/16 15:00 23:00 07:00 Intake Total 789.68 ml 935.97 ml 906 ml Output Total 0 ml 225 ml 5 ml Balance 789.68 ml 710.97 ml 901 ml Exam General: Intubated and sedated. Eyes: [pupils equal round, Anicteric sclera] Neck: Supple nontender, no JVD Cardiac: [S1, S2 auscultated, regular rhythm and rate] Pulmonary: Diminished at lung bases GI: Soft, NG tube in place Extremities: Edema noted bilateral upper and lower extremities +2-3 Skin: [Clean dry and intact] Neurologic: Remains intubated. No purposeful response Results Result Diagram: 03/18/16 0455 03/18/16 0455 Results 24 hrs Laboratory Tests Test 03/17/16 12:00 03/17/16 13:08 03/17/16 17:23 03/18/16 00:50 Arterial Blood HCO3 18.3 L Arterial Blood Base Excess -8.8 L Arterial Blood Oxygen Saturation 89.3 L Jovanny Test ACCEPTAB Arterial Blood Gas Puncture Site Right Radial Arterial Blood Carboxyhemoglobin 0.3 Arterial Blood Date Drawn 03/17/2016 9:20:00 AM Arterial Blood Methemoglobin 0.1 Arterial Blood pCO2 (Temp correct) 45.2 H Arterial Blood pH (Temp corrected) 7.226 *L Arterial Blood pO2 (Temp corrected) 63.9 L Blood Gas A-a O2 Differential 603.9 H Blood Gas Actual Respiration Rate 30 Blood Gas Critical Value Read Back E CABUNGAL RN Blood Gas Low PEEP Setting 10.0 Blood Gas Modality VENT - AC Blood Gas Notified Time 03/17/2016 9:34:00 AM Blood Gas Notified Whom R JULIETA Blood Gas Respiration Rate 30.0 Blood Gas Specimen Source Blood arterial Blood Gas Temperature 37.0 Blood Gas Tidal Volume 550.0 FiO2 100.0 Oxyhemoglobin Percent 88.9 L Total Hemoglobin 9.3 L Bedside Glucose 169 146 140 Test 03/18/16 04:55 03/18/16 05:42 03/18/16 07:00 Anion Gap 22 H Band Neutrophils % 5.0 Blood Morphology Comment Blood Urea Nitrogen 73 H Calcium Level 8.6 Carbon Dioxide Level 25 Chloride Level 96 L Creatinine 5.13 H Eosinophils # 1.0 H Eosinophils % 4.0 Glucose Level 136 Hematocrit 21.4 L Hemoglobin 7.3 L Lymphocytes # 1.7 Lymphocytes % 7.0 L Magnesium Level 2.6 H Mean Corpuscular Hemoglobin 27.2 L Mean Corpuscular Hemoglobin Concent 34.1 Mean Corpuscular Volume 79.8 L Mean Platelet Volume 7.7 Metamyelocytes # 0.7 Metamyelocytes % 3.0 H Monocytes # 2.2 H Monocytes % 9.0 Myelocytes # 1.2 Myelocytes % 5.0 H Neutrophils # 16.3 H Neutrophils % 67.0 Phosphorus Level 8.8 H Platelet Count 280 Platelet Estimate PLT APPEAR ADEQUATE Potassium Level 3.5 Random Vancomycin Level 20.4 Red Blood Count 2.68 L Red Cell Distribution Width 17.8 H Sodium Level 139 White Blood Count 24.4 H Bedside Glucose 146 Arterial Blood HCO3 22.9 Arterial Blood Base Excess -1.8 Arterial Blood Oxygen Saturation 97.6 Jovanny Test ACCEPTAB Arterial Blood Gas Puncture Site Right Radial Arterial Blood Carboxyhemoglobin 0.3 Arterial Blood Date Drawn 03/18/2016 7:55:41 AM Arterial Blood Methemoglobin 0.2 Arterial Blood pCO2 (Temp correct) 38.6 Arterial Blood pH (Temp corrected) 7.391 Arterial Blood pO2 (Temp corrected) 115.1 H Blood Gas A-a O2 Differential 559.3 H Blood Gas Actual Respiration Rate 30 Blood Gas Low PEEP Setting 10.0 Blood Gas Modality VENT - AC Blood Gas Notified Time 03/18/2016 8:26:55 AM Blood Gas Notified Whom CW Blood Gas Respiration Rate 30.0 Blood Gas Specimen Source Blood arterial Blood Gas Temperature 37.0 Blood Gas Tidal Volume 550.0 FiO2 100.0 Oxyhemoglobin Percent 97.1 Total Hemoglobin 10.6 L Medications Medications Current Medications Ondansetron HCl (Zofran Inj) 4 mg Q6H PRN IV NAUSEA AND/OR VOMITING; Start 02/18/16 at 09:30 Acetaminophen (Tylenol Supp) 650 mg Q4H PRN [place] PAIN LEVEL 1-3 OR FEVER Last administered on 02/24/16at 14:32; Admin Dose 650 MG; Start 02/18/16 at 09:30 Morphine Sulfate (morphine) 2 mg Q4H PRN IV PAIN LEVEL 7-10 Last administered on 03/11/16at 16:13; Admin Dose 2 MG; Start 02/18/16 at 09:30 Bisacodyl (Dulcolax Supp) 10 mg DAILY PRN [place] CONSTIPATION; Start 02/18/16 at 09 :30 Metoprolol Tartrate (Lopressor) 5 mg Q4H PRN IV HR>55 Hold SBP<100 Last administered on 03/17/16 00:21; Admin Dose 5 MG; Start 02/21/16 at 11:30 IV Flush (NS 10 ml) 10 ml PRN PRN IV IV PROTOCOL; Start 02/21/16 at 18:30 Ferrous Sulfate (Feosol Liquid Cup) 300 mg BID GTB Last administered on 21:33; Admin Dose 300 MG; Start 02/22/16 at 10:00 Lorazepam (Ativan) 1 mg Q1H PRN IV ANXIETY Last administered on 03/13/16at 14: 10; Admin Dose 1 MG; Start 02/23/16 at 11:30 Miscellaneous Information 1 ea NOTE XX ; Start 02/23/16 at 23:15 Glucose (Glutose) 22.5 gm Q15M PRN PO DECREASED GLUCOSE; Start 02/23/16 at 23: 15 Dextrose (D50w Syringe) 50 ml Q15M PRN IV DECREASED GLUCOSE; Start 02/23/16 at 23:15 Glucagon (Glucagen) 1 mg Q15M PRN IM DECREASED GLUCOSE; Start 02/23/16 at 23:15 Glucose (Glutose) 15 gm Q15M PRN BUCCAL DECREASED GLUCOSE; Start 02/23/16 at 23 :15 Metoclopramide HCl (Reglan) 10 mg Q6 IV Last administered on 03/18/16 05:39; Admin Dose 10 MG; Start 03/04/16 at 06:00 Acetaminophen (Tylenol Tab) 650 mg Q6H PRN NGT PAIN AND OR ELEVATED TEMP Last administered on 03/13/16 14:33; Admin Dose 650 MG; Start 03/06/16 at 11:30 Glucose (Glutose) 15 gm Q15M PRN NGT DECREASED GLUCOSE; Start 03/06/16 at 08: 45 Hydralazine HCl (Apresoline) 100 mg Q8 NGT Last administered on 03/16/16at 22: 53; Admin Dose 100 MG; Start 03/06/16 at 14:00 Metoprolol Tartrate (Lopressor) 150 mg Q8 NGT Last administered on 03/16/16 22:52; Admin Dose 150 MG; Start 03/06/16 at 14:00 Hydralazine HCl (Apresoline) 10 mg Q4H PRN IV ELEVATED SYSTOLIC BP Last administered on 03/17/16 00:47; Admin Dose 10 MG; Start 03/06/16 at 16:00 Amlodipine Besylate (Norvasc) 10 mg DAILY PO Last administered on 03/14/16 09 :52; Admin Dose 10 MG; Start 03/09/16 at 17:00 Minoxidil (Loniten) 10 mg BID NGT Last administered on 03/16/16at 20:28; Admin Dose 10 MG; Start 03/09/16 at 21:00 Insulin Aspart NOVOLOG *MODERATE* ALGORI... Q6 SC Last administered on 05:54; Admin Dose 2 UNIT; Start 03/10/16 at 06:00 Levetiracetam/ Dextrose (Keppra Iv/D5W) 115 ml @ 460 mls/hr Q12 IVPB Last administered on 03/17/16 21:32; Admin Dose 460 MLS/HR; Start 03/11/16 at 21:00 Diltiazem HCl (Cardizem) 90 mg Q8 PO Last administered on 03/16/16 22:53; Admin Dose 90 MG; Start 03/12/16 at 14:00 Fluconazole 100 mg 100 mg DAILY PO Last administered on 03/17/16 09:52; Admin Dose 100 MG; Start 03/12/16 at 14:30 Piperacillin Sod/ Tazobactam Sod 50 ml @ 100 mls/hr Q8 IVPB Last administered on 03/18/16 05:39; Admin Dose 100 MLS/HR; Start 03/12/16 at 15:00 Fentanyl 1000 mcg/ Dextrose 100 ml @ 2.5 mls/hr TITRATE IV Last administered on 03/16/16at 21:04; Admin Dose 5 MLS/HR; Start 03/13/16 at 18:00 Pantoprazole/ Sodium Chloride (Protonix Iv/NS) 100 ml @ 10 mls/hr Q10H IV Last administered on 03/18/16 03:53; Admin Dose 10 MLS/HR; Start 03/14/16 at 10 :30 Sucralfate 1 gm 1 gm QID NGT Last administered on 03/17/16 21:33; Admin Dose 1 GM; Start 03/15/16 at 09:00 Midazolam HCl 50 mg/Dextrose 50 ml @ 0 mls/hr TITRATE IV Last administered on 02:08; Admin Dose 7 MLS/HR; Start 03/15/16 at 11:30 Esmolol HCl/ Sodium Chloride 250 ml @ 0 mls/hr TITRATE IV Last administered on 03/17/16 03:34; Admin Dose 31.2 MLS/HR; Start 03/17/16 at 02:00 Phenylephrine HCl 160 mg/Dextrose 500 ml @ 18.75 mls/ hr TITRATE IV Last administered on 03/17/16 08:09; Admin Dose 9.37 MLS/HR; Start 03/17/16 at 07:30 Dopamine HCl 1600 mg/Dextrose 250 ml @ 1.99 mls/hr TITRATE IV Last administered on 03/17/16 08:39; Admin Dose 1.99 MLS/HR; Start 03/17/16 at 07:30 Sodium Bicarbonate 150 meq/Dextrose/ Sodium Chloride 1,000 ml @ 100 mls/hr Q10H IV Last administered on 03/18/16 06:19; Admin Dose 100 MLS/HR; Start at 09:30 Norepinephrine/ Dextrose (Levophed/D5W) 500 ml @ 0 mls/hr TITRATE IV ; Start 03/17/16 at 23:00 REJI WADE Mar 18, 2016 10:10 REJI WADE Mar 18, 2016 10:10
[2016-03-18] MEDS: SUCRALFATE (100 MG/ML) 10ML CUP NGT SCH ×4 (10:28→20:50)
[2016-03-18] MEDS: FLUCONAZOLE 100 MG TAB PO SCH (10:28)
[2016-03-18] MEDS: LEVETIRACETAM IV 1,500 MG in DEXTROSE 5% 100 ML IVPB SCH ×2 (10:28→20:48)
[2016-03-18] MEDS: FERROUS SULFATE 60 MG/ML 5ML CUP GTB SCH ×2 (10:28→20:48)
--- NOTE | 2016-03-18 10:53 | CONS ---
Date/Time of Note Date/Time of Note DATE: 03/18/16 TIME: 10:50 Consult Date/Type/Reason Admit Date/Time Feb 18, 2016 at 09:14 Type of Consultation: Pulm Ordering Provider: MOSES HARRIS MD Subjective unresponsive pupils fixed dilated no gag eeg consistent with brain Objective Vital Signs Date Time Temp Pulse Resp B/P Pulse Ox O2 Delivery O2 Flow Rate FiO2 03/18/16 09:15 76 30 111/48 96 03/18/16 09:00 Mechanical Ventilator 03/18/16 08:00 100 03/18/16 08:00 97.6 Intake and Output 03/17/16 03/17/16 03/18/16 15:00 23:00 07:00 Intake Total 789.68 ml 935.97 ml 906 ml Output Total 0 ml 225 ml 5 ml Balance 789.68 ml 710.97 ml 901 ml PHYSICAL EXAMINATION GENERAL: Well-nourished well-developed gentleman intubated on mechanical ventilation sedation VITAL SIGNS: see below. HEENT: Pupils equal, round, unreactive CARDIAC: S1, S2, CHEST: Diminished air entry bilaterally. Few rales bilaterally ABDOMEN: Mildly distended. Obese soft nontender no guarding or rebound EXTREMITIES: No cyanosis, clubbing edema +2 NEUROLOGIC: Unable to assess Results/Medications Result Diagram: 03/18/16 0950 03/18/16 0455 Results 24 hrs Laboratory Tests Test 03/17/16 12:00 03/17/16 13:08 03/17/16 17:23 03/18/16 00:50 Arterial Blood HCO3 18.3 L Arterial Blood Base Excess -8.8 L Arterial Blood Oxygen Saturation 89.3 L Jovanny Test ACCEPTAB Arterial Blood Gas Puncture Site Right Radial Arterial Blood Carboxyhemoglobin 0.3 Arterial Blood Date Drawn 03/17/2016 9:20:00 AM Arterial Blood Methemoglobin 0.1 Arterial Blood pCO2 (Temp correct) 45.2 H Arterial Blood pH (Temp corrected) 7.226 *L Arterial Blood pO2 (Temp corrected) 63.9 L Blood Gas A-a O2 Differential 603.9 H Blood Gas Actual Respiration Rate 30 Blood Gas Critical Value Read Back E CABUNGAL RN Blood Gas Low PEEP Setting 10.0 Blood Gas Modality VENT - AC Blood Gas Notified Time 03/17/2016 9:34:00 AM Blood Gas Notified Whom R JULIETA Blood Gas Respiration Rate 30.0 Blood Gas Specimen Source Blood arterial Blood Gas Temperature 37.0 Blood Gas Tidal Volume 550.0 FiO2 100.0 Oxyhemoglobin Percent 88.9 L Total Hemoglobin 9.3 L Bedside Glucose 169 146 140 Test 03/18/16 04:55 03/18/16 05:42 03/18/16 07:00 03/18/16 09:50 Anion Gap 22 H Band Neutrophils % 5.0 Blood Morphology Comment Blood Urea Nitrogen 73 H Calcium Level 8.6 Carbon Dioxide Level 25 Chloride Level 96 L Creatinine 5.13 H Eosinophils # 1.0 H Eosinophils % 4.0 Glucose Level 136 Hematocrit 21.4 L 20.3 L Hemoglobin 7.3 L 6.9 *L Lymphocytes # 1.7 Lymphocytes % 7.0 L Magnesium Level 2.6 H Mean Corpuscular Hemoglobin 27.2 L Mean Corpuscular Hemoglobin Concent 34.1 Mean Corpuscular Volume 79.8 L Mean Platelet Volume 7.7 Metamyelocytes # 0.7 Metamyelocytes % 3.0 H Monocytes # 2.2 H Monocytes % 9.0 Myelocytes # 1.2 Myelocytes % 5.0 H Neutrophils # 16.3 H Neutrophils % 67.0 Phosphorus Level 8.8 H Platelet Count 280 Platelet Estimate PLT APPEAR ADEQUATE Potassium Level 3.5 Random Vancomycin Level 20.4 Red Blood Count 2.68 L Red Cell Distribution Width 17.8 H Sodium Level 139 White Blood Count 24.4 H Bedside Glucose 146 Arterial Blood HCO3 22.9 Arterial Blood Base Excess -1.8 Arterial Blood Oxygen Saturation 97.6 Jovanny Test ACCEPTAB Arterial Blood Gas Puncture Site Right Radial Arterial Blood Carboxyhemoglobin 0.3 Arterial Blood Date Drawn 03/18/2016 7:55:41 AM Arterial Blood Methemoglobin 0.2 Arterial Blood pCO2 (Temp correct) 38.6 Arterial Blood pH (Temp corrected) 7.391 Arterial Blood pO2 (Temp corrected) 115.1 H Blood Gas A-a O2 Differential 559.3 H Blood Gas Actual Respiration Rate 30 Blood Gas Low PEEP Setting 10.0 Blood Gas Modality VENT - AC Blood Gas Notified Time 03/18/2016 8:26:55 AM Blood Gas Notified Whom CW Blood Gas Respiration Rate 30.0 Blood Gas Specimen Source Blood arterial Blood Gas Temperature 37.0 Blood Gas Tidal Volume 550.0 FiO2 100.0 Oxyhemoglobin Percent 97.1 Total Hemoglobin 10.6 L Medications Current Medications Ondansetron HCl (Zofran Inj) 4 mg Q6H PRN IV NAUSEA AND/OR VOMITING; Start 02/18/16 at 09:30 Acetaminophen (Tylenol Supp) 650 mg Q4H PRN [place] PAIN LEVEL 1-3 OR FEVER Last administered on 02/24/16at 14:32; Admin Dose 650 MG; Start 02/18/16 at 09:30 Morphine Sulfate (morphine) 2 mg Q4H PRN IV PAIN LEVEL 7-10 Last administered on 03/11/16at 16:13; Admin Dose 2 MG; Start 02/18/16 at 09:30 Bisacodyl (Dulcolax Supp) 10 mg DAILY PRN [place] CONSTIPATION; Start 02/18/16 at 09 :30 Metoprolol Tartrate (Lopressor) 5 mg Q4H PRN IV HR>55 Hold SBP<100 Last administered on 03/17/16 00:21; Admin Dose 5 MG; Start 02/21/16 at 11:30 IV Flush (NS 10 ml) 10 ml PRN PRN IV IV PROTOCOL; Start 02/21/16 at 18:30 Ferrous Sulfate (Feosol Liquid Cup) 300 mg BID GTB Last administered on 10:28; Admin Dose 300 MG; Start 02/22/16 at 10:00 Lorazepam (Ativan) 1 mg Q1H PRN IV ANXIETY Last administered on 03/13/16at 14: 10; Admin Dose 1 MG; Start 02/23/16 at 11:30 Miscellaneous Information 1 ea NOTE XX ; Start 02/23/16 at 23:15 Glucose (Glutose) 22.5 gm Q15M PRN PO DECREASED GLUCOSE; Start 02/23/16 at 23: 15 Dextrose (D50w Syringe) 50 ml Q15M PRN IV DECREASED GLUCOSE; Start 02/23/16 at 23:15 Glucagon (Glucagen) 1 mg Q15M PRN IM DECREASED GLUCOSE; Start 02/23/16 at 23:15 Glucose (Glutose) 15 gm Q15M PRN BUCCAL DECREASED GLUCOSE; Start 02/23/16 at 23 :15 Metoclopramide HCl (Reglan) 10 mg Q6 IV Last administered on 03/18/16 05:39; Admin Dose 10 MG; Start 03/04/16 at 06:00 Acetaminophen (Tylenol Tab) 650 mg Q6H PRN NGT PAIN AND OR ELEVATED TEMP Last administered on 03/13/16 14:33; Admin Dose 650 MG; Start 03/06/16 at 11:30 Glucose (Glutose) 15 gm Q15M PRN NGT DECREASED GLUCOSE; Start 03/06/16 at 08: 45 Hydralazine HCl (Apresoline) 100 mg Q8 NGT Last administered on 03/16/16at 22: 53; Admin Dose 100 MG; Start 03/06/16 at 14:00 Metoprolol Tartrate (Lopressor) 150 mg Q8 NGT Last administered on 03/16/16at 22:52; Admin Dose 150 MG; Start 03/06/16 at 14:00 Hydralazine HCl (Apresoline) 10 mg Q4H PRN IV ELEVATED SYSTOLIC BP Last administered on 03/17/16 00:47; Admin Dose 10 MG; Start 03/06/16 at 16:00 Amlodipine Besylate (Norvasc) 10 mg DAILY PO Last administered on 03/14/16 09 :52; Admin Dose 10 MG; Start 03/09/16 at 17:00 Minoxidil (Loniten) 10 mg BID NGT Last administered on 03/16/16 20:28; Admin Dose 10 MG; Start 03/09/16 at 21:00 Insulin Aspart NOVOLOG *MODERATE* ALGORI... Q6 SC Last administered on 05:54; Admin Dose 2 UNIT; Start 03/10/16 at 06:00 Levetiracetam/ Dextrose (Keppra Iv/D5W) 115 ml @ 460 mls/hr Q12 IVPB Last administered on 03/18/16 10:28; Admin Dose 460 MLS/HR; Start 03/11/16 at 21:00 Diltiazem HCl (Cardizem) 90 mg Q8 PO Last administered on 03/16/16 22:53; Admin Dose 90 MG; Start 03/12/16 at 14:00 Fluconazole 100 mg 100 mg DAILY PO Last administered on 03/18/16 10:28; Admin Dose 100 MG; Start 03/12/16 at 14:30 Piperacillin Sod/ Tazobactam Sod 50 ml @ 100 mls/hr Q8 IVPB Last administered on 03/18/16 05:39; Admin Dose 100 MLS/HR; Start 03/12/16 at 15:00 Fentanyl 1000 mcg/ Dextrose 100 ml @ 2.5 mls/hr TITRATE IV Last administered on 03/16/16at 21:04; Admin Dose 5 MLS/HR; Start 03/13/16 at 18:00 Pantoprazole/ Sodium Chloride (Protonix Iv/NS) 100 ml @ 10 mls/hr Q10H IV Last administered on 03/18/16 03:53; Admin Dose 10 MLS/HR; Start 03/14/16 at 10 :30 Sucralfate 1 gm 1 gm QID NGT Last administered on 03/18/16 10:28; Admin Dose 1 GM; Start 03/15/16 at 09:00 Midazolam HCl 50 mg/Dextrose 50 ml @ 0 mls/hr TITRATE IV Last administered on 02:08; Admin Dose 7 MLS/HR; Start 03/15/16 at 11:30 Esmolol HCl/ Sodium Chloride 250 ml @ 0 mls/hr TITRATE IV Last administered on 03/17/16 03:34; Admin Dose 31.2 MLS/HR; Start 03/17/16 at 02:00 Phenylephrine HCl 160 mg/Dextrose 500 ml @ 18.75 mls/ hr TITRATE IV Last administered on 03/17/16 08:09; Admin Dose 9.37 MLS/HR; Start 03/17/16 at 07:30 Dopamine HCl 1600 mg/Dextrose 250 ml @ 1.99 mls/hr TITRATE IV Last administered on 03/17/16 08:39; Admin Dose 1.99 MLS/HR; Start 03/17/16 at 07:30 Sodium Bicarbonate 150 meq/Dextrose/ Sodium Chloride 1,000 ml @ 100 mls/hr Q10H IV Last administered on 03/18/16 06:19; Admin Dose 100 MLS/HR; Start at 09:30 Norepinephrine/ Dextrose (Levophed/D5W) 500 ml @ 0 mls/hr TITRATE IV ; Start 03/17/16 at 23:00 Assessment/Plan Chief Complaint/Hosp Course IMPRESSION 1. Status post Hypertensive Emergency 2. Type B Aortic Dissection. No evidence on proximal dissection on recent CT neck and chest, 3. Encephalopathy, possibly secondary to antihypertensive medications. 4. Aspiration pneumonia versus healthcare associated pneumonia requiring reintubation, chest x-ray suggestive of ARDS 5. Pulmonary embolus 6. Renal failure now requiring hemodialysis 7. Anemia evidence of GI bleed 8. Cardiopulmonary arrest eeg consistent with brain RECS: 1. Vent support. 2. Blood pressure control decrease vasopressors as tolerated 3. neuro recs 4. Palliative care recs Problems: ANAYA BREWSTER MD, [facility] Mar 18, 2016 10:53
--- NOTE | 2016-03-18 13:50 | CONS ---
Date/Time of Note Date/Time of Note DATE: 03/18/16 TIME: 13:48 Assessment/Plan Assessment/Plan Chief Complaint/Hosp Course Assessment/Plan 1. Acute kidney injury, on vent hd hold 2. type B Helio aortic dissection. 3. Hypertension 4. acute resp failiure intubated on vent 5 anasarca 6 s/p code blue plan poor prognosis Problems: Consultation Date/Type/Reason Admit Date/Time Feb 18, 2016 at 09:14 Initial Consult Date 02/26/16 Type of Consultation: renal Referring Provider: MOSES HARRIS MD 24 HR Interval Summary Subjective hx not possible: pt non-verbal Exam/Review of Systems Vital Signs Vitals Vital Signs Date Time Temp Pulse Resp B/P Pulse Ox O2 Delivery O2 Flow Rate FiO2 03/18/16 12:30 74 30 96/45 96 03/18/16 12:00 97.4 Mechanical Ventilator 03/18/16 12:00 90 Intake and Output 03/17/16 03/17/16 03/18/16 15:00 23:00 07:00 Intake Total 789.68 ml 935.97 ml 906 ml Output Total 0 ml 225 ml 5 ml Balance 789.68 ml 710.97 ml 901 ml Exam Cardiovascular: regular rate and rhythm Gastrointestinal: soft Extremities: edema (++) Results Result Diagram: 03/18/16 0950 03/18/16 0455 Results 24 hrs Laboratory Tests Test 03/17/16 17:23 03/18/16 00:50 03/18/16 04:55 03/18/16 05:42 Bedside Glucose 146 140 146 Anion Gap 22 H Band Neutrophils % 5.0 Blood Morphology Comment Blood Urea Nitrogen 73 H Calcium Level 8.6 Carbon Dioxide Level 25 Chloride Level 96 L Creatinine 5.13 H Eosinophils # 1.0 H Eosinophils % 4.0 Glucose Level 136 Hematocrit 21.4 L Hemoglobin 7.3 L Lymphocytes # 1.7 Lymphocytes % 7.0 L Magnesium Level 2.6 H Mean Corpuscular Hemoglobin 27.2 L Mean Corpuscular Hemoglobin Concent 34.1 Mean Corpuscular Volume 79.8 L Mean Platelet Volume 7.7 Metamyelocytes # 0.7 Metamyelocytes % 3.0 H Monocytes # 2.2 H Monocytes % 9.0 Myelocytes # 1.2 Myelocytes % 5.0 H Neutrophils # 16.3 H Neutrophils % 67.0 Phosphorus Level 8.8 H Platelet Count 280 Platelet Estimate PLT APPEAR ADEQUATE Potassium Level 3.5 Random Vancomycin Level 20.4 Red Blood Count 2.68 L Red Cell Distribution Width 17.8 H Sodium Level 139 White Blood Count 24.4 H Test 03/18/16 07:00 03/18/16 09:50 03/18/16 12:22 Arterial Blood HCO3 22.9 Arterial Blood Base Excess -1.8 Arterial Blood Oxygen Saturation 97.6 Jovanny Test ACCEPTAB Arterial Blood Gas Puncture Site Right Radial Arterial Blood Carboxyhemoglobin 0.3 Arterial Blood Date Drawn 03/18/2016 7:55:41 AM Arterial Blood Methemoglobin 0.2 Arterial Blood pCO2 (Temp correct) 38.6 Arterial Blood pH (Temp corrected) 7.391 Arterial Blood pO2 (Temp corrected) 115.1 H Blood Gas A-a O2 Differential 559.3 H Blood Gas Actual Respiration Rate 30 Blood Gas Low PEEP Setting 10.0 Blood Gas Modality VENT - AC Blood Gas Notified Time 03/18/2016 8:26:55 AM Blood Gas Notified Whom CW Blood Gas Respiration Rate 30.0 Blood Gas Specimen Source Blood arterial Blood Gas Temperature 37.0 Blood Gas Tidal Volume 550.0 FiO2 100.0 Oxyhemoglobin Percent 97.1 Total Hemoglobin 10.6 L Hematocrit 20.3 L Hemoglobin 6.9 *L Bedside Glucose 121 Medications Medications Current Medications Ondansetron HCl (Zofran Inj) 4 mg Q6H PRN IV NAUSEA AND/OR VOMITING; Start 02/18/16 at 09:30 Acetaminophen (Tylenol Supp) 650 mg Q4H PRN MA PAIN LEVEL 1-3 OR FEVER Last administered on 02/24/16at 14:32; Admin Dose 650 MG; Start 02/18/16 at 09:30 Morphine Sulfate (morphine) 2 mg Q4H PRN IV PAIN LEVEL 7-10 Last administered on 03/11/16at 16:13; Admin Dose 2 MG; Start 02/18/16 at 09:30 Bisacodyl (Dulcolax Supp) 10 mg DAILY PRN MA CONSTIPATION; Start 02/18/16 at 09 :30 Metoprolol Tartrate (Lopressor) 5 mg Q4H PRN IV HR>55 Hold SBP<100 Last administered on 03/17/16t 00:21; Admin Dose 5 MG; Start 02/21/16 at 11:30 IV Flush (NS 10 ml) 10 ml PRN PRN IV IV PROTOCOL; Start 02/21/16 at 18:30 Ferrous Sulfate (Feosol Liquid Cup) 300 mg BID GTB Last administered on 10:28; Admin Dose 300 MG; Start 02/22/16 at 10:00 Lorazepam (Ativan) 1 mg Q1H PRN IV ANXIETY Last administered on 03/13/16at 14: 10; Admin Dose 1 MG; Start 02/23/16 at 11:30 Miscellaneous Information 1 ea NOTE XX ; Start 02/23/16 at 23:15 Glucose (Glutose) 22.5 gm Q15M PRN PO DECREASED GLUCOSE; Start 02/23/16 at 23: 15 Dextrose (D50w Syringe) 50 ml Q15M PRN IV DECREASED GLUCOSE; Start 02/23/16 at 23:15 Glucagon (Glucagen) 1 mg Q15M PRN IM DECREASED GLUCOSE; Start 02/23/16 at 23:15 Glucose (Glutose) 15 gm Q15M PRN BUCCAL DECREASED GLUCOSE; Start 02/23/16 at 23 :15 Metoclopramide HCl (Reglan) 10 mg Q6 IV Last administered on 03/18/16 05:39; Admin Dose 10 MG; Start 03/04/16 at 06:00 Acetaminophen (Tylenol Tab) 650 mg Q6H PRN NGT PAIN AND OR ELEVATED TEMP Last administered on 03/13/16at 14:33; Admin Dose 650 MG; Start 03/06/16 at 11:30 Glucose (Glutose) 15 gm Q15M PRN NGT DECREASED GLUCOSE; Start 03/06/16 at 08: 45 Hydralazine HCl (Apresoline) 100 mg Q8 NGT Last administered on 03/16/16at 22: 53; Admin Dose 100 MG; Start 03/06/16 at 14:00 Metoprolol Tartrate (Lopressor) 150 mg Q8 NGT Last administered on 03/16/16at 22:52; Admin Dose 150 MG; Start 03/06/16 at 14:00 Hydralazine HCl (Apresoline) 10 mg Q4H PRN IV ELEVATED SYSTOLIC BP Last administered on 03/17/16 00:47; Admin Dose 10 MG; Start 03/06/16 at 16:00 Amlodipine Besylate (Norvasc) 10 mg DAILY PO Last administered on 03/14/16at 09 :52; Admin Dose 10 MG; Start 03/09/16 at 17:00 Minoxidil (Loniten) 10 mg BID NGT Last administered on 03/16/16at 20:28; Admin Dose 10 MG; Start 03/09/16 at 21:00 Insulin Aspart NOVOLOG *MODERATE* ALGORI... Q6 SC Last administered on 05:54; Admin Dose 2 UNIT; Start 03/10/16 at 06:00 Levetiracetam/ Dextrose (Keppra Iv/D5W) 115 ml @ 460 mls/hr Q12 IVPB Last administered on 03/18/16 10:28; Admin Dose 460 MLS/HR; Start 03/11/16 at 21:00 Diltiazem HCl (Cardizem) 90 mg Q8 PO Last administered on 03/16/16at 22:53; Admin Dose 90 MG; Start 03/12/16 at 14:00 Fluconazole 100 mg 100 mg DAILY PO Last administered on 03/18/16 10:28; Admin Dose 100 MG; Start 03/12/16 at 14:30 Piperacillin Sod/ Tazobactam Sod 50 ml @ 100 mls/hr Q8 IVPB Last administered on 03/18/16 05:39; Admin Dose 100 MLS/HR; Start 03/12/16 at 15:00 Fentanyl 1000 mcg/ Dextrose 100 ml @ 2.5 mls/hr TITRATE IV Last administered on 03/16/16at 21:04; Admin Dose 5 MLS/HR; Start 03/13/16 at 18:00 Pantoprazole/ Sodium Chloride (Protonix Iv/NS) 100 ml @ 10 mls/hr Q10H IV Last administered on 03/18/16 03:53; Admin Dose 10 MLS/HR; Start 03/14/16 at 10 :30 Sucralfate 1 gm 1 gm QID NGT Last administered on 03/18/16 12:23; Admin Dose 1 GM; Start 03/15/16 at 09:00 Midazolam HCl 50 mg/Dextrose 50 ml @ 0 mls/hr TITRATE IV Last administered on 02:08; Admin Dose 7 MLS/HR; Start 03/15/16 at 11:30 Esmolol HCl/ Sodium Chloride 250 ml @ 0 mls/hr TITRATE IV Last administered on 03/17/16 03:34; Admin Dose 31.2 MLS/HR; Start 03/17/16 at 02:00 Phenylephrine HCl 160 mg/Dextrose 500 ml @ 18.75 mls/ hr TITRATE IV Last administered on 03/17/16 08:09; Admin Dose 9.37 MLS/HR; Start 03/17/16 at 07:30 Dopamine HCl 1600 mg/Dextrose 250 ml @ 1.99 mls/hr TITRATE IV Last administered on 03/17/16 08:39; Admin Dose 1.99 MLS/HR; Start 03/17/16 at 07:30 Sodium Bicarbonate 150 meq/Dextrose/ Sodium Chloride 1,000 ml @ 100 mls/hr Q10H IV Last administered on 03/18/16 06:19; Admin Dose 100 MLS/HR; Start at 09:30 Norepinephrine/ Dextrose (Levophed/D5W) 500 ml @ 0 mls/hr TITRATE IV ; Start 03/17/16 at 23:00 SASHA OWEN MD Mar 18, 2016 13:50
[2016-03-18 17:05] LABS: AADO2 Arterial 533.3 mmHg (7.0-24.0); Allen Test ACCEPTAB; Arterial Base Excess 0.5 mmol/L (-3.0-3); Arterial COHb 0.3 % (0.0-3.0); Arterial Fraction of Oxyhgb 90.6 % (93.0-99.0); Arterial HCO3 25.4 mmol/L (22.0-26.0); Arterial MetHb 0.2 % (0.0-1.5); Arterial Total Hemglobin 7.2 g/dl (12.0-18.0); MODE VENT - AC
--- NOTE | 2016-03-18 17:52 | PN ---
Date/Time of Note Date/Time of Note DATE: 03/18/16 TIME: 17:51 Assessment/Plan VTE Prophylaxis VTE Prophylaxis Intervention: other Lines/Catheters [facility] DAMON Central line still needed: No Urinary Cath still in place: No (PT ANURIC) Assessment/Plan Chief Complaint/Hosp Course IMPRESSION: Type B aortic dissection. The patient's blood pressure more controlled RECOMMENDATIONS: At this time, we would continue blood pressure management, monitor vital signs and laboratory values in an intensive care unit setting. Vent support per pulm medicine No plan for surgery. Abx Repeat CTA Dissection involving the thoracic aorta arising distal to the origin of the left subclavian artery and extending into the abdominal aorta. The distal extent was not included on the study. Flow within both true and false lumen to the level of the celiac artery. Would continue BP control , Vent support Type B aortic dissection SP Dialysys cath follow neurology recc. no plan for surgery at this time I discussed with the patient and Dr. Mccabe and staff Problems: Subjective 24 Hr Interval Summary Gastrointestinal: no complaints Genitourinary: no complaints Musculoskeletal: no complaints Skin: no complaints Exam/Review of Systems Vital Signs Vitals Vital Signs Date Time Temp Pulse Resp B/P Pulse Ox O2 Delivery O2 Flow Rate FiO2 03/18/16 16:00 77 03/18/16 15:30 30 102/47 92 03/18/16 15:00 Mechanical Ventilator 03/18/16 12:00 97.4 03/18/16 12:00 90 Intake and Output 03/17/16 03/17/16 03/18/16 15:00 23:00 07:00 Intake Total 789.68 ml 935.97 ml 906 ml Output Total 0 ml 225 ml 5 ml Balance 789.68 ml 710.97 ml 901 ml Exam Neck: non-tender, supple Respiratory: clear to auscultation, normal air movement Cardiovascular: nl pulses, regular rate and rhythm Gastrointestinal: nl liver, spleen, non-tender, soft Results Result Diagram: 03/18/16 0950 03/18/16 0455 Results 24 hrs Laboratory Tests Test 03/18/16 00:50 03/18/16 04:55 03/18/16 05:42 03/18/16 07:00 Bedside Glucose 140 146 Anion Gap 22 H Band Neutrophils % 5.0 Blood Morphology Comment Blood Urea Nitrogen 73 H Calcium Level 8.6 Carbon Dioxide Level 25 Chloride Level 96 L Creatinine 5.13 H Eosinophils # 1.0 H Eosinophils % 4.0 Glucose Level 136 Hematocrit 21.4 L Hemoglobin 7.3 L Lymphocytes # 1.7 Lymphocytes % 7.0 L Magnesium Level 2.6 H Mean Corpuscular Hemoglobin 27.2 L Mean Corpuscular Hemoglobin Concent 34.1 Mean Corpuscular Volume 79.8 L Mean Platelet Volume 7.7 Metamyelocytes # 0.7 Metamyelocytes % 3.0 H Monocytes # 2.2 H Monocytes % 9.0 Myelocytes # 1.2 Myelocytes % 5.0 H Neutrophils # 16.3 H Neutrophils % 67.0 Phosphorus Level 8.8 H Platelet Count 280 Platelet Estimate PLT APPEAR ADEQUATE Potassium Level 3.5 Random Vancomycin Level 20.4 Red Blood Count 2.68 L Red Cell Distribution Width 17.8 H Sodium Level 139 White Blood Count 24.4 H Arterial Blood HCO3 22.9 Arterial Blood Base Excess -1.8 Arterial Blood Oxygen Saturation 97.6 Jovanny Test ACCEPTAB Arterial Blood Gas Puncture Site Right Radial Arterial Blood Carboxyhemoglobin 0.3 Arterial Blood Date Drawn 03/18/2016 7:55:41 AM Arterial Blood Methemoglobin 0.2 Arterial Blood pCO2 (Temp correct) 38.6 Arterial Blood pH (Temp corrected) 7.391 Arterial Blood pO2 (Temp corrected) 115.1 H Blood Gas A-a O2 Differential 559.3 H Blood Gas Actual Respiration Rate 30 Blood Gas Low PEEP Setting 10.0 Blood Gas Modality VENT - AC Blood Gas Notified Time 03/18/2016 8:26:55 AM Blood Gas Notified Whom CW Blood Gas Respiration Rate 30.0 Blood Gas Specimen Source Blood arterial Blood Gas Temperature 37.0 Blood Gas Tidal Volume 550.0 FiO2 100.0 Oxyhemoglobin Percent 97.1 Total Hemoglobin 10.6 L Test 03/18/16 09:50 03/18/16 12:22 03/18/16 16:46 Hematocrit 20.3 L Hemoglobin 6.9 *L Bedside Glucose 121 Arterial Blood HCO3 25.4 Arterial Blood Base Excess 0.5 Arterial Blood Oxygen Saturation 91.1 L Jovanny Test ACCEPTAB Arterial Blood Gas Puncture Site Right Radial Arterial Blood Carboxyhemoglobin 0.3 Arterial Blood Date Drawn 03/18/2016 4:55:11 PM Arterial Blood Methemoglobin 0.2 Arterial Blood pCO2 (Temp correct) 42.1 Arterial Blood pH (Temp corrected) 7.398 Arterial Blood pO2 (Temp corrected) 65.3 L Blood Gas A-a O2 Differential 533.3 H Blood Gas Actual Respiration Rate 30 Blood Gas Low PEEP Setting 10.0 Blood Gas Modality VENT - AC Blood Gas Notified Time 03/18/2016 5:04:55 PM Blood Gas Notified Whom TM Blood Gas Respiration Rate 30.0 Blood Gas Specimen Source Blood arterial Blood Gas Temperature 37.0 Blood Gas Tidal Volume 550.0 FiO2 90.0 Oxyhemoglobin Percent 90.6 L Total Hemoglobin 7.2 L Medications Medications Current Medications Ondansetron HCl (Zofran Inj) 4 mg Q6H PRN IV NAUSEA AND/OR VOMITING; Start 02/18/16 at 09:30 Acetaminophen (Tylenol Supp) 650 mg Q4H PRN ND PAIN LEVEL 1-3 OR FEVER Last administered on 02/24/16at 14:32; Admin Dose 650 MG; Start 02/18/16 at 09:30 Morphine Sulfate (morphine) 2 mg Q4H PRN IV PAIN LEVEL 7-10 Last administered on 03/11/16at 16:13; Admin Dose 2 MG; Start 02/18/16 at 09:30 Bisacodyl (Dulcolax Supp) 10 mg DAILY PRN ND CONSTIPATION; Start 02/18/16 at 09 :30 Metoprolol Tartrate (Lopressor) 5 mg Q4H PRN IV HR>55 Hold SBP<100 Last administered on 03/17/16 00:21; Admin Dose 5 MG; Start 02/21/16 at 11:30 IV Flush (NS 10 ml) 10 ml PRN PRN IV IV PROTOCOL; Start 02/21/16 at 18:30 Ferrous Sulfate (Feosol Liquid Cup) 300 mg BID GTB Last administered on 10:28; Admin Dose 300 MG; Start 02/22/16 at 10:00 Lorazepam (Ativan) 1 mg Q1H PRN IV ANXIETY Last administered on 03/13/16 14: 10; Admin Dose 1 MG; Start 02/23/16 at 11:30 Miscellaneous Information 1 ea NOTE XX ; Start 02/23/16 at 23:15 Glucose (Glutose) 22.5 gm Q15M PRN PO DECREASED GLUCOSE; Start 02/23/16 at 23: 15 Dextrose (D50w Syringe) 50 ml Q15M PRN IV DECREASED GLUCOSE; Start 02/23/16 at 23:15 Glucagon (Glucagen) 1 mg Q15M PRN IM DECREASED GLUCOSE; Start 02/23/16 at 23:15 Glucose (Glutose) 15 gm Q15M PRN BUCCAL DECREASED GLUCOSE; Start 02/23/16 at 23 :15 Metoclopramide HCl (Reglan) 10 mg Q6 IV Last administered on 03/18/16 05:39; Admin Dose 10 MG; Start 03/04/16 at 06:00 Acetaminophen (Tylenol Tab) 650 mg Q6H PRN NGT PAIN AND OR ELEVATED TEMP Last administered on 03/13/16at 14:33; Admin Dose 650 MG; Start 03/06/16 at 11:30 Glucose (Glutose) 15 gm Q15M PRN NGT DECREASED GLUCOSE; Start 03/06/16 at 08: 45 Hydralazine HCl (Apresoline) 100 mg Q8 NGT Last administered on 03/16/16at 22: 53; Admin Dose 100 MG; Start 03/06/16 at 14:00 Metoprolol Tartrate (Lopressor) 150 mg Q8 NGT Last administered on 03/16/16at 22:52; Admin Dose 150 MG; Start 03/06/16 at 14:00 Hydralazine HCl (Apresoline) 10 mg Q4H PRN IV ELEVATED SYSTOLIC BP Last administered on 03/17/16 00:47; Admin Dose 10 MG; Start 03/06/16 at 16:00 Amlodipine Besylate (Norvasc) 10 mg DAILY PO Last administered on 03/14/16at 09 :52; Admin Dose 10 MG; Start 03/09/16 at 17:00 Minoxidil (Loniten) 10 mg BID NGT Last administered on 03/16/16at 20:28; Admin Dose 10 MG; Start 03/09/16 at 21:00 Insulin Aspart NOVOLOG *MODERATE* ALGORI... Q6 SC Last administered on 05:54; Admin Dose 2 UNIT; Start 03/10/16 at 06:00 Levetiracetam/ Dextrose (Keppra Iv/D5W) 115 ml @ 460 mls/hr Q12 IVPB Last administered on 03/18/16 10:28; Admin Dose 460 MLS/HR; Start 03/11/16 at 21:00 Diltiazem HCl (Cardizem) 90 mg Q8 PO Last administered on 03/16/16at 22:53; Admin Dose 90 MG; Start 03/12/16 at 14:00 Fluconazole 100 mg 100 mg DAILY PO Last administered on 03/18/16 10:28; Admin Dose 100 MG; Start 03/12/16 at 14:30 Piperacillin Sod/ Tazobactam Sod 50 ml @ 100 mls/hr Q8 IVPB Last administered on 03/18/16 14:24; Admin Dose 100 MLS/HR; Start 03/12/16 at 15:00 Fentanyl 1000 mcg/ Dextrose 100 ml @ 2.5 mls/hr TITRATE IV Last administered on 03/16/16at 21:04; Admin Dose 5 MLS/HR; Start 03/13/16 at 18:00 Pantoprazole/ Sodium Chloride (Protonix Iv/NS) 100 ml @ 10 mls/hr Q10H IV Last administered on 03/18/16 14:25; Admin Dose 10 MLS/HR; Start 03/14/16 at 10 :30 Sucralfate 1 gm 1 gm QID NGT Last administered on 03/18/16 12:23; Admin Dose 1 GM; Start 03/15/16 at 09:00 Midazolam HCl 50 mg/Dextrose 50 ml @ 0 mls/hr TITRATE IV Last administered on 02:08; Admin Dose 7 MLS/HR; Start 03/15/16 at 11:30 Esmolol HCl/ Sodium Chloride 250 ml @ 0 mls/hr TITRATE IV Last administered on 03/17/16 03:34; Admin Dose 31.2 MLS/HR; Start 03/17/16 at 02:00 Phenylephrine HCl 160 mg/Dextrose 500 ml @ 18.75 mls/ hr TITRATE IV Last administered on 03/17/16 08:09; Admin Dose 9.37 MLS/HR; Start 03/17/16 at 07:30 Dopamine HCl 1600 mg/Dextrose 250 ml @ 1.99 mls/hr TITRATE IV Last administered on 03/17/16 08:39; Admin Dose 1.99 MLS/HR; Start 03/17/16 at 07:30 Sodium Bicarbonate 150 meq/Dextrose/ Sodium Chloride 1,000 ml @ 100 mls/hr Q10H IV Last administered on 03/18/16 06:19; Admin Dose 100 MLS/HR; Start at 09:30 Norepinephrine/ Dextrose (Levophed/D5W) 500 ml @ 0 mls/hr TITRATE IV ; Start 03/17/16 at 23:00 KAYLYN RADFORD MD Mar 18, 2016 17:52
[2016-03-18 17:56] LABS: AADO2 Arterial 607.5 mmHg (7.0-24.0); Allen Test ACCEPTAB; Arterial Base Excess -0.7 mmol/L (-3.0-3); Arterial COHb 0.3 % (0.0-3.0); Arterial Fraction of Oxyhgb 80.6 % (93.0-99.0); Arterial HCO3 25.9 mmol/L (22.0-26.0); Arterial MetHb 0.3 % (0.0-1.5); Arterial Total Hemglobin 8.1 g/dl (12.0-18.0); MODE NASAL CANNULA
[2016-03-19] VITALS (103 sets, daily range): BP systolic 72–136; BP diastolic 29–71; PULSE 88–107; RESP 20–30
[2016-03-19] MEDS: METOCLOPRAMIDE 10 MG INJ IV SCH ×2 (01:08→05:32)
[2016-03-19] MEDS: INSULIN ASPART [NOVOLOG] 3 ML PEN SC SCH ×4 (01:11→17:37)
[2016-03-19] MEDS: ALBUTEROL HFA 8 GM INHALER INH SCH ×2 (01:33→08:16)
[2016-03-19] MEDS: METOPROLOL 100 MG TAB NGT SCH ×3 (05:19→22:00)
[2016-03-19] MEDS: DILTIAZEM 30 MG TAB PO SCH ×3 (05:20→22:00)
[2016-03-19] MEDS: FUROSEMIDE 20 MG INJ IV SCH (05:32)
[2016-03-19] MEDS: PIPER-TAZO 2.25 GM (PMX) 50 ML IVPB SCH ×3 (05:33→22:16)
[2016-03-19 05:59] LABS: HEMATOCRIT 19.9 % (42.0-52.0); MEAN CORPUSCULAR HEMOGLOBIN 27.7 pg (29.0-33.0); MEAN CORPUSCULAR HGB CONC 34.7 g/dl (32.0-37.0); MEAN CORPUSCULAR VOLUME 79.8 fl (82.0-101.0); MEAN PLATELET VOLUME 8.2 fl (7.4-10.4); PLATELET COUNT 270 10^3/UL (140-440); RED BLOOD COUNT 2.49 10^6/ul (4.70-6.10); RED CELL DISTRIBUTION WIDTH 17.7 % (11.5-14.5)
[2016-03-19 06:02] LABS: CONDITION 1; HEMOGLOBIN 6.9 g/dl (14.0-18.0); LH ANALYZER COMMENTS 1
[2016-03-19 06:46] LABS: POTASSIUM 3.1 mmol/L (3.5-5.1)
[2016-03-19 06:49] LABS: CALCIUM 7.7 mg/dl (8.4-10.2)
[2016-03-19 06:56] LABS: CREATININE 4.6 mg/dl (0.61-1.24)
[2016-03-19] MEDS: CALCIUM CARBONATE 500 MG CHEW TAB PO SCH ×2 (07:35→10:43)
[2016-03-19 07:36] LABS: EOSINOPHILS # 2.5 10^3/ul (0.0-0.5); LYMPHOCYTES # 1.4 10^3/ul (0.8-2.9); MONOCYTE # 0.2 10^3/ul (0.3-0.9); MYELOCYTES # 0.5; NEUTROPHIL # 15.9 10^3/ul (1.6-7.5)
[2016-03-19 07:37] LABS: ANISOCYTOSIS 1+; HYPOCHROMASIA 1+; MICROCYTOSIS 1+; PLATELET ESTIMATE PLT APPEAR ADEQUATE
[2016-03-19] MEDS: IPRATROPIUM (HFA) 12.9 GM INHALER INH SCH ×2 (08:16→16:30)
[2016-03-19] MEDS: SUCRALFATE (100 MG/ML) 10ML CUP NGT SCH ×2 (08:19→13:00)
[2016-03-19] MEDS: MINOXIDIL 10 MG TAB NGT SCH ×2 (08:19→21:00)
[2016-03-19] MEDS: AMLODIPINE 10 MG TAB PO SCH (08:19)
[2016-03-19] MEDS: FLUCONAZOLE 100 MG TAB PO SCH (08:19)
[2016-03-19] MEDS: LEVETIRACETAM IV 1,500 MG in DEXTROSE 5% 100 ML IVPB SCH ×2 (08:19→22:16)
[2016-03-19] MEDS: FERROUS SULFATE 60 MG/ML 5ML CUP GTB SCH ×2 (08:19→22:16)
--- NOTE | 2016-03-19 09:49 | CONS ---
Date/Time of Note Date/Time of Note DATE: 03/19/16 TIME: 09:47 Assessment/Plan Assessment/Plan Additional Assessment/Plan 1.HTN emergency-NL EF by echo this admit-now hypotensive s/p code blue on dopamine- now BP in stable range 2.Aortic dissection-type B again demonstrated by Chest CT 02/29/16- no intervention planned 3.abnl ecg-lateral TWI-negative troponin x 3 since admit 4.anxiety 5.ARF 6. Pericardial effusion by echo-small with NL EF- chronic 7.Encephalopathic-confirmed brain by EEG 03/17/16 8.Pulmonary embolism 9.Tachycardia-S tach-only when on sedation vacation 10.CHF-diastolic acute 11.Resp [id number] 12.Seizures-on keppra 13. Acute on chronic renal failure 14.GIB/anemia 15/ s/p PES arrest requiring ACLS protocol after having htn and then reciving esmolol with subsequent bradycardia and PEA -dispo per neuro Consultation Date/Type/Reason Admit Date/Time Feb 18, 2016 at 09:14 Type of Consultation: renal Referring Provider: MOSES HARRIS MD 24 HR Interval Summary Free Text/Dictation S/p CODE blue - dospo per neuro - BP stable ROS: No fever, no chills, no nausea, no vomiting, no diarrhea/constipation No recent weight changes No chest pain, no PND, no orthopnea No dizziness, blurred vision No thirst, no heat or cold intolerance (per nurse) Exam/Review of Systems Vital Signs Vitals Vital Signs Date Time Temp Pulse Resp B/P Pulse Ox O2 Delivery O2 Flow Rate FiO2 03/19/16 08:30 93 30 98/53 90 03/19/16 08:00 100 03/19/16 08:00 97.8 Mechanical Ventilator Intake and Output 03/18/16 03/18/16 03/19/16 15:00 23:00 07:00 Intake Total 1051 ml 745 ml 847 ml Output Total 0 ml 0 ml Balance 1051 ml 745 ml 847 ml Exam General: WN/WD/NAD, AOx 0 - unresponsive HEENT: Unicetric/atraumatic/EOMI (does not follow commands) NECK: JVD elevated, no thyromegaly, intub Lymph: no lymphadenopathy HEART: regular with no S3, II/ systolic murmur at apex LUNGS: Coarse sounds ABD: soft, NT, ND, +BS : Intact Neuro: non focal SKIN: chronic changes EXT: trace edema Results Result Diagram: 03/19/16 0430 03/19/16 0430 Results 24 hrs Laboratory Tests Test 03/18/16 09:50 03/18/16 12:22 03/18/16 16:46 03/18/16 17:38 Hematocrit 20.3 L Hemoglobin 6.9 *L Bedside Glucose 121 Arterial Blood HCO3 25.4 25.9 Arterial Blood Base Excess 0.5 -0.7 Arterial Blood Oxygen Saturation 91.1 L 81.1 L Jovanny Test ACCEPTAB ACCEPTAB Arterial Blood Gas Puncture Site Right Radial Right Radial Arterial Blood Carboxyhemoglobin 0.3 0.3 Arterial Blood Date Drawn 03/18/2016 4:55:11 PM 03/18/2016 5:45:26 PM Arterial Blood Methemoglobin 0.2 0.3 Arterial Blood pCO2 (Temp correct) 42.1 52.9 H Arterial Blood pH (Temp corrected) 7.398 7.307 L Arterial Blood pO2 (Temp corrected) 65.3 L 52.6 *L Blood Gas A-a O2 Differential 533.3 H 607.5 H Blood Gas Actual Respiration Rate 30 Blood Gas Low PEEP Setting 10.0 Blood Gas Modality VENT - AC NASAL CANNULA Blood Gas Notified Time 03/18/2016 5:04:55 PM 03/18/2016 5:56:32 PM Blood Gas Notified Whom KATYA KENNEDY Blood Gas Respiration Rate 30.0 Blood Gas Specimen Source Blood arterial Blood arterial Blood Gas Temperature 37.0 37.0 Blood Gas Tidal Volume 550.0 FiO2 90.0 100.0 Oxyhemoglobin Percent 90.6 L 80.6 L Total Hemoglobin 7.2 L 8.1 L Blood Gas Critical Value Read Back Felipa SYLVESTER RN Test 03/18/16 18:18 03/19/16 01:11 03/19/16 04:30 03/19/16 05:31 Bedside Glucose 127 110 125 Anion Gap 21 H Anisocytosis 1+ Band Neutrophils % 9.0 H Blood Morphology Comment Blood Urea Nitrogen 79 H Calcium Level 7.7 L Carbon Dioxide Level 31 Chloride Level 97 Creatinine 4.60 H Eosinophils # 2.5 H Eosinophils % 11.0 H Glucose Level 281 #H Hematocrit 19.9 L Hemoglobin 6.9 *L Hypochromasia 1+ Lymphocytes # 1.4 Lymphocytes % 6.0 L Mean Corpuscular Hemoglobin 27.7 L Mean Corpuscular Hemoglobin Concent 34.7 Mean Corpuscular Volume 79.8 L Mean Platelet Volume 8.2 Metamyelocytes # 0.5 Metamyelocytes % 2.0 H Microcytosis 1+ Monocytes # 0.2 L Monocytes % 1.0 Myelocytes # 0.5 Myelocytes % 2.0 H Neutrophils # 15.9 H Neutrophils % 69.0 Platelet Count 270 Platelet Estimate PLT APPEAR ADEQUATE Potassium Level 3.1 L Red Blood Count 2.49 L Red Cell Distribution Width 17.7 H Sodium Level 146 H White Blood Count 23.0 H Medications Medications Current Medications Ondansetron HCl (Zofran Inj) 4 mg Q6H PRN IV NAUSEA AND/OR VOMITING; Start 02/18/16 at 09:30 Acetaminophen (Tylenol Supp) 650 mg Q4H PRN NV PAIN LEVEL 1-3 OR FEVER Last administered on 02/24/16at 14:32; Admin Dose 650 MG; Start 02/18/16 at 09:30 Morphine Sulfate (morphine) 2 mg Q4H PRN IV PAIN LEVEL 7-10 Last administered on 03/11/16at 16:13; Admin Dose 2 MG; Start 02/18/16 at 09:30 Bisacodyl (Dulcolax Supp) 10 mg DAILY PRN NV CONSTIPATION; Start 02/18/16 at 09 :30 Metoprolol Tartrate (Lopressor) 5 mg Q4H PRN IV HR>55 Hold SBP<100 Last administered on 03/17/16 00:21; Admin Dose 5 MG; Start 02/21/16 at 11:30 IV Flush (NS 10 ml) 10 ml PRN PRN IV IV PROTOCOL; Start 02/21/16 at 18:30 Ferrous Sulfate (Feosol Liquid Cup) 300 mg BID GTB Last administered on 08:19; Admin Dose 300 MG; Start 02/22/16 at 10:00 Lorazepam (Ativan) 1 mg Q1H PRN IV ANXIETY Last administered on 03/13/16at 14: 10; Admin Dose 1 MG; Start 02/23/16 at 11:30 Miscellaneous Information 1 ea NOTE XX ; Start 02/23/16 at 23:15 Glucose (Glutose) 22.5 gm Q15M PRN PO DECREASED GLUCOSE; Start 02/23/16 at 23: 15 Dextrose (D50w Syringe) 50 ml Q15M PRN IV DECREASED GLUCOSE; Start 02/23/16 at 23:15 Glucagon (Glucagen) 1 mg Q15M PRN IM DECREASED GLUCOSE; Start 02/23/16 at 23:15 Glucose (Glutose) 15 gm Q15M PRN BUCCAL DECREASED GLUCOSE; Start 02/23/16 at 23 :15 Metoclopramide HCl (Reglan) 10 mg Q6 IV Last administered on 03/19/16 05:32; Admin Dose 10 MG; Start 03/04/16 at 06:00 Acetaminophen (Tylenol Tab) 650 mg Q6H PRN NGT PAIN AND OR ELEVATED TEMP Last administered on 03/13/16at 14:33; Admin Dose 650 MG; Start 03/06/16 at 11:30 Glucose (Glutose) 15 gm Q15M PRN NGT DECREASED GLUCOSE; Start 03/06/16 at 08: 45 Hydralazine HCl (Apresoline) 100 mg Q8 NGT Last administered on 03/16/16at 22: 53; Admin Dose 100 MG; Start 03/06/16 at 14:00 Metoprolol Tartrate (Lopressor) 150 mg Q8 NGT Last administered on 03/16/16at 22:52; Admin Dose 150 MG; Start 03/06/16 at 14:00 Hydralazine HCl (Apresoline) 10 mg Q4H PRN IV ELEVATED SYSTOLIC BP Last administered on 03/17/16 00:47; Admin Dose 10 MG; Start 03/06/16 at 16:00 Amlodipine Besylate (Norvasc) 10 mg DAILY PO Last administered on 03/14/16at 09 :52; Admin Dose 10 MG; Start 03/09/16 at 17:00 Minoxidil (Loniten) 10 mg BID NGT Last administered on 03/16/16at 20:28; Admin Dose 10 MG; Start 03/09/16 at 21:00 Insulin Aspart NOVOLOG *MODERATE* ALGORI... Q6 SC Last administered on 05:54; Admin Dose 2 UNIT; Start 03/10/16 at 06:00 Levetiracetam/ Dextrose (Keppra Iv/D5W) 115 ml @ 460 mls/hr Q12 IVPB Last administered on 03/19/16 08:19; Admin Dose 460 MLS/HR; Start 03/11/16 at 21:00 Diltiazem HCl (Cardizem) 90 mg Q8 PO Last administered on 03/16/16at 22:53; Admin Dose 90 MG; Start 03/12/16 at 14:00 Fluconazole 100 mg 100 mg DAILY PO Last administered on 03/19/16 08:19; Admin Dose 100 MG; Start 03/12/16 at 14:30 Piperacillin Sod/ Tazobactam Sod 50 ml @ 100 mls/hr Q8 IVPB Last administered on 03/19/16 05:33; Admin Dose 100 MLS/HR; Start 03/12/16 at 15:00 Fentanyl 1000 mcg/ Dextrose 100 ml @ 2.5 mls/hr TITRATE IV Last administered on 03/16/16at 21:04; Admin Dose 5 MLS/HR; Start 03/13/16 at 18:00 Pantoprazole/ Sodium Chloride (Protonix Iv/NS) 100 ml @ 10 mls/hr Q10H IV Last administered on 03/18/16 23:57; Admin Dose 10 MLS/HR; Start 03/14/16 at 10 :30 Sucralfate 1 gm 1 gm QID NGT Last administered on 03/19/16 08:19; Admin Dose 1 GM; Start 03/15/16 at 09:00 Midazolam HCl 50 mg/Dextrose 50 ml @ 0 mls/hr TITRATE IV Last administered on 02:08; Admin Dose 7 MLS/HR; Start 03/15/16 at 11:30 Esmolol HCl/ Sodium Chloride 250 ml @ 0 mls/hr TITRATE IV Last administered on 03/17/16 03:34; Admin Dose 31.2 MLS/HR; Start 03/17/16 at 02:00 Phenylephrine HCl 160 mg/Dextrose 500 ml @ 18.75 mls/ hr TITRATE IV Last administered on 03/17/16 08:09; Admin Dose 9.37 MLS/HR; Start 03/17/16 at 07:30 Dopamine HCl 1600 mg/Dextrose 250 ml @ 1.99 mls/hr TITRATE IV Last administered on 03/17/16 08:39; Admin Dose 1.99 MLS/HR; Start 03/17/16 at 07:30 Sodium Bicarbonate 150 meq/Dextrose/ Sodium Chloride 1,000 ml @ 100 mls/hr Q10H IV Last administered on 03/18/16 22:19; Admin Dose 100 MLS/HR; Start at 09:30 Norepinephrine/ Dextrose (Levophed/D5W) 500 ml @ 0 mls/hr TITRATE IV ; Start 03/17/16 at 23:00 DERRICK DREW MD Mar 19, 2016 09:49
--- NOTE | 2016-03-19 09:58 | CONS ---
Date/Time of Note Date/Time of Note DATE: 03/19/16 TIME: 09:56 Consult Date/Type/Reason Admit Date/Time Feb 18, 2016 at 09:14 Type of Consultation: pulmonary Ordering Provider: MOSES HARRIS MD Subjective Patient remains unresponsive on mechanical ventilation No gag reflex Pupils fixed and dilated No Spontaneous respiratory effort No response to stimuli Objective Vital Signs Date Time Temp Pulse Resp B/P Pulse Ox O2 Delivery O2 Flow Rate FiO2 03/19/16 08:30 93 30 98/53 90 03/19/16 08:00 100 03/19/16 08:00 97.8 Mechanical Ventilator Intake and Output 03/18/16 03/18/16 03/19/16 15:00 23:00 07:00 Intake Total 1051 ml 745 ml 847 ml Output Total 0 ml 0 ml Balance 1051 ml 745 ml 847 ml PHYSICAL EXAMINATION GENERAL: Well-nourished well-developed gentleman intubated on mechanical ventilation sedation VITAL SIGNS: see below. HEENT: Pupils equal, round, unreactive CARDIAC: S1, S2, CHEST: Diminished air entry bilaterally. Few rales bilaterally ABDOMEN: Mildly distended. Obese soft nontender no guarding or rebound EXTREMITIES: No cyanosis, clubbing edema +2 NEUROLOGIC: Unable to assess Results/Medications Result Diagram: 03/19/16 0430 03/19/16 0430 Results 24 hrs Laboratory Tests Test 03/18/16 12:22 03/18/16 16:46 03/18/16 17:38 03/18/16 18:18 Bedside Glucose 121 127 Arterial Blood HCO3 25.4 25.9 Arterial Blood Base Excess 0.5 -0.7 Arterial Blood Oxygen Saturation 91.1 L 81.1 L Jovanny Test ACCEPTAB ACCEPTAB Arterial Blood Gas Puncture Site Right Radial Right Radial Arterial Blood Carboxyhemoglobin 0.3 0.3 Arterial Blood Date Drawn 03/18/2016 4:55:11 PM 03/18/2016 5:45:26 PM Arterial Blood Methemoglobin 0.2 0.3 Arterial Blood pCO2 (Temp correct) 42.1 52.9 H Arterial Blood pH (Temp corrected) 7.398 7.307 L Arterial Blood pO2 (Temp corrected) 65.3 L 52.6 *L Blood Gas A-a O2 Differential 533.3 H 607.5 H Blood Gas Actual Respiration Rate 30 Blood Gas Low PEEP Setting 10.0 Blood Gas Modality VENT - AC NASAL CANNULA Blood Gas Notified Time 03/18/2016 5:04:55 PM 03/18/2016 5:56:32 PM Blood Gas Notified Whom KATYA MARCIA Blood Gas Respiration Rate 30.0 Blood Gas Specimen Source Blood arterial Blood arterial Blood Gas Temperature 37.0 37.0 Blood Gas Tidal Volume 550.0 FiO2 90.0 100.0 Oxyhemoglobin Percent 90.6 L 80.6 L Total Hemoglobin 7.2 L 8.1 L Blood Gas Critical Value Read Back Felipa SYLVESTER RN Test 03/19/16 01:11 03/19/16 04:30 03/19/16 05:31 Bedside Glucose 110 125 Anion Gap 21 H Anisocytosis 1+ Band Neutrophils % 9.0 H Blood Morphology Comment Blood Urea Nitrogen 79 H Calcium Level 7.7 L Carbon Dioxide Level 31 Chloride Level 97 Creatinine 4.60 H Eosinophils # 2.5 H Eosinophils % 11.0 H Glucose Level 281 #H Hematocrit 19.9 L Hemoglobin 6.9 *L Hypochromasia 1+ Lymphocytes # 1.4 Lymphocytes % 6.0 L Mean Corpuscular Hemoglobin 27.7 L Mean Corpuscular Hemoglobin Concent 34.7 Mean Corpuscular Volume 79.8 L Mean Platelet Volume 8.2 Metamyelocytes # 0.5 Metamyelocytes % 2.0 H Microcytosis 1+ Monocytes # 0.2 L Monocytes % 1.0 Myelocytes # 0.5 Myelocytes % 2.0 H Neutrophils # 15.9 H Neutrophils % 69.0 Platelet Count 270 Platelet Estimate PLT APPEAR ADEQUATE Potassium Level 3.1 L Red Blood Count 2.49 L Red Cell Distribution Width 17.7 H Sodium Level 146 H White Blood Count 23.0 H Medications Current Medications Ondansetron HCl (Zofran Inj) 4 mg Q6H PRN IV NAUSEA AND/OR VOMITING; Start 02/18/16 at 09:30 Acetaminophen (Tylenol Supp) 650 mg Q4H PRN ME PAIN LEVEL 1-3 OR FEVER Last administered on 02/24/16at 14:32; Admin Dose 650 MG; Start 02/18/16 at 09:30 Morphine Sulfate (morphine) 2 mg Q4H PRN IV PAIN LEVEL 7-10 Last administered on 03/11/16at 16:13; Admin Dose 2 MG; Start 02/18/16 at 09:30 Bisacodyl (Dulcolax Supp) 10 mg DAILY PRN ME CONSTIPATION; Start 02/18/16 at 09 :30 Metoprolol Tartrate (Lopressor) 5 mg Q4H PRN IV HR>55 Hold SBP<100 Last administered on 03/17/16 00:21; Admin Dose 5 MG; Start 02/21/16 at 11:30 IV Flush (NS 10 ml) 10 ml PRN PRN IV IV PROTOCOL; Start 02/21/16 at 18:30 Ferrous Sulfate (Feosol Liquid Cup) 300 mg BID GTB Last administered on 08:19; Admin Dose 300 MG; Start 02/22/16 at 10:00 Lorazepam (Ativan) 1 mg Q1H PRN IV ANXIETY Last administered on 03/13/16at 14: 10; Admin Dose 1 MG; Start 02/23/16 at 11:30 Miscellaneous Information 1 ea NOTE XX ; Start 02/23/16 at 23:15 Glucose (Glutose) 22.5 gm Q15M PRN PO DECREASED GLUCOSE; Start 02/23/16 at 23: 15 Dextrose (D50w Syringe) 50 ml Q15M PRN IV DECREASED GLUCOSE; Start 02/23/16 at 23:15 Glucagon (Glucagen) 1 mg Q15M PRN IM DECREASED GLUCOSE; Start 02/23/16 at 23:15 Glucose (Glutose) 15 gm Q15M PRN BUCCAL DECREASED GLUCOSE; Start 02/23/16 at 23 :15 Metoclopramide HCl (Reglan) 10 mg Q6 IV Last administered on 03/19/16 05:32; Admin Dose 10 MG; Start 03/04/16 at 06:00 Acetaminophen (Tylenol Tab) 650 mg Q6H PRN NGT PAIN AND OR ELEVATED TEMP Last administered on 03/13/16at 14:33; Admin Dose 650 MG; Start 03/06/16 at 11:30 Glucose (Glutose) 15 gm Q15M PRN NGT DECREASED GLUCOSE; Start 03/06/16 at 08: 45 Hydralazine HCl (Apresoline) 100 mg Q8 NGT Last administered on 03/16/16at 22: 53; Admin Dose 100 MG; Start 03/06/16 at 14:00 Metoprolol Tartrate (Lopressor) 150 mg Q8 NGT Last administered on 03/16/16 22:52; Admin Dose 150 MG; Start 03/06/16 at 14:00 Hydralazine HCl (Apresoline) 10 mg Q4H PRN IV ELEVATED SYSTOLIC BP Last administered on 03/17/16 00:47; Admin Dose 10 MG; Start 03/06/16 at 16:00 Amlodipine Besylate (Norvasc) 10 mg DAILY PO Last administered on 03/14/16 09 :52; Admin Dose 10 MG; Start 03/09/16 at 17:00 Minoxidil (Loniten) 10 mg BID NGT Last administered on 03/16/16 20:28; Admin Dose 10 MG; Start 03/09/16 at 21:00 Insulin Aspart NOVOLOG *MODERATE* ALGORI... Q6 SC Last administered on 05:54; Admin Dose 2 UNIT; Start 03/10/16 at 06:00 Levetiracetam/ Dextrose (Keppra Iv/D5W) 115 ml @ 460 mls/hr Q12 IVPB Last administered on 03/19/16 08:19; Admin Dose 460 MLS/HR; Start 03/11/16 at 21:00 Diltiazem HCl (Cardizem) 90 mg Q8 PO Last administered on 03/16/16 22:53; Admin Dose 90 MG; Start 03/12/16 at 14:00 Fluconazole 100 mg 100 mg DAILY PO Last administered on 03/19/16 08:19; Admin Dose 100 MG; Start 03/12/16 at 14:30 Piperacillin Sod/ Tazobactam Sod 50 ml @ 100 mls/hr Q8 IVPB Last administered on 03/19/16 05:33; Admin Dose 100 MLS/HR; Start 03/12/16 at 15:00 Fentanyl 1000 mcg/ Dextrose 100 ml @ 2.5 mls/hr TITRATE IV Last administered on 03/16/16 21:04; Admin Dose 5 MLS/HR; Start 03/13/16 at 18:00 Pantoprazole/ Sodium Chloride (Protonix Iv/NS) 100 ml @ 10 mls/hr Q10H IV Last administered on 03/18/16 23:57; Admin Dose 10 MLS/HR; Start 03/14/16 at 10 :30 Sucralfate 1 gm 1 gm QID NGT Last administered on 03/19/16 08:19; Admin Dose 1 GM; Start 03/15/16 at 09:00 Midazolam HCl 50 mg/Dextrose 50 ml @ 0 mls/hr TITRATE IV Last administered on 02:08; Admin Dose 7 MLS/HR; Start 03/15/16 at 11:30 Esmolol HCl/ Sodium Chloride 250 ml @ 0 mls/hr TITRATE IV Last administered on 03/17/16 03:34; Admin Dose 31.2 MLS/HR; Start 03/17/16 at 02:00 Phenylephrine HCl 160 mg/Dextrose 500 ml @ 18.75 mls/ hr TITRATE IV Last administered on 03/17/16 08:09; Admin Dose 9.37 MLS/HR; Start 03/17/16 at 07:30 Dopamine HCl 1600 mg/Dextrose 250 ml @ 1.99 mls/hr TITRATE IV Last administered on 03/17/16 08:39; Admin Dose 1.99 MLS/HR; Start 03/17/16 at 07:30 Sodium Bicarbonate 150 meq/Dextrose/ Sodium Chloride 1,000 ml @ 100 mls/hr Q10H IV Last administered on 03/18/16 22:19; Admin Dose 100 MLS/HR; Start at 09:30 Norepinephrine/ Dextrose (Levophed/D5W) 500 ml @ 0 mls/hr TITRATE IV ; Start 03/17/16 at 23:00 Assessment/Plan Chief Complaint/Hosp Course IMPRESSION 1. Status post Hypertensive Emergency 2. Type B Aortic Dissection. No evidence on proximal dissection on recent CT neck and chest, 3. Encephalopathy, possibly secondary to antihypertensive medications. 4. Aspiration pneumonia versus healthcare associated pneumonia requiring reintubation, chest x-ray suggestive of ARDS 5. Pulmonary embolus 6. Renal failure now requiring hemodialysis 7. Anemia evidence of GI bleed 8. Cardiopulmonary arrest eeg consistent with brain RECS: 1. Vent support. 2. Blood pressure control decrease vasopressors as tolerated 3. neuro recs 4. Palliative care recs Examination and findings consistent with brain Palliative care recommendations regarding removal of life support Problems: ANAYA BREWSTER MD, [facility] Mar 19, 2016 09:57
[2016-03-19] MEDS: PANTOPRAZOLE IV 80 MG in SOD CHLORIDE 0.9% 100 ML IV SCH ×2 (10:08→19:44)
--- NOTE | 2016-03-19 10:08 | CONS ---
DATE OF ADMISSION: 02/18/2016 DATE OF CONSULTATION: 03/19/2016 TYPE OF CONSULTATION: Palliative care. REFERRING CLINICIAN: Madi Dailey NP HISTORY OF PRESENT ILLNESS: This is a 45-year-old gentleman who is in the intensive care unit at [facility] status post cardiac arrest with encephalopathy. The patient required ini tiation of ACLS after PEA and has been encephalopathic since that time. He has a history of type B aortic dissection, which is nonsurgical at this time per vascular surgery. He is intubated, being t reated with broad spectrum IV antibiotic coverage, close attention to fluid and electrolyte abnormal ities. The patient has been seen by neuro consultation to evaluate his ongoing encephalopathy. On 03/17/2016, Dr. Allan consulted and ordered an EEG. Results are, this is an abnormal EEG because o f no clear identifiable electrical activity consistent with brain . Please correlate these fin dings with cerebral blood flow study, apnea test and cold caloric test. MEDICATIONS: Please refer to reconciliation sheets. ALLERGIES: NO KNOWN DRUG ALLERGIES. MAJOR MEDICAL PROBLEMS IN THE PAST: Pertinent to this consultation, please refer to history of pres ent illness. SOCIAL HISTORY: Unknown. FAMILY HISTORY: Unknown. REVIEW OF SYSTEMS: Cannot be obtained. PHYSICAL EXAMINATION: GENERAL: Shows a well-nourished, well-developed male, nonresponsive to any verbal or tactile stimul ation. VITAL SIGNS: Blood pressure 108/60, pulse 94 and regular, respirations of 30, vented, pulse oximetr y 89 on 100% FIO2. HEENT: He is normocephalic and atraumatic. Anicteric, acyanotic. CHEST: Shows inspiratory and expiratory rhonchi. COR: S1, S2, without S3, S4, murmur, gallop, rub. Normal rate, normal rhythm. ABDOMEN: Grossly benign, nondistended, nonrigid. NEUROLOGIC: He has no oculocephalics, no corneal pupillary light reflex, doll's eyes. He has no ga g response. SKIN: There is no spontaneous movement of the upper or lower extremities on examination. Examination done off sedation. ASSESSMENT AND PLAN: This is an unfortunate 45-year-old gentleman who sustained a neurological inju ry post-cardiac arrest. He is in the intensive care unit at [facility] and neurol ogy recommendations have been reviewed. There are family members, a brother and a fiance. Mother elvis rosas on the [facility] and has not been able to visit [place], but 1 sister has been in [facility] while he has been in the intensive care unit. An EEG shows no evidence of electrical activity; ho verónica, neurology consultation has recommended a confirmatory examination. We will order those apnea tests this evening. If the patient is clinically brain , then unfortunately there is no altern ative but to discontinue current level of care. Unfortunately, family members would not have an option of allowing patient to live in this condition indefinitely. After above test is completed, we will contact the patient's mother, who is the next surrogate decision maker legally. However, consideration and compassion will be given to first deg ree relatives also live in [place]. The patient's code status will be changed to DO NOT RESUSCIT ATE if confirmatory examinations are still consistent with irreversible brain . We will discus sed with medical consultants. Dictated By: CORNELIUS HUYNH MD, LP/EFRAIN Conf#: [id number] DID#: [id number]
[2016-03-19] MEDS: SODIUM BICARBONATE IV SCH ×2 (10:38→20:58)
[2016-03-19] MEDS: NACL IV SCH ×2 (10:38→20:58)
[2016-03-19] MEDS: DEXTROSE IV SCH ×2 (10:38→20:58)
--- NOTE | 2016-03-19 11:14 | PN ---
Date/Time of Note Date/Time of Note DATE: 03/19/16 TIME: 11:10 Assessment/Plan VTE Prophylaxis VTE Prophylaxis Intervention: SCD's Lines/Catheters IV [facility] DAMON Urinary Cath still in place: Yes Assessment/Plan Chief Complaint/Hosp Course Assessment and plan 1. Cardiac arrest with encephalopathy. Patient noted with pulseless electrical activity with initiation of ACLS on 03/17/2016. Cardiology following.Of note, patient did have repeat EEG done on March 17, 2016 that showed no clear identifiable electrical activity consistent with brain . Discussed with patient's family (mother, brother: Ricki, sister: Bismark) 2. Type B aortic dissection. Continue blood pressure control. Continue ICU monitoring. No plan for surgical intervention per vascular surgeon recommendations. 3. Accelerated hypertension. Continue antihypertensives/vasopressors per cardiology. 3. Acute hypoxic respiratory failure. Ey secondary to aspiration. Continue ventilator support as per pulmonary. The patient was extubated and then re- intubated. 4. Aspiration pneumonia. Continue antibiotics as per infectious diseases. 5. Acute kidney injury, most probably secondary to hemodynamics. Nephrology following. Use nephrotoxic drugs with caution. The patient was newly started on hemodialysis on 03/15/2016. 6. Left cephalic vein thrombosis. Was on therapeutic anticoagulation. However due to worsening anemia heparin is held 7. Pulmonary embolism (02/29/2016). Was on therapeutic anticoagulation with heparin gtt. however due to worsening anemia heparin was held 8. Microcytic hypochromic anemia. Continue on iron supplement. Transfuse PRBC as needed. Initial. 9. Acute encephalopathy, most probably metabolic in origin. Electroencephalography showing background slowing suggesting bihemispheric subcortical dysfunction, possibly epileptiform activity. Patient with cardiac arrest in 03/17/2016. Latest EEG with clinical picture of brain . Family made aware. 10. GI bleeding. Heparin drip on hold. Continue on Protonix per gastric elastic attacher overlock 12. Severe combined metabolic and respiratory acidosis. Continue insulin bicarbonate Deep venous thrombosis prophylaxis. Bilateral SCDs. Gastrointestinal prophylaxis. Proton pump inhibitors. Disposition and plan: Patient with previous EEG with clinical picture of brain . Discussed in detail with patient's mother/brother: Ricki/sister: Bismark. Overall prognosis is poor. 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 We'll discuss with patient's family about CODE STATUS. Continue palliative care physician input Discussed plan of care with Dr. gil Critical care time: 30 minutes Problems: Subjective 24 Hr Interval Summary Free Text/Dictation Remains intubated. No apparent distress at this time. Exam/Review of Systems Vital Signs Vitals Vital Signs Date Time Temp Pulse Resp B/P Pulse Ox O2 Delivery O2 Flow Rate FiO2 03/19/16 11:00 100 30 115/60 89 Mechanical Ventilator 03/19/16 08:00 100 03/19/16 08:00 97.8 Intake and Output 03/18/16 03/18/16 03/19/16 15:00 23:00 07:00 Intake Total 1051 ml 745 ml 961.98 ml Output Total 0 ml 0 ml Balance 1051 ml 745 ml 961.98 ml Exam General: Intubated and sedated. Eyes: Pupils dilated. Anicteric sclera Neck: Supple nontender, no JVD Cardiac: S1, S2 auscultated, regular rhythm and rate Pulmonary: Diminished at lung bases GI: Soft, NG tube in place Extremities: Edema noted bilateral upper and lower extremities +2-3 Skin: Clean dry and intact Neurologic: Remains intubated. No purposeful response Results Result Diagram: 03/19/16 0430 03/19/16 0430 Results 24 hrs Laboratory Tests Test 03/18/16 12:22 03/18/16 16:46 03/18/16 17:38 03/18/16 18:18 Bedside Glucose 121 127 Arterial Blood HCO3 25.4 25.9 Arterial Blood Base Excess 0.5 -0.7 Arterial Blood Oxygen Saturation 91.1 L 81.1 L Jovanny Test ACCEPTAB ACCEPTAB Arterial Blood Gas Puncture Site Right Radial Right Radial Arterial Blood Carboxyhemoglobin 0.3 0.3 Arterial Blood Date Drawn 03/18/2016 4:55:11 PM 03/18/2016 5:45:26 PM Arterial Blood Methemoglobin 0.2 0.3 Arterial Blood pCO2 (Temp correct) 42.1 52.9 H Arterial Blood pH (Temp corrected) 7.398 7.307 L Arterial Blood pO2 (Temp corrected) 65.3 L 52.6 *L Blood Gas A-a O2 Differential 533.3 H 607.5 H Blood Gas Actual Respiration Rate 30 Blood Gas Low PEEP Setting 10.0 Blood Gas Modality VENT - AC NASAL CANNULA Blood Gas Notified Time 03/18/2016 5:04:55 PM 03/18/2016 5:56:32 PM Blood Gas Notified Whom KATYA KENNEDY Blood Gas Respiration Rate 30.0 Blood Gas Specimen Source Blood arterial Blood arterial Blood Gas Temperature 37.0 37.0 Blood Gas Tidal Volume 550.0 FiO2 90.0 100.0 Oxyhemoglobin Percent 90.6 L 80.6 L Total Hemoglobin 7.2 L 8.1 L Blood Gas Critical Value Read Back Felipa SYLVESTER RN Test 03/19/16 01:11 03/19/16 04:30 03/19/16 05:31 Bedside Glucose 110 125 Anion Gap 21 H Anisocytosis 1+ Band Neutrophils % 9.0 H Blood Morphology Comment Blood Urea Nitrogen 79 H Calcium Level 7.7 L Carbon Dioxide Level 31 Chloride Level 97 Creatinine 4.60 H Eosinophils # 2.5 H Eosinophils % 11.0 H Glucose Level 281 #H Hematocrit 19.9 L Hemoglobin 6.9 *L Hypochromasia 1+ Lymphocytes # 1.4 Lymphocytes % 6.0 L Mean Corpuscular Hemoglobin 27.7 L Mean Corpuscular Hemoglobin Concent 34.7 Mean Corpuscular Volume 79.8 L Mean Platelet Volume 8.2 Metamyelocytes # 0.5 Metamyelocytes % 2.0 H Microcytosis 1+ Monocytes # 0.2 L Monocytes % 1.0 Myelocytes # 0.5 Myelocytes % 2.0 H Neutrophils # 15.9 H Neutrophils % 69.0 Platelet Count 270 Platelet Estimate PLT APPEAR ADEQUATE Potassium Level 3.1 L Red Blood Count 2.49 L Red Cell Distribution Width 17.7 H Sodium Level 146 H White Blood Count 23.0 H Medications Medications Current Medications Ondansetron HCl (Zofran Inj) 4 mg Q6H PRN IV NAUSEA AND/OR VOMITING; Start 02/18/16 at 09:30 Acetaminophen (Tylenol Supp) 650 mg Q4H PRN ND PAIN LEVEL 1-3 OR FEVER Last administered on 02/24/16at 14:32; Admin Dose 650 MG; Start 02/18/16 at 09:30 Morphine Sulfate (morphine) 2 mg Q4H PRN IV PAIN LEVEL 7-10 Last administered on 03/11/16at 16:13; Admin Dose 2 MG; Start 02/18/16 at 09:30 Bisacodyl (Dulcolax Supp) 10 mg DAILY PRN ND CONSTIPATION; Start 02/18/16 at 09 :30 Metoprolol Tartrate (Lopressor) 5 mg Q4H PRN IV HR>55 Hold SBP<100 Last administered on 03/17/16 00:21; Admin Dose 5 MG; Start 02/21/16 at 11:30 IV Flush (NS 10 ml) 10 ml PRN PRN IV IV PROTOCOL; Start 02/21/16 at 18:30 Ferrous Sulfate (Feosol Liquid Cup) 300 mg BID GTB Last administered on 08:19; Admin Dose 300 MG; Start 02/22/16 at 10:00 Lorazepam (Ativan) 1 mg Q1H PRN IV ANXIETY Last administered on 03/13/16at 14: 10; Admin Dose 1 MG; Start 02/23/16 at 11:30 Miscellaneous Information 1 ea NOTE XX ; Start 02/23/16 at 23:15 Glucose (Glutose) 22.5 gm Q15M PRN PO DECREASED GLUCOSE; Start 02/23/16 at 23: 15 Dextrose (D50w Syringe) 50 ml Q15M PRN IV DECREASED GLUCOSE; Start 02/23/16 at 23:15 Glucagon (Glucagen) 1 mg Q15M PRN IM DECREASED GLUCOSE; Start 02/23/16 at 23:15 Glucose (Glutose) 15 gm Q15M PRN BUCCAL DECREASED GLUCOSE; Start 02/23/16 at 23 :15 Metoclopramide HCl (Reglan) 10 mg Q6 IV Last administered on 03/19/16 05:32; Admin Dose 10 MG; Start 03/04/16 at 06:00 Acetaminophen (Tylenol Tab) 650 mg Q6H PRN NGT PAIN AND OR ELEVATED TEMP Last administered on 03/13/16at 14:33; Admin Dose 650 MG; Start 03/06/16 at 11:30 Glucose (Glutose) 15 gm Q15M PRN NGT DECREASED GLUCOSE; Start 03/06/16 at 08: 45 Hydralazine HCl (Apresoline) 100 mg Q8 NGT Last administered on 03/16/16at 22: 53; Admin Dose 100 MG; Start 03/06/16 at 14:00 Metoprolol Tartrate (Lopressor) 150 mg Q8 NGT Last administered on 03/16/16at 22:52; Admin Dose 150 MG; Start 03/06/16 at 14:00 Hydralazine HCl (Apresoline) 10 mg Q4H PRN IV ELEVATED SYSTOLIC BP Last administered on 03/17/16 00:47; Admin Dose 10 MG; Start 03/06/16 at 16:00 Amlodipine Besylate (Norvasc) 10 mg DAILY PO Last administered on 03/14/16at 09 :52; Admin Dose 10 MG; Start 03/09/16 at 17:00 Minoxidil (Loniten) 10 mg BID NGT Last administered on 03/16/16at 20:28; Admin Dose 10 MG; Start 03/09/16 at 21:00 Insulin Aspart NOVOLOG *MODERATE* ALGORI... Q6 SC Last administered on 05:54; Admin Dose 2 UNIT; Start 03/10/16 at 06:00 Levetiracetam/ Dextrose (Keppra Iv/D5W) 115 ml @ 460 mls/hr Q12 IVPB Last administered on 03/19/16 08:19; Admin Dose 460 MLS/HR; Start 03/11/16 at 21:00 Diltiazem HCl (Cardizem) 90 mg Q8 PO Last administered on 03/16/16at 22:53; Admin Dose 90 MG; Start 03/12/16 at 14:00 Fluconazole 100 mg 100 mg DAILY PO Last administered on 03/19/16 08:19; Admin Dose 100 MG; Start 03/12/16 at 14:30 Piperacillin Sod/ Tazobactam Sod 50 ml @ 100 mls/hr Q8 IVPB Last administered on 03/19/16 05:33; Admin Dose 100 MLS/HR; Start 03/12/16 at 15:00 Fentanyl 1000 mcg/ Dextrose 100 ml @ 2.5 mls/hr TITRATE IV Last administered on 03/16/16at 21:04; Admin Dose 5 MLS/HR; Start 03/13/16 at 18:00 Pantoprazole/ Sodium Chloride (Protonix Iv/NS) 100 ml @ 10 mls/hr Q10H IV Last administered on 03/19/16 10:08; Admin Dose 10 MLS/HR; Start 03/14/16 at 10 :30 Sucralfate 1 gm 1 gm QID NGT Last administered on 03/19/16 08:19; Admin Dose 1 GM; Start 03/15/16 at 09:00 Midazolam HCl 50 mg/Dextrose 50 ml @ 0 mls/hr TITRATE IV Last administered on 02:08; Admin Dose 7 MLS/HR; Start 03/15/16 at 11:30 Esmolol HCl/ Sodium Chloride 250 ml @ 0 mls/hr TITRATE IV Last administered on 03/17/16 03:34; Admin Dose 31.2 MLS/HR; Start 03/17/16 at 02:00 Phenylephrine HCl 160 mg/Dextrose 500 ml @ 18.75 mls/ hr TITRATE IV Last administered on 03/17/16 08:09; Admin Dose 9.37 MLS/HR; Start 03/17/16 at 07:30 Dopamine HCl 1600 mg/Dextrose 250 ml @ 1.99 mls/hr TITRATE IV Last administered on 03/17/16 08:39; Admin Dose 1.99 MLS/HR; Start 03/17/16 at 07:30 Sodium Bicarbonate 150 meq/Dextrose/ Sodium Chloride 1,000 ml @ 100 mls/hr Q10H IV Last administered on 03/19/16 10:38; Admin Dose 100 MLS/HR; Start at 09:30 Norepinephrine/ Dextrose (Levophed/D5W) 500 ml @ 0 mls/hr TITRATE IV ; Start 03/17/16 at 23:00 REJI WADE Mar 19, 2016 11:14
[2016-03-19] MEDS ORDERED: METOCLOPRAMIDE 10 MG INJ IV SCH (12:00)
--- NOTE | 2016-03-19 12:19 | PN ---
DATE: 03/19/2016 SUBJECTIVE: No acute changes overnight. No fevers. The patient is unresponsive, without gag refle x, dilated pupils, comfortable on vent. VITAL SIGNS: Temperature 97.8, pulse 100, respirations 20, blood pressure 92/58, saturation ____% o n vent. WBC 23, H and H 6.9 and 19.9, platelets 270. BUN 79, creatinine 4.60. MICROBIOLOGY: His cultures remain negative. INDWELLINGS: Endotracheal tube, NG tube, Smalls catheter, PICC line. ANTIMICROBIALS: Patient remains on: 1. Zosyn. 2. Vancomycin. PHYSICAL EXAMINATION: GENERAL: Ill-appearing, morbidly obese, middle-aged man who is lying comfortably in bed. HEENT: Head atraumatic, normocephalic. Sclerae anicteric. Buccal mucosa dry. NECK: Supple. CHEST: Rise symmetrical. Breath sounds diminished to bases. HEART: S1, S2. ABDOMEN: Obese, soft. Hypoactive bowel tones. EXTREMITIES: With bilateral edema. ASSESSMENT: 1. Acute encephalopathy status post cardiopulmonary arrest. 2. Sepsis secondary to pneumonia. 3. Hypertension status post hypertensive urgency. 4. Type B aortic dissection. 5. Acute kidney injury, on hemodialysis. 6. Anemia. 7. Pulmonary emboli. 8. Status post gastrointestinal bleeding. PLAN: The patient remains unchanged. He is unresponsive, concern for severe brain damage, possible brain . We will continue him on current antibiotics for now, await for family decision regard ing future plans of care. Dictated By: HUSAM SANFORD MGMT SPECIALIST for YESIKA LOPEZ/EFRAIN Conf#: [id number] DID#: [id number]
--- NOTE | 2016-03-19 14:38 | CONS ---
Date/Time of Note Date/Time of Note DATE: 03/19/16 TIME: 14:26 Assessment/Plan Assessment/Plan Additional Assessment/Plan Coffee-ground emesis/Anemia * Continue PPI drip, will defer to Dr. Nath whether to change to iv bid dosing. * Transfuse 2 units for hemoglobin less than 7.5 * Emergent EGD with precipitous drop of hemoglobin and/or overt signs of the UGIB. However, this is extremely high risk procedure given his aortic dissection. * Continue Carafate 1g QID Dysphasia, status post NG tube placement * Monitor residual every 6 hours, hold NG tube feed for residual greater than 150mL * Tube feed as tolerated Type B aortic dissection * No surgery planned Thrombus in left cephalic vein * Heparin on hold due to drop in hemoglobin Further recommendations depend on clinical course Pt seen in collaboration with Dr. Nath Consultation Date/Type/Reason Admit Date/Time Feb 18, 2016 at 09:14 Initial Consult Date 02/26/16 Type of Consultation: pulmonary Referring Provider: MOSES HARRIS MD 24 HR Interval Summary Free Text/Dictation Waiting to repeat confirmatory test to confirm brain Family meeting in process, awaiting mother to come to from [facility] Tube feeding held Exam/Review of Systems Vital Signs Vitals Vital Signs Date Time Temp Pulse Resp B/P Pulse Ox O2 Delivery O2 Flow Rate FiO2 03/19/16 13:45 96 30 105/52 89 03/19/16 13:00 Mechanical Ventilator 03/19/16 12:00 97.4 03/19/16 08:00 100 Intake and Output 03/18/16 03/18/16 03/19/16 15:00 23:00 07:00 Intake Total 1051 ml 745 ml 961.98 ml Output Total 0 ml 0 ml Balance 1051 ml 745 ml 961.98 ml Exam Constitutional: non-verbal Psych: confusion Head: atraumatic, normocephalic Eyes: nl conjunctiva, nl lids, nl sclera ENMT: mucosa pink and moist, nl external ears & nose, nl lips & teeth, nl nasal mucosa & septum Neck: non-tender, supple Respiratory: clear to auscultation, normal air movement Cardiovascular: nl pulses, regular rate and rhythm Gastrointestinal: bowel sounds, non-tender, soft Results Result Diagram: 03/19/16 04303/19/16 0430 Results 24 hrs Laboratory Tests Test 03/18/16 16:46 03/18/16 17:38 03/18/16 18:18 03/19/16 01:11 Arterial Blood HCO3 25.4 25.9 Arterial Blood Base Excess 0.5 -0.7 Arterial Blood Oxygen Saturation 91.1 L 81.1 L Jovanny Test ACCEPTAB ACCEPTAB Arterial Blood Gas Puncture Site Right Radial Right Radial Arterial Blood Carboxyhemoglobin 0.3 0.3 Arterial Blood Date Drawn 03/18/2016 4:55:11 PM 03/18/2016 5:45:26 PM Arterial Blood Methemoglobin 0.2 0.3 Arterial Blood pCO2 (Temp correct) 42.1 52.9 H Arterial Blood pH (Temp corrected) 7.398 7.307 L Arterial Blood pO2 (Temp corrected) 65.3 L 52.6 *L Blood Gas A-a O2 Differential 533.3 H 607.5 H Blood Gas Actual Respiration Rate 30 Blood Gas Low PEEP Setting 10.0 Blood Gas Modality VENT - AC NASAL CANNULA Blood Gas Notified Time 03/18/2016 5:04:55 PM 03/18/2016 5:56:32 PM Blood Gas Notified Whom KATYA KENNEDY Blood Gas Respiration Rate 30.0 Blood Gas Specimen Source Blood arterial Blood arterial Blood Gas Temperature 37.0 37.0 Blood Gas Tidal Volume 550.0 FiO2 90.0 100.0 Oxyhemoglobin Percent 90.6 L 80.6 L Total Hemoglobin 7.2 L 8.1 L Blood Gas Critical Value Read Back Felipa SYLVESTER RN Bedside Glucose 127 110 Test 03/19/16 04:30 03/19/16 05:31 03/19/16 13:08 Anion Gap 21 H Anisocytosis 1+ Band Neutrophils % 9.0 H Blood Morphology Comment Blood Urea Nitrogen 79 H Calcium Level 7.7 L Carbon Dioxide Level 31 Chloride Level 97 Creatinine 4.60 H Eosinophils # 2.5 H Eosinophils % 11.0 H Glucose Level 281 #H Hematocrit 19.9 L Hemoglobin 6.9 *L Hypochromasia 1+ Lymphocytes # 1.4 Lymphocytes % 6.0 L Mean Corpuscular Hemoglobin 27.7 L Mean Corpuscular Hemoglobin Concent 34.7 Mean Corpuscular Volume 79.8 L Mean Platelet Volume 8.2 Metamyelocytes # 0.5 Metamyelocytes % 2.0 H Microcytosis 1+ Monocytes # 0.2 L Monocytes % 1.0 Myelocytes # 0.5 Myelocytes % 2.0 H Neutrophils # 15.9 H Neutrophils % 69.0 Platelet Count 270 Platelet Estimate PLT APPEAR ADEQUATE Potassium Level 3.1 L Red Blood Count 2.49 L Red Cell Distribution Width 17.7 H Sodium Level 146 H White Blood Count 23.0 H Bedside Glucose 125 98 Medications Medications Current Medications Ondansetron HCl (Zofran Inj) 4 mg Q6H PRN IV NAUSEA AND/OR VOMITING; Start 02/18/16 at 09:30 Acetaminophen (Tylenol Supp) 650 mg Q4H PRN CO PAIN LEVEL 1-3 OR FEVER Last administered on 02/24/16at 14:32; Admin Dose 650 MG; Start 02/18/16 at 09:30 Morphine Sulfate (morphine) 2 mg Q4H PRN IV PAIN LEVEL 7-10 Last administered on 03/11/16at 16:13; Admin Dose 2 MG; Start 02/18/16 at 09:30 Bisacodyl (Dulcolax Supp) 10 mg DAILY PRN CO CONSTIPATION; Start 02/18/16 at 09 :30 Metoprolol Tartrate (Lopressor) 5 mg Q4H PRN IV HR>55 Hold SBP<100 Last administered on 03/17/16 00:21; Admin Dose 5 MG; Start 02/21/16 at 11:30 IV Flush (NS 10 ml) 10 ml PRN PRN IV IV PROTOCOL; Start 02/21/16 at 18:30 Ferrous Sulfate (Feosol Liquid Cup) 300 mg BID GTB Last administered on 08:19; Admin Dose 300 MG; Start 02/22/16 at 10:00 Lorazepam (Ativan) 1 mg Q1H PRN IV ANXIETY Last administered on 03/13/16 14: 10; Admin Dose 1 MG; Start 02/23/16 at 11:30 Miscellaneous Information 1 ea NOTE XX ; Start 02/23/16 at 23:15 Glucose (Glutose) 22.5 gm Q15M PRN PO DECREASED GLUCOSE; Start 02/23/16 at 23: 15 Dextrose (D50w Syringe) 50 ml Q15M PRN IV DECREASED GLUCOSE; Start 02/23/16 at 23:15 Glucagon (Glucagen) 1 mg Q15M PRN IM DECREASED GLUCOSE; Start 02/23/16 at 23:15 Glucose (Glutose) 15 gm Q15M PRN BUCCAL DECREASED GLUCOSE; Start 02/23/16 at 23 :15 Acetaminophen (Tylenol Tab) 650 mg Q6H PRN NGT PAIN AND OR ELEVATED TEMP Last administered on 03/13/16at 14:33; Admin Dose 650 MG; Start 03/06/16 at 11:30 Glucose (Glutose) 15 gm Q15M PRN NGT DECREASED GLUCOSE; Start 03/06/16 at 08: 45 Hydralazine HCl (Apresoline) 100 mg Q8 NGT Last administered on 03/16/16at 22: 53; Admin Dose 100 MG; Start 03/06/16 at 14:00 Metoprolol Tartrate (Lopressor) 150 mg Q8 NGT Last administered on 03/16/16at 22:52; Admin Dose 150 MG; Start 03/06/16 at 14:00 Hydralazine HCl (Apresoline) 10 mg Q4H PRN IV ELEVATED SYSTOLIC BP Last administered on 03/17/16 00:47; Admin Dose 10 MG; Start 03/06/16 at 16:00 Amlodipine Besylate (Norvasc) 10 mg DAILY PO Last administered on 03/14/16at 09 :52; Admin Dose 10 MG; Start 03/09/16 at 17:00 Minoxidil (Loniten) 10 mg BID NGT Last administered on 03/16/16at 20:28; Admin Dose 10 MG; Start 03/09/16 at 21:00 Insulin Aspart NOVOLOG *MODERATE* ALGORI... Q6 SC Last administered on 05:54; Admin Dose 2 UNIT; Start 03/10/16 at 06:00 Levetiracetam/ Dextrose (Keppra Iv/D5W) 115 ml @ 460 mls/hr Q12 IVPB Last administered on 03/19/16 08:19; Admin Dose 460 MLS/HR; Start 03/11/16 at 21:00 Diltiazem HCl (Cardizem) 90 mg Q8 PO Last administered on 03/16/16at 22:53; Admin Dose 90 MG; Start 03/12/16 at 14:00 Fluconazole 100 mg 100 mg DAILY PO Last administered on 03/19/16 08:19; Admin Dose 100 MG; Start 03/12/16 at 14:30 Piperacillin Sod/ Tazobactam Sod 50 ml @ 100 mls/hr Q8 IVPB Last administered on 03/19/16 05:33; Admin Dose 100 MLS/HR; Start 03/12/16 at 15:00 Fentanyl 1000 mcg/ Dextrose 100 ml @ 2.5 mls/hr TITRATE IV Last administered on 03/16/16at 21:04; Admin Dose 5 MLS/HR; Start 03/13/16 at 18:00 Pantoprazole/ Sodium Chloride (Protonix Iv/NS) 100 ml @ 10 mls/hr Q10H IV Last administered on 03/19/16 10:08; Admin Dose 10 MLS/HR; Start 03/14/16 at 10 :30 Sucralfate 1 gm 1 gm QID NGT Last administered on 03/19/16 08:19; Admin Dose 1 GM; Start 03/15/16 at 09:00 Midazolam HCl 50 mg/Dextrose 50 ml @ 0 mls/hr TITRATE IV Last administered on 02:08; Admin Dose 7 MLS/HR; Start 03/15/16 at 11:30 Esmolol HCl/ Sodium Chloride 250 ml @ 0 mls/hr TITRATE IV Last administered on 03/17/16 03:34; Admin Dose 31.2 MLS/HR; Start 03/17/16 at 02:00 Phenylephrine HCl 160 mg/Dextrose 500 ml @ 18.75 mls/ hr TITRATE IV Last administered on 03/17/16 08:09; Admin Dose 9.37 MLS/HR; Start 03/17/16 at 07:30 Dopamine HCl 1600 mg/Dextrose 250 ml @ 1.99 mls/hr TITRATE IV Last administered on 03/17/16 08:39; Admin Dose 1.99 MLS/HR; Start 03/17/16 at 07:30 Sodium Bicarbonate 150 meq/Dextrose/ Sodium Chloride 1,000 ml @ 100 mls/hr Q10H IV Last administered on 03/19/16 10:38; Admin Dose 100 MLS/HR; Start at 09:30 Norepinephrine/ Dextrose (Levophed/D5W) 500 ml @ 0 mls/hr TITRATE IV ; Start 03/17/16 at 23:00 Metoclopramide HCl (Reglan) 5 mg Q6 IV ; Start 03/19/16 at 12:00 BRENTON KHAN Mar 19, 2016 14:37
[2016-03-19] MEDS ORDERED: DOPamine-D5W 1.6 MG/ML 250 ML IV SCH (15:00)
--- NOTE | 2016-03-19 15:31 | CONS ---
DATE OF ADMISSION: 02/18/2016 DATE OF CONSULTATION: 03/19/2016 TYPE OF CONSULTATION: Family conference. Family conference was scheduled and done with the patient's significant other, brother and by confer ence-call his sister and mother. Reviewed his hospital course and complications which have occurred during this period of time. Family members gave me a brief overview of his health history prior to hospitalization when he was hospitalized prior to this hospitalization. He had been hospitalized onc e within the last 2 weeks for accelerated hypertension, systolic greater than 200, and was started o ff on medications there but signed out AMA. Then was forced to go back by his girlfriend and receive d medications in the emergency room and was sent with recommendations to follow up by a physician in the community. However, he did not and ran out of his medications approximately 5 days prior to hos pitalization. Whether or not this has had to do with his current catastrophic condition is unknown. Reviewed all of his medical problems currently and the fact that his EEG was flat, indicating brain and his apnea test, although was somewhat equivocal indicated brain also. However, at t his time, family have been informed that we are going to try to arrange a cerebral flow study but re viewing patient's physical examination once again in the supine position, he desaturates. So we are not hopeful that we will be able to have that study completed today. I spoke with the patient's fam roberta about this and did tell them that we are not sure he is stable enough to go and have that flow s tudy completed and if we cannot do it, we will continue with the prior plans of discontinuing vent. Family members are in agreement at this point and we have asked them to come within the next 24 lynn rs before this level of care will be discontinued. Dictated By: CORNELIUS HUYNH MD LP/NTS Conf#: [id number] DID#: [id number]
--- NOTE | 2016-03-19 15:56 | PN ---
Date/Time of Note Date/Time of Note DATE: 03/19/16 TIME: 15:55 Assessment/Plan Lines/Catheters IV Catheter Type (from Nrs): DAMON Smalls in Place (from Nrs): Yes Assessment/Plan Chief Complaint/Hosp Course IMPRESSION: Type B aortic dissection. The patient's blood pressure more controlled RECOMMENDATIONS: At this time, we would continue blood pressure management, monitor vital signs and laboratory values in an intensive care unit setting. Vent support per pulm medicine No plan for surgery. Abx Repeat CTA Dissection involving the thoracic aorta arising distal to the origin of the left subclavian artery and extending into the abdominal aorta. The distal extent was not included on the study. Flow within both true and false lumen to the level of the celiac artery. Would continue BP control , Vent support Type B aortic dissection SP Dialysys cath follow neurology recc. no plan for surgery at this time I discussed with the patient and Dr. Mccabe and staff Problems: Subjective 24 Hr Interval Summary Constitutional: improved Pain Control: mild Exam/Review of Systems Vital Signs Vitals Vital Signs Date Time Temp Pulse Resp B/P Pulse Ox O2 Delivery O2 Flow Rate FiO2 03/19/16 15:45 97 30 117/62 88 03/19/16 15:00 Mechanical Ventilator 03/19/16 13:50 100 03/19/16 12:00 97.4 Intake and Output 03/18/16 03/18/16 03/19/16 15:00 23:00 07:00 Intake Total 1051 ml 745 ml 961.98 ml Output Total 0 ml 0 ml Balance 1051 ml 745 ml 961.98 ml Exam ENMT: mucosa pink and moist, nl external ears & nose, nl lips & teeth, nl nasal mucosa & septum Neck: non-tender, supple Respiratory: clear to auscultation, normal air movement Cardiovascular: nl pulses, regular rate and rhythm Gastrointestinal: nl liver, spleen, non-tender, soft Results Result Diagram: 03/19/1642903/19/16429 KAYLYN RADFORD MD Mar 19, 2016 15:56
[2016-03-19] MEDS: [UNRECOGNIZED DRUG - REMARK] XX SCH (16:58)
--- NOTE | 2016-03-19 17:12 | CONS ---
Date/Time of Note Date/Time of Note DATE: 03/19/16 TIME: 17:11 Assessment/Plan Assessment/Plan Chief Complaint/Hosp Course Assessment/Plan 1. Acute kidney injury, on vent hd hold 2. type B Helio aortic dissection. 3. Hypertension 4. acute resp failiure intubated on vent 5 anasarca 6 s/p code blue 7 brain per pcp plan no hd Problems: Consultation Date/Type/Reason Admit Date/Time Feb 18, 2016 at 09:14 Initial Consult Date 02/26/16 Type of Consultation: renal Referring Provider: MOSES HARRIS MD 24 HR Interval Summary Subjective hx not possible: pt non-verbal Exam/Review of Systems Vital Signs Vitals Vital Signs Date Time Temp Pulse Resp B/P Pulse Ox O2 Delivery O2 Flow Rate FiO2 03/19/16 17:00 98 30 108/59 87 Mechanical Ventilator 03/19/16 16:00 97.7 03/19/16 13:50 100 Intake and Output 03/18/16 03/18/16 03/19/16 15:00 23:00 07:00 Intake Total 1051 ml 745 ml 961.98 ml Output Total 0 ml 0 ml Balance 1051 ml 745 ml 961.98 ml Exam Respiratory: clear to auscultation Cardiovascular: regular rate and rhythm Gastrointestinal: soft (+) Extremities: edema (++) Results Result Diagram: 03/19/16 0430 03/19/16 0430 Results 24 hrs Laboratory Tests Test 03/18/16 17:38 03/18/16 18:18 03/19/16 01:11 03/19/16 04:30 Arterial Blood HCO3 25.9 Arterial Blood Base Excess -0.7 Arterial Blood Oxygen Saturation 81.1 L Jovanny Test ACCEPTAB Arterial Blood Gas Puncture Site Right Radial Arterial Blood Carboxyhemoglobin 0.3 Arterial Blood Date Drawn 03/18/2016 5:45:26 PM Arterial Blood Methemoglobin 0.3 Arterial Blood pCO2 (Temp correct) 52.9 H Arterial Blood pH (Temp corrected) 7.307 L Arterial Blood pO2 (Temp corrected) 52.6 *L Blood Gas A-a O2 Differential 607.5 H Blood Gas Critical Value Read Back Felipa SYLVESTER RN Blood Gas Modality NASAL CANNULA Blood Gas Notified Time 03/18/2016 5:56:32 PM Blood Gas Notified Whom MARCIA Blood Gas Specimen Source Blood arterial Blood Gas Temperature 37.0 FiO2 100.0 Oxyhemoglobin Percent 80.6 L Total Hemoglobin 8.1 L Bedside Glucose 127 110 Anion Gap 21 H Anisocytosis 1+ Band Neutrophils % 9.0 H Blood Morphology Comment Blood Urea Nitrogen 79 H Calcium Level 7.7 L Carbon Dioxide Level 31 Chloride Level 97 Creatinine 4.60 H Eosinophils # 2.5 H Eosinophils % 11.0 H Glucose Level 281 #H Hematocrit 19.9 L Hemoglobin 6.9 *L Hypochromasia 1+ Lymphocytes # 1.4 Lymphocytes % 6.0 L Mean Corpuscular Hemoglobin 27.7 L Mean Corpuscular Hemoglobin Concent 34.7 Mean Corpuscular Volume 79.8 L Mean Platelet Volume 8.2 Metamyelocytes # 0.5 Metamyelocytes % 2.0 H Microcytosis 1+ Monocytes # 0.2 L Monocytes % 1.0 Myelocytes # 0.5 Myelocytes % 2.0 H Neutrophils # 15.9 H Neutrophils % 69.0 Platelet Count 270 Platelet Estimate PLT APPEAR ADEQUATE Potassium Level 3.1 L Red Blood Count 2.49 L Red Cell Distribution Width 17.7 H Sodium Level 146 H White Blood Count 23.0 H Test 03/19/16 05:31 03/19/16 13:08 Bedside Glucose 125 98 Medications Medications Current Medications Ondansetron HCl (Zofran Inj) 4 mg Q6H PRN IV NAUSEA AND/OR VOMITING; Start 02/18/16 at 09:30 Acetaminophen (Tylenol Supp) 650 mg Q4H PRN [place] PAIN LEVEL 1-3 OR FEVER Last administered on 02/24/16at 14:32; Admin Dose 650 MG; Start 02/18/16 at 09:30 Morphine Sulfate (morphine) 2 mg Q4H PRN IV PAIN LEVEL 7-10 Last administered on 03/11/16at 16:13; Admin Dose 2 MG; Start 02/18/16 at 09:30 Bisacodyl (Dulcolax Supp) 10 mg DAILY PRN [place] CONSTIPATION; Start 02/18/16 at 09 :30 Metoprolol Tartrate (Lopressor) 5 mg Q4H PRN IV HR>55 Hold SBP<100 Last administered on 03/17/16 00:21; Admin Dose 5 MG; Start 02/21/16 at 11:30 IV Flush (NS 10 ml) 10 ml PRN PRN IV IV PROTOCOL; Start 02/21/16 at 18:30 Ferrous Sulfate (Feosol Liquid Cup) 300 mg BID GTB Last administered on 08:19; Admin Dose 300 MG; Start 02/22/16 at 10:00 Lorazepam (Ativan) 1 mg Q1H PRN IV ANXIETY Last administered on 03/13/16at 14: 10; Admin Dose 1 MG; Start 02/23/16 at 11:30 Miscellaneous Information 1 ea NOTE XX ; Start 02/23/16 at 23:15 Glucose (Glutose) 22.5 gm Q15M PRN PO DECREASED GLUCOSE; Start 02/23/16 at 23: 15 Dextrose (D50w Syringe) 50 ml Q15M PRN IV DECREASED GLUCOSE; Start 02/23/16 at 23:15 Glucagon (Glucagen) 1 mg Q15M PRN IM DECREASED GLUCOSE; Start 02/23/16 at 23:15 Glucose (Glutose) 15 gm Q15M PRN BUCCAL DECREASED GLUCOSE; Start 02/23/16 at 23 :15 Acetaminophen (Tylenol Tab) 650 mg Q6H PRN NGT PAIN AND OR ELEVATED TEMP Last administered on 03/13/16at 14:33; Admin Dose 650 MG; Start 03/06/16 at 11:30 Glucose (Glutose) 15 gm Q15M PRN NGT DECREASED GLUCOSE; Start 03/06/16 at 08: 45 Hydralazine HCl (Apresoline) 100 mg Q8 NGT Last administered on 03/16/16at 22: 53; Admin Dose 100 MG; Start 03/06/16 at 14:00 Metoprolol Tartrate (Lopressor) 150 mg Q8 NGT Last administered on 03/16/16at 22:52; Admin Dose 150 MG; Start 03/06/16 at 14:00 Hydralazine HCl (Apresoline) 10 mg Q4H PRN IV ELEVATED SYSTOLIC BP Last administered on 03/17/16 00:47; Admin Dose 10 MG; Start 03/06/16 at 16:00 Amlodipine Besylate (Norvasc) 10 mg DAILY PO Last administered on 03/14/16at 09 :52; Admin Dose 10 MG; Start 03/09/16 at 17:00 Minoxidil (Loniten) 10 mg BID NGT Last administered on 03/16/16 20:28; Admin Dose 10 MG; Start 03/09/16 at 21:00 Insulin Aspart NOVOLOG *MODERATE* ALGORI... Q6 SC Last administered on 05:54; Admin Dose 2 UNIT; Start 03/10/16 at 06:00 Levetiracetam/ Dextrose (Keppra Iv/D5W) 115 ml @ 460 mls/hr Q12 IVPB Last administered on 03/19/16 08:19; Admin Dose 460 MLS/HR; Start 03/11/16 at 21:00 Diltiazem HCl (Cardizem) 90 mg Q8 PO Last administered on 03/16/16 22:53; Admin Dose 90 MG; Start 03/12/16 at 14:00 Fluconazole 100 mg 100 mg DAILY PO Last administered on 03/19/16 08:19; Admin Dose 100 MG; Start 03/12/16 at 14:30 Piperacillin Sod/ Tazobactam Sod 50 ml @ 100 mls/hr Q8 IVPB Last administered on 03/19/16 14:56; Admin Dose 100 MLS/HR; Start 03/12/16 at 15:00 Fentanyl 1000 mcg/ Dextrose 100 ml @ 2.5 mls/hr TITRATE IV Last administered on 03/16/16 21:04; Admin Dose 5 MLS/HR; Start 03/13/16 at 18:00 Pantoprazole 80 mg/Sodium Chloride 100 ml @ 10 mls/hr Q10H IV Last administered on 03/19/16 10:08; Admin Dose 10 MLS/HR; Start 03/14/16 at 10:30 Midazolam HCl 50 mg/Dextrose 50 ml @ 0 mls/hr TITRATE IV Last administered on 02:08; Admin Dose 7 MLS/HR; Start 03/15/16 at 11:30 Esmolol HCl/ Sodium Chloride 250 ml @ 0 mls/hr TITRATE IV Last administered on 03/17/16 03:34; Admin Dose 31.2 MLS/HR; Start 03/17/16 at 02:00 Phenylephrine HCl 160 mg/Dextrose 500 ml @ 18.75 mls/ hr TITRATE IV Last administered on 03/17/16 08:09; Admin Dose 9.37 MLS/HR; Start 03/17/16 at 07:30 Sodium Bicarbonate 150 meq/Dextrose/ Sodium Chloride 1,000 ml @ 100 mls/hr Q10H IV Last administered on 03/19/16t 10:38; Admin Dose 100 MLS/HR; Start at 09:30 Norepinephrine 16 mg/Dextrose 500 ml @ 0 mls/hr TITRATE IV ; Start 03/17/16 at 23 :00 Dopamine HCl/ Dextrose 250 ml @ 7.95 mls/hr Q24H IV ; Start 03/19/16 at 15:00 Miscellaneous Information (*Order Clarification Bulletin) PLEASE REVIEW 2 CALCIUM MOTLEY... Q8H XX ; Start 03/19/16 at 17:00 SASHA OWEN MD Mar 19, 2016 17:12
[2016-03-19] MEDS ORDERED: DOPamine 1,600 MG in DEXTROSE 5% 210 ML IV SCH (18:00)
[2016-03-20] VITALS (65 sets, daily range): BP systolic 68–124; BP diastolic 20–80; PULSE 87–117; RESP 27–30
[2016-03-20] MEDS: [UNRECOGNIZED DRUG - REMARK] XX SCH ×2 (00:33→08:52)
[2016-03-20 04:57] LABS: HEMATOCRIT 21.4 % (42.0-52.0); HEMOGLOBIN 7.2 g/dl (14.0-18.0); MEAN CORPUSCULAR HEMOGLOBIN 26.9 pg (29.0-33.0); MEAN CORPUSCULAR HGB CONC 33.7 g/dl (32.0-37.0); MEAN CORPUSCULAR VOLUME 79.9 fl (82.0-101.0); MEAN PLATELET VOLUME 7.8 fl (7.4-10.4); PLATELET COUNT 292 10^3/UL (140-440); RED BLOOD COUNT 2.67 10^6/ul (4.70-6.10); RED CELL DISTRIBUTION WIDTH 18.1 % (11.5-14.5); UNCORRECTED WBC 26.7 10^3/ul (4.8-10.8); WHITE BLOOD COUNT 26.7 10^3/ul (4.8-10.8)
[2016-03-20 05:01] LABS: POTASSIUM 3.8 mmol/L (3.5-5.1)
[2016-03-20 05:05] LABS: CALCIUM 8.8 mg/dl (8.4-10.2)
[2016-03-20] MEDS: PIPER-TAZO 2.25 GM (PMX) 50 ML IVPB SCH ×2 (05:09→14:00)
[2016-03-20] MEDS: METOPROLOL 100 MG TAB NGT SCH (05:09)
[2016-03-20] MEDS: PANTOPRAZOLE IV 80 MG in SOD CHLORIDE 0.9% 100 ML IV SCH (05:09)
[2016-03-20] MEDS: DILTIAZEM 30 MG TAB PO SCH (05:09)
[2016-03-20] MEDS: INSULIN ASPART [NOVOLOG] 3 ML PEN SC SCH ×3 (05:11→12:00)
[2016-03-20 05:25] LABS: CONDITION 1; LH ANALYZER COMMENTS 1
[2016-03-20 05:39] LABS: CREATININE 5.92 mg/dl (0.61-1.24)
[2016-03-20] MEDS: SODIUM BICARBONATE IV SCH (06:01)
[2016-03-20] MEDS: DEXTROSE IV SCH (06:01)
[2016-03-20] MEDS: NACL IV SCH (06:01)
[2016-03-20] MEDS: FERROUS SULFATE 60 MG/ML 5ML CUP GTB SCH (08:50)
[2016-03-20] MEDS: LEVETIRACETAM IV 1,500 MG in DEXTROSE 5% 100 ML IVPB SCH (08:50)
[2016-03-20] MEDS: AMLODIPINE 10 MG TAB PO SCH (08:51)
[2016-03-20] MEDS: MINOXIDIL 10 MG TAB NGT SCH (08:51)
[2016-03-20] MEDS: FLUCONAZOLE 100 MG TAB PO SCH (08:51)
[2016-03-20 10:00] LABS: ANISOCYTOSIS 1+; BASOPHIL # 0.3 10^3/ul (0.0-0.1); EOSINOPHILS # 0.8 10^3/ul (0.0-0.5); HYPOCHROMASIA 1+; LYMPHOCYTES # 1.3 10^3/ul (0.8-2.9); MICROCYTOSIS 1+; MONOCYTE # 2.4 10^3/ul (0.3-0.9); MYELOCYTES # 0.5; NEUTROPHIL # 18.4 10^3/ul (1.6-7.5)
--- NOTE | 2016-03-20 10:50 | CONS ---
Date/Time of Note Date/Time of Note DATE: 03/20/16 TIME: 10:49 Consult Date/Type/Reason Admit Date/Time Feb 18, 2016 at 09:14 Type of Consultation: Pulm Ordering Provider: MOSES HARRIS MD Subjective Clinically no change. Unresponsive on vent. Objective Vital Signs Date Time Temp Pulse Resp B/P Pulse Ox O2 Delivery O2 Flow Rate FiO2 03/20/16 08:33 100 03/20/16 08:30 113 30 113/80 88 03/20/16 08:00 97.5 Mechanical Ventilator Intake and Output 03/19/16 03/19/16 03/20/16 15:00 23:00 07:00 Intake Total 840.78 ml 1146.76 ml 1003.320 ml Output Total 0 ml 0 ml 0 ml Balance 840.78 ml 1146.76 ml 1003.320 ml PHYSICAL EXAMINATION GENERAL: Well-nourished well-developed gentleman intubated on mechanical ventilation sedation VITAL SIGNS: see below. HEENT: Pupils equal, round, unreactive CARDIAC: S1, S2, CHEST: Diminished air entry bilaterally. Few rales bilaterally ABDOMEN: Mildly distended. Obese soft nontender no guarding or rebound EXTREMITIES: No cyanosis, clubbing edema +2 NEUROLOGIC: Unable to assess Results/Medications Result Diagram: 03/20/16 0405 03/20/16 0405 Results 24 hrs Laboratory Tests Test 03/19/16 13:08 03/19/16 17:28 03/20/16 00:32 03/20/16 04:05 Bedside Glucose 98 97 106 Anion Gap 21 H Anisocytosis 1+ Band Neutrophils % 11.0 H Basophils # 0.3 H Basophils % 1.0 Blood Morphology Comment Blood Urea Nitrogen 83 H Calcium Level 8.8 Carbon Dioxide Level 28 Chloride Level 97 Creatinine 5.92 H Differential Comment MANUAL DIFF Eosinophils # 0.8 H Eosinophils % 3.0 Glucose Level 101 # Hematocrit 21.4 L Hemoglobin 7.2 L Hypochromasia 1+ Lymphocytes # 1.3 Lymphocytes % 5.0 L Mean Corpuscular Hemoglobin 26.9 L Mean Corpuscular Hemoglobin Concent 33.7 Mean Corpuscular Volume 79.9 L Mean Platelet Volume 7.8 Microcytosis 1+ Monocytes # 2.4 H Monocytes % 9.0 Myelocytes # 0.5 Myelocytes % 2.0 H Neutrophils # 18.4 H Neutrophils % 69.0 Platelet Count 292 Potassium Level 3.8 Red Blood Count 2.67 L Red Cell Distribution Width 18.1 H Sodium Level 142 White Blood Count 26.7 H Test 03/20/16 04:28 03/20/16 05:11 Bedside Glucose 111 112 Medications Current Medications Ondansetron HCl (Zofran Inj) 4 mg Q6H PRN IV NAUSEA AND/OR VOMITING; Start 02/18/16 at 09:30 Acetaminophen (Tylenol Supp) 650 mg Q4H PRN [place] PAIN LEVEL 1-3 OR FEVER Last administered on 02/24/16at 14:32; Admin Dose 650 MG; Start 02/18/16 at 09:30 Morphine Sulfate (morphine) 2 mg Q4H PRN IV PAIN LEVEL 7-10 Last administered on 03/11/16at 16:13; Admin Dose 2 MG; Start 02/18/16 at 09:30 Bisacodyl (Dulcolax Supp) 10 mg DAILY PRN [place] CONSTIPATION; Start 02/18/16 at 09 :30 Metoprolol Tartrate (Lopressor) 5 mg Q4H PRN IV HR>55 Hold SBP<100 Last administered on 03/17/16 00:21; Admin Dose 5 MG; Start 02/21/16 at 11:30 IV Flush (NS 10 ml) 10 ml PRN PRN IV IV PROTOCOL; Start 02/21/16 at 18:30 Ferrous Sulfate (Feosol Liquid Cup) 300 mg BID GTB Last administered on 22:16; Admin Dose 300 MG; Start 02/22/16 at 10:00 Lorazepam (Ativan) 1 mg Q1H PRN IV ANXIETY Last administered on 03/13/16at 14: 10; Admin Dose 1 MG; Start 02/23/16 at 11:30 Miscellaneous Information 1 ea NOTE XX ; Start 02/23/16 at 23:15 Glucose (Glutose) 22.5 gm Q15M PRN PO DECREASED GLUCOSE; Start 02/23/16 at 23: 15 Dextrose (D50w Syringe) 50 ml Q15M PRN IV DECREASED GLUCOSE; Start 02/23/16 at 23:15 Glucagon (Glucagen) 1 mg Q15M PRN IM DECREASED GLUCOSE; Start 02/23/16 at 23:15 Glucose (Glutose) 15 gm Q15M PRN BUCCAL DECREASED GLUCOSE; Start 02/23/16 at 23 :15 Acetaminophen (Tylenol Tab) 650 mg Q6H PRN NGT PAIN AND OR ELEVATED TEMP Last administered on 03/13/16at 14:33; Admin Dose 650 MG; Start 03/06/16 at 11:30 Glucose (Glutose) 15 gm Q15M PRN NGT DECREASED GLUCOSE; Start 03/06/16 at 08: 45 Hydralazine HCl (Apresoline) 100 mg Q8 NGT Last administered on 03/16/16at 22: 53; Admin Dose 100 MG; Start 03/06/16 at 14:00 Metoprolol Tartrate (Lopressor) 150 mg Q8 NGT Last administered on 03/16/16at 22:52; Admin Dose 150 MG; Start 03/06/16 at 14:00 Hydralazine HCl (Apresoline) 10 mg Q4H PRN IV ELEVATED SYSTOLIC BP Last administered on 03/17/16 00:47; Admin Dose 10 MG; Start 03/06/16 at 16:00 Amlodipine Besylate (Norvasc) 10 mg DAILY PO Last administered on 03/14/16at 09 :52; Admin Dose 10 MG; Start 03/09/16 at 17:00 Minoxidil (Loniten) 10 mg BID NGT Last administered on 03/16/16at 20:28; Admin Dose 10 MG; Start 03/09/16 at 21:00 Insulin Aspart NOVOLOG *MODERATE* ALGORI... Q6 SC Last administered on 05:54; Admin Dose 2 UNIT; Start 03/10/16 at 06:00 Levetiracetam/ Dextrose (Keppra Iv/D5W) 115 ml @ 460 mls/hr Q12 IVPB Last administered on 03/19/16 22:16; Admin Dose 460 MLS/HR; Start 03/11/16 at 21:00 Diltiazem HCl (Cardizem) 90 mg Q8 PO Last administered on 03/16/16at 22:53; Admin Dose 90 MG; Start 03/12/16 at 14:00 Fluconazole 100 mg 100 mg DAILY PO Last administered on 03/19/16 08:19; Admin Dose 100 MG; Start 03/12/16 at 14:30 Piperacillin Sod/ Tazobactam Sod 50 ml @ 100 mls/hr Q8 IVPB Last administered on 03/20/16 05:09; Admin Dose 100 MLS/HR; Start 03/12/16 at 15:00 Fentanyl 1000 mcg/ Dextrose 100 ml @ 2.5 mls/hr TITRATE IV Last administered on 03/16/16at 21:04; Admin Dose 5 MLS/HR; Start 03/13/16 at 18:00 Pantoprazole 80 mg/Sodium Chloride 100 ml @ 10 mls/hr Q10H IV Last administered on 03/20/16 05:09; Admin Dose 10 MLS/HR; Start 03/14/16 at 10:30 Midazolam HCl 50 mg/Dextrose 50 ml @ 0 mls/hr TITRATE IV Last administered on 02:08; Admin Dose 7 MLS/HR; Start 03/15/16 at 11:30 Sodium Bicarbonate/ Dextrose/Sodium Chloride (Na Bicarb/D5-NS) 1,000 ml @ 100 mls/hr Q10H IV Last administered on 03/20/16 06:01; Admin Dose 100 MLS/HR; Start 03/17/16 at 09:30 Miscellaneous Information PLEASE REVIEW 2 CALCIUM MOTLEY... Q8H XX ; Start at 17:00 Dopamine HCl/ Dextrose (D5W) 250 ml @ 0 mls/hr TITRATE IV Last administered on 03/19/16 19:48; Admin Dose 5.97 MLS/HR; Start 03/19/16 at 18:00 Assessment/Plan Chief Complaint/Hosp Course IMPRESSION 1. Status post Hypertensive Emergency 2. Type B Aortic Dissection. No evidence on proximal dissection on recent CT neck and chest, 3. Encephalopathy, possibly secondary to antihypertensive medications. 4. Aspiration pneumonia versus healthcare associated pneumonia requiring reintubation, chest x-ray suggestive of ARDS 5. Pulmonary embolus 6. Renal failure now requiring hemodialysis 7. Anemia evidence of GI bleed 8. Cardiopulmonary arrest eeg consistent with brain RECS: 1. Vent support. 2. Blood pressure control decrease vasopressors as tolerated 3. neuro recs 4. Palliative care recs Examination and findings consistent with brain Palliative care recommendations regarding removal of life support awaiting family from out of state Problems: ANAYA BREWSTER MD, [facility] Mar 20, 2016 10:50
--- NOTE | 2016-03-20 11:40 | CONS ---
Date/Time of Note Date/Time of Note DATE: 03/20/16 TIME: 11:38 Consult Date/Type/Reason Admit Date/Time Feb 18, 2016 at 09:14 Initial Consult Date 02/26/16 Type of Consultation: id Ordering Provider: MOSES HARRIS MD Subjective all noted, obtunded, off abx, pending terminal extubation Objective Vital Signs Date Time Temp Pulse Resp B/P Pulse Ox O2 Delivery O2 Flow Rate FiO2 03/20/16 11:15 111 30 124/79 86 03/20/16 11:00 Mechanical Ventilator 03/20/16 08:33 100 03/20/16 08:00 97.5 Intake and Output 03/19/16 03/19/16 03/20/16 15:00 23:00 07:00 Intake Total 840.78 ml 1146.76 ml 1003.320 ml Output Total 0 ml 0 ml 0 ml Balance 840.78 ml 1146.76 ml 1003.320 ml Results/Medications Result Diagram: 03/20/16 0405 03/20/16 0405 Results 24 hrs Laboratory Tests Test 03/19/16 13:08 03/19/16 17:28 03/20/16 00:32 03/20/16 04:05 Bedside Glucose 98 97 106 Anion Gap 21 H Anisocytosis 1+ Band Neutrophils % 11.0 H Basophils # 0.3 H Basophils % 1.0 Blood Morphology Comment Blood Urea Nitrogen 83 H Calcium Level 8.8 Carbon Dioxide Level 28 Chloride Level 97 Creatinine 5.92 H Differential Comment MANUAL DIFF Eosinophils # 0.8 H Eosinophils % 3.0 Glucose Level 101 # Hematocrit 21.4 L Hemoglobin 7.2 L Hypochromasia 1+ Lymphocytes # 1.3 Lymphocytes % 5.0 L Mean Corpuscular Hemoglobin 26.9 L Mean Corpuscular Hemoglobin Concent 33.7 Mean Corpuscular Volume 79.9 L Mean Platelet Volume 7.8 Microcytosis 1+ Monocytes # 2.4 H Monocytes % 9.0 Myelocytes # 0.5 Myelocytes % 2.0 H Neutrophils # 18.4 H Neutrophils % 69.0 Platelet Count 292 Potassium Level 3.8 Red Blood Count 2.67 L Red Cell Distribution Width 18.1 H Sodium Level 142 White Blood Count 26.7 H Test 03/20/16 04:28 03/20/16 05:11 Bedside Glucose 111 112 Medications Current Medications Ondansetron HCl (Zofran Inj) 4 mg Q6H PRN IV NAUSEA AND/OR VOMITING; Start 02/18/16 at 09:30 Acetaminophen (Tylenol Supp) 650 mg Q4H PRN [place] PAIN LEVEL 1-3 OR FEVER Last administered on 02/24/16at 14:32; Admin Dose 650 MG; Start 02/18/16 at 09:30 Morphine Sulfate (morphine) 2 mg Q4H PRN IV PAIN LEVEL 7-10 Last administered on 03/11/16at 16:13; Admin Dose 2 MG; Start 02/18/16 at 09:30 Bisacodyl (Dulcolax Supp) 10 mg DAILY PRN [place] CONSTIPATION; Start 02/18/16 at 09 :30 Metoprolol Tartrate (Lopressor) 5 mg Q4H PRN IV HR>55 Hold SBP<100 Last administered on 03/17/16 00:21; Admin Dose 5 MG; Start 02/21/16 at 11:30 IV Flush (NS 10 ml) 10 ml PRN PRN IV IV PROTOCOL; Start 02/21/16 at 18:30 Ferrous Sulfate (Feosol Liquid Cup) 300 mg BID GTB Last administered on 22:16; Admin Dose 300 MG; Start 02/22/16 at 10:00 Lorazepam (Ativan) 1 mg Q1H PRN IV ANXIETY Last administered on 03/13/16at 14: 10; Admin Dose 1 MG; Start 02/23/16 at 11:30 Miscellaneous Information 1 ea NOTE XX ; Start 02/23/16 at 23:15 Glucose (Glutose) 22.5 gm Q15M PRN PO DECREASED GLUCOSE; Start 02/23/16 at 23: 15 Dextrose (D50w Syringe) 50 ml Q15M PRN IV DECREASED GLUCOSE; Start 02/23/16 at 23:15 Glucagon (Glucagen) 1 mg Q15M PRN IM DECREASED GLUCOSE; Start 02/23/16 at 23:15 Glucose (Glutose) 15 gm Q15M PRN BUCCAL DECREASED GLUCOSE; Start 02/23/16 at 23 :15 Acetaminophen (Tylenol Tab) 650 mg Q6H PRN NGT PAIN AND OR ELEVATED TEMP Last administered on 03/13/16at 14:33; Admin Dose 650 MG; Start 03/06/16 at 11:30 Glucose (Glutose) 15 gm Q15M PRN NGT DECREASED GLUCOSE; Start 03/06/16 at 08: 45 Hydralazine HCl (Apresoline) 100 mg Q8 NGT Last administered on 03/16/16at 22: 53; Admin Dose 100 MG; Start 03/06/16 at 14:00 Metoprolol Tartrate (Lopressor) 150 mg Q8 NGT Last administered on 03/16/16at 22:52; Admin Dose 150 MG; Start 03/06/16 at 14:00 Hydralazine HCl (Apresoline) 10 mg Q4H PRN IV ELEVATED SYSTOLIC BP Last administered on 03/17/16 00:47; Admin Dose 10 MG; Start 03/06/16 at 16:00 Amlodipine Besylate (Norvasc) 10 mg DAILY PO Last administered on 03/14/16at 09 :52; Admin Dose 10 MG; Start 03/09/16 at 17:00 Minoxidil (Loniten) 10 mg BID NGT Last administered on 03/16/16at 20:28; Admin Dose 10 MG; Start 03/09/16 at 21:00 Insulin Aspart NOVOLOG *MODERATE* ALGORI... Q6 SC Last administered on 05:54; Admin Dose 2 UNIT; Start 03/10/16 at 06:00 Levetiracetam/ Dextrose (Keppra Iv/D5W) 115 ml @ 460 mls/hr Q12 IVPB Last administered on 03/19/16 22:16; Admin Dose 460 MLS/HR; Start 03/11/16 at 21:00 Diltiazem HCl (Cardizem) 90 mg Q8 PO Last administered on 03/16/16at 22:53; Admin Dose 90 MG; Start 03/12/16 at 14:00 Fluconazole 100 mg 100 mg DAILY PO Last administered on 03/19/16 08:19; Admin Dose 100 MG; Start 03/12/16 at 14:30 Piperacillin Sod/ Tazobactam Sod 50 ml @ 100 mls/hr Q8 IVPB Last administered on 03/20/16 05:09; Admin Dose 100 MLS/HR; Start 03/12/16 at 15:00 Fentanyl 1000 mcg/ Dextrose 100 ml @ 2.5 mls/hr TITRATE IV Last administered on 03/16/16at 21:04; Admin Dose 5 MLS/HR; Start 03/13/16 at 18:00 Pantoprazole 80 mg/Sodium Chloride 100 ml @ 10 mls/hr Q10H IV Last administered on 03/20/16 05:09; Admin Dose 10 MLS/HR; Start 03/14/16 at 10:30 Midazolam HCl 50 mg/Dextrose 50 ml @ 0 mls/hr TITRATE IV Last administered on 02:08; Admin Dose 7 MLS/HR; Start 03/15/16 at 11:30 Sodium Bicarbonate/ Dextrose/Sodium Chloride (Na Bicarb/D5-NS) 1,000 ml @ 100 mls/hr Q10H IV Last administered on 03/20/16 06:01; Admin Dose 100 MLS/HR; Start 03/17/16 at 09:30 Miscellaneous Information PLEASE REVIEW 2 CALCIUM MOTLEY... Q8H XX ; Start at 17:00 Dopamine HCl/ Dextrose (D5W) 250 ml @ 0 mls/hr TITRATE IV Last administered on 03/19/16 19:48; Admin Dose 5.97 MLS/HR; Start 03/19/16 at 18:00 Assessment/Plan Chief Complaint/Hosp Course PHYSICAL EXAMINATION: GENERAL: Ill-appearing, morbidly obese, middle-aged man who is lying comfortably in bed. HEENT: Head atraumatic, normocephalic. Fixed dilated pupils. Buccal mucosa dry. NECK: Supple. CHEST: Rise symmetrical. Breath sounds diminished to bases. HEART: S1, S2. ABDOMEN: Obese, soft. Hypoactive bowel tones. EXTREMITIES: With bilateral edema. ASSESSMENT: 1. Acute encephalopathy status post cardiopulmonary arrest==> brain . 2. Sepsis secondary to pneumonia. 3. Hypertension status post hypertensive urgency. 4. Type B aortic dissection. 5. Acute kidney injury, on hemodialysis. 6. Anemia. 7. Pulmonary emboli. 8. Status post gastrointestinal bleeding. PLAN: The patient remains unchanged, off abx, plan for terminal extubation, will sign off DW RN Problems: HUSAM SANFORD NP Mar 20, 2016 11:40
--- NOTE | 2016-03-20 12:49 | CONS ---
Date/Time of Note Date/Time of Note DATE: 03/20/16 TIME: 12:46 Assessment/Plan Assessment/Plan Chief Complaint/Hosp Course Imp: 1.HTN emergency-NL EF by echo this admit-now hypotensive s/p code blue on dopamine 2.Aortic dissection-type B again demonstrated by Chest CT 02/29/16 3.abnl ecg-lateral TWI-negative troponin x 3 since admit 4.anxiety 5.ARF 6. Pericardial effusion by echo-small with NL EF 7.Encephalopathic-confirmed brain by EEG 03/17/16 8.Pulmonary embolism 9.Tachycardia-S tach-only when on sedation vacation 10.CHF-diastolic acute 11.Resp [id number] 12.Seizures-on keppra 13. Acute on chronic renal failure 14.GIB/anemia 15/ s/p PES arrest requiring ACLS protocol after having htn and then reciving esmolol with subsequent bradycardia and PEA Recc: -Tele in ICU -HD as indicated -Continue pressors for now -Continue keppra for seizures -Likely terminal extubation today Problems: Consultation Date/Type/Reason Admit Date/Time Feb 18, 2016 at 09:14 Initial Consult Date 02/19/2016 Type of Consultation: cardiology Reason for Consultation aortic dissection/HTN Referring Provider: MOSES HARRIS MD Exam/Review of Systems Vital Signs Vitals Vital Signs Date Time Temp Pulse Resp B/P Pulse Ox O2 Delivery O2 Flow Rate FiO2 03/20/16 11:15 111 30 124/79 86 03/20/16 11:00 Mechanical Ventilator 03/20/16 08:33 100 03/20/16 08:00 97.5 Intake and Output 03/19/16 03/19/16 03/20/16 15:00 23:00 07:00 Intake Total 840.78 ml 1146.76 ml 1003.320 ml Output Total 0 ml 0 ml 0 ml Balance 840.78 ml 1146.76 ml 1003.320 ml Exam Review of Systems: CONSTITUTIONAL: No fevers, chills. PULMONARY: intubated CARDIOVASCULAR: No chest pain/palpitations GASTROINTESTINAL: No nausea/vomiting. GENITOURINARY: No hematuria/dysuria. MUSCULOSKELETAL: No myagias/arthalgias. PSYCHIATRIC: The patient denies depression. NEUROLOGIC: encephalopathic Constitutional: other (encephalopathic) Psych: no complaints Head: normocephalic ENMT: mucosa pink and moist Neck: jvd (9cm water), supple Respiratory: diminished breath sounds (at bases/B) Cardiovascular: regular rate and rhythm Gastrointestinal: non-tender, soft Musculoskeletal: muscle tone Extremities: pitting pedal edema (bilateral) Neurological: other (No focal deficits) Results Result Diagram: 03/20/16 0405 03/20/16 0405 Results 24 hrs Laboratory Tests Test 03/19/16 13:08 03/19/16 17:28 03/20/16 00:32 03/20/16 04:05 Bedside Glucose 98 97 106 Anion Gap 21 H Anisocytosis 1+ Band Neutrophils % 11.0 H Basophils # 0.3 H Basophils % 1.0 Blood Morphology Comment Blood Urea Nitrogen 83 H Calcium Level 8.8 Carbon Dioxide Level 28 Chloride Level 97 Creatinine 5.92 H Differential Comment MANUAL DIFF Eosinophils # 0.8 H Eosinophils % 3.0 Glucose Level 101 # Hematocrit 21.4 L Hemoglobin 7.2 L Hypochromasia 1+ Lymphocytes # 1.3 Lymphocytes % 5.0 L Mean Corpuscular Hemoglobin 26.9 L Mean Corpuscular Hemoglobin Concent 33.7 Mean Corpuscular Volume 79.9 L Mean Platelet Volume 7.8 Microcytosis 1+ Monocytes # 2.4 H Monocytes % 9.0 Myelocytes # 0.5 Myelocytes % 2.0 H Neutrophils # 18.4 H Neutrophils % 69.0 Platelet Count 292 Potassium Level 3.8 Red Blood Count 2.67 L Red Cell Distribution Width 18.1 H Sodium Level 142 White Blood Count 26.7 H Test 03/20/16 04:28 03/20/16 05:11 Bedside Glucose 111 112 Medications Medications Current Medications Ondansetron HCl (Zofran Inj) 4 mg Q6H PRN IV NAUSEA AND/OR VOMITING; Start 02/18/16 at 09:30 Acetaminophen (Tylenol Supp) 650 mg Q4H PRN OR PAIN LEVEL 1-3 OR FEVER Last administered on 02/24/16at 14:32; Admin Dose 650 MG; Start 02/18/16 at 09:30 Morphine Sulfate (morphine) 2 mg Q4H PRN IV PAIN LEVEL 7-10 Last administered on 03/11/16at 16:13; Admin Dose 2 MG; Start 02/18/16 at 09:30 Bisacodyl (Dulcolax Supp) 10 mg DAILY PRN OR CONSTIPATION; Start 02/18/16 at 09 :30 Metoprolol Tartrate (Lopressor) 5 mg Q4H PRN IV HR>55 Hold SBP<100 Last administered on 03/17/16 00:21; Admin Dose 5 MG; Start 02/21/16 at 11:30 IV Flush (NS 10 ml) 10 ml PRN PRN IV IV PROTOCOL; Start 02/21/16 at 18:30 Ferrous Sulfate (Feosol Liquid Cup) 300 mg BID GTB Last administered on 22:16; Admin Dose 300 MG; Start 02/22/16 at 10:00 Lorazepam (Ativan) 1 mg Q1H PRN IV ANXIETY Last administered on 03/13/16at 14: 10; Admin Dose 1 MG; Start 02/23/16 at 11:30 Miscellaneous Information 1 ea NOTE XX ; Start 02/23/16 at 23:15 Glucose (Glutose) 22.5 gm Q15M PRN PO DECREASED GLUCOSE; Start 02/23/16 at 23: 15 Dextrose (D50w Syringe) 50 ml Q15M PRN IV DECREASED GLUCOSE; Start 02/23/16 at 23:15 Glucagon (Glucagen) 1 mg Q15M PRN IM DECREASED GLUCOSE; Start 02/23/16 at 23:15 Glucose (Glutose) 15 gm Q15M PRN BUCCAL DECREASED GLUCOSE; Start 02/23/16 at 23 :15 Acetaminophen (Tylenol Tab) 650 mg Q6H PRN NGT PAIN AND OR ELEVATED TEMP Last administered on 03/13/16at 14:33; Admin Dose 650 MG; Start 03/06/16 at 11:30 Glucose (Glutose) 15 gm Q15M PRN NGT DECREASED GLUCOSE; Start 03/06/16 at 08: 45 Hydralazine HCl (Apresoline) 100 mg Q8 NGT Last administered on 03/16/16at 22: 53; Admin Dose 100 MG; Start 03/06/16 at 14:00 Metoprolol Tartrate (Lopressor) 150 mg Q8 NGT Last administered on 03/16/16at 22:52; Admin Dose 150 MG; Start 03/06/16 at 14:00 Hydralazine HCl (Apresoline) 10 mg Q4H PRN IV ELEVATED SYSTOLIC BP Last administered on 03/17/16 00:47; Admin Dose 10 MG; Start 03/06/16 at 16:00 Amlodipine Besylate (Norvasc) 10 mg DAILY PO Last administered on 03/14/16at 09 :52; Admin Dose 10 MG; Start 03/09/16 at 17:00 Minoxidil (Loniten) 10 mg BID NGT Last administered on 03/16/16at 20:28; Admin Dose 10 MG; Start 03/09/16 at 21:00 Insulin Aspart NOVOLOG *MODERATE* ALGORI... Q6 SC Last administered on 05:54; Admin Dose 2 UNIT; Start 03/10/16 at 06:00 Levetiracetam/ Dextrose (Keppra Iv/D5W) 115 ml @ 460 mls/hr Q12 IVPB Last administered on 03/19/16 22:16; Admin Dose 460 MLS/HR; Start 03/11/16 at 21:00 Diltiazem HCl (Cardizem) 90 mg Q8 PO Last administered on 03/16/16at 22:53; Admin Dose 90 MG; Start 03/12/16 at 14:00 Fluconazole 100 mg 100 mg DAILY PO Last administered on 03/19/16 08:19; Admin Dose 100 MG; Start 03/12/16 at 14:30 Piperacillin Sod/ Tazobactam Sod 50 ml @ 100 mls/hr Q8 IVPB Last administered on 03/20/16 05:09; Admin Dose 100 MLS/HR; Start 03/12/16 at 15:00 Fentanyl 1000 mcg/ Dextrose 100 ml @ 2.5 mls/hr TITRATE IV Last administered on 03/16/16at 21:04; Admin Dose 5 MLS/HR; Start 03/13/16 at 18:00 Pantoprazole 80 mg/Sodium Chloride 100 ml @ 10 mls/hr Q10H IV Last administered on 03/20/16 05:09; Admin Dose 10 MLS/HR; Start 03/14/16 at 10:30 Midazolam HCl 50 mg/Dextrose 50 ml @ 0 mls/hr TITRATE IV Last administered on 02:08; Admin Dose 7 MLS/HR; Start 03/15/16 at 11:30 Sodium Bicarbonate/ Dextrose/Sodium Chloride (Na Bicarb/D5-NS) 1,000 ml @ 100 mls/hr Q10H IV Last administered on 03/20/16 06:01; Admin Dose 100 MLS/HR; Start 03/17/16 at 09:30 Miscellaneous Information PLEASE REVIEW 2 CALCIUM MOTLEY... Q8H XX ; Start at 17:00 Dopamine HCl/ Dextrose (D5W) 250 ml @ 0 mls/hr TITRATE IV Last administered on 03/19/16 19:48; Admin Dose 5.97 MLS/HR; Start 03/19/16 at 18:00 JUNIAD PAZ Mar 20, 2016 12:49
--- NOTE | 2016-03-20 14:58 | PN ---
DATE: 03/20/2016 PALLIATIVE CARE PROGRESS NOTE Family members are all at the patient's bedside including friends. Everyone has said their prayers and have requested to remain in the room when patient is removed from the ventilator. The patient's mother could not travel to [place]. We will proceed with extubation compassionately and follow family members closely. Dictated By: CORNELIUS HUYNH MD, LP/EFRAIN Conf#: [id number] DID#: [id number]
[2016-03-20] MEDS ORDERED: morphine (DRIP) 100 MG/D5W 100 ML IV SCH (15:00)
--- NOTE | 2016-03-20 15:16 | PN ---
Date/Time of Note Date/Time of Note DATE: 03/20/16 TIME: 10:10 Assessment/Plan VTE Prophylaxis VTE Prophylaxis Intervention: contraindicated Lines/Catheters IV C[facility]ter Type ([facility] DAMON Urinary Cath still in place: Yes Assessment/Plan Chief Complaint/Hosp Course Assessment and plan 1. Cardiac arrest with encephalopathy. 2. Type B aortic dissection. 3. Accelerated hypertension. 3. Acute hypoxic respiratory failure. . 4. Aspiration pneumonia. 5. Acute kidney injury, most probably secondary to hemodynamics. 6. Left cephalic vein thrombosis. 7. Pulmonary embolism (02/29/2016). 8. Microcytic hypochromic anemia. 9. Acute encephalopathy, most probably metabolic in origin. 10. GI bleeding. 12. Severe combined metabolic and respiratory acidosis. Continue insulin bicarbonate Disposition and plan: Comfort measures now. Plan for terminal expiration. Continue supportive care Discussed plan of care with Dr. louise Morales were care time: 30 minutes Problems: Subjective 24 Hr Interval Summary Free Text/Dictation intubated, no purposeful response Exam/Review of Systems Vital Signs Vitals Vital Signs Date Time Temp Pulse Resp B/P Pulse Ox O2 Delivery O2 Flow Rate FiO2 03/20/16 14:45 111 30 94/67 83 03/20/16 14:00 Mechanical Ventilator 03/20/16 12:00 97.8 03/20/16 08:33 100 Intake and Output 03/19/16 03/19/16 03/20/16 15:00 23:00 07:00 Intake Total 840.78 ml 1146.76 ml 1003.320 ml Output Total 0 ml 0 ml 0 ml Balance 840.78 ml 1146.76 ml 1003.320 ml Exam General: Intubated Eyes: Pupils dilated. Anicteric sclera Neck: Supple nontender, no JVD Cardiac: S1, S2 auscultated, regular rhythm and rate Pulmonary: Diminished at lung bases GI: Soft, NG tube in place Extremities: Edema noted bilateral upper and lower extremities +2-3 Skin: Clean dry and intact Neurologic: Remains intubated. No purposeful response Results Result Diagram: 03/20/16 0405 03/20/16 0405 Results 24 hrs Laboratory Tests Test 03/19/16 17:28 03/20/16 00:32 03/20/16 04:05 03/20/16 04:28 Bedside Glucose 97 106 111 Anion Gap 21 H Anisocytosis 1+ Band Neutrophils % 11.0 H Basophils # 0.3 H Basophils % 1.0 Blood Morphology Comment Blood Urea Nitrogen 83 H Calcium Level 8.8 Carbon Dioxide Level 28 Chloride Level 97 Creatinine 5.92 H Differential Comment MANUAL DIFF Eosinophils # 0.8 H Eosinophils % 3.0 Glucose Level 101 # Hematocrit 21.4 L Hemoglobin 7.2 L Hypochromasia 1+ Lymphocytes # 1.3 Lymphocytes % 5.0 L Mean Corpuscular Hemoglobin 26.9 L Mean Corpuscular Hemoglobin Concent 33.7 Mean Corpuscular Volume 79.9 L Mean Platelet Volume 7.8 Microcytosis 1+ Monocytes # 2.4 H Monocytes % 9.0 Myelocytes # 0.5 Myelocytes % 2.0 H Neutrophils # 18.4 H Neutrophils % 69.0 Platelet Count 292 Potassium Level 3.8 Red Blood Count 2.67 L Red Cell Distribution Width 18.1 H Sodium Level 142 White Blood Count 26.7 H Test 03/20/16 05:11 Bedside Glucose 112 Medications Medications Current Medications Pantoprazole 80 mg/Sodium Chloride 100 ml @ 10 mls/hr Q10H IV Last administered on 03/20/16 05:09; Admin Dose 10 MLS/HR; Start 03/14/16 at 10:30 Sodium Bicarbonate 150 meq/Dextrose/ Sodium Chloride 1,000 ml @ 100 mls/hr Q10H IV Last administered on 03/20/16 06:01; Admin Dose 100 MLS/HR; Start at 09:30 Dopamine HCl 1600 mg/Dextrose 250 ml @ 0 mls/hr TITRATE IV Last administered on 03/19/16 19:48; Admin Dose 5.97 MLS/HR; Start 03/19/16 at 18:00 Morphine Sulfate/ Dextrose (morphine) 100 ml @ 3 mls/hr TITRATE IV Last administered on 03/20/16 15:03; Admin Dose 3 MLS/HR; Start 03/20/16 at 15:00 REJI WADE Mar 20, 2016 15:16
== END 2016-03-20 15:30 | disposition expired | DRG 870 ==
LOC: E/R 06:16 → ICU 09:14
PROVIDERS: ADMIT Student in an Organized Health Care Education/Training Program; ATTEND Student in an Organized Health Care Education/Training Program
PROC: 30233N1 Transfusion of Nonautologous Red Blood Cells into Peripheral Vein, Percutaneous Approach (ICD-10-PCS; 2016-02-18)
PROC: 5A1955Z Respiratory Ventilation, Greater than 96 Consecutive Hours (ICD-10-PCS; principal; 2016-02-21)
PROC: 02HV33Z Insertion of Infusion Device into Superior Vena Cava, Percutaneous Approach (ICD-10-PCS; 2016-02-21)
PROC: B548ZZA Ultrasonography of Superior Vena Cava, Guidance (ICD-10-PCS; 2016-02-21)
PROC: 0BH17EZ Insertion of Endotracheal Airway into Trachea, Via Natural or Artificial Opening (ICD-10-PCS; 2016-02-21)
PROC: 5A1955Z Respiratory Ventilation, Greater than 96 Consecutive Hours (ICD-10-PCS; 2016-03-10)
PROC: 06HM33Z Insertion of Infusion Device into Right Femoral Vein, Percutaneous Approach (ICD-10-PCS; 2016-03-15)
PROC: B54BZZA Ultrasonography of Right Lower Extremity Veins, Guidance (ICD-10-PCS; 2016-03-15)
PROC: 5A1D60Z (ICD-10-PCS; 2016-03-15)
DX: A41.9 Sepsis, unspecified organism (principal); I71.01 Dissection of thoracic aorta; J96.01 Acute respiratory failure with hypoxia; N17.0 Acute kidney failure with tubular necrosis; J69.0 Pneumonitis due to inhalation of food and vomit; G93.41 Metabolic encephalopathy; J18.9 Pneumonia, unspecified organism; G92 Toxic encephalopathy; I50.31 Acute diastolic (congestive) heart failure; I16.1 Hypertensive emergency; I31.3 Pericardial effusion (noninflammatory); I82.612 Acute embolism and thrombosis of superficial veins of left upper extremity; K92.2 Gastrointestinal hemorrhage, unspecified; E87.4 Mixed disorder of acid-base balance; B37.0 Candidal stomatitis; E87.0 Hyperosmolality and hypernatremia; E83.39 Other disorders of phosphorus metabolism; B96.20 Unspecified Escherichia coli [E. coli] as the cause of diseases classified elsewhere; I46.9 Cardiac arrest, cause unspecified; I95.9 Hypotension, unspecified; I12.9 Hypertensive chronic kidney disease with stage 1 through stage 4 chronic kidney disease, or unspecified chronic kidney disease; D50.9 Iron deficiency anemia, unspecified; R65.20 Severe sepsis without septic shock; R10.9 Unspecified abdominal pain; R60.1 Generalized edema; E87.6 Hypokalemia; F41.9 Anxiety disorder, unspecified; G40.909 Epilepsy, unspecified, not intractable, without status epilepticus; T46.5X5A Adverse effect of other antihypertensive drugs, initial encounter; R47.02 Dysphasia; Y95 Nosocomial condition; N18.9 Chronic kidney disease, unspecified
CPT/HCPCS: 31500; 36415; 36430; 36569; 36600; 70450; 70498; 71010; 71250; 71275; 74177; 76775; 76937; 80048; 80053; 80076; 80202; 81001; 81003; 82150; 82550; 82553; 82565; 82728; 82803; 82962; 83540; 83605; 83690; 83735; 84100; 84145; 84155; 84300; 84443; 84484; 84520; 85014; 85018; 85025; 85610; 85730; 86644; 86850; 86900; 86901; 86920; 87040; 87070; 87075; 87081; 87086; 89220; 90935; 92610; 92950; 93005; 93306; 93971; 94002; 94003; 94640; 94664; 94770; 95819; 96374; 96375; 96376; J1940; C1752; C9113; C9248; J0171; J0360; J0692; J0696; J1265; J1450; J1644; J1815; J1953; J2060; J2150; J2185; J2270; J2370; J2405; J2543; J2765; J2997; J3010; J3370; J3480; J7030; J7040; J7042; J7050; J7070; P9016; P9047; Q9967